=== PATIENT | male | born 1945 | race Caucasian/White ===

== ENCOUNTER 2018-06-12 10:37 | Emergency (ER) | payer MEDICAID ==
[~2018-06-12] VITALS: Wt 80.0 kg
[~2018-06-12 10:37] MED LIST: ACET500C5 PO; AUG875 PO; BACTDS PO; BENA20TA4 PO; CEPH-443 PO; CLIN300C10 PO; DOCU-144 PO; FAMO-96 PO; HUM100VI8 SQ; HYDR-3498 PO; LANT3I SC; PRED10TA PO; SIMV40TA3 PO; SULF500T45 PO
[2018-06-12 10:41] VITALS: RESP 18
--- NOTE | 2018-06-12 12:53 | ERD ---
ER Documentation Chief Complaint Chief Complaint left 2nd toe wound check HPI 72-year-old male with history of diabetes, well controlled, presents to the emergency department, complaining of 4 weeks with left third toe ulcer. The patient has a history of a second toe amputation. No fever, no chills, no purulent discharge. ROS All systems reviewed and are negative except as per history of present illness. Medications Home Meds Active Scripts Silver Sulfadiazine* (Silvadene*) 1% - 20 Gm Cream.gm., 1 APPLIC TOP DAILY, #1 TUB Prov:JESSIE WONG MD 06/12/18 Hydrocodone Bit-Acetaminophen* (Scalf*) 5-325 Mg Tab, 1 TAB PO Q4H PRN for PAIN, #14 TAB Prov:ALESIA BREWER PA-C 12/17/14 Clindamycin Hcl* (Clindamycin Hcl*) 300 Mg Capsule, 300 MG PO Q8 for infection for 7 Days, CAP Prov:ALESIA BREWER PA-C 12/17/14 Acetaminophen* (Tylophen*) 500 Mg Capsule, 1 CAP PO Q6H PRN for PAIN AND OR ELEVATED TEMP, #20 CAP Prov:DESHAWN ATKINS 12/09/14 Sulfamethoxazole-Trimethoprim* (Bactrim* DS) 800-160 Mg Tab, 1 TAB PO BID for 5 Days, TAB Prov:KAROL FISHMAN PA-C 11/29/14 Sulfamethoxazole-Trimethoprim* (Bactrim* DS) 800-160 Mg Tab, 1 TAB PO BID for 10 Days, TAB Prov:EVERETT SCHWAB PA-C 11/13/14 Cephalexin* (Keflex*) 500 Mg Capsule, 500 MG PO QID for 7 Days, CAP Prov:EVERETT SCHWAB PA-C 11/13/14 Docusate Sodium* (Colace*) 100 Mg Cap, 100 MG PO BID, #60 Prov:AMANDA GOMEZ MD 06/08/14 Amoxicillin-Clavulanate K* (Augmentin*) 875 Mg Tab, 875 MG PO BID, #28 TAB Prov:AMANDA GOMEZ MD 06/08/14 Prednisone (Prednisone) 10 Mg Tab, 30 MG PO DAILY, #30 TAB Prov:AMANDA GOMEZ MD 06/08/14 Insulin Glargine* (Lantus*) 100 Unit/Ml Soln, 35 UNIT SC HS, #2 Prov:AMANDA GOMEZ MD 06/08/14 Reported Medications Simvastatin (Simvastatin) 40 Mg Tablet, 40 MG PO DAILY, TAB 06/02/14 Sulfasalazine (Azulfidine) 500 Mg Tab, 500 MG PO TID, TAB 06/02/14 Famotidine* (Pepcid*) Unknown Strength Tablet, PO DAILY, TAB 06/02/14 Hum Insulin Nph/Reg Insulin Hm (Humulin 70-30 Vial) 100 Units/Ml Vial, SQ SLIDING SCALE, VIAL 03/05/14 Benazepril Hcl* (Benazepril Hcl*) 20 Mg Tablet, 20 MG PO DAILY, TAB 03/05/14 Allergies Allergies: Coded Allergies: No Known Allergy (Unverified , 06/02/14) PMhx/Soc History of Surgery: Yes (multiple billateral DIABETIC TOE AMPUTATIONs) Anesthesia Reaction: No Hx Neurological Disorder: Yes ( NEUROPATHY) Hx Respiratory Disorders: No Hx Cardiac Disorders: Yes (HTN / HYPERLIPEDEMIA) Hx Psychiatric Problems: No Hx Miscellaneous Medical Probl: Yes (CROHN'S/ COLITIS / Diabetes II / REFLUX) Hx Alcohol Use: No Hx Substance Use: No Hx Tobacco Use: No Smoking Status: Never smoker Physical Exam Vitals Vital Signs Date Temp Pulse Resp B/P (MAP) Pulse Ox O2 O2 Flow FiO2 Time Delivery Rate 06/12/18 98.3 73 18 110/62 99 10:41 (78) Physical Exam Const: No acute distress Head: Atraumatic Eyes: Normal Conjunctiva ENT: Normal External Ears, Nose and Mouth. Neck: Full range of motion. No meningismus. Resp: Clear to auscultation bilaterally Cardio: Regular rate and rhythm, no murmurs Abd: Soft, non tender, non distended. Normal bowel sounds Skin: No petechiae or rashes Back: No midline or flank tenderness Ext: Left foot: Second toe amputated. Round, clean ulcer on the distal phalanx of the third toe. No evidence of infection. Neur: Awake and alert Psych: Normal Mood and Affect Results 24 hrs Current Medications Medications Dose Sig/Flo Start Time Status Last (Trade) Ordered Route PRN Stop Time Admin Dose Reason Admin Silver 1 applic ONCE ONCE 06/12/18 Sulfadiazine TOP 13:00 (Thermazene 06/12/18 13:01 1% 25 Gm) Procedures/MDM vital signs stable, differential diagnosis include but not limited to: Diabetic ulcer with cellulitis, erysipelas, shingles, abscess. Low suspicion for acute systemic infectious process. Physical examination and clinical presentation consistent most likely with diabe tic ulcer of the third left toe without evidence of infection. During the ED course the patient remained stable, no new complaints. The patient received treatment with topical Silvadene and wound care. Results and clinical impression discussed with the patient who agrees with management. The patient is stable to be treated outpatient and will be discharged home. The patient was instructed to follow up with the primary care provider in the next 48h. If symptoms persist, worsen or new symptoms develop, then patient should return to the ED immediately. Instructions explained and given directly by me to the patient and relatives with acknowledgment and demonstrated understanding. Disclaimer: Inadvertent spelling and grammatical errors are likely due to EHR/di ctation software use and do not reflect on the overall quality of patient care. Also, please note that the electronic time recorded on this note does not necessarily reflect the actual time of the patient encounter. Departure Diagnosis: Primary Impression: Diabetic ulcer of toe of left foot Additional Impression: No infection or colonization with multidrug resistant organism Condition: Stable Additional Instructions: Muchas gerson por [facility] para schuler servicio. Esperamos que en schuler visita a la darnell de emergencia schuler problema medico haya sido solucionado y que se sienta mucho mejor. Para estar seguros que schuler mejoria sigue en proceso, le pedimos el favor de hacer tao kristie de seguimiento medico con schuler doctor primario en los proximos 2-4 capps. Lleve con usted estos documentos y las medicinas recetadas. Si tash sintomas empeoran, NO SE ESPERE, por favor regrese a darnell de emergencia INMEDIATAMENTE. En barbie que usted no tenga un mdico de atencin primaria: Llame al mdico o clnica comunitaria de referencia que aparece abajo gisselle las horas de consultorio para hacer tao kristie para que le vean. CLINICAS: [facility] [phone] [facility] [phone] [facility] [phone] [facility] [phone] [place] [id number] [phone] [facility] [phone] JESSIE STOREY MD Jun 12, 2018 12:53
[2018-06-12] MEDS ORDERED: SILV20CR12 TOP (12:57)
[2018-06-12] MEDS ORDERED: SILVER SULFADIAZINE 1% 25 GM CR TOP ONE (13:00)
[2018-06-12 13:55] VITALS: BP 173/77; PULSE 70
== END 2018-06-12 13:59 | disposition home or self-care (01) ==
LOC: FTE 10:37
DX: E11.621 Type 2 diabetes mellitus with foot ulcer (principal); I10 Essential (primary) hypertension; L97.519 Non-pressure chronic ulcer of other part of right foot with unspecified severity; Z79.4 Long term (current) use of insulin
CPT/HCPCS: Z7502; Z7610; 99283

== ENCOUNTER 2018-11-04 05:44 | Inpatient (IN) | payer MEDICAID ==
[~2018-11-04] VITALS: Ht 175.3 cm; Wt 85.3 kg
[~2018-11-04 05:44] MED LIST changes: +ASPI-817 PO; +ATOR-2 PO; +ATOR20TA38 PO; +BENA40TA56 PO; +ERGO500013 PO; +GABA300C16 PO; +Insulin Glargine SC; +METF-849 PO; +NEBI20TA2 PO; +NOVMIX SC; +NOVO3I SC; +OMEP20CA16 PO; +REPA1TAB14 PO; +SILV20CR12 TOP
[2018-11-04] MEDS ORDERED: ONDANSETRON 4 MG INJ IV PRN ×2 (08:00→09:00)
[2018-11-04] MEDS ORDERED: ACETAMINOPHEN 325 MG TAB PO PRN (08:00)
--- NOTE | 2018-11-04 08:06 | CONS ---
DATE OF ADMISSION: 11/04/2018 DATE OF CONSULTATION: 11/04/2018 TYPE OF CONSULTATION: Vascular HISTORY OF PRESENT ILLNESS: This is a 72-year-old diabetic hypertensive gentleman who had problems w ith his left 5th toe for quite a while, at least several months. About a month ago, it basically bec bubba gangrenous and he went to [facility]. He was there for several days, got some IV antibiotics. Courtney maki was sent home with p.o. ampicillin. His son brought him to the ER here today. Son works in the [facility] [employer] and asked me to take a look at him, because there is exposed bone. The gangrenous area is bro elenita down, the bone from the 5th toe was just sticking out at the base of the toe. The metatarsal hea d is exposed. He has no pain. He has peripheral neuropathy. He has never had any lower extremity a rterial interventions, denies any coronary disease. PAST MEDICAL HISTORY: Significant for again, diabetes, hypertension, peripheral arterial disease, le ft fifth toe gangrene. There is no history of kidney problems, but there have not been any labs done in several years. PAST SURGICAL HISTORY: Lipoma removal from the left chest wall. MEDICATIONS: Consist of: 1. Amoxicillin. 2. Benazepril. 3. Insulin. 4. Simvastatin. He has had a history of Crohn's disease, reflux. SOCIAL HISTORY: He is a nonsmoker. He does not drink or use any illicit drugs. FAMILY HISTORY: Significant for diabetes and hypertension. No history of coronary or peripheral art erial disease. ALLERGIES: No known drug allergies. REVIEW OF SYSTEMS: Currently denies any complaints. He has no chest pain or shortness of breath, no nausea, vomiting, diarrhea. No fever, no chills, no recent weight gain or weight loss. He only brianda alcides came in because his son noticed that the left fifth toe now has broken down and there is expose d bone. PHYSICAL EXAMINATION: GENERAL: He is an elderly gentleman. VITAL SIGNS: He has been afebrile. His blood pressure is 185/80, heart rate is 97, respiratory rate is 18, he is 97% sat. NECK: 2+ radial, brachial, carotid pulses bilaterally. LUNGS: Clear. HEART: Regular rate and rhythm. ABDOMEN: Soft, nontender, nondistended, he is obese. EXTREMITIES: He has good 2+ femoral and popliteal pulses bilaterally. Pedal pulses are not palpable . His feet are warm. On the right, there are no wounds. On the left, he has had the second toe amp utated. It was done many years ago. It is well healed. The fifth toe has just gangrene, right at t he base there is breakdown with exposure of the metatarsal head. There is a little bit of erythema t here around where the breakdown is. No odor, no drainage. IMPRESSION: Left 5th toe gangrene clearly has peripheral arterial disease. I am going to order some arterial studies of the lower extremities. Dr. Oneal is going to be consulted for podiatric evalu ation. I am going to schedule him for an angiogram in a few days and he is getting IV antibiotics. He is going to be admitted to the hospitalist, he is probably going to end up needing a distal bypass . Dictated By: KLEVER PIERRE/BOBO Conf#: [id number] DID#: [id number] CC: DEEPAK ONEAL DPM;*EndCC*
[2018-11-04] MEDS: PIPER-TAZO 3.375 GM IV (PMX) 100 ML IVPB SCH ×3 (09:00→17:43)
[2018-11-04] MEDS ORDERED: DOCUSATE SODIUM 100 MG CAP PO PRN (09:00)
[2018-11-04] MEDS ORDERED: GLUCOSE GEL 15 GRAM TUBE BUCCAL PRN (09:00)
[2018-11-04] MEDS: NEBIVOLOL 5 MG TAB PO SCH (09:00)
[2018-11-04] MEDS ORDERED: DEXTROSE 50% 50 ML SYRINGE IV PRN ×2 (09:00)
[2018-11-04] MEDS ORDERED: SOD CHLORIDE 0.9% 1,000 ML IV ONE (09:00)
[2018-11-04] MEDS ORDERED: BENAZEPRIL 40 MG TAB PO SCH (09:00)
[2018-11-04] MEDS ORDERED: NACL 0.9% 3 ML SYG IV SCH (09:00)
[2018-11-04] MEDS ORDERED: GLUCAGON 1 MG INJ IM PRN (09:00)
[2018-11-04] MEDS ORDERED: GLUCOSE GEL 15 GRAM TUBE PO PRN ×2 (09:00)
[2018-11-04] MEDS ORDERED: VANCOMYCIN IV PER PHARMACY XX SCH (09:00)
[2018-11-04] MEDS: INSULIN GLARGINE [LANTus] (100 UNITS/ML) SYG SC SCH ×2 (09:00→13:36)
--- NOTE | 2018-11-04 09:00 | ERD ---
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 The patient was [facility] ago where he received several days of antibiotics IV. The patient was discharged on oral ampicillin. Unfortunately, despite the outpatient antibiotic regimen, the patient's gangrene and necrosis has progressively been getting worse. At this time, there is exposed bone of the fifth phalanx and metatarsal on the left foot. The patient denies any pain. He does have a history of diabetic neuropathy, but he reports having sensation to his foot. The patient does not endorse a history of peripheral vascular disease. He does not endorse any alleviating or exacerbating factors. The patient is accompanied by his son, who reports that he is a patient of Dr. Lott. The patient denies feeling sick recently. The patient denies fever or chills. The patient has had no headache or vision changes. The patient does not endorse neck or back pain. The patient denies lightheadedness or dizziness. The patient has had no chest pain or trouble breathing. The patient denies nausea or vomiting. The patient denies abdominal pain. The patient denies changes to bowel movements or urination. The patient has had no focal deficits. The patient has had no weakness or numbness or tingling to the face or extremities. ROS All systems reviewed and are negative except as per history of present illness. Medications Home Meds Active Scripts Silver Sulfadiazine* (Silvadene*) 1% - 20 Gm Cream.gm., 1 APPLIC TOP DAILY, #1 TUB Prov:JESSIE WONG MD 06/12/18 Amoxicillin-Clavulanate K* (Augmentin*) 875 Mg Tab, 875 MG PO BID, #28 TAB Prov:AMANDA GOMEZ MD 06/08/14 Reported Medications Insulin Aspart (Novolog Mix (70/30)) 100 Units/Ml Soln, 28 SC with diinner, VIAL 11/04/18 Insulin Aspart (Novolog Mix (70/30)) 100 Units/Ml Soln, 38 SC WITH BREAKFAST, VIAL 11/04/18 Benazepril Hcl* (Benazepril Hcl*) 40 Mg Tablet, 40 MG PO DAILY, #30 TAB 11/04/18 Ergocalciferol (Vitamin D2) (VITAMIN D2) 50,000 Unit Capsule, 84555 UNIT PO weekly for saturdays, CAP 11/04/18 Omeprazole* (Omeprazole*) 20 Mg Capsule.dr, 20 MG PO DAILY, #30 CAP 11/04/18 Aspirin* (Aspirin* EC) 81 Mg Tablet.dr, 81 MG PO DAILY, TAB 11/04/18 Gabapentin* (Gabapentin*) 300 Mg Capsule, 300 MG PO BID, #60 CAP 11/04/18 Nebivolol Hcl* (Bystolic*) 20 Mg Tablet, 20 MG PO DAILY, #30 TAB 11/04/18 Atorvastatin Calcium* (Atorvastatin Calcium*) 20 Mg Tablet, 20 MG PO QHS, #30 TAB 11/04/18 Sulfasalazine (Azulfidine) 500 Mg Tab, 1000 MG PO TID, TAB 06/02/14 Discontinued Reported Medications Simvastatin (Simvastatin) 40 Mg Tablet, 40 MG PO DAILY, TAB 06/02/14 Famotidine* (Pepcid*) Unknown Strength Tablet, PO DAILY, TAB 06/02/14 Hum Insulin Nph/Reg Insulin Hm (Humulin 70-30 Vial) 100 Units/Ml Vial, SQ SLIDING SCALE, VIAL 03/05/14 Benazepril Hcl* (Benazepril Hcl*) 20 Mg Tablet, 20 MG PO DAILY, TAB 03/05/14 Discontinued Scripts Hydrocodone Bit-Acetaminophen* (Campti*) 5-325 Mg Tab, 1 TAB PO Q4H PRN for PAIN, #14 TAB Prov:ALESIA BREWER PA-C 12/17/14 Clindamycin Hcl* (Clindamycin Hcl*) 300 Mg Capsule, 300 MG PO Q8 for infection for 7 Days, CAP Prov:ALESIA BREWERC 12/17/14 Acetaminophen* (Tylophen*) 500 Mg Capsule, 1 CAP PO Q6H PRN for PAIN AND OR ELEVATED TEMP, #20 CAP Prov:DESHAWN ATKINS 12/09/14 Sulfamethoxazole-Trimethoprim* (Bactrim* DS) 800-160 Mg Tab, 1 TAB PO BID for 5 Days, TAB Prov:KAROL FISHMAN PA-C 11/29/14 Sulfamethoxazole-Trimethoprim* (Bactrim* DS) 800-160 Mg Tab, 1 TAB PO BID for 10 Days, TAB Prov:EVERETT SCHWAB PA-C 11/13/14 Cephalexin* (Keflex*) 500 Mg Capsule, 500 MG PO QID for 7 Days, CAP Prov:EVERETT SCHAWB PA-C 11/13/14 Docusate Sodium* (Colace*) 100 Mg Cap, 100 MG PO BID, #60 Prov:AMANDA GOMEZ MD 06/08/14 Prednisone (Prednisone) 10 Mg Tab, 30 MG PO DAILY, #30 TAB Prov:AMANDA GOMEZ MD 06/08/14 Insulin Glargine* (Lantus*) 100 Unit/Ml Soln, 35 UNIT SC HS, #2 Prov:AMANDA GOMEZ MD 06/08/14 Allergies Allergies: Coded Allergies: No Known Allergy (Unverified , 11/04/18) PMhx/Soc History of Surgery: Yes (multiple billateral DIABETIC TOE AMPUTATIONs) Anesthesia Reaction: No Hx Neurological Disorder: Yes ( NEUROPATHY) Hx Respiratory Disorders: No Hx Cardiac Disorders: Yes (HTN / HYPERLIPEDEMIA) Hx Psychiatric Problems: No Hx Miscellaneous Medical Probl: Yes (CROHN'S/ COLITIS / Diabetes II / REFLUX) Hx Alcohol Use: No Hx Substance Use: No Hx Tobacco Use: No Smoking Status: Never smoker FmHx Family History: diabetes Physical Exam Vitals Vital Signs Date Temp Pulse Resp B/P (MAP) Pulse Ox O2 O2 Flow FiO2 Time Delivery Rate 11/04/18 98.1 84 18 164/76 97 Room Air 08:34 (105) 11/04/18 98.6 97 18 185/80 97 05:53 (115) Physical Exam Const: No acute distress Head: Atraumatic Eyes: Normal Conjunctiva ENT: Normal External Ears, Nose and Mouth. Neck: Full range of motion. No meningismus. Resp: Clear to auscultation bilaterally Cardio: Regular rate and rhythm, no murmurs Abd: Soft, non tender, non distended. Normal bowel sounds Skin: No petechiae or rashes Back: No midline or flank tenderness Ext: No cyanosis, or edema. Gangrenous necrotic fifth digit of the left foot with exposed bone at the site of the distal metatarsal. Neur: Awake and alert Psych: Normal Mood and Affect Result Diagram: 11/04/18 0711/04/18 0725 Results 24 hrs Laboratory Tests Test 11/04/18 07:25 White Blood Count 6.8 10^3/ul Red Blood Count 4.00 10^6/ul Hemoglobin 12.1 g/dl Hematocrit 37.6 % Mean Corpuscular Volume 94.0 fl Mean Corpuscular Hemoglobin 30.3 pg Mean Corpuscular Hemoglobin Concent 32.2 g/dl Red Cell Distribution Width 12.8 % Platelet Count 271 10^3/UL Mean Platelet Volume 10.1 fl Immature Granulocytes % 0.400 % Neutrophils % 68.0 % Lymphocytes % 18.1 % Monocytes % 9.4 % Eosinophils % 3.2 % Basophils % 0.9 % Nucleated Red Blood Cells % 0.0 /100WBC Immature Granulocytes # 0.030 10^3/ul Neutrophils # 4.6 10^3/ul Lymphocytes # 1.2 10^3/ul Monocytes # 0.6 10^3/ul Eosinophils # 0.2 10^3/ul Basophils # 0.1 10^3/ul Nucleated Red Blood Cells # 0.0 10^3/ul Erythrocyte Sedimentation Rate 85 mm/Hr Sodium Level 133 mmol/L Potassium Level 5.8 mmol/L Chloride Level 97 mmol/L Carbon Dioxide Level 27 mmol/L Anion Gap 9 Blood Urea Nitrogen 20 mg/dl Creatinine 1.31 mg/dl Est Glomerular Filtrat Rate mL/min mL/min Glucose Level 335 mg/dl Calcium Level 9.2 mg/dl C-Reactive Protein 1.9 mg/dl Current Medications Medications Dose Sig/Flo Start Time Status Last (Trade) Ordered Route PRN Stop Time Admin Dose Reason Admin Ondansetron 4 mg BRIDGE ORDER 11/04/18 HCl (Zofran PRN IV 08:00 Inj) NAUSEA/VOMITI 11/05/18 07:59 NG 650 mg ER BRIDGE 11/04/18 Acetaminophen PRN PO 08:00 (Tylenol .MILD PAIN 11/05/18 07:59 Tab) 1-3 OR TEMP Aspirin 81 mg DAILY PO 11/04/18 (Halfprin) 09:00 20 mg QHS PO 11/04/18 Atorvastatin 21:00 Calcium (Lipitor) Benazepril 40 mg DAILY PO 11/04/18 DC HCl 09:00 (Lotensin) 11/04/18 09:00 50,000 unit Sa PO 11/09/18 Ergocalcifero 09:00 l (Drisdol) Gabapentin 300 mg BID PO 11/04/18 (Neurontin) 09:00 20 mg DAILY PO 11/04/18 UNV Miscellaneous 09:00 Medication (Bystolic) 20 mg DAILY PO 11/04/18 UNV Miscellaneous 09:00 Information Hydralazine 25 mg TID PO 11/04/18 UNV HCl 09:00 (Apresoline) Clonidine 0.1 mg Q6H PRN 11/04/18 (Catapres) PO SBP>160 09:00 IV Flush 3 ml PER 11/04/18 UNV (NS 3 ml) PROTOCOL IV 09:00 Ondansetron 4 mg Q6H PRN 11/04/18 UNV HCl (Zofran IV 09:00 Inj) NAUSEA/VOMITI NG 650 mg Q6H PRN 11/04/18 Acetaminophen PO .PAIN 1-3 09:00 (Tylenol OR TEMP Tab) 1 tab Q6H PRN 11/04/18 UNV Acetaminophen PO .MOD PAIN 09:00 / 4-6 Hydrocodone Bitart (Campti (5/325)) Docusate 100 mg Q12H PRN 11/04/18 Sodium PO 09:00 (Colace) .CONSTIPATION Heparin 5,000 unit Q12 SC 11/04/18 UNV Sodium 09:00 (Porcine) (Heparin (5000 Units/1ml)) Discontinue ONCE ONCE 11/04/18 UNV Miscellaneous current oral XX 09:00 sulfonylur... 11/04/18 09:01 Information (* Miscellaneous Pharmacy Order) Diagnostic 1 ea 02 XX 11/05/18 UNV Test (Pha) 02:00 (Accu-Chek) Insulin 26 units DAILY@0800 11/04/18 UNV Glargine SC 09:00 (Lantus) Insulin 4 unit WITH MEALS 11/04/18 UNV Aspart SC 12:00 (Novolog Insulin Pen) ONCE ONCE 11/04/18 UNV Miscellaneous HYPOGLYCEMIA XX 09:00 PROTOCOL 11/04/18 09:01 Information w... (* Miscellaneous Pharmacy Order) Insulin NOVOLOG WITH MEALS 11/04/18 UNV Aspart *MILD* BEDTIME SC 12:00 (Novolog ALGORITHM Insulin Pen) Discontinue ONCE ONCE 11/04/18 UNV Miscellaneous all previ... XX 09:00 11/04/18 09:01 Information (* Miscellaneous Pharmacy Order) Piperacillin 100 ml @ Q6 IVPB 11/04/18 UNV Sod/ 200 mls/hr 12:00 Tazobactam Sod Vancomycin VANCOMYCIN PER 11/04/18 UNV HCl (Vanco PER PHARMACY PROTOCOL XX 09:00 Iv Per Pharmacy) Procedures/MDM MDM The patient's presentation warrants further investigation. Previous medical records, if available, were reviewed. LABS The patient's laboratory testing was obtained and reviewed. No emergent treatment was required unless described below. CBC: No E/o systemic infection or thrombocytopenia. Normocytic anemia, not emergent. Chemistry: No E/o severe acidosis or alkalosis or liver disease. Mild hyperkalemia, not emergent. Elevated creatinine, likely chronic kidney disease. Hyperglycemia without DKA. ESR/CRP: Elevated IMAGING Imaging and Radiology interpretation reviewed. CXR FINDINGS: The patient is status post amputation of the left second distal metatarsal and phalanges. In addition the patient is status post amputation of the left fifth middle and distal phalanges. Severe degenerative changes are noted of the first metatarsal phalangeal joint and the first interphalangeal joint. Soft tissue swelling is noted of the left great toe. No definite evidence for acute fractures dislocations or osseous destruction is currently noted to suggest osteomyelitis at this time. MRI with contrast is a more sensitive imaging modality to diagnosis. Vascular calcifications are present. Calcaneal spurs are noted at the Achilles tendon and the plantar surface. IMPRESSION: 1. No acute fractures , dislocations or evidence for osseous destruction to suggest osteomyelitis at this time. Consider MR with contrast as a more sensitive imaging modality for osteomyelitis. 2. Status post remote amputation of the left second distal metatarsal and phalanges of the left fifth middle and distal phalanges 3. Vascular calcifications 4. Severe degenerative changes 5. Vascular calcifications 6. Calcaneal spurs Electronically viewed and signed by Ana Paula Doherty MD, MD on 11/04/2018 07:42 TREATMENT/DISPOSITION The patient presents for failed outpatient management of a left fifth digit diabetic ulcer with gangrene and necrosis and now exposed bone. The patient was given a dose of vancomycin in the emergency department. The patient's vascular surgeon, Dr. Lott, was consulted on the case. He evaluated the patient in the emergency department and will follow the case in the hospital. Dr. Oneal of podiatry was also consulted to evaluate the patient. There is also evidence of chronic kidney disease with mild hyperkalemia. This does not require emergent treatment. This may be further assessed in the hospital. The patient does have hyperglycemia, but there is no evidence of DKA. The patient was given IV fluids in the emergency department as well. ADMISSION At this time, I feel that the patient requires admission for further evaluation and management. The patient will be admitted to panel in accordance with the patient's insurance. The patient was accepted by Dr. Jaimes at 7:32 AM on November 04, 2018. Disclaimer: Inadvertent spelling and grammatical errors are likely due to EHR/dictation software use and do not reflect on the overall quality of patient care. Note that the electronic time recorded on this note does not necessarily reflect the actual time of the patient encounter. Departure Diagnosis: Primary Impression: Gangrene of toe of left foot Additional Impressions: Diabetic ulcer of toe of left foot with necrosis of bone Diabetes mellitus type: other specified (including NOEMI) Qualified Codes: E13.621 - Other specified diabetes mellitus with foot ulcer; L97.524 - Non- pressure chronic ulcer of other part of left foot with necrosis of bone Failure of outpatient treatment Elevated erythrocyte sedimentation rate Elevated C-reactive protein (CRP) Chronic kidney disease Chronic kidney disease stage: unspecified stage Qualified Codes: N18.9 - Chronic kidney disease, unspecified Hyperkalemia Normocytic anemia Condition: Serious NADINE POWELL MD Nov 04, 2018 08:59
--- NOTE | 2018-11-04 09:01 | HP ---
Date/Time of Note Date/Time of Note DATE: 11/04/18 TIME: 08:51 Assessment/Plan VTE Prophylaxis Pharmacological prophylaxis: heparin Assessment/Plan Hospital Course SUBJECTIVE: Seen patient in ER. No acute distress. OBJECTIVE: Vital signs-see below PHYSICAL EXAM: Constitutional: Adequately built,not in acute distress. HEENT: Head atraumatic and normocephalic. Eyes: Extraocular muscles intact. Anicteric sclerae. Pupils equal bilaterally, reactive to light. NECK: Supple without lymph node. CHEST: Clear and good breath sounds equally. No wheezing. No rhonchi. HEART: S1, S2. Regular rate and rhythm. ABDOMEN: Soft/non tender with no rebound tenderness. Bowel sounds were present. EXTREMITIES: Left second toe amputated. Right fifth toe with gangrene/exposure of bone. Erythema/swelling around the base.no DP pulse appreciated both side. Palpable PT bilaterally. No cyanosis, clubbing or edema. NEUROLOGIC: Alert and oriented x3. No focal deficit. No sensory deficit. PSYCHOSOCIAL: No signs of depression. INTEGUMENTARY: No open wounds. ASSESSMENT AND PLAN:72 yo M w/htn, dm2, toe amputations, neuropathy,dlp, PAD, rt 5th toe ulcer here w/worsening rt 5th toe gangrenosus ulcer.. Right fifth toe gangrenous ulcer -Appreciate vascular recommendation and plan is arterial studies with tentative plan for angiogram with likely need for bypass -We will also request podiatry consultation -MRI to rule out osteomyelitis -Start empiric ABX regimen with Zosyn/vancomycin -Wound cultures, blood cultures to follow -Wound care -Glycemic management Poorly controlled DMII -Basal/bolus insulin -A1c Acute kidney injury -Patient likely may have CKD -Obtain renal ultrasound -Hold SHANAE inhibitors -Gentle fluids Hyperkalemia likely 2/2 SHANAE inhibitors -Hold SHANAE inhibitors and monitor K level closely. -We will give a dose of Kayexalate Essential hypertension -Hold lisinopril in light of acute kidney injury and hyperkalemia -Continue beta-blockers with addition of hydralazine -PRN clonidine Peripheral neuropathy -Resume gabapentin Dyslipidemia -Resume statin Chronic anemia -Stable H&H. Monitor DVT prophylaxis: Heparin PUD prophylaxis: PPI/H2 blockers Rest of the management depend on clinical course. Approximately 60 m spent on this history and physical. Patient was seen in collaboration with . Result Diagram: 6/17/19 0725 11/04/18 0725 Results 24hrs Laboratory Tests Test 11/04/18 07:25 White Blood Count 6.8 Red Blood Count 4.00 L Hemoglobin 12.1 L Hematocrit 37.6 L Mean Corpuscular Volume 94.0 Mean Corpuscular Hemoglobin 30.3 Mean Corpuscular Hemoglobin Concent 32.2 Red Cell Distribution Width 12.8 Platelet Count 271 Mean Platelet Volume 10.1 Immature Granulocytes % 0.400 Neutrophils % 68.0 Lymphocytes % 18.1 Monocytes % 9.4 Eosinophils % 3.2 Basophils % 0.9 Nucleated Red Blood Cells % 0.0 Immature Granulocytes # 0.030 Neutrophils # 4.6 Lymphocytes # 1.2 Monocytes # 0.6 Eosinophils # 0.2 Basophils # 0.1 Nucleated Red Blood Cells # 0.0 Erythrocyte Sedimentation Rate 85 H Sodium Level 133 L Potassium Level 5.8 H Chloride Level 97 Carbon Dioxide Level 27 Anion Gap 9 Blood Urea Nitrogen 20 Creatinine 1.31 H Est Glomerular Filtrat Rate mL/min Glucose Level 335 H Calcium Level 9.2 C-Reactive Protein 1.9 H HPI/ROS Admit Date/Time Admit Date/Time Hx of Present Illness This is a 72-year-old Dominican-speaking male with a past medical history of type 2 diabetes, Dyslipidemia, peripheral arterial disease, hypertension, diabetic neuropathy, left second toe amputation, chronic left fifth toe ulcer, presented to the emergency room with worsening left fifth toe ulcers. Patient was apparently admitted at [facility] where he was treated with IV antibiotics and was sent home. However, patient's wound did not get improved and he started to notice exposed bone with development of gangrene. Patient denied numbness, tingling, fever, chills, dizziness, headache, chest pain, palpi tation, nausea, vomiting, abdominal pain, diarrhea, constipation or other constitutional symptoms. Initial labs showed hemoglobin 12.1, hematocrit 37.6, sodium 133, potassium 5.8, creatinine 1.31, glucose 335 and a C-reactive protein 1.9. Foot x-ray showed no fractures or osseous destruction to suggest any osteomyelitis. ROS A 12 point review of system was assessed and is negative other than what is mentioned in HPI PMH/Family/Social Past Medical History See HPI Medications Current Medications Ondansetron HCl (Zofran Inj) 4 mg BRIDGE ORDER PRN IV NAUSEA/VOMITING; Start 11/04/18 at 08:00; Stop 11/05/18 at 07:59 Acetaminophen (Tylenol Tab) 650 mg ER BRIDGE PRN PO .MILD PAIN 1-3 OR TEMP; Start 11/04/18 at 08:00; Stop 11/05/18 at 07:59 Aspirin (Halfprin) 81 mg DAILY PO ; Start 11/04/18 at 09:00 Atorvastatin Calcium (Lipitor) 20 mg QHS PO ; Start 11/04/18 at 21:00 Ergocalciferol (Drisdol) 50,000 unit SUNDAY PO ; Start 11/04/18 at 09:00; Status UNV Gabapentin (Neurontin) 300 mg BID PO ; Start 11/04/18 at 09:00; Status UNV Miscellaneous Medication (Bystolic) 20 mg DAILY PO ; Start 11/04/18 at 09:00; Status UNV Miscellaneous Information 20 mg DAILY PO ; Start 11/04/18 at 09:00; Status UNV Hydralazine HCl (Apresoline) 25 mg TID PO ; Start 11/04/18 at 09:00; Status UNV Clonidine (Catapres) 0.1 mg Q6H PRN PO SBP>160; Start 11/04/18 at 09:00 Coded Allergies: No Known Allergy (Unverified , 11/04/18) Past Surgical History See HPI Social History Denied history of alcohol, smoking or illicit drug use Smoking Status: Never smoker Exam/Review of Systems Vital Signs Vitals Vital Signs Date Temp Pulse Resp B/P (MAP) Pulse Ox O2 O2 Flow FiO2 Time Delivery Rate 11/04/18 98.1 84 18 164/76 97 Room Air 08:34 (105) KARLA LAIRD NP Nov 04, 2018 09:01
[2018-11-04] MEDS ORDERED: VANCOMYCIN HCL 1.75 GM in SOD CHLORIDE 0.9% 500 ML IVPB SCH (10:00)
[2018-11-04 10:15] VITALS: BP 99/57; PULSE 72; RESP 18
[2018-11-04 10:21] VITALS: Ht 175.3 cm; Wt 85.3 kg
[2018-11-04] MEDS ORDERED: NA POLYST SULFON 15 GM/60 ML BTL PO ONE (10:30)
[2018-11-04] MEDS ORDERED: SODIUM POLYSTYRENE 15 GM KIT (POWDER + SORBITOL) PO ONE (10:30)
[2018-11-04] MEDS ORDERED: SOD CHLORIDE 0.9% 1,000 ML IV SCH (10:30)
[2018-11-04] MEDS: INSULIN ASPART [NOVOLOG] 3 ML PEN SC SCH ×5 (12:35→20:35)
[2018-11-04] MEDS: HEPARIN 5,000 UNIT/1 ML VIAL SC SCH ×2 (12:41→20:39)
[2018-11-04] MEDS: PANTOPRAZOLE (EC) 40 MG TAB PO SCH (12:42)
[2018-11-04] MEDS: GABAPENTIN 300 MG CAP PO SCH ×2 (12:42→20:36)
[2018-11-04] MEDS: ASPIRIN (EC) 81 MG TAB PO SCH (12:42)
--- NOTE | 2018-11-04 13:40 | CONS ---
Assessment/Plan Assessment/Plan Assessment/Plan (Daily) Left foot gangrene Left foot diabetic ulcer PAD DM2 insulin dependent with peripheral neuropathy Hx of left foot 2nd digit amputation Dyslipidemia HTN Plan: Patient was seen and examined. Reviewed X-ray findings with no sign of soft tissue gas/emphysema. Appreciate vascular surgery input and patient is planned for intervention. Patient will benefit from left 5th digit amputation after vascular procedure. Continue with IV abx per recommendations. Daily betadine d ressing changes to the left foot and offload with pillows to prevent heel ulcerations. Wound cultures to be obtained. Tight glycemic control. Consultation Date/Type/Reason Admit Date/Time Date/Time of Note DATE: 11/04/18 TIME: 13:37 Hx of Present Illness 72 y/o diabetic M patient presents to the floor with left foot dry gangrene of the left 5th digit. Per patient's son the wound began approximately 3 weeks ago. He had attempted conservative management with antibiotics and was previously seen at [facility] for treatment. Over time, patient's son reported that the wound was not improving and brought patient into the hospital at [facility]. The son reported that since yesterday was Father's day he waited and extra day to bring patient to hospital. The patient's son relates that his father did receive new diabetic shoe gear which may have caused friction irritation leading to the ulceration. The patient denies f/c/n/v no chest pains or shortness of breath. ROS negative except for HPI Past Medical History type 2 diabetes, Dyslipidemia, peripheral arterial disease, hypertension, diabetic neuropathy, left second toe amputation, chronic left fifth toe ulcer Home Meds Active Scripts Silver Sulfadiazine* (Silvadene*) 1% - 20 Gm Cream.gm., 1 APPLIC TOP DAILY, #1 TUB Prov:JESSIE WONG MD 06/12/18 Amoxicillin-Clavulanate K* (Augmentin*) 875 Mg Tab, 875 MG PO BID, #28 TAB Prov:AMANDA GOMEZ MD 06/08/14 Reported Medications Insulin Aspart (Novolog Mix (70/30)) 100 Units/Ml Soln, 28 SC with diinner, VIAL 11/04/18 Insulin Aspart (Novolog Mix (70/30)) 100 Units/Ml Soln, 38 SC WITH BREAKFAST, VIAL 11/04/18 Benazepril Hcl* (Benazepril Hcl*) 40 Mg Tablet, 40 MG PO DAILY, #30 TAB 11/04/18 Ergocalciferol (Vitamin D2) (VITAMIN D2) 50,000 Unit Capsule, 94512 UNIT PO weekly for saturdays, CAP 11/04/18 Omeprazole* (Omeprazole*) 20 Mg Capsule.dr, 20 MG PO DAILY, #30 CAP 11/04/18 Aspirin* (Aspirin* EC) 81 Mg Tablet.dr, 81 MG PO DAILY, TAB 11/04/18 Gabapentin* (Gabapentin*) 300 Mg Capsule, 300 MG PO BID, #60 CAP 11/04/18 Nebivolol Hcl* (Bystolic*) 20 Mg Tablet, 20 MG PO DAILY, #30 TAB 11/04/18 Atorvastatin Calcium* (Atorvastatin Calcium*) 20 Mg Tablet, 20 MG PO QHS, #30 TAB 11/04/18 Sulfasalazine (Azulfidine) 500 Mg Tab, 1000 MG PO TID, TAB 06/02/14 Discontinued Reported Medications Simvastatin (Simvastatin) 40 Mg Tablet, 40 MG PO DAILY, TAB 06/02/14 Famotidine* (Pepcid*) Unknown Strength Tablet, PO DAILY, TAB 06/02/14 Hum Insulin Nph/Reg Insulin Hm (Humulin 70-30 Vial) 100 Units/Ml Vial, SQ SLIDING SCALE, VIAL 03/05/14 Benazepril Hcl* (Benazepril Hcl*) 20 Mg Tablet, 20 MG PO DAILY, TAB 03/05/14 Discontinued Scripts Hydrocodone Bit-Acetaminophen* (Abrams*) 5-325 Mg Tab, 1 TAB PO Q4H PRN for PAIN, #14 TAB Prov:ALESIA BREWER PA-C 12/17/14 Clindamycin Hcl* (Clindamycin Hcl*) 300 Mg Capsule, 300 MG PO Q8 for infection for 7 Days, CAP Prov:ALESIA BREWER PA-C 12/17/14 Acetaminophen* (Tylophen*) 500 Mg Capsule, 1 CAP PO Q6H PRN for PAIN AND OR ELEVATED TEMP, #20 CAP Prov:DESHAWN ATKINS 12/09/14 Sulfamethoxazole-Trimethoprim* (Bactrim* DS) 800-160 Mg Tab, 1 TAB PO BID for 5 Days, TAB Prov:KAROL FISHMAN PA-C 11/29/14 Sulfamethoxazole-Trimethoprim* (Bactrim* DS) 800-160 Mg Tab, 1 TAB PO BID for 10 Days, TAB Prov:EVERETT SCHWAB PA-C 11/13/14 Cephalexin* (Keflex*) 500 Mg Capsule, 500 MG PO QID for 7 Days, CAP Prov:EVERETT SCHWAB PA-C 11/13/14 Docusate Sodium* (Colace*) 100 Mg Cap, 100 MG PO BID, #60 Prov:AMANDA GOMEZ MD 06/08/14 Prednisone (Prednisone) 10 Mg Tab, 30 MG PO DAILY, #30 TAB Prov:AMANDA GOMEZ MD 06/08/14 Insulin Glargine* (Lantus*) 100 Unit/Ml Soln, 35 UNIT SC HS, #2 Prov:AMANDA GOMEZ MD 06/08/14 Medications Current Medications Aspirin (Halfprin) 81 mg DAILY PO ; Start 11/04/18 at 09:00 Atorvastatin Calcium (Lipitor) 20 mg QHS PO ; Start 11/04/18 at 21:00 Ergocalciferol (Drisdol) 50,000 unit Sa PO ; Start 11/09/18 at 09:00 Gabapentin (Neurontin) 300 mg BID PO ; Start 11/04/18 at 09:00 Miscellaneous Medication (Bystolic) 20 mg DAILY PO ; Start 11/04/18 at 09:00 Pantoprazole (Protonix Tab) 40 mg DAILY PO ; Start 11/04/18 at 09:00 Hydralazine HCl (Apresoline) 25 mg TID PO ; Start 11/04/18 at 09:00 Clonidine (Catapres) 0.1 mg Q6H PRN PO SBP>160; Start 11/04/18 at 09:00 IV Flush (NS 3 ml) 3 ml PER PROTOCOL IV ; Start 11/04/18 at 09:00 Ondansetron HCl (Zofran Inj) 4 mg Q6H PRN IV NAUSEA/VOMITING; Start 11/04/18 at 09:00 Acetaminophen (Tylenol Tab) 650 mg Q6H PRN PO .PAIN 1-3 OR TEMP; Start 11/04/18 at 09:00 Acetaminophen/ Hydrocodone Bitart (Abrams (5/325)) 1 tab Q6H PRN PO .MOD PAIN 4- 6; Start 11/04/18 at 09:00 Docusate Sodium (Colace) 100 mg Q12H PRN PO .CONSTIPATION; Start 11/04/18 at 09:00 Heparin Sodium (Porcine) (Heparin (5000 Units/1ml)) 5,000 unit Q12 SC ; Start 11/04/18 at 09:00 Diagnostic Test (Pha) (Accu-Chek) 1 ea 02 XX ; Start 11/05/18 at 02:00 Insulin Glargine (Lantus) 26 units DAILY@0800 SC ; Start 11/04/18 at 09:00 Insulin Aspart (Novolog Insulin Pen) 4 unit WITH MEALS SC ; Start 11/04/18 at 11:30 Insulin Aspart (Novolog Insulin Pen) NOVOLOG *MILD* ALGORITHM WITH MEALS BEDTIME SC ; Start 11/04/18 at 12:00 Piperacillin Sod/ Tazobactam Sod 100 ml @ 200 mls/hr Q6 IVPB ; Start 11/04/18 at 09:00 Vancomycin HCl (Vanco Iv Per Pharmacy) VANCOMYCIN PER PHARMACY PER PROTOCOL XX ; Start 11/04/18 at 09:00 Miscellaneous Information 1 ea NOTE XX ; Start 11/04/18 at 09:00 Glucose (Glutose) 15 gm Q15M PRN PO DECREASED GLUCOSE; Start 11/04/18 at 09:00 Glucose (Glutose) 22.5 gm Q15M PRN PO DECREASED GLUCOSE; Start 11/04/18 at 09:00 Dextrose (D50w Syringe) 25 ml Q15M PRN IV DECREASED GLUCOSE; Start 11/04/18 at 09:00 Dextrose (D50w Syringe) 50 ml Q15M PRN IV DECREASED GLUCOSE; Start 11/04/18 at 09:00 Glucagon (Glucagen) 1 mg Q15M PRN IM DECREASED GLUCOSE; Start 11/04/18 at 09:00 Glucose (Glutose) 15 gm Q15M PRN BUCCAL DECREASED GLUCOSE; Start 11/04/18 at 09:00 Vancomycin HCl 1.75 gm/Sodium Chloride 500 ml @ 125 mls/hr ONCE IVPB ; Start 11/04/18 at 10:00; Stop 11/04/18 at 13:59 Vancomycin HCl 1.25 gm/Sodium Chloride 250 ml @ 83.333 mls/ hr Q24H IVPB ; Start 11/05/18 at 10:00 Sodium Chloride 1,000 ml @ 75 mls/hr [id number] IV Last administered on 11/04/18at 12:02; Admin Dose 75 MLS/HR; Start 11/04/18 at 10:30; Stop 11/04/18 at 23:49 Allergies: Coded Allergies: No Known Allergy (Unverified , 11/04/18) Past Surgical History left 2nd digit amputation. Family History Significant Family History: no pertinent family hx Social History Smoking Status: Never smoker Exam/Review of Systems Exam Vitals Vital Signs Date Temp Pulse Resp B/P (MAP) Pulse Ox O2 O2 Flow FiO2 Time Delivery Rate 11/04/18 97.8 72 18 99/57 (71 96 10:15 11/04/18 Room Air 08:34 Exam Unable to palpate DP/PT and popliteal pulses Absent protective sensations Left foot 5th digit gangrene with exposed bone, mild erythema surrounding ulcer site and mild purulence appreciated to the ulcer site. Measured 2 x 1.5 x 0.5cm fibronecrotic wound bed. No proximal streaking Left 2nd digit amputation site appreciated. Non invasive arterial studies IMPRESSION: 1. Diffuse blunted waveforms on the left compatible with diffuse vascular resistance and/or upstream stenosis. 2. Moderate stenosis of the mid right SFA with blunted waveforms distally. Results Result Diagram: 11/04/18 0725 11/04/18 0725 Results 24hrs Laboratory Tests Test 11/04/18 07:25 11/04/18 12:05 White Blood Count 6.8 Red Blood Count 4.00 L Hemoglobin 12.1 L Hematocrit 37.6 L Mean Corpuscular Volume 94.0 Mean Corpuscular Hemoglobin 30.3 Mean Corpuscular Hemoglobin Concent 32.2 Red Cell Distribution Width 12.8 Platelet Count 271 Mean Platelet Volume 10.1 Immature Granulocytes % 0.400 Neutrophils % 68.0 Lymphocytes % 18.1 Monocytes % 9.4 Eosinophils % 3.2 Basophils % 0.9 Nucleated Red Blood Cells % 0.0 Immature Granulocytes # 0.030 Neutrophils # 4.6 Lymphocytes # 1.2 Monocytes # 0.6 Eosinophils # 0.2 Basophils # 0.1 Nucleated Red Blood Cells # 0.0 Erythrocyte Sedimentation Rate 85 H Sodium Level 133 L Potassium Level 5.8 H Chloride Level 97 Carbon Dioxide Level 27 Anion Gap 9 Blood Urea Nitrogen 20 Creatinine 1.31 H Est Glomerular Filtrat Rate mL/min Glucose Level 335 H Calcium Level 9.2 C-Reactive Protein 1.9 H Bedside Glucose 242 H Medications Medication Current Medications Aspirin (Halfprin) 81 mg DAILY PO ; Start 11/04/18 at 09:00 Atorvastatin Calcium (Lipitor) 20 mg QHS PO ; Start 11/04/18 at 21:00 Ergocalciferol (Drisdol) 50,000 unit Sa PO ; Start 11/09/18 at 09:00 Gabapentin (Neurontin) 300 mg BID PO ; Start 11/04/18 at 09:00 Miscellaneous Medication (Bystolic) 20 mg DAILY PO ; Start 11/04/18 at 09:00 Pantoprazole (Protonix Tab) 40 mg DAILY PO ; Start 11/04/18 at 09:00 Hydralazine HCl (Apresoline) 25 mg TID PO ; Start 11/04/18 at 09:00 Clonidine (Catapres) 0.1 mg Q6H PRN PO SBP>160; Start 11/04/18 at 09:00 IV Flush (NS 3 ml) 3 ml PER PROTOCOL IV ; Start 11/04/18 at 09:00 Ondansetron HCl (Zofran Inj) 4 mg Q6H PRN IV NAUSEA/VOMITING; Start 11/04/18 at 09:00 Acetaminophen (Tylenol Tab) 650 mg Q6H PRN PO .PAIN 1-3 OR TEMP; Start 11/04/18 at 09:00 Acetaminophen/ Hydrocodone Bitart (Abrams (5/325)) 1 tab Q6H PRN PO .MOD PAIN 4- 6; Start 11/04/18 at 09:00 Docusate Sodium (Colace) 100 mg Q12H PRN PO .CONSTIPATION; Start 11/04/18 at 09:00 Heparin Sodium (Porcine) (Heparin (5000 Units/1ml)) 5,000 unit Q12 SC ; Start 11/04/18 at 09:00 Diagnostic Test (Pha) (Accu-Chek) 1 ea 02 XX ; Start 11/05/18 at 02:00 Insulin Glargine (Lantus) 26 units DAILY@0800 SC ; Start 11/04/18 at 09:00 Insulin Aspart (Novolog Insulin Pen) 4 unit WITH MEALS SC ; Start 11/04/18 at 11:30 Insulin Aspart (Novolog Insulin Pen) NOVOLOG *MILD* ALGORITHM WITH MEALS BEDTIME SC ; Start 11/04/18 at 12:00 Piperacillin Sod/ Tazobactam Sod 100 ml @ 200 mls/hr Q6 IVPB ; Start 11/04/18 at 09:00 Vancomycin HCl (Vanco Iv Per Pharmacy) VANCOMYCIN PER PHARMACY PER PROTOCOL XX ; Start 11/04/18 at 09:00 Miscellaneous Information 1 ea NOTE XX ; Start 11/04/18 at 09:00 Glucose (Glutose) 15 gm Q15M PRN PO DECREASED GLUCOSE; Start 11/04/18 at 09:00 Glucose (Glutose) 22.5 gm Q15M PRN PO DECREASED GLUCOSE; Start 11/04/18 at 09:00 Dextrose (D50w Syringe) 25 ml Q15M PRN IV DECREASED GLUCOSE; Start 11/04/18 at 09:00 Dextrose (D50w Syringe) 50 ml Q15M PRN IV DECREASED GLUCOSE; Start 11/04/18 at 09:00 Glucagon (Glucagen) 1 mg Q15M PRN IM DECREASED GLUCOSE; Start 11/04/18 at 09:00 Glucose (Glutose) 15 gm Q15M PRN BUCCAL DECREASED GLUCOSE; Start 11/04/18 at 09:00 Vancomycin HCl 1.75 gm/Sodium Chloride 500 ml @ 125 mls/hr ONCE IVPB ; Start 11/04/18 at 10:00; Stop 11/04/18 at 13:59 Vancomycin HCl 1.25 gm/Sodium Chloride 250 ml @ 83.333 mls/ hr Q24H IVPB ; Start 11/05/18 at 10:00 Sodium Chloride 1,000 ml @ 75 mls/hr [id number] IV Last administered on 11/04/18at 12:02; Admin Dose 75 MLS/HR; Start 11/04/18 at 10:30; Stop 11/04/18 at 23:49 IVELISSE BLACKWELL DPM Nov 04, 2018 13:40
[2018-11-04 14:48] VITALS: BP 128/64; PULSE 79; RESP 18
--- NOTE | 2018-11-04 16:01 | CONS ---
DATE OF ADMISSION: 11/04/2018 DATE OF CONSULTATION: 11/04/2018 NEPHROLOGY CONSULTATION REASON FOR CONSULTATION: Acute kidney injury, hyperkalemia. REQUESTING PHYSICIAN: Ruma Laird, nurse practitioner. HISTORY OF PRESENT ILLNESS: This is a 72-year-old male with a past medical history of diabetes, dysl ipidemia, history of peripheral arterial disease, hypertension, diabetic neuropathy, a questionable h istory of CKD, presents to [facility] for evaluation of left toe wound. The patien t noted to have ulceration and gangrene of his left toe after failed outpatient management. The isidro ent previously was on antibiotic therapy. The patient's symptoms progressively worsened including wo rsening pain. As a result, he came to the emergency room. Upon arrival, patient had no fevers, chil ls, no nausea, vomiting, no shortness of breath. The patient was initiated on antibiotic therapy and admitted to telemetry med/surg for further evaluation. In terms of patient's renal history, the patient has a prior history of acute kidney injury in 2013. The patient's prior baseline creatinine in May 2014 was 0.94 mg/dL. The patient himself denies any hemoptysis, hematemesis or hematochezia. PAST MEDICAL HISTORY: As stated above, history of diabetes, history of hypertension, history of left toe gangrene, history of dyslipidemia, history of chronic colitis. PAST SURGICAL HISTORY: Multiple diabetic toe amputations. FAMILY HISTORY: No family history of kidney disease. SOCIAL HISTORY: He does not drink, smoke or do drugs. MEDICATIONS: The patient's medications have been reviewed. REVIEW OF SYSTEMS: A 14-point review of systems conducted. Pertinent positives stated in HPI, other yeboah negative. PHYSICAL EXAMINATION: VITAL SIGNS: Blood pressure is 99/57, respirations 18, pulse 72, temperature 97.8. HEENT: Head is normocephalic. Pupils are reactive to light. NECK: Supple. HEART: Regular rate. LUNGS: Show diminished breath sounds at the base. ABDOMEN: Soft, nontender to palpation without rebound or guarding. EXTREMITIES: Negative for clubbing, cyanosis, no edema. DERMATOLOGIC: No rashes. MUSCULOSKELETAL: The patient has noted dressing over the left foot gangrene diabetic ulcer. Dressin g is clean, dry, intact. NEUROLOGIC: No focal deficits. LABORATORY DATA: Has been reviewed. ASSESSMENT AND PLAN: This is a 72-year-old male who presents with: 1. Nonoliguric acute kidney injury with unknown baseline creatinine. The patient's prior creatinine in 2014 was 0.79. Etiology of acute kidney injury may be multifactorial secondary to hemodynamics, SHANAE inhibitor effect. Plan at this point is to do a full evaluation. Will check UA with microanalys is, check urine electrolytes, will check a renal ultrasound to evaluate renal parenchyma. Otherwise, continue current treatment plan, supportive care, renally dose all meds. Agree with discontinuing A CE inhibitor. Continue gentle fluid challenge. Also, check a renal ultrasound to rule out obstructi on. 2. Hyperkalemia. Etiology is secondary to SHANAE inhibitor in conjunction with hyperglycemia. Recomme ndation is to obtain euglycemic control. Agree with holding SHANAE inhibitor at this time. The patient is status post Kayexalate, is currently on IV fluids. Will repeat renal panel. 3. Hyponatremia secondary to hyperglycemia. Recommend to obtain euglycemia, which will help correct sodium levels. Will continue to monitor. 4. Anemia. Monitor hemoglobin and hematocrit levels. 5. Mineral bone disorder. Monitor calcium and phosphorus levels. 6. Right fifth toe gangrenous ulcer. The patient has been seen by podiatry and may require amputati on. Continue current medical management. Continue antibiotic therapy. 7. Diabetes. Continue current insulin regimen, adjust as needed. 8. Hypertension. Continue current blood pressure regimen, hold SHANAE inhibitor at this time. 9. Dyslipidemia. Continue statin therapy. 10. Peripheral neuropathy. Continue Neurontin. Thank you, Ruma, for this interesting consult. It will be a pleasure to follow the patient with you throughout the hospital course. Dictated By: JEAN CLAUDE LARIOS DO NR/BOBO Conf#: [id number] DID#: [id number] CC: RUMA LAIRD NP; TOMASA SCOTT;*EndCC*
[2018-11-04 20:00] VITALS: BP 151/83; PULSE 86; RESP 18
[2018-11-04] MEDS: ATORVASTATIN 20 MG TAB PO SCH (20:36)
[2018-11-04] MEDS: HYDROCODONE/APAP (5/325) TAB PO PRN (20:42)
[2018-11-05] MEDS: PIPER-TAZO 3.375 GM IV (PMX) 100 ML IVPB SCH ×4 (00:21→17:26)
[2018-11-05] MEDS: ACCU-CHEK XX SCH (01:30)
[2018-11-05 02:00] VITALS: BP 156/74; PULSE 79; RESP 18
[2018-11-05] MEDS: INSULIN ASPART [NOVOLOG] 3 ML PEN SC SCH ×7 (08:12→20:33)
[2018-11-05] MEDS: INSULIN GLARGINE [LANTus] (100 UNITS/ML) SYG SC SCH (08:15)
[2018-11-05] MEDS: GABAPENTIN 300 MG CAP PO SCH ×2 (08:18→20:26)
[2018-11-05] MEDS: ASPIRIN (EC) 81 MG TAB PO SCH (08:18)
[2018-11-05] MEDS: NEBIVOLOL 5 MG TAB PO SCH (08:19)
[2018-11-05] MEDS: PANTOPRAZOLE (EC) 40 MG TAB PO SCH (08:19)
[2018-11-05 08:22] VITALS: BP 150/80; PULSE 84; RESP 18
[2018-11-05] MEDS: HEPARIN 5,000 UNIT/1 ML VIAL SC SCH ×2 (09:00→20:34)
[2018-11-05] MEDS ORDERED: VANCOMYCIN HCL 1.25 GM in SOD CHLORIDE 0.9% 250 ML IVPB SCH (10:00)
[2018-11-05] MEDS: DAKINS 0.0125%(1/40) 473 ML SOLUTION TP SCH (10:26)
--- NOTE | 2018-11-05 10:51 | PN ---
Date/Time of Note Date/Time of Note DATE: 11/05/18 TIME: 10:46 Assessment/Plan VTE Prophylaxis Risk score (from Ns)>0 risk: 6 SCD applied (from Ns): Yes Pharmacological prophylaxis: heparin Lines/Catheters IV Catheter Type (from [facility]): Peripheral IV Urinary Cath still in place: No Assessment/Plan Hospital Course SUBJECTIVE: No acute overnight episodes. OBJECTIVE: Vital signs-see below PHYSICAL EXAM: Constitutional: Adequately built,not in acute distress. HEENT: Head atraumatic and normocephalic. Eyes: Extraocular muscles intact. Anicteric sclerae. Pupils equal bilaterally, reactive to light. NECK: Supple without lymph node. CHEST: Clear and good breath sounds equally. No wheezing. No rhonchi. HEART: S1, S2. Regular rate and rhythm. ABDOMEN: Soft/non tender with no rebound tenderness. Bowel sounds were present. EXTREMITIES: Left second toe amputated. Right fifth toe with gangrene/exposure of bone. Erythema/swelling around the base.no DP pulse appreciated both side. Palpable PT bilaterally. No cyanosis, clubbing or edema. NEUROLOGIC: Alert and oriented x3. No focal deficit. No sensory deficit. PSYCHOSOCIAL: No signs of depression. INTEGUMENTARY: No open wounds. ASSESSMENT AND PLAN:72 yo M w/htn, dm2, left 2nd toe amputation, neuropathy,dlp, PAD, rt 5th toe ulcer here w/worsening rt 5th toe gangrenosus ulcer.. Right fifth toe gangrenous ulcer -Been followed by vascular and podiatry. Plan is for vascular intervention followed by possible amputation of right fifth toe. -Continue IV antimicrobials and follow-up cultures. -Wound care -Glycemic management Poorly controlled DMII -Blood sugar stabilizing. -Basal/bolus insulin-titrate per need Acute kidney injury, likely secondary to SHANAE inhibitors -Renal function back to normal w/ fluids and holding SHANAE inhibitors -Continue to monitor -Patient nephrology recommendations Hyperkalemia likely 2/2 SHANAE inhibitors -Improved. -Management per nephrology Essential -Continue bb/hydralazine-increase hydralazine dose to 50 mg 3 times daily for optimal control -PRN clonidine Peripheral neuropathy -cont. gabapentin Dyslipidemia -cont. statin Chronic anemia -Stable H&H. Monitor DVT prophylaxis: Heparin PUD prophylaxis: PPI Disposition: Continue current management. Follow-up cultures. Continue antibiotics. Plan is vascular intervention followed by possible amputation of the affected toe. Patient was seen in collaboration with . Result Diagram: 11/05/1828 11/05/18527 Results 24hrs Laboratory Tests Test 11/04/18 12:05 11/04/18 16:55 11/04/18 17:54 11/04/18 20:35 Bedside Glucose 242 H 229 H 134 Sodium Level 137 Potassium Level 4.9 Chloride Level 99 Carbon Dioxide Level 28 Anion Gap 10 Blood Urea Nitrogen 19 Creatinine 1.20 Est Glomerular Filtrat Rate mL/min Glucose Level 259 H Calcium Level 9.1 Test 11/05/18 05:28 11/05/18 08:10 White Blood Count 6.4 Red Blood Count 3.91 L Hemoglobin 11.7 L Hematocrit 37.3 L Mean Corpuscular 95.4 Volume Mean Corpuscular 29.9 Hemoglobin Mean Corpuscular 31.4 L Hemoglobin Concent Red Cell 13.1 Distribution Width Platelet Count 248 Mean Platelet Volume 10.5 H Immature 0.200 Granulocytes % Neutrophils % 58.2 Lymphocytes % 27.3 Monocytes % 9.9 Eosinophils % 3.3 Basophils % 1.1 Nucleated Red Blood 0.0 Cells % Immature 0.010 Granulocytes # Neutrophils # 3.7 Lymphocytes # 1.7 Monocytes # 0.6 Eosinophils # 0.2 Basophils # 0.1 Nucleated Red Blood 0.0 Cells # Sodium Level 138 Potassium Level 5.1 Chloride Level 99 Carbon Dioxide Level 29 Anion Gap 10 Blood Urea Nitrogen 15 Creatinine 1.07 Est Glomerular Filtrat Rate mL/min Glucose Level 189 Hemoglobin A1c 6.7 H Calcium Level 8.6 Phosphorus Level 3.2 Magnesium Level 1.7 Total Bilirubin 0.3 Direct Bilirubin 0.00 Indirect Bilirubin 0.3 Aspartate Amino 22 Transf (AST/SGOT) Alanine 31 Aminotransferase (AL T/SGPT) Alkaline Phosphatase 99 Total Protein 6.9 Albumin 3.4 Globulin 3.50 H Albumin/Globulin 0.97 Ratio Triglycerides Level 120 Cholesterol Level 123 LDL Cholesterol, 71 Calculated HDL Cholesterol 28 L Cholesterol/HDL 4.3 Ratio Bedside Glucose 196 Exam/Review of Systems Exam Vitals Vital Signs Date Temp Pulse Resp B/P (MAP) Pulse Ox O2 O2 Flow FiO2 Time Delivery Rate 11/05/18 98.1 84 18 150/80 97 Room Air 08:22 (103) Intake and Output 11/04/18 11/04/18 11/05/18 1515:00 23:00 07:00 IntakeIntake Total 340 ml 915 ml 725 ml OutputOutput Total 600 ml BalanceBalance 340 ml 915 ml 125 ml Results Results 24hrs Laboratory Tests Test 11/04/18 12:05 11/04/18 16:55 11/04/18 17:54 11/04/18 20:35 Bedside Glucose 242 H 229 H 134 Sodium Level 137 Potassium Level 4.9 Chloride Level 99 Carbon Dioxide Level 28 Anion Gap 10 Blood Urea Nitrogen 19 Creatinine 1.20 Est Glomerular Filtrat Rate mL/min Glucose Level 259 H Calcium Level 9.1 Test 11/05/18 05:28 11/05/18 08:10 White Blood Count 6.4 Red Blood Count 3.91 L Hemoglobin 11.7 L Hematocrit 37.3 L Mean Corpuscular 95.4 Volume Mean Corpuscular 29.9 Hemoglobin Mean Corpuscular 31.4 L Hemoglobin Concent Red Cell 13.1 Distribution Width Platelet Count 248 Mean Platelet Volume 10.5 H Immature 0.200 Granulocytes % Neutrophils % 58.2 Lymphocytes % 27.3 Monocytes % 9.9 Eosinophils % 3.3 Basophils % 1.1 Nucleated Red Blood 0.0 Cells % Immature 0.010 Granulocytes # Neutrophils # 3.7 Lymphocytes # 1.7 Monocytes # 0.6 Eosinophils # 0.2 Basophils # 0.1 Nucleated Red Blood 0.0 Cells # Sodium Level 138 Potassium Level 5.1 Chloride Level 99 Carbon Dioxide Level 29 Anion Gap 10 Blood Urea Nitrogen 15 Creatinine 1.07 Est Glomerular Filtrat Rate mL/min Glucose Level 189 Hemoglobin A1c 6.7 H Calcium Level 8.6 Phosphorus Level 3.2 Magnesium Level 1.7 Total Bilirubin 0.3 Direct Bilirubin 0.00 Indirect Bilirubin 0.3 Aspartate Amino 22 Transf (AST/SGOT) Alanine 31 Aminotransferase (AL T/SGPT) Alkaline Phosphatase 99 Total Protein 6.9 Albumin 3.4 Globulin 3.50 H Albumin/Globulin 0.97 Ratio Triglycerides Level 120 Cholesterol Level 123 LDL Cholesterol, 71 Calculated HDL Cholesterol 28 L Cholesterol/HDL 4.3 Ratio Bedside Glucose 196 Medications Medication Current Medications Aspirin (Halfprin) 81 mg DAILY PO Last administered on 11/05/18at 08:18; Admin Dose 81 MG; Start 11/04/18 at 09:00 Atorvastatin Calcium (Lipitor) 20 mg QHS PO Last administered on 11/04/18at 20:36; Admin Dose 20 MG; Start 11/04/18 at 21:00 Ergocalciferol (Drisdol) 50,000 unit Sa PO ; Start 11/09/18 at 09:00 Gabapentin (Neurontin) 300 mg BID PO Last administered on 11/05/18at 08:18; Admin Dose 300 MG; Start 11/04/18 at 09:00 Miscellaneous Medication (Bystolic) 20 mg DAILY PO Last administered on 11/05/18at 08:19; Admin Dose 20 MG; Start 11/04/18 at 09:00 Pantoprazole (Protonix Tab) 40 mg DAILY PO Last administered on 11/05/18at 08:19; Admin Dose 40 MG; Start 11/04/18 at 09:00 Hydralazine HCl (Apresoline) 25 mg TID PO Last administered on 11/05/18at 08:18; Admin Dose 25 MG; Start 11/04/18 at 09:00 Clonidine (Catapres) 0.1 mg Q6H PRN PO SBP>160; Start 11/04/18 at 09:00 IV Flush (NS 3 ml) 3 ml PER PROTOCOL IV ; Start 11/04/18 at 09:00 Ondansetron HCl (Zofran Inj) 4 mg Q6H PRN IV NAUSEA/VOMITING; Start 11/04/18 at 09:00 Acetaminophen (Tylenol Tab) 650 mg Q6H PRN PO .PAIN 1-3 OR TEMP; Start 11/04/18 at 09:00 Acetaminophen/ Hydrocodone Bitart ([place] (5/325)) 1 tab Q6H PRN PO .MOD PAIN 4- 6 Last administered on 11/04/18at 20:42; Admin Dose 1 TAB; Start 11/04/18 at 09:00 Docusate Sodium (Colace) 100 mg Q12H PRN PO .CONSTIPATION; Start 11/04/18 at 09:00 Heparin Sodium (Porcine) (Heparin (5000 Units/1ml)) 5,000 unit Q12 SC Last administered on 11/04/18at 20:39; Admin Dose 5,000 UNIT; Start 11/04/18 at 09:00 Diagnostic Test (Pha) (Accu-Chek) 1 ea 02 XX ; Start 11/05/18 at 02:00 Insulin Glargine (Lantus) 26 units DAILY@0800 SC Last administered on 11/05/18at 08:15; Admin Dose 26 UNITS; Start 11/04/18 at 09:00 Insulin Aspart (Novolog Insulin Pen) 4 unit WITH MEALS SC Last administered on 11/05/18at 08:12; Admin Dose 4 UNIT; Start 11/04/18 at 11:30 Insulin Aspart (Novolog Insulin Pen) NOVOLOG *MILD* ALGORITHM WITH MEALS BEDTIME SC Last administered on 11/05/18at 08:14; Admin Dose 2 UNIT; Start 11/04/18 at 12:00 Piperacillin Sod/ Tazobactam Sod 100 ml @ 200 mls/hr Q6 IVPB Last administered on 11/05/18at 05:29; Admin Dose 200 MLS/HR; Start 11/04/18 at 09:00 Vancomycin HCl (Vanco Iv Per Pharmacy) VANCOMYCIN PER PHARMACY PER PROTOCOL XX ; Start 11/04/18 at 09:00 Miscellaneous Information 1 ea NOTE XX ; Start 11/04/18 at 09:00 Glucose (Glutose) 15 gm Q15M PRN PO DECREASED GLUCOSE; Start 11/04/18 at 09:00 Glucose (Glutose) 22.5 gm Q15M PRN PO DECREASED GLUCOSE; Start 11/04/18 at 09:00 Dextrose (D50w Syringe) 25 ml Q15M PRN IV DECREASED GLUCOSE; Start 11/04/18 at 09:00 Dextrose (D50w Syringe) 50 ml Q15M PRN IV DECREASED GLUCOSE; Start 11/04/18 at 09:00 Glucagon (Glucagen) 1 mg Q15M PRN IM DECREASED GLUCOSE; Start 11/04/18 at 09:00 Glucose (Glutose) 15 gm Q15M PRN BUCCAL DECREASED GLUCOSE; Start 11/04/18 at 09:00 Vancomycin HCl 1.25 gm/Sodium Chloride 250 ml @ 83.333 mls/ hr Q24H IVPB Last administered on 11/05/18at 10:25; Admin Dose 83.333 MLS/HR; Start 11/05/18 at 10:00 Miscellaneous Information Patients own medicat... BID@10,16 XX ; Start 11/04/18 at 16:00 Sodium Hypochlorite (Dakins Diluted (40)) 1 applic DAILY TP Last administered on 11/05/18at 10:26; Admin Dose 1 APPLIC; Start 11/05/18 at 09:00 KARLA LAIRD NP Nov 05, 2018 10:51
[2018-11-05 15:11] VITALS: BP 182/83; PULSE 72; RESP 16
[2018-11-05 20:22] VITALS: BP 180/96; PULSE 77; RESP 20
[2018-11-05] MEDS: ATORVASTATIN 20 MG TAB PO SCH (20:24)
[2018-11-05] MEDS: HYDROCODONE/APAP (5/325) TAB PO PRN (20:30)
[2018-11-05] MEDS: POVIDONE IODINE 10% 28.4 GM OINT TOP SCH (20:36)
[2018-11-06] VITALS (18 sets, daily range): BP systolic 98–188; BP diastolic 55–90; PULSE 63–92; RESP 12–20
[2018-11-06] MEDS: PIPER-TAZO 3.375 GM IV (PMX) 100 ML IVPB SCH ×5 (00:20→23:26)
[2018-11-06] MEDS: ACCU-CHEK XX SCH (02:00)
--- NOTE | 2018-11-06 02:36 | CONS ---
DATE OF ADMISSION: 11/04/2018 DATE OF CONSULTATION: 11/05/2018 INFECTIOUS DISEASE CONSULTATION REASON FOR CONSULTATION: Antibiotic management. HISTORY OF PRESENT ILLNESS: The patient is a 72-year-old male male who comes in with [facility] problems complaining of left fifth toe gangrene. Past problems include: 1. Hypertension. 2. Diabetes. 3. 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 He was admitted approximately 1 month ago where he received several days of IV antibiotics and was di scharged on oral ampicillin. The patient's gangrene and necrosis have progressively been getting wor se. At this time, there is exposed bone of the fifth phalanx and metatarsal on the left foot. The p atient denies any pain. He does have a history of diabetic neuropathy, but he reports having sensati on to his foot. He has peripheral vascular disease. He is a patient of Dr. Lott, vascular surgeon. He does not have any neck or back pain. He has no headache, fever or chills. PAST MEDICAL HISTORY: Past problems include multiple bilateral diabetic toe amputations. He has per ipheral neuropathy, hypertension, hyperlipidemia. He also has a history of Crohn's disease with coli tis and diabetes and GERD. FAMILY HISTORY: Noncontributory. SOCIAL HISTORY: He does not smoke, drink or abuse drugs. ALLERGIES: NONE TO PENICILLIN, SULFA OR FOODS. MEDICATIONS: Per chart. REVIEW OF SYSTEMS: Noncontributory. PHYSICAL EXAMINATION: GENERAL: The patient is a well-developed, well-nourished male, alert, responsive, in no acute distre ss. VITAL SIGNS: Stable. He is afebrile. SKIN: Without generalized rash. HEENT: Within normal limits. NECK: Supple. LYMPH NODES: None palpable. CHEST: Decreased breath sounds at the bases. HEART: Without murmur or gallop. ABDOMEN: Soft, nontender, without organosplenomegaly or masses. EXTREMITIES: The patient has a dressing on his left fifth toe. Extremities otherwise without cyanos is, clubbing, or edema. RECTAL AND GENITAL: Deferred. NEUROLOGIC: No focal neurological abnormality. ANCILLARY LABORATORY DATA: White count 6.8, H and H of 12.1 and 37.6, platelet count 271,000. BUN a nd creatinine 20/1.31, glucose of 335. Of note, patient was seen by Dr. Cota, banquet manager, who felt he had left foot gangrene, left foot diabetic ulcer, history of left foot second digit amputation, peripheral artery disease, insulin-dep endent diabetes, peripheral neuropathy, dyslipidemia, hypertension. He felt that he would benefit fr om left foot fifth digit amputation after vascular procedure. Dr. Lott had seen the patient. He no eriberto he is going to order arterial studies and scheduled for an angiogram to see if he can increase th e circulation to the foot. An arterial study was done which showed diffuse blunted waveforms on the left, compatible with diffuse vascular resistance and/or upstream stenosis, moderate stenosis of the mid right superficial femoral artery with blunted waveform distally. Foot x-ray shows no acute fract ures, status post remote amputation of left second distal metatarsal and phalanges of the left fifth middle and distal toes. He has severe degenerative changes and he has destruction currently suggesti ve of myelitis. MRI of the right foot demonstrates chronic multiple amputations irregularities, mult ilevel soft tissue irregularity without evidence of acute osteomyelitis; however, we are dealing with the left foot at this present time. Microbiology is noncontributory. The patient is on vancomycin and Zosyn. We will continue him on current therapy and await podiatric procedure. Dictated By: DARRIN RAMSAY MD, JD/BOBO Conf#: [id number] DID#: [id number] CC: TOMASA SCOTT;*EndCC*
--- NOTE | 2018-11-06 07:28 | PN ---
DATE: 11/05/2018 SUBJECTIVE: The patient is stable. No events overnight. OBJECTIVE: VITAL SIGNS: Blood pressure is 150/80, pulse 84, respiration 18, temperature 98.1. HEENT: Head is normocephalic. NECK: Supple. HEART: Regular rate. LUNGS: Show diminished breath sounds at the base. ABDOMEN: Soft, nontender to palpation without rebound or guarding. EXTREMITIES: Negative for clubbing, cyanosis, no edema. DERMATOLOGIC: No rashes. MUSCULOSKELETAL: No joint effusion. NEUROLOGIC: No change in exam. MEDICATIONS: Reviewed. LABORATORY DATA: Has been reviewed. ASSESSMENT AND PLAN: 1. Oliguric acute kidney injury with previous baseline creatinine of 0.79 mg/dL. Etiology of acute kidney injury is secondary to hemodynamics. The patient's renal function has improved with IV fluids . At this point, continue current treatment plan, supportive care, renally dose all meds. 2. Hyperkalemia secondary to SHANAE inhibitor, improved. Continue to monitor. Would hold SHANAE inhibito r at this time. Continue patient on a low-potassium diet. 3. Hyponatremia, resolved. 4. Anemia. Monitor hemoglobin and hematocrit levels. 5. Mineral bone disorder. Monitor calcium and phosphorus levels. 6. Right fifth toe gangrenous ulcer. The patient has been seen by podiatry. Continue to monitor. Continue antibiotic therapy. Follow up recommendations. 7. Diabetes. Continue current insulin regimen. 8. Hypertension. Blood pressures currently remain elevated. Will continue current blood pressure r egimen. Monitor closely. If renal function remains stable, may reintroduce low dose SHANAE inhibitor o r ARB. 9. Dyslipidemia. Continue statin therapy. 10. Peripheral neuropathy. Continue current medical management. Dictated By: JEAN CLAUDE RUFFIN/BOBO Conf#: [id number] DID#: [id number]
[2018-11-06] MEDS: INSULIN ASPART [NOVOLOG] 3 ML PEN SC SCH ×5 (07:35→20:51)
[2018-11-06] MEDS: GABAPENTIN 300 MG CAP PO SCH ×2 (08:39→20:44)
[2018-11-06] MEDS: PANTOPRAZOLE (EC) 40 MG TAB PO SCH (08:40)
[2018-11-06] MEDS: ASPIRIN (EC) 81 MG TAB PO SCH (08:40)
[2018-11-06] MEDS: NEBIVOLOL 5 MG TAB PO SCH (08:41)
[2018-11-06] MEDS: HEPARIN 5,000 UNIT/1 ML VIAL SC SCH ×2 (08:42→20:51)
[2018-11-06] MEDS: VANCOMYCIN HCL 1.5 GM in SOD CHLORIDE 0.9% 250 ML IVPB SCH (10:10)
[2018-11-06] MEDS: INSULIN GLARGINE [LANTus] (100 UNITS/ML) SYG SC SCH (11:22)
--- NOTE | 2018-11-06 11:48 | PN ---
Date/Time of Note Date/Time of Note DATE: 11/06/18 TIME: 11:44 Assessment/Plan VTE Prophylaxis Risk score (from Nsg)>0 risk: 5 SCD applied (from Nsg): Yes Pharmacological prophylaxis: heparin Lines/Catheters IV Catheter Type (from Nrsg): Peripheral IV Urinary Cath still in place: No Assessment/Plan Hospital Course SUBJECTIVE: No acute overnight episodes. OBJECTIVE: Vital signs-see below PHYSICAL EXAM: Constitutional: Adequately built,not in acute distress. HEENT: Head atraumatic and normocephalic. Eyes: Extraocular muscles intact. Anicteric sclerae. Pupils equal bilaterally, reactive to light. NECK: Supple without lymph node. CHEST: Clear and good breath sounds equally. No wheezing. No rhonchi. HEART: S1, S2. Regular rate and rhythm. ABDOMEN: Soft/non tender with no rebound tenderness. Bowel sounds were present. EXTREMITIES: Left second toe amputated. Right fifth toe with gangrene/exposure of bone. Erythema/swelling around the base.no DP pulse appreciated both side. Palpable PT bilaterally. No cyanosis, clubbing or edema. NEUROLOGIC: Alert and oriented x3. No focal deficit. No sensory deficit. PSYCHOSOCIAL: No signs of depression. INTEGUMENTARY: No open wounds. ASSESSMENT AND PLAN:72 yo M w/htn, dm2, left 2nd toe amputation, neuropathy,dlp, PAD, rt 5th toe ulcer here w/worsening rt 5th toe gangrenosus ulcer.. Right fifth toe gangrenous ulcer -For aortogram today w/possible intervention. Follow-up vascular recommendations. Possible amputation of right fifth toe once vascular work-up is completed.. -Continue IV antimicrobials and follow-up cultures. -Wound care -Glycemic management Poorly controlled DMII -improving -Basal/bolus insulin-titrate per need Acute kidney injury, likely secondary to SHANAE inhibitors -Renal function back to normal w/ fluids and holding SHANAE inhibitors -Continue to monitor -Patient nephrology recommendations Hyperkalemia likely 2/2 SHANAE inhibitors -This is also resolved. Essential -Continue bb/hydralazine -PRN clonidine Peripheral neuropathy -cont. gabapentin Dyslipidemia -cont. statin Chronic anemia -Stable H&H. Monitor DVT prophylaxis: Heparin PUD prophylaxis: PPI Disposition: Follow-up vascular and podiatry recommendations. Follow-up final cultures. Continue antibiotics. Patient was seen in collaboration with . Result Diagram: 6/19/19 0542 11/06/18 0542 Results 24hrs Laboratory Tests Test 11/05/18 12:11 11/05/18 17:24 11/05/18 20:32 11/06/18 05:42 Bedside Glucose 186 99 98 White Blood Count 6.3 Red Blood Count 4.18 L Hemoglobin 12.6 L Hematocrit 39.5 L Mean Corpuscular 94.5 Volume Mean Corpuscular 30.1 Hemoglobin Mean Corpuscular 31.9 L Hemoglobin Concent Red Cell 12.9 Distribution Width Platelet Count 258 Mean Platelet Volume 10.3 Immature 0.300 Granulocytes % Neutrophils % 56.0 Lymphocytes % 28.8 Monocytes % 10.0 Eosinophils % 4.0 Basophils % 0.9 Nucleated Red Blood 0.0 Cells % Immature 0.020 Granulocytes # Neutrophils # 3.5 Lymphocytes # 1.8 Monocytes # 0.6 Eosinophils # 0.3 Basophils # 0.1 Nucleated Red Blood 0.0 Cells # Sodium Level 139 Potassium Level 4.2 Chloride Level 99 Carbon Dioxide Level 28 Anion Gap 12 Blood Urea Nitrogen 13 Creatinine 1.08 Est Glomerular Filtrat Rate mL/min Glucose Level 176 Calcium Level 8.8 Test 11/06/18 08:06 11/06/18 10:05 11/06/18 11:20 Bedside Glucose 177 235 H 198 Exam/Review of Systems Exam Vitals Vital Signs Date Temp Pulse Resp B/P (MAP) Pulse Ox O2 O2 Flow FiO2 Time Delivery Rate 11/06/18 97.8 77 18 139/67 97 Room Air 07:15 (91) Intake and Output 11/05/18 11/05/18 11/06/18 1515:00 23:00 07:00 IntakeIntake Total 850 ml 620 ml 940 ml OutputOutput Total 551 ml 400 ml BalanceBalance 299 ml 220 ml 940 ml Results Results 24hrs Laboratory Tests Test 11/05/18 12:11 11/05/18 17:24 11/05/18 20:32 11/06/18 05:42 Bedside Glucose 186 99 98 White Blood Count 6.3 Red Blood Count 4.18 L Hemoglobin 12.6 L Hematocrit 39.5 L Mean Corpuscular 94.5 Volume Mean Corpuscular 30.1 Hemoglobin Mean Corpuscular 31.9 L Hemoglobin Concent Red Cell 12.9 Distribution Width Platelet Count 258 Mean Platelet Volume 10.3 Immature 0.300 Granulocytes % Neutrophils % 56.0 Lymphocytes % 28.8 Monocytes % 10.0 Eosinophils % 4.0 Basophils % 0.9 Nucleated Red Blood 0.0 Cells % Immature 0.020 Granulocytes # Neutrophils # 3.5 Lymphocytes # 1.8 Monocytes # 0.6 Eosinophils # 0.3 Basophils # 0.1 Nucleated Red Blood 0.0 Cells # Sodium Level 139 Potassium Level 4.2 Chloride Level 99 Carbon Dioxide Level 28 Anion Gap 12 Blood Urea Nitrogen 13 Creatinine 1.08 Est Glomerular Filtrat Rate mL/min Glucose Level 176 Calcium Level 8.8 Test 11/06/18 08:06 11/06/18 10:05 11/06/18 11:20 Bedside Glucose 177 235 H 198 Medications Medication Current Medications Aspirin (Halfprin) 81 mg DAILY PO Last administered on 11/06/18at 08:40; Admin Dose 81 MG; Start 11/04/18 at 09:00 Atorvastatin Calcium (Lipitor) 20 mg QHS PO Last administered on 11/05/18at 20:24; Admin Dose 20 MG; Start 11/04/18 at 21:00 Ergocalciferol (Drisdol) 50,000 unit Sa PO ; Start 11/09/18 at 09:00 Gabapentin (Neurontin) 300 mg BID PO Last administered on 11/06/18at 08:39; Admin Dose 300 MG; Start 11/04/18 at 09:00 Miscellaneous Medication (Bystolic) 20 mg DAILY PO Last administered on 11/06/18at 08:41; Admin Dose 20 MG; Start 11/04/18 at 09:00 Pantoprazole (Protonix Tab) 40 mg DAILY PO Last administered on 11/06/18at 08:40; Admin Dose 40 MG; Start 11/04/18 at 09:00 Clonidine (Catapres) 0.1 mg Q6H PRN PO SBP>160; Start 11/04/18 at 09:00 IV Flush (NS 3 ml) 3 ml PER PROTOCOL IV ; Start 11/04/18 at 09:00 Ondansetron HCl (Zofran Inj) 4 mg Q6H PRN IV NAUSEA/VOMITING; Start 11/04/18 at 09:00 Acetaminophen (Tylenol Tab) 650 mg Q6H PRN PO .PAIN 1-3 OR TEMP; Start 11/04/18 at 09:00 Acetaminophen/ Hydrocodone Bitart ([place] (5/325)) 1 tab Q6H PRN PO .MOD PAIN 4- 6 Last administered on 11/05/18at 20:30; Admin Dose 1 TAB; Start 11/04/18 at 09:00 Docusate Sodium (Colace) 100 mg Q12H PRN PO .CONSTIPATION; Start 11/04/18 at 09:00 Heparin Sodium (Porcine) (Heparin (5000 Units/1ml)) 5,000 unit Q12 SC Last administered on 11/05/18at 20:34; Admin Dose 5,000 UNIT; Start 11/04/18 at 09:00 Insulin Glargine (Lantus) 26 units DAILY@0800 SC Last administered on 11/06/18at 11:22; Admin Dose 26 UNITS; Start 11/04/18 at 09:00 Piperacillin Sod/ Tazobactam Sod 100 ml @ 200 mls/hr Q6 IVPB Last administered on 11/06/18at 05:25; Admin Dose 200 MLS/HR; Start 11/04/18 at 09:00 Vancomycin HCl (Vanco Iv Per Pharmacy) VANCOMYCIN PER PHARMACY PER PROTOCOL XX ; Start 11/04/18 at 09:00 Miscellaneous Information 1 ea NOTE XX ; Start 11/04/18 at 09:00 Glucose (Glutose) 15 gm Q15M PRN PO DECREASED GLUCOSE; Start 11/04/18 at 09:00 Glucose (Glutose) 22.5 gm Q15M PRN PO DECREASED GLUCOSE; Start 11/04/18 at 09:00 Dextrose (D50w Syringe) 25 ml Q15M PRN IV DECREASED GLUCOSE; Start 11/04/18 at 09:00 Dextrose (D50w Syringe) 50 ml Q15M PRN IV DECREASED GLUCOSE; Start 11/04/18 at 09:00 Glucagon (Glucagen) 1 mg Q15M PRN IM DECREASED GLUCOSE; Start 11/04/18 at 09:00 Glucose (Glutose) 15 gm Q15M PRN BUCCAL DECREASED GLUCOSE; Start 11/04/18 at 09:00 Miscellaneous Information Patients own medicat... BID@ XX ; Start 11/04/18 at 16:00 Sodium Hypochlorite (Dakins Diluted ()) 1 applic DAILY TP Last administered on 11/05/18at 10:26; Admin Dose 1 APPLIC; Start 11/05/18 at 09:00 Insulin Aspart (Novolog Insulin Pen) 6 unit WITH MEALS SC Last administered on 11/05/18at 17:29; Admin Dose 6 UNIT; Start 11/05/18 at 11:30 Hydralazine HCl (Apresoline) 50 mg TID PO Last administered on 11/06/18at 08:41; Admin Dose 50 MG; Start 11/05/18 at 13:00 Vancomycin HCl 1.5 gm/Sodium Chloride 250 ml @ 83.333 mls/ hr Q24H IVPB Last administered on 11/06/18at 10:10; Admin Dose 83.333 MLS/HR; Start 11/06/18 at 10:00 Povidone Iodine (Povidone-Iodine) 1 applic BID TOP Last administered on 11/05/18at 20:36; Admin Dose 1 APPLIC; Start 11/05/18 at 21:00 Insulin Aspart (Novolog Insulin Pen) NOVOLOG *MILD* ALGORI... Q4 SC ; Start 11/06/18 at 13:00 KARLA LAIRD NP Nov 06, 2018 11:48
[2018-11-06] MEDS ORDERED: IODIXANOL LOCM 100 ML BTL ONE (11:52)
[2018-11-06] MEDS ORDERED: LIDOCAINE 1% (MDV) 20 ML INJ ONE (11:52)
[2018-11-06] MEDS ORDERED: HEPARIN 1000 UNITS/NS (A-LINE) 1,000 ML ONE (11:52)
[2018-11-06] MEDS ORDERED: FENTAnyl 50 MCG/ML VIAL ONE (12:02)
[2018-11-06] MEDS ORDERED: MIDAZOLAM 1 MG/ML 2 ML INJ ONE (12:02)
[2018-11-06] MEDS ORDERED: LABETALOL HCL 20MG INJ ONE (12:22)
[2018-11-06] MEDS ORDERED: INSULIN ASPART [NOVOLOG] 3 ML PEN SC SCH (13:00)
--- NOTE | 2018-11-06 13:15 | PN ---
DATE: 11/06/2018 SUBJECTIVE: The patient is stable. No events overnight. OBJECTIVE: VITAL SIGNS: Blood pressure is 139/67, respirations 18, pulse 77, temperature 97.8. HEENT: Head is normocephalic. NECK: Supple. HEART: Regular rate. LUNGS: Show diminished breath sounds at the base. ABDOMEN: Soft, nontender to palpation without rebound or guarding. EXTREMITIES: Negative for clubbing, cyanosis, no edema. DERMATOLOGIC: No rashes. MUSCULOSKELETAL: No joint effusion. NEUROLOGIC: No change in exam. MEDICATIONS: Reviewed. LABORATORY DATA: Reviewed. ASSESSMENT AND PLAN: 1. Nonoliguric acute kidney injury with previous baseline creatinine of 0.79 mg/dL. Etiology of acu te kidney injury is secondary to hemodynamics. Renal function is improved with IV fluids, continue t o monitor. 2. Hypokalemia, resolved. 3. Hypernatremia, resolved. 4. Anemia. Monitor hemoglobin and hematocrit levels. 5. Mineral bone disorder. Monitor calcium and phosphorus levels. 6. Toe gangrenous ulcer. The patient is seen by podiatry. Pending debridement. 7. Diabetes. Continue current insulin regimen. 8. Hypertension. Continue current blood pressure regimen. 9. Dyslipidemia. Continue statin therapy. 10. Peripheral neuropathy. Please note we will follow the patient as needed. Dictated By: JEAN CLAUDE RUFFIN/BOBO Conf#: [id number] DID#: [id number] CC: TOMASA SCOTT; DEEPAK CHAN DPM;*EndCC*
[2018-11-06] MEDS ORDERED: hydrALAzine 20 MG INJ IV ONE (14:00)
[2018-11-06] MEDS: HYDROCODONE/APAP (5/325) TAB PO PRN ×2 (14:32→20:53)
--- NOTE | 2018-11-06 15:42 | CONS ---
Assessment/Plan Assessment/Plan Hospital Course (Demo Recall) Alert feels good denies pain no fevers overnight WBC 6.3 H&H 12.6 and 39.5 platelets 258 no shift no bands BUN 13 creatinine 1.08 Microbiology: Cultures negative Antimicrobials: Vancomycin, Zosyn Physical examination: Well-developed elderly man who is awake in no distress head atraumatic normocephalic neck is supple chest rise symmetrical breath sounds diminished bases heart S1-S2 abdomen soft bowel sounds present extremities with left foot dressing intact Assessment: 1. Left foot gangrene 2. Peripheral arterial disease 3. Diabetes and hypertension 4. History of left foot second toe amputation Plan: Patient remains stable, continue on current antibiotics for now, pending abdominal aortogram Consultation Date/Type/Reason Admit Date/Time Nov 04, 2018 at 07:34 Initial Consult Date Date/Time of Note DATE: 11/06/18 TIME: 15:42 Exam/Review of Systems Exam Vitals Vital Signs Date Temp Pulse Resp B/P (MAP) Pulse Ox O2 O2 Flow FiO2 Time Delivery Rate 11/06/18 92 19 132/66 Room Air 15:05 (88) 11/06/18 98.0 96 14:11 11/06/18 2.0 13:25 Intake and Output 11/05/18 11/05/18 11/06/18 1515:00 23:00 07:00 IntakeIntake Total 850 ml 620 ml 940 ml OutputOutput Total 551 ml 400 ml BalanceBalance 299 ml 220 ml 940 ml Results Result Diagram: 11/06/18 0542 11/06/18 0542 Results 24hrs Laboratory Tests Test 11/05/18 17:24 11/05/18 20:32 11/06/18 05:42 11/06/18 08:06 Bedside Glucose 99 98 177 White Blood Count 6.3 Red Blood Count 4.18 L Hemoglobin 12.6 L Hematocrit 39.5 L Mean Corpuscular 94.5 Volume Mean Corpuscular 30.1 Hemoglobin Mean Corpuscular 31.9 L Hemoglobin Concent Red Cell 12.9 Distribution Width Platelet Count 258 Mean Platelet Volume 10.3 Immature 0.300 Granulocytes % Neutrophils % 56.0 Lymphocytes % 28.8 Monocytes % 10.0 Eosinophils % 4.0 Basophils % 0.9 Nucleated Red Blood 0.0 Cells % Immature 0.020 Granulocytes # Neutrophils # 3.5 Lymphocytes # 1.8 Monocytes # 0.6 Eosinophils # 0.3 Basophils # 0.1 Nucleated Red Blood 0.0 Cells # Sodium Level 139 Potassium Level 4.2 Chloride Level 99 Carbon Dioxide Level 28 Anion Gap 12 Blood Urea Nitrogen 13 Creatinine 1.08 Est Glomerular Filtrat Rate mL/min Glucose Level 176 Calcium Level 8.8 Test 11/06/18 10:05 11/06/18 11:20 11/06/18 13:40 Bedside Glucose 235 H 198 179 Medications Medication Current Medications Aspirin (Halfprin) 81 mg DAILY PO Last administered on 11/06/18 08:40; Admin Dose 81 MG; Start 11/04/18 at 09:00 Atorvastatin Calcium (Lipitor) 20 mg QHS PO Last administered on 11/05/18at 20:24; Admin Dose 20 MG; Start 11/04/18 at 21:00 Ergocalciferol (Drisdol) 50,000 unit Sa PO ; Start 11/09/18 at 09:00 Gabapentin (Neurontin) 300 mg BID PO Last administered on 11/06/18at 08:39; Admin Dose 300 MG; Start 11/04/18 at 09:00 Miscellaneous Medication (Bystolic) 20 mg DAILY PO Last administered on 11/06/18at 08:41; Admin Dose 20 MG; Start 11/04/18 at 09:00 Pantoprazole (Protonix Tab) 40 mg DAILY PO Last administered on 11/06/18at 08:40; Admin Dose 40 MG; Start 11/04/18 at 09:00 Clonidine (Catapres) 0.1 mg Q6H PRN PO SBP>160; Start 11/04/18 at 09:00 IV Flush (NS 3 ml) 3 ml PER PROTOCOL IV ; Start 11/04/18 at 09:00 Ondansetron HCl (Zofran Inj) 4 mg Q6H PRN IV NAUSEA/VOMITING; Start 11/04/18 at 09:00 Acetaminophen (Tylenol Tab) 650 mg Q6H PRN PO .PAIN 1-3 OR TEMP; Start 11/04/18 at 09:00 Acetaminophen/ Hydrocodone Bitart ([place] (5/325)) 1 tab Q6H PRN PO .MOD PAIN 4- 6 Last administered on 11/06/18at 14:32; Admin Dose 1 TAB; Start 11/04/18 at 09:00 Docusate Sodium (Colace) 100 mg Q12H PRN PO .CONSTIPATION; Start 11/04/18 at 09:00 Heparin Sodium (Porcine) (Heparin (5000 Units/1ml)) 5,000 unit Q12 SC Last administered on 11/05/18at 20:34; Admin Dose 5,000 UNIT; Start 11/04/18 at 09:00 Insulin Glargine (Lantus) 26 units DAILY@0800 SC Last administered on 11/06/18at 11:22; Admin Dose 26 UNITS; Start 11/04/18 at 09:00 Piperacillin Sod/ Tazobactam Sod 100 ml @ 200 mls/hr Q6 IVPB Last administered on 11/06/18at 14:30; Admin Dose 200 MLS/HR; Start 11/04/18 at 09:00 Vancomycin HCl (Vanco Iv Per Pharmacy) VANCOMYCIN PER PHARMACY PER PROTOCOL XX ; Start 11/04/18 at 09:00 Miscellaneous Information 1 ea NOTE XX ; Start 11/04/18 at 09:00 Glucose (Glutose) 15 gm Q15M PRN PO DECREASED GLUCOSE; Start 11/04/18 at 09:00 Glucose (Glutose) 22.5 gm Q15M PRN PO DECREASED GLUCOSE; Start 11/04/18 at 09:00 Dextrose (D50w Syringe) 25 ml Q15M PRN IV DECREASED GLUCOSE; Start 11/04/18 at 09:00 Dextrose (D50w Syringe) 50 ml Q15M PRN IV DECREASED GLUCOSE; Start 11/04/18 at 09:00 Glucagon (Glucagen) 1 mg Q15M PRN IM DECREASED GLUCOSE; Start 11/04/18 at 09:00 Glucose (Glutose) 15 gm Q15M PRN BUCCAL DECREASED GLUCOSE; Start 11/04/18 at 09:00 Miscellaneous Information Patients own medicat... BID@ XX ; Start 11/04/18 at 16:00 Sodium Hypochlorite (Dakins Diluted ()) 1 applic DAILY TP Last administered on 11/05/18at 10:26; Admin Dose 1 APPLIC; Start 11/05/18 at 09:00 Vancomycin HCl 1.5 gm/Sodium Chloride 250 ml @ 83.333 mls/ hr Q24H IVPB Last administered on 11/06/18at 10:10; Admin Dose 83.333 MLS/HR; Start 11/06/18 at 10:00 Povidone Iodine (Povidone-Iodine) 1 applic BID TOP Last administered on 11/05/18 at 20:36; Admin Dose 1 APPLIC; Start 11/05/18 at 21:00 Insulin Aspart (Novolog Insulin Pen) 8 unit WITH MEALS SC ; Start 11/06/18 at 17:35 Hydralazine HCl (Apresoline) 100 mg TID PO ; Start 11/06/18 at 21:00 Insulin Aspart (Novolog Insulin Pen) NOVOLOG *MILD* ALGORITHM WITH MEALS BEDTIME SC ; Start 11/06/18 at 18:05 Diagnostic Test (Pha) (Accu-Chek) 1 ea 02 XX ; Start 11/07/18 at 02:00 HERRERA MURILLO NP Nov 06, 2018 15:42
--- NOTE | 2018-11-06 16:29 | RADRPT ---
Echocardiogram Report Patient Name: María MCFARLANE ID: [id number] : 1945 (72y 11m)Study Date: 11/06/2018 3:45:35 PM Gender: MAccession #: [id number] Tech: Florin Melo RUST Location: [facility] Ref.Physician: KLEVER EM Height(Cm): BSA: Weight(Kg): Quality: AdequateOrder Physician: KLEVER EM Account #: Procedures: Echocardiographic Report: Transthoracic echocardiogram with complete 2D, M-Mode, and doppler examination. Indications: Pre-op. Measurements: 2D/M Mode Doppler Measurement Value Normal Range Measurement Value Normal Range LVIDd 2D 2.8 [ 4.2 - 5.8 ] cm AV Peak Waylon 1.2 [ 100.0 - 170.0 ] cm/sec LVIDs 2D 2.0 [ 2.5 - 4.0 ] cm AV Peak PG 6.0 [ 2.0 - 9.0 ] mmHg LVPWd 2D 1.1 [ 0.6 - 1.0 ] cm LVOT Peak Waylon 1.0 [ 70.0 - 110.0 ] cm/sec IVSd 2D 1.4 [ 0.6 - 1.0 ] cm LVOT Peak PG 4.0 [ 2.0 - 6.0 ] mmHg AoR Diam 2D 2.6 [ 2.6 - 3.4 ] cm MV E Peak Waylon 1.3 [ 60.0 - 130.0 ] cm/sec EDV 2D 30.3 [ 62.0 - 150.0 ] ml MV A Peak Waylon 0.4 [ 100.0 - 120.0 ] cm/sec ESV 2D 12.6 [ 21.0 - 61.0 ] ml MV E/A 3.5 [ 0.8 - 1.5 ] ratio EF 2D 58.4 [ 52.0 - 72.0 ] percent MV Decel Time 155 [ 104 - 258 ] msec LA Dimen 2D 3.1 [ 3.0 - 4.0 ] cm Lat E` Waylon 0.1 [ 10.0 - 15.0 ] cm/sec Lateral E/E` 15.3 [ 1.0 - 2.0 ] ratio Med E` Waylon 0.1 cm/sec MV E/A 3.5 [ 0.8 - 1.5 ] ratio RA Pressure 3.0 mmHg Findings: Left Ventricle: Normal left ventricular systolic function. Normal left ventricular cavity size. Sigmoid septum. Ejection fraction is visually estimated at 60 %. Tissue Doppler/Mitral Doppler indices are consistent with impaired relaxation (Stage I diastolic dysfunction). Right Ventricle: Normal right ventricular size. Normal right ventricular systolic function. Left Atrium: The left atrium is normal in size. Right Atrium: The right atrium is normal in size. Mitral Valve: Mild mitral leaflet calcification. Mild mitral annular calcification. Trace mitral regurgitation. Aortic Valve: No significant aortic stenosis or insufficiency. Aortic cusps appear mildly calcified. Tricuspid Valve: Normal appearance of the tricuspid valve. Unable to obtain RVSP due to minimal presence of tricuspid regurgitation. Pericardium: Normal pericardium with no significant pericardial effusion. Aorta: Normal aortic root. IVC: Normal size and normal respiratory collapse consistent with normal right atrial pressure. Conclusions: Normal left ventricular systolic function. Normal left ventricular cavity size. Sigmoid septum. Ejection fraction is visually estimated at 60 %. Tissue Doppler/Mitral Doppler indices are consistent with impaired relaxation (Stage I diastolic dysfunction). Mild mitral leaflet calcification. Mild mitral annular calcification. Trace mitral regurgitation. Normal appearance of the tricuspid valve. Unable to obtain RVSP due to minimal presence of tricuspid regurgitation. Electronically Signed By: Klever Em 2018-11-06 16:27:55 PDT
[2018-11-06] MEDS: DAKINS 0.0125%(1/40) 473 ML SOLUTION TP SCH (18:56)
[2018-11-06] MEDS: POVIDONE IODINE 10% 28.4 GM OINT TOP SCH ×2 (18:56→20:54)
[2018-11-06] MEDS: ATORVASTATIN 20 MG TAB PO SCH (20:44)
--- NOTE | 2018-11-06 23:07 | OPR ---
DATE OF OPERATION: 11/06/2018 PREOPERATIVE DIAGNOSIS: Left foot gangrene. POSTOPERATIVE DIAGNOSIS: Left foot gangrene. PROCEDURE PERFORMED: Abdominal aortogram with left lower extremity runoff. SURGEON: Klever Lott MD ANESTHESIA: Local with sedation. ESTIMATED BLOOD LOSS: Minimal. COMPLICATIONS: There were no intraprocedural complications. INDICATIONS: A 72-year-old diabetic hypertensive gentleman with a gangrene of the left fifth toe. I brought him in today for an angiogram and possible intervention. DESCRIPTION OF PROCEDURE: The patient was brought to the chemistry laboratory technician, placed on the table in supine pos ition. Right groin was prepped and draped in the usual sterile fashion. I began by infiltrating ove r the common femoral artery using about 10 mL of 1% Xylocaine. Using micropuncture needle, entered t he artery under ultrasound guidance. An 0.018 wire was inserted through the needle into the artery, and a micropuncture sheath was advanced over the wire and into the artery. I then advanced an 0.035 Bentson wire into the abdominal aorta, exchanged micropuncture sheath for a 5-Faroese sheath over the wire. I then advanced an Omniflush catheter into the infrarenal aorta and did an aortogram. I then used the Omniflush and the Bentson wire to advance the catheter down into the left superficial femora l artery and then did runoff down the left lower extremity. FINDINGS OF ANGIOGRAPHY: The infrarenal aorta of both common, external, and internal iliac arteries are widely patent. On the right, the common femoral artery is patent. On the left, there is a big b ulky and calcified plaque in the middle of the common femoral, but it is patent with flow around it. The profunda and superficial femoral arteries are patent. The SFA has diffuse areas of calcificatio n and irregularity, and there is some bulky popcorn-like plaque down in the distal SFA. The poplitea l artery is patent above and below the knee with about a 50% stenosis at the knee. Below the knee, t he popliteal artery occludes just above the trifurcation. The anterior tibial artery reconstitutes s everal centimeters distal but then it is diffusely diseased. The peroneal and posterior tibial arter ies reconstitute off of the TP trunk. The TP trunk is patent and reconstitutes from collaterals. Th en, the peroneal and posterior tibial are wide open, going all the way down across the ankle into the foot. Through the posterior tibial, there is a patent pedal arch. There is retrograde filling of t he anterior tibial and dorsalis pedis from the peroneal and posterior tibial collaterals. There was actually good runoff through the posterior tibial, mainly. I think it would be better off of the byp ass. He has an adequate greater saphenous vein, so I decided not to intervene. We then removed all the catheter sheaths and wires and held pressure on the right groin until there was good hemostasis. We then transferred back to his room in stable condition. He tolerated the procedure well without a ny complication. He is scheduled for a fem-PT bypass and will do a left femoral endarterectomy this Sunday. Dictated By: KLEVER PIERRE/BOBO Conf#: [id number] DID#: [id number] CC: TOMASA SCOTT; Darron Cota DPM; DARRIN RAMSAY MD; KARLA LAIRD NP; JEAN CLAUDE LARIOS DO;*EndCC *
[2018-11-07 02:28] VITALS: BP 131/62; PULSE 87; RESP 87
[2018-11-07] MEDS: ACCUCHECK AT 2AM (Patients on SS coverage) XX SCH (02:48)
[2018-11-07] MEDS: PIPER-TAZO 3.375 GM IV (PMX) 100 ML IVPB SCH ×2 (05:35→13:02)
--- NOTE | 2018-11-07 06:39 | CONS ---
DATE OF ADMISSION: 11/04/2018 DATE OF CONSULTATION: 11/06/2018 TYPE OF CONSULTATION: Cardiology. REASON FOR CONSULTATION: Preoperative evaluation. REQUESTING PHYSICIAN: Ruma Laird NP, from the hospitalist service. HISTORY OF PRESENT ILLNESS: Mr. Dasilva is a 72-year-old male known to myself from prior admissions at an outside hospital with a history of hypertension, dyslipidemia, peripheral arterial disease who presented with gangrenous changes of his toe. Initially upon arrival, temperature of 98.6, blood pressure 180/80, pulse 97, respiratory rate 18, satting 97%. The patient's labs revealed hemoglobin 12.1, platelet count of 271. ESR of 85. Sodium 139, potassium 4.2, creatinine 1.0, BUN 13, glucose of 235. The patient underwent a venous ultrasound revealing bilateral greater saphenous vein mapping. No DVTs. A renal ultrasound that revealed echogenic appearing renal parenchyma. A foot MRI which revealed multiple sequences degraded by motion. MRI of the right foot demonstrates chronic multilevel amputation irregularities and multilevel soft tissue chronic irregularity without evidence of acute osteomyelitis. An extremity arterial ultrasound revealing diffuse blunted waveforms to the left, compatible with diffuse vascular resistance and stenosis, moderate stenosis of the mid right SFA with blunted waveforms distally. The patient's electrocardiogram is not in the chart for my review at this time. The patient is admitted to floor where he has been placed on antihypertensives, aspirin, statin therapy and antibiotics. He is being followed by the vascular surgery service, the renal service for initial renal insufficiency that is now improved and the infectious disease service. The patient at this time denies chest pain, shortness of breath. The patient does not do much physical activity. Assess the patient's exercise tolerance. PAST MEDICAL HISTORY: As above in HPI. MEDICATIONS CURRENTLY IN HOSPITAL: 1. Vitamin D. 2. Hydralazine 100 mg 3 times daily. 3. Insulin. 4. Vancomycin. 5. Iodine. 6. Lipitor 20 mg at bedtime. 7. Aspirin 81 daily. 8. Gabapentin 300 mg b.i.d. 9. Protonix 40 daily. 10. Clonidine. 11. Tylenol. 12. Heparin 5000 subcu q.12. 13. Insulin. ALLERGIES: No known drug allergies. SOCIAL HISTORY: No current tobacco, ETOH or illicit drug use. FAMILY HISTORY: No history of sudden cardiac or early CAD. REVIEW OF SYSTEMS: As above in HPI. CONSTITUTIONAL: No fevers, chills. PULMONARY: No shortness of breath. CARDIOVASCULAR: No current chest pain. GASTROINTESTINAL: No vomiting. GENITOURINARY: No hematuria. MUSCULOSKELETAL: Gangrenous changes on the left. ENDOCRINE: Diabetes mellitus. PHYSICAL EXAMINATION: VITAL SIGNS: Temperature of 98, blood pressure most recently 132/66, pulse 92, respiratory rate 19, satting 96%. GENERAL: The patient is alert, awake, complaining of mild left toe pain. NECK: JVP approximately 8 to 9 cm of water. CHEST: Fair air movement throughout. HEART: Regular rate and rhythm. Normal S1, S2, I/ systolic murmur. Nondisplaced PMI. ABDOMEN: Positive bowel sounds, soft. EXTREMITIES: No significant pitting edema, difficult to palpate distal pulses bilateral posterior tibial, dorsalis pedis, left toe with gangrenous changes. LABORATORY DATA: As mentioned most recent from today, sodium 139, potassium 4.2, creatinine 1.0, BUN 13, white count 6.3, hemoglobin 12.6, platelet count 258. IMAGING STUDIES: As above in HPI. No further imaging studies for my review at this time. ECG: No electrocardiograms for my review at this time. IMPRESSION: 1. Preoperative evaluation prior to possible need for peripheral revascularization surgery. 2. Peripheral arterial disease with nonhealing gangrenous changes in left toe ulceration. 3. Hypertension, under reasonable control on current medications. 4. Dyslipidemia. 5. Diabetes mellitus. RECOMMENDATIONS: 1. At this time, would check a baseline EKG now, repeat EKG in the morning to assess for any significant abnormalities or changes. 2. Would send troponins q.6 x2 to assure the patient has not had any recent coronary syndrome in anticipation of upcoming need for possible surgery. 3. Check a 2D echo to further assess this patient's ejection fraction, wall motion and major abnormalities. 4. Continue local wound care. 5. Continue the patient's antibiotic therapy and continue the patient's current hydralazine and statin as well as aspirin therapy. 6. We will consider possible stress test for the patient if necessary depending on patient's ongoing hospital course and need for significant revascularization surgery for peripheral bypass. Thank you for allowing me to take part in the care of this patient. I will continue to follow along very closely with you as further recommendations will be made as the patient progresses through his inpatient hospital clinical course. Dictated By: KLEVER CHAHAL/BOBO Conf#: [id number] DID#: [id number] CC: TOMASA SCOTT; RUMA LAIRD CASINO ENFORCEMENT AGENT; KLEVER FOREMAN MD;*EndCC* MTDD
[2018-11-07 07:15] VITALS: BP 133/62; PULSE 84; RESP 18
[2018-11-07] MEDS: INSULIN ASPART [NOVOLOG] 3 ML PEN SC SCH ×6 (08:06→20:45)
[2018-11-07] MEDS: INSULIN GLARGINE [LANTus] (100 UNITS/ML) SYG SC SCH (08:08)
[2018-11-07] MEDS: PANTOPRAZOLE (EC) 40 MG TAB PO SCH (08:28)
[2018-11-07] MEDS: ASPIRIN (EC) 81 MG TAB PO SCH (08:28)
[2018-11-07] MEDS: HYDROCODONE/APAP (5/325) TAB PO PRN ×2 (08:28→14:07)
[2018-11-07] MEDS: GABAPENTIN 300 MG CAP PO SCH ×2 (08:28→20:39)
[2018-11-07] MEDS: NEBIVOLOL 5 MG TAB PO SCH (08:29)
[2018-11-07] MEDS: HEPARIN 5,000 UNIT/1 ML VIAL SC SCH ×2 (08:30→20:39)
[2018-11-07] MEDS: DAKINS 0.0125%(1/40) 473 ML SOLUTION TP SCH ×2 (08:37→20:46)
[2018-11-07] MEDS: POVIDONE IODINE 10% 28.4 GM OINT TOP SCH ×2 (08:37→20:46)
[2018-11-07] MEDS: VANCOMYCIN HCL 1.5 GM in SOD CHLORIDE 0.9% 250 ML IVPB SCH (10:07)
--- NOTE | 2018-11-07 11:08 | PN ---
DATE: 11/07/2018 SUBJECTIVE: The patient is stable, no events overnight. No hemoptysis, hematemesis or hematochezia. OBJECTIVE: VITAL SIGNS: Blood pressure 132/62, respiration 18, pulse 84, temperature 97.9. HEENT: Head is normocephalic. NECK: Supple. HEART: Regular rate. LUNGS: Show diminished breath sounds at the base. ABDOMEN: Soft, nontender to palpation without rebound or guarding. EXTREMITIES: Negative for clubbing, cyanosis, no edema. DERMATOLOGIC: No rashes. MUSCULOSKELETAL: No joint effusion. NEUROLOGIC: No change in exam. MEDICATIONS: The patient's medications have been reviewed. LABORATORY DATA: Has been reviewed. ASSESSMENT AND PLAN: 1. Nonoliguric kidney injury with previous baseline creatinine 0.79 mg/dL. Etiology of initial ROBERT is secondary to hemodynamics. The patient's renal function improved. The patient's renal function h as declined in last 24 hours. This may be associated with contrast-associated nephropathy as the pat ient underwent an angiogram. Will continue to monitor renal function closely. Continue supportive c are, renally dose all medication. 2. Anemia. Monitor hemoglobin and hematocrit levels. 3. Mineral bone disorder. Monitor calcium and phosphorus levels. 4. Peripheral vascular disease status post angiogram. Continue to monitor. Follow up with vascular surgery, podiatry. 5. Hypertension. Continue current blood pressure regimen. 6. Dyslipidemia. Continue statin therapy. 7. Neuropathy. Continue current medical management. 8. Hyperkalemia. Etiology is secondary to acute kidney injury, mild. Continue to monitor. The pat ient was placed on a renal diet. Dictated By: JEAN CLAUDE RUFFIN/BOBO Conf#: [id number] DID#: [id number] CC: DEEPAK CHAN DPM; TOMASA SCOTT;*EndCC*
[2018-11-07] MEDS: ASPIRIN 325 MG TAB PO SCH (12:08)
--- NOTE | 2018-11-07 12:25 | CONS ---
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 Appreciate vascular surgery input. Patient will benefit from left 5th digit amputation or possible partial 5th ray resection after vascular procedure. Likely plan for next week. Continue with IV abx per recommendations. Continue with dressing changes to the left foot and offload with pillows to prevent heel ulcerations. Wound cultures pending. Tight glycemic control. Consultation Date/Type/Reason Admit Date/Time Nov 04, 2018 at 07:34 Initial Consult Date Date/Time of Note DATE: 11/07/18 TIME: 12:25 24 HR Interval Summary Free Text/Dictation No acute events overnight. Exam/Review of Systems Exam Vitals Vital Signs Date Temp Pulse Resp B/P (MAP) Pulse Ox O2 O2 Flow FiO2 Time Delivery Rate 11/07/18 97.9 84 18 133/62 92 Room Air 07:15 (85) 11/06/18 2.0 13:25 Intake and Output 11/06/18 11/06/18 11/07/18 1515:00 23:00 07:00 IntakeIntake Total 350 ml 460 ml 550 ml BalanceBalance 350 ml 460 ml 550 ml Exam Unable to palpate DP/PT and popliteal pulses Absent protective sensations Left foot 5th digit gangrene with exposed bone, mild erythema surrounding ulcer site and mild purulence appreciated to the ulcer site. Measured 2 x 1.5 x 0.5cm fibronecrotic wound bed. No proximal streaking Left 2nd digit amputation site appreciated. Non invasive arterial studies IMPRESSION: 1. Diffuse blunted waveforms on the left compatible with diffuse vascular resistance and/or upstream stenosis. 2. Moderate stenosis of the mid right SFA with blunted waveforms distally. Results Result Diagram: 11/07/18 0438 11/07/18 0438 Results 24hrs Laboratory Tests Test 11/06/18 13:40 11/06/18 17:39 11/06/18 18:31 11/06/18 20:41 Bedside Glucose 179 147 184 Troponin I < 0.012 Test 11/07/18 00:27 11/07/18 02:48 11/07/18 04:38 11/07/18 08:04 Troponin I < 0.012 < 0.012 Bedside Glucose 184 201 White Blood Count 7.1 Red Blood Count 3.82 L Hemoglobin 11.5 L Hematocrit 37.1 L Mean Corpuscular 97.1 Volume Mean Corpuscular 30.1 Hemoglobin Mean Corpuscular 31.0 L Hemoglobin Concent Red Cell 13.2 Distribution Width Platelet Count 253 Mean Platelet Volume 10.4 Immature 0.400 Granulocytes % Neutrophils % 64.5 Lymphocytes % 22.1 Monocytes % 9.9 Eosinophils % 2.3 Basophils % 0.8 Nucleated Red Blood 0.0 Cells % Immature 0.030 Granulocytes # Neutrophils # 4.6 Lymphocytes # 1.6 Monocytes # 0.7 Eosinophils # 0.2 Basophils # 0.1 Nucleated Red Blood 0.0 Cells # Sodium Level 139 Potassium Level 5.4 H Chloride Level 99 Carbon Dioxide Level 31 Anion Gap 9 Blood Urea Nitrogen 21 H Creatinine 1.70 H Est Glomerular Filtrat Rate mL/min Glucose Level 194 Calcium Level 8.9 Test 11/07/18 12:05 Bedside Glucose 204 Medications Medication Current Medications Atorvastatin Calcium (Lipitor) 20 mg QHS PO Last administered on 11/06/18at 20:44; Admin Dose 20 MG; Start 11/04/18 at 21:00 Ergocalciferol (Drisdol) 50,000 unit Sa PO ; Start 11/09/18 at 09:00 Gabapentin (Neurontin) 300 mg BID PO Last administered on 11/07/18at 08:28; Admin Dose 300 MG; Start 11/04/18 at 09:00 Miscellaneous Medication (Bystolic) 20 mg DAILY PO Last administered on 11/07/18at 08:29; Admin Dose 20 MG; Start 11/04/18 at 09:00 Pantoprazole (Protonix Tab) 40 mg DAILY PO Last administered on 11/07/18at 08:28; Admin Dose 40 MG; Start 11/04/18 at 09:00 Clonidine (Catapres) 0.1 mg Q6H PRN PO SBP>160; Start 11/04/18 at 09:00 IV Flush (NS 3 ml) 3 ml PER PROTOCOL IV ; Start 11/04/18 at 09:00 Ondansetron HCl (Zofran Inj) 4 mg Q6H PRN IV NAUSEA/VOMITING; Start 11/04/18 at 09:00 Acetaminophen (Tylenol Tab) 650 mg Q6H PRN PO .PAIN 1-3 OR TEMP; Start 11/04/18 at 09:00 Acetaminophen/ Hydrocodone Bitart ([place] (5/325)) 1 tab Q6H PRN PO .MOD PAIN 4- 6 Last administered on 11/07/18at 08:28; Admin Dose 1 TAB; Start 11/04/18 at 09:00 Docusate Sodium (Colace) 100 mg Q12H PRN PO .CONSTIPATION; Start 11/04/18 at 09:00 Heparin Sodium (Porcine) (Heparin (5000 Units/1ml)) 5,000 unit Q12 SC Last administered on 11/07/18at 08:30; Admin Dose 5,000 UNIT; Start 11/04/18 at 09:00 Insulin Glargine (Lantus) 26 units DAILY@0800 SC Last administered on 11/07/18at 08:08; Admin Dose 26 UNITS; Start 11/04/18 at 09:00 Piperacillin Sod/ Tazobactam Sod 100 ml @ 200 mls/hr Q6 IVPB Last administered on 11/07/18at 05:35; Admin Dose 200 MLS/HR; Start 11/04/18 at 09:00 Vancomycin HCl (Vanco Iv Per Pharmacy) VANCOMYCIN PER PHARMACY PER PROTOCOL XX ; Start 11/04/18 at 09:00 Miscellaneous Information 1 ea NOTE XX ; Start 11/04/18 at 09:00 Glucose (Glutose) 15 gm Q15M PRN PO DECREASED GLUCOSE; Start 11/04/18 at 09:00 Glucose (Glutose) 22.5 gm Q15M PRN PO DECREASED GLUCOSE; Start 11/04/18 at 09:00 Dextrose (D50w Syringe) 25 ml Q15M PRN IV DECREASED GLUCOSE; Start 11/04/18 at 09:00 Dextrose (D50w Syringe) 50 ml Q15M PRN IV DECREASED GLUCOSE; Start 11/04/18 at 09:00 Glucagon (Glucagen) 1 mg Q15M PRN IM DECREASED GLUCOSE; Start 11/04/18 at 09:00 Glucose (Glutose) 15 gm Q15M PRN BUCCAL DECREASED GLUCOSE; Start 11/04/18 at 09:00 Miscellaneous Information Patients own medicat... BID@10,16 XX ; Start 11/04/18 at 16:00 Vancomycin HCl 1.5 gm/Sodium Chloride 250 ml @ 83.333 mls/ hr Q24H IVPB Last administered on 11/07/18 10:07; Admin Dose 83.333 MLS/HR; Start 11/06/18 at 10:00 Povidone Iodine (Povidone-Iodine) 1 applic BID TOP Last administered on 08:37; Admin Dose 1 APPLIC; Start 11/05/18 at 21:00 Insulin Aspart (Novolog Insulin Pen) 8 unit WITH MEALS SC Last administered on 11/07/18 12:08; Admin Dose 8 UNIT; Start 11/06/18 at 17:35 Hydralazine HCl (Apresoline) 100 mg TID PO Last administered on 11/07/18 08:29; Admin Dose 100 MG; Start 11/06/18 at 21:00 Insulin Aspart (Novolog Insulin Pen) NOVOLOG *MILD* ALGORITHM WITH MEALS BEDTIME SC Last administered on 11/07/18 12:07; Admin Dose 2 UNIT; Start 11/06/18 at 18:05 Diagnostic Test (Pha) (Accu-Chek) 1 ea 02 XX Last administered on 11/07/18 02:48; Admin Dose 1 EA; Start 11/07/18 at 02:00 Sodium Hypochlorite (Dakins Diluted (40)) 1 applic BID TP Last administered on 11/07/18 08:37; Admin Dose 1 APPLIC; Start 11/07/18 at 09:00 Aspirin (Aspirin) 325 mg DAILY PO Last administered on 11/07/18 12:08; Admin Dose 325 MG; Start 11/07/18 at 11:00 Miscellaneous Information (*Rx Drug Level Order Reminder*) 1 0900 ONCE XX ; Start 11/08/18 at 09:00; Stop 11/08/18 at 09:01 IVELISSE BLACKWELL DPM Nov 07, 2018 12:25
--- NOTE | 2018-11-07 13:29 | CONS ---
Assessment/Plan Assessment/Plan Hospital Course (Demo Recall) IMPRESSION: 1. Preoperative evaluation prior to possible need for peripheral revascularization surgery.-neg trop x 3 and NL EF by echo with no sig valve abnl 2. Peripheral arterial disease with nonhealing gangrenous changes in left toe ulceration. 3. Hypertension, under reasonable control on current medications. 4. Dyslipidemia. 5. Diabetes mellitus. Recc: -OK to proceed with surgery at overall moderate CV risk on current medications -Continue asa/statin -follow closely post-operatively for s/sx of cardiovascular complications inlcuding but not limited to the development of chest pain/hemodynamic instability/sob/uncontrolled cardiac arrythmias or congestive heart failure -Contineu asa -Contineu hydralazine -Continue abx's and f/u cx data -local wound care Consultation Date/Type/Reason Admit Date/Time Nov 04, 2018 at 07:34 Initial Consult Date 11/06/18 Type of Consult Cardiology Reason for Consultation preop Requesting Provider: KARLA LAIRD NP Date/Time of Note DATE: 11/07/18 TIME: 13:20 Exam/Review of Systems Vital Signs Vitals Vital Signs Date Temp Pulse Resp B/P (MAP) Pulse Ox O2 O2 Flow FiO2 Time Delivery Rate 11/07/18 97.9 84 18 133/62 92 Room Air 07:15 (85) 11/06/18 2.0 13:25 Intake and Output 11/06/18 11/06/18 11/07/18 1515:00 23:00 07:00 IntakeIntake Total 350 ml 460 ml 550 ml BalanceBalance 350 ml 460 ml 550 ml Exam Exam Review of Systems: CONSTITUTIONAL: No fevers, chills. PULMONARY: No sob CARDIOVASCULAR: No chest pain/palpitations GASTROINTESTINAL: No nausea/vomiting. GENITOURINARY: No hematuria/dysuria. MUSCULOSKELETAL: leg/foot pain PSYCHIATRIC: The patient denies depression. NEUROLOGIC: No weakness Constitutional: alert Psych: no complaints Head: normocephalic ENMT: mucosa pink and moist Neck: supple, jvd Respiratory: diminished breath sounds (at bases/B) Cardiovascular: regular rate and rhythm Gastrointestinal: soft, non-tender Musculoskeletal: muscle tone (normal) Extremities: other (covered by dressing) Labs Result Diagram: 11/07/18 0438 11/07/18 0438 Results 24hrs Laboratory Tests Test 11/06/18 13:40 11/06/18 17:39 11/06/18 18:31 11/06/18 20:41 Bedside Glucose 179 147 184 Troponin I < 0.012 Test 11/07/18 00:27 11/07/18 02:48 11/07/18 04:38 11/07/18 08:04 Troponin I < 0.012 < 0.012 Bedside Glucose 184 201 White Blood Count 7.1 Red Blood Count 3.82 L Hemoglobin 11.5 L Hematocrit 37.1 L Mean Corpuscular 97.1 Volume Mean Corpuscular 30.1 Hemoglobin Mean Corpuscular 31.0 L Hemoglobin Concent Red Cell 13.2 Distribution Width Platelet Count 253 Mean Platelet Volume 10.4 Immature 0.400 Granulocytes % Neutrophils % 64.5 Lymphocytes % 22.1 Monocytes % 9.9 Eosinophils % 2.3 Basophils % 0.8 Nucleated Red Blood 0.0 Cells % Immature 0.030 Granulocytes # Neutrophils # 4.6 Lymphocytes # 1.6 Monocytes # 0.7 Eosinophils # 0.2 Basophils # 0.1 Nucleated Red Blood 0.0 Cells # Sodium Level 139 Potassium Level 5.4 H Chloride Level 99 Carbon Dioxide Level 31 Anion Gap 9 Blood Urea Nitrogen 21 H Creatinine 1.70 H Est Glomerular Filtrat Rate mL/min Glucose Level 194 Calcium Level 8.9 Test 11/07/18 12:05 Bedside Glucose 204 Medications Medications Current Medications Atorvastatin Calcium (Lipitor) 20 mg QHS PO Last administered on 11/06/18at 20:44; Admin Dose 20 MG; Start 11/04/18 at 21:00 Ergocalciferol (Drisdol) 50,000 unit Sa PO ; Start 11/09/18 at 09:00 Gabapentin (Neurontin) 300 mg BID PO Last administered on 11/07/18at 08:28; Admin Dose 300 MG; Start 11/04/18 at 09:00 Miscellaneous Medication (Bystolic) 20 mg DAILY PO Last administered on 11/07/18at 08:29; Admin Dose 20 MG; Start 11/04/18 at 09:00 Pantoprazole (Protonix Tab) 40 mg DAILY PO Last administered on 11/07/18at 08:28; Admin Dose 40 MG; Start 11/04/18 at 09:00 Clonidine (Catapres) 0.1 mg Q6H PRN PO SBP>160; Start 11/04/18 at 09:00 IV Flush (NS 3 ml) 3 ml PER PROTOCOL IV ; Start 11/04/18 at 09:00 Ondansetron HCl (Zofran Inj) 4 mg Q6H PRN IV NAUSEA/VOMITING; Start 11/04/18 at 09:00 Acetaminophen (Tylenol Tab) 650 mg Q6H PRN PO .PAIN 1-3 OR TEMP; Start 11/04/18 at 09:00 Acetaminophen/ Hydrocodone Bitart ([place] (5/325)) 1 tab Q6H PRN PO .MOD PAIN 4- 6 Last administered on 11/07/18at 08:28; Admin Dose 1 TAB; Start 11/04/18 at 09:00 Docusate Sodium (Colace) 100 mg Q12H PRN PO .CONSTIPATION; Start 11/04/18 at 09:00 Heparin Sodium (Porcine) (Heparin (5000 Units/1ml)) 5,000 unit Q12 SC Last administered on 11/07/18at 08:30; Admin Dose 5,000 UNIT; Start 11/04/18 at 09:00 Insulin Glargine (Lantus) 26 units DAILY@0800 SC Last administered on 11/07/18at 08:08; Admin Dose 26 UNITS; Start 11/04/18 at 09:00 Piperacillin Sod/ Tazobactam Sod 100 ml @ 200 mls/hr Q6 IVPB Last administered on 11/07/18at 13:02; Admin Dose 200 MLS/HR; Start 11/04/18 at 09:00 Vancomycin HCl (Vanco Iv Per Pharmacy) VANCOMYCIN PER PHARMACY PER PROTOCOL XX ; Start 11/04/18 at 09:00 Miscellaneous Information 1 ea NOTE XX ; Start 11/04/18 at 09:00 Glucose (Glutose) 15 gm Q15M PRN PO DECREASED GLUCOSE; Start 11/04/18 at 09:00 Glucose (Glutose) 22.5 gm Q15M PRN PO DECREASED GLUCOSE; Start 11/04/18 at 09:00 Dextrose (D50w Syringe) 25 ml Q15M PRN IV DECREASED GLUCOSE; Start 11/04/18 at 09:00 Dextrose (D50w Syringe) 50 ml Q15M PRN IV DECREASED GLUCOSE; Start 11/04/18 at 09:00 Glucagon (Glucagen) 1 mg Q15M PRN IM DECREASED GLUCOSE; Start 11/04/18 at 09:00 Glucose (Glutose) 15 gm Q15M PRN BUCCAL DECREASED GLUCOSE; Start 11/04/18 at 09:00 Miscellaneous Information Patients own medicat... BID@10,16 XX ; Start 11/04/18 at 16:00 Vancomycin HCl 1.5 gm/Sodium Chloride 250 ml @ 83.333 mls/ hr Q24H IVPB Last administered on 11/07/18at 10:07; Admin Dose 83.333 MLS/HR; Start 11/06/18 at 10:00 Povidone Iodine (Povidone-Iodine) 1 applic BID TOP Last administered on 11/07/18 08:37; Admin Dose 1 APPLIC; Start 11/05/18 at 21:00 Insulin Aspart (Novolog Insulin Pen) 8 unit WITH MEALS SC Last administered on 11/07/18 12:08; Admin Dose 8 UNIT; Start 11/06/18 at 17:35 Hydralazine HCl (Apresoline) 100 mg TID PO Last administered on 11/07/18 08:29; Admin Dose 100 MG; Start 11/06/18 at 21:00 Insulin Aspart (Novolog Insulin Pen) NOVOLOG *MILD* ALGORITHM WITH MEALS BEDTIME SC Last administered on 11/07/18 12:07; Admin Dose 2 UNIT; Start 11/06/18 at 18:05 Diagnostic Test (Pha) (Accu-Chek) 1 ea 02 XX Last administered on 11/07/18 02:48; Admin Dose 1 EA; Start 11/07/18 at 02:00 Sodium Hypochlorite (Dakins Diluted (40)) 1 applic BID TP Last administered on 11/07/18 08:37; Admin Dose 1 APPLIC; Start 11/07/18 at 09:00 Aspirin (Aspirin) 325 mg DAILY PO Last administered on 11/07/18 12:08; Admin Dose 325 MG; Start 11/07/18 at 11:00 Miscellaneous Information (*Rx Drug Level Order Reminder*) 1 0900 ONCE XX ; Start 11/08/18 at 09:00; Stop 11/08/18 at 09:01 KLEVER HUNT Nov 07, 2018 13:29
[2018-11-07 14:00] VITALS: BP 134/66; PULSE 80; RESP 16
--- NOTE | 2018-11-07 14:10 | CONS ---
Assessment/Plan Assessment/Plan Hospital Course (Demo Recall) Awake and looks comfortable no fevers overnight WBC 7.1 BUN 21 creatinine 1.7 Microbiology: Cultures negative Antimicrobials: Vancomycin, Zosyn Physical examination: Well-developed elderly man who is awake in no distress head atraumatic normocephalic neck is supple chest rise symmetrical breath sounds diminished bases heart S1-S2 abdomen soft bowel sounds present extremities with left foot dressing intact Assessment: 1. Left foot gangrene 2. Peripheral arterial disease 3. Diabetes and hypertension 4. History of left foot second toe amputation 5. Acute kidney insufficiency possibly secondary to contrast yesterday Plan: Patient remains stable, change antibiotics to Rocephin and daptomycin, podiatry recommendations noted, patient is scheduled for bypass tomorrow Consultation Date/Type/Reason Admit Date/Time Nov 04, 2018 at 07:34 Initial Consult Date Type of Consult id Requesting Provider: KARLA LAIRD NP Date/Time of Note DATE: 11/07/18 TIME: 14:08 Exam/Review of Systems Exam Vitals Vital Signs Date Temp Pulse Resp B/P (MAP) Pulse Ox O2 O2 Flow FiO2 Time Delivery Rate 11/07/18 97.9 84 18 133/62 92 Room Air 07:15 (85) 11/06/18 2.0 13:25 Intake and Output 11/06/18 11/06/18 11/07/18 1515:00 23:00 07:00 IntakeIntake Total 350 ml 460 ml 550 ml BalanceBalance 350 ml 460 ml 550 ml Results Result Diagram: 11/07/18 0438 11/07/18 0438 Results 24hrs Laboratory Tests Test 11/06/18 17:39 11/06/18 18:31 11/06/18 20:41 11/07/18 00:27 Bedside Glucose 147 184 Troponin I < 0.012 < 0.012 Test 11/07/18 02:48 11/07/18 04:38 11/07/18 08:04 11/07/18 12:05 Bedside Glucose 184 201 204 White Blood Count 7.1 Red Blood Count 3.82 L Hemoglobin 11.5 L Hematocrit 37.1 L Mean Corpuscular 97.1 Volume Mean Corpuscular 30.1 Hemoglobin Mean Corpuscular 31.0 L Hemoglobin Concent Red Cell 13.2 Distribution Width Platelet Count 253 Mean Platelet Volume 10.4 Immature 0.400 Granulocytes % Neutrophils % 64.5 Lymphocytes % 22.1 Monocytes % 9.9 Eosinophils % 2.3 Basophils % 0.8 Nucleated Red Blood 0.0 Cells % Immature 0.030 Granulocytes # Neutrophils # 4.6 Lymphocytes # 1.6 Monocytes # 0.7 Eosinophils # 0.2 Basophils # 0.1 Nucleated Red Blood 0.0 Cells # Sodium Level 139 Potassium Level 5.4 H Chloride Level 99 Carbon Dioxide Level 31 Anion Gap 9 Blood Urea Nitrogen 21 H Creatinine 1.70 H Est Glomerular Filtrat Rate mL/min Glucose Level 194 Calcium Level 8.9 Troponin I < 0.012 Medications Medication Current Medications Atorvastatin Calcium (Lipitor) 20 mg QHS PO Last administered on 11/06/18at 20:44; Admin Dose 20 MG; Start 11/04/18 at 21:00 Ergocalciferol (Drisdol) 50,000 unit Sa PO ; Start 11/09/18 at 09:00 Gabapentin (Neurontin) 300 mg BID PO Last administered on 11/07/18at 08:28; Admin Dose 300 MG; Start 11/04/18 at 09:00 Miscellaneous Medication (Bystolic) 20 mg DAILY PO Last administered on 11/07/18at 08:29; Admin Dose 20 MG; Start 11/04/18 at 09:00 Pantoprazole (Protonix Tab) 40 mg DAILY PO Last administered on 11/07/18 08:28; Admin Dose 40 MG; Start 11/04/18 at 09:00 Clonidine (Catapres) 0.1 mg Q6H PRN PO SBP>160; Start 11/04/18 at 09:00 IV Flush (NS 3 ml) 3 ml PER PROTOCOL IV ; Start 11/04/18 at 09:00 Ondansetron HCl (Zofran Inj) 4 mg Q6H PRN IV NAUSEA/VOMITING; Start 11/04/18 at 09:00 Acetaminophen (Tylenol Tab) 650 mg Q6H PRN PO .PAIN 1-3 OR TEMP; Start 11/04/18 at 09:00 Acetaminophen/ Hydrocodone Bitart ([place] (5/325)) 1 tab Q6H PRN PO .MOD PAIN 4- 6 Last administered on 11/07/18at 08:28; Admin Dose 1 TAB; Start 11/04/18 at 09 :00 Docusate Sodium (Colace) 100 mg Q12H PRN PO .CONSTIPATION; Start 11/04/18 at 09:00 Heparin Sodium (Porcine) (Heparin (5000 Units/1ml)) 5,000 unit Q12 SC Last administered on 11/07/18at 08:30; Admin Dose 5,000 UNIT; Start 11/04/18 at 09:00 Insulin Glargine (Lantus) 26 units DAILY@0800 SC Last administered on 11/07/18at 08:08; Admin Dose 26 UNITS; Start 11/04/18 at 09:00 Piperacillin Sod/ Tazobactam Sod 100 ml @ 200 mls/hr Q6 IVPB Last administered on 11/07/18at 13:02; Admin Dose 200 MLS/HR; Start 11/04/18 at 09:00 Vancomycin HCl (Vanco Iv Per Pharmacy) VANCOMYCIN PER PHARMACY PER PROTOCOL XX ; Start 11/04/18 at 09:00 Miscellaneous Information 1 ea NOTE XX ; Start 11/04/18 at 09:00 Glucose (Glutose) 15 gm Q15M PRN PO DECREASED GLUCOSE; Start 11/04/18 at 09:00 Glucose (Glutose) 22.5 gm Q15M PRN PO DECREASED GLUCOSE; Start 11/04/18 at 09:00 Dextrose (D50w Syringe) 25 ml Q15M PRN IV DECREASED GLUCOSE; Start 11/04/18 at 09:00 Dextrose (D50w Syringe) 50 ml Q15M PRN IV DECREASED GLUCOSE; Start 11/04/18 at 09:00 Glucagon (Glucagen) 1 mg Q15M PRN IM DECREASED GLUCOSE; Start 11/04/18 at 09:00 Glucose (Glutose) 15 gm Q15M PRN BUCCAL DECREASED GLUCOSE; Start 11/04/18 at 09:00 Miscellaneous Information Patients own medicat... BID@ XX ; Start 11/04/18 at 16:00 Vancomycin HCl 1.5 gm/Sodium Chloride 250 ml @ 83.333 mls/ hr Q24H IVPB Last administered on 11/07/18at 10:07; Admin Dose 83.333 MLS/HR; Start 11/06/18 at 10:00 Povidone Iodine (Povidone-Iodine) 1 applic BID TOP Last administered on 11/07/18at 08:37; Admin Dose 1 APPLIC; Start 11/05/18 at 21:00 Insulin Aspart (Novolog Insulin Pen) 8 unit WITH MEALS SC Last administered on 11/07/18 12:08; Admin Dose 8 UNIT; Start 11/06/18 at 17:35 Hydralazine HCl (Apresoline) 100 mg TID PO Last administered on 11/07/18 08: 29; Admin Dose 100 MG; Start 11/06/18 at 21:00 Insulin Aspart (Novolog Insulin Pen) NOVOLOG *MILD* ALGORITHM WITH MEALS BEDTIME SC Last administered on 11/07/18at 12:07; Admin Dose 2 UNIT; Start 10/19 02/06 at 18:05 Diagnostic Test (Pha) (Accu-Chek) 1 ea 02 XX Last administered on 11/07/18 02:48; Admin Dose 1 EA; Start 11/07/18 at 02:00 Sodium Hypochlorite (Dakins Diluted (40)) 1 applic BID TP Last administered on 11/07/18 08:37; Admin Dose 1 APPLIC; Start 11/07/18 at 09:00 Aspirin (Aspirin) 325 mg DAILY PO Last administered on 11/07/18at 12:08; Admin Dose 325 MG; Start 11/07/18 at 11:00 Miscellaneous Information (*Rx Drug Level Order Reminder*) 1 0900 ONCE XX ; Start 11/08/18 at 09:00; Stop 11/08/18 at 09:01 HERRERA MURILLO NP Nov 07, 2018 14:10
--- NOTE | 2018-11-07 14:19 | PN ---
Date/Time of Note Date/Time of Note DATE: 11/07/18 TIME: 14:14 Assessment/Plan VTE Prophylaxis Risk score (from Nsg)>0 risk: 2 SCD applied (from Nsg): Yes Pharmacological prophylaxis: heparin Lines/Catheters IV Catheter Type (from Nrs): Saline Lock Urinary Cath still in place: No Assessment/Plan Hospital Course SUBJECTIVE: No acute overnight episodes. OBJECTIVE: Vital signs-see below PHYSICAL EXAM: Constitutional: Adequately built,not in acute distress. HEENT: Head atraumatic and normocephalic. Eyes: Extraocular muscles intact. Anicteric sclerae. Pupils equal bilaterally, reactive to light. NECK: Supple without lymph node. CHEST: Clear and good breath sounds equally. No wheezing. No rhonchi. HEART: S1, S2. Regular rate and rhythm. ABDOMEN: Soft/non tender with no rebound tenderness. Bowel sounds were present. EXTREMITIES: Left second toe amputated. Right fifth toe with gangrene/exposure of bone. Erythema/swelling around the base.no DP pulse appreciated both side. Palpable PT bilaterally. No cyanosis, clubbing or edema. NEUROLOGIC: Alert and oriented x3. No focal deficit. No sensory deficit. PSYCHOSOCIAL: No signs of depression. INTEGUMENTARY: No open wounds. ASSESSMENT AND PLAN:72 yo M w/htn, dm2, left 2nd toe amputation, neuropathy,dlp, PAD, rt 5th toe ulcer here w/worsening rt 5th toe gangrenosus ulcer.. Right fifth toe gangrenous ulcer -Femoral to tibial artery bypass tomorrow. Possible amputation of right fifth toe once vascular work-up is completed.. -Continue IV antimicrobials and follow-up cultures. -Wound care -Glycemic management -Follow-up vascular/podiatry recommendations Severe peripheral vascular disease -Status post aortogram and plan for Fem-tibial bypass tomorrow. -Continue to optimize neurovascular status with antihypertensives to keep blood pressure ~140/90, diet, nutrition, exercise, blood glucose control, and antiplatelets/anticoagulation. Poorly controlled DMII -improving -Basal/bolus insulin-titrate per need Acute kidney injury -Renal function worsened today likely secondary to contrast-induced nephropathy. -Follow-up nephrology recommendations and monitor renal function closely. Hyperkalemia -Continue holding SHANAE inhibitors. -We will repeat a dose of Kayexalate today. Essential HTN -Continue bb/hydralazine -PRN clonidine Peripheral neuropathy -cont. gabapentin Dyslipidemia -cont. statin Chronic anemia -Stable H&H. Monitor DVT prophylaxis: Heparin PUD prophylaxis: PPI Disposition: Follow-up vascular and podiatry recommendations. Follow-up final cultures. Continue antibiotics. Patient was seen in collaboration with . Result Diagram: 11/07/18 0438 11/07/18 0438 Results 24hrs Laboratory Tests Test 11/06/18 17:39 11/06/18 18:31 11/06/18 20:41 11/07/18 00:27 Bedside Glucose 147 184 Troponin I < 0.012 < 0.012 Test 11/07/18 02:48 11/07/18 04:38 11/07/18 08:04 11/07/18 12:05 Bedside Glucose 184 201 204 White Blood Count 7.1 Red Blood Count 3.82 L Hemoglobin 11.5 L Hematocrit 37.1 L Mean Corpuscular 97.1 Volume Mean Corpuscular 30.1 Hemoglobin Mean Corpuscular 31.0 L Hemoglobin Concent Red Cell 13.2 Distribution Width Platelet Count 253 Mean Platelet Volume 10.4 Immature 0.400 Granulocytes % Neutrophils % 64.5 Lymphocytes % 22.1 Monocytes % 9.9 Eosinophils % 2.3 Basophils % 0.8 Nucleated Red Blood 0.0 Cells % Immature 0.030 Granulocytes # Neutrophils # 4.6 Lymphocytes # 1.6 Monocytes # 0.7 Eosinophils # 0.2 Basophils # 0.1 Nucleated Red Blood 0.0 Cells # Sodium Level 139 Potassium Level 5.4 H Chloride Level 99 Carbon Dioxide Level 31 Anion Gap 9 Blood Urea Nitrogen 21 H Creatinine 1.70 H Est Glomerular Filtrat Rate mL/min Glucose Level 194 Calcium Level 8.9 Troponin I < 0.012 Exam/Review of Systems Exam Vitals Vital Signs Date Temp Pulse Resp B/P (MAP) Pulse Ox O2 O2 Flow FiO2 Time Delivery Rate 11/07/18 97.9 84 18 133/62 92 Room Air 07:15 (85) 11/06/18 2.0 13:25 Intake and Output 11/06/18 11/06/18 11/07/18 1515:00 23:00 07:00 IntakeIntake Total 350 ml 460 ml 550 ml BalanceBalance 350 ml 460 ml 550 ml Results Results 24hrs Laboratory Tests Test 11/06/18 17:39 11/06/18 18:31 11/06/18 20:41 11/07/18 00:27 Bedside Glucose 147 184 Troponin I < 0.012 < 0.012 Test 11/07/18 02:48 11/07/18 04:38 11/07/18 08:04 11/07/18 12:05 Bedside Glucose 184 201 204 White Blood Count 7.1 Red Blood Count 3.82 L Hemoglobin 11.5 L Hematocrit 37.1 L Mean Corpuscular 97.1 Volume Mean Corpuscular 30.1 Hemoglobin Mean Corpuscular 31.0 L Hemoglobin Concent Red Cell 13.2 Distribution Width Platelet Count 253 Mean Platelet Volume 10.4 Immature 0.400 Granulocytes % Neutrophils % 64.5 Lymphocytes % 22.1 Monocytes % 9.9 Eosinophils % 2.3 Basophils % 0.8 Nucleated Red Blood 0.0 Cells % Immature 0.030 Granulocytes # Neutrophils # 4.6 Lymphocytes # 1.6 Monocytes # 0.7 Eosinophils # 0.2 Basophils # 0.1 Nucleated Red Blood 0.0 Cells # Sodium Level 139 Potassium Level 5.4 H Chloride Level 99 Carbon Dioxide Level 31 Anion Gap 9 Blood Urea Nitrogen 21 H Creatinine 1.70 H Est Glomerular Filtrat Rate mL/min Glucose Level 194 Calcium Level 8.9 Troponin I < 0.012 Medications Medication Current Medications Atorvastatin Calcium (Lipitor) 20 mg QHS PO Last administered on 11/06/18at 20:44; Admin Dose 20 MG; Start 11/04/18 at 21:00 Ergocalciferol (Drisdol) 50,000 unit Sa PO ; Start 11/09/18 at 09:00 Gabapentin (Neurontin) 300 mg BID PO Last administered on 11/07/18at 08:28; Ad min Dose 300 MG; Start 11/04/18 at 09:00 Miscellaneous Medication (Bystolic) 20 mg DAILY PO Last administered on 11/07/18at 08:29; Admin Dose 20 MG; Start 11/04/18 at 09:00 Pantoprazole (Protonix Tab) 40 mg DAILY PO Last administered on 11/07/18at 08:28; Admin Dose 40 MG; Start 11/04/18 at 09:00 Clonidine (Catapres) 0.1 mg Q6H PRN PO SBP>160; Start 11/04/18 at 09:00 IV Flush (NS 3 ml) 3 ml PER PROTOCOL IV ; Start 11/04/18 at 09:00 Ondansetron HCl (Zofran Inj) 4 mg Q6H PRN IV NAUSEA/VOMITING; Start 11/04/18 at 09:00 Acetaminophen (Tylenol Tab) 650 mg Q6H PRN PO .PAIN 1-3 OR TEMP; Start 11/04/18 at 09:00 Acetaminophen/ Hydrocodone Bitart ([place] (5/325)) 1 tab Q6H PRN PO .MOD PAIN 4- 6 Last administered on 11/07/18at 14:07; Admin Dose 1 TAB; Start 11/04/18 at 09:00 Docusate Sodium (Colace) 100 mg Q12H PRN PO .CONSTIPATION; Start 11/04/18 at 09:00 Heparin Sodium (Porcine) (Heparin (5000 Units/1ml)) 5,000 unit Q12 SC Last administered on 11/07/18at 08:30; Admin Dose 5,000 UNIT; Start 11/04/18 at 09:00 Insulin Glargine (Lantus) 26 units DAILY@0800 SC Last administered on 11/07/18at 08:08; Admin Dose 26 UNITS; Start 11/04/18 at 09:00 Miscellaneous Information 1 ea NOTE XX ; Start 11/04/18 at 09:00 Glucose (Glutose) 15 gm Q15M PRN PO DECREASED GLUCOSE; Start 11/04/18 at 09:00 Glucose (Glutose) 22.5 gm Q15M PRN PO DECREASED GLUCOSE; Start 11/04/18 at 09:00 Dextrose (D50w Syringe) 25 ml Q15M PRN IV DECREASED GLUCOSE; Start 11/04/18 at 09:00 Dextrose (D50w Syringe) 50 ml Q15M PRN IV DECREASED GLUCOSE; Start 11/04/18 at 09:00 Glucagon (Glucagen) 1 mg Q15M PRN IM DECREASED GLUCOSE; Start 11/04/18 at 09:00 Glucose (Glutose) 15 gm Q15M PRN BUCCAL DECREASED GLUCOSE; Start 11/04/18 at 09:00 Miscellaneous Information Patients own medicat... BID@10,16 XX ; Start 11/04/18 at 16:00 Povidone Iodine (Povidone-Iodine) 1 applic BID TOP Last administered on 11/07/18at 08:37; Admin Dose 1 APPLIC; Start 11/05/18 at 21:00 Insulin Aspart (Novolog Insulin Pen) 8 unit WITH MEALS SC Last administered on 11/07/18 12:08; Admin Dose 8 UNIT; Start 11/06/18 at 17:35 Hydralazine HCl (Apresoline) 100 mg TID PO Last administered on 11/07/18 14:04; Admin Dose 100 MG; Start 11/06/18 at 21:00 Insulin Aspart (Novolog Insulin Pen) NOVOLOG *MILD* ALGORITHM WITH MEALS BEDTIME SC Last administered on 11/07/18 12:07; Admin Dose 2 UNIT; Start 11/06/18 at 18:05 Diagnostic Test (Pha) (Accu-Chek) 1 ea 02 XX Last administered on 11/07/18 02:48; Admin Dose 1 EA; Start 11/07/18 at 02:00 Sodium Hypochlorite (Dakins Diluted (/40)) 1 applic BID TP Last administered on 11/07/18 08:37; Admin Dose 1 APPLIC; Start 11/07/18 at 09:00 Aspirin (Aspirin) 325 mg DAILY PO Last administered on 11/07/18 12:08; Admin Dose 325 MG; Start 11/07/18 at 11:00 Miscellaneous Information (*Rx Drug Level Order Reminder*) 1 0900 ONCE XX ; Start 11/08/18 at 09:00; Stop 11/08/18 at 09:01 Daptomycin 510 mg/ Sodium Chloride 100 ml @ 200 mls/hr Q24H IVPB ; Start 11/07/18 at 14:30; Status UNV Ceftriaxone Sodium 50 ml @ 100 mls/hr Q24H IVPB ; Start 11/07/18 at 14:30; Status UNV KARLA LAIRD NP Nov 07, 2018 14:19
[2018-11-07] MEDS: CEFTRIAXONE 1 GM/50 ML (PMX) 50 ML IVPB SCH (14:50)
[2018-11-07] MEDS ORDERED: DAPTOMYCIN IVPB SCH (16:00)
[2018-11-07] MEDS ORDERED: SOD CHLORIDE 0.9% IVPB SCH (16:00)
--- NOTE | 2018-11-07 16:03 | PREAC ---
Date/Time of Note Date/Time of Note DATE: 11/07/18 TIME: 16:02 Anesthesia Eval and Record Evaluation Time Pre-Procedure Interview DATE: 11/07/18 TIME: 16:02 Age 72 Sex male NPO: 8 hrs Preoperative diagnosis Right fifth toe gangrenous ulcer Planned procedure LEFT FEMORAL TO PEDAL BYPASS Past Medical History Past Medical History: Includes Cardio: HTN, Dyslipidemia, Other (PAD) Endo: Diabetes Neuro: Peripheral neuropathy Renal: ROBERT Heme: Anemia Surgery & Anesthesia Issues No known issue Meds Anticoagulation: No Beta Francia within 24 hr: No Reason Beta Francia not given: Pt. not on B-Francia Active Scripts Silver Sulfadiazine* (Silvadene*) 1% - 20 Gm Cream.gm., 1 APPLIC TOP DAILY, #1 TUB Prov:JESSIE WONG MD 06/12/18 Amoxicillin-Clavulanate K* (Augmentin*) 875 Mg Tab, 875 MG PO BID, #28 TAB Prov:AMANDA GOMEZ MD 06/08/14 Reported Medications Insulin Aspart (Novolog Mix (70/30)) 100 Units/Ml Soln, 28 SC with diinner, VIAL 11/04/18 Insulin Aspart (Novolog Mix (70/30)) 100 Units/Ml Soln, 38 SC WITH BREAKFAST, VIAL 11/04/18 Benazepril Hcl* (Benazepril Hcl*) 40 Mg Tablet, 40 MG PO DAILY, #30 TAB 11/04/18 Ergocalciferol (Vitamin D2) (VITAMIN D2) 50,000 Unit Capsule, 13342 UNIT PO weekly for saturdays, CAP 11/04/18 Omeprazole* (Omeprazole*) 20 Mg Capsule.dr, 20 MG PO DAILY, #30 CAP 11/04/18 Aspirin* (Aspirin* EC) 81 Mg Tablet.dr, 81 MG PO DAILY, TAB 11/04/18 Gabapentin* (Gabapentin*) 300 Mg Capsule, 300 MG PO BID, #60 CAP 11/04/18 Nebivolol Hcl* (Bystolic*) 20 Mg Tablet, 20 MG PO DAILY, #30 TAB 11/04/18 Atorvastatin Calcium* (Atorvastatin Calcium*) 20 Mg Tablet, 20 MG PO QHS, #30 TAB 11/04/18 Sulfasalazine (Azulfidine) 500 Mg Tab, 1000 MG PO TID, TAB 06/02/14 Discontinued Reported Medications Simvastatin (Simvastatin) 40 Mg Tablet, 40 MG PO DAILY, TAB 06/02/14 Famotidine* (Pepcid*) Unknown Strength Tablet, PO DAILY, TAB 06/02/14 Hum Insulin Nph/Reg Insulin Hm (Humulin 70-30 Vial) 100 Units/Ml Vial, SQ SLIDING SCALE, VIAL 03/05/14 Benazepril Hcl* (Benazepril Hcl*) 20 Mg Tablet, 20 MG PO DAILY, TAB 03/05/14 Discontinued Scripts Hydrocodone Bit-Acetaminophen* ([place]*) 5-325 Mg Tab, 1 TAB PO Q4H PRN for PAIN, #14 TAB Prov:ALESIA BREWER PA-C 12/17/14 Clindamycin Hcl* (Clindamycin Hcl*) 300 Mg Capsule, 300 MG PO Q8 for infection for 7 Days, CAP Prov:ALESIA BREWER PA-C 12/17/14 Acetaminophen* (Tylophen*) 500 Mg Capsule, 1 CAP PO Q6H PRN for PAIN AND OR ELEVATED TEMP, #20 CAP Prov:DESHAWN ATKINS 12/09/14 Sulfamethoxazole-Trimethoprim* (Bactrim* DS) 800-160 Mg Tab, 1 TAB PO BID for 5 Days, TAB Prov:KAROL FISHMAN PA-C 11/29/14 Sulfamethoxazole-Trimethoprim* (Bactrim* DS) 800-160 Mg Tab, 1 TAB PO BID for 10 Days, TAB Prov:EVERETT SCHWAB PA-C 11/13/14 Cephalexin* (Keflex*) 500 Mg Capsule, 500 MG PO QID for 7 Days, CAP Prov:EVERETT SCHWAB PA-C 11/13/14 Docusate Sodium* (Colace*) 100 Mg Cap, 100 MG PO BID, #60 Prov:AMANDA GOMEZ MD 06/08/14 Prednisone (Prednisone) 10 Mg Tab, 30 MG PO DAILY, #30 TAB Prov:AMANDA GOMEZ MD 06/08/14 Insulin Glargine* (Lantus*) 100 Unit/Ml Soln, 35 UNIT SC HS, #2 Prov:AMANDA GOMEZ MD 06/08/14 Current Medications Atorvastatin Calcium (Lipitor) 20 mg QHS PO Last administered on 11/06/18at 20:44; Admin Dose 20 MG; Start 11/04/18 at 21:00 Ergocalciferol (Drisdol) 50,000 unit Sa PO ; Start 11/09/18 at 09:00 Gabapentin (Neurontin) 300 mg BID PO Last administered on 11/07/18at 08:28; Admin Dose 300 MG; Start 11/04/18 at 09:00 Miscellaneous Medication (Bystolic) 20 mg DAILY PO Last administered on 11/07/18at 08:29; Admin Dose 20 MG; Start 11/04/18 at 09:00 Pantoprazole (Protonix Tab) 40 mg DAILY PO Last administered on 11/07/18at 08:28 ; Admin Dose 40 MG; Start 11/04/18 at 09:00 Clonidine (Catapres) 0.1 mg Q6H PRN PO SBP>160; Start 11/04/18 at 09:00 IV Flush (NS 3 ml) 3 ml PER PROTOCOL IV ; Start 11/04/18 at 09:00 Ondansetron HCl (Zofran Inj) 4 mg Q6H PRN IV NAUSEA/VOMITING; Start 11/04/18 at 09:00 Acetaminophen (Tylenol Tab) 650 mg Q6H PRN PO .PAIN 1-3 OR TEMP; Start 11/04/18 at 09:00 Acetaminophen/ Hydrocodone Bitart ([place] (5/325)) 1 tab Q6H PRN PO .MOD PAIN 4- 6 Last administered on 11/07/18at 14:07; Admin Dose 1 TAB; Start 11/04/18 at 09:00 Docusate Sodium (Colace) 100 mg Q12H PRN PO .CONSTIPATION; Start 11/04/18 at 09:00 Heparin Sodium (Porcine) (Heparin (5000 Units/1ml)) 5,000 unit Q12 SC Last administered on 11/07/18at 08:30; Admin Dose 5,000 UNIT; Start 11/04/18 at 09:00 Miscellaneous Information 1 ea NOTE XX ; Start 11/04/18 at 09:00 Glucose (Glutose) 15 gm Q15M PRN PO DECREASED GLUCOSE; Start 11/04/18 at 09:00 Glucose (Glutose) 22.5 gm Q15M PRN PO DECREASED GLUCOSE; Start 11/04/18 at 09:00 Dextrose (D50w Syringe) 25 ml Q15M PRN IV DECREASED GLUCOSE; Start 11/04/18 at 09:00 Dextrose (D50w Syringe) 50 ml Q15M PRN IV DECREASED GLUCOSE; Start 11/04/18 at 09:00 Glucagon (Glucagen) 1 mg Q15M PRN IM DECREASED GLUCOSE; Start 11/04/18 at 09:00 Glucose (Glutose) 15 gm Q15M PRN BUCCAL DECREASED GLUCOSE; Start 11/04/18 at 09:00 Miscellaneous Information Patients own medicat... BID@10,16 XX ; Start 11/04/18 at 16:00 Povidone Iodine (Povidone-Iodine) 1 applic BID TOP Last administered on 11/07/18at 08:37; Admin Dose 1 APPLIC; Start 11/05/18 at 21:00 Hydralazine HCl (Apresoline) 100 mg TID PO Last administered on 11/07/18at 14:04; Admin Dose 100 MG; Start 11/06/18 at 21:00 Insulin Aspart (Novolog Insulin Pen) NOVOLOG *MILD* ALGORITHM WITH MEALS BEDTIME SC Last administered on 11/07/18at 12:07; Admin Dose 2 UNIT; Start 11/06/18 at 18:05 Diagnostic Test (Pha) (Accu-Chek) 1 ea 02 XX Last administered on 11/07/18at 02:48; Admin Dose 1 EA; Start 11/07/18 at 02:00 Sodium Hypochlorite (Dakins Diluted (/40)) 1 applic BID TP Last administered on 11/07/18at 08:37; Admin Dose 1 APPLIC; Start 11/07/18 at 09:00 Aspirin (Aspirin) 325 mg DAILY PO Last administered on 11/07/18at 12:08; Admin Dose 325 MG; Start 11/07/18 at 11:00 Daptomycin 510 mg/ Sodium Chloride 100 ml @ 200 mls/hr Q24H IVPB ; Start 11/07/18 at 16:00 Ceftriaxone Sodium 50 ml @ 100 mls/hr Q24H IVPB Last administered on 11/07/18at 14:50; Admin Dose 100 MLS/HR; Start 11/07/18 at 14:30 Insulin Aspart (Novolog Insulin Pen) 10 unit WITH MEALS SC ; Start 11/07/18 at 17:35 Insulin Glargine (Lantus) 30 units DAILY@0800 SC ; Start 11/08/18 at 08:00 Meds reviewed: Yes Allergies Coded Allergies: No Known Allergy (Unverified , 11/04/18) Allergies Reviewed: Yes Labs/Studies Labs Reviewed: Reviewed by anesthesiologist Result Diagram: 11/07/18 0438 11/07/18 1440 Laboratory Tests 11/07/18 04:38 11/07/18 14:40 test: N/A Studies: ECG (SR), 2D Echo (EF 60%) Pre-procedure Exam Last vitals Vital Signs Date Temp Pulse Resp B/P (MAP) Pulse Ox O2 O2 Flow FiO2 Time Delivery Rate 11/07/18 97.8 80 16 134/66 95 Room Air 14:00 (88) 11/06/18 2.0 13:25 Airway: Adequate mouth opening Mallampati: Mallampati II Teeth: Normal Lung: Normal Heart: Normal ASA Physical Status ASA physical status: 3 Emergency: None Planned Anesthetic General/MAC: ETT Pre-operative Attestations Prior to commencing anesthesia and surgery, the patient was re-evaluated, there was verification of: *The patient's identity *The results of appropriate recent lab work and preoperative vital signs *The above evaluation not changing prior to induction *Anesthetic plan, risk benefits, alternative and complications discussed with patient/family; questions answered; patient/family understands, accepts and wishes to proceed. AGUILAR INGRAM Nov 07, 2018 16:03
[2018-11-07] MEDS ORDERED: INSULIN ASPART [NOVOLOG] 3 ML PEN SC SCH (17:35)
[2018-11-07 20:35] VITALS: BP 158/66; PULSE 82; RESP 16
[2018-11-07] MEDS: ATORVASTATIN 20 MG TAB PO SCH (20:39)
[2018-11-08] VITALS (60 sets, daily range): BP systolic 70–176; BP diastolic 34–96; PULSE 78–114; RESP 10–25
[2018-11-08] MEDS: SOD CHLORIDE 0.9% 1,000 ML IV SCH ×2 (01:20→12:49)
[2018-11-08] MEDS: ACCUCHECK AT 2AM (Patients on SS coverage) XX SCH (01:53)
[2018-11-08] MEDS: INSULIN ASPART [NOVOLOG] 3 ML PEN SC SCH ×6 (06:15→22:20)
[2018-11-08] MEDS: INSULIN GLARGINE [LANTus] (100 UNITS/ML) SYG SC SCH (08:00)
[2018-11-08] MEDS: ASPIRIN 325 MG TAB PO SCH (08:49)
[2018-11-08] MEDS: GABAPENTIN 300 MG CAP PO SCH ×2 (08:49→22:59)
[2018-11-08] MEDS: NEBIVOLOL 5 MG TAB PO SCH (08:49)
[2018-11-08] MEDS: HEPARIN 5,000 UNIT/1 ML VIAL SC SCH (08:50)
[2018-11-08] MEDS: PANTOPRAZOLE (EC) 40 MG TAB PO SCH (08:50)
[2018-11-08] MEDS: hydrALAzine 20 MG INJ IV PRN (08:59)
[2018-11-08] MEDS: morphine 2 MG INJ IV PRN (09:00)
[2018-11-08] MEDS: DAKINS 0.0125%(1/40) 473 ML SOLUTION TP SCH (09:08)
[2018-11-08] MEDS: POVIDONE IODINE 10% 28.4 GM OINT TOP SCH ×2 (09:08→20:55)
[2018-11-08] MEDS ORDERED: LIDOCAINE 1% (MPF) 30 ML INJ ONE (09:45)
[2018-11-08] MEDS ORDERED: HEPARIN 1000 UNITS/ML 10 ML INJ ONE ×2 (09:45→12:06)
[2018-11-08] MEDS ORDERED: METOCLOPRAMIDE 10 MG INJ ONE (10:00)
[2018-11-08] MEDS ORDERED: ONDANSETRON 4 MG INJ ONE (10:00)
[2018-11-08] MEDS ORDERED: MIDAZOLAM 1 MG/ML 2 ML INJ ONE (10:00)
[2018-11-08] MEDS ORDERED: morphine SULFATE/PF (10 MG/10 ML) INJ ONE (10:00)
[2018-11-08] MEDS ORDERED: HEPARIN 1000 UNITS/ML 10 ML INJ IRR ONE (10:00)
[2018-11-08] MEDS ORDERED: PROPOFOL 20 ML ONE (10:00)
[2018-11-08] MEDS ORDERED: CEFAZOLIN 1 GM INJ ONE (10:00)
--- NOTE | 2018-11-08 10:06 | PN ---
DATE: 11/08/2018 SUBJECTIVE: The patient is stable. No events overnight. No fever, chills, nausea or vomiting. OBJECTIVE: VITAL SIGNS: Blood pressure is 176/78, respirations 18, pulse 85, temperature 98.4. HEENT: Head is normocephalic. NECK: Supple. HEART: Regular rate. LUNGS: Diminished breath sounds at the base. ABDOMEN: Soft, nontender to palpation without rebound or guarding. EXTREMITIES: Negative for clubbing, cyanosis, no edema. DERMATOLOGIC: No rashes. MUSCULOSKELETAL: No joint effusion. NEUROLOGIC: No change in exam. MEDICATIONS: Reviewed. LABORATORY DATA: Reviewed. IMAGING STUDIES: Reviewed. ASSESSMENT AND PLAN: 1. Nonoliguric acute kidney injury with baseline creatinine of 0.79 mg/dL. Etiology of acute kidney injury is secondary to hemodynamics, possible contrast associated nephropathy. The patient is impro damion with IV hydration. Continue current treatment plan, supportive care, renally dose all medication s. 2. Anemia. Monitor hemoglobin and hematocrit levels. 3. Mineral bone disorder. Monitor calcium and phosphorus levels. 4. Peripheral vascular disease. Continue to monitor. Follow up with surgery and podiatry. 5. Hypertension. Continue current blood pressure regimen. 6. Dyslipidemia. Continue statin therapy. 7. Neuropathy. Continue medical management. 8. Status post hyperkalemia. Dictated By: JEAN CLAUDE LARIOS DO NR/NTS Conf#: [id number] DID#: [id number] CC: FRANTZ SCHWAB MD; TOMASA SCOTT; DEEPAK CHAN DPM;*EndCC*
[2018-11-08] MEDS ORDERED: ETOMIDATE 20 MG INJ ONE ×2 (10:23→10:53)
[2018-11-08] MEDS ORDERED: FENTAnyl 50 MCG/ML VIAL ONE (10:28)
[2018-11-08] MEDS ORDERED: PHENYLephrine (100 MCG/ML) 10ML SYG ONE ×2 (10:52→11:59)
[2018-11-08] MEDS ORDERED: EPHEDrine 25 MG/5 ML SYG ONE (10:52)
[2018-11-08] MEDS ORDERED: GELATIN SIZE 100 SPONGE TOP ONE ×2 (11:20→13:40)
[2018-11-08] MEDS ORDERED: THROMBIN (BOVINE) 5,000 UNIT VIAL TP ONE ×3 (11:20→14:01)
[2018-11-08] MEDS ORDERED: GELATIN SIZE 100 SPONGE ONE ×2 (11:25→14:16)
--- NOTE | 2018-11-08 11:37 | CONS ---
Assessment/Plan Assessment/Plan Hospital Course (Demo Recall) IMPRESSION: 1. Preoperative evaluation prior to possible need for peripheral revascularization surgery.-neg trop x 3 and NL EF by echo with no sig valve abnl 2. Peripheral arterial disease with nonhealing gangrenous changes in left toe ulceration. 3. Hypertension, under reasonable control on current medications. 4. Dyslipidemia. 5. Diabetes mellitus. Recc: -OK to proceed with surgery at overall moderate CV risk on current medications -TO OR today -Continue asa/statin/hydralazine post-op -follow closely post-operatively for s/sx of cardiovascular complications inlcuding but not limited to the development of chest pain/hemodynamic instability/sob/uncontrolled cardiac arrythmias or congestive heart failure -Continue abx's and f/u cx data -local wound care -check post-op ecg Consultation Date/Type/Reason Admit Date/Time Nov 04, 2018 at 07:34 Initial Consult Date 11/06/18 Type of Consult Cardiology Reason for Consultation preop Requesting Provider: KARLA LAIRD NP Date/Time of Note DATE: 11/08/18 TIME: 11:35 Exam/Review of Systems Vital Signs Vitals Vital Signs Date Temp Pulse Resp B/P (MAP) Pulse Ox O2 O2 Flow FiO2 Time Delivery Rate 11/08/18 98.4 85 18 176/78 96 Room Air 08:19 (110) 11/06/18 2.0 13:25 Intake and Output 11/07/18 11/07/18 11/08/18 1515:00 23:00 07:00 IntakeIntake Total 950 ml 450 ml 275 ml BalanceBalance 950 ml 450 ml 275 ml Exam Exam Review of Systems: CONSTITUTIONAL: No fevers, chills. PULMONARY: No sob CARDIOVASCULAR: No chest pain/palpitations GASTROINTESTINAL: No nausea/vomiting. GENITOURINARY: No hematuria/dysuria. MUSCULOSKELETAL: No myagias/arthalgias. PSYCHIATRIC: The patient denies depression. NEUROLOGIC: No weakness Constitutional: alert Psych: no complaints Head: normocephalic ENMT: mucosa pink and moist Neck: supple, jvd Respiratory: diminished breath sounds (at bases/B) Cardiovascular: regular rate and rhythm Gastrointestinal: soft, non-tender Musculoskeletal: muscle tone (normal) Extremities: other (foor covered by dressing) Labs Result Diagram: 11/08/18 0541 11/08/18 0541 Results 24hrs Laboratory Tests Test 11/07/18 12:05 11/07/18 14:40 11/07/18 17:25 11/07/18 20:42 Bedside Glucose 204 76 207 Potassium Level 4.7 Test 11/08/18 01:19 11/08/18 05:41 11/08/18 06:10 11/08/18 08:29 Bedside Glucose 189 198 170 White Blood Count 6.1 Red Blood Count 3.76 L Hemoglobin 11.4 L Hematocrit 36.2 L Mean Corpuscular 96.3 Volume Mean Corpuscular 30.3 Hemoglobin Mean Corpuscular 31.5 L Hemoglobin Concent Red Cell 12.9 Distribution Width Platelet Count 222 Mean Platelet Volume 9.9 Immature 0.300 Granulocytes % Neutrophils % 59.5 Lymphocytes % 24.3 Monocytes % 11.3 H Eosinophils % 3.6 Basophils % 1.0 Nucleated Red Blood 0.0 Cells % Immature 0.020 Granulocytes # Neutrophils # 3.6 Lymphocytes # 1.5 Monocytes # 0.7 Eosinophils # 0.2 Basophils # 0.1 Nucleated Red Blood 0.0 Cells # Sodium Level 139 Potassium Level 4.5 Chloride Level 104 Carbon Dioxide Level 28 Anion Gap 7 Blood Urea Nitrogen 17 Creatinine 1.27 H Est Glomerular Filtrat Rate mL/min Glucose Level 191 Calcium Level 8.6 Phosphorus Level 3.1 Creatine Kinase 58 Medications Medications Current Medications Atorvastatin Calcium (Lipitor) 20 mg QHS PO Last administered on 11/07/18at 20:39; Admin Dose 20 MG; Start 11/04/18 at 21:00 Ergocalciferol (Drisdol) 50,000 unit Sa PO ; Start 11/09/18 at 09:00 Gabapentin (Neurontin) 300 mg BID PO Last administered on 11/07/18at 20:39; Admin Dose 300 MG; Start 11/04/18 at 09:00 Miscellaneous Medication (Bystolic) 20 mg DAILY PO Last administered on 11/07/18at 08:29; Admin Dose 20 MG; Start 11/04/18 at 09:00 Pantoprazole (Protonix Tab) 40 mg DAILY PO Last administered on 11/07/18at 08:28; Admin Dose 40 MG; Start 11/04/18 at 09:00 Clonidine (Catapres) 0.1 mg Q6H PRN PO SBP>160; Start 11/04/18 at 09:00 IV Flush (NS 3 ml) 3 ml PER PROTOCOL IV ; Start 11/04/18 at 09:00 Ondansetron HCl (Zofran Inj) 4 mg Q6H PRN IV NAUSEA/VOMITING; Start 11/04/18 at 09:00 Acetaminophen (Tylenol Tab) 650 mg Q6H PRN PO .PAIN 1-3 OR TEMP; Start 11/04/18 at 09:00 Acetaminophen/ Hydrocodone Bitart ([place] (5/325)) 1 tab Q6H PRN PO .MOD PAIN 4- 6 Last administered on 11/07/18at 14:07; Admin Dose 1 TAB; Start 11/04/18 at 09:00 Docusate Sodium (Colace) 100 mg Q12H PRN PO .CONSTIPATION; Start 11/04/18 at 09:00 Heparin Sodium (Porcine) (Heparin (5000 Units/1ml)) 5,000 unit Q12 SC Last administered on 11/07/18at 08:30; Admin Dose 5,000 UNIT; Start 11/04/18 at 09:00 Miscellaneous Information 1 ea NOTE XX ; Start 11/04/18 at 09:00 Glucose (Glutose) 15 gm Q15M PRN PO DECREASED GLUCOSE; Start 11/04/18 at 09:00 Glucose (Glutose) 22.5 gm Q15M PRN PO DECREASED GLUCOSE; Start 11/04/18 at 09:00 Dextrose (D50w Syringe) 25 ml Q15M PRN IV DECREASED GLUCOSE; Start 11/04/18 at 09:00 Dextrose (D50w Syringe) 50 ml Q15M PRN IV DECREASED GLUCOSE; Start 11/04/18 at 09:00 Glucagon (Glucagen) 1 mg Q15M PRN IM DECREASED GLUCOSE; Start 11/04/18 at 09:00 Glucose (Glutose) 15 gm Q15M PRN BUCCAL DECREASED GLUCOSE; Start 11/04/18 at 09:00 Miscellaneous Information Patients own medicat... BID@ XX ; Start 11/04/18 at 16:00 Povidone Iodine (Povidone-Iodine) 1 applic BID TOP Last administered on 11/07/18at 20:46; Admin Dose 1 APPLIC; Start 11/05/18 at 21:00 Hydralazine HCl (Apresoline) 100 mg TID PO Last administered on 11/07/18 20:39 ; Admin Dose 100 MG; Start 11/06/18 at 21:00 Diagnostic Test (Pha) (Accu-Chek) 1 ea 02 XX Last administered on 11/07/18 02:48; Admin Dose 1 EA; Start 11/07/18 at 02:00 Sodium Hypochlorite (Dakins Diluted ()) 1 applic BID TP Last administered on 11/07/18 20:46; Admin Dose 1 APPLIC; Start 11/07/18 at 09:00 Aspirin (Aspirin) 325 mg DAILY PO Last administered on 11/07/18 12:08; Admin Dose 325 MG; Start 11/07/18 at 11:00 Daptomycin 510 mg/ Sodium Chloride 100 ml @ 200 mls/hr Q24H IVPB Last administered on 11/07/18 16:40; Admin Dose 200 MLS/HR; Start 11/07/18 at 16:00 Ceftriaxone Sodium 50 ml @ 100 mls/hr Q24H IVPB Last administered on 11/07/18 14:50; Admin Dose 100 MLS/HR; Start 11/07/18 at 14:30 Insulin Glargine (Lantus) 30 units DAILY@0800 SC ; Start 11/08/18 at 08:00 Sodium Chloride 1,000 ml @ 75 mls/hr [id number] IV Last administered on 11/08/18 01:20; Admin Dose 75 MLS/HR; Start 11/08/18 at 00:00 Insulin Aspart (Novolog Insulin Pen) NOVOLOG *MILD* ALGORI... Q4 SC Last administered on 11/08/18 06:15; Admin Dose 2 UNIT; Start 11/08/18 at 05:00 Hydralazine HCl (Apresoline) 10 mg Q4H PRN IV sbp >160 Last administered on 11/08/18 08:59; Admin Dose 10 MG; Start 11/08/18 at 09:00 Morphine Sulfate (morphine) 2 mg Q4H PRN IV SEVERE PAIN LEVEL 7-10 Last administered on 11/08/18 09:00; Admin Dose 2 MG; Start 11/08/18 at 09:00 KLEVER HUNT Nov 08, 2018 11:37
[2018-11-08] MEDS ORDERED: PHENYLephrine 10 MG INJ ONE ×2 (12:41→13:36)
--- NOTE | 2018-11-08 13:29 | CONS ---
Assessment/Plan Assessment/Plan Hospital Course (Demo Recall) no events, pt was taken to OR Microbiology: Cultures negative Antimicrobials: Rocephin Daptomycin Assessment: 1. Left foot gangrene 2. Peripheral arterial disease 3. Diabetes and hypertension 4. History of left foot second toe amputation 5. Acute kidney insufficiency possibly secondary to contrast yesterday Plan: Continue abx, f/u vascular surgery and podiatry rec-s, pt will have b ypass surgery today Consultation Date/Type/Reason Admit Date/Time Nov 04, 2018 at 07:34 Initial Consult Date Type of Consult id Requesting Provider: KARLA LAIRD NP Date/Time of Note DATE: 11/08/18 TIME: 13:28 Exam/Review of Systems Exam Vitals Vital Signs Date Temp Pulse Resp B/P (MAP) Pulse Ox O2 O2 Flow FiO2 Time Delivery Rate 11/08/18 98.4 85 18 176/78 96 Room Air 08:19 (110) 11/06/18 2.0 13:25 Intake and Output 11/07/18 11/07/18 11/08/18 1515:00 23:00 07:00 IntakeIntake Total 950 ml 450 ml 275 ml BalanceBalance 950 ml 450 ml 275 ml Results Result Diagram: 11/08/18 0541 11/08/18 0541 Results 24hrs Laboratory Tests Test 11/07/18 14:40 11/07/18 17:25 11/07/18 20:42 11/08/18 01:19 Potassium Level 4.7 Bedside Glucose 76 207 189 Test 11/08/18 05:41 11/08/18 06:10 11/08/18 08:29 White Blood Count 6.1 Red Blood Count 3.76 L Hemoglobin 11.4 L Hematocrit 36.2 L Mean Corpuscular 96.3 Volume Mean Corpuscular 30.3 Hemoglobin Mean Corpuscular 31.5 L Hemoglobin Concent Red Cell 12.9 Distribution Width Platelet Count 222 Mean Platelet Volume 9.9 Immature 0.300 Granulocytes % Neutrophils % 59.5 Lymphocytes % 24.3 Monocytes % 11.3 H Eosinophils % 3.6 Basophils % 1.0 Nucleated Red Blood 0.0 Cells % Immature 0.020 Granulocytes # Neutrophils # 3.6 Lymphocytes # 1.5 Monocytes # 0.7 Eosinophils # 0.2 Basophils # 0.1 Nucleated Red Blood 0.0 Cells # Sodium Level 139 Potassium Level 4.5 Chloride Level 104 Carbon Dioxide Level 28 Anion Gap 7 Blood Urea Nitrogen 17 Creatinine 1.27 H Est Glomerular Filtrat Rate mL/min Glucose Level 191 Calcium Level 8.6 Phosphorus Level 3.1 Creatine Kinase 58 Bedside Glucose 198 170 Medications Medication Current Medications Atorvastatin Calcium (Lipitor) 20 mg QHS PO Last administered on 11/07/18at 20:39; Admin Dose 20 MG; Start 11/04/18 at 21:00 Ergocalciferol (Drisdol) 50,000 unit Sa PO ; Start 11/09/18 at 09:00 Gabapentin (Neurontin) 300 mg BID PO Last administered on 11/07/18 20:39; Admin Dose 300 MG; Start 11/04/18 at 09:00 Miscellaneous Medication (Bystolic) 20 mg DAILY PO Last administered on 11/07/18at 08:29; Admin Dose 20 MG; Start 11/04/18 at 09:00 Pantoprazole (Protonix Tab) 40 mg DAILY PO Last administered on 11/07/18at 08:28; Admin Dose 40 MG; Start 11/04/18 at 09:00 Clonidine (Catapres) 0.1 mg Q6H PRN PO SBP>160; Start 11/04/18 at 09:00 IV Flush (NS 3 ml) 3 ml PER PROTOCOL IV ; Start 11/04/18 at 09:00 Ondansetron HCl (Zofran Inj) 4 mg Q6H PRN IV NAUSEA/VOMITING; Start 11/04/18 at 09:00 Acetaminophen (Tylenol Tab) 650 mg Q6H PRN PO .PAIN 1-3 OR TEMP; Start 11/04/18 at 09:00 Acetaminophen/ Hydrocodone Bitart ([place] (5/325)) 1 tab Q6H PRN PO .MOD PAIN 4- 6 Last administered on 11/07/18at 14:07; Admin Dose 1 TAB; Start 11/04/18 at 09:00 Docusate Sodium (Colace) 100 mg Q12H PRN PO .CONSTIPATION; Start 11/04/18 at 09:00 Heparin Sodium (Porcine) (Heparin (5000 Units/1ml)) 5,000 unit Q12 SC Last ad ministered on 11/07/18at 08:30; Admin Dose 5,000 UNIT; Start 11/04/18 at 09:00 Miscellaneous Information 1 ea NOTE XX ; Start 11/04/18 at 09:00 Glucose (Glutose) 15 gm Q15M PRN PO DECREASED GLUCOSE; Start 11/04/18 at 09:00 Glucose (Glutose) 22.5 gm Q15M PRN PO DECREASED GLUCOSE; Start 11/04/18 at 0 9:00 Dextrose (D50w Syringe) 25 ml Q15M PRN IV DECREASED GLUCOSE; Start 11/04/18 at 09:00 Dextrose (D50w Syringe) 50 ml Q15M PRN IV DECREASED GLUCOSE; Start 11/04/18 at 09:00 Glucagon (Glucagen) 1 mg Q15M PRN IM DECREASED GLUCOSE; Start 11/04/18 at 09:00 Glucose (Glutose) 15 gm Q15M PRN BUCCAL DECREASED GLUCOSE; Start 11/04/18 at 09:00 Miscellaneous Information Patients own medicat... BID@10,16 XX ; Start 11/04/18 at 16:00 Povidone Iodine (Povidone-Iodine) 1 applic BID TOP Last administered on 11/07/18at 20:46; Admin Dose 1 APPLIC; Start 11/05/18 at 21:00 Hydralazine HCl (Apresoline) 100 mg TID PO Last administered on 11/07/18at 20:39; Admin Dose 100 MG; Start 11/06/18 at 21:00 Diagnostic Test (Pha) (Accu-Chek) 1 ea 02 XX Last administered on 11/07/18at 02:48; Admin Dose 1 EA; Start 11/07/18 at 02:00 Sodium Hypochlorite (Dakins Diluted ()) 1 applic BID TP Last administered on 11/07/18at 20:46; Admin Dose 1 APPLIC; Start 11/07/18 at 09:00 Aspirin (Aspirin) 325 mg DAILY PO Last administered on 11/07/18at 12:08; Admin Dose 325 MG; Start 11/07/18 at 11:00 Daptomycin 510 mg/ Sodium Chloride 100 ml @ 200 mls/hr Q24H IVPB Last administered on 11/07/18at 16:40; Admin Dose 200 MLS/HR; Start 11/07/18 at 16:00 Ceftriaxone Sodium 50 ml @ 100 mls/hr Q24H IVPB Last administered on 11/07/18at 14:50; Admin Dose 100 MLS/HR; Start 11/07/18 at 14:30 Insulin Glargine (Lantus) 30 units DAILY@0800 SC ; Start 11/08/18 at 08:00 Sodium Chloride 1,000 ml @ 75 mls/hr [id number] IV Last administered on 11/08/18at 01:20; Admin Dose 75 MLS/HR; Start 11/08/18 at 00:00 Insulin Aspart (Novolog Insulin Pen) NOVOLOG *MILD* ALGORI... Q4 SC Last administered on 11/08/18at 06:15; Admin Dose 2 UNIT; Start 11/08/18 at 05:00 Hydralazine HCl (Apresoline) 10 mg Q4H PRN IV sbp >160 Last administered on at 08:59; Admin Dose 10 MG; Start 11/08/18 at 09:00 Morphine Sulfate (morphine) 2 mg Q4H PRN IV SEVERE PAIN LEVEL 7-10 Last administered on 11/08/18at 09:00; Admin Dose 2 MG; Start 11/08/18 at 09:00 HERRERA MURILLO NP Nov 08, 2018 13:29
[2018-11-08] MEDS ORDERED: THROMBIN 5000 UNIT (RECOTHROM) VIAL TOP ONE (13:40)
[2018-11-08] MEDS ORDERED: DAPTOMYCIN 500 MG in SOD CHLORIDE 0.9% 100 ML IVPB SCH (14:00)
--- NOTE | 2018-11-08 14:19 | SIPON ---
Date/Time of Note Date/Time of Note DATE: 11/08/18 TIME: 14:16 Operative Report Preoperative Diagnosis L foot gangrene Postoperative Diagnosis same Operation/Procedure Performed L femoral endarterectomy, L ilio-femoral bypass with 7 mm Propatent Goretex, fem-PT bypass with in-situ GSV Surgeon see signature line mailroom assistant Dr. Jairo Fernández MD Anesthesia: general Estimated blood loss: 150 - 200 ml's Transfusion Required none Specimen L common femoral artery plaque Grafts/Implants none Complications none KLEVER FOREMAN MD Nov 08, 2018 14:19
[2018-11-08] MEDS ORDERED: ONDANSETRON 4 MG INJ IV PRN ×3 (14:30→19:00)
[2018-11-08] MEDS ORDERED: DIPHENHYDRAMINE 50 MG INJ IV PRN ×3 (14:30→19:00)
[2018-11-08] MEDS ORDERED: FENTAnyl 50 MCG/ML VIAL IV PRN ×8 (14:30→19:00)
[2018-11-08] MEDS ORDERED: niCARdipine 50 MG in SOD CHLORIDE 0.9% 480 ML IV SCH (14:30)
[2018-11-08] MEDS ORDERED: MEPERIDINE 25 MG INJ IV PRN ×3 (14:30→19:00)
[2018-11-08] MEDS ORDERED: HYDROmorphONE 0.5 MG/0.5 ML SYG IV PRN ×6 (14:30→19:00)
[2018-11-08] MEDS ORDERED: ALBUMIN HUMAN 5% 250 ML ONE (15:03)
[2018-11-08] MEDS ORDERED: NORepinephrine 8MG/250 ML (PMX 250 ML IV SCH (15:30)
[2018-11-08] MEDS ORDERED: ALBUMIN HUMAN 5% 250 ML IV ONE ×2 (15:30)
[2018-11-08] MEDS ORDERED: EPHEDrine 25 MG/5 ML SYG IV PRN (16:00)
[2018-11-08] MEDS ORDERED: HEPARIN 1000 UNITS/ML 10 ML INJ IV SCH (16:00)
[2018-11-08] MEDS ORDERED: HYDROmorphONE 1 MG/5 ML IV SYRINGE IV PRN ×2 (16:00)
[2018-11-08] MEDS: DAPTOMYCIN 500 MG in SOD CHLORIDE 0.9% 100 ML IVPB SCH (16:00)
--- NOTE | 2018-11-08 16:28 | PN ---
Date/Time of Note Date/Time of Note DATE: 11/08/18 TIME: 16:26 Objective Vitals Vital Signs Date Temp Pulse Resp B/P (MAP) Pulse Ox O2 O2 Flow FiO2 Time Delivery Rate 11/08/18 Nasal 3.0 16:11 Cannula 11/08/18 94 15 93/44 (60) 97 15:38 11/08/18 97.0 15:03 Intake and Output 11/07/18 11/07/18 11/08/18 1515:00 23:00 07:00 IntakeIntake Total 950 ml 450 ml 275 ml BalanceBalance 950 ml 450 ml 275 ml Results Result Diagram: 11/08/18 0541 11/08/18 0541 Medications Medications Current Medications Atorvastatin Calcium (Lipitor) 20 mg QHS PO Last administered on 11/07/18at 20:39; Admin Dose 20 MG; Start 11/04/18 at 21:00 Ergocalciferol (Drisdol) 50,000 unit Sa PO ; Start 11/09/18 at 09:00 Gabapentin (Neurontin) 300 mg BID PO Last administered on 11/07/18at 20:39; Admin Dose 300 MG; Start 11/04/18 at 09:00 Miscellaneous Medication (Bystolic) 20 mg DAILY PO Last administered on 11/07/18at 08:29; Admin Dose 20 MG; Start 11/04/18 at 09:00 Pantoprazole (Protonix Tab) 40 mg DAILY PO Last administered on 11/07/18at 08:28; Admin Dose 40 MG; Start 11/04/18 at 09:00 Clonidine (Catapres) 0.1 mg Q6H PRN PO SBP>160; Start 11/04/18 at 09:00 IV Flush (NS 3 ml) 3 ml PER PROTOCOL IV ; Start 11/04/18 at 09:00 Ondansetron HCl (Zofran Inj) 4 mg Q6H PRN IV NAUSEA/VOMITING; Start 11/04/18 at 09:00 Acetaminophen (Tylenol Tab) 650 mg Q6H PRN PO .PAIN 1-3 OR TEMP; Start 11/04/18 at 09:00 Acetaminophen/ Hydrocodone Bitart ([place] (5/325)) 1 tab Q6H PRN PO .MOD PAIN 4- 6 Last administered on 11/07/18at 14:07; Admin Dose 1 TAB; Start 11/04/18 at 09:00 Docusate Sodium (Colace) 100 mg Q12H PRN PO .CONSTIPATION; Start 11/04/18 at 09:00 Heparin Sodium (Porcine) (Heparin (5000 Units/1ml)) 5,000 unit Q12 SC Last administered on 11/07/18at 08:30; Admin Dose 5,000 UNIT; Start 11/04/18 at 09:00; Status Hold Miscellaneous Information 1 ea NOTE XX ; Start 11/04/18 at 09:00 Glucose (Glutose) 15 gm Q15M PRN PO DECREASED GLUCOSE; Start 11/04/18 at 09:00 Glucose (Glutose) 22.5 gm Q15M PRN PO DECREASED GLUCOSE; Start 11/04/18 at 09:00 Dextrose (D50w Syringe) 25 ml Q15M PRN IV DECREASED GLUCOSE; Start 11/04/18 at 09:00 Dextrose (D50w Syringe) 50 ml Q15M PRN IV DECREASED GLUCOSE; Start 11/04/18 at 09:00 Glucagon (Glucagen) 1 mg Q15M PRN IM DECREASED GLUCOSE; Start 11/04/18 at 09:00 Glucose (Glutose) 15 gm Q15M PRN BUCCAL DECREASED GLUCOSE; Start 11/04/18 at 09:00 Miscellaneous Information Patients own medicat... BID@ XX ; Start 11/04/18 at 16:00 Povidone Iodine (Povidone-Iodine) 1 applic BID TOP Last administered on 11/07/18at 20:46; Admin Dose 1 APPLIC; Start 11/05/18 at 21:00 Hydralazine HCl (Apresoline) 100 mg TID PO Last administered on 11/07/18at 20:39; Admin Dose 100 MG; Start 11/06/18 at 21:00 Diagnostic Test (Pha) (Accu-Chek) 1 ea 02 XX Last administered on 11/07/18at 02:48; Admin Dose 1 EA; Start 11/07/18 at 02:00 Sodium Hypochlorite (Dakins Diluted ()) 1 applic BID TP Last administered on 11/07/18at 20:46; Admin Dose 1 APPLIC; Start 11/07/18 at 09:00 Aspirin (Aspirin) 325 mg DAILY PO Last administered on 11/07/18at 12:08; Admin Dose 325 MG; Start 11/07/18 at 11:00 Ceftriaxone Sodium 50 ml @ 100 mls/hr Q24H IVPB Last administered on 11/07/18at 14:50; Admin Dose 100 MLS/HR; Start 11/07/18 at 14:30 Insulin Glargine (Lantus) 30 units DAILY@0800 SC ; Start 11/08/18 at 08:00 Sodium Chloride 1,000 ml @ 75 mls/hr [id number] IV Last administered on 11/08/18at 01:20; Admin Dose 75 MLS/HR; Start 11/08/18 at 00:00 Insulin Aspart (Novolog Insulin Pen) NOVOLOG *MILD* ALGORI... Q4 SC Last administered on 11/08/18at 06:15; Admin Dose 2 UNIT; Start 11/08/18 at 05:00 Hydralazine HCl (Apresoline) 10 mg Q4H PRN IV sbp >160 Last administered on 11/08/18at 08:59; Admin Dose 10 MG; Start 11/08/18 at 09:00 Morphine Sulfate (morphine) 2 mg Q4H PRN IV SEVERE PAIN LEVEL 7-10 Last administered on 11/08/18at 09:00; Admin Dose 2 MG; Start 11/08/18 at 09:00 Daptomycin 500 mg/ Sodium Chloride 100 ml @ 200 mls/hr Q24H IVPB ; Start 11/08/18 at 16:00 Nicardipine HCl 50 mg/Sodium Chloride 500 ml @ 50 mls/hr TITRATE IV ; Start 11/08/18 at 14:30 Albumin Human 250 ml @ 250 mls/hr ONCE ONCE IV Last administered on 11/08/18at 15:22; Admin Dose 250 MLS/HR; Start 11/08/18 at 15:30; Stop 11/08/18 at 16:29 Norepinephrine 250 ml @ 1.875 mls/ hr TITRATE IV Last administered on at 15:36; Admin Dose 7.5 MLS/HR; Start 11/08/18 at 15:30 Albumin Human 250 ml @ 250 mls/hr ONCE ONCE IV ; Start 11/08/18 at 15:30; Stop 11/08/18 at 16:29 Lactated Ringer's 1,000 ml @ 125 mls/hr Q8H IV ; Start 11/08/18 at 15:30 Hydromorphone HCl (Dilaudid) 0.2 mg PACU PRN IV MILD PAIN 1-3; Start 11/08/18 at 16:00; Stop 11/08/18 at 21:00 Hydromorphone HCl (Dilaudid) 0.4 mg PACU PRN IV MOD PAIN 4-6; Start 11/08/18 at 16:00; Stop 11/08/18 at 21:00 Fentanyl (Sublimaze) 25 mcg PACU ORDER PRN IV MILD PAIN 1-3; Start 11/08/18 at 16:00; Stop 11/08/18 at 21:00 Fentanyl (Sublimaze) 50 mcg PACU ORDER PRN IV MOD PAIN 4-6; Start 11/08/18 at 16:00; Stop 11/08/18 at 21:00 Ondansetron HCl (Zofran Inj) 4 mg PACU ORDER PRN IV NAUSEA/VOMITING; Start 11/08/18 at 16:00; Stop 11/08/18 at 21:00 Ephedrine Sulfate 5 mg PACU ORDER PRN IV BLOOD PRESSURE SUPPORT; Start 11/08/18 at 16:00; Stop 11/08/18 at 21:00 Meperidine HCl (Demerol) 25 mg PACU ORDER PRN IV .RIGORS; Start 11/08/18 at 16:00; Stop 11/08/18 at 21:00 Diphenhydramine HCl (Benadryl) 25 mg PACU ORDER PRN IV .PRURITUS; Start 11/08/18 at 16:00; Stop 11/08/18 at 21:00 Heparin Sodium (Porcine) 250 ml @ 5 mls/hr Q24H IV ; Start 11/08/18 at 17:00; Stop 11/09/18 at 06:00 VTE Prophylaxis Risk score (from Nsg)>0 risk: 3 SCD applied (from Nsg): Yes Lines/Catheters IV Catheter Type: Vora in Place: No Assessment/Plan Hospital Course Patient in surgery today, will attempt to see later on today if possible ASSESSMENT AND PLAN:72 yo M w/htn, dm2, right 2nd toe amputation, neuropathy,dlp, PAD, left 5th toe ulcer here w/worsening left 5th toe gangrenosus ulcer.. left fifth toe gangrenous ulcer -Femoral to tibial artery bypass today, Possible amputation of left fifth toe once vascular work-up is completed.. -Continue IV antimicrobials and follow-up cultures. -Wound care -Glycemic management -Follow-up vascular/podiatry recommendations Severe peripheral vascular disease -Status post aortogram and plan for Fem-tibial bypass today -Vascular surgery recommendations appreciated Poorly controlled DMII -improving -Basal/bolus insulin-titrate per need Acute kidney injury -Renal function worsened today likely secondary to contrast-induced nephropathy. -Follow-up nephrology recommendations and monitor renal function closely. Hyperkalemia -Continue holding SHANAE inhibitors. -We will repeat a dose of Kayexalate today. Essential HTN -Continue bb/hydralazine -PRN clonidine Peripheral neuropathy -cont. gabapentin Dyslipidemia -cont. statin Chronic anemia -Stable H&H. Monitor DVT prophylaxis: Heparin PUD prophylaxis: PPI Disposition: -Surgery today FRANTZ SCHWAB Nov 08, 2018 16:28
[2018-11-08] MEDS: LACTATED RINGER'S 1,000 ML IV SCH ×2 (16:32→22:57)
[2018-11-08] MEDS ORDERED: HEPARIN 25000 UNITS/250 ML 250 ML IV SCH (17:00)
--- NOTE | 2018-11-08 20:30 | OPR ---
DATE OF OPERATION: 11/08/2018 PREOPERATIVE DIAGNOSIS: Left fifth toe gangrene. POSTOPERATIVE DIAGNOSIS: Left fifth toe gangrene. PROCEDURE PERFORMED: 1. Left femoral endarterectomy. 2. Left iliofemoral bypass. 3. Left femoral to posterior tibial bypass using in situ greater saphenous vein. SURGEON: Klever Lott M.D. COMPLAINT EVALUATION OFFICER: Jairo Fernández M.D. ANESTHESIA: General endotracheal anesthesia. ESTIMATED BLOOD LOSS: 200 mL. COMPLICATIONS: There were no intraprocedural complications. INDICATIONS: This is a 72-year-old diabetic hypertensive gentleman with gangrene of the left fifth t oe. He had an angiogram that showed popliteal occlusion. He has some severe disease in the common f emoral and had a good posterior tibial and TP trunk in the calf going all the way down into the foot. Brought him in today for a left fem-PT bypass and femoral endarterectomy. I had to replace the com mon femoral artery due to that just kind of disintegrating after the endarterectomy, so I did an ilio femoral bypass and then a fem to PT bypass with in situ great saphenous vein. PROCEDURE: The patient was brought to the operating room, placed on the table in supine position. L eft leg was prepped and draped in the usual sterile fashion. I had already marked the great saphenou s vein on the skin and marked all the side branches. I then made an incision in the upper medial ayesha f over the great saphenous vein that extended down to the midcalf. I carefully dissected out the hunt k in the great saphenous vein down to the midcalf. I ligated all the side branches with 2-0 or 3-0 s ilk ties and divided them. Once I had it skeletonized from the knee to the midcalf, I then entered t he popliteal space and I transected the fascia over the medial calf muscles. I then took the calf mu scles down off of the back of the tibia to expose the TP trunk and the posterior tibial artery. The TP trunk was patent on angiogram and was very, very calcified, so I decided to just go to the proxima l posterior tibial. It was soft and clamped. I dissected the posterior tibial vein away from the ar fransisco nerves and there get about a 3 cm segment of the artery. It was nice and soft and good caliber. I then went to the groin to expose the common femoral and proximal great saphenous vein. I made an incision over the common femoral artery. There was no common femoral pulse and I made an incision o sierra the artery and just above the groin crease and extended down on to the medial aspect of the thigh over the great saphenous vein course. I dissected down through subcutaneous tissue using electrocau fransisco and carefully dissected out the great saphenous vein. There were multiple side branches and lig ated them with either 2-0 or 3-0 silk ties and divided them until I get right down to the saphenofemo ral junction. I then skeletonized the saphenofemoral junction. I put a Satinsky clamp across the ba se of the saphenofemoral junction and then transected the great saphenous vein from the femoral vein, and oversewed the hole in the femoral vein using 5-0 Prolene suture in a running standard vascular s urgical fashion. I removed the clamp and there was good hemostasis. I then proceeded to dissect out the common femoral artery. I dissected down through the subcutaneous tissue with more laterally and identified the common femoral artery. I then dissected out the superficial and profunda femoral art eries as well and controlled those. I then extended my incision up in dissection more proximally. I got a Taiwo's arm and I put a retractor under the inguinal ligament and I carefully dissected out t he distal external iliac vein. It was actually soft. The common femoral was severely calcified and then thinned down I can see. Now I had the soft area and the external iliac to clamp. I gave the kinsey levine's first 7000 units of heparin intravenously. I then clamped the external iliac artery up under the inguinal ligament. I clamped the superficial and profunda femoral arteries. I then made an ant erior arteriotomy and the common femoral artery was severely diseased. The angiogram did not show ho w bad that it was. It was an essentially dissection with a lot of very heavily calcified plaque, and there was no pulse and really very little lumen. Despite the angiographic findings, the lumen was f lattened out, so the severity of the narrowing was not appreciated on anterior view. I endarterectom ized the common femoral artery. I removed then I got her right up to the external iliac artery where it was soft. I removed all that plaque. As I was endarterectomized the lateral aspect of the arter y just tissue paper thin, I removed the clamp down to see what how that would respond and the artery was just did not have enough integrity to be a conduit and it just looks like tissue paper and was bl ood coming through the wall. It was not gushing blood, but it was just sort of slowly disintegrating , so I decided to replace the common femoral artery with a piece of Trent-Fransisco. I then reclamped the e xternal iliac artery distally. I then cut away all the thinned out and unhealthy common femoral berta ry. It was a segment about 3 cm long. I then used a 7 mm Propaten Trent-Fransisco graft to replace the seg ments. I did an end-to-end on the bypass from the external iliac distally to the common femoral berta ry just down at the bifurcation with 5-0 Prolene suture, and I did an end-to-end on the proximal end of the bypass with 0 Prolene sutures. I finished the anastomosis and removed the clamps. There was good hemostasis and removed the clamps down on to the graft. I then cut to appropriate length and th en finished the anastomosis to the common femoral artery down at the bifurcation. I already extended the incision down on to the superficial femoral a little bit and so I basically had an arteriotomy a nd my incision are in the distal artery site. I just completed the distal end of the bypass to the c ommon femoral artery, and then sewed the edges together and completing the anastomosis. I now had re placed that segment of common femoral artery with 7 mm Trent-Fransisco. I then proceeded to do the fem tibi al bypass. I then took the great saphenous vein. I opened and spatulated it to fit the arteriotomy which I already made in the common extending down onto the superficial femoral. I cut the first 2 se ts of valves under direct vision. I then anastomosed the great saphenous vein to the common femoral arteriotomy using 5-0 Prolene suture in a running standard vascular surgical fashion. I removed the clamps, the valves were intact. There was a pretty good hemostasis. I put some thrombin Gelfoam joe und this to get better hemostasis and then went down to the distal end of the bypass graft were I exp osed the great saphenous vein down to the midcalf. I then ligated it distally using surgical clips. I then passed the LeMaitre valvulotome from below, I passed it twice a good outflow. I could see wa s severe spasm in the vein. I then made multiple incisions in the thigh and calf and ligated all the side branches that I marked with ultrasound previously. Once I did this, there is diffuse spasm. T here really was not much flow out the end of the graft. I passed a 3-Liberian Cornelio from below and a ctually got good forward bleeding and has excellent pulsatile flow. I just used the deformity to ove rcome the spasm in the vein. At this point, it was pretty happy with the vein itself, so I then deci ded to do the distal anastomosis. I clamped the posterior tibial artery proximally and distally, I m benja about a cm long anterior arteriotomy, especially the distal end of the vein to fit the arteriotom y and anastomosed the distal end of vein to the side of the artery using 6-0 Prolene suture in a runn ing standard vascular surgical fashion. I then just prior to completing it, I flushed and passed the 2-mm dilator down the posterior tibial and passed it quite easily. There was excellent backflow fro m the posterior tibial artery. There is very little inflow and excellent backflow. I then completed the anastomosis, after removing all the clamps and flushing. I then listened with the Doppler and t here have confirmed with the Doppler by going down the vein to confirm there were no any side branche s and there were not any and there were no AV fistula noted. There was good pulse at the anastomosis . There was good Doppler signal in the posterior tibial, but that went away once I clamped the graft . I was pretty happy with the results. At this point, there was good hemostasis everywhere. We the n closed the skin incisions in 2 layers using an inner layer of 3-0 Vicryl. I used surgical gurpreet for the calf and thigh incisions and then 4-0 Monocryl suture was used for the skin in the groin. St erile dressings were applied and Anselmo wraps were applied. The patient was then transferred to the rec overy room in stable condition. He tolerated the procedure well without any complications. Again, duglas maki is cleared to have his toe amputation next week with Dr. Cota and Dr. Chan. Dictated By: KLEVER PIERRE/BOBO Conf#: [id number] [facility]#: [id number] CC: JAIRO Ellis; DEEPAK CHAN DPM; KARLA LAIRD NP; TOMASA SCOTT; FRANTZ SCHWAB MD; IVELISSE WELLINGTON DPM;*[facility]*
[2018-11-08] MEDS: ATORVASTATIN 20 MG TAB PO SCH (20:52)
[2018-11-08] MEDS: CEFTRIAXONE 1 GM/50 ML (PMX) 50 ML IVPB SCH (20:52)
--- NOTE | 2018-11-08 21:32 | QN ---
Documentation Comment I was called out of the emergency department to room 109 for a CODE BLUE event. I immediately took over as the CODE BLUE leader and ran the code. Please see the code sheet for full details. The patient started breathing on his own as he supposedly choked on food and then stopped breathing and went apneic. That is in the CODE BLUE was called. By the time I arrived the patient had been breathing on his own and was able to answer my questions. The final results of the CODE BLUE was return of spontaneous circulation. HPI: The patient choked on food and became apneic. ANA AKERS was called. When I arrived the patient had already coughed up the food and was not breathing on his own. Physical exam: Bilateral breath sounds are equal, heart rate is tachycardic without murmur, mildly diaphoretic TANESHA PASTOR MD Nov 08, 2018 21:32
[2018-11-09] VITALS (20 sets, daily range): BP systolic 111–133; BP diastolic 54–70; PULSE 90–105; RESP 11–20
--- NOTE | 2018-11-09 00:22 | PAC ---
Date/Time of Note Date/Time of Note DATE: 11/09/18 TIME: 00:22 Post-Anesthesia Notes Post-Anesthesia Note Last documented vital signs Vital Signs Date Temp Pulse Resp B/P (MAP) Pulse Ox O2 O2 Flow FiO2 Time Delivery Rate 11/08/18 92 6.0 45 23:06 11/08/18 98.8 104 16 99/52 (68) 96 Nasal 23:00 Cannula 11/08/18 98.9 19:00 Activity: WNL Respiratory function: WNL Cardiovascular function: WNL Mental status: Baseline Pain reasonably controlled: Yes Hydration appropriate: Yes Nausea/Vomiting absent: No JACKELIN BATRES MD Nov 09, 2018 00:22
--- NOTE | 2018-11-09 00:25 | OPPN ---
Date/Time of Note Date/Time of Note DATE: 11/09/18 TIME: 00:23 Anesthesia Follow up Anesthesia Follow up Last documented vital signs Vital Signs Date Temp Pulse Resp B/P (MAP) Pulse Ox O2 O2 Flow FiO2 Time Delivery Rate 11/08/18 92 6.0 45 23:06 11/08/18 104 16 99/52 (68) Nasal 23:00 Cannula 11/08/18 98.9 19:00 Respiratory function: WNL Cardiovascular function: WNL Comments A 72 year male s/p GA spinal duramorph for post op pain POD#1 is doing fine. No headache, itching, n/v, pain, neural deficit. care per surgery JACKELIN BATRES MD Nov 09, 2018 00:25
[2018-11-09] MEDS: ACCUCHECK AT 2AM (Patients on SS coverage) XX SCH (02:00)
[2018-11-09] MEDS: DAKINS 0.0125%(1/40) 473 ML SOLUTION TP SCH ×3 (05:05→23:16)
[2018-11-09] MEDS: LACTATED RINGER'S 1,000 ML IV SCH ×2 (06:38→15:39)
--- NOTE | 2018-11-09 07:55 | CONS ---
Consult Date/Type/Reason Admit Date/Time Nov 04, 2018 at 07:34 Initial Consult Date Requesting Provider: KARLA LAIRD NP Date/Time of Note DATE: 11/09/18 TIME: 07:52 Subjective choked during dinner last night. sp fempop bypass. continues good uo poc reviewed with dr. harris. labs pending this am OBJECTIVE: HEENT: Head is normocephalic. NECK: Supple. HEART: Regular rate. LUNGS: Diminished breath sounds at the base. ABDOMEN: Soft, nontender to palpation without rebound or guarding. EXTREMITIES: Negative for clubbing, cyanosis, no edema. DERMATOLOGIC: No rashes. MUSCULOSKELETAL: No joint effusion. NEUROLOGIC: No change in exam. Objective Vitals Vital Signs Date Temp Pulse Resp B/P (MAP) Pulse Ox O2 O2 Flow FiO2 Time Delivery Rate 11/09/18 90 11 119/61 97 Nasal 3.0 06:00 (80) Cannula 11/09/18 41 05:48 11/09/18 98.7 04:00 Intake and Output 11/08/18 11/08/18 11/09/18 1515:00 23:00 07:00 IntakeIntake Total 2500 ml 1600 ml 1010 ml OutputOutput Total 600 ml 150 ml 120 ml BalanceBalance 1900 ml 1450 ml 890 ml Results/Medications Result Diagram: 11/08/18 0541 11/08/18 0541 Results 24 hrs Laboratory Tests Test 11/08/18 08:29 11/08/18 14:55 11/08/18 17:36 11/08/18 21:24 Bedside Glucose 170 204 170 Blood Gas Blood arterial Specimen Source Arterial Blood 11/08/2018 9:30:1 Date Drawn 3 PM Arterial Blood pH 7.246 *L (Temp corrected) Arterial Blood 51.8 H pCO2 (Temp correct) Arterial Blood 76.5 L pO2 (Temp corrected) Arterial Blood 22.0 HCO3 Arterial Blood -5.3 L Base Excess Arterial Blood 92.5 L Oxygen Saturation Jeison Test ACCEPTAB Arterial Blood Right Radial Gas Puncture Site Arterial 0.2 Blood Carboxyhemo globin Arterial Blood 0.3 Methemoglobin Blood Gas A-a O2 120.1 H Differential Oxyhemoglobin 92.0 L Percent Blood Gas 37.0 Temperature Blood Gas NASAL CANNULA Modality FiO2 36.0 Blood Gas Joce MAZA RN Critical Value Read Back Blood Gas UP Notified Whom Blood Gas 11/08/2018 9:42:4 Notified Time 8 PM Test 11/08/18 21:39 11/09/18 01:29 Bedside Glucose 264 H 216 Home Meds Active Scripts Silver Sulfadiazine* (Silvadene*) 1% - 20 Gm Cream.gm., 1 APPLIC TOP DAILY, #1 TUB Prov:JESSIE WONG MD 06/12/18 Amoxicillin-Clavulanate K* (Augmentin*) 875 Mg Tab, 875 MG PO BID, #28 TAB Prov:AMANDA GOMEZ MD 06/08/14 Reported Medications Insulin Aspart (Novolog Mix (70/30)) 100 Units/Ml Soln, 28 SC with diinner, VIAL 11/04/18 Insulin Aspart (Novolog Mix (70/30)) 100 Units/Ml Soln, 38 SC WITH BREAKFAST, VIAL 11/04/18 Benazepril Hcl* (Benazepril Hcl*) 40 Mg Tablet, 40 MG PO DAILY, #30 TAB 11/04/18 Ergocalciferol (Vitamin D2) (VITAMIN D2) 50,000 Unit Capsule, 37010 UNIT PO weekly for saturdays, CAP 11/04/18 Omeprazole* (Omeprazole*) 20 Mg Capsule.dr, 20 MG PO DAILY, #30 CAP 11/04/18 Aspirin* (Aspirin* EC) 81 Mg Tablet.dr, 81 MG PO DAILY, TAB 11/04/18 Gabapentin* (Gabapentin*) 300 Mg Capsule, 300 MG PO BID, #60 CAP 11/04/18 Nebivolol Hcl* (Bystolic*) 20 Mg Tablet, 20 MG PO DAILY, #30 TAB 11/04/18 Atorvastatin Calcium* (Atorvastatin Calcium*) 20 Mg Tablet, 20 MG PO QHS, #30 TAB 11/04/18 Sulfasalazine (Azulfidine) 500 Mg Tab, 1000 MG PO TID, TAB 06/02/14 Discontinued Reported Medications Simvastatin (Simvastatin) 40 Mg Tablet, 40 MG PO DAILY, TAB 06/02/14 Famotidine* (Pepcid*) Unknown Strength Tablet, PO DAILY, TAB 06/02/14 Hum Insulin Nph/Reg Insulin Hm (Humulin 70-30 Vial) 100 Units/Ml Vial, SQ SLIDING SCALE, VIAL 10/16/14 Benazepril Hcl* (Benazepril Hcl*) 20 Mg Tablet, 20 MG PO DAILY, TAB 03/05/14 Discontinued Scripts Hydrocodone Bit-Acetaminophen* (Darwin*) 5-325 Mg Tab, 1 TAB PO Q4H PRN for PAIN, #14 TAB Prov:ALESIA BREWER PA-C 12/17/14 Clindamycin Hcl* (Clindamycin Hcl*) 300 Mg Capsule, 300 MG PO Q8 for infection for 7 Days, CAP Prov:ALESIA BREWERC 12/17/14 Acetaminophen* (Tylophen*) 500 Mg Capsule, 1 CAP PO Q6H PRN for PAIN AND OR ELEVATED TEMP, #20 CAP Prov:DESHAWN ATKINS 12/09/14 Sulfamethoxazole-Trimethoprim* (Bactrim* DS) 800-160 Mg Tab, 1 TAB PO BID for 5 Days, TAB Prov:KAROL FISHMAN PA-C 11/29/14 Sulfamethoxazole-Trimethoprim* (Bactrim* DS) 800-160 Mg Tab, 1 TAB PO BID for 10 Days, TAB Prov:EVERETT SCHWAB PA-C 11/13/14 Cephalexin* (Keflex*) 500 Mg Capsule, 500 MG PO QID for 7 Days, CAP Prov:EVERETT SCHWAB PA-C 11/13/14 Docusate Sodium* (Colace*) 100 Mg Cap, 100 MG PO BID, #60 Prov:AMANDA GOMEZ MD 06/08/14 Prednisone (Prednisone) 10 Mg Tab, 30 MG PO DAILY, #30 TAB Prov:AMANDA GOMEZ MD 06/08/14 Insulin Glargine* (Lantus*) 100 Unit/Ml Soln, 35 UNIT SC HS, #2 Prov:AMANDA GOMEZ MD 06/08/14 Medications Current Medications Atorvastatin Calcium (Lipitor) 20 mg QHS PO Last administered on 11/08/18at 20:52; Admin Dose 20 MG; Start 11/04/18 at 21:00 Ergocalciferol (Drisdol) 50,000 unit Sa PO ; Start 11/09/18 at 09:00 Gabapentin (Neurontin) 300 mg BID PO Last administered on 11/08/18at 22:59; Admin Dose 300 MG; Start 11/04/18 at 09:00 Miscellaneous Medication (Bystolic) 20 mg DAILY PO Last administered on 11/07/18at 08:29; Admin Dose 20 MG; Start 11/04/18 at 09:00 Pantoprazole (Protonix Tab) 40 mg DAILY PO Last administered on 11/07/18at 08:28; Admin Dose 40 MG; Start 11/04/18 at 09:00 Clonidine (Catapres) 0.1 mg Q6H PRN PO SBP>160; Start 11/04/18 at 09:00 IV Flush (NS 3 ml) 3 ml PER PROTOCOL IV ; Start 11/04/18 at 09:00 Ondansetron HCl (Zofran Inj) 4 mg Q6H PRN IV NAUSEA/VOMITING; Start 11/04/18 at 09:00 Acetaminophen (Tylenol Tab) 650 mg Q6H PRN PO .PAIN 1-3 OR TEMP; Start 11/04/18 at 09:00 Acetaminophen/ Hydrocodone Bitart (Darwin (5/325)) 1 tab Q6H PRN PO .MOD PAIN 4- 6 Last administered on 11/07/18at 14:07; Admin Dose 1 TAB; Start 11/04/18 at 09:00 Docusate Sodium (Colace) 100 mg Q12H PRN PO .CONSTIPATION; Start 11/04/18 at 09:00 Heparin Sodium (Porcine) (Heparin (5000 Units/1ml)) 5,000 unit Q12 SC Last administered on 11/07/18at 08:30; Admin Dose 5,000 UNIT; Start 11/04/18 at 09:00 Miscellaneous Information 1 ea NOTE XX ; Start 11/04/18 at 09:00 Glucose (Glutose) 15 gm Q15M PRN PO DECREASED GLUCOSE; Start 11/04/18 at 09:00 Glucose (Glutose) 22.5 gm Q15M PRN PO DECREASED GLUCOSE; Start 11/04/18 at 09:00 Dextrose (D50w Syringe) 25 ml Q15M PRN IV DECREASED GLUCOSE; Start 11/04/18 at 09:00 Dextrose (D50w Syringe) 50 ml Q15M PRN IV DECREASED GLUCOSE; Start 11/04/18 at 09:00 Glucagon (Glucagen) 1 mg Q15M PRN IM DECREASED GLUCOSE; Start 11/04/18 at 09:00 Glucose (Glutose) 15 gm Q15M PRN BUCCAL DECREASED GLUCOSE; Start 11/04/18 at 09:00 Miscellaneous Information Patients own medicat... BID@10,16 XX ; Start 11/04/18 at 16:00 Povidone Iodine (Povidone-Iodine) 1 applic BID TOP Last administered on 11/08/18at 20:55; Admin Dose 1 APPLIC; Start 11/05/18 at 21:00 Hydralazine HCl (Apresoline) 100 mg TID PO Last administered on 11/08/18at 20:52; Admin Dose 100 MG; Start 11/06/18 at 21:00 Diagnostic Test (Pha) (Accu-Chek) 1 ea 02 XX Last administered on 11/07/18at 02:48; Admin Dose 1 EA; Start 11/07/18 at 02:00 Sodium Hypochlorite (Dakins Diluted (40)) 1 applic BID TP Last administered on 11/09/18at 05:05; Admin Dose 1 APPLIC; Start 11/07/18 at 09:00 Aspirin (Aspirin) 325 mg DAILY PO Last administered on 11/07/18at 12:08; Admin Dose 325 MG; Start 11/07/18 at 11:00 Ceftriaxone Sodium 50 ml @ 100 mls/hr Q24H IVPB Last administered on 11/08/18at 20:52; Admin Dose 100 MLS/HR; Start 11/07/18 at 14:30 Insulin Glargine (Lantus) 30 units DAILY@0800 SC ; Start 11/08/18 at 08:00 Hydralazine HCl (Apresoline) 10 mg Q4H PRN IV sbp >160 Last administered on 11/08/18at 08:59; Admin Dose 10 MG; Start 11/08/18 at 09:00 Morphine Sulfate (morphine) 2 mg Q4H PRN IV SEVERE PAIN LEVEL 7-10 Last administered on 11/08/18at 09:00; Admin Dose 2 MG; Start 11/08/18 at 09:00 Daptomycin 500 mg/ Sodium Chloride 100 ml @ 200 mls/hr Q24H IVPB ; Start 11/08/18 at 16:00 Nicardipine HCl 50 mg/Sodium Chloride 500 ml @ 50 mls/hr TITRATE IV ; Start 11/08/18 at 14:30 Norepinephrine 250 ml @ 1.875 mls/ hr TITRATE IV Last administered on 11/08/18at 15:36; Admin Dose 7.5 MLS/HR; Start 11/08/18 at 15:30 Lactated Ringer's 1,000 ml @ 125 mls/hr Q8H IV Last administered on 11/09/18at 06:38; Admin Dose 125 MLS/HR; Start 11/08/18 at 15:30 Insulin Aspart (Novolog Insulin Pen) NOVOLOG *MILD* ALGORITHM WITH MEALS BEDTIME SC ; Start 11/09/18 at 07:35 Assessment/Plan Assessment/Plan (Daily) 1. Nonoliguric acute kidney injury with baseline creatinine of 0.79 mg/dL. Etiology of acute kidney injury is secondary to hemodynamics, possible contrast associated nephropathy. The patient is improved with IV hydration. Continue current treatment plan, supportive care, renally dose all medications. - watch for diuretic phase of to with electrolyte wastin.. 2. Anemia. Monitor hemoglobin and hematocrit levels. 3. Mineral bone disorder. Monitor calcium and phosphorus levels. 4. Peripheral vascular disease. Continue to monitor. Follow up with surgery and podiatry. 5. Hypertension. Continue current blood pressure regimen. 6. Dyslipidemia. Continue statin therapy. 7. Neuropathy. Continue medical management. 8. Status post hyperkalemia. KINA MCNALLY MD Nov 09, 2018 07:55
[2018-11-09] MEDS: INSULIN ASPART [NOVOLOG] 3 ML PEN SC SCH ×4 (08:42→22:28)
[2018-11-09] MEDS: NEBIVOLOL 5 MG TAB PO SCH (08:53)
[2018-11-09] MEDS: PANTOPRAZOLE (EC) 40 MG TAB PO SCH (08:54)
[2018-11-09] MEDS: ASPIRIN 325 MG TAB PO SCH (08:54)
[2018-11-09] MEDS: GABAPENTIN 300 MG CAP PO SCH ×2 (08:54→20:51)
[2018-11-09] MEDS: HEPARIN 5,000 UNIT/1 ML VIAL SC SCH ×2 (08:57→21:27)
[2018-11-09] MEDS: ERGOCALCIFEROL 50,000 UNIT CAP PO SCH (09:28)
[2018-11-09] MEDS: POVIDONE IODINE 10% 28.4 GM OINT TOP SCH ×2 (09:28→23:18)
[2018-11-09] MEDS: INSULIN GLARGINE [LANTus] (100 UNITS/ML) SYG SC SCH (09:30)
--- NOTE | 2018-11-09 12:04 | PN ---
Date/Time of Note Date/Time of Note DATE: 11/09/18 TIME: 12:01 Objective Vitals Vital Signs Date Temp Pulse Resp B/P (MAP) Pulse Ox O2 O2 Flow FiO2 Time Delivery Rate 11/09/18 93 14 126/67 96 11:00 (86) 11/09/18 98.4 08:00 11/09/18 Nasal 07:00 Cannula 11/09/18 3.0 06:00 11/09/18 41 05:48 Intake and Output 11/08/18 11/08/18 11/09/18 1515:00 23:00 07:00 IntakeIntake Total 2500 ml 1600 ml 1010 ml OutputOutput Total 600 ml 150 ml 170 ml BalanceBalance 1900 ml 1450 ml 840 ml Results Result Diagram: 11/09/1838 11/09/1838 Medications Medications Current Medications Atorvastatin Calcium (Lipitor) 20 mg QHS PO Last administered on 11/08/18at 20:52; Admin Dose 20 MG; Start 11/04/18 at 21:00 Ergocalciferol (Drisdol) 50,000 unit Sa PO Last administered on 11/09/18at 09:2 8; Admin Dose 50,000 UNIT; Start 11/09/18 at 09:00 Gabapentin (Neurontin) 300 mg BID PO Last administered on 11/09/18at 08:54; Admin Dose 300 MG; Start 11/04/18 at 09:00 Miscellaneous Medication (Bystolic) 20 mg DAILY PO Last administered on 11/09/18at 08:53; Admin Dose 20 MG; Start 11/04/18 at 09:00 Pantoprazole (Protonix Tab) 40 mg DAILY PO Last administered on 11/09/18at 08:54; Admin Dose 40 MG; Start 11/04/18 at 09:00 Clonidine (Catapres) 0.1 mg Q6H PRN PO SBP>160; Start 11/04/18 at 09:00 IV Flush (NS 3 ml) 3 ml PER PROTOCOL IV ; Start 11/04/18 at 09:00 Ondansetron HCl (Zofran Inj) 4 mg Q6H PRN IV NAUSEA/VOMITING; Start 11/04/18 at 09:00 Acetaminophen (Tylenol Tab) 650 mg Q6H PRN PO .PAIN 1-3 OR TEMP; Start 11/04/18 at 09:00 Acetaminophen/ Hydrocodone Bitart ([place] (5/325)) 1 tab Q6H PRN PO .MOD PAIN 4- 6 Last administered on 11/07/18at 14:07; Admin Dose 1 TAB; Start 11/04/18 at 09 :00 Docusate Sodium (Colace) 100 mg Q12H PRN PO .CONSTIPATION; Start 11/04/18 at 09:00 Heparin Sodium (Porcine) (Heparin (5000 Units/1ml)) 5,000 unit Q12 SC Last administered on 11/09/18at 08:57; Admin Dose 5,000 UNIT; Start 11/04/18 at 09:00 Miscellaneous Information 1 ea NOTE XX ; Start 11/04/18 at 09:00 Glucose (Glutose) 15 gm Q15M PRN PO DECREASED GLUCOSE; Start 11/04/18 at 09:00 Glucose (Glutose) 22.5 gm Q15M PRN PO DECREASED GLUCOSE; Start 11/04/18 at 09:00 Dextrose (D50w Syringe) 25 ml Q15M PRN IV DECREASED GLUCOSE; Start 11/04/18 at 09:00 Dextrose (D50w Syringe) 50 ml Q15M PRN IV DECREASED GLUCOSE; Start 11/04/18 at 09:00 Glucagon (Glucagen) 1 mg Q15M PRN IM DECREASED GLUCOSE; Start 11/04/18 at 09:00 Glucose (Glutose) 15 gm Q15M PRN BUCCAL DECREASED GLUCOSE; Start 11/04/18 at 09:00 Miscellaneous Information Patients own medicat... BID@ XX Last administered on 11/09/18at 10:00; Admin Dose 1 EA; Start 11/04/18 at 16:00 Povidone Iodine (Povidone-Iodine) 1 applic BID TOP Last administered on 11/09/18at 09:28; Admin Dose 1 APPLIC; Start 11/05/18 at 21:00 Hydralazine HCl (Apresoline) 100 mg TID PO Last administered on 11/09/18at 08:54; Admin Dose 100 MG; Start 11/06/18 at 21:00 Diagnostic Test (Pha) (Accu-Chek) 1 ea 02 XX Last administered on 11/07/18at 02:48; Admin Dose 1 EA; Start 11/07/18 at 02:00 Sodium Hypochlorite (Dakins Diluted ()) 1 applic BID TP Last administered on 11/09/18 08:55; Admin Dose 1 APPLIC; Start 11/07/18 at 09:00 Aspirin (Aspirin) 325 mg DAILY PO Last administered on 11/09/18 08:54; Admin Dose 325 MG; Start 11/07/18 at 11:00 Ceftriaxone Sodium 50 ml @ 100 mls/hr Q24H IVPB Last administered on 11/08/18 20:52; Admin Dose 100 MLS/HR; Start 11/07/18 at 14:30 Insulin Glargine (Lantus) 30 units DAILY@0800 SC Last administered on 11/09/18 09:30; Admin Dose 30 UNITS; Start 11/08/18 at 08:00 Hydralazine HCl (Apresoline) 10 mg Q4H PRN IV sbp >160 Last administered on 11/08/18 08:59; Admin Dose 10 MG; Start 11/08/18 at 09:00 Morphine Sulfate (morphine) 2 mg Q4H PRN IV SEVERE PAIN LEVEL 7-10 Last administered on 11/08/18 09:00; Admin Dose 2 MG; Start 11/08/18 at 09:00 Daptomycin 500 mg/ Sodium Chloride 100 ml @ 200 mls/hr Q24H IVPB ; Start 11/08/18 at 16:00 Nicardipine HCl 50 mg/Sodium Chloride 500 ml @ 50 mls/hr TITRATE IV ; Start 11/08/18 at 14:30 Norepinephrine 250 ml @ 1.875 mls/ hr TITRATE IV Last administered on 11/08/18 15:36; Admin Dose 7.5 MLS/HR; Start 11/08/18 at 15:30 Lactated Ringer's 1,000 ml @ 125 mls/hr Q8H IV Last administered on 11/09/18 06:38; Admin Dose 125 MLS/HR; Start 11/08/18 at 15:30 Insulin Aspart (Novolog Insulin Pen) NOVOLOG *MILD* ALGORITHM WITH MEALS BEDTIME SC Last administered on 11/09/18 08:42; Admin Dose 2 UNIT; Start 11/09/18 at 07:35 VTE Prophylaxis Risk score (from Nsg)>0 risk: 8 SCD applied (from Nsg): No SCD contraindication: other Lines/Catheters IV Catheter Type: Vora in Place: No Assessment/Plan Hospital Course Subjective Patient was doing well, only overnight event was patient had a prior choking episode which almost initiated CODE BLUE however patient quickly threw up and all symptoms resolved, patient has no acute complaints at this time except for some surgical site pain Objective Physical exam General: Patient is laying in bed and answers questions appropriately Mentation: Patient is alert and oriented 4, Head: Normocephalic atraumatic Eyes: EOMI, pupils reactive to light Neck: Supple, nontender, midline Respiratory: Clear to auscultation bilaterally Cardiovascular: regular rate, no obvious murmurs Gastrointestinal: non-tender to palpation, bowel sounds heard. Neurological: Moves all extremities spontaneously Skin: No new skin lesions, surgical site clean, bandaged, dry, intact ASSESSMENT AND PLAN:72 yo M w/htn, dm2, right 2nd toe amputation, neuropathy,dlp, PAD, left 5th toe ulcer here w/worsening left 5th toe gangrenosus ulcer.. left fifth toe gangrenous ulcer -Patient status post left femoral endarterectomy, iliofemoral bypass and femoral to posterior tibial bypass done on November 08, 2018 -Continue IV antimicrobials and follow-up cultures. -Wound care -Glycemic management -Follow-up vascular/podiatry recommendations Severe peripheral vascular disease -Status post aortogram and plan for Fem-tibial bypass today -Vascular surgery recommendations appreciated Poorly controlled DMII -improving -Basal/bolus insulin-titrate per need Acute kidney injury -Renal function worsened today likely secondary to contrast-induced nephropathy. -Follow-up nephrology recommendations and monitor renal function closely. Hyperkalemia -Continue holding SHANAE inhibitors. -Kayexalate as needed Essential HTN -Continue bb/hydralazine -PRN clonidine Peripheral neuropathy -cont. gabapentin Dyslipidemia -cont. statin Chronic anemia -Stable H&H. Monitor DVT prophylaxis: Heparin when okay with vascular surgeon PUD prophylaxis: PPI Disposition: -More than 40 minutes have been spent on this encounter -Okay to downgrade when okay with vascular surgeon FRANTZ SCHWAB Nov 09, 2018 12:03
--- NOTE | 2018-11-09 13:38 | CONS ---
Assessment/Plan Assessment/Plan Hospital Course (Demo Recall) ID PROGRESS NOTE CURRENT ABX: DAY # =>Daptomycin + Ceftriaxone 11/09/18 0838 11/09/18 0838 24H INTERVAL SUMMARY * POD #1-> S/P 11/08/18 Left femoral endarterectomy w/Left iliofemoral bypass, and Left femoral->posterior tibial bypass * PREOPERATIVE DIAGNOSIS: Left fifth toe gangrene. * POSTOPERATIVE DIAGNOSIS: Left fifth toe gangrene. * A/A/O -- daughter in room visiting, he is doing remarkably well post op w/plans to TNS out of ICU * VSS, NAD, no fevers * Microbiology: Cultures negative DIAGNOSTIC IMAGING * 11/08/18 CXR: Worsening diffuse bilateral reticular nodular infiltrates. PHYSICAL EXAMINATION: GENERAL: VSS, NAD HEENT: AT, NC, NECK: Supple, CHEST: Rise symmetrical HEART: Pulse RRR ABDOMEN: Benign EXTREMITIES: Warm, dry == left foot DSG C/D/I SKIN: No rash, no diaphoresis ID ASSESSMENT 72 yo M admit with: 1. Left foot gangrene 2. Peripheral arterial disease * POD #1-> S/P 11/08/18 Left femoral endarterectomy w/Left iliofemoral bypass, and Left femoral->posterior tibial bypass 3. Diffuse pulmonary infiltrates == DDx CHF (STG I diastolic HF) w/possible superimposed HCAP 4. Hypertension w/HTN heart disease 5. Diabetes w/complications of peripheral neuropathy, vasculopathy 6. History of left foot second toe amputation 7. Acute kidney injury due to "NAVID" contrast induced necropathy post angiogram (-)MRSA Nares ABX ALLERGIES: KNDA INVASIVES: PIV CURRENT ABX: DAY # => Daptomycin + Ceftriaxone ID RECOMMENDATIONS/PLAN: 1. Continue current ABX over the weekend 2. Per daughter plan is for further surgical intervention left foot gangrene future. . Consultation Date/Type/Reason Admit Date/Time Nov 04, 2018 at 07:34 Initial Consult Date Requesting Provider: KARLA LAIRD NP Date/Time of Note DATE: 11/09/18 TIME: 13:37 Exam/Review of Systems Exam Vitals Vital Signs Date Temp Pulse Resp B/P (MAP) Pulse Ox O2 O2 Flow FiO2 Time Delivery Rate 11/09/18 93 14 126/67 96 11:00 (86) 11/09/18 98.4 08:00 11/09/18 Nasal 07:00 Cannula 11/09/18 3.0 06:00 11/09/18 41 05:48 Intake and Output 11/08/18 11/08/18 11/09/18 1515:00 23:00 07:00 IntakeIntake Total 2500 ml 1600 ml 1010 ml OutputOutput Total 600 ml 150 ml 170 ml BalanceBalance 1900 ml 1450 ml 840 ml Results Result Diagram: 11/09/18 0838 11/09/18 0838 Results 24hrs Laboratory Tests Test 11/08/18 14:55 11/08/18 17:36 11/08/18 21:24 11/08/18 21:39 Bedside Glucose 204 170 264 H Blood Gas Blood arterial Specimen Source Arterial Blood 11/08/2018 9:30: Date Drawn 13 PM Arterial Blood 7.246 *L pH (Temp corrected) Arterial Blood 51.8 H pCO2 (Temp correct) Arterial Blood 76.5 L pO2 (Temp corrected) Arterial Blood 22.0 HCO3 Arterial Blood -5.3 L Base Excess Arterial Blood 92.5 L Oxygen Saturatio n Jeison Test ACCEPTAB Arterial Blood Right Radial Gas Puncture Site Arterial 0.2 Blood Carboxyhem oglobin Arterial Blood 0.3 Methemoglobin Blood Gas A-a O2 120.1 H Differential Oxyhemoglobin 92.0 L Percent Blood Gas 37.0 Temperature Blood Gas NASAL CANNULA Modality FiO2 36.0 Blood Gas Joce MAZA RN Critical Value Read Back Blood Gas UP Notified Whom Blood Gas 11/08/2018 9:42: Notified Time 48 PM Test 11/09/18 01:29 11/09/18 07:00 11/09/18 08:35 11/09/18 08:38 Bedside Glucose 216 204 Blood Gas Blood arterial Specimen Source Arterial Blood 11/09/2018 8:00: Date Drawn 28 AM Arterial Blood 7.320 L pH (Temp corrected) Arterial Blood 46.6 H pCO2 (Temp correct) Arterial Blood 99.8 H pO2 (Temp corrected) Arterial Blood 23.5 HCO3 Arterial Blood -2.6 Base Excess Arterial Blood 96.4 Oxygen Saturatio n Jeison Test ACCEPTAB Arterial Blood Right Radial Gas Puncture Site Arterial 0.6 Blood Carboxyhem oglobin Arterial Blood 0.3 Methemoglobin Blood Gas A-a O2 59.3 H Differential Oxyhemoglobin 95.5 Percent Blood Gas 37.0 Temperature Blood Gas NASAL CANNULA Modality FiO2 30.0 Blood Gas AT Notified Whom Blood Gas 11/09/2018 8:09: Notified Time 29 AM White Blood 8.5 # Count Red Blood Count 2.70 #L Hemoglobin 8.2 #L Hematocrit 26.9 #L Mean Corpuscular 99.6 Volume Mean Corpuscular 30.4 Hemoglobin Mean Corpuscular 30.5 L Hemoglobin [place] nt Red Cell 13.3 Distribution Width Platelet Count 162 # Mean Platelet 10.5 H Volume Immature 0.500 H Granulocytes % Neutrophils % 66.0 Lymphocytes % 18.3 Monocytes % 12.7 H Eosinophils % 1.9 Basophils % 0.6 Nucleated Red 0.0 Blood Cells % Immature 0.040 H Granulocytes # Neutrophils # 5.6 Lymphocytes # 1.6 Monocytes # 1.1 H Eosinophils # 0.2 Basophils # 0.1 Nucleated Red 0.0 Blood Cells # Sodium Level 137 Potassium Level 4.7 Chloride Level 103 Carbon Dioxide 25 Level Anion Gap 9 Blood Urea 24 H Nitrogen Creatinine 1.43 H Est Glomerular Filtrat Rate mL/min Glucose Level 198 Calcium Level 7.7 L Total Bilirubin 0.3 Direct Bilirubin 0.00 Indirect 0.3 Bilirubin Aspartate Amino 21 Transf (AST/SGOT ) Alanine 19 Aminotransferase (ALT/SGPT) Alkaline 53 Phosphatase Total Protein 5.8 L Albumin 3.0 L Globulin 2.80 Albumin/Globulin 1.07 Ratio Test 11/09/18 12:08 Bedside Glucose 242 H Medications Medication Current Medications Atorvastatin Calcium (Lipitor) 20 mg QHS PO Last administered on 11/08/18at 20:52; Admin Dose 20 MG; Start 11/04/18 at 21:00 Ergocalciferol (Drisdol) 50,000 unit Sa PO Last administered on 11/09/18at 09:28; Admin Dose 50,000 UNIT; Start 11/09/18 at 09:00 Gabapentin (Neurontin) 300 mg BID PO Last administered on 11/09/18at 08:54; Admin Dose 300 MG; Start 11/04/18 at 09:00 Miscellaneous Medication (Bystolic) 20 mg DAILY PO Last administered on 11/09/18at 08:53; Admin Dose 20 MG; Start 11/04/18 at 09:00 Pantoprazole (Protonix Tab) 40 mg DAILY PO Last administered on 11/09/18at 08:54; Admin Dose 40 MG; Start 11/04/18 at 09:00 Clonidine (Catapres) 0.1 mg Q6H PRN PO SBP>160; Start 11/04/18 at 09:00 IV Flush (NS 3 ml) 3 ml PER PROTOCOL IV ; Start 11/04/18 at 09:00 Ondansetron HCl (Zofran Inj) 4 mg Q6H PRN IV NAUSEA/VOMITING; Start 11/04/18 at 09:00 Acetaminophen (Tylenol Tab) 650 mg Q6H PRN PO .PAIN 1-3 OR TEMP; Start 11/04/18 at 09:00 Acetaminophen/ Hydrocodone Bitart ([place] (5/325)) 1 tab Q6H PRN PO .MOD PAIN 4- 6 Last administered on 11/07/18at 14:07; Admin Dose 1 TAB; Start 11/04/18 at 09:00 Docusate Sodium (Colace) 100 mg Q12H PRN PO .CONSTIPATION; Start 11/04/18 at 09 :00 Heparin Sodium (Porcine) (Heparin (5000 Units/1ml)) 5,000 unit Q12 SC Last administered on 11/09/18at 08:57; Admin Dose 5,000 UNIT; Start 11/04/18 at 09:00 Miscellaneous Information 1 ea NOTE XX ; Start 11/04/18 at 09:00 Glucose (Glutose) 15 gm Q15M PRN PO DECREASED GLUCOSE; Start 11/04/18 at 09:00 Glucose (Glutose) 22.5 gm Q15M PRN PO DECREASED GLUCOSE; Start 11/04/18 at 09:00 Dextrose (D50w Syringe) 25 ml Q15M PRN IV DECREASED GLUCOSE; Start 11/04/18 at 09:00 Dextrose (D50w Syringe) 50 ml Q15M PRN IV DECREASED GLUCOSE; Start 11/04/18 at 09:00 Glucagon (Glucagen) 1 mg Q15M PRN IM DECREASED GLUCOSE; Start 11/04/18 at 09:00 Glucose (Glutose) 15 gm Q15M PRN BUCCAL DECREASED GLUCOSE; Start 11/04/18 at 09:00 Miscellaneous Information Patients own medicat... BID@ XX Last admini stered on 11/09/18at 10:00; Admin Dose 1 EA; Start 11/04/18 at 16:00 Povidone Iodine (Povidone-Iodine) 1 applic BID TOP Last administered on 11/09/18 09:28; Admin Dose 1 APPLIC; Start 11/05/18 at 21:00 Hydralazine HCl (Apresoline) 100 mg TID PO Last administered on 11/09/18 12:48; Admin Dose 100 MG; Start 11/06/18 at 21:00 Diagnostic Test (Pha) (Accu-Chek) 1 ea 02 XX Last administered on 11/07/18 02:48; Admin Dose 1 EA; Start 11/07/18 at 02:00 Sodium Hypochlorite (Dakins Diluted ()) 1 applic BID TP Last administered on 11/09/18 08:55; Admin Dose 1 APPLIC; Start 11/07/18 at 09:00 Aspirin (Aspirin) 325 mg DAILY PO Last administered on 11/09/18 08:54; Admin Dose 325 MG; Start 11/07/18 at 11:00 Ceftriaxone Sodium 50 ml @ 100 mls/hr Q24H IVPB Last administered on 11/08/18 20:52; Admin Dose 100 MLS/HR; Start 11/07/18 at 14:30 Insulin Glargine (Lantus) 30 units DAILY@0800 SC Last administered on 11/09/18 09:30; Admin Dose 30 UNITS; Start 11/08/18 at 08:00 Hydralazine HCl (Apresoline) 10 mg Q4H PRN IV sbp >160 Last administered on 11/08/18 08:59; Admin Dose 10 MG; Start 11/08/18 at 09:00 Morphine Sulfate (morphine) 2 mg Q4H PRN IV SEVERE PAIN LEVEL 7-10 Last administered on 11/08/18 09:00; Admin Dose 2 MG; Start 11/08/18 at 09:00 Daptomycin 500 mg/ Sodium Chloride 100 ml @ 200 mls/hr Q24H IVPB ; Start 11/08/18 at 16:00 Nicardipine HCl 50 mg/Sodium Chloride 500 ml @ 50 mls/hr TITRATE IV ; Start 11/08/18 at 14:30 Norepinephrine 250 ml @ 1.875 mls/ hr TITRATE IV Last administered on 6/21/19at 15:36; Admin Dose 7.5 MLS/HR; Start 11/08/18 at 15:30 Lactated Ringer's 1,000 ml @ 125 mls/hr Q8H IV Last administered on 11/09/18 06:38; Admin Dose 125 MLS/HR; Start 11/08/18 at 15:30 Insulin Aspart (Novolog Insulin Pen) NOVOLOG *MILD* ALGORITHM WITH MEALS BEDTI ME SC Last administered on 11/09/18at 12:47; Admin Dose 3 UNIT; Start 11/09/18 at 07:35 NESS MUNOZ NP Nov 09, 2018 13:38
--- NOTE | 2018-11-09 13:49 | PN ---
Date/Time of Note Date/Time of Note DATE: 11/09/18 TIME: 13:45 Objective Vitals Vital Signs Date Temp Pulse Resp B/P (MAP) Pulse Ox O2 O2 Flow FiO2 Time Delivery Rate 11/09/18 93 14 126/67 96 11:00 (86) 11/09/18 98.4 08:00 11/09/18 Nasal 07:00 Cannula 11/09/18 3.0 06:00 11/09/18 41 05:48 Intake and Output 11/08/18 11/08/18 11/09/18 1515:00 23:00 07:00 IntakeIntake Total 2500 ml 1600 ml 1010 ml OutputOutput Total 600 ml 150 ml 170 ml BalanceBalance 1900 ml 1450 ml 840 ml Left LE incisions are clean and dry. Strong biphasic signal on PT and peroneal art. Results Result Diagram: 11/09/18 0838 11/09/18 0838 Medications Medications Current Medications Atorvastatin Calcium (Lipitor) 20 mg QHS PO Last administered on 11/08/18at 20:52; Admin Dose 20 MG; Start 11/04/18 at 21:00 Ergocalciferol (Drisdol) 50,000 unit Sa PO Last administered on 11/09/18at 09:28; Admin Dose 50,000 UNIT; Start 11/09/18 at 09:00 Gabapentin (Neurontin) 300 mg BID PO Last administered on 11/09/18at 08:54; Admin Dose 300 MG; Start 11/04/18 at 09:00 Miscellaneous Medication (Bystolic) 20 mg DAILY PO Last administered on 11/09/18at 08:53; Admin Dose 20 MG; Start 11/04/18 at 09:00 Pantoprazole (Protonix Tab) 40 mg DAILY PO Last administered on 11/09/18at 08:54; Admin Dose 40 MG; Start 11/04/18 at 09:00 Clonidine (Catapres) 0.1 mg Q6H PRN PO SBP>160; Start 11/04/18 at 09:00 IV Flush (NS 3 ml) 3 ml PER PROTOCOL IV ; Start 11/04/18 at 09:00 Ondansetron HCl (Zofran Inj) 4 mg Q6H PRN IV NAUSEA/VOMITING; Start 11/04/18 at 09:00 Acetaminophen (Tylenol Tab) 650 mg Q6H PRN PO .PAIN 1-3 OR TEMP; Start 11/04/18 at 09:00 Acetaminophen/ Hydrocodone Bitart ([place] (5/325)) 1 tab Q6H PRN PO .MOD PAIN 4- 6 Last administered on 11/07/18at 14:07; Admin Dose 1 TAB; Start 11/04/18 at 09:00 Docusate Sodium (Colace) 100 mg Q12H PRN PO .CONSTIPATION; Start 11/04/18 at 09:00 Heparin Sodium (Porcine) (Heparin (5000 Units/1ml)) 5,000 unit Q12 SC Last administered on 11/09/18at 08:57; Admin Dose 5,000 UNIT; Start 11/04/18 at 09:00 Miscellaneous Information 1 ea NOTE XX ; Start 11/04/18 at 09:00 Glucose (Glutose) 15 gm Q15M PRN PO DECREASED GLUCOSE; Start 11/04/18 at 09:00 Glucose (Glutose) 22.5 gm Q15M PRN PO DECREASED GLUCOSE; Start 11/04/18 at 09:00 Dextrose (D50w Syringe) 25 ml Q15M PRN IV DECREASED GLUCOSE; Start 11/04/18 at 09:00 Dextrose (D50w Syringe) 50 ml Q15M PRN IV DECREASED GLUCOSE; Start 11/04/18 at 09:00 Glucagon (Glucagen) 1 mg Q15M PRN IM DECREASED GLUCOSE; Start 11/04/18 at 09:00 Glucose (Glutose) 15 gm Q15M PRN BUCCAL DECREASED GLUCOSE; Start 11/04/18 at 09:00 Miscellaneous Information Patients own medicat... BID@ XX Last administered on 11/09/18at 10:00; Admin Dose 1 EA; Start 11/04/18 at 16:00 Povidone Iodine (Povidone-Iodine) 1 applic BID TOP Last administered on 11/09/18at 09:28; Admin Dose 1 APPLIC; Start 11/05/18 at 21:00 Hydralazine HCl (Apresoline) 100 mg TID PO Last administered on 11/09/18at 12:48; Admin Dose 100 MG; Start 11/06/18 at 21:00 Diagnostic Test (Pha) (Accu-Chek) 1 ea 02 XX Last administered on 11/07/18 02:48; Admin Dose 1 EA; Start 11/07/18 at 02:00 Sodium Hypochlorite (Dakins Diluted ()) 1 applic BID TP Last administered on 11/09/18 08:55; Admin Dose 1 APPLIC; Start 11/07/18 at 09:00 Aspirin (Aspirin) 325 mg DAILY PO Last administered on 11/09/18 08:54; Admin Dose 325 MG; Start 11/07/18 at 11:00 Ceftriaxone Sodium 50 ml @ 100 mls/hr Q24H IVPB Last administered on 11/08/18 20:52; Admin Dose 100 MLS/HR; Start 11/07/18 at 14:30 Insulin Glargine (Lantus) 30 units DAILY@0800 SC Last administered on 11/09/18 09:30; Admin Dose 30 UNITS; Start 11/08/18 at 08:00 Hydralazine HCl (Apresoline) 10 mg Q4H PRN IV sbp >160 Last administered on 11/08/18 08:59; Admin Dose 10 MG; Start 11/08/18 at 09:00 Morphine Sulfate (morphine) 2 mg Q4H PRN IV SEVERE PAIN LEVEL 7-10 Last administered on 11/08/18 09:00; Admin Dose 2 MG; Start 11/08/18 at 09:00 Daptomycin 500 mg/ Sodium Chloride 100 ml @ 200 mls/hr Q24H IVPB ; Start 11/08/18 at 16:00 Nicardipine HCl 50 mg/Sodium Chloride 500 ml @ 50 mls/hr TITRATE IV ; Start 11/08/18 at 14:30 Norepinephrine 250 ml @ 1.875 mls/ hr TITRATE IV Last administered on 11/08/18 15:36; Admin Dose 7.5 MLS/HR; Start 11/08/18 at 15:30 Lactated Ringer's 1,000 ml @ 125 mls/hr Q8H IV Last administered on 11/09/18 06:38; Admin Dose 125 MLS/HR; Start 11/08/18 at 15:30 Insulin Aspart (Novolog Insulin Pen) NOVOLOG *MILD* ALGORITHM WITH MEALS BEDTIME SC Last administered on 11/09/18 12:47; Admin Dose 3 UNIT; Start 11/09/18 at 07:35 VTE Prophylaxis Risk score (from Nsg)>0 risk: 8 SCD applied (from [facility] [place] No SCD contraindication: other (left LE bypass) Lines/Catheters IV Catheter Type: Peripheral IV Schneider in Place: No Assessment/Plan Assessment/Plan POD#1 s/p left ilio-fem bypass and fem tib bypass. OK to d/c schneider cath. ambulate. OK to transfer out of ICU as per medicine. PT eval and ttt. ADRYAN LEDBETTER MD Nov 09, 2018 13:49
[2018-11-09] MEDS: CEFTRIAXONE 1 GM/50 ML (PMX) 50 ML IVPB SCH (15:39)
[2018-11-09] MEDS: HYDROCODONE/APAP (5/325) TAB PO PRN (17:25)
[2018-11-09] MEDS: DAPTOMYCIN 500 MG in SOD CHLORIDE 0.9% 100 ML IVPB SCH (17:28)
--- NOTE | 2018-11-09 19:03 | CONS ---
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 Patient will benefit from left 5th digit amputation or possible partial 5th ray resection along with wound debridement. Likely plan for next week. Continue with IV abx per recommendations. Continue with dressing changes to the left foot and offload with pillows to prevent heel ulcerations. Wound cultures pending. Tight glycemic control. Consultation Date/Type/Reason Admit Date/Time Nov 04, 2018 at 07:34 Initial Consult Date Requesting Provider: KARLA LAIRD NP Date/Time of Note DATE: 11/09/18 TIME: 19:02 24 HR Interval Summary Free Text/Dictation No acute events overnight Exam/Review of Systems Exam Vitals Vital Signs Date Temp Pulse Resp B/P (MAP) Pulse Ox O2 O2 Flow FiO2 Time Delivery Rate 11/09/18 96 17:06 11/09/18 16 121/62 98 15:00 (81) 11/09/18 98.8 12:00 11/09/18 Nasal 3.0 08:00 Cannula 11/09/18 41 05:48 Intake and Output 11/08/18 11/08/18 11/09/18 1515:00 23:00 07:00 IntakeIntake Total 2500 ml 1600 ml 1135 ml OutputOutput Total 600 ml 150 ml 170 ml BalanceBalance 1900 ml 1450 ml 965 ml Exam Dressings to vascular bypass site Absent protective sensations Left foot 5th digit gangrene with exposed bone, mild erythema surrounding ulcer site and mild purulence appreciated to the ulcer site. Measured 2 x 1.5 x 0.5cm fibronecrotic wound bed. No proximal streaking Left hallux 0.5 x 0.6 x 0.2cm granular ulcer, no purulence, does not probe to bone. Left 2nd digit amputation site appreciated. Results Result Diagram: 11/09/18 0838 11/09/18 0838 Results 24hrs Laboratory Tests Test 11/08/18 21:24 11/08/18 21:39 11/09/18 01:29 11/09/18 07:00 Blood Gas Blood arterial Blood arterial Specimen Source Arterial Blood 11/08/2018 9:30: 11/09/2018 8:00: Date Drawn 13 PM 28 AM Arterial Blood 7.246 *L 7.320 L pH (Temp corrected) Arterial Blood 51.8 H 46.6 H pCO2 (Temp correct) Arterial Blood 76.5 L 99.8 H pO2 (Temp corrected) Arterial Blood 22.0 23.5 HCO3 Arterial Blood -5.3 L -2.6 Base Excess Arterial Blood 92.5 L 96.4 Oxygen Saturatio n Jeison Test ACCEPTAB ACCEPTAB Arterial Blood Right Radial Right Radial Gas Puncture Site Arterial 0.2 0.6 Blood Carboxyhem oglobin Arterial Blood 0.3 0.3 Methemoglobin Blood Gas A-a O2 120.1 H 59.3 H Differential Oxyhemoglobin 92.0 L 95.5 Percent Blood Gas 37.0 37.0 Temperature Blood Gas NASAL CANNULA NASAL CANNULA Modality FiO2 36.0 30.0 Blood Gas Joce MAZA RN Critical Value Read Back Blood Gas UP AT Notified Whom Blood Gas 11/08/2018 9:42: 11/09/2018 8:09: Notified Time 48 PM 29 AM Bedside Glucose 264 H 216 Test 11/09/18 08:35 11/09/18 08:38 11/09/18 12:08 11/09/18 17:27 Bedside Glucose 204 242 H 325 H White Blood 8.5 # Count Red Blood Count 2.70 #L Hemoglobin 8.2 #L Hematocrit 26.9 #L Mean Corpuscular 99.6 Volume Mean Corpuscular 30.4 Hemoglobin Mean Corpuscular 30.5 L Hemoglobin [place] nt Red Cell 13.3 Distribution Width Platelet Count 162 # Mean Platelet 10.5 H Volume Immature 0.500 H Granulocytes % Neutrophils % 66.0 Lymphocytes % 18.3 Monocytes % 12.7 H Eosinophils % 1.9 Basophils % 0.6 Nucleated Red 0.0 Blood Cells % Immature 0.040 H Granulocytes # Neutrophils # 5.6 Lymphocytes # 1.6 Monocytes # 1.1 H Eosinophils # 0.2 Basophils # 0.1 Nucleated Red 0.0 Blood Cells # Sodium Level 137 Potassium Level 4.7 Chloride Level 103 Carbon Dioxide 25 Level Anion Gap 9 Blood Urea 24 H Nitrogen Creatinine 1.43 H Est Glomerular Filtrat Rate mL/min Glucose Level 198 Calcium Level 7.7 L Total Bilirubin 0.3 Direct Bilirubin 0.00 Indirect 0.3 Bilirubin Aspartate Amino 21 Transf (AST/SGOT ) Alanine 19 Aminotransferase (ALT/SGPT) Alkaline 53 Phosphatase Total Protein 5.8 L Albumin 3.0 L Globulin 2.80 Albumin/Globulin 1.07 Ratio Medications Medication Current Medications Atorvastatin Calcium (Lipitor) 20 mg QHS PO Last administered on 11/08/18at 20:52; Admin Dose 20 MG; Start 11/04/18 at 21:00 Ergocalciferol (Drisdol) 50,000 unit Sa PO Last administered on 11/09/18 09:28; Admin Dose 50,000 UNIT; Start 11/09/18 at 09:00 Gabapentin (Neurontin) 300 mg BID PO Last administered on 11/09/18 08:54; Admin Dose 300 MG; Start 11/04/18 at 09:00 Miscellaneous Medication (Bystolic) 20 mg DAILY PO Last administered on 11/09/18 08:53; Admin Dose 20 MG; Start 11/04/18 at 09:00 Pantoprazole (Protonix Tab) 40 mg DAILY PO Last administered on 11/09/18 08:54; Admin Dose 40 MG; Start 11/04/18 at 09:00 Clonidine (Catapres) 0.1 mg Q6H PRN PO SBP>160; Start 11/04/18 at 09:00 IV Flush (NS 3 ml) 3 ml PER PROTOCOL IV ; Start 11/04/18 at 09:00 Ondansetron HCl (Zofran Inj) 4 mg Q6H PRN IV NAUSEA/VOMITING; Start 11/04/18 at 09:00 Acetaminophen (Tylenol Tab) 650 mg Q6H PRN PO .PAIN 1-3 OR TEMP; Start 11/04/18 at 09:00 Acetaminophen/ Hydrocodone Bitart (Climax (5/325)) 1 tab Q6H PRN PO .MOD PAIN 4- 6 Last administered on 11/09/18at 17:25; Admin Dose 1 TAB; Start 11/04/18 at 09:00 Docusate Sodium (Colace) 100 mg Q12H PRN PO .CONSTIPATION; Start 11/04/18 at 09:00 Heparin Sodium (Porcine) (Heparin (5000 Units/1ml)) 5,000 unit Q12 SC Last administered on 11/09/18at 08:57; Admin Dose 5,000 UNIT; Start 11/04/18 at 09:00 Miscellaneous Information 1 ea NOTE XX ; Start 11/04/18 at 09:00 Glucose (Glutose) 15 gm Q15M PRN PO DECREASED GLUCOSE; Start 11/04/18 at 09:00 Glucose (Glutose) 22.5 gm Q15M PRN PO DECREASED GLUCOSE; Start 11/04/18 at 09:00 Dextrose (D50w Syringe) 25 ml Q15M PRN IV DECREASED GLUCOSE; Start 11/04/18 at 09:00 Dextrose (D50w Syringe) 50 ml Q15M PRN IV DECREASED GLUCOSE; Start 11/04/18 at 09:00 Glucagon (Glucagen) 1 mg Q15M PRN IM DECREASED GLUCOSE; Start 11/04/18 at 09:00 Glucose (Glutose) 15 gm Q15M PRN BUCCAL DECREASED GLUCOSE; Start 11/04/18 at 09:00 Miscellaneous Information Patients own medicat... BID@10,16 XX Last administered on 11/09/18 16:00; Admin Dose 1 EA; Start 11/04/18 at 16:00 Povidone Iodine (Povidone-Iodine) 1 applic BID TOP Last administered on 09:28; Admin Dose 1 APPLIC; Start 11/05/18 at 21:00 Hydralazine HCl (Apresoline) 100 mg TID PO Last administered on 11/09/18 12:48; Admin Dose 100 MG; Start 11/06/18 at 21:00 Diagnostic Test (Pha) (Accu-Chek) 1 ea 02 XX Last administered on 11/07/18 02:48; Admin Dose 1 EA; Start 11/07/18 at 02:00 Sodium Hypochlorite (Dakins Diluted ()) 1 applic BID TP Last administered on 11/09/18 08:55; Admin Dose 1 APPLIC; Start 11/07/18 at 09:00 Aspirin (Aspirin) 325 mg DAILY PO Last administered on 11/09/18 08:54; Admin Dose 325 MG; Start 11/07/18 at 11:00 Ceftriaxone Sodium 50 ml @ 100 mls/hr Q24H IVPB Last administered on 11/09/18 15:39; Admin Dose 100 MLS/HR; Start 11/07/18 at 14:30 Insulin Glargine (Lantus) 30 units DAILY@0800 SC Last administered on 11/09/18 09:30; Admin Dose 30 UNITS; Start 11/08/18 at 08:00 Hydralazine HCl (Apresoline) 10 mg Q4H PRN IV sbp >160 Last administered on 11/08/18 08:59; Admin Dose 10 MG; Start 11/08/18 at 09:00 Morphine Sulfate (morphine) 2 mg Q4H PRN IV SEVERE PAIN LEVEL 7-10 Last administered on 11/08/18 09:00; Admin Dose 2 MG; Start 11/08/18 at 09:00 Daptomycin 500 mg/ Sodium Chloride 100 ml @ 200 mls/hr Q24H IVPB Last admini stered on 11/09/18 17:28; Admin Dose 200 MLS/HR; Start 11/08/18 at 16:00 Lactated Ringer's 1,000 ml @ 125 mls/hr Q8H IV Last administered on 11/09/18 15:39; Admin Dose 125 MLS/HR; Start 11/08/18 at 15:30 Insulin Aspart (Novolog Insulin Pen) NOVOLOG *MILD* ALGORITHM WITH MEALS BEDTIME SC Last administered on 11/09/18 17:37; Admin Dose 5 UNIT; Start 11/09/18 at 07:35 IVELISSE BLACKWELL DPM Nov 09, 2018 19:03
[2018-11-09] MEDS: ATORVASTATIN 20 MG TAB PO SCH (20:51)
[2018-11-10] VITALS (13 sets, daily range): BP systolic 98–117; BP diastolic 53–58; PULSE 74–103; RESP 18–22
[2018-11-10] MEDS: LACTATED RINGER'S 1,000 ML IV SCH ×4 (01:20→21:30)
[2018-11-10] MEDS: morphine 2 MG INJ IV PRN (01:20)
[2018-11-10] MEDS: ACCUCHECK AT 2AM (Patients on SS coverage) XX SCH (02:55)
[2018-11-10] MEDS: INSULIN ASPART [NOVOLOG] 3 ML PEN SC SCH ×6 (08:06→21:20)
--- NOTE | 2018-11-10 08:14 | CONS ---
Consult Date/Type/Reason Admit Date/Time Nov 04, 2018 at 07:34 Initial Consult Date Requesting Provider: KARLA LAIRD NP Date/Time of Note DATE: 11/10/18 TIME: 08:12 Subjective sp fempop bypass. continues good uo poc reviewed with dr. harris. labs pending this am OBJECTIVE: HEENT: Head is normocephalic. NECK: Supple. HEART: Regular rate. LUNGS: Diminished breath sounds at the base. ABDOMEN: Soft, nontender to palpation without rebound or guarding. EXTREMITIES: Negative for clubbing, cyanosis, no edema. DERMATOLOGIC: No rashes. MUSCULOSKELETAL: No joint effusion. NEUROLOGIC: No change in exam. Objective Vitals Vital Signs Date Temp Pulse Resp B/P (MAP) Pulse Ox O2 O2 Flow FiO2 Time Delivery Rate 11/10/18 100.0 99 18 109/54 97 07:40 (72) 11/10/18 4.0 06:18 11/09/18 Room Air 20:43 11/09/18 41 05:48 Intake and Output 11/09/18 11/09/18 11/10/18 1515:00 23:00 07:00 IntakeIntake Total 1480 ml 525 ml 1450 ml OutputOutput Total 400 ml BalanceBalance 1080 ml 525 ml 1450 ml Results/Medications Result Diagram: 11/10/18 0542 11/10/18 0542 Results 24 hrs Laboratory Tests Test 11/09/18 08:35 11/09/18 08:38 11/09/18 12:08 11/09/18 17:27 Bedside Glucose 204 242 H 325 H White Blood Count 8.5 # Red Blood Count 2.70 #L Hemoglobin 8.2 #L Hematocrit 26.9 #L Mean Corpuscular 99.6 Volume Mean Corpuscular 30.4 Hemoglobin Mean Corpuscular 30.5 L Hemoglobin Concent Red Cell 13.3 Distribution Width Platelet Count 162 # Mean Platelet Volume 10.5 H Immature 0.500 H Granulocytes % Neutrophils % 66.0 Lymphocytes % 18.3 Monocytes % 12.7 H Eosinophils % 1.9 Basophils % 0.6 Nucleated Red Blood 0.0 Cells % Immature 0.040 H Granulocytes # Neutrophils # 5.6 Lymphocytes # 1.6 Monocytes # 1.1 H Eosinophils # 0.2 Basophils # 0.1 Nucleated Red Blood 0.0 Cells # Sodium Level 137 Potassium Level 4.7 Chloride Level 103 Carbon Dioxide Level 25 Anion Gap 9 Blood Urea Nitrogen 24 H Creatinine 1.43 H Est Glomerular Filtrat Rate mL/min Glucose Level 198 Calcium Level 7.7 L Total Bilirubin 0.3 Direct Bilirubin 0.00 Indirect Bilirubin 0.3 Aspartate Amino 21 Transf (AST/SGOT) Alanine 19 Aminotransferase (AL T/SGPT) Alkaline Phosphatase 53 Total Protein 5.8 L Albumin 3.0 L Globulin 2.80 Albumin/Globulin 1.07 Ratio Test 11/09/18 20:50 11/09/18 22:21 11/10/18 02:50 11/10/18 05:42 Bedside Glucose 268 H 256 H 206 White Blood Count 11.5 #H Red Blood Count 2.66 L Hemoglobin 8.1 L Hematocrit 26.1 L Mean Corpuscular 98.1 Volume Mean Corpuscular 30.5 Hemoglobin Mean Corpuscular 31.0 L Hemoglobin Concent Red Cell 13.3 Distribution Width Platelet Count 169 Mean Platelet Volume 10.6 H Immature 0.700 H Granulocytes % Neutrophils % 81.2 H Lymphocytes % 8.6 L Monocytes % 8.4 Eosinophils % 0.8 Basophils % 0.3 Nucleated Red Blood 0.0 Cells % Immature 0.080 H Granulocytes # Neutrophils # 9.3 H Lymphocytes # 1.0 Monocytes # 1.0 H Eosinophils # 0.1 Basophils # 0.0 Nucleated Red Blood 0.0 Cells # Sodium Level 132 L Potassium Level 5.1 Chloride Level 104 Carbon Dioxide Level 22 Anion Gap 6 Blood Urea Nitrogen 25 H Creatinine 1.28 H Est Glomerular Filtrat Rate mL/min Glucose Level 205 Calcium Level 7.9 L Phosphorus Level 2.0 L Magnesium Level 1.7 Total Bilirubin 0.2 Direct Bilirubin 0.00 Indirect Bilirubin 0.2 Aspartate Amino 20 Transf (AST/SGOT) Alanine 20 Aminotransferase (AL T/SGPT) Alkaline Phosphatase 58 Total Protein 6.1 Albumin 3.0 L Globulin 3.10 Albumin/Globulin 0.96 Ratio Home Meds Active Scripts Silver Sulfadiazine* (Silvadene*) 1% - 20 Gm Cream.gm., 1 APPLIC TOP DAILY, #1 TUB Prov:JESSIE WONG MD 06/12/18 Amoxicillin-Clavulanate K* (Augmentin*) 875 Mg Tab, 875 MG PO BID, #28 TAB Prov:AMDE,AMANDA MD 06/08/14 Reported Medications Insulin Aspart (Novolog Mix (70/30)) 100 Units/Ml Soln, 28 SC with diinner, VIAL 11/04/18 Insulin Aspart (Novolog Mix (70/30)) 100 Units/Ml Soln, 38 SC WITH BREAKFAST, VIAL 11/04/18 Benazepril Hcl* (Benazepril Hcl*) 40 Mg Tablet, 40 MG PO DAILY, #30 TAB 11/04/18 Ergocalciferol (Vitamin D2) (VITAMIN D2) 50,000 Unit Capsule, 53710 UNIT PO weekly for saturdays, CAP 11/04/18 Omeprazole* (Omeprazole*) 20 Mg Capsule.dr, 20 MG PO DAILY, #30 CAP 11/04/18 Aspirin* (Aspirin* EC) 81 Mg Tablet.dr, 81 MG PO DAILY, TAB 11/04/18 Gabapentin* (Gabapentin*) 300 Mg Capsule, 300 MG PO BID, #60 CAP 11/04/18 Nebivolol Hcl* (Bystolic*) 20 Mg Tablet, 20 MG PO DAILY, #30 TAB 11/04/18 Atorvastatin Calcium* (Atorvastatin Calcium*) 20 Mg Tablet, 20 MG PO QHS, #30 TAB 11/04/18 Sulfasalazine (Azulfidine) 500 Mg Tab, 1000 MG PO TID, TAB 06/02/14 Discontinued Reported Medications Simvastatin (Simvastatin) 40 Mg Tablet, 40 MG PO DAILY, TAB 06/02/14 Famotidine* (Pepcid*) Unknown Strength Tablet, PO DAILY, TAB 06/02/14 Hum Insulin Nph/Reg Insulin Hm (Humulin 70-30 Vial) 100 Units/Ml Vial, SQ SLIDING SCALE, VIAL 03/05/14 Benazepril Hcl* (Benazepril Hcl*) 20 Mg Tablet, 20 MG PO DAILY, TAB 03/05/14 Discontinued Scripts Hydrocodone Bit-Acetaminophen* (Mercer*) 5-325 Mg Tab, 1 TAB PO Q4H PRN for PAIN, #14 TAB Prov:ALESIA BREWER PA-C 12/17/14 Clindamycin Hcl* (Clindamycin Hcl*) 300 Mg Capsule, 300 MG PO Q8 for infection for 7 Days, CAP Prov:ALESIA BREWER PA-C 12/17/14 Acetaminophen* (Tylophen*) 500 Mg Capsule, 1 CAP PO Q6H PRN for PAIN AND OR ELEVATED TEMP, #20 CAP Prov:DESHAWN ATKINS 12/09/14 Sulfamethoxazole-Trimethoprim* (Bactrim* DS) 800-160 Mg Tab, 1 TAB PO BID for 5 Days, TAB Prov:KAROL FISHMAN PA-C 11/29/14 Sulfamethoxazole-Trimethoprim* (Bactrim* DS) 800-160 Mg Tab, 1 TAB PO BID for 10 Days, TAB Prov:EVERETT SCHWAB PA-C 11/13/14 Cephalexin* (Keflex*) 500 Mg Capsule, 500 MG PO QID for 7 Days, CAP Prov:EVERETT SCHWAB PA-C 11/13/14 Docusate Sodium* (Colace*) 100 Mg Cap, 100 MG PO BID, #60 Prov:AMANDA GOMEZ MD 06/08/14 Prednisone (Prednisone) 10 Mg Tab, 30 MG PO DAILY, #30 TAB Prov:AMANDA GOMEZ MD 06/08/14 Insulin Glargine* (Lantus*) 100 Unit/Ml Soln, 35 UNIT SC HS, #2 Prov:AMANDA GOMEZ MD 06/08/14 Medications Current Medications Atorvastatin Calcium (Lipitor) 20 mg QHS PO Last administered on 11/09/18at 20:51; Admin Dose 20 MG; Start 11/04/18 at 21:00 Ergocalciferol (Drisdol) 50,000 unit Sa PO Last administered on 11/09/18at 09:28; Admin Dose 50,000 UNIT; Start 11/09/18 at 09:00 Gabapentin (Neurontin) 300 mg BID PO Last administered on 11/09/18at 20:51; Admin Dose 300 MG; Start 11/04/18 at 09:00 Miscellaneous Medication (Bystolic) 20 mg DAILY PO Last administered on 11/09/18at 08:53; Admin Dose 20 MG; Start 11/04/18 at 09:00 Pantoprazole (Protonix Tab) 40 mg DAILY PO Last administered on 11/09/18at 08:54; Admin Dose 40 MG; Start 11/04/18 at 09:00 Clonidine (Catapres) 0.1 mg Q6H PRN PO SBP>160; Start 11/04/18 at 09:00 IV Flush (NS 3 ml) 3 ml PER PROTOCOL IV ; Start 11/04/18 at 09:00 Ondansetron HCl (Zofran Inj) 4 mg Q6H PRN IV NAUSEA/VOMITING; Start 11/04/18 at 09:00 Acetaminophen (Tylenol Tab) 650 mg Q6H PRN PO .PAIN 1-3 OR TEMP; Start 11/04/18 at 09:00 Acetaminophen/ Hydrocodone Bitart (Mercer (5/325)) 1 tab Q6H PRN PO .MOD PAIN 4- 6 Last administered on 11/09/18at 17:25; Admin Dose 1 TAB; Start 11/04/18 at 09:00 Docusate Sodium (Colace) 100 mg Q12H PRN PO .CONSTIPATION; Start 11/04/18 at 09:00 Heparin Sodium (Porcine) (Heparin (5000 Units/1ml)) 5,000 unit Q12 SC Last administered on 11/09/18at 21:27; Admin Dose 5,000 UNIT; Start 11/04/18 at 09:00 Miscellaneous Information 1 ea NOTE XX ; Start 11/04/18 at 09:00 Glucose (Glutose) 15 gm Q15M PRN PO DECREASED GLUCOSE; Start 11/04/18 at 09:00 Glucose (Glutose) 22.5 gm Q15M PRN PO DECREASED GLUCOSE; Start 11/04/18 at 09:00 Dextrose (D50w Syringe) 25 ml Q15M PRN IV DECREASED GLUCOSE; Start 11/04/18 at 09:00 Dextrose (D50w Syringe) 50 ml Q15M PRN IV DECREASED GLUCOSE; Start 11/04/18 at 09:00 Glucagon (Glucagen) 1 mg Q15M PRN IM DECREASED GLUCOSE; Start 11/04/18 at 09:00 Glucose (Glutose) 15 gm Q15M PRN BUCCAL DECREASED GLUCOSE; Start 11/04/18 at 09:00 Miscellaneous Information Patients own medicat... BID@ XX Last administ ered on 11/09/18at 16:00; Admin Dose 1 EA; Start 11/04/18 at 16:00 Povidone Iodine (Povidone-Iodine) 1 applic BID TOP Last administered on 11/09/18at 09:28; Admin Dose 1 APPLIC; Start 11/05/18 at 21:00 Hydralazine HCl (Apresoline) 100 mg TID PO Last administered on 11/09/18 20:51; Admin Dose 100 MG; Start 11/06/18 at 21:00 Diagnostic Test (Pha) (Accu-Chek) 1 ea 02 XX Last administered on 11/10/18 02:55; Admin Dose 1 EA; Start 11/07/18 at 02:00 Sodium Hypochlorite (Dakins Diluted ()) 1 applic BID TP Last administered on 11/09/18 23:16; Admin Dose 1 APPLIC; Start 11/07/18 at 09:00 Aspirin (Aspirin) 325 mg DAILY PO Last administered on 11/09/18 08:54; Admin Dose 325 MG; Start 11/07/18 at 11:00 Ceftriaxone Sodium 50 ml @ 100 mls/hr Q24H IVPB Last administered on 11/09/18 15:39; Admin Dose 100 MLS/HR; Start 11/07/18 at 14:30 Insulin Glargine (Lantus) 30 units DAILY@0800 SC Last administered on 11/09/18 09:30; Admin Dose 30 UNITS; Start 11/08/18 at 08:00 Hydralazine HCl (Apresoline) 10 mg Q4H PRN IV sbp >160 Last administered on 11/08/18 08:59; Admin Dose 10 MG; Start 11/08/18 at 09:00 Morphine Sulfate (morphine) 2 mg Q4H PRN IV SEVERE PAIN LEVEL 7-10 Last administered on 11/10/18 01:20; Admin Dose 2 MG; Start 11/08/18 at 09:00 Daptomycin 500 mg/ Sodium Chloride 100 ml @ 200 mls/hr Q24H IVPB Last administered on 11/09/18 17:28; Admin Dose 200 MLS/HR; Start 11/08/18 at 16:00 Lactated Ringer's 1,000 ml @ 125 mls/hr Q8H IV Last administered on 11/10/18 01:20; Admin Dose 125 MLS/HR; Start 11/08/18 at 15:30 Insulin Aspart (Novolog Insulin Pen) NOVOLOG *MILD* ALGORITHM WITH MEALS BEDTIME SC Last administered on 11/09/18 22:28; Admin Dose 2 UNIT; Start 6/ 22/19 at 07:35 Clopidogrel Bisulfate (plaVIX) 75 mg DAILY PO ; Start 11/10/18 at 08:00 Assessment/Plan Hospital Course (Demo Recall) 1. Nonoliguric acute kidney injury with baseline creatinine of 0.79 mg/dL. Etiology of acute kidney injury is secondary to hemodynamics, possible contrast associated nephropathy. The patient is improved with IV hydration. Continue current treatment plan, supportive care, renally dose all medications. - watch for diuretic phase of to with electrolyte wasting. - slight bump in cr improved this am. 2. Anemia. Monitor hemoglobin and hematocrit levels. 3. Mineral bone disorder. Monitor calcium and phosphorus levels. 4. Peripheral vascular disease. Continue to monitor. Follow up with surgery and podiatry. 5. Hypertension. Continue current blood pressure regimen. 6. Dyslipidemia. Continue statin therapy. 7. Neuropathy. Continue medical management. 8. Status post hyperkalemia. KINA MCNALLY MD Nov 10, 2018 08:14
[2018-11-10] MEDS: HEPARIN 5,000 UNIT/1 ML VIAL SC SCH ×2 (08:15→21:42)
[2018-11-10] MEDS: INSULIN GLARGINE [LANTus] (100 UNITS/ML) SYG SC SCH (08:15)
[2018-11-10] MEDS: CLOPIDOGREL 75 MG TAB PO SCH ×2 (08:21→08:25)
[2018-11-10] MEDS: POVIDONE IODINE 10% 28.4 GM OINT TOP SCH (08:21)
[2018-11-10] MEDS: NEBIVOLOL 5 MG TAB PO SCH (08:22)
[2018-11-10] MEDS: PANTOPRAZOLE (EC) 40 MG TAB PO SCH (08:25)
[2018-11-10] MEDS: GABAPENTIN 300 MG CAP PO SCH ×2 (08:26→20:56)
[2018-11-10] MEDS: ASPIRIN 325 MG TAB PO SCH (08:26)
[2018-11-10] MEDS: DAKINS 0.0125%(1/40) 473 ML SOLUTION TP SCH ×2 (08:27→21:28)
--- NOTE | 2018-11-10 10:40 | PN ---
Date/Time of Note Date/Time of Note DATE: 11/10/18 TIME: 10:36 Assessment/Plan Lines/Catheters IV Catheter Type (from Nrs): Peripheral IV Vora in Place (from Nrs): No Assessment/Plan Assessment/Plan Doing well s/p iliofemoral bypass, L fem-PT bypass Foot is well perfused Change dressings and SHANAE wraps Keep leg elevated ASA / Plavix OK for toe amputation from my standpoint Subjective 24 Hr Interval Summary No c/o. Exam/Review of Systems Vital Signs Vitals Vital Signs Date Temp Pulse Resp B/P (MAP) Pulse Ox O2 O2 Flow FiO2 Time Delivery Rate 11/10/18 99 08:00 11/10/18 100.0 18 109/54 97 07:40 (72) 11/10/18 4.0 06:18 11/09/18 Room Air 20:43 11/09/18 41 05:48 Intake and Output 11/09/18 11/09/18 11/10/18 1515:00 23:00 07:00 IntakeIntake Total 1480 ml 525 ml 1450 ml OutputOutput Total 400 ml BalanceBalance 1080 ml 525 ml 1450 ml Exam Free Text/Dictation L leg incisions - some staining on the dressings but no bleeding or drainage, no hematoma 3+ graft pulse, foot is warm and hyperemic 5th toe dry gangrene Leg and foot are edematous Results Result Diagram: 11/10/18 0542 11/10/18 0542 KLEVER FOREMAN MD Nov 10, 2018 10:40
--- NOTE | 2018-11-10 11:02 | PN ---
Date/Time of Note Date/Time of Note DATE: 11/10/18 TIME: 11:01 Objective Vitals Vital Signs Date Temp Pulse Resp B/P (MAP) Pulse Ox O2 O2 Flow FiO2 Time Delivery Rate 11/10/18 99 08:00 11/10/18 100.0 18 109/54 97 07:40 (72) 11/10/18 4.0 06:18 11/09/18 Room Air 20:43 11/09/18 41 05:48 Intake and Output 11/09/18 11/09/18 11/10/18 1515:00 23:00 07:00 IntakeIntake Total 1480 ml 525 ml 1450 ml OutputOutput Total 400 ml BalanceBalance 1080 ml 525 ml 1450 ml Results Result Diagram: 11/10/1842 11/10/18541 Medications Medications Current Medications Atorvastatin Calcium (Lipitor) 20 mg QHS PO Last administered on 11/09/18at 20:51; Admin Dose 20 MG; Start 11/04/18 at 21:00 Ergocalciferol (Drisdol) 50,000 unit Sa PO Last administered on 11/09/18at 09:28; Admin Dose 50,000 UNIT; Start 11/09/18 at 09:00 Gabapentin (Neurontin) 300 mg BID PO Last administered on 11/10/18at 08:26; Admin Dose 300 MG; Start 11/04/18 at 09:00 Miscellaneous Medication (Bystolic) 20 mg DAILY PO Last administered on 11/10/18at 08:22; Admin Dose 20 MG; Start 11/04/18 at 09:00 Pantoprazole (Protonix Tab) 40 mg DAILY PO Last administered on 11/10/18at 08:25; Admin Dose 40 MG; Start 11/04/18 at 09:00 Clonidine (Catapres) 0.1 mg Q6H PRN PO SBP>160; Start 11/04/18 at 09:00 IV Flush (NS 3 ml) 3 ml PER PROTOCOL IV ; Start 11/04/18 at 09:00 Ondansetron HCl (Zofran Inj) 4 mg Q6H PRN IV NAUSEA/VOMITING; Start 11/04/18 at 09:00 Acetaminophen (Tylenol Tab) 650 mg Q6H PRN PO .PAIN 1-3 OR TEMP; Start 11/04/18 at 09:00 Acetaminophen/ Hydrocodone Bitart ([place] (5/325)) 1 tab Q6H PRN PO .MOD PAIN 4- 6 Last administered on 11/09/18at 17:25; Admin Dose 1 TAB; Start 11/04/18 at 09:00 Docusate Sodium (Colace) 100 mg Q12H PRN PO .CONSTIPATION; Start 11/04/18 at 09:00 Heparin Sodium (Porcine) (Heparin (5000 Units/1ml)) 5,000 unit Q12 SC Last administered on 11/10/18at 08:15; Admin Dose 5,000 UNIT; Start 11/04/18 at 09:00 Miscellaneous Information 1 ea NOTE XX ; Start 11/04/18 at 09:00 Glucose (Glutose) 15 gm Q15M PRN PO DECREASED GLUCOSE; Start 11/04/18 at 09:00 Glucose (Glutose) 22.5 gm Q15M PRN PO DECREASED GLUCOSE; Start 11/04/18 at 09:00 Dextrose (D50w Syringe) 25 ml Q15M PRN IV DECREASED GLUCOSE; Start 11/04/18 at 09:00 Dextrose (D50w Syringe) 50 ml Q15M PRN IV DECREASED GLUCOSE; Start 11/04/18 at 09:00 Glucagon (Glucagen) 1 mg Q15M PRN IM DECREASED GLUCOSE; Start 11/04/18 at 09:00 Glucose (Glutose) 15 gm Q15M PRN BUCCAL DECREASED GLUCOSE; Start 11/04/18 at 09:00 Miscellaneous Information Patients own medicat... BID@10,16 XX Last administered on 11/10/18at 10:24; Admin Dose 1 EA; Start 11/04/18 at 16:00 Povidone Iodine (Povidone-Iodine) 1 applic BID TOP Last administered on 11/10/18at 08:21; Admin Dose 1 APPLIC; Start 11/05/18 at 21:00 Hydralazine HCl (Apresoline) 100 mg TID PO Last administered on 11/10/18at 08:26; Admin Dose 100 MG; Start 11/06/18 at 21:00 Diagnostic Test (Pha) (Accu-Chek) 1 ea 02 XX Last administered on 11/10/18at 02:55; Admin Dose 1 EA; Start 11/07/18 at 02:00 Sodium Hypochlorite (Dakins Diluted ()) 1 applic BID TP Last administered o n 11/10/18 08:27; Admin Dose 1 APPLIC; Start 11/07/18 at 09:00 Aspirin (Aspirin) 325 mg DAILY PO Last administered on 11/10/18 08:26; Admin Dose 325 MG; Start 11/07/18 at 11:00 Ceftriaxone Sodium 50 ml @ 100 mls/hr Q24H IVPB Last administered on 11/09/18 15:39; Admin Dose 100 MLS/HR; Start 11/07/18 at 14:30 Insulin Glargine (Lantus) 30 units DAILY@0800 SC Last administered on 11/10/18 08:15; Admin Dose 30 UNITS; Start 11/08/18 at 08:00 Hydralazine HCl (Apresoline) 10 mg Q4H PRN IV sbp >160 Last administered on 11/08/18 08:59; Admin Dose 10 MG; Start 11/08/18 at 09:00 Morphine Sulfate (morphine) 2 mg Q4H PRN IV SEVERE PAIN LEVEL 7-10 Last administered on 11/10/18 01:20; Admin Dose 2 MG; Start 11/08/18 at 09:00 Daptomycin 500 mg/ Sodium Chloride 100 ml @ 200 mls/hr Q24H IVPB Last administered on 11/09/18 17:28; Admin Dose 200 MLS/HR; Start 11/08/18 at 16:00 Lactated Ringer's 1,000 ml @ 125 mls/hr Q8H IV Last administered on 11/10/18 01:20; Admin Dose 125 MLS/HR; Start 11/08/18 at 15:30 Insulin Aspart (Novolog Insulin Pen) NOVOLOG *MILD* ALGORITHM WITH MEALS BEDTIME SC Last administered on 11/10/18 08:06; Admin Dose 2 UNIT; Start 11/09/18 at 07:35 Clopidogrel Bisulfate (plaVIX) 75 mg DAILY PO Last administered on 11/10/18 08:25; Admin Dose 75 MG; Start 11/10/18 at 08:00 Insulin Aspart (Novolog Insulin Pen) 4 unit WITH MEALS SC ; Start 11/10/18 at 11:50 VTE Prophylaxis Risk score (from Nsg)>0 risk: 14 SCD applied (from Nsg): No SCD contraindication: other Lines/Catheters IV Catheter Type: Vora in Place: No Assessment/Plan Hospital Course Subjective Patient has no acute complaints at this time, doing well. Objective Physical exam General: Patient is laying in bed and answers questions appropriately Mentation: Patient is alert and oriented 4, Head: Normocephalic atraumatic Eyes: EOMI, pupils reactive to light Neck: Supple, nontender, midline Respiratory: Clear to auscultation bilaterally Cardiovascular: regular rate, no obvious murmurs Gastrointestinal: non-tender to palpation, bowel sounds heard. Neurological: Moves all extremities spontaneously Skin: No new skin lesions, surgical site clean, bandaged, dry, intact ASSESSMENT AND PLAN:72 yo M w/htn, dm2, right 2nd toe amputation, neuropathy ,dlp, PAD, left 5th toe ulcer here w/worsening left 5th toe gangrenosus ulcer.. left fifth toe gangrenous ulcer -Patient status post left femoral endarterectomy, iliofemoral bypass and femoral to posterior tibial bypass done on November 08, 2018 -Continue IV antimicrobials and follow-up cultures. -Wound care -Glycemic management -Follow-up vascular/podiatry recommendations Severe peripheral vascular disease -Status post aortogram and plan for Fem-tibial bypass today -Vascular surgery recommendations appreciated Poorly controlled DMII -improving -Basal/bolus insulin-titrate per need Acute kidney injury -Renal function worsened today likely secondary to contrast-induced nephropathy. -Follow-up nephrology recommendations and monitor renal function closely. Hyperkalemia -Continue holding SHANAE inhibitors. -Kayexalate as needed Essential HTN -Continue bb/hydralazine -PRN clonidine Peripheral neuropathy -cont. gabapentin Dyslipidemia -cont. statin Chronic anemia -Stable H&H. Monitor DVT prophylaxis: Heparin when okay with vascular surgeon PUD prophylaxis: PPI Disposition: -Plan is for podiatry to have surgery for necrotic toe sometime this upcoming week. FRANTZ SCHWAB Nov 10, 2018 11:02
[2018-11-10] MEDS: CEFTRIAXONE 1 GM/50 ML (PMX) 50 ML IVPB SCH (13:36)
[2018-11-10] MEDS: DAPTOMYCIN 500 MG in SOD CHLORIDE 0.9% 100 ML IVPB SCH (15:33)
[2018-11-10] MEDS: HYDROCODONE/APAP (5/325) TAB PO PRN (17:11)
--- NOTE | 2018-11-10 19:35 | CONS ---
Assessment/Plan Assessment/Plan Hospital Course (Demo Recall) ID PROGRESS NOTE CURRENT ABX: DAY # =>Daptomycin + Ceftriaxone 24H INTERVAL SUMMARY * POD #2-> S/P 11/08/18 Left femoral endarterectomy w/Left iliofemoral bypass, and Left femoral->posterior tibial bypass * PREOPERATIVE DIAGNOSIS: Left fifth toe gangrene. * POSTOPERATIVE DIAGNOSIS: Left fifth toe gangrene. * Doing well post operatively w/rise in WBC POD #2 not unusual * S.Creatinine improved s/p "NAVID" * VSS, NAD, TMAX 100.+ * Microbiology: Cultures negative DIAGNOSTIC IMAGING * 11/08/18 CXR: Worsening diffuse bilateral reticular nodular infiltrates. PHYSICAL EXAMINATION: GENERAL: VSS, NAD HEENT: AT, NC, NECK: Supple, CHEST: Rise symmetrical HEART: Pulse RRR ABDOMEN: Benign EXTREMITIES: Warm, dry == left foot DSG C/D/I SKIN: No rash, no diaphoresis ID ASSESSMENT 72 yo M admit with: 1. Left foot gangrene 2. Peripheral arterial disease * POD #2-> S/P 11/08/18 Left femoral endarterectomy w/Left iliofemoral bypass, and Left femoral->posterior tibial bypass 3. Diffuse pulmonary infiltrates == DDx CHF (STG I diastolic HF) w/possible superimposed HCAP 4. Hypertension w/HTN heart disease 5. Diabetes w/complications of peripheral neuropathy, vasculopathy 6. History of left foot second toe amputation 7. Acute kidney injury due to "NAVID" contrast induced necropathy post angiogram (-)MRSA Nares ABX ALLERGIES: KNDA INVASIVES: PIV CURRENT ABX: DAY # => Daptomycin + Ceftriaxone ID RECOMMENDATIONS/PLAN: 1. Continue current ABX -- If high suspicion for HCAP may need to broaden cov erage as Dapto will not treat PNA 2. Per daughter plan is for further surgical intervention left foot gangrene future. . Consultation Date/Type/Reason Admit Date/Time Nov 04, 2018 at 07:34 Initial Consult Date Requesting Provider: KARLA LAIRD NP Date/Time of Note DATE: 11/10/18 TIME: 19:28 Exam/Review of Systems Exam Vitals Vital Signs Date Temp Pulse Resp B/P (MAP) Pulse Ox O2 O2 Flow FiO2 Time Delivery Rate 11/10/18 97.9 74 20 116/57 97 16:18 (76) 11/10/18 Nasal 3.0 07:40 Cannula 11/09/18 41 05:48 Intake and Output 11/09/18 11/09/18 11/10/18 1515:00 23:00 07:00 IntakeIntake Total 1480 ml 525 ml 1450 ml OutputOutput Total 400 ml BalanceBalance 1080 ml 525 ml 1450 ml Results Result Diagram: 11/10/18 0542 11/10/18 0542 Results 24hrs Laboratory Tests Test 11/09/18 20:50 11/09/18 22:21 11/10/18 02:50 11/10/18 05:42 Bedside Glucose 268 H 256 H 206 White Blood Count 11.5 #H Red Blood Count 2.66 L Hemoglobin 8.1 L Hematocrit 26.1 L Mean Corpuscular 98.1 Volume Mean Corpuscular 30.5 Hemoglobin Mean Corpuscular 31.0 L Hemoglobin Concent Red Cell 13.3 Distribution Width Platelet Count 169 Mean Platelet Volume 10.6 H Immature 0.700 H Granulocytes % Neutrophils % 81.2 H Lymphocytes % 8.6 L Monocytes % 8.4 Eosinophils % 0.8 Basophils % 0.3 Nucleated Red Blood 0.0 Cells % Immature 0.080 H Granulocytes # Neutrophils # 9.3 H Lymphocytes # 1.0 Monocytes # 1.0 H Eosinophils # 0.1 Basophils # 0.0 Nucleated Red Blood 0.0 Cells # Sodium Level 132 L Potassium Level 5.1 Chloride Level 104 Carbon Dioxide Level 22 Anion Gap 6 Blood Urea Nitrogen 25 H Creatinine 1.28 H Est Glomerular Filtrat Rate mL/min Glucose Level 205 Calcium Level 7.9 L Phosphorus Level 2.0 L Magnesium Level 1.7 Total Bilirubin 0.2 Direct Bilirubin 0.00 Indirect Bilirubin 0.2 Aspartate Amino 20 Transf (AST/SGOT) Alanine 20 Aminotransferase (AL T/SGPT) Alkaline Phosphatase 58 Total Protein 6.1 Albumin 3.0 L Globulin 3.10 Albumin/Globulin 0.96 Ratio Test 11/10/18 08:00 11/10/18 17:13 Bedside Glucose 216 201 Medications Medication Current Medications Atorvastatin Calcium (Lipitor) 20 mg QHS PO Last administered on 11/09/18at 20:51; Admin Dose 20 MG; Start 11/04/18 at 21:00 Ergocalciferol (Drisdol) 50,000 unit Sa PO Last administered on 11/09/18at 09:28; Admin Dose 50,000 UNIT; Start 11/09/18 at 09:00 Gabapentin (Neurontin) 300 mg BID PO Last administered on 11/10/18at 08:26; Admin Dose 300 MG; Start 11/04/18 at 09:00 Miscellaneous Medication (Bystolic) 20 mg DAILY PO Last administered on 11/10/18 08:22; Admin Dose 20 MG; Start 11/04/18 at 09:00 Pantoprazole (Protonix Tab) 40 mg DAILY PO Last administered on 11/10/18at 08:25; Admin Dose 40 MG; Start 11/04/18 at 09:00 Clonidine (Catapres) 0.1 mg Q6H PRN PO SBP>160; Start 11/04/18 at 09:00 IV Flush (NS 3 ml) 3 ml PER PROTOCOL IV ; Start 11/04/18 at 09:00 Ondansetron HCl (Zofran Inj) 4 mg Q6H PRN IV NAUSEA/VOMITING; Start 11/04/18 at 09:00 Acetaminophen (Tylenol Tab) 650 mg Q6H PRN PO .PAIN 1-3 OR TEMP; Start 11/04/18 at 09:00 Acetaminophen/ Hydrocodone Bitart ([place] (5/325)) 1 tab Q6H PRN PO .MOD PAIN 4- 6 Last administered on 11/10/18at 17:11; Admin Dose 1 TAB; Start 11/04/18 at 09:00 Docusate Sodium (Colace) 100 mg Q12H PRN PO .CONSTIPATION; Start 11/04/18 at 09:00 Heparin Sodium (Porcine) (Heparin (5000 Units/1ml)) 5,000 unit Q12 SC Last administered on 11/10/18at 08:15; Admin Dose 5,000 UNIT; Start 11/04/18 at 09:00 Miscellaneous Information 1 ea NOTE XX ; Start 11/04/18 at 09:00 Glucose (Glutose) 15 gm Q15M PRN PO DECREASED GLUCOSE; Start 11/04/18 at 09:00 Glucose (Glutose) 22.5 gm Q15M PRN PO DECREASED GLUCOSE; Start 11/04/18 at 09:00 Dextrose (D50w Syringe) 25 ml Q15M PRN IV DECREASED GLUCOSE; Start 11/04/18 at 09:00 Dextrose (D50w Syringe) 50 ml Q15M PRN IV DECREASED GLUCOSE; Start 11/04/18 at 09:00 Glucagon (Glucagen) 1 mg Q15M PRN IM DECREASED GLUCOSE; Start 11/04/18 at 09:00 Glucose (Glutose) 15 gm Q15M PRN BUCCAL DECREASED GLUCOSE; Start 11/04/18 at 09:00 Miscellaneous Information Patients own medicat... BID@10,16 XX Last administered on 11/10/18 15:28; Admin Dose 1 EA; Start 11/04/18 at 16:00 Povidone Iodine (Povidone-Iodine) 1 applic BID TOP Last administered on 11/10/18 08:21; Admin Dose 1 APPLIC; Start 11/05/18 at 21:00 Hydralazine HCl (Apresoline) 100 mg TID PO Last administered on 11/10/18 13:36; Admin Dose 100 MG; Start 11/06/18 at 21:00 Diagnostic Test (Pha) (Accu-Chek) 1 ea 02 XX Last administered on 11/10/18 02:55; Admin Dose 1 EA; Start 11/07/18 at 02:00 Sodium Hypochlorite (Dakins Diluted (40)) 1 applic BID TP Last administered on 11/10/18 08:27; Admin Dose 1 APPLIC; Start 11/07/18 at 09:00 Aspirin (Aspirin) 325 mg DAILY PO Last administered on 11/10/18 08:26; Admin Dose 325 MG; Start 11/07/18 at 11:00 Ceftriaxone Sodium 50 ml @ 100 mls/hr Q24H IVPB Last administered on 11/10/18 13:36; Admin Dose 100 MLS/HR; Start 11/07/18 at 14:30 Insulin Glargine (Lantus) 30 units DAILY@0800 SC Last administered on 11/10/18 08:15; Admin Dose 30 UNITS; Start 11/08/18 at 08:00 Hydralazine HCl (Apresoline) 10 mg Q4H PRN IV sbp >160 Last administered on 11/08/18 08:59; Admin Dose 10 MG; Start 11/08/18 at 09:00 Morphine Sulfate (morphine) 2 mg Q4H PRN IV SEVERE PAIN LEVEL 7-10 Last administered on 11/10/18 01:20; Admin Dose 2 MG; Start 11/08/18 at 09:00 Daptomycin 500 mg/ Sodium Chloride 100 ml @ 200 mls/hr Q24H IVPB Last administered on 11/10/18 15:33; Admin Dose 200 MLS/HR; Start 11/08/18 at 16:00 Lactated Ringer's 1,000 ml @ 125 mls/hr Q8H IV Last administered on 11/10/18 01:20; Admin Dose 125 MLS/HR; Start 11/08/18 at 15:30 Insulin Aspart (Novolog Insulin Pen) NOVOLOG *MILD* ALGORITHM WITH MEALS BEDTIME SC Last administered on 11/10/18 17:34; Admin Dose 2 UNIT; Start 11/09/18 at 07:35 Clopidogrel Bisulfate (plaVIX) 75 mg DAILY PO Last administered on 11/10/18 08:25; Admin Dose 75 MG; Start 11/10/18 at 08:00 Insulin Aspart (Novolog Insulin Pen) 4 unit WITH MEALS SC Last administered on 11/10/18 17:33; Admin Dose 4 UNIT; Start 11/10/18 at 11:50 NESS MUNOZ NP Nov 10, 2018 19:35
[2018-11-10] MEDS: ATORVASTATIN 20 MG TAB PO SCH (20:56)
[2018-11-11] VITALS (88 sets, daily range): BP systolic 101–155; BP diastolic 51–119; PULSE 54–110; RESP 4–23
[2018-11-11] MEDS: POVIDONE IODINE 10% 28.4 GM OINT TOP SCH ×3 (00:35→21:09)
[2018-11-11] MEDS: ACCUCHECK AT 2AM (Patients on SS coverage) XX SCH (02:00)
--- NOTE | 2018-11-11 04:30 | EN ---
Date/Time of Note Date/Time of Note DATE: 11/11/18 TIME: 04:28 ER Progress Note CODE BLUE. CODE BLUE was called. Telemetry nurse states the patient's heart rate bradycardia to the 40s and 20s then when they checked on the patient he was asystolic and was PEA. On my arrival the patient had been getting CPR and had been given 1 mg of epinephrine. Heart rate on the monitor was 170s and pulse check revealed a positive pulse. The patient had agonal respirations and I intubated him. Endotracheal Intubation by me: Pre assessment performed. See preceding note for details. Pre-oxygenation performed with 100% oxygen RSI: Performed w/o complication or hypoxic events. Medications as ordered. Blade: MAC for ET Tube: 7.5 cm Depth: 22 cm at the lip Intubation confirmed by colorimetric CO2, equal breath sounds, quiet over the stomach. Dr. perry is present in the room and he will take over the patient's care from this point on EVELIN IRENE DO Nov 11, 2018 04:30
[2018-11-11] MEDS ORDERED: PROPOFOL 100 ML ONE (04:47)
[2018-11-11] MEDS ORDERED: PROPOFOL 100 ML IV SCH (05:00)
[2018-11-11] MEDS: LACTATED RINGER'S 1,000 ML IV SCH (05:51)
--- NOTE | 2018-11-11 07:55 | PN ---
Date/Time of Note Date/Time of Note DATE: 11/11/18 TIME: 07:50 Assessment/Plan Lines/Catheters IV Catheter Type (from Nrsg): Peripheral IV Vora in Place (from Nrsg): No Assessment/Plan Assessment/Plan Bradycardia and respiratory arrest overnight - likely a cardiac issue, EKG and troponin pending - Dr. Em to followup this AM, no very stable on no pressors I highly doubt PE - he was heparinized in the OR and postop and was ambulating yesterday with PT ON ASA and Plavix, OK to start heparin drip if needed Bypass graft is patent with good pedal perfusion, strong graft pulse in the calf Subjective 24 Hr Interval Summary He became bradycardic overnight and had a respiratory arrest, intubated and transferred to ICU. Now stable on no drips.Intubated and sedated. Responding appropriately. Exam/Review of Systems Vital Signs Vitals Vital Signs Date Temp Pulse Resp B/P (MAP) Pulse Ox O2 O2 Flow FiO2 Time Delivery Rate 11/11/18 90 21 154/78 98 Mechanical 06:45 (103) Ventilator 11/11/18 100 04:49 11/11/18 97.7 04:45 11/10/18 3.0 20:00 Intake and Output 11/10/18 11/10/18 11/11/18 1515:00 23:00 07:00 IntakeIntake Total 650 ml 380.11 ml OutputOutput Total 0 ml BalanceBalance 650 ml 380.11 ml Exam Free Text/Dictation L foot warm and pink, 2+ graft pulse, incisions are all clean and dry, mild edema throughout the leg - normal postop Results Result Diagram: 11/11/18 0532 11/11/18 0532 KLEVER FOREMAN MD Nov 11, 2018 07:55
[2018-11-11] MEDS ORDERED: SOD CHLORIDE 0.9% 1,000 ML IV SCH (08:00)
--- NOTE | 2018-11-11 08:13 | PN ---
DATE: 11/11/2018 SUBJECTIVE: Overnight, the patient had cardiac arrest. The patient had CPR, was given 1 dose of epi nephrine with return of circulation. Currently, patient is intubated on full ventilatory support. U rinary output has been marginal. No other events noted. OBJECTIVE: VITAL SIGNS: Blood pressure is 154/78, respirations 21, pulse 90, temperature 98.6. HEENT: Head is normocephalic. NECK: Supple. HEART: Regular rate. LUNGS: Show diminished breath sounds at the base. ABDOMEN: Soft, nontender to palpation without rebound or guarding. EXTREMITIES: Negative for clubbing, cyanosis. Trace edema. DERMATOLOGIC: No rashes. MUSCULOSKELETAL: No joint effusions. NEUROLOGIC: No change in exam. MEDICATIONS: Reviewed. LABORATORY DATA: Has been reviewed. IMAGING STUDIES: Have been reviewed. ASSESSMENT AND PLAN: 1. Oliguric acute kidney injury with previous baseline creatinine around 1.0 mg/dL. Etiology of acu te kidney injury was initially felt to be secondary to hemodynamics, possible contrast-associated nep hropathy. The possibility of tubular injury secondary to cardiac arrest is now a consideration. At this point, will continue current treatment plan, supportive care, renally dose all meds. Monitor ur inary output and renal function closely. 2. Anemia. Continue to monitor hemoglobin and hematocrit levels. 3. Mineral bone disorder, monitor calcium and phosphorus levels. 4. Cardiac arrest. Etiology is unclear, questionable cardiac, respiratory. The patient is currentl y intubated. Continue to monitor. Follow up with Cardiology. 5. Ventilator-dependent respiratory failure. Vent settings have been reviewed. Continue to monitor . Follow up with pulmonary. 6. Peripheral vascular disease. The patient is status post left femoral endarterectomy, iliofemoral bypass and femoral to posterior tibial bypass. Continue to monitor closely. Continue local wound c are. Follow up with vascular surgery. 7. Hypertension. Continue to monitor. 8. Dyslipidemia. Continue statin therapy. 9. Neuropathy. Continue medical management. 10. Status post hyperkalemia. 11. Systemic inflammatory response syndrome, possible sepsis. Continue current antibiotic regimen. Please note I spent over 30 minutes of critical care time with this patient. Dictated By: JEAN CLAUDE RUFFIN/BOBO Conf#: [id number] DID#: [id number] CC: TOMASA SCOTT;*EndCC*
[2018-11-11] MEDS ORDERED: HEPARIN 1000 UNITS/ML 10 ML INJ IV PRN ×2 (09:00)
[2018-11-11] MEDS ORDERED: HEPARIN 1000 UNITS/ML 10 ML INJ IV ONE (09:00)
[2018-11-11] MEDS: CLOPIDOGREL 75 MG TAB PO SCH (09:02)
[2018-11-11] MEDS: GABAPENTIN 300 MG CAP PO SCH ×2 (09:02→21:06)
[2018-11-11] MEDS: NEBIVOLOL 5 MG TAB PO SCH (09:03)
[2018-11-11] MEDS: ASPIRIN 325 MG TAB PO SCH (09:03)
[2018-11-11] MEDS: INSULIN GLARGINE [LANTus] (100 UNITS/ML) SYG SC SCH (09:05)
[2018-11-11] MEDS: INSULIN ASPART [NOVOLOG] 3 ML PEN SC SCH ×4 (09:09→21:10)
[2018-11-11] MEDS: HEPARIN 25000 UNITS/250 ML 250 ML IV SCH ×2 (09:19→19:31)
[2018-11-11] MEDS ORDERED: MAGNESIUM SULFATE 2 GM/50 ML 50 ML IVPB ONE (09:30)
[2018-11-11] MEDS ORDERED: FUROSEMIDE 40 MG INJ IV ONE (09:30)
[2018-11-11] MEDS: FAMOTIDINE 20 MG TAB NGT SCH (10:59)
--- NOTE | 2018-11-11 11:08 | CONS ---
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 Will hold off on foot debridement and 5th digit amputation/possible partial ray resection until medically stable. Appreciate vascular surgery input. Continue with IV abx per recommendations. Continue with dressing changes to the left foot and offload with pillows to prevent heel ulcerations. Wound cultures pending. Tight glycemic control. Consultation Date/Type/Reason Admit Date/Time Nov 04, 2018 at 07:34 Initial Consult Date Requesting Provider: KARLA LAIRD NP Date/Time of Note DATE: 11/11/18 TIME: 11:08 24 HR Interval Summary Free Text/Dictation Patient had a code blue called, became bradycardic. Subsequently was intubated and transferred to the ICU Exam/Review of Systems Exam Vitals Vital Signs Date Temp Pulse Resp B/P (MAP) Pulse Ox O2 O2 Flow FiO2 Time Delivery Rate 11/11/18 75 21 96 100 09:40 11/11/18 154/78 Mechanical 06:45 (103) Ventilator 11/11/18 97.7 04:45 11/10/18 3.0 20:00 Intake and Output 11/10/18 11/10/18 11/11/18 1515:00 23:00 07:00 IntakeIntake Total 650 ml 380.11 ml OutputOutput Total 0 ml BalanceBalance 650 ml 380.11 ml Exam Dressings to vascular bypass site Absent protective sensations Left foot 5th digit gangrene with exposed bone, mild erythema surrounding ulcer site and mild purulence appreciated to the ulcer site. Measured 2 x 1.5 x 0.5cm fibronecrotic wound bed. No proximal streaking Left hallux 0.5 x 0.6 x 0.2cm granular ulcer, no purulence, does not probe to bone. Left 2nd digit amputation site appreciated. Results Result Diagram: 11/11/18 0532 11/11/18 0532 Results 24hrs Laboratory Tests Test 11/10/18 12:22 11/10/18 17:13 11/10/18 20:55 11/11/18 03:10 Bedside Glucose 216 201 213 236 H Test 6/24/19 04:14 11/11/18 05:32 11/11/18 05:33 11/11/18 07:23 Bedside Glucose 221 H White Blood Count 12.1 H Red Blood Count 2.58 L Hemoglobin 7.9 L Hematocrit 25.8 L Mean Corpuscular 100.0 Volume Mean Corpuscular 30.6 Hemoglobin Mean Corpuscular 30.6 L Hemoglobin Concen t Red Cell 13.3 Distribution Width Platelet Count 164 Mean Platelet 10.9 H Volume Immature 1.200 H Granulocytes % Neutrophils % 84.0 H Lymphocytes % 5.5 L Monocytes % 7.8 Eosinophils % 1.2 Basophils % 0.3 Nucleated Red 0.0 Blood Cells % Immature 0.140 H Granulocytes # Neutrophils # 10.1 H Lymphocytes # 0.7 L Monocytes # 0.9 Eosinophils # 0.1 Basophils # 0.0 Nucleated Red 0.0 Blood Cells # Sodium Level 134 L Potassium Level 5.0 Chloride Level 103 Carbon Dioxide 21 Level Anion Gap 10 Blood Urea 32 H Nitrogen Creatinine 1.44 H Est Glomerular Filtrat Rate mL/min Glucose Level 237 H Calcium Level 7.9 L Phosphorus Level 2.9 Magnesium Level 1.7 Prothrombin Time 13.6 Prothrombin Time 1.1 Ratio INR International 1.03 Normalized Ratio Activated 36.3 H Partial Thrombopl ast Time D-Dimer > 58379.00 H Troponin I 0.189 *H Blood Gas Blood arterial Specimen Source Arterial Blood 11/11/2018 7:59:3 Date Drawn 7 AM Arterial Blood pH 7.319 L (Temp corrected) Arterial Blood 41.4 pCO2 (Temp correct) Arterial Blood 81.8 pO2 (Temp corrected) Arterial Blood 20.8 L HCO3 Arterial Blood -4.9 L Base Excess Arterial Blood 94.7 L Oxygen Saturation Jeison Test ACCEPTAB Arterial Blood Right Radial Gas Puncture Site Arterial 0.3 Blood Carboxyhemo globin Arterial Blood 0.3 Methemoglobin Blood Gas A-a O2 589.8 H Differential Oxyhemoglobin 94.1 Percent Blood Gas 37.0 Temperature Blood Gas 16.0 Respiration Rate Blood Gas Actual 21 Respiration Rate Blood Gas VENT - AC Modality FiO2 100.0 Blood Gas Tidal 500.0 Volume Blood Gas Low 5.0 PEEP Setting Blood Gas TM Notified Whom Blood Gas 11/11/2018 8:09:3 Notified Time 4 AM Test 11/11/18 08:41 Bedside Glucose 249 H Medications Medication Current Medications Atorvastatin Calcium (Lipitor) 20 mg QHS PO Last administered on 11/10/18at 20:56; Admin Dose 20 MG; Start 11/04/18 at 21:00 Ergocalciferol (Drisdol) 50,000 unit Sa PO Last administered on 11/09/18at 09: 28; Admin Dose 50,000 UNIT; Start 11/09/18 at 09:00 Gabapentin (Neurontin) 300 mg BID PO Last administered on 11/11/18at 09:02; Admin Dose 300 MG; Start 11/04/18 at 09:00 Miscellaneous Medication (Bystolic) 20 mg DAILY PO Last administered on 11/11/18at 09:03; Admin Dose 20 MG; Start 11/04/18 at 09:00 Clonidine (Catapres) 0.1 mg Q6H PRN PO SBP>160; Start 11/04/18 at 09:00 IV Flush (NS 3 ml) 3 ml PER PROTOCOL IV ; Start 11/04/18 at 09:00 Ondansetron HCl (Zofran Inj) 4 mg Q6H PRN IV NAUSEA/VOMITING; Start 11/04/18 at 09:00 Acetaminophen (Tylenol Tab) 650 mg Q6H PRN PO .PAIN 1-3 OR TEMP; Start 11/04/18 at 09:00 Acetaminophen/ Hydrocodone Bitart ([place] (5/325)) 1 tab Q6H PRN PO .MOD PAIN 4-6 Last administered on 11/10/18at 17:11; Admin Dose 1 TAB; Start 11/04/18 at 09:00 Docusate Sodium (Colace) 100 mg Q12H PRN PO .CONSTIPATION; Start 11/04/18 at 09:00 Miscellaneous Information 1 ea NOTE XX ; Start 11/04/18 at 09:00 Glucose (Glutose) 15 gm Q15M PRN PO DECREASED GLUCOSE; Start 11/04/18 at 09:00 Glucose (Glutose) 22.5 gm Q15M PRN PO DECREASED GLUCOSE; Start 11/04/18 at 09:00 Dextrose (D50w Syringe) 25 ml Q15M PRN IV DECREASED GLUCOSE; Start 11/04/18 at 09:00 Dextrose (D50w Syringe) 50 ml Q15M PRN IV DECREASED GLUCOSE; Start 11/04/18 at 09:00 Glucagon (Glucagen) 1 mg Q15M PRN IM DECREASED GLUCOSE; Start 11/04/18 at 09:00 Glucose (Glutose) 15 gm Q15M PRN BUCCAL DECREASED GLUCOSE; Start 11/04/18 at 09:00 Miscellaneous Information Patients own medicat... BID@10,16 XX Last ad ministered on 11/10/18 15:28; Admin Dose 1 EA; Start 11/04/18 at 16:00 Povidone Iodine (Povidone-Iodine) 1 applic BID TOP Last administered on 11/11/18 09:04; Admin Dose 1 APPLIC; Start 11/05/18 at 21:00 Hydralazine HCl (Apresoline) 100 mg TID PO Last administered on 11/11/18 09:01; Admin Dose 100 MG; Start 11/06/18 at 21:00 Diagnostic Test (Pha) (Accu-Chek) 1 ea 02 XX Last administered on 11/11/18 02:00; Admin Dose 1 EA; Start 11/07/18 at 02:00 Sodium Hypochlorite (Dakins Diluted (1/40)) 1 applic BID TP Last administered on 11/10/18 21:28; Admin Dose 1 APPLIC; Start 11/07/18 at 09:00 Aspirin (Aspirin) 325 mg DAILY PO Last administered on 11/11/18 09:03; Admin Dose 325 MG; Start 11/07/18 at 11:00 Insulin Glargine (Lantus) 30 units DAILY@0800 SC Last administered on 11/11/18 09:05; Admin Dose 30 UNITS; Start 11/08/18 at 08:00 Hydralazine HCl (Apresoline) 10 mg Q4H PRN IV sbp >160 Last administered on 11/08/18 08:59; Admin Dose 10 MG; Start 11/08/18 at 09:00 Morphine Sulfate (morphine) 2 mg Q4H PRN IV SEVERE PAIN LEVEL 7-10 Last administered on 11/10/18 01:20; Admin Dose 2 MG; Start 11/08/18 at 09:00 Daptomycin 500 mg/ Sodium Chloride 100 ml @ 200 mls/hr Q24H IVPB Last administered on 11/10/18 15:33; Admin Dose 200 MLS/HR; Start 11/08/18 at 16:00 Clopidogrel Bisulfate (plaVIX) 75 mg DAILY PO Last administered on 11/11/18at 09:02; Admin Dose 75 MG; Start 11/10/18 at 08:00 Sodium Chloride 1,000 ml @ 40 mls/hr Q24H IV Last administered on 11/11/18at 09:22; Admin Dose 40 MLS/HR; Start 11/11/18 at 08:00 Insulin Aspart (Novolog Insulin Pen) NOVOLOG *MILD* ALGORI... Q4 SC Last administered on 11/11/18at 09:09; Admin Dose 3 UNIT; Start 11/11/18 at 09:00 Heparin Sodium (Porcine) (Heparin (1000 Units/ml)) 6,800 unit PER PROTOCOL PRN IV aPTT<47; Start 11/11/18 at 09:00 Heparin Sodium (Porcine) (Heparin (1000 Units/ml)) 3,400 unit PER PROTOCOL PRN IV aPTT<47-57; Start 11/11/18 at 09:00 Heparin Sodium (Porcine) 250 ml @ 15.5 mls/hr PER PROTOCOL IV Last admin istered on 11/11/18at 09:19; Admin Dose 15.5 MLS/HR; Start 11/11/18 at 09:00 Famotidine (Pepcid) 20 mg DAILY NGT ; Start 11/11/18 at 09:30 Piperacillin Sod/ Tazobactam Sod 100 ml @ 200 mls/hr Q8 IVPB ; Start 11/11/18 at 14:00 Fentanyl 100 ml @ 2.5 mls/hr TITRATE IV ; Start 11/11/18 at 09:30 Midazolam HCl 50 ml @ 1 mls/hr TITRATE IV ; Start 11/11/18 at 10:30 Magnesium Sulfate 50 ml @ 25 mls/hr ONCE ONCE IVPB ; Start 11/11/18 at 09:30; Stop 11/11/18 at 11:29 IVELISSE BLACKWELL DPM Nov 11, 2018 11:08
[2018-11-11] MEDS: FENTAnyl (DRIP) 1000 mcg/100mL 100 ML IV SCH (11:09)
[2018-11-11] MEDS: MIDAZOLAM (DRIP) 50 mg/50 mL 50 ML IV SCH (11:10)
--- NOTE | 2018-11-11 11:13 | PN ---
Date/Time of Note Date/Time of Note DATE: 11/11/18 TIME: 11:13 Assessment/Plan VTE Prophylaxis Risk score (from Ns)>0 risk: 12 SCD applied (from Nsg): Yes Pharmacological prophylaxis: heparin Lines/Catheters IV Catheter Type (from Nrsg): Peripheral IV Urinary Cath still in place: No Assessment/Plan Assessment/Plan 1. Acute hypoxic respiratory failure - patient remains intubated but responding to commands - Pulmonology on board for vent management - will congestion this am and given Lasix - Cardiology on board and believes more pulmonary etiology for cardiac arrest 2. Cardiac arrest s/p ROSC - was bradycardic this am but remains stable - Cardiology on board and appreciate recommendations - ECHO with preserved EF - trops elevated but most likely secondary to hypoxia/CPR - less likely PE but currently on heparin drip. Believed to be more from aspiration 3. Bradycardia - holding Bystolic - has been stable since this am 4. left fifth toe gangrenous ulcer - Continue IV antibiotics and ID on board for recommendations - Continue local wound care - Podiatry on board and will plan for further amputation in the near future once stable 5. Severe peripheral vascular disease - s/p left femoral endarterectomy, iliofemoral bypass and femoral to posterior tibial bypass done on November 08, 2018 - Vascular surgery consultation appreciated 6. Diabetes Mellitus - A1c noted - Basal/bolus insulin, will adjust as needed for optimal glucose control 5. Acute kidney injury - nephrology consultation appreciated and most likely due to contrast induced nephropathy as well as hemodynamic. Slightly worsened this am after cardiac arrest - continue monitoring and avoid nephrotoxic agents 6. Essential HTN - holding home medications at this time given low BP 7. Peripheral neuropathy - cont. gabapentin 8. HLD - On statin 9. Chronic anemia - Stable H&H. Monitor 10. Urinary retention - Urology on board and appreciate recommendations. continue schneider care for now 11. Disposition - Continue vent management and wean as tolerated. Specialist input appreciated >40 minutes of critical care time spent with patient and family at bedside Result Diagram: 11/11/18 0532 11/11/18 0532 Results 24hrs Laboratory Tests Test 11/10/18 12:22 11/10/18 17:13 11/10/18 20:55 11/11/18 03:10 Bedside Glucose 216 201 213 236 H Test 11/11/18 04:14 11/11/18 05:32 11/11/18 05:33 11/11/18 07:23 Bedside Glucose 221 H White Blood Count 12.1 H Red Blood Count 2.58 L Hemoglobin 7.9 L Hematocrit 25.8 L Mean Corpuscular 100.0 Volume Mean Corpuscular 30.6 Hemoglobin Mean Corpuscular 30.6 L Hemoglobin Concen t Red Cell 13.3 Distribution Width Platelet Count 164 Mean Platelet 10.9 H Volume Immature 1.200 H Granulocytes % Neutrophils % 84.0 H Lymphocytes % 5.5 L Monocytes % 7.8 Eosinophils % 1.2 Basophils % 0.3 Nucleated Red 0.0 Blood Cells % Immature 0.140 H Granulocytes # Neutrophils # 10.1 H Lymphocytes # 0.7 L Monocytes # 0.9 Eosinophils # 0.1 Basophils # 0.0 Nucleated Red 0.0 Blood Cells # Sodium Level 134 L Potassium Level 5.0 Chloride Level 103 Carbon Dioxide 21 Level Anion Gap 10 Blood Urea 32 H Nitrogen Creatinine 1.44 H Est Glomerular Filtrat Rate mL/min Glucose Level 237 H Calcium Level 7.9 L Phosphorus Level 2.9 Magnesium Level 1.7 Prothrombin Time 13.6 Prothrombin Time 1.1 Ratio INR International 1.03 Normalized Ratio Activated 36.3 H Partial Thrombopl ast Time D-Dimer > 01582.00 H Troponin I 0.189 *H Blood Gas Blood arterial Specimen Source Arterial Blood 11/11/2018 7:59:3 Date Drawn 7 AM Arterial Blood pH 7.319 L (Temp corrected) Arterial Blood 41.4 pCO2 (Temp correct) Arterial Blood 81.8 pO2 (Temp corrected) Arterial Blood 20.8 L HCO3 Arterial Blood -4.9 L Base Excess Arterial Blood 94.7 L Oxygen Saturation Jeison Test ACCEPTAB Arterial Blood Right Radial Gas Puncture Site Arterial 0.3 Blood Carboxyhemo globin Arterial Blood 0.3 Methemoglobin Blood Gas A-a O2 589.8 H Differential Oxyhemoglobin 94.1 Percent Blood Gas 37.0 Temperature Blood Gas 16.0 Respiration Rate Blood Gas Actual 21 Respiration Rate Blood Gas VENT - AC Modality FiO2 100.0 Blood Gas Tidal 500.0 Volume Blood Gas Low 5.0 PEEP Setting Blood Gas TM Notified Whom Blood Gas 11/11/2018 8:09:3 Notified Time 4 AM Test 11/11/18 08:41 Bedside Glucose 249 H Subjective 24 Hr Interval Summary Free Text/Dictation Patient remains intubated and responding to commands. Complaining of abdominal and stomach discomfort. Son at bedside and all questions addressed. Exam/Review of Systems Exam Vitals Vital Signs Date Temp Pulse Resp B/P (MAP) Pulse Ox O2 O2 Flow FiO2 Time Delivery Rate 11/11/18 75 21 96 100 09:40 11/11/18 154/78 Mechanical 06:45 (103) Ventilator 11/11/18 97.7 04:45 11/10/18 3.0 20:00 Intake and Output 11/10/18 11/10/18 11/11/18 1515:00 23:00 07:00 IntakeIntake Total 650 ml 380.11 ml OutputOutput Total 0 ml BalanceBalance 650 ml 380.11 ml Exam General: Intubated and nodding head to questions appropriately. Mild distress secondary to discomfort of ETT Mentation: Patient is alert Head: Normocephalic atraumatic Eyes: EOMI, pupils reactive to light Neck: Supple Respiratory: Coarse bilaterally. no wheezing appreciated Cardiovascular: S1, S2, regular rate and rhythm, no obvious murmurs Gastrointestinal: soft, mildly distended, tender to palpation diffusely, bowel sounds heard. Neurological: Moves all extremities spontaneously Skin: No new skin lesions, LLE bandage clean and dry Results Results 24hrs Laboratory Tests Test 11/10/18 12:22 11/10/18 17:13 11/10/18 20:55 11/11/18 03:10 Bedside Glucose 216 201 213 236 H Test 11/11/18 04:14 11/11/18 05:32 11/11/18 05:33 11/11/18 07:23 Bedside Glucose 221 H White Blood Count 12.1 H Red Blood Count 2.58 L Hemoglobin 7.9 L Hematocrit 25.8 L Mean Corpuscular 100.0 Volume Mean Corpuscular 30.6 Hemoglobin Mean Corpuscular 30.6 L Hemoglobin Concen t Red Cell 13.3 Distribution Width Platelet Count 164 Mean Platelet 10.9 H Volume Immature 1.200 H Granulocytes % Neutrophils % 84.0 H Lymphocytes % 5.5 L Monocytes % 7.8 Eosinophils % 1.2 Basophils % 0.3 Nucleated Red 0.0 Blood Cells % Immature 0.140 H Granulocytes # Neutrophils # 10.1 H Lymphocytes # 0.7 L Monocytes # 0.9 Eosinophils # 0.1 Basophils # 0.0 Nucleated Red 0.0 Blood Cells # Sodium Level 134 L Potassium Level 5.0 Chloride Level 103 Carbon Dioxide 21 Level Anion Gap 10 Blood Urea 32 H Nitrogen Creatinine 1.44 H Est Glomerular Filtrat Rate mL/min Glucose Level 237 H Calcium Level 7.9 L Phosphorus Level 2.9 Magnesium Level 1.7 Prothrombin Time 13.6 Prothrombin Time 1.1 Ratio INR International 1.03 Normalized Ratio Activated 36.3 H Partial Thrombopl ast Time D-Dimer > 09427.00 H Troponin I 0.189 *H Blood Gas Blood arterial Specimen Source Arterial Blood 11/11/2018 7:59:3 Date Drawn 7 AM Arterial Blood pH 7.319 L (Temp corrected) Arterial Blood 41.4 pCO2 (Temp correct) Arterial Blood 81.8 pO2 (Temp corrected) Arterial Blood 20.8 L HCO3 Arterial Blood -4.9 L Base Excess Arterial Blood 94.7 L Oxygen Saturation Jeison Test ACCEPTAB Arterial Blood Right Radial Gas Puncture Site Arterial 0.3 Blood Carboxyhemo globin Arterial Blood 0.3 Methemoglobin Blood Gas A-a O2 589.8 H Differential Oxyhemoglobin 94.1 Percent Blood Gas 37.0 Temperature Blood Gas 16.0 Respiration Rate Blood Gas Actual 21 Respiration Rate Blood Gas VENT - AC Modality FiO2 100.0 Blood Gas Tidal 500.0 Volume Blood Gas Low 5.0 PEEP Setting Blood Gas TM Notified Whom Blood Gas 11/11/2018 8:09:3 Notified Time 4 AM Test 11/11/18 08:41 Bedside Glucose 249 H Medications Medication Current Medications Atorvastatin Calcium (Lipitor) 20 mg QHS PO Last administered on 11/10/18at 20:56; Admin Dose 20 MG; Start 11/04/18 at 21:00 Ergocalciferol (Drisdol) 50,000 unit Sa PO Last administered on 11/09/18 09:28; Admin Dose 50,000 UNIT; Start 11/09/18 at 09:00 Gabapentin (Neurontin) 300 mg BID PO Last administered on 11/11/18 09:02; Admin Dose 300 MG; Start 11/04/18 at 09:00 Miscellaneous Medication (Bystolic) 20 mg DAILY PO Last administered on 11/11/18 09:03; Admin Dose 20 MG; Start 11/04/18 at 09:00 Clonidine (Catapres) 0.1 mg Q6H PRN PO SBP>160; Start 11/04/18 at 09:00 IV Flush (NS 3 ml) 3 ml PER PROTOCOL IV ; Start 11/04/18 at 09:00 Ondansetron HCl (Zofran Inj) 4 mg Q6H PRN IV NAUSEA/VOMITING; Start 11/04/18 at 09:00 Acetaminophen (Tylenol Tab) 650 mg Q6H PRN PO .PAIN 1-3 OR TEMP; Start 11/04/18 at 09:00 Acetaminophen/ Hydrocodone Bitart ([place] (5/325)) 1 tab Q6H PRN PO .MOD PAIN 4- 6 Last administered on 11/10/18at 17:11; Admin Dose 1 TAB; Start 11/04/18 at 09:00 Docusate Sodium (Colace) 100 mg Q12H PRN PO .CONSTIPATION; Start 11/04/18 at 09:00 Miscellaneous Information 1 ea NOTE XX ; Start 11/04/18 at 09:00 Glucose (Glutose) 15 gm Q15M PRN PO DECREASED GLUCOSE; Start 11/04/18 at 09:00 Glucose (Glutose) 22.5 gm Q15M PRN PO DECREASED GLUCOSE; Start 11/04/18 at 09:00 Dextrose (D50w Syringe) 25 ml Q15M PRN IV DECREASED GLUCOSE; Start 11/04/18 at 09:00 Dextrose (D50w Syringe) 50 ml Q15M PRN IV DECREASED GLUCOSE; Start 11/04/18 at 09:00 Glucagon (Glucagen) 1 mg Q15M PRN IM DECREASED GLUCOSE; Start 11/04/18 at 09:00 Glucose (Glutose) 15 gm Q15M PRN BUCCAL DECREASED GLUCOSE; Start 11/04/18 at 09:00 Miscellaneous Information Patients own medicat... BID@10,16 XX Last administer ed on 11/10/18at 15:28; Admin Dose 1 EA; Start 11/04/18 at 16:00 Povidone Iodine (Povidone-Iodine) 1 applic BID TOP Last administered on 11/11/18at 09:04; Admin Dose 1 APPLIC; Start 11/05/18 at 21:00 Hydralazine HCl (Apresoline) 100 mg TID PO Last administered on 11/11/18at 09:01; Admin Dose 100 MG; Start 11/06/18 at 21:00 Diagnostic Test (Pha) (Accu-Chek) 1 ea 02 XX Last administered on 11/11/18 02:00; Admin Dose 1 EA; Start 11/07/18 at 02:00 Sodium Hypochlorite (Dakins Diluted ()) 1 applic BID TP Last administered on 11/10/18 21:28; Admin Dose 1 APPLIC; Start 11/07/18 at 09:00 Aspirin (Aspirin) 325 mg DAILY PO Last administered on 11/11/18 09:03; Admin Dose 325 MG; Start 11/07/18 at 11:00 Insulin Glargine (Lantus) 30 units DAILY@0800 SC Last administered on 11/11/18 09:05; Admin Dose 30 UNITS; Start 11/08/18 at 08:00 Hydralazine HCl (Apresoline) 10 mg Q4H PRN IV sbp >160 Last administered on 11/08/18 08:59; Admin Dose 10 MG; Start 11/08/18 at 09:00 Morphine Sulfate (morphine) 2 mg Q4H PRN IV SEVERE PAIN LEVEL 7-10 Last administered on 11/10/18 01:20; Admin Dose 2 MG; Start 11/08/18 at 09:00 Daptomycin 500 mg/ Sodium Chloride 100 ml @ 200 mls/hr Q24H IVPB Last adm inistered on 11/10/18 15:33; Admin Dose 200 MLS/HR; Start 11/08/18 at 16:00 Clopidogrel Bisulfate (plaVIX) 75 mg DAILY PO Last administered on 11/11/18 09:02; Admin Dose 75 MG; Start 11/10/18 at 08:00 Sodium Chloride 1,000 ml @ 40 mls/hr Q24H IV Last administered on 11/11/18 09:22; Admin Dose 40 MLS/HR; Start 11/11/18 at 08:00 Insulin Aspart (Novolog Insulin Pen) NOVOLOG *MILD* ALGORI... Q4 SC Last administered on 11/11/18 09:09; Admin Dose 3 UNIT; Start 11/11/18 at 09:00 Heparin Sodium (Porcine) (Heparin (1000 Units/ml)) 6,800 unit PER PROTOCOL PRN IV aPTT<47; Start 11/11/18 at 09:00 Heparin Sodium (Porcine) (Heparin (1000 Units/ml)) 3,400 unit PER PROTOCOL PRN IV aPTT<47-57; Start 11/11/18 at 09:00 Heparin Sodium (Porcine) 250 ml @ 15.5 mls/hr PER PROTOCOL IV Last administered on 11/11/18at 09:19; Admin Dose 15.5 MLS/HR; Start 11/11/18 at 09:00 Famotidine (Pepcid) 20 mg DAILY NGT ; Start 11/11/18 at 09:30 Piperacillin Sod/ Tazobactam Sod 100 ml @ 200 mls/hr Q8 IVPB ; Start 11/11/18 at 14:00 Fentanyl 100 ml @ 2.5 mls/hr TITRATE IV ; Start 11/11/18 at 09:30 Midazolam HCl 50 ml @ 1 mls/hr TITRATE IV ; Start 11/11/18 at 10:30 Magnesium Sulfate 50 ml @ 25 mls/hr ONCE ONCE IVPB ; Start 11/11/18 at 09:30; Stop 11/11/18 at 11:29 KARL WOOD MD Nov 11, 2018 11:13
--- NOTE | 2018-11-11 12:15 | CONS ---
Assessment/Plan Assessment/Plan Hospital Course (Demo Recall) Patient had a cardiac arrest was intubated transferred to ICU currently on Versed and fentanyl drips in no distress afebrile. WBC 12.1 H&H 7.9 and 25.8 platelets 164 neutrophils 84 BUN 32 creatinine 1.44 Antimicrobials: Zosyn, daptomycin Indwelling: Endotracheal tube, NG tube, Vora Physical examination: Well-developed elderly man who is in no distress head atraumatic normocephalic neck is supple chest rise symmetrical breath sounds diminished bases heart S1-S2 abdomen soft bowel sounds present extremities with left foot dressing intact Assessment: 1. Status post cardiac arrest 2. Non-ST elevation OR 3. Acute respiratory failure, possibly aspirated 4. Left foot gangrene 5. Peripheral arterial disease status post bypass graft 6. Diabetes and hypertension 7. History of left foot second toe amputation 8. Acute kidney insufficiency possibly secondary to contrast yesterday Plan: Hemodynamically stable, started on Zosyn for possible aspiration, continue present care, vent management per pulmonary Consultation Date/Type/Reason Admit Date/Time Nov 04, 2018 at 07:34 Initial Consult Date Type of Consult id Requesting Provider: KARLA LAIRD NP Date/Time of Note DATE: 11/11/18 TIME: 12:12 Exam/Review of Systems Exam Vitals Vital Signs Date Temp Pulse Resp B/P (MAP) Pulse Ox O2 O2 Flow FiO2 Time Delivery Rate 11/11/18 75 21 96 100 09:40 11/11/18 154/78 Mechanical 06:45 (103) Ventilator 11/11/18 97.7 04:45 11/10/18 3.0 20:00 Intake and Output 11/10/18 11/10/18 11/11/18 1515:00 23:00 07:00 IntakeIntake Total 650 ml 380.11 ml OutputOutput Total 0 ml BalanceBalance 650 ml 380.11 ml Results Result Diagram: 11/11/18 0532 11/11/18 0532 Results 24hrs Laboratory Tests Test 11/10/18 12:22 11/10/18 17:13 11/10/18 20:55 11/11/18 03:10 Bedside Glucose 216 201 213 236 H Test 11/11/18 04:14 11/11/18 05:32 11/11/18 05:33 11/11/18 07:23 Bedside Glucose 221 H White Blood Count 12.1 H Red Blood Count 2.58 L Hemoglobin 7.9 L Hematocrit 25.8 L Mean Corpuscular 100.0 Volume Mean Corpuscular 30.6 Hemoglobin Mean Corpuscular 30.6 L Hemoglobin Concen t Red Cell 13.3 Distribution Width Platelet Count 164 Mean Platelet 10.9 H Volume Immature 1.200 H Granulocytes % Neutrophils % 84.0 H Lymphocytes % 5.5 L Monocytes % 7.8 Eosinophils % 1.2 Basophils % 0.3 Nucleated Red 0.0 Blood Cells % Immature 0.140 H Granulocytes # Neutrophils # 10.1 H Lymphocytes # 0.7 L Monocytes # 0.9 Eosinophils # 0.1 Basophils # 0.0 Nucleated Red 0.0 Blood Cells # Sodium Level 134 L Potassium Level 5.0 Chloride Level 103 Carbon Dioxide 21 Level Anion Gap 10 Blood Urea 32 H Nitrogen Creatinine 1.44 H Est Glomerular Filtrat Rate mL/min Glucose Level 237 H Calcium Level 7.9 L Phosphorus Level 2.9 Magnesium Level 1.7 Prothrombin Time 13.6 Prothrombin Time 1.1 Ratio INR International 1.03 Normalized Ratio Activated 36.3 H Partial Thrombopl ast Time D-Dimer > 63633.00 H Troponin I 0.189 *H Blood Gas Blood arterial Specimen Source Arterial Blood 11/11/2018 7:59:3 Date Drawn 7 AM Arterial Blood pH 7.319 L (Temp corrected) Arterial Blood 41.4 pCO2 (Temp correct) Arterial Blood 81.8 pO2 (Temp corrected) Arterial Blood 20.8 L HCO3 Arterial Blood -4.9 L Base Excess Arterial Blood 94.7 L Oxygen Saturation Jeison Test ACCEPTAB Arterial Blood Right Radial Gas Puncture Site Arterial 0.3 Blood Carboxyhemo globin Arterial Blood 0.3 Methemoglobin Blood Gas A-a O2 589.8 H Differential Oxyhemoglobin 94.1 Percent Blood Gas 37.0 Temperature Blood Gas 16.0 Respiration Rate Blood Gas Actual 21 Respiration Rate Blood Gas VENT - AC Modality FiO2 100.0 Blood Gas Tidal 500.0 Volume Blood Gas Low 5.0 PEEP Setting Blood Gas TM Notified Whom Blood Gas 11/11/2018 8:09:3 Notified Time 4 AM Test 11/11/18 08:41 Bedside Glucose 249 H Medications Medication Current Medications Atorvastatin Calcium (Lipitor) 20 mg QHS PO Last administered on 11/10/18at 20:56; Admin Dose 20 MG; Start 11/04/18 at 21:00 Ergocalciferol (Drisdol) 50,000 unit Sa PO Last administered on 11/09/18at 09:28; Admin Dose 50,000 UNIT; Start 11/09/18 at 09:00 Gabapentin (Neurontin) 300 mg BID PO Last administered on 11/11/18at 09:02; Admin Dose 300 MG; Start 11/04/18 at 09:00 Miscellaneous Medication (Bystolic) 20 mg DAILY PO Last administered on 11/11/18at 09:03; Admin Dose 20 MG; Start 11/04/18 at 09:00 Clonidine (Catapres) 0.1 mg Q6H PRN PO SBP>160; Start 11/04/18 at 09:00 IV Flush (NS 3 ml) 3 ml PER PROTOCOL IV ; Start 11/04/18 at 09:00 Ondansetron HCl (Zofran Inj) 4 mg Q6H PRN IV NAUSEA/VOMITING; Start 11/04/18 at 09:00 Acetaminophen (Tylenol Tab) 650 mg Q6H PRN PO .PAIN 1-3 OR TEMP; Start 11/04/18 at 09:00 Acetaminophen/ Hydrocodone Bitart ([place] (5/325)) 1 tab Q6H PRN PO .MOD PAIN 4- 6 Last administered on 11/10/18at 17:11; Admin Dose 1 TAB; Start 11/04/18 at 09:00 Docusate Sodium (Colace) 100 mg Q12H PRN PO .CONSTIPATION; Start 11/04/18 at 09:00 Miscellaneous Information 1 ea NOTE XX ; Start 11/04/18 at 09:00 Glucose (Glutose) 15 gm Q15M PRN PO DECREASED GLUCOSE; Start 11/04/18 at 09:00 Glucose (Glutose) 22.5 gm Q15M PRN PO DECREASED GLUCOSE; Start 11/04/18 at 09:00 Dextrose (D50w Syringe) 25 ml Q15M PRN IV DECREASED GLUCOSE; Start 11/04/18 at 09:00 Dextrose (D50w Syringe) 50 ml Q15M PRN IV DECREASED GLUCOSE; Start 11/04/18 at 09:00 Glucagon (Glucagen) 1 mg Q15M PRN IM DECREASED GLUCOSE; Start 11/04/18 at 09:00 Glucose (Glutose) 15 gm Q15M PRN BUCCAL DECREASED GLUCOSE; Start 11/04/18 at 09:00 Miscellaneous Information Patients own medicat... BID@10,16 XX Last administered on 11/10/18 15:28; Admin Dose 1 EA; Start 11/04/18 at 16:00 Povidone Iodine (Povidone-Iodine) 1 applic BID TOP Last administered on 11/11/18 09:04; Admin Dose 1 APPLIC; Start 11/05/18 at 21:00 Hydralazine HCl (Apresoline) 100 mg TID PO Last administered on 11/11/18 09:01; Admin Dose 100 MG; Start 11/06/18 at 21:00 Diagnostic Test (Pha) (Accu-Chek) 1 ea 02 XX Last administered on 11/11/18 02:00; Admin Dose 1 EA; Start 11/07/18 at 02:00 Sodium Hypochlorite (Dakins Diluted (40)) 1 applic BID TP Last administered on 11/10/18 21:28; Admin Dose 1 APPLIC; Start 11/07/18 at 09:00 Aspirin (Aspirin) 325 mg DAILY PO Last administered on 11/11/18 09:03; Admin Dose 325 MG; Start 11/07/18 at 11:00 Insulin Glargine (Lantus) 30 units DAILY@0800 SC Last administered on 11/11/18 09:05; Admin Dose 30 UNITS; Start 11/08/18 at 08:00 Hydralazine HCl (Apresoline) 10 mg Q4H PRN IV sbp >160 Last administered on 11/08/18 08:59; Admin Dose 10 MG; Start 11/08/18 at 09:00 Morphine Sulfate (morphine) 2 mg Q4H PRN IV SEVERE PAIN LEVEL 7-10 Last administered on 11/10/18 01:20; Admin Dose 2 MG; Start 11/08/18 at 09:00 Daptomycin 500 mg/ Sodium Chloride 100 ml @ 200 mls/hr Q24H IVPB Last administered on 11/10/18 15:33; Admin Dose 200 MLS/HR; Start 11/08/18 at 16:00 Clopidogrel Bisulfate (plaVIX) 75 mg DAILY PO Last administered on 11/11/18 09:02; Admin Dose 75 MG; Start 11/10/18 at 08:00 Sodium Chloride 1,000 ml @ 40 mls/hr Q24H IV Last administered on 11/11/18 09:22; Admin Dose 40 MLS/HR; Start 11/11/18 at 08:00 Insulin Aspart (Novolog Insulin Pen) NOVOLOG *MILD* ALGORI... Q4 SC Last administered on 11/11/18 09:09; Admin Dose 3 UNIT; Start 11/11/18 at 09:00 Heparin Sodium (Porcine) (Heparin (1000 Units/ml)) 6,800 unit PER PROTOCOL PRN IV aPTT<47; Start 11/11/18 at 09:00 Heparin Sodium (Porcine) (Heparin (1000 Units/ml)) 3,400 unit PER PROTOCOL PRN IV aPTT<47-57; Start 11/11/18 at 09:00 Heparin Sodium (Porcine) 250 ml @ 15.5 mls/hr PER PROTOCOL IV Last administered on 11/11/18 09:19; Admin Dose 15.5 MLS/HR; Start 11/11/18 at 09:00 Famotidine (Pepcid) 20 mg DAILY NGT Last administered on 11/11/18 10:59; Admin Dose 20 MG; Start 11/11/18 at 09:30 Piperacillin Sod/ Tazobactam Sod 100 ml @ 200 mls/hr Q8 IVPB ; Start 11/11/18 at 14:00 Fentanyl 100 ml @ 2.5 mls/hr TITRATE IV Last administered on 11/11/18 11:09; Admin Dose 2.5 MLS/HR; Start 11/11/18 at 09:30 Midazolam HCl 50 ml @ 1 mls/hr TITRATE IV Last administered on 11/11/18 11:10; Admin Dose 5 MLS/HR; Start 11/11/18 at 10:30 HERRERA MURILLO NP Nov 11, 2018 12:15
[2018-11-11] MEDS: DAKINS 0.0125%(1/40) 473 ML SOLUTION TP SCH ×2 (12:20→21:08)
--- NOTE | 2018-11-11 12:39 | CONS ---
Assessment/Plan Assessment/Plan Hospital Course (Demo Recall) IMPRESSION: 1. Preoperative evaluation prior to possible need for peripheral revascularization surgery.-neg trop x 3 and NL EF by echo with no sig valve abnl 2. Peripheral arterial disease with nonhealing gangrenous changes in left toe ulceration. 3. Hypertension, under reasonable control on current medications. 4. Dyslipidemia. 5. Diabetes mellitus. 6. s/p cardiopulmonary arrest 7. Bradycardic intermittenjt by tele 8. Positive troponin after arrest-? secondary to or primary to arrest Recc: -Now in ICU s/p arrest -trend cardiac enzymes -Continue asa/plavix/statin -serial ecg's -Continue abx's and f/u cx data -local wound care -continue heparin for now -Contineu hydralazine -consider decrease or hold bystolic today and follow rhythm Consultation Date/Type/Reason Admit Date/Time Nov 04, 2018 at 07:34 Initial Consult Date 11/06/18 Type of Consult Cardiology Reason for Consultation cardiopulmonary arrest Requesting Provider: KARLA LAIRD NP Date/Time of Note DATE: 11/11/18 TIME: 12:30 Exam/Review of Systems Vital Signs Vitals Vital Signs Date Temp Pulse Resp B/P (MAP) Pulse Ox O2 O2 Flow FiO2 Time Delivery Rate 11/11/18 75 21 96 100 09:40 11/11/18 154/78 Mechanical 06:45 (103) Ventilator 11/11/18 97.7 04:45 11/10/18 3.0 20:00 Intake and Output 11/10/18 11/10/18 11/11/18 1515:00 23:00 07:00 IntakeIntake Total 650 ml 380.11 ml OutputOutput Total 0 ml BalanceBalance 650 ml 380.11 ml Exam Exam Review of Systems: CONSTITUTIONAL: No fevers, chills. PULMONARY: intubated CARDIOVASCULAR: No chest pain/palpitations GASTROINTESTINAL: No nausea/vomiting. GENITOURINARY: No hematuria/dysuria. MUSCULOSKELETAL: No myagias/arthalgias. PSYCHIATRIC: The patient denies depression. NEUROLOGIC: sedated Constitutional: other (sedated) Psych: no complaints Head: normocephalic ENMT: mucosa pink and moist Neck: supple, jvd (9 cm water) Respiratory: diminished breath sounds (at bases/B) Cardiovascular: regular rate and rhythm Gastrointestinal: soft, non-tender Extremities: edema (trace), other (LLE covered by dressing) Neurological: other (No focal deficits) Labs Result Diagram: 11/11/18 0532 11/11/18 0532 Results 24hrs Laboratory Tests Test 11/10/18 17:13 11/10/18 20:55 11/11/18 03:10 11/11/18 04:14 Bedside Glucose 201 213 236 H 221 H Test 11/11/18 05:32 11/11/18 05:33 11/11/18 07:23 11/11/18 08:41 White Blood Count 12.1 H Red Blood Count 2.58 L Hemoglobin 7.9 L Hematocrit 25.8 L Mean Corpuscular 100.0 Volume Mean Corpuscular 30.6 Hemoglobin Mean Corpuscular 30.6 L Hemoglobin Concen t Red Cell 13.3 Distribution Width Platelet Count 164 Mean Platelet 10.9 H Volume Immature 1.200 H Granulocytes % Neutrophils % 84.0 H Lymphocytes % 5.5 L Monocytes % 7.8 Eosinophils % 1.2 Basophils % 0.3 Nucleated Red 0.0 Blood Cells % Immature 0.140 H Granulocytes # Neutrophils # 10.1 H Lymphocytes # 0.7 L Monocytes # 0.9 Eosinophils # 0.1 Basophils # 0.0 Nucleated Red 0.0 Blood Cells # Sodium Level 134 L Potassium Level 5.0 Chloride Level 103 Carbon Dioxide 21 Level Anion Gap 10 Blood Urea 32 H Nitrogen Creatinine 1.44 H Est Glomerular Filtrat Rate mL/min Glucose Level 237 H Calcium Level 7.9 L Phosphorus Level 2.9 Magnesium Level 1.7 Prothrombin Time 13.6 Prothrombin Time 1.1 Ratio INR International 1.03 Normalized Ratio Activated 36.3 H Partial Thrombopl ast Time D-Dimer > 47250.00 H Troponin I 0.189 *H Blood Gas Blood arterial Specimen Source Arterial Blood 11/11/2018 7:59:3 Date Drawn 7 AM Arterial Blood pH 7.319 L (Temp corrected) Arterial Blood 41.4 pCO2 (Temp correct) Arterial Blood 81.8 pO2 (Temp corrected) Arterial Blood 20.8 L HCO3 Arterial Blood -4.9 L Base Excess Arterial Blood 94.7 L Oxygen Saturation Jeison Test ACCEPTAB Arterial Blood Right Radial Gas Puncture Site Arterial 0.3 Blood Carboxyhemo globin Arterial Blood 0.3 Methemoglobin Blood Gas A-a O2 589.8 H Differential Oxyhemoglobin 94.1 Percent Blood Gas 37.0 Temperature Blood Gas 16.0 Respiration Rate Blood Gas Actual 21 Respiration Rate Blood Gas VENT - AC Modality FiO2 100.0 Blood Gas Tidal 500.0 Volume Blood Gas Low 5.0 PEEP Setting Blood Gas TM Notified Whom Blood Gas 11/11/2018 8:09:3 Notified Time 4 AM Bedside Glucose 249 H Medications Medications Current Medications Atorvastatin Calcium (Lipitor) 20 mg QHS PO Last administered on 11/10/18 20:56; Admin Dose 20 MG; Start 11/04/18 at 21:00 Ergocalciferol (Drisdol) 50,000 unit Sa PO Last administered on 11/09/18 09:28; Admin Dose 50,000 UNIT; Start 11/09/18 at 09:00 Gabapentin (Neurontin) 300 mg BID PO Last administered on 11/11/18 09:02; Admin Dose 300 MG; Start 11/04/18 at 09:00 Miscellaneous Medication (Bystolic) 20 mg DAILY PO Last administered on 11/11/18 09:03; Admin Dose 20 MG; Start 11/04/18 at 09:00 Clonidine (Catapres) 0.1 mg Q6H PRN PO SBP>160; Start 11/04/18 at 09:00 IV Flush (NS 3 ml) 3 ml PER PROTOCOL IV ; Start 11/04/18 at 09:00 Ondansetron HCl (Zofran Inj) 4 mg Q6H PRN IV NAUSEA/VOMITING; Start 11/04/18 at 09:00 Acetaminophen (Tylenol Tab) 650 mg Q6H PRN PO .PAIN 1-3 OR TEMP; Start 11/04/18 at 09:00 Acetaminophen/ Hydrocodone Bitart ([place] (5/325)) 1 tab Q6H PRN PO .MOD PAIN 4- 6 Last administered on 11/10/18 17:11; Admin Dose 1 TAB; Start 11/04/18 at 09:00 Docusate Sodium (Colace) 100 mg Q12H PRN PO .CONSTIPATION; Start 11/04/18 at 09:00 Miscellaneous Information 1 ea NOTE XX ; Start 11/04/18 at 09:00 Glucose (Glutose) 15 gm Q15M PRN PO DECREASED GLUCOSE; Start 11/04/18 at 09:00 Glucose (Glutose) 22.5 gm Q15M PRN PO DECREASED GLUCOSE; Start 11/04/18 at 09:00 Dextrose (D50w Syringe) 25 ml Q15M PRN IV DECREASED GLUCOSE; Start 11/04/18 at 09:00 Dextrose (D50w Syringe) 50 ml Q15M PRN IV DECREASED GLUCOSE; Start 11/04/18 at 09:00 Glucagon (Glucagen) 1 mg Q15M PRN IM DECREASED GLUCOSE; Start 11/04/18 at 09:00 Glucose (Glutose) 15 gm Q15M PRN BUCCAL DECREASED GLUCOSE; Start 11/04/18 at 09:00 Miscellaneous Information Patients own medicat... BID@10,16 XX Last administered on 11/10/18 15:28; Admin Dose 1 EA; Start 11/04/18 at 16:00 Povidone Iodine (Povidone-Iodine) 1 applic BID TOP Last administered on 11/11/18 09:04; Admin Dose 1 APPLIC; Start 11/05/18 at 21:00 Hydralazine HCl (Apresoline) 100 mg TID PO Last administered on 11/11/18 09:01; Admin Dose 100 MG; Start 11/06/18 at 21:00 Diagnostic Test (Pha) (Accu-Chek) 1 ea 02 XX Last administered on 11/11/18 02:00; Admin Dose 1 EA; Start 11/07/18 at 02:00 Sodium Hypochlorite (Dakins Diluted (1/40)) 1 applic BID TP Last administered on 11/11/18 12:20; Admin Dose 1 APPLIC; Start 11/07/18 at 09:00 Aspirin (Aspirin) 325 mg DAILY PO Last administered on 11/11/18 09:03; Admin Dose 325 MG; Start 11/07/18 at 11:00 Insulin Glargine (Lantus) 30 units DAILY@0800 SC Last administered on 11/11/18 09:05; Admin Dose 30 UNITS; Start 11/08/18 at 08:00 Hydralazine HCl (Apresoline) 10 mg Q4H PRN IV sbp >160 Last administered on 11/08/18at 08:59; Admin Dose 10 MG; Start 11/08/18 at 09:00 Morphine Sulfate (morphine) 2 mg Q4H PRN IV SEVERE PAIN LEVEL 7-10 Last administered on 11/10/18 01:20; Admin Dose 2 MG; Start 11/08/18 at 09:00 Daptomycin 500 mg/ Sodium Chloride 100 ml @ 200 mls/hr Q24H IVPB Last administered on 11/10/18 15:33; Admin Dose 200 MLS/HR; Start 11/08/18 at 16:00 Clopidogrel Bisulfate (plaVIX) 75 mg DAILY PO Last administered on 11/11/18 09:02; Admin Dose 75 MG; Start 11/10/18 at 08:00 Sodium Chloride 1,000 ml @ 40 mls/hr Q24H IV Last administered on 11/11/18 09:22; Admin Dose 40 MLS/HR; Start 11/11/18 at 08:00 Insulin Aspart (Novolog Insulin Pen) NOVOLOG *MILD* ALGORI... Q4 SC Last administered on 11/11/18 09:09; Admin Dose 3 UNIT; Start 11/11/18 at 09:00 Heparin Sodium (Porcine) (Heparin (1000 Units/ml)) 6,800 unit PER PROTOCOL PRN IV aPTT<47; Start 11/11/18 at 09:00 Heparin Sodium (Porcine) (Heparin (1000 Units/ml)) 3,400 unit PER PROTOCOL PRN IV aPTT<47-57; Start 11/11/18 at 09:00 Heparin Sodium (Porcine) 250 ml @ 15.5 mls/hr PER PROTOCOL IV Last administered on 11/11/18 09:19; Admin Dose 15.5 MLS/HR; Start 11/11/18 at 09:00 Famotidine (Pepcid) 20 mg DAILY NGT Last administered on 11/11/18 10:59; Admin Dose 20 MG; Start 11/11/18 at 09:30 Piperacillin Sod/ Tazobactam Sod 100 ml @ 200 mls/hr Q8 IVPB ; Start 11/11/18 at 14:00 Fentanyl 100 ml @ 2.5 mls/hr TITRATE IV Last administered on 11/11/18 11:09; Admin Dose 2.5 MLS/HR; Start 11/11/18 at 09:30 Midazolam HCl 50 ml @ 1 mls/hr TITRATE IV Last administered on 11/11/18 11:10; Admin Dose 5 MLS/HR; Start 11/11/18 at 10:30 KLEVER HUNT Nov 11, 2018 12:39
[2018-11-11] MEDS: PIPER-TAZO 3.375 GM IV (PMX) 100 ML IVPB SCH ×2 (13:12→21:07)
--- NOTE | 2018-11-11 13:49 | CONS ---
DATE OF ADMISSION: 11/04/2018 DATE OF CONSULTATION: TYPE OF CONSULTATION: Pulmonary. REASON FOR CONSULTATION: Ventilator management. Thank you, Dr. Burroughs, for this consultation. HISTORY OF PRESENT ILLNESS: This is a 72-year-old gentleman with history of peripheral vascular dise ase status post attempt at revascularization of left iliofemoral circulation with endarterectomy and bypass. Postoperatively, was doing well until episode of bradycardia with subsequent cardiopulmonary arrest requiring epinephrine x1, emergent intubation with return of circulation. The patient transf erred to intensive care unit on mechanical ventilation, continues mechanical ventilation with periods of bradycardia. No prior history of arrhythmias per family. Possible aspiration event with new rig ht lower lobe infiltrate. PAST MEDICAL HISTORY: 1. Peripheral vascular disease. 2. Renal insufficiency. 3. Cardiopulmonary arrest following bradycardia. 4. Neuropathy. 5. Type 2 diabetes. 6. Renal insufficiency. MEDICATIONS: Per chart. ALLERGIES: None. SOCIAL HISTORY: He is a current nonsmoker, no alcohol, no history of drug use. FAMILY HISTORY: Noncontributory. SYSTEMS REVIEW: A 12-point review of systems currently unable to perform. PHYSICAL EXAMINATION: GENERAL: Well-nourished, well-developed gentleman, orally intubated on mechanical ventilation, appea rs comfortable at rest, no acute distress. VITAL SIGNS: Currently afebrile, pulse is 75, blood pressure 150/78, O2 saturation 96%, FIO2 of 100% . NECK: Supple. No JVD or lymphadenopathy. CARDIAC: S1, S2, no added sounds or murmurs. CHEST: Diminished air entry bilaterally. ABDOMEN: Soft, nontender. No guarding or rebound. EXTREMITIES: No cyanosis, clubbing, 1+ edema. NEUROLOGIC: Generalized weakness. LABORATORY DATA: White count 12.1, hemoglobin 7.9, platelets of 164. BUN 32, creatinine 1.44. Trop onin elevated at 1.89. INR 1.03. Arterial blood gas pH 7.31, pCO2 of 41, pO2 of 81, bicarbonate was 20. DIAGNOSTIC DATA: Chest x-ray shows pulmonary edema. IMPRESSION AND PLAN: 1. Acute hypoxemic respiratory failure likely following cardiopulmonary arrest. 2. New onset bradycardia. 3. Peripheral vascular disease. 4. Poorly controlled diabetes. PLAN: 1. Lasix x1 for significant vascular congestion. 2. Continue mechanical ventilation. 3. Echocardiogram and cardiology recommendations for bradycardia. 4. Discontinue propofol, transition to fentanyl and Versed. 5. Replace electrolytes. 6. Deep vein thrombosis and gastrointestinal prophylaxis. 7. Vascular recommendations. Dictated By: EDWIGE KAUR/BOBO Conf#: [id number] DID#: [id number] CC: TOMASA SCOTT;*EndCC*
--- NOTE | 2018-11-11 14:09 | CONS ---
Assessment/Plan Assessment/Plan Hospital Course (Demo Recall) 72-year-old male who coded last night and nursing staff were not able to insert the Vora catheter. A urological consultation was therefore requested patient is known to have the following problems: left fifth toe gangrenous ulcer -Patient status post left femoral endarterectomy, iliofemoral bypass and femoral to posterior tibial bypass done on November 08, 2018 -Status post aortogram and plan for Fem-tibial bypass today Poorly controlled DMII Acute kidney injury -Renal function worsened secondary to contrast-induced nephropathy. Hyperkalemia Essential HTN Peripheral neuropathy Dyslipidemia Chronic anemia Presently the patient is intubated in the intensive care urine and on a respirator. I did review his records. The patient does have phimosis and balanitis I was able to retract the foreskin enough to be able to see the urethral meatus and then I inserted a 16 [place] coud catheter. There was no resistance and 600 mL of clear urine drained out. For now keep the Vora catheter in place Consultation Date/Type/Reason Admit Date/Time Nov 04, 2018 at 07:34 Date of Consultation: Nov 11, 2018 Type of Consult Urology Reason for Consultation Urinary retention and difficulty inserting a Vora catheter Requesting Provider: KARL WOOD MD Date/Time of Note DATE: 11/11/18 TIME: 14:01 Hx of Present Illness 72-year-old male who coded last night and nursing staff were not able to insert the Vora catheter. A urological consultation was therefore requested patient is known to have the following problems: left fifth toe gangrenous ulcer -Patient status post left femoral endarterectomy, iliofemoral bypass and femoral to posterior tibial bypass done on November 08, 2018 -Status post aortogram and plan for Fem-tibial bypass today Poorly controlled DMII Acute kidney injury -Renal function worsened secondary to contrast-induced nephropathy. Hyperkalemia Essential HTN Peripheral neuropathy Dyslipidemia Chronic anemia Presently the patient is intubated in the intensive care urine and on a respirator. I did review his records. Past Medical History Medical History: other (As per history of present illness) Home Meds Active Scripts Silver Sulfadiazine* (Silvadene*) 1% - 20 Gm Cream.gm., 1 APPLIC TOP DAILY, #1 TUB Prov:JESSIE WONG MD 06/12/18 Amoxicillin-Clavulanate K* (Augmentin*) 875 Mg Tab, 875 MG PO BID, #28 TAB Prov:AMANDA GOMEZ MD 06/08/14 Reported Medications Insulin Aspart (Novolog Mix (70/30)) 100 Units/Ml Soln, 28 SC with diinner, VIAL 11/04/18 Insulin Aspart (Novolog Mix (70/30)) 100 Units/Ml Soln, 38 SC WITH BREAKFAST, VIAL 11/04/18 Benazepril Hcl* (Benazepril Hcl*) 40 Mg Tablet, 40 MG PO DAILY, #30 TAB 11/04/18 Ergocalciferol (Vitamin D2) (VITAMIN D2) 50,000 Unit Capsule, 30937 UNIT PO weekly for saturdays, CAP 11/04/18 Omeprazole* (Omeprazole*) 20 Mg Capsule.dr, 20 MG PO DAILY, #30 CAP 11/04/18 Aspirin* (Aspirin* EC) 81 Mg Tablet.dr, 81 MG PO DAILY, TAB 11/04/18 Gabapentin* (Gabapentin*) 300 Mg Capsule, 300 MG PO BID, #60 CAP 11/04/18 Nebivolol Hcl* (Bystolic*) 20 Mg Tablet, 20 MG PO DAILY, #30 TAB 11/04/18 Atorvastatin Calcium* (Atorvastatin Calcium*) 20 Mg Tablet, 20 MG PO QHS, #30 TAB 11/04/18 Sulfasalazine (Azulfidine) 500 Mg Tab, 1000 MG PO TID, TAB 06/02/14 Discontinued Reported Medications Simvastatin (Simvastatin) 40 Mg Tablet, 40 MG PO DAILY, TAB 06/02/14 Famotidine* (Pepcid*) Unknown Strength Tablet, PO DAILY, TAB 06/02/14 Hum Insulin Nph/Reg Insulin Hm (Humulin 70-30 Vial) 100 Units/Ml Vial, SQ SLIDING SCALE, VIAL 03/05/14 Benazepril Hcl* (Benazepril Hcl*) 20 Mg Tablet, 20 MG PO DAILY, TAB 03/05/14 Discontinued Scripts Hydrocodone Bit-Acetaminophen* ([place]*) 5-325 Mg Tab, 1 TAB PO Q4H PRN for PAIN, #14 TAB Prov:ALESIA BREWER PA-C 12/17/14 Clindamycin Hcl* (Clindamycin Hcl*) 300 Mg Capsule, 300 MG PO Q8 for infection for 7 Days, CAP Prov:ALESIA BREWER PA-C 12/17/14 Acetaminophen* (Tylophen*) 500 Mg Capsule, 1 CAP PO Q6H PRN for PAIN AND OR ELEVATED TEMP, #20 CAP Prov:DESHAWN ATKINS 12/09/14 Sulfamethoxazole-Trimethoprim* (Bactrim* DS) 800-160 Mg Tab, 1 TAB PO BID for 5 Days, TAB Prov:KAROL FISHMAN PA-C 11/29/14 Sulfamethoxazole-Trimethoprim* (Bactrim* DS) 800-160 Mg Tab, 1 TAB PO BID for 10 Days, TAB Prov:EVERETT SCHWAB PA-C 11/13/14 Cephalexin* (Keflex*) 500 Mg Capsule, 500 MG PO QID for 7 Days, CAP Prov:EVERETT SCHWAB PA-C 11/13/14 Docusate Sodium* (Colace*) 100 Mg Cap, 100 MG PO BID, #60 Prov:AMANDA GOEMZ MD 06/08/14 Prednisone (Prednisone) 10 Mg Tab, 30 MG PO DAILY, #30 TAB Prov:AMANDA GOMEZ MD 06/08/14 Insulin Glargine* (Lantus*) 100 Unit/Ml Soln, 35 UNIT SC HS, #2 Prov:AMANDA GOMEZ MD 06/08/14 Medications Current Medications Atorvastatin Calcium (Lipitor) 20 mg QHS PO Last administered on 11/10/18at 20:56; Admin Dose 20 MG; Start 11/04/18 at 21:00 Ergocalciferol (Drisdol) 50,000 unit Sa PO Last administered on 11/09/18at 09:28; Admin Dose 50,000 UNIT; Start 11/09/18 at 09:00 Gabapentin (Neurontin) 300 mg BID PO Last administered on 11/11/18at 09:02; Admin Dose 300 MG; Start 11/04/18 at 09:00 Miscellaneous Medication (Bystolic) 20 mg DAILY PO Last administered on 11/11/18at 09:03; Admin Dose 20 MG; Start 11/04/18 at 09:00; Status Hold Clonidine (Catapres) 0.1 mg Q6H PRN PO SBP>160; Start 11/04/18 at 09:00 IV Flush (NS 3 ml) 3 ml PER PROTOCOL IV ; Start 11/04/18 at 09:00 Ondansetron HCl (Zofran Inj) 4 mg Q6H PRN IV NAUSEA/VOMITING; Start 11/04/18 at 09:00 Acetaminophen (Tylenol Tab) 650 mg Q6H PRN PO .PAIN 1-3 OR TEMP; Start 11/04/18 at 09:00 Acetaminophen/ Hydrocodone Bitart ([place] (5/325)) 1 tab Q6H PRN PO .MOD PAIN 4- 6 Last administered on 11/10/18at 17:11; Admin Dose 1 TAB; Start 11/04/18 at 09:00 Docusate Sodium (Colace) 100 mg Q12H PRN PO .CONSTIPATION; Start 11/04/18 at 09:00 Miscellaneous Information 1 ea NOTE XX ; Start 11/04/18 at 09:00 Glucose (Glutose) 15 gm Q15M PRN PO DECREASED GLUCOSE; Start 11/04/18 at 09:00 Glucose (Glutose) 22.5 gm Q15M PRN PO DECREASED GLUCOSE; Start 11/04/18 at 09:00 Dextrose (D50w Syringe) 25 ml Q15M PRN IV DECREASED GLUCOSE; Start 11/04/18 at 09:00 Dextrose (D50w Syringe) 50 ml Q15M PRN IV DECREASED GLUCOSE; Start 11/04/18 at 09:00 Glucagon (Glucagen) 1 mg Q15M PRN IM DECREASED GLUCOSE; Start 11/04/18 at 09:00 Glucose (Glutose) 15 gm Q15M PRN BUCCAL DECREASED GLUCOSE; Start 11/04/18 at 09:00 Miscellaneous Information Patients own medicat... BID@10,16 XX Last administered on 11/10/18at 15:28; Admin Dose 1 EA; Start 11/04/18 at 16:00 Povidone Iodine (Povidone-Iodine) 1 applic BID TOP Last administered on 11/11/18at 09:04; Admin Dose 1 APPLIC; Start 11/05/18 at 21:00 Hydralazine HCl (Apresoline) 100 mg TID PO Last administered on 11/11/18at 09:01; Admin Dose 100 MG; Start 11/06/18 at 21:00 Diagnostic Test (Pha) (Accu-Chek) 1 ea 02 XX Last administered on 11/11/18at 02 :00; Admin Dose 1 EA; Start 11/07/18 at 02:00 Sodium Hypochlorite (Dakins Diluted (1/40)) 1 applic BID TP Last administered on 11/11/18 12:20; Admin Dose 1 APPLIC; Start 11/07/18 at 09:00 Aspirin (Aspirin) 325 mg DAILY PO Last administered on 11/11/18 09:03; Admin Dose 325 MG; Start 11/07/18 at 11:00 Insulin Glargine (Lantus) 30 units DAILY@0800 SC Last administered on 11/11/18 09:05; Admin Dose 30 UNITS; Start 11/08/18 at 08:00 Hydralazine HCl (Apresoline) 10 mg Q4H PRN IV sbp >160 Last administered on 11/08/18 08:59; Admin Dose 10 MG; Start 11/08/18 at 09:00 Morphine Sulfate (morphine) 2 mg Q4H PRN IV SEVERE PAIN LEVEL 7-10 Last administered on 11/10/18 01:20; Admin Dose 2 MG; Start 11/08/18 at 09:00 Daptomycin 500 mg/ Sodium Chloride 100 ml @ 200 mls/hr Q24H IVPB Last admini stered on 11/10/18 15:33; Admin Dose 200 MLS/HR; Start 11/08/18 at 16:00 Clopidogrel Bisulfate (plaVIX) 75 mg DAILY PO Last administered on 11/11/18 09:02; Admin Dose 75 MG; Start 11/10/18 at 08:00 Sodium Chloride 1,000 ml @ 40 mls/hr Q24H IV Last administered on 11/11/18 09:22; Admin Dose 40 MLS/HR; Start 11/11/18 at 08:00 Insulin Aspart (Novolog Insulin Pen) NOVOLOG *MILD* ALGORI... Q4 SC Last administered on 11/11/18 13:34; Admin Dose 3 UNIT; Start 11/11/18 at 09:00 Heparin Sodium (Porcine) (Heparin (1000 Units/ml)) 6,800 unit PER PROTOCOL PRN IV aPTT<47; Start 11/11/18 at 09:00 Heparin Sodium (Porcine) (Heparin (1000 Units/ml)) 3,400 unit PER PROTOCOL PRN IV aPTT<47-57; Start 11/11/18 at 09:00 Heparin Sodium (Porcine) 250 ml @ 15.5 mls/hr PER PROTOCOL IV Last administered on 11/11/18 09:19; Admin Dose 15.5 MLS/HR; Start 11/11/18 at 09:00 Famotidine (Pepcid) 20 mg DAILY NGT Last administered on 11/11/18 10:59; Admin Dose 20 MG; Start 11/11/18 at 09:30 Piperacillin Sod/ Tazobactam Sod 100 ml @ 200 mls/hr Q8 IVPB Last administered on 11/11/18 13:12; Admin Dose 200 MLS/HR; Start 11/11/18 at 14:00 Fentanyl 100 ml @ 2.5 mls/hr TITRATE IV Last administered on 11/11/18 11:09; Admin Dose 2.5 MLS/HR; Start 11/11/18 at 09:30 Midazolam HCl 50 ml @ 1 mls/hr TITRATE IV Last administered on 11/11/18 11:10; Admin Dose 5 MLS/HR; Start 11/11/18 at 10:30 Allergies: Coded Allergies: No Known Allergy (Unverified , 11/04/18) Social History Smoking Status: Never smoker Exam/Review of Systems Exam Vitals Vital Signs Date Temp Pulse Resp B/P (MAP) Pulse Ox O2 O2 Flow FiO2 Time Delivery Rate 11/11/18 77 12:00 11/11/18 21 96 100 09:40 11/11/18 154/78 Mechanical 06:45 (103) Ventilator 11/11/18 97.7 04:45 11/10/18 3.0 20:00 Intake and Output 11/10/18 11/10/18 11/11/18 1515:00 23:00 07:00 IntakeIntake Total 650 ml 380.11 ml OutputOutput Total 0 ml BalanceBalance 650 ml 380.11 ml Exam As per history of present illness Patient does have swelling of the penis and the scrotum. He also status post surgery on his left lower extremity and left groin. Results Result Diagram: 11/11/18 0532 11/11/18 0532 Results 24hrs Laboratory Tests Test 11/10/18 17:13 11/10/18 20:55 11/11/18 03:10 11/11/18 04:14 Bedside Glucose 201 213 236 H 221 H Test 11/11/18 05:32 11/11/18 05:33 11/11/18 07:23 11/11/18 08:41 White Blood Count 12.1 H Red Blood Count 2.58 L Hemoglobin 7.9 L Hematocrit 25.8 L Mean Corpuscular 100.0 Volume Mean Corpuscular 30.6 Hemoglobin Mean Corpuscular 30.6 L Hemoglobin Concen t Red Cell 13.3 Distribution Width Platelet Count 164 Mean Platelet 10.9 H Volume Immature 1.200 H Granulocytes % Neutrophils % 84.0 H Lymphocytes % 5.5 L Monocytes % 7.8 Eosinophils % 1.2 Basophils % 0.3 Nucleated Red 0.0 Blood Cells % Immature 0.140 H Granulocytes # Neutrophils # 10.1 H Lymphocytes # 0.7 L Monocytes # 0.9 Eosinophils # 0.1 Basophils # 0.0 Nucleated Red 0.0 Blood Cells # Sodium Level 134 L Potassium Level 5.0 Chloride Level 103 Carbon Dioxide 21 Level Anion Gap 10 Blood Urea 32 H Nitrogen Creatinine 1.44 H Est Glomerular Filtrat Rate mL/min Glucose Level 237 H Calcium Level 7.9 L Phosphorus Level 2.9 Magnesium Level 1.7 Prothrombin Time 13.6 Prothrombin Time 1.1 Ratio INR International 1.03 Normalized Ratio Activated 36.3 H Partial Thrombopl ast Time D-Dimer > 09422.00 H Troponin I 0.189 *H Blood Gas Blood arterial Specimen Source Arterial Blood 11/11/2018 7:59:3 Date Drawn 7 AM Arterial Blood pH 7.319 L (Temp corrected) Arterial Blood 41.4 pCO2 (Temp correct) Arterial Blood 81.8 pO2 (Temp corrected) Arterial Blood 20.8 L HCO3 Arterial Blood -4.9 L Base Excess Arterial Blood 94.7 L Oxygen Saturation Jeison Test ACCEPTAB Arterial Blood Right Radial Gas Puncture Site Arterial 0.3 Blood Carboxyhemo globin Arterial Blood 0.3 Methemoglobin Blood Gas A-a O2 589.8 H Differential Oxyhemoglobin 94.1 Percent Blood Gas 37.0 Temperature Blood Gas 16.0 Respiration Rate Blood Gas Actual 21 Respiration Rate Blood Gas VENT - AC Modality FiO2 100.0 Blood Gas Tidal 500.0 Volume Blood Gas Low 5.0 PEEP Setting Blood Gas TM Notified Whom Blood Gas 11/11/2018 8:09:3 Notified Time 4 AM Bedside Glucose 249 H Test 11/11/18 13:27 Bedside Glucose 222 H Medications Medication Current Medications Atorvastatin Calcium (Lipitor) 20 mg QHS PO Last administered on 11/10/18at 20:56; Admin Dose 20 MG; Start 11/04/18 at 21:00 Ergocalciferol (Drisdol) 50,000 unit Sa PO Last administered on 11/09/18at 09:28; Admin Dose 50,000 UNIT; Start 11/09/18 at 09:00 Gabapentin (Neurontin) 300 mg BID PO Last administered on 11/11/18at 09:02; Admin Dose 300 MG; Start 11/04/18 at 09:00 Miscellaneous Medication (Bystolic) 20 mg DAILY PO Last administered on 11/11/18at 09:03; Admin Dose 20 MG; Start 11/04/18 at 09:00; Status Hold Clonidine (Catapres) 0.1 mg Q6H PRN PO SBP>160; Start 11/04/18 at 09:00 IV Flush (NS 3 ml) 3 ml PER PROTOCOL IV ; Start 11/04/18 at 09:00 Ondansetron HCl (Zofran Inj) 4 mg Q6H PRN IV NAUSEA/VOMITING; Start 11/04/18 at 09:00 Acetaminophen (Tylenol Tab) 650 mg Q6H PRN PO .PAIN 1-3 OR TEMP; Start 11/04/18 at 09:00 Acetaminophen/ Hydrocodone Bitart ([place] (5/325)) 1 tab Q6H PRN PO .MOD PAIN 4- 6 Last administered on 11/10/18at 17:11; Admin Dose 1 TAB; Start 11/04/18 at 09:00 Docusate Sodium (Colace) 100 mg Q12H PRN PO .CONSTIPATION; Start 11/04/18 at 09:00 Miscellaneous Information 1 ea NOTE XX ; Start 11/04/18 at 09:00 Glucose (Glutose) 15 gm Q15M PRN PO DECREASED GLUCOSE; Start 11/04/18 at 09:00 Glucose (Glutose) 22.5 gm Q15M PRN PO DECREASED GLUCOSE; Start 11/04/18 at 09:00 Dextrose (D50w Syringe) 25 ml Q15M PRN IV DECREASED GLUCOSE; Start 11/04/18 at 09:00 Dextrose (D50w Syringe) 50 ml Q15M PRN IV DECREASED GLUCOSE; Start 11/04/18 at 09:00 Glucagon (Glucagen) 1 mg Q15M PRN IM DECREASED GLUCOSE; Start 11/04/18 at 09:00 Glucose (Glutose) 15 gm Q15M PRN BUCCAL DECREASED GLUCOSE; Start 11/04/18 at 09:00 Miscellaneous Information Patients own medicat... BID@10,16 XX Last administered on 11/10/18 15:28; Admin Dose 1 EA; Start 11/04/18 at 16:00 Povidone Iodine (Povidone-Iodine) 1 applic BID TOP Last administered on 11/11/18 09:04; Admin Dose 1 APPLIC; Start 11/05/18 at 21:00 Hydralazine HCl (Apresoline) 100 mg TID PO Last administered on 11/11/18 09:01; Admin Dose 100 MG; Start 11/06/18 at 21:00 Diagnostic Test (Pha) (Accu-Chek) 1 ea 02 XX Last administered on 11/11/18 02 :00; Admin Dose 1 EA; Start 11/07/18 at 02:00 Sodium Hypochlorite (Dakins Diluted (1/40)) 1 applic BID TP Last administered on 11/11/18 12:20; Admin Dose 1 APPLIC; Start 11/07/18 at 09:00 Aspirin (Aspirin) 325 mg DAILY PO Last administered on 11/11/18 09:03; Admin Dose 325 MG; Start 11/07/18 at 11:00 Insulin Glargine (Lantus) 30 units DAILY@0800 SC Last administered on 11/11/18 09:05; Admin Dose 30 UNITS; Start 11/08/18 at 08:00 Hydralazine HCl (Apresoline) 10 mg Q4H PRN IV sbp >160 Last administered on 11/08/18 08:59; Admin Dose 10 MG; Start 11/08/18 at 09:00 Morphine Sulfate (morphine) 2 mg Q4H PRN IV SEVERE PAIN LEVEL 7-10 Last administered on 11/10/18 01:20; Admin Dose 2 MG; Start 11/08/18 at 09:00 Daptomycin 500 mg/ Sodium Chloride 100 ml @ 200 mls/hr Q24H IVPB Last admini stered on 11/10/18 15:33; Admin Dose 200 MLS/HR; Start 11/08/18 at 16:00 Clopidogrel Bisulfate (plaVIX) 75 mg DAILY PO Last administered on 11/11/18 09:02; Admin Dose 75 MG; Start 11/10/18 at 08:00 Sodium Chloride 1,000 ml @ 40 mls/hr Q24H IV Last administered on 11/11/18 09:22; Admin Dose 40 MLS/HR; Start 11/11/18 at 08:00 Insulin Aspart (Novolog Insulin Pen) NOVOLOG *MILD* ALGORI... Q4 SC Last administered on 11/11/18 13:34; Admin Dose 3 UNIT; Start 11/11/18 at 09:00 Heparin Sodium (Porcine) (Heparin (1000 Units/ml)) 6,800 unit PER PROTOCOL PRN IV aPTT<47; Start 11/11/18 at 09:00 Heparin Sodium (Porcine) (Heparin (1000 Units/ml)) 3,400 unit PER PROTOCOL PRN IV aPTT<47-57; Start 11/11/18 at 09:00 Heparin Sodium (Porcine) 250 ml @ 15.5 mls/hr PER PROTOCOL IV Last administered on 11/11/18 09:19; Admin Dose 15.5 MLS/HR; Start 11/11/18 at 09:00 Famotidine (Pepcid) 20 mg DAILY NGT Last administered on 11/11/18 10:59; Admin Dose 20 MG; Start 11/11/18 at 09:30 Piperacillin Sod/ Tazobactam Sod 100 ml @ 200 mls/hr Q8 IVPB Last administered on 11/11/18 13:12; Admin Dose 200 MLS/HR; Start 11/11/18 at 14:00 Fentanyl 100 ml @ 2.5 mls/hr TITRATE IV Last administered on 11/11/18 11:09; Admin Dose 2.5 MLS/HR; Start 11/11/18 at 09:30 Midazolam HCl 50 ml @ 1 mls/hr TITRATE IV Last administered on 11/11/18 11:10; Admin Dose 5 MLS/HR; Start 11/11/18 at 10:30 JAYLEEN BUNN MD Nov 11, 2018 14:09
[2018-11-11] MEDS: DAPTOMYCIN 500 MG in SOD CHLORIDE 0.9% 100 ML IVPB SCH (16:16)
[2018-11-11] MEDS ORDERED: EPINEPHrine 0.1 MG/ML SYG IV SCH (18:00)
[2018-11-11] MEDS: ALBUTEROL HFA 8 GM INHALER INH SCH (19:23)
[2018-11-11] MEDS: IPRATROPIUM (HFA) 12.9 GM INHALER INH SCH (19:27)
[2018-11-11] MEDS: ATORVASTATIN 20 MG TAB PO SCH (21:06)
[2018-11-11] MEDS ORDERED: ATROPINE 1 MG INJ IV PRN (23:00)
[2018-11-12] VITALS (82 sets, daily range): BP systolic 94–132; BP diastolic 48–75; PULSE 69–86; RESP 10–27
[2018-11-12] MEDS: INSULIN ASPART [NOVOLOG] 3 ML PEN SC SCH ×6 (01:11→21:39)
[2018-11-12] MEDS: IPRATROPIUM (HFA) 12.9 GM INHALER INH SCH ×4 (01:23→19:13)
[2018-11-12] MEDS: ALBUTEROL HFA 8 GM INHALER INH SCH ×4 (01:24→19:13)
[2018-11-12] MEDS: ACCUCHECK AT 2AM (Patients on SS coverage) XX SCH (01:56)
[2018-11-12] MEDS: MIDAZOLAM (DRIP) 50 mg/50 mL 50 ML IV SCH ×2 (03:59→21:35)
[2018-11-12] MEDS ORDERED: NA BICARBONATE 8.4% 50 ML SYG ONE (04:00)
[2018-11-12] MEDS ORDERED: ETOMIDATE 20 MG INJ ONE (04:00)
[2018-11-12] MEDS ORDERED: EPINEPHrine 0.1 MG/ML SYG ONE (04:00)
[2018-11-12] MEDS ORDERED: AMIODARONE 150 MG INJ ONE (04:00)
[2018-11-12] MEDS ORDERED: SUCCINYLCHOLINE CHLORIDE 100 MG/5 ML SYG IV ONE (04:00)
[2018-11-12] MEDS: HEPARIN 25000 UNITS/250 ML 250 ML IV SCH (04:06)
[2018-11-12] MEDS: PIPER-TAZO 3.375 GM IV (PMX) 100 ML IVPB SCH ×3 (05:09→21:43)
--- NOTE | 2018-11-12 08:00 | CONS ---
Consult Date/Type/Reason Admit Date/Time Nov 04, 2018 at 07:34 Initial Consult Date 11/11/18 Type of Consultation: Urology Reason for Consultation Urinary retention Requesting Provider: KARL WOOD MD Date/Time of Note DATE: 11/12/18 TIME: 07:58 Subjective Patient still on a respirator and has the indwelling Vora catheter. Objective Vitals Vital Signs Date Temp Pulse Resp B/P (MAP) Pulse Ox O2 O2 Flow FiO2 Time Delivery Rate 11/12/18 74 15 113/58 98 06:15 (76) 11/12/18 Mechanical 06:00 Ventilator 11/12/18 100 05:50 11/12/18 98.8 04:00 11/10/18 3.0 20:00 Intake and Output 11/11/18 11/11/18 11/12/18 1515:00 23:00 07:00 IntakeIntake Total 627.5 ml 638.0 ml 690.0 ml OutputOutput Total 1140 ml 1370 ml 199 ml BalanceBalance -512.5 ml -732.0 ml 491.0 ml Exam The Vora catheter is draining clear urine. He does have swelling of the penis and the scrotum Results/Medications Result Diagram: 11/12/18 0317 11/12/18 0317 Results 24 hrs Laboratory Tests Test 11/11/18 08:41 11/11/18 13:27 11/11/18 15:12 11/11/18 17:05 Bedside Glucose 249 H 222 H 184 Activated > 180.0 *H Partial Thromboplast Time Creatine Kinase 213 H Creatine Kinase 1.7 Index Creatinine Kinase MB 3.63 H (Mass) Troponin I 0.527 *H Test 11/11/18 18:00 11/11/18 21:04 11/11/18 21:06 11/12/18 00:50 Activated 50.7 H 80.9 *H Partial Thromboplast Time Creatine Kinase 165 Creatine Kinase 1.5 Index Creatinine Kinase MB 2.54 H (Mass) Troponin I 0.404 *H Bedside Glucose 182 Test 11/12/18 01:09 11/12/18 01:56 11/12/18 03:17 11/12/18 05:03 Bedside Glucose 165 164 192 White Blood Count 9.7 Red Blood Count 2.42 L Hemoglobin 7.4 L Hematocrit 23.6 L Mean Corpuscular 97.5 Volume Mean Corpuscular 30.6 Hemoglobin Mean Corpuscular 31.4 L Hemoglobin Concent Red Cell 13.4 Distribution Width Platelet Count 196 Mean Platelet Volume 11.1 H Immature 0.500 H Granulocytes % Neutrophils % 69.2 Lymphocytes % 14.6 L Monocytes % 10.3 Eosinophils % 4.4 Basophils % 1.0 Nucleated Red Blood 0.0 Cells % Immature 0.050 H Granulocytes # Neutrophils # 6.7 Lymphocytes # 1.4 Monocytes # 1.0 H Eosinophils # 0.4 Basophils # 0.1 Nucleated Red Blood 0.0 Cells # Sodium Level 136 Potassium Level 4.2 Chloride Level 106 Carbon Dioxide Level 23 Anion Gap 7 Blood Urea Nitrogen 31 H Creatinine 1.32 H Est Glomerular Filtrat Rate mL/min Glucose Level 161 Calcium Level 8.0 L Phosphorus Level 2.8 Magnesium Level 2.2 Creatine Kinase 159 Creatine Kinase 1.3 Index Creatinine Kinase MB 2.05 (Mass) Troponin I 0.274 *H Home Meds Active Scripts Silver Sulfadiazine* (Silvadene*) 1% - 20 Gm Cream.gm., 1 APPLIC TOP DAILY, #1 TUB Prov:JESSIE WONG MD 06/12/18 Amoxicillin-Clavulanate K* (Augmentin*) 875 Mg Tab, 875 MG PO BID, #28 TAB Prov:AMANDA GOMEZ MD 06/08/14 Reported Medications Insulin Aspart (Novolog Mix (70/30)) 100 Units/Ml Soln, 28 SC with diinner, VIAL 11/04/18 Insulin Aspart (Novolog Mix (70/30)) 100 Units/Ml Soln, 38 SC WITH BREAKFAST, VIAL 11/04/18 Benazepril Hcl* (Benazepril Hcl*) 40 Mg Tablet, 40 MG PO DAILY, #30 TAB 11/04/18 Ergocalciferol (Vitamin D2) (VITAMIN D2) 50,000 Unit Capsule, 18238 UNIT PO weekly for saturdays, CAP 11/04/18 Omeprazole* (Omeprazole*) 20 Mg Capsule.dr, 20 MG PO DAILY, #30 CAP 11/04/18 Aspirin* (Aspirin* EC) 81 Mg Tablet.dr, 81 MG PO DAILY, TAB 11/04/18 Gabapentin* (Gabapentin*) 300 Mg Capsule, 300 MG PO BID, #60 CAP 11/04/18 Nebivolol Hcl* (Bystolic*) 20 Mg Tablet, 20 MG PO DAILY, #30 TAB 11/04/18 Atorvastatin Calcium* (Atorvastatin Calcium*) 20 Mg Tablet, 20 MG PO QHS, #30 TAB 11/04/18 Sulfasalazine (Azulfidine) 500 Mg Tab, 1000 MG PO TID, TAB 06/02/14 Medications Current Medications Atorvastatin Calcium (Lipitor) 20 mg QHS PO Last administered on 11/11/18at 21:06; Admin Dose 20 MG; Start 11/04/18 at 21:00 Ergocalciferol (Drisdol) 50,000 unit Sa PO Last administered on 11/09/18at 09:28; Admin Dose 50,000 UNIT; Start 11/09/18 at 09:00 Gabapentin (Neurontin) 300 mg BID PO Last administered on 11/11/18at 21:06; Admin Dose 300 MG; Start 11/04/18 at 09:00 Miscellaneous Medication (Bystolic) 20 mg DAILY PO Last administered on 11/11/18at 09:03; Admin Dose 20 MG; Start 11/04/18 at 09:00; Status Hold Clonidine (Catapres) 0.1 mg Q6H PRN PO SBP>160; Start 11/04/18 at 09:00 IV Flush (NS 3 ml) 3 ml PER PROTOCOL IV ; Start 11/04/18 at 09:00 Ondansetron HCl (Zofran Inj) 4 mg Q6H PRN IV NAUSEA/VOMITING; Start 11/04/18 at 09:00 Acetaminophen (Tylenol Tab) 650 mg Q6H PRN PO .PAIN 1-3 OR TEMP; Start 11/04/18 at 09:00 Acetaminophen/ Hydrocodone Bitart ([place] (5/325)) 1 tab Q6H PRN PO .MOD PAIN 4- 6 Last administered on 11/10/18at 17:11; Admin Dose 1 TAB; Start 11/04/18 at 09:00 Docusate Sodium (Colace) 100 mg Q12H PRN PO .CONSTIPATION; Start 11/04/18 at 09:00 Miscellaneous Information 1 ea NOTE XX ; Start 11/04/18 at 09:00 Glucose (Glutose) 15 gm Q15M PRN PO DECREASED GLUCOSE; Start 11/04/18 at 09:00 Glucose (Glutose) 22.5 gm Q15M PRN PO DECREASED GLUCOSE; Start 11/04/18 at 09:00 Dextrose (D50w Syringe) 25 ml Q15M PRN IV DECREASED GLUCOSE; Start 11/04/18 at 09:00 Dextrose (D50w Syringe) 50 ml Q15M PRN IV DECREASED GLUCOSE; Start 11/04/18 at 09:00 Glucagon (Glucagen) 1 mg Q15M PRN IM DECREASED GLUCOSE; Start 11/04/18 at 09:00 Glucose (Glutose) 15 gm Q15M PRN BUCCAL DECREASED GLUCOSE; Start 11/04/18 at 09:00 Miscellaneous Information Patients own medicat... BID@10,16 XX Last administered on 11/10/18 15:28; Admin Dose 1 EA; Start 11/04/18 at 16:00 Povidone Iodine (Povidone-Iodine) 1 applic BID TOP Last administered on 11/11/18 21:09; Admin Dose 1 APPLIC; Start 11/05/18 at 21:00 Hydralazine HCl (Apresoline) 100 mg TID PO Last administered on 11/11/18 21:06; Admin Dose 100 MG; Start 11/06/18 at 21:00 Diagnostic Test (Pha) (Accu-Chek) 1 ea 02 XX Last administered on 11/11/18 02:00; Admin Dose 1 EA; Start 11/07/18 at 02:00 Sodium Hypochlorite (Dakins Diluted (1/40)) 1 applic BID TP Last administered on 11/11/18 21:08; Admin Dose 1 APPLIC; Start 11/07/18 at 09:00 Aspirin (Aspirin) 325 mg DAILY PO Last administered on 11/11/18 09:03; Admin Dose 325 MG; Start 11/07/18 at 11:00 Insulin Glargine (Lantus) 30 units DAILY@0800 SC Last administered on 11/11/18 09:05; Admin Dose 30 UNITS; Start 11/08/18 at 08:00 Hydralazine HCl (Apresoline) 10 mg Q4H PRN IV sbp >160 Last administered on 11/08/18at 08:59; Admin Dose 10 MG; Start 11/08/18 at 09:00 Morphine Sulfate (morphine) 2 mg Q4H PRN IV SEVERE PAIN LEVEL 7-10 Last administered on 11/10/18 01:20; Admin Dose 2 MG; Start 11/08/18 at 09:00 Daptomycin 500 mg/ Sodium Chloride 100 ml @ 200 mls/hr Q24H IVPB Last administered on 11/11/18 16:16; Admin Dose 200 MLS/HR; Start 11/08/18 at 16:00 Clopidogrel Bisulfate (plaVIX) 75 mg DAILY PO Last administered on 11/11/18 09:02; Admin Dose 75 MG; Start 11/10/18 at 08:00 Sodium Chloride 1,000 ml @ 40 mls/hr Q24H IV Last administered on 11/11/18 09:22; Admin Dose 40 MLS/HR; Start 11/11/18 at 08:00 Insulin Aspart (Novolog Insulin Pen) NOVOLOG *MILD* ALGORI... Q4 SC Last administered on 11/12/18 05:07; Admin Dose 2 UNIT; Start 11/11/18 at 09:00 Heparin Sodium (Porcine) (Heparin (1000 Units/ml)) 6,800 unit PER PROTOCOL PRN IV aPTT<47; Start 11/11/18 at 09:00 Heparin Sodium (Porcine) (Heparin (1000 Units/ml)) 3,400 unit PER PROTOCOL PRN IV aPTT<47-57; Start 11/11/18 at 09:00 Heparin Sodium (Porcine) 250 ml @ 15.5 mls/hr PER PROTOCOL IV Last administered on 11/12/18 04:06; Admin Dose 13 MLS/HR; Start 11/11/18 at 09:00 Famotidine (Pepcid) 20 mg DAILY NGT Last administered on 11/11/18at 10:59; Admin Dose 20 MG; Start 11/11/18 at 09:30 Piperacillin Sod/ Tazobactam Sod 100 ml @ 200 mls/hr Q8 IVPB Last administered on 11/12/18 05:09; Admin Dose 200 MLS/HR; Start 11/11/18 at 14:00 Fentanyl 100 ml @ 2.5 mls/hr TITRATE IV Last administered on 11/11/18at 11:09; Admin Dose 2.5 MLS/HR; Start 11/11/18 at 09:30 Midazolam HCl 50 ml @ 1 mls/hr TITRATE IV Last administered on 11/12/18at 03:59; Admin Dose 3 MLS/HR; Start 11/11/18 at 10:30 Albuterol (Ventolin Hfa) 2 puff Q6H RESP THERAPY INH Last administered on 11/12/18at 07:56; Admin Dose 2 PUFF; Start 11/11/18 at 20:00 Ipratropium [place] (Atrovent Hfa) 4 puff Q6H RESP THERAPY INH Last administered on 11/12/18at 07:56; Admin Dose 4 PUFF; Start 11/11/18 at 20:00 Epinephrine 2 mg ONCE IV ; Start 11/11/18 at 18:00; Stop 11/12/18 at 18:01 Atropine Sulfate (Atropine) 0.5 mg PRN PRN IV SYMPTOMATIC BRADYCARDIA; Start 11/11/18 at 23:00 Assessment/Plan Hospital Course (Demo Recall) 72-year-old male who coded last night and nursing staff were not able to insert the Vora catheter. A urological consultation was therefore requested patient is known to have the following problems: left fifth toe gangrenous ulcer -Patient status post left femoral endarterectomy, iliofemoral bypass and femoral to posterior tibial bypass done on November 08, 2018 -Status post aortogram and plan for Fem-tibial bypass today Poorly controlled DMII Acute kidney injury -Renal function worsened secondary to contrast-induced nephropathy. Hyperkalemia Essential HTN Peripheral neuropathy Dyslipidemia Chronic anemia Presently the patient is intubated in the intensive care urine and on a respirator. The Vora catheter is draining clear urine. The patient does have penile and scrotal edema. We will keep the scrotum and the penis elevated on a towel all the time. JAYLEEN BUNN MD Nov 12, 2018 08:00
[2018-11-12] MEDS ORDERED: FUROSEMIDE 40 MG INJ IV ONE ×2 (08:30→20:30)
--- NOTE | 2018-11-12 08:54 | PN ---
DATE: 11/12/2018 SUBJECTIVE: The patient remains critically on full ventilatory support. The patient had a Vora cat heter placed yesterday by urology. No other events noted. No hemoptysis, hematemesis, hematochezia. OBJECTIVE: VITAL SIGNS: Blood pressure is 132/76, respirations 16, pulse 72, temperature 98.6. HEENT: Head is normocephalic. NECK: Supple. HEART: Regular rate. LUNGS: Show diminished breath sounds at the base. ABDOMEN: Soft, nontender to palpation without rebound or guarding. EXTREMITIES: Negative for clubbing or cyanosis. No edema. DERMATOLOGIC: No rashes. MUSCULOSKELETAL: No joint effusion. NEUROLOGIC: No change in exam. MEDICATIONS: The patient's medication have been reviewed. LABORATORY DATA: Has been reviewed. IMAGING STUDIES: Have been reviewed. ASSESSMENT AND PLAN: 1. Nonoliguric acute kidney injury with previous baseline creatinine of 1.0 mg/dL. Etiology of acut e kidney injury is secondary to hemodynamics, possible contrast-associated nephropathy. The patient' s renal function has stabilized in the last 24 hours. At this point, continue current treatment plan , supportive care, renally dose all meds. We will check a urinalysis. 2. Volume overload. The patient has noted pulmonary congestion. Etiology is likely secondary to ca rdiac arrest, IV fluid resuscitation, possible component of diastolic heart failure. Plan is to disc ontinue IV fluids. We will give the patient diuretic therapy, monitor I's and O's, electrolytes and renal function closely. 3. Anemia. Monitor hemoglobin and hematocrit levels. 4. Mineral bone disorder. Monitor calcium and phosphorus levels. 5. Ventilatory dependent respiratory failure. Vent settings and ABG was reviewed. Continue to roby tor. Follow up with pulmonary. 6. Status post cardiopulmonary arrest. Etiology may be respiratory. We will continue to monitor. Follow up with pulmonary. Follow up with cardiology. 7. Elevated troponin, possible non-ST elevation myocardial infarction type 2. Continue current [facility] management. Follow up with cardiology. 8. Arrhythmia. Continue to monitor. 9. Peripheral vascular disease, status post left femoral endarterectomy, status post iliofemoral byp ass. Continue to monitor. Follow up with vascular surgery. 10. Hypertension. 11. Dyslipidemia. Continue statin therapy. 12. Neuropathy. 13. Urosepsis. Continue antibiotic regimen. Please note I spent over 30 minutes of critical care time with this patient. Dictated By: JEAN CLAUDE LARIOS DO NR/BOBO Conf#: [id number] DID#: [id number] CC: JAYLEEN BUNN MD; TOMASA SCOTT; KARL WOOD MD;*EndCC*
[2018-11-12] MEDS: ASPIRIN 325 MG TAB PO SCH (09:12)
[2018-11-12] MEDS: GABAPENTIN 300 MG CAP PO SCH ×2 (09:12→21:10)
[2018-11-12] MEDS: CLOPIDOGREL 75 MG TAB PO SCH (09:12)
[2018-11-12] MEDS: FAMOTIDINE 20 MG TAB NGT SCH (09:12)
[2018-11-12] MEDS: POVIDONE IODINE 10% 28.4 GM OINT TOP SCH ×2 (09:13→21:00)
[2018-11-12] MEDS: DAKINS 0.0125%(1/40) 473 ML SOLUTION TP SCH (09:13)
--- NOTE | 2018-11-12 09:14 | PN ---
Date/Time of Note Date/Time of Note DATE: 11/12/18 TIME: 09:04 Assessment/Plan VTE Prophylaxis Risk score (from Ns)>0 risk: 9 SCD applied (from [facility] [place]): No SCD contraindicated: other Pharmacological prophylaxis: heparin Lines/Catheters IV Catheter Type (from [facility]): Peripheral IV Urinary Cath still in place: Yes (placed by Dr. Pimentel) Reason Cath still needed: urinary retention Assessment/Plan Assessment/Plan 1. Acute hypoxic respiratory failure - remains on vent support and will wean FIO2 as tolerated. Currently requiring FIO2 90% - Repeat CXR and ABG this am - Pulmonology on board for vent management 2. Cardiac arrest s/p ROSC - still with episodes of bradycardia - Cardiology on board and appreciate recommendations - ECHO with preserved EF - trops trending downward 3. Bradycardia - with episode as low as 26 overnight - holding Bystolic - has been stable since this am 4. left fifth toe gangrenous ulcer - ID on board and appreciate consultation. Will continue current antibiotics - Continue local wound care - Podiatry on board and will plan for further amputation in the near future once stable 5. Severe peripheral vascular disease - s/p left femoral endarterectomy, iliofemoral bypass and femoral to posterior tibial bypass done on November 08, 2018 - Vascular surgery consultation appreciated 6. Diabetes Mellitus - A1c noted - Basal/bolus insulin - increasing ISS to moderate 5. Acute kidney injury- improving - nephrology consultation appreciated and most likely due to contrast induced nephropathy as well as hemodynamic. Improving - continue monitoring and avoid nephrotoxic agents 6. Essential HTN - holding home medications at this time - BP stable 7. Peripheral neuropathy - cont. gabapentin 8. HLD - On statin 9. Chronic anemia - hgb dropped this am and repeat at 11am given on heparin drip - Stable H&H. Monitor 10. Urinary retention - Urology on board and appreciate recommendations. continue schneider care for now 11. Disposition - Continue weaning down FIO2 as tolerated >35 minutes of critical care time spent with patient Result Diagram: 11/12/1831611/12/18316 Results 24hrs Laboratory Tests Test 11/11/18 13:27 11/11/18 15:12 11/11/18 17:05 11/11/18 18:00 Bedside Glucose 222 H 184 Activated > 180.0 *H 50.7 H Partial Thromboplast Time Creatine Kinase 213 H Creatine Kinase 1.7 Index Creatinine Kinase MB 3.63 H (Mass) Troponin I 0.527 *H Test 11/11/18 21:04 11/11/18 21:06 11/12/18 00:50 11/12/18 01:09 Creatine Kinase 165 Creatine Kinase 1.5 Index Creatinine Kinase MB 2.54 H (Mass) Troponin I 0.404 *H Bedside Glucose 182 165 Activated 80.9 *H Partial Thromboplast Time Test 11/12/18 01:56 11/12/18 03:17 11/12/18 05:03 11/12/18 08:00 Bedside Glucose 164 192 White Blood Count 9.7 Red Blood Count 2.42 L Hemoglobin 7.4 L Hematocrit 23.6 L Mean Corpuscular 97.5 Volume Mean Corpuscular 30.6 Hemoglobin Mean Corpuscular 31.4 L Hemoglobin Concent Red Cell 13.4 Distribution Width Platelet Count 196 Mean Platelet Volume 11.1 H Immature 0.500 H Granulocytes % Neutrophils % 69.2 Lymphocytes % 14.6 L Monocytes % 10.3 Eosinophils % 4.4 Basophils % 1.0 Nucleated Red Blood 0.0 Cells % Immature 0.050 H Granulocytes # Neutrophils # 6.7 Lymphocytes # 1.4 Monocytes # 1.0 H Eosinophils # 0.4 Basophils # 0.1 Nucleated Red Blood 0.0 Cells # Sodium Level 136 Potassium Level 4.2 Chloride Level 106 Carbon Dioxide Level 23 Anion Gap 7 Blood Urea Nitrogen 31 H Creatinine 1.32 H Est Glomerular Filtrat Rate mL/min Glucose Level 161 Calcium Level 8.0 L Phosphorus Level 2.8 Magnesium Level 2.2 Creatine Kinase 159 Creatine Kinase 1.3 Index Creatinine Kinase MB 2.05 (Mass) Troponin I 0.274 *H Activated 93.7 *H Partial Thromboplast Time Test 11/12/18 09:00 Bedside Glucose 201 Subjective 24 Hr Interval Summary Free Text/Dictation Patient has episodes of bradycardia overnight and cardio make aware. Patient was following commands during sedation vacation. Still requiring high FIO2 requirement. No acute distress noted. Exam/Review of Systems Exam Vitals Vital Signs Date Temp Pulse Resp B/P (MAP) Pulse Ox O2 O2 Flow FiO2 Time Delivery Rate 11/12/18 74 15 113/58 98 06:15 (76) 11/12/18 Mechanical 06:00 Ventilator 11/12/18 100 05:50 11/12/18 98.8 04:00 11/10/18 3.0 20:00 Intake and Output 11/11/18 11/11/18 11/12/18 1515:00 23:00 07:00 IntakeIntake Total 627.5 ml 638.0 ml 690.0 ml OutputOutput Total 1140 ml 1370 ml 199 ml BalanceBalance -512.5 ml -732.0 ml 491.0 ml Exam General: intubated and sedated. no acute distress Head: Normocephalic atraumatic Eyes: EOMI, pupils reactive to light Neck: Supple Respiratory: Coarse bilaterally at bases, clear upper lobes. no wheezing appreciated Cardiovascular: S1, S2, regular rate and rhythm, no obvious murmurs Gastrointestinal: soft, protuberant, non tender palpation diffusely, bowel sound s heard. Skin: No new skin lesions, LLE bandage clean and dry, mild warmth appreciated Results Results 24hrs Laboratory Tests Test 11/11/18 13:27 11/11/18 15:12 11/11/18 17:05 11/11/18 18:00 Bedside Glucose 222 H 184 Activated > 180.0 *H 50.7 H Partial Thromboplast Time Creatine Kinase 213 H Creatine Kinase 1.7 Index Creatinine Kinase MB 3.63 H (Mass) Troponin I 0.527 *H Test 11/11/18 21:04 11/11/18 21:06 11/12/18 00:50 11/12/18 01:09 Creatine Kinase 165 Creatine Kinase 1.5 Index Creatinine Kinase MB 2.54 H (Mass) Troponin I 0.404 *H Bedside Glucose 182 165 Activated 80.9 *H Partial Thromboplast Time Test 11/12/18 01:56 11/12/18 03:17 11/12/18 05:03 11/12/18 08:00 Bedside Glucose 164 192 White Blood Count 9.7 Red Blood Count 2.42 L Hemoglobin 7.4 L Hematocrit 23.6 L Mean Corpuscular 97.5 Volume Mean Corpuscular 30.6 Hemoglobin Mean Corpuscular 31.4 L Hemoglobin Concent Red Cell 13.4 Distribution Width Platelet Count 196 Mean Platelet Volume 11.1 H Immature 0.500 H Granulocytes % Neutrophils % 69.2 Lymphocytes % 14.6 L Monocytes % 10.3 Eosinophils % 4.4 Basophils % 1.0 Nucleated Red Blood 0.0 Cells % Immature 0.050 H Granulocytes # Neutrophils # 6.7 Lymphocytes # 1.4 Monocytes # 1.0 H Eosinophils # 0.4 Basophils # 0.1 Nucleated Red Blood 0.0 Cells # Sodium Level 136 Potassium Level 4.2 Chloride Level 106 Carbon Dioxide Level 23 Anion Gap 7 Blood Urea Nitrogen 31 H Creatinine 1.32 H Est Glomerular Filtrat Rate mL/min Glucose Level 161 Calcium Level 8.0 L Phosphorus Level 2.8 Magnesium Level 2.2 Creatine Kinase 159 Creatine Kinase 1.3 Index Creatinine Kinase MB 2.05 (Mass) Troponin I 0.274 *H Activated 93.7 *H Partial Thromboplast Time Test 11/12/18 09:00 Bedside Glucose 201 Medications Medication Current Medications Atorvastatin Calcium (Lipitor) 20 mg QHS PO Last administered on 11/11/18at 21:06; Admin Dose 20 MG; Start 11/04/18 at 21:00 Ergocalciferol (Drisdol) 50,000 unit Sa PO Last administered on 11/09/18 09:28; Admin Dose 50,000 UNIT; Start 11/09/18 at 09:00 Gabapentin (Neurontin) 300 mg BID PO Last administered on 11/11/18 21:06; Admin Dose 300 MG; Start 11/04/18 at 09:00 Miscellaneous Medication (Bystolic) 20 mg DAILY PO Last administered on 09:03; Admin Dose 20 MG; Start 11/04/18 at 09:00; Status Hold Clonidine (Catapres) 0.1 mg Q6H PRN PO SBP>160; Start 11/04/18 at 09:00 IV Flush (NS 3 ml) 3 ml PER PROTOCOL IV ; Start 11/04/18 at 09:00 Ondansetron HCl (Zofran Inj) 4 mg Q6H PRN IV NAUSEA/VOMITING; Start 11/04/18 at 09:00 Acetaminophen (Tylenol Tab) 650 mg Q6H PRN PO .PAIN 1-3 OR TEMP; Start 11/04/18 at 09:00 Acetaminophen/ Hydrocodone Bitart ([place] (5/325)) 1 tab Q6H PRN PO .MOD PAIN 4- 6 Last administered on 11/10/18at 17:11; Admin Dose 1 TAB; Start 11/04/18 at 09:00 Docusate Sodium (Colace) 100 mg Q12H PRN PO .CONSTIPATION; Start 11/04/18 at 09:00 Miscellaneous Information 1 ea NOTE XX ; Start 11/04/18 at 09:00 Glucose (Glutose) 15 gm Q15M PRN PO DECREASED GLUCOSE; Start 11/04/18 at 09:00 Glucose (Glutose) 22.5 gm Q15M PRN PO DECREASED GLUCOSE; Start 11/04/18 at 09:00 Dextrose (D50w Syringe) 25 ml Q15M PRN IV DECREASED GLUCOSE; Start 11/04/18 at 09:00 Dextrose (D50w Syringe) 50 ml Q15M PRN IV DECREASED GLUCOSE; Start 11/04/18 at 09:00 Glucagon (Glucagen) 1 mg Q15M PRN IM DECREASED GLUCOSE; Start 11/04/18 at 09:00 Glucose (Glutose) 15 gm Q15M PRN BUCCAL DECREASED GLUCOSE; Start 11/04/18 at 09:00 Miscellaneous Information Patients own medicat... BID@,16 XX Last administered on 11/10/18at 15:28; Admin Dose 1 EA; Start 11/04/18 at 16:00 Povidone Iodine (Povidone-Iodine) 1 applic BID TOP Last administered on 11/11/18 21:09; Admin Dose 1 APPLIC; Start 11/05/18 at 21:00 Hydralazine HCl (Apresoline) 100 mg TID PO Last administered on 11/11/18 21:06; Admin Dose 100 MG; Start 11/06/18 at 21:00 Diagnostic Test (Pha) (Accu-Chek) 1 ea 02 XX Last administered on 11/11/18at 02:00; Admin Dose 1 EA; Start 11/07/18 at 02:00 Sodium Hypochlorite (Dakins Diluted (40)) 1 applic BID TP Last administered on 11/11/18 21:08; Admin Dose 1 APPLIC; Start 11/07/18 at 09:00 Aspirin (Aspirin) 325 mg DAILY PO Last administered on 11/11/18 09:03; Admin Dose 325 MG; Start 11/07/18 at 11:00 Insulin Glargine (Lantus) 30 units DAILY@0800 SC Last administered on 11/11/18 09:05; Admin Dose 30 UNITS; Start 11/08/18 at 08:00 Hydralazine HCl (Apresoline) 10 mg Q4H PRN IV sbp >160 Last administered on 11/08/18 08:59; Admin Dose 10 MG; Start 11/08/18 at 09:00 Morphine Sulfate (morphine) 2 mg Q4H PRN IV SEVERE PAIN LEVEL 7-10 Last administered on 11/10/18 01:20; Admin Dose 2 MG; Start 11/08/18 at 09:00 Daptomycin 500 mg/ Sodium Chloride 100 ml @ 200 mls/hr Q24H IVPB Last administered on 11/11/18 16:16; Admin Dose 200 MLS/HR; Start 11/08/18 at 16:00 Clopidogrel Bisulfate (plaVIX) 75 mg DAILY PO Last administered on 11/11/18 09:02; Admin Dose 75 MG; Start 11/10/18 at 08:00 Heparin Sodium (Porcine) (Heparin (1000 Units/ml)) 6,800 unit PER PROTOCOL PRN IV aPTT<47; Start 11/11/18 at 09:00 Heparin Sodium (Porcine) (Heparin (1000 Units/ml)) 3,400 unit PER PROTOCOL PRN IV aPTT<47-57; Start 11/11/18 at 09:00 Heparin Sodium (Porcine) 250 ml @ 15.5 mls/hr PER PROTOCOL IV Last administered on 11/12/18 04:06; Admin Dose 13 MLS/HR; Start 11/11/18 at 09:00 Famotidine (Pepcid) 20 mg DAILY NGT Last administered on 11/11/18 10:59; Admin Dose 20 MG; Start 11/11/18 at 09:30 Piperacillin Sod/ Tazobactam Sod 100 ml @ 200 mls/hr Q8 IVPB Last administered on 11/12/18 05:09; Admin Dose 200 MLS/HR; Start 11/11/18 at 14:00 Fentanyl 100 ml @ 2.5 mls/hr TITRATE IV Last administered on 11/11/18 11:09; Admin Dose 2.5 MLS/HR; Start 11/11/18 at 09:30 Midazolam HCl 50 ml @ 1 mls/hr TITRATE IV Last administered on 11/12/18 03:59; Admin Dose 3 MLS/HR; Start 11/11/18 at 10:30 Albuterol (Ventolin Hfa) 2 puff Q6H RESP THERAPY INH Last administered on 11/12/18at 07:56; Admin Dose 2 PUFF; Start 11/11/18 at 20:00 Ipratropium [place] (Atrovent Hfa) 4 puff Q6H RESP THERAPY INH Last administered on 11/12/18at 07:56; Admin Dose 4 PUFF; Start 11/11/18 at 20:00 Atropine Sulfate (Atropine) 0.5 mg PRN PRN IV SYMPTOMATIC BRADYCARDIA; Start 11/11/18 at 23:00 Miscellaneous Information (* Miscellaneous Pharmacy Order) Discontinue current oral sulfonylur... ONCE ONCE XX ; Start 11/12/18 at 09:00; Stop 11/12/18 at 09:01; Status UNV Diagnostic Test (Pha) (Accu-Chek) 1 XX ; Start 11/13/18 at 02:00; Status UNV Miscellaneous Information (* Miscellaneous Pharmacy Order) HYPOGLYCEMIA PROTOCOL w... ONCE ONCE XX ; Start 11/12/18 at 09:00; Stop 11/12/18 at 09:01; Status UNV Insulin Aspart (Novolog Insulin Pen) NOVOLOG *MODERATE* ALGORI... Q4 SC ; Start 11/12/18 at 09:00; Status UNV Miscellaneous Information (* Miscellaneous Pharmacy Order) Discontinue all previ... ONCE ONCE XX ; Start 11/12/18 at 09:00; Stop 11/12/18 at 09:01; Status UNV KARL WOOD MD Nov 12, 2018 09:14
[2018-11-12] MEDS: INSULIN GLARGINE [LANTus] (100 UNITS/ML) SYG SC SCH (09:24)
--- NOTE | 2018-11-12 12:24 | CONS ---
Consult Date/Type/Reason Admit Date/Time Nov 04, 2018 at 07:34 Initial Consult Date 11/11/18 Type of Consultation: Urology Requesting Provider: KARL WOOD MD Date/Time of Note DATE: 11/12/18 TIME: 12:18 Subjective Pt had episodes of rossana - now back to sinus - did not require treatment. Will monitor for now - continue supportive care. ROS: No fever, no chills, no nausea, no vomiting, no diarrhea/constipation - con't heparin gtt for now. Objective Vitals Vital Signs Date Temp Pulse Resp B/P (MAP) Pulse Ox O2 O2 Flow FiO2 Time Delivery Rate 11/12/18 70 16 105/52 98 11:45 (69) 11/12/18 Mechanical 11:00 Ventilator 11/12/18 90 08:00 11/12/18 98.8 08:00 11/10/18 3.0 20:00 Intake and Output 11/11/18 11/11/18 11/12/18 1515:00 23:00 07:00 IntakeIntake Total 627.5 ml 638.0 ml 778.5 ml OutputOutput Total 1140 ml 1370 ml 216 ml BalanceBalance -512.5 ml -732.0 ml 562.5 ml Exam General: WN/WD/NAD, AOx 0 HEENT: Unicetric/atraumatic/EOMI (follows commands) - intubated NECK: JVD elevated, no thyromegaly Lymph: no lymphadenopathy HEART: regular with no S3, II/ systolic murmur at apex LUNGS: Coarse sounds ABD: soft, NT, ND, +BS : Intact Neuro: non focal SKIN: chronic changes EXT: trace edema Results/Medications Result Diagram: 11/12/18 1046 11/12/18 0317 Results 24 hrs Laboratory Tests Test 11/11/18 13:27 11/11/18 15:12 11/11/18 17:05 11/11/18 18:00 Bedside Glucose 222 H 184 Activated > 180.0 *H 50.7 H Partial Thrombopl ast Time Creatine Kinase 213 H Creatine Kinase 1.7 Index Creatinine Kinase 3.63 H MB (Mass) Troponin I 0.527 *H Test 11/11/18 21:04 11/11/18 21:06 11/12/18 00:50 11/12/18 01:09 Creatine Kinase 165 Creatine Kinase 1.5 Index Creatinine Kinase 2.54 H MB (Mass) Troponin I 0.404 *H Bedside Glucose 182 165 Activated 80.9 *H Partial Thrombopl ast Time Test 11/12/18 01:56 11/12/18 03:17 11/12/18 05:03 11/12/18 08:00 Bedside Glucose 164 192 White Blood Count 9.7 Red Blood Count 2.42 L Hemoglobin 7.4 L Hematocrit 23.6 L Mean Corpuscular 97.5 Volume Mean Corpuscular 30.6 Hemoglobin Mean Corpuscular 31.4 L Hemoglobin Concen t Red Cell 13.4 Distribution Width Platelet Count 196 Mean Platelet 11.1 H Volume Immature 0.500 H Granulocytes % Neutrophils % 69.2 Lymphocytes % 14.6 L Monocytes % 10.3 Eosinophils % 4.4 Basophils % 1.0 Nucleated Red 0.0 Blood Cells % Immature 0.050 H Granulocytes # Neutrophils # 6.7 Lymphocytes # 1.4 Monocytes # 1.0 H Eosinophils # 0.4 Basophils # 0.1 Nucleated Red 0.0 Blood Cells # Sodium Level 136 Potassium Level 4.2 Chloride Level 106 Carbon Dioxide 23 Level Anion Gap 7 Blood Urea 31 H Nitrogen Creatinine 1.32 H Est Glomerular Filtrat Rate mL/min Glucose Level 161 Calcium Level 8.0 L Phosphorus Level 2.8 Magnesium Level 2.2 Creatine Kinase 159 Creatine Kinase 1.3 Index Creatinine Kinase 2.05 MB (Mass) Troponin I 0.274 *H Activated 93.7 *H Partial Thrombopl ast Time Test 11/12/18 08:54 11/12/18 09:00 11/12/18 10:46 Blood Gas Blood arterial Specimen Source Arterial Blood 11/12/2018 9:08:5 Date Drawn 0 AM Arterial Blood pH 7.358 (Temp corrected) Arterial Blood 41.6 pCO2 (Temp correct) Arterial Blood 79.1 L pO2 (Temp corrected) Arterial Blood 22.9 HCO3 Arterial Blood -2.4 Base Excess Arterial Blood 94.1 L Oxygen Saturation Jeison Test ACCEPTAB Arterial Blood Right Radial Gas Puncture Site Arterial 0.5 Blood Carboxyhemo globin Arterial Blood 0 Methemoglobin Blood Gas A-a O2 520.0 H Differential Oxyhemoglobin 93.6 Percent Blood Gas 37.0 Temperature Blood Gas 16.0 Respiration Rate Blood Gas Actual 18 Respiration Rate Blood Gas VENT - AC Modality FiO2 90.0 Blood Gas Tidal 500.0 Volume Blood Gas Low 5.0 PEEP Setting Blood Gas TM Notified Whom Blood Gas 11/12/2018 9:17:3 Notified Time 7 AM Bedside Glucose 201 White Blood Count 8.1 Red Blood Count 2.25 L Hemoglobin 6.9 *L Hematocrit 22.2 L Mean Corpuscular 98.7 Volume Mean Corpuscular 30.7 Hemoglobin Mean Corpuscular 31.1 L Hemoglobin Concen t Red Cell 13.3 Distribution Width Platelet Count 167 Mean Platelet 10.8 H Volume Immature 0.700 H Granulocytes % Neutrophils % 72.6 Lymphocytes % 13.0 L Monocytes % 8.9 Eosinophils % 4.1 Basophils % 0.7 Nucleated Red 0.0 Blood Cells % Immature 0.060 H Granulocytes # Neutrophils # 5.8 Lymphocytes # 1.1 Monocytes # 0.7 Eosinophils # 0.3 Basophils # 0.1 Nucleated Red 0.0 Blood Cells # Creatine Kinase 120 Creatine Kinase 1.1 Index Creatinine Kinase 1.36 MB (Mass) Troponin I 0.168 *H Home Meds Active Scripts Silver Sulfadiazine* (Silvadene*) 1% - 20 Gm Cream.gm., 1 APPLIC TOP DAILY, #1 TUB Prov:JESSIE WONG MD 06/12/18 Amoxicillin-Clavulanate K* (Augmentin*) 875 Mg Tab, 875 MG PO BID, #28 TAB Prov:AMANDA GOMEZ MD 06/08/14 Reported Medications Insulin Aspart (Novolog Mix (70/30)) 100 Units/Ml Soln, 28 SC with diinner, VIAL 11/04/18 Insulin Aspart (Novolog Mix (70/30)) 100 Units/Ml Soln, 38 SC WITH BREAKFAST, VIAL 11/04/18 Benazepril Hcl* (Benazepril Hcl*) 40 Mg Tablet, 40 MG PO DAILY, #30 TAB 11/04/18 Ergocalciferol (Vitamin D2) (VITAMIN D2) 50,000 Unit Capsule, 66409 UNIT PO weekly for saturdays, CAP 11/04/18 Omeprazole* (Omeprazole*) 20 Mg Capsule.dr, 20 MG PO DAILY, #30 CAP 11/04/18 Aspirin* (Aspirin* EC) 81 Mg Tablet.dr, 81 MG PO DAILY, TAB 11/04/18 Gabapentin* (Gabapentin*) 300 Mg Capsule, 300 MG PO BID, #60 CAP 11/04/18 Nebivolol Hcl* (Bystolic*) 20 Mg Tablet, 20 MG PO DAILY, #30 TAB 11/04/18 Atorvastatin Calcium* (Atorvastatin Calcium*) 20 Mg Tablet, 20 MG PO QHS, #30 TAB 11/04/18 Sulfasalazine (Azulfidine) 500 Mg Tab, 1000 MG PO TID, TAB 06/02/14 Medications Current Medications Atorvastatin Calcium (Lipitor) 20 mg QHS PO Last administered on 11/11/18at 21:06; Admin Dose 20 MG; Start 11/04/18 at 21:00 Ergocalciferol (Drisdol) 50,000 unit Sa PO Last administered on 11/09/18at 09:28; Admin Dose 50,000 UNIT; Start 11/09/18 at 09:00 Gabapentin (Neurontin) 300 mg BID PO Last administered on 11/12/18at 09:12; Admin Dose 300 MG; Start 11/04/18 at 09:00 Miscellaneous Medication (Bystolic) 20 mg DAILY PO Last administered on 11/11/18at 09:03; Admin Dose 20 MG; Start 11/04/18 at 09:00; Status Hold Clonidine (Catapres) 0.1 mg Q6H PRN PO SBP>160; Start 11/04/18 at 09:00 IV Flush (NS 3 ml) 3 ml PER PROTOCOL IV ; Start 11/04/18 at 09:00 Ondansetron HCl (Zofran Inj) 4 mg Q6H PRN IV NAUSEA/VOMITING; Start 11/04/18 at 09:00 Acetaminophen (Tylenol Tab) 650 mg Q6H PRN PO .PAIN 1-3 OR TEMP; Start 11/04/18 at 09:00 Acetaminophen/ Hydrocodone Bitart ([place] (5/325)) 1 tab Q6H PRN PO .MOD PAIN 4- 6 Last administered on 11/10/18at 17:11; Admin Dose 1 TAB; Start 11/04/18 at 09:00 Docusate Sodium (Colace) 100 mg Q12H PRN PO .CONSTIPATION; Start 11/04/18 at 09:00 Miscellaneous Information 1 ea NOTE XX ; Start 11/04/18 at 09:00 Glucose (Glutose) 15 gm Q15M PRN PO DECREASED GLUCOSE; Start 11/04/18 at 09:00 Glucose (Glutose) 22.5 gm Q15M PRN PO DECREASED GLUCOSE; Start 11/04/18 at 09:00 Dextrose (D50w Syringe) 25 ml Q15M PRN IV DECREASED GLUCOSE; Start 11/04/18 at 09:00 Dextrose (D50w Syringe) 50 ml Q15M PRN IV DECREASED GLUCOSE; Start 11/04/18 at 09:00 Glucagon (Glucagen) 1 mg Q15M PRN IM DECREASED GLUCOSE; Start 11/04/18 at 09:00 Glucose (Glutose) 15 gm Q15M PRN BUCCAL DECREASED GLUCOSE; Start 11/04/18 at 09:00 Miscellaneous Information Patients own medicat... BID@10,16 XX Last administered on 11/10/18 15:28; Admin Dose 1 EA; Start 11/04/18 at 16:00 Povidone Iodine (Povidone-Iodine) 1 applic BID TOP Last administered on 11/12/18 09:13; Admin Dose 1 APPLIC; Start 11/05/18 at 21:00 Hydralazine HCl (Apresoline) 100 mg TID PO Last administered on 11/11/18 21:06; Admin Dose 100 MG; Start 11/06/18 at 21:00 Sodium Hypochlorite (Dakins Diluted ()) 1 applic BID TP Last administered on 11/12/18 09:13; Admin Dose 1 APPLIC; Start 11/07/18 at 09:00 Aspirin (Aspirin) 325 mg DAILY PO Last administered on 11/12/18 09:12; Admin Dose 325 MG; Start 11/07/18 at 11:00 Insulin Glargine (Lantus) 30 units DAILY@0800 SC Last administered on 11/12/18 09:24; Admin Dose 30 UNITS; Start 11/08/18 at 08:00 Hydralazine HCl (Apresoline) 10 mg Q4H PRN IV sbp >160 Last administered on 11/08/18at 08:59; Admin Dose 10 MG; Start 11/08/18 at 09:00 Morphine Sulfate (morphine) 2 mg Q4H PRN IV SEVERE PAIN LEVEL 7-10 Last administered on 11/10/18 01:20; Admin Dose 2 MG; Start 11/08/18 at 09:00 Daptomycin 500 mg/ Sodium Chloride 100 ml @ 200 mls/hr Q24H IVPB Last administered on 11/11/18 16:16; Admin Dose 200 MLS/HR; Start 11/08/18 at 16:00 Clopidogrel Bisulfate (plaVIX) 75 mg DAILY PO Last administered on 11/12/18 09:12; Admin Dose 75 MG; Start 11/10/18 at 08:00 Heparin Sodium (Porcine) (Heparin (1000 Units/ml)) 6,800 unit PER PROTOCOL PRN IV aPTT<47; Start 11/11/18 at 09:00 Heparin Sodium (Porcine) (Heparin (1000 Units/ml)) 3,400 unit PER PROTOCOL PRN IV aPTT<47-57; Start 11/11/18 at 09:00 Heparin Sodium (Porcine) 250 ml @ 15.5 mls/hr PER PROTOCOL IV Last admin istered on 11/12/18 04:06; Admin Dose 13 MLS/HR; Start 11/11/18 at 09:00 Famotidine (Pepcid) 20 mg DAILY NGT Last administered on 11/12/18 09:12; Admin Dose 20 MG; Start 11/11/18 at 09:30 Piperacillin Sod/ Tazobactam Sod 100 ml @ 200 mls/hr Q8 IVPB Last administered on 11/12/18 05:09; Admin Dose 200 MLS/HR; Start 11/11/18 at 14:00 Fentanyl 100 ml @ 2.5 mls/hr TITRATE IV Last administered on 11/11/18 11:09; Admin Dose 2.5 MLS/HR; Start 11/11/18 at 09:30 Midazolam HCl 50 ml @ 1 mls/hr TITRATE IV Last administered on 11/12/18 03:59; Admin Dose 3 MLS/HR; Start 11/11/18 at 10:30 Albuterol (Ventolin Hfa) 2 puff Q6H RESP THERAPY INH Last administered on 11/12/18 07:56; Admin Dose 2 PUFF; Start 11/11/18 at 20:00 Ipratropium [place] (Atrovent Hfa) 4 puff Q6H RESP THERAPY INH Last ad ministered on 11/12/18 07:56; Admin Dose 4 PUFF; Start 11/11/18 at 20:00 Atropine Sulfate (Atropine) 0.5 mg PRN PRN IV SYMPTOMATIC BRADYCARDIA; Start 11/11/18 at 23:00 Insulin Aspart (Novolog Insulin Pen) NOVOLOG *MODERATE* ALGORI... Q4 SC Last administered on 11/12/18at 09:19; Admin Dose 4 UNIT; Start 11/12/18 at 09:00 Assessment/Plan Hospital Course (Demo Recall) 1. Preoperative evaluation prior to possible need for peripheral revascularization surgery.-neg trop x 3 and NL EF by echo with no sig valve abnl - s/p decomp[ensation and CODE Blue - pt was rossana last night, now in sinus - con't supportive Rx. 2. Peripheral arterial disease with nonhealing gangrenous changes in left toe ulceration - post op now. 3. Hypertension, under reasonable control on current medications. 4. Dyslipidemia. 5. Diabetes mellitus. 6. s/p cardiopulmonary arrest 7. Bradycardic intermittenjt by tele - now back to sinus - will monitor - julián gtt if sustained rossana. 8. Positive troponin after arrest-? secondary to or primary to arrest 9. Anemia - H/H stable - no bleeding now, RAJI BROWNE MD Nov 12, 2018 12:24
--- NOTE | 2018-11-12 12:54 | CONS ---
Consult Date/Type/Reason Admit Date/Time Nov 04, 2018 at 07:34 Initial Consult Date 11/11/18 Type of Consult Pulmonary Requesting Provider: KARL WOOD MD Date/Time of Note DATE: 11/12/18 TIME: 12:53 Subjective Intubated, sedated, comfortable Objective Vital Signs Date Temp Pulse Resp B/P (MAP) Pulse Ox O2 O2 Flow FiO2 Time Delivery Rate 11/12/18 70 16 105/52 98 11:45 (69) 11/12/18 Mechanical 11:00 Ventilator 11/12/18 90 08:00 11/12/18 98.8 08:00 11/10/18 3.0 20:00 Intake and Output 11/11/18 11/11/18 11/12/18 1515:00 23:00 07:00 IntakeIntake Total 627.5 ml 638.0 ml 778.5 ml OutputOutput Total 1140 ml 1370 ml 216 ml BalanceBalance -512.5 ml -732.0 ml 562.5 ml Exam GENERAL: Well-nourished, well-developed gentleman, orally intubated on mechanical ventilation, appears comfortable at rest, no acute distress. VITAL SIGNS: NECK: Supple. No JVD or lymphadenopathy. CARDIAC: S1, S2, no added sounds or murmurs. CHEST: Diminished air entry bilaterally. ABDOMEN: Soft, nontender. No guarding or rebound. EXTREMITIES: No cyanosis, clubbing, 1+ edema. NEUROLOGIC: Generalized weakness. Vent Setting Ventilator Support Mode: AC Fraction of Inspired Oxygen pe: 90 Positive End Expiratory Pressu: 5.0 Results/Medications Result Diagram: 11/12/18 1046 11/12/18 0317 Results 24 hrs Laboratory Tests Test 11/11/18 13:27 11/11/18 15:12 11/11/18 17:05 11/11/18 18:00 Bedside Glucose 222 H 184 Activated > 180.0 *H 50.7 H Partial Thrombopl ast Time Creatine Kinase 213 H Creatine Kinase 1.7 Index Creatinine Kinase 3.63 H MB (Mass) Troponin I 0.527 *H Test 11/11/18 21:04 11/11/18 21:06 11/12/18 00:50 11/12/18 01:09 Creatine Kinase 165 Creatine Kinase 1.5 Index Creatinine Kinase 2.54 H MB (Mass) Troponin I 0.404 *H Bedside Glucose 182 165 Activated 80.9 *H Partial Thrombopl ast Time Test 11/12/18 01:56 11/12/18 03:17 11/12/18 05:03 11/12/18 08:00 Bedside Glucose 164 192 White Blood Count 9.7 Red Blood Count 2.42 L Hemoglobin 7.4 L Hematocrit 23.6 L Mean Corpuscular 97.5 Volume Mean Corpuscular 30.6 Hemoglobin Mean Corpuscular 31.4 L Hemoglobin Concen t Red Cell 13.4 Distribution Width Platelet Count 196 Mean Platelet 11.1 H Volume Immature 0.500 H Granulocytes % Neutrophils % 69.2 Lymphocytes % 14.6 L Monocytes % 10.3 Eosinophils % 4.4 Basophils % 1.0 Nucleated Red 0.0 Blood Cells % Immature 0.050 H Granulocytes # Neutrophils # 6.7 Lymphocytes # 1.4 Monocytes # 1.0 H Eosinophils # 0.4 Basophils # 0.1 Nucleated Red 0.0 Blood Cells # Sodium Level 136 Potassium Level 4.2 Chloride Level 106 Carbon Dioxide 23 Level Anion Gap 7 Blood Urea 31 H Nitrogen Creatinine 1.32 H Est Glomerular Filtrat Rate mL/min Glucose Level 161 Calcium Level 8.0 L Phosphorus Level 2.8 Magnesium Level 2.2 Creatine Kinase 159 Creatine Kinase 1.3 Index Creatinine Kinase 2.05 MB (Mass) Troponin I 0.274 *H Activated 93.7 *H Partial Thrombopl ast Time Test 11/12/18 08:54 11/12/18 09:00 11/12/18 10:46 Blood Gas Blood arterial Specimen Source Arterial Blood 11/12/2018 9:08:5 Date Drawn 0 AM Arterial Blood pH 7.358 (Temp corrected) Arterial Blood 41.6 pCO2 (Temp correct) Arterial Blood 79.1 L pO2 (Temp corrected) Arterial Blood 22.9 HCO3 Arterial Blood -2.4 Base Excess Arterial Blood 94.1 L Oxygen Saturation Jeison Test ACCEPTAB Arterial Blood Right Radial Gas Puncture Site Arterial 0.5 Blood Carboxyhemo globin Arterial Blood 0 Methemoglobin Blood Gas A-a O2 520.0 H Differential Oxyhemoglobin 93.6 Percent Blood Gas 37.0 Temperature Blood Gas 16.0 Respiration Rate Blood Gas Actual 18 Respiration Rate Blood Gas VENT - AC Modality FiO2 90.0 Blood Gas Tidal 500.0 Volume Blood Gas Low 5.0 PEEP Setting Blood Gas TM Notified Whom Blood Gas 11/12/2018 9:17:3 Notified Time 7 AM Bedside Glucose 201 White Blood Count 8.1 Red Blood Count 2.25 L Hemoglobin 6.9 *L Hematocrit 22.2 L Mean Corpuscular 98.7 Volume Mean Corpuscular 30.7 Hemoglobin Mean Corpuscular 31.1 L Hemoglobin Concen t Red Cell 13.3 Distribution Width Platelet Count 167 Mean Platelet 10.8 H Volume Immature 0.700 H Granulocytes % Neutrophils % 72.6 Lymphocytes % 13.0 L Monocytes % 8.9 Eosinophils % 4.1 Basophils % 0.7 Nucleated Red 0.0 Blood Cells % Immature 0.060 H Granulocytes # Neutrophils # 5.8 Lymphocytes # 1.1 Monocytes # 0.7 Eosinophils # 0.3 Basophils # 0.1 Nucleated Red 0.0 Blood Cells # Creatine Kinase 120 Creatine Kinase 1.1 Index Creatinine Kinase 1.36 MB (Mass) Troponin I 0.168 *H Medications Current Medications Atorvastatin Calcium (Lipitor) 20 mg QHS PO Last administered on 11/11/18at 21:06; Admin Dose 20 MG; Start 11/04/18 at 21:00 Ergocalciferol (Drisdol) 50,000 unit Sa PO Last administered on 11/09/18at 09:28; Admin Dose 50,000 UNIT; Start 11/09/18 at 09:00 Gabapentin (Neurontin) 300 mg BID PO Last administered on 11/12/18at 09:12; Admin Dose 300 MG; Start 11/04/18 at 09:00 Miscellaneous Medication (Bystolic) 20 mg DAILY PO Last administered on 11/11/18at 09:03; Admin Dose 20 MG; Start 11/04/18 at 09:00; Status Hold Clonidine (Catapres) 0.1 mg Q6H PRN PO SBP>160; Start 11/04/18 at 09:00 IV Flush (NS 3 ml) 3 ml PER PROTOCOL IV ; Start 11/04/18 at 09:00 Ondansetron HCl (Zofran Inj) 4 mg Q6H PRN IV NAUSEA/VOMITING; Start 11/04/18 at 09:00 Acetaminophen (Tylenol Tab) 650 mg Q6H PRN PO .PAIN 1-3 OR TEMP; Start 11/04/18 at 09:00 Acetaminophen/ Hydrocodone Bitart ([place] (5/325)) 1 tab Q6H PRN PO .MOD PAIN 4- 6 Last administered on 11/10/18 17:11; Admin Dose 1 TAB; Start 11/04/18 at 09: 00 Docusate Sodium (Colace) 100 mg Q12H PRN PO .CONSTIPATION; Start 11/04/18 at 09:00 Miscellaneous Information 1 ea NOTE XX ; Start 11/04/18 at 09:00 Glucose (Glutose) 15 gm Q15M PRN PO DECREASED GLUCOSE; Start 11/04/18 at 09:00 Glucose (Glutose) 22.5 gm Q15M PRN PO DECREASED GLUCOSE; Start 11/04/18 at 09:00 Dextrose (D50w Syringe) 25 ml Q15M PRN IV DECREASED GLUCOSE; Start 11/04/18 at 09:00 Dextrose (D50w Syringe) 50 ml Q15M PRN IV DECREASED GLUCOSE; Start 11/04/18 at 09:00 Glucagon (Glucagen) 1 mg Q15M PRN IM DECREASED GLUCOSE; Start 11/04/18 at 09:00 Glucose (Glutose) 15 gm Q15M PRN BUCCAL DECREASED GLUCOSE; Start 11/04/18 at 09:00 Miscellaneous Information Patients own medicat... BID@10,16 XX Last administered on 11/10/18at 15:28; Admin Dose 1 EA; Start 11/04/18 at 16:00 Povidone Iodine (Povidone-Iodine) 1 applic BID TOP Last administered on 11/12/18 09:13; Admin Dose 1 APPLIC; Start 11/05/18 at 21:00 Hydralazine HCl (Apresoline) 100 mg TID PO Last administered on 11/11/18 21:06; Admin Dose 100 MG; Start 11/06/18 at 21:00 Sodium Hypochlorite (Dakins Diluted (40)) 1 applic BID TP Last administered on 11/12/18 09:13; Admin Dose 1 APPLIC; Start 11/07/18 at 09:00 Aspirin (Aspirin) 325 mg DAILY PO Last administered on 11/12/18 09:12; Admin Dose 325 MG; Start 11/07/18 at 11:00 Insulin Glargine (Lantus) 30 units DAILY@0800 SC Last administered on 6/25/19at 09:24; Admin Dose 30 UNITS; Start 11/08/18 at 08:00 Hydralazine HCl (Apresoline) 10 mg Q4H PRN IV sbp >160 Last administered on 11/08/18 08:59; Admin Dose 10 MG; Start 11/08/18 at 09:00 Morphine Sulfate (morphine) 2 mg Q4H PRN IV SEVERE PAIN LEVEL 7-10 Last administered on 11/10/18 01:20; Admin Dose 2 MG; Start 11/08/18 at 09:00 Daptomycin 500 mg/ Sodium Chloride 100 ml @ 200 mls/hr Q24H IVPB Last administered on 11/11/18 16:16; Admin Dose 200 MLS/HR; Start 11/08/18 at 16:00 Clopidogrel Bisulfate (plaVIX) 75 mg DAILY PO Last administered on 11/12/18 09:12; Admin Dose 75 MG; Start 11/10/18 at 08:00 Heparin Sodium (Porcine) (Heparin (1000 Units/ml)) 6,800 unit PER PROTOCOL PRN IV aPTT<47; Start 11/11/18 at 09:00 Heparin Sodium (Porcine) (Heparin (1000 Units/ml)) 3,400 unit PER PROTOCOL PRN IV aPTT<47-57; Start 11/11/18 at 09:00 Heparin Sodium (Porcine) 250 ml @ 15.5 mls/hr PER PROTOCOL IV Last administered on 11/12/18 04:06; Admin Dose 13 MLS/HR; Start 11/11/18 at 09:00 Famotidine (Pepcid) 20 mg DAILY NGT Last administered on 11/12/18 09:12; Admin Dose 20 MG; Start 11/11/18 at 09:30 Piperacillin Sod/ Tazobactam Sod 100 ml @ 200 mls/hr Q8 IVPB Last administered on 11/12/18 05:09; Admin Dose 200 MLS/HR; Start 11/11/18 at 14:00 Fentanyl 100 ml @ 2.5 mls/hr TITRATE IV Last administered on 11/11/18 11:09; Admin Dose 2.5 MLS/HR; Start 11/11/18 at 09:30 Midazolam HCl 50 ml @ 1 mls/hr TITRATE IV Last administered on 11/12/18 03:59; Admin Dose 3 MLS/HR; Start 11/11/18 at 10:30 Albuterol (Ventolin Hfa) 2 puff Q6H RESP THERAPY INH Last administered on 11/12/18at 07:56; Admin Dose 2 PUFF; Start 11/11/18 at 20:00 Ipratropium [place] (Atrovent Hfa) 4 puff Q6H RESP THERAPY INH Last administered on 11/12/18at 07:56; Admin Dose 4 PUFF; Start 11/11/18 at 20:00 Atropine Sulfate (Atropine) 0.5 mg PRN PRN IV SYMPTOMATIC BRADYCARDIA; Start 11/11/18 at 23:00 Insulin Aspart (Novolog Insulin Pen) NOVOLOG *MODERATE* ALGORI... Q4 SC Last administered on 11/12/18at 09:19; Admin Dose 4 UNIT; Start 11/12/18 at 09:00 Assessment/Plan Hospital Course (Demo Recall) IMPRESSION AND PLAN: 1. Acute hypoxemic respiratory failure likely following cardiopulmonary arrest. 2. New onset bradycardia.Likely secondary to b sharon. 3. Peripheral vascular disease. 4. Poorly controlled diabetes. 5. Anemia, no GIB PLAN: 1. Lasix 2. Continue mechanical ventilation. 3. Transfuse PRBC 2 units. 4. Discontinue propofol, transition to fentanyl and Versed. 5. Replace electrolytes. 6. Deep vein thrombosis and gastrointestinal prophylaxis. 7. Vascular recommendations. EDWIGE CARRANZA MD, [facility] Nov 12, 2018 12:54
--- NOTE | 2018-11-12 14:41 | PN ---
Date/Time of Note Date/Time of Note DATE: 11/12/18 TIME: 14:38 Assessment/Plan Lines/Catheters IV Catheter Type (from Nrs): Peripheral IV Vora in Place (from Nrs): Yes (placed by Dr. Pimentel) Assessment/Plan Assessment/Plan POD#4 s/p L iliofem and fem-tibial bypass; had respiratory arrest, resuscitated, improved Plan: -Appreciate medical and ICU management -Will defer hep gtt to Dr. Em -Wean vent as durga -Agree w/ blood transfusion -Dry dressings to LLE incisions -D/w MANAGER GOLF Subjective 24 Hr Interval Summary vitals stable, still on vent but less sedation, HCT drifted, hep gtt therapeutic Exam/Review of Systems Vital Signs Vitals Vital Signs Date Temp Pulse Resp B/P (MAP) Pulse Ox O2 O2 Flow FiO2 Time Delivery Rate 11/12/18 69 16 102/53 99 13:45 (69) 11/12/18 Mechanical 13:00 Ventilator 11/12/18 98.1 12:00 11/12/18 90 08:00 11/10/18 3.0 20:00 Intake and Output 11/11/18 11/11/18 11/12/18 1515:00 23:00 07:00 IntakeIntake Total 627.5 ml 638.0 ml 778.5 ml OutputOutput Total 1140 ml 1370 ml 216 ml BalanceBalance -512.5 ml -732.0 ml 562.5 ml Exam Free Text/Dictation Gen: intubated, sedated Neck: supple Heart: Reg rate/rhythm Lungs: mech vent Abd: soft, NT, ND Extr: BLE warm, moderated edema; LLE proximal thigh incisions w/ mild serous drainage, 1+ palpable BPG; good strong biphasic PT signal; L foot wounds stable Results Result Diagram: 11/12/18 1046 11/12/18 0317 DAE SOTO MD Nov 12, 2018 14:41
--- NOTE | 2018-11-12 15:16 | CONS ---
Assessment/Plan Assessment/Plan Hospital Course (Demo Recall) 1100 no acute changes. Patient remains intubated sedated in no distress. No fevers overnight. WBC 8.1 H&H 6.9 and 22.2 platelets 167 neutrophils 72.6 BUN 31 creatinine 1.32 Chest x-ray revealed no new infiltrates Antimicrobials: Zosyn, daptomycin Indwelling: Endotracheal tube, NG tube, Vora Physical examination: Well-developed elderly man who is in no distress head atraumatic normocephalic neck is supple chest rise symmetrical breath sounds diminished bases heart S1-S2 abdomen soft bowel sounds present extremities with left foot dressing intact Assessment: 1. Status post cardiac arrest 2. Non-ST elevation [place] 3. Acute respiratory failure, possibly aspirated 4. Left foot gangrene 5. Peripheral arterial disease status post left femoral to posterior tibial bypass 11/08/18 6. Diabetes 7. History of left foot second toe amputation 8. Acute kidney insufficiency Plan: Is unchanged, stable, continue present care, vent management per pulmonary Consultation Date/Type/Reason Admit Date/Time Nov 04, 2018 at 07:34 Initial Consult Date Type of Consult id Requesting Provider: KARL WOOD MD Date/Time of Note DATE: 11/12/18 TIME: 15:14 Exam/Review of Systems Exam Vitals Vital Signs Date Temp Pulse Resp B/P (MAP) Pulse Ox O2 O2 Flow FiO2 Time Delivery Rate 11/12/18 69 16 102/53 99 13:45 (69) 11/12/18 Mechanical 13:00 Ventilator 11/12/18 98.1 12:00 11/12/18 90 08:00 11/10/18 3.0 20:00 Intake and Output 11/11/18 11/11/18 11/12/18 1515:00 23:00 07:00 IntakeIntake Total 627.5 ml 638.0 ml 778.5 ml OutputOutput Total 1140 ml 1370 ml 216 ml BalanceBalance -512.5 ml -732.0 ml 562.5 ml Results Result Diagram: 11/12/18 1046 11/12/18 0317 Results 24hrs Laboratory Tests Test 11/11/18 17:05 11/11/18 18:00 11/11/18 21:04 11/11/18 21:06 Bedside Glucose 184 182 Activated 50.7 H Partial Thrombopl ast Time Creatine Kinase 165 Creatine Kinase 1.5 Index Creatinine Kinase 2.54 H MB (Mass) Troponin I 0.404 *H Test 11/12/18 00:50 11/12/18 01:09 11/12/18 01:56 11/12/18 03:17 Activated 80.9 *H Partial Thrombopl ast Time Bedside Glucose 165 164 White Blood Count 9.7 Red Blood Count 2.42 L Hemoglobin 7.4 L Hematocrit 23.6 L Mean Corpuscular 97.5 Volume Mean Corpuscular 30.6 Hemoglobin Mean Corpuscular 31.4 L Hemoglobin Concen t Red Cell 13.4 Distribution Width Platelet Count 196 Mean Platelet 11.1 H Volume Immature 0.500 H Granulocytes % Neutrophils % 69.2 Lymphocytes % 14.6 L Monocytes % 10.3 Eosinophils % 4.4 Basophils % 1.0 Nucleated Red 0.0 Blood Cells % Immature 0.050 H Granulocytes # Neutrophils # 6.7 Lymphocytes # 1.4 Monocytes # 1.0 H Eosinophils # 0.4 Basophils # 0.1 Nucleated Red 0.0 Blood Cells # Sodium Level 136 Potassium Level 4.2 Chloride Level 106 Carbon Dioxide 23 Level Anion Gap 7 Blood Urea 31 H Nitrogen Creatinine 1.32 H Est Glomerular Filtrat Rate mL/min Glucose Level 161 Calcium Level 8.0 L Phosphorus Level 2.8 Magnesium Level 2.2 Creatine Kinase 159 Creatine Kinase 1.3 Index Creatinine Kinase 2.05 MB (Mass) Troponin I 0.274 *H Test 11/12/18 05:03 11/12/18 08:00 11/12/18 08:54 11/12/18 09:00 Bedside Glucose 192 201 Activated 93.7 *H Partial Thrombopl ast Time Blood Gas Blood arterial Specimen Source Arterial Blood 11/12/2018 9:08:5 Date Drawn 0 AM Arterial Blood pH 7.358 (Temp corrected) Arterial Blood 41.6 pCO2 (Temp correct) Arterial Blood 79.1 L pO2 (Temp corrected) Arterial Blood 22.9 HCO3 Arterial Blood -2.4 Base Excess Arterial Blood 94.1 L Oxygen Saturation Jeison Test ACCEPTAB Arterial Blood Right Radial Gas Puncture Site Arterial 0.5 Blood Carboxyhemo globin Arterial Blood 0 Methemoglobin Blood Gas A-a O2 520.0 H Differential Oxyhemoglobin 93.6 Percent Blood Gas 37.0 Temperature Blood Gas 16.0 Respiration Rate Blood Gas Actual 18 Respiration Rate Blood Gas VENT - AC Modality FiO2 90.0 Blood Gas Tidal 500.0 Volume Blood Gas Low 5.0 PEEP Setting Blood Gas TM Notified Whom Blood Gas 11/12/2018 9:17:3 Notified Time 7 AM Test 11/12/18 10:46 11/12/18 13:11 White Blood Count 8.1 Red Blood Count 2.25 L Hemoglobin 6.9 *L Hematocrit 22.2 L Mean Corpuscular 98.7 Volume Mean Corpuscular 30.7 Hemoglobin Mean Corpuscular 31.1 L Hemoglobin Concen t Red Cell 13.3 Distribution Width Platelet Count 167 Mean Platelet 10.8 H Volume Immature 0.700 H Granulocytes % Neutrophils % 72.6 Lymphocytes % 13.0 L Monocytes % 8.9 Eosinophils % 4.1 Basophils % 0.7 Nucleated Red 0.0 Blood Cells % Immature 0.060 H Granulocytes # Neutrophils # 5.8 Lymphocytes # 1.1 Monocytes # 0.7 Eosinophils # 0.3 Basophils # 0.1 Nucleated Red 0.0 Blood Cells # Creatine Kinase 120 Creatine Kinase 1.1 Index Creatinine Kinase 1.36 MB (Mass) Troponin I 0.168 *H Bedside Glucose 201 Medications Medication Current Medications Atorvastatin Calcium (Lipitor) 20 mg QHS PO Last administered on 11/11/18at 21:06; Admin Dose 20 MG; Start 11/04/18 at 21:00 Ergocalciferol (Drisdol) 50,000 unit Sa PO Last administered on 11/09/18at 09:28; Admin Dose 50,000 UNIT; Start 11/09/18 at 09:00 Gabapentin (Neurontin) 300 mg BID PO Last administered on 11/12/18at 09:12; Admin Dose 300 MG; Start 11/04/18 at 09:00 Miscellaneous Medication (Bystolic) 20 mg DAILY PO Last administered on 11/11/18at 09:03; Admin Dose 20 MG; Start 11/04/18 at 09:00; Status Hold Clonidine (Catapres) 0.1 mg Q6H PRN PO SBP>160; Start 11/04/18 at 09:00 IV Flush (NS 3 ml) 3 ml PER PROTOCOL IV ; Start 11/04/18 at 09:00 Ondansetron HCl (Zofran Inj) 4 mg Q6H PRN IV NAUSEA/VOMITING; Start 11/04/18 at 09:00 Acetaminophen (Tylenol Tab) 650 mg Q6H PRN PO .PAIN 1-3 OR TEMP; Start 11/04/18 at 09:00 Acetaminophen/ Hydrocodone Bitart ([place] (5/325)) 1 tab Q6H PRN PO .MOD PAIN 4- 6 Last administered on 11/10/18at 17:11; Admin Dose 1 TAB; Start 11/04/18 at 09:00 Docusate Sodium (Colace) 100 mg Q12H PRN PO .CONSTIPATION; Start 11/04/18 at 09:00 Miscellaneous Information 1 ea NOTE XX ; Start 11/04/18 at 09:00 Glucose (Glutose) 15 gm Q15M PRN PO DECREASED GLUCOSE; Start 11/04/18 at 09:00 Glucose (Glutose) 22.5 gm Q15M PRN PO DECREASED GLUCOSE; Start 11/04/18 at 09:00 Dextrose (D50w Syringe) 25 ml Q15M PRN IV DECREASED GLUCOSE; Start 11/04/18 at 09:00 Dextrose (D50w Syringe) 50 ml Q15M PRN IV DECREASED GLUCOSE; Start 11/04/18 at 09:00 Glucagon (Glucagen) 1 mg Q15M PRN IM DECREASED GLUCOSE; Start 11/04/18 at 09:00 Glucose (Glutose) 15 gm Q15M PRN BUCCAL DECREASED GLUCOSE; Start 11/04/18 at 09:00 Miscellaneous Information Patients own medicat... BID@10,16 XX Last adm inistered on 11/10/18at 15:28; Admin Dose 1 EA; Start 11/04/18 at 16:00 Povidone Iodine (Povidone-Iodine) 1 applic BID TOP Last administered on 11/12/18at 09:13; Admin Dose 1 APPLIC; Start 11/05/18 at 21:00 Hydralazine HCl (Apresoline) 100 mg TID PO Last administered on 11/11/18at 21:06; Admin Dose 100 MG; Start 11/06/18 at 21:00 Sodium Hypochlorite (Dakins Diluted ()) 1 applic BID TP Last administered on 11/12/18 09:13; Admin Dose 1 APPLIC; Start 11/07/18 at 09:00 Aspirin (Aspirin) 325 mg DAILY PO Last administered on 11/12/18 09:12; Admin Dose 325 MG; Start 11/07/18 at 11:00 Insulin Glargine (Lantus) 30 units DAILY@0800 SC Last administered on 11/12/18 09:24; Admin Dose 30 UNITS; Start 11/08/18 at 08:00 Hydralazine HCl (Apresoline) 10 mg Q4H PRN IV sbp >160 Last administered on 11/08/18 08:59; Admin Dose 10 MG; Start 11/08/18 at 09:00 Morphine Sulfate (morphine) 2 mg Q4H PRN IV SEVERE PAIN LEVEL 7-10 Last administered on 11/10/18 01:20; Admin Dose 2 MG; Start 11/08/18 at 09:00 Daptomycin 500 mg/ Sodium Chloride 100 ml @ 200 mls/hr Q24H IVPB Last administered on 11/11/18 16:16; Admin Dose 200 MLS/HR; Start 11/08/18 at 16:00 Clopidogrel Bisulfate (plaVIX) 75 mg DAILY PO Last administered on 11/12/18 09:12; Admin Dose 75 MG; Start 11/10/18 at 08:00 Heparin Sodium (Porcine) (Heparin (1000 Units/ml)) 6,800 unit PER PROTOCOL PRN IV aPTT<47; Start 11/11/18 at 09:00 Heparin Sodium (Porcine) (Heparin (1000 Units/ml)) 3,400 unit PER PROTOCOL PRN IV aPTT<47-57; Start 11/11/18 at 09:00 Heparin Sodium (Porcine) 250 ml @ 15.5 mls/hr PER PROTOCOL IV Last administered on 11/12/18 04:06; Admin Dose 13 MLS/HR; Start 11/11/18 at 09:00 Famotidine (Pepcid) 20 mg DAILY NGT Last administered on 11/12/18 09:12; Admin Dose 20 MG; Start 11/11/18 at 09:30 Piperacillin Sod/ Tazobactam Sod 100 ml @ 200 mls/hr Q8 IVPB Last administered on 11/12/18 13:11; Admin Dose 200 MLS/HR; Start 11/11/18 at 14:00 Fentanyl 100 ml @ 2.5 mls/hr TITRATE IV Last administered on 11/11/18 11:09; Admin Dose 2.5 MLS/HR; Start 11/11/18 at 09:30 Midazolam HCl 50 ml @ 1 mls/hr TITRATE IV Last administered on 11/12/18 03:59; Admin Dose 3 MLS/HR; Start 11/11/18 at 10:30 Albuterol (Ventolin Hfa) 2 puff Q6H RESP THERAPY INH Last administered on 11/12/18 07:56; Admin Dose 2 PUFF; Start 11/11/18 at 20:00 Ipratropium [place] (Atrovent Hfa) 4 puff Q6H RESP THERAPY INH Last administe red on 11/12/18 07:56; Admin Dose 4 PUFF; Start 11/11/18 at 20:00 Atropine Sulfate (Atropine) 0.5 mg PRN PRN IV SYMPTOMATIC BRADYCARDIA; Start 11/11/18 at 23:00 Insulin Aspart (Novolog Insulin Pen) NOVOLOG *MODERATE* ALGORI... Q4 SC Last administered on 11/12/18 13:20; Admin Dose 4 UNIT; Start 11/12/18 at 09:00 HERRERA MURILLO NP Nov 12, 2018 15:16
[2018-11-12] MEDS: DAPTOMYCIN 500 MG in SOD CHLORIDE 0.9% 100 ML IVPB SCH (16:22)
--- NOTE | 2018-11-12 18:51 | PN ---
DATE: 11/12/2018 SUBJECTIVE: The patient is being followed for left foot ulceration of hallux and gangrene of 5th toe . He is status post iliofemoral, fem bypass with warm extremity, currently in ICU, mechanical ventil ation for postop respiratory arrest. The patient remains intubated without any distress. PHYSICAL EXAMINATION: VITAL SIGNS: Temperature 98.1, pulse 70, respiratory rate 22, blood pressure 115/51, pulse oximetry is 97 on mechanical ventilation, FiO2 of 80. EXTREMITIES: The patient with edema, compression wrap, left lower extremity. There are dry gangreno us changes to the 5th toe mummification. There is ulceration on the hallux measuring 0.2 x 0.2 cm. No malodor. No signs of pressure sore to the left heel. Extremity is warmth. The patient with 1+ b ypass graft pulse. LABORATORIES: WBC 8.1, hemoglobin 6.9, hematocrit 22.2, platelets 167. ASSESSMENT: 1. Left foot gangrene. 2. Peripheral arterial disease, status post iliofemoral fem bypass. 3. Acute hypoxic respiratory failure following cardiopulmonary arrest. 4. Anemia. PLAN: Wounds are stable. Gangrene is dry. Continue current treatment. The patient was immobilized and at high risk for pressure sores, currently using soft mattress and pillows to offload the heel w hich is appropriate. Continue Betadine ointment. Plan surgical intervention once medically stable f or left 5th digit amputation. Dictated By: DEEPAK MEDELLIN/BOBO Conf#: [id number] DID#: [id number] CC: KARL WOOD MD; TOMASA SCOTT; JAYLEEN BUNN MD;*EndCC*
[2018-11-12] MEDS: FENTAnyl (DRIP) 1000 mcg/100mL 100 ML IV SCH (18:56)
[2018-11-12] MEDS: ATORVASTATIN 20 MG TAB PO SCH (21:10)
[2018-11-13] VITALS (101 sets, daily range): BP systolic 90–146; BP diastolic 44–94; PULSE 69–84; RESP 3–25
[2018-11-13] MEDS: IPRATROPIUM (HFA) 12.9 GM INHALER INH SCH ×4 (01:37→19:57)
[2018-11-13] MEDS: ALBUTEROL HFA 8 GM INHALER INH SCH ×4 (01:37→19:58)
[2018-11-13] MEDS: INSULIN ASPART [NOVOLOG] 3 ML PEN SC SCH ×6 (01:44→21:04)
[2018-11-13] MEDS ORDERED: ACCU-CHEK XX SCH (02:00)
[2018-11-13] MEDS: DAKINS 0.0125%(1/40) 473 ML SOLUTION TP SCH ×3 (05:16→21:00)
[2018-11-13] MEDS: PIPER-TAZO 3.375 GM IV (PMX) 100 ML IVPB SCH ×3 (05:29→21:39)
[2018-11-13] MEDS: MIDAZOLAM (DRIP) 50 mg/50 mL 50 ML IV SCH ×2 (05:54→15:53)
[2018-11-13] MEDS ORDERED: FUROSEMIDE 40 MG INJ IV ONE (08:00)
--- NOTE | 2018-11-13 08:25 | PN ---
DATE: 11/13/2018 SUBJECTIVE: The patient remains critically ill on full ventilatory support. The patient's urinary o utput has been adequate. No other acute events noted. No hemoptysis, hematemesis, hematochezia. OBJECTIVE: VITAL SIGNS: Blood pressure is 125/65, respiratory rate 20, pulse 81, temperature 98.6. HEENT: Head is normocephalic. NECK: Supple. HEART: Regular rate. LUNGS: Show diminished breath sounds at the base. ABDOMEN: Soft, nontender to palpation without rebound or guarding. EXTREMITIES: Negative for clubbing, cyanosis, positive edema. DERMATOLOGIC: No rashes. MUSCULOSKELETAL: No joint effusion. NEUROLOGIC: No change in exam. MEDICATIONS: The patient's medications have been reviewed. LABORATORY DATA: Has been reviewed. IMAGING STUDIES: Have been reviewed. ASSESSMENT AND PLAN: 1. Nonoliguric acute kidney injury. Etiology is secondary to hemodynamics, possible contrast-associ ated nephropathy. The patient's renal function is fluctuating. Continue current treatment plans, schuler pportive care, renally dose all meds. Monitor closely on diuretic therapy. 2. Volume overload. The patient is on intermittent diuretic therapy. We will give an additional do se of Lasix 40 mg IV x1. Monitor closely. 3. Anemia. Monitor hemoglobin and hematocrit levels. 4. Mineral bone disorder, monitor calcium and phosphorus levels. 5. Ventilator dependent respiratory failure. Vent settings and ABG was reviewed. Continue to monit or. Follow up with pulmonary. 6. Status post cardiac arrest. Etiology is possibly respiratory. Continue to monitor. 7. Elevated troponin, possible non-STEMI type 2. Continue medical management. 8. Arrhythmia. 9. Peripheral vascular disease status post left femoral endarterectomy, status post iliofemoral bypa ss. 10. Hypertension. 12. Dyslipidemia. Continue statin therapy. 13. Acute encephalopathy, etiology is toxic metabolic. Dictated By: JEAN CLAUDE LARIOS DO NR/NTS Conf#: [id number] DID#: [id number] CC: TOMASA SCOTT; JAYLEEN BUNN MD; KARL WOOD MD;*EndCC*
[2018-11-13] MEDS: INSULIN GLARGINE [LANTus] (100 UNITS/ML) SYG SC SCH (08:39)
[2018-11-13] MEDS: CLOPIDOGREL 75 MG TAB GTB SCH (09:21)
[2018-11-13] MEDS: ASPIRIN 325 MG TAB GTB SCH (09:21)
[2018-11-13] MEDS: FAMOTIDINE 20 MG TAB NGT SCH (09:21)
[2018-11-13] MEDS: GABAPENTIN (50 MG/ML PO SYG) GTB SCH ×2 (09:21→21:15)
[2018-11-13] MEDS: POVIDONE IODINE 10% 28.4 GM OINT TOP SCH ×2 (09:22→21:00)
--- NOTE | 2018-11-13 09:43 | PN ---
Date/Time of Note Date/Time of Note DATE: 11/13/18 TIME: 09:42 Assessment/Plan VTE Prophylaxis Risk score (from Ns)>0 risk: 13 SCD applied (from Ns): No Lines/Catheters IV Catheter Type (from [facility]): Peripheral IV Urinary Cath still in place: Yes Assessment/Plan Result Diagram: 11/13/18 0430 11/13/18 0430 Results 24hrs Laboratory Tests Test 11/12/18 10:46 11/12/18 13:11 11/12/18 17:18 11/12/18 21:04 White Blood Count 8.1 Red Blood Count 2.25 L Hemoglobin 6.9 *L 9.3 #L Hematocrit 22.2 L 28.1 #L Mean Corpuscular 98.7 Volume Mean Corpuscular 30.7 Hemoglobin Mean Corpuscular 31.1 L Hemoglobin Concen t Red Cell 13.3 Distribution Width Platelet Count 167 Mean Platelet 10.8 H Volume Immature 0.700 H Granulocytes % Neutrophils % 72.6 Lymphocytes % 13.0 L Monocytes % 8.9 Eosinophils % 4.1 Basophils % 0.7 Nucleated Red 0.0 Blood Cells % Immature 0.060 H Granulocytes # Neutrophils # 5.8 Lymphocytes # 1.1 Monocytes # 0.7 Eosinophils # 0.3 Basophils # 0.1 Nucleated Red 0.0 Blood Cells # Creatine Kinase 120 Creatine Kinase 1.1 Index Creatinine Kinase 1.36 MB (Mass) Troponin I 0.168 *H Bedside Glucose 201 158 Test 11/12/18 21:09 11/12/18 21:37 11/13/18 01:41 11/13/18 04:30 Bedside Glucose 151 159 173 White Blood Count 8.4 Red Blood Count 2.74 #L Hemoglobin 8.4 L Hematocrit 25.7 L Mean Corpuscular 93.8 Volume Mean Corpuscular 30.7 Hemoglobin Mean Corpuscular 32.7 Hemoglobin Concen t Red Cell 14.8 H Distribution Width Platelet Count 199 Mean Platelet 10.7 H Volume Immature 0.600 H Granulocytes % Neutrophils % 69.0 Lymphocytes % 15.4 Monocytes % 11.2 H Eosinophils % 3.0 Basophils % 0.8 Nucleated Red 0.0 Blood Cells % Immature 0.050 H Granulocytes # Neutrophils # 5.8 Lymphocytes # 1.3 Monocytes # 0.9 Eosinophils # 0.3 Basophils # 0.1 Nucleated Red 0.0 Blood Cells # Activated 35.4 H Partial Thrombopl ast Time Sodium Level 139 Potassium Level 4.0 Chloride Level 105 Carbon Dioxide 26 Level Anion Gap 8 Blood Urea 35 H Nitrogen Creatinine 1.51 H Est Glomerular Filtrat Rate mL/min Glucose Level 184 Calcium Level 7.8 L Phosphorus Level 2.6 Magnesium Level 2.1 Test 11/13/18 05:10 11/13/18 05:12 11/13/18 08:36 Lab Scanned BLOOD TRANSFUSIO Report N Bedside Glucose 172 184 Exam/Review of Systems Exam Vitals Vital Signs Date Temp Pulse Resp B/P (MAP) Pulse Ox O2 O2 Flow FiO2 Time Delivery Rate 11/13/18 71 08:00 11/13/18 20 125/65 95 Mechanical 06:15 (85) Ventilator 11/13/18 100 05:59 11/13/18 98.9 04:00 11/10/18 3.0 20:00 Intake and Output 11/12/18 11/12/18 11/13/18 1515:00 23:00 07:00 IntakeIntake Total 528.0 ml 984.5 ml 455.5 ml OutputOutput Total 860 ml 705 ml 225 ml BalanceBalance -332.0 ml 279.5 ml 230.5 ml Results Results 24hrs Laboratory Tests Test 11/12/18 10:46 11/12/18 13:11 11/12/18 17:18 11/12/18 21:04 White Blood Count 8.1 Red Blood Count 2.25 L Hemoglobin 6.9 *L 9.3 #L Hematocrit 22.2 L 28.1 #L Mean Corpuscular 98.7 Volume Mean Corpuscular 30.7 Hemoglobin Mean Corpuscular 31.1 L Hemoglobin Concen t Red Cell 13.3 Distribution Width Platelet Count 167 Mean Platelet 10.8 H Volume Immature 0.700 H Granulocytes % Neutrophils % 72.6 Lymphocytes % 13.0 L Monocytes % 8.9 Eosinophils % 4.1 Basophils % 0.7 Nucleated Red 0.0 Blood Cells % Immature 0.060 H Granulocytes # Neutrophils # 5.8 Lymphocytes # 1.1 Monocytes # 0.7 Eosinophils # 0.3 Basophils # 0.1 Nucleated Red 0.0 Blood Cells # Creatine Kinase 120 Creatine Kinase 1.1 Index Creatinine Kinase 1.36 MB (Mass) Troponin I 0.168 *H Bedside Glucose 201 158 Test 11/12/18 21:09 11/12/18 21:37 11/13/18 01:41 11/13/18 04:30 Bedside Glucose 151 159 173 White Blood Count 8.4 Red Blood Count 2.74 #L Hemoglobin 8.4 L Hematocrit 25.7 L Mean Corpuscular 93.8 Volume Mean Corpuscular 30.7 Hemoglobin Mean Corpuscular 32.7 Hemoglobin Concen t Red Cell 14.8 H Distribution Width Platelet Count 199 Mean Platelet 10.7 H Volume Immature 0.600 H Granulocytes % Neutrophils % 69.0 Lymphocytes % 15.4 Monocytes % 11.2 H Eosinophils % 3.0 Basophils % 0.8 Nucleated Red 0.0 Blood Cells % Immature 0.050 H Granulocytes # Neutrophils # 5.8 Lymphocytes # 1.3 Monocytes # 0.9 Eosinophils # 0.3 Basophils # 0.1 Nucleated Red 0.0 Blood Cells # Activated 35.4 H Partial Thrombopl ast Time Sodium Level 139 Potassium Level 4.0 Chloride Level 105 Carbon Dioxide 26 Level Anion Gap 8 Blood Urea 35 H Nitrogen Creatinine 1.51 H Est Glomerular Filtrat Rate mL/min Glucose Level 184 Calcium Level 7.8 L Phosphorus Level 2.6 Magnesium Level 2.1 Test 11/13/18 05:10 11/13/18 05:12 11/13/18 08:36 Lab Scanned BLOOD TRANSFUSIO Report N Bedside Glucose 172 184 Medications Medication Current Medications Ergocalciferol (Drisdol) 50,000 unit Sa PO Last administered on 11/09/18at 09:28; Admin Dose 50,000 UNIT; Start 11/09/18 at 09:00 Miscellaneous Medication (Bystolic) 20 mg DAILY PO Last administered on 11/11/18at 09:03; Admin Dose 20 MG; Start 11/04/18 at 09:00; Status Hold Clonidine (Catapres) 0.1 mg Q6H PRN PO SBP>160; Start 11/04/18 at 09:00 IV Flush (NS 3 ml) 3 ml PER PROTOCOL IV ; Start 11/04/18 at 09:00 Ondansetron HCl (Zofran Inj) 4 mg Q6H PRN IV NAUSEA/VOMITING; Start 11/04/18 at 09:00 Acetaminophen (Tylenol Tab) 650 mg Q6H PRN PO .PAIN 1-3 OR TEMP; Start 11/04/18 at 09:00 Acetaminophen/ Hydrocodone Bitart ([place] (5/325)) 1 tab Q6H PRN PO .MOD PAIN 4- 6 Last administered on 11/10/18at 17:11; Admin Dose 1 TAB; Start 11/04/18 at 09:00 Docusate Sodium (Colace) 100 mg Q12H PRN PO .CONSTIPATION; Start 11/04/18 at 09:00 Miscellaneous Information 1 ea NOTE XX ; Start 11/04/18 at 09:00 Glucose (Glutose) 15 gm Q15M PRN PO DECREASED GLUCOSE; Start 11/04/18 at 09:00 Glucose (Glutose) 22.5 gm Q15M PRN PO DECREASED GLUCOSE; Start 11/04/18 at 09:00 Dextrose (D50w Syringe) 25 ml Q15M PRN IV DECREASED GLUCOSE; Start 11/04/18 at 09:00 Dextrose (D50w Syringe) 50 ml Q15M PRN IV DECREASED GLUCOSE; Start 11/04/18 at 09:00 Glucagon (Glucagen) 1 mg Q15M PRN IM DECREASED GLUCOSE; Start 11/04/18 at 09:00 Glucose (Glutose) 15 gm Q15M PRN BUCCAL DECREASED GLUCOSE; Start 11/04/18 at 09:00 Miscellaneous Information Patients own medicat... BID@10,16 XX Last administered on 11/10/18at 15:28; Admin Dose 1 EA; Start 11/04/18 at 16:00 Povidone Iodine (Povidone-Iodine) 1 applic BID TOP Last administered on at 09:22; Admin Dose 1 APPLIC; Start 11/05/18 at 21:00 Sodium Hypochlorite (Dakins Diluted (40)) 1 applic BID TP Last administered on 11/13/18at 09:22; Admin Dose 1 APPLIC; Start 11/07/18 at 09:00 Insulin Glargine (Lantus) 30 units DAILY@0800 SC Last administered on 11/13/18at 08:39; Admin Dose 30 UNITS; Start 11/08/18 at 08:00 Hydralazine HCl (Apresoline) 10 mg Q4H PRN IV sbp >160 Last administered on 11/08/18at 08:59; Admin Dose 10 MG; Start 11/08/18 at 09:00 Morphine Sulfate (morphine) 2 mg Q4H PRN IV SEVERE PAIN LEVEL 7-10 Last administered on 11/10/18 01:20; Admin Dose 2 MG; Start 11/08/18 at 09:00 Daptomycin 500 mg/ Sodium Chloride 100 ml @ 200 mls/hr Q24H IVPB Last adminis tered on 11/12/18 16:22; Admin Dose 200 MLS/HR; Start 11/08/18 at 16:00 Famotidine (Pepcid) 20 mg DAILY NGT Last administered on 11/13/18 09:21; Admin Dose 20 MG; Start 11/11/18 at 09:30 Piperacillin Sod/ Tazobactam Sod 100 ml @ 200 mls/hr Q8 IVPB Last administered on 11/13/18 05:29; Admin Dose 200 MLS/HR; Start 11/11/18 at 14:00 Fentanyl 100 ml @ 2.5 mls/hr TITRATE IV Last administered on 11/12/18 18:56; Admin Dose 2.5 MLS/HR; Start 11/11/18 at 09:30 Midazolam HCl 50 ml @ 1 mls/hr TITRATE IV Last administered on 11/13/18 05:54; Admin Dose 5 MLS/HR; Start 11/11/18 at 10:30 Albuterol (Ventolin Hfa) 2 puff Q6H RESP THERAPY INH Last administered on 11/13/18 08:36; Admin Dose 2 PUFF; Start 11/11/18 at 20:00 Ipratropium [place] (Atrovent Hfa) 4 puff Q6H RESP THERAPY INH Last adm inistered on 11/13/18 08:36; Admin Dose 4 PUFF; Start 11/11/18 at 20:00 Atropine Sulfate (Atropine) 0.5 mg PRN PRN IV SYMPTOMATIC BRADYCARDIA; Start 11/11/18 at 23:00 Insulin Aspart (Novolog Insulin Pen) NOVOLOG *MODERATE* ALGORI... Q4 SC Last administered on 11/13/18 08:40; Admin Dose 4 UNIT; Start 11/12/18 at 09:00 Aspirin (Aspirin) 325 mg DAILY GTB Last administered on 11/13/18 09:21; Admin Dose 325 MG; Start 11/13/18 at 09:00 Clopidogrel Bisulfate (plaVIX) 75 mg DAILY GTB Last administered on 11/13/18at 09:21; Admin Dose 75 MG; Start 11/13/18 at 09:00 Atorvastatin Calcium (Lipitor) 20 mg QHS GTB ; Start 11/13/18 at 21:00 Gabapentin (Neurontin Liquid) 300 mg BID GTB Last administered on 11/13/18at 09:21; Admin Dose 300 MG; Start 11/13/18 at 09:00 Hydralazine HCl (Apresoline) 100 mg TID GTB Last administered on 11/13/18at 09:21; Admin Dose 100 MG; Start 11/13/18 at 09:00 KARL WOOD MD Nov 13, 2018 09:43
[2018-11-13] MEDS ORDERED: BISACODYL 10 MG SUPP PR PRN (10:00)
[2018-11-13] MEDS ORDERED: SENNA/DOCUSATE NA (8.6MG/50MG) TAB NGT PRN (10:00)
[2018-11-13] MEDS: POLYETHYLENE GLYCOL 17 GM PACKET NGT SCH (10:05)
[2018-11-13] MEDS: METOCLOPRAMIDE 10 MG INJ IV SCH ×3 (10:05→21:39)
[2018-11-13] MEDS ORDERED: DOCUSATE SODIUM 10 MG/ML (10ML CUP) GTB PRN (11:00)
--- NOTE | 2018-11-13 11:35 | CONS ---
Consult Date/Type/Reason Admit Date/Time Nov 04, 2018 at 07:34 Initial Consult Date 11/11/18 Type of Consult Pulmonary Requesting Provider: KARL WOOD MD Date/Time of Note DATE: 11/13/18 TIME: 11:30 Subjective No significant changes continues to require FiO2 on mechanical ventilation. Chest x-ray demonstrates bilateral infiltrates versus interstitial edema. Objective Vital Signs Date Temp Pulse Resp B/P (MAP) Pulse Ox O2 O2 Flow FiO2 Time Delivery Rate 11/13/18 90 08:00 11/13/18 71 08:00 11/13/18 20 125/65 95 Mechanical 06:15 (85) Ventilator 11/13/18 98.9 04:00 11/10/18 3.0 20:00 Intake and Output 11/12/18 11/12/18 11/13/18 1515:00 23:00 07:00 IntakeIntake Total 528.0 ml 984.5 ml 455.5 ml OutputOutput Total 860 ml 705 ml 225 ml BalanceBalance -332.0 ml 279.5 ml 230.5 ml Exam GENERAL: Well-nourished, well-developed gentleman, orally intubated on mechanical ventilation, appears comfortable at rest, no acute distress. VITAL SIGNS: NECK: Supple. No JVD or lymphadenopathy. CARDIAC: S1, S2, no added sounds or murmurs. CHEST: Diminished air entry bilaterally. ABDOMEN: Soft, nontender. No guarding or rebound. EXTREMITIES: No cyanosis, clubbing, 1+ edema. NEUROLOGIC: Generalized weakness. Vent Setting Ventilator Support Mode: AC Fraction of Inspired Oxygen pe: 90 Positive End Expiratory Pressu: 5.0 Results/Medications Result Diagram: 11/13/18 0430 11/13/18 0430 Results 24 hrs Laboratory Tests Test 11/12/18 13:11 11/12/18 17:18 11/12/18 21:04 11/12/18 21:09 Bedside Glucose 201 158 151 Hemoglobin 9.3 #L Hematocrit 28.1 #L Test 11/12/18 21:37 11/13/18 01:41 11/13/18 04:30 11/13/18 05:10 Bedside Glucose 159 173 White Blood Count 8.4 Red Blood Count 2.74 #L Hemoglobin 8.4 L Hematocrit 25.7 L Mean Corpuscular 93.8 Volume Mean Corpuscular 30.7 Hemoglobin Mean Corpuscular 32.7 Hemoglobin Concen t Red Cell 14.8 H Distribution Width Platelet Count 199 Mean Platelet 10.7 H Volume Immature 0.600 H Granulocytes % Neutrophils % 69.0 Lymphocytes % 15.4 Monocytes % 11.2 H Eosinophils % 3.0 Basophils % 0.8 Nucleated Red 0.0 Blood Cells % Immature 0.050 H Granulocytes # Neutrophils # 5.8 Lymphocytes # 1.3 Monocytes # 0.9 Eosinophils # 0.3 Basophils # 0.1 Nucleated Red 0.0 Blood Cells # Activated 35.4 H Partial Thrombopl ast Time Sodium Level 139 Potassium Level 4.0 Chloride Level 105 Carbon Dioxide 26 Level Anion Gap 8 Blood Urea 35 H Nitrogen Creatinine 1.51 H Est Glomerular Filtrat Rate mL/min Glucose Level 184 Calcium Level 7.8 L Phosphorus Level 2.6 Magnesium Level 2.1 Albumin 2.7 L Lab Scanned BLOOD TRANSFUSIO Report N Test 11/13/18 05:12 11/13/18 08:36 Bedside Glucose 172 184 Medications Current Medications Ergocalciferol (Drisdol) 50,000 unit Sa PO Last administered on 11/09/18at 09:28; Admin Dose 50,000 UNIT; Start 11/09/18 at 09:00 Miscellaneous Medication (Bystolic) 20 mg DAILY PO Last administered on 11/11/18at 09:03; Admin Dose 20 MG; Start 11/04/18 at 09:00; Status Hold Clonidine (Catapres) 0.1 mg Q6H PRN PO SBP>160; Start 11/04/18 at 09:00 IV Flush (NS 3 ml) 3 ml PER PROTOCOL IV ; Start 11/04/18 at 09:00 Ondansetron HCl (Zofran Inj) 4 mg Q6H PRN IV NAUSEA/VOMITING; Start 11/04/18 at 09:00 Acetaminophen (Tylenol Tab) 650 mg Q6H PRN PO .PAIN 1-3 OR TEMP; Start 11/04/18 at 09:00 Acetaminophen/ Hydrocodone Bitart ([place] (5/325)) 1 tab Q6H PRN PO .MOD PAIN 4- 6 Last administered on 11/10/18at 17:11; Admin Dose 1 TAB; Start 11/04/18 at 09:00 Miscellaneous Information 1 ea NOTE XX ; Start 11/04/18 at 09:00 Glucose (Glutose) 15 gm Q15M PRN PO DECREASED GLUCOSE; Start 11/04/18 at 09:00 Glucose (Glutose) 22.5 gm Q15M PRN PO DECREASED GLUCOSE; Start 11/04/18 at 09:00 Dextrose (D50w Syringe) 25 ml Q15M PRN IV DECREASED GLUCOSE; Start 11/04/18 at 09:00 Dextrose (D50w Syringe) 50 ml Q15M PRN IV DECREASED GLUCOSE; Start 11/04/18 at 09:00 Glucagon (Glucagen) 1 mg Q15M PRN IM DECREASED GLUCOSE; Start 11/04/18 at 09:00 Glucose (Glutose) 15 gm Q15M PRN BUCCAL DECREASED GLUCOSE; Start 11/04/18 at 09:00 Miscellaneous Information Patients own medicat... BID@10,16 XX Last admi nistered on 11/10/18 15:28; Admin Dose 1 EA; Start 11/04/18 at 16:00 Povidone Iodine (Povidone-Iodine) 1 applic BID TOP Last administered on 11/13/18 09:22; Admin Dose 1 APPLIC; Start 11/05/18 at 21:00 Sodium Hypochlorite (Dakins Diluted ()) 1 applic BID TP Last administered on 11/13/18 09:22; Admin Dose 1 APPLIC; Start 11/07/18 at 09:00 Insulin Glargine (Lantus) 30 units DAILY@0800 SC Last administered on 11/13/18 08:39; Admin Dose 30 UNITS; Start 11/08/18 at 08:00 Hydralazine HCl (Apresoline) 10 mg Q4H PRN IV sbp >160 Last administered on 11/08/18 08:59; Admin Dose 10 MG; Start 11/08/18 at 09:00 Morphine Sulfate (morphine) 2 mg Q4H PRN IV SEVERE PAIN LEVEL 7-10 Last administered on 11/10/18 01:20; Admin Dose 2 MG; Start 11/08/18 at 09:00 Daptomycin 500 mg/ Sodium Chloride 100 ml @ 200 mls/hr Q24H IVPB Last administered on 11/12/18 16:22; Admin Dose 200 MLS/HR; Start 11/08/18 at 16:00 Famotidine (Pepcid) 20 mg DAILY NGT Last administered on 11/13/18 09:21; Admin Dose 20 MG; Start 11/11/18 at 09:30 Piperacillin Sod/ Tazobactam Sod 100 ml @ 200 mls/hr Q8 IVPB Last administered on 11/13/18 05:29; Admin Dose 200 MLS/HR; Start 11/11/18 at 14:00 Fentanyl 100 ml @ 2.5 mls/hr TITRATE IV Last administered on 11/12/18 18:56; Admin Dose 2.5 MLS/HR; Start 11/11/18 at 09:30 Midazolam HCl 50 ml @ 1 mls/hr TITRATE IV Last administered on 11/13/18 05:54; Admin Dose 5 MLS/HR; Start 11/11/18 at 10:30 Albuterol (Ventolin Hfa) 2 puff Q6H RESP THERAPY INH Last administered on 11/13/18 08:36; Admin Dose 2 PUFF; Start 11/11/18 at 20:00 Ipratropium [place] (Atrovent Hfa) 4 puff Q6H RESP THERAPY INH Last administered on 11/13/18 08:36; Admin Dose 4 PUFF; Start 11/11/18 at 20:00 Atropine Sulfate (Atropine) 0.5 mg PRN PRN IV SYMPTOMATIC BRADYCARDIA; Start 11/11/18 at 23:00 Insulin Aspart (Novolog Insulin Pen) NOVOLOG *MODERATE* ALGORI... Q4 SC Last administered on 11/13/18 08:40; Admin Dose 4 UNIT; Start 11/12/18 at 09:00 Aspirin (Aspirin) 325 mg DAILY GTB Last administered on 11/13/18 09:21; Admin Dose 325 MG; Start 11/13/18 at 09:00 Clopidogrel Bisulfate (plaVIX) 75 mg DAILY GTB Last administered on 11/13/18 09:21; Admin Dose 75 MG; Start 11/13/18 at 09:00 Atorvastatin Calcium (Lipitor) 20 mg QHS GTB ; Start 11/13/18 at 21:00 Gabapentin (Neurontin Liquid) 300 mg BID GTB Last administered on 11/13/18 09:21; Admin Dose 300 MG; Start 11/13/18 at 09:00 Hydralazine HCl (Apresoline) 100 mg TID GTB Last administered on 11/13/18at 09:21; Admin Dose 100 MG; Start 11/13/18 at 09:00 Metoclopramide HCl (Reglan) 10 mg Q6H IV Last administered on 11/13/18at 10:05; Admin Dose 10 MG; Start 11/13/18 at 10:00 Polyethylene Glycol (Miralax) 17 gm DAILY NGT Last administered on 11/13/18at 10:05; Admin Dose 17 GM; Start 11/13/18 at 10:00 Senna/Docusate Sodium (Senokot-S) 1 tab BID PRN NGT constipation; Start 11/13/18 at 10:00 Bisacodyl (Dulcolax Supp) 10 mg DAILY PRN [place] CONSTIPATION; Start 11/13/18 at 10:00 Docusate Sodium (Colace Liquid Cup) 100 mg Q12H PRN GTB .CONSTIPATION Last administered on 11/13/18at 10:57; Admin Dose 100 MG; Start 11/13/18 at 11:00 Assessment/Plan Hospital Course (Demo Recall) IMPRESSION AND PLAN: 1. Acute hypoxemic respiratory failure likely following cardiopulmonary arrest. 2. New onset bradycardia.Likely secondary to b sharon. 3. Peripheral vascular disease. 4. Poorly controlled diabetes. 5. Anemia, no GIB PLAN: 1. Lasix 2. Continue mechanical ventilation. 3. CT chest noncontrast to evaluate lung parenchyma. 4. Discontinue propofol, transition to fentanyl and Versed. 5. Replace electrolytes. 6. Deep vein thrombosis and gastrointestinal prophylaxis. 7. Vascular recommendations regarding postop wound care, also appreciate podiatry recommendations. Critical care time 40 minutes. EDWIGE CARRANZA MD, [facility] Nov 13, 2018 11:35
--- NOTE | 2018-11-13 11:48 | PN ---
Date/Time of Note Date/Time of Note DATE: 11/13/18 TIME: 11:44 Assessment/Plan Lines/Catheters IV Catheter Type (from Nrs): Peripheral IV Vora in Place (from Nrs): Yes Assessment/Plan Assessment/Plan Left foot well perfused s/p ilio-femoral bypass and fem-PT bypass, good graft pulse, foot warm Respiratory failure on vent - ? aspiration, HD stable s/p cardiac arrest 2 days ago Supportive care per team Subjective 24 Hr Interval Summary Intubated and sedated with 100% FIO2. No pressors. Exam/Review of Systems Vital Signs Vitals Vital Signs Date Temp Pulse Resp B/P (MAP) Pulse Ox O2 O2 Flow FiO2 Time Delivery Rate 11/13/18 90 08:00 11/13/18 71 08:00 11/13/18 20 125/65 95 Mechanical 06:15 (85) Ventilator 11/13/18 98.9 04:00 11/10/18 3.0 20:00 Intake and Output 11/12/18 11/12/18 11/13/18 1515:00 23:00 07:00 IntakeIntake Total 528.0 ml 984.5 ml 455.5 ml OutputOutput Total 860 ml 705 ml 225 ml BalanceBalance -332.0 ml 279.5 ml 230.5 ml Exam Free Text/Dictation Edematous. 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
--- NOTE | 2018-11-13 12:08 | CONS ---
Assessment/Plan Assessment/Plan Hospital Course (Demo Recall) IMPRESSION: 1. Preoperative evaluation prior to possible need for peripheral revascularization surgery.-neg trop x 3 and NL EF by echo with no sig valve abnl 2. Peripheral arterial disease with nonhealing gangrenous changes in left toe ulceration. 3. Hypertension, under reasonable control on current medications. 4. Dyslipidemia. 5. Diabetes mellitus. 6. s/p cardiopulmonary arrest 7. Bradycardic intermittent by tele 8. Positive troponin after arrest-? secondary to or primary to arrest Recc: -Now in ICU s/p arrest -trend cardiac enzymes which are downtrending in the setting of renal failure -Continue asa/plavix/statin -serial ecg's -Continue abx's and f/u cx data -continue steroids -local wound care -Continue hydralazine -Bystolic still held given initial bradycardia -f/u echo to reassess EF -heparin now d/c'd secondary to anemia -follow volume status on lasix diuresis To have chest CT to further eval lung parenchyma Consultation Date/Type/Reason Admit Date/Time Nov 04, 2018 at 07:34 Initial Consult Date 11/06/18 Type of Consult Cardiology Reason for Consultation cardiopulmonary arrest Requesting Provider: KARL WOOD MD Date/Time of Note DATE: 11/13/18 TIME: 11:57 Exam/Review of Systems Vital Signs Vitals Vital Signs Date Temp Pulse Resp B/P (MAP) Pulse Ox O2 O2 Flow FiO2 Time Delivery Rate 11/13/18 90 08:00 11/13/18 71 08:00 11/13/18 20 125/65 95 Mechanical 06:15 (85) Ventilator 11/13/18 98.9 04:00 11/10/18 3.0 20:00 Intake and Output 11/12/18 11/12/18 11/13/18 1515:00 23:00 07:00 IntakeIntake Total 528.0 ml 984.5 ml 455.5 ml OutputOutput Total 860 ml 705 ml 225 ml BalanceBalance -332.0 ml 279.5 ml 230.5 ml Exam Exam Review of Systems: CONSTITUTIONAL: No fevers, chills. PULMONARY: intuated CARDIOVASCULAR: No chest pain/palpitations GASTROINTESTINAL: No nausea/vomiting. GENITOURINARY: No hematuria/dysuria. MUSCULOSKELETAL: No myagias/arthalgias. PSYCHIATRIC: The patient denies depression. NEUROLOGIC: sedated Constitutional: other (sedated) Psych: no complaints Head: normocephalic ENMT: intubated Neck: supple, jvd (9 cm water) Respiratory: diminished breath sounds (at bases/B) Cardiovascular: regular rate and rhythm Gastrointestinal: soft, non-tender Extremities: edema (none/) Neurological: other (No focal deficits) Labs Result Diagram: 11/13/18 0430 11/13/18 0430 Results 24hrs Laboratory Tests Test 11/12/18 13:11 11/12/18 17:18 11/12/18 21:04 11/12/18 21:09 Bedside Glucose 201 158 151 Hemoglobin 9.3 #L Hematocrit 28.1 #L Test 11/12/18 21:37 11/13/18 01:41 11/13/18 04:30 11/13/18 05:10 Bedside Glucose 159 173 White Blood Count 8.4 Red Blood Count 2.74 #L Hemoglobin 8.4 L Hematocrit 25.7 L Mean Corpuscular 93.8 Volume Mean Corpuscular 30.7 Hemoglobin Mean Corpuscular 32.7 Hemoglobin Concen t Red Cell 14.8 H Distribution Width Platelet Count 199 Mean Platelet 10.7 H Volume Immature 0.600 H Granulocytes % Neutrophils % 69.0 Lymphocytes % 15.4 Monocytes % 11.2 H Eosinophils % 3.0 Basophils % 0.8 Nucleated Red 0.0 Blood Cells % Immature 0.050 H Granulocytes # Neutrophils # 5.8 Lymphocytes # 1.3 Monocytes # 0.9 Eosinophils # 0.3 Basophils # 0.1 Nucleated Red 0.0 Blood Cells # Activated 35.4 H Partial Thrombopl ast Time Sodium Level 139 Potassium Level 4.0 Chloride Level 105 Carbon Dioxide 26 Level Anion Gap 8 Blood Urea 35 H Nitrogen Creatinine 1.51 H Est Glomerular Filtrat Rate mL/min Glucose Level 184 Calcium Level 7.8 L Phosphorus Level 2.6 Magnesium Level 2.1 Albumin 2.7 L Lab Scanned BLOOD TRANSFUSIO Report N Test 11/13/18 05:12 11/13/18 08:36 Bedside Glucose 172 184 Medications Medications Current Medications Ergocalciferol (Drisdol) 50,000 unit Sa PO Last administered on 11/09/18at 09:28; Admin Dose 50,000 UNIT; Start 11/09/18 at 09:00 Miscellaneous Medication (Bystolic) 20 mg DAILY PO Last administered on 11/11/18at 09:03; Admin Dose 20 MG; Start 11/04/18 at 09:00; Status Hold Clonidine (Catapres) 0.1 mg Q6H PRN PO SBP>160; Start 11/04/18 at 09:00 IV Flush (NS 3 ml) 3 ml PER PROTOCOL IV ; Start 11/04/18 at 09:00 Ondansetron HCl (Zofran Inj) 4 mg Q6H PRN IV NAUSEA/VOMITING; Start 11/04/18 at 09:00 Acetaminophen (Tylenol Tab) 650 mg Q6H PRN PO .PAIN 1-3 OR TEMP; Start 11/04/18 at 09:00 Acetaminophen/ Hydrocodone Bitart ([place] (5/325)) 1 tab Q6H PRN PO .MOD PAIN 4- 6 Last administered on 11/10/18at 17:11; Admin Dose 1 TAB; Start 11/04/18 at 09:00 Miscellaneous Information 1 ea NOTE XX ; Start 11/04/18 at 09:00 Glucose (Glutose) 15 gm Q15M PRN PO DECREASED GLUCOSE; Start 11/04/18 at 09:00 Glucose (Glutose) 22.5 gm Q15M PRN PO DECREASED GLUCOSE; Start 11/04/18 at 09:00 Dextrose (D50w Syringe) 25 ml Q15M PRN IV DECREASED GLUCOSE; Start 11/04/18 at 09:00 Dextrose (D50w Syringe) 50 ml Q15M PRN IV DECREASED GLUCOSE; Start 11/04/18 at 09:00 Glucagon (Glucagen) 1 mg Q15M PRN IM DECREASED GLUCOSE; Start 11/04/18 at 09:00 Glucose (Glutose) 15 gm Q15M PRN BUCCAL DECREASED GLUCOSE; Start 11/04/18 at 09:00 Miscellaneous Information Patients own medicat... BID@10,16 XX Last administered on 11/10/18at 15:28; Admin Dose 1 EA; Start 11/04/18 at 16:00 Povidone Iodine (Povidone-Iodine) 1 applic BID TOP Last administered on 11/13/18at 09:22; Admin Dose 1 APPLIC; Start 11/05/18 at 21:00 Sodium Hypochlorite (Dakins Diluted ()) 1 applic BID TP Last administered on 11/13/18 09:22; Admin Dose 1 APPLIC; Start 11/07/18 at 09:00 Insulin Glargine (Lantus) 30 units DAILY@0800 SC Last administered on 11/13/18 08:39; Admin Dose 30 UNITS; Start 11/08/18 at 08:00 Hydralazine HCl (Apresoline) 10 mg Q4H PRN IV sbp >160 Last administered on 11/08/18 08:59; Admin Dose 10 MG; Start 11/08/18 at 09:00 Morphine Sulfate (morphine) 2 mg Q4H PRN IV SEVERE PAIN LEVEL 7-10 Last administered on 11/10/18 01:20; Admin Dose 2 MG; Start 11/08/18 at 09:00 Daptomycin 500 mg/ Sodium Chloride 100 ml @ 200 mls/hr Q24H IVPB Last administered on 11/12/18 16:22; Admin Dose 200 MLS/HR; Start 11/08/18 at 16:00 Famotidine (Pepcid) 20 mg DAILY NGT Last administered on 11/13/18 09:21; Admin Dose 20 MG; Start 11/11/18 at 09:30 Piperacillin Sod/ Tazobactam Sod 100 ml @ 200 mls/hr Q8 IVPB Last administered on 11/13/18 05:29; Admin Dose 200 MLS/HR; Start 11/11/18 at 14:00 Fentanyl 100 ml @ 2.5 mls/hr TITRATE IV Last administered on 11/12/18 18:56; Admin Dose 2.5 MLS/HR; Start 11/11/18 at 09:30 Midazolam HCl 50 ml @ 1 mls/hr TITRATE IV Last administered on 11/13/18 05:54; Admin Dose 5 MLS/HR; Start 11/11/18 at 10:30 Albuterol (Ventolin Hfa) 2 puff Q6H RESP THERAPY INH Last administered on 11/13/18 08:36; Admin Dose 2 PUFF; Start 11/11/18 at 20:00 Ipratropium [place] (Atrovent Hfa) 4 puff Q6H RESP THERAPY INH Last administered on 11/13/18 08:36; Admin Dose 4 PUFF; Start 11/11/18 at 20:00 Atropine Sulfate (Atropine) 0.5 mg PRN PRN IV SYMPTOMATIC BRADYCARDIA; Start 11/11/18 at 23:00 Insulin Aspart (Novolog Insulin Pen) NOVOLOG *MODERATE* ALGORI... Q4 SC Last administered on 11/13/18at 08:40; Admin Dose 4 UNIT; Start 11/12/18 at 09:00 Aspirin (Aspirin) 325 mg DAILY GTB Last administered on 11/13/18at 09:21; Admin Dose 325 MG; Start 11/13/18 at 09:00 Clopidogrel Bisulfate (plaVIX) 75 mg DAILY GTB Last administered on 11/13/18at 0 9:21; Admin Dose 75 MG; Start 11/13/18 at 09:00 Atorvastatin Calcium (Lipitor) 20 mg QHS GTB ; Start 11/13/18 at 21:00 Gabapentin (Neurontin Liquid) 300 mg BID GTB Last administered on 11/13/18at 09:21; Admin Dose 300 MG; Start 11/13/18 at 09:00 Hydralazine HCl (Apresoline) 100 mg TID GTB Last administered on 11/13/18 09:21; Admin Dose 100 MG; Start 11/13/18 at 09:00 Metoclopramide HCl (Reglan) 10 mg Q6H IV Last administered on 11/13/18at 10:05; Admin Dose 10 MG; Start 11/13/18 at 10:00 Polyethylene Glycol (Miralax) 17 gm DAILY NGT Last administered on 11/13/18at 10:05; Admin Dose 17 GM; Start 11/13/18 at 10:00 Senna/Docusate Sodium (Senokot-S) 1 tab BID PRN NGT constipation; Start at 10:00 Bisacodyl (Dulcolax Supp) 10 mg DAILY PRN [place] CONSTIPATION; Start 11/13/18 at 10:00 Docusate Sodium (Colace Liquid Cup) 100 mg Q12H PRN GTB .CONSTIPATION Last administered on 11/13/18at 10:57; Admin Dose 100 MG; Start 11/13/18 at 11:00 Methylprednisolone Sodium Succinate (Solu-Medrol) 40 mg Q8 IV ; Start 11/13/18 at 14:00 KLEVER HUNT Nov 13, 2018 12:08
[2018-11-13] MEDS: METHYLPREDNISOLONE 40 MG INJ IV SCH ×2 (13:40→21:39)
--- NOTE | 2018-11-13 14:50 | CONS ---
Assessment/Plan Assessment/Plan Hospital Course (Demo Recall) No events overnight patient looks comfortable no fevers. WBC today 8.4 no shift no bands BUN 35 creatinine 1.51 Culture of the toe growing gram-negative rods CT of the chest this morning revealed moderate bilateral pleural effusions possible atelectasis or pneumonia mild anasarca. No evidence of mass of or lymphadenopathy. Please see full report in the chart Antimicrobials: Zosyn, daptomycin Indwelling: Endotracheal tube, NG tube, Vora Physical examination: Well-developed elderly man who is in no distress head atraumatic normocephalic neck is supple chest rise symmetrical breath sounds diminished bases heart S1-S2 abdomen soft bowel sounds present extremities with left foot dressing intact Assessment: 1. Status post cardiac arrest 2. Non-ST elevation [place] 3. Acute respiratory failure, possibly aspirated 4. Left foot gangrene 5. Peripheral arterial disease status post left femoral to posterior tibial bypass 11/08/18 6. Diabetes 7. History of left foot second toe amputation 8. Acute kidney insufficiency Plan:Stable continue present care, vent management per pulmonary, f/u cx's Consultation Date/Type/Reason Admit Date/Time Nov 04, 2018 at 07:34 Initial Consult Date Type of Consult id Requesting Provider: KARL WOOD MD Date/Time of Note DATE: 11/13/18 TIME: 14:49 Exam/Review of Systems Exam Vitals Vital Signs Date Temp Pulse Resp B/P (MAP) Pulse Ox O2 O2 Flow FiO2 Time Delivery Rate 11/13/18 72 9 108/55 97 14:15 (72) 11/13/18 Mechanical 14:00 Ventilator 11/13/18 98.7 12:15 11/13/18 80 12:00 11/10/18 3.0 20:00 Intake and Output 11/12/18 11/12/18 11/13/18 1515:00 23:00 07:00 IntakeIntake Total 528.0 ml 984.5 ml 495.5 ml OutputOutput Total 860 ml 705 ml 300 ml BalanceBalance -332.0 ml 279.5 ml 195.5 ml Results Result Diagram: 11/13/18 0430 11/13/18 0430 Results 24hrs Laboratory Tests Test 11/12/18 17:18 11/12/18 21:04 11/12/18 21:09 11/12/18 21:37 Bedside Glucose 158 151 159 Hemoglobin 9.3 #L Hematocrit 28.1 #L Test 11/13/18 01:41 11/13/18 04:30 11/13/18 05:10 11/13/18 05:12 Bedside Glucose 173 172 White Blood Count 8.4 Red Blood Count 2.74 #L Hemoglobin 8.4 L Hematocrit 25.7 L Mean Corpuscular 93.8 Volume Mean Corpuscular 30.7 Hemoglobin Mean Corpuscular 32.7 Hemoglobin Concen t Red Cell 14.8 H Distribution Width Platelet Count 199 Mean Platelet 10.7 H Volume Immature 0.600 H Granulocytes % Neutrophils % 69.0 Lymphocytes % 15.4 Monocytes % 11.2 H Eosinophils % 3.0 Basophils % 0.8 Nucleated Red 0.0 Blood Cells % Immature 0.050 H Granulocytes # Neutrophils # 5.8 Lymphocytes # 1.3 Monocytes # 0.9 Eosinophils # 0.3 Basophils # 0.1 Nucleated Red 0.0 Blood Cells # Activated 35.4 H Partial Thrombopl ast Time Sodium Level 139 Potassium Level 4.0 Chloride Level 105 Carbon Dioxide 26 Level Anion Gap 8 Blood Urea 35 H Nitrogen Creatinine 1.51 H Est Glomerular Filtrat Rate mL/min Glucose Level 184 Calcium Level 7.8 L Phosphorus Level 2.6 Magnesium Level 2.1 Albumin 2.7 L Lab Scanned BLOOD TRANSFUSIO Report N Test 11/13/18 08:36 11/13/18 13:11 Bedside Glucose 184 160 Medications Medication Current Medications Ergocalciferol (Drisdol) 50,000 unit Sa PO Last administered on 11/09/18at 09:28; Admin Dose 50,000 UNIT; Start 11/09/18 at 09:00 Miscellaneous Medication (Bystolic) 20 mg DAILY PO Last administered on 11/11/18at 09:03; Admin Dose 20 MG; Start 11/04/18 at 09:00; Status Hold Clonidine (Catapres) 0.1 mg Q6H PRN PO SBP>160; Start 11/04/18 at 09:00 IV Flush (NS 3 ml) 3 ml PER PROTOCOL IV ; Start 11/04/18 at 09:00 Ondansetron HCl (Zofran Inj) 4 mg Q6H PRN IV NAUSEA/VOMITING; Start 11/04/18 at 09:00 Acetaminophen (Tylenol Tab) 650 mg Q6H PRN PO .PAIN 1-3 OR TEMP; Start 11/04/18 at 09:00 Acetaminophen/ Hydrocodone Bitart ([place] (5/325)) 1 tab Q6H PRN PO .MOD PAIN 4- 6 Last administered on 11/10/18at 17:11; Admin Dose 1 TAB; Start 11/04/18 at 09:00 Miscellaneous Information 1 ea NOTE XX ; Start 11/04/18 at 09:00 Glucose (Glutose) 15 gm Q15M PRN PO DECREASED GLUCOSE; Start 11/04/18 at 09:00 Glucose (Glutose) 22.5 gm Q15M PRN PO DECREASED GLUCOSE; Start 11/04/18 at 09:00 Dextrose (D50w Syringe) 25 ml Q15M PRN IV DECREASED GLUCOSE; Start 11/04/18 at 09:00 Dextrose (D50w Syringe) 50 ml Q15M PRN IV DECREASED GLUCOSE; Start 11/04/18 at 09:00 Glucagon (Glucagen) 1 mg Q15M PRN IM DECREASED GLUCOSE; Start 11/04/18 at 09:00 Glucose (Glutose) 15 gm Q15M PRN BUCCAL DECREASED GLUCOSE; Start 11/04/18 at 09:00 Miscellaneous Information Patients own medicat... BID@10,16 XX Last administered on 11/10/18at 15:28; Admin Dose 1 EA; Start 11/04/18 at 16:00 Povidone Iodine (Povidone-Iodine) 1 applic BID TOP Last administered on 09:22; Admin Dose 1 APPLIC; Start 11/05/18 at 21:00 Sodium Hypochlorite (Dakins Diluted ()) 1 applic BID TP Last administered on 11/13/18at 09:22; Admin Dose 1 APPLIC; Start 11/07/18 at 09:00 Insulin Glargine (Lantus) 30 units DAILY@0800 SC Last administered on 11/13/18at 08:39; Admin Dose 30 UNITS; Start 11/08/18 at 08:00 Hydralazine HCl (Apresoline) 10 mg Q4H PRN IV sbp >160 Last administered on 11/08/18at 08:59; Admin Dose 10 MG; Start 11/08/18 at 09:00 Morphine Sulfate (morphine) 2 mg Q4H PRN IV SEVERE PAIN LEVEL 7-10 Last administered on 11/10/18 01:20; Admin Dose 2 MG; Start 11/08/18 at 09:00 Daptomycin 500 mg/ Sodium Chloride 100 ml @ 200 mls/hr Q24H IVPB Last administered on 11/12/18 16:22; Admin Dose 200 MLS/HR; Start 11/08/18 at 16:00 Famotidine (Pepcid) 20 mg DAILY NGT Last administered on 11/13/18 09:21; Admin Dose 20 MG; Start 11/11/18 at 09:30 Piperacillin Sod/ Tazobactam Sod 100 ml @ 200 mls/hr Q8 IVPB Last administered on 11/13/18 13:40; Admin Dose 200 MLS/HR; Start 11/11/18 at 14:00 Fentanyl 100 ml @ 2.5 mls/hr TITRATE IV Last administered on 11/12/18 18:56; Admin Dose 2.5 MLS/HR; Start 11/11/18 at 09:30 Midazolam HCl 50 ml @ 1 mls/hr TITRATE IV Last administered on 11/13/18 05:54; Admin Dose 5 MLS/HR; Start 11/11/18 at 10:30 Albuterol (Ventolin Hfa) 2 puff Q6H RESP THERAPY INH Last administered on 11/13/18 13:19; Admin Dose 2 PUFF; Start 11/11/18 at 20:00 Ipratropium [place] (Atrovent Hfa) 4 puff Q6H RESP THERAPY INH Last adminis tered on 11/13/18 13:18; Admin Dose 4 PUFF; Start 11/11/18 at 20:00 Atropine Sulfate (Atropine) 0.5 mg PRN PRN IV SYMPTOMATIC BRADYCARDIA; Start 11/11/18 at 23:00 Insulin Aspart (Novolog Insulin Pen) NOVOLOG *MODERATE* ALGORI... Q4 SC Last administered on 11/13/18 13:14; Admin Dose 2 UNIT; Start 11/12/18 at 09:00 Aspirin (Aspirin) 325 mg DAILY GTB Last administered on 11/13/18 09:21; Admin Dose 325 MG; Start 11/13/18 at 09:00 Clopidogrel Bisulfate (plaVIX) 75 mg DAILY GTB Last administered on 11/13/18 09:21; Admin Dose 75 MG; Start 11/13/18 at 09:00 Atorvastatin Calcium (Lipitor) 20 mg QHS GTB ; Start 11/13/18 at 21:00 Gabapentin (Neurontin Liquid) 300 mg BID GTB Last administered on 11/13/18 09:21; Admin Dose 300 MG; Start 11/13/18 at 09:00 Hydralazine HCl (Apresoline) 100 mg TID GTB Last administered on 11/13/18 13:12; Admin Dose 100 MG; Start 11/13/18 at 09:00 Metoclopramide HCl (Reglan) 10 mg Q6H IV Last administered on 11/13/18 10:05; Admin Dose 10 MG; Start 11/13/18 at 10:00 Polyethylene Glycol (Miralax) 17 gm DAILY NGT Last administered on 11/13/18 10:05; Admin Dose 17 GM; Start 11/13/18 at 10:00 Senna/Docusate Sodium (Senokot-S) 1 tab BID PRN NGT constipation; Start 11/13/18 at 10:00 Bisacodyl (Dulcolax Supp) 10 mg DAILY PRN [place] CONSTIPATION; Start 11/13/18 at 10:00 Docusate Sodium (Colace Liquid Cup) 100 mg Q12H PRN GTB .CONSTIPATION Last administered on 11/13/18 10:57; Admin Dose 100 MG; Start 11/13/18 at 11:00 Methylprednisolone Sodium Succinate (Solu-Medrol) 40 mg Q8 IV Last administered on 11/13/18 13:40; Admin Dose 40 MG; Start 11/13/18 at 14:00 HERRERA MURILLO NP Nov 13, 2018 14:50
[2018-11-13] MEDS: DAPTOMYCIN 500 MG in SOD CHLORIDE 0.9% 100 ML IVPB SCH (15:49)
--- NOTE | 2018-11-13 16:24 | PN ---
Date/Time of Note Date/Time of Note DATE: 11/13/18 TIME: 16:17 Assessment/Plan VTE Prophylaxis Risk score (from Ns)>0 risk: 14 SCD applied (from [facility]): No SCD contraindicated: other Pharmacological prophylaxis: NA/contraindicated Pharm contraindication: anticoag not tolerated Lines/Catheters IV C[facility]ter Type (from [facility] Peripheral IV Central line still needed: Yes Urinary Cath still in place: Yes Reason Cath still needed: terminal illness/intractable pain Assessment/Plan Assessment/Plan 1. Acute hypoxic respiratory failure - still requiring elevated O2 requirement. Currently on 80% FIO2 - Repeat CXR shows no change - Once renal function more stable, will check CT scan chest - Pulmonology on board for vent management 2. Cardiac arrest s/p ROSC - Cardiology on board and appreciate recommendations - ECHO with preserved EF - trops trending downward 3. Bradycardia - no further episodes - holding Bystolic 4. left fifth toe gangrenous ulcer - ID on board and appreciate consultation. Will continue current antibiotics - Continue local wound care - Podiatry on board and will plan for further amputation in the near future once stable 5. Severe peripheral vascular disease - s/p left femoral endarterectomy, iliofemoral bypass and femoral to posterior tibial bypass done on November 08, 2018 - Vascular surgery consultation appreciated 6. Diabetes Mellitus - A1c noted - Basal/bolus insulin - increasing ISS to moderate 5. Acute kidney injury- improving - nephrology consultation appreciated and most likely due to contrast induced nephropathy as well as hemodynamic - continue monitoring and avoid nephrotoxic agents 6. Essential HTN - holding home medications at this time - BP stable 7. Peripheral neuropathy - cont. gabapentin 8. HLD - On statin 9. Chronic anemia - Stable H&H. Monitor - no need for transfusions 10. Urinary retention - Urology on board and appreciate recommendations. continue schneider care for now 11. Disposition - Continue weaning down FIO2 as tolerated. Once stable, will need amputation per Podiatry >35 minutes of critical care time spent with patient Result Diagram: 11/13/18 0430 11/13/18 0430 Results 24hrs Laboratory Tests Test 11/12/18 17:18 11/12/18 21:04 11/12/18 21:09 11/12/18 21:37 Bedside Glucose 158 151 159 Hemoglobin 9.3 #L Hematocrit 28.1 #L Test 11/13/18 01:41 11/13/18 04:30 11/13/18 05:10 11/13/18 05:12 Bedside Glucose 173 172 White Blood Count 8.4 Red Blood Count 2.74 #L Hemoglobin 8.4 L Hematocrit 25.7 L Mean Corpuscular 93.8 Volume Mean Corpuscular 30.7 Hemoglobin Mean Corpuscular 32.7 Hemoglobin Concen t Red Cell 14.8 H Distribution Width Platelet Count 199 Mean Platelet 10.7 H Volume Immature 0.600 H Granulocytes % Neutrophils % 69.0 Lymphocytes % 15.4 Monocytes % 11.2 H Eosinophils % 3.0 Basophils % 0.8 Nucleated Red 0.0 Blood Cells % Immature 0.050 H Granulocytes # Neutrophils # 5.8 Lymphocytes # 1.3 Monocytes # 0.9 Eosinophils # 0.3 Basophils # 0.1 Nucleated Red 0.0 Blood Cells # Activated 35.4 H Partial Thrombopl ast Time Sodium Level 139 Potassium Level 4.0 Chloride Level 105 Carbon Dioxide 26 Level Anion Gap 8 Blood Urea 35 H Nitrogen Creatinine 1.51 H Est Glomerular Filtrat Rate mL/min Glucose Level 184 Calcium Level 7.8 L Phosphorus Level 2.6 Magnesium Level 2.1 Albumin 2.7 L Lab Scanned BLOOD TRANSFUSIO Report N Test 11/13/18 08:36 11/13/18 13:11 Bedside Glucose 184 160 Subjective 24 Hr Interval Summary Free Text/Dictation Patient still with high FIO2 requirement and unable to performed CPAP trial. Still with no BM. No noted bradycardia episodes. Exam/Review of Systems Exam Vitals Vital Signs Date Temp Pulse Resp B/P (MAP) Pulse Ox O2 O2 Flow FiO2 Time Delivery Rate 11/13/18 92 100 15:35 11/13/18 72 9 108/55 14:15 (72) 11/13/18 Mechanical 14:00 Ventilator 11/13/18 98.7 12:15 11/10/18 3.0 20:00 Intake and Output 11/12/18 11/12/18 11/13/18 1515:00 23:00 07:00 IntakeIntake Total 528.0 ml 984.5 ml 495.5 ml OutputOutput Total 860 ml 705 ml 300 ml BalanceBalance -332.0 ml 279.5 ml 195.5 ml Exam General: intubated and sedated. no acute distress Head: Normocephalic atraumatic Eyes: EOMI, pupils reactive to light Neck: Supple Respiratory: Coarse breath sounds bilaterally. no wheezing appreciated Cardiovascular: S1, S2, regular rate and rhythm, no obvious murmurs Gastrointestinal: soft, protuberant, non tender palpation diffusely, bowel sounds heard. Skin: No new skin lesions, LLE bandage clean and dry, mild warmth appreciated Results Results 24hrs Laboratory Tests Test 11/12/18 17:18 11/12/18 21:04 11/12/18 21:09 11/12/18 21:37 Bedside Glucose 158 151 159 Hemoglobin 9.3 #L Hematocrit 28.1 #L Test 11/13/18 01:41 11/13/18 04:30 11/13/18 05:10 11/13/18 05:12 Bedside Glucose 173 172 White Blood Count 8.4 Red Blood Count 2.74 #L Hemoglobin 8.4 L Hematocrit 25.7 L Mean Corpuscular 93.8 Volume Mean Corpuscular 30.7 Hemoglobin Mean Corpuscular 32.7 Hemoglobin Concen t Red Cell 14.8 H Distribution Width Platelet Count 199 Mean Platelet 10.7 H Volume Immature 0.600 H Granulocytes % Neutrophils % 69.0 Lymphocytes % 15.4 Monocytes % 11.2 H Eosinophils % 3.0 Basophils % 0.8 Nucleated Red 0.0 Blood Cells % Immature 0.050 H Granulocytes # Neutrophils # 5.8 Lymphocytes # 1.3 Monocytes # 0.9 Eosinophils # 0.3 Basophils # 0.1 Nucleated Red 0.0 Blood Cells # Activated 35.4 H Partial Thrombopl ast Time Sodium Level 139 Potassium Level 4.0 Chloride Level 105 Carbon Dioxide 26 Level Anion Gap 8 Blood Urea 35 H Nitrogen Creatinine 1.51 H Est Glomerular Filtrat Rate mL/min Glucose Level 184 Calcium Level 7.8 L Phosphorus Level 2.6 Magnesium Level 2.1 Albumin 2.7 L Lab Scanned BLOOD TRANSFUSIO Report N Test 11/13/18 08:36 11/13/18 13:11 Bedside Glucose 184 160 Medications Medication Current Medications Ergocalciferol (Drisdol) 50,000 unit Sa PO Last administered on 11/09/18at 09 :28; Admin Dose 50,000 UNIT; Start 11/09/18 at 09:00 Miscellaneous Medication (Bystolic) 20 mg DAILY PO Last administered on 11/11/18at 09:03; Admin Dose 20 MG; Start 11/04/18 at 09:00; Status Hold Clonidine (Catapres) 0.1 mg Q6H PRN PO SBP>160; Start 11/04/18 at 09:00 IV Flush (NS 3 ml) 3 ml PER PROTOCOL IV ; Start 11/04/18 at 09:00 Ondansetron HCl (Zofran Inj) 4 mg Q6H PRN IV NAUSEA/VOMITING; Start 11/04/18 at 09:00 Acetaminophen (Tylenol Tab) 650 mg Q6H PRN PO .PAIN 1-3 OR TEMP; Start 11/04/18 at 09:00 Acetaminophen/ Hydrocodone Bitart ([place] (5/325)) 1 tab Q6H PRN PO .MOD PAIN 4- 6 Last administered on 11/10/18at 17:11; Admin Dose 1 TAB; Start 11/04/18 at 09:00 Miscellaneous Information 1 ea NOTE XX ; Start 11/04/18 at 09:00 Glucose (Glutose) 15 gm Q15M PRN PO DECREASED GLUCOSE; Start 11/04/18 at 09:00 Glucose (Glutose) 22.5 gm Q15M PRN PO DECREASED GLUCOSE; Start 11/04/18 at 09 :00 Dextrose (D50w Syringe) 25 ml Q15M PRN IV DECREASED GLUCOSE; Start 11/04/18 at 09:00 Dextrose (D50w Syringe) 50 ml Q15M PRN IV DECREASED GLUCOSE; Start 11/04/18 at 09:00 Glucagon (Glucagen) 1 mg Q15M PRN IM DECREASED GLUCOSE; Start 11/04/18 at 09:00 Glucose (Glutose) 15 gm Q15M PRN BUCCAL DECREASED GLUCOSE; Start 11/04/18 at 09:00 Miscellaneous Information Patients own medicat... BID@10,16 XX Last administered on 11/10/18at 15:28; Admin Dose 1 EA; Start 11/04/18 at 16:00 Povidone Iodine (Povidone-Iodine) 1 applic BID TOP Last administered on 11/13/18at 09:22; Admin Dose 1 APPLIC; Start 11/05/18 at 21:00 Sodium Hypochlorite (Dakins Diluted ()) 1 applic BID TP Last administered on 11/13/18at 09:22; Admin Dose 1 APPLIC; Start 11/07/18 at 09:00 Insulin Glargine (Lantus) 30 units DAILY@0800 SC Last administered on 11/13/18 08:39; Admin Dose 30 UNITS; Start 11/08/18 at 08:00 Hydralazine HCl (Apresoline) 10 mg Q4H PRN IV sbp >160 Last administered on 11/08/18 08:59; Admin Dose 10 MG; Start 11/08/18 at 09:00 Morphine Sulfate (morphine) 2 mg Q4H PRN IV SEVERE PAIN LEVEL 7-10 Last administered on 11/10/18 01:20; Admin Dose 2 MG; Start 11/08/18 at 09:00 Daptomycin 500 mg/ Sodium Chloride 100 ml @ 200 mls/hr Q24H IVPB Last administered on 11/13/18 15:49; Admin Dose 200 MLS/HR; Start 11/08/18 at 16:00 Famotidine (Pepcid) 20 mg DAILY NGT Last administered on 11/13/18 09:21; Admin Dose 20 MG; Start 11/11/18 at 09:30 Piperacillin Sod/ Tazobactam Sod 100 ml @ 200 mls/hr Q8 IVPB Last administered on 11/13/18 13:40; Admin Dose 200 MLS/HR; Start 11/11/18 at 14:00 Fentanyl 100 ml @ 2.5 mls/hr TITRATE IV Last administered on 11/12/18 18:56; Admin Dose 2.5 MLS/HR; Start 11/11/18 at 09:30 Midazolam HCl 50 ml @ 1 mls/hr TITRATE IV Last administered on 11/13/18 15:53; Admin Dose 6 MLS/HR; Start 11/11/18 at 10:30 Albuterol (Ventolin Hfa) 2 puff Q6H RESP THERAPY INH Last administered on 11/13/18 13:19; Admin Dose 2 PUFF; Start 11/11/18 at 20:00 Ipratropium [place] (Atrovent Hfa) 4 puff Q6H RESP THERAPY INH Last administered on 11/13/18 13:18; Admin Dose 4 PUFF; Start 11/11/18 at 20:00 Atropine Sulfate (Atropine) 0.5 mg PRN PRN IV SYMPTOMATIC BRADYCARDIA; Start 11/11/18 at 23:00 Insulin Aspart (Novolog Insulin Pen) NOVOLOG *MODERATE* ALGORI... Q4 SC Last administered on 11/13/18 13:14; Admin Dose 2 UNIT; Start 11/12/18 at 09:00 Aspirin (Aspirin) 325 mg DAILY GTB Last administered on 11/13/18 09:21; Admin Dose 325 MG; Start 11/13/18 at 09:00 Clopidogrel Bisulfate (plaVIX) 75 mg DAILY GTB Last administered on 11/13/18 09:21; Admin Dose 75 MG; Start 11/13/18 at 09:00 Atorvastatin Calcium (Lipitor) 20 mg QHS GTB ; Start 11/13/18 at 21:00 Gabapentin (Neurontin Liquid) 300 mg BID GTB Last administered on 11/13/18 09:21; Admin Dose 300 MG; Start 11/13/18 at 09:00 Hydralazine HCl (Apresoline) 100 mg TID GTB Last administered on 11/13/18 13:12; Admin Dose 100 MG; Start 11/13/18 at 09:00 Metoclopramide HCl (Reglan) 10 mg Q6H IV Last administered on 11/13/18 15:49; Admin Dose 10 MG; Start 11/13/18 at 10:00 Polyethylene Glycol (Miralax) 17 gm DAILY NGT Last administered on 11/13/18 10:05; Admin Dose 17 GM; Start 11/13/18 at 10:00 Senna/Docusate Sodium (Senokot-S) 1 tab BID PRN NGT constipation Last administered on 11/13/18 16:05; Admin Dose 1 TAB; Start 11/13/18 at 10:00 Bisacodyl (Dulcolax Supp) 10 mg DAILY PRN [place] CONSTIPATION; Start 11/13/18 at 10:00 Docusate Sodium (Colace Liquid Cup) 100 mg Q12H PRN GTB .CONSTIPATION Last administered on 11/13/18 10:57; Admin Dose 100 MG; Start 11/13/18 at 11:00 Methylprednisolone Sodium Succinate (Solu-Medrol) 40 mg Q8 IV Last administered on 11/13/18 13:40; Admin Dose 40 MG; Start 11/13/18 at 14:00 KARL WOOD MD Nov 13, 2018 16:24
--- NOTE | 2018-11-13 16:33 | RADRPT ---
Echocardiogram Report Patient Name: María MCFARLANE ID: [id number] : 1945 (72y 11m)Study Date: 11/12/2018 4:23:40 PM Gender: MAccession #: [id number] Tech: Florin Melo [facility] Location: [address] Ref.Physician: KLEVER EM Height(Cm): BSA: Weight(Kg): Quality: AdequateOrder Physician: KLEVER EM Account #: Procedures: Echocardiographic Report: Transthoracic echocardiogram examination. Indications: Eval LV Fx. Findings: Left Ventricle: Normal left ventricular cavity size. Normal left ventricular systolic function. Sigmoid septum. The left ventricular ejection fraction is visually estimated at 55-60 %. Right Ventricle: Normal right ventricular size. Normal right ventricular systolic function. Left Atrium: The left atrium is normal in size and appearance. Right Atrium: The right atrium is normal in size and appearance. Mitral Valve: Mild mitral annular calcification. Calcified Leaflets Mitral valve leaflet appear mildly clacified. Trivial mitral regurgitation. Aortic Valve: Aortic cusps appear mildly calcified. Tricuspid Valve: Normal appearance and function of the tricuspid valve with trace physiologic regurgitation. Pericardium: Normal pericardium with no significant pericardial effusion. IVC: Inferior vena cava with poor respiratory collapse, however, patient on ventilator. Conclusions: Normal left ventricular cavity size. Normal left ventricular systolic function. Sigmoid septum. The left ventricular ejection fraction is visually estimated at 55-60 %. Mild mitral annular calcification. Calcified Leaflets Mitral valve leaflet appear mildly clacified. Trivial mitral regurgitation. Normal appearance and function of the tricuspid valve with trace physiologic regurgitation. Electronically Signed By: Klever Em 2018-11-13 16:32:22 PDT
[2018-11-13] MEDS: ATORVASTATIN 20 MG TAB GTB SCH (20:56)
[2018-11-14] VITALS (73 sets, daily range): BP systolic 89–151; BP diastolic 43–87; PULSE 64–80; RESP 0–20
[2018-11-14] MEDS: MIDAZOLAM (DRIP) 50 mg/50 mL 50 ML IV SCH ×3 (00:39→19:18)
[2018-11-14] MEDS: FENTAnyl (DRIP) 1000 mcg/100mL 100 ML IV SCH ×2 (00:41→13:35)
[2018-11-14] MEDS: INSULIN ASPART [NOVOLOG] 3 ML PEN SC SCH ×6 (00:51→20:58)
[2018-11-14] MEDS: ALBUTEROL HFA 8 GM INHALER INH SCH ×4 (01:56→20:40)
[2018-11-14] MEDS: IPRATROPIUM (HFA) 12.9 GM INHALER INH SCH ×4 (01:56→20:40)
[2018-11-14] MEDS: METOCLOPRAMIDE 10 MG INJ IV SCH ×4 (04:56→22:04)
[2018-11-14] MEDS: METHYLPREDNISOLONE 40 MG INJ IV SCH ×3 (05:14→23:27)
[2018-11-14] MEDS: PIPER-TAZO 3.375 GM IV (PMX) 100 ML IVPB SCH ×3 (05:22→22:04)
[2018-11-14] MEDS ORDERED: FUROSEMIDE 40 MG INJ IV ONE (08:00)
[2018-11-14] MEDS: INSULIN GLARGINE [LANTus] (100 UNITS/ML) SYG SC SCH (08:45)
[2018-11-14] MEDS: FAMOTIDINE 20 MG TAB NGT SCH (08:51)
[2018-11-14] MEDS: CLOPIDOGREL 75 MG TAB GTB SCH (08:51)
[2018-11-14] MEDS: POLYETHYLENE GLYCOL 17 GM PACKET NGT SCH (08:51)
[2018-11-14] MEDS: ASPIRIN 325 MG TAB GTB SCH (08:51)
[2018-11-14] MEDS: DAKINS 0.0125%(1/40) 473 ML SOLUTION TP SCH ×2 (08:52→22:04)
--- NOTE | 2018-11-14 08:52 | PN ---
DATE: 11/14/2018 SUBJECTIVE: The patient remains critically ill on full ventilatory support. No other acute events n oted overnight. No hemoptysis, hematemesis, hematochezia. OBJECTIVE: VITAL SIGNS: Blood pressure is 142/70, pulse is 68, temperature 98.6. HEENT: Head is normocephalic. NECK: Supple. HEART: Regular rate. LUNGS: Show diminished breath sounds at the base. ABDOMEN: Soft, nontender to palpation without rebound or guarding. EXTREMITIES: Negative for clubbing, cyanosis. Positive edema. DERMATOLOGIC: No rashes. MUSCULOSKELETAL: No joint effusions. NEUROLOGIC: No focal deficits. MEDICATIONS: The patient's medications have been reviewed. LABORATORY DATA: Has been reviewed. IMAGING STUDIES: Has been reviewed. ASSESSMENT AND PLAN: 1. Nonoliguric acute kidney injury. Etiology is secondary to hemodynamics, possible contrast associ ated nephropathy. The patient's renal function has been fluctuating, but appears to be stabilizing b etween creatinine of 1.2 to 1.7 mg/dL. At this point, continue current treatment plan, supportive ca re, renally dose all meds, monitor closely on diuretic therapy. 2. Volume overload. Continue intermittent diuretic therapy, monitor electrolytes and renal function closely. We will give additional dose of Lasix. 3. Anemia. Monitor hemoglobin and hematocrit levels. 4. Mineral bone disorder. Monitor calcium and phosphorus levels. 5. Ventilator-dependent respiratory failure. Vent settings and ABG was reviewed. Continue to monit or. 6. Elevated troponin, possible non-ST elevation myocardial infarction type 2. Continue medical victorino gement. 7. Arrhythmia. Continue to monitor. 8. Status post cardiac arrest. Etiology is likely respiratory. Continue to monitor. Follow up wit h Cardiology. 9. Peripheral vascular disease, status post left femoral endarterectomy, status post iliofemoral byp ass. 10. Hypertension. Continue to monitor. 11. Dyslipidemia. Continue statin therapy. 12. Acute encephalopathy, etiology is toxic metabolic. Dictated By: JEAN CLAUDE RUFFIN/BOBO Conf#: [id number] DID#: [id number] CC: TOMASA SCOTT;*EndCC*
[2018-11-14] MEDS: POVIDONE IODINE 10% 28.4 GM OINT TOP SCH ×2 (08:53→20:47)
[2018-11-14] MEDS: GABAPENTIN (50 MG/ML PO SYG) GTB SCH ×2 (09:04→20:56)
--- NOTE | 2018-11-14 10:22 | CONS ---
Consult Date/Type/Reason Admit Date/Time Nov 04, 2018 at 07:34 Initial Consult Date 11/11/18 Type of Consult Pulmonary Requesting Provider: KARL WOOD MD Date/Time of Note DATE: 11/14/18 TIME: 10:20 Subjective Still requiring 100% FiO2 chest x-ray shows worsening bilateral infiltrates and/or effusions consistent with ARDS. Objective Vital Signs Date Temp Pulse Resp B/P (MAP) Pulse Ox O2 O2 Flow FiO2 Time Delivery Rate 11/14/18 67 16 97 100 09:47 11/14/18 97.4 08:40 11/14/18 142/70 Mechanical 06:45 (94) Ventilator 11/10/18 3.0 20:00 Intake and Output 11/13/18 11/13/18 11/14/18 1515:00 23:00 07:00 IntakeIntake Total 522 ml 773.0 ml 620 ml OutputOutput Total 905 ml 260 ml 295 ml BalanceBalance -383 ml 513.0 ml 325 ml Exam GENERAL: Well-nourished, well-developed gentleman, orally intubated on mechanical ventilation, appears comfortable at rest, no acute distress. VITAL SIGNS: NECK: Supple. No JVD or lymphadenopathy. CARDIAC: S1, S2, no added sounds or murmurs. CHEST: Diminished air entry bilaterally. ABDOMEN: Soft, nontender. No guarding or rebound. EXTREMITIES: No cyanosis, clubbing, 1+ edema. NEUROLOGIC: Generalized weakness. Vent Setting Ventilator Support Mode: AC Fraction of Inspired Oxygen pe: 100 Positive End Expiratory Pressu: 8.0 Results/Medications Result Diagram: 11/14/18 0440 11/14/18 0440 Results 24 hrs Laboratory Tests Test 11/13/18 13:11 11/13/18 17:12 11/13/18 20:59 11/14/18 00:48 Bedside Glucose 160 182 187 247 H Test 11/14/18 04:40 11/14/18 04:46 11/14/18 07:00 11/14/18 08:42 White Blood Count 9.3 Red Blood Count 3.56 #L Hemoglobin 10.6 #L Hematocrit 33.3 #L Mean Corpuscular 93.5 Volume Mean Corpuscular 29.8 Hemoglobin Mean Corpuscular 31.8 L Hemoglobin Concen t Red Cell 14.6 H Distribution Width Platelet Count 234 Mean Platelet 10.7 H Volume Immature 0.600 H Granulocytes % Neutrophils % 83.4 H Lymphocytes % 12.1 L Monocytes % 3.6 Eosinophils % 0.1 Basophils % 0.2 Nucleated Red 0.0 Blood Cells % Immature 0.060 H Granulocytes # Neutrophils # 7.8 H Lymphocytes # 1.1 Monocytes # 0.3 Eosinophils # 0.0 Basophils # 0.0 Nucleated Red 0.0 Blood Cells # Sodium Level 141 Potassium Level 4.6 Chloride Level 104 Carbon Dioxide 26 Level Anion Gap 11 Blood Urea 40 H Nitrogen Creatinine 1.52 H Est Glomerular Filtrat Rate mL/min Glucose Level 278 H Calcium Level 8.2 L Phosphorus Level 3.7 Magnesium Level 2.2 Bedside Glucose 281 H 286 H Blood Gas Blood arterial Specimen Source Arterial Blood 11/14/2018 7:35:1 Date Drawn 8 AM Arterial Blood pH 7.360 (Temp corrected) Arterial Blood 45.0 pCO2 (Temp correct) Arterial Blood 63.1 L pO2 (Temp corrected) Arterial Blood 24.9 HCO3 Arterial Blood -0.7 Base Excess Arterial Blood 90.1 L Oxygen Saturation Jeison Test ACCEPTAB Arterial Blood Right Radial Gas Puncture Site Arterial 0.2 Blood Carboxyhemo globin Arterial Blood 0.3 Methemoglobin Blood Gas A-a O2 604.9 H Differential Oxyhemoglobin 89.6 L Percent Blood Gas 37.0 Temperature Blood Gas 16.0 Respiration Rate Blood Gas Actual 16 Respiration Rate Blood Gas VENT - AC Modality FiO2 100.0 Blood Gas Tidal 500.0 Volume Blood Gas Low 5.0 PEEP Setting Blood Gas TM Notified Whom Blood Gas 11/14/2018 7:57:5 Notified Time 6 AM Medications Current Medications Ergocalciferol (Drisdol) 50,000 unit Sa PO Last administered on 11/09/18at 09:28; Admin Dose 50,000 UNIT; Start 11/09/18 at 09:00 Miscellaneous Medication (Bystolic) 20 mg DAILY PO Last administered on 11/11/18 at 09:03; Admin Dose 20 MG; Start 11/04/18 at 09:00; Status Hold Clonidine (Catapres) 0.1 mg Q6H PRN PO SBP>160; Start 11/04/18 at 09:00 IV Flush (NS 3 ml) 3 ml PER PROTOCOL IV ; Start 11/04/18 at 09:00 Ondansetron HCl (Zofran Inj) 4 mg Q6H PRN IV NAUSEA/VOMITING; Start 11/04/18 at 09:00 Acetaminophen (Tylenol Tab) 650 mg Q6H PRN PO .PAIN 1-3 OR TEMP; Start 11/04/18 at 09:00 Acetaminophen/ Hydrocodone Bitart ([place] (5/325)) 1 tab Q6H PRN PO .MOD PAIN 4- 6 Last administered on 11/10/18at 17:11; Admin Dose 1 TAB; Start 11/04/18 at 09:00 Miscellaneous Information 1 ea NOTE XX ; Start 11/04/18 at 09:00 Glucose (Glutose) 15 gm Q15M PRN PO DECREASED GLUCOSE; Start 11/04/18 at 09:00 Glucose (Glutose) 22.5 gm Q15M PRN PO DECREASED GLUCOSE; Start 11/04/18 at 09:00 Dextrose (D50w Syringe) 25 ml Q15M PRN IV DECREASED GLUCOSE; Start 11/04/18 at 09:00 Dextrose (D50w Syringe) 50 ml Q15M PRN IV DECREASED GLUCOSE; Start 11/04/18 at 09:00 Glucagon (Glucagen) 1 mg Q15M PRN IM DECREASED GLUCOSE; Start 11/04/18 at 09:00 Glucose (Glutose) 15 gm Q15M PRN BUCCAL DECREASED GLUCOSE; Start 11/04/18 at 09:00 Miscellaneous Information Patients own medicat... BID@10,16 XX Last administered on 11/10/18at 15:28; Admin Dose 1 EA; Start 11/04/18 at 16:00 Povidone Iodine (Povidone-Iodine) 1 applic BID TOP Last administered on 11/14/18at 08:53; Admin Dose 1 APPLIC; Start 11/05/18 at 21:00 Sodium Hypochlorite (Dakins Diluted ()) 1 applic BID TP Last administered on 11/14/18at 08:52; Admin Dose 1 APPLIC; Start 11/07/18 at 09:00 Insulin Glargine (Lantus) 30 units DAILY@0800 SC Last administered on 11/14/18at 08:45; Admin Dose 30 UNITS; Start 11/08/18 at 08:00 Hydralazine HCl (Apresoline) 10 mg Q4H PRN IV sbp >160 Last administered on 11/08/18 08:59; Admin Dose 10 MG; Start 11/08/18 at 09:00 Morphine Sulfate (morphine) 2 mg Q4H PRN IV SEVERE PAIN LEVEL 7-10 Last administered on 11/10/18 01:20; Admin Dose 2 MG; Start 11/08/18 at 09:00 Daptomycin 500 mg/ Sodium Chloride 100 ml @ 200 mls/hr Q24H IVPB Last administered on 11/13/18 15:49; Admin Dose 200 MLS/HR; Start 11/08/18 at 16:00 Famotidine (Pepcid) 20 mg DAILY NGT Last administered on 11/14/18 08:51; Admin Dose 20 MG; Start 11/11/18 at 09:30 Piperacillin Sod/ Tazobactam Sod 100 ml @ 200 mls/hr Q8 IVPB Last administered on 11/14/18 05:22; Admin Dose 200 MLS/HR; Start 11/11/18 at 14:00 Fentanyl 100 ml @ 2.5 mls/hr TITRATE IV Last administered on 11/14/18 00:41; Admin Dose 5 MLS/HR; Start 11/11/18 at 09:30 Midazolam HCl 50 ml @ 1 mls/hr TITRATE IV Last administered on 11/14/18 00:39; Admin Dose 5 MLS/HR; Start 11/11/18 at 10:30 Albuterol (Ventolin Hfa) 2 puff Q6H RESP THERAPY INH Last administered on 11/14/18 08:24; Admin Dose 2 PUFF; Start 11/11/18 at 20:00 Ipratropium [place] (Atrovent Hfa) 4 puff Q6H RESP THERAPY INH Last administered on 11/14/18 08:24; Admin Dose 4 PUFF; Start 11/11/18 at 20:00 Atropine Sulfate (Atropine) 0.5 mg PRN PRN IV SYMPTOMATIC BRADYCARDIA; Start 11/11/18 at 23:00 Insulin Aspart (Novolog Insulin Pen) NOVOLOG *MODERATE* ALGORI... Q4 SC Last administered on 11/14/18 08:44; Admin Dose 8 UNIT; Start 11/12/18 at 09:00 Aspirin (Aspirin) 325 mg DAILY GTB Last administered on 11/14/18 08:51; Admin Dose 325 MG; Start 11/13/18 at 09:00 Clopidogrel Bisulfate (plaVIX) 75 mg DAILY GTB Last administered on 11/14/18 08:51; Admin Dose 75 MG; Start 11/13/18 at 09:00 Atorvastatin Calcium (Lipitor) 20 mg QHS GTB Last administered on 11/13/18 20:56; Admin Dose 20 MG; Start 11/13/18 at 21:00 Gabapentin (Neurontin Liquid) 300 mg BID GTB Last administered on 11/14/18 09:04; Admin Dose 300 MG; Start 11/13/18 at 09:00 Hydralazine HCl (Apresoline) 100 mg TID GTB Last administered on 11/14/18 08:51; Admin Dose 100 MG; Start 11/13/18 at 09:00 Metoclopramide HCl (Reglan) 10 mg Q6H IV Last administered on 11/14/18 09:05; Admin Dose 10 MG; Start 11/13/18 at 10:00 Polyethylene Glycol (Miralax) 17 gm DAILY NGT Last administered on 11/14/18 08:51; Admin Dose 17 GM; Start 11/13/18 at 10:00 Senna/Docusate Sodium (Senokot-S) 1 tab BID PRN NGT constipation Last administered on 11/13/18 16:05; Admin Dose 1 TAB; Start 11/13/18 at 10:00 Bisacodyl (Dulcolax Supp) 10 mg DAILY PRN [place] CONSTIPATION; Start 11/13/18 at 10:00 Docusate Sodium (Colace Liquid Cup) 100 mg Q12H PRN GTB .CONSTIPATION Last administered on 11/13/18 10:57; Admin Dose 100 MG; Start 11/13/18 at 11:00 Methylprednisolone Sodium Succinate (Solu-Medrol) 40 mg Q8 IV Last administered on 11/14/18 05:14; Admin Dose 40 MG; Start 11/13/18 at 14:00 Assessment/Plan Hospital Course (Demo Recall) IMPRESSION 1. Acute hypoxemic respiratory failure likely following cardiopulmonary arrest. Chest x-ray appears to be consistent with ARDS. 2. Recent new onset bradycardia.Likely secondary to b sharon. 3. History of peripheral vascular disease. 4. History of poorly controlled diabetes. 5. Anemia, no GIB PLAN: 1. Diuretics as tolerated. Ultrasound chest to evaluate for possible pleural effusions requiring thoracentesis 2. Continue mechanical ventilation. Increase PEEP and tidal volume adjusted. 3. CT chest noncontrast to evaluate lung parenchyma. Findings noted. 4. Continue fentanyl and Versed. 5. Replace electrolytes. 6. Deep vein thrombosis and gastrointestinal prophylaxis. 7. Vascular recommendations regarding postop wound care, also appreciate podiatry recommendations. Critical care time 40 minutes. EDWIGE CARRANZA MD, [facility] Nov 14, 2018 10:22
--- NOTE | 2018-11-14 11:42 | CONS ---
Assessment/Plan Assessment/Plan Hospital Course (Demo Recall) IMPRESSION: 1. Preoperative evaluation prior to possible need for peripheral revascularization surgery.-neg trop x 3 and NL EF by echo with no sig valve abnl. Echo repeat 11/13 with NL EF 2. Peripheral arterial disease with nonhealing gangrenous changes in left toe ulceration. 3. Hypertension, under reasonable control on current medications. 4. Dyslipidemia. 5. Diabetes mellitus. 6. s/p cardiopulmonary arrest 7. Bradycardic intermittent by tele 8. Positive troponin after arrest-? secondary to or primary to arrest, likley secondary to as no signifcant uptrend and now downtrended 9. Resp failure-on vent 100%, ? ARDS with component of volume overload/failure Recc: -Now in ICU s/p arrest -trend cardiac enzymes which have downtrended in the setting of renal failure -Continue asa/plavix/statin -serial ecg's -Continue abx's and f/u cx data -continue steroids/bronchodilators -local wound care -Continue hydralazine and follow reasonably controlled BP closely -Bystolic still held given initial bradycardia -heparin now d/c'd secondary to anemia requiring transfusions -follow volume status s/p dose IV lasix today Consultation Date/Type/Reason Admit Date/Time Nov 04, 2018 at 07:34 Initial Consult Date 11/06/18 Type of Consult Cardiology Reason for Consultation s/p cardiopulmonary arrest Requesting Provider: KARL WOOD MD Date/Time of Note DATE: 11/14/18 TIME: 11:37 Exam/Review of Systems Vital Signs Vitals Vital Signs Date Temp Pulse Resp B/P (MAP) Pulse Ox O2 O2 Flow FiO2 Time Delivery Rate 11/14/18 67 16 97 100 09:47 11/14/18 97.4 08:40 11/14/18 142/70 Mechanical 06:45 (94) Ventilator 11/10/18 3.0 20:00 Intake and Output 11/13/18 11/13/18 11/14/18 1515:00 23:00 07:00 IntakeIntake Total 522 ml 773.0 ml 620 ml OutputOutput Total 905 ml 260 ml 295 ml BalanceBalance -383 ml 513.0 ml 325 ml Exam Exam Review of Systems: CONSTITUTIONAL: No fevers, chills. PULMONARY: intubated CARDIOVASCULAR: No chest pain/palpitations GASTROINTESTINAL: No nausea/vomiting. GENITOURINARY: No hematuria/dysuria. MUSCULOSKELETAL: No myagias/arthalgias. PSYCHIATRIC: The patient denies depression. NEUROLOGIC: sedated Constitutional: other (sedated) Psych: no complaints Head: normocephalic ENMT: mucosa pink and moist Neck: supple, jvd (9 cm water) Respiratory: diminished breath sounds (at bases/B) Cardiovascular: regular rate and rhythm Gastrointestinal: soft, non-tender Musculoskeletal: muscle tone (normal) Extremities: pitting pedal edema (trace/B) Neurological: other (sedated) Labs Result Diagram: 11/14/18 0440 11/14/18 0440 Results 24hrs Laboratory Tests Test 11/13/18 13:11 11/13/18 17:12 11/13/18 20:59 11/14/18 00:48 Bedside Glucose 160 182 187 247 H Test 11/14/18 04:40 11/14/18 04:46 11/14/18 07:00 11/14/18 08:42 White Blood Count 9.3 Red Blood Count 3.56 #L Hemoglobin 10.6 #L Hematocrit 33.3 #L Mean Corpuscular 93.5 Volume Mean Corpuscular 29.8 Hemoglobin Mean Corpuscular 31.8 L Hemoglobin Concen t Red Cell 14.6 H Distribution Width Platelet Count 234 Mean Platelet 10.7 H Volume Immature 0.600 H Granulocytes % Neutrophils % 83.4 H Lymphocytes % 12.1 L Monocytes % 3.6 Eosinophils % 0.1 Basophils % 0.2 Nucleated Red 0.0 Blood Cells % Immature 0.060 H Granulocytes # Neutrophils # 7.8 H Lymphocytes # 1.1 Monocytes # 0.3 Eosinophils # 0.0 Basophils # 0.0 Nucleated Red 0.0 Blood Cells # Sodium Level 141 Potassium Level 4.6 Chloride Level 104 Carbon Dioxide 26 Level Anion Gap 11 Blood Urea 40 H Nitrogen Creatinine 1.52 H Est Glomerular Filtrat Rate mL/min Glucose Level 278 H Calcium Level 8.2 L Phosphorus Level 3.7 Magnesium Level 2.2 Bedside Glucose 281 H 286 H Blood Gas Blood arterial Specimen Source Arterial Blood 11/14/2018 7:35:1 Date Drawn 8 AM Arterial Blood pH 7.360 (Temp corrected) Arterial Blood 45.0 pCO2 (Temp correct) Arterial Blood 63.1 L pO2 (Temp corrected) Arterial Blood 24.9 HCO3 Arterial Blood -0.7 Base Excess Arterial Blood 90.1 L Oxygen Saturation Jeison Test ACCEPTAB Arterial Blood Right Radial Gas Puncture Site Arterial 0.2 Blood Carboxyhemo globin Arterial Blood 0.3 Methemoglobin Blood Gas A-a O2 604.9 H Differential Oxyhemoglobin 89.6 L Percent Blood Gas 37.0 Temperature Blood Gas 16.0 Respiration Rate Blood Gas Actual 16 Respiration Rate Blood Gas VENT - AC Modality FiO2 100.0 Blood Gas Tidal 500.0 Volume Blood Gas Low 5.0 PEEP Setting Blood Gas TM Notified Whom Blood Gas 11/14/2018 7:57:5 Notified Time 6 AM Medications Medications Current Medications Ergocalciferol (Drisdol) 50,000 unit Sa PO Last administered on 11/09/18at 09:28; Admin Dose 50,000 UNIT; Start 11/09/18 at 09:00 Miscellaneous Medication (Bystolic) 20 mg DAILY PO Last administered on 11/11/18 09:03; Admin Dose 20 MG; Start 11/04/18 at 09:00; Status Hold Clonidine (Catapres) 0.1 mg Q6H PRN PO SBP>160; Start 11/04/18 at 09:00 IV Flush (NS 3 ml) 3 ml PER PROTOCOL IV ; Start 11/04/18 at 09:00 Ondansetron HCl (Zofran Inj) 4 mg Q6H PRN IV NAUSEA/VOMITING; Start 11/04/18 at 09:00 Acetaminophen (Tylenol Tab) 650 mg Q6H PRN PO .PAIN 1-3 OR TEMP; Start 11/04/18 at 09:00 Acetaminophen/ Hydrocodone Bitart ([place] (5/325)) 1 tab Q6H PRN PO .MOD PAIN 4- 6 Last administered on 11/10/18at 17:11; Admin Dose 1 TAB; Start 11/04/18 at 09:00 Miscellaneous Information 1 ea NOTE XX ; Start 11/04/18 at 09:00 Glucose (Glutose) 15 gm Q15M PRN PO DECREASED GLUCOSE; Start 11/04/18 at 09:00 Glucose (Glutose) 22.5 gm Q15M PRN PO DECREASED GLUCOSE; Start 11/04/18 at 09:00 Dextrose (D50w Syringe) 25 ml Q15M PRN IV DECREASED GLUCOSE; Start 11/04/18 at 09:00 Dextrose (D50w Syringe) 50 ml Q15M PRN IV DECREASED GLUCOSE; Start 11/04/18 at 09:00 Glucagon (Glucagen) 1 mg Q15M PRN IM DECREASED GLUCOSE; Start 11/04/18 at 09:00 Glucose (Glutose) 15 gm Q15M PRN BUCCAL DECREASED GLUCOSE; Start 11/04/18 at 09:00 Miscellaneous Information Patients own medicat... BID@10,16 XX Last administered on 11/10/18 15:28; Admin Dose 1 EA; Start 11/04/18 at 16:00 Povidone Iodine (Povidone-Iodine) 1 applic BID TOP Last administered on 11/14/18 08:53; Admin Dose 1 APPLIC; Start 11/05/18 at 21:00 Sodium Hypochlorite (Dakins Diluted ()) 1 applic BID TP Last administered on 11/14/18 08:52; Admin Dose 1 APPLIC; Start 11/07/18 at 09:00 Insulin Glargine (Lantus) 30 units DAILY@0800 SC Last administered on 11/14/18 08:45; Admin Dose 30 UNITS; Start 11/08/18 at 08:00 Hydralazine HCl (Apresoline) 10 mg Q4H PRN IV sbp >160 Last administered on 11/08/18 08:59; Admin Dose 10 MG; Start 11/08/18 at 09:00 Morphine Sulfate (morphine) 2 mg Q4H PRN IV SEVERE PAIN LEVEL 7-10 Last administered on 11/10/18 01:20; Admin Dose 2 MG; Start 11/08/18 at 09:00 Daptomycin 500 mg/ Sodium Chloride 100 ml @ 200 mls/hr Q24H IVPB Last administered on 11/13/18 15:49; Admin Dose 200 MLS/HR; Start 11/08/18 at 16:00 Famotidine (Pepcid) 20 mg DAILY NGT Last administered on 11/14/18 08:51; Admin Dose 20 MG; Start 11/11/18 at 09:30 Piperacillin Sod/ Tazobactam Sod 100 ml @ 200 mls/hr Q8 IVPB Last administered on 11/14/18 05:22; Admin Dose 200 MLS/HR; Start 11/11/18 at 14:00 Fentanyl 100 ml @ 2.5 mls/hr TITRATE IV Last administered on 11/14/18 00:41; Admin Dose 5 MLS/HR; Start 11/11/18 at 09:30 Midazolam HCl 50 ml @ 1 mls/hr TITRATE IV Last administered on 11/14/18 00:39; Admin Dose 5 MLS/HR; Start 11/11/18 at 10:30 Albuterol (Ventolin Hfa) 2 puff Q6H RESP THERAPY INH Last administered on 11/14/18 08:24; Admin Dose 2 PUFF; Start 11/11/18 at 20:00 Ipratropium [place] (Atrovent Hfa) 4 puff Q6H RESP THERAPY INH Last administered on 11/14/18 08:24; Admin Dose 4 PUFF; Start 11/11/18 at 20:00 Atropine Sulfate (Atropine) 0.5 mg PRN PRN IV SYMPTOMATIC BRADYCARDIA; Start 11/11/18 at 23:00 Insulin Aspart (Novolog Insulin Pen) NOVOLOG *MODERATE* ALGORI... Q4 SC Last administered on 11/14/18 08:44; Admin Dose 8 UNIT; Start 11/12/18 at 09:00 Aspirin (Aspirin) 325 mg DAILY GTB Last administered on 11/14/18 08:51; Admin Dose 325 MG; Start 11/13/18 at 09:00 Clopidogrel Bisulfate (plaVIX) 75 mg DAILY GTB Last administered on 11/14/18 08:51; Admin Dose 75 MG; Start 11/13/18 at 09:00 Atorvastatin Calcium (Lipitor) 20 mg QHS GTB Last administered on 11/13/18 20:56; Admin Dose 20 MG; Start 11/13/18 at 21:00 Gabapentin (Neurontin Liquid) 300 mg BID GTB Last administered on 11/14/18 09:04; Admin Dose 300 MG; Start 11/13/18 at 09:00 Hydralazine HCl (Apresoline) 100 mg TID GTB Last administered on 11/14/18 08:51; Admin Dose 100 MG; Start 11/13/18 at 09:00 Metoclopramide HCl (Reglan) 10 mg Q6H IV Last administered on 11/14/18 09:05; Admin Dose 10 MG; Start 11/13/18 at 10:00 Polyethylene Glycol (Miralax) 17 gm DAILY NGT Last administered on 11/14/18 08:51; Admin Dose 17 GM; Start 11/13/18 at 10:00 Senna/Docusate Sodium (Senokot-S) 1 tab BID PRN NGT constipation Last administered on 11/13/18 16:05; Admin Dose 1 TAB; Start 11/13/18 at 10:00 Bisacodyl (Dulcolax Supp) 10 mg DAILY PRN [place] CONSTIPATION; Start 11/13/18 at 10:00 Docusate Sodium (Colace Liquid Cup) 100 mg Q12H PRN GTB .CONSTIPATION Last administered on 11/13/18at 10:57; Admin Dose 100 MG; Start 11/13/18 at 11:00 Methylprednisolone Sodium Succinate (Solu-Medrol) 40 mg Q8 IV Last administered on 11/14/18 05:14; Admin Dose 40 MG; Start 11/13/18 at 14:00 KLEVER HUNT Nov 14, 2018 11:41
--- NOTE | 2018-11-14 12:33 | CONS ---
Assessment/Plan Assessment/Plan Hospital Course (Demo Recall) No acute events patient remains intubated and sedated no fevers overnight. WBC 9.3 platelets 234 neutrophils 83.4 BUN 40 creatinine 1.52 Culture of the toe growing gram-negative rods Antimicrobials: Zosyn, daptomycin Indwelling: Endotracheal tube, NG tube, Vora Physical examination: Well-developed elderly man who is in no distress head atraumatic normocephalic neck is supple chest rise symmetrical breath sounds diminished bases heart S1-S2 abdomen soft bowel sounds present e xtremities with left foot dressing intact Assessment: 1. Status post cardiac arrest 2. Non-ST elevation [place] 3. Acute respiratory failure, possibly aspirated now with radiographic findings of ARDS 4. Left foot gangrene 5. Peripheral arterial disease status post left femoral to posterior tibial b ypass 11/08/18 6. Diabetes 7. History of left foot second toe amputation 8. Acute kidney insufficiency Plan: Remains unchanged, continue present care, vent management per pulmonary, f/u cx's Consultation Date/Type/Reason Admit Date/Time Nov 04, 2018 at 07:34 Initial Consult Date Type of Consult id Requesting Provider: KARL WOOD MD Date/Time of Note DATE: 11/14/18 TIME: 12:32 Exam/Review of Systems Exam Vitals Vital Signs Date Temp Pulse Resp B/P (MAP) Pulse Ox O2 O2 Flow FiO2 Time Delivery Rate 11/14/18 97.5 12:05 11/14/18 67 16 97 100 09:47 11/14/18 142/70 Mechanical 06:45 (94) Ventilator 11/10/18 3.0 20:00 Intake and Output 11/13/18 11/13/18 11/14/18 1515:00 23:00 07:00 IntakeIntake Total 522 ml 773.0 ml 620 ml OutputOutput Total 905 ml 260 ml 295 ml BalanceBalance -383 ml 513.0 ml 325 ml Results Result Diagram: 11/14/1843911/14/18439 Results 24hrs Laboratory Tests Test 11/13/18 13:11 11/13/18 17:12 11/13/18 20:59 11/14/18 00:48 Bedside Glucose 160 182 187 247 H Test 11/14/18 04:40 11/14/18 04:46 11/14/18 07:00 11/14/18 08:42 White Blood Count 9.3 Red Blood Count 3.56 #L Hemoglobin 10.6 #L Hematocrit 33.3 #L Mean Corpuscular 93.5 Volume Mean Corpuscular 29.8 Hemoglobin Mean Corpuscular 31.8 L Hemoglobin Concen t Red Cell 14.6 H Distribution Width Platelet Count 234 Mean Platelet 10.7 H Volume Immature 0.600 H Granulocytes % Neutrophils % 83.4 H Lymphocytes % 12.1 L Monocytes % 3.6 Eosinophils % 0.1 Basophils % 0.2 Nucleated Red 0.0 Blood Cells % Immature 0.060 H Granulocytes # Neutrophils # 7.8 H Lymphocytes # 1.1 Monocytes # 0.3 Eosinophils # 0.0 Basophils # 0.0 Nucleated Red 0.0 Blood Cells # Sodium Level 141 Potassium Level 4.6 Chloride Level 104 Carbon Dioxide 26 Level Anion Gap 11 Blood Urea 40 H Nitrogen Creatinine 1.52 H Est Glomerular Filtrat Rate mL/min Glucose Level 278 H Calcium Level 8.2 L Phosphorus Level 3.7 Magnesium Level 2.2 Bedside Glucose 281 H 286 H Blood Gas Blood arterial Specimen Source Arterial Blood 11/14/2018 7:35:1 Date Drawn 8 AM Arterial Blood pH 7.360 (Temp corrected) Arterial Blood 45.0 pCO2 (Temp correct) Arterial Blood 63.1 L pO2 (Temp corrected) Arterial Blood 24.9 HCO3 Arterial Blood -0.7 Base Excess Arterial Blood 90.1 L Oxygen Saturation Jeison Test ACCEPTAB Arterial Blood Right Radial Gas Puncture Site Arterial 0.2 Blood Carboxyhemo globin Arterial Blood 0.3 Methemoglobin Blood Gas A-a O2 604.9 H Differential Oxyhemoglobin 89.6 L Percent Blood Gas 37.0 Temperature Blood Gas 16.0 Respiration Rate Blood Gas Actual 16 Respiration Rate Blood Gas VENT - AC Modality FiO2 100.0 Blood Gas Tidal 500.0 Volume Blood Gas Low 5.0 PEEP Setting Blood Gas TM Notified Whom Blood Gas 11/14/2018 7:57:5 Notified Time 6 AM Test 11/14/18 11:58 Creatine Kinase 48 Creatine Kinase Pending Index Creatinine Kinase Pending MB (Mass) Troponin I Pending Medications Medication Current Medications Ergocalciferol (Drisdol) 50,000 unit Sa PO Last administered on 11/09/18at 09:28; Admin Dose 50,000 UNIT; Start 11/09/18 at 09:00 Miscellaneous Medication (Bystolic) 20 mg DAILY PO Last administered on 11/11/18at 09:03; Admin Dose 20 MG; Start 11/04/18 at 09:00; Status Hold Clonidine (Catapres) 0.1 mg Q6H PRN PO SBP>160; Start 11/04/18 at 09:00 IV Flush (NS 3 ml) 3 ml PER PROTOCOL IV ; Start 11/04/18 at 09:00 Ondansetron HCl (Zofran Inj) 4 mg Q6H PRN IV NAUSEA/VOMITING; Start 11/04/18 at 09:00 Acetaminophen (Tylenol Tab) 650 mg Q6H PRN PO .PAIN 1-3 OR TEMP; Start 11/04/18 at 09:00 Miscellaneous Information 1 ea NOTE XX ; Start 11/04/18 at 09:00 Glucose (Glutose) 15 gm Q15M PRN PO DECREASED GLUCOSE; Start 11/04/18 at 09:00 Glucose (Glutose) 22.5 gm Q15M PRN PO DECREASED GLUCOSE; Start 11/04/18 at 09:00 Dextrose (D50w Syringe) 25 ml Q15M PRN IV DECREASED GLUCOSE; Start 11/04/18 at 09:00 Dextrose (D50w Syringe) 50 ml Q15M PRN IV DECREASED GLUCOSE; Start 11/04/18 at 09:00 Glucagon (Glucagen) 1 mg Q15M PRN IM DECREASED GLUCOSE; Start 11/04/18 at 09:00 Glucose (Glutose) 15 gm Q15M PRN BUCCAL DECREASED GLUCOSE; Start 11/04/18 at 09:00 Miscellaneous Information Patients own medicat... BID@16 XX Last administered on 11/10/18at 15:28; Admin Dose 1 EA; Start 11/04/18 at 16:00 Povidone Iodine (Povidone-Iodine) 1 applic BID TOP Last administered on 11/14/18at 08:53; Admin Dose 1 APPLIC; Start 11/05/18 at 21:00 Sodium Hypochlorite (Dakins Diluted ()) 1 applic BID TP Last administered on 11/14/18at 08:52; Admin Dose 1 APPLIC; Start 11/07/18 at 09:00 Insulin Glargine (Lantus) 30 units DAILY@0800 SC Last administered on 11/14/18 08:45; Admin Dose 30 UNITS; Start 11/08/18 at 08:00 Hydralazine HCl (Apresoline) 10 mg Q4H PRN IV sbp >160 Last administered on 10/20 08:59; Admin Dose 10 MG; Start 11/08/18 at 09:00 Daptomycin 500 mg/ Sodium Chloride 100 ml @ 200 mls/hr Q24H IVPB Last administered on 11/13/18 15:49; Admin Dose 200 MLS/HR; Start 11/08/18 at 16:00 Famotidine (Pepcid) 20 mg DAILY NGT Last administered on 11/14/18 08:51; Admin Dose 20 MG; Start 11/11/18 at 09:30 Piperacillin Sod/ Tazobactam Sod 100 ml @ 200 mls/hr Q8 IVPB Last administered on 11/14/18 05:22; Admin Dose 200 MLS/HR; Start 11/11/18 at 14:00 Fentanyl 100 ml @ 2.5 mls/hr TITRATE IV Last administered on 11/14/18 00:41; Admin Dose 5 MLS/HR; Start 11/11/18 at 09:30 Midazolam HCl 50 ml @ 1 mls/hr TITRATE IV Last administered on 11/14/18 00:39; Admin Dose 5 MLS/HR; Start 11/11/18 at 10:30 Albuterol (Ventolin Hfa) 2 puff Q6H RESP THERAPY INH Last administered on 11/14/18 08:24; Admin Dose 2 PUFF; Start 11/11/18 at 20:00 Ipratropium [place] (Atrovent Hfa) 4 puff Q6H RESP THERAPY INH Last administered on 11/14/18 08:24; Admin Dose 4 PUFF; Start 11/11/18 at 20:00 Atropine Sulfate (Atropine) 0.5 mg PRN PRN IV SYMPTOMATIC BRADYCARDIA; Start 11/11/18 at 23:00 Insulin Aspart (Novolog Insulin Pen) NOVOLOG *MODERATE* ALGORI... Q4 SC Last administered on 11/14/18 08:44; Admin Dose 8 UNIT; Start 11/12/18 at 09:00 Aspirin (Aspirin) 325 mg DAILY GTB Last administered on 11/14/18 08:51; Admin Dose 325 MG; Start 11/13/18 at 09:00 Clopidogrel Bisulfate (plaVIX) 75 mg DAILY GTB Last administered on 11/14/18 08:51; Admin Dose 75 MG; Start 11/13/18 at 09:00 Atorvastatin Calcium (Lipitor) 20 mg QHS GTB Last administered on 11/13/18 20:56; Admin Dose 20 MG; Start 11/13/18 at 21:00 Gabapentin (Neurontin Liquid) 300 mg BID GTB Last administered on 11/14/18 09:04; Admin Dose 300 MG; Start 11/13/18 at 09:00 Hydralazine HCl (Apresoline) 100 mg TID GTB Last administered on 11/14/18 08:51; Admin Dose 100 MG; Start 11/13/18 at 09:00 Metoclopramide HCl (Reglan) 10 mg Q6H IV Last administered on 11/14/18 09:05; Admin Dose 10 MG; Start 11/13/18 at 10:00 Polyethylene Glycol (Miralax) 17 gm DAILY NGT Last administered on 11/14/18 08:51; Admin Dose 17 GM; Start 11/13/18 at 10:00 Senna/Docusate Sodium (Senokot-S) 1 tab BID PRN NGT constipation Last administered on 11/13/18 16:05; Admin Dose 1 TAB; Start 11/13/18 at 10:00 Bisacodyl (Dulcolax Supp) 10 mg DAILY PRN [place] CONSTIPATION; Start 11/13/18 at 10:00 Docusate Sodium (Colace Liquid Cup) 100 mg Q12H PRN GTB .CONSTIPATION Last administered on 11/13/18 10:57; Admin Dose 100 MG; Start 11/13/18 at 11:00 Methylprednisolone Sodium Succinate (Solu-Medrol) 40 mg Q8 IV Last administered on 11/14/18 05:14; Admin Dose 40 MG; Start 11/13/18 at 14:00 HERRERA MURILLO NP Nov 14, 2018 12:32
--- NOTE | 2018-11-14 16:02 | PN ---
Date/Time of Note Date/Time of Note DATE: 11/14/18 TIME: 15:55 Assessment/Plan VTE Prophylaxis Risk score (from Ns)>0 risk: 15 SCD applied (from Ns): No SCD contraindicated: other Pharmacological prophylaxis: NA/contraindicated Pharm contraindication: anticoag not tolerated Lines/Catheters IV Catheter Type (from Nrsg): Peripheral IV Central line still needed: Yes Urinary Cath still in place: Yes Reason Cath still needed: terminal illness/intractable pain Assessment/Plan Assessment/Plan 1. Acute hypoxic respiratory failure - appears to be developing ARDS on CXR. Vent management per Pulm with adjustments made to settings. PEEP increased with improvement in saturations - CT chest without contrast results noted - Pulmonology on board for vent management 2. Cardiac arrest s/p ROSC - Cardiology on board and appreciate recommendations - ECHO with preserved EF - trops trending downward 3. Bradycardia - no further episodes - holding Bystolic 4. left fifth toe gangrenous ulcer - ID on board and appreciate consultation. Will continue current antibiotics - Continue local wound care - Podiatry on board and will plan for further amputation in the near future once stable 5. Severe peripheral vascular disease - s/p left femoral endarterectomy, iliofemoral bypass and femoral to posterior tibial bypass done on November 08, 2018 - Vascular surgery consultation appreciated 6. Diabetes Mellitus - A1c noted - Basal/bolus insulin - will add novolog to be given with Solumedrol given elevation in glucose 5. Acute kidney injury - nephrology consultation appreciated and most likely due to contrast induced nephropathy as well as hemodynamic - continue monitoring and avoid nephrotoxic agents 6. Essential HTN - holding home medications at this time - BP stable 7. Peripheral neuropathy - cont. gabapentin 8. HLD - On statin 9. Chronic anemia - Stable H&H. Monitor - no need for transfusions - will restart Heparin SQ for DVT prophylaxis 10. Urinary retention - Urology on board and appreciate recommendations. continue schneider care for now 11. Disposition - Adjustments made to vent settings given findings of developing ARDS. Continue current care and monitor for improvement in overall status >35 minutes of critical care time spent with patient Result Diagram: 11/14/18 0440 11/14/18 0440 Results 24hrs Laboratory Tests Test 11/13/18 17:12 11/13/18 20:59 11/14/18 00:48 11/14/18 04:40 Bedside Glucose 182 187 247 H White Blood Count 9.3 Red Blood Count 3.56 #L Hemoglobin 10.6 #L Hematocrit 33.3 #L Mean Corpuscular 93.5 Volume Mean Corpuscular 29.8 Hemoglobin Mean Corpuscular 31.8 L Hemoglobin Concen t Red Cell 14.6 H Distribution Width Platelet Count 234 Mean Platelet 10.7 H Volume Immature 0.600 H Granulocytes % Neutrophils % 83.4 H Lymphocytes % 12.1 L Monocytes % 3.6 Eosinophils % 0.1 Basophils % 0.2 Nucleated Red 0.0 Blood Cells % Immature 0.060 H Granulocytes # Neutrophils # 7.8 H Lymphocytes # 1.1 Monocytes # 0.3 Eosinophils # 0.0 Basophils # 0.0 Nucleated Red 0.0 Blood Cells # Sodium Level 141 Potassium Level 4.6 Chloride Level 104 Carbon Dioxide 26 Level Anion Gap 11 Blood Urea 40 H Nitrogen Creatinine 1.52 H Est Glomerular Filtrat Rate mL/min Glucose Level 278 H Calcium Level 8.2 L Phosphorus Level 3.7 Magnesium Level 2.2 Test 11/14/18 04:46 11/14/18 07:00 11/14/18 08:42 11/14/18 11:58 Bedside Glucose 281 H 286 H Blood Gas Blood arterial Specimen Source Arterial Blood 11/14/2018 7:35:1 Date Drawn 8 AM Arterial Blood pH 7.360 (Temp corrected) Arterial Blood 45.0 pCO2 (Temp correct) Arterial Blood 63.1 L pO2 (Temp corrected) Arterial Blood 24.9 HCO3 Arterial Blood -0.7 Base Excess Arterial Blood 90.1 L Oxygen Saturation Jeison Test ACCEPTAB Arterial Blood Right Radial Gas Puncture Site Arterial 0.2 Blood Carboxyhemo globin Arterial Blood 0.3 Methemoglobin Blood Gas A-a O2 604.9 H Differential Oxyhemoglobin 89.6 L Percent Blood Gas 37.0 Temperature Blood Gas 16.0 Respiration Rate Blood Gas Actual 16 Respiration Rate Blood Gas VENT - AC Modality FiO2 100.0 Blood Gas Tidal 500.0 Volume Blood Gas Low 5.0 PEEP Setting Blood Gas TM Notified Whom Blood Gas 11/14/2018 7:57:5 Notified Time 6 AM Creatine Kinase 48 Creatine Kinase 0.7 Index Creatinine Kinase 0.35 MB (Mass) Troponin I 0.034 Test 11/14/18 13:12 Bedside Glucose 267 H Subjective 24 Hr Interval Summary Free Text/Dictation Patient remains intubated and sedation with increase in FIO2 requirement. Exam/Review of Systems Exam Vitals Vital Signs Date Temp Pulse Resp B/P (MAP) Pulse Ox O2 O2 Flow FiO2 Time Delivery Rate 11/14/18 72 16 96 90 14:20 11/14/18 97.5 12:05 11/14/18 142/70 Mechanical 06:45 (94) Ventilator 11/10/18 3.0 20:00 Intake and Output 11/13/18 11/13/18 11/14/18 1515:00 23:00 07:00 IntakeIntake Total 522 ml 773.0 ml 620 ml OutputOutput Total 905 ml 260 ml 295 ml BalanceBalance -383 ml 513.0 ml 325 ml Exam General: intubated and sedated. no acute distress Head: Normocephalic atraumatic Eyes: EOMI, pupils reactive to light Neck: Supple Respiratory: Coarse breath sounds bilaterally. no wheezing appreciated Cardiovascular: S1, S2, regular rate and rhythm, no obvious murmurs Gastrointestinal: soft, protuberant, non tender palpation diffusely, bowel sounds heard. Ext: +2 pitting LE edema. no cyanosis or clubbing Skin: No new skin lesions, LLE bandage clean and dry, mild warmth appreciated Results Results 24hrs Laboratory Tests Test 11/13/18 17:12 11/13/18 20:59 11/14/18 00:48 11/14/18 04:40 Bedside Glucose 182 187 247 H White Blood Count 9.3 Red Blood Count 3.56 #L Hemoglobin 10.6 #L Hematocrit 33.3 #L Mean Corpuscular 93.5 Volume Mean Corpuscular 29.8 Hemoglobin Mean Corpuscular 31.8 L Hemoglobin Concen t Red Cell 14.6 H Distribution Width Platelet Count 234 Mean Platelet 10.7 H Volume Immature 0.600 H Granulocytes % Neutrophils % 83.4 H Lymphocytes % 12.1 L Monocytes % 3.6 Eosinophils % 0.1 Basophils % 0.2 Nucleated Red 0.0 Blood Cells % Immature 0.060 H Granulocytes # Neutrophils # 7.8 H Lymphocytes # 1.1 Monocytes # 0.3 Eosinophils # 0.0 Basophils # 0.0 Nucleated Red 0.0 Blood Cells # Sodium Level 141 Potassium Level 4.6 Chloride Level 104 Carbon Dioxide 26 Level Anion Gap 11 Blood Urea 40 H Nitrogen Creatinine 1.52 H Est Glomerular Filtrat Rate mL/min Glucose Level 278 H Calcium Level 8.2 L Phosphorus Level 3.7 Magnesium Level 2.2 Test 11/14/18 04:46 11/14/18 07:00 11/14/18 08:42 11/14/18 11:58 Bedside Glucose 281 H 286 H Blood Gas Blood arterial Specimen Source Arterial Blood 11/14/2018 7:35:1 Date Drawn 8 AM Arterial Blood pH 7.360 (Temp corrected) Arterial Blood 45.0 pCO2 (Temp correct) Arterial Blood 63.1 L pO2 (Temp corrected) Arterial Blood 24.9 HCO3 Arterial Blood -0.7 Base Excess Arterial Blood 90.1 L Oxygen Saturation Jeison Test ACCEPTAB Arterial Blood Right Radial Gas Puncture Site Arterial 0.2 Blood Carboxyhemo globin Arterial Blood 0.3 Methemoglobin Blood Gas A-a O2 604.9 H Differential Oxyhemoglobin 89.6 L Percent Blood Gas 37.0 Temperature Blood Gas 16.0 Respiration Rate Blood Gas Actual 16 Respiration Rate Blood Gas VENT - AC Modality FiO2 100.0 Blood Gas Tidal 500.0 Volume Blood Gas Low 5.0 PEEP Setting Blood Gas TM Notified Whom Blood Gas 11/14/2018 7:57:5 Notified Time 6 AM Creatine Kinase 48 Creatine Kinase 0.7 Index Creatinine Kinase 0.35 MB (Mass) Troponin I 0.034 Test 11/14/18 13:12 Bedside Glucose 267 H Medications Medication Current Medications Ergocalciferol (Drisdol) 50,000 unit Sa PO Last administered on 11/09/18at 09:28; Admin Dose 50,000 UNIT; Start 11/09/18 at 09:00 Miscellaneous Medication (Bystolic) 20 mg DAILY PO Last administered on at 09:03; Admin Dose 20 MG; Start 11/04/18 at 09:00; Status Hold Clonidine (Catapres) 0.1 mg Q6H PRN PO SBP>160; Start 11/04/18 at 09:00 IV Flush (NS 3 ml) 3 ml PER PROTOCOL IV ; Start 11/04/18 at 09:00 Ondansetron HCl (Zofran Inj) 4 mg Q6H PRN IV NAUSEA/VOMITING; Start 11/04/18 at 09:00 Acetaminophen (Tylenol Tab) 650 mg Q6H PRN PO .PAIN 1-3 OR TEMP; Start 11/04/18 at 09:00 Miscellaneous Information 1 ea NOTE XX ; Start 11/04/18 at 09:00 Glucose (Glutose) 15 gm Q15M PRN PO DECREASED GLUCOSE; Start 11/04/18 at 09:00 Glucose (Glutose) 22.5 gm Q15M PRN PO DECREASED GLUCOSE; Start 11/04/18 at 09:00 Dextrose (D50w Syringe) 25 ml Q15M PRN IV DECREASED GLUCOSE; Start 11/04/18 at 09:00 Dextrose (D50w Syringe) 50 ml Q15M PRN IV DECREASED GLUCOSE; Start 11/04/18 at 09:00 Glucagon (Glucagen) 1 mg Q15M PRN IM DECREASED GLUCOSE; Start 11/04/18 at 09:00 Glucose (Glutose) 15 gm Q15M PRN BUCCAL DECREASED GLUCOSE; Start 11/04/18 at 09:00 Miscellaneous Information Patients own medicat... BID@10,16 XX Last administered on 11/10/18at 15:28; Admin Dose 1 EA; Start 11/04/18 at 16:00 Povidone Iodine (Povidone-Iodine) 1 applic BID TOP Last administered on 11/14/18 08:53; Admin Dose 1 APPLIC; Start 11/05/18 at 21:00 Sodium Hypochlorite (Dakins Diluted ()) 1 applic BID TP Last administered on 11/14/18 08:52; Admin Dose 1 APPLIC; Start 11/07/18 at 09:00 Insulin Glargine (Lantus) 30 units DAILY@0800 SC Last administered on 11/14/18at 08:45; Admin Dose 30 UNITS; Start 11/08/18 at 08:00 Hydralazine HCl (Apresoline) 10 mg Q4H PRN IV sbp >160 Last administered on 11/08/18at 08:59; Admin Dose 10 MG; Start 11/08/18 at 09:00 Daptomycin 500 mg/ Sodium Chloride 100 ml @ 200 mls/hr Q24H IVPB Last administered on 11/13/18at 15:49; Admin Dose 200 MLS/HR; Start 11/08/18 at 16:00 Famotidine (Pepcid) 20 mg DAILY NGT Last administered on 11/14/18 08:51; Admin Dose 20 MG; Start 11/11/18 at 09:30 Piperacillin Sod/ Tazobactam Sod 100 ml @ 200 mls/hr Q8 IVPB Last administered on 11/14/18 13:27; Admin Dose 200 MLS/HR; Start 11/11/18 at 14:00 Fentanyl 100 ml @ 2.5 mls/hr TITRATE IV Last administered on 11/14/18 13:35; Admin Dose 5 MLS/HR; Start 11/11/18 at 09:30 Midazolam HCl 50 ml @ 1 mls/hr TITRATE IV Last administered on 11/14/18 13:35; Admin Dose 5 MLS/HR; Start 11/11/18 at 10:30 Albuterol (Ventolin Hfa) 2 puff Q6H RESP THERAPY INH Last administered on 11/14/18 14:33; Admin Dose 2 PUFF; Start 11/11/18 at 20:00 Ipratropium [place] (Atrovent Hfa) 4 puff Q6H RESP THERAPY INH Last administered on 11/14/18 14:33; Admin Dose 4 PUFF; Start 11/11/18 at 20:00 Atropine Sulfate (Atropine) 0.5 mg PRN PRN IV SYMPTOMATIC BRADYCARDIA; Start 11/11/18 at 23:00 Insulin Aspart (Novolog Insulin Pen) NOVOLOG *MODERATE* ALGORI... Q4 SC Last administered on 11/14/18 13:15; Admin Dose 8 UNIT; Start 11/12/18 at 09:00 Aspirin (Aspirin) 325 mg DAILY GTB Last administered on 11/14/18 08:51; Admin Dose 325 MG; Start 11/13/18 at 09:00 Clopidogrel Bisulfate (plaVIX) 75 mg DAILY GTB Last administered on 11/14/18 08:51; Admin Dose 75 MG; Start 11/13/18 at 09:00 Atorvastatin Calcium (Lipitor) 20 mg QHS GTB Last administered on 11/13/18 20:56; Admin Dose 20 MG; Start 11/13/18 at 21:00 Gabapentin (Neurontin Liquid) 300 mg BID GTB Last administered on 11/14/18 09:04; Admin Dose 300 MG; Start 11/13/18 at 09:00 Hydralazine HCl (Apresoline) 100 mg TID GTB Last administered on 11/14/18 13:02; Admin Dose 100 MG; Start 11/13/18 at 09:00 Metoclopramide HCl (Reglan) 10 mg Q6H IV Last administered on 11/14/18 09:05; Admin Dose 10 MG; Start 11/13/18 at 10:00 Polyethylene Glycol (Miralax) 17 gm DAILY NGT Last administered on 11/14/18 08:51; Admin Dose 17 GM; Start 11/13/18 at 10:00 Senna/Docusate Sodium (Senokot-S) 1 tab BID PRN NGT constipation Last administered on 11/13/18 16:05; Admin Dose 1 TAB; Start 11/13/18 at 10:00 Bisacodyl (Dulcolax Supp) 10 mg DAILY PRN [place] CONSTIPATION; Start 11/13/18 at 10:00 Docusate Sodium (Colace Liquid Cup) 100 mg Q12H PRN GTB .CONSTIPATION Last administered on 11/13/18 10:57; Admin Dose 100 MG; Start 11/13/18 at 11:00 Methylprednisolone Sodium Succinate (Solu-Medrol) 40 mg Q8 IV Last administered on 11/14/18 13:19; Admin Dose 40 MG; Start 11/13/18 at 14:00 KARL WOOD MD Nov 14, 2018 16:02
[2018-11-14] MEDS ORDERED: BISACODYL 10 MG SUPP PR PRN (16:30)
[2018-11-14] MEDS: DAPTOMYCIN 500 MG in SOD CHLORIDE 0.9% 100 ML IVPB SCH (16:58)
[2018-11-14] MEDS ORDERED: LACTULOSE 30ML CUP NGT ONE (17:00)
--- NOTE | 2018-11-14 17:13 | RADRPT ---
Vent Rate: 74 bpm RR Interval: 808 msec PA Interval: 192 msec QRS Duration: 84 msec QT Interval: 417 msec QTC Interval: 464 msec P-R-T [place]: 54 - 50 - 11 degrees Sinus rhythm...normal P axis, V-rate 50- 99 Electronically Signed By: Talha Jackson
--- NOTE | 2018-11-14 17:15 | RADRPT ---
Vent Rate: 83 bpm RR Interval: 724 msec [place] Interval: 182 msec QRS Duration: 82 msec QT Interval: 366 msec QTC Interval: 430 msec P-R-T [place]: 61 - 57 - 50 degrees Sinus rhythm...normal P axis, V-rate 50- 99 Electronically Signed By: Talha Jackson
[2018-11-14] MEDS: SENNA/DOCUSATE NA (8.6MG/50MG) TAB NGT SCH (20:46)
[2018-11-14] MEDS: ATORVASTATIN 20 MG TAB GTB SCH (20:46)
[2018-11-14] MEDS: HEPARIN 5,000 UNIT/1 ML VIAL SC SCH (20:51)
[2018-11-14] MEDS ORDERED: INSULIN ASP PROT/ASPART (70/30) PEN SC SCH (22:00)
[2018-11-15] VITALS (43 sets, daily range): BP systolic 105–146; BP diastolic 51–97; PULSE 63–84; RESP 15–17
[2018-11-15] MEDS: INSULIN ASPART [NOVOLOG] 3 ML PEN SC SCH ×2 (01:12→05:00)
[2018-11-15] MEDS: ALBUTEROL HFA 8 GM INHALER INH SCH ×4 (01:47→19:31)
[2018-11-15] MEDS: IPRATROPIUM (HFA) 12.9 GM INHALER INH SCH ×4 (01:47→19:31)
[2018-11-15] MEDS: MIDAZOLAM (DRIP) 50 mg/50 mL 50 ML IV SCH ×4 (01:57→23:54)
[2018-11-15] MEDS: METOCLOPRAMIDE 10 MG INJ IV SCH ×4 (03:36→21:51)
[2018-11-15] MEDS: FENTAnyl (DRIP) 1000 mcg/100mL 100 ML IV SCH ×2 (04:54→19:46)
[2018-11-15] MEDS: PIPER-TAZO 3.375 GM IV (PMX) 100 ML IVPB SCH (06:12)
[2018-11-15] MEDS: METHYLPREDNISOLONE 40 MG INJ IV SCH ×3 (06:25→21:50)
[2018-11-15] MEDS: ACCU-CHEK XX SCH ×19 (06:30→23:52)
[2018-11-15] MEDS ORDERED: DEXTROSE 50% 50 ML SYRINGE IV PRN ×2 (06:30)
--- NOTE | 2018-11-15 07:35 | QN ---
Documentation Comment Remains intubated / sedated. AFVSS L foot warm, pink, 2+ graft pulse - respiratory failure postop left leg bypass, ? aspiration - bypass patent with good pedal perfusion - supportive care per team KLEVER FOREMAN MD Nov 15, 2018 07:35
[2018-11-15] MEDS ORDERED: METOLAZONE 5 MG TAB PO ONE (08:00)
--- NOTE | 2018-11-15 08:22 | PN ---
DATE: 11/15/2018 SUBJECTIVE: The patient is critically ill, on full ventilatory support. The patient's urinary outpu t has been adequate. No other events noted. No hemoptysis, hematemesis or hematochezia. OBJECTIVE: VITAL SIGNS: Blood pressure 139/64, pulse 68, respirations 16, temperature 98.6. HEENT: Head is normocephalic. NECK: Supple. HEART: Regular rate. LUNGS: Show diminished breath sounds at the base. ABDOMEN: Soft, nontender to palpation, no rebound or guarding. EXTREMITIES: Negative for clubbing, cyanosis. Positive edema. DERMATOLOGIC: No rashes. MUSCULOSKELETAL: No joint effusion. NEUROLOGIC: No change in exam. MEDICATIONS: The patient's medications have been reviewed. LABORATORY DATA: Reviewed. IMAGING STUDIES: Reviewed. ASSESSMENT AND PLAN: 1. Nonoliguric acute kidney injury. Etiology is secondary to hemodynamics, possible contrast-associ ated nephropathy. The patient's renal function has been fluctuating, but overall stable. Continue c urrent treatment plan, supportive care, renally dose all medications. Continue diuretic therapy, mon itor electrolytes and renal function closely. 2. Volume overload. The patient remains grossly overloaded. Chest x-ray was reviewed. We will inc rease Lasix to 40 mg IV b.i.d., add metolazone as needed to augment diuresis. 3. Anemia. Monitor hemoglobin and hematocrit levels. 4. Mineral bone disorder. Monitor calcium and phosphorus levels. 5. Ventilator-dependent respiratory failure. Vent settings and ABG was reviewed. Continue to monit or. 6. Elevated troponin, non-ST elevated myocardial infarction type 2. Continue medical management. 7. Arrhythmia. Continue current treatment plan. 8. Status post cardiac arrest. Continue to monitor. 9. Peripheral vascular disease. The patient is status post ileofemoral bypass. Continue to monitor . Follow up with vascular surgery. 10. Hypertension. Continue current blood pressure regimen. 11. Dyslipidemia. Continue statin therapy. 12. Acute encephalopathy, etiology is toxic metabolic. Dictated By: JEAN CLAUDE LARIOS DO NR/NTS Conf#: [id number] DID#: [id number] CC: JAYLEEN BUNN MD; TOMASA SCOTT; KARL WOOD MD;*EndCC*
[2018-11-15] MEDS: INSULIN HUMAN REGULAR 100 UNIT in SOD CHLORIDE 0.9% 99 ML IV SCH ×2 (09:01→21:59)
[2018-11-15] MEDS ORDERED: LIDOCAINE 1% (MPF) 5 ML VIAL SC ONE (10:30)
[2018-11-15] MEDS: GABAPENTIN (50 MG/ML PO SYG) GTB SCH ×2 (10:36→21:51)
[2018-11-15] MEDS: ASPIRIN 325 MG TAB GTB SCH (10:36)
[2018-11-15] MEDS: FUROSEMIDE 40 MG INJ IV SCH ×2 (10:36→18:36)
[2018-11-15] MEDS: CLOPIDOGREL 75 MG TAB GTB SCH (10:36)
[2018-11-15] MEDS: FAMOTIDINE 20 MG TAB NGT SCH (10:37)
[2018-11-15] MEDS: POLYETHYLENE GLYCOL 17 GM PACKET NGT SCH (10:38)
[2018-11-15] MEDS: SENNA/DOCUSATE NA (8.6MG/50MG) TAB NGT SCH ×2 (10:38→21:50)
[2018-11-15] MEDS: DAKINS 0.0125%(1/40) 473 ML SOLUTION TP SCH ×2 (10:39→21:59)
[2018-11-15] MEDS: HEPARIN 5,000 UNIT/1 ML VIAL SC SCH ×2 (10:56→21:57)
--- NOTE | 2018-11-15 11:18 | CONS ---
Consult Date/Type/Reason Admit Date/Time Nov 04, 2018 at 07:34 Initial Consult Date 11/11/18 Type of Consult Pulmonary Requesting Provider: KARL WOOD MD Date/Time of Note DATE: 11/15/18 TIME: 11:17 Subjective Patient continues mechanical ventilation FiO2 decreased to 70%. Currently PEEP of 10. Appears comfortable currently hemodynamically stable. Objective Vital Signs Date Temp Pulse Resp B/P (MAP) Pulse Ox O2 O2 Flow FiO2 Time Delivery Rate 11/15/18 68 16 139/64 100 Mechanical 07:00 (89) Ventilator 11/15/18 80 04:40 11/15/18 97.6 04:00 Intake and Output 11/14/18 11/14/18 11/15/18 1515:00 23:00 07:00 IntakeIntake Total 610 ml 565.5 ml 433.5 ml OutputOutput Total 966 ml 480 ml 330 ml BalanceBalance -356 ml 85.5 ml 103.5 ml Exam GENERAL: Well-nourished, well-developed gentleman, orally intubated on mechanical ventilation, appears comfortable at rest, no acute distress. VITAL SIGNS: NECK: Supple. No JVD or lymphadenopathy. CARDIAC: S1, S2, no added sounds or murmurs. CHEST: Diminished air entry bilaterally. ABDOMEN: Soft, nontender. No guarding or rebound. EXTREMITIES: No cyanosis, clubbing, 1+ edema. NEUROLOGIC: Generalized weakness. Vent Setting Ventilator Support Mode: AC Fraction of Inspired Oxygen pe: 80 Positive End Expiratory Pressu: 10.0 Results/Medications Result Diagram: 11/15/18 0421 11/15/18 0421 Results 24 hrs Laboratory Tests Test 11/14/18 11:58 11/14/18 13:12 11/14/18 16:58 11/14/18 20:55 Creatine Kinase 48 Creatine Kinase 0.7 Index Creatinine Kinase 0.35 MB (Mass) Troponin I 0.034 Bedside Glucose 267 H 331 H 318 H Test 11/14/18 23:25 11/15/18 01:01 11/15/18 04:21 11/15/18 04:56 Bedside Glucose 323 H 279 H 279 H White Blood Count 15.3 #H Red Blood Count 3.26 L Hemoglobin 9.7 L Hematocrit 30.8 L Mean Corpuscular 94.5 Volume Mean Corpuscular 29.8 Hemoglobin Mean Corpuscular 31.5 L Hemoglobin Concen t Red Cell 14.2 Distribution Width Platelet Count 258 Mean Platelet 11.0 H Volume Immature 0.700 H Granulocytes % Neutrophils % 88.8 H Lymphocytes % 4.4 L Monocytes % 6.0 Eosinophils % 0.0 Basophils % 0.1 Nucleated Red 0.0 Blood Cells % Immature 0.110 H Granulocytes # Neutrophils # 13.6 H Lymphocytes # 0.7 L Monocytes # 0.9 Eosinophils # 0.0 Basophils # 0.0 Nucleated Red 0.0 Blood Cells # Sodium Level 141 Potassium Level 4.3 Chloride Level 105 Carbon Dioxide 25 Level Anion Gap 11 Blood Urea 50 H Nitrogen Creatinine 1.45 H Est Glomerular Filtrat Rate mL/min Glucose Level 277 H Calcium Level 8.0 L Phosphorus Level 3.0 Magnesium Level 2.4 Test 11/15/18 05:18 11/15/18 06:11 11/15/18 08:44 11/15/18 09:34 Blood Gas Blood arterial Specimen Source Arterial Blood 11/15/2018 5:12:3 Date Drawn 3 AM Arterial Blood pH 7.363 (Temp corrected) Arterial Blood 47.6 H pCO2 (Temp correct) Arterial Blood 80.6 pO2 (Temp corrected) Arterial Blood 26.5 H HCO3 Arterial Blood 0.6 Base Excess Arterial Blood 94.6 L Oxygen Saturation Jeison Test ACCEPTAB Arterial Blood Right Radial Gas Puncture Site Arterial 0.2 Blood Carboxyhemo globin Arterial Blood 0.1 Methemoglobin Blood Gas A-a O2 439.8 H Differential Oxyhemoglobin 94.3 Percent Blood Gas 37.0 Temperature Blood Gas 16.0 Respiration Rate Blood Gas Actual 16 Respiration Rate Blood Gas VENT - AC Modality FiO2 80.0 Blood Gas Tidal 550.0 Volume Blood Gas Low 10.0 PEEP Setting Blood Gas 29.0 Inspiratory Pressure Blood Gas RH Notified Whom Blood Gas 11/15/2018 5:24:1 Notified Time 5 AM Bedside Glucose 279 H 239 H 251 H Test 11/15/18 10:33 Bedside Glucose 264 H Medications Current Medications Ergocalciferol (Drisdol) 50,000 unit Sa PO Last administered on 11/09/18at 09:28 ; Admin Dose 50,000 UNIT; Start 11/09/18 at 09:00 Miscellaneous Medication (Bystolic) 20 mg DAILY PO Last administered on 11/11/18at 09:03; Admin Dose 20 MG; Start 11/04/18 at 09:00; Status Hold Clonidine (Catapres) 0.1 mg Q6H PRN PO SBP>160; Start 11/04/18 at 09:00 IV Flush (NS 3 ml) 3 ml PER PROTOCOL IV ; Start 11/04/18 at 09:00 Ondansetron HCl (Zofran Inj) 4 mg Q6H PRN IV NAUSEA/VOMITING; Start 11/04/18 at 09:00 Acetaminophen (Tylenol Tab) 650 mg Q6H PRN PO .PAIN 1-3 OR TEMP; Start 11/04/18 at 09:00 Miscellaneous Information 1 ea NOTE XX ; Start 11/04/18 at 09:00 Glucose (Glutose) 15 gm Q15M PRN PO DECREASED GLUCOSE; Start 11/04/18 at 09:00 Glucose (Glutose) 22.5 gm Q15M PRN PO DECREASED GLUCOSE; Start 11/04/18 at 09:00 Dextrose (D50w Syringe) 25 ml Q15M PRN IV DECREASED GLUCOSE; Start 11/04/18 at 09:00 Dextrose (D50w Syringe) 50 ml Q15M PRN IV DECREASED GLUCOSE; Start 11/04/18 at 09:00 Glucagon (Glucagen) 1 mg Q15M PRN IM DECREASED GLUCOSE; Start 11/04/18 at 09:00 Glucose (Glutose) 15 gm Q15M PRN BUCCAL DECREASED GLUCOSE; Start 11/04/18 at 09:00 Miscellaneous Information Patients own medicat... BID@10,16 XX Last administered on 11/10/18at 15:28; Admin Dose 1 EA; Start 11/04/18 at 16:00 Povidone Iodine (Povidone-Iodine) 1 applic BID TOP Last administered on 11/14/18at 20:47; Admin Dose 1 APPLIC; Start 11/05/18 at 21:00 Sodium Hypochlorite (Dakins Diluted ()) 1 applic BID TP Last administered on 11/15/18at 10:39; Admin Dose 1 APPLIC; Start 11/07/18 at 09:00 Hydralazine HCl (Apresoline) 10 mg Q4H PRN IV sbp >160 Last administered on 11/08/18at 08:59; Admin Dose 10 MG; Start 11/08/18 at 09:00 Daptomycin 500 mg/ Sodium Chloride 100 ml @ 200 mls/hr Q24H IVPB Last administered on 11/14/18 16:58; Admin Dose 200 MLS/HR; Start 11/08/18 at 16:00 Famotidine (Pepcid) 20 mg DAILY NGT Last administered on 11/15/18 10:37; Admin Dose 20 MG; Start 11/11/18 at 09:30 Piperacillin Sod/ Tazobactam Sod 100 ml @ 200 mls/hr Q8 IVPB Last administered on 11/15/18 06:12; Admin Dose 200 MLS/HR; Start 11/11/18 at 14:00 Fentanyl 100 ml @ 2.5 mls/hr TITRATE IV Last administered on 11/15/18 04:54; Admin Dose 7.5 MLS/HR; Start 11/11/18 at 09:30 Midazolam HCl 50 ml @ 1 mls/hr TITRATE IV Last administered on 11/15/18 09:37; Admin Dose 7 MLS/HR; Start 11/11/18 at 10:30 Albuterol (Ventolin Hfa) 2 puff Q6H RESP THERAPY INH Last administered on 11/15/18 08:39; Admin Dose 2 PUFF; Start 11/11/18 at 20:00 Ipratropium [place] (Atrovent Hfa) 4 puff Q6H RESP THERAPY INH Last administered on 11/15/18 08:38; Admin Dose 4 PUFF; Start 11/11/18 at 20:00 Atropine Sulfate (Atropine) 0.5 mg PRN PRN IV SYMPTOMATIC BRADYCARDIA; Start 11/11/18 at 23:00 Aspirin (Aspirin) 325 mg DAILY GTB Last administered on 11/15/18 10:36; Admin Dose 325 MG; Start 11/13/18 at 09:00 Clopidogrel Bisulfate (plaVIX) 75 mg DAILY GTB Last administered on 11/15/18 10:36; Admin Dose 75 MG; Start 11/13/18 at 09:00 Atorvastatin Calcium (Lipitor) 20 mg QHS GTB Last administered on 11/14/18 20:46; Admin Dose 20 MG; Start 11/13/18 at 21:00 Gabapentin (Neurontin Liquid) 300 mg BID GTB Last administered on 11/15/18 10:36; Admin Dose 300 MG; Start 11/13/18 at 09:00 Hydralazine HCl (Apresoline) 100 mg TID GTB Last administered on 11/15/18 10:38; Admin Dose 100 MG; Start 11/13/18 at 09:00 Metoclopramide HCl (Reglan) 10 mg Q6H IV Last administered on 11/15/18 10:36; Admin Dose 10 MG; Start 11/13/18 at 10:00 Polyethylene Glycol (Miralax) 17 gm DAILY NGT Last administered on 11/15/18 10:38; Admin Dose 17 GM; Start 11/13/18 at 10:00 Heparin Sodium (Porcine) (Heparin (5000 Units/1ml)) 5,000 unit BID SC Last administered on 11/15/18 10:56; Admin Dose 5,000 UNIT; Start 11/14/18 at 21:00 Senna/Docusate Sodium (Senokot-S) 1 tab BID NGT Last administered on 11/15/18 10:38; Admin Dose 1 TAB; Start 11/14/18 at 21:00 Bisacodyl (Dulcolax Supp) 10 mg DAILY PRN SC CONSTIPATION Last administered on 11/14/18 16:43; Admin Dose 10 MG; Start 11/14/18 at 16:30 Insulin Human Regular 100 unit/ Sodium Chloride 100 ml @ 0 mls/hr PER PROTOCOL IV Last administered on 11/15/18 09:01; Admin Dose 2 MLS/HR; Start 11/15/18 at 06:30 Miscellaneous Information (* Miscellaneous Pharmacy Order) Treatment of Hypoglycemia: 1.BG 51... Per protocol XX ; Start 11/15/18 at 06:30 Dextrose (D50w Syringe) 25 ml Q15M PRN IV .DECREASED GLUCOSE; Start 11/15/18 at 06:30 Dextrose (D50w Syringe) 50 ml Q15M PRN IV .DECREASED GLUCOSE; Start 11/15/18 at 06:30 Furosemide (Lasix) 40 mg BID DIURETICS IV Last administered on 11/15/18 10:36; Admin Dose 40 MG; Start 11/15/18 at 08:00 Diagnostic Test (Pha) (Accu-Chek) 1 ea Q1H XX ; Start 11/15/18 at 08:00 Assessment/Plan Hospital Course (Demo Recall) IMPRESSION 1. Acute hypoxemic respiratory failure likely following cardiopulmonary arrest. Chest x-ray appears to be consistent with ARDS. 2. Recent new onset bradycardia.Likely secondary to b sharon. 3. History of peripheral vascular disease. 4. History of poorly controlled diabetes. 5. Anemia, no GIB 6. Leukocytosis likely secondary to steroids. PLAN: 1. Diuretics as tolerated. Ultrasound chest to evaluate for possible pleural effusions requiring thoracentesis no significant pleural effusion noted in right lung. 2. Continue mechanical ventilation. Increase PEEP and tidal volume adjusted. 3. Insulin drip for hyperglycemia decrease IV Solu-Medrol. 4. Continue fentanyl and Versed. 5. Decrease Lasix. 6. Deep vein thrombosis and gastrointestinal prophylaxis. 7. Vascular recommendations regarding postop wound care, also appreciate pod iatry recommendations. Critical care time 40 minutes. EDWIGE CARRANZA MD, [facility] Nov 15, 2018 11:18
--- NOTE | 2018-11-15 11:47 | CONS ---
Consult Date/Type/Reason Admit Date/Time Nov 04, 2018 at 07:34 Initial Consult Date 11/11/18 Type of Consultation: Urology Requesting Provider: KARL WOOD MD Date/Time of Note DATE: 11/15/18 TIME: 11:45 Subjective NO acute events - pt comfortable - BP in good range - not able to wean - HR better now. ROS: No fever, no chills, no nausea, no vomiting, no diarrhea/constipation - per nurse + SOB, retaining fluids Objective Vitals Vital Signs Date Temp Pulse Resp B/P (MAP) Pulse Ox O2 O2 Flow FiO2 Time Delivery Rate 11/15/18 68 16 139/64 100 Mechanical 07:00 (89) Ventilator 11/15/18 80 04:40 11/15/18 97.6 04:00 Intake and Output 11/14/18 11/14/18 11/15/18 1515:00 23:00 07:00 IntakeIntake Total 610 ml 565.5 ml 433.5 ml OutputOutput Total 966 ml 480 ml 330 ml BalanceBalance -356 ml 85.5 ml 103.5 ml Exam General: WN/WD/NAD, AOx 0 HEENT: Unicetric/atraumatic/EOMI (does not follow commands) - intubated NECK: JVD elevated, no thyromegaly Lymph: no lymphadenopathy HEART: regular with no S3, II/ systolic murmur at apex LUNGS: Coarse sounds + fine crackles ABD: soft, NT, ND, +BS : Intact Neuro: non focal SKIN: chronic changes EXT: trace edema Results/Medications Result Diagram: 11/15/1842011/15/18 0421 Results 24 hrs Laboratory Tests Test 11/14/18 11:58 11/14/18 13:12 11/14/18 16:58 11/14/18 20:55 Creatine Kinase 48 Creatine Kinase 0.7 Index Creatinine Kinase 0.35 MB (Mass) Troponin I 0.034 Bedside Glucose 267 H 331 H 318 H Test 11/14/18 23:25 11/15/18 01:01 11/15/18 04:21 11/15/18 04:56 Bedside Glucose 323 H 279 H 279 H White Blood Count 15.3 #H Red Blood Count 3.26 L Hemoglobin 9.7 L Hematocrit 30.8 L Mean Corpuscular 94.5 Volume Mean Corpuscular 29.8 Hemoglobin Mean Corpuscular 31.5 L Hemoglobin Concen t Red Cell 14.2 Distribution Width Platelet Count 258 Mean Platelet 11.0 H Volume Immature 0.700 H Granulocytes % Neutrophils % 88.8 H Lymphocytes % 4.4 L Monocytes % 6.0 Eosinophils % 0.0 Basophils % 0.1 Nucleated Red 0.0 Blood Cells % Immature 0.110 H Granulocytes # Neutrophils # 13.6 H Lymphocytes # 0.7 L Monocytes # 0.9 Eosinophils # 0.0 Basophils # 0.0 Nucleated Red 0.0 Blood Cells # Sodium Level 141 Potassium Level 4.3 Chloride Level 105 Carbon Dioxide 25 Level Anion Gap 11 Blood Urea 50 H Nitrogen Creatinine 1.45 H Est Glomerular Filtrat Rate mL/min Glucose Level 277 H Calcium Level 8.0 L Phosphorus Level 3.0 Magnesium Level 2.4 Test 11/15/18 05:18 11/15/18 06:11 11/15/18 08:44 11/15/18 09:34 Blood Gas Blood arterial Specimen Source Arterial Blood 11/15/2018 5:12:3 Date Drawn 3 AM Arterial Blood pH 7.363 (Temp corrected) Arterial Blood 47.6 H pCO2 (Temp correct) Arterial Blood 80.6 pO2 (Temp corrected) Arterial Blood 26.5 H HCO3 Arterial Blood 0.6 Base Excess Arterial Blood 94.6 L Oxygen Saturation Jeison Test ACCEPTAB Arterial Blood Right Radial Gas Puncture Site Arterial 0.2 Blood Carboxyhemo globin Arterial Blood 0.1 Methemoglobin Blood Gas A-a O2 439.8 H Differential Oxyhemoglobin 94.3 Percent Blood Gas 37.0 Temperature Blood Gas 16.0 Respiration Rate Blood Gas Actual 16 Respiration Rate Blood Gas VENT - AC Modality FiO2 80.0 Blood Gas Tidal 550.0 Volume Blood Gas Low 10.0 PEEP Setting Blood Gas 29.0 Inspiratory Pressure Blood Gas RH Notified Whom Blood Gas 11/15/2018 5:24:1 Notified Time 5 AM Bedside Glucose 279 H 239 H 251 H Test 11/15/18 10:33 11/15/18 11:34 Bedside Glucose 264 H 233 H Home Meds Active Scripts Silver Sulfadiazine* (Silvadene*) 1% - 20 Gm Cream.gm., 1 APPLIC TOP DAILY, #1 TUB Prov:JESSIE WONG MD 06/12/18 Amoxicillin-Clavulanate K* (Augmentin*) 875 Mg Tab, 875 MG PO BID, #28 TAB Prov:AMANDA GOMEZ MD 06/08/14 Reported Medications Insulin Aspart (Novolog Mix (70/30)) 100 Units/Ml Soln, 28 SC with diinner, VIAL 11/04/18 Insulin Aspart (Novolog Mix (70/30)) 100 Units/Ml Soln, 38 SC WITH BREAKFAST, VIAL 11/04/18 Benazepril Hcl* (Benazepril Hcl*) 40 Mg Tablet, 40 MG PO DAILY, #30 TAB 11/04/18 Ergocalciferol (Vitamin D2) (VITAMIN D2) 50,000 Unit Capsule, 52055 UNIT PO weekly for saturdays, CAP 11/04/18 Omeprazole* (Omeprazole*) 20 Mg Capsule.dr, 20 MG PO DAILY, #30 CAP 11/04/18 Aspirin* (Aspirin* EC) 81 Mg Tablet.dr, 81 MG PO DAILY, TAB 11/04/18 Gabapentin* (Gabapentin*) 300 Mg Capsule, 300 MG PO BID, #60 CAP 11/04/18 Nebivolol Hcl* (Bystolic*) 20 Mg Tablet, 20 MG PO DAILY, #30 TAB 11/04/18 Atorvastatin Calcium* (Atorvastatin Calcium*) 20 Mg Tablet, 20 MG PO QHS, #30 TAB 11/04/18 Sulfasalazine (Azulfidine) 500 Mg Tab, 1000 MG PO TID, TAB 06/02/14 Medications Current Medications Ergocalciferol (Drisdol) 50,000 unit Sa PO Last administered on 11/09/18at 09:28; Admin Dose 50,000 UNIT; Start 11/09/18 at 09:00 Miscellaneous Medication (Bystolic) 20 mg DAILY PO Last administered on 11/11/18at 09:03; Admin Dose 20 MG; Start 11/04/18 at 09:00; Status Hold Clonidine (Catapres) 0.1 mg Q6H PRN PO SBP>160; Start 11/04/18 at 09:00 IV Flush (NS 3 ml) 3 ml PER PROTOCOL IV ; Start 11/04/18 at 09:00 Ondansetron HCl (Zofran Inj) 4 mg Q6H PRN IV NAUSEA/VOMITING; Start 11/04/18 at 09:00 Acetaminophen (Tylenol Tab) 650 mg Q6H PRN PO .PAIN 1-3 OR TEMP; Start 11/04/18 at 09:00 Miscellaneous Information 1 ea NOTE XX ; Start 11/04/18 at 09:00 Glucose (Glutose) 15 gm Q15M PRN PO DECREASED GLUCOSE; Start 11/04/18 at 09:00 Glucose (Glutose) 22.5 gm Q15M PRN PO DECREASED GLUCOSE; Start 11/04/18 at 09:00 Dextrose (D50w Syringe) 25 ml Q15M PRN IV DECREASED GLUCOSE; Start 11/04/18 at 09:00 Dextrose (D50w Syringe) 50 ml Q15M PRN IV DECREASED GLUCOSE; Start 11/04/18 at 09:00 Glucagon (Glucagen) 1 mg Q15M PRN IM DECREASED GLUCOSE; Start 11/04/18 at 09:00 Glucose (Glutose) 15 gm Q15M PRN BUCCAL DECREASED GLUCOSE; Start 11/04/18 at 09:00 Miscellaneous Information Patients own medicat... BID@10,16 XX Last administered on 11/10/18at 15:28; Admin Dose 1 EA; Start 11/04/18 at 16:00 Povidone Iodine (Povidone-Iodine) 1 applic BID TOP Last administered on 11/14/18at 20:47; Admin Dose 1 APPLIC; Start 11/05/18 at 21:00 Sodium Hypochlorite (Dakins Diluted ()) 1 applic BID TP Last administered on 11/15/18at 10:39; Admin Dose 1 APPLIC; Start 11/07/18 at 09:00 Hydralazine HCl (Apresoline) 10 mg Q4H PRN IV sbp >160 Last administered on 11/08/18at 08:59; Admin Dose 10 MG; Start 11/08/18 at 09:00 Daptomycin 500 mg/ Sodium Chloride 100 ml @ 200 mls/hr Q24H IVPB Last admini stered on 11/14/18at 16:58; Admin Dose 200 MLS/HR; Start 11/08/18 at 16:00 Famotidine (Pepcid) 20 mg DAILY NGT Last administered on 11/15/18at 10:37; Admin Dose 20 MG; Start 11/11/18 at 09:30 Piperacillin Sod/ Tazobactam Sod 100 ml @ 200 mls/hr Q8 IVPB Last administered on 11/15/18 06:12; Admin Dose 200 MLS/HR; Start 11/11/18 at 14:00 Fentanyl 100 ml @ 2.5 mls/hr TITRATE IV Last administered on 11/15/18 04:54; Admin Dose 7.5 MLS/HR; Start 11/11/18 at 09:30 Midazolam HCl 50 ml @ 1 mls/hr TITRATE IV Last administered on 11/15/18 09:37; Admin Dose 7 MLS/HR; Start 11/11/18 at 10:30 Albuterol (Ventolin Hfa) 2 puff Q6H RESP THERAPY INH Last administered on 11/15/18 08:39; Admin Dose 2 PUFF; Start 11/11/18 at 20:00 Ipratropium [place] (Atrovent Hfa) 4 puff Q6H RESP THERAPY INH Last ad ministered on 11/15/18 08:38; Admin Dose 4 PUFF; Start 11/11/18 at 20:00 Atropine Sulfate (Atropine) 0.5 mg PRN PRN IV SYMPTOMATIC BRADYCARDIA; Start 11/11/18 at 23:00 Aspirin (Aspirin) 325 mg DAILY GTB Last administered on 11/15/18 10:36; Admin Dose 325 MG; Start 11/13/18 at 09:00 Clopidogrel Bisulfate (plaVIX) 75 mg DAILY GTB Last administered on 11/15/18 10:36; Admin Dose 75 MG; Start 11/13/18 at 09:00 Atorvastatin Calcium (Lipitor) 20 mg QHS GTB Last administered on 11/14/18 20:46; Admin Dose 20 MG; Start 11/13/18 at 21:00 Gabapentin (Neurontin Liquid) 300 mg BID GTB Last administered on 11/15/18 10:36; Admin Dose 300 MG; Start 11/13/18 at 09:00 Hydralazine HCl (Apresoline) 100 mg TID GTB Last administered on 11/15/18 10:38; Admin Dose 100 MG; Start 11/13/18 at 09:00 Metoclopramide HCl (Reglan) 10 mg Q6H IV Last administered on 11/15/18 10:36; Admin Dose 10 MG; Start 11/13/18 at 10:00 Polyethylene Glycol (Miralax) 17 gm DAILY NGT Last administered on 11/15/18 10:38; Admin Dose 17 GM; Start 11/13/18 at 10:00 Heparin Sodium (Porcine) (Heparin (5000 Units/1ml)) 5,000 unit BID SC Last administered on 11/15/18 10:56; Admin Dose 5,000 UNIT; Start 11/14/18 at 21:00 Senna/Docusate Sodium (Senokot-S) 1 tab BID NGT Last administered on 11/15/18 10:38; Admin Dose 1 TAB; Start 11/14/18 at 21:00 Bisacodyl (Dulcolax Supp) 10 mg DAILY PRN [place] CONSTIPATION Last administered on 11/14/18 16:43; Admin Dose 10 MG; Start 11/14/18 at 16:30 Insulin Human Regular 100 unit/ Sodium Chloride 100 ml @ 0 mls/hr PER PROTOCOL IV Last administered on 11/15/18at 09:01; Admin Dose 2 MLS/HR; Start 11/15/18 at 06:30 Miscellaneous Information (* Miscellaneous Pharmacy Order) Treatment of Hypoglycemia: 1.BG 51... Per protocol XX ; Start 11/15/18 at 06:30 Dextrose (D50w Syringe) 25 ml Q15M PRN IV .DECREASED GLUCOSE; Start 11/15/18 at 06:30 Dextrose (D50w Syringe) 50 ml Q15M PRN IV .DECREASED GLUCOSE; Start 11/15/18 at 06:30 Furosemide (Lasix) 40 mg BID DIURETICS IV Last administered on 11/15/18at 10:36; Admin Dose 40 MG; Start 11/15/18 at 08:00 Diagnostic Test (Pha) (Accu-Chek) 1 ea Q1H XX ; Start 11/15/18 at 08:00 Methylprednisolone Sodium Succinate (Solu-Medrol) 40 mg Q12 IV ; Start 11/15/18 at 11:30 Assessment/Plan Hospital Course (Demo Recall) 1. Preoperative evaluation prior to possible need for peripheral revascularization surgery.-neg trop x 3 and NL EF by echo with no sig valve abnl - s/p decomp[ensation and CODE Blue - pt was rossana last night, now in sinus - con't supportive Rx. Con't med rx. 2. Peripheral arterial disease with nonhealing gangrenous changes in left toe ulceration - post op now. 3. Hypertension, under reasonable control on current medications. NOw stable. 4. Dyslipidemia. 5. Diabetes mellitus. 6. s/p cardiopulmonary arrest - mild be inmild ARDS now - con;t resp Rx. 7. Bradycardic intermittenjt by tele - now back to sinus - will monitor - julián gtt if sustained rossana. 8. Positive troponin after arrest-? secondary to or primary to arrest - no intervention planned now. 9. Anemia - H/H stable - no bleeding now, RAJI BROWNE MD Nov 15, 2018 11:47
--- NOTE | 2018-11-15 14:16 | CONS ---
Assessment/Plan Assessment/Plan Hospital Course (Demo Recall) No acute events patient remains intubated and sedated no fevers overnight. Wound culture growing Klebsiella pneumonia and Stenotrophomonas maltophilia chest x- ray revealed stable pulmonary edema Antimicrobials: Zosyn, daptomycin Indwelling: Endotracheal tube, NG tube, Vora Physical examination: Well-developed elderly man who is in no distress head atraumatic normocephalic neck is supple chest rise symmetrical breath sounds diminished bases heart S1-S2 abdomen soft bowel sounds present extremities with left foot dressing intact Assessment: 1. Status post cardiac arrest 2. Non-ST elevation [place] 3. Acute respiratory failure, possibly aspirated now with radiographic findings of ARDS 4. Left foot gangrene 5. Peripheral arterial disease status post left femoral to posterior tibial bypass 11/08/18 6. Diabetes 7. History of left foot second toe amputation 8. Acute kidney insufficiency Plan: Change antibiotics to meropenem and levofloxacin, continue present care, vent management per pulmonary, f/u podiatry recommendations Consultation Date/Type/Reason Admit Date/Time Nov 04, 2018 at 07:34 Initial Consult Date Type of Consult id Requesting Provider: KARL WOOD MD Date/Time of Note DATE: 11/15/18 TIME: 14:15 Exam/Review of Systems Exam Vitals Vital Signs Date Temp Pulse Resp B/P (MAP) Pulse Ox O2 O2 Flow FiO2 Time Delivery Rate 11/15/18 70 08:00 11/15/18 16 139/64 100 Mechanical 07:00 (89) Ventilator 11/15/18 80 04:40 11/15/18 97.6 04:00 Intake and Output 11/14/18 11/14/18 11/15/18 1515:00 23:00 07:00 IntakeIntake Total 610 ml 565.5 ml 433.5 ml OutputOutput Total 966 ml 480 ml 330 ml BalanceBalance -356 ml 85.5 ml 103.5 ml Results Result Diagram: 11/15/18 0421 11/15/18 0421 Results 24hrs Laboratory Tests Test 11/14/18 16:58 11/14/18 20:55 11/14/18 23:25 11/15/18 01:01 Bedside Glucose 331 H 318 H 323 H 279 H Test 11/15/18 04:21 11/15/18 04:56 11/15/18 05:18 11/15/18 06:11 White Blood Count 15.3 #H Red Blood Count 3.26 L Hemoglobin 9.7 L Hematocrit 30.8 L Mean Corpuscular 94.5 Volume Mean Corpuscular 29.8 Hemoglobin Mean Corpuscular 31.5 L Hemoglobin Concen t Red Cell 14.2 Distribution Width Platelet Count 258 Mean Platelet 11.0 H Volume Immature 0.700 H Granulocytes % Neutrophils % 88.8 H Lymphocytes % 4.4 L Monocytes % 6.0 Eosinophils % 0.0 Basophils % 0.1 Nucleated Red 0.0 Blood Cells % Immature 0.110 H Granulocytes # Neutrophils # 13.6 H Lymphocytes # 0.7 L Monocytes # 0.9 Eosinophils # 0.0 Basophils # 0.0 Nucleated Red 0.0 Blood Cells # Sodium Level 141 Potassium Level 4.3 Chloride Level 105 Carbon Dioxide 25 Level Anion Gap 11 Blood Urea 50 H Nitrogen Creatinine 1.45 H Est Glomerular Filtrat Rate mL/min Glucose Level 277 H Calcium Level 8.0 L Phosphorus Level 3.0 Magnesium Level 2.4 Bedside Glucose 279 H 279 H Blood Gas Blood arterial Specimen Source Arterial Blood 11/15/2018 5:12:3 Date Drawn 3 AM Arterial Blood pH 7.363 (Temp corrected) Arterial Blood 47.6 H pCO2 (Temp correct) Arterial Blood 80.6 pO2 (Temp corrected) Arterial Blood 26.5 H HCO3 Arterial Blood 0.6 Base Excess Arterial Blood 94.6 L Oxygen Saturation Jeison Test ACCEPTAB Arterial Blood Right Radial Gas Puncture Site Arterial 0.2 Blood Carboxyhemo globin Arterial Blood 0.1 Methemoglobin Blood Gas A-a O2 439.8 H Differential Oxyhemoglobin 94.3 Percent Blood Gas 37.0 Temperature Blood Gas 16.0 Respiration Rate Blood Gas Actual 16 Respiration Rate Blood Gas VENT - AC Modality FiO2 80.0 Blood Gas Tidal 550.0 Volume Blood Gas Low 10.0 PEEP Setting Blood Gas 29.0 Inspiratory Pressure Blood Gas RH Notified Whom Blood Gas 11/15/2018 5:24:1 Notified Time 5 AM Test 11/15/18 08:44 11/15/18 09:34 11/15/18 10:33 11/15/18 11:34 Bedside Glucose 239 H 251 H 264 H 233 H Test 11/15/18 12:39 11/15/18 14:02 Bedside Glucose 212 133 Medications Medication Current Medications Ergocalciferol (Drisdol) 50,000 unit Sa PO Last administered on 11/09/18at 09:28; Admin Dose 50,000 UNIT; Start 11/09/18 at 09:00 Miscellaneous Medication (Bystolic) 20 mg DAILY PO Last administered on 11/11/18at 09:03; Admin Dose 20 MG; Start 11/04/18 at 09:00; Status Hold Clonidine (Catapres) 0.1 mg Q6H PRN PO SBP>160; Start 11/04/18 at 09:00 IV Flush (NS 3 ml) 3 ml PER PROTOCOL IV ; Start 11/04/18 at 09:00 Ondansetron HCl (Zofran Inj) 4 mg Q6H PRN IV NAUSEA/VOMITING; Start 11/04/18 at 09:00 Acetaminophen (Tylenol Tab) 650 mg Q6H PRN PO .PAIN 1-3 OR TEMP; Start 11/04/18 at 09:00 Miscellaneous Information 1 ea NOTE XX ; Start 11/04/18 at 09:00 Glucose (Glutose) 15 gm Q15M PRN PO DECREASED GLUCOSE; Start 11/04/18 at 09:00 Glucose (Glutose) 22.5 gm Q15M PRN PO DECREASED GLUCOSE; Start 11/04/18 at 09:00 Dextrose (D50w Syringe) 25 ml Q15M PRN IV DECREASED GLUCOSE; Start 11/04/18 at 09:00 Dextrose (D50w Syringe) 50 ml Q15M PRN IV DECREASED GLUCOSE; Start 11/04/18 at 09:00 Glucagon (Glucagen) 1 mg Q15M PRN IM DECREASED GLUCOSE; Start 11/04/18 at 09:00 Glucose (Glutose) 15 gm Q15M PRN BUCCAL DECREASED GLUCOSE; Start 11/04/18 at 09:00 Miscellaneous Information Patients own medicat... BID@10,16 XX Last administered on 11/10/18at 15:28; Admin Dose 1 EA; Start 11/04/18 at 16:00 Povidone Iodine (Povidone-Iodine) 1 applic BID TOP Last administered on 11/14/18at 20:47; Admin Dose 1 APPLIC; Start 11/05/18 at 21:00 Sodium Hypochlorite (Dakins Diluted ()) 1 applic BID TP Last administered on 6/28/19at 10:39; Admin Dose 1 APPLIC; Start 11/07/18 at 09:00 Hydralazine HCl (Apresoline) 10 mg Q4H PRN IV sbp >160 Last administered on 11/08/18 08:59; Admin Dose 10 MG; Start 11/08/18 at 09:00 Daptomycin 500 mg/ Sodium Chloride 100 ml @ 200 mls/hr Q24H IVPB Last administered on 11/14/18 16:58; Admin Dose 200 MLS/HR; Start 11/08/18 at 16:00 Famotidine (Pepcid) 20 mg DAILY NGT Last administered on 11/15/18 10:37; Admin Dose 20 MG; Start 11/11/18 at 09:30 Piperacillin Sod/ Tazobactam Sod 100 ml @ 200 mls/hr Q8 IVPB Last administered on 11/15/18 06:12; Admin Dose 200 MLS/HR; Start 11/11/18 at 14:00 Fentanyl 100 ml @ 2.5 mls/hr TITRATE IV Last administered on 11/15/18 04:54; Admin Dose 7.5 MLS/HR; Start 11/11/18 at 09:30 Midazolam HCl 50 ml @ 1 mls/hr TITRATE IV Last administered on 11/15/18 09:37; Admin Dose 7 MLS/HR; Start 11/11/18 at 10:30 Albuterol (Ventolin Hfa) 2 puff Q6H RESP THERAPY INH Last administered on 11/15 08:39; Admin Dose 2 PUFF; Start 11/11/18 at 20:00 Ipratropium [place] (Atrovent Hfa) 4 puff Q6H RESP THERAPY INH Last administered on 11/15/18 08:38; Admin Dose 4 PUFF; Start 11/11/18 at 20:00 Atropine Sulfate (Atropine) 0.5 mg PRN PRN IV SYMPTOMATIC BRADYCARDIA; Start 11/11/18 at 23:00 Aspirin (Aspirin) 325 mg DAILY GTB Last administered on 11/15/18 10:36; Admin Dose 325 MG; Start 11/13/18 at 09:00 Clopidogrel Bisulfate (plaVIX) 75 mg DAILY GTB Last administered on 11/15/18 10:36; Admin Dose 75 MG; Start 11/13/18 at 09:00 Atorvastatin Calcium (Lipitor) 20 mg QHS GTB Last administered on 11/14/18 20:46; Admin Dose 20 MG; Start 11/13/18 at 21:00 Gabapentin (Neurontin Liquid) 300 mg BID GTB Last administered on 11/15/18 10:36; Admin Dose 300 MG; Start 11/13/18 at 09:00 Hydralazine HCl (Apresoline) 100 mg TID GTB Last administered on 11/15/18 10:38; Admin Dose 100 MG; Start 11/13/18 at 09:00 Metoclopramide HCl (Reglan) 10 mg Q6H IV Last administered on 11/15/18 10:36; Admin Dose 10 MG; Start 11/13/18 at 10:00 Polyethylene Glycol (Miralax) 17 gm DAILY NGT Last administered on 11/15/18 10:38; Admin Dose 17 GM; Start 11/13/18 at 10:00 Heparin Sodium (Porcine) (Heparin (5000 Units/1ml)) 5,000 unit BID SC Last administered on 11/15/18 10:56; Admin Dose 5,000 UNIT; Start 11/14/18 at 21:00 Senna/Docusate Sodium (Senokot-S) 1 tab BID NGT Last administered on 11/15/18 10:38; Admin Dose 1 TAB; Start 11/14/18 at 21:00 Bisacodyl (Dulcolax Supp) 10 mg DAILY PRN [place] CONSTIPATION Last administered on 11/14/18 16:43; Admin Dose 10 MG; Start 11/14/18 at 16:30 Insulin Human Regular 100 unit/ Sodium Chloride 100 ml @ 0 mls/hr PER PROTOCOL IV Last administered on 11/15/18 09:01; Admin Dose 2 MLS/HR; Start 11/15/18 at 06:30 Miscellaneous Information (* Miscellaneous Pharmacy Order) Treatment of Hypoglycemia: 1.BG 51... Per protocol XX ; Start 11/15/18 at 06:30 Dextrose (D50w Syringe) 25 ml Q15M PRN IV .DECREASED GLUCOSE; Start 11/15/18 at 06:30 Dextrose (D50w Syringe) 50 ml Q15M PRN IV .DECREASED GLUCOSE; Start 11/15/18 at 06:30 Furosemide (Lasix) 40 mg BID DIURETICS IV Last administered on 11/15/18at 10:36; Admin Dose 40 MG; Start 11/15/18 at 08:00 Diagnostic Test (Pha) (Accu-Chek) 1 ea Q1H XX ; Start 11/15/18 at 08:00 Methylprednisolone Sodium Succinate (Solu-Medrol) 40 mg Q12 IV ; Start 11/15/18 at 11:30 HERRERA MURILLO NP Nov 15, 2018 14:16
[2018-11-15] MEDS: POVIDONE IODINE 10% 28.4 GM OINT TOP SCH ×2 (15:56→21:59)
[2018-11-15] MEDS: MEROPENEM 500MG/50 ML (PMX) 50 ML IVPB SCH ×2 (15:56→23:04)
--- NOTE | 2018-11-15 16:14 | PN ---
Date/Time of Note Date/Time of Note DATE: 11/15/18 TIME: 16:06 Assessment/Plan VTE Prophylaxis Risk score (from [facility] [place]0 risk: 13 SCD applied (from [facility] [place]): No SCD contraindicated: other Pharmacological prophylaxis: NA/contraindicated Pharm contraindication: anticoag not tolerated Lines/Catheters [facility] PICC Line Central line still needed: Yes Urinary Cath still in place: Yes Reason Cath still needed: urinary retention Assessment/Plan Assessment/Plan 1. Acute hypoxic respiratory failure - weaning down FIO2 as able. Peep increased with improvement of oxygenation - CT chest without contrast results noted - Pulmonology on board for vent management and will continue adjusting given findings of ARDS 2. Cardiac arrest s/p ROSC - Cardiology on board and appreciate recommendations - ECHO with preserved EF - trops trending downward 3. Bradycardia - no further episodes - holding Bystolic 4. left fifth toe gangrenous ulcer - ID on board and appreciate consultation. Will continue current antibiotics - Continue local wound care - Podiatry on board and will plan for further amputation in the near future once stable 5. Severe peripheral vascular disease - s/p left femoral endarterectomy, iliofemoral bypass and femoral to posterior tibial bypass done on November 08, 2018 - Vascular surgery consultation appreciated 6. Diabetes Mellitus - A1c noted - insulin drip started given elevated sugars in setting of Solumedrol 5. Acute kidney injury - nephrology consultation appreciated and most likely due to contrast induced nephropathy as well as cardiorenal - continue monitoring and avoid nephrotoxic agents 6. Essential HTN - holding home medications at this time - BP stable 7. Peripheral neuropathy - cont. gabapentin 8. HLD - On statin 9. Chronic anemia - Stable H&H. Monitor - no need for transfusions 10. Urinary retention - Urology on board and appreciate recommendations. continue schneider care for now 11. Disposition - Continue weaning down FIO2 as tolerated. Continue ICU care for vent management >35 minutes of critical care time spent with patient Result Diagram: 11/15/1842011/15/18420 Results 24hrs Laboratory Tests Test 11/14/18 16:58 11/14/18 20:55 11/14/18 23:25 11/15/18 01:01 Bedside Glucose 331 H 318 H 323 H 279 H Test 11/15/18 04:21 11/15/18 04:56 6/28/19 05:18 11/15/18 06:11 White Blood Count 15.3 #H Red Blood Count 3.26 L Hemoglobin 9.7 L Hematocrit 30.8 L Mean Corpuscular 94.5 Volume Mean Corpuscular 29.8 Hemoglobin Mean Corpuscular 31.5 L Hemoglobin Concen t Red Cell 14.2 Distribution Width Platelet Count 258 Mean Platelet 11.0 H Volume Immature 0.700 H Granulocytes % Neutrophils % 88.8 H Lymphocytes % 4.4 L Monocytes % 6.0 Eosinophils % 0.0 Basophils % 0.1 Nucleated Red 0.0 Blood Cells % Immature 0.110 H Granulocytes # Neutrophils # 13.6 H Lymphocytes # 0.7 L Monocytes # 0.9 Eosinophils # 0.0 Basophils # 0.0 Nucleated Red 0.0 Blood Cells # Sodium Level 141 Potassium Level 4.3 Chloride Level 105 Carbon Dioxide 25 Level Anion Gap 11 Blood Urea 50 H Nitrogen Creatinine 1.45 H Est Glomerular Filtrat Rate mL/min Glucose Level 277 H Calcium Level 8.0 L Phosphorus Level 3.0 Magnesium Level 2.4 Bedside Glucose 279 H 279 H Blood Gas Blood arterial Specimen Source Arterial Blood 11/15/2018 5:12:3 Date Drawn 3 AM Arterial Blood pH 7.363 (Temp corrected) Arterial Blood 47.6 H pCO2 (Temp correct) Arterial Blood 80.6 pO2 (Temp corrected) Arterial Blood 26.5 H HCO3 Arterial Blood 0.6 Base Excess Arterial Blood 94.6 L Oxygen Saturation Jeison Test ACCEPTAB Arterial Blood Right Radial Gas Puncture Site Arterial 0.2 Blood Carboxyhemo globin Arterial Blood 0.1 Methemoglobin Blood Gas A-a O2 439.8 H Differential Oxyhemoglobin 94.3 Percent Blood Gas 37.0 Temperature Blood Gas 16.0 Respiration Rate Blood Gas Actual 16 Respiration Rate Blood Gas VENT - AC Modality FiO2 80.0 Blood Gas Tidal 550.0 Volume Blood Gas Low 10.0 PEEP Setting Blood Gas 29.0 Inspiratory Pressure Blood Gas RH Notified Whom Blood Gas 11/15/2018 5:24:1 Notified Time 5 AM Test 11/15/18 08:44 11/15/18 09:34 11/15/18 10:33 11/15/18 11:34 Bedside Glucose 239 H 251 H 264 H 233 H Test 11/15/18 12:39 11/15/18 14:02 11/15/18 15:19 Bedside Glucose 212 133 107 Subjective 24 Hr Interval Summary Free Text/Dictation Patient remains stable and was started on insulin drip given elevated glucose. No acute overnight events. Exam/Review of Systems Exam Vitals Vital Signs Date Temp Pulse Resp B/P (MAP) Pulse Ox O2 O2 Flow FiO2 Time Delivery Rate 11/15/18 70 08:00 11/15/18 16 139/64 100 Mechanical 07:00 (89) Ventilator 11/15/18 80 04:40 11/15/18 97.6 04:00 Intake and Output 11/14/18 11/14/18 11/15/18 1515:00 23:00 07:00 IntakeIntake Total 610 ml 565.5 ml 533.5 ml OutputOutput Total 966 ml 480 ml 330 ml BalanceBalance -356 ml 85.5 ml 203.5 ml Exam General: intubated and sedated. no acute distress Eyes: EOMI, pupils reactive to light Neck: Supple Respiratory: Coarse breath sounds bilaterally. no wheezing appreciated Cardiovascular: S1, S2, regular rate and rhythm, no obvious murmurs Gastrointestinal: soft, protuberant, nontender, bowel sounds heard. Ext: +1 pitting LE edema. no cyanosis or clubbing Skin: No new skin lesions, LLE bandage clean and dry, mild warmth appreciated Results Results 24hrs Laboratory Tests Test 11/14/18 16:58 11/14/18 20:55 11/14/18 23:25 11/15/18 01:01 Bedside Glucose 331 H 318 H 323 H 279 H Test 11/15/18 04:21 11/15/18 04:56 11/15/18 05:18 11/15/18 06:11 White Blood Count 15.3 #H Red Blood Count 3.26 L Hemoglobin 9.7 L Hematocrit 30.8 L Mean Corpuscular 94.5 Volume Mean Corpuscular 29.8 Hemoglobin Mean Corpuscular 31.5 L Hemoglobin Concen t Red Cell 14.2 Distribution Width Platelet Count 258 Mean Platelet 11.0 H Volume Immature 0.700 H Granulocytes % Neutrophils % 88.8 H Lymphocytes % 4.4 L Monocytes % 6.0 Eosinophils % 0.0 Basophils % 0.1 Nucleated Red 0.0 Blood Cells % Immature 0.110 H Granulocytes # Neutrophils # 13.6 H Lymphocytes # 0.7 L Monocytes # 0.9 Eosinophils # 0.0 Basophils # 0.0 Nucleated Red 0.0 Blood Cells # Sodium Level 141 Potassium Level 4.3 Chloride Level 105 Carbon Dioxide 25 Level Anion Gap 11 Blood Urea 50 H Nitrogen Creatinine 1.45 H Est Glomerular Filtrat Rate mL/min Glucose Level 277 H Calcium Level 8.0 L Phosphorus Level 3.0 Magnesium Level 2.4 Bedside Glucose 279 H 279 H Blood Gas Blood arterial Specimen Source Arterial Blood 11/15/2018 5:12:3 Date Drawn 3 AM Arterial Blood pH 7.363 (Temp corrected) Arterial Blood 47.6 H pCO2 (Temp correct) Arterial Blood 80.6 pO2 (Temp corrected) Arterial Blood 26.5 H HCO3 Arterial Blood 0.6 Base Excess Arterial Blood 94.6 L Oxygen Saturation Jeison Test ACCEPTAB Arterial Blood Right Radial Gas Puncture Site Arterial 0.2 Blood Carboxyhemo globin Arterial Blood 0.1 Methemoglobin Blood Gas A-a O2 439.8 H Differential Oxyhemoglobin 94.3 Percent Blood Gas 37.0 Temperature Blood Gas 16.0 Respiration Rate Blood Gas Actual 16 Respiration Rate Blood Gas VENT - AC Modality FiO2 80.0 Blood Gas Tidal 550.0 Volume Blood Gas Low 10.0 PEEP Setting Blood Gas 29.0 Inspiratory Pressure Blood Gas RH Notified Whom Blood Gas 11/15/2018 5:24:1 Notified Time 5 AM Test 11/15/18 08:44 11/15/18 09:34 11/15/18 10:33 11/15/18 11:34 Bedside Glucose 239 H 251 H 264 H 233 H Test 11/15/18 12:39 11/15/18 14:02 11/15/18 15:19 Bedside Glucose 212 133 107 Medications Medication Current Medications Ergocalciferol (Drisdol) 50,000 unit Sa PO Last administered on 11/09/18at 09:28; Admin Dose 50,000 UNIT; Start 11/09/18 at 09:00 Miscellaneous Medication (Bystolic) 20 mg DAILY PO Last administered on 11/11/18at 09:03; Admin Dose 20 MG; Start 11/04/18 at 09:00; Status Hold Clonidine (Catapres) 0.1 mg Q6H PRN PO SBP>160; Start 11/04/18 at 09:00 IV Flush (NS 3 ml) 3 ml PER PROTOCOL IV ; Start 11/04/18 at 09:00 Ondansetron HCl (Zofran Inj) 4 mg Q6H PRN IV NAUSEA/VOMITING; Start 11/04/18 at 09:00 Acetaminophen (Tylenol Tab) 650 mg Q6H PRN PO .PAIN 1-3 OR TEMP; Start 11/04/18 at 09:00 Miscellaneous Information 1 ea NOTE XX ; Start 11/04/18 at 09:00 Glucose (Glutose) 15 gm Q15M PRN PO DECREASED GLUCOSE; Start 11/04/18 at 09:00 Glucose (Glutose) 22.5 gm Q15M PRN PO DECREASED GLUCOSE; Start 11/04/18 at 09:00 Dextrose (D50w Syringe) 25 ml Q15M PRN IV DECREASED GLUCOSE; Start 11/04/18 at 09:00 Dextrose (D50w Syringe) 50 ml Q15M PRN IV DECREASED GLUCOSE; Start 11/04/18 at 09:00 Glucagon (Glucagen) 1 mg Q15M PRN IM DECREASED GLUCOSE; Start 11/04/18 at 09:00 Glucose (Glutose) 15 gm Q15M PRN BUCCAL DECREASED GLUCOSE; Start 11/04/18 at 09:00 Miscellaneous Information Patients own medicat... BID@10,16 XX Last administered on 11/10/18 15:28; Admin Dose 1 EA; Start 11/04/18 at 16:00 Povidone Iodine (Povidone-Iodine) 1 applic BID TOP Last administered on 11/15/18 15:56; Admin Dose 1 APPLIC; Start 11/05/18 at 21:00 Sodium Hypochlorite (Dakins Diluted ()) 1 applic BID TP Last administered on 11/15/18 10:39; Admin Dose 1 APPLIC; Start 11/07/18 at 09:00 Hydralazine HCl (Apresoline) 10 mg Q4H PRN IV sbp >160 Last administered on 11/08/18 08:59; Admin Dose 10 MG; Start 11/08/18 at 09:00 Famotidine (Pepcid) 20 mg DAILY NGT Last administered on 11/15/18 10:37; Admin Dose 20 MG; Start 11/11/18 at 09:30 Fentanyl 100 ml @ 2.5 mls/hr TITRATE IV Last administered on 11/15/18 04:54; Admin Dose 7.5 MLS/HR; Start 11/11/18 at 09:30 Midazolam HCl 50 ml @ 1 mls/hr TITRATE IV Last administered on 11/15/18 15:31; Admin Dose 7 MLS/HR; Start 11/11/18 at 10:30 Albuterol (Ventolin Hfa) 2 puff Q6H RESP THERAPY INH Last administered on 11/15/18 14:49; Admin Dose 2 PUFF; Start 11/11/18 at 20:00 Ipratropium [place] (Atrovent Hfa) 4 puff Q6H RESP THERAPY INH Last administered on 11/15/18 14:49; Admin Dose 4 PUFF; Start 11/11/18 at 20:00 Atropine Sulfate (Atropine) 0.5 mg PRN PRN IV SYMPTOMATIC BRADYCARDIA; Start 11/11/18 at 23:00 Aspirin (Aspirin) 325 mg DAILY GTB Last administered on 11/15/18 10:36; Admin Dose 325 MG; Start 11/13/18 at 09:00 Clopidogrel Bisulfate (plaVIX) 75 mg DAILY GTB Last administered on 11/15/18 10:36; Admin Dose 75 MG; Start 11/13/18 at 09:00 Atorvastatin Calcium (Lipitor) 20 mg QHS GTB Last administered on 11/14/18 20:46; Admin Dose 20 MG; Start 11/13/18 at 21:00 Gabapentin (Neurontin Liquid) 300 mg BID GTB Last administered on 11/15/18 10:36; Admin Dose 300 MG; Start 11/13/18 at 09:00 Hydralazine HCl (Apresoline) 100 mg TID GTB Last administered on 11/15/18 15:56; Admin Dose 100 MG; Start 11/13/18 at 09:00 Metoclopramide HCl (Reglan) 10 mg Q6H IV Last administered on 11/15/18 15:56; Admin Dose 10 MG; Start 11/13/18 at 10:00 Polyethylene Glycol (Miralax) 17 gm DAILY NGT Last administered on 11/15/18 10:38; Admin Dose 17 GM; Start 11/13/18 at 10:00 Heparin Sodium (Porcine) (Heparin (5000 Units/1ml)) 5,000 unit BID SC Last administered on 6/28/19at 10:56; Admin Dose 5,000 UNIT; Start 11/14/18 at 21:00 Senna/Docusate Sodium (Senokot-S) 1 tab BID NGT Last administered on 11/15/18at 10:38; Admin Dose 1 TAB; Start 11/14/18 at 21:00 Bisacodyl (Dulcolax Supp) 10 mg DAILY PRN [place] CONSTIPATION Last administered on 11/14/18at 16:43; Admin Dose 10 MG; Start 11/14/18 at 16:30 Insulin Human Regular 100 unit/ Sodium Chloride 100 ml @ 0 mls/hr PER PROTOCOL IV Last administered on 11/15/18at 09:01; Admin Dose 2 MLS/HR; Start 11/15/18 at 06:30 Miscellaneous Information (* Miscellaneous Pharmacy Order) Treatment of Hypoglycemia: 1.BG 51... Per protocol XX ; Start 11/15/18 at 06:30 Dextrose (D50w Syringe) 25 ml Q15M PRN IV .DECREASED GLUCOSE; Start 11/15/18 at 06:30 Dextrose (D50w Syringe) 50 ml Q15M PRN IV .DECREASED GLUCOSE; Start 11/15/18 at 06:30 Furosemide (Lasix) 40 mg BID DIURETICS IV Last administered on 11/15/18at 10:36; Admin Dose 40 MG; Start 11/15/18 at 08:00 Diagnostic Test (Pha) (Accu-Chek) 1 ea Q1H XX ; Start 11/15/18 at 08:00 Methylprednisolone Sodium Succinate (Solu-Medrol) 40 mg Q12 IV Last administered on 11/15/18at 15:56; Admin Dose 40 MG; Start 11/15/18 at 11:30 Meropenem/Sodium Chloride 50 ml @ 100 mls/hr Q12 IVPB Last administered on 11/15/18at 15:56; Admin Dose 100 MLS/HR; Start 11/15/18 at 14:30 Levofloxacin (Levaquin) 500 mg DAILY@06 ONCE PO ; Start 11/16/18 at 06:00; Stop 11/16/18 at 06:01 Levofloxacin (Levaquin) 250 mg DAILY@06 PO ; Start 11/17/18 at 06:00 IV Flush (NS 10 ml) 10 ml PRN PRN IV FLUSH LINE; Start 11/15/18 at 15:30 KARL WOOD MD Nov 15, 2018 16:14
[2018-11-15] MEDS: ATORVASTATIN 20 MG TAB GTB SCH (21:49)
[2018-11-16] VITALS (47 sets, daily range): BP systolic 115–177; BP diastolic 58–86; PULSE 70–86; RESP 13–19
[2018-11-16] MEDS: ALBUTEROL HFA 8 GM INHALER INH SCH ×5 (01:30→19:20)
[2018-11-16] MEDS: IPRATROPIUM (HFA) 12.9 GM INHALER INH SCH ×5 (01:30→19:20)
[2018-11-16] MEDS: ACCU-CHEK XX SCH ×23 (01:54→23:11)
[2018-11-16] MEDS: METOCLOPRAMIDE 10 MG INJ IV SCH ×4 (04:06→21:14)
[2018-11-16] MEDS: FUROSEMIDE 40 MG INJ IV SCH (05:55)
[2018-11-16] MEDS: MIDAZOLAM (DRIP) 50 mg/50 mL 50 ML IV SCH ×3 (05:55→18:09)
[2018-11-16] MEDS ORDERED: LEVOFLOXACIN 500 MG TAB PO ONE (06:00)
[2018-11-16] MEDS ORDERED: METOLAZONE 5 MG TAB PO ONE (07:30)
--- NOTE | 2018-11-16 08:12 | PN ---
DATE: 11/16/2018 SUBJECTIVE: The patient is critically ill on full ventilatory support. The patient's urinary output has improved. No other events noted. OBJECTIVE: VITAL SIGNS: Blood pressure is 141/74, respirations 17, pulse 86, temperature 98.5. HEENT: Head is normocephalic. NECK: Supple. HEART: Regular rate. LUNGS: Show diminished breath sounds at the base. ABDOMEN: Soft, nontender to palpation without rebound or guarding. EXTREMITIES: Negative for clubbing, cyanosis, positive edema. DERMATOLOGIC: No rashes. MUSCULOSKELETAL: No joint effusion. NEUROLOGIC: No change in exam. MEDICATIONS: Have been reviewed. LABORATORY DATA: Has been reviewed. IMAGING STUDIES: Have been reviewed. MICROBIOLOGY: Has been reviewed. ASSESSMENT AND PLAN: 1. Nonoliguric acute kidney injury. Etiology is secondary to hemodynamics, contrast associated neph ropathy. The patient's renal function has been fluctuating but overall stable. Continue current grace atment plan, supportive care, renally dose all meds. We will monitor closely on diuretic therapy. 2. Volume overload. The etiology is secondary to acute kidney injury, IV fluids, possible diastolic heart failure. Continue current diuretic regimen of Lasix. We will add metolazone to augment diure sis. Monitor closely. 3. Anemia. Monitor hemoglobin and hematocrit levels. 4. Mineral bone disorder. Monitor calcium and phosphorus levels. 5. Ventilator-dependent respiratory failure. Vent settings and ABG was reviewed. Continue to monit or. 6. Elevated troponin, non-ST elevation myocardial infarction type 2. Continue medical management. 7. Arrhythmia. Continue current treatment plan. 8. Status post cardiac arrest. 9. Peripheral vascular disease, status post iliofemoral bypass. Continue to monitor. 10. Hypertension. Continue current blood pressure regimen. 11. Dyslipidemia. Continue statin therapy. 12. Acute encephalopathy, etiology is toxic metabolic. Dictated By: JEAN CLAUDE LARIOS DO NR/NTS Conf#: [id number] DID#: [id number] CC: TOMASA SCOTT;*EndCC*
[2018-11-16] MEDS: ERGOCALCIFEROL 50,000 UNIT CAP PO SCH (09:00)
[2018-11-16] MEDS: ASPIRIN 325 MG TAB GTB SCH (09:11)
[2018-11-16] MEDS: FAMOTIDINE 20 MG TAB NGT SCH (09:12)
[2018-11-16] MEDS: SENNA/DOCUSATE NA (8.6MG/50MG) TAB NGT SCH ×2 (09:12→21:18)
[2018-11-16] MEDS: DAKINS 0.0125%(1/40) 473 ML SOLUTION TP SCH ×2 (09:12→21:18)
[2018-11-16] MEDS: METHYLPREDNISOLONE 40 MG INJ IV SCH ×2 (09:12→21:14)
[2018-11-16] MEDS: POLYETHYLENE GLYCOL 17 GM PACKET NGT SCH (09:12)
[2018-11-16] MEDS: MEROPENEM 500MG/50 ML (PMX) 50 ML IVPB SCH ×2 (09:12→21:17)
[2018-11-16] MEDS: CLOPIDOGREL 75 MG TAB GTB SCH (09:43)
--- NOTE | 2018-11-16 09:44 | CONS ---
Consult Date/Type/Reason Admit Date/Time Nov 04, 2018 at 07:34 Initial Consult Date 11/11/18 Type of Consult Pulmonary Requesting Provider: KARL WOOD MD Date/Time of Note DATE: 11/16/18 TIME: 09:42 Subjective Appears to be slowly improving FiO2 decreased to 50%. Some radiographic improvement also. Tube feeding tolerated. Moves all 4 limbs of sedation. Objective Vital Signs Date Temp Pulse Resp B/P (MAP) Pulse Ox O2 O2 Flow FiO2 Time Delivery Rate 11/16/18 85 08:00 11/16/18 17 141/74 Mechanical 06:00 (96) Ventilator 11/16/18 96 50 05:26 11/16/18 98.5 04:00 Intake and Output 11/15/18 11/15/18 11/16/18 1515:00 23:00 07:00 IntakeIntake Total 526.3 ml 516.5 ml 519.0 ml OutputOutput Total 905 ml 1130 ml 845 ml BalanceBalance -378.7 ml -613.5 ml -326.0 ml Exam GENERAL: Well-nourished, well-developed gentleman, orally intubated on mechanical ventilation, appears comfortable at rest, no acute distress. VITAL SIGNS: NECK: Supple. No JVD or lymphadenopathy. CARDIAC: S1, S2, no added sounds or murmurs. CHEST: Diminished air entry bilaterally. ABDOMEN: Soft, nontender. No guarding or rebound. EXTREMITIES: No cyanosis, clubbing, 1+ edema. NEUROLOGIC: Generalized weakness. Vent Setting Ventilator Support Mode: AC Fraction of Inspired Oxygen pe: 50 Positive End Expiratory Pressu: 10.0 Results/Medications Result Diagram: 11/16/18 0450 11/16/18 0500 Results 24 hrs Laboratory Tests Test 11/15/18 10:33 11/15/18 11:34 11/15/18 12:39 11/15/18 14:02 Bedside Glucose 264 H 233 H 212 133 Test 11/15/18 15:19 11/15/18 16:15 11/15/18 17:01 11/15/18 18:32 Bedside Glucose 107 112 110 129 Test 11/15/18 19:39 11/15/18 21:55 11/15/18 23:01 11/15/18 23:51 Bedside Glucose 133 116 123 126 Test 11/16/18 01:07 11/16/18 01:57 11/16/18 03:01 11/16/18 04:01 Bedside Glucose 114 123 103 99 Test 11/16/18 04:46 11/16/18 04:50 11/16/18 05:00 11/16/18 05:53 Bedside Glucose 121 102 White Blood Count 16.8 H Red Blood Count 3.31 L Hemoglobin 9.8 L Hematocrit 31.0 L Mean Corpuscular 93.7 Volume Mean Corpuscular 29.6 Hemoglobin Mean Corpuscular 31.6 L Hemoglobin Concen t Red Cell 14.2 Distribution Width Platelet Count 283 Mean Platelet 11.0 H Volume Immature 1.100 H Granulocytes % Neutrophils % 87.7 H Lymphocytes % 3.5 L Monocytes % 7.6 Eosinophils % 0.0 Basophils % 0.1 Nucleated Red 0.1 H Blood Cells % Immature 0.180 H Granulocytes # Neutrophils # 14.7 H Lymphocytes # 0.6 L Monocytes # 1.3 H Eosinophils # 0.0 Basophils # 0.0 Nucleated Red 0.0 Blood Cells # Sodium Level 143 Potassium Level 3.9 Chloride Level 105 Carbon Dioxide 30 Level Anion Gap 8 Blood Urea 55 H Nitrogen Creatinine 1.51 H Est Glomerular Filtrat Rate mL/min Glucose Level 118 # Calcium Level 8.0 L Phosphorus Level 3.5 Magnesium Level 2.5 Test 11/16/18 07:00 11/16/18 07:32 11/16/18 08:42 Blood Gas Blood arterial Specimen Source Arterial Blood 11/16/2018 8:50:5 Date Drawn 2 AM Arterial Blood pH 7.450 (Temp corrected) Arterial Blood 40.9 pCO2 (Temp correct) Arterial Blood 88.1 pO2 (Temp corrected) Arterial Blood 27.8 H HCO3 Arterial Blood 3.5 H Base Excess Arterial Blood 96.7 Oxygen Saturation Jeison Test ACCEPTAB Arterial Blood Right Radial Gas Puncture Site Arterial 0.5 Blood Carboxyhemo globin Arterial Blood 0.1 Methemoglobin Blood Gas A-a O2 222.4 H Differential Oxyhemoglobin 96.1 Percent Blood Gas 37.0 Temperature Blood Gas 16.0 Respiration Rate Blood Gas Actual 16 Respiration Rate Blood Gas VENT - AC Modality FiO2 50.0 Blood Gas Tidal 550.0 Volume Blood Gas Low 5.0 PEEP Setting Blood Gas DT Notified Whom Blood Gas 11/16/2018 9:16:0 Notified Time 6 AM Bedside Glucose 138 109 Medications Current Medications Ergocalciferol (Drisdol) 50,000 unit Sa PO Last administered on 11/09/18at 09:28; Admin Dose 50,000 UNIT; Start 11/09/18 at 09:00 Miscellaneous Medication (Bystolic) 20 mg DAILY PO Last administered on 11/11/18at 09:03; Admin Dose 20 MG; Start 11/04/18 at 09:00; Status Hold Clonidine (Catapres) 0.1 mg Q6H PRN PO SBP>160; Start 11/04/18 at 09:00 IV Flush (NS 3 ml) 3 ml PER PROTOCOL IV ; Start 11/04/18 at 09:00 Ondansetron HCl (Zofran Inj) 4 mg Q6H PRN IV NAUSEA/VOMITING; Start 11/04/18 at 09:00 Acetaminophen (Tylenol Tab) 650 mg Q6H PRN PO .PAIN 1-3 OR TEMP; Start 11/04/18 at 09:00 Miscellaneous Information 1 ea NOTE XX ; Start 11/04/18 at 09:00 Glucose (Glutose) 15 gm Q15M PRN PO DECREASED GLUCOSE; Start 11/04/18 at 09:00 Glucose (Glutose) 22.5 gm Q15M PRN PO DECREASED GLUCOSE; Start 11/04/18 at 09:00 Dextrose (D50w Syringe) 25 ml Q15M PRN IV DECREASED GLUCOSE; Start 11/04/18 at 09:00 Dextrose (D50w Syringe) 50 ml Q15M PRN IV DECREASED GLUCOSE; Start 11/04/18 at 09:00 Glucagon (Glucagen) 1 mg Q15M PRN IM DECREASED GLUCOSE; Start 11/04/18 at 09:00 Glucose (Glutose) 15 gm Q15M PRN BUCCAL DECREASED GLUCOSE; Start 11/04/18 at 09:00 Miscellaneous Information Patients own medicat... BID@10,16 XX Last administered on 11/10/18at 15:28; Admin Dose 1 EA; Start 11/04/18 at 16:00 Povidone Iodine (Povidone-Iodine) 1 applic BID TOP Last administered on at 21:59; Admin Dose 1 APPLIC; Start 11/05/18 at 21:00 Sodium Hypochlorite (Dakins Diluted (1/40)) 1 applic BID TP Last administered on 11/16/18 09:12; Admin Dose 1 APPLIC; Start 11/07/18 at 09:00 Hydralazine HCl (Apresoline) 10 mg Q4H PRN IV sbp >160 Last administered on 11/08/18 08:59; Admin Dose 10 MG; Start 11/08/18 at 09:00 Famotidine (Pepcid) 20 mg DAILY NGT Last administered on 11/16/18 09:12; Admin Dose 20 MG; Start 11/11/18 at 09:30 Fentanyl 100 ml @ 2.5 mls/hr TITRATE IV Last administered on 11/15/18 19:46; Admin Dose 2.5 MLS/HR; Start 11/11/18 at 09:30 Midazolam HCl 50 ml @ 1 mls/hr TITRATE IV Last administered on 11/16/18 05:55; Admin Dose 7 MLS/HR; Start 11/11/18 at 10:30 Albuterol (Ventolin Hfa) 2 puff Q6H RESP THERAPY INH Last administered on 11/16/18 01:30; Admin Dose 2 PUFF; Start 11/11/18 at 20:00 Ipratropium [place] (Atrovent Hfa) 4 puff Q6H RESP THERAPY INH Last administered on 11/16/18 01:30; Admin Dose 4 PUFF; Start 11/11/18 at 20:00 Atropine Sulfate (Atropine) 0.5 mg PRN PRN IV SYMPTOMATIC BRADYCARDIA; Start 11/11/18 at 23:00 Aspirin (Aspirin) 325 mg DAILY GTB Last administered on 11/16/18 09:11; Admin Dose 325 MG; Start 11/13/18 at 09:00 Clopidogrel Bisulfate (plaVIX) 75 mg DAILY GTB Last administered on 11/15/18 10:36; Admin Dose 75 MG; Start 11/13/18 at 09:00 Atorvastatin Calcium (Lipitor) 20 mg QHS GTB Last administered on 11/15/18 21:49; Admin Dose 20 MG; Start 11/13/18 at 21:00 Gabapentin (Neurontin Liquid) 300 mg BID GTB Last administered on 11/15/18 21:51; Admin Dose 300 MG; Start 11/13/18 at 09:00 Hydralazine HCl (Apresoline) 100 mg TID GTB Last administered on 11/16/18 09:11; Admin Dose 100 MG; Start 11/13/18 at 09:00 Metoclopramide HCl (Reglan) 10 mg Q6H IV Last administered on 11/16/18 04:06; Admin Dose 10 MG; Start 11/13/18 at 10:00 Polyethylene Glycol (Miralax) 17 gm DAILY NGT Last administered on 11/16/18 09:12; Admin Dose 17 GM; Start 11/13/18 at 10:00 Heparin Sodium (Porcine) (Heparin (5000 Units/1ml)) 5,000 unit BID SC Last administered on 11/15/18 21:57; Admin Dose 5,000 UNIT; Start 11/14/18 at 21:00 Senna/Docusate Sodium (Senokot-S) 1 tab BID NGT Last administered on 11/16/18 09:12; Admin Dose 1 TAB; Start 11/14/18 at 21:00 Bisacodyl (Dulcolax Supp) 10 mg DAILY PRN [place] CONSTIPATION Last administered on 11/14/18 16:43; Admin Dose 10 MG; Start 11/14/18 at 16:30 Insulin Human Regular 100 unit/ Sodium Chloride 100 ml @ 0 mls/hr PER PROTOCOL IV Last administered on 11/15/18 21:59; Admin Dose 5 MLS/HR; Start 11/15/18 at 06:30 Miscellaneous Information (* Miscellaneous Pharmacy Order) Treatment of Hypoglycemia: 1.BG 51... Per protocol XX ; Start 11/15/18 at 06:30 Dextrose (D50w Syringe) 25 ml Q15M PRN IV .DECREASED GLUCOSE; Start 11/15/18 at 06:30 Dextrose (D50w Syringe) 50 ml Q15M PRN IV .DECREASED GLUCOSE; Start 11/15/18 at 06:30 Furosemide (Lasix) 40 mg BID DIURETICS IV Last administered on 11/16/18 05:55; Admin Dose 40 MG; Start 11/15/18 at 08:00 Diagnostic Test (Pha) (Accu-Chek) 1 ea Q1H XX Last administered on 11/16/18 07:32; Admin Dose 1 EA; Start 11/15/18 at 08:00 Methylprednisolone Sodium Succinate (Solu-Medrol) 40 mg Q12 IV Last administered on 11/16/18at 09:12; Admin Dose 40 MG; Start 11/15/18 at 11:30 Meropenem/Sodium Chloride 50 ml @ 100 mls/hr Q12 IVPB Last administered on 11/16/18at 09:12; Admin Dose 100 MLS/HR; Start 11/15/18 at 14:30 Levofloxacin (Levaquin) 250 mg DAILY@06 PO ; Start 11/17/18 at 06:00 IV Flush (NS 10 ml) 10 ml PRN PRN IV FLUSH LINE; Start 11/15/18 at 15:30 Assessment/Plan Hospital Course (Demo Recall) IMPRESSION 1. Acute hypoxemic respiratory failure likely following cardiopulmonary arrest. Chest x-ray appears to be consistent with ARDS. 2. Recent new onset bradycardia.Likely secondary to b sharon. 3. History of peripheral vascular disease. 4. History of poorly controlled diabetes. 5. Anemia, no GIB 6. Leukocytosis likely secondary to steroids. PLAN: 1. Diuretics as tolerated. Ultrasound chest to evaluate for possible pleural effusions requiring thoracentesis no significant pleural effusion noted in right lung. 2. Continue mechanical ventilation. Increase PEEP and tidal volume adjusted.Anticipate weaning trials in the next 48 hours. 3. Insulin drip for hyperglycemia decrease IV Solu-Medrol. 4. Continue fentanyl and Versed. 5. Decrease Lasix. 6. Deep vein thrombosis and gastrointestinal prophylaxis. 7. Vascular recommendations regarding postop wound care, also appreciate podiatry recommendations. Critical care time 40 minutes. EDWIGE CARRANZA MD, [facility] Nov 16, 2018 09:44
[2018-11-16] MEDS: HEPARIN 5,000 UNIT/1 ML VIAL SC SCH ×2 (09:45→21:42)
[2018-11-16] MEDS: GABAPENTIN (50 MG/ML PO SYG) GTB SCH ×2 (09:46→21:17)
[2018-11-16] MEDS: POVIDONE IODINE 10% 28.4 GM OINT TOP SCH ×2 (09:46→21:18)
[2018-11-16] MEDS: FENTAnyl (DRIP) 1000 mcg/100mL 100 ML IV SCH (10:52)
--- NOTE | 2018-11-16 13:47 | CONS ---
Consult Date/Type/Reason Admit Date/Time Nov 04, 2018 at 07:34 Initial Consult Date 11/11/18 Type of Consultation: Urology Requesting Provider: KARL WOOD MD Date/Time of Note DATE: 11/16/18 TIME: 13:45 Subjective NO acute events - no new episodes of rossana - con't resp Rx - Vs stable ROS: No fever, no chills, no nausea, no vomiting, no diarrhea/constipation - per nurse + SOB No recent weight changes No chest pain, no PND, no orthopnea Objective Vitals Vital Signs Date Temp Pulse Resp B/P (MAP) Pulse Ox O2 O2 Flow FiO2 Time Delivery Rate 11/16/18 98.4 81 19 138/67 100 Mechanical 12:00 (90) Ventilator 11/16/18 50 10:54 Intake and Output 11/15/18 11/15/18 11/16/18 1515:00 23:00 07:00 IntakeIntake Total 526.3 ml 516.5 ml 526.5 ml OutputOutput Total 905 ml 1130 ml 845 ml BalanceBalance -378.7 ml -613.5 ml -318.5 ml Exam General: WN/WD/NAD, AOx 0 HEENT: Unicetric/atraumatic/EOMI (does not follow commands) - intubated NECK: JVD elevated, no thyromegaly Lymph: no lymphadenopathy HEART: regular with no S3, II/ systolic murmur at apex, PMI L LUNGS: Coarse sounds ABD: soft, NT, ND, +BS : Intact Neuro: non focal SKIN: chronic changes EXT: trace edema Results/Medications Result Diagram: 11/16/18 0450 11/16/18 0500 Results 24 hrs Laboratory Tests Test 11/15/18 14:02 11/15/18 15:19 11/15/18 16:15 11/15/18 17:01 Bedside Glucose 133 107 112 110 Test 11/15/18 18:32 11/15/18 19:39 11/15/18 21:55 11/15/18 23:01 Bedside Glucose 129 133 116 123 Test 11/15/18 23:51 11/16/18 01:07 11/16/18 01:57 11/16/18 03:01 Bedside Glucose 126 114 123 103 Test 11/16/18 04:01 11/16/18 04:46 11/16/18 04:50 11/16/18 05:00 Bedside Glucose 99 121 White Blood Count 16.8 H Red Blood Count 3.31 L Hemoglobin 9.8 L Hematocrit 31.0 L Mean Corpuscular 93.7 Volume Mean Corpuscular 29.6 Hemoglobin Mean Corpuscular 31.6 L Hemoglobin Concen t Red Cell 14.2 Distribution Width Platelet Count 283 Mean Platelet 11.0 H Volume Immature 1.100 H Granulocytes % Neutrophils % 87.7 H Lymphocytes % 3.5 L Monocytes % 7.6 Eosinophils % 0.0 Basophils % 0.1 Nucleated Red 0.1 H Blood Cells % Immature 0.180 H Granulocytes # Neutrophils # 14.7 H Lymphocytes # 0.6 L Monocytes # 1.3 H Eosinophils # 0.0 Basophils # 0.0 Nucleated Red 0.0 Blood Cells # Sodium Level 143 Potassium Level 3.9 Chloride Level 105 Carbon Dioxide 30 Level Anion Gap 8 Blood Urea 55 H Nitrogen Creatinine 1.51 H Est Glomerular Filtrat Rate mL/min Glucose Level 118 # Calcium Level 8.0 L Phosphorus Level 3.5 Magnesium Level 2.5 Test 11/16/18 05:53 11/16/18 07:00 11/16/18 07:32 11/16/18 08:42 Bedside Glucose 102 138 109 Blood Gas Blood arterial Specimen Source Arterial Blood 11/16/2018 8:50:5 Date Drawn 2 AM Arterial Blood pH 7.450 (Temp corrected) Arterial Blood 40.9 pCO2 (Temp correct) Arterial Blood 88.1 pO2 (Temp corrected) Arterial Blood 27.8 H HCO3 Arterial Blood 3.5 H Base Excess Arterial Blood 96.7 Oxygen Saturation Jeison Test ACCEPTAB Arterial Blood Right Radial Gas Puncture Site Arterial 0.5 Blood Carboxyhemo globin Arterial Blood 0.1 Methemoglobin Blood Gas A-a O2 222.4 H Differential Oxyhemoglobin 96.1 Percent Blood Gas 37.0 Temperature Blood Gas 16.0 Respiration Rate Blood Gas Actual 16 Respiration Rate Blood Gas VENT - AC Modality FiO2 50.0 Blood Gas Tidal 550.0 Volume Blood Gas Low 5.0 PEEP Setting Blood Gas DT Notified Whom Blood Gas 11/16/2018 9:16:0 Notified Time 6 AM Test 11/16/18 10:05 11/16/18 12:06 Bedside Glucose 134 92 Home Meds Active Scripts Silver Sulfadiazine* (Silvadene*) 1% - 20 Gm Cream.gm., 1 APPLIC TOP DAILY, #1 TUB Prov:JESSIE WONG MD 06/12/18 Amoxicillin-Clavulanate K* (Augmentin*) 875 Mg Tab, 875 MG PO BID, #28 TAB Prov:AMANDA GOMEZ MD 06/08/14 Reported Medications Insulin Aspart (Novolog Mix (70/30)) 100 Units/Ml Soln, 28 SC with diinner, VIAL 11/04/18 Insulin Aspart (Novolog Mix (70/30)) 100 Units/Ml Soln, 38 SC WITH BREAKFAST, VIAL 11/04/18 Benazepril Hcl* (Benazepril Hcl*) 40 Mg Tablet, 40 MG PO DAILY, #30 TAB 11/04/18 Ergocalciferol (Vitamin D2) (VITAMIN D2) 50,000 Unit Capsule, 85535 UNIT PO weekly for saturdays, CAP 11/04/18 Omeprazole* (Omeprazole*) 20 Mg Capsule.dr, 20 MG PO DAILY, #30 CAP 11/04/18 Aspirin* (Aspirin* EC) 81 Mg Tablet.dr, 81 MG PO DAILY, TAB 11/04/18 Gabapentin* (Gabapentin*) 300 Mg Capsule, 300 MG PO BID, #60 CAP 11/04/18 Nebivolol Hcl* (Bystolic*) 20 Mg Tablet, 20 MG PO DAILY, #30 TAB 11/04/18 Atorvastatin Calcium* (Atorvastatin Calcium*) 20 Mg Tablet, 20 MG PO QHS, #30 TAB 11/04/18 Sulfasalazine (Azulfidine) 500 Mg Tab, 1000 MG PO TID, TAB 06/02/14 Medications Current Medications Ergocalciferol (Drisdol) 50,000 unit Sa PO Last administered on 11/09/18at 09:28; Admin Dose 50,000 UNIT; Start 11/09/18 at 09:00 Miscellaneous Medication (Bystolic) 20 mg DAILY PO Last administered on 11/11/18at 09:03; Admin Dose 20 MG; Start 11/04/18 at 09:00; Status Hold Clonidine (Catapres) 0.1 mg Q6H PRN PO SBP>160; Start 11/04/18 at 09:00 IV Flush (NS 3 ml) 3 ml PER PROTOCOL IV ; Start 11/04/18 at 09:00 Ondansetron HCl (Zofran Inj) 4 mg Q6H PRN IV NAUSEA/VOMITING; Start 11/04/18 at 09:00 Acetaminophen (Tylenol Tab) 650 mg Q6H PRN PO .PAIN 1-3 OR TEMP; Start 11/04/18 at 09:00 Miscellaneous Information 1 ea NOTE XX ; Start 11/04/18 at 09:00 Glucose (Glutose) 15 gm Q15M PRN PO DECREASED GLUCOSE; Start 11/04/18 at 09:00 Glucose (Glutose) 22.5 gm Q15M PRN PO DECREASED GLUCOSE; Start 11/04/18 at 09:00 Dextrose (D50w Syringe) 25 ml Q15M PRN IV DECREASED GLUCOSE; Start 11/04/18 at 09:00 Dextrose (D50w Syringe) 50 ml Q15M PRN IV DECREASED GLUCOSE; Start 11/04/18 at 09:00 Glucagon (Glucagen) 1 mg Q15M PRN IM DECREASED GLUCOSE; Start 11/04/18 at 09:00 Glucose (Glutose) 15 gm Q15M PRN BUCCAL DECREASED GLUCOSE; Start 11/04/18 at 09:00 Miscellaneous Information Patients own medicat... BID@10,16 XX Last administered on 11/10/18at 15:28; Admin Dose 1 EA; Start 11/04/18 at 16:00 Povidone Iodine (Povidone-Iodine) 1 applic BID TOP Last administered on 11/16/18at 09:46; Admin Dose 1 APPLIC; Start 11/05/18 at 21:00 Sodium Hypochlorite (Dakins Diluted ()) 1 applic BID TP Last administered on 11/16/18at 09:12; Admin Dose 1 APPLIC; Start 11/07/18 at 09:00 Hydralazine HCl (Apresoline) 10 mg Q4H PRN IV sbp >160 Last administered on 11/08/18at 08:59; Admin Dose 10 MG; Start 11/08/18 at 09:00 Famotidine (Pepcid) 20 mg DAILY NGT Last administered on 11/16/18at 09:12; Admin Dose 20 MG; Start 11/11/18 at 09:30 Fentanyl 100 ml @ 2.5 mls/hr TITRATE IV Last administered on 11/16/18 10:52; Admin Dose 7.5 MLS/HR; Start 11/11/18 at 09:30 Midazolam HCl 50 ml @ 1 mls/hr TITRATE IV Last administered on 11/16/18 11:24; Admin Dose 9 MLS/HR; Start 11/11/18 at 10:30 Albuterol (Ventolin Hfa) 2 puff Q6H RESP THERAPY INH Last administered on 11/16/18 10:23; Admin Dose 2 PUFF; Start 11/11/18 at 20:00 Ipratropium [place] (Atrovent Hfa) 4 puff Q6H RESP THERAPY INH Last administered on 11/16/18 10:23; Admin Dose 4 PUFF; Start 11/11/18 at 20:00 Atropine Sulfate (Atropine) 0.5 mg PRN PRN IV SYMPTOMATIC BRADYCARDIA; Start 11/11/18 at 23:00 Aspirin (Aspirin) 325 mg DAILY GTB Last administered on 11/16/18 09:11; Admin Dose 325 MG; Start 11/13/18 at 09:00 Clopidogrel Bisulfate (plaVIX) 75 mg DAILY GTB Last administered on 11/16/18 09:43; Admin Dose 75 MG; Start 11/13/18 at 09:00 Atorvastatin Calcium (Lipitor) 20 mg QHS GTB Last administered on 11/15/18 21:49; Admin Dose 20 MG; Start 11/13/18 at 21:00 Gabapentin (Neurontin Liquid) 300 mg BID GTB Last administered on 11/16/18 09:46; Admin Dose 300 MG; Start 11/13/18 at 09:00 Hydralazine HCl (Apresoline) 100 mg TID GTB Last administered on 11/16/18 13:30; Admin Dose 100 MG; Start 11/13/18 at 09:00 Metoclopramide HCl (Reglan) 10 mg Q6H IV Last administered on 11/16/18 09:45; Admin Dose 10 MG; Start 11/13/18 at 10:00 Polyethylene Glycol (Miralax) 17 gm DAILY NGT Last administered on 11/16/18 09:12; Admin Dose 17 GM; Start 11/13/18 at 10:00 Heparin Sodium (Porcine) (Heparin (5000 Units/1ml)) 5,000 unit BID SC Last administered on 11/16/18 09:45; Admin Dose 5,000 UNIT; Start 11/14/18 at 21:00 Senna/Docusate Sodium (Senokot-S) 1 tab BID NGT Last administered on 11/16/18 09:12; Admin Dose 1 TAB; Start 11/14/18 at 21:00 Bisacodyl (Dulcolax Supp) 10 mg DAILY PRN [place] CONSTIPATION Last administered on 11/14/18 16:43; Admin Dose 10 MG; Start 11/14/18 at 16:30 Insulin Human Regular 100 unit/ Sodium Chloride 100 ml @ 0 mls/hr PER PROTOCOL IV Last administered on 11/15/18at 21:59; Admin Dose 5 MLS/HR; Start 11/15/18 at 06:30 Miscellaneous Information (* Miscellaneous Pharmacy Order) Treatment of Hypoglycemia: 1.BG 51... Per protocol XX ; Start 11/15/18 at 06:30 Dextrose (D50w Syringe) 25 ml Q15M PRN IV .DECREASED GLUCOSE; Start 11/15/18 at 06:30 Dextrose (D50w Syringe) 50 ml Q15M PRN IV .DECREASED GLUCOSE; Start 11/15/18 at 06:30 Diagnostic Test (Pha) (Accu-Chek) 1 ea Q1H XX Last administered on 11/16/18at 07:32; Admin Dose 1 EA; Start 11/15/18 at 08:00 Methylprednisolone Sodium Succinate (Solu-Medrol) 40 mg Q12 IV Last administer ed on 11/16/18 09:12; Admin Dose 40 MG; Start 11/15/18 at 11:30 Meropenem/Sodium Chloride 50 ml @ 100 mls/hr Q12 IVPB Last administered on 11/16/18 09:12; Admin Dose 100 MLS/HR; Start 11/15/18 at 14:30 Levofloxacin (Levaquin) 250 mg DAILY@06 PO ; Start 11/17/18 at 06:00 IV Flush (NS 10 ml) 10 ml PRN PRN IV FLUSH LINE; Start 11/15/18 at 15:30 Furosemide (Lasix) 40 mg DAILY@0600 IV ; Start 11/17/18 at 06:00 Assessment/Plan Hospital Course (Demo Recall) 1. Preoperative evaluation prior to possible need for peripheral revascularization surgery.-neg trop x 3 and NL EF by echo with no sig valve abnl - s/p decomp[ensation and CODE Blue - pt was rossana last night, now in sinus - con't supportive Rx. Con't med rx. Con't supportive rX. 2. Peripheral arterial disease with nonhealing gangrenous changes in left toe ulceration - post op now. Treated. 3. Hypertension, under reasonable control on current medications. NOw stable. 4. Dyslipidemia. 5. Diabetes mellitus- con't to keep euglycemic 6. s/p cardiopulmonary arrest - mild be in mild ARDS now - con;t resp Rx - pulmonary follows 7. Bradycardic intermittenjt by tele - now back to sinus - will monitor - dopa gtt if sustained rossana. 8. Positive troponin after arrest-? secondary to or primary to arrest - no intervention planned now. 9. Anemia - H/H stable - no bleeding now, RAJI BROWNE MD Nov 16, 2018 13:47
--- NOTE | 2018-11-16 13:57 | CONS ---
Assessment/Plan Assessment/Plan Hospital Course (Demo Recall) No acute changes patient remains on vent support high PEEP sedated and also on insulin drip, he is afebrile WBC 16.8 platelets 283 neutrophils 87.7 BUN 55 creatinine 1.51 Endotracheal aspirate growing Alice albicans, left foot wound culture grew Klebsiella pneumoniae ESBL and Stenotrophomonas maltophilia Antimicrobials, meropenem, Levaquin Indwelling: Endotracheal tube, NG tube, Vora, PICC line Physical examination: Well-developed elderly man who is in no distress head atraumatic normocephalic neck is supple chest rise symmetrical breath sounds diminished bases heart S1-S2 abdomen soft bowel sounds present extremities with left foot dressing intact Assessment: 1. Status post cardiac arrest 2. Non-ST elevation [place] 3. Acute respiratory failure, possibly aspirated now with radiographic findings of ARDS 4. Left foot gangrene 5. Peripheral arterial disease status post left femoral to posterior tibial bypass 11/08/18 6. Diabetes 7. History of left foot second toe amputation 8. Acute kidney insufficiency Plan: Remains unchanged, add antifungal coverage, continue antibiotics, steroids, vent management per pulmonary Consultation Date/Type/Reason Admit Date/Time Nov 04, 2018 at 07:34 Initial Consult Date Type of Consult id Requesting Provider: KARL WOOD MD Date/Time of Note DATE: 11/16/18 TIME: 13:56 Exam/Review of Systems Exam Vitals Vital Signs Date Temp Pulse Resp B/P (MAP) Pulse Ox O2 O2 Flow FiO2 Time Delivery Rate 11/16/18 98.4 81 19 138/67 100 Mechanical 12:00 (90) Ventilator 11/16/18 50 10:54 Intake and Output 11/15/18 11/15/18 11/16/18 1515:00 23:00 07:00 IntakeIntake Total 526.3 ml 516.5 ml 526.5 ml OutputOutput Total 905 ml 1130 ml 845 ml BalanceBalance -378.7 ml -613.5 ml -318.5 ml Results Result Diagram: 11/16/18 0450 11/16/18 0500 Results 24hrs Laboratory Tests Test 11/15/18 14:02 11/15/18 15:19 11/15/18 16:15 11/15/18 17:01 Bedside Glucose 133 107 112 110 Test 11/15/18 18:32 11/15/18 19:39 11/15/18 21:55 11/15/18 23:01 Bedside Glucose 129 133 116 123 Test 11/15/18 23:51 11/16/18 01:07 11/16/18 01:57 11/16/18 03:01 Bedside Glucose 126 114 123 103 Test 11/16/18 04:01 11/16/18 04:46 11/16/18 04:50 11/16/18 05:00 Bedside Glucose 99 121 White Blood Count 16.8 H Red Blood Count 3.31 L Hemoglobin 9.8 L Hematocrit 31.0 L Mean Corpuscular 93.7 Volume Mean Corpuscular 29.6 Hemoglobin Mean Corpuscular 31.6 L Hemoglobin Concen t Red Cell 14.2 Distribution Width Platelet Count 283 Mean Platelet 11.0 H Volume Immature 1.100 H Granulocytes % Neutrophils % 87.7 H Lymphocytes % 3.5 L Monocytes % 7.6 Eosinophils % 0.0 Basophils % 0.1 Nucleated Red 0.1 H Blood Cells % Immature 0.180 H Granulocytes # Neutrophils # 14.7 H Lymphocytes # 0.6 L Monocytes # 1.3 H Eosinophils # 0.0 Basophils # 0.0 Nucleated Red 0.0 Blood Cells # Sodium Level 143 Potassium Level 3.9 Chloride Level 105 Carbon Dioxide 30 Level Anion Gap 8 Blood Urea 55 H Nitrogen Creatinine 1.51 H Est Glomerular Filtrat Rate mL/min Glucose Level 118 # Calcium Level 8.0 L Phosphorus Level 3.5 Magnesium Level 2.5 Test 11/16/18 05:53 11/16/18 07:00 11/16/18 07:32 11/16/18 08:42 Bedside Glucose 102 138 109 Blood Gas Blood arterial Specimen Source Arterial Blood 11/16/2018 8:50:5 Date Drawn 2 AM Arterial Blood pH 7.450 (Temp corrected) Arterial Blood 40.9 pCO2 (Temp correct) Arterial Blood 88.1 pO2 (Temp corrected) Arterial Blood 27.8 H HCO3 Arterial Blood 3.5 H Base Excess Arterial Blood 96.7 Oxygen Saturation Jeison Test ACCEPTAB Arterial Blood Right Radial Gas Puncture Site Arterial 0.5 Blood Carboxyhemo globin Arterial Blood 0.1 Methemoglobin Blood Gas A-a O2 222.4 H Differential Oxyhemoglobin 96.1 Percent Blood Gas 37.0 Temperature Blood Gas 16.0 Respiration Rate Blood Gas Actual 16 Respiration Rate Blood Gas VENT - AC Modality FiO2 50.0 Blood Gas Tidal 550.0 Volume Blood Gas Low 5.0 PEEP Setting Blood Gas DT Notified Whom Blood Gas 11/16/2018 9:16:0 Notified Time 6 AM Test 11/16/18 10:05 11/16/18 12:06 Bedside Glucose 134 92 Medications Medication Current Medications Ergocalciferol (Drisdol) 50,000 unit Sa PO Last administered on 11/09/18at 09:28; Admin Dose 50,000 UNIT; Start 11/09/18 at 09:00 Miscellaneous Medication (Bystolic) 20 mg DAILY PO Last administered on 11/11/18at 09:03; Admin Dose 20 MG; Start 11/04/18 at 09:00; Status Hold Clonidine (Catapres) 0.1 mg Q6H PRN PO SBP>160; Start 11/04/18 at 09:00 IV Flush (NS 3 ml) 3 ml PER PROTOCOL IV ; Start 11/04/18 at 09:00 Ondansetron HCl (Zofran Inj) 4 mg Q6H PRN IV NAUSEA/VOMITING; Start 11/04/18 at 09:00 Acetaminophen (Tylenol Tab) 650 mg Q6H PRN PO .PAIN 1-3 OR TEMP; Start 11/04/18 at 09:00 Miscellaneous Information 1 ea NOTE XX ; Start 11/04/18 at 09:00 Glucose (Glutose) 15 gm Q15M PRN PO DECREASED GLUCOSE; Start 11/04/18 at 09:00 Glucose (Glutose) 22.5 gm Q15M PRN PO DECREASED GLUCOSE; Start 11/04/18 at 09:00 Dextrose (D50w Syringe) 25 ml Q15M PRN IV DECREASED GLUCOSE; Start 11/04/18 at 09:00 Dextrose (D50w Syringe) 50 ml Q15M PRN IV DECREASED GLUCOSE; Start 11/04/18 at 09:00 Glucagon (Glucagen) 1 mg Q15M PRN IM DECREASED GLUCOSE; Start 11/04/18 at 09:00 Glucose (Glutose) 15 gm Q15M PRN BUCCAL DECREASED GLUCOSE; Start 11/04/18 at 09:00 Miscellaneous Information Patients own medicat... BID@10,16 XX Last administered on 11/10/18at 15:28; Admin Dose 1 EA; Start 11/04/18 at 16:00 Povidone Iodine (Povidone-Iodine) 1 applic BID TOP Last administered on 11/16/18 09:46; Admin Dose 1 APPLIC; Start 11/05/18 at 21:00 Sodium Hypochlorite (Dakins Diluted (40)) 1 applic BID TP Last administered on 11/16/18 09:12; Admin Dose 1 APPLIC; Start 11/07/18 at 09:00 Hydralazine HCl (Apresoline) 10 mg Q4H PRN IV sbp >160 Last administered on 11/08/18 08:59; Admin Dose 10 MG; Start 11/08/18 at 09:00 Famotidine (Pepcid) 20 mg DAILY NGT Last administered on 11/16/18 09:12; Admin Dose 20 MG; Start 11/11/18 at 09:30 Fentanyl 100 ml @ 2.5 mls/hr TITRATE IV Last administered on 11/16/18 10:52; Admin Dose 7.5 MLS/HR; Start 11/11/18 at 09:30 Midazolam HCl 50 ml @ 1 mls/hr TITRATE IV Last administered on 11/16/18 11:24; Admin Dose 9 MLS/HR; Start 11/11/18 at 10:30 Albuterol (Ventolin Hfa) 2 puff Q6H RESP THERAPY INH Last administered on 11/16/18 10:23; Admin Dose 2 PUFF; Start 11/11/18 at 20:00 Ipratropium [place] (Atrovent Hfa) 4 puff Q6H RESP THERAPY INH Last administered on 11/16/18 10:23; Admin Dose 4 PUFF; Start 11/11/18 at 20:00 Atropine Sulfate (Atropine) 0.5 mg PRN PRN IV SYMPTOMATIC BRADYCARDIA; Start 11/11/18 at 23:00 Aspirin (Aspirin) 325 mg DAILY GTB Last administered on 11/16/18 09:11; Admin Dose 325 MG; Start 11/13/18 at 09:00 Clopidogrel Bisulfate (plaVIX) 75 mg DAILY GTB Last administered on 11/16/18 09:43; Admin Dose 75 MG; Start 11/13/18 at 09:00 Atorvastatin Calcium (Lipitor) 20 mg QHS GTB Last administered on 11/15/18 21:49; Admin Dose 20 MG; Start 11/13/18 at 21:00 Gabapentin (Neurontin Liquid) 300 mg BID GTB Last administered on 11/16/18 09:46; Admin Dose 300 MG; Start 11/13/18 at 09:00 Hydralazine HCl (Apresoline) 100 mg TID GTB Last administered on 11/16/18 13:30; Admin Dose 100 MG; Start 11/13/18 at 09:00 Metoclopramide HCl (Reglan) 10 mg Q6H IV Last administered on 11/16/18 09:45; Admin Dose 10 MG; Start 11/13/18 at 10:00 Polyethylene Glycol (Miralax) 17 gm DAILY NGT Last administered on 11/16/18 09:12; Admin Dose 17 GM; Start 11/13/18 at 10:00 Heparin Sodium (Porcine) (Heparin (5000 Units/1ml)) 5,000 unit BID SC Last administered on 11/16/18 09:45; Admin Dose 5,000 UNIT; Start 11/14/18 at 21:00 Senna/Docusate Sodium (Senokot-S) 1 tab BID NGT Last administered on 11/16/18 09:12; Admin Dose 1 TAB; Start 11/14/18 at 21:00 Bisacodyl (Dulcolax Supp) 10 mg DAILY PRN [place] CONSTIPATION Last administered on 11/14/18 16:43; Admin Dose 10 MG; Start 11/14/18 at 16:30 Insulin Human Regular 100 unit/ Sodium Chloride 100 ml @ 0 mls/hr PER PROTOCOL IV Last administered on 11/15/18 21:59; Admin Dose 5 MLS/HR; Start 11/15/18 at 06:30 Miscellaneous Information (* Miscellaneous Pharmacy Order) Treatment of Hypoglycemia: 1.BG 51... Per protocol XX ; Start 11/15/18 at 06:30 Dextrose (D50w Syringe) 25 ml Q15M PRN IV .DECREASED GLUCOSE; Start 11/15/18 at 06:30 Dextrose (D50w Syringe) 50 ml Q15M PRN IV .DECREASED GLUCOSE; Start 11/15/18 at 06:30 Diagnostic Test (Pha) (Accu-Chek) 1 ea Q1H XX Last administered on 6/29/19at 07:32; Admin Dose 1 EA; Start 11/15/18 at 08:00 Methylprednisolone Sodium Succinate (Solu-Medrol) 40 mg Q12 IV Last administered on 11/16/18at 09:12; Admin Dose 40 MG; Start 11/15/18 at 11:30 Meropenem/Sodium Chloride 50 ml @ 100 mls/hr Q12 IVPB Last administered on 11/16/18at 09:12; Admin Dose 100 MLS/HR; Start 11/15/18 at 14:30 Levofloxacin (Levaquin) 250 mg DAILY@06 PO ; Start 11/17/18 at 06:00 IV Flush (NS 10 ml) 10 ml PRN PRN IV FLUSH LINE; Start 11/15/18 at 15:30 Furosemide (Lasix) 40 mg DAILY@0600 IV ; Start 11/17/18 at 06:00 HERRERA MURILLO NP Nov 16, 2018 13:57
[2018-11-16] MEDS: FLUCONAZOLE 100 MG TAB PO SCH (14:21)
--- NOTE | 2018-11-16 15:49 | PN ---
Date/Time of Note Date/Time of Note DATE: 11/16/18 TIME: 15:46 Assessment/Plan VTE Prophylaxis Risk score (from Ns)>0 risk: 10 [place] [facility] [place] contraindicated: other Pharmacological prophylaxis: NA/contraindicated Pharm contraindication: bleeding Lines/Catheters [facility] Central line still needed: Yes Urinary Cath still in place: Yes Reason Cath still needed: urinary retention Assessment/Plan Assessment/Plan 1. Acute hypoxic respiratory failure- improving - weaning FIO2 and tolerating 50% at this time. Still at PEEP 10 and will need to wean over the next couple days - CXR this am noted - CT chest without contrast results noted - Pulmonology on board for vent management and will continue adjusting given findings of ARDS 2. Cardiac arrest s/p ROSC - Cardiology on board and appreciate recommendations - ECHO with preserved EF 3. left fifth toe gangrenous ulcer - ID on board and appreciate consultation. Will continue current antibiotics - Continue local wound care - Podiatry on board and will plan for further amputation in the near future once stable 4. Severe peripheral vascular disease - s/p left femoral endarterectomy, iliofemoral bypass and femoral to posterior tibial bypass done on November 08, 2018 - Vascular surgery consultation appreciated 5. Diabetes Mellitus - A1c noted - Will wean off insulin drip with next steroid decrease 6. Acute kidney injury - nephrology consultation appreciated and most likely due to contrast induced nephropathy as well as cardiorenal - continue monitoring and avoid nephrotoxic agents 7. Essential HTN - holding home medications at this time - BP stable 8. Peripheral neuropathy - cont. gabapentin 9. HLD - On statin 10. Chronic anemia - Stable H&H. Monitor - no need for transfusions at this time 11. Urinary retention - Urology on board and appreciate recommendations. continue schneider care for now 12. Disposition - Continue weaning down FIO2 as tolerated. repeat CXR in the am. >30 minutes of critical care time spent with patient Result Diagram: 11/16/18 0450 11/16/18 0500 Results 24hrs Laboratory Tests Test 11/15/18 16:15 11/15/18 17:01 11/15/18 18:32 11/15/18 19:39 Bedside Glucose 112 110 129 133 Test 11/15/18 21:55 11/15/18 23:01 11/15/18 23:51 11/16/18 01:07 Bedside Glucose 116 123 126 114 Test 11/16/18 01:57 11/16/18 03:01 11/16/18 04:01 11/16/18 04:46 Bedside Glucose 123 103 99 121 Test 11/16/18 04:50 11/16/18 05:00 11/16/18 05:53 11/16/18 07:00 White Blood Count 16.8 H Red Blood Count 3.31 L Hemoglobin 9.8 L Hematocrit 31.0 L Mean Corpuscular 93.7 Volume Mean Corpuscular 29.6 Hemoglobin Mean Corpuscular 31.6 L Hemoglobin Concen t Red Cell 14.2 Distribution Width Platelet Count 283 Mean Platelet 11.0 H Volume Immature 1.100 H Granulocytes % Neutrophils % 87.7 H Lymphocytes % 3.5 L Monocytes % 7.6 Eosinophils % 0.0 Basophils % 0.1 Nucleated Red 0.1 H Blood Cells % Immature 0.180 H Granulocytes # Neutrophils # 14.7 H Lymphocytes # 0.6 L Monocytes # 1.3 H Eosinophils # 0.0 Basophils # 0.0 Nucleated Red 0.0 Blood Cells # Sodium Level 143 Potassium Level 3.9 Chloride Level 105 Carbon Dioxide 30 Level Anion Gap 8 Blood Urea 55 H Nitrogen Creatinine 1.51 H Est Glomerular Filtrat Rate mL/min Glucose Level 118 # Calcium Level 8.0 L Phosphorus Level 3.5 Magnesium Level 2.5 Bedside Glucose 102 Blood Gas Blood arterial Specimen Source Arterial Blood 11/16/2018 8:50:5 Date Drawn 2 AM Arterial Blood pH 7.450 (Temp corrected) Arterial Blood 40.9 pCO2 (Temp correct) Arterial Blood 88.1 pO2 (Temp corrected) Arterial Blood 27.8 H HCO3 Arterial Blood 3.5 H Base Excess Arterial Blood 96.7 Oxygen Saturation Jeison Test ACCEPTAB Arterial Blood Right Radial Gas Puncture Site Arterial 0.5 Blood Carboxyhemo globin Arterial Blood 0.1 Methemoglobin Blood Gas A-a O2 222.4 H Differential Oxyhemoglobin 96.1 Percent Blood Gas 37.0 Temperature Blood Gas 16.0 Respiration Rate Blood Gas Actual 16 Respiration Rate Blood Gas VENT - AC Modality FiO2 50.0 Blood Gas Tidal 550.0 Volume Blood Gas Low 5.0 PEEP Setting Blood Gas DT Notified Whom Blood Gas 11/16/2018 9:16:0 Notified Time 6 AM Test 11/16/18 07:32 11/16/18 08:42 11/16/18 10:05 11/16/18 12:06 Bedside Glucose 138 109 134 92 Test 11/16/18 14:16 Bedside Glucose 131 Subjective 24 Hr Interval Summary Free Text/Dictation Patient is doing well on FIO2 50% with PEEP 10. No acute overnight events. Gets agitated when sedation weaned. Exam/Review of Systems Exam Vitals Vital Signs Date Temp Pulse Resp B/P (MAP) Pulse Ox O2 O2 Flow FiO2 Time Delivery Rate 11/16/18 98.4 81 19 138/67 100 Mechanical 12:00 (90) Ventilator 11/16/18 50 10:54 Intake and Output 11/15/18 11/15/18 11/16/18 1515:00 23:00 07:00 IntakeIntake Total 526.3 ml 516.5 ml 526.5 ml OutputOutput Total 905 ml 1130 ml 845 ml BalanceBalance -378.7 ml -613.5 ml -318.5 ml Exam General: intubated and sedated. no acute distress Eyes: EOMI, pupils reactive to light Neck: Supple, +JVD Respiratory: Coarse breath sounds bilaterally. no wheezing appreciated Cardiovascular: S1, S2, regular rate and rhythm, no obvious murmurs Gastrointestinal: soft, protuberant, nontender, bowel sounds heard. Ext: trace pitting LE edema. no cyanosis or clubbing Skin: No new skin lesions, LLE bandage clean and dry, mild warmth appreciated Results Results 24hrs Laboratory Tests Test 11/15/18 16:15 11/15/18 17:01 11/15/18 18:32 11/15/18 19:39 Bedside Glucose 112 110 129 133 Test 11/15/18 21:55 11/15/18 23:01 11/15/18 23:51 11/16/18 01:07 Bedside Glucose 116 123 126 114 Test 11/16/18 01:57 11/16/18 03:01 11/16/18 04:01 11/16/18 04:46 Bedside Glucose 123 103 99 121 Test 11/16/18 04:50 11/16/18 05:00 11/16/18 05:53 11/16/18 07:00 White Blood Count 16.8 H Red Blood Count 3.31 L Hemoglobin 9.8 L Hematocrit 31.0 L Mean Corpuscular 93.7 Volume Mean Corpuscular 29.6 Hemoglobin Mean Corpuscular 31.6 L Hemoglobin Concen t Red Cell 14.2 Distribution Width Platelet Count 283 Mean Platelet 11.0 H Volume Immature 1.100 H Granulocytes % Neutrophils % 87.7 H Lymphocytes % 3.5 L Monocytes % 7.6 Eosinophils % 0.0 Basophils % 0.1 Nucleated Red 0.1 H Blood Cells % Immature 0.180 H Granulocytes # Neutrophils # 14.7 H Lymphocytes # 0.6 L Monocytes # 1.3 H Eosinophils # 0.0 Basophils # 0.0 Nucleated Red 0.0 Blood Cells # Sodium Level 143 Potassium Level 3.9 Chloride Level 105 Carbon Dioxide 30 Level Anion Gap 8 Blood Urea 55 H Nitrogen Creatinine 1.51 H Est Glomerular Filtrat Rate mL/min Glucose Level 118 # Calcium Level 8.0 L Phosphorus Level 3.5 Magnesium Level 2.5 Bedside Glucose 102 Blood Gas Blood arterial Specimen Source Arterial Blood 11/16/2018 8:50:5 Date Drawn 2 AM Arterial Blood pH 7.450 (Temp corrected) Arterial Blood 40.9 pCO2 (Temp correct) Arterial Blood 88.1 pO2 (Temp corrected) Arterial Blood 27.8 H HCO3 Arterial Blood 3.5 H Base Excess Arterial Blood 96.7 Oxygen Saturation Jeison Test ACCEPTAB Arterial Blood Right Radial Gas Puncture Site Arterial 0.5 Blood Carboxyhemo globin Arterial Blood 0.1 Methemoglobin Blood Gas A-a O2 222.4 H Differential Oxyhemoglobin 96.1 Percent Blood Gas 37.0 Temperature Blood Gas 16.0 Respiration Rate Blood Gas Actual 16 Respiration Rate Blood Gas VENT - AC Modality FiO2 50.0 Blood Gas Tidal 550.0 Volume Blood Gas Low 5.0 PEEP Setting Blood Gas DT Notified Whom Blood Gas 11/16/2018 9:16:0 Notified Time 6 AM Test 11/16/18 07:32 11/16/18 08:42 11/16/18 10:05 11/16/18 12:06 Bedside Glucose 138 109 134 92 Test 11/16/18 14:16 Bedside Glucose 131 Medications Medication Current Medications Ergocalciferol (Drisdol) 50,000 unit Sa PO Last administered on 11/09/18at 09:28; Admin Dose 50,000 UNIT; Start 11/09/18 at 09:00 Miscellaneous Medication (Bystolic) 20 mg DAILY PO Last administered on 11/11/18at 09:03; Admin Dose 20 MG; Start 11/04/18 at 09:00; Status Hold Clonidine (Catapres) 0.1 mg Q6H PRN PO SBP>160; Start 11/04/18 at 09:00 IV Flush (NS 3 ml) 3 ml PER PROTOCOL IV ; Start 11/04/18 at 09:00 Ondansetron HCl (Zofran Inj) 4 mg Q6H PRN IV NAUSEA/VOMITING; Start 11/04/18 at 09:00 Acetaminophen (Tylenol Tab) 650 mg Q6H PRN PO .PAIN 1-3 OR TEMP; Start 11/04/18 at 09:00 Miscellaneous Information 1 ea NOTE XX ; Start 11/04/18 at 09:00 Glucose (Glutose) 15 gm Q15M PRN PO DECREASED GLUCOSE; Start 11/04/18 at 09:00 Glucose (Glutose) 22.5 gm Q15M PRN PO DECREASED GLUCOSE; Start 11/04/18 at 09:00 Dextrose (D50w Syringe) 25 ml Q15M PRN IV DECREASED GLUCOSE; Start 11/04/18 at 09:00 Dextrose (D50w Syringe) 50 ml Q15M PRN IV DECREASED GLUCOSE; Start 11/04/18 at 09:00 Glucagon (Glucagen) 1 mg Q15M PRN IM DECREASED GLUCOSE; Start 11/04/18 at 09:00 Glucose (Glutose) 15 gm Q15M PRN BUCCAL DECREASED GLUCOSE; Start 11/04/18 at 09:00 Miscellaneous Information Patients own medicat... BID@10,16 XX Last administered on 11/10/18at 15:28; Admin Dose 1 EA; Start 11/04/18 at 16:00 Povidone Iodine (Povidone-Iodine) 1 applic BID TOP Last administered on 11/16/18at 09:46; Admin Dose 1 APPLIC; Start 11/05/18 at 21:00 Sodium Hypochlorite (Dakins Diluted ()) 1 applic BID TP Last administered on 11/16/18at 09:12; Admin Dose 1 APPLIC; Start 11/07/18 at 09:00 Hydralazine HCl (Apresoline) 10 mg Q4H PRN IV sbp >160 Last administered on 11/08/18at 08:59; Admin Dose 10 MG; Start 11/08/18 at 09:00 Famotidine (Pepcid) 20 mg DAILY NGT Last administered on 11/16/18 09:12; Admin Dose 20 MG; Start 11/11/18 at 09:30 Fentanyl 100 ml @ 2.5 mls/hr TITRATE IV Last administered on 11/16/18 10:52; Admin Dose 7.5 MLS/HR; Start 11/11/18 at 09:30 Midazolam HCl 50 ml @ 1 mls/hr TITRATE IV Last administered on 11/16/18 11:24; Admin Dose 9 MLS/HR; Start 11/11/18 at 10:30 Albuterol (Ventolin Hfa) 2 puff Q6H RESP THERAPY INH Last administered on 11/16/18 10:23; Admin Dose 2 PUFF; Start 11/11/18 at 20:00 Ipratropium [place] (Atrovent Hfa) 4 puff Q6H RESP THERAPY INH Last admi nistered on 11/16/18 10:23; Admin Dose 4 PUFF; Start 11/11/18 at 20:00 Atropine Sulfate (Atropine) 0.5 mg PRN PRN IV SYMPTOMATIC BRADYCARDIA; Start 11/11/18 at 23:00 Aspirin (Aspirin) 325 mg DAILY GTB Last administered on 11/16/18 09:11; Admin Dose 325 MG; Start 11/13/18 at 09:00 Clopidogrel Bisulfate (plaVIX) 75 mg DAILY GTB Last administered on 11/16/18 09:43; Admin Dose 75 MG; Start 11/13/18 at 09:00 Atorvastatin Calcium (Lipitor) 20 mg QHS GTB Last administered on 11/15/18 21:49; Admin Dose 20 MG; Start 11/13/18 at 21:00 Gabapentin (Neurontin Liquid) 300 mg BID GTB Last administered on 11/16/18 09:46; Admin Dose 300 MG; Start 11/13/18 at 09:00 Hydralazine HCl (Apresoline) 100 mg TID GTB Last administered on 11/16/18 13:30; Admin Dose 100 MG; Start 11/13/18 at 09:00 Metoclopramide HCl (Reglan) 10 mg Q6H IV Last administered on 6/29/19at 09:45; Admin Dose 10 MG; Start 11/13/18 at 10:00 Polyethylene Glycol (Miralax) 17 gm DAILY NGT Last administered on 11/16/18 09:12; Admin Dose 17 GM; Start 11/13/18 at 10:00 Heparin Sodium (Porcine) (Heparin (5000 Units/1ml)) 5,000 unit BID SC Last administered on 11/16/18 09:45; Admin Dose 5,000 UNIT; Start 11/14/18 at 21:00 Senna/Docusate Sodium (Senokot-S) 1 tab BID NGT Last administered on 11/16/18 09:12; Admin Dose 1 TAB; Start 11/14/18 at 21:00 Bisacodyl (Dulcolax Supp) 10 mg DAILY PRN [place] CONSTIPATION Last administered on 11/14/18at 16:43; Admin Dose 10 MG; Start 11/14/18 at 16:30 Insulin Human Regular 100 unit/ Sodium Chloride 100 ml @ 0 mls/hr PER PROTOCOL IV Last administered on 11/15/18at 21:59; Admin Dose 5 MLS/HR; Start 11/15/18 at 06:30 Miscellaneous Information (* Miscellaneous Pharmacy Order) Treatment of Hypoglycemia: 1.BG 51... Per protocol XX ; Start 11/15/18 at 06:30 Dextrose (D50w Syringe) 25 ml Q15M PRN IV .DECREASED GLUCOSE; Start 11/15/18 at 06:30 Dextrose (D50w Syringe) 50 ml Q15M PRN IV .DECREASED GLUCOSE; Start 11/15/18 at 06:30 Diagnostic Test (Pha) (Accu-Chek) 1 ea Q1H XX Last administered on 11/16/18at 07:32; Admin Dose 1 EA; Start 11/15/18 at 08:00 Methylprednisolone Sodium Succinate (Solu-Medrol) 40 mg Q12 IV Last administered on 11/16/18 09:12; Admin Dose 40 MG; Start 11/15/18 at 11:30 Meropenem/Sodium Chloride 50 ml @ 100 mls/hr Q12 IVPB Last administered on 11/16/18 09:12; Admin Dose 100 MLS/HR; Start 11/15/18 at 14:30 Levofloxacin (Levaquin) 250 mg DAILY@06 PO ; Start 11/17/18 at 06:00 IV Flush (NS 10 ml) 10 ml PRN PRN IV FLUSH LINE; Start 11/15/18 at 15:30 Furosemide (Lasix) 40 mg DAILY@0600 IV ; Start 11/17/18 at 06:00 Fluconazole (Diflucan) 100 mg DAILY PO Last administered on 11/16/18at 14:21; Admin Dose 100 MG; Start 11/16/18 at 14:00 KARL WOOD MD Nov 16, 2018 15:49
[2018-11-16] MEDS: ATORVASTATIN 20 MG TAB GTB SCH (21:14)
[2018-11-16] MEDS: INSULIN HUMAN REGULAR 100 UNIT in SOD CHLORIDE 0.9% 99 ML IV SCH (23:16)
[2018-11-17] VITALS (49 sets, daily range): BP systolic 95–163; BP diastolic 55–122; PULSE 68–88; RESP 12–40
[2018-11-17] MEDS: ACCU-CHEK XX SCH ×24 (00:01→23:00)
[2018-11-17] MEDS: MIDAZOLAM (DRIP) 50 mg/50 mL 50 ML IV SCH ×3 (00:59→18:13)
[2018-11-17] MEDS: FENTAnyl (DRIP) 1000 mcg/100mL 100 ML IV SCH ×2 (01:02→13:37)
[2018-11-17] MEDS: ALBUTEROL HFA 8 GM INHALER INH SCH ×4 (02:07→19:26)
[2018-11-17] MEDS: IPRATROPIUM (HFA) 12.9 GM INHALER INH SCH ×4 (02:07→19:26)
[2018-11-17] MEDS: METOCLOPRAMIDE 10 MG INJ IV SCH ×4 (03:51→22:28)
[2018-11-17] MEDS: FUROSEMIDE 40 MG INJ IV SCH (05:56)
[2018-11-17] MEDS ORDERED: LEVOFLOXACIN 250 MG TAB PO SCH (06:00)
[2018-11-17] MEDS ORDERED: METOLAZONE 2.5 MG TAB PO ONE (07:30)
[2018-11-17] MEDS: CLOPIDOGREL 75 MG TAB GTB SCH (08:53)
[2018-11-17] MEDS: ASPIRIN 325 MG TAB GTB SCH (08:53)
[2018-11-17] MEDS: FAMOTIDINE 20 MG TAB NGT SCH (08:54)
[2018-11-17] MEDS: MEROPENEM 500MG/50 ML (PMX) 50 ML IVPB SCH ×2 (08:54→20:25)
[2018-11-17] MEDS: FLUCONAZOLE 100 MG TAB PO SCH (08:54)
[2018-11-17] MEDS: METHYLPREDNISOLONE 40 MG INJ IV SCH ×2 (08:54→20:25)
[2018-11-17] MEDS: DAKINS 0.0125%(1/40) 473 ML SOLUTION TP SCH ×2 (08:55→20:26)
[2018-11-17] MEDS: POVIDONE IODINE 10% 28.4 GM OINT TOP SCH ×2 (08:55→20:26)
[2018-11-17] MEDS ORDERED: POLYETHYLENE GLYCOL 17 GM PACKET NGT PRN (09:00)
[2018-11-17] MEDS ORDERED: SENNA/DOCUSATE NA (8.6MG/50MG) TAB NGT PRN (09:00)
[2018-11-17] MEDS: GABAPENTIN (50 MG/ML PO SYG) GTB SCH ×2 (09:01→20:33)
[2018-11-17] MEDS: HEPARIN 5,000 UNIT/1 ML VIAL SC SCH ×2 (09:02→20:30)
--- NOTE | 2018-11-17 09:56 | PN ---
Date/Time of Note Date/Time of Note DATE: 11/17/18 TIME: 09:56 Assessment/Plan VTE Prophylaxis Risk score (from Ns)>0 risk: 10 SCD applied (from Ns): No SCD contraindicated: other Pharmacological prophylaxis: heparin Lines/Catheters IV Catheter Type (from Nrs): PICC Line Central line still needed: Yes Urinary Cath still in place: Yes Reason Cath still needed: urinary retention Assessment/Plan Assessment/Plan 1. Acute hypoxic respiratory failure- improving - weaning FIO2 and tolerating 40% at this time. PEEP decreased to 5 this am and will start CPAP trial tomorrow - CXR this am noted - CT chest without contrast results noted - Pulmonology on board for vent management 2. Cardiac arrest s/p ROSC - Cardiology on board and appreciate recommendations - ECHO with preserved EF 3. left fifth toe gangrenous ulcer - ID on board and appreciate consultation. Will continue current antibiotics - Continue local wound care - Podiatry on board and will plan for further amputation in the near future once stable 4. Severe peripheral vascular disease - s/p left femoral endarterectomy, iliofemoral bypass and femoral to posterior tibial bypass done on November 08, 2018 - Vascular surgery consultation appreciated 5. Diabetes Mellitus - A1c noted - Will wean off insulin drip this afternoon if able 6. Acute kidney injury- improving - nephrology consultation appreciated and most likely due to contrast induced ne phropathy as well as cardiorenal. managing diuretics - continue monitoring and avoid nephrotoxic agents 7. Essential HTN - holding home medications at this time - BP stable 8. Peripheral neuropathy - cont. gabapentin 9. HLD - On statin 10. Chronic anemia - Stable H&H. Monitor - no need for transfusions at this time 11. Urinary retention - Urology on board and appreciate recommendations. continue schneider care for now 12. Disposition - Plans for CPAP trial in the am. Continue all current care >30 minutes of critical care time spent with patient Result Diagram: 11/17/18 0500 11/17/18 0500 Results 24hrs Laboratory Tests Test 11/16/18 10:05 11/16/18 12:06 11/16/18 14:16 11/16/18 16:16 Bedside Glucose 134 92 131 152 Test 11/16/18 18:09 11/16/18 19:16 11/16/18 19:56 11/16/18 21:10 Bedside Glucose 101 80 73 130 Test 11/16/18 22:10 11/16/18 23:09 11/16/18 23:56 11/17/18 00:55 Bedside Glucose 131 102 120 138 Test 11/17/18 02:02 11/17/18 03:51 11/17/18 05:00 11/17/18 05:58 Bedside Glucose 134 144 136 White Blood Count 14.9 H Red Blood Count 3.27 L Hemoglobin 9.8 L Hematocrit 30.8 L Mean Corpuscular 94.2 Volume Mean Corpuscular 30.0 Hemoglobin Mean Corpuscular 31.8 L Hemoglobin Concen t Red Cell 14.2 Distribution Width Platelet Count 279 Mean Platelet 10.9 H Volume Immature 1.600 H Granulocytes % Neutrophils % 88.5 H Lymphocytes % 3.9 L Monocytes % 5.9 Eosinophils % 0.0 Basophils % 0.1 Nucleated Red 0.0 Blood Cells % Immature 0.240 H Granulocytes # Neutrophils # 13.2 H Lymphocytes # 0.6 L Monocytes # 0.9 Eosinophils # 0.0 Basophils # 0.0 Nucleated Red 0.0 Blood Cells # Sodium Level 144 Potassium Level 4.1 Chloride Level 104 Carbon Dioxide 33 H Level Anion Gap 7 Blood Urea 56 H Nitrogen Creatinine 1.27 H Est Glomerular Filtrat Rate mL/min Glucose Level 122 Calcium Level 8.1 L Phosphorus Level 3.8 Magnesium Level 2.7 H Test 11/17/18 07:00 11/17/18 08:32 Blood Gas Blood arterial Specimen Source Arterial Blood 11/17/2018 8:32:2 Date Drawn 3 AM Arterial Blood pH 7.485 H (Temp corrected) Arterial Blood 42.1 pCO2 (Temp correct) Arterial Blood 104.7 H pO2 (Temp corrected) Arterial Blood 31.0 H HCO3 Arterial Blood 6.9 H Base Excess Arterial Blood 97.9 Oxygen Saturation Jeison Test ACCEPTAB Arterial Blood Right Radial Gas Puncture Site Arterial 0.8 Blood Carboxyhemo globin Arterial Blood 0.1 Methemoglobin Blood Gas A-a O2 132.1 H Differential Oxyhemoglobin 97.0 Percent Blood Gas 37.0 Temperature Blood Gas 16.0 Respiration Rate Blood Gas Actual 29 Respiration Rate Blood Gas VENT - AC Modality FiO2 40.0 Blood Gas Tidal 550.0 Volume Blood Gas Low 10.0 PEEP Setting Blood Gas DT Notified Whom Blood Gas 11/17/2018 8:54:1 Notified Time 1 AM Bedside Glucose 74 Subjective 24 Hr Interval Summary Free Text/Dictation Patient answering simple questions this am. No acute distress noted. Weaning FIO2 to 40% and PEEP decreased. Exam/Review of Systems Exam Vitals Vital Signs Date Temp Pulse Resp B/P (MAP) Pulse Ox O2 O2 Flow FiO2 Time Delivery Rate 11/17/18 68 08:00 11/17/18 147/68 Mechanical 06:00 (94) Ventilator 11/17/18 16 98 40 05:10 11/17/18 97.6 04:00 Intake and Output 11/16/18 11/16/18 11/17/18 1515:00 23:00 07:00 IntakeIntake Total 476.0 ml 503.0 ml 483.5 ml OutputOutput Total 1495 ml 1115 ml 570 ml BalanceBalance -1019.0 ml -612.0 ml -86.5 ml Exam General: intubated. no acute distress. answering simple questions Neck: Supple Respiratory: Coarse breath sounds bilaterally. no wheezing appreciated Cardiovascular: S1, S2, regular rate and rhythm, no obvious murmurs Gastrointestinal: soft, protuberant, nontender, bowel sounds heard. Ext: trace pitting LE edema. no cyanosis or clubbing Skin: No new skin lesions, LLE bandage clean and dry, mild warmth appreciated Results Results 24hrs Laboratory Tests Test 11/16/18 10:05 11/16/18 12:06 11/16/18 14:16 11/16/18 16:16 Bedside Glucose 134 92 131 152 Test 11/16/18 18:09 11/16/18 19:16 11/16/18 19:56 11/16/18 21:10 Bedside Glucose 101 80 73 130 Test 11/16/18 22:10 11/16/18 23:09 11/16/18 23:56 11/17/18 00:55 Bedside Glucose 131 102 120 138 Test 11/17/18 02:02 11/17/18 03:51 11/17/18 05:00 11/17/18 05:58 Bedside Glucose 134 144 136 White Blood Count 14.9 H Red Blood Count 3.27 L Hemoglobin 9.8 L Hematocrit 30.8 L Mean Corpuscular 94.2 Volume Mean Corpuscular 30.0 Hemoglobin Mean Corpuscular 31.8 L Hemoglobin Concen t Red Cell 14.2 Distribution Width Platelet Count 279 Mean Platelet 10.9 H Volume Immature 1.600 H Granulocytes % Neutrophils % 88.5 H Lymphocytes % 3.9 L Monocytes % 5.9 Eosinophils % 0.0 Basophils % 0.1 Nucleated Red 0.0 Blood Cells % Immature 0.240 H Granulocytes # Neutrophils # 13.2 H Lymphocytes # 0.6 L Monocytes # 0.9 Eosinophils # 0.0 Basophils # 0.0 Nucleated Red 0.0 Blood Cells # Sodium Level 144 Potassium Level 4.1 Chloride Level 104 Carbon Dioxide 33 H Level Anion Gap 7 Blood Urea 56 H Nitrogen Creatinine 1.27 H Est Glomerular Filtrat Rate mL/min Glucose Level 122 Calcium Level 8.1 L Phosphorus Level 3.8 Magnesium Level 2.7 H Test 11/17/18 07:00 11/17/18 08:32 Blood Gas Blood arterial Specimen Source Arterial Blood 11/17/2018 8:32:2 Date Drawn 3 AM Arterial Blood pH 7.485 H (Temp corrected) Arterial Blood 42.1 pCO2 (Temp correct) Arterial Blood 104.7 H pO2 (Temp corrected) Arterial Blood 31.0 H HCO3 Arterial Blood 6.9 H Base Excess Arterial Blood 97.9 Oxygen Saturation Jeison Test ACCEPTAB Arterial Blood Right Radial Gas Puncture Site Arterial 0.8 Blood Carboxyhemo globin Arterial Blood 0.1 Methemoglobin Blood Gas A-a O2 132.1 H Differential Oxyhemoglobin 97.0 Percent Blood Gas 37.0 Temperature Blood Gas 16.0 Respiration Rate Blood Gas Actual 29 Respiration Rate Blood Gas VENT - AC Modality FiO2 40.0 Blood Gas Tidal 550.0 Volume Blood Gas Low 10.0 PEEP Setting Blood Gas DT Notified Whom Blood Gas 11/17/2018 8:54:1 Notified Time 1 AM Bedside Glucose 74 Medications Medication Current Medications Ergocalciferol (Drisdol) 50,000 unit Sa PO Last administered on 11/09/18at 09:28; Admin Dose 50,000 UNIT; Start 11/09/18 at 09:00 Miscellaneous Medication (Bystolic) 20 mg DAILY PO Last administered on 11/11/18at 09:03; Admin Dose 20 MG; Start 11/04/18 at 09:00; Status Hold Clonidine (Catapres) 0.1 mg Q6H PRN PO SBP>160; Start 11/04/18 at 09:00 IV Flush (NS 3 ml) 3 ml PER PROTOCOL IV ; Start 11/04/18 at 09:00 Ondansetron HCl (Zofran Inj) 4 mg Q6H PRN IV NAUSEA/VOMITING; Start 11/04/18 at 09:00 Acetaminophen (Tylenol Tab) 650 mg Q6H PRN PO .PAIN 1-3 OR TEMP; Start 11/04/18 at 09:00 Miscellaneous Information 1 ea NOTE XX ; Start 11/04/18 at 09:00 Glucose (Glutose) 15 gm Q15M PRN PO DECREASED GLUCOSE; Start 11/04/18 at 09:00 Glucose (Glutose) 22.5 gm Q15M PRN PO DECREASED GLUCOSE; Start 11/04/18 at 09:00 Dextrose (D50w Syringe) 25 ml Q15M PRN IV DECREASED GLUCOSE; Start 11/04/18 at 09:00 Dextrose (D50w Syringe) 50 ml Q15M PRN IV DECREASED GLUCOSE; Start 11/04/18 at 09:00 Glucagon (Glucagen) 1 mg Q15M PRN IM DECREASED GLUCOSE; Start 11/04/18 at 09:00 Glucose (Glutose) 15 gm Q15M PRN BUCCAL DECREASED GLUCOSE; Start 11/04/18 at 09:00 Miscellaneous Information Patients own medicat... BID@10,16 XX Last administered on 11/10/18at 15:28; Admin Dose 1 EA; Start 11/04/18 at 16:00 Povidone Iodine (Povidone-Iodine) 1 applic BID TOP Last administered on 11/17/18at 08:55; Admin Dose 1 APPLIC; Start 11/05/18 at 21:00 Sodium Hypochlorite (Dakins Diluted ()) 1 applic BID TP Last administered on 11/17/18at 08:55; Admin Dose 1 APPLIC; Start 11/07/18 at 09:00 Hydralazine HCl (Apresoline) 10 mg Q4H PRN IV sbp >160 Last administered on 11/08/18at 08:59; Admin Dose 10 MG; Start 11/08/18 at 09:00 Famotidine (Pepcid) 20 mg DAILY NGT Last administered on 11/17/18at 08:54; Admin Dose 20 MG; Start 11/11/18 at 09:30 Fentanyl 100 ml @ 2.5 mls/hr TITRATE IV Last administered on 11/17/18 01:02; Admin Dose 7.5 MLS/HR; Start 11/11/18 at 09:30 Midazolam HCl 50 ml @ 1 mls/hr TITRATE IV Last administered on 11/17/18 00:59; Admin Dose 9 MLS/HR; Start 11/11/18 at 10:30 Albuterol (Ventolin Hfa) 2 puff Q6H RESP THERAPY INH Last administered on 11/17/18 08:39; Admin Dose 2 PUFF; Start 11/11/18 at 20:00 Ipratropium [place] (Atrovent Hfa) 4 puff Q6H RESP THERAPY INH Last administered on 11/17/18 08:39; Admin Dose 4 PUFF; Start 11/11/18 at 20:00 Atropine Sulfate (Atropine) 0.5 mg PRN PRN IV SYMPTOMATIC BRADYCARDIA; Start 11/11/18 at 23:00 Aspirin (Aspirin) 325 mg DAILY GTB Last administered on 11/17/18 08:53; Admin Dose 325 MG; Start 11/13/18 at 09:00 Clopidogrel Bisulfate (plaVIX) 75 mg DAILY GTB Last administered on 11/17/18 08:53; Admin Dose 75 MG; Start 11/13/18 at 09:00 Atorvastatin Calcium (Lipitor) 20 mg QHS GTB Last administered on 11/16/18 21:14; Admin Dose 20 MG; Start 11/13/18 at 21:00 Gabapentin (Neurontin Liquid) 300 mg BID GTB Last administered on 11/17/18 09:01; Admin Dose 300 MG; Start 11/13/18 at 09:00 Hydralazine HCl (Apresoline) 100 mg TID GTB Last administered on 11/17/18 08 :53; Admin Dose 100 MG; Start 11/13/18 at 09:00 Metoclopramide HCl (Reglan) 10 mg Q6H IV Last administered on 11/17/18 09:05; Admin Dose 10 MG; Start 11/13/18 at 10:00 Heparin Sodium (Porcine) (Heparin (5000 Units/1ml)) 5,000 unit BID SC Last administered on 11/17/18 09:02; Admin Dose 5,000 UNIT; Start 11/14/18 at 21:00 Bisacodyl (Dulcolax Supp) 10 mg DAILY PRN [place] CONSTIPATION Last administered on 11/14/18 16:43; Admin Dose 10 MG; Start 11/14/18 at 16:30 Insulin Human Regular 100 unit/ Sodium Chloride 100 ml @ 0 mls/hr PER PROTOCOL IV Last administered on 11/16/18 23:16; Admin Dose 1.5 MLS/HR; Start 11/15/18 at 06:30 Miscellaneous Information (* Miscellaneous Pharmacy Order) Treatment of Hypoglycemia: 1.BG 51... Per protocol XX ; Start 11/15/18 at 06:30 Dextrose (D50w Syringe) 25 ml Q15M PRN IV .DECREASED GLUCOSE; Start 11/15/18 at 06:30 Dextrose (D50w Syringe) 50 ml Q15M PRN IV .DECREASED GLUCOSE; Start 11/15/18 at 06:30 Diagnostic Test (Pha) (Accu-Chek) 1 ea Q1H XX Last administered on 11/17/18 05:58; Admin Dose 1 EA; Start 11/15/18 at 08:00 Methylprednisolone Sodium Succinate (Solu-Medrol) 40 mg Q12 IV Last administered on 11/17/18 08:54; Admin Dose 40 MG; Start 11/15/18 at 11:30 Meropenem/Sodium Chloride 50 ml @ 100 mls/hr Q12 IVPB Last administered on 11/17/18 08:54; Admin Dose 100 MLS/HR; Start 11/15/18 at 14:30 Levofloxacin (Levaquin) 250 mg DAILY@06 PO Last administered on 11/17/18 05:56; Admin Dose 250 MG; Start 11/17/18 at 06:00 IV Flush (NS 10 ml) 10 ml PRN PRN IV FLUSH LINE; Start 11/15/18 at 15:30 Furosemide (Lasix) 40 mg DAILY@0600 IV Last administered on 11/17/18 05:56; Admin Dose 40 MG; Start 11/17/18 at 06:00 Fluconazole (Diflucan) 100 mg DAILY PO Last administered on 11/17/18 08:54; Admin Dose 100 MG; Start 11/16/18 at 14:00 Polyethylene Glycol (Miralax) 17 gm DAILY PRN NGT constipation; Start 11/17/18 at 09:00 Senna/Docusate Sodium (Senokot-S) 1 tab BID PRN NGT constipation; Start 11/17/18 at 09:00 KARL WOOD MD Nov 17, 2018 09:56
--- NOTE | 2018-11-17 10:00 | PN ---
DATE: 11/17/2018 SUBJECTIVE: The patient remains critically on full ventilatory support. Urinary output has been benja quate. OBJECTIVE: VITAL SIGNS: Blood pressure is 147/68, respirations 16, pulse 70, temperature 97.6. HEENT: Head is normocephalic. NECK: Supple. HEART: Regular rate. LUNGS: Show diminished breath sounds at the base. ABDOMEN: Soft, nontender to palpation without rebound or guarding. EXTREMITIES: Negative for clubbing, cyanosis. Positive edema. DERMATOLOGIC: No rashes. MUSCULOSKELETAL: No joint effusion. NEUROLOGIC: No change in exam. MEDICATIONS: Reviewed. LABORATORY DATA: Reviewed. IMAGING STUDIES: Reviewed. ASSESSMENT AND PLAN: 1. Nonoliguric acute kidney injury. Etiology is secondary to hemodynamics, tubular injury. Renal f unction is slowly improving. Continue current treatment plan, supportive care, renally dose all medi cations, monitor closely on diuretic therapy. 2. Volume overload. Etiology is secondary to acute kidney injury, diastolic heart failure. Continu e current Lasix regimen. Continue metolazone. 3. Anemia. Continue to monitor hemoglobin and hematocrit levels. 4. Mineral bone disorder. Monitor calcium and phosphorus levels. 5. Ventilator-dependent respiratory failure. Vent settings and ABG was reviewed. Continue to monit or. 6. Elevated troponin, non-ST elevation myocardial infarction type 2. Continue medical management. 7. Arrhythmia. Continue current treatment plan. Continue to monitor. 8. Peripheral vascular disease status post ileofemoral bypass. 9. Hypertension. 10. Dyslipidemia. 11. Acute encephalopathy. Etiology is toxic metabolic. 12. Status post cardiac arrest. Dictated By: JEAN CLAUDE RUFFIN/BOBO Conf#: [id number] DID#: [id number] CC: TOMASA SCOTT; JAYLEEN BUNN MD; KARL WOOD MD;*EndCC*
--- NOTE | 2018-11-17 10:30 | CONS ---
Consult Date/Type/Reason Admit Date/Time Nov 04, 2018 at 07:34 Initial Consult Date 11/11/18 Type of Consult Pulmonary Requesting Provider: KARL WOOD MD Date/Time of Note DATE: 11/17/18 TIME: 10:29 Subjective Continues to improve FiO2 decreased to 40% today. Chest x-ray shows ongoing radiographic improvement. Objective Vital Signs Date Temp Pulse Resp B/P (MAP) Pulse Ox O2 O2 Flow FiO2 Time Delivery Rate 11/17/18 68 08:00 11/17/18 147/68 Mechanical 06:00 (94) Ventilator 11/17/18 16 98 40 05:10 11/17/18 97.6 04:00 Intake and Output 11/16/18 11/16/18 11/17/18 1515:00 23:00 07:00 IntakeIntake Total 476.0 ml 503.0 ml 483.5 ml OutputOutput Total 1495 ml 1115 ml 570 ml BalanceBalance -1019.0 ml -612.0 ml -86.5 ml Exam GENERAL: Well-nourished, well-developed gentleman, orally intubated on mechanical ventilation, appears comfortable at rest, no acute distress. VITAL SIGNS: NECK: Supple. No JVD or lymphadenopathy. CARDIAC: S1, S2, no added sounds or murmurs. CHEST: Diminished air entry bilaterally. ABDOMEN: Soft, nontender. No guarding or rebound. EXTREMITIES: No cyanosis, clubbing, 1+ edema. NEUROLOGIC: Generalized weakness. Vent Setting Ventilator Support Mode: AC Fraction of Inspired Oxygen pe: 40 Positive End Expiratory Pressu: 10.0 Results/Medications Result Diagram: 11/17/18 0500 11/17/18 0500 Results 24 hrs Laboratory Tests Test 11/16/18 12:06 11/16/18 14:16 11/16/18 16:16 11/16/18 18:09 Bedside Glucose 92 131 152 101 Test 11/16/18 19:16 11/16/18 19:56 11/16/18 21:10 11/16/18 22:10 Bedside Glucose 80 73 130 131 Test 11/16/18 23:09 11/16/18 23:56 11/17/18 00:55 11/17/18 02:02 Bedside Glucose 102 120 138 134 Test 11/17/18 03:51 11/17/18 05:00 11/17/18 05:58 11/17/18 07:00 Bedside Glucose 144 136 White Blood Count 14.9 H Red Blood Count 3.27 L Hemoglobin 9.8 L Hematocrit 30.8 L Mean Corpuscular 94.2 Volume Mean Corpuscular 30.0 Hemoglobin Mean Corpuscular 31.8 L Hemoglobin Concen t Red Cell 14.2 Distribution Width Platelet Count 279 Mean Platelet 10.9 H Volume Immature 1.600 H Granulocytes % Neutrophils % 88.5 H Lymphocytes % 3.9 L Monocytes % 5.9 Eosinophils % 0.0 Basophils % 0.1 Nucleated Red 0.0 Blood Cells % Immature 0.240 H Granulocytes # Neutrophils # 13.2 H Lymphocytes # 0.6 L Monocytes # 0.9 Eosinophils # 0.0 Basophils # 0.0 Nucleated Red 0.0 Blood Cells # Sodium Level 144 Potassium Level 4.1 Chloride Level 104 Carbon Dioxide 33 H Level Anion Gap 7 Blood Urea 56 H Nitrogen Creatinine 1.27 H Est Glomerular Filtrat Rate mL/min Glucose Level 122 Calcium Level 8.1 L Phosphorus Level 3.8 Magnesium Level 2.7 H Blood Gas Blood arterial Specimen Source Arterial Blood 11/17/2018 8:32:2 Date Drawn 3 AM Arterial Blood pH 7.485 H (Temp corrected) Arterial Blood 42.1 pCO2 (Temp correct) Arterial Blood 104.7 H pO2 (Temp corrected) Arterial Blood 31.0 H HCO3 Arterial Blood 6.9 H Base Excess Arterial Blood 97.9 Oxygen Saturation Jeison Test ACCEPTAB Arterial Blood Right Radial Gas Puncture Site Arterial 0.8 Blood Carboxyhemo globin Arterial Blood 0.1 Methemoglobin Blood Gas A-a O2 132.1 H Differential Oxyhemoglobin 97.0 Percent Blood Gas 37.0 Temperature Blood Gas 16.0 Respiration Rate Blood Gas Actual 29 Respiration Rate Blood Gas VENT - AC Modality FiO2 40.0 Blood Gas Tidal 550.0 Volume Blood Gas Low 10.0 PEEP Setting Blood Gas DT Notified Whom Blood Gas 11/17/2018 8:54:1 Notified Time 1 AM Test 11/17/18 08:32 Bedside Glucose 74 Medications Current Medications Ergocalciferol (Drisdol) 50,000 unit Sa PO Last administered on 11/09/18at 09:28; Admin Dose 50,000 UNIT; Start 11/09/18 at 09:00 Miscellaneous Medication (Bystolic) 20 mg DAILY PO Last administered on 11/11/18at 09:03; Admin Dose 20 MG; Start 11/04/18 at 09:00; Status Hold Clonidine (Catapres) 0.1 mg Q6H PRN PO SBP>160; Start 11/04/18 at 09:00 IV Flush (NS 3 ml) 3 ml PER PROTOCOL IV ; Start 11/04/18 at 09:00 Ondansetron HCl (Zofran Inj) 4 mg Q6H PRN IV NAUSEA/VOMITING; Start 11/04/18 at 09:00 Acetaminophen (Tylenol Tab) 650 mg Q6H PRN PO .PAIN 1-3 OR TEMP; Start 11/04/18 at 09:00 Miscellaneous Information 1 ea NOTE XX ; Start 11/04/18 at 09:00 Glucose (Glutose) 15 gm Q15M PRN PO DECREASED GLUCOSE; Start 11/04/18 at 09:00 Glucose (Glutose) 22.5 gm Q15M PRN PO DECREASED GLUCOSE; Start 11/04/18 at 09:00 Dextrose (D50w Syringe) 25 ml Q15M PRN IV DECREASED GLUCOSE; Start 11/04/18 at 09:00 Dextrose (D50w Syringe) 50 ml Q15M PRN IV DECREASED GLUCOSE; Start 11/04/18 at 09:00 Glucagon (Glucagen) 1 mg Q15M PRN IM DECREASED GLUCOSE; Start 11/04/18 at 09:00 Glucose (Glutose) 15 gm Q15M PRN BUCCAL DECREASED GLUCOSE; Start 11/04/18 at 09:00 Miscellaneous Information Patients own medicat... BID@10,16 XX Last administered on 11/10/18at 15:28; Admin Dose 1 EA; Start 11/04/18 at 16:00 Povidone Iodine (Povidone-Iodine) 1 applic BID TOP Last administered on 11/17/18at 08:55; Admin Dose 1 APPLIC; Start 11/05/18 at 21:00 Sodium Hypochlorite (Dakins Diluted ()) 1 applic BID TP Last administered on 11/17/18at 08:55; Admin Dose 1 APPLIC; Start 11/07/18 at 09:00 Hydralazine HCl (Apresoline) 10 mg Q4H PRN IV sbp >160 Last administered on 11/08/18at 08:59; Admin Dose 10 MG; Start 11/08/18 at 09:00 Famotidine (Pepcid) 20 mg DAILY NGT Last administered on 11/17/18 08:54; Admin Dose 20 MG; Start 11/11/18 at 09:30 Fentanyl 100 ml @ 2.5 mls/hr TITRATE IV Last administered on 11/17/18 01:02; Admin Dose 7.5 MLS/HR; Start 11/11/18 at 09:30 Midazolam HCl 50 ml @ 1 mls/hr TITRATE IV Last administered on 11/17/18 00:59; Admin Dose 9 MLS/HR; Start 11/11/18 at 10:30 Albuterol (Ventolin Hfa) 2 puff Q6H RESP THERAPY INH Last administered on 11/17/18 08:39; Admin Dose 2 PUFF; Start 11/11/18 at 20:00 Ipratropium [place] (Atrovent Hfa) 4 puff Q6H RESP THERAPY INH Last administered on 11/17/18 08:39; Admin Dose 4 PUFF; Start 11/11/18 at 20:00 Atropine Sulfate (Atropine) 0.5 mg PRN PRN IV SYMPTOMATIC BRADYCARDIA; Start 11/11/18 at 23:00 Aspirin (Aspirin) 325 mg DAILY GTB Last administered on 11/17/18 08:53; Admin Dose 325 MG; Start 11/13/18 at 09:00 Clopidogrel Bisulfate (plaVIX) 75 mg DAILY GTB Last administered on 11/17/18 08:53; Admin Dose 75 MG; Start 11/13/18 at 09:00 Atorvastatin Calcium (Lipitor) 20 mg QHS GTB Last administered on 11/16/18 21:14; Admin Dose 20 MG; Start 11/13/18 at 21:00 Gabapentin (Neurontin Liquid) 300 mg BID GTB Last administered on 11/17/18 09:01; Admin Dose 300 MG; Start 11/13/18 at 09:00 Hydralazine HCl (Apresoline) 100 mg TID GTB Last administered on 11/17/18 08:53; Admin Dose 100 MG; Start 11/13/18 at 09:00 Metoclopramide HCl (Reglan) 10 mg Q6H IV Last administered on 6/30/19at 09:05; Admin Dose 10 MG; Start 11/13/18 at 10:00 Heparin Sodium (Porcine) (Heparin (5000 Units/1ml)) 5,000 unit BID SC Last administered on 11/17/18at 09:02; Admin Dose 5,000 UNIT; Start 11/14/18 at 21:00 Bisacodyl (Dulcolax Supp) 10 mg DAILY PRN [place] CONSTIPATION Last administered on 11/14/18at 16:43; Admin Dose 10 MG; Start 11/14/18 at 16:30 Insulin Human Regular 100 unit/ Sodium Chloride 100 ml @ 0 mls/hr PER PROTOCOL IV Last administered on 11/16/18at 23:16; Admin Dose 1.5 MLS/HR; Start 11/15/18 at 06:30 Miscellaneous Information (* Miscellaneous Pharmacy Order) Treatment of Hypoglycemia: 1.BG 51... Per protocol XX ; Start 11/15/18 at 06:30 Dextrose (D50w Syringe) 25 ml Q15M PRN IV .DECREASED GLUCOSE; Start 11/15/18 at 06:30 Dextrose (D50w Syringe) 50 ml Q15M PRN IV .DECREASED GLUCOSE; Start 11/15/18 at 06:30 Diagnostic Test (Pha) (Accu-Chek) 1 ea Q1H XX Last administered on 11/17/18at 05:58; Admin Dose 1 EA; Start 11/15/18 at 08:00 Methylprednisolone Sodium Succinate (Solu-Medrol) 40 mg Q12 IV Last administered on 11/17/18at 08:54; Admin Dose 40 MG; Start 11/15/18 at 11:30 Meropenem/Sodium Chloride 50 ml @ 100 mls/hr Q12 IVPB Last administered on 11/17/18at 08:54; Admin Dose 100 MLS/HR; Start 11/15/18 at 14:30 Levofloxacin (Levaquin) 250 mg DAILY@06 PO Last administered on 11/17/18at 05:56; Admin Dose 250 MG; Start 11/17/18 at 06:00 IV Flush (NS 10 ml) 10 ml PRN PRN IV FLUSH LINE; Start 11/15/18 at 15:30 Furosemide (Lasix) 40 mg DAILY@0600 IV Last administered on 11/17/18at 05:56; Admin Dose 40 MG; Start 11/17/18 at 06:00 Fluconazole (Diflucan) 100 mg DAILY PO Last administered on 11/17/18at 08:54; Admin Dose 100 MG; Start 11/16/18 at 14:00 Polyethylene Glycol (Miralax) 17 gm DAILY PRN NGT constipation; Start 11/17/18 at 09:00 Senna/Docusate Sodium (Senokot-S) 1 tab BID PRN NGT constipation; Start 11/17/18 at 09:00 Assessment/Plan Hospital Course (Demo Recall) IMPRESSION 1. Acute hypoxemic respiratory failure likely following cardiopulmonary arrest. Chest x-ray appears to be consistent with ARDS. Clinical improvement. 2. Recent new onset bradycardia.Likely secondary to b sharon. 3. History of peripheral vascular disease. 4. History of poorly controlled diabetes. 5. Anemia, no GIB 6. Leukocytosis likely secondary to steroids. PLAN: 1. Diuretics as tolerated. 2. Continue mechanical ventilation. Increase PEEP and tidal volume adjusted.Anticipate weaning trials tomorrow. 3. Insulin drip for hyperglycemia decrease IV Solu-Medrol. 4. Continue fentanyl and Versed. 5. Renal recommendations appreciated. 6. Deep vein thrombosis and gastrointestinal prophylaxis. 7. Vascular recommendations regarding postop wound care, also appreciate podiatry recommendations. Critical care time 40 minutes. EDWIGE CARRANZA MD, [facility] Nov 17, 2018 10:30
--- NOTE | 2018-11-17 13:17 | CONS ---
Consult Date/Type/Reason Admit Date/Time Nov 04, 2018 at 07:34 Initial Consult Date 11/11/18 Type of Consultation: Urology Requesting Provider: KARL WOOD MD Date/Time of Note DATE: 11/17/18 TIME: 13:16 Subjective NO acute events - pt comfortable - rate better controlled - improved BP. ROS: No fever, no chills, no nausea, no vomiting, no diarrhea/constipation - per nurse Objective Vitals Vital Signs Date Temp Pulse Resp B/P (MAP) Pulse Ox O2 O2 Flow FiO2 Time Delivery Rate 11/17/18 75 16 130/62 97 Mechanical 10:30 (84) Ventilator 11/17/18 40 10:25 11/17/18 98.5 08:00 Intake and Output 11/16/18 11/16/18 11/17/18 1515:00 23:00 07:00 IntakeIntake Total 476.0 ml 503.0 ml 483.5 ml OutputOutput Total 1495 ml 1115 ml 570 ml BalanceBalance -1019.0 ml -612.0 ml -86.5 ml Exam General: WN/WD/NAD, AOx 0 HEENT: Unicetric/atraumatic/EOMI (does not follow commands) NECK: JVD elevated, no thyromegaly - intubated Lymph: no lymphadenopathy HEART: regular with no S3, II/ systolic murmur at apex LUNGS: Coarse sounds ABD: soft, NT, ND, +BS : Intact Neuro: non focal SKIN: chronic changes EXT: trace edema, PAD Results/Medications Result Diagram: 11/17/18 0500 11/17/18 0500 Results 24 hrs Laboratory Tests Test 11/16/18 14:16 11/16/18 16:16 11/16/18 18:09 11/16/18 19:16 Bedside Glucose 131 152 101 80 Test 11/16/18 19:56 11/16/18 21:10 11/16/18 22:10 11/16/18 23:09 Bedside Glucose 73 130 131 102 Test 11/16/18 23:56 11/17/18 00:55 11/17/18 02:02 11/17/18 03:51 Bedside Glucose 120 138 134 144 Test 11/17/18 05:00 11/17/18 05:58 11/17/18 07:00 11/17/18 08:32 White Blood Count 14.9 H Red Blood Count 3.27 L Hemoglobin 9.8 L Hematocrit 30.8 L Mean Corpuscular 94.2 Volume Mean Corpuscular 30.0 Hemoglobin Mean Corpuscular 31.8 L Hemoglobin Concen t Red Cell 14.2 Distribution Width Platelet Count 279 Mean Platelet 10.9 H Volume Immature 1.600 H Granulocytes % Neutrophils % 88.5 H Lymphocytes % 3.9 L Monocytes % 5.9 Eosinophils % 0.0 Basophils % 0.1 Nucleated Red 0.0 Blood Cells % Immature 0.240 H Granulocytes # Neutrophils # 13.2 H Lymphocytes # 0.6 L Monocytes # 0.9 Eosinophils # 0.0 Basophils # 0.0 Nucleated Red 0.0 Blood Cells # Sodium Level 144 Potassium Level 4.1 Chloride Level 104 Carbon Dioxide 33 H Level Anion Gap 7 Blood Urea 56 H Nitrogen Creatinine 1.27 H Est Glomerular Filtrat Rate mL/min Glucose Level 122 Calcium Level 8.1 L Phosphorus Level 3.8 Magnesium Level 2.7 H Bedside Glucose 136 74 Blood Gas Blood arterial Specimen Source Arterial Blood 11/17/2018 8:32:2 Date Drawn 3 AM Arterial Blood pH 7.485 H (Temp corrected) Arterial Blood 42.1 pCO2 (Temp correct) Arterial Blood 104.7 H pO2 (Temp corrected) Arterial Blood 31.0 H HCO3 Arterial Blood 6.9 H Base Excess Arterial Blood 97.9 Oxygen Saturation Jeison Test ACCEPTAB Arterial Blood Right Radial Gas Puncture Site Arterial 0.8 Blood Carboxyhemo globin Arterial Blood 0.1 Methemoglobin Blood Gas A-a O2 132.1 H Differential Oxyhemoglobin 97.0 Percent Blood Gas 37.0 Temperature Blood Gas 16.0 Respiration Rate Blood Gas Actual 29 Respiration Rate Blood Gas VENT - AC Modality FiO2 40.0 Blood Gas Tidal 550.0 Volume Blood Gas Low 10.0 PEEP Setting Blood Gas DT Notified Whom Blood Gas 11/17/2018 8:54:1 Notified Time 1 AM Test 11/17/18 10:29 11/17/18 12:43 Bedside Glucose 123 154 Home Meds Active Scripts Silver Sulfadiazine* (Silvadene*) 1% - 20 Gm Cream.gm., 1 APPLIC TOP DAILY, #1 TUB Prov:JESSIE WONG MD 06/12/18 Amoxicillin-Clavulanate K* (Augmentin*) 875 Mg Tab, 875 MG PO BID, #28 TAB Prov:AMANDA GOMEZ MD 06/08/14 Reported Medications Insulin Aspart (Novolog Mix (70/30)) 100 Units/Ml Soln, 28 SC with diinner, VIAL 11/04/18 Insulin Aspart (Novolog Mix (70/30)) 100 Units/Ml Soln, 38 SC WITH BREAKFAST, VIAL 11/04/18 Benazepril Hcl* (Benazepril Hcl*) 40 Mg Tablet, 40 MG PO DAILY, #30 TAB 11/04/18 Ergocalciferol (Vitamin D2) (VITAMIN D2) 50,000 Unit Capsule, 80332 UNIT PO weekly for saturdays, CAP 11/04/18 Omeprazole* (Omeprazole*) 20 Mg Capsule.dr, 20 MG PO DAILY, #30 CAP 11/04/18 Aspirin* (Aspirin* EC) 81 Mg Tablet.dr, 81 MG PO DAILY, TAB 11/04/18 Gabapentin* (Gabapentin*) 300 Mg Capsule, 300 MG PO BID, #60 CAP 11/04/18 Nebivolol Hcl* (Bystolic*) 20 Mg Tablet, 20 MG PO DAILY, #30 TAB 11/04/18 Atorvastatin Calcium* (Atorvastatin Calcium*) 20 Mg Tablet, 20 MG PO QHS, #30 TAB 11/04/18 Sulfasalazine (Azulfidine) 500 Mg Tab, 1000 MG PO TID, TAB 06/02/14 Medications Current Medications Ergocalciferol (Drisdol) 50,000 unit Sa PO Last administered on 11/09/18at 09:28; Admin Dose 50,000 UNIT; Start 11/09/18 at 09:00 Miscellaneous Medication (Bystolic) 20 mg DAILY PO Last administered on 11/11/18at 09:03; Admin Dose 20 MG; Start 11/04/18 at 09:00; Status Hold Clonidine (Catapres) 0.1 mg Q6H PRN PO SBP>160; Start 11/04/18 at 09:00 IV Flush (NS 3 ml) 3 ml PER PROTOCOL IV ; Start 11/04/18 at 09:00 Ondansetron HCl (Zofran Inj) 4 mg Q6H PRN IV NAUSEA/VOMITING; Start 11/04/18 at 09:00 Acetaminophen (Tylenol Tab) 650 mg Q6H PRN PO .PAIN 1-3 OR TEMP; Start 11/04/18 at 09:00 Miscellaneous Information 1 ea NOTE XX ; Start 11/04/18 at 09:00 Glucose (Glutose) 15 gm Q15M PRN PO DECREASED GLUCOSE; Start 11/04/18 at 09:00 Glucose (Glutose) 22.5 gm Q15M PRN PO DECREASED GLUCOSE; Start 11/04/18 at 09:00 Dextrose (D50w Syringe) 25 ml Q15M PRN IV DECREASED GLUCOSE; Start 11/04/18 at 09:00 Dextrose (D50w Syringe) 50 ml Q15M PRN IV DECREASED GLUCOSE; Start 11/04/18 at 09:00 Glucagon (Glucagen) 1 mg Q15M PRN IM DECREASED GLUCOSE; Start 11/04/18 at 09:00 Glucose (Glutose) 15 gm Q15M PRN BUCCAL DECREASED GLUCOSE; Start 11/04/18 at 09:00 Miscellaneous Information Patients own medicat... BID@10,16 XX Last administered on 11/10/18at 15:28; Admin Dose 1 EA; Start 11/04/18 at 16:00 Povidone Iodine (Povidone-Iodine) 1 applic BID TOP Last administered on 11/17/18 08:55; Admin Dose 1 APPLIC; Start 11/05/18 at 21:00 Sodium Hypochlorite (Dakins Diluted (40)) 1 applic BID TP Last administered on 11/17/18 08:55; Admin Dose 1 APPLIC; Start 11/07/18 at 09:00 Hydralazine HCl (Apresoline) 10 mg Q4H PRN IV sbp >160 Last administered on 11/08/18 08:59; Admin Dose 10 MG; Start 11/08/18 at 09:00 Famotidine (Pepcid) 20 mg DAILY NGT Last administered on 11/17/18 08:54; Admin Dose 20 MG; Start 11/11/18 at 09:30 Fentanyl 100 ml @ 2.5 mls/hr TITRATE IV Last administered on 11/17/18 01:02; Admin Dose 7.5 MLS/HR; Start 11/11/18 at 09:30 Midazolam HCl 50 ml @ 1 mls/hr TITRATE IV Last administered on 11/17/18 00:59; Admin Dose 9 MLS/HR; Start 11/11/18 at 10:30 Albuterol (Ventolin Hfa) 2 puff Q6H RESP THERAPY INH Last administered on 11/17/18 08:39; Admin Dose 2 PUFF; Start 11/11/18 at 20:00 Ipratropium [place] (Atrovent Hfa) 4 puff Q6H RESP THERAPY INH Last administered on 11/17/18 08:39; Admin Dose 4 PUFF; Start 11/11/18 at 20:00 Atropine Sulfate (Atropine) 0.5 mg PRN PRN IV SYMPTOMATIC BRADYCARDIA; Start 11/11/18 at 23:00 Aspirin (Aspirin) 325 mg DAILY GTB Last administered on 11/17/18 08:53; Admin Dose 325 MG; Start 11/13/18 at 09:00 Clopidogrel Bisulfate (plaVIX) 75 mg DAILY GTB Last administered on 11/17/18 08:53; Admin Dose 75 MG; Start 11/13/18 at 09:00 Atorvastatin Calcium (Lipitor) 20 mg QHS GTB Last administered on 11/16/18 21:14; Admin Dose 20 MG; Start 11/13/18 at 21:00 Gabapentin (Neurontin Liquid) 300 mg BID GTB Last administered on 11/17/18 09:01; Admin Dose 300 MG; Start 11/13/18 at 09:00 Hydralazine HCl (Apresoline) 100 mg TID GTB Last administered on 11/17/18 08:53; Admin Dose 100 MG; Start 11/13/18 at 09:00 Metoclopramide HCl (Reglan) 10 mg Q6H IV Last administered on 11/17/18 09:05; Admin Dose 10 MG; Start 11/13/18 at 10:00 Heparin Sodium (Porcine) (Heparin (5000 Units/1ml)) 5,000 unit BID SC Last administered on 11/17/18 09:02; Admin Dose 5,000 UNIT; Start 11/14/18 at 21:00 Bisacodyl (Dulcolax Supp) 10 mg DAILY PRN [place] CONSTIPATION Last administered on 11/14/18 16:43; Admin Dose 10 MG; Start 11/14/18 at 16:30 Insulin Human Regular 100 unit/ Sodium Chloride 100 ml @ 0 mls/hr PER PROTOCOL IV Last administered on 11/16/18at 23:16; Admin Dose 1.5 MLS/HR; Start 11/15/18 at 06:30 Miscellaneous Information (* Miscellaneous Pharmacy Order) Treatment of Hypoglycemia: 1.BG 51... Per protocol XX ; Start 11/15/18 at 06:30 Dextrose (D50w Syringe) 25 ml Q15M PRN IV .DECREASED GLUCOSE; Start 11/15/18 at 06:30 Dextrose (D50w Syringe) 50 ml Q15M PRN IV .DECREASED GLUCOSE; Start 11/15/18 at 06:30 Diagnostic Test (Pha) (Accu-Chek) 1 ea Q1H XX Last administered on 11/17/18at 05:58; Admin Dose 1 EA; Start 11/15/18 at 08:00 Methylprednisolone Sodium Succinate (Solu-Medrol) 40 mg Q12 IV Last administered on 11/17/18at 08:54; Admin Dose 40 MG; Start 11/15/18 at 11:30 Meropenem/Sodium Chloride 50 ml @ 100 mls/hr Q12 IVPB Last administered on 11/17/18at 08:54; Admin Dose 100 MLS/HR; Start 11/15/18 at 14:30 Levofloxacin (Levaquin) 250 mg DAILY@06 PO Last administered on 11/17/18at 05:56; Admin Dose 250 MG; Start 11/17/18 at 06:00 IV Flush (NS 10 ml) 10 ml PRN PRN IV FLUSH LINE; Start 11/15/18 at 15:30 Furosemide (Lasix) 40 mg DAILY@0600 IV Last administered on 11/17/18at 05:56; Admin Dose 40 MG; Start 11/17/18 at 06:00 Fluconazole (Diflucan) 100 mg DAILY PO Last administered on 11/17/18at 08:54; Admin Dose 100 MG; Start 11/16/18 at 14:00 Polyethylene Glycol (Miralax) 17 gm DAILY PRN NGT constipation; Start 11/17/18 at 09:00 Senna/Docusate Sodium (Senokot-S) 1 tab BID PRN NGT constipation; Start 11/17 at 09:00 Assessment/Plan Hospital Course (Demo Recall) 1. Preoperative evaluation prior to possible need for peripheral revascularization surgery.-neg trop x 3 and NL EF by echo with no sig valve abnl - s/p decomp[ensation and CODE Blue - pt was rossana last night, now in sinus - con't supportive Rx. Con't med rx. Con't supportive rX. BP better - con't supportive Rx. 2. Peripheral arterial disease with nonhealing gangrenous changes in left toe ulceration - post op now. Treated. 3. Hypertension, under reasonable control on current medications. NOw stable. Will allow fpr now. 4. Dyslipidemia. 5. Diabetes mellitus- con't to keep euglycemic 6. s/p cardiopulmonary arrest - mild be in mild ARDS now - con;t resp Rx - pulmonary follows 7. Bradycardic intermittenjt by tele - now back to sinus - will monitor - dopa gtt if sustained rossana. Now stable. 8. Positive troponin after arrest-? secondary to or primary to arrest - no intervention planned now. 9. Anemia - H/H stable - no bleeding now, RAJI BROWNE MD Nov 17, 2018 13:17
--- NOTE | 2018-11-17 14:34 | CONS ---
Assessment/Plan Assessment/Plan Hospital Course (Demo Recall) No acute events per report patient remains intubated sedated in no distress. WBC 14.9 platelets 279 neutrophils 88.5 BUN 56 creatinine 1.27 Chest x-ray this morning revealed stable patchy perihilar infiltrates Endotracheal aspirate growing Alice albicans, left foot wound culture grew Klebsiella pneumoniae ESBL and Stenotrophomonas maltophilia Antimicrobials: Meropenem, Levaquin, fluconazole Indwelling: Endotracheal tube, NG tube, Vora, PICC line Physical examination: Well-developed elderly man who is in no distress head atraumatic normocephalic neck is supple chest rise symmetrical breath sounds diminished bases heart S1-S2 abdomen soft bowel sounds present extremitie s with left foot dressing intact Assessment: 1. Status post cardiac arrest 2. Non-ST elevation NV 3. Acute respiratory failure, possibly aspirated now with radiographic findings of ARDS 4. Left foot gangrene 5. Peripheral arterial disease status post left femoral to posterior tibial bypass 11/08/18 6. Diabetes 7. History of left foot second toe amputation 8. Acute kidney insufficiency Plan: Remains unchanged, continue antibiotics, steroids, vent management per pulmonary Consultation Date/Type/Reason Admit Date/Time Nov 04, 2018 at 07:34 Initial Consult Date Type of Consult id Requesting Provider: KARL WOOD MD Date/Time of Note DATE: 11/17/18 TIME: 14:33 Exam/Review of Systems Exam Vitals Vital Signs Date Temp Pulse Resp B/P (MAP) Pulse Ox O2 O2 Flow FiO2 Time Delivery Rate 11/17/18 75 12:00 11/17/18 16 130/62 97 Mechanical 10:30 (84) Ventilator 11/17/18 40 10:25 11/17/18 98.5 08:00 Intake and Output 11/16/18 11/16/18 11/17/18 1515:00 23:00 07:00 IntakeIntake Total 476.0 ml 503.0 ml 483.5 ml OutputOutput Total 1495 ml 1115 ml 570 ml BalanceBalance -1019.0 ml -612.0 ml -86.5 ml Results Result Diagram: 11/17/18 0500 11/17/18 0500 Results 24hrs Laboratory Tests Test 11/16/18 16:16 11/16/18 18:09 11/16/18 19:16 11/16/18 19:56 Bedside Glucose 152 101 80 73 Test 11/16/18 21:10 11/16/18 22:10 11/16/18 23:09 11/16/18 23:56 Bedside Glucose 130 131 102 120 Test 11/17/18 00:55 11/17/18 02:02 11/17/18 03:51 11/17/18 05:00 Bedside Glucose 138 134 144 White Blood Count 14.9 H Red Blood Count 3.27 L Hemoglobin 9.8 L Hematocrit 30.8 L Mean Corpuscular 94.2 Volume Mean Corpuscular 30.0 Hemoglobin Mean Corpuscular 31.8 L Hemoglobin Concen t Red Cell 14.2 Distribution Width Platelet Count 279 Mean Platelet 10.9 H Volume Immature 1.600 H Granulocytes % Neutrophils % 88.5 H Lymphocytes % 3.9 L Monocytes % 5.9 Eosinophils % 0.0 Basophils % 0.1 Nucleated Red 0.0 Blood Cells % Immature 0.240 H Granulocytes # Neutrophils # 13.2 H Lymphocytes # 0.6 L Monocytes # 0.9 Eosinophils # 0.0 Basophils # 0.0 Nucleated Red 0.0 Blood Cells # Sodium Level 144 Potassium Level 4.1 Chloride Level 104 Carbon Dioxide 33 H Level Anion Gap 7 Blood Urea 56 H Nitrogen Creatinine 1.27 H Est Glomerular Filtrat Rate mL/min Glucose Level 122 Calcium Level 8.1 L Phosphorus Level 3.8 Magnesium Level 2.7 H Test 11/17/18 05:58 11/17/18 07:00 11/17/18 08:32 11/17/18 10:29 Bedside Glucose 136 74 123 Blood Gas Blood arterial Specimen Source Arterial Blood 11/17/2018 8:32:2 Date Drawn 3 AM Arterial Blood pH 7.485 H (Temp corrected) Arterial Blood 42.1 pCO2 (Temp correct) Arterial Blood 104.7 H pO2 (Temp corrected) Arterial Blood 31.0 H HCO3 Arterial Blood 6.9 H Base Excess Arterial Blood 97.9 Oxygen Saturation Jeison Test ACCEPTAB Arterial Blood Right Radial Gas Puncture Site Arterial 0.8 Blood Carboxyhemo globin Arterial Blood 0.1 Methemoglobin Blood Gas A-a O2 132.1 H Differential Oxyhemoglobin 97.0 Percent Blood Gas 37.0 Temperature Blood Gas 16.0 Respiration Rate Blood Gas Actual 29 Respiration Rate Blood Gas VENT - AC Modality FiO2 40.0 Blood Gas Tidal 550.0 Volume Blood Gas Low 10.0 PEEP Setting Blood Gas DT Notified Whom Blood Gas 11/17/2018 8:54:1 Notified Time 1 AM Test 11/17/18 12:43 11/17/18 14:24 Bedside Glucose 154 111 Medications Medication Current Medications Ergocalciferol (Drisdol) 50,000 unit Sa PO Last administered on 11/09/18at 09:28; Admin Dose 50,000 UNIT; Start 11/09/18 at 09:00 Miscellaneous Medication (Bystolic) 20 mg DAILY PO Last administered on 11/11/18at 09:03; Admin Dose 20 MG; Start 11/04/18 at 09:00; Status Hold Clonidine (Catapres) 0.1 mg Q6H PRN PO SBP>160; Start 11/04/18 at 09:00 IV Flush (NS 3 ml) 3 ml PER PROTOCOL IV ; Start 11/04/18 at 09:00 Ondansetron HCl (Zofran Inj) 4 mg Q6H PRN IV NAUSEA/VOMITING; Start 11/04/18 at 09:00 Acetaminophen (Tylenol Tab) 650 mg Q6H PRN PO .PAIN 1-3 OR TEMP; Start 11/04/18 at 09:00 Miscellaneous Information 1 ea NOTE XX ; Start 11/04/18 at 09:00 Glucose (Glutose) 15 gm Q15M PRN PO DECREASED GLUCOSE; Start 11/04/18 at 09:00 Glucose (Glutose) 22.5 gm Q15M PRN PO DECREASED GLUCOSE; Start 11/04/18 at 09:00 Dextrose (D50w Syringe) 25 ml Q15M PRN IV DECREASED GLUCOSE; Start 11/04/18 at 09:00 Dextrose (D50w Syringe) 50 ml Q15M PRN IV DECREASED GLUCOSE; Start 11/04/18 at 09:00 Glucagon (Glucagen) 1 mg Q15M PRN IM DECREASED GLUCOSE; Start 11/04/18 at 09:00 Glucose (Glutose) 15 gm Q15M PRN BUCCAL DECREASED GLUCOSE; Start 11/04/18 at 09:00 Miscellaneous Information Patients own medicat... BID@10,16 XX Last administered on 11/10/18at 15:28; Admin Dose 1 EA; Start 11/04/18 at 16:00 Povidone Iodine (Povidone-Iodine) 1 applic BID TOP Last administered on 10/21 08:55; Admin Dose 1 APPLIC; Start 11/05/18 at 21:00 Sodium Hypochlorite (Dakins Diluted ()) 1 applic BID TP Last administered on 11/17/18 08:55; Admin Dose 1 APPLIC; Start 11/07/18 at 09:00 Hydralazine HCl (Apresoline) 10 mg Q4H PRN IV sbp >160 Last administered on 11/08/18 08:59; Admin Dose 10 MG; Start 11/08/18 at 09:00 Famotidine (Pepcid) 20 mg DAILY NGT Last administered on 11/17/18 08:54; Admin Dose 20 MG; Start 11/11/18 at 09:30 Fentanyl 100 ml @ 2.5 mls/hr TITRATE IV Last administered on 11/17/18 13:37; Admin Dose 7.5 MLS/HR; Start 11/11/18 at 09:30 Midazolam HCl 50 ml @ 1 mls/hr TITRATE IV Last administered on 11/17/18 00:59; Admin Dose 9 MLS/HR; Start 11/11/18 at 10:30 Albuterol (Ventolin Hfa) 2 puff Q6H RESP THERAPY INH Last administered on 11/17/18 08:39; Admin Dose 2 PUFF; Start 11/11/18 at 20:00 Ipratropium [place] (Atrovent Hfa) 4 puff Q6H RESP THERAPY INH Last administered on 11/17/18 08:39; Admin Dose 4 PUFF; Start 11/11/18 at 20:00 Atropine Sulfate (Atropine) 0.5 mg PRN PRN IV SYMPTOMATIC BRADYCARDIA; Start 11/11/18 at 23:00 Aspirin (Aspirin) 325 mg DAILY GTB Last administered on 11/17/18 08:53; Admin Dose 325 MG; Start 11/13/18 at 09:00 Clopidogrel Bisulfate (plaVIX) 75 mg DAILY GTB Last administered on 11/17/18 08:53; Admin Dose 75 MG; Start 11/13/18 at 09:00 Atorvastatin Calcium (Lipitor) 20 mg QHS GTB Last administered on 11/16/18 21:14; Admin Dose 20 MG; Start 11/13/18 at 21:00 Gabapentin (Neurontin Liquid) 300 mg BID GTB Last administered on 11/17/18 09:01; Admin Dose 300 MG; Start 11/13/18 at 09:00 Hydralazine HCl (Apresoline) 100 mg TID GTB Last administered on 11/17/18 13:55; Admin Dose 100 MG; Start 11/13/18 at 09:00 Metoclopramide HCl (Reglan) 10 mg Q6H IV Last administered on 11/17/18 09:05; Admin Dose 10 MG; Start 11/13/18 at 10:00 Heparin Sodium (Porcine) (Heparin (5000 Units/1ml)) 5,000 unit BID SC Last administered on 11/17/18 09:02; Admin Dose 5,000 UNIT; Start 11/14/18 at 21:00 Bisacodyl (Dulcolax Supp) 10 mg DAILY PRN [place] CONSTIPATION Last administered on 11/14/18 16:43; Admin Dose 10 MG; Start 11/14/18 at 16:30 Insulin Human Regular 100 unit/ Sodium Chloride 100 ml @ 0 mls/hr PER PROTOCOL IV Last administered on 11/16/18 23:16; Admin Dose 1.5 MLS/HR; Start 11/15/18 at 06:30 Miscellaneous Information (* Miscellaneous Pharmacy Order) Treatment of Hypoglycemia: 1.BG 51... Per protocol XX ; Start 11/15/18 at 06:30 Dextrose (D50w Syringe) 25 ml Q15M PRN IV .DECREASED GLUCOSE; Start 11/15/18 at 06:30 Dextrose (D50w Syringe) 50 ml Q15M PRN IV .DECREASED GLUCOSE; Start 11/15/18 at 06:30 Diagnostic Test (Pha) (Accu-Chek) 1 ea Q1H XX Last administered on 11/17/18 05:58; Admin Dose 1 EA; Start 11/15/18 at 08:00 Methylprednisolone Sodium Succinate (Solu-Medrol) 40 mg Q12 IV Last administered on 11/17/18 08:54; Admin Dose 40 MG; Start 11/15/18 at 11:30 Meropenem/Sodium Chloride 50 ml @ 100 mls/hr Q12 IVPB Last administered on 11/17/18 08:54; Admin Dose 100 MLS/HR; Start 11/15/18 at 14:30 Levofloxacin (Levaquin) 250 mg DAILY@06 PO Last administered on 11/17/18at 05:5 6; Admin Dose 250 MG; Start 11/17/18 at 06:00 IV Flush (NS 10 ml) 10 ml PRN PRN IV FLUSH LINE; Start 11/15/18 at 15:30 Furosemide (Lasix) 40 mg DAILY@0600 IV Last administered on 11/17/18at 05:56; Ad min Dose 40 MG; Start 11/17/18 at 06:00 Fluconazole (Diflucan) 100 mg DAILY PO Last administered on 11/17/18at 08:54; Admin Dose 100 MG; Start 11/16/18 at 14:00 Polyethylene Glycol (Miralax) 17 gm DAILY PRN NGT constipation; Start 11/17/18 at 09:00 Senna/Docusate Sodium (Senokot-S) 1 tab BID PRN NGT constipation; Start 11/17/18 at 09:00 HERRERA MURILLO NP Nov 17, 2018 14:34
[2018-11-17] MEDS: ATORVASTATIN 20 MG TAB GTB SCH (20:25)
[2018-11-17] MEDS: INSULIN HUMAN REGULAR 100 UNIT in SOD CHLORIDE 0.9% 99 ML IV SCH (22:37)
[2018-11-18] VITALS (30 sets, daily range): BP systolic 122–183; BP diastolic 57–129; PULSE 69–99; RESP 14–26
[2018-11-18] MEDS: ACCU-CHEK XX SCH ×10 (00:22→10:21)
[2018-11-18] MEDS: FENTAnyl (DRIP) 1000 mcg/100mL 100 ML IV SCH (00:24)
[2018-11-18] MEDS: MIDAZOLAM (DRIP) 50 mg/50 mL 50 ML IV SCH (01:29)
[2018-11-18] MEDS: IPRATROPIUM (HFA) 12.9 GM INHALER INH SCH (03:25)
[2018-11-18] MEDS: ALBUTEROL HFA 8 GM INHALER INH SCH (03:25)
[2018-11-18] MEDS: METOCLOPRAMIDE 10 MG INJ IV SCH ×2 (03:57→09:48)
[2018-11-18] MEDS: FUROSEMIDE 40 MG INJ IV SCH (05:26)
[2018-11-18] MEDS ORDERED: LEVOFLOXACIN 250 MG TAB NGT SCH (06:00)
[2018-11-18] MEDS ORDERED: ACETAZOLAMIDE 500 MG INJ IV ONE (08:00)
--- NOTE | 2018-11-18 08:33 | PN ---
DATE: 11/18/2018 SUBJECTIVE: The patient remains critically ill on full ventilatory support. No other events noted. OBJECTIVE: VITAL SIGNS: Blood pressure is 150/92, respirations 16, pulse 70, temperature 98.6. HEENT: Head is normocephalic. NECK: Supple. HEART: Regular rate. LUNGS: Show diminished breath sounds at the base. ABDOMEN: Soft, nontender to palpation without rebound or guarding. EXTREMITIES: Negative for clubbing, cyanosis. Positive edema. DERMATOLOGIC: No rashes. MUSCULOSKELETAL: No joint effusion. NEUROLOGIC: No change in exam. MEDICATIONS: Reviewed. LABORATORY DATA: Reviewed. IMAGING STUDIES: Reviewed. ASSESSMENT AND PLAN: 1. Nonoliguric acute kidney injury. Etiology is secondary to hemodynamics, tubular injury. Renal f unction continues to improve. Continue current treatment plan, supportive care, renally dose all med ications. 2. Volume overload. Etiology is secondary to acute kidney injury, diastolic heart failure. Continu e Lasix. The patient is appearing more euvolemic. 3. Anemia. Continue to monitor hemoglobin and hematocrit levels. 4. Mineral bone disorder, monitor calcium and phosphorus levels. 5. Mixed acid base disorder. The patient has a metabolic alkalosis and a respiratory alkalosis. Pl an is to give the patient a course of Diamox. We will monitor closely. 6. Ventilator-dependent respiratory failure. Vent settings and ABG was reviewed. Continue to monit or. Follow up with Pulmonary. 7. Arrhythmia. Continue to monitor. 8. Peripheral vascular disease, status post ileofemoral bypass. 9. Hypertension. Continue current blood pressure regimen. 10. Dyslipidemia. Continue to monitor. 11. Acute encephalopathy, etiology is toxic metabolic. 12. Status post cardiac arrest. Dictated By: JEAN CLAUDE LARIOS DO NR/NTS Conf#: [id number] DID#: [id number] CC: TOMASA SCOTT; JAYLEEN BUNN MD; KARL WOOD MD;*End*
[2018-11-18] MEDS: FAMOTIDINE 20 MG TAB NGT SCH (08:45)
[2018-11-18] MEDS: FLUCONAZOLE 100 MG TAB PO SCH (08:45)
[2018-11-18] MEDS: METHYLPREDNISOLONE 40 MG INJ IV SCH ×2 (08:45→21:20)
[2018-11-18] MEDS: ASPIRIN 325 MG TAB GTB SCH (08:45)
[2018-11-18] MEDS: CLOPIDOGREL 75 MG TAB GTB SCH (08:45)
[2018-11-18] MEDS: GABAPENTIN (50 MG/ML PO SYG) GTB SCH (08:46)
[2018-11-18] MEDS: POVIDONE IODINE 10% 28.4 GM OINT TOP SCH ×2 (08:47→21:33)
[2018-11-18] MEDS: DAKINS 0.0125%(1/40) 473 ML SOLUTION TP SCH ×2 (08:47→21:33)
[2018-11-18] MEDS: MEROPENEM 500MG/50 ML (PMX) 50 ML IVPB SCH ×2 (08:48→21:20)
[2018-11-18] MEDS: HEPARIN 5,000 UNIT/1 ML VIAL SC SCH ×2 (08:51→21:22)
--- NOTE | 2018-11-18 09:54 | CONS ---
Consult Date/Type/Reason Admit Date/Time Nov 04, 2018 at 07:34 Initial Consult Date 11/11/18 Type of Consult Pulmonary Requesting Provider: KARL WOOD MD Date/Time of Note DATE: 11/18/18 TIME: 09:53 Subjective Patient tolerating CPAP weaning trial this morning no respiratory distress. Objective Vital Signs Date Temp Pulse Resp B/P (MAP) Pulse Ox O2 O2 Flow FiO2 Time Delivery Rate 11/18/18 83 18 97 40 09:09 11/18/18 150/92 Mechanical 06:00 (111) Ventilator 11/18/18 98.6 04:00 Intake and Output 11/17/18 11/17/18 11/18/18 1515:00 23:00 07:00 IntakeIntake Total 463.0 ml 504.0 ml 556.5 ml OutputOutput Total 1300 ml 1000 ml 900 ml BalanceBalance -837.0 ml -496.0 ml -343.5 ml Exam GENERAL: Well-nourished, well-developed gentleman, orally intubated on mechanical ventilation, appears comfortable at rest, no acute distress. VITAL SIGNS: NECK: Supple. No JVD or lymphadenopathy. CARDIAC: S1, S2, no added sounds or murmurs. CHEST: Diminished air entry bilaterally. ABDOMEN: Soft, nontender. No guarding or rebound. EXTREMITIES: No cyanosis, clubbing, 1+ edema. NEUROLOGIC: Generalized weakness. Vent Setting Ventilator Support Mode: CPAP, PS, SPONT Fraction of Inspired Oxygen pe: 40 Positive End Expiratory Pressu: 5.0 Results/Medications Result Diagram: 11/18/18 0435 11/18/18 0435 Results 24 hrs Laboratory Tests Test 11/17/18 10:29 11/17/18 12:43 11/17/18 14:24 11/17/18 16:33 Bedside Glucose 123 154 111 119 Test 11/17/18 18:12 11/17/18 20:24 11/17/18 22:19 11/18/18 00:32 Bedside Glucose 134 129 96 117 Test 11/18/18 02:11 11/18/18 03:54 11/18/18 04:35 11/18/18 06:03 Bedside Glucose 103 145 136 White Blood Count 14.1 H Red Blood Count 3.30 L Hemoglobin 9.8 L Hematocrit 31.1 L Mean Corpuscular 94.2 Volume Mean Corpuscular 29.7 Hemoglobin Mean Corpuscular 31.5 L Hemoglobin Concen t Red Cell 14.0 Distribution Width Platelet Count 286 Mean Platelet 11.1 H Volume Immature 0.800 H Granulocytes % Neutrophils % 90.2 H Lymphocytes % 5.1 L Monocytes % 3.8 Eosinophils % 0.0 Basophils % 0.1 Nucleated Red 0.0 Blood Cells % Immature 0.110 H Granulocytes # Neutrophils # 12.7 H Lymphocytes # 0.7 L Monocytes # 0.5 Eosinophils # 0.0 Basophils # 0.0 Nucleated Red 0.0 Blood Cells # Sodium Level 144 Potassium Level 4.0 Chloride Level 103 Carbon Dioxide 32 H Level Anion Gap 9 Blood Urea 54 H Nitrogen Creatinine 1.19 Est Glomerular Filtrat Rate mL/min Glucose Level 142 Calcium Level 8.0 L Phosphorus Level 4.1 Magnesium Level 2.8 H Test 11/18/18 08:04 11/18/18 09:30 Bedside Glucose 134 Blood Gas Blood arterial Specimen Source Arterial Blood 11/18/2018 9:30:24 Date Drawn AM Arterial Blood pH 7.456 H (Temp corrected) Arterial Blood 46.0 H pCO2 (Temp correct) Arterial Blood 98.6 H pO2 (Temp corrected) Arterial Blood 31.7 H HCO3 Arterial Blood 6.9 H Base Excess Arterial Blood 96.9 Oxygen Saturation Jeison Test ACCEPTAB Arterial Blood Left Radial Gas Puncture Site Arterial 0.4 Blood Carboxyhemo globin Arterial Blood 0.2 Methemoglobin Blood Gas A-a O2 133.7 H Differential Oxyhemoglobin 96.3 Percent Blood Gas 37.0 Temperature Blood Gas Actual 14 Respiration Rate Blood Gas VENT - CPAP Modality FiO2 40.0 Blood Gas Low 5.0 PEEP Setting Blood Gas 10 Pressure Support Blood Gas TM Notified Whom Blood Gas 11/18/2018 9:44:06 Notified Time AM Medications Current Medications Ergocalciferol (Drisdol) 50,000 unit Sa PO Last administered on 11/09/18at 09:28; Admin Dose 50,000 UNIT; Start 11/09/18 at 09:00 Miscellaneous Medication (Bystolic) 20 mg DAILY PO Last administered on 11/11/18at 09:03; Admin Dose 20 MG; Start 11/04/18 at 09:00; Status Hold Clonidine (Catapres) 0.1 mg Q6H PRN PO SBP>160; Start 11/04/18 at 09:00 IV Flush (NS 3 ml) 3 ml PER PROTOCOL IV ; Start 11/04/18 at 09:00 Ondansetron HCl (Zofran Inj) 4 mg Q6H PRN IV NAUSEA/VOMITING; Start 11/04/18 at 09:00 Acetaminophen (Tylenol Tab) 650 mg Q6H PRN PO .PAIN 1-3 OR TEMP; Start 11/04/18 at 09:00 Miscellaneous Information 1 ea NOTE XX ; Start 11/04/18 at 09:00 Glucose (Glutose) 15 gm Q15M PRN PO DECREASED GLUCOSE; Start 11/04/18 at 09:00 Glucose (Glutose) 22.5 gm Q15M PRN PO DECREASED GLUCOSE; Start 11/04/18 at 09:00 Dextrose (D50w Syringe) 25 ml Q15M PRN IV DECREASED GLUCOSE; Start 11/04/18 at 09:00 Dextrose (D50w Syringe) 50 ml Q15M PRN IV DECREASED GLUCOSE; Start 11/04/18 at 09:00 Glucagon (Glucagen) 1 mg Q15M PRN IM DECREASED GLUCOSE; Start 11/04/18 at 09:00 Glucose (Glutose) 15 gm Q15M PRN BUCCAL DECREASED GLUCOSE; Start 11/04/18 at 09:00 Miscellaneous Information Patients own medicat... BID@10,16 XX Last administe red on 11/10/18at 15:28; Admin Dose 1 EA; Start 11/04/18 at 16:00 Povidone Iodine (Povidone-Iodine) 1 applic BID TOP Last administered on 11/18/18at 08:47; Admin Dose 1 APPLIC; Start 11/05/18 at 21:00 Sodium Hypochlorite (Dakins Diluted ()) 1 applic BID TP Last administered on 11/18/18at 08:47; Admin Dose 1 APPLIC; Start 11/07/18 at 09:00 Hydralazine HCl (Apresoline) 10 mg Q4H PRN IV sbp >160 Last administered on 11/08/18at 08:59; Admin Dose 10 MG; Start 11/08/18 at 09:00 Famotidine (Pepcid) 20 mg DAILY NGT Last administered on 11/18/18at 08:45; Admin Dose 20 MG; Start 11/11/18 at 09:30 Fentanyl 100 ml @ 2.5 mls/hr TITRATE IV Last administered on 11/18/18 00:24; Admin Dose 7.5 MLS/HR; Start 11/11/18 at 09:30 Midazolam HCl 50 ml @ 1 mls/hr TITRATE IV Last administered on 11/18/18 01:29; Admin Dose 9 MLS/HR; Start 11/11/18 at 10:30 Albuterol (Ventolin Hfa) 2 puff Q6H RESP THERAPY INH Last administered on 11/18/18 03:25; Admin Dose 2 PUFF; Start 11/11/18 at 20:00 Ipratropium [place] (Atrovent Hfa) 4 puff Q6H RESP THERAPY INH Last administered on 11/18/18 03:25; Admin Dose 4 PUFF; Start 11/11/18 at 20:00 Atropine Sulfate (Atropine) 0.5 mg PRN PRN IV SYMPTOMATIC BRADYCARDIA; Start 11/11/18 at 23:00 Aspirin (Aspirin) 325 mg DAILY GTB Last administered on 11/18/18 08:45; Admin Dose 325 MG; Start 11/13/18 at 09:00 Clopidogrel Bisulfate (plaVIX) 75 mg DAILY GTB Last administered on 11/18/18 08:45; Admin Dose 75 MG; Start 11/13/18 at 09:00 Atorvastatin Calcium (Lipitor) 20 mg QHS GTB Last administered on 11/17/18 20:25; Admin Dose 20 MG; Start 11/13/18 at 21:00 Gabapentin (Neurontin Liquid) 300 mg BID GTB Last administered on 11/18/18 08:46; Admin Dose 300 MG; Start 11/13/18 at 09:00 Hydralazine HCl (Apresoline) 100 mg TID GTB Last administered on 11/18/18 08:46; Admin Dose 100 MG; Start 11/13/18 at 09:00 Metoclopramide HCl (Reglan) 10 mg Q6H IV Last administered on 11/18/18 03:57; Admin Dose 10 MG; Start 11/13/18 at 10:00 Heparin Sodium (Porcine) (Heparin (5000 Units/1ml)) 5,000 unit BID SC Last administered on 11/18/18 08:51; Admin Dose 5,000 UNIT; Start 11/14/18 at 21:00 Bisacodyl (Dulcolax Supp) 10 mg DAILY PRN [place] CONSTIPATION Last administered on 11/14/18at 16:43; Admin Dose 10 MG; Start 11/14/18 at 16:30 Insulin Human Regular 100 unit/ Sodium Chloride 100 ml @ 0 mls/hr PER PROTOCOL IV Last administered on 11/17/18at 22:37; Admin Dose 1.5 MLS/HR; Start 11/15/18 at 06:30 Miscellaneous Information (* Miscellaneous Pharmacy Order) Treatment of Hyp oglycemia: 1.BG 51... Per protocol XX ; Start 11/15/18 at 06:30 Dextrose (D50w Syringe) 25 ml Q15M PRN IV .DECREASED GLUCOSE; Start 11/15/18 at 06:30 Dextrose (D50w Syringe) 50 ml Q15M PRN IV .DECREASED GLUCOSE; Start 11/15/18 at 06:30 Diagnostic Test (Pha) (Accu-Chek) 1 ea Q1H XX Last administered on 11/18/18at 08:03; Admin Dose 1 EA; Start 11/15/18 at 08:00 Methylprednisolone Sodium Succinate (Solu-Medrol) 40 mg Q12 IV Last administered on 11/18/18at 08:45; Admin Dose 40 MG; Start 11/15/18 at 11:30 Meropenem/Sodium Chloride 50 ml @ 100 mls/hr Q12 IVPB Last administered on 11/18/18at 08:48; Admin Dose 100 MLS/HR; Start 11/15/18 at 14:30 IV Flush (NS 10 ml) 10 ml PRN PRN IV FLUSH LINE; Start 11/15/18 at 15:30 Furosemide (Lasix) 40 mg DAILY@0600 IV Last administered on 11/18/18at 05:26; Adm in Dose 40 MG; Start 11/17/18 at 06:00; Status Hold Fluconazole (Diflucan) 100 mg DAILY PO Last administered on 11/18/18at 08:45; Admin Dose 100 MG; Start 11/16/18 at 14:00 Polyethylene Glycol (Miralax) 17 gm DAILY PRN NGT constipation; Start 11/17/18 at 09:00 Senna/Docusate Sodium (Senokot-S) 1 tab BID PRN NGT constipation; Start 11/17/18 at 09:00 Levofloxacin (Levaquin) 250 mg DAILY@06 NGT Last administered on 11/18/18at 05:26; Admin Dose 250 MG; Start 11/18/18 at 06:00 Assessment/Plan Hospital Course (Demo Recall) IMPRESSION 1. Acute hypoxemic respiratory failure likely following cardiopulmonary arrest. Chest x-ray appears to be consistent with ARDS. Clinical improvement. 2. Recent new onset bradycardia.Likely secondary to b sharon. 3. History of peripheral vascular disease. 4. History of poorly controlled diabetes. 5. Anemia, no GIB 6. Leukocytosis likely secondary to steroids. PLAN: 1. Diuretics as tolerated. 2. Continue mechanical ventilation. Adequate CPAP trial this morning will extubate post extubation incentive spirometry speech therapy evaluation as patient is high risk of aspiration. 3. Insulin drip for hyperglycemia decrease IV Solu-Medrol. 4. Continue fentanyl and Versed. 5. Renal recommendations appreciated. 6. Deep vein thrombosis and gastrointestinal prophylaxis. 7. Vascular recommendations regarding postop wound care, also appreciate podiatry recommendations. Critical care time 40 minutes. EDWIGE CARRANZA MD, [facility] Nov 18, 2018 09:54
--- NOTE | 2018-11-18 10:21 | CONS ---
Assessment/Plan Assessment/Plan Hospital Course (Demo Recall) IMPRESSION: 1. Preoperative evaluation prior to possible need for peripheral revascularization surgery.-neg trop x 3 and NL EF by echo with no sig valve abnl. Echo repeat 11/13 with NL EF 2. Peripheral arterial disease with nonhealing gangrenous changes in left toe ulceration. 3. Hypertension, under reasonable control on current medications. 4. Dyslipidemia. 5. Diabetes mellitus. 6. s/p cardiopulmonary arrest 7. Bradycardic intermittent by tele 8. Positive troponin after arrest-? secondary to or primary to arrest, likley secondary to as no signifcant uptrend and now downtrended 9. Resp failure-on vent 100%, ? ARDS s/p extubation today Recc: -Remains in ICU -trend cardiac enzymes which have downtrended in the setting of renal failure -Continue asa/plavix/statin -serial ecg's -Continue abx's and f/u cx data -continue steroids/bronchodilators -local wound care -Continue hydralazine and consider additional anti-hypertensive -Bystolic still held given initial bradycardia -heparin was d/c'd secondary to anemia requiring transfusions -follow volume status closely s/p dose of diamox and lasix Consultation Date/Type/Reason Admit Date/Time Nov 04, 2018 at 07:34 Initial Consult Date 11/06/18 Type of Consult Cardiology Reason for Consultation cardiac arrest Requesting Provider: KARL WOOD MD Date/Time of Note DATE: 11/18/18 TIME: 10:11 Exam/Review of Systems Vital Signs Vitals Vital Signs Date Temp Pulse Resp B/P (MAP) Pulse Ox O2 O2 Flow FiO2 Time Delivery Rate 11/18/18 83 18 97 40 09:09 11/18/18 150/92 Mechanical 06:00 (111) Ventilator 11/18/18 98.6 04:00 Intake and Output 11/17/18 11/17/18 11/18/18 1515:00 23:00 07:00 IntakeIntake Total 463.0 ml 504.0 ml 556.5 ml OutputOutput Total 1300 ml 1000 ml 900 ml BalanceBalance -837.0 ml -496.0 ml -343.5 ml Exam Exam Review of Systems: CONSTITUTIONAL: No fevers, chills. PULMONARY: s/p extubation CARDIOVASCULAR: No chest pain/palpitations GASTROINTESTINAL: No nausea/vomiting. GENITOURINARY: No hematuria/dysuria. MUSCULOSKELETAL: No myagias/arthalgias. PSYCHIATRIC: The patient denies depression. NEUROLOGIC: confusion Constitutional: alert Psych: confusion Head: normocephalic ENMT: mucosa pink and moist Neck: supple, jvd (9 cm water) Respiratory: diminished breath sounds (at bases/B) Cardiovascular: regular rate and rhythm Gastrointestinal: soft, non-tender Musculoskeletal: muscle tone (normal) Extremities: edema (none) Neurological: confused, other (No focalo deficits) Labs Result Diagram: 11/18/18 0435 11/18/18 0435 Results 24hrs Laboratory Tests Test 11/17/18 10:29 11/17/18 12:43 11/17/18 14:24 11/17/18 16:33 Bedside Glucose 123 154 111 119 Test 11/17/18 18:12 11/17/18 20:24 11/17/18 22:19 11/18/18 00:32 Bedside Glucose 134 129 96 117 Test 11/18/18 02:11 11/18/18 03:54 11/18/18 04:35 11/18/18 06:03 Bedside Glucose 103 145 136 White Blood Count 14.1 H Red Blood Count 3.30 L Hemoglobin 9.8 L Hematocrit 31.1 L Mean Corpuscular 94.2 Volume Mean Corpuscular 29.7 Hemoglobin Mean Corpuscular 31.5 L Hemoglobin Concen t Red Cell 14.0 Distribution Width Platelet Count 286 Mean Platelet 11.1 H Volume Immature 0.800 H Granulocytes % Neutrophils % 90.2 H Lymphocytes % 5.1 L Monocytes % 3.8 Eosinophils % 0.0 Basophils % 0.1 Nucleated Red 0.0 Blood Cells % Immature 0.110 H Granulocytes # Neutrophils # 12.7 H Lymphocytes # 0.7 L Monocytes # 0.5 Eosinophils # 0.0 Basophils # 0.0 Nucleated Red 0.0 Blood Cells # Sodium Level 144 Potassium Level 4.0 Chloride Level 103 Carbon Dioxide 32 H Level Anion Gap 9 Blood Urea 54 H Nitrogen Creatinine 1.19 Est Glomerular Filtrat Rate mL/min Glucose Level 142 Calcium Level 8.0 L Phosphorus Level 4.1 Magnesium Level 2.8 H Test 11/18/18 08:04 11/18/18 09:30 Bedside Glucose 134 Blood Gas Blood arterial Specimen Source Arterial Blood 11/18/2018 9:30:24 Date Drawn AM Arterial Blood pH 7.456 H (Temp corrected) Arterial Blood 46.0 H pCO2 (Temp correct) Arterial Blood 98.6 H pO2 (Temp corrected) Arterial Blood 31.7 H HCO3 Arterial Blood 6.9 H Base Excess Arterial Blood 96.9 Oxygen Saturation Jeison Test ACCEPTAB Arterial Blood Left Radial Gas Puncture Site Arterial 0.4 Blood Carboxyhemo globin Arterial Blood 0.2 Methemoglobin Blood Gas A-a O2 133.7 H Differential Oxyhemoglobin 96.3 Percent Blood Gas 37.0 Temperature Blood Gas Actual 14 Respiration Rate Blood Gas VENT - CPAP Modality FiO2 40.0 Blood Gas Low 5.0 PEEP Setting Blood Gas 10 Pressure Support Blood Gas TM Notified Whom Blood Gas 11/18/2018 9:44:06 Notified Time AM Medications Medications Current Medications Ergocalciferol (Drisdol) 50,000 unit Sa PO Last administered on 11/09/18at 09:28; Admin Dose 50,000 UNIT; Start 11/09/18 at 09:00 Miscellaneous Medication (Bystolic) 20 mg DAILY PO Last administered on 11/11/18at 09:03; Admin Dose 20 MG; Start 11/04/18 at 09:00; Status Hold Clonidine (Catapres) 0.1 mg Q6H PRN PO SBP>160; Start 11/04/18 at 09:00 IV Flush (NS 3 ml) 3 ml PER PROTOCOL IV ; Start 11/04/18 at 09:00 Ondansetron HCl (Zofran Inj) 4 mg Q6H PRN IV NAUSEA/VOMITING; Start 11/04/18 at 09:00 Acetaminophen (Tylenol Tab) 650 mg Q6H PRN PO .PAIN 1-3 OR TEMP; Start 11/04/18 at 09:00 Miscellaneous Information 1 ea NOTE XX ; Start 11/04/18 at 09:00 Glucose (Glutose) 15 gm Q15M PRN PO DECREASED GLUCOSE; Start 11/04/18 at 09:00 Glucose (Glutose) 22.5 gm Q15M PRN PO DECREASED GLUCOSE; Start 11/04/18 at 09:00 Dextrose (D50w Syringe) 25 ml Q15M PRN IV DECREASED GLUCOSE; Start 11/04/18 at 09:00 Dextrose (D50w Syringe) 50 ml Q15M PRN IV DECREASED GLUCOSE; Start 11/04/18 at 09:00 Glucagon (Glucagen) 1 mg Q15M PRN IM DECREASED GLUCOSE; Start 11/04/18 at 09:00 Glucose (Glutose) 15 gm Q15M PRN BUCCAL DECREASED GLUCOSE; Start 11/04/18 at 09:00 Miscellaneous Information Patients own medicat... BID@10,16 XX Last administered on 11/10/18 15:28; Admin Dose 1 EA; Start 11/04/18 at 16:00 Povidone Iodine (Povidone-Iodine) 1 applic BID TOP Last administered on 11/18/18 08:47; Admin Dose 1 APPLIC; Start 11/05/18 at 21:00 Sodium Hypochlorite (Dakins Diluted ()) 1 applic BID TP Last administered on 11/18/18 08:47; Admin Dose 1 APPLIC; Start 11/07/18 at 09:00 Hydralazine HCl (Apresoline) 10 mg Q4H PRN IV sbp >160 Last administered on 11/08/18 08:59; Admin Dose 10 MG; Start 11/08/18 at 09:00 Famotidine (Pepcid) 20 mg DAILY NGT Last administered on 11/18/18 08:45; Admin Dose 20 MG; Start 11/11/18 at 09:30 Fentanyl 100 ml @ 2.5 mls/hr TITRATE IV Last administered on 11/18/18 00:24; Admin Dose 7.5 MLS/HR; Start 11/11/18 at 09:30 Midazolam HCl 50 ml @ 1 mls/hr TITRATE IV Last administered on 11/18/18 01:29; Admin Dose 9 MLS/HR; Start 11/11/18 at 10:30 Albuterol (Ventolin Hfa) 2 puff Q6H RESP THERAPY INH Last administered on 11/18/18 03:25; Admin Dose 2 PUFF; Start 11/11/18 at 20:00 Ipratropium [place] (Atrovent Hfa) 4 puff Q6H RESP THERAPY INH Last administered on 11/18/18 03:25; Admin Dose 4 PUFF; Start 11/11/18 at 20:00 Atropine Sulfate (Atropine) 0.5 mg PRN PRN IV SYMPTOMATIC BRADYCARDIA; Start 11/11/18 at 23:00 Aspirin (Aspirin) 325 mg DAILY GTB Last administered on 11/18/18 08:45; Admin Dose 325 MG; Start 11/13/18 at 09:00 Clopidogrel Bisulfate (plaVIX) 75 mg DAILY GTB Last administered on 11/18/18 08:45; Admin Dose 75 MG; Start 11/13/18 at 09:00 Atorvastatin Calcium (Lipitor) 20 mg QHS GTB Last administered on 11/17/18 20:25; Admin Dose 20 MG; Start 11/13/18 at 21:00 Gabapentin (Neurontin Liquid) 300 mg BID GTB Last administered on 11/18/18 08:46; Admin Dose 300 MG; Start 11/13/18 at 09:00 Hydralazine HCl (Apresoline) 100 mg TID GTB Last administered on 11/18/18 08:46; Admin Dose 100 MG; Start 11/13/18 at 09:00 Metoclopramide HCl (Reglan) 10 mg Q6H IV Last administered on 11/18/18 03:57; Admin Dose 10 MG; Start 11/13/18 at 10:00 Heparin Sodium (Porcine) (Heparin (5000 Units/1ml)) 5,000 unit BID SC Last administered on 11/18/18 08:51; Admin Dose 5,000 UNIT; Start 11/14/18 at 21:00 Bisacodyl (Dulcolax Supp) 10 mg DAILY PRN [place] CONSTIPATION Last administered on 11/14/18 16:43; Admin Dose 10 MG; Start 11/14/18 at 16:30 Insulin Human Regular 100 unit/ Sodium Chloride 100 ml @ 0 mls/hr PER PROTOCOL IV Last administered on 11/17/18 22:37; Admin Dose 1.5 MLS/HR; Start 11/15/18 at 06:30 Miscellaneous Information (* Miscellaneous Pharmacy Order) Treatment of Hypoglycemia: 1.BG 51... Per protocol XX ; Start 11/15/18 at 06:30 Dextrose (D50w Syringe) 25 ml Q15M PRN IV .DECREASED GLUCOSE; Start 11/15/18 at 06:30 Dextrose (D50w Syringe) 50 ml Q15M PRN IV .DECREASED GLUCOSE; Start 11/15/18 at 06:30 Diagnostic Test (Pha) (Accu-Chek) 1 ea Q1H XX Last administered on 11/18/18 08:03; Admin Dose 1 EA; Start 11/15/18 at 08:00 Methylprednisolone Sodium Succinate (Solu-Medrol) 40 mg Q12 IV Last administered on 11/18/18 08:45; Admin Dose 40 MG; Start 11/15/18 at 11:30 Meropenem/Sodium Chloride 50 ml @ 100 mls/hr Q12 IVPB Last administered on 11/18/18at 08:48; Admin Dose 100 MLS/HR; Start 11/15/18 at 14:30 IV Flush (NS 10 ml) 10 ml PRN PRN IV FLUSH LINE; Start 11/15/18 at 15:30 Furosemide (Lasix) 40 mg DAILY@0600 IV Last administered on 11/18/18 05:26; Admin Dose 40 MG; Start 11/17/18 at 06:00; Status Hold Fluconazole (Diflucan) 100 mg DAILY PO Last administered on 11/18/18 08:45; Admin Dose 100 MG; Start 11/16/18 at 14:00 Polyethylene Glycol (Miralax) 17 gm DAILY PRN NGT constipation; Start 11/17/18 at 09:00 Senna/Docusate Sodium (Senokot-S) 1 tab BID PRN NGT constipation; Start 11/17/18 at 09:00 Levofloxacin (Levaquin) 250 mg DAILY@06 NGT Last administered on 11/18/18 05:26; Admin Dose 250 MG; Start 11/18/18 at 06:00 KLEVER HUNT Nov 18, 2018 10:21
--- NOTE | 2018-11-18 10:26 | PN ---
Date/Time of Note Date/Time of Note DATE: 11/18/18 TIME: 10:25 Objective Vitals Vital Signs Date Temp Pulse Resp B/P (MAP) Pulse Ox O2 O2 Flow FiO2 Time Delivery Rate 11/18/18 83 18 97 40 09:09 11/18/18 150/92 Mechanical 06:00 (111) Ventilator 11/18/18 98.6 04:00 Intake and Output 11/17/18 11/17/18 11/18/18 1515:00 23:00 07:00 IntakeIntake Total 463.0 ml 504.0 ml 556.5 ml OutputOutput Total 1300 ml 1000 ml 900 ml BalanceBalance -837.0 ml -496.0 ml -343.5 ml Results Result Diagram: 11/18/18 0435 11/18/18 0435 Medications Medications Current Medications Ergocalciferol (Drisdol) 50,000 unit Sa PO Last administered on 11/09/18at 09:28; Admin Dose 50,000 UNIT; Start 11/09/18 at 09:00 Miscellaneous Medication (Bystolic) 20 mg DAILY PO Last administered on 11/11/18at 09:03; Admin Dose 20 MG; Start 11/04/18 at 09:00; Status Hold Clonidine (Catapres) 0.1 mg Q6H PRN PO SBP>160; Start 11/04/18 at 09:00 IV Flush (NS 3 ml) 3 ml PER PROTOCOL IV ; Start 11/04/18 at 09:00 Ondansetron HCl (Zofran Inj) 4 mg Q6H PRN IV NAUSEA/VOMITING; Start 11/04/18 at 09:00 Acetaminophen (Tylenol Tab) 650 mg Q6H PRN PO .PAIN 1-3 OR TEMP; Start 11/04/18 at 09:00 Miscellaneous Information 1 ea NOTE XX ; Start 11/04/18 at 09:00 Glucose (Glutose) 15 gm Q15M PRN PO DECREASED GLUCOSE; Start 11/04/18 at 09:00 Glucose (Glutose) 22.5 gm Q15M PRN PO DECREASED GLUCOSE; Start 11/04/18 at 09:00 Dextrose (D50w Syringe) 25 ml Q15M PRN IV DECREASED GLUCOSE; Start 11/04/18 at 09:00 Dextrose (D50w Syringe) 50 ml Q15M PRN IV DECREASED GLUCOSE; Start 11/04/18 at 09:00 Glucagon (Glucagen) 1 mg Q15M PRN IM DECREASED GLUCOSE; Start 11/04/18 at 09:00 Glucose (Glutose) 15 gm Q15M PRN BUCCAL DECREASED GLUCOSE; Start 11/04/18 at 09:00 Miscellaneous Information Patients own medicat... BID@10,16 XX Last administered on 11/10/18 15:28; Admin Dose 1 EA; Start 11/04/18 at 16:00 Povidone Iodine (Povidone-Iodine) 1 applic BID TOP Last administered on 11/18/18 08:47; Admin Dose 1 APPLIC; Start 11/05/18 at 21:00 Sodium Hypochlorite (Dakins Diluted ()) 1 applic BID TP Last administered on 11/18/18 08:47; Admin Dose 1 APPLIC; Start 11/07/18 at 09:00 Hydralazine HCl (Apresoline) 10 mg Q4H PRN IV sbp >160 Last administered on 11/08/18 08:59; Admin Dose 10 MG; Start 11/08/18 at 09:00 Famotidine (Pepcid) 20 mg DAILY NGT Last administered on 11/18/18 08:45; Admin Dose 20 MG; Start 11/11/18 at 09:30 Fentanyl 100 ml @ 2.5 mls/hr TITRATE IV Last administered on 11/18/18 00:24; Admin Dose 7.5 MLS/HR; Start 11/11/18 at 09:30 Midazolam HCl 50 ml @ 1 mls/hr TITRATE IV Last administered on 11/18/18 01:29; Admin Dose 9 MLS/HR; Start 11/11/18 at 10:30 Albuterol (Ventolin Hfa) 2 puff Q6H RESP THERAPY INH Last administered on 11/18/18 03:25; Admin Dose 2 PUFF; Start 11/11/18 at 20:00 Ipratropium [place] (Atrovent Hfa) 4 puff Q6H RESP THERAPY INH Last administered on 11/18/18 03:25; Admin Dose 4 PUFF; Start 11/11/18 at 20:00 Atropine Sulfate (Atropine) 0.5 mg PRN PRN IV SYMPTOMATIC BRADYCARDIA; Start 11/11/18 at 23:00 Aspirin (Aspirin) 325 mg DAILY GTB Last administered on 11/18/18 08:45; Admin Dose 325 MG; Start 11/13/18 at 09:00 Clopidogrel Bisulfate (plaVIX) 75 mg DAILY GTB Last administered on 11/18/18 08:45; Admin Dose 75 MG; Start 11/13/18 at 09:00 Atorvastatin Calcium (Lipitor) 20 mg QHS GTB Last administered on 11/17/18 20:25; Admin Dose 20 MG; Start 11/13/18 at 21:00 Gabapentin (Neurontin Liquid) 300 mg BID GTB Last administered on 11/18/18 08:46; Admin Dose 300 MG; Start 11/13/18 at 09:00 Hydralazine HCl (Apresoline) 100 mg TID GTB Last administered on 11/18/18 08:46; Admin Dose 100 MG; Start 11/13/18 at 09:00 Metoclopramide HCl (Reglan) 10 mg Q6H IV Last administered on 11/18/18 03:57; Admin Dose 10 MG; Start 11/13/18 at 10:00 Heparin Sodium (Porcine) (Heparin (5000 Units/1ml)) 5,000 unit BID SC Last administered on 11/18/18 08:51; Admin Dose 5,000 UNIT; Start 11/14/18 at 21:00 Bisacodyl (Dulcolax Supp) 10 mg DAILY PRN [place] CONSTIPATION Last administered on 11/14/18 16:43; Admin Dose 10 MG; Start 11/14/18 at 16:30 Insulin Human Regular 100 unit/ Sodium Chloride 100 ml @ 0 mls/hr PER PROTOCOL IV Last administered on 11/17/18 22:37; Admin Dose 1.5 MLS/HR; Start 11/15/18 at 06:30 Miscellaneous Information (* Miscellaneous Pharmacy Order) Treatment of Hypoglycemia: 1.BG 51... Per protocol XX ; Start 11/15/18 at 06:30 Dextrose (D50w Syringe) 25 ml Q15M PRN IV .DECREASED GLUCOSE; Start 11/15/18 at 06:30 Dextrose (D50w Syringe) 50 ml Q15M PRN IV .DECREASED GLUCOSE; Start 11/15/18 at 06:30 Diagnostic Test (Pha) (Accu-Chek) 1 ea Q1H XX Last administered on 11/18/18at 10:21; Admin Dose 1 EA; Start 11/15/18 at 08:00 Methylprednisolone Sodium Succinate (Solu-Medrol) 40 mg Q12 IV Last administered on 11/18/18 08:45; Admin Dose 40 MG; Start 11/15/18 at 11:30 Meropenem/Sodium Chloride 50 ml @ 100 mls/hr Q12 IVPB Last administered on 11/18/18at 08:48; Admin Dose 100 MLS/HR; Start 11/15/18 at 14:30 IV Flush (NS 10 ml) 10 ml PRN PRN IV FLUSH LINE; Start 11/15/18 at 15:30 Furosemide (Lasix) 40 mg DAILY@0600 IV Last administered on 11/18/18at 05:26; Admin Dose 40 MG; Start 11/17/18 at 06:00; Status Hold Fluconazole (Diflucan) 100 mg DAILY PO Last administered on 11/18/18at 08:45; Admin Dose 100 MG; Start 11/16/18 at 14:00 Polyethylene Glycol (Miralax) 17 gm DAILY PRN NGT constipation; Start 11/17/18 at 09:00 Senna/Docusate Sodium (Senokot-S) 1 tab BID PRN NGT constipation; Start 11/17/18 at 09:00 Levofloxacin (Levaquin) 250 mg DAILY@06 NGT Last administered on 11/18/18at 05:26; Admin Dose 250 MG; Start 11/18/18 at 06:00 Amlodipine Besylate (Norvasc) 5 mg DAILY PO ; Start 11/19/18 at 09:00; Status UNV VTE Prophylaxis Risk score (from Ns)>0 risk: 11 [place] [facility] [place] contraindication: other Lines/Catheters IV Catheter Type: Schneider in Place: No Assessment/Plan Hospital Course Subjective Patient awake, undergoing CPAP trial, hopeful for extubation Objective Physical exam General: Patient is laying in bed and follows command however still intubated Mentation: Patient is alert and oriented Head: Normocephalic atraumatic Eyes: EOMI, pupils reactive to light Neck: Supple, nontender, midline Respiratory: Clear to auscultation bilaterally Cardiovascular: regular rate, no obvious murmurs Gastrointestinal: non-tender to palpation, bowel sounds heard. Neurological: Moves all extremities spontaneously Skin: No new skin lesions, surgical site bandaged, CDI ssessment/Plan 1. Acute hypoxic respiratory failure- improving - weaning FIO2 and tolerating 40% at this time. PEEP decreased to 5 this am , CPAP trial, will attempt to extubate today - CT chest without contrast results noted - Pulmonology on board for vent management 2. Cardiac arrest s/p ROSC - Cardiology on board and appreciate recommendations - ECHO with preserved EF 3. left fifth toe gangrenous ulcer - ID on board and appreciate consultation. Will continue current antibiotics - Continue local wound care - Podiatry on board and will plan for further amputation in the near future once stable 4. Severe peripheral vascular disease - s/p left femoral endarterectomy, iliofemoral bypass and femoral to posterior tibial bypass done on November 08, 2018 - Vascular surgery consultation appreciated 5. Diabetes Mellitus - A1c noted - insulin as needed 6. Acute kidney injury- improving - nephrology consultation appreciated and most likely due to contrast induced nephropathy as well as cardiorenal. managing diuretics - continue monitoring and avoid nephrotoxic agents 7. Essential HTN - holding home medications at this time - BP stable 8. Peripheral neuropathy - cont. gabapentin 9. HLD - On statin 10. Chronic anemia - Stable H&H. Monitor - no need for transfusions at this time 11. Urinary retention - Urology on board and appreciate recommendations. continue schneider care for now 12. Disposition -Hopeful for extubation today -More than 40 minutes of critical care time has been spent on this encounter FRANTZ SCHWAB Nov 18, 2018 10:26
[2018-11-18] MEDS ORDERED: DEXTROSE 5%-0.45% NACL 1,000 ML IV SCH (11:00)
[2018-11-18] MEDS ORDERED: INSULIN ASPART [NOVOLOG] 3 ML PEN SC SCH (11:30)
[2018-11-18] MEDS: INSULIN ASPART [NOVOLOG] 3 ML PEN SC SCH ×3 (12:18→21:23)
[2018-11-18] MEDS: INSULIN GLARGINE [LANTus] (100 UNITS/ML) SYG SC SCH (12:22)
--- NOTE | 2018-11-18 14:01 | CONS ---
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 Will hold off on foot debridement and 5th digit amputation/possible partial ray resection until medically stable. Appreciate vascular surgery input. Continue with IV abx per recommendations. Continue with dressing changes to the left foot and offload with pillows to prevent heel ulcerations. Wound cultures showing klebsiella ESBL and stenotrophomonas maltophilia. Tight glycemic control. Consultation Date/Type/Reason Admit Date/Time Nov 04, 2018 at 07:34 Initial Consult Date Requesting Provider: KARL WOOD MD Date/Time of Note DATE: 11/18/18 TIME: 14:01 24 HR Interval Summary Free Text/Dictation Patient extubated but still confused. Exam/Review of Systems Exam Vitals Vital Signs Date Temp Pulse Resp B/P (MAP) Pulse Ox O2 O2 Flow FiO2 Time Delivery Rate 11/18/18 85 12:00 11/18/18 99 3.0 10:05 11/18/18 18 40 09:09 11/18/18 150/92 Mechanical 06:00 (111) Ventilator 11/18/18 98.6 04:00 Intake and Output 11/17/18 11/17/18 11/18/18 1414:59 22:59 06:59 IntakeIntake Total 465.0 ml 536.5 ml 553.0 ml OutputOutput Total 1200 ml 1200 ml 900 ml BalanceBalance -735.0 ml -663.5 ml -347.0 ml Exam Dressings to vascular bypass site Absent protective sensations Left foot 5th digit gangrene with exposed bone, mild erythema surrounding ulcer site and mild purulence appreciated to the ulcer site. Measured 2 x 1.5 x 0.5cm fibronecrotic wound bed. No proximal streaking Left hallux 0.5 x 0.6 x 0.2cm granular ulcer, no purulence, does not probe to bone. Left 2nd digit amputation site appreciated. Results Result Diagram: 11/18/18 0435 11/18/18 0435 Results 24hrs Laboratory Tests Test 11/17/18 14:24 11/17/18 16:33 11/17/18 18:12 11/17/18 20:24 Bedside Glucose 111 119 134 129 Test 11/17/18 22:19 7/1/19 00:32 11/18/18 02:11 11/18/18 03:54 Bedside Glucose 96 117 103 145 Test 11/18/18 04:35 11/18/18 06:03 11/18/18 08:04 11/18/18 09:30 White Blood Count 14.1 H Red Blood Count 3.30 L Hemoglobin 9.8 L Hematocrit 31.1 L Mean Corpuscular 94.2 Volume Mean Corpuscular 29.7 Hemoglobin Mean Corpuscular 31.5 L Hemoglobin Concen t Red Cell 14.0 Distribution Width Platelet Count 286 Mean Platelet 11.1 H Volume Immature 0.800 H Granulocytes % Neutrophils % 90.2 H Lymphocytes % 5.1 L Monocytes % 3.8 Eosinophils % 0.0 Basophils % 0.1 Nucleated Red 0.0 Blood Cells % Immature 0.110 H Granulocytes # Neutrophils # 12.7 H Lymphocytes # 0.7 L Monocytes # 0.5 Eosinophils # 0.0 Basophils # 0.0 Nucleated Red 0.0 Blood Cells # Sodium Level 144 Potassium Level 4.0 Chloride Level 103 Carbon Dioxide 32 H Level Anion Gap 9 Blood Urea 54 H Nitrogen Creatinine 1.19 Est Glomerular Filtrat Rate mL/min Glucose Level 142 Calcium Level 8.0 L Phosphorus Level 4.1 Magnesium Level 2.8 H Bedside Glucose 136 134 Blood Gas Blood arterial Specimen Source Arterial Blood 11/18/2018 9:30:24 Date Drawn AM Arterial Blood pH 7.456 H (Temp corrected) Arterial Blood 46.0 H pCO2 (Temp correct) Arterial Blood 98.6 H pO2 (Temp corrected) Arterial Blood 31.7 H HCO3 Arterial Blood 6.9 H Base Excess Arterial Blood 96.9 Oxygen Saturation Jeison Test ACCEPTAB Arterial Blood Left Radial Gas Puncture Site Arterial 0.4 Blood Carboxyhemo globin Arterial Blood 0.2 Methemoglobin Blood Gas A-a O2 133.7 H Differential Oxyhemoglobin 96.3 Percent Blood Gas 37.0 Temperature Blood Gas Actual 14 Respiration Rate Blood Gas VENT - CPAP Modality FiO2 40.0 Blood Gas Low 5.0 PEEP Setting Blood Gas 10 Pressure Support Blood Gas TM Notified Whom Blood Gas 11/18/2018 9:44:06 Notified Time AM Test 11/18/18 10:21 11/18/18 12:21 Bedside Glucose 103 147 Medications Medication Current Medications Ergocalciferol (Drisdol) 50,000 unit Sa PO Last administered on 11/09/18at 09:2 8; Admin Dose 50,000 UNIT; Start 11/09/18 at 09:00 Miscellaneous Medication (Bystolic) 20 mg DAILY PO Last administered on 11/11/18at 09:03; Admin Dose 20 MG; Start 11/04/18 at 09:00; Status Hold Clonidine (Catapres) 0.1 mg Q6H PRN PO SBP>160; Start 11/04/18 at 09:00 IV Flush (NS 3 ml) 3 ml PER PROTOCOL IV ; Start 11/04/18 at 09:00 Ondansetron HCl (Zofran Inj) 4 mg Q6H PRN IV NAUSEA/VOMITING; Start 11/04/18 at 09:00 Acetaminophen (Tylenol Tab) 650 mg Q6H PRN PO .PAIN 1-3 OR TEMP; Start 11/04/18 at 09:00 Miscellaneous Information 1 ea NOTE XX ; Start 11/04/18 at 09:00 Glucose (Glutose) 15 gm Q15M PRN PO DECREASED GLUCOSE; Start 11/04/18 at 09:00 Glucose (Glutose) 22.5 gm Q15M PRN PO DECREASED GLUCOSE; Start 11/04/18 at 09:00 Dextrose (D50w Syringe) 25 ml Q15M PRN IV DECREASED GLUCOSE; Start 11/04/18 at 09:00 Dextrose (D50w Syringe) 50 ml Q15M PRN IV DECREASED GLUCOSE; Start 11/04/18 at 09:00 Glucagon (Glucagen) 1 mg Q15M PRN IM DECREASED GLUCOSE; Start 11/04/18 at 09:00 Glucose (Glutose) 15 gm Q15M PRN BUCCAL DECREASED GLUCOSE; Start 11/04/18 at 09:00 Miscellaneous Information Patients own medicat... BID@10,16 XX Last administered on 11/10/18at 15:28; Admin Dose 1 EA; Start 11/04/18 at 16:00 Povidone Iodine (Povidone-Iodine) 1 applic BID TOP Last administered on 11/18/18a t 08:47; Admin Dose 1 APPLIC; Start 11/05/18 at 21:00 Sodium Hypochlorite (Dakins Diluted ()) 1 applic BID TP Last administered on 7/1/19at 08:47; Admin Dose 1 APPLIC; Start 11/07/18 at 09:00 Hydralazine HCl (Apresoline) 10 mg Q4H PRN IV sbp >160 Last administered on 11/08/18 08:59; Admin Dose 10 MG; Start 11/08/18 at 09:00 Famotidine (Pepcid) 20 mg DAILY NGT Last administered on 11/18/18 08:45; Admin Dose 20 MG; Start 11/11/18 at 09:30 Fentanyl 100 ml @ 2.5 mls/hr TITRATE IV Last administered on 11/18/18 00:24; Admin Dose 7.5 MLS/HR; Start 11/11/18 at 09:30 Midazolam HCl 50 ml @ 1 mls/hr TITRATE IV Last administered on 11/18/18 01:29; Admin Dose 9 MLS/HR; Start 11/11/18 at 10:30 Albuterol (Ventolin Hfa) 2 puff Q6H RESP THERAPY INH Last administered on 11/18/18 03:25; Admin Dose 2 PUFF; Start 11/11/18 at 20:00 Ipratropium [place] (Atrovent Hfa) 4 puff Q6H RESP THERAPY INH Last administered on 11/18/18 03:25; Admin Dose 4 PUFF; Start 11/11/18 at 20:00 Atropine Sulfate (Atropine) 0.5 mg PRN PRN IV SYMPTOMATIC BRADYCARDIA; Start 11/11/18 at 23:00 Aspirin (Aspirin) 325 mg DAILY GTB Last administered on 11/18/18 08:45; Admin Dose 325 MG; Start 11/13/18 at 09:00 Clopidogrel Bisulfate (plaVIX) 75 mg DAILY GTB Last administered on 11/18/18 08:45; Admin Dose 75 MG; Start 11/13/18 at 09:00 Atorvastatin Calcium (Lipitor) 20 mg QHS GTB Last administered on 11/17/18 20:25; Admin Dose 20 MG; Start 11/13/18 at 21:00 Gabapentin (Neurontin Liquid) 300 mg BID GTB Last administered on 11/18/18 08:46; Admin Dose 300 MG; Start 11/13/18 at 09:00 Hydralazine HCl (Apresoline) 100 mg TID GTB Last administered on 11/18/18at 08:46; Admin Dose 100 MG; Start 11/13/18 at 09:00 Heparin Sodium (Porcine) (Heparin (5000 Units/1ml)) 5,000 unit BID SC Last administered on 11/18/18 08:51; Admin Dose 5,000 UNIT; Start 11/14/18 at 21:00 Bisacodyl (Dulcolax Supp) 10 mg DAILY PRN [place] CONSTIPATION Last administered on 11/14/18at 16:43; Admin Dose 10 MG; Start 11/14/18 at 16:30 Dextrose (D50w Syringe) 25 ml Q15M PRN IV .DECREASED GLUCOSE; Start 11/15/18 at 06:30 Dextrose (D50w Syringe) 50 ml Q15M PRN IV .DECREASED GLUCOSE; Start 11/15/18 at 06:30 Methylprednisolone Sodium Succinate (Solu-Medrol) 40 mg Q12 IV Last administered on 11/18/18at 08:45; Admin Dose 40 MG; Start 11/15/18 at 11:30 Meropenem/Sodium Chloride 50 ml @ 100 mls/hr Q12 IVPB Last administered on 11/18/18at 08:48; Admin Dose 100 MLS/HR; Start 11/15/18 at 14:30 IV Flush (NS 10 ml) 10 ml PRN PRN IV FLUSH LINE; Start 11/15/18 at 15:30 Furosemide (Lasix) 40 mg DAILY@0600 IV Last administered on 11/18/18at 05:26; A dmin Dose 40 MG; Start 11/17/18 at 06:00; Status Hold Fluconazole (Diflucan) 100 mg DAILY PO Last administered on 11/18/18at 08:45; Admin Dose 100 MG; Start 11/16/18 at 14:00 Polyethylene Glycol (Miralax) 17 gm DAILY PRN NGT constipation; Start 11/17/18 at 09:00 Senna/Docusate Sodium (Senokot-S) 1 tab BID PRN NGT constipation; Start 11/17/18 at 09:00 Levofloxacin (Levaquin) 250 mg DAILY@06 NGT Last administered on 11/18/18at 05:26; Admin Dose 250 MG; Start 11/18/18 at 06:00 Amlodipine Besylate (Norvasc) 5 mg DAILY PO ; Start 11/19/18 at 09:00 Diagnostic Test (Pha) (Accu-Chek) 1 ea 02 XX ; Start 11/19/18 at 02:00 Insulin Glargine (Lantus) 10 units DAILY@0800 SC Last administered on 11/18/18at 12:22; Admin Dose 10 UNITS; Start 11/18/18 at 12:30 Insulin Aspart (Novolog Insulin Pen) NOVOLOG *MILD* ALGORITHM Q4 SC ; Start 11/18/18 at 13:00 Dextrose/Sodium Chloride 1,000 ml @ 40 mls/hr Q24H IV Last administered on 11/18/18at 12:08; Admin Dose 40 MLS/HR; Start 11/18/18 at 11:00 IVELISSE BLACKWELL DPM Nov 18, 2018 14:01
--- NOTE | 2018-11-18 14:14 | CONS ---
Assessment/Plan Assessment/Plan Hospital Course (Demo Recall) Patient was extubated he is awake looks comfortable no fevers overnight WBC 14.1 platelets 286 neutrophils 90.2 BUN 54 creatinine 1.19 Endotracheal aspirate grew Alice albicans, left foot wound culture grew Klebsiella pneumoniae ESBL and Stenotrophomonas maltophilia Antimicrobials: Meropenem, Levaquin, fluconazole Indwelling: Endotracheal tube, NG tube, Vora, PICC line Physical examination: Well-developed elderly man who is in no distress head atraumatic normocephalic neck is supple chest rise symmetrical breath sounds diminished bases heart S1-S2 abdomen soft bowel sounds present extremities with left foot dressing intact Assessment: 1. Status post cardiac arrest 2. Non-ST elevation [place] 3. Acute respiratory failure, possibly aspirated 4. Left foot gangrene 5. Peripheral arterial disease status post left femoral to posterior tibial bypass 11/08/18 6. Diabetes 7. History of left foot second toe amputation 8. Acute kidney insufficiency Plan: Stable post extubation, continue antibiotics, wound care per podiatry Consultation Date/Type/Reason Admit Date/Time Nov 04, 2018 at 07:34 Initial Consult Date Type of Consult id Requesting Provider: KARL WOOD MD Date/Time of Note DATE: 11/18/18 TIME: 14:13 Exam/Review of Systems Exam Vitals Vital Signs Date Temp Pulse Resp B/P (MAP) Pulse Ox O2 O2 Flow FiO2 Time Delivery Rate 11/18/18 90 26 183/83 97 Mechanical 14:00 (116) Ventilator 11/18/18 98.2 12:00 11/18/18 3.0 10:05 11/18/18 40 09:09 Intake and Output 11/17/18 11/17/18 11/18/18 1515:00 23:00 07:00 IntakeIntake Total 463.0 ml 504.0 ml 616.5 ml OutputOutput Total 1300 ml 1000 ml 1100 ml BalanceBalance -837.0 ml -496.0 ml -483.5 ml Results Result Diagram: 11/18/18 0435 11/18/18 0435 Results 24hrs Laboratory Tests Test 11/17/18 14:24 11/17/18 16:33 11/17/18 18:12 11/17/18 20:24 Bedside Glucose 111 119 134 129 Test 11/17/18 22:19 11/18/18 00:32 11/18/18 02:11 11/18/18 03:54 Bedside Glucose 96 117 103 145 Test 11/18/18 04:35 11/18/18 06:03 11/18/18 08:04 11/18/18 09:30 White Blood Count 14.1 H Red Blood Count 3.30 L Hemoglobin 9.8 L Hematocrit 31.1 L Mean Corpuscular 94.2 Volume Mean Corpuscular 29.7 Hemoglobin Mean Corpuscular 31.5 L Hemoglobin Concen t Red Cell 14.0 Distribution Width Platelet Count 286 Mean Platelet 11.1 H Volume Immature 0.800 H Granulocytes % Neutrophils % 90.2 H Lymphocytes % 5.1 L Monocytes % 3.8 Eosinophils % 0.0 Basophils % 0.1 Nucleated Red 0.0 Blood Cells % Immature 0.110 H Granulocytes # Neutrophils # 12.7 H Lymphocytes # 0.7 L Monocytes # 0.5 Eosinophils # 0.0 Basophils # 0.0 Nucleated Red 0.0 Blood Cells # Sodium Level 144 Potassium Level 4.0 Chloride Level 103 Carbon Dioxide 32 H Level Anion Gap 9 Blood Urea 54 H Nitrogen Creatinine 1.19 Est Glomerular Filtrat Rate mL/min Glucose Level 142 Calcium Level 8.0 L Phosphorus Level 4.1 Magnesium Level 2.8 H Bedside Glucose 136 134 Blood Gas Blood arterial Specimen Source Arterial Blood 11/18/2018 9:30:24 Date Drawn AM Arterial Blood pH 7.456 H (Temp corrected) Arterial Blood 46.0 H pCO2 (Temp correct) Arterial Blood 98.6 H pO2 (Temp corrected) Arterial Blood 31.7 H HCO3 Arterial Blood 6.9 H Base Excess Arterial Blood 96.9 Oxygen Saturation Jeison Test ACCEPTAB Arterial Blood Left Radial Gas Puncture Site Arterial 0.4 Blood Carboxyhemo globin Arterial Blood 0.2 Methemoglobin Blood Gas A-a O2 133.7 H Differential Oxyhemoglobin 96.3 Percent Blood Gas 37.0 Temperature Blood Gas Actual 14 Respiration Rate Blood Gas VENT - CPAP Modality FiO2 40.0 Blood Gas Low 5.0 PEEP Setting Blood Gas 10 Pressure Support Blood Gas TM Notified Whom Blood Gas 11/18/2018 9:44:06 Notified Time AM Test 11/18/18 10:21 11/18/18 12:21 Bedside Glucose 103 147 Medications Medication Current Medications Ergocalciferol (Drisdol) 50,000 unit Sa PO Last administered on 11/09/18at 09:28; Admin Dose 50,000 UNIT; Start 11/09/18 at 09:00 Miscellaneous Medication (Bystolic) 20 mg DAILY PO Last administered on 11/11/18at 09:03; Admin Dose 20 MG; Start 11/04/18 at 09:00; Status Hold Clonidine (Catapres) 0.1 mg Q6H PRN PO SBP>160; Start 11/04/18 at 09:00 IV Flush (NS 3 ml) 3 ml PER PROTOCOL IV ; Start 11/04/18 at 09:00 Ondansetron HCl (Zofran Inj) 4 mg Q6H PRN IV NAUSEA/VOMITING; Start 11/04/18 at 09:00 Acetaminophen (Tylenol Tab) 650 mg Q6H PRN PO .PAIN 1-3 OR TEMP; Start 11/04/18 at 09:00 Miscellaneous Information 1 ea NOTE XX ; Start 11/04/18 at 09:00 Glucose (Glutose) 15 gm Q15M PRN PO DECREASED GLUCOSE; Start 11/04/18 at 09:00 Glucose (Glutose) 22.5 gm Q15M PRN PO DECREASED GLUCOSE; Start 11/04/18 at 09:00 Dextrose (D50w Syringe) 25 ml Q15M PRN IV DECREASED GLUCOSE; Start 11/04/18 at 09:00 Dextrose (D50w Syringe) 50 ml Q15M PRN IV DECREASED GLUCOSE; Start 11/04/18 at 09:00 Glucagon (Glucagen) 1 mg Q15M PRN IM DECREASED GLUCOSE; Start 11/04/18 at 09:00 Glucose (Glutose) 15 gm Q15M PRN BUCCAL DECREASED GLUCOSE; Start 11/04/18 at 09:00 Miscellaneous Information Patients own medicat... BID@10,16 XX Last administered on 11/10/18at 15:28; Admin Dose 1 EA; Start 11/04/18 at 16:00 Povidone Iodine (Povidone-Iodine) 1 applic BID TOP Last administered on 11/18/18at 08:47; Admin Dose 1 APPLIC; Start 11/05/18 at 21:00 Sodium Hypochlorite (Dakins Diluted ()) 1 applic BID TP Last administered on 11/18/18at 08:47; Admin Dose 1 APPLIC; Start 11/07/18 at 09:00 Hydralazine HCl (Apresoline) 10 mg Q4H PRN IV sbp >160 Last administered on 11/08/18 08:59; Admin Dose 10 MG; Start 11/08/18 at 09:00 Famotidine (Pepcid) 20 mg DAILY NGT Last administered on 11/18/18 08:45; Admin Dose 20 MG; Start 11/11/18 at 09:30 Fentanyl 100 ml @ 2.5 mls/hr TITRATE IV Last administered on 11/18/18 00:24; Admin Dose 7.5 MLS/HR; Start 11/11/18 at 09:30 Midazolam HCl 50 ml @ 1 mls/hr TITRATE IV Last administered on 11/18/18 01:29; Admin Dose 9 MLS/HR; Start 11/11/18 at 10:30 Albuterol (Ventolin Hfa) 2 puff Q6H RESP THERAPY INH Last administered on 11/18/18 03:25; Admin Dose 2 PUFF; Start 11/11/18 at 20:00 Ipratropium [place] (Atrovent Hfa) 4 puff Q6H RESP THERAPY INH Last administered on 11/18/18 03:25; Admin Dose 4 PUFF; Start 11/11/18 at 20:00 Atropine Sulfate (Atropine) 0.5 mg PRN PRN IV SYMPTOMATIC BRADYCARDIA; Start 11/11/18 at 23:00 Aspirin (Aspirin) 325 mg DAILY GTB Last administered on 11/18/18 08:45; Admin Dose 325 MG; Start 11/13/18 at 09:00 Clopidogrel Bisulfate (plaVIX) 75 mg DAILY GTB Last administered on 11/18/18 08:45; Admin Dose 75 MG; Start 11/13/18 at 09:00 Atorvastatin Calcium (Lipitor) 20 mg QHS GTB Last administered on 11/17/18 20:25; Admin Dose 20 MG; Start 11/13/18 at 21:00 Gabapentin (Neurontin Liquid) 300 mg BID GTB Last administered on 11/18/18 08:46; Admin Dose 300 MG; Start 11/13/18 at 09:00 Hydralazine HCl (Apresoline) 100 mg TID GTB Last administered on 11/18/18 08:46; Admin Dose 100 MG; Start 11/13/18 at 09:00 Heparin Sodium (Porcine) (Heparin (5000 Units/1ml)) 5,000 unit BID SC Last administered on 11/18/18at 08:51; Admin Dose 5,000 UNIT; Start 11/14/18 at 21:00 Bisacodyl (Dulcolax Supp) 10 mg DAILY PRN NE CONSTIPATION Last administered on 11/14/18at 16:43; Admin Dose 10 MG; Start 11/14/18 at 16:30 Dextrose (D50w Syringe) 25 ml Q15M PRN IV .DECREASED GLUCOSE; Start 11/15/18 at 06:30 Dextrose (D50w Syringe) 50 ml Q15M PRN IV .DECREASED GLUCOSE; Start 11/15/18 at 06:30 Methylprednisolone Sodium Succinate (Solu-Medrol) 40 mg Q12 IV Last administered on 11/18/18at 08:45; Admin Dose 40 MG; Start 11/15/18 at 11:30 Meropenem/Sodium Chloride 50 ml @ 100 mls/hr Q12 IVPB Last administered on 11/18/18at 08:48; Admin Dose 100 MLS/HR; Start 11/15/18 at 14:30 IV Flush (NS 10 ml) 10 ml PRN PRN IV FLUSH LINE; Start 11/15/18 at 15:30 Furosemide (Lasix) 40 mg DAILY@0600 IV Last administered on 11/18/18at 05:26; Admin Dose 40 MG; Start 11/17/18 at 06:00; Status Hold Fluconazole (Diflucan) 100 mg DAILY PO Last administered on 11/18/18at 08:45; Admin Dose 100 MG; Start 11/16/18 at 14:00 Polyethylene Glycol (Miralax) 17 gm DAILY PRN NGT constipation; Start 11/17/18 at 09:00 Senna/Docusate Sodium (Senokot-S) 1 tab BID PRN NGT constipation; Start 11/17/18 at 09:00 Levofloxacin (Levaquin) 250 mg DAILY@06 NGT Last administered on 11/18/18at 05:26; Admin Dose 250 MG; Start 11/18/18 at 06:00 Amlodipine Besylate (Norvasc) 5 mg DAILY PO ; Start 11/19/18 at 09:00 Diagnostic Test (Pha) (Accu-Chek) 1 XX ; Start 11/19/18 at 02:00 Insulin Glargine (Lantus) 10 units DAILY@0800 SC Last administered on 11/18/18at 12:22; Admin Dose 10 UNITS; Start 11/18/18 at 12:30 Insulin Aspart (Novolog Insulin Pen) NOVOLOG *MILD* ALGORITHM Q4 SC ; Start 11/18/18 at 13:00 Dextrose/Sodium Chloride 1,000 ml @ 40 mls/hr Q24H IV Last administered on 11/18/18at 12:08; Admin Dose 40 MLS/HR; Start 11/18/18 at 11:00 HERRERA MURILLO NP Nov 18, 2018 14:14
[2018-11-18] MEDS: hydrALAzine 20 MG INJ IV PRN (14:28)
[2018-11-18] MEDS ORDERED: ATORVASTATIN 20 MG TAB PO SCH (21:00)
[2018-11-18] MEDS: SOD CHLORIDE 0.45% 1,000 ML IV SCH (22:09)
[2018-11-18] MEDS: GABAPENTIN (50 MG/ML PO SYG) PO SCH (22:27)
[2018-11-19] VITALS (23 sets, daily range): BP systolic 133–178; BP diastolic 69–96; PULSE 65–96; RESP 17–27
[2018-11-19] MEDS: INSULIN ASPART [NOVOLOG] 3 ML PEN SC SCH ×6 (01:11→22:03)
[2018-11-19] MEDS: hydrALAzine 20 MG INJ IV PRN ×2 (01:35→05:33)
[2018-11-19] MEDS: ACCU-CHEK XX SCH (01:38)
[2018-11-19] MEDS ORDERED: ACCU-CHEK XX SCH (02:00)
[2018-11-19] MEDS: LEVOFLOXACIN 250 MG TAB PO SCH (05:31)
--- NOTE | 2018-11-19 08:28 | PN ---
DATE: 11/19/2018 SUBJECTIVE: The patient was extubated yesterday. Currently stable, no acute events noted. No hemop tysis, hematemesis or hematochezia. OBJECTIVE: VITAL SIGNS: Blood pressure is 163/69, respirations 17, pulse 78, temperature 98.6. HEENT: Head is normocephalic. NECK: Supple. HEART: Regular rate. LUNGS: Show diminished breath sounds at the base. ABDOMEN: Soft, nontender to palpation without rebound or guarding. EXTREMITIES: Negative for clubbing, cyanosis. Trace edema. DERMATOLOGIC: No rashes. MUSCULOSKELETAL: No joint effusion. NEUROLOGIC: No change in exam. MEDICATIONS: Have been reviewed. LABORATORY DATA: Has been reviewed. IMAGING STUDIES: Have been reviewed. ASSESSMENT AND PLAN: 1. Nonoliguric acute kidney injury. Etiology is secondary to hemodynamics, tubular injury. The pat ient's renal function has stabilized. Continue current treatment plan, dose all meds, monitor closel y on diuretic therapy. 2. Volume overload secondary to acute kidney injury, diastolic heart failure. The patient had excel lent urinary output after Diamox was given in conjunction with loop diuretics. We will continue curr ent diuretic regimen of Lasix. Will add intermittent metolazone and/or Diamox as needed. 3. Anemia. Monitor hemoglobin and hematocrit levels. 4. Mineral bone disorder, monitor calcium and phosphorus levels. 5. Mixed acid base disorder. The patient has metabolic alkalosis, respiratory alkalosis. The patie nt is status post Diamox. Continue to monitor. ABG as needed. 6. Respiratory failure, status post extubation. Continue to monitor. Follow up with pulmonary. 7. Arrhythmia. Continue to monitor. 8. Peripheral vascular disease status post iliofemoral bypass. 9. Hypertension. Continue current blood pressure regimen. 10. Dyslipidemia. Continue statin therapy. 11. Acute encephalopathy, etiology is toxic metabolic. 12. Status post cardiac arrest. Dictated By: JEAN CLAUDE LARIOS DO NR/BOBO Conf#: [id number] DID#: [id number] CC: TOMASA SCOTT;*EndCC*
--- NOTE | 2018-11-19 08:40 | CONS ---
Consult Date/Type/Reason Admit Date/Time Nov 04, 2018 at 07:34 Initial Consult Date 11/11/18 Type of Consultation: Urology Requesting Provider: KARL WOOD MD Date/Time of Note DATE: 11/19/18 TIME: 08:38 Subjective NO acute events - pt extubated - tolerated well - more alert now - improved fluid satis - con;t to follow. ROS: No fever, no chills, no nausea, no vomiting, no diarrhea/constipation No recent weight changes No chest pain, no PND, no orthopnea - improved SOB No dizziness, blurred vision No thirst, no heat or cold intolerance Objective Vitals Vital Signs Date Temp Pulse Resp B/P (MAP) Pulse Ox O2 O2 Flow FiO2 Time Delivery Rate 11/19/18 88 17 163/69 97 Nasal 4.0 06:00 (100) Cannula 11/19/18 98.6 04:00 11/18/18 40 09:09 Intake and Output 11/18/18 11/18/18 11/19/18 1515:00 23:00 07:00 IntakeIntake Total 416.0 ml 380 ml 380 ml OutputOutput Total 1800 ml 1880 ml 1510 ml BalanceBalance -1384.0 ml -1500 ml -1130 ml Exam General: WN/WD/NAD, AOx 2-3 much better HEENT: Unicetric/atraumatic/EOMI ( follow commands) - EXTUBATED NECK: JVD elevated, no thyromegaly Lymph: no lymphadenopathy HEART: regular with no S3, II/ systolic murmur at apex LUNGS: Coarse sounds ABD: soft, NT, ND, +BS : Intact Neuro: non focal SKIN: chronic changes EXT: trace edema., wounds Results/Medications Result Diagram: 11/19/18 0433 11/19/18 0429 Results 24 hrs Laboratory Tests Test 11/18/18 09:30 11/18/18 10:21 11/18/18 12:21 11/18/18 17:37 Blood Gas Specimen Blood arterial Source Arterial Blood 11/18/2018 9:30:24 Date Drawn AM Arterial Blood pH 7.456 H (Temp corrected) Arterial Blood 46.0 H pCO2 (Temp correct) Arterial Blood pO2 98.6 H (Temp corrected) Arterial Blood 31.7 H HCO3 Arterial Blood 6.9 H Base Excess Arterial Blood 96.9 Oxygen Saturation Jeison Test ACCEPTAB Arterial Blood Gas Left Radial Puncture Site Arterial 0.4 Blood Carboxyhemog lobin Arterial Blood 0.2 Methemoglobin Blood Gas A-a O2 133.7 H Differential Oxyhemoglobin 96.3 Percent Blood Gas 37.0 Temperature Blood Gas Actual 14 Respiration Rate Blood Gas Modality VENT - CPAP FiO2 40.0 Blood Gas Low PEEP 5.0 Setting Blood Gas Pressure 10 Support Blood Gas Notified TM Whom Blood Gas Notified 11/18/2018 9:44:06 Time AM Bedside Glucose 103 147 252 H Test 11/18/18 21:19 11/19/18 01:08 11/19/18 04:29 11/19/18 04:33 Bedside Glucose 284 H 248 H Sodium Level 139 Potassium Level 4.7 Chloride Level 103 Carbon Dioxide 25 Level Anion Gap 11 Blood Urea 47 H Nitrogen Creatinine 1.24 Est Glomerular Filtrat Rate mL/min Glucose Level 291 #H Calcium Level 8.1 L Phosphorus Level 4.7 Magnesium Level 2.7 H White Blood Count 20.2 #H Red Blood Count 3.67 L Hemoglobin 10.9 L Hematocrit 34.1 L Mean Corpuscular 92.9 Volume Mean Corpuscular 29.7 Hemoglobin Mean Corpuscular 32.0 Hemoglobin Concent Red Cell 14.2 Distribution Width Platelet Count 391 # Mean Platelet 10.7 H Volume Immature 2.000 H Granulocytes % Neutrophils % 88.5 H Lymphocytes % 3.9 L Monocytes % 5.5 Eosinophils % 0.0 Basophils % 0.1 Nucleated Red 0.0 Blood Cells % Immature 0.410 H Granulocytes # Neutrophils # 17.9 H Lymphocytes # 0.8 Monocytes # 1.1 H Eosinophils # 0.0 Basophils # 0.0 Nucleated Red 0.0 Blood Cells # Test 11/19/18 05:11 Bedside Glucose 267 H Home Meds Active Scripts Silver Sulfadiazine* (Silvadene*) 1% - 20 Gm Cream.gm., 1 APPLIC TOP DAILY, #1 TUB Prov:SINGHJESSIE CANTU MD 06/12/18 Amoxicillin-Clavulanate K* (Augmentin*) 875 Mg Tab, 875 MG PO BID, #28 TAB Prov:AMANDA GOMEZ MD 06/08/14 Reported Medications Insulin Aspart (Novolog Mix (70/30)) 100 Units/Ml Soln, 28 SC with diinner, VIAL 11/04/18 Insulin Aspart (Novolog Mix (70/30)) 100 Units/Ml Soln, 38 SC WITH BREAKFAST, VIAL 11/04/18 Benazepril Hcl* (Benazepril Hcl*) 40 Mg Tablet, 40 MG PO DAILY, #30 TAB 11/04/18 Ergocalciferol (Vitamin D2) (VITAMIN D2) 50,000 Unit Capsule, 09012 UNIT PO weekly for saturdays, CAP 11/04/18 Omeprazole* (Omeprazole*) 20 Mg Capsule.dr, 20 MG PO DAILY, #30 CAP 11/04/18 Aspirin* (Aspirin* EC) 81 Mg Tablet.dr, 81 MG PO DAILY, TAB 11/04/18 Gabapentin* (Gabapentin*) 300 Mg Capsule, 300 MG PO BID, #60 CAP 11/04/18 Nebivolol Hcl* (Bystolic*) 20 Mg Tablet, 20 MG PO DAILY, #30 TAB 11/04/18 Atorvastatin Calcium* (Atorvastatin Calcium*) 20 Mg Tablet, 20 MG PO QHS, #30 TAB 11/04/18 Sulfasalazine (Azulfidine) 500 Mg Tab, 1000 MG PO TID, TAB 06/02/14 Medications Current Medications Ergocalciferol (Drisdol) 50,000 unit Sa PO Last administered on 11/09/18at 09:28; Admin Dose 50,000 UNIT; Start 11/09/18 at 09:00 Miscellaneous Medication (Bystolic) 20 mg DAILY PO Last administered on 11/11/18at 09:03; Admin Dose 20 MG; Start 11/04/18 at 09:00; Status Hold Clonidine (Catapres) 0.1 mg Q6H PRN PO SBP>160 Last administered on 11/19/18at 03:04; Admin Dose 0.1 MG; Start 11/04/18 at 09:00 IV Flush (NS 3 ml) 3 ml PER PROTOCOL IV ; Start 11/04/18 at 09:00 Ondansetron HCl (Zofran Inj) 4 mg Q6H PRN IV NAUSEA/VOMITING; Start 11/04/18 at 09:00 Acetaminophen (Tylenol Tab) 650 mg Q6H PRN PO .PAIN 1-3 OR TEMP; Start 11/04/18 at 09:00 Miscellaneous Information 1 ea NOTE XX ; Start 11/04/18 at 09:00 Glucose (Glutose) 15 gm Q15M PRN PO DECREASED GLUCOSE; Start 11/04/18 at 09:00 Glucose (Glutose) 22.5 gm Q15M PRN PO DECREASED GLUCOSE; Start 11/04/18 at 09:00 Dextrose (D50w Syringe) 25 ml Q15M PRN IV DECREASED GLUCOSE; Start 11/04/18 at 09:00 Dextrose (D50w Syringe) 50 ml Q15M PRN IV DECREASED GLUCOSE; Start 11/04/18 at 09:00 Glucagon (Glucagen) 1 mg Q15M PRN IM DECREASED GLUCOSE; Start 11/04/18 at 09:00 Glucose (Glutose) 15 gm Q15M PRN BUCCAL DECREASED GLUCOSE; Start 11/04/18 at 09:00 Miscellaneous Information Patients own medicat... BID@10,16 XX Last admi nistered on 11/18/18at 16:00; Admin Dose 1 EA; Start 11/04/18 at 16:00 Povidone Iodine (Povidone-Iodine) 1 applic BID TOP Last administered on 11/18/18 21:33; Admin Dose 1 APPLIC; Start 11/05/18 at 21:00 Sodium Hypochlorite (Dakins Diluted ()) 1 applic BID TP Last administered on 11/18/18 21:33; Admin Dose 1 APPLIC; Start 11/07/18 at 09:00 Hydralazine HCl (Apresoline) 10 mg Q4H PRN IV sbp >160 Last administered on 11/19/18 05:33; Admin Dose 10 MG; Start 11/08/18 at 09:00 Famotidine (Pepcid) 20 mg DAILY NGT Last administered on 11/18/18 08:45; Admin Dose 20 MG; Start 11/11/18 at 09:30 Fentanyl 100 ml @ 2.5 mls/hr TITRATE IV Last administered on 11/18/18 00:24; Admin Dose 7.5 MLS/HR; Start 11/11/18 at 09:30 Midazolam HCl 50 ml @ 1 mls/hr TITRATE IV Last administered on 11/18/18 01:29; Admin Dose 9 MLS/HR; Start 11/11/18 at 10:30 Atropine Sulfate (Atropine) 0.5 mg PRN PRN IV SYMPTOMATIC BRADYCARDIA; Start 11/11/18 at 23:00 Aspirin (Aspirin) 325 mg DAILY GTB Last administered on 11/18/18 08:45; Admin Dose 325 MG; Start 11/13/18 at 09:00 Clopidogrel Bisulfate (plaVIX) 75 mg DAILY GTB Last administered on 11/18/18 08:45; Admin Dose 75 MG; Start 11/13/18 at 09:00 Heparin Sodium (Porcine) (Heparin (5000 Units/1ml)) 5,000 unit BID SC Last administered on 11/18/18 21:22; Admin Dose 5,000 UNIT; Start 11/14/18 at 21:00 Bisacodyl (Dulcolax Supp) 10 mg DAILY PRN [place] CONSTIPATION Last administered on 11/14/18at 16:43; Admin Dose 10 MG; Start 11/14/18 at 16:30 Dextrose (D50w Syringe) 25 ml Q15M PRN IV .DECREASED GLUCOSE; Start 11/15/18 at 06:30 Dextrose (D50w Syringe) 50 ml Q15M PRN IV .DECREASED GLUCOSE; Start 11/15/18 at 06:30 Methylprednisolone Sodium Succinate (Solu-Medrol) 40 mg Q12 IV Last administered on 11/18/18 21:20; Admin Dose 40 MG; Start 11/15/18 at 11:30 Meropenem/Sodium Chloride 50 ml @ 100 mls/hr Q12 IVPB Last administered on 11/18/18 21:20; Admin Dose 100 MLS/HR; Start 11/15/18 at 14:30 IV Flush (NS 10 ml) 10 ml PRN PRN IV FLUSH LINE; Start 11/15/18 at 15:30 Furosemide (Lasix) 40 mg DAILY@0600 IV Last administered on 11/18/18 05:26; Admin Dose 40 MG; Start 11/17/18 at 06:00 Fluconazole (Diflucan) 100 mg DAILY PO Last administered on 11/18/18 08:45; Admin Dose 100 MG; Start 11/16/18 at 14:00 Polyethylene Glycol (Miralax) 17 gm DAILY PRN NGT constipation; Start 11/17/18 at 09:00 Senna/Docusate Sodium (Senokot-S) 1 tab BID PRN NGT constipation; Start 11/17/18 at 09:00 Amlodipine Besylate (Norvasc) 5 mg DAILY PO ; Start 11/19/18 at 09:00 Diagnostic Test (Pha) (Accu-Chek) 1 ea 02 XX ; Start 11/19/18 at 02:00 Insulin Glargine (Lantus) 10 units DAILY@0800 SC Last administered on 11/18/18at 12:22; Admin Dose 10 UNITS; Start 11/18/18 at 12:30 Atorvastatin Calcium (Lipitor) 20 mg QHS PO Last administered on 11/18/18at 21:21; Admin Dose 20 MG; Start 11/18/18 at 21:00 Gabapentin (Neurontin Liquid) 300 mg BID PO Last administered on 11/18/18at 22:27; Admin Dose 300 MG; Start 11/18/18 at 21:00 Hydralazine HCl (Apresoline) 100 mg TID PO Last administered on 11/18/18at 21:21; Admin Dose 100 MG; Start 11/18/18 at 21:00 Levofloxacin (Levaquin) 250 mg DAILY@06 PO Last administered on 11/19/18at 05:31; Admin Dose 250 MG; Start 11/19/18 at 06:00 Sodium Chloride 1,000 ml @ 40 mls/hr Q24H IV Last administered on 11/18/18at 22:09; Admin Dose 40 MLS/HR; Start 11/18/18 at 22:00 Diagnostic Test (Pha) (Accu-Chek) 1 ea 02 XX ; Start 11/20/18 at 02:00 Insulin Aspart (Novolog Insulin Pen) NOVOLOG *MODERATE* ALGORI... Q4 SC ; Start 11/19/18 at 09:00 Assessment/Plan Hospital Course (Demo Recall) 1. Preoperative evaluation prior to possible need for peripheral revascularization surgery.-neg trop x 3 and NL EF by echo with no sig valve abnl - s/p decomp[ensation and CODE Blue - pt was rossana last night, now in sinus -now extubated., more alert, HR controlled. 2. Peripheral arterial disease with nonhealing gangrenous changes in left toe ulceration - post op now. Treated. 3. Hypertension, under reasonable control on current medications. NOw stable. Will allow fpr now. BETTER now. 4. Dyslipidemia. 5. Diabetes mellitus- con't to keep euglycemic 6. s/p cardiopulmonary arrest - con't resp Rx - pulmonary follows - reasonable saturation now 7. Bradycardic intermittenjt by tele - now back to sinus - will monitor - dopa gtt if sustained rossana. Now stable. NO indication for pacer now 8. Positive troponin after arrest-? secondary to or primary to arrest - no intervention planned now. 9. Anemia - H/H stableat 10.9 - no bleeding now, RAJI BROWNE MD Nov 19, 2018 08:40
[2018-11-19] MEDS: ASPIRIN 325 MG TAB GTB SCH (08:54)
[2018-11-19] MEDS: MEROPENEM 500MG/50 ML (PMX) 50 ML IVPB SCH ×2 (08:54→21:47)
[2018-11-19] MEDS: METHYLPREDNISOLONE 40 MG INJ IV SCH (08:54)
[2018-11-19] MEDS: AMLODIPINE 5 MG TAB PO SCH (08:54)
[2018-11-19] MEDS: FLUCONAZOLE 100 MG TAB PO SCH (08:55)
[2018-11-19] MEDS: FAMOTIDINE 20 MG TAB NGT SCH (08:55)
[2018-11-19] MEDS: CLOPIDOGREL 75 MG TAB GTB SCH (08:55)
[2018-11-19] MEDS: INSULIN GLARGINE [LANTus] (100 UNITS/ML) SYG SC SCH (09:06)
[2018-11-19] MEDS: HEPARIN 5,000 UNIT/1 ML VIAL SC SCH ×2 (09:06→22:04)
[2018-11-19] MEDS: GABAPENTIN (50 MG/ML PO SYG) PO SCH ×2 (09:10→22:33)
[2018-11-19] MEDS: POVIDONE IODINE 10% 28.4 GM OINT TOP SCH ×2 (09:11→21:31)
[2018-11-19] MEDS: DAKINS 0.0125%(1/40) 473 ML SOLUTION TP SCH ×2 (09:11→21:31)
[2018-11-19] MEDS: LABETALOL HCL 20MG INJ IV PRN ×2 (10:11→19:13)
--- NOTE | 2018-11-19 11:24 | CONS ---
Consult Date/Type/Reason Admit Date/Time Nov 04, 2018 at 07:34 Initial Consult Date 11/11/18 Type of Consult Pulmonary Requesting Provider: KARL WOOD MD Date/Time of Note DATE: 11/19/18 TIME: 11:21 Subjective Patient stable no new events. Safely extubated but still somewhat confused. Objective Vital Signs Date Temp Pulse Resp B/P (MAP) Pulse Ox O2 O2 Flow FiO2 Time Delivery Rate 11/19/18 83 08:00 11/19/18 17 163/69 97 Nasal 4.0 06:00 (100) Cannula 11/19/18 98.6 04:00 11/18/18 40 09:09 Intake and Output 11/18/18 11/18/18 11/19/18 1515:00 23:00 07:00 IntakeIntake Total 416.0 ml 380 ml 380 ml OutputOutput Total 1800 ml 1880 ml 1510 ml BalanceBalance -1384.0 ml -1500 ml -1130 ml Exam GENERAL: Well-nourished, well-developed gentleman, orally intubated on mechanical ventilation, appears comfortable at rest, no acute distress. VITAL SIGNS: NECK: Supple. No JVD or lymphadenopathy. CARDIAC: S1, S2, no added sounds or murmurs. CHEST: Diminished air entry bilaterally. ABDOMEN: Soft, nontender. No guarding or rebound. EXTREMITIES: No cyanosis, clubbing, 1+ edema. NEUROLOGIC: Generalized weakness. Vent Setting Ventilator Support Mode: CPAP, PS, SPONT Fraction of Inspired Oxygen pe: 40 Positive End Expiratory Pressu: 5.0 Results/Medications Result Diagram: 11/19/18 0433 11/19/18 0429 Results 24 hrs Laboratory Tests Test 11/18/18 12:21 11/18/18 17:37 11/18/18 21:19 11/19/18 01:08 Bedside Glucose 147 252 H 284 H 248 H Test 11/19/18 04:29 11/19/18 04:33 11/19/18 05:11 11/19/18 08:56 Sodium Level 139 Potassium Level 4.7 Chloride Level 103 Carbon Dioxide Level 25 Anion Gap 11 Blood Urea Nitrogen 47 H Creatinine 1.24 Est Glomerular Filtrat Rate mL/min Glucose Level 291 #H Calcium Level 8.1 L Phosphorus Level 4.7 Magnesium Level 2.7 H White Blood Count 20.2 #H Red Blood Count 3.67 L Hemoglobin 10.9 L Hematocrit 34.1 L Mean Corpuscular Volume 92.9 Mean Corpuscular 29.7 Hemoglobin Mean Corpuscular 32.0 Hemoglobin Concent Red Cell Distribution 14.2 Width Platelet Count 391 # Mean Platelet Volume 10.7 H Immature Granulocytes % 2.000 H Neutrophils % 88.5 H Lymphocytes % 3.9 L Monocytes % 5.5 Eosinophils % 0.0 Basophils % 0.1 Nucleated Red Blood 0.0 Cells % Immature Granulocytes # 0.410 H Neutrophils # 17.9 H Lymphocytes # 0.8 Monocytes # 1.1 H Eosinophils # 0.0 Basophils # 0.0 Nucleated Red Blood 0.0 Cells # Bedside Glucose 267 H 307 H Medications Current Medications Ergocalciferol (Drisdol) 50,000 unit Sa PO Last administered on 11/09/18at 09:28; Admin Dose 50,000 UNIT; Start 11/09/18 at 09:00 Miscellaneous Medication (Bystolic) 20 mg DAILY PO Last administered on 11/11/18at 09:03; Admin Dose 20 MG; Start 11/04/18 at 09:00; Status Hold Clonidine (Catapres) 0.1 mg Q6H PRN PO SBP>160 Last administered on 11/19/18at 03:04; Admin Dose 0.1 MG; Start 11/04/18 at 09:00 IV Flush (NS 3 ml) 3 ml PER PROTOCOL IV ; Start 11/04/18 at 09:00 Ondansetron HCl (Zofran Inj) 4 mg Q6H PRN IV NAUSEA/VOMITING; Start 11/04/18 at 09:00 Acetaminophen (Tylenol Tab) 650 mg Q6H PRN PO .PAIN 1-3 OR TEMP; Start 11/04/18 at 09:00 Miscellaneous Information 1 ea NOTE XX ; Start 11/04/18 at 09:00 Glucose (Glutose) 15 gm Q15M PRN PO DECREASED GLUCOSE; Start 11/04/18 at 09:00 Glucose (Glutose) 22.5 gm Q15M PRN PO DECREASED GLUCOSE; Start 11/04/18 at 09:00 Dextrose (D50w Syringe) 25 ml Q15M PRN IV DECREASED GLUCOSE; Start 11/04/18 at 09:00 Dextrose (D50w Syringe) 50 ml Q15M PRN IV DECREASED GLUCOSE; Start 11/04/18 at 09:00 Glucagon (Glucagen) 1 mg Q15M PRN IM DECREASED GLUCOSE; Start 11/04/18 at 09:00 Glucose (Glutose) 15 gm Q15M PRN BUCCAL DECREASED GLUCOSE; Start 11/04/18 at 09:00 Miscellaneous Information Patients own medicat... BID@10,16 XX Last administered on 11/19/18 09:24; Admin Dose 1 EA; Start 11/04/18 at 16:00 Povidone Iodine (Povidone-Iodine) 1 applic BID TOP Last administered on 11/19/18 09:11; Admin Dose 1 APPLIC; Start 11/05/18 at 21:00 Sodium Hypochlorite (Dakins Diluted ()) 1 applic BID TP Last administered on 11/19/18 09:11; Admin Dose 1 APPLIC; Start 11/07/18 at 09:00 Hydralazine HCl (Apresoline) 10 mg Q4H PRN IV sbp >160 Last administered on 11/19/18 05:33; Admin Dose 10 MG; Start 11/08/18 at 09:00 Famotidine (Pepcid) 20 mg DAILY NGT Last administered on 11/19/18 08:55; Admin Dose 20 MG; Start 11/11/18 at 09:30 Atropine Sulfate (Atropine) 0.5 mg PRN PRN IV SYMPTOMATIC BRADYCARDIA; Start 11/11/18 at 23:00 Aspirin (Aspirin) 325 mg DAILY GTB Last administered on 11/19/18 08:54; Admin Dose 325 MG; Start 11/13/18 at 09:00 Clopidogrel Bisulfate (plaVIX) 75 mg DAILY GTB Last administered on 11/19/18 08:55; Admin Dose 75 MG; Start 11/13/18 at 09:00 Heparin Sodium (Porcine) (Heparin (5000 Units/1ml)) 5,000 unit BID SC Last administered on 11/19/18 09:06; Admin Dose 5,000 UNIT; Start 11/14/18 at 21:00 Bisacodyl (Dulcolax Supp) 10 mg DAILY PRN [place] CONSTIPATION Last administered on 11/14/18 16:43; Admin Dose 10 MG; Start 11/14/18 at 16:30 Dextrose (D50w Syringe) 25 ml Q15M PRN IV .DECREASED GLUCOSE; Start 11/15/18 at 06:30 Dextrose (D50w Syringe) 50 ml Q15M PRN IV .DECREASED GLUCOSE; Start 11/15/18 at 06:30 Meropenem/Sodium Chloride 50 ml @ 100 mls/hr Q12 IVPB Last administered on 11/19/18at 08:54; Admin Dose 100 MLS/HR; Start 11/15/18 at 14:30 IV Flush (NS 10 ml) 10 ml PRN PRN IV FLUSH LINE; Start 11/15/18 at 15:30 Furosemide (Lasix) 40 mg DAILY@0600 IV Last administered on 11/18/18at 05:26; Admin Dose 40 MG; Start 11/17/18 at 06:00 Fluconazole (Diflucan) 100 mg DAILY PO Last administered on 11/19/18at 08:55; Admin Dose 100 MG; Start 11/16/18 at 14:00 Polyethylene Glycol (Miralax) 17 gm DAILY PRN NGT constipation; Start 11/17/18 at 09:00 Senna/Docusate Sodium (Senokot-S) 1 tab BID PRN NGT constipation; Start 11/17/18 at 09:00 Amlodipine Besylate (Norvasc) 5 mg DAILY PO Last administered on 11/19/18at 08:54; Admin Dose 5 MG; Start 11/19/18 at 09:00 Diagnostic Test (Pha) (Accu-Chek) 1 ea 02 XX ; Start 11/19/18 at 02:00 Atorvastatin Calcium (Lipitor) 20 mg QHS PO Last administered on 11/18/18at 21:21; Admin Dose 20 MG; Start 11/18/18 at 21:00 Gabapentin (Neurontin Liquid) 300 mg BID PO Last administered on 11/19/18at 09:10; Admin Dose 300 MG; Start 11/18/18 at 21:00 Hydralazine HCl (Apresoline) 100 mg TID PO Last administered on 11/19/18at 08:55; Admin Dose 100 MG; Start 11/18/18 at 21:00 Levofloxacin (Levaquin) 250 mg DAILY@06 PO Last administered on 11/19/18at 05:31; Admin Dose 250 MG; Start 11/19/18 at 06:00 Sodium Chloride 1,000 ml @ 40 mls/hr Q24H IV Last administered on 11/18/18at 22:09; Admin Dose 40 MLS/HR; Start 11/18/18 at 22:00 Diagnostic Test (Pha) (Accu-Chek) 1 ea 02 XX ; Start 11/20/18 at 02:00 Insulin Aspart (Novolog Insulin Pen) NOVOLOG *MODERATE* ALGORI... Q4 SC Last administered on 11/19/18at 09:09; Admin Dose 10 UNIT; Start 11/19/18 at 09:00 Methylprednisolone Sodium Succinate (Solu-Medrol) 40 mg DAILY IV ; Start 11/20/18 at 09:00 Labetalol HCl (Labetalol) 10 mg Q4H PRN IV sbp >160 Last administered on 11/19/18at 10:11; Admin Dose 10 MG; Start 11/19/18 at 10:00 Insulin Glargine (Lantus) 20 units DAILY@0800 SC ; Start 11/20/18 at 08:00 Insulin Glargine (Lantus) 10 units ONCE ONCE SC ; Start 11/19/18 at 12:00; Stop 11/19/18 at 12:01 Assessment/Plan Hospital Course (Demo Recall) IMPRESSION 1. Acute hypoxemic respiratory failure likely following cardiopulmonary arrest. Chest x-ray appears to be consistent with ARDS. Clinical improvement. Now safely extubated. 2. Recent new onset bradycardia.Likely secondary to b sharon. 3. History of peripheral vascular disease. 4. History of poorly controlled diabetes. 5. Anemia, no GIB 6. Leukocytosis likely secondary to steroids. 7. Encephalopathy likely toxic metabolic PLAN: 1. Diuretics as tolerated. 2. Stable off mechanical ventilation. 3. Insulin drip for hyperglycemia. 4. Decrease Solu-Medrol. Likely will 5. Renal recommendations appreciated. 6. Deep vein thrombosis and gastrointestinal prophylaxis. 7. Vascular recommendations regarding postop wound care, also appreciate podiatry recommendations. 8. ST eval. Aspiration precautions. Critical care time 40 minutes. EDWIGE CARRANZA MD, [facility] Nov 19, 2018 11:24
[2018-11-19] MEDS ORDERED: INSULIN GLARGINE [LANTus] (100 UNITS/ML) SYG SC ONE (12:00)
--- NOTE | 2018-11-19 13:06 | CONSI ---
Assessment/Plan Assessment/Plan Assessment/Plan (Recall) 72 M c/ multiple comorbidities, who initially presented for management of a limb wound.. Then on 11/11, he had a cardiac arrest that necessitated brief resuscitation and ultimate intubation.. Extubated on 11/18, he is noted to have an appreciable,though mild, encephalopathy...for which neurology is consulted.. He could have a subtle cognitive impairment at baseline, which has seen some decompensation in the context of acute illness requiring psychotropic medication exposure, etc... A focal STUDENT ASSISTANT process is, though, not yet excluded.. P: Agree w/ Head CT to exclude a small hemorrhage...given recent supratherapeutic anticoagulation.. Consider MRI brain to evaluate for a more subtle and acute intracranial process, if the above is unrevealing [place] as necessary Limit sedating medications where possible Consider EEG if his mental status begins to noticeably fluctuate.. Other management and supportive care per primary Will follow clinically Consultation Date/Type/Reason Admit Date/Time Nov 04, 2018 at 07:34 Type of Consult Neurology Reason for Consultation ams Requesting Provider: KARL WOOD MD Date/Time of Note DATE: 11/19/18 TIME: 12:52 Hx of Present Illness Patient is unable to contribute a complete Hx.. He had a brief cardiac arrest on 11/11...requiring resuscitation w/ 1 round of epi, and intubation.. Now extubated on 11/18...with appreciable confusion compared to prior, however mild.. It is elsewhere noted: This is a 72-year-old Italian-speaking male with a past medical history of type 2 diabetes, Dyslipidemia, peripheral arterial disease, hypertension, diabetic neuropathy, left second toe amputation, chronic left fifth toe ulcer, presented to the emergency room with worsening left fifth toe ulcers. Patient was apparently admitted at [facility] where he was treated with IV antibiotics and was sent home. However, patient's wound did not get improved and he started to notice exposed bone with development of gangrene. Patient denied numbness, tingling, fever, chills, dizziness, headache, chest pain, palpitation, nausea, vomiting, abdominal pain, diarrhea, constipation or other constitutional symptoms. Initial labs showed hemoglobin 12.1, hematocrit 37.6, sodium 133, potassium 5.8, creatinine 1.31, glucose 335 and a C-reactive protein 1.9. Foot x-ray showed no fractures or osseous destruction to suggest any osteomyelitis. 12 PT ROS ow neg Objective Exam Vitals Vital Signs Date Temp Pulse Resp B/P (MAP) Pulse Ox O2 O2 Flow FiO2 Time Delivery Rate 11/19/18 83 08:00 11/19/18 Nasal 3.0 08:00 Cannula 11/19/18 17 163/69 97 06:00 (100) 11/19/18 98.6 04:00 11/18/18 40 09:09 Intake and Output 11/18/18 11/18/18 11/19/18 1515:00 23:00 07:00 IntakeIntake Total 416.0 ml 380 ml 380 ml OutputOutput Total 1800 ml 1880 ml 1510 ml BalanceBalance -1384.0 ml -1500 ml -1130 ml Exam PE: Gen Appearance: No Apparent Distress HEENT: Normocephalic Cardiovascular: Regular rate Lungs: Clear bilaterally Abdomen: Soft Extremities: Dry; Left foot dressed NE: The patient was alert and oriented to person only. Language was normal. Fund of knowledge was limited. Pupils were equal and reactive to light. There was no afferent pupillary defect. Visual mcneill were normal. Funduscopic examination was limited. Extra-ocular movements were full. Ptosis was absent. There was no nystagmus. Facial sensation was normal. Face was symmetric with normal strength. Hearing was intact. Palate movements were normal. Neck strength was normal. There was normal tongue bulk and speed of movement. Tone was normal. Muscle bulk was normal. I did not see fasciculations. Arms and legs were symmetric. Vibration sensation was normal. Temperature and pinprick sensation was normal. Rapid alternating movements were normal. There was no dysmetria. There was no intention tremor. Gait was deferred due to bedrest. Arm and leg reflexes were symmetric. Lundberg's sign was absent. Plantar responses were flexor. Results Result Diagram: 11/19/18 0433 11/19/18 0429 Results 24hrs Laboratory Tests Test 11/18/18 17:37 11/18/18 21:19 11/19/18 01:08 11/19/18 04:29 Bedside Glucose 252 H 284 H 248 H Sodium Level 139 Potassium Level 4.7 Chloride Level 103 Carbon Dioxide Level 25 Anion Gap 11 Blood Urea Nitrogen 47 H Creatinine 1.24 Est Glomerular Filtrat Rate mL/min Glucose Level 291 #H Calcium Level 8.1 L Phosphorus Level 4.7 Magnesium Level 2.7 H Test 11/19/18 04:33 11/19/18 05:11 11/19/18 08:56 White Blood Count 20.2 #H Red Blood Count 3.67 L Hemoglobin 10.9 L Hematocrit 34.1 L Mean Corpuscular Volume 92.9 Mean Corpuscular 29.7 Hemoglobin Mean Corpuscular 32.0 Hemoglobin Concent Red Cell Distribution 14.2 Width Platelet Count 391 # Mean Platelet Volume 10.7 H Immature Granulocytes % 2.000 H Neutrophils % 88.5 H Lymphocytes % 3.9 L Monocytes % 5.5 Eosinophils % 0.0 Basophils % 0.1 Nucleated Red Blood 0.0 Cells % Immature Granulocytes # 0.410 H Neutrophils # 17.9 H Lymphocytes # 0.8 Monocytes # 1.1 H Eosinophils # 0.0 Basophils # 0.0 Nucleated Red Blood 0.0 Cells # Bedside Glucose 267 H 307 H Past Medical History Medical History: other (As per history of present illness) Home Meds Active Scripts Silver Sulfadiazine* (Silvadene*) 1% - 20 Gm Cream.gm., 1 APPLIC TOP DAILY, #1 TUB Prov:JESSIE WONG MD 06/12/18 Amoxicillin-Clavulanate K* (Augmentin*) 875 Mg Tab, 875 MG PO BID, #28 TAB Prov:AMANDA GOMEZ MD 06/08/14 Reported Medications Insulin Aspart (Novolog Mix (70/30)) 100 Units/Ml Soln, 28 SC with diinner, VIAL 11/04/18 Insulin Aspart (Novolog Mix (70/30)) 100 Units/Ml Soln, 38 SC WITH BREAKFAST, VIAL 11/04/18 Benazepril Hcl* (Benazepril Hcl*) 40 Mg Tablet, 40 MG PO DAILY, #30 TAB 11/04/18 Ergocalciferol (Vitamin D2) (VITAMIN D2) 50,000 Unit Capsule, 73520 UNIT PO weekly for saturdays, CAP 11/04/18 Omeprazole* (Omeprazole*) 20 Mg Capsule.dr, 20 MG PO DAILY, #30 CAP 11/04/18 Aspirin* (Aspirin* EC) 81 Mg Tablet.dr, 81 MG PO DAILY, TAB 11/04/18 Gabapentin* (Gabapentin*) 300 Mg Capsule, 300 MG PO BID, #60 CAP 11/04/18 Nebivolol Hcl* (Bystolic*) 20 Mg Tablet, 20 MG PO DAILY, #30 TAB 11/04/18 Atorvastatin Calcium* (Atorvastatin Calcium*) 20 Mg Tablet, 20 MG PO QHS, #30 TAB 11/04/18 Sulfasalazine (Azulfidine) 500 Mg Tab, 1000 MG PO TID, TAB 06/02/14 Medications Current Medications Ergocalciferol (Drisdol) 50,000 unit Sa PO Last administered on 11/09/18at 09:28; Admin Dose 50,000 UNIT; Start 11/09/18 at 09:00 Miscellaneous Medication (Bystolic) 20 mg DAILY PO Last administered on 11/11/18at 09:03; Admin Dose 20 MG; Start 11/04/18 at 09:00; Status Hold Clonidine (Catapres) 0.1 mg Q6H PRN PO SBP>160 Last administered on 11/19/18at 03:04; Admin Dose 0.1 MG; Start 11/04/18 at 09:00 IV Flush (NS 3 ml) 3 ml PER PROTOCOL IV ; Start 11/04/18 at 09:00 Ondansetron HCl (Zofran Inj) 4 mg Q6H PRN IV NAUSEA/VOMITING; Start 11/04/18 at 09:00 Acetaminophen (Tylenol Tab) 650 mg Q6H PRN PO .PAIN 1-3 OR TEMP; Start 11/04/18 at 09:00 Miscellaneous Information 1 ea NOTE XX ; Start 11/04/18 at 09:00 Glucose (Glutose) 15 gm Q15M PRN PO DECREASED GLUCOSE; Start 11/04/18 at 09:00 Glucose (Glutose) 22.5 gm Q15M PRN PO DECREASED GLUCOSE; Start 11/04/18 at 09:00 Dextrose (D50w Syringe) 25 ml Q15M PRN IV DECREASED GLUCOSE; Start 11/04/18 at 09:00 Dextrose (D50w Syringe) 50 ml Q15M PRN IV DECREASED GLUCOSE; Start 11/04/18 at 09:00 Glucagon (Glucagen) 1 mg Q15M PRN IM DECREASED GLUCOSE; Start 11/04/18 at 09:00 Glucose (Glutose) 15 gm Q15M PRN BUCCAL DECREASED GLUCOSE; Start 11/04/18 at 09:00 Miscellaneous Information Patients own medicat... BID@10,16 XX Last administered on 11/19/18at 09:24; Admin Dose 1 EA; Start 11/04/18 at 16:00 Povidone Iodine (Povidone-Iodine) 1 applic BID TOP Last administered on 11/19/18 at 09:11; Admin Dose 1 APPLIC; Start 11/05/18 at 21:00 Sodium Hypochlorite (Dakins Diluted ()) 1 applic BID TP Last administered on 11/19/18at 09:11; Admin Dose 1 APPLIC; Start 11/07/18 at 09:00 Hydralazine HCl (Apresoline) 10 mg Q4H PRN IV sbp >160 Last administered on 11/19/18at 05:33; Admin Dose 10 MG; Start 11/08/18 at 09:00 Famotidine (Pepcid) 20 mg DAILY NGT Last administered on 11/19/18 08:55; Admin Dose 20 MG; Start 11/11/18 at 09:30 Atropine Sulfate (Atropine) 0.5 mg PRN PRN IV SYMPTOMATIC BRADYCARDIA; Start 11/11/18 at 23:00 Aspirin (Aspirin) 325 mg DAILY GTB Last administered on 11/19/18 08:54; Admin Dose 325 MG; Start 11/13/18 at 09:00 Clopidogrel Bisulfate (plaVIX) 75 mg DAILY GTB Last administered on 11/19/18 08:55; Admin Dose 75 MG; Start 11/13/18 at 09:00 Heparin Sodium (Porcine) (Heparin (5000 Units/1ml)) 5,000 unit BID SC Last administered on 11/19/18 09:06; Admin Dose 5,000 UNIT; Start 11/14/18 at 21:00 Bisacodyl (Dulcolax Supp) 10 mg DAILY PRN [place] CONSTIPATION Last administered on 11/14/18at 16:43; Admin Dose 10 MG; Start 11/14/18 at 16:30 Dextrose (D50w Syringe) 25 ml Q15M PRN IV .DECREASED GLUCOSE; Start 11/15/18 at 06:30 Dextrose (D50w Syringe) 50 ml Q15M PRN IV .DECREASED GLUCOSE; Start 11/15/18 at 06:30 Meropenem/Sodium Chloride 50 ml @ 100 mls/hr Q12 IVPB Last administered on 11/19/18 08:54; Admin Dose 100 MLS/HR; Start 11/15/18 at 14:30 IV Flush (NS 10 ml) 10 ml PRN PRN IV FLUSH LINE; Start 11/15/18 at 15:30 Furosemide (Lasix) 40 mg DAILY@0600 IV Last administered on 11/18/18 05:26; Admin Dose 40 MG; Start 11/17/18 at 06:00 Fluconazole (Diflucan) 100 mg DAILY PO Last administered on 11/19/18 08:55; Admin Dose 100 MG; Start 11/16/18 at 14:00 Polyethylene Glycol (Miralax) 17 gm DAILY PRN NGT constipation; Start 11/17/18 at 09:00 Senna/Docusate Sodium (Senokot-S) 1 tab BID PRN NGT constipation; Start 11/17/18 at 09:00 Amlodipine Besylate (Norvasc) 5 mg DAILY PO Last administered on 11/19/18 08:54; Admin Dose 5 MG; Start 11/19/18 at 09:00 Diagnostic Test (Pha) (Accu-Chek) 1 ea 02 XX ; Start 11/19/18 at 02:00 Atorvastatin Calcium (Lipitor) 20 mg QHS PO Last administered on 11/18/18at 21:21; Admin Dose 20 MG; Start 11/18/18 at 21:00 Gabapentin (Neurontin Liquid) 300 mg BID PO Last administered on 11/19/18at 09:10; Admin Dose 300 MG; Start 11/18/18 at 21:00 Hydralazine HCl (Apresoline) 100 mg TID PO Last administered on 11/19/18 08:55; Admin Dose 100 MG; Start 11/18/18 at 21:00 Levofloxacin (Levaquin) 250 mg DAILY@06 PO Last administered on 11/19/18 05:31; Admin Dose 250 MG; Start 11/19/18 at 06:00 Sodium Chloride 1,000 ml @ 40 mls/hr Q24H IV Last administered on 11/18/18 22:09; Admin Dose 40 MLS/HR; Start 11/18/18 at 22:00 Diagnostic Test (Pha) (Accu-Chek) 1 ea 02 XX ; Start 11/20/18 at 02:00 Insulin Aspart (Novolog Insulin Pen) NOVOLOG *MODERATE* ALGORI... Q4 SC Last administered on 11/19/18at 09:09; Admin Dose 10 UNIT; Start 11/19/18 at 09:00 Methylprednisolone Sodium Succinate (Solu-Medrol) 40 mg DAILY IV ; Start 11/20/18 at 09:00 Labetalol HCl (Labetalol) 10 mg Q4H PRN IV sbp >160 Last administered on 11/19/18at 10:11; Admin Dose 10 MG; Start 11/19/18 at 10:00 Insulin Glargine (Lantus) 20 units DAILY@0800 SC ; Start 11/20/18 at 08:00 Allergies: Coded Allergies: No Known Allergy (Unverified , 11/04/18) Social History Smoking Status: Never smoker ALBAN WOLF Nov 19, 2018 13:02
--- NOTE | 2018-11-19 13:19 | CONS ---
Assessment/Plan Assessment/Plan Hospital Course (Demo Recall) Patient is awake confused looks comfortable, no fevers overnight WBC 20.2 platelets 391 neutrophils 88.5 BUN 47 creatinine 1.24 Endotracheal aspirate grew Alice albicans, left foot wound culture grew Klebsiella pneumoniae ESBL and Stenotrophomonas maltophilia Antimicrobials: Meropenem, Levaquin, fluconazole Indwelling: Endotracheal tube, NG tube, Vora, PICC line Physical examination: Well-developed elderly man who is in no distress head atraumatic normocephalic neck is supple chest rise symmetrical breath sounds diminished bases heart S1-S2 abdomen soft bowel sounds present extremities with left foot dressing intact Assessment: 1. Status post cardiac arrest 2. Non-ST elevation ND 3. Acute respiratory failure, possibly aspirated 4. Left foot gangrene 5. Peripheral arterial disease status post left femoral to posterior tibial bypass 11/08/18 6. Diabetes 7. History of left foot second toe amputation 8. Acute kidney insufficiency Plan: Remains stable post extubation, continue antibiotics, wound care per podiatry, plan for MRI of the brain and transfer out of ICU Consultation Date/Type/Reason Admit Date/Time Nov 04, 2018 at 07:34 Initial Consult Date Type of Consult id Requesting Provider: KARL WOOD MD Date/Time of Note DATE: 11/19/18 TIME: 13:17 Exam/Review of Systems Exam Vitals Vital Signs Date Temp Pulse Resp B/P (MAP) Pulse Ox O2 O2 Flow FiO2 Time Delivery Rate 11/19/18 84 12:00 11/19/18 Nasal 3.0 08:00 Cannula 11/19/18 17 163/69 97 06:00 (100) 11/19/18 98.6 04:00 11/18/18 40 09:09 Intake and Output 11/18/18 11/18/18 11/19/18 1515:00 23:00 07:00 IntakeIntake Total 416.0 ml 380 ml 380 ml OutputOutput Total 1800 ml 1880 ml 1510 ml BalanceBalance -1384.0 ml -1500 ml -1130 ml Results Result Diagram: 11/19/18 0433 11/19/18 0429 Results 24hrs Laboratory Tests Test 11/18/18 17:37 11/18/18 21:19 11/19/18 01:08 11/19/18 04:29 Bedside Glucose 252 H 284 H 248 H Sodium Level 139 Potassium Level 4.7 Chloride Level 103 Carbon Dioxide Level 25 Anion Gap 11 Blood Urea Nitrogen 47 H Creatinine 1.24 Est Glomerular Filtrat Rate mL/min Glucose Level 291 #H Calcium Level 8.1 L Phosphorus Level 4.7 Magnesium Level 2.7 H Test 11/19/18 04:33 11/19/18 05:11 11/19/18 08:56 11/19/18 12:41 White Blood Count 20.2 #H Red Blood Count 3.67 L Hemoglobin 10.9 L Hematocrit 34.1 L Mean Corpuscular Volume 92.9 Mean Corpuscular 29.7 Hemoglobin Mean Corpuscular 32.0 Hemoglobin Concent Red Cell Distribution 14.2 Width Platelet Count 391 # Mean Platelet Volume 10.7 H Immature Granulocytes % 2.000 H Neutrophils % 88.5 H Lymphocytes % 3.9 L Monocytes % 5.5 Eosinophils % 0.0 Basophils % 0.1 Nucleated Red Blood 0.0 Cells % Immature Granulocytes # 0.410 H Neutrophils # 17.9 H Lymphocytes # 0.8 Monocytes # 1.1 H Eosinophils # 0.0 Basophils # 0.0 Nucleated Red Blood 0.0 Cells # Bedside Glucose 267 H 307 H 247 H Medications Medication Current Medications Ergocalciferol (Drisdol) 50,000 unit Sa PO Last administered on 11/09/18at 09:28; Admin Dose 50,000 UNIT; Start 11/09/18 at 09:00 Miscellaneous Medication (Bystolic) 20 mg DAILY PO Last administered on 11/11/18at 09:03; Admin Dose 20 MG; Start 11/04/18 at 09:00; Status Hold Clonidine (Catapres) 0.1 mg Q6H PRN PO SBP>160 Last administered on 11/19/18at 03:04; Admin Dose 0.1 MG; Start 11/04/18 at 09:00 IV Flush (NS 3 ml) 3 ml PER PROTOCOL IV ; Start 11/04/18 at 09:00 Ondansetron HCl (Zofran Inj) 4 mg Q6H PRN IV NAUSEA/VOMITING; Start 11/04/18 at 09:00 Acetaminophen (Tylenol Tab) 650 mg Q6H PRN PO .PAIN 1-3 OR TEMP; Start 11/04/18 at 09:00 Miscellaneous Information 1 ea NOTE XX ; Start 11/04/18 at 09:00 Glucose (Glutose) 15 gm Q15M PRN PO DECREASED GLUCOSE; Start 11/04/18 at 09:00 Glucose (Glutose) 22.5 gm Q15M PRN PO DECREASED GLUCOSE; Start 11/04/18 at 09:00 Dextrose (D50w Syringe) 25 ml Q15M PRN IV DECREASED GLUCOSE; Start 11/04/18 at 09:00 Dextrose (D50w Syringe) 50 ml Q15M PRN IV DECREASED GLUCOSE; Start 11/04/18 at 09:00 Glucagon (Glucagen) 1 mg Q15M PRN IM DECREASED GLUCOSE; Start 11/04/18 at 09:00 Glucose (Glutose) 15 gm Q15M PRN BUCCAL DECREASED GLUCOSE; Start 11/04/18 at 09:00 Miscellaneous Information Patients own medicat... BID@10,16 XX Last administered on 11/19/18 09:24; Admin Dose 1 EA; Start 11/04/18 at 16:00 Povidone Iodine (Povidone-Iodine) 1 applic BID TOP Last administered on 11/19/18 09:11; Admin Dose 1 APPLIC; Start 11/05/18 at 21:00 Sodium Hypochlorite (Dakins Diluted (40)) 1 applic BID TP Last administered on 11/19/18 09:11; Admin Dose 1 APPLIC; Start 11/07/18 at 09:00 Hydralazine HCl (Apresoline) 10 mg Q4H PRN IV sbp >160 Last administered on 11/19/18at 05:33; Admin Dose 10 MG; Start 11/08/18 at 09:00 Famotidine (Pepcid) 20 mg DAILY NGT Last administered on 11/19/18at 08:55; Admin Dose 20 MG; Start 11/11/18 at 09:30 Atropine Sulfate (Atropine) 0.5 mg PRN PRN IV SYMPTOMATIC BRADYCARDIA; Start 11/11/18 at 23:00 Aspirin (Aspirin) 325 mg DAILY GTB Last administered on 11/19/18at 08:54; Admin Dose 325 MG; Start 11/13/18 at 09:00 Clopidogrel Bisulfate (plaVIX) 75 mg DAILY GTB Last administered on 11/19/18at 08:55; Admin Dose 75 MG; Start 11/13/18 at 09:00 Heparin Sodium (Porcine) (Heparin (5000 Units/1ml)) 5,000 unit BID SC Last ad ministered on 11/19/18 09:06; Admin Dose 5,000 UNIT; Start 11/14/18 at 21:00 Bisacodyl (Dulcolax Supp) 10 mg DAILY PRN [place] CONSTIPATION Last administered on 11/14/18at 16:43; Admin Dose 10 MG; Start 11/14/18 at 16:30 Dextrose (D50w Syringe) 25 ml Q15M PRN IV .DECREASED GLUCOSE; Start 11/15/18 at 06:30 Dextrose (D50w Syringe) 50 ml Q15M PRN IV .DECREASED GLUCOSE; Start 11/15/18 at 06:30 Meropenem/Sodium Chloride 50 ml @ 100 mls/hr Q12 IVPB Last administered on 11/19/18at 08:54; Admin Dose 100 MLS/HR; Start 11/15/18 at 14:30 IV Flush (NS 10 ml) 10 ml PRN PRN IV FLUSH LINE; Start 11/15/18 at 15:30 Furosemide (Lasix) 40 mg DAILY@0600 IV Last administered on 11/18/18at 05:26; Admin Dose 40 MG; Start 11/17/18 at 06:00 Fluconazole (Diflucan) 100 mg DAILY PO Last administered on 11/19/18at 08:55; Admin Dose 100 MG; Start 11/16/18 at 14:00 Polyethylene Glycol (Miralax) 17 gm DAILY PRN NGT constipation; Start 11/17/18 at 09:00 Senna/Docusate Sodium (Senokot-S) 1 tab BID PRN NGT constipation; Start 11/17/18 at 09:00 Amlodipine Besylate (Norvasc) 5 mg DAILY PO Last administered on 11/19/18 08 :54; Admin Dose 5 MG; Start 11/19/18 at 09:00 Diagnostic Test (Pha) (Accu-Chek) 1 ea 02 XX ; Start 11/19/18 at 02:00 Atorvastatin Calcium (Lipitor) 20 mg QHS PO Last administered on 11/18/18at 21:21; Admin Dose 20 MG; Start 11/18/18 at 21:00 Gabapentin (Neurontin Liquid) 300 mg BID PO Last administered on 11/19/18at 09:10; Admin Dose 300 MG; Start 11/18/18 at 21:00 Hydralazine HCl (Apresoline) 100 mg TID PO Last administered on 11/19/18at 12:40; Admin Dose 100 MG; Start 11/18/18 at 21:00 Levofloxacin (Levaquin) 250 mg DAILY@06 PO Last administered on 11/19/18at 05:31; Admin Dose 250 MG; Start 11/19/18 at 06:00 Sodium Chloride 1,000 ml @ 40 mls/hr Q24H IV Last administered on 11/18/18at 22:09; Admin Dose 40 MLS/HR; Start 11/18/18 at 22:00 Diagnostic Test (Pha) (Accu-Chek) 1 ea 02 XX ; Start 11/20/18 at 02:00 Insulin Aspart (Novolog Insulin Pen) NOVOLOG *MODERATE* ALGORI... Q4 SC Last administered on 11/19/18at 12:54; Admin Dose 6 UNIT; Start 11/19/18 at 09:00 Methylprednisolone Sodium Succinate (Solu-Medrol) 40 mg DAILY IV ; Start 11/20/18 at 09:00 Labetalol HCl (Labetalol) 10 mg Q4H PRN IV sbp >160 Last administered on 11/19/18at 10:11; Admin Dose 10 MG; Start 11/19/18 at 10:00 Insulin Glargine (Lantus) 20 units DAILY@0800 SC ; Start 11/20/18 at 08:00 HERRERA MURILLO NP Nov 19, 2018 13:19
--- NOTE | 2018-11-19 15:35 | PN ---
Date/Time of Note Date/Time of Note DATE: 11/19/18 TIME: 15:30 Objective Vitals Vital Signs Date Temp Pulse Resp B/P (MAP) Pulse Ox O2 O2 Flow FiO2 Time Delivery Rate 11/19/18 85 24 164/77 96 Nasal 3.0 13:00 (106) Cannula 11/19/18 98.8 12:00 11/18/18 40 09:09 Intake and Output 11/18/18 11/18/18 11/19/18 1515:00 23:00 07:00 IntakeIntake Total 416.0 ml 380 ml 420 ml OutputOutput Total 1800 ml 1880 ml 1710 ml BalanceBalance -1384.0 ml -1500 ml -1290 ml Results Result Diagram: 11/19/18 0433 11/19/18 0429 Medications Medications Current Medications Ergocalciferol (Drisdol) 50,000 unit Sa PO Last administered on 11/09/18at 09:28; Admin Dose 50,000 UNIT; Start 11/09/18 at 09:00 Miscellaneous Medication (Bystolic) 20 mg DAILY PO Last administered on 11/11/18at 09:03; Admin Dose 20 MG; Start 11/04/18 at 09:00; Status Hold Clonidine (Catapres) 0.1 mg Q6H PRN PO SBP>160 Last administered on 11/19/18at 03:04; Admin Dose 0.1 MG; Start 11/04/18 at 09:00 IV Flush (NS 3 ml) 3 ml PER PROTOCOL IV ; Start 11/04/18 at 09:00 Ondansetron HCl (Zofran Inj) 4 mg Q6H PRN IV NAUSEA/VOMITING; Start 11/04/18 at 09:00 Acetaminophen (Tylenol Tab) 650 mg Q6H PRN PO .PAIN 1-3 OR TEMP; Start 11/04/18 at 09:00 Miscellaneous Information 1 ea NOTE XX ; Start 11/04/18 at 09:00 Glucose (Glutose) 15 gm Q15M PRN PO DECREASED GLUCOSE; Start 11/04/18 at 09:00 Glucose (Glutose) 22.5 gm Q15M PRN PO DECREASED GLUCOSE; Start 11/04/18 at 09:00 Dextrose (D50w Syringe) 25 ml Q15M PRN IV DECREASED GLUCOSE; Start 11/04/18 at 09:00 Dextrose (D50w Syringe) 50 ml Q15M PRN IV DECREASED GLUCOSE; Start 11/04/18 at 09:00 Glucagon (Glucagen) 1 mg Q15M PRN IM DECREASED GLUCOSE; Start 11/04/18 at 09:00 Glucose (Glutose) 15 gm Q15M PRN BUCCAL DECREASED GLUCOSE; Start 11/04/18 at 09:00 Miscellaneous Information Patients own medicat... BID@10,16 XX Last administered on 11/19/18 15:11; Admin Dose 1 EA; Start 11/04/18 at 16:00 Povidone Iodine (Povidone-Iodine) 1 applic BID TOP Last administered on 11/19/18 09:11; Admin Dose 1 APPLIC; Start 11/05/18 at 21:00 Sodium Hypochlorite (Dakins Diluted ()) 1 applic BID TP Last administered on 11/19/18 09:11; Admin Dose 1 APPLIC; Start 11/07/18 at 09:00 Hydralazine HCl (Apresoline) 10 mg Q4H PRN IV sbp >160 Last administered on 11/19/18 05:33; Admin Dose 10 MG; Start 11/08/18 at 09:00 Famotidine (Pepcid) 20 mg DAILY NGT Last administered on 11/19/18 08:55; Admin Dose 20 MG; Start 11/11/18 at 09:30 Atropine Sulfate (Atropine) 0.5 mg PRN PRN IV SYMPTOMATIC BRADYCARDIA; Start 11/11/18 at 23:00 Aspirin (Aspirin) 325 mg DAILY GTB Last administered on 11/19/18 08:54; Admin Dose 325 MG; Start 11/13/18 at 09:00 Clopidogrel Bisulfate (plaVIX) 75 mg DAILY GTB Last administered on 11/19/18 08:55; Admin Dose 75 MG; Start 11/13/18 at 09:00 Heparin Sodium (Porcine) (Heparin (5000 Units/1ml)) 5,000 unit BID SC Last administered on 11/19/18 09:06; Admin Dose 5,000 UNIT; Start 11/14/18 at 21:00 Bisacodyl (Dulcolax Supp) 10 mg DAILY PRN [place] CONSTIPATION Last administered on 11/14/18 16:43; Admin Dose 10 MG; Start 11/14/18 at 16:30 Dextrose (D50w Syringe) 25 ml Q15M PRN IV .DECREASED GLUCOSE; Start 11/15/18 at 06:30 Dextrose (D50w Syringe) 50 ml Q15M PRN IV .DECREASED GLUCOSE; Start 11/15/18 at 06:30 Meropenem/Sodium Chloride 50 ml @ 100 mls/hr Q12 IVPB Last administered on 11/19/18at 08:54; Admin Dose 100 MLS/HR; Start 11/15/18 at 14:30 IV Flush (NS 10 ml) 10 ml PRN PRN IV FLUSH LINE; Start 11/15/18 at 15:30 Furosemide (Lasix) 40 mg DAILY@0600 IV Last administered on 11/18/18at 05:26; Admin Dose 40 MG; Start 11/17/18 at 06:00 Fluconazole (Diflucan) 100 mg DAILY PO Last administered on 11/19/18at 08:55; Admin Dose 100 MG; Start 11/16/18 at 14:00 Polyethylene Glycol (Miralax) 17 gm DAILY PRN NGT constipation; Start 11/17/18 at 09:00 Senna/Docusate Sodium (Senokot-S) 1 tab BID PRN NGT constipation; Start 11/17/18 at 09:00 Amlodipine Besylate (Norvasc) 5 mg DAILY PO Last administered on 11/19/18at 08:54; Admin Dose 5 MG; Start 11/19/18 at 09:00 Diagnostic Test (Pha) (Accu-Chek) 1 ea 02 XX ; Start 11/19/18 at 02:00 Atorvastatin Calcium (Lipitor) 20 mg QHS PO Last administered on 11/18/18at 21:21; Admin Dose 20 MG; Start 11/18/18 at 21:00 Gabapentin (Neurontin Liquid) 300 mg BID PO Last administered on 11/19/18at 09:10; Admin Dose 300 MG; Start 11/18/18 at 21:00 Hydralazine HCl (Apresoline) 100 mg TID PO Last administered on 11/19/18at 12:40; Admin Dose 100 MG; Start 11/18/18 at 21:00 Levofloxacin (Levaquin) 250 mg DAILY@06 PO Last administered on 11/19/18at 05:31; Admin Dose 250 MG; Start 11/19/18 at 06:00 Sodium Chloride 1,000 ml @ 40 mls/hr Q24H IV Last administered on 11/18/18at 22:09; Admin Dose 40 MLS/HR; Start 11/18/18 at 22:00 Diagnostic Test (Pha) (Accu-Chek) 1 ea 02 XX ; Start 11/20/18 at 02:00 Insulin Aspart (Novolog Insulin Pen) NOVOLOG *MODERATE* ALGORI... Q4 SC Last administered on 11/19/18at 12:54; Admin Dose 6 UNIT; Start 11/19/18 at 09:00 Methylprednisolone Sodium Succinate (Solu-Medrol) 40 mg DAILY IV ; Start 11/20/18 at 09:00 Labetalol HCl (Labetalol) 10 mg Q4H PRN IV sbp >160 Last administered on 11/19/18at 10:11; Admin Dose 10 MG; Start 11/19/18 at 10:00 Insulin Glargine (Lantus) 20 units DAILY@0800 SC ; Start 11/20/18 at 08:00 Ascorbic Acid (Vitamin C) 500 mg DAILY PO ; Start 11/20/18 at 09:00 Zinc Sulfate (Zinc Sulfate) 220 mg DAILY PO ; Start 11/20/18 at 09:00 VTE Prophylaxis Risk score (from Nsg)>0 risk: 11 SCD applied (from Nsg): No SCD contraindication: other Lines/Catheters IV Catheter Type: Schneider in Place: No Assessment/Plan Hospital Course Subjective Patient doing well after extubation, has episodes of confusion. Objective Physical exam General: Patient is laying in bed responding to questions however has episodes of confusion Mentation: Patient is alert and oriented x1 Head: Normocephalic atraumatic Eyes: EOMI, pupils reactive to light Neck: Supple, nontender, midline Respiratory: Coarse to auscultation bilaterally Cardiovascular: regular rate, no obvious murmurs Gastrointestinal: non-tender to palpation, bowel sounds heard. 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 Acute hypoxic respiratory failure-resolving -Extubated, doing well - CT chest without contrast results noted - Pulmonology on board for vent management 2. Cardiac arrest s/p ROSC - Cardiology on board and appreciate recommendations - ECHO with preserved EF 3. left fifth toe gangrenous ulcer - ID on board and appreciate consultation. Will continue current antibiotics - Continue local wound care - Podiatry on board and will plan for further amputation in the near future once stable 4. Severe peripheral vascular disease - s/p left femoral endarterectomy, iliofemoral bypass and femoral to posterior tibial bypass done on November 08, 2018 - Vascular surgery consultation appreciated 5. Diabetes Mellitus - A1c noted - insulin as needed 6. Acute kidney injury- improving - nephrology consultation appreciated and most likely due to contrast induced nephropathy as well as cardiorenal. managing diuretics - continue monitoring and avoid nephrotoxic agents 7. Essential HTN -Continue home medications at this time - BP stable 8. Peripheral neuropathy - cont. gabapentin 9. HLD - On statin 10. Chronic anemia - Stable H&H. Monitor - no need for transfusions at this time 11. Urinary retention - Urology on board and appreciate recommendations. continue schneider care for now 12. Disposition -Okay to downgrade to telemetry -More than 40 minutes of critical care time has been spent on this encounter FRANTZ SCHWAB Nov 19, 2018 15:35
[2018-11-19] MEDS ORDERED: LORAZEPAM 1 MG TAB PO ONE (19:00)
[2018-11-19] MEDS: ATORVASTATIN 80 MG TAB PO SCH (21:47)
[2018-11-19] MEDS: SOD CHLORIDE 0.45% 1,000 ML IV SCH (21:48)
[2018-11-20] MEDS: INSULIN ASPART [NOVOLOG] 3 ML PEN SC SCH ×6 (01:00→22:08)
[2018-11-20] MEDS: ACCU-CHEK XX SCH ×2 (02:00)
[2018-11-20 04:36] VITALS: BP 155/76; PULSE 82; RESP 18
[2018-11-20] MEDS: FUROSEMIDE 40 MG INJ IV SCH (06:00)
[2018-11-20] MEDS: LEVOFLOXACIN 250 MG TAB PO SCH (06:00)
[2018-11-20 08:02] VITALS: BP 144/71; PULSE 81; RESP 22
[2018-11-20] MEDS ORDERED: METHYLPREDNISOLONE 40 MG INJ IV SCH (09:00)
[2018-11-20] MEDS: DAKINS 0.0125%(1/40) 473 ML SOLUTION TP SCH ×2 (09:00→21:51)
[2018-11-20] MEDS: POVIDONE IODINE 10% 28.4 GM OINT TOP SCH ×2 (09:00→21:50)
--- NOTE | 2018-11-20 09:16 | PN ---
DATE: 11/20/2018 SUBJECTIVE: The patient was transferred from intensive care unit to telemetry. The patient is stabl e overnight. No hemoptysis, hematemesis or hematochezia. OBJECTIVE: VITAL SIGNS: Blood pressure is 135/76, respirations 18, pulse 82, temperature 98.9. HEENT: Head is normocephalic. NECK: Supple. HEART: Regular rate. LUNGS: Show diminished breath sounds at the base. ABDOMEN: Soft, nontender to palpation without rebound or guarding. EXTREMITIES: Negative for clubbing, cyanosis. Trace edema. DERMATOLOGIC: No rashes. MUSCULOSKELETAL: No joint effusion. NEUROLOGIC: No change in exam. MEDICATIONS: Reviewed. LABORATORY DATA: Reviewed. IMAGING STUDIES: Reviewed. ASSESSMENT AND PLAN: 1. Nonoliguric acute kidney injury. Etiology is secondary to hemodynamics, tubular injury. Renal f unction is stabilized. Continue current treatment plans, supportive care, renally dose all medicatio ns. 2. Volume overload secondary to acute kidney injury, diastolic heart failure. The patient is near e uvolemic on exam. Continue current medical management. Continue diuretic therapy to maintain euvole mervin status. 3. Anemia. Continue to monitor hemoglobin and hematocrit levels. 4. Mineral bone disorder, monitor calcium and phosphorus levels. 5. Respiratory failure, status post extubation, currently stable. Continue to monitor. 6. Arrhythmia. Continue to monitor. 7. Peripheral vascular disease, status post iliofemoral bypass. 8. Hypertension. Continue current blood pressure regimen. 9. Dyslipidemia. Continue statin therapy. 10. Acute encephalopathy, etiology is toxic metabolic. 11. Status post cardiac arrest. Dictated By: JEAN CLAUDE LARIOS DO NR/NTS Conf#: [id number] DID#: [id number] CC: TOMASA SCOTT; FRANTZ SCHWAB MD; JAYLEEN BUNN MD;*EndCC*
[2018-11-20] MEDS: ASPIRIN 325 MG TAB GTB SCH (10:50)
[2018-11-20] MEDS: MEROPENEM 500MG/50 ML (PMX) 50 ML IVPB SCH ×2 (10:50→21:47)
[2018-11-20] MEDS: CLOPIDOGREL 75 MG TAB GTB SCH (10:51)
[2018-11-20] MEDS: FAMOTIDINE 20 MG TAB NGT SCH (10:51)
[2018-11-20] MEDS: FLUCONAZOLE 100 MG TAB PO SCH (10:53)
[2018-11-20] MEDS: ASCORBIC ACID 500 MG TAB PO SCH (10:53)
[2018-11-20] MEDS: AMLODIPINE 5 MG TAB PO SCH ×2 (10:53→21:49)
[2018-11-20] MEDS: ZINC SULFATE 220 MG CAP PO SCH (10:53)
--- NOTE | 2018-11-20 11:02 | CONS ---
Assessment/Plan Assessment/Plan Assessment/Plan (Recall) 72 M c/ multiple comorbidities, who initially presented for management of a limb wound.. Then on 11/11, he had a cardiac arrest that necessitated brief resuscitation and ultimate intubation.. Extubated on 11/18, he is noted to have an appreciable,though mild, encephalopathy...for which neurology is consulted.. He could have a subtle cognitive impairment at baseline, which has seen some decompensation in the context of acute illness requiring psychotropic medication exposure, etc... 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 Patient is currently refusing MRI brain Recent TTE was unremarkable P: Agree w/ plavix daily for secondary stroke prevention Macy as necessary Limit sedating medications where possible Other management and supportive care per primary Will follow clinically Consultation Date/Type/Reason Admit Date/Time Nov 04, 2018 at 07:34 Type of Consult Neurology Reason for Consultation ams Requesting Provider: KARL WOOD MD Date/Time of Note DATE: 11/20/18 TIME: 10:58 24 HR Interval Summary Free Text/Dictation Patient refusing MRI brain Exam/Review of Systems Exam Vitals Vital Signs Date Temp Pulse Resp B/P (MAP) Pulse Ox O2 O2 Flow FiO2 Time Delivery Rate 11/20/18 98.0 81 22 144/71 94 Nasal 2.0 08:02 (95) Cannula 11/18/18 40 09:09 Intake and Output 11/19/18 11/19/18 11/20/18 1515:00 23:00 07:00 IntakeIntake Total 370 ml 210 ml OutputOutput Total 1675 ml 1300 ml 800 ml BalanceBalance -1305 ml -1090 ml -800 ml Exam PE: Gen Appearance: No Apparent Distress HEENT: Normocephalic Cardiovascular: Regular rate Lungs: Clear bilaterally Abdomen: Soft Extremities: Dry;Left foot dressed NE: The patient was alert and oriented. Language was normal. Fund of knowledge was adequate. Pupils were equal and reactive to light. There was no afferent pupillary defect. Visual mcneill were normal. Funduscopic examination was limited. Extra-ocular movements were full. Ptosis was absent. There was no nystagmus. Facial sensation was normal. Face was symmetric with normal strength. Hearing was intact. Palate movements were normal. Neck strength was normal. There was normal tongue bulk and speed of movement. Tone was normal. Muscle bulk was normal. I did not see fasciculations. Arms and legs were symmetric. Vibration sensation was normal. Temperature and pinprick sensation was normal. Rapid alternating movements were normal. There was no dysmetria. There was no intention tremor. Gait was deferred due to bedrest. Arm and leg reflexes were symmetric. Lundberg's sign was absent. Plantar responses were flexor. Results Result Diagram: 11/20/18 0535 11/20/18 0535 Results 24hrs Laboratory Tests Test 11/19/18 12:41 11/19/18 14:20 11/19/18 16:57 11/19/18 21:42 Bedside Glucose 247 H 270 H 228 H Ammonia 24 Test 11/20/18 04:50 11/20/18 05:35 11/20/18 08:38 Bedside Glucose 177 159 White Blood Count 15.8 #H Red Blood Count 3.78 L Hemoglobin 11.4 L Hematocrit 35.4 L Mean Corpuscular Volume 93.7 Mean Corpuscular 30.2 Hemoglobin Mean Corpuscular 32.2 Hemoglobin Concent Red Cell Distribution 13.9 Width Platelet Count 408 Mean Platelet Volume 10.5 H Immature Granulocytes % 1.200 H Neutrophils % 77.8 H Lymphocytes % 10.0 L Monocytes % 9.5 Eosinophils % 1.2 Basophils % 0.3 Nucleated Red Blood 0.0 Cells % Immature Granulocytes # 0.190 H Neutrophils # 12.3 H Lymphocytes # 1.6 Monocytes # 1.5 H Eosinophils # 0.2 Basophils # 0.0 Nucleated Red Blood 0.0 Cells # Sodium Level 139 Potassium Level 4.5 Chloride Level 106 Carbon Dioxide Level 25 Anion Gap 8 Blood Urea Nitrogen 37 H Creatinine 1.07 Est Glomerular Filtrat Rate mL/min Glucose Level 186 # Calcium Level 8.5 Phosphorus Level 3.6 Magnesium Level 2.5 Medications Medication Current Medications Ergocalciferol (Drisdol) 50,000 unit Sa PO Last administered on 11/09/18at 09:28; Admin Dose 50,000 UNIT; Start 11/09/18 at 09:00 Miscellaneous Medication (Bystolic) 20 mg DAILY PO Last administered on 11/11/18at 09:03; Admin Dose 20 MG; Start 11/04/18 at 09:00; Status Hold Clonidine (Catapres) 0.1 mg Q6H PRN PO SBP>160 Last administered on 11/19/18 03:04; Admin Dose 0.1 MG; Start 11/04/18 at 09:00 IV Flush (NS 3 ml) 3 ml PER PROTOCOL IV ; Start 11/04/18 at 09:00 Ondansetron HCl (Zofran Inj) 4 mg Q6H PRN IV NAUSEA/VOMITING; Start 11/04/18 at 09:00 Acetaminophen (Tylenol Tab) 650 mg Q6H PRN PO .PAIN 1-3 OR TEMP; Start 11/04/18 at 09:00 Miscellaneous Information 1 ea NOTE XX ; Start 11/04/18 at 09:00 Glucose (Glutose) 15 gm Q15M PRN PO DECREASED GLUCOSE; Start 11/04/18 at 09:00 Glucose (Glutose) 22.5 gm Q15M PRN PO DECREASED GLUCOSE; Start 11/04/18 at 09:00 Dextrose (D50w Syringe) 25 ml Q15M PRN IV DECREASED GLUCOSE; Start 11/04/18 at 09:00 Dextrose (D50w Syringe) 50 ml Q15M PRN IV DECREASED GLUCOSE; Start 11/04/18 at 09:00 Glucagon (Glucagen) 1 mg Q15M PRN IM DECREASED GLUCOSE; Start 11/04/18 at 09:00 Glucose (Glutose) 15 gm Q15M PRN BUCCAL DECREASED GLUCOSE; Start 11/04/18 at 09:00 Miscellaneous Information Patients own medicat... BID@10,16 XX Last administered on 11/19/18 15:11; Admin Dose 1 EA; Start 11/04/18 at 16:00 Povidone Iodine (Povidone-Iodine) 1 applic BID TOP Last administered on 11/19/18 21:31; Admin Dose 1 APPLIC; Start 11/05/18 at 21:00 Sodium Hypochlorite (Dakins Diluted ()) 1 applic BID TP Last administered on 11/19/18 21:31; Admin Dose 1 APPLIC; Start 11/07/18 at 09:00 Hydralazine HCl (Apresoline) 10 mg Q4H PRN IV sbp >160 Last administered on 11/19/18 05:33; Admin Dose 10 MG; Start 11/08/18 at 09:00 Famotidine (Pepcid) 20 mg DAILY NGT Last administered on 11/20/18 10:51; Admin Dose 20 MG; Start 11/11/18 at 09:30 Atropine Sulfate (Atropine) 0.5 mg PRN PRN IV SYMPTOMATIC BRADYCARDIA; Start 11/11/18 at 23:00 Aspirin (Aspirin) 325 mg DAILY GTB Last administered on 11/20/18 10:50; Admin Dose 325 MG; Start 11/13/18 at 09:00 Clopidogrel Bisulfate (plaVIX) 75 mg DAILY GTB Last administered on 11/20/18 10:51; Admin Dose 75 MG; Start 11/13/18 at 09:00 Heparin Sodium (Porcine) (Heparin (5000 Units/1ml)) 5,000 unit BID SC Last administered on 11/19/18 22:04; Admin Dose 5,000 UNIT; Start 11/14/18 at 21:00 Bisacodyl (Dulcolax Supp) 10 mg DAILY PRN [place] CONSTIPATION Last administered on 11/14/18 16:43; Admin Dose 10 MG; Start 11/14/18 at 16:30 Dextrose (D50w Syringe) 25 ml Q15M PRN IV .DECREASED GLUCOSE; Start 11/15/18 at 06:30 Dextrose (D50w Syringe) 50 ml Q15M PRN IV .DECREASED GLUCOSE; Start 11/15/18 at 06:30 Meropenem/Sodium Chloride 50 ml @ 100 mls/hr Q12 IVPB Last administered on 11/20/18 10:50; Admin Dose 100 MLS/HR; Start 11/15/18 at 14:30 IV Flush (NS 10 ml) 10 ml PRN PRN IV FLUSH LINE; Start 11/15/18 at 15:30 Furosemide (Lasix) 40 mg DAILY@0600 IV Last administered on 11/18/18 05:26; Admin Dose 40 MG; Start 11/17/18 at 06:00 Fluconazole (Diflucan) 100 mg DAILY PO Last administered on 11/20/18 10:53; Admin Dose 100 MG; Start 11/16/18 at 14:00 Polyethylene Glycol (Miralax) 17 gm DAILY PRN NGT constipation; Start 11/17/18 at 09:00 Senna/Docusate Sodium (Senokot-S) 1 tab BID PRN NGT constipation; Start 11/17/18 at 09:00 Amlodipine Besylate (Norvasc) 5 mg DAILY PO Last administered on 11/20/18 10:53; Admin Dose 5 MG; Start 11/19/18 at 09:00 Diagnostic Test (Pha) (Accu-Chek) 1 ea 02 XX ; Start 11/19/18 at 02:00 Gabapentin (Neurontin Liquid) 300 mg BID PO Last administered on 11/19/18 22:33; Admin Dose 300 MG; Start 11/18/18 at 21:00 Hydralazine HCl (Apresoline) 100 mg TID PO Last administered on 11/20/18 10:51; Admin Dose 100 MG; Start 11/18/18 at 21:00 Levofloxacin (Levaquin) 250 mg DAILY@06 PO Last administered on 11/19/18 05:31; Admin Dose 250 MG; Start 11/19/18 at 06:00 Sodium Chloride 1,000 ml @ 40 mls/hr Q24H IV Last administered on 11/19/18 21:48; Admin Dose 40 MLS/HR; Start 11/18/18 at 22:00 Diagnostic Test (Pha) (Accu-Chek) 1 ea 02 XX ; Start 11/20/18 at 02:00 Insulin Aspart (Novolog Insulin Pen) NOVOLOG *MODERATE* ALGORI... Q4 SC Last administered on 11/20/18 05:05; Admin Dose 2 UNIT; Start 11/19/18 at 09:00 Methylprednisolone Sodium Succinate (Solu-Medrol) 40 mg DAILY IV Last administered on 11/20/18 10:50; Admin Dose 40 MG; Start 11/20/18 at 09:00 Labetalol HCl (Labetalol) 10 mg Q4H PRN IV sbp >160 Last administered on 19:13; Admin Dose 10 MG; Start 11/19/18 at 10:00 Insulin Glargine (Lantus) 20 units DAILY@0800 SC ; Start 11/20/18 at 08:00 Ascorbic Acid (Vitamin C) 500 mg DAILY PO Last administered on 11/20/18 10:53; Admin Dose 500 MG; Start 11/20/18 at 09:00 Zinc Sulfate (Zinc Sulfate) 220 mg DAILY PO Last administered on 11/20/18 10:53; Admin Dose 220 MG; Start 11/20/18 at 09:00 Atorvastatin Calcium (Lipitor) 80 mg QHS PO Last administered on 11/19/18at 21:47; Admin Dose 80 MG; Start 11/19/18 at 21:00 ALBAN WOLF Nov 20, 2018 11:02
--- NOTE | 2018-11-20 11:24 | QN ---
Documentation Comment Awake and more alert. Failed swallow eval. AFVSS L leg incisions are clean and dry, 2+ graft and PT pulse, foot is warm and hyperemic, 5th toe gangrene dry, no pus Cr 1 WBC 15 - improving s/p LLE bypass, aspiration and respiratory failure - cont ASA / Plavix - 5th toe amputation per Dr. Beata FOREMAN,KLEVER Ernst MD Nov 20, 2018 11:24
[2018-11-20 11:38] VITALS: BP 163/76; PULSE 84; RESP 22
[2018-11-20] MEDS: INSULIN GLARGINE [LANTus] (100 UNITS/ML) SYG SC SCH (11:46)
[2018-11-20] MEDS: HEPARIN 5,000 UNIT/1 ML VIAL SC SCH ×2 (11:47→22:08)
--- NOTE | 2018-11-20 13:54 | CONS ---
Assessment/Plan Assessment/Plan Hospital Course (Demo Recall) IMPRESSION: 1. Preoperative evaluation prior to possible need for peripheral revascularization surgery.-neg trop x 3 and NL EF by echo with no sig valve abnl. Echo repeat 11/13 with NL EF 2. Peripheral arterial disease with nonhealing gangrenous changes in left toe ulceration. 3. Hypertension, under reasonable control on current medications. 4. Dyslipidemia. 5. Diabetes mellitus. 6. s/p cardiopulmonary arrest 7. Bradycardic intermittent by tele 8. Positive troponin after arrest-? secondary to or primary to arrest, likely secondary to as no signifcant uptrend and now downtrended to negative 9. Resp failure-s/p extubation 10. CVA-? acute Recc: -Now on tele -trend cardiac enzymes which have downtrended to negative in the setting of renal failure -Continue asa/plavix/statin -serial ecg's -Continue abx's and f/u cx data -continue steroids/bronchodilators -local wound care -Continue hydralazine and will make further increase of CCB to improve BP control -Bystolic still held given initial bradycardia -heparin was d/c'd secondary to anemia requiring transfusions -follow volume status on daily lasix diuresis -follow MS closely with ongoing neuro eval for possible CVA Consultation Date/Type/Reason Admit Date/Time Nov 04, 2018 at 07:34 Initial Consult Date 11/06/18 Type of Consult Cardiology Reason for Consultation Preop/HTN/PAD Requesting Provider: KARL WOOD MD Date/Time of Note DATE: 11/20/18 TIME: 13:47 Exam/Review of Systems Vital Signs Vitals Vital Signs Date Temp Pulse Resp B/P (MAP) Pulse Ox O2 O2 Flow FiO2 Time Delivery Rate 11/20/18 98.0 84 22 163/76 95 Room Air 11:38 (105) Nasal Cannula 11/20/18 2.0 08:02 11/18/18 40 09:09 Intake and Output 11/19/18 11/19/18 11/20/18 1414:59 22:59 06:59 IntakeIntake Total 370 ml 250 ml OutputOutput Total 1700 ml 1475 ml 800 ml BalanceBalance -1330 ml -1225 ml -800 ml Exam Exam Review of Systems: CONSTITUTIONAL: No fevers, chills. PULMONARY: No sob CARDIOVASCULAR: No chest pain/palpitations GASTROINTESTINAL: No nausea/vomiting. GENITOURINARY: No hematuria/dysuria. MUSCULOSKELETAL: No myagias/arthalgias. PSYCHIATRIC: The patient denies depression. NEUROLOGIC: No weakness Constitutional: alert Psych: no complaints Head: normocephalic ENMT: mucosa pink and moist Respiratory: clear to auscultation Cardiovascular: regular rate and rhythm Gastrointestinal: soft, non-tender Musculoskeletal: muscle tone (normal) Extremities: edema (none) Neurological: other (No focal deficits) Labs Result Diagram: 11/20/18 0535 11/20/18 0535 Results 24hrs Laboratory Tests Test 11/19/18 14:20 11/19/18 16:57 11/19/18 21:42 11/20/18 04:50 Ammonia 24 Bedside Glucose 270 H 228 H 177 Test 11/20/18 05:35 11/20/18 08:38 11/20/18 13:33 White Blood Count 15.8 #H Red Blood Count 3.78 L Hemoglobin 11.4 L Hematocrit 35.4 L Mean Corpuscular Volume 93.7 Mean Corpuscular 30.2 Hemoglobin Mean Corpuscular 32.2 Hemoglobin Concent Red Cell Distribution 13.9 Width Platelet Count 408 Mean Platelet Volume 10.5 H Immature Granulocytes % 1.200 H Neutrophils % 77.8 H Lymphocytes % 10.0 L Monocytes % 9.5 Eosinophils % 1.2 Basophils % 0.3 Nucleated Red Blood 0.0 Cells % Immature Granulocytes # 0.190 H Neutrophils # 12.3 H Lymphocytes # 1.6 Monocytes # 1.5 H Eosinophils # 0.2 Basophils # 0.0 Nucleated Red Blood 0.0 Cells # Sodium Level 139 Potassium Level 4.5 Chloride Level 106 Carbon Dioxide Level 25 Anion Gap 8 Blood Urea Nitrogen 37 H Creatinine 1.07 Est Glomerular Filtrat Rate mL/min Glucose Level 186 # Calcium Level 8.5 Phosphorus Level 3.6 Magnesium Level 2.5 Bedside Glucose 159 221 H Medications Medications Current Medications Ergocalciferol (Drisdol) 50,000 unit Sa PO Last administered on 11/09/18at 09:28; Admin Dose 50,000 UNIT; Start 11/09/18 at 09:00 Miscellaneous Medication (Bystolic) 20 mg DAILY PO Last administered on 11/11/18at 09:03; Admin Dose 20 MG; Start 11/04/18 at 09:00; Status Hold Clonidine (Catapres) 0.1 mg Q6H PRN PO SBP>160 Last administered on 11/19/18at 03:04; Admin Dose 0.1 MG; Start 11/04/18 at 09:00 IV Flush (NS 3 ml) 3 ml PER PROTOCOL IV ; Start 11/04/18 at 09:00 Ondansetron HCl (Zofran Inj) 4 mg Q6H PRN IV NAUSEA/VOMITING; Start 11/04/18 at 09:00 Acetaminophen (Tylenol Tab) 650 mg Q6H PRN PO .PAIN 1-3 OR TEMP; Start 11/04/18 at 09:00 Miscellaneous Information 1 ea NOTE XX ; Start 11/04/18 at 09:00 Glucose (Glutose) 15 gm Q15M PRN PO DECREASED GLUCOSE; Start 11/04/18 at 09:00 Glucose (Glutose) 22.5 gm Q15M PRN PO DECREASED GLUCOSE; Start 11/04/18 at 09:00 Dextrose (D50w Syringe) 25 ml Q15M PRN IV DECREASED GLUCOSE; Start 11/04/18 at 09:00 Dextrose (D50w Syringe) 50 ml Q15M PRN IV DECREASED GLUCOSE; Start 11/04/18 at 09:00 Glucagon (Glucagen) 1 mg Q15M PRN IM DECREASED GLUCOSE; Start 11/04/18 at 09:00 Glucose (Glutose) 15 gm Q15M PRN BUCCAL DECREASED GLUCOSE; Start 11/04/18 at 09:00 Miscellaneous Information Patients own medicat... BID@10,16 XX Last administered on 11/19/18at 15:11; Admin Dose 1 EA; Start 11/04/18 at 16:00 Povidone Iodine (Povidone-Iodine) 1 applic BID TOP Last administered on 11/19/18 21:31; Admin Dose 1 APPLIC; Start 11/05/18 at 21:00 Sodium Hypochlorite (Dakins Diluted ()) 1 applic BID TP Last administered on 11/19/18at 21:31; Admin Dose 1 APPLIC; Start 11/07/18 at 09:00 Hydralazine HCl (Apresoline) 10 mg Q4H PRN IV sbp >160 Last administered on 11/19/18at 05:33; Admin Dose 10 MG; Start 11/08/18 at 09:00 Famotidine (Pepcid) 20 mg DAILY NGT Last administered on 11/20/18 10:51; Admin Dose 20 MG; Start 11/11/18 at 09:30 Atropine Sulfate (Atropine) 0.5 mg PRN PRN IV SYMPTOMATIC BRADYCARDIA; Start 11/11/18 at 23:00 Aspirin (Aspirin) 325 mg DAILY GTB Last administered on 11/20/18 10:50; Admin Dose 325 MG; Start 11/13/18 at 09:00 Clopidogrel Bisulfate (plaVIX) 75 mg DAILY GTB Last administered on 11/20/18 10:51; Admin Dose 75 MG; Start 11/13/18 at 09:00 Heparin Sodium (Porcine) (Heparin (5000 Units/1ml)) 5,000 unit BID SC Last administered on 11/20/18 11:47; Admin Dose 5,000 UNIT; Start 11/14/18 at 21:00 Bisacodyl (Dulcolax Supp) 10 mg DAILY PRN [place] CONSTIPATION Last administered on 11/14/18at 16:43; Admin Dose 10 MG; Start 11/14/18 at 16:30 Dextrose (D50w Syringe) 25 ml Q15M PRN IV .DECREASED GLUCOSE; Start 11/15/18 at 06:30 Dextrose (D50w Syringe) 50 ml Q15M PRN IV .DECREASED GLUCOSE; Start 11/15/18 at 06:30 Meropenem/Sodium Chloride 50 ml @ 100 mls/hr Q12 IVPB Last administered on 11/20/18at 10:50; Admin Dose 100 MLS/HR; Start 11/15/18 at 14:30 IV Flush (NS 10 ml) 10 ml PRN PRN IV FLUSH LINE; Start 11/15/18 at 15:30 Furosemide (Lasix) 40 mg DAILY@0600 IV Last administered on 11/18/18 05:26; Admin Dose 40 MG; Start 11/17/18 at 06:00 Fluconazole (Diflucan) 100 mg DAILY PO Last administered on 11/20/18 10:53; Admin Dose 100 MG; Start 11/16/18 at 14:00 Polyethylene Glycol (Miralax) 17 gm DAILY PRN NGT constipation; Start 11/17/18 at 09:00 Senna/Docusate Sodium (Senokot-S) 1 tab BID PRN NGT constipation; Start 11/17/18 at 09:00 Amlodipine Besylate (Norvasc) 5 mg DAILY PO Last administered on 11/20/18 10:53; Admin Dose 5 MG; Start 11/19/18 at 09:00 Diagnostic Test (Pha) (Accu-Chek) 1 ea 02 XX ; Start 11/19/18 at 02:00 Gabapentin (Neurontin Liquid) 300 mg BID PO Last administered on 11/19/18 22:33; Admin Dose 300 MG; Start 11/18/18 at 21:00 Hydralazine HCl (Apresoline) 100 mg TID PO Last administered on 11/20/18 10:51; Admin Dose 100 MG; Start 11/18/18 at 21:00 Levofloxacin (Levaquin) 250 mg DAILY@06 PO Last administered on 11/19/18 05:31; Admin Dose 250 MG; Start 11/19/18 at 06:00 Sodium Chloride 1,000 ml @ 40 mls/hr Q24H IV Last administered on 11/19/18 21:48; Admin Dose 40 MLS/HR; Start 11/18/18 at 22:00 Diagnostic Test (Pha) (Accu-Chek) 1 ea 02 XX ; Start 11/20/18 at 02:00 Insulin Aspart (Novolog Insulin Pen) NOVOLOG *MODERATE* ALGORI... Q4 SC Last administered on 11/20/18 13:45; Admin Dose 6 UNIT; Start 11/19/18 at 09:00 Methylprednisolone Sodium Succinate (Solu-Medrol) 40 mg DAILY IV Last adminis tered on 11/20/18 10:50; Admin Dose 40 MG; Start 11/20/18 at 09:00 Labetalol HCl (Labetalol) 10 mg Q4H PRN IV sbp >160 Last administered on 11/19/18 19:13; Admin Dose 10 MG; Start 11/19/18 at 10:00 Insulin Glargine (Lantus) 20 units DAILY@0800 SC Last administered on 11/20/18 11:46; Admin Dose 20 UNITS; Start 11/20/18 at 08:00 Ascorbic Acid (Vitamin C) 500 mg DAILY PO Last administered on 7/3/19at 10:53; Admin Dose 500 MG; Start 11/20/18 at 09:00 Zinc Sulfate (Zinc Sulfate) 220 mg DAILY PO Last administered on 11/20/18at 10:53; Admin Dose 220 MG; Start 11/20/18 at 09:00 Atorvastatin Calcium (Lipitor) 80 mg QHS PO Last administered on 11/19/18at 21:47; Admin Dose 80 MG; Start 11/19/18 at 21:00 KLEVER HUNT Nov 20, 2018 13:54
--- NOTE | 2018-11-20 14:04 | CONS ---
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 Please see full note in the chart Endotracheal aspirate grew Alice albicans, left foot wound culture grew Klebsiella pneumoniae ESBL and Stenotrophomonas maltophilia Antimicrobials: Meropenem, Levaquin, fluconazole Indwelling: Vora, PICC line Physical examination: Well-developed elderly man who is in no distress head atraumatic normocephalic neck is supple chest rise symmetrical breath sounds diminished bases heart S1-S2 abdomen soft bowel sounds present extre mities with left foot dressing intact Assessment: 1. Status post cardiac arrest 2. Non-ST elevation LA 3. Status post acute respiratory failure, possibly aspirated 4. Left foot gangrene 5. Peripheral arterial disease status post left femoral to posterior tibial bypass 11/08/18 6. Diabetes 7. History of left foot second toe amputation 8. Acute kidney insufficiency 9. Acute encephalopathy with a new radiographic findings per CT yesterday Plan: Clinically unchanged, on appropriate antibiotic regimen, neurology recommendations noted, patient refused MRI of the brain Consultation Date/Type/Reason Admit Date/Time Nov 04, 2018 at 07:34 Initial Consult Date Type of Consult id Requesting Provider: KARL WOOD MD Date/Time of Note DATE: 11/20/18 TIME: 14:03 Exam/Review of Systems Exam Vitals Vital Signs Date Temp Pulse Resp B/P (MAP) Pulse Ox O2 O2 Flow FiO2 Time Delivery Rate 11/20/18 98.0 84 22 163/76 95 Room Air 11:38 (105) Nasal Cannula 11/20/18 2.0 08:02 11/18/18 40 09:09 Intake and Output 11/19/18 11/19/18 11/20/18 1414:59 22:59 06:59 IntakeIntake Total 370 ml 250 ml OutputOutput Total 1700 ml 1475 ml 800 ml BalanceBalance -1330 ml -1225 ml -800 ml Results Result Diagram: 11/20/18 0535 11/20/18 0535 Results 24hrs Laboratory Tests Test 11/19/18 14:20 11/19/18 16:57 11/19/18 21:42 11/20/18 04:50 Ammonia 24 Bedside Glucose 270 H 228 H 177 Test 11/20/18 05:35 11/20/18 08:38 11/20/18 13:33 White Blood Count 15.8 #H Red Blood Count 3.78 L Hemoglobin 11.4 L Hematocrit 35.4 L Mean Corpuscular Volume 93.7 Mean Corpuscular 30.2 Hemoglobin Mean Corpuscular 32.2 Hemoglobin Concent Red Cell Distribution 13.9 Width Platelet Count 408 Mean Platelet Volume 10.5 H Immature Granulocytes % 1.200 H Neutrophils % 77.8 H Lymphocytes % 10.0 L Monocytes % 9.5 Eosinophils % 1.2 Basophils % 0.3 Nucleated Red Blood 0.0 Cells % Immature Granulocytes # 0.190 H Neutrophils # 12.3 H Lymphocytes # 1.6 Monocytes # 1.5 H Eosinophils # 0.2 Basophils # 0.0 Nucleated Red Blood 0.0 Cells # Sodium Level 139 Potassium Level 4.5 Chloride Level 106 Carbon Dioxide Level 25 Anion Gap 8 Blood Urea Nitrogen 37 H Creatinine 1.07 Est Glomerular Filtrat Rate mL/min Glucose Level 186 # Calcium Level 8.5 Phosphorus Level 3.6 Magnesium Level 2.5 Bedside Glucose 159 221 H Medications Medication Current Medications Ergocalciferol (Drisdol) 50,000 unit Sa PO Last administered on 11/09/18at 09:28; Admin Dose 50,000 UNIT; Start 11/09/18 at 09:00 Miscellaneous Medication (Bystolic) 20 mg DAILY PO Last administered on 11/11/18at 09:03; Admin Dose 20 MG; Start 11/04/18 at 09:00; Status Hold Clonidine (Catapres) 0.1 mg Q6H PRN PO SBP>160 Last administered on 11/19/18at 03:04; Admin Dose 0.1 MG; Start 11/04/18 at 09:00 IV Flush (NS 3 ml) 3 ml PER PROTOCOL IV ; Start 11/04/18 at 09:00 Ondansetron HCl (Zofran Inj) 4 mg Q6H PRN IV NAUSEA/VOMITING; Start 11/04/18 at 09:00 Acetaminophen (Tylenol Tab) 650 mg Q6H PRN PO .PAIN 1-3 OR TEMP; Start 11/04/18 at 09:00 Miscellaneous Information 1 ea NOTE XX ; Start 11/04/18 at 09:00 Glucose (Glutose) 15 gm Q15M PRN PO DECREASED GLUCOSE; Start 11/04/18 at 09:00 Glucose (Glutose) 22.5 gm Q15M PRN PO DECREASED GLUCOSE; Start 11/04/18 at 09:0 0 Dextrose (D50w Syringe) 25 ml Q15M PRN IV DECREASED GLUCOSE; Start 11/04/18 at 09:00 Dextrose (D50w Syringe) 50 ml Q15M PRN IV DECREASED GLUCOSE; Start 11/04/18 at 09:00 Glucagon (Glucagen) 1 mg Q15M PRN IM DECREASED GLUCOSE; Start 11/04/18 at 09:00 Glucose (Glutose) 15 gm Q15M PRN BUCCAL DECREASED GLUCOSE; Start 11/04/18 at 09:00 Miscellaneous Information Patients own medicat... BID@10,16 XX Last administered on 11/19/18 15:11; Admin Dose 1 EA; Start 11/04/18 at 16:00 Povidone Iodine (Povidone-Iodine) 1 applic BID TOP Last administered on 11/19/18 21:31; Admin Dose 1 APPLIC; Start 11/05/18 at 21:00 Sodium Hypochlorite (Dakins Diluted (40)) 1 applic BID TP Last administered on 11/19/18 21:31; Admin Dose 1 APPLIC; Start 11/07/18 at 09:00 Hydralazine HCl (Apresoline) 10 mg Q4H PRN IV sbp >160 Last administered on 11/19/18 05:33; Admin Dose 10 MG; Start 11/08/18 at 09:00 Famotidine (Pepcid) 20 mg DAILY NGT Last administered on 11/20/18 10:51; Admin Dose 20 MG; Start 11/11/18 at 09:30 Atropine Sulfate (Atropine) 0.5 mg PRN PRN IV SYMPTOMATIC BRADYCARDIA; Start 11/11/18 at 23:00 Clopidogrel Bisulfate (plaVIX) 75 mg DAILY GTB Last administered on 11/20/18 10:51; Admin Dose 75 MG; Start 11/13/18 at 09:00 Heparin Sodium (Porcine) (Heparin (5000 Units/1ml)) 5,000 unit BID SC Last administered on 11/20/18 11:47; Admin Dose 5,000 UNIT; Start 11/14/18 at 21:00 Bisacodyl (Dulcolax Supp) 10 mg DAILY PRN [place] CONSTIPATION Last administered on 11/14/18at 16:43; Admin Dose 10 MG; Start 11/14/18 at 16:30 Dextrose (D50w Syringe) 25 ml Q15M PRN IV .DECREASED GLUCOSE; Start 11/15/18 at 06:30 Dextrose (D50w Syringe) 50 ml Q15M PRN IV .DECREASED GLUCOSE; Start 11/15/18 at 06:30 Meropenem/Sodium Chloride 50 ml @ 100 mls/hr Q12 IVPB Last administered on 11/20/18at 10:50; Admin Dose 100 MLS/HR; Start 11/15/18 at 14:30 IV Flush (NS 10 ml) 10 ml PRN PRN IV FLUSH LINE; Start 11/15/18 at 15:30 Furosemide (Lasix) 40 mg DAILY@0600 IV Last administered on 11/18/18at 05:26; Admin Dose 40 MG; Start 11/17/18 at 06:00 Fluconazole (Diflucan) 100 mg DAILY PO Last administered on 11/20/18at 10:53; Admin Dose 100 MG; Start 11/16/18 at 14:00 Polyethylene Glycol (Miralax) 17 gm DAILY PRN NGT constipation; Start 11/17/18 at 09:00 Senna/Docusate Sodium (Senokot-S) 1 tab BID PRN NGT constipation; Start 11/17/18 at 09:00 Diagnostic Test (Pha) (Accu-Chek) 1 ea 02 XX ; Start 11/19/18 at 02:00 Gabapentin (Neurontin Liquid) 300 mg BID PO Last administered on 11/19/18at 22:33; Admin Dose 300 MG; Start 11/18/18 at 21:00 Hydralazine HCl (Apresoline) 100 mg TID PO Last administered on 11/20/18at 10:51; Admin Dose 100 MG; Start 11/18/18 at 21:00 Levofloxacin (Levaquin) 250 mg DAILY@06 PO Last administered on 11/19/18 05:31; Admin Dose 250 MG; Start 11/19/18 at 06:00 Sodium Chloride 1,000 ml @ 40 mls/hr Q24H IV Last administered on 11/19/18at 21:48; Admin Dose 40 MLS/HR; Start 11/18/18 at 22:00 Diagnostic Test (Pha) (Accu-Chek) 1 ea 02 XX ; Start 11/20/18 at 02:00 Insulin Aspart (Novolog Insulin Pen) NOVOLOG *MODERATE* ALGORI... Q4 SC Last administered on 11/20/18 13:45; Admin Dose 6 UNIT; Start 11/19/18 at 09:00 Methylprednisolone Sodium Succinate (Solu-Medrol) 40 mg DAILY IV Last admi nistered on 11/20/18 10:50; Admin Dose 40 MG; Start 11/20/18 at 09:00 Labetalol HCl (Labetalol) 10 mg Q4H PRN IV sbp >160 Last administered on 11/19/18 19:13; Admin Dose 10 MG; Start 11/19/18 at 10:00 Insulin Glargine (Lantus) 20 units DAILY@0800 SC Last administered on 11/20/18 11:46; Admin Dose 20 UNITS; Start 11/20/18 at 08:00 Ascorbic Acid (Vitamin C) 500 mg DAILY PO Last administered on 11/20/18 10:53; Admin Dose 500 MG; Start 11/20/18 at 09:00 Zinc Sulfate (Zinc Sulfate) 220 mg DAILY PO Last administered on 11/20/18 10:53; Admin Dose 220 MG; Start 11/20/18 at 09:00 Atorvastatin Calcium (Lipitor) 80 mg QHS PO Last administered on 11/19/18 21:47; Admin Dose 80 MG; Start 11/19/18 at 21:00 Amlodipine Besylate (Norvasc) 5 mg BID PO ; Start 11/20/18 at 21:00 Aspirin (Aspirin) 81 mg DAILY GTB ; Start 11/21/18 at 09:00 HERRERA MURILLO NP Nov 20, 2018 14:04
[2018-11-20] MEDS: GABAPENTIN (50 MG/ML PO SYG) PO SCH ×2 (14:42→23:32)
[2018-11-20] MEDS: hydrALAzine 20 MG INJ IV PRN (14:44)
[2018-11-20 16:11] VITALS: BP 144/67; PULSE 96; RESP 22
--- NOTE | 2018-11-20 17:27 | CONS ---
Consult Date/Type/Reason Admit Date/Time Nov 04, 2018 at 07:34 Initial Consult Date 11/11/18 Type of Consult Pulmonary Requesting Provider: KARL WOOD MD Date/Time of Note DATE: 11/20/18 TIME: 17:26 Subjective Respiratory status stable post extubation. Objective Vital Signs Date Temp Pulse Resp B/P (MAP) Pulse Ox O2 O2 Flow FiO2 Time Delivery Rate 11/20/18 98.0 96 22 144/67 96 Nasal 2.0 16:11 (92) Cannula 11/18/18 40 09:09 Intake and Output 11/19/18 11/19/18 11/20/18 1515:00 23:00 07:00 IntakeIntake Total 370 ml 210 ml OutputOutput Total 1675 ml 1300 ml 800 ml BalanceBalance -1305 ml -1090 ml -800 ml Exam GENERAL: Well-nourished, well-developed gentleman, VITAL SIGNS: NECK: Supple. No JVD or lymphadenopathy. CARDIAC: S1, S2, no added sounds or murmurs. CHEST: Diminished air entry bilaterally. ABDOMEN: Soft, nontender. No guarding or rebound. EXTREMITIES: No cyanosis, clubbing, 1+ edema. NEUROLOGIC: Generalized weakness. Vent Setting Ventilator Support Mode: CPAP, PS, SPONT Fraction of Inspired Oxygen pe: 40 Positive End Expiratory Pressu: 5.0 Results/Medications Result Diagram: 11/20/18 0535 11/20/18 0535 Results 24 hrs Laboratory Tests Test 11/19/18 21:42 11/20/18 04:50 11/20/18 05:35 11/20/18 08:38 Bedside Glucose 228 H 177 159 White Blood Count 15.8 #H Red Blood Count 3.78 L Hemoglobin 11.4 L Hematocrit 35.4 L Mean Corpuscular Volume 93.7 Mean Corpuscular 30.2 Hemoglobin Mean Corpuscular 32.2 Hemoglobin Concent Red Cell Distribution 13.9 Width Platelet Count 408 Mean Platelet Volume 10.5 H Immature Granulocytes % 1.200 H Neutrophils % 77.8 H Lymphocytes % 10.0 L Monocytes % 9.5 Eosinophils % 1.2 Basophils % 0.3 Nucleated Red Blood 0.0 Cells % Immature Granulocytes # 0.190 H Neutrophils # 12.3 H Lymphocytes # 1.6 Monocytes # 1.5 H Eosinophils # 0.2 Basophils # 0.0 Nucleated Red Blood 0.0 Cells # Sodium Level 139 Potassium Level 4.5 Chloride Level 106 Carbon Dioxide Level 25 Anion Gap 8 Blood Urea Nitrogen 37 H Creatinine 1.07 Est Glomerular Filtrat Rate mL/min Glucose Level 186 # Calcium Level 8.5 Phosphorus Level 3.6 Magnesium Level 2.5 Test 11/20/18 13:33 Bedside Glucose 221 H Medications Current Medications Ergocalciferol (Drisdol) 50,000 unit Sa PO Last administered on 11/09/18at 09:28; Admin Dose 50,000 UNIT; Start 11/09/18 at 09:00 Miscellaneous Medication (Bystolic) 20 mg DAILY PO Last administered on 11/11/18at 09:03; Admin Dose 20 MG; Start 11/04/18 at 09:00; Status Hold Clonidine (Catapres) 0.1 mg Q6H PRN PO SBP>160 Last administered on 11/19/18at 03:04; Admin Dose 0.1 MG; Start 11/04/18 at 09:00 IV Flush (NS 3 ml) 3 ml PER PROTOCOL IV ; Start 11/04/18 at 09:00 Ondansetron HCl (Zofran Inj) 4 mg Q6H PRN IV NAUSEA/VOMITING; Start 11/04/18 at 09:00 Acetaminophen (Tylenol Tab) 650 mg Q6H PRN PO .PAIN 1-3 OR TEMP; Start 11/04/18 at 09:00 Miscellaneous Information 1 ea NOTE XX ; Start 11/04/18 at 09:00 Glucose (Glutose) 15 gm Q15M PRN PO DECREASED GLUCOSE; Start 11/04/18 at 09:00 Glucose (Glutose) 22.5 gm Q15M PRN PO DECREASED GLUCOSE; Start 11/04/18 at 09:00 Dextrose (D50w Syringe) 25 ml Q15M PRN IV DECREASED GLUCOSE; Start 11/04/18 at 09:00 Dextrose (D50w Syringe) 50 ml Q15M PRN IV DECREASED GLUCOSE; Start 11/04/18 at 09:00 Glucagon (Glucagen) 1 mg Q15M PRN IM DECREASED GLUCOSE; Start 11/04/18 at 09:00 Glucose (Glutose) 15 gm Q15M PRN BUCCAL DECREASED GLUCOSE; Start 11/04/18 at 09:00 Miscellaneous Information Patients own medicat... BID@ XX Last administered on 11/20/18 16:16; Admin Dose 1 EA; Start 11/04/18 at 16:00 Povidone Iodine (Povidone-Iodine) 1 applic BID TOP Last administered on 11/20/18 09:00; Admin Dose 1 APPLIC; Start 11/05/18 at 21:00 Sodium Hypochlorite (Dakins Diluted (40)) 1 applic BID TP Last administered on 11/20/18 09:00; Admin Dose 1 APPLIC; Start 11/07/18 at 09:00 Hydralazine HCl (Apresoline) 10 mg Q4H PRN IV sbp >160 Last administered on 11/20/18 14:44; Admin Dose 10 MG; Start 11/08/18 at 09:00 Famotidine (Pepcid) 20 mg DAILY NGT Last administered on 11/20/18 10:51; Admin Dose 20 MG; Start 11/11/18 at 09:30 Atropine Sulfate (Atropine) 0.5 mg PRN PRN IV SYMPTOMATIC BRADYCARDIA; Start 11/11/18 at 23:00 Clopidogrel Bisulfate (plaVIX) 75 mg DAILY GTB Last administered on 11/20/18 10:51; Admin Dose 75 MG; Start 11/13/18 at 09:00 Heparin Sodium (Porcine) (Heparin (5000 Units/1ml)) 5,000 unit BID SC Last administered on 11/20/18 11:47; Admin Dose 5,000 UNIT; Start 11/14/18 at 21:00 Bisacodyl (Dulcolax Supp) 10 mg DAILY PRN [place] CONSTIPATION Last administered on 11/14/18 16:43; Admin Dose 10 MG; Start 11/14/18 at 16:30 Dextrose (D50w Syringe) 25 ml Q15M PRN IV .DECREASED GLUCOSE; Start 11/15/18 at 06:30 Dextrose (D50w Syringe) 50 ml Q15M PRN IV .DECREASED GLUCOSE; Start 11/15/18 at 06:30 Meropenem/Sodium Chloride 50 ml @ 100 mls/hr Q12 IVPB Last administered on 11/20/18 10:50; Admin Dose 100 MLS/HR; Start 11/15/18 at 14:30 IV Flush (NS 10 ml) 10 ml PRN PRN IV FLUSH LINE; Start 11/15/18 at 15:30 Furosemide (Lasix) 40 mg DAILY@0600 IV Last administered on 11/18/18 05:26; Admin Dose 40 MG; Start 11/17/18 at 06:00 Fluconazole (Diflucan) 100 mg DAILY PO Last administered on 11/20/18at 10:53; Admin Dose 100 MG; Start 11/16/18 at 14:00 Polyethylene Glycol (Miralax) 17 gm DAILY PRN NGT constipation; Start 11/17/18 at 09:00 Senna/Docusate Sodium (Senokot-S) 1 tab BID PRN NGT constipation; Start 11/17/18 at 09:00 Diagnostic Test (Pha) (Accu-Chek) 1 ea 02 XX ; Start 11/19/18 at 02:00 Gabapentin (Neurontin Liquid) 300 mg BID PO Last administered on 11/20/18 14:42; Admin Dose 300 MG; Start 11/18/18 at 21:00 Hydralazine HCl (Apresoline) 100 mg TID PO Last administered on 11/20/18 14:43; Admin Dose 100 MG; Start 11/18/18 at 21:00 Levofloxacin (Levaquin) 250 mg DAILY@06 PO Last administered on 11/19/18 05:31; Admin Dose 250 MG; Start 11/19/18 at 06:00 Sodium Chloride 1,000 ml @ 40 mls/hr Q24H IV Last administered on 11/19/18 21:48; Admin Dose 40 MLS/HR; Start 11/18/18 at 22:00 Diagnostic Test (Pha) (Accu-Chek) 1 ea 02 XX ; Start 11/20/18 at 02:00 Insulin Aspart (Novolog Insulin Pen) NOVOLOG *MODERATE* ALGORI... Q4 SC Last administered on 11/20/18 13:45; Admin Dose 6 UNIT; Start 11/19/18 at 09:00 Methylprednisolone Sodium Succinate (Solu-Medrol) 40 mg DAILY IV Last administered on 11/20/18 10:50; Admin Dose 40 MG; Start 11/20/18 at 09:00 Labetalol HCl (Labetalol) 10 mg Q4H PRN IV sbp >160 Last administered on 11/19/18 19:13; Admin Dose 10 MG; Start 11/19/18 at 10:00 Insulin Glargine (Lantus) 20 units DAILY@0800 SC Last administered on 11/20/18at 11:46; Admin Dose 20 UNITS; Start 11/20/18 at 08:00 Ascorbic Acid (Vitamin C) 500 mg DAILY PO Last administered on 11/20/18at 10:53; Admin Dose 500 MG; Start 11/20/18 at 09:00 Zinc Sulfate (Zinc Sulfate) 220 mg DAILY PO Last administered on 11/20/18at 10:53; Admin Dose 220 MG; Start 11/20/18 at 09:00 Atorvastatin Calcium (Lipitor) 80 mg QHS PO Last administered on 11/19/18at 21:47; Admin Dose 80 MG; Start 11/19/18 at 21:00 Amlodipine Besylate (Norvasc) 5 mg BID PO ; Start 11/20/18 at 21:00 Aspirin (Aspirin) 81 mg DAILY GTB ; Start 11/21/18 at 09:00 Assessment/Plan Hospital Course (Demo Recall) IMPRESSION 1. Acute hypoxemic respiratory failure likely following cardiopulmonary arrest. Chest x-ray appears to be consistent with ARDS. Clinical improvement. Now safely extubated. 2. Recent new onset bradycardia.now resolved. 3. History of peripheral vascular disease. 4. History of poorly controlled diabetes. 5. Anemia, no GIB 6. Leukocytosis likely secondary to steroids. 7. Encephalopathy likely toxic metabolic PLAN: 1. Diuretics as tolerated. 2. Stable off mechanical ventilation. 3. Status post insulin drip 4. DC steroids 5. Renal recommendations appreciated. 6. Deep vein thrombosis and gastrointestinal prophylaxis. 7. Vascular recommendations regarding postop wound care, also appreciate podiatry recommendations. 8. ST eval. Aspiration precautions. EDWIGE CARRANZA MD, [facility] Nov 20, 2018 17:27
[2018-11-20 20:00] VITALS: BP 165/73; PULSE 91; RESP 20
[2018-11-20] MEDS: ATORVASTATIN 80 MG TAB PO SCH (21:48)
[2018-11-21] VITALS (10 sets, daily range): BP systolic 127–175; BP diastolic 61–83; PULSE 82–93; RESP 19–20
[2018-11-21] MEDS: SOD CHLORIDE 0.45% 1,000 ML IV SCH (00:39)
[2018-11-21] MEDS: INSULIN ASPART [NOVOLOG] 3 ML PEN SC SCH ×6 (00:54→22:33)
[2018-11-21] MEDS: ACCU-CHEK XX SCH ×2 (02:00)
[2018-11-21] MEDS: LEVOFLOXACIN 250 MG TAB PO SCH (05:56)
[2018-11-21] MEDS: FUROSEMIDE 40 MG INJ IV SCH (05:56)
[2018-11-21] MEDS: INSULIN GLARGINE [LANTus] (100 UNITS/ML) SYG SC SCH (08:00)
--- NOTE | 2018-11-21 08:32 | PN ---
DATE: 11/21/2018 SUBJECTIVE: The patient is stable. No events overnight. OBJECTIVE: VITAL SIGNS: Blood pressure is 175/83, pulse 93, respirations 20, temperature 98.8. HEENT: Head is normocephalic. NECK: Supple. HEART: Regular rate. LUNGS: Show diminished breath sounds at the base. ABDOMEN: Soft, nontender to palpation without rebound or guarding. EXTREMITIES: Negative for clubbing, cyanosis. Trace edema. DERMATOLOGIC: No rashes. MUSCULOSKELETAL: No joint effusion. NEUROLOGIC: No change in exam. MEDICATIONS: Reviewed. LABORATORY DATA: Reviewed. IMAGING STUDIES: Reviewed. ASSESSMENT AND PLAN: 1. Nonoliguric acute kidney injury. Etiology is secondary to hemodynamics, tubular injury. Renal f unction has stabilized and improved. Continue current treatment plans, supportive care, renally dose all medications. 2. Volume overload secondary to acute kidney injury, acute diastolic heart failure. The patient is near euvolemic on exam. We will change IV Lasix to oral. Continue to monitor closely. 3. Anemia. Monitor hemoglobin and hematocrit levels. 4. Mineral bone disorder, monitor calcium and phosphorus levels. 5. Respiratory failure, status post extubation, currently stable on nasal cannula. Continue to roby tor. 6. Arrhythmia. Continue to monitor. 7. Peripheral vascular disease, status post ileofemoral bypass. 8. Hypertension. Continue current blood pressure regimen. We will adjust medications as needed. W e will start patient on low-dose SHANAE inhibitor. 9. Dyslipidemia. Continue statin therapy. 10. Acute encephalopathy, etiology is toxic metabolic. 11. Status post cardiac arrest. Dictated By: JEAN CLAUDE RUFFIN/BOBO Conf#: [id number] DID#: [id number] CC: TOMASA SCOTT; FRANTZ SCHWAB MD; JAYLEEN BUNN MD;*EndCC*
[2018-11-21] MEDS: FLUCONAZOLE 100 MG TAB PO SCH (08:52)
[2018-11-21] MEDS: CLOPIDOGREL 75 MG TAB GTB SCH (08:52)
[2018-11-21] MEDS: ASCORBIC ACID 500 MG TAB PO SCH (08:53)
[2018-11-21] MEDS: ASPIRIN 81 MG TAB GTB SCH (08:53)
[2018-11-21] MEDS: AMLODIPINE 5 MG TAB PO SCH ×2 (08:54→21:57)
[2018-11-21] MEDS: LISINOPRIL 5 MG TAB PO SCH (08:55)
[2018-11-21] MEDS: FUROSEMIDE 40 MG TAB PO SCH (08:55)
[2018-11-21] MEDS: FAMOTIDINE 20 MG TAB NGT SCH (08:55)
[2018-11-21] MEDS: ZINC SULFATE 220 MG CAP PO SCH (08:56)
[2018-11-21] MEDS: POVIDONE IODINE 10% 28.4 GM OINT TOP SCH ×2 (09:00→21:00)
[2018-11-21] MEDS: GABAPENTIN (50 MG/ML PO SYG) PO SCH ×2 (09:00→21:00)
[2018-11-21] MEDS: MEROPENEM 500MG/50 ML (PMX) 50 ML IVPB SCH ×2 (09:05→22:22)
[2018-11-21] MEDS: HEPARIN 5,000 UNIT/1 ML VIAL SC SCH ×2 (09:19→22:07)
--- NOTE | 2018-11-21 10:19 | CONS ---
Assessment/Plan Assessment/Plan Assessment/Plan (Recall) 72 M c/ multiple comorbidities, who initially presented for management of a limb wound.. Then on 11/11, he had a cardiac arrest that necessitated brief resuscitation and ultimate intubation.. Extubated on 11/18, he is noted to have an appreciable,though mild, encephalopathy...for which neurology is consulted.. He could have a subtle cognitive impairment at baseline, which has seen some decompensation in the context of acute illness requiring psychotropic medication exposure, etc... MRI brain is notable for a tiny left frontal subcortical infarction...and chronic lacunes. Recent TTE was unremarkable P: Add CUS Agree w/ plavix daily for secondary stroke prevention [place] as necessary Limit sedating medications where possible Other management and supportive care per primary Will follow clinically Consultation Date/Type/Reason Admit Date/Time Nov 04, 2018 at 07:34 Type of Consult Neurology Reason for Consultation ams Requesting Provider: KARL WOOD MD Date/Time of Note DATE: 11/21/18 TIME: 10:18 24 HR Interval Summary Free Text/Dictation s/p MRI brain Exam/Review of Systems Exam Vitals Vital Signs Date Temp Pulse Resp B/P (MAP) Pulse Ox O2 O2 Flow FiO2 Time Delivery Rate 11/21/18 Nasal 3.0 09:54 Cannula 11/21/18 98.8 93 20 175/83 97 07:41 (113) 11/18/18 40 09:09 Intake and Output 11/20/18 11/20/18 11/21/18 1515:00 23:00 07:00 IntakeIntake Total 400 ml OutputOutput Total 1500 ml BalanceBalance 400 ml -1500 ml Results Result Diagram: 11/21/18 0636 11/21/18 0636 Results 24hrs Laboratory Tests Test 11/20/18 13:33 11/20/18 18:19 11/20/18 20:49 11/21/18 00:42 Bedside Glucose 221 H 261 H 218 212 Test 11/21/18 05:54 11/21/18 06:36 11/21/18 07:44 11/21/18 09:14 Bedside Glucose 137 172 178 White Blood Count 17.3 H Red Blood Count 4.02 L Hemoglobin 11.9 L Hematocrit 37.4 L Mean Corpuscular Volume 93.0 Mean Corpuscular 29.6 Hemoglobin Mean Corpuscular 31.8 L Hemoglobin Concent Red Cell Distribution 13.6 Width Platelet Count 437 H Mean Platelet Volume 10.9 H Immature Granulocytes % 0.800 H Neutrophils % 79.1 H Lymphocytes % 8.0 L Monocytes % 11.0 Eosinophils % 0.9 Basophils % 0.2 Nucleated Red Blood 0.0 Cells % Immature Granulocytes # 0.130 H Neutrophils # 13.7 H Lymphocytes # 1.4 Monocytes # 1.9 H Eosinophils # 0.2 Basophils # 0.0 Nucleated Red Blood 0.0 Cells # Sodium Level 139 Potassium Level 4.4 Chloride Level 102 Carbon Dioxide Level 26 Anion Gap 11 Blood Urea Nitrogen 38 H Creatinine 1.12 Est Glomerular Filtrat Rate mL/min Glucose Level 160 Calcium Level 9.0 Phosphorus Level 2.9 Magnesium Level 2.2 Medications Medication Current Medications Ergocalciferol (Drisdol) 50,000 unit Sa PO Last administered on 11/09/18at 09:28; Admin Dose 50,000 UNIT; Start 11/09/18 at 09:00 Miscellaneous Medication (Bystolic) 20 mg DAILY PO Last administered on 11/11/18at 09:03; Admin Dose 20 MG; Start 11/04/18 at 09:00; Status Hold Clonidine (Catapres) 0.1 mg Q6H PRN PO SBP>160 Last administered on 11/19/18 03:04; Admin Dose 0.1 MG; Start 11/04/18 at 09:00 IV Flush (NS 3 ml) 3 ml PER PROTOCOL IV ; Start 11/04/18 at 09:00 Ondansetron HCl (Zofran Inj) 4 mg Q6H PRN IV NAUSEA/VOMITING; Start 11/04/18 at 09:00 Acetaminophen (Tylenol Tab) 650 mg Q6H PRN PO .PAIN 1-3 OR TEMP; Start 11/04/18 at 09:00 Miscellaneous Information 1 ea NOTE XX ; Start 11/04/18 at 09:00 Glucose (Glutose) 15 gm Q15M PRN PO DECREASED GLUCOSE; Start 11/04/18 at 09:00 Glucose (Glutose) 22.5 gm Q15M PRN PO DECREASED GLUCOSE; Start 11/04/18 at 09:00 Dextrose (D50w Syringe) 25 ml Q15M PRN IV DECREASED GLUCOSE; Start 11/04/18 at 09:00 Dextrose (D50w Syringe) 50 ml Q15M PRN IV DECREASED GLUCOSE; Start 11/04/18 at 09:00 Glucagon (Glucagen) 1 mg Q15M PRN IM DECREASED GLUCOSE; Start 11/04/18 at 09:00 Glucose (Glutose) 15 gm Q15M PRN BUCCAL DECREASED GLUCOSE; Start 11/04/18 at 09:00 Miscellaneous Information Patients own medicat... BID@10,16 XX Last admini stered on 11/20/18 16:16; Admin Dose 1 EA; Start 11/04/18 at 16:00 Povidone Iodine (Povidone-Iodine) 1 applic BID TOP Last administered on 11/20/18 21:50; Admin Dose 1 APPLIC; Start 11/05/18 at 21:00 Sodium Hypochlorite (Dakins Diluted ()) 1 applic BID TP Last administered on 11/20/18 21:51; Admin Dose 1 APPLIC; Start 11/07/18 at 09:00 Hydralazine HCl (Apresoline) 10 mg Q4H PRN IV sbp >160 Last administered on 11/20/18 14:44; Admin Dose 10 MG; Start 11/08/18 at 09:00 Famotidine (Pepcid) 20 mg DAILY NGT Last administered on 11/21/18 08:55; Admin Dose 20 MG; Start 11/11/18 at 09:30 Atropine Sulfate (Atropine) 0.5 mg PRN PRN IV SYMPTOMATIC BRADYCARDIA; Start 11/11/18 at 23:00 Clopidogrel Bisulfate (plaVIX) 75 mg DAILY GTB Last administered on 11/21/18 08:52; Admin Dose 75 MG; Start 11/13/18 at 09:00 Heparin Sodium (Porcine) (Heparin (5000 Units/1ml)) 5,000 unit BID SC Last administered on 11/21/18 09:19; Admin Dose 5,000 UNIT; Start 11/14/18 at 21:00 Bisacodyl (Dulcolax Supp) 10 mg DAILY PRN [place] CONSTIPATION Last administered on 11/14/18 16:43; Admin Dose 10 MG; Start 11/14/18 at 16:30 Dextrose (D50w Syringe) 25 ml Q15M PRN IV .DECREASED GLUCOSE; Start 11/15/18 at 06:30 Dextrose (D50w Syringe) 50 ml Q15M PRN IV .DECREASED GLUCOSE; Start 11/15/18 at 06:30 Meropenem/Sodium Chloride 50 ml @ 100 mls/hr Q12 IVPB Last administered on 11/21/18at 09:05; Admin Dose 100 MLS/HR; Start 11/15/18 at 14:30 IV Flush (NS 10 ml) 10 ml PRN PRN IV FLUSH LINE; Start 11/15/18 at 15:30 Fluconazole (Diflucan) 100 mg DAILY PO Last administered on 11/21/18at 08:52; Admin Dose 100 MG; Start 11/16/18 at 14:00 Polyethylene Glycol (Miralax) 17 gm DAILY PRN NGT constipation; Start 11/17/18 at 09:00 Senna/Docusate Sodium (Senokot-S) 1 tab BID PRN NGT constipation; Start 11/17/18 at 09:00 Diagnostic Test (Pha) (Accu-Chek) 1 ea 02 XX ; Start 11/19/18 at 02:00 Gabapentin (Neurontin Liquid) 300 mg BID PO Last administered on 11/20/18at 23:32; Admin Dose 300 MG; Start 11/18/18 at 21:00 Hydralazine HCl (Apresoline) 100 mg TID PO Last administered on 11/21/18at 08:52; Admin Dose 100 MG; Start 11/18/18 at 21:00 Levofloxacin (Levaquin) 250 mg DAILY@06 PO Last administered on 11/21/18at 05:56; Admin Dose 250 MG; Start 11/19/18 at 06:00 Diagnostic Test (Pha) (Accu-Chek) 1 ea 02 XX ; Start 11/20/18 at 02:00 Insulin Aspart (Novolog Insulin Pen) NOVOLOG *MODERATE* ALGORI... Q4 SC Last administered on 11/21/18at 09:19; Admin Dose 2 UNIT; Start 11/19/18 at 09:00 Labetalol HCl (Labetalol) 10 mg Q4H PRN IV sbp >160 Last administered on 11/19/18at 19:13; Admin Dose 10 MG; Start 11/19/18 at 10:00 Ascorbic Acid (Vitamin C) 500 mg DAILY PO Last administered on 11/21/18at 08:53; Admin Dose 500 MG; Start 11/20/18 at 09:00 Zinc Sulfate (Zinc Sulfate) 220 mg DAILY PO Last administered on 11/21/18 08:56; Admin Dose 220 MG; Start 11/20/18 at 09:00 Atorvastatin Calcium (Lipitor) 80 mg QHS PO Last administered on 11/20/18 21:48; Admin Dose 80 MG; Start 11/19/18 at 21:00 Amlodipine Besylate (Norvasc) 5 mg BID PO Last administered on 11/21/18 08:54; Admin Dose 5 MG; Start 11/20/18 at 21:00 Aspirin (Aspirin) 81 mg DAILY GTB Last administered on 11/21/18 08:53; Admin Dose 81 MG; Start 11/21/18 at 09:00 Furosemide (Lasix) 40 mg DAILY PO Last administered on 11/21/18 08:55; Admin Dose 40 MG; Start 11/21/18 at 09:00 Lisinopril (Zestril) 5 mg DAILY PO Last administered on 11/21/18 08:55; Admin Dose 5 MG; Start 11/21/18 at 09:00 Insulin Glargine (Lantus) 25 units DAILY@0800 SC ; Start 11/22/18 at 08:00; ALBAN Starr Nov 21, 2018 10:19
[2018-11-21] MEDS ORDERED: SOD CHLORIDE 0.9% 100 ML ONE (11:00)
[2018-11-21] MEDS ORDERED: IOHEXOL 100 ML ONE (11:00)
[2018-11-21] MEDS ORDERED: INSULIN GLARGINE [LANTus] (100 UNITS/ML) SYG SC ONE (11:30)
[2018-11-21] MEDS: DAKINS 0.0125%(1/40) 473 ML SOLUTION TP SCH (13:51)
--- NOTE | 2018-11-21 14:16 | CONS ---
Assessment/Plan Assessment/Plan Hospital Course (Demo Recall) ID PROGRESS NOTE CURRENT ABX: DAY # => Levaquin + Merrem + Diflucan S/P Daptomycin + Ceftriaxone 24H INTERVAL SUMMARY * Lethargic * Extubated 11/18/18 * Recent TTE was unremarkable, Patient is a vasculopath with carotid, coronary, peripheral arterial disease * Per discussion w/Dr Ardon CT shares appearance of septic emboli * He is discussing possible GABBI with Dr. 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 MULTI DRUG RESISTANT ORGANISM Organism 2 STENOTROPHOMONAS MALTOPHILIA QUANTITY 4+ KLEB PNEUM KLEB PNEUM STENMAL M.I.C. RX M.I.C. RX M.I.C. RX --------- --- --------- --- --------- --- AMIKACIN 16 S CEFAZOLIN R CEFEPIME >=64 R CEFOTAXIME R CIPROFLOXACIN >=4 R GENTAMICIN >=16 R LEVOFLOXACIN I 0.5 S MEROPENEM 0.064 S TOBRAMYCIN >=16 R TRIMETHOPRIM/SULFAMETHOXAZOLE >=320 R <=20 S PIPERACILLIN/TAZOBACTAM 32 I DIAGNOSTIC IMAGING * 11/20/18 MRI BRAIN: IMPRESSION: Punctate acute infarct in the left posterior frontal lobe. Hypodense focus in the right thalamus on the comparison CT corresponds to an old lacunar infarct. Additional old infarcts in the bilateral frontal lobes and jennifer. Background parenchymal volume loss with chronic microvascular ischemic disease. Bilateral mastoid effusions. * 11/20/18 CAROTID US: Slightly increased velocity in the left proximal ICA, suspicious for a 50-69% stenosis. - validated velocity measurements with angiographic measurements, velocity criteria are extrapolated from diameter data as defined by the Society of Radiologists in Ultrasound Consensus Conference Radiology 2003; 229;340-346. This study does indirectly reference the measurement of the distal ICA diameter as the denominator for stenosis measurement. Normal antegrade flow in the vertebral arteries bilaterally. Mild to moderate calcific plaque bilaterally, left greater than right. * 11/19/18 CT BRAIN: CT of the brain yesterday revealed new 8 mm infarct in the left thalamus no acute intracranial hemorrhage. Please see full note in the chart * 11/08/18 CXR: Worsening diffuse bilateral reticular nodular infiltrates. PHYSICAL EXAMINATION: GENERAL: VSS, NAD HEENT: AT, NC, NECK: Supple, CHEST: Rise symmetrical HEART: Pulse RRR ABDOMEN: Benign EXTREMITIES: Warm, dry == left foot DSG C/D/I SKIN: No rash, no diaphoresis ID ASSESSMENT 72 yo M admit with: 1. Left foot gangrene 2. Peripheral arterial disease * POD #-> S/P 11/08/18 Left femoral endarterectomy w/Left iliofemoral bypass, and Left femoral->posterior tibial bypass 3. Diffuse pulmonary infiltrates == DDx CHF (STG I diastolic HF) w/possible superimposed HCAP * Per discussion w/Dr Ardon CT shares appearance of septic emboli 4. Hypertension w/HTN heart disease 5. Diabetes w/complications of peripheral neuropathy, vasculopathy 6. History of left foot second toe amputation 7. Acute kidney injury due to "NAVID" contrast induced necropathy post angiogram 8. Acute encephalopathy w/CT & MRI findings of new CVA superimposed on old prior infarcts 9. Bilateral mastoiditis (-)MRSA Nares ABX ALLERGIES: KNDA INVASIVES: PIV CURRENT ABX: DAY # => Levaquin + Merrem + Diflucan s/p Daptomycin + Ceftriaxone ID RECOMMENDATIONS/PLAN: 1. Continue current ABX -- follow APC recommendations 2. Per discussion w/Dr Ardon CT THORAX shares appearance of septic emboli pulmonary * WE discussed possible GABBI with Dr. Cazares -- barriers would be patient now extubated, no bacteremia. * Dr. Cazares will repeat 2D ECHO (TTE) . Consultation Date/Type/Reason Admit Date/Time Nov 04, 2018 at 07:34 Initial Consult Date Requesting Provider: KARL WOOD MD Date/Time of Note DATE: 11/21/18 TIME: 14:03 Exam/Review of Systems Exam Vitals Vital Signs Date Temp Pulse Resp B/P (MAP) Pulse Ox O2 O2 Flow FiO2 Time Delivery Rate 11/21/18 98.3 88 20 148/70 95 Nasal 12:08 (96) Cannula 11/21/18 3.0 09:54 11/18/18 40 09:09 Intake and Output 11/20/18 11/20/18 11/21/18 1515:00 23:00 07:00 IntakeIntake Total 400 ml OutputOutput Total 1500 ml BalanceBalance 400 ml -1500 ml Results Result Diagram: 11/21/18 0636 11/21/18 0636 Results 24hrs Laboratory Tests Test 11/20/18 18:19 11/20/18 20:49 11/21/18 00:42 11/21/18 05:54 Bedside Glucose 261 H 218 212 137 Test 11/21/18 06:36 11/21/18 07:44 11/21/18 09:14 11/21/18 12:29 White Blood Count 17.3 H Red Blood Count 4.02 L Hemoglobin 11.9 L Hematocrit 37.4 L Mean Corpuscular Volume 93.0 Mean Corpuscular 29.6 Hemoglobin Mean Corpuscular 31.8 L Hemoglobin Concent Red Cell Distribution 13.6 Width Platelet Count 437 H Mean Platelet Volume 10.9 H Immature Granulocytes % 0.800 H Neutrophils % 79.1 H Lymphocytes % 8.0 L Monocytes % 11.0 Eosinophils % 0.9 Basophils % 0.2 Nucleated Red Blood 0.0 Cells % Immature Granulocytes # 0.130 H Neutrophils # 13.7 H Lymphocytes # 1.4 Monocytes # 1.9 H Eosinophils # 0.2 Basophils # 0.0 Nucleated Red Blood 0.0 Cells # Sodium Level 139 Potassium Level 4.4 Chloride Level 102 Carbon Dioxide Level 26 Anion Gap 11 Blood Urea Nitrogen 38 H Creatinine 1.12 Est Glomerular Filtrat Rate mL/min Glucose Level 160 Calcium Level 9.0 Phosphorus Level 2.9 Magnesium Level 2.2 Bedside Glucose 172 178 176 Medications Medication Current Medications Ergocalciferol (Drisdol) 50,000 unit Sa PO Last administered on 11/09/18at 09:28; Admin Dose 50,000 UNIT; Start 11/09/18 at 09:00 Miscellaneous Medication (Bystolic) 20 mg DAILY PO Last administered on 11/11/18at 09:03; Admin Dose 20 MG; Start 11/04/18 at 09:00; Status Hold Clonidine (Catapres) 0.1 mg Q6H PRN PO SBP>160 Last administered on 11/19/18 03:04; Admin Dose 0.1 MG; Start 11/04/18 at 09:00 IV Flush (NS 3 ml) 3 ml PER PROTOCOL IV ; Start 11/04/18 at 09:00 Ondansetron HCl (Zofran Inj) 4 mg Q6H PRN IV NAUSEA/VOMITING; Start 11/04/18 at 09:00 Acetaminophen (Tylenol Tab) 650 mg Q6H PRN PO .PAIN 1-3 OR TEMP; Start 11/04/18 at 09:00 Miscellaneous Information 1 ea NOTE XX ; Start 11/04/18 at 09:00 Glucose (Glutose) 15 gm Q15M PRN PO DECREASED GLUCOSE; Start 11/04/18 at 09:00 Glucose (Glutose) 22.5 gm Q15M PRN PO DECREASED GLUCOSE; Start 11/04/18 at 09:00 Dextrose (D50w Syringe) 25 ml Q15M PRN IV DECREASED GLUCOSE; Start 11/04/18 at 09:00 Dextrose (D50w Syringe) 50 ml Q15M PRN IV DECREASED GLUCOSE; Start 11/04/18 at 09:00 Glucagon (Glucagen) 1 mg Q15M PRN IM DECREASED GLUCOSE; Start 11/04/18 at 09:00 Glucose (Glutose) 15 gm Q15M PRN BUCCAL DECREASED GLUCOSE; Start 11/04/18 at 09:00 Miscellaneous Information Patients own medicat... BID@10,16 XX Last administered on 11/20/18at 16:16; Admin Dose 1 EA; Start 11/04/18 at 16:00 Povidone Iodine (Povidone-Iodine) 1 applic BID TOP Last administered on 11/21/18at 09:00; Admin Dose 1 APPLIC; Start 11/05/18 at 21:00 Sodium Hypochlorite (Dakins Diluted (40)) 1 applic BID TP Last administered on 11/21/18at 13:51; Admin Dose 1 APPLIC; Start 11/07/18 at 09:00 Hydralazine HCl (Apresoline) 10 mg Q4H PRN IV sbp >160 Last administered on 11/20/18 14:44; Admin Dose 10 MG; Start 11/08/18 at 09:00 Famotidine (Pepcid) 20 mg DAILY NGT Last administered on 11/21/18 08:55; Admin Dose 20 MG; Start 11/11/18 at 09:30 Atropine Sulfate (Atropine) 0.5 mg PRN PRN IV SYMPTOMATIC BRADYCARDIA; Start 11/11/18 at 23:00 Clopidogrel Bisulfate (plaVIX) 75 mg DAILY GTB Last administered on 11/21/18 08:52; Admin Dose 75 MG; Start 11/13/18 at 09:00 Heparin Sodium (Porcine) (Heparin (5000 Units/1ml)) 5,000 unit BID SC Last administered on 11/21/18 09:19; Admin Dose 5,000 UNIT; Start 11/14/18 at 21:00 Bisacodyl (Dulcolax Supp) 10 mg DAILY PRN [place] CONSTIPATION Last administered on 11/14/18at 16:43; Admin Dose 10 MG; Start 11/14/18 at 16:30 Dextrose (D50w Syringe) 25 ml Q15M PRN IV .DECREASED GLUCOSE; Start 11/15/18 at 06:30 Dextrose (D50w Syringe) 50 ml Q15M PRN IV .DECREASED GLUCOSE; Start 11/15/18 at 06:30 Meropenem/Sodium Chloride 50 ml @ 100 mls/hr Q12 IVPB Last administered on 11/21/18 09:05; Admin Dose 100 MLS/HR; Start 11/15/18 at 14:30 IV Flush (NS 10 ml) 10 ml PRN PRN IV FLUSH LINE; Start 11/15/18 at 15:30 Fluconazole (Diflucan) 100 mg DAILY PO Last administered on 11/21/18 08:52; Admin Dose 100 MG; Start 11/16/18 at 14:00 Polyethylene Glycol (Miralax) 17 gm DAILY PRN NGT constipation; Start 11/17/18 at 09:00 Senna/Docusate Sodium (Senokot-S) 1 tab BID PRN NGT constipation; Start 11/17/18 at 09:00 Diagnostic Test (Pha) (Accu-Chek) 1 ea 02 XX ; Start 11/19/18 at 02:00 Gabapentin (Neurontin Liquid) 300 mg BID PO Last administered on 11/20/18 23:32; Admin Dose 300 MG; Start 11/18/18 at 21:00 Hydralazine HCl (Apresoline) 100 mg TID PO Last administered on 11/21/18 13:52; Admin Dose 100 MG; Start 11/18/18 at 21:00 Levofloxacin (Levaquin) 250 mg DAILY@06 PO Last administered on 11/21/18 05:56; Admin Dose 250 MG; Start 11/19/18 at 06:00 Diagnostic Test (Pha) (Accu-Chek) 1 ea 02 XX ; Start 11/20/18 at 02:00 Insulin Aspart (Novolog Insulin Pen) NOVOLOG *MODERATE* ALGORI... Q4 SC Last administered on 11/21/18 09:19; Admin Dose 2 UNIT; Start 11/19/18 at 09:00 Labetalol HCl (Labetalol) 10 mg Q4H PRN IV sbp >160 Last administered on 11/19/18 19:13; Admin Dose 10 MG; Start 11/19/18 at 10:00 Ascorbic Acid (Vitamin C) 500 mg DAILY PO Last administered on 11/21/18 08:53; Admin Dose 500 MG; Start 11/20/18 at 09:00 Zinc Sulfate (Zinc Sulfate) 220 mg DAILY PO Last administered on 11/21/18 08:56; Admin Dose 220 MG; Start 11/20/18 at 09:00 Atorvastatin Calcium (Lipitor) 80 mg QHS PO Last administered on 11/20/18 21:48; Admin Dose 80 MG; Start 11/19/18 at 21:00 Amlodipine Besylate (Norvasc) 5 mg BID PO Last administered on 11/21/18 08:54; Admin Dose 5 MG; Start 11/20/18 at 21:00 Aspirin (Aspirin) 81 mg DAILY GTB Last administered on 11/21/18 08:53; Admin Dose 81 MG; Start 11/21/18 at 09:00 Furosemide (Lasix) 40 mg DAILY PO Last administered on 11/21/18 08:55; Admin Dose 40 MG; Start 7/4/19 at 09:00 Lisinopril (Zestril) 5 mg DAILY PO Last administered on 11/21/18at 08:55; Admin Dose 5 MG; Start 11/21/18 at 09:00 Insulin Glargine (Lantus) 25 units DAILY@0800 SC ; Start 11/22/18 at 08:00 NESS MUNOZ NP Nov 21, 2018 14:15
--- NOTE | 2018-11-21 14:30 | PN ---
Date/Time of Note Date/Time of Note DATE: 11/21/18 TIME: 14:27 Objective Vitals Vital Signs Date Temp Pulse Resp B/P (MAP) Pulse Ox O2 O2 Flow FiO2 Time Delivery Rate 11/21/18 98.3 88 20 148/70 95 Nasal 12:08 (96) Cannula 11/21/18 3.0 09:54 11/18/18 40 09:09 Intake and Output 11/20/18 11/20/18 11/21/18 1515:00 23:00 07:00 IntakeIntake Total 400 ml OutputOutput Total 1500 ml BalanceBalance 400 ml -1500 ml Results Result Diagram: 11/21/18 0636 11/21/18 0636 Medications Medications Current Medications Ergocalciferol (Drisdol) 50,000 unit Sa PO Last administered on 11/09/18at 09:28; Admin Dose 50,000 UNIT; Start 11/09/18 at 09:00 Miscellaneous Medication (Bystolic) 20 mg DAILY PO Last administered on 11/11/18at 09:03; Admin Dose 20 MG; Start 11/04/18 at 09:00; Status Hold Clonidine (Catapres) 0.1 mg Q6H PRN PO SBP>160 Last administered on 11/19/18at 03:04; Admin Dose 0.1 MG; Start 11/04/18 at 09:00 IV Flush (NS 3 ml) 3 ml PER PROTOCOL IV ; Start 11/04/18 at 09:00 Ondansetron HCl (Zofran Inj) 4 mg Q6H PRN IV NAUSEA/VOMITING; Start 11/04/18 at 09:00 Acetaminophen (Tylenol Tab) 650 mg Q6H PRN PO .PAIN 1-3 OR TEMP; Start 11/04/18 at 09:00 Miscellaneous Information 1 ea NOTE XX ; Start 11/04/18 at 09:00 Glucose (Glutose) 15 gm Q15M PRN PO DECREASED GLUCOSE; Start 11/04/18 at 09:00 Glucose (Glutose) 22.5 gm Q15M PRN PO DECREASED GLUCOSE; Start 11/04/18 at 09:00 Dextrose (D50w Syringe) 25 ml Q15M PRN IV DECREASED GLUCOSE; Start 11/04/18 at 09:00 Dextrose (D50w Syringe) 50 ml Q15M PRN IV DECREASED GLUCOSE; Start 11/04/18 at 09:00 Glucagon (Glucagen) 1 mg Q15M PRN IM DECREASED GLUCOSE; Start 11/04/18 at 09:00 Glucose (Glutose) 15 gm Q15M PRN BUCCAL DECREASED GLUCOSE; Start 11/04/18 at 09:00 Miscellaneous Information Patients own medicat... BID@10,16 XX Last administered on 11/20/18 16:16; Admin Dose 1 EA; Start 11/04/18 at 16:00 Povidone Iodine (Povidone-Iodine) 1 applic BID TOP Last administered on 11/21/18 09:00; Admin Dose 1 APPLIC; Start 11/05/18 at 21:00 Sodium Hypochlorite (Dakins Diluted ()) 1 applic BID TP Last administered on 11/21/18 13:51; Admin Dose 1 APPLIC; Start 11/07/18 at 09:00 Hydralazine HCl (Apresoline) 10 mg Q4H PRN IV sbp >160 Last administered on 11/20/18 14:44; Admin Dose 10 MG; Start 11/08/18 at 09:00 Famotidine (Pepcid) 20 mg DAILY NGT Last administered on 11/21/18 08:55; Admin Dose 20 MG; Start 11/11/18 at 09:30 Atropine Sulfate (Atropine) 0.5 mg PRN PRN IV SYMPTOMATIC BRADYCARDIA; Start 11/11/18 at 23:00 Clopidogrel Bisulfate (plaVIX) 75 mg DAILY GTB Last administered on 11/21/18 08:52; Admin Dose 75 MG; Start 11/13/18 at 09:00 Heparin Sodium (Porcine) (Heparin (5000 Units/1ml)) 5,000 unit BID SC Last administered on 11/21/18 09:19; Admin Dose 5,000 UNIT; Start 11/14/18 at 21:00 Bisacodyl (Dulcolax Supp) 10 mg DAILY PRN [place] CONSTIPATION Last administered on 11/14/18 16:43; Admin Dose 10 MG; Start 11/14/18 at 16:30 Dextrose (D50w Syringe) 25 ml Q15M PRN IV .DECREASED GLUCOSE; Start 11/15/18 at 06:30 Dextrose (D50w Syringe) 50 ml Q15M PRN IV .DECREASED GLUCOSE; Start 11/15/18 at 06:30 Meropenem/Sodium Chloride 50 ml @ 100 mls/hr Q12 IVPB Last administered on 11/21/18at 09:05; Admin Dose 100 MLS/HR; Start 11/15/18 at 14:30 IV Flush (NS 10 ml) 10 ml PRN PRN IV FLUSH LINE; Start 11/15/18 at 15:30 Fluconazole (Diflucan) 100 mg DAILY PO Last administered on 11/21/18at 08:52; Admin Dose 100 MG; Start 11/16/18 at 14:00 Polyethylene Glycol (Miralax) 17 gm DAILY PRN NGT constipation; Start 11/17/18 at 09:00 Senna/Docusate Sodium (Senokot-S) 1 tab BID PRN NGT constipation; Start 11/17/18 at 09:00 Diagnostic Test (Pha) (Accu-Chek) 1 ea 02 XX ; Start 11/19/18 at 02:00 Gabapentin (Neurontin Liquid) 300 mg BID PO Last administered on 11/20/18at 23:32; Admin Dose 300 MG; Start 11/18/18 at 21:00 Hydralazine HCl (Apresoline) 100 mg TID PO Last administered on 11/21/18at 13:52; Admin Dose 100 MG; Start 11/18/18 at 21:00 Levofloxacin (Levaquin) 250 mg DAILY@06 PO Last administered on 11/21/18at 05:56; Admin Dose 250 MG; Start 11/19/18 at 06:00 Diagnostic Test (Pha) (Accu-Chek) 1 ea 02 XX ; Start 11/20/18 at 02:00 Insulin Aspart (Novolog Insulin Pen) NOVOLOG *MODERATE* ALGORI... Q4 SC Last administered on 11/21/18at 09:19; Admin Dose 2 UNIT; Start 11/19/18 at 09:00 Labetalol HCl (Labetalol) 10 mg Q4H PRN IV sbp >160 Last administered on 11/19/18at 19:13; Admin Dose 10 MG; Start 11/19/18 at 10:00 Ascorbic Acid (Vitamin C) 500 mg DAILY PO Last administered on 11/21/18at 08:53; Admin Dose 500 MG; Start 11/20/18 at 09:00 Zinc Sulfate (Zinc Sulfate) 220 mg DAILY PO Last administered on 11/21/18 08:56; Admin Dose 220 MG; Start 11/20/18 at 09:00 Atorvastatin Calcium (Lipitor) 80 mg QHS PO Last administered on 11/20/18at 21:48; Admin Dose 80 MG; Start 11/19/18 at 21:00 Amlodipine Besylate (Norvasc) 5 mg BID PO Last administered on 11/21/18 08:54; Admin Dose 5 MG; Start 11/20/18 at 21:00 Aspirin (Aspirin) 81 mg DAILY GTB Last administered on 11/21/18 08:53; Admin Dose 81 MG; Start 11/21/18 at 09:00 Furosemide (Lasix) 40 mg DAILY PO Last administered on 11/21/18 08:55; Admin Dose 40 MG; Start 11/21/18 at 09:00 Lisinopril (Zestril) 5 mg DAILY PO Last administered on 11/21/18 08:55; Admin Dose 5 MG; Start 11/21/18 at 09:00 Insulin Glargine (Lantus) 25 units DAILY@0800 SC ; Start 11/22/18 at 08:00 VTE Prophylaxis Risk score (from [facility])>0 risk: 8 SCD applied (from [facility]): No SCD contraindication: other Lines/Catheters IV Catheter Type: Vora in Place: No Assessment/Plan Hospital Course Subjective Patient still having episodes of confusion and hallucinations about otherwise can respond normally Objective Physical exam General: Patient is laying in bed responding to questions however has episodes of confusion Mentation: Patient is alert and oriented x1 Head: Normocephalic atraumatic Eyes: EOMI, pupils reactive to light Neck: Supple, nontender, midline Respiratory: Coarse to auscultation bilaterally Cardiovascular: regular rate, no obvious murmurs Gastrointestinal: non-tender to palpation, bowel sounds heard. Neurological: Moves all extremities spontaneously Skin: No new skin lesions, surgical site bandaged, CDI assessment/Plan Acute encephalopathy -May be secondary to ICU delirium versus anoxic brain injury secondary to cardiac arrest versus residual effect of CVA -Neurology consulted -CT noted, has age-indeterminate infarct however it should be noted that patient's son stated that patient does have a history of infarct in the past and this may be that issue -MRI noted for small CVA Left frontal CVA -Discussed with neurology, small CVA -Aspirin and Plavix already on board due to vascular disease -Statin Questionable left-sided internal carotid artery stenosis -Per vascular recommendations, ordered a CT angiogram of the neck to further elucidate accurate stenosis and if actually 70% may consider carotid endarterectomy but will pending results. Acute hypoxic respiratory failure-resolving -Extubated, doing well - CT chest without contrast results noted - Pulmonology on board for vent management Cardiac arrest s/p ROSC - Cardiology on board and appreciate recommendations - ECHO with preserved EF left fifth toe gangrenous ulcer - ID on board and appreciate consultation. Will continue current antibiotics - Continue local wound care - Podiatry on board and will plan for further amputation in the near future once stable Severe peripheral vascular disease - s/p left femoral endarterectomy, iliofemoral bypass and femoral to posterior tibial bypass done on November 08, 2018 - Vascular surgery consultation appreciated -Continue aspirin and Plavix Diabetes Mellitus - A1c noted - insulin as needed Acute kidney injury- improving - nephrology consultation appreciated and most likely due to contrast induced nephropathy as well as cardiorenal. managing diuretics - continue monitoring and avoid nephrotoxic agents Essential HTN -Continue home medications at this time - BP stable Peripheral neuropathy - cont. gabapentin HLD - On statin Chronic anemia - Stable H&H. Monitor - no need for transfusions at this time Urinary retention - Urology on board and appreciate recommendations. Disposition -Patient still having episodes of hallucination, will work-up patient's current stroke and possible carotid artery stenosis, will discuss with podiatry soon regarding possible localized nerve block for amputation of toe FRANTZ SCHWAB Nov 21, 2018 14:30
[2018-11-21] MEDS: LORAZEPAM 1 MG TAB PO PRN (15:12)
--- NOTE | 2018-11-21 15:18 | CONS ---
Consult Date/Type/Reason Admit Date/Time Nov 04, 2018 at 07:34 Initial Consult Date 11/11/18 Type of Consultation: Pulm Requesting Provider: KARL WOOD MD Date/Time of Note DATE: 11/21/18 TIME: 15:16 Subjective Doing reasonably well. Now on RA. Objective Vitals Vital Signs Date Temp Pulse Resp B/P (MAP) Pulse Ox O2 O2 Flow FiO2 Time Delivery Rate 11/21/18 98.1 89 20 128/68 94 Room Air 15:10 (88) 11/21/18 3.0 09:54 11/18/18 40 09:09 Intake and Output 11/20/18 11/20/18 11/21/18 1515:00 23:00 07:00 IntakeIntake Total 400 ml OutputOutput Total 1500 ml BalanceBalance 400 ml -1500 ml Exam NECK: Supple. No JVD or lymphadenopathy. CARDIAC: S1, S2, no added sounds or murmurs. CHEST: Diminished air entry bilaterally. ABDOMEN: Soft, nontender. No guarding or rebound. EXTREMITIES: No cyanosis, clubbing, 1+ edema. NEUROLOGIC: Generalized weakness. Results/Medications Result Diagram: 11/21/18 0636 11/21/18 0636 Results 24 hrs Laboratory Tests Test 11/20/18 18:19 11/20/18 20:49 11/21/18 00:42 11/21/18 05:54 Bedside Glucose 261 H 218 212 137 Test 11/21/18 06:36 11/21/18 07:44 11/21/18 09:14 11/21/18 12:29 White Blood Count 17.3 H Red Blood Count 4.02 L Hemoglobin 11.9 L Hematocrit 37.4 L Mean Corpuscular Volume 93.0 Mean Corpuscular 29.6 Hemoglobin Mean Corpuscular 31.8 L Hemoglobin Concent Red Cell Distribution 13.6 Width Platelet Count 437 H Mean Platelet Volume 10.9 H Immature Granulocytes % 0.800 H Neutrophils % 79.1 H Lymphocytes % 8.0 L Monocytes % 11.0 Eosinophils % 0.9 Basophils % 0.2 Nucleated Red Blood 0.0 Cells % Immature Granulocytes # 0.130 H Neutrophils # 13.7 H Lymphocytes # 1.4 Monocytes # 1.9 H Eosinophils # 0.2 Basophils # 0.0 Nucleated Red Blood 0.0 Cells # Sodium Level 139 Potassium Level 4.4 Chloride Level 102 Carbon Dioxide Level 26 Anion Gap 11 Blood Urea Nitrogen 38 H Creatinine 1.12 Est Glomerular Filtrat Rate mL/min Glucose Level 160 Calcium Level 9.0 Phosphorus Level 2.9 Magnesium Level 2.2 Bedside Glucose 172 178 176 Home Meds Active Scripts Silver Sulfadiazine* (Silvadene*) 1% - 20 Gm Cream.gm., 1 APPLIC TOP DAILY, #1 TUB Prov:JESSEI WONG MD 06/12/18 Amoxicillin-Clavulanate K* (Augmentin*) 875 Mg Tab, 875 MG PO BID, #28 TAB Prov:AMANDA GOMEZ MD 06/08/14 Reported Medications Insulin Aspart (Novolog Mix (70/30)) 100 Units/Ml Soln, 28 SC with diinner, VIAL 11/04/18 Insulin Aspart (Novolog Mix (70/30)) 100 Units/Ml Soln, 38 SC WITH BREAKFAST, VIAL 11/04/18 Benazepril Hcl* (Benazepril Hcl*) 40 Mg Tablet, 40 MG PO DAILY, #30 TAB 11/04/18 Ergocalciferol (Vitamin D2) (VITAMIN D2) 50,000 Unit Capsule, 61667 UNIT PO weekly for saturdays, CAP 11/04/18 Omeprazole* (Omeprazole*) 20 Mg Capsule.dr, 20 MG PO DAILY, #30 CAP 11/04/18 Aspirin* (Aspirin* EC) 81 Mg Tablet.dr, 81 MG PO DAILY, TAB 11/04/18 Gabapentin* (Gabapentin*) 300 Mg Capsule, 300 MG PO BID, #60 CAP 11/04/18 Nebivolol Hcl* (Bystolic*) 20 Mg Tablet, 20 MG PO DAILY, #30 TAB 11/04/18 Atorvastatin Calcium* (Atorvastatin Calcium*) 20 Mg Tablet, 20 MG PO QHS, #30 TAB 11/04/18 Sulfasalazine (Azulfidine) 500 Mg Tab, 1000 MG PO TID, TAB 06/02/14 Medications Current Medications Ergocalciferol (Drisdol) 50,000 unit Sa PO Last administered on 11/09/18at 09:28; Admin Dose 50,000 UNIT; Start 11/09/18 at 09:00 Miscellaneous Medication (Bystolic) 20 mg DAILY PO Last administered on 11/11/18at 09:03; Admin Dose 20 MG; Start 11/04/18 at 09:00; Status Hold Clonidine (Catapres) 0.1 mg Q6H PRN PO SBP>160 Last administered on 11/19/18 03:04; Admin Dose 0.1 MG; Start 11/04/18 at 09:00 IV Flush (NS 3 ml) 3 ml PER PROTOCOL IV ; Start 11/04/18 at 09:00 Ondansetron HCl (Zofran Inj) 4 mg Q6H PRN IV NAUSEA/VOMITING; Start 11/04/18 at 09:00 Acetaminophen (Tylenol Tab) 650 mg Q6H PRN PO .PAIN 1-3 OR TEMP; Start 11/04/18 at 09:00 Miscellaneous Information 1 ea NOTE XX ; Start 11/04/18 at 09:00 Glucose (Glutose) 15 gm Q15M PRN PO DECREASED GLUCOSE; Start 11/04/18 at 09:00 Glucose (Glutose) 22.5 gm Q15M PRN PO DECREASED GLUCOSE; Start 11/04/18 at 09:00 Dextrose (D50w Syringe) 25 ml Q15M PRN IV DECREASED GLUCOSE; Start 11/04/18 at 09:00 Dextrose (D50w Syringe) 50 ml Q15M PRN IV DECREASED GLUCOSE; Start 11/04/18 at 09:00 Glucagon (Glucagen) 1 mg Q15M PRN IM DECREASED GLUCOSE; Start 11/04/18 at 09:00 Glucose (Glutose) 15 gm Q15M PRN BUCCAL DECREASED GLUCOSE; Start 11/04/18 at 09:00 Miscellaneous Information Patients own medicat... BID@,16 XX Last administered on 11/20/18at 16:16; Admin Dose 1 EA; Start 11/04/18 at 16:00 Povidone Iodine (Povidone-Iodine) 1 applic BID TOP Last administered on 11/21/18 09:00; Admin Dose 1 APPLIC; Start 11/05/18 at 21:00 Sodium Hypochlorite (Dakins Diluted (40)) 1 applic BID TP Last administered on 11/21/18 13:51; Admin Dose 1 APPLIC; Start 11/07/18 at 09:00 Hydralazine HCl (Apresoline) 10 mg Q4H PRN IV sbp >160 Last administered on 11/20/18 14:44; Admin Dose 10 MG; Start 11/08/18 at 09:00 Famotidine (Pepcid) 20 mg DAILY NGT Last administered on 11/21/18 08:55; Admin Dose 20 MG; Start 11/11/18 at 09:30 Atropine Sulfate (Atropine) 0.5 mg PRN PRN IV SYMPTOMATIC BRADYCARDIA; Start 11/11/18 at 23:00 Clopidogrel Bisulfate (plaVIX) 75 mg DAILY GTB Last administered on 11/21/18 08:52; Admin Dose 75 MG; Start 11/13/18 at 09:00 Heparin Sodium (Porcine) (Heparin (5000 Units/1ml)) 5,000 unit BID SC Last administered on 11/21/18 09:19; Admin Dose 5,000 UNIT; Start 11/14/18 at 21:00 Bisacodyl (Dulcolax Supp) [address] CONSTIPATION Last administered on 11/14/18at 16:43; Admin Dose 10 MG; Start 11/14/18 at 16:30 Dextrose (D50w Syringe) 25 ml Q15M PRN IV .DECREASED GLUCOSE; Start 11/15/18 at 06:30 Dextrose (D50w Syringe) 50 ml Q15M PRN IV .DECREASED GLUCOSE; Start 11/15/18 at 06:30 Meropenem/Sodium Chloride 50 ml @ 100 mls/hr Q12 IVPB Last administered on 11/21/18 09:05; Admin Dose 100 MLS/HR; Start 11/15/18 at 14:30 IV Flush (NS 10 ml) 10 ml PRN PRN IV FLUSH LINE; Start 11/15/18 at 15:30 Fluconazole (Diflucan) 100 mg DAILY PO Last administered on 11/21/18 08:52; Admin Dose 100 MG; Start 11/16/18 at 14:00 Polyethylene Glycol (Miralax) 17 gm DAILY PRN NGT constipation; Start 11/17/18 at 09:00 Senna/Docusate Sodium (Senokot-S) 1 tab BID PRN NGT constipation; Start 11/17/18 at 09:00 Diagnostic Test (Pha) (Accu-Chek) 1 ea 02 XX ; Start 11/19/18 at 02:00 Gabapentin (Neurontin Liquid) 300 mg BID PO Last administered on 11/20/18 23:32; Admin Dose 300 MG; Start 11/18/18 at 21:00 Hydralazine HCl (Apresoline) 100 mg TID PO Last administered on 11/21/18 13:52; Admin Dose 100 MG; Start 11/18/18 at 21:00 Levofloxacin (Levaquin) 250 mg DAILY@06 PO Last administered on 11/21/18 05:56; Admin Dose 250 MG; Start 11/19/18 at 06:00 Diagnostic Test (Pha) (Accu-Chek) 1 ea 02 XX ; Start 11/20/18 at 02:00 Insulin Aspart (Novolog Insulin Pen) NOVOLOG *MODERATE* ALGORI... Q4 SC Last administered on 11/21/18 09:19; Admin Dose 2 UNIT; Start 11/19/18 at 09:00 Labetalol HCl (Labetalol) 10 mg Q4H PRN IV sbp >160 Last administered on 11/19/18 19:13; Admin Dose 10 MG; Start 11/19/18 at 10:00 Ascorbic Acid (Vitamin C) 500 mg DAILY PO Last administered on 11/21/18 08:53; Admin Dose 500 MG; Start 11/20/18 at 09:00 Zinc Sulfate (Zinc Sulfate) 220 mg DAILY PO Last administered on 11/21/18 08:56; Admin Dose 220 MG; Start 11/20/18 at 09:00 Atorvastatin Calcium (Lipitor) 80 mg QHS PO Last administered on 11/20/18 21:48; Admin Dose 80 MG; Start 11/19/18 at 21:00 Amlodipine Besylate (Norvasc) 5 mg BID PO Last administered on 11/21/18 08:54; Admin Dose 5 MG; Start 11/20/18 at 21:00 Aspirin (Aspirin) 81 mg DAILY GTB Last administered on 11/21/18 08:53; Admin Dose 81 MG; Start 11/21/18 at 09:00 Furosemide (Lasix) 40 mg DAILY PO Last administered on 11/21/18 08:55; Admin Dose 40 MG; Start 11/21/18 at 09:00 Lisinopril (Zestril) 5 mg DAILY PO Last administered on 11/21/18 08:55; Admin Dose 5 MG; Start 11/21/18 at 09:00 Insulin Glargine (Lantus) 25 units DAILY@0800 SC ; Start 11/22/18 at 08:00 Lorazepam (Ativan) 1 mg Q8 PRN PO anxiety; Start 11/21/18 at 15:00 Assessment/Plan Assessment/Plan (Daily) IMP: 1. Acute hypoxemic respiratory failure likely following cardiopulmonary arrest. CT chest from 11/13/18 concerning for septic pulm emboli 2. Recent new onset bradycardia.now resolved. 3. History of peripheral vascular disease. 4. History of poorly controlled diabetes. 5. Anemia, no GIB 6. Leukocytosis likely secondary to steroids. 7. Encephalopathy likely toxic metabolic RECS: 1. Abx per ID 2. May benefit from repeat chest CT 3. GABBI may be reasonable (will discuss with ID) COLT WOO MD Nov 21, 2018 15:18
--- NOTE | 2018-11-21 15:39 | CONS ---
Consult Date/Type/Reason Admit Date/Time Nov 04, 2018 at 07:34 Initial Consult Date 11/11/18 Type of Consultation: Pulm Requesting Provider: KARL WOOD MD Date/Time of Note DATE: 11/21/18 TIME: 15:37 Subjective NO acute events - pt comfortable - BP in good range, but pt with increased AMS and MRI brain changes - concern for emboli - per ID request, will repeat ECHO now. ROS: No fever, no chills, no nausea, no vomiting, no diarrhea/constipation - change in mental status now Objective Vitals Vital Signs Date Temp Pulse Resp B/P (MAP) Pulse Ox O2 O2 Flow FiO2 Time Delivery Rate 11/21/18 98.1 89 20 128/68 94 Room Air 15:10 (88) 11/21/18 3.0 09:54 11/18/18 40 09:09 Intake and Output 11/20/18 11/20/18 11/21/18 1515:00 23:00 07:00 IntakeIntake Total 400 ml OutputOutput Total 1500 ml BalanceBalance 400 ml -1500 ml Exam General: WN/WD/NAD, AOx 1 more confused HEENT: Unicetric/atraumatic/EOMI (follows commands) NECK: JVD elevated, no thyromegaly Lymph: no lymphadenopathy HEART: regular with no S3, II/ systolic murmur at apex LUNGS: Coarse sounds ABD: soft, NT, ND, +BS : Intact Neuro: non focal SKIN: chronic changes EXT: trace edema, post up changes Results/Medications Result Diagram: 11/21/18 0636 11/21/18 0636 Results 24 hrs Laboratory Tests Test 11/20/18 18:19 11/20/18 20:49 11/21/18 00:42 11/21/18 05:54 Bedside Glucose 261 H 218 212 137 Test 11/21/18 06:36 11/21/18 07:44 11/21/18 09:14 11/21/18 12:29 White Blood Count 17.3 H Red Blood Count 4.02 L Hemoglobin 11.9 L Hematocrit 37.4 L Mean Corpuscular Volume 93.0 Mean Corpuscular 29.6 Hemoglobin Mean Corpuscular 31.8 L Hemoglobin Concent Red Cell Distribution 13.6 Width Platelet Count 437 H Mean Platelet Volume 10.9 H Immature Granulocytes % 0.800 H Neutrophils % 79.1 H Lymphocytes % 8.0 L Monocytes % 11.0 Eosinophils % 0.9 Basophils % 0.2 Nucleated Red Blood 0.0 Cells % Immature Granulocytes # 0.130 H Neutrophils # 13.7 H Lymphocytes # 1.4 Monocytes # 1.9 H Eosinophils # 0.2 Basophils # 0.0 Nucleated Red Blood 0.0 Cells # Sodium Level 139 Potassium Level 4.4 Chloride Level 102 Carbon Dioxide Level 26 Anion Gap 11 Blood Urea Nitrogen 38 H Creatinine 1.12 Est Glomerular Filtrat Rate mL/min Glucose Level 160 Calcium Level 9.0 Phosphorus Level 2.9 Magnesium Level 2.2 Bedside Glucose 172 178 176 Home Meds Active Scripts Silver Sulfadiazine* (Silvadene*) 1% - 20 Gm Cream.gm., 1 APPLIC TOP DAILY, #1 TUB Prov:JESSIE WONG MD 06/12/18 Amoxicillin-Clavulanate K* (Augmentin*) 875 Mg Tab, 875 MG PO BID, #28 TAB Prov:AMANDA GOMEZ MD 06/08/14 Reported Medications Insulin Aspart (Novolog Mix (70/30)) 100 Units/Ml Soln, 28 SC with diinner, VIAL 11/04/18 Insulin Aspart (Novolog Mix (70/30)) 100 Units/Ml Soln, 38 SC WITH BREAKFAST, VIAL 11/04/18 Benazepril Hcl* (Benazepril Hcl*) 40 Mg Tablet, 40 MG PO DAILY, #30 TAB 11/04/18 Ergocalciferol (Vitamin D2) (VITAMIN D2) 50,000 Unit Capsule, 03285 UNIT PO we ekly for saturdays, CAP 11/04/18 Omeprazole* (Omeprazole*) 20 Mg Capsule.dr, 20 MG PO DAILY, #30 CAP 11/04/18 Aspirin* (Aspirin* EC) 81 Mg Tablet.dr, 81 MG PO DAILY, TAB 11/04/18 Gabapentin* (Gabapentin*) 300 Mg Capsule, 300 MG PO BID, #60 CAP 11/04/18 Nebivolol Hcl* (Bystolic*) 20 Mg Tablet, 20 MG PO DAILY, #30 TAB 11/04/18 Atorvastatin Calcium* (Atorvastatin Calcium*) 20 Mg Tablet, 20 MG PO QHS, #30 TAB 11/04/18 Sulfasalazine (Azulfidine) 500 Mg Tab, 1000 MG PO TID, TAB 06/02/14 Medications Current Medications Ergocalciferol (Drisdol) 50,000 unit Sa PO Last administered on 11/09/18at 09:28; Admin Dose 50,000 UNIT; Start 11/09/18 at 09:00 Miscellaneous Medication (Bystolic) 20 mg DAILY PO Last administered on 11/11/18 09:03; Admin Dose 20 MG; Start 11/04/18 at 09:00; Status Hold Clonidine (Catapres) 0.1 mg Q6H PRN PO SBP>160 Last administered on 11/19/18 03:04; Admin Dose 0.1 MG; Start 11/04/18 at 09:00 IV Flush (NS 3 ml) 3 ml PER PROTOCOL IV ; Start 11/04/18 at 09:00 Ondansetron HCl (Zofran Inj) 4 mg Q6H PRN IV NAUSEA/VOMITING; Start 11/04/18 at 09:00 Acetaminophen (Tylenol Tab) 650 mg Q6H PRN PO .PAIN 1-3 OR TEMP; Start 11/04/18 at 09:00 Miscellaneous Information 1 ea NOTE XX ; Start 11/04/18 at 09:00 Glucose (Glutose) 15 gm Q15M PRN PO DECREASED GLUCOSE; Start 11/04/18 at 09:00 Glucose (Glutose) 22.5 gm Q15M PRN PO DECREASED GLUCOSE; Start 11/04/18 at 09:00 Dextrose (D50w Syringe) 25 ml Q15M PRN IV DECREASED GLUCOSE; Start 11/04/18 at 09:00 Dextrose (D50w Syringe) 50 ml Q15M PRN IV DECREASED GLUCOSE; Start 11/04/18 at 09:00 Glucagon (Glucagen) 1 mg Q15M PRN IM DECREASED GLUCOSE; Start 11/04/18 at 09:00 Glucose (Glutose) 15 gm Q15M PRN BUCCAL DECREASED GLUCOSE; Start 11/04/18 at 09:00 Miscellaneous Information Patients own medicat... BID@10,16 XX Last administered on 11/20/18 16:16; Admin Dose 1 EA; Start 11/04/18 at 16:00 Povidone Iodine (Povidone-Iodine) 1 applic BID TOP Last administered on 11/21/18 09:00; Admin Dose 1 APPLIC; Start 11/05/18 at 21:00 Sodium Hypochlorite (Dakins Diluted ()) 1 applic BID TP Last administered on 11/21/18 13:51; Admin Dose 1 APPLIC; Start 11/07/18 at 09:00 Hydralazine HCl (Apresoline) 10 mg Q4H PRN IV sbp >160 Last administered on 11/20/18 14:44; Admin Dose 10 MG; Start 11/08/18 at 09:00 Famotidine (Pepcid) 20 mg DAILY NGT Last administered on 11/21/18 08:55; Admin Dose 20 MG; Start 11/11/18 at 09:30 Atropine Sulfate (Atropine) 0.5 mg PRN PRN IV SYMPTOMATIC BRADYCARDIA; Start 11/11/18 at 23:00 Clopidogrel Bisulfate (plaVIX) 75 mg DAILY GTB Last administered on 11/21/18 08:52; Admin Dose 75 MG; Start 11/13/18 at 09:00 Heparin Sodium (Porcine) (Heparin (5000 Units/1ml)) 5,000 unit BID SC Last administered on 11/21/18 09:19; Admin Dose 5,000 UNIT; Start 11/14/18 at 21:00 Bisacodyl (Dulcolax Supp) 10 mg DAILY PRN [place] CONSTIPATION Last administered on 11/14/18 16:43; Admin Dose 10 MG; Start 11/14/18 at 16:30 Dextrose (D50w Syringe) 25 ml Q15M PRN IV .DECREASED GLUCOSE; Start 11/15/18 at 06:30 Dextrose (D50w Syringe) 50 ml Q15M PRN IV .DECREASED GLUCOSE; Start 11/15/18 at 06:30 Meropenem/Sodium Chloride 50 ml @ 100 mls/hr Q12 IVPB Last administered on 11/21/18 09:05; Admin Dose 100 MLS/HR; Start 11/15/18 at 14:30 IV Flush (NS 10 ml) 10 ml PRN PRN IV FLUSH LINE; Start 11/15/18 at 15:30 Fluconazole (Diflucan) 100 mg DAILY PO Last administered on 11/21/18 08:52; Admin Dose 100 MG; Start 11/16/18 at 14:00 Polyethylene Glycol (Miralax) 17 gm DAILY PRN NGT constipation; Start 11/17/18 at 09:00 Senna/Docusate Sodium (Senokot-S) 1 tab BID PRN NGT constipation; Start 11/17/18 at 09:00 Diagnostic Test (Pha) (Accu-Chek) 1 ea 02 XX ; Start 11/19/18 at 02:00 Gabapentin (Neurontin Liquid) 300 mg BID PO Last administered on 11/20/18 23:32; Admin Dose 300 MG; Start 11/18/18 at 21:00 Hydralazine HCl (Apresoline) 100 mg TID PO Last administered on 11/21/18 13:52; Admin Dose 100 MG; Start 11/18/18 at 21:00 Levofloxacin (Levaquin) 250 mg DAILY@06 PO Last administered on 11/21/18 05:56; Admin Dose 250 MG; Start 11/19/18 at 06:00 Diagnostic Test (Pha) (Accu-Chek) 1 ea 02 XX ; Start 11/20/18 at 02:00 Insulin Aspart (Novolog Insulin Pen) NOVOLOG *MODERATE* ALGORI... Q4 SC Last administered on 11/21/18 09:19; Admin Dose 2 UNIT; Start 11/19/18 at 09:00 Labetalol HCl (Labetalol) 10 mg Q4H PRN IV sbp >160 Last administered on 11/19/18 19:13; Admin Dose 10 MG; Start 11/19/18 at 10:00 Ascorbic Acid (Vitamin C) 500 mg DAILY PO Last administered on 11/21/18 08:53; Admin Dose 500 MG; Start 11/20/18 at 09:00 Zinc Sulfate (Zinc Sulfate) 220 mg DAILY PO Last administered on 11/21/18 08:56; Admin Dose 220 MG; Start 11/20/18 at 09:00 Atorvastatin Calcium (Lipitor) 80 mg QHS PO Last administered on 11/20/18 21:48; Admin Dose 80 MG; Start 11/19/18 at 21:00 Amlodipine Besylate (Norvasc) 5 mg BID PO Last administered on 11/21/18 08:54; Admin Dose 5 MG; Start 11/20/18 at 21:00 Aspirin (Aspirin) 81 mg DAILY GTB Last administered on 11/21/18 08:53; Admin Dose 81 MG; Start 11/21/18 at 09:00 Furosemide (Lasix) 40 mg DAILY PO Last administered on 11/21/18at 08:55; Admin Dose 40 MG; Start 11/21/18 at 09:00 Lisinopril (Zestril) 5 mg DAILY PO Last administered on 11/21/18at 08:55; Admin Dose 5 MG; Start 11/21/18 at 09:00 Insulin Glargine (Lantus) 25 units DAILY@0800 SC ; Start 11/22/18 at 08:00 Lorazepam (Ativan) 1 mg Q8 PRN PO anxiety Last administered on 11/21/18at 15:12; Admin Dose 1 MG; Start 11/21/18 at 15:00 Assessment/Plan Hospital Course (Demo Recall) 1. Preoperative evaluation prior to possible need for peripheral revascularization surgery.-neg trop x 3 and NL EF by echo with no sig valve abnl - s/p decomp[ensation and CODE Blue - pt was rossana last night, now in sinus -now extubated., more alert, HR controlled. 2. Peripheral arterial disease with nonhealing gangrenous changes in left toe ulceration - post op now. Treated. 3. Hypertension, under reasonable control on current medications. NOw stable. Will allow fpr now. BETTER now. 4. Dyslipidemia. 5. Diabetes mellitus- con't to keep euglycemic 6. s/p cardiopulmonary arrest - con't resp Rx - pulmonary follows - reasonable saturation now 7. Bradycardic intermittenjt by tele - now back to sinus - will monitor - dopa gtt if sustained rossana. Now stable. NO indication for pacer now 8. Positive troponin after arrest-? secondary to or primary to arrest - no intervention planned now. 9. Anemia - H/H stableat 10.9 - no bleeding now, RAJI BROWNE MD Nov 21, 2018 15:39
[2018-11-21] MEDS: ATORVASTATIN 80 MG TAB PO SCH (21:57)
[2018-11-22] VITALS (22 sets, daily range): BP systolic 94–170; BP diastolic 55–88; PULSE 76–90; RESP 13–20
[2018-11-22] MEDS: INSULIN ASPART [NOVOLOG] 3 ML PEN SC SCH ×6 (01:00→21:00)
[2018-11-22] MEDS: DAKINS 0.0125%(1/40) 473 ML SOLUTION TP SCH ×3 (01:50→09:38)
[2018-11-22] MEDS: ACCU-CHEK XX SCH ×2 (01:51)
[2018-11-22] MEDS: LORAZEPAM 1 MG TAB PO PRN (07:15)
[2018-11-22] MEDS: LEVOFLOXACIN 250 MG TAB PO SCH (07:16)
[2018-11-22] MEDS: INSULIN GLARGINE [LANTus] (100 UNITS/ML) SYG SC SCH (08:00)
--- NOTE | 2018-11-22 08:31 | PN ---
DATE: 11/22/2018 SUBJECTIVE: The patient remains confused. The patient is pending possible amputation of lower toe. No other events noted. No hemoptysis, hematemesis or hematochezia. OBJECTIVE: VITAL SIGNS: Blood pressure is 132/65, respirations 20, pulse 81, temperature 98.1. HEENT: Head is normocephalic. NECK: Supple. HEART: Regular rate. LUNGS: Show diminished breath sounds at the base. ABDOMEN: Soft, nontender to palpation without rebound or guarding. EXTREMITIES: Negative for clubbing, cyanosis. Positive edema, improving. Noted discoloration gangr bianka of lower toe, left foot. DERMATOLOGIC: No rashes. MUSCULOSKELETAL: No joint effusion. NEUROLOGIC: No change in exam. MEDICATIONS: The patient's medications have been reviewed. LABORATORY DATA: Reviewed. IMAGING STUDIES: Have been reviewed. ASSESSMENT AND PLAN: 1. Nonoliguric acute kidney injury. Etiology is secondary to hemodynamics, tubular injury. Renal f unction has stabilized. Continue current treatment plan, supportive care, renally dose all meds. 2. Volume overload. Etiology is secondary to acute kidney injury, diastolic heart failure. The pat ient is clinically improving. Continue current diuretic regimen. 3. Anemia. Monitor hemoglobin and hematocrit levels. 4. Mineral bone disorder, monitor calcium and phosphorus levels. 5. Respiratory failure, status post extubation, currently stable on nasal cannula. 6. Arrhythmia. Continue to monitor. 7. Peripheral vascular disease, status post iliofemoral bypass. 8. Left toe gangrene. The patient is pending possible amputation. Continue to monitor. Follow pod iatry, vascular surgery. 9. Hypertension. Continue current blood pressure regimen, adjust as needed. 10. Dyslipidemia. Continue statin therapy. 11. Acute encephalopathy, etiology is toxic metabolic. 12. Status post cardiac arrest. Dictated By: JEAN CLAUDE LARIOS DO NR/NTS Conf#: [id number] DID#: [id number] CC: TOMASA SCOTT; JAYLEEN BUNN MD; FRANTZ SCHWAB MD;*EndCC*
[2018-11-22] MEDS: DEXTROSE 5%-0.45% NACL 1,000 ML IV SCH ×2 (08:37→22:18)
[2018-11-22] MEDS: ASCORBIC ACID 500 MG TAB PO SCH (09:00)
[2018-11-22] MEDS: LISINOPRIL 5 MG TAB PO SCH (09:00)
[2018-11-22] MEDS: FUROSEMIDE 40 MG TAB PO SCH (09:00)
[2018-11-22] MEDS: AMLODIPINE 5 MG TAB PO SCH ×2 (09:00→21:00)
[2018-11-22] MEDS: FAMOTIDINE 20 MG TAB NGT SCH (09:00)
[2018-11-22] MEDS: CLOPIDOGREL 75 MG TAB GTB SCH (09:00)
[2018-11-22] MEDS: GABAPENTIN (50 MG/ML PO SYG) PO SCH ×2 (09:00→21:00)
[2018-11-22] MEDS: ASPIRIN 81 MG TAB GTB SCH (09:00)
[2018-11-22] MEDS: ZINC SULFATE 220 MG CAP PO SCH (09:00)
[2018-11-22] MEDS: HEPARIN 5,000 UNIT/1 ML VIAL SC SCH ×2 (09:00→22:47)
[2018-11-22] MEDS: POVIDONE IODINE 10% 28.4 GM OINT TOP SCH ×2 (09:00→09:38)
[2018-11-22] MEDS: FLUCONAZOLE 100 MG TAB PO SCH (09:00)
--- NOTE | 2018-11-22 09:09 | HPN ---
Date/Time of Note Date/Time of Note DATE: 11/22/18 TIME: 09:09 Interval H&P Admission Note Pt. seen H&P reviewed: No system changes IVELISSE BLACKWELL DPM Nov 22, 2018 09:09
[2018-11-22] MEDS: MEROPENEM 500MG/50 ML (PMX) 50 ML IVPB SCH ×2 (10:28→22:13)
--- NOTE | 2018-11-22 10:43 | CONS ---
Consult Date/Type/Reason Admit Date/Time Nov 04, 2018 at 07:34 Initial Consult Date 11/11/18 Type of Consultation: Pulm Requesting Provider: KARL WOOD MD Date/Time of Note DATE: 11/22/18 TIME: 10:40 Subjective No acute events - BP on high side - pt agitated - will adjust therapy as tolerated, but con't to follow. ROS: No fever, no chills, no nausea, no vomiting, no diarrhea/constipation - will monitor clinically now Objective Vitals Vital Signs Date Temp Pulse Resp B/P (MAP) Pulse Ox O2 O2 Flow FiO2 Time Delivery Rate 11/22/18 98.4 90 18 159/88 98 07:39 (111) 11/22/18 3.0 03:07 11/21/18 Nasal 20:00 Cannula 11/18/18 40 09:09 Intake and Output 11/21/18 11/21/18 11/22/18 1414:59 22:59 06:59 IntakeIntake Total 50 ml 380 ml OutputOutput Total 2400 ml 1100 ml 1600 ml BalanceBalance -2350 ml -1100 ml -1220 ml Exam General: WN/WD/NAD, AOx 0 confused HEENT: Unicetric/atraumatic/EOMI (does not follow commands) NECK: JVD elevated, no thyromegaly Lymph: no lymphadenopathy HEART: regular with no S3, II/ systolic murmur at apex LUNGS: Coarse sounds ABD: soft, NT, ND, +BS : Intact Neuro: non focal SKIN: chronic changes EXT: trace edema Results/Medications Result Diagram: 11/22/18 0555 11/22/18 0555 Results 24 hrs Laboratory Tests Test 11/21/18 12:29 11/21/18 17:40 11/21/18 21:54 11/22/18 01:46 Bedside Glucose 176 294 H 173 134 Test 11/22/18 05:44 11/22/18 05:55 11/22/18 08:41 11/22/18 09:28 Bedside Glucose 110 82 113 White Blood Count 16.3 H Red Blood Count 4.11 L Hemoglobin 12.2 L Hematocrit 37.2 L Mean Corpuscular Volume 90.5 Mean Corpuscular 29.7 Hemoglobin Mean Corpuscular 32.8 Hemoglobin Concent Red Cell Distribution 13.5 Width Platelet Count 414 Mean Platelet Volume 10.7 H Immature Granulocytes % 0.600 H Neutrophils % 72.8 Lymphocytes % 10.1 L Monocytes % 12.2 H Eosinophils % 4.1 Basophils % 0.2 Nucleated Red Blood 0.0 Cells % Immature Granulocytes # 0.090 H Neutrophils # 11.9 H Lymphocytes # 1.6 Monocytes # 2.0 H Eosinophils # 0.7 H Basophils # 0.0 Nucleated Red Blood 0.0 Cells # Sodium Level 140 Potassium Level 4.0 Chloride Level 104 Carbon Dioxide Level 27 Anion Gap 9 Blood Urea Nitrogen 37 H Creatinine 1.12 Est Glomerular Filtrat Rate mL/min Glucose Level 91 # Calcium Level 8.7 Phosphorus Level 3.1 Magnesium Level 2.0 Home Meds Active Scripts Silver Sulfadiazine* (Silvadene*) 1% - 20 Gm Cream.gm., 1 APPLIC TOP DAILY, #1 TUB Prov:JESSIE WONG MD 06/12/18 Amoxicillin-Clavulanate K* (Augmentin*) 875 Mg Tab, 875 MG PO BID, #28 TAB Prov:AMANDA GOMEZ MD 06/08/14 Reported Medications Insulin Aspart (Novolog Mix (70/30)) 100 Units/Ml Soln, 28 SC with diinner, VIAL 11/04/18 Insulin Aspart (Novolog Mix (70/30)) 100 Units/Ml Soln, 38 SC WITH BREAKFAST, VIAL 11/04/18 Benazepril Hcl* (Benazepril Hcl*) 40 Mg Tablet, 40 MG PO DAILY, #30 TAB 11/04/18 Ergocalciferol (Vitamin D2) (VITAMIN D2) 50,000 Unit Capsule, 32875 UNIT PO weekly for saturdays, CAP 11/04/18 Omeprazole* (Omeprazole*) 20 Mg Capsule.dr, 20 MG PO DAILY, #30 CAP 11/04/18 Aspirin* (Aspirin* EC) 81 Mg Tablet.dr, 81 MG PO DAILY, TAB 11/04/18 Gabapentin* (Gabapentin*) 300 Mg Capsule, 300 MG PO BID, #60 CAP 11/04/18 Nebivolol Hcl* (Bystolic*) 20 Mg Tablet, 20 MG PO DAILY, #30 TAB 11/04/18 Atorvastatin Calcium* (Atorvastatin Calcium*) 20 Mg Tablet, 20 MG PO QHS, #30 TAB 11/04/18 Sulfasalazine (Azulfidine) 500 Mg Tab, 1000 MG PO TID, TAB 06/02/14 Medications Current Medications Ergocalciferol (Drisdol) 50,000 unit Sa PO Last administered on 11/09/18at 09:28; Admin Dose 50,000 UNIT; Start 11/09/18 at 09:00 Miscellaneous Medication (Bystolic) 20 mg DAILY PO Last administered on 11/11/18 09:03; Admin Dose 20 MG; Start 11/04/18 at 09:00; Status Hold Clonidine (Catapres) 0.1 mg Q6H PRN PO SBP>160 Last administered on 11/19/18 03:04; Admin Dose 0.1 MG; Start 11/04/18 at 09:00 IV Flush (NS 3 ml) 3 ml PER PROTOCOL IV ; Start 11/04/18 at 09:00 Ondansetron HCl (Zofran Inj) 4 mg Q6H PRN IV NAUSEA/VOMITING; Start 11/04/18 at 09:00 Acetaminophen (Tylenol Tab) 650 mg Q6H PRN PO .PAIN 1-3 OR TEMP; Start 11/04/18 at 09:00 Miscellaneous Information 1 ea NOTE XX ; Start 11/04/18 at 09:00 Glucose (Glutose) 15 gm Q15M PRN PO DECREASED GLUCOSE; Start 11/04/18 at 09:00 Glucose (Glutose) 22.5 gm Q15M PRN PO DECREASED GLUCOSE; Start 11/04/18 at 09:00 Dextrose (D50w Syringe) 25 ml Q15M PRN IV DECREASED GLUCOSE; Start 11/04/18 at 09:00 Dextrose (D50w Syringe) 50 ml Q15M PRN IV DECREASED GLUCOSE; Start 11/04/18 at 09:00 Glucagon (Glucagen) 1 mg Q15M PRN IM DECREASED GLUCOSE; Start 11/04/18 at 09:00 Glucose (Glutose) 15 gm Q15M PRN BUCCAL DECREASED GLUCOSE; Start 11/04/18 at 09:00 Miscellaneous Information Patients own medicat... BID@10,16 XX Last administered on 11/20/18at 16:16; Admin Dose 1 EA; Start 11/04/18 at 16:00 Povidone Iodine (Povidone-Iodine) 1 applic BID TOP Last administered on 21:00; Admin Dose 1 APPLIC; Start 11/05/18 at 21:00 Sodium Hypochlorite (Dakins Diluted (1/40)) 1 applic BID TP Last administered on 11/22/18 01:50; Admin Dose 1 APPLIC; Start 11/07/18 at 09:00 Hydralazine HCl (Apresoline) 10 mg Q4H PRN IV sbp >160 Last administered on 11/20/18 14:44; Admin Dose 10 MG; Start 11/08/18 at 09:00 Famotidine (Pepcid) 20 mg DAILY NGT Last administered on 11/21/18 08:55; Admin Dose 20 MG; Start 11/11/18 at 09:30 Atropine Sulfate (Atropine) 0.5 mg PRN PRN IV SYMPTOMATIC BRADYCARDIA; Start 11/11/18 at 23:00 Clopidogrel Bisulfate (plaVIX) 75 mg DAILY GTB Last administered on 11/21/18 08:52; Admin Dose 75 MG; Start 11/13/18 at 09:00 Heparin Sodium (Porcine) (Heparin (5000 Units/1ml)) 5,000 unit BID SC Last administered on 11/21/18 22:07; Admin Dose 5,000 UNIT; Start 11/14/18 at 21:00 Bisacodyl (Dulcolax Supp) 10 mg DAILY PRN [place] CONSTIPATION Last administered on 11/14/18 16:43; Admin Dose 10 MG; Start 11/14/18 at 16:30 Dextrose (D50w Syringe) 25 ml Q15M PRN IV .DECREASED GLUCOSE; Start 11/15/18 at 06:30 Dextrose (D50w Syringe) 50 ml Q15M PRN IV .DECREASED GLUCOSE; Start 11/15/18 at 06:30 Meropenem/Sodium Chloride 50 ml @ 100 mls/hr Q12 IVPB Last administered on 11/22/18 10:28; Admin Dose 100 MLS/HR; Start 11/15/18 at 14:30 IV Flush (NS 10 ml) 10 ml PRN PRN IV FLUSH LINE; Start 11/15/18 at 15:30 Fluconazole (Diflucan) 100 mg DAILY PO Last administered on 11/21/18 08:52; Admin Dose 100 MG; Start 11/16/18 at 14:00 Polyethylene Glycol (Miralax) 17 gm DAILY PRN NGT constipation; Start 11/17/18 at 09:00 Senna/Docusate Sodium (Senokot-S) 1 tab BID PRN NGT constipation; Start 11/17/18 at 09:00 Diagnostic Test (Pha) (Accu-Chek) 1 ea 02 XX ; Start 11/19/18 at 02:00 Gabapentin (Neurontin Liquid) 300 mg BID PO Last administered on 11/21/18 21:00; Admin Dose 300 MG; Start 11/18/18 at 21:00 Hydralazine HCl (Apresoline) 100 mg TID PO Last administered on 11/21/18 21:57; Admin Dose 100 MG; Start 11/18/18 at 21:00 Levofloxacin (Levaquin) 250 mg DAILY@06 PO Last administered on 11/22/18 07:16; Admin Dose 250 MG; Start 11/19/18 at 06:00 Diagnostic Test (Pha) (Accu-Chek) 1 ea 02 XX ; Start 11/20/18 at 02:00 Insulin Aspart (Novolog Insulin Pen) NOVOLOG *MODERATE* ALGORI... Q4 SC Last administered on 11/21/18 22:33; Admin Dose 2 UNIT; Start 11/19/18 at 09:00 Labetalol HCl (Labetalol) 10 mg Q4H PRN IV sbp >160 Last administered on 9at 19:13; Admin Dose 10 MG; Start 11/19/18 at 10:00 Ascorbic Acid (Vitamin C) 500 mg DAILY PO Last administered on 11/21/18 08:53; Admin Dose 500 MG; Start 11/20/18 at 09:00 Zinc Sulfate (Zinc Sulfate) 220 mg DAILY PO Last administered on 11/21/18 08:56; Admin Dose 220 MG; Start 11/20/18 at 09:00 Atorvastatin Calcium (Lipitor) 80 mg QHS PO Last administered on 11/21/18 21:57; Admin Dose 80 MG; Start 11/19/18 at 21:00 Amlodipine Besylate (Norvasc) 5 mg BID PO Last administered on 11/21/18 21:57; Admin Dose 5 MG; Start 11/20/18 at 21:00 Aspirin (Aspirin) 81 mg DAILY GTB Last administered on 7/4/19at 08:53; Admin Dose 81 MG; Start 11/21/18 at 09:00 Furosemide (Lasix) 40 mg DAILY PO Last administered on 11/21/18at 08:55; Admin Dose 40 MG; Start 11/21/18 at 09:00 Lisinopril (Zestril) 5 mg DAILY PO Last administered on 11/21/18at 08:55; Admin Dose 5 MG; Start 11/21/18 at 09:00 Insulin Glargine (Lantus) 25 units DAILY@0800 SC ; Start 11/22/18 at 08:00 Dextrose/Sodium Chloride 1,000 ml @ 75 mls/hr [id number] IV Last administered on 11/22/18at 08:37; Admin Dose 75 MLS/HR; Start 11/22/18 at 08:30 Lorazepam (Ativan) 0.5 mg Q6H PRN PO ANXIETY; Start 11/22/18 at 11:00; Status UNV Quetiapine Fumarate (Seroquel) 25 mg BID PO ; Start 11/22/18 at 21:00; Status UNV Assessment/Plan Hospital Course (Demo Recall) 1. Preoperative evaluation prior to possible need for peripheral revascularization surgery.-neg trop x 3 and NL EF by echo with no sig valve abnl - s/p decomp[ensation and CODE Blue - pt was rossana last night, now in sinus -now extubated., more alert, HR controlled. Will monitor now - no focal symptoms. 2. Peripheral arterial disease with nonhealing gangrenous changes in left toe ulceration - post op now. Treated. 3. Hypertension, under reasonable control on current medications. NOW stable. Will allow fpr now. BETTER now. 4. Dyslipidemia. 5. Diabetes mellitus- con't to keep euglycemic 6. s/p cardiopulmonary arrest - con't resp Rx - pulmonary follows - reasonable saturation now 7. Bradycardic intermittent by tele - now back to sinus - will monitor - dopa gtt if sustained rossana. Now stable. NO indication for pacer now 8. Positive troponin after arrest-? secondary to or primary to arrest - no intervention planned now. 9. Anemia - H/H stableat 10.9 - no bleeding now, 10. AMS - will check ECHO r/o large veg per ID rec. RAJI BROWNE MD Nov 22, 2018 10:43
[2018-11-22] MEDS ORDERED: LORAZEPAM 0.5 MG TAB PO PRN (11:00)
[2018-11-22] MEDS: LORAZEPAM 2 MG INJ IV PRN ×2 (11:14→19:32)
--- NOTE | 2018-11-22 13:28 | PN ---
Date/Time of Note Date/Time of Note DATE: 11/22/18 TIME: 13:27 Objective Vitals Vital Signs Date Temp Pulse Resp B/P (MAP) Pulse Ox O2 O2 Flow FiO2 Time Delivery Rate 11/22/18 3.0 12:52 11/22/18 98.6 80 18 152/82 98 12:00 (105) 11/22/18 Nasal 09:30 Cannula 11/18/18 40 09:09 Intake and Output 11/21/18 11/21/18 11/22/18 1515:00 23:00 07:00 IntakeIntake Total 50 ml 380 ml OutputOutput Total 2400 ml 1100 ml 1600 ml BalanceBalance -2350 ml -1100 ml -1220 ml Results Result Diagram: 11/22/18 0555 11/22/18 0555 Medications Medications Current Medications Ergocalciferol (Drisdol) 50,000 unit Sa PO Last administered on 11/09/18at 09:28; Admin Dose 50,000 UNIT; Start 11/09/18 at 09:00 Miscellaneous Medication (Bystolic) 20 mg DAILY PO Last administered on 11/11/18at 09:03; Admin Dose 20 MG; Start 11/04/18 at 09:00; Status Hold Clonidine (Catapres) 0.1 mg Q6H PRN PO SBP>160 Last administered on 11/19/18at 03:04; Admin Dose 0.1 MG; Start 11/04/18 at 09:00 IV Flush (NS 3 ml) 3 ml PER PROTOCOL IV ; Start 11/04/18 at 09:00 Ondansetron HCl (Zofran Inj) 4 mg Q6H PRN IV NAUSEA/VOMITING; Start 11/04/18 at 09:00 Acetaminophen (Tylenol Tab) 650 mg Q6H PRN PO .PAIN 1-3 OR TEMP; Start 11/04/18 at 09:00 Miscellaneous Information 1 ea NOTE XX ; Start 11/04/18 at 09:00 Glucose (Glutose) 15 gm Q15M PRN PO DECREASED GLUCOSE; Start 11/04/18 at 09:00 Glucose (Glutose) 22.5 gm Q15M PRN PO DECREASED GLUCOSE; Start 11/04/18 at 09:00 Dextrose (D50w Syringe) 25 ml Q15M PRN IV DECREASED GLUCOSE; Start 11/04/18 at 09:00 Dextrose (D50w Syringe) 50 ml Q15M PRN IV DECREASED GLUCOSE; Start 11/04/18 at 09:00 Glucagon (Glucagen) 1 mg Q15M PRN IM DECREASED GLUCOSE; Start 11/04/18 at 09:00 Glucose (Glutose) 15 gm Q15M PRN BUCCAL DECREASED GLUCOSE; Start 11/04/18 at 09:00 Miscellaneous Information Patients own medicat... BID@10,16 XX Last administered on 11/20/18 16:16; Admin Dose 1 EA; Start 11/04/18 at 16:00 Povidone Iodine (Povidone-Iodine) 1 applic BID TOP Last administered on 11/21/18 21:00; Admin Dose 1 APPLIC; Start 11/05/18 at 21:00 Sodium Hypochlorite (Dakins Diluted ()) 1 applic BID TP Last administered on 11/22/18 01:50; Admin Dose 1 APPLIC; Start 11/07/18 at 09:00 Hydralazine HCl (Apresoline) 10 mg Q4H PRN IV sbp >160 Last administered on 11/20/18 14:44; Admin Dose 10 MG; Start 11/08/18 at 09:00 Famotidine (Pepcid) 20 mg DAILY NGT Last administered on 11/21/18 08:55; Admin Dose 20 MG; Start 11/11/18 at 09:30 Atropine Sulfate (Atropine) 0.5 mg PRN PRN IV SYMPTOMATIC BRADYCARDIA; Start 11/11/18 at 23:00 Clopidogrel Bisulfate (plaVIX) 75 mg DAILY GTB Last administered on 11/21/18 08:52; Admin Dose 75 MG; Start 11/13/18 at 09:00 Heparin Sodium (Porcine) (Heparin (5000 Units/1ml)) 5,000 unit BID SC Last administered on 11/21/18 22:07; Admin Dose 5,000 UNIT; Start 11/14/18 at 21:00 Bisacodyl (Dulcolax Supp) 10 mg DAILY PRN NV CONSTIPATION Last administered on 11/14/18 16:43; Admin Dose 10 MG; Start 11/14/18 at 16:30 Dextrose (D50w Syringe) 25 ml Q15M PRN IV .DECREASED GLUCOSE; Start 11/15/18 at 06:30 Dextrose (D50w Syringe) 50 ml Q15M PRN IV .DECREASED GLUCOSE; Start 11/15/18 at 06:30 Meropenem/Sodium Chloride 50 ml @ 100 mls/hr Q12 IVPB Last administered on 11/22/18at 10:28; Admin Dose 100 MLS/HR; Start 11/15/18 at 14:30 IV Flush (NS 10 ml) 10 ml PRN PRN IV FLUSH LINE; Start 11/15/18 at 15:30 Fluconazole (Diflucan) 100 mg DAILY PO Last administered on 11/21/18 08:52; Admin Dose 100 MG; Start 11/16/18 at 14:00 Polyethylene Glycol (Miralax) 17 gm DAILY PRN NGT constipation; Start 11/17/18 at 09:00 Senna/Docusate Sodium (Senokot-S) 1 tab BID PRN NGT constipation; Start 11/17/18 at 09:00 Gabapentin (Neurontin Liquid) 300 mg BID PO Last administered on 11/21/18 21:00; Admin Dose 300 MG; Start 11/18/18 at 21:00 Hydralazine HCl (Apresoline) 100 mg TID PO Last administered on 11/21/18 21:57; Admin Dose 100 MG; Start 11/18/18 at 21:00 Levofloxacin (Levaquin) 250 mg DAILY@06 PO Last administered on 11/22/18 07:16; Admin Dose 250 MG; Start 11/19/18 at 06:00 Diagnostic Test (Pha) (Accu-Chek) 1 ea 02 XX ; Start 11/20/18 at 02:00 Insulin Aspart (Novolog Insulin Pen) NOVOLOG *MODERATE* ALGORI... Q4 SC Last administered on 11/21/18 22:33; Admin Dose 2 UNIT; Start 11/19/18 at 09:00 Labetalol HCl (Labetalol) 10 mg Q4H PRN IV sbp >160 Last administered on 11/19/18at 19:13; Admin Dose 10 MG; Start 11/19/18 at 10:00 Ascorbic Acid (Vitamin C) 500 mg DAILY PO Last administered on 11/21/18 08:53; Admin Dose 500 MG; Start 11/20/18 at 09:00 Zinc Sulfate (Zinc Sulfate) 220 mg DAILY PO Last administered on 11/21/18 08:56; Admin Dose 220 MG; Start 11/20/18 at 09:00 Atorvastatin Calcium (Lipitor) 80 mg QHS PO Last administered on 11/21/18 21:57; Admin Dose 80 MG; Start 11/19/18 at 21:00 Amlodipine Besylate (Norvasc) 5 mg BID PO Last administered on 11/21/18 21:57; Admin Dose 5 MG; Start 11/20/18 at 21:00 Aspirin (Aspirin) 81 mg DAILY GTB Last administered on 11/21/18 08:53; Admin Dose 81 MG; Start 11/21/18 at 09:00 Furosemide (Lasix) 40 mg DAILY PO Last administered on 11/21/18 08:55; Admin Dose 40 MG; Start 11/21/18 at 09:00 Lisinopril (Zestril) 5 mg DAILY PO Last administered on 11/21/18 08:55; Admin Dose 5 MG; Start 11/21/18 at 09:00 Insulin Glargine (Lantus) 25 units DAILY@0800 SC ; Start 11/22/18 at 08:00 Dextrose/Sodium Chloride 1,000 ml @ 75 mls/hr [id number] IV Last administered on 11/22/18 08:37; Admin Dose 75 MLS/HR; Start 11/22/18 at 08:30 Quetiapine Fumarate (Seroquel) 25 mg BID PO ; Start 11/22/18 at 21:00 Lorazepam (Ativan) 0.5 mg Q6H PRN IV anxiety/agitation Last administered on 11/22/18 11:14; Admin Dose 0.5 MG; Start 11/22/18 at 11:00 VTE Prophylaxis Risk score (from Nsg)>0 risk: 9 SCD applied (from Nsg): Yes Lines/Catheters IV Catheter Type: Vora in Place: No Assessment/Plan Hospital Course Subjective Patient still having episodes of confusion and hallucinations Objective Physical exam General: Patient is laying in bed responding to questions however has episodes of confusion Mentation: Patient is alert and oriented x1 Head: Normocephalic atraumatic Eyes: EOMI, pupils reactive to light Neck: Supple, nontender, midline Respiratory: Coarse to auscultation bilaterally Cardiovascular: regular rate, no obvious murmurs Gastrointestinal: non-tender to palpation, bowel sounds heard. Neurological: Moves all extremities spontaneously Skin: No new skin lesions, surgical site bandaged, CDI assessment/Plan Acute encephalopathy -May be secondary to delirium versus anoxic brain injury secondary to cardiac arrest versus residual effect of CVA -Neurology consulted -CT noted, has age-indeterminate infarct however it should be noted that patient's son stated that patient does have a history of infarct in the past and this may be that issue -MRI noted for small CVA Left frontal CVA -Discussed with neurology, small CVA -Aspirin and Plavix already on board due to vascular disease -Statin left-sided internal carotid artery stenosis -25% per CT angiogram, continue aspirin, statin, Plavix per vascular surgeon Acute hypoxic respiratory failure-resolving -Extubated, doing well - CT chest without contrast results noted - Pulmonology on board for vent management Cardiac arrest s/p ROSC - Cardiology on board and appreciate recommendations - ECHO with preserved EF left fifth toe gangrenous ulcer - ID on board and appreciate consultation. Will continue current antibiotics - Continue local wound care - Podiatry on board and will plan for further amputation in the near future once stable Severe peripheral vascular disease - s/p left femoral endarterectomy, iliofemoral bypass and femoral to posterior tibial bypass done on November 08, 2018 - Vascular surgery consultation appreciated -Continue aspirin and Plavix Diabetes Mellitus - A1c noted - insulin as needed Acute kidney injury- improving - nephrology consultation appreciated and most likely due to contrast induced nephropathy as well as cardiorenal. managing diuretics - continue monitoring and avoid nephrotoxic agents Essential HTN -Continue home medications at this time - BP stable Peripheral neuropathy - cont. gabapentin HLD - On statin Chronic anemia - Stable H&H. Monitor - no need for transfusions at this time Urinary retention - Urology on board and appreciate recommendations. Disposition -Scheduled for localized anesthesia with amputation of the toe, patient still exhibiting signs of delirium. FRANTZ SCHWAB Nov 22, 2018 13:28
--- NOTE | 2018-11-22 14:04 | CONS ---
Consult Date/Type/Reason Admit Date/Time Nov 04, 2018 at 07:34 Initial Consult Date 11/11/18 Type of Consult Pulmonary Requesting Provider: KARL WOOD MD Date/Time of Note DATE: 11/22/18 TIME: 14:02 Subjective Increasing confusion and agitation overnight. Pending further debridement of lower extremity wound today. Objective Vital Signs Date Temp Pulse Resp B/P (MAP) Pulse Ox O2 O2 Flow FiO2 Time Delivery Rate 11/22/18 3.0 12:52 11/22/18 98.6 80 18 152/82 98 12:00 (105) 11/22/18 Nasal 09:30 Cannula 11/18/18 40 09:09 Intake and Output 11/21/18 11/21/18 11/22/18 1515:00 23:00 07:00 IntakeIntake Total 50 ml 380 ml OutputOutput Total 2400 ml 1100 ml 1600 ml BalanceBalance -2350 ml -1100 ml -1220 ml Exam NECK: Supple. No JVD or lymphadenopathy. CARDIAC: S1, S2, no added sounds or murmurs. CHEST: Diminished air entry bilaterally. ABDOMEN: Soft, nontender. No guarding or rebound. EXTREMITIES: No cyanosis, clubbing, 1+ edema. NEUROLOGIC: Generalized weakness. Vent Setting Ventilator Support Mode: CPAP, PS, SPONT Fraction of Inspired Oxygen pe: 40 Positive End Expiratory Pressu: 5.0 Results/Medications Result Diagram: 11/22/18 0555 11/22/18 0555 Results 24 hrs Laboratory Tests Test 11/21/18 17:40 11/21/18 21:54 11/22/18 01:46 11/22/18 05:44 Bedside Glucose 294 H 173 134 110 Test 11/22/18 05:55 11/22/18 08:41 11/22/18 09:28 11/22/18 12:36 White Blood Count 16.3 H Red Blood Count 4.11 L Hemoglobin 12.2 L Hematocrit 37.2 L Mean Corpuscular Volume 90.5 Mean Corpuscular 29.7 Hemoglobin Mean Corpuscular 32.8 Hemoglobin Concent Red Cell Distribution 13.5 Width Platelet Count 414 Mean Platelet Volume 10.7 H Immature Granulocytes % 0.600 H Neutrophils % 72.8 Lymphocytes % 10.1 L Monocytes % 12.2 H Eosinophils % 4.1 Basophils % 0.2 Nucleated Red Blood 0.0 Cells % Immature Granulocytes # 0.090 H Neutrophils # 11.9 H Lymphocytes # 1.6 Monocytes # 2.0 H Eosinophils # 0.7 H Basophils # 0.0 Nucleated Red Blood 0.0 Cells # Sodium Level 140 Potassium Level 4.0 Chloride Level 104 Carbon Dioxide Level 27 Anion Gap 9 Blood Urea Nitrogen 37 H Creatinine 1.12 Est Glomerular Filtrat Rate mL/min Glucose Level 91 # Calcium Level 8.7 Phosphorus Level 3.1 Magnesium Level 2.0 Bedside Glucose 82 113 123 Medications Current Medications Ergocalciferol (Drisdol) 50,000 unit Sa PO Last administered on 11/09/18at 09:28; Admin Dose 50,000 UNIT; Start 11/09/18 at 09:00 Miscellaneous Medication (Bystolic) 20 mg DAILY PO Last administered on 11/11/18at 09:03; Admin Dose 20 MG; Start 11/04/18 at 09:00; Status Hold Clonidine (Catapres) 0.1 mg Q6H PRN PO SBP>160 Last administered on 11/19/18at 03:04; Admin Dose 0.1 MG; Start 11/04/18 at 09:00 IV Flush (NS 3 ml) 3 ml PER PROTOCOL IV ; Start 11/04/18 at 09:00 Ondansetron HCl (Zofran Inj) 4 mg Q6H PRN IV NAUSEA/VOMITING; Start 11/04/18 at 09:00 Acetaminophen (Tylenol Tab) 650 mg Q6H PRN PO .PAIN 1-3 OR TEMP; Start 11/04/18 at 09:00 Miscellaneous Information 1 ea NOTE XX ; Start 11/04/18 at 09:00 Glucose (Glutose) 15 gm Q15M PRN PO DECREASED GLUCOSE; Start 11/04/18 at 09:00 Glucose (Glutose) 22.5 gm Q15M PRN PO DECREASED GLUCOSE; Start 11/04/18 at 09:00 Dextrose (D50w Syringe) 25 ml Q15M PRN IV DECREASED GLUCOSE; Start 11/04/18 at 09:00 Dextrose (D50w Syringe) 50 ml Q15M PRN IV DECREASED GLUCOSE; Start 11/04/18 at 09:00 Glucagon (Glucagen) 1 mg Q15M PRN IM DECREASED GLUCOSE; Start 11/04/18 at 09:00 Glucose (Glutose) 15 gm Q15M PRN BUCCAL DECREASED GLUCOSE; Start 11/04/18 at 09:00 Miscellaneous Information Patients own medicat... BID@10,16 XX Last administered on 11/20/18 16:16; Admin Dose 1 EA; Start 11/04/18 at 16:00 Povidone Iodine (Povidone-Iodine) 1 applic BID TOP Last administered on 11/21/18 21:00; Admin Dose 1 APPLIC; Start 11/05/18 at 21:00 Sodium Hypochlorite (Dakins Diluted (40)) 1 applic BID TP Last administered on 11/22/18 01:50; Admin Dose 1 APPLIC; Start 11/07/18 at 09:00 Hydralazine HCl (Apresoline) 10 mg Q4H PRN IV sbp >160 Last administered on 11/20/18 14:44; Admin Dose 10 MG; Start 11/08/18 at 09:00 Famotidine (Pepcid) 20 mg DAILY NGT Last administered on 11/21/18 08:55; Admin Dose 20 MG; Start 11/11/18 at 09:30 Atropine Sulfate (Atropine) 0.5 mg PRN PRN IV SYMPTOMATIC BRADYCARDIA; Start 11/11/18 at 23:00 Heparin Sodium (Porcine) (Heparin (5000 Units/1ml)) 5,000 unit BID SC Last administered on 11/21/18 22:07; Admin Dose 5,000 UNIT; Start 11/14/18 at 21:00 Bisacodyl (Dulcolax Supp) 10 mg DAILY PRN IN CONSTIPATION Last administered on 11/14/18 16:43; Admin Dose 10 MG; Start 11/14/18 at 16:30 Dextrose (D50w Syringe) 25 ml Q15M PRN IV .DECREASED GLUCOSE; Start 11/15/18 at 06:30 Dextrose (D50w Syringe) 50 ml Q15M PRN IV .DECREASED GLUCOSE; Start 11/15/18 at 06:30 Meropenem/Sodium Chloride 50 ml @ 100 mls/hr Q12 IVPB Last administered on 11/22/18 10:28; Admin Dose 100 MLS/HR; Start 11/15/18 at 14:30 IV Flush (NS 10 ml) 10 ml PRN PRN IV FLUSH LINE; Start 11/15/18 at 15:30 Fluconazole (Diflucan) 100 mg DAILY PO Last administered on 11/21/18 08:52; Admin Dose 100 MG; Start 11/16/18 at 14:00 Polyethylene Glycol (Miralax) 17 gm DAILY PRN NGT constipation; Start 11/17/18 at 09:00 Senna/Docusate Sodium (Senokot-S) 1 tab BID PRN NGT constipation; Start 11/17/18 at 09:00 Gabapentin (Neurontin Liquid) 300 mg BID PO Last administered on 11/21/18 21:00; Admin Dose 300 MG; Start 11/18/18 at 21:00 Hydralazine HCl (Apresoline) 100 mg TID PO Last administered on 11/21/18 21:57; Admin Dose 100 MG; Start 11/18/18 at 21:00 Levofloxacin (Levaquin) 250 mg DAILY@06 PO Last administered on 11/22/18 07:16; Admin Dose 250 MG; Start 11/19/18 at 06:00 Diagnostic Test (Pha) (Accu-Chek) 1 ea 02 XX ; Start 11/20/18 at 02:00 Insulin Aspart (Novolog Insulin Pen) NOVOLOG *MODERATE* ALGORI... Q4 SC Last administered on 11/21/18 22:33; Admin Dose 2 UNIT; Start 11/19/18 at 09:00 Labetalol HCl (Labetalol) 10 mg Q4H PRN IV sbp >160 Last administered on 11/19/18 19:13; Admin Dose 10 MG; Start 11/19/18 at 10:00 Ascorbic Acid (Vitamin C) 500 mg DAILY PO Last administered on 11/21/18 08:53; Admin Dose 500 MG; Start 11/20/18 at 09:00 Zinc Sulfate (Zinc Sulfate) 220 mg DAILY PO Last administered on 11/21/18 08:56; Admin Dose 220 MG; Start 11/20/18 at 09:00 Atorvastatin Calcium (Lipitor) 80 mg QHS PO Last administered on 11/21/18 21:57; Admin Dose 80 MG; Start 11/19/18 at 21:00 Amlodipine Besylate (Norvasc) 5 mg BID PO Last administered on 11/21/18 21:57; Admin Dose 5 MG; Start 11/20/18 at 21:00 Aspirin (Aspirin) 81 mg DAILY GTB Last administered on 11/21/18at 08:53; Admin Dose 81 MG; Start 11/21/18 at 09:00 Furosemide (Lasix) 40 mg DAILY PO Last administered on 11/21/18at 08:55; Admin Dose 40 MG; Start 11/21/18 at 09:00 Lisinopril (Zestril) 5 mg DAILY PO Last administered on 11/21/18at 08:55; Admin Dose 5 MG; Start 11/21/18 at 09:00 Insulin Glargine (Lantus) 25 units DAILY@0800 SC ; Start 11/22/18 at 08:00 Dextrose/Sodium Chloride 1,000 ml @ 75 mls/hr [id number] IV Last administered on 11/22/18at 08:37; Admin Dose 75 MLS/HR; Start 11/22/18 at 08:30 Quetiapine Fumarate (Seroquel) 25 mg BID PO ; Start 11/22/18 at 21:00 Lorazepam (Ativan) 0.5 mg Q6H PRN IV anxiety/agitation Last administered on 11/22/18at 11:14; Admin Dose 0.5 MG; Start 11/22/18 at 11:00 Clopidogrel Bisulfate (plaVIX) 75 mg DAILY PO ; Start 11/23/18 at 09:00 Assessment/Plan Hospital Course (Demo Recall) IMPRESSION 1. Acute hypoxemic respiratory failure likely following cardiopulmonary arrest. Chest x-ray appears to be consistent with ARDS. Clinical improvement. Now safely extubated. 2. Recent new onset bradycardia.now resolved. 3. History of peripheral vascular disease. 4. History of poorly controlled diabetes. 5. Anemia, no GIB 6. Leukocytosis likely secondary to steroids. 7. Encephalopathy new CVA noted. PLAN: 1. Diuretics as tolerated. 2. Stable off mechanical ventilation. Strict aspiration precautions 3. Wound care and podiatry recommendations 4. May require nasogastric tube feeding given persistent encephalopathy and decreased p.o. intake EDWIGE CARRANZA MD, [facility] Nov 22, 2018 14:04
[2018-11-22] MEDS ORDERED: HALOPERIDOL 5 MG INJ IM PRN (14:30)
--- NOTE | 2018-11-22 14:47 | PREAC ---
Date/Time of Note Date/Time of Note DATE: 11/22/18 TIME: 14:45 Anesthesia Eval and Record Evaluation Time Pre-Procedure Interview DATE: 11/22/18 TIME: 14:45 Age 72 Sex male NPO: 8 hrs Preoperative diagnosis left toe gangrene Planned procedure left foot debridement and amputation of left 5th digit Past Medical History Past Medical History: Includes Cardio: HTN, Dyslipidemia, Arrythmia (intermittent bradycardia), Other (peripheral vascular disease) Endo: Diabetes Pulm: Other (Respiratory failure, status post extubation, currently stable on nasal cannula.) Neuro: CVA (and metabolic encephalopathy) Renal: ROBERT (resolving) Surgery & Anesthesia Issues No known issue Meds Anticoagulation: No (plavix not started yet ) Beta Francia within 24 hr: No Reason Beta Francia not given: Bradycarida, Hypotension Active Scripts Silver Sulfadiazine* (Silvadene*) 1% - 20 Gm Cream.gm., 1 APPLIC TOP DAILY, #1 TUB Prov:JESSIE WONG MD 06/12/18 Amoxicillin-Clavulanate K* (Augmentin*) 875 Mg Tab, 875 MG PO BID, #28 TAB Prov:AMANDA GOMEZ MD 06/08/14 Reported Medications Insulin Aspart (Novolog Mix (70/30)) 100 Units/Ml Soln, 28 SC with diinner, VIAL 11/04/18 Insulin Aspart (Novolog Mix (70/30)) 100 Units/Ml Soln, 38 SC WITH BREAKFAST, VIAL 11/04/18 Benazepril Hcl* (Benazepril Hcl*) 40 Mg Tablet, 40 MG PO DAILY, #30 TAB 11/04/18 Ergocalciferol (Vitamin D2) (VITAMIN D2) 50,000 Unit Capsule, 06503 UNIT PO weekly for saturdays, CAP 11/04/18 Omeprazole* (Omeprazole*) 20 Mg Capsule.dr, 20 MG PO DAILY, #30 CAP 11/04/18 Aspirin* (Aspirin* EC) 81 Mg Tablet.dr, 81 MG PO DAILY, TAB 11/04/18 Gabapentin* (Gabapentin*) 300 Mg Capsule, 300 MG PO BID, #60 CAP 11/04/18 Nebivolol Hcl* (Bystolic*) 20 Mg Tablet, 20 MG PO DAILY, #30 TAB 11/04/18 Atorvastatin Calcium* (Atorvastatin Calcium*) 20 Mg Tablet, 20 MG PO QHS, #30 TAB 11/04/18 Sulfasalazine (Azulfidine) 500 Mg Tab, 1000 MG PO TID, TAB 06/02/14 Current Medications Ergocalciferol (Drisdol) 50,000 unit Sa PO Last administered on 11/09/18at 09:28; Admin Dose 50,000 UNIT; Start 11/09/18 at 09:00 Miscellaneous Medication (Bystolic) 20 mg DAILY PO Last administered on 11/11/18at 09:03; Admin Dose 20 MG; Start 11/04/18 at 09:00; Status Hold Clonidine (Catapres) 0.1 mg Q6H PRN PO SBP>160 Last administered on 11/19/18at 03:04; Admin Dose 0.1 MG; Start 11/04/18 at 09:00 IV Flush (NS 3 ml) 3 ml PER PROTOCOL IV ; Start 11/04/18 at 09:00 Ondansetron HCl (Zofran Inj) 4 mg Q6H PRN IV NAUSEA/VOMITING; Start 11/04/18 at 09:00 Acetaminophen (Tylenol Tab) 650 mg Q6H PRN PO .PAIN 1-3 OR TEMP; Start 11/04/18 at 09:00 Miscellaneous Information 1 ea NOTE XX ; Start 11/04/18 at 09:00 Glucose (Glutose) 15 gm Q15M PRN PO DECREASED GLUCOSE; Start 11/04/18 at 09:00 Glucose (Glutose) 22.5 gm Q15M PRN PO DECREASED GLUCOSE; Start 11/04/18 at 09:00 Dextrose (D50w Syringe) 25 ml Q15M PRN IV DECREASED GLUCOSE; Start 11/04/18 at 09:00 Dextrose (D50w Syringe) 50 ml Q15M PRN IV DECREASED GLUCOSE; Start 11/04/18 at 09:00 Glucagon (Glucagen) 1 mg Q15M PRN IM DECREASED GLUCOSE; Start 11/04/18 at 09:00 Glucose (Glutose) 15 gm Q15M PRN BUCCAL DECREASED GLUCOSE; Start 11/04/18 at 09:00 Miscellaneous Information Patients own medicat... BID@10,16 XX Last administered on 11/20/18at 16:16; Admin Dose 1 EA; Start 11/04/18 at 16:00 Povidone Iodine (Povidone-Iodine) 1 applic BID TOP Last administered on 11/21/18 21:00; Admin Dose 1 APPLIC; Start 11/05/18 at 21:00 Sodium Hypochlorite (Dakins Diluted (40)) 1 applic BID TP Last administered on 11/22/18 01:50; Admin Dose 1 APPLIC; Start 11/07/18 at 09:00 Hydralazine HCl (Apresoline) 10 mg Q4H PRN IV sbp >160 Last administered on 11/20/18 14:44; Admin Dose 10 MG; Start 11/08/18 at 09:00 Famotidine (Pepcid) 20 mg DAILY NGT Last administered on 11/21/18 08:55; Admin Dose 20 MG; Start 11/11/18 at 09:30 Atropine Sulfate (Atropine) 0.5 mg PRN PRN IV SYMPTOMATIC BRADYCARDIA; Start 11/11/18 at 23:00 Heparin Sodium (Porcine) (Heparin (5000 Units/1ml)) 5,000 unit BID SC Last administered on 11/21/18 22:07; Admin Dose 5,000 UNIT; Start 11/14/18 at 21:00 Bisacodyl (Dulcolax Supp) 10 mg DAILY PRN [place] CONSTIPATION Last administered on 11/14/18 16:43; Admin Dose 10 MG; Start 11/14/18 at 16:30 Dextrose (D50w Syringe) 25 ml Q15M PRN IV .DECREASED GLUCOSE; Start 11/15/18 at 06:30 Dextrose (D50w Syringe) 50 ml Q15M PRN IV .DECREASED GLUCOSE; Start 11/15/18 at 06:30 Meropenem/Sodium Chloride 50 ml @ 100 mls/hr Q12 IVPB Last administered on 11/22/18 10:28; Admin Dose 100 MLS/HR; Start 11/15/18 at 14:30 IV Flush (NS 10 ml) 10 ml PRN PRN IV FLUSH LINE; Start 11/15/18 at 15:30 Fluconazole (Diflucan) 100 mg DAILY PO Last administered on 11/21/18 08:52; Admin Dose 100 MG; Start 11/16/18 at 14:00 Polyethylene Glycol (Miralax) 17 gm DAILY PRN NGT constipation; Start 11/17/18 at 09:00 Senna/Docusate Sodium (Senokot-S) 1 tab BID PRN NGT constipation; Start 11/17/18 at 09:00 Gabapentin (Neurontin Liquid) 300 mg BID PO Last administered on 11/21/18 21:00; Admin Dose 300 MG; Start 11/18/18 at 21:00 Hydralazine HCl (Apresoline) 100 mg TID PO Last administered on 11/21/18 21:57; Admin Dose 100 MG; Start 11/18/18 at 21:00 Levofloxacin (Levaquin) 250 mg DAILY@06 PO Last administered on 11/22/18 07:16; Admin Dose 250 MG; Start 11/19/18 at 06:00 Diagnostic Test (Pha) (Accu-Chek) 1 ea 02 XX ; Start 11/20/18 at 02:00 Insulin Aspart (Novolog Insulin Pen) NOVOLOG *MODERATE* ALGORI... Q4 SC Last administered on 11/21/18 22:33; Admin Dose 2 UNIT; Start 11/19/18 at 09:00 Labetalol HCl (Labetalol) 10 mg Q4H PRN IV sbp >160 Last administered on 11/19/18 19:13; Admin Dose 10 MG; Start 11/19/18 at 10:00 Ascorbic Acid (Vitamin C) 500 mg DAILY PO Last administered on 11/21/18 08:53; Admin Dose 500 MG; Start 11/20/18 at 09:00 Zinc Sulfate (Zinc Sulfate) 220 mg DAILY PO Last administered on 11/21/18 08:56; Admin Dose 220 MG; Start 11/20/18 at 09:00 Atorvastatin Calcium (Lipitor) 80 mg QHS PO Last administered on 11/21/18 21:57; Admin Dose 80 MG; Start 11/19/18 at 21:00 Amlodipine Besylate (Norvasc) 5 mg BID PO Last administered on 11/21/18 21:57; Admin Dose 5 MG; Start 11/20/18 at 21:00 Aspirin (Aspirin) 81 mg DAILY GTB Last administered on 11/21/18 08:53; Admin Dose 81 MG; Start 11/21/18 at 09:00 Furosemide (Lasix) 40 mg DAILY PO Last administered on 11/21/18 08:55; Admin Dose 40 MG; Start 11/21/18 at 09:00 Lisinopril (Zestril) 5 mg DAILY PO Last administered on 11/21/18at 08:55; Admin Dose 5 MG; Start 11/21/18 at 09:00 Insulin Glargine (Lantus) 25 units DAILY@0800 SC ; Start 11/22/18 at 08:00 Dextrose/Sodium Chloride 1,000 ml @ 75 mls/hr [id number] IV Last administered on 11/22/18at 08:37; Admin Dose 75 MLS/HR; Start 11/22/18 at 08:30 Quetiapine Fumarate (Seroquel) 25 mg BID PO ; Start 11/22/18 at 21:00 Lorazepam (Ativan) 0.5 mg Q6H PRN IV anxiety/agitation Last administered on 11/22at 11:14; Admin Dose 0.5 MG; Start 11/22/18 at 11:00 Clopidogrel Bisulfate (plaVIX) 75 mg DAILY PO ; Start 11/23/18 at 09:00 Haloperidol (Haldol) 5 mg Q12H PRN IM agitation; Start 11/22/18 at 14:30 Meds reviewed: Yes Allergies Coded Allergies: No Known Allergy (Unverified , 11/04/18) Allergies Reviewed: Yes Labs/Studies Labs Reviewed: Reviewed by anesthesiologist Result Diagram: 11/22/18 0555 11/22/18 0555 Laboratory Tests 11/22/18 05:55 test: N/A Studies: ECG, CXR, 2D Echo Pre-procedure Exam Last vitals Vital Signs Date Temp Pulse Resp B/P (MAP) Pulse Ox O2 O2 Flow FiO2 Time Delivery Rate 11/22/18 3.0 12:52 11/22/18 98.6 80 18 152/82 98 12:00 (105) 11/22/18 Nasal 09:30 Cannula 11/18/18 40 09:09 Airway: Adequate mouth opening, Adequate thyromental dist Mallampati: Mallampati II Teeth: Abnormal (full dentures) Lung: Normal Heart: Normal ASA Physical Status ASA physical status: 3 Emergency: None Planned Anesthetic General/MAC: Mask Planned Pain Management Parenteral pain med, Local by surgeon Pre-operative Attestations Prior to commencing anesthesia and surgery, the patient was re-evaluated, there was verification of: *The patient's identity *The results of appropriate recent lab work and preoperative vital signs *The above evaluation not changing prior to induction *Anesthetic plan, risk benefits, alternative and complications discussed with patient/family; questions answered; patient/family understands, accepts and wishes to proceed. KIT SANCHEZ MD Nov 22, 2018 14:47
[2018-11-22] MEDS ORDERED: FENTAnyl 50 MCG/ML VIAL ONE (16:11)
[2018-11-22] MEDS ORDERED: POLYMYXIN B 500000 UNIT INJ ONE (16:13)
[2018-11-22] MEDS ORDERED: BACITRACIN 50000 UNITS INJ ONE (16:14)
--- NOTE | 2018-11-22 16:19 | CONS ---
Assessment/Plan Assessment/Plan Hospital Course (Demo Recall) ID PROGRESS NOTE CURRENT ABX: DAY # => Levaquin + Merrem + Diflucan S/P Daptomycin + Ceftriaxone 11/22/18 0555 11/22/18 0555 24H INTERVAL SUMMARY * OFF FLOOR FOR FOOT DEBRIDEMENT UPON ROUNDS TODAY -- Afebrile * Extubated 11/18/18 * Recent TTE was unremarkable, Patient is a vasculopath with carotid, coronary, peripheral arterial disease * Per discussion w/Dr Ardon CT shares appearance of septic emboli * He is discussing possible GABBI with Dr. 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 MULTI DRUG RESISTANT ORGANISM Organism 2 STENOTROPHOMONAS MALTOPHILIA QUANTITY 4+ KLEB PNEUM KLEB PNEUM STENMAL M.I.C. RX M.I.C. RX M.I.C. RX --------- --- --------- --- --------- --- AMIKACIN 16 S CEFAZOLIN R CEFEPIME >=64 R CEFOTAXIME R CIPROFLOXACIN >=4 R GENTAMICIN >=16 R LEVOFLOXACIN I 0.5 S MEROPENEM 0.064 S TOBRAMYCIN >=16 R TRIMETHOPRIM/SULFAMETHOXAZOLE >=320 R <=20 S PIPERACILLIN/TAZOBACTAM 32 I DIAGNOSTIC IMAGING * 11/20/18 MRI BRAIN: IMPRESSION: Punctate acute infarct in the left posterior frontal lobe. Hypodense focus in the right thalamus on the comparison CT corresponds to an old lacunar infarct. Additional old infarcts in the bilateral frontal lobes and jennifer. Background parenchymal volume loss with chronic microvascular ischemic disease. Bilateral mastoid effusions. * 11/20/18 CAROTID US: Slightly increased velocity in the left proximal ICA, suspicious for a 50-69% stenosis. - validated velocity measurements with angiographic measurements, velocity criteria are extrapolated from diameter data as defined by the Society of Radiologists in Ultrasound Consensus Conference Radiology 2003; 229;340-346. This study does indirectly reference the measurement of the distal ICA diameter as the denominator for stenosis measurement. Normal antegrade flow in the vertebral arteries bilaterally. Mild to moderate calcific plaque bilaterally, left greater than right. * 11/19/18 CT BRAIN: CT of the brain yesterday revealed new 8 mm infarct in the left thalamus no acute intracranial hemorrhage. Please see full note in the chart * 11/08/18 CXR: Worsening diffuse bilateral reticular nodular infiltrates. PHYSICAL EXAMINATION == as per yesterday evaluation = off floor today during rounds GENERAL: VSS, NAD HEENT: AT, NC, NECK: Supple, CHEST: Rise symmetrical HEART: Pulse RRR ABDOMEN: Benign EXTREMITIES: Warm, dry == left foot DSG C/D/I SKIN: No rash, no diaphoresis ID ASSESSMENT 72 yo M admit with: 1. Left foot gangrene 2. Peripheral arterial disease * POD #-> S/P 11/08/18 Left femoral endarterectomy w/Left iliofemoral bypass, and Left femoral->posterior tibial bypass 3. Diffuse pulmonary infiltrates == DDx CHF (STG I diastolic HF) w/possible superimposed HCAP * Per discussion w/Dr Ardon CT shares appearance of septic emboli 4. Hypertension w/HTN heart disease 5. Diabetes w/complications of peripheral neuropathy, vasculopathy 6. History of left foot second toe amputation 7. Acute kidney injury due to "NAVID" contrast induced necropathy post angiogram 8. Acute encephalopathy w/CT & MRI findings of new CVA superimposed on old prior infarcts 9. Bilateral mastoiditis (-)MRSA Nares ABX ALLERGIES: KNDA INVASIVES: PIV CURRENT ABX: DAY # => Levaquin + Merrem + Diflucan s/p Daptomycin + Ceftriaxone ID RECOMMENDATIONS/PLAN: 1. Continue current ABX -- follow APC recommendations == OFF FLOOR FOR FOOT DEBRIDEMENT TODAY 2. Per discussion w/Dr Ardon CT THORAX shares appearance of septic emboli pulmonary * WE discussed possible GABBI with Dr. Cazares -- barriers would be patient now extubated, no bacteremia. * Dr. Cazares will repeat 2D ECHO (TTE) . Consultation Date/Type/Reason Admit Date/Time Nov 04, 2018 at 07:34 Initial Consult Date Requesting Provider: KARL WOOD MD Date/Time of Note DATE: 11/22/18 TIME: 16:17 Exam/Review of Systems Exam Vitals Vital Signs Date Temp Pulse Resp B/P (MAP) Pulse Ox O2 O2 Flow FiO2 Time Delivery Rate 11/22/18 3.0 12:52 11/22/18 98.6 80 18 152/82 98 12:00 (105) 11/22/18 Nasal 09:30 Cannula 11/18/18 40 09:09 Intake and Output 11/21/18 11/21/18 11/22/18 1515:00 23:00 07:00 IntakeIntake Total 50 ml 380 ml OutputOutput Total 2400 ml 1100 ml 1600 ml BalanceBalance -2350 ml -1100 ml -1220 ml Results Result Diagram: 11/22/18 0555 11/22/18 0555 Results 24hrs Laboratory Tests Test 11/21/18 17:40 11/21/18 21:54 11/22/18 01:46 11/22/18 05:44 Bedside Glucose 294 H 173 134 110 Test 11/22/18 05:55 11/22/18 08:41 11/22/18 09:28 11/22/18 12:36 White Blood Count 16.3 H Red Blood Count 4.11 L Hemoglobin 12.2 L Hematocrit 37.2 L Mean Corpuscular Volume 90.5 Mean Corpuscular 29.7 Hemoglobin Mean Corpuscular 32.8 Hemoglobin Concent Red Cell Distribution 13.5 Width Platelet Count 414 Mean Platelet Volume 10.7 H Immature Granulocytes % 0.600 H Neutrophils % 72.8 Lymphocytes % 10.1 L Monocytes % 12.2 H Eosinophils % 4.1 Basophils % 0.2 Nucleated Red Blood 0.0 Cells % Immature Granulocytes # 0.090 H Neutrophils # 11.9 H Lymphocytes # 1.6 Monocytes # 2.0 H Eosinophils # 0.7 H Basophils # 0.0 Nucleated Red Blood 0.0 Cells # Sodium Level 140 Potassium Level 4.0 Chloride Level 104 Carbon Dioxide Level 27 Anion Gap 9 Blood Urea Nitrogen 37 H Creatinine 1.12 Est Glomerular Filtrat Rate mL/min Glucose Level 91 # Calcium Level 8.7 Phosphorus Level 3.1 Magnesium Level 2.0 Bedside Glucose 82 113 123 Medications Medication Current Medications Ergocalciferol (Drisdol) 50,000 unit Sa PO Last administered on 11/09/18at 09:28; Admin Dose 50,000 UNIT; Start 11/09/18 at 09:00 Miscellaneous Medication (Bystolic) 20 mg DAILY PO Last administered on 11/11/18at 09:03; Admin Dose 20 MG; Start 11/04/18 at 09:00; Status Hold Clonidine (Catapres) 0.1 mg Q6H PRN PO SBP>160 Last administered on 11/19/18at 03:04; Admin Dose 0.1 MG; Start 11/04/18 at 09:00 IV Flush (NS 3 ml) 3 ml PER PROTOCOL IV ; Start 11/04/18 at 09:00 Ondansetron HCl (Zofran Inj) 4 mg Q6H PRN IV NAUSEA/VOMITING; Start 11/04/18 at 09:00 Acetaminophen (Tylenol Tab) 650 mg Q6H PRN PO .PAIN 1-3 OR TEMP; Start 11/04/18 at 09:00 Miscellaneous Information 1 ea NOTE XX ; Start 11/04/18 at 09:00 Glucose (Glutose) 15 gm Q15M PRN PO DECREASED GLUCOSE; Start 11/04/18 at 09:00 Glucose (Glutose) 22.5 gm Q15M PRN PO DECREASED GLUCOSE; Start 11/04/18 at 09:00 Dextrose (D50w Syringe) 25 ml Q15M PRN IV DECREASED GLUCOSE; Start 11/04/18 at 09:00 Dextrose (D50w Syringe) 50 ml Q15M PRN IV DECREASED GLUCOSE; Start 11/04/18 at 09:00 Glucagon (Glucagen) 1 mg Q15M PRN IM DECREASED GLUCOSE; Start 11/04/18 at 09:00 Glucose (Glutose) 15 gm Q15M PRN BUCCAL DECREASED GLUCOSE; Start 11/04/18 at 09:00 Miscellaneous Information Patients own medicat... BID@10,16 XX Last administered on 11/20/18at 16:16; Admin Dose 1 EA; Start 11/04/18 at 16:00 Povidone Iodine (Povidone-Iodine) 1 applic BID TOP Last administered on 11/21/18 21:00; Admin Dose 1 APPLIC; Start 11/05/18 at 21:00 Sodium Hypochlorite (Dakins Diluted ()) 1 applic BID TP Last administered on 11/22/18 01:50; Admin Dose 1 APPLIC; Start 11/07/18 at 09:00 Hydralazine HCl (Apresoline) 10 mg Q4H PRN IV sbp >160 Last administered on 11/20/18 14:44; Admin Dose 10 MG; Start 11/08/18 at 09:00 Famotidine (Pepcid) 20 mg DAILY NGT Last administered on 11/21/18 08:55; Admin Dose 20 MG; Start 11/11/18 at 09:30 Atropine Sulfate (Atropine) 0.5 mg PRN PRN IV SYMPTOMATIC BRADYCARDIA; Start 11/11/18 at 23:00 Heparin Sodium (Porcine) (Heparin (5000 Units/1ml)) 5,000 unit BID SC Last administered on 11/21/18 22:07; Admin Dose 5,000 UNIT; Start 11/14/18 at 21:00 Bisacodyl (Dulcolax Supp) 10 mg DAILY PRN [place] CONSTIPATION Last administered on 11/14/18 16:43; Admin Dose 10 MG; Start 11/14/18 at 16:30 Dextrose (D50w Syringe) 25 ml Q15M PRN IV .DECREASED GLUCOSE; Start 11/15/18 at 06:30 Dextrose (D50w Syringe) 50 ml Q15M PRN IV .DECREASED GLUCOSE; Start 11/15/18 at 06:30 Meropenem/Sodium Chloride 50 ml @ 100 mls/hr Q12 IVPB Last administered on 11/22/18 10:28; Admin Dose 100 MLS/HR; Start 11/15/18 at 14:30 IV Flush (NS 10 ml) 10 ml PRN PRN IV FLUSH LINE; Start 11/15/18 at 15:30 Fluconazole (Diflucan) 100 mg DAILY PO Last administered on 11/21/18 08:52; Admin Dose 100 MG; Start 11/16/18 at 14:00 Polyethylene Glycol (Miralax) 17 gm DAILY PRN NGT constipation; Start 11/17/18 at 09:00 Senna/Docusate Sodium (Senokot-S) 1 tab BID PRN NGT constipation; Start 11/17/18 at 09:00 Gabapentin (Neurontin Liquid) 300 mg BID PO Last administered on 11/21/18 21:00; Admin Dose 300 MG; Start 11/18/18 at 21:00 Hydralazine HCl (Apresoline) 100 mg TID PO Last administered on 11/21/18 21:57; Admin Dose 100 MG; Start 11/18/18 at 21:00 Levofloxacin (Levaquin) 250 mg DAILY@06 PO Last administered on 11/22/18 07:16; Admin Dose 250 MG; Start 11/19/18 at 06:00 Diagnostic Test (Pha) (Accu-Chek) 1 ea 02 XX ; Start 11/20/18 at 02:00 Insulin Aspart (Novolog Insulin Pen) NOVOLOG *MODERATE* ALGORI... Q4 SC Last administered on 11/21/18 22:33; Admin Dose 2 UNIT; Start 11/19/18 at 09:00 Labetalol HCl (Labetalol) 10 mg Q4H PRN IV sbp >160 Last administered on 11/19/18 19:13; Admin Dose 10 MG; Start 11/19/18 at 10:00 Ascorbic Acid (Vitamin C) 500 mg DAILY PO Last administered on 11/21/18 08:53; Admin Dose 500 MG; Start 11/20/18 at 09:00 Zinc Sulfate (Zinc Sulfate) 220 mg DAILY PO Last administered on 11/21/18 08:56; Admin Dose 220 MG; Start 11/20/18 at 09:00 Atorvastatin Calcium (Lipitor) 80 mg QHS PO Last administered on 11/21/18 21:57; Admin Dose 80 MG; Start 11/19/18 at 21:00 Amlodipine Besylate (Norvasc) 5 mg BID PO Last administered on 11/21/18 21:57; Admin Dose 5 MG; Start 11/20/18 at 21:00 Aspirin (Aspirin) 81 mg DAILY GTB Last administered on 11/21/18 08:53; Admin Dose 81 MG; Start 11/21/18 at 09:00 Furosemide (Lasix) 40 mg DAILY PO Last administered on 11/21/18 08:55; Admin Dose 40 MG; Start 11/21/18 at 09:00 Lisinopril (Zestril) 5 mg DAILY PO Last administered on 11/21/18at 08:55; Admin Dose 5 MG; Start 11/21/18 at 09:00 Insulin Glargine (Lantus) 25 units DAILY@0800 SC ; Start 11/22/18 at 08:00 Dextrose/Sodium Chloride 1,000 ml @ 75 mls/hr [id number] IV Last administered on 11/22/18at 08:37; Admin Dose 75 MLS/HR; Start 11/22/18 at 08:30 Quetiapine Fumarate (Seroquel) 25 mg BID PO ; Start 11/22/18 at 21:00 Lorazepam (Ativan) 0.5 mg Q6H PRN IV anxiety/agitation Last administered on 11/22/18at 11:14; Admin Dose 0.5 MG; Start 11/22/18 at 11:00 Clopidogrel Bisulfate (plaVIX) 75 mg DAILY PO ; Start 11/23/18 at 09:00 Haloperidol (Haldol) 5 mg Q12H PRN IM agitation; Start 11/22/18 at 14:30 NESS MUNOZ NP Nov 22, 2018 16:19
[2018-11-22] MEDS ORDERED: LIDOCAINE 1% (MPF) 30 ML INJ ONE (16:45)
[2018-11-22] MEDS ORDERED: DIPHENHYDRAMINE 50 MG INJ IV PRN (17:30)
[2018-11-22] MEDS ORDERED: PROCHLORPERAZINE 10 MG INJ IV PRN (17:30)
[2018-11-22] MEDS ORDERED: HYDROmorphONE 1 MG/5 ML IV SYRINGE IV PRN ×2 (17:30)
[2018-11-22] MEDS ORDERED: FENTAnyl 50 MCG/ML VIAL IV PRN (17:30)
[2018-11-22] MEDS ORDERED: MEPERIDINE 25 MG INJ IV PRN (17:30)
[2018-11-22] MEDS ORDERED: ONDANSETRON 4 MG INJ IV PRN (17:30)
--- NOTE | 2018-11-22 17:33 | PAC ---
Date/Time of Note Date/Time of Note DATE: 11/22/18 TIME: 17:31 Post-Anesthesia Notes Post-Anesthesia Note Last documented vital signs Vital Signs Date Temp Pulse Resp B/P (MAP) Pulse Ox O2 O2 Flow FiO2 Time Delivery Rate 11/22/18 3.0 12:52 11/22/18 98.6 80 18 152/82 98 12:00 (105) 11/22/18 Nasal 09:30 Cannula 11/18/18 40 09:09 Activity: WNL Respiratory function: WNL Cardiovascular function: WNL Mental status: Baseline Pain reasonably controlled: Yes Hydration appropriate: Yes Nausea/Vomiting absent: Yes Comments BP: 120/69 HR: 82 RR: 15 T: 98 Sao2: 100% KIT SANCHEZ MD Nov 22, 2018 17:33
--- NOTE | 2018-11-22 17:33 | SIPON ---
Date/Time of Note Date/Time of Note DATE: 11/22/18 TIME: 17:33 Operative Report Preoperative Diagnosis Left foot gangrene Left foot diabetic ulcer PAD - s/p bypass DM2 insulin dependent with peripheral neuropathy Postoperative Diagnosis Left foot gangrene Left foot diabetic ulcer PAD - s/p bypass DM2 insulin dependent with peripheral neuropathy Operation/Procedure Performed left 5th digit amputation excisional debridement of left foot Surgeon see signature line certified anesthesiologist assistant none Anesthesia: moderate sedation Estimated blood loss: 0 - 10 ml's Transfusion Required none Specimen left fifth digit biopsy left foot wound culture Grafts/Implants none Complications none IVELISSE BLACKWELL DPM Nov 22, 2018 17:33
--- NOTE | 2018-11-22 17:36 | OPR ---
Date/Time of Note Date/Time of Note DATE: 11/22/18 TIME: 17:36 Operative Report Preoperative Diagnosis Left foot gangrene Left foot diabetic ulcer PAD - s/p bypass DM2 insulin dependent with peripheral neuropathy Postoperative Diagnosis Left foot gangrene Left foot diabetic ulcer PAD - s/p bypass DM2 insulin dependent with peripheral neuropathy Operation/Procedure Performed left 5th digit amputation excisional debridement of left foot Surgeon see signature line [employer] Labor none Anesthesia Type: moderate sedation Estimated Blood Loss: 0 - 10 ml's Transfusion none Specimen left fifth digit biopsy left foot wound culture Grafts/Implants none Complications none Indications 72 y/o diabetic M patient with PAD and gangrene to the left foot had recently undergone a bypass of the left lower extremity with improved blood flow. Discussed with patient's son surgical intervention of left 5th digit amputation of gangrene site and debridement of left foot. He was amenable and provided consent for the patient. All of the questions and concerns were addressed. No promises or guarantees were given. Procedure Description Patient was brought into the OR and placed in the supine position. The left foot was scrubbed, prepped, and draped in the usual aseptic manner. A formal time out was conducted. Attention was directed to the left foot. Local anesthesia was administered to the surgical site. Using sharp debridement the left 5th digit was amputated at the level of the left 5th metatarsal phalangeal joint. The appearance of the left 5th metatarsal head was intact with no signs of lytic lesions or infection. No tunneling or purulent drainage was appreciated. Copious irrigation was used at the amputation site. Wound cultures were obtained of the left 5th digit amputation site and polymixin and bacitracin powder was applied to the amputation site. Using 4-0 prolene the skin edges were reapproximated to provide closure of the amputation site. Next using a scalpel excisional debridement of skin/subQ of the left hallux gangrenous site was done and revealed an ulceration of 1.0 x 0.8 x 0.2cm granular wound base, no probing to bone, no purulence no proximal streaking. Necrotic tissue was removed. 0.8cm2 of area was debrided. Xeroform and betadine gauze with dry sterile dressings were applied to the left foot. Patient was transferred to PACU with vital signs stable and neurovascular status intact. IVELISSE BLACKWELL DPM Nov 22, 2018 17:36
--- NOTE | 2018-11-22 17:57 | CONS ---
Assessment/Plan Assessment/Plan Assessment/Plan (Recall) 72 M c/ multiple comorbidities, who initially presented for management of a limb wound.. Then on 11/11, he had a cardiac arrest that necessitated brief resuscitation and ultimate intubation.. Extubated on 11/18, he is noted to have an appreciable,though mild, encephalopathy...for which neurology is consulted.. He could have a subtle cognitive impairment at baseline, which has seen some decompensation in the context of acute illness requiring psychotropic medication exposure, etc... MRI brain is notable for a tiny left frontal subcortical infarction...and chronic lacunes. Recent TTE was unremarkable CTA was without significant L ICA stenosis. P: Agree w/ plavix daily for secondary stroke prevention [place] as necessary Limit sedating medications where possible Other management and supportive care per primary Will follow clinically Consultation Date/Type/Reason Admit Date/Time Nov 04, 2018 at 07:34 Type of Consult Neurology Reason for Consultation ams Requesting Provider: KARL WOOD MD Date/Time of Note DATE: 11/22/18 TIME: 17:56 24 HR Interval Summary Free Text/Dictation Continues acute care Exam/Review of Systems Exam Vitals Vital Signs Date Temp Pulse Resp B/P (MAP) Pulse Ox O2 O2 Flow FiO2 Time Delivery Rate 11/22/18 98.0 17:31 11/22/18 3.0 12:52 11/22/18 80 18 152/82 98 12:00 (105) 11/22/18 Nasal 09:30 Cannula 11/18/18 40 09:09 Intake and Output 11/21/18 11/21/18 11/22/18 1515:00 23:00 07:00 IntakeIntake Total 50 ml 380 ml OutputOutput Total 2400 ml 1100 ml 1600 ml BalanceBalance -2350 ml -1100 ml -1220 ml Results Result Diagram: 11/22/18 0555 11/22/18 0555 Results 24hrs Laboratory Tests Test 11/21/18 21:54 11/22/18 01:46 11/22/18 05:44 11/22/18 05:55 Bedside Glucose 173 134 110 White Blood Count 16.3 H Red Blood Count 4.11 L Hemoglobin 12.2 L Hematocrit 37.2 L Mean Corpuscular Volume 90.5 Mean Corpuscular 29.7 Hemoglobin Mean Corpuscular 32.8 Hemoglobin Concent Red Cell Distribution 13.5 Width Platelet Count 414 Mean Platelet Volume 10.7 H Immature Granulocytes % 0.600 H Neutrophils % 72.8 Lymphocytes % 10.1 L Monocytes % 12.2 H Eosinophils % 4.1 Basophils % 0.2 Nucleated Red Blood 0.0 Cells % Immature Granulocytes # 0.090 H Neutrophils # 11.9 H Lymphocytes # 1.6 Monocytes # 2.0 H Eosinophils # 0.7 H Basophils # 0.0 Nucleated Red Blood 0.0 Cells # Sodium Level 140 Potassium Level 4.0 Chloride Level 104 Carbon Dioxide Level 27 Anion Gap 9 Blood Urea Nitrogen 37 H Creatinine 1.12 Est Glomerular Filtrat Rate mL/min Glucose Level 91 # Calcium Level 8.7 Phosphorus Level 3.1 Magnesium Level 2.0 Test 11/22/18 08:41 11/22/18 09:28 11/22/18 12:36 11/22/18 17:28 Bedside Glucose 82 113 123 142 Medications Medication Current Medications Ergocalciferol (Drisdol) 50,000 unit Sa PO Last administered on 11/09/18at 09:28; Admin Dose 50,000 UNIT; Start 11/09/18 at 09:00 Miscellaneous Medication (Bystolic) 20 mg DAILY PO Last administered on 11/11/18 09:03; Admin Dose 20 MG; Start 11/04/18 at 09:00; Status Hold Clonidine (Catapres) 0.1 mg Q6H PRN PO SBP>160 Last administered on 11/19/18at 03:04; Admin Dose 0.1 MG; Start 11/04/18 at 09:00 IV Flush (NS 3 ml) 3 ml PER PROTOCOL IV ; Start 11/04/18 at 09:00 Ondansetron HCl (Zofran Inj) 4 mg Q6H PRN IV NAUSEA/VOMITING; Start 11/04/18 at 09:00 Acetaminophen (Tylenol Tab) 650 mg Q6H PRN PO .PAIN 1-3 OR TEMP; Start 11/04/18 at 09:00 Miscellaneous Information 1 ea NOTE XX ; Start 11/04/18 at 09:00 Glucose (Glutose) 15 gm Q15M PRN PO DECREASED GLUCOSE; Start 11/04/18 at 09:00 Glucose (Glutose) 22.5 gm Q15M PRN PO DECREASED GLUCOSE; Start 11/04/18 at 09:0 0 Dextrose (D50w Syringe) 25 ml Q15M PRN IV DECREASED GLUCOSE; Start 11/04/18 at 09:00 Dextrose (D50w Syringe) 50 ml Q15M PRN IV DECREASED GLUCOSE; Start 11/04/18 at 09:00 Glucagon (Glucagen) 1 mg Q15M PRN IM DECREASED GLUCOSE; Start 11/04/18 at 09:00 Glucose (Glutose) 15 gm Q15M PRN BUCCAL DECREASED GLUCOSE; Start 11/04/18 at 09:00 Miscellaneous Information Patients own medicat... BID@10,16 XX Last administered on 11/20/18 16:16; Admin Dose 1 EA; Start 11/04/18 at 16:00 Povidone Iodine (Povidone-Iodine) 1 applic BID TOP Last administered on 11/21/18 21:00; Admin Dose 1 APPLIC; Start 11/05/18 at 21:00 Sodium Hypochlorite (Dakins Diluted (40)) 1 applic BID TP Last administered on 11/22/18 01:50; Admin Dose 1 APPLIC; Start 11/07/18 at 09:00 Hydralazine HCl (Apresoline) 10 mg Q4H PRN IV sbp >160 Last administered on 11/20/18 14:44; Admin Dose 10 MG; Start 11/08/18 at 09:00 Famotidine (Pepcid) 20 mg DAILY NGT Last administered on 11/21/18 08:55; Admin Dose 20 MG; Start 11/11/18 at 09:30 Atropine Sulfate (Atropine) 0.5 mg PRN PRN IV SYMPTOMATIC BRADYCARDIA; Start 11/11/18 at 23:00 Heparin Sodium (Porcine) (Heparin (5000 Units/1ml)) 5,000 unit BID SC Last administered on 11/21/18 22:07; Admin Dose 5,000 UNIT; Start 11/14/18 at 21:00 Bisacodyl (Dulcolax Supp) 10 mg DAILY PRN [place] CONSTIPATION Last administered on 11/14/18 16:43; Admin Dose 10 MG; Start 11/14/18 at 16:30 Dextrose (D50w Syringe) 25 ml Q15M PRN IV .DECREASED GLUCOSE; Start 11/15/18 at 06:30 Dextrose (D50w Syringe) 50 ml Q15M PRN IV .DECREASED GLUCOSE; Start 11/15/18 at 06:30 Meropenem/Sodium Chloride 50 ml @ 100 mls/hr Q12 IVPB Last administered on 11/22/18 10:28; Admin Dose 100 MLS/HR; Start 11/15/18 at 14:30 IV Flush (NS 10 ml) 10 ml PRN PRN IV FLUSH LINE; Start 11/15/18 at 15:30 Fluconazole (Diflucan) 100 mg DAILY PO Last administered on 11/21/18 08:52; Admin Dose 100 MG; Start 11/16/18 at 14:00 Polyethylene Glycol (Miralax) 17 gm DAILY PRN NGT constipation; Start 11/17/18 at 09:00 Senna/Docusate Sodium (Senokot-S) 1 tab BID PRN NGT constipation; Start 11/17/18 at 09:00 Gabapentin (Neurontin Liquid) 300 mg BID PO Last administered on 11/21/18 21:00; Admin Dose 300 MG; Start 11/18/18 at 21:00 Hydralazine HCl (Apresoline) 100 mg TID PO Last administered on 11/21/18 21:57; Admin Dose 100 MG; Start 11/18/18 at 21:00 Levofloxacin (Levaquin) 250 mg DAILY@06 PO Last administered on 11/22/18 07:16; Admin Dose 250 MG; Start 11/19/18 at 06:00 Diagnostic Test (Pha) (Accu-Chek) 1 ea 02 XX ; Start 11/20/18 at 02:00 Insulin Aspart (Novolog Insulin Pen) NOVOLOG *MODERATE* ALGORI... Q4 SC Last administered on 11/21/18 22:33; Admin Dose 2 UNIT; Start 11/19/18 at 09:00 Labetalol HCl (Labetalol) 10 mg Q4H PRN IV sbp >160 Last administered on 11/19/18 19:13; Admin Dose 10 MG; Start 11/19/18 at 10:00 Ascorbic Acid (Vitamin C) 500 mg DAILY PO Last administered on 11/21/18 08:53; Admin Dose 500 MG; Start 11/20/18 at 09:00 Zinc Sulfate (Zinc Sulfate) 220 mg DAILY PO Last administered on 11/21/18 08:56; Admin Dose 220 MG; Start 11/20/18 at 09:00 Atorvastatin Calcium (Lipitor) 80 mg QHS PO Last administered on 11/21/18 21:57; Admin Dose 80 MG; Start 11/19/18 at 21:00 Amlodipine Besylate (Norvasc) 5 mg BID PO Last administered on 11/21/18 21:57; Admin Dose 5 MG; Start 11/20/18 at 21:00 Aspirin (Aspirin) 81 mg DAILY GTB Last administered on 11/21/18 08:53; Admin Dose 81 MG; Start 11/21/18 at 09:00 Furosemide (Lasix) 40 mg DAILY PO Last administered on 11/21/18 08:55; Admin Dose 40 MG; Start 11/21/18 at 09:00 Lisinopril (Zestril) 5 mg DAILY PO Last administered on 11/21/18at 08:55; Admin Dose 5 MG; Start 11/21/18 at 09:00 Insulin Glargine (Lantus) 25 units DAILY@0800 SC ; Start 11/22/18 at 08:00 Dextrose/Sodium Chloride 1,000 ml @ 75 mls/hr [id number] IV Last administered on 11/22/18at 08:37; Admin Dose 75 MLS/HR; Start 11/22/18 at 08:30 Quetiapine Fumarate (Seroquel) 25 mg BID PO ; Start 11/22/18 at 21:00 Lorazepam (Ativan) 0.5 mg Q6H PRN IV anxiety/agitation Last administered on 11/22/18at 11:14; Admin Dose 0.5 MG; Start 11/22/18 at 11:00 Clopidogrel Bisulfate (plaVIX) 75 mg DAILY PO ; Start 11/23/18 at 09:00 Haloperidol (Haldol) 5 mg Q12H PRN IM agitation; Start 11/22/18 at 14:30 Hydromorphone HCl (Dilaudid) 0.2 mg PACU PRN IV MILD PAIN 1-3; Start 11/22/18 at 17:30; Stop 11/22/18 at 21:30 Hydromorphone HCl (Dilaudid) 0.4 mg PACU PRN IV MOD PAIN 4-6; Start 11/22/18 at 17:30; Stop 11/22/18 at 21:30 Fentanyl (Sublimaze) 25 mcg PACU ORDER PRN IV MILD PAIN 1-3; Start 11/22/18 at 17:30; Stop 11/22/18 at 21:30 Ondansetron HCl (Zofran Inj) 4 mg PACU ORDER PRN IV NAUSEA/VOMITING; Start 11/22/18 at 17:30; Stop 11/22/18 at 21:30 Prochlorperazine (Compazine Inj) 5 mg PACU ORDER PRN IV NAUSEA/VOMITING; Start 11/22/18 at 17:30; Stop 11/22/18 at 21:30 Meperidine HCl (Demerol) 25 mg PACU ORDER PRN IV .RIGORS; Start 11/22/18 at 17:30; Stop 11/22/18 at 21:30 Diphenhydramine HCl (Benadryl) 12.5 mg PACU ORDER PRN IV .PRURITUS; Start 11/22/18 at 17:30; Stop 11/22/18 at 21:30 ALBAN WOLF Nov 22, 2018 17:57
[2018-11-22] MEDS: QUETIAPINE 25 MG TAB PO SCH (21:00)
[2018-11-22] MEDS: ATORVASTATIN 80 MG TAB PO SCH (21:00)
[2018-11-23] VITALS (7 sets, daily range): BP systolic 94–142; BP diastolic 49–71; PULSE 77–88; RESP 17–20
[2018-11-23] MEDS ORDERED: HALOPERIDOL 5 MG INJ IM ONE (00:30)
[2018-11-23] MEDS ORDERED: LORAZEPAM 2 MG INJ IV ONE (00:30)
[2018-11-23] MEDS: INSULIN ASPART [NOVOLOG] 3 ML PEN SC SCH ×6 (01:00→20:54)
[2018-11-23] MEDS: ACCU-CHEK XX SCH (01:42)
[2018-11-23] MEDS: LEVOFLOXACIN 250 MG TAB PO SCH (05:56)
--- NOTE | 2018-11-23 07:42 | CONS ---
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 Patient continues to be monitored and remain in restraints due to c onfusion and combative behavior. No further podiatric procedures planned at this time. Offload heels with pillows and/or heel protectors. Consultation Date/Type/Reason Admit Date/Time Nov 04, 2018 at 07:34 Initial Consult Date Requesting Provider: KARL WOOD MD Date/Time of Note DATE: 11/23/18 TIME: 07:41 24 HR Interval Summary Free Text/Dictation Patient still appears confused. Patient had a sitter with him overnight and was noted to be combative at times with the dressings becoming disheveled. Exam/Review of Systems Exam Vitals Vital Signs Date Temp Pulse Resp B/P (MAP) Pulse Ox O2 O2 Flow FiO2 Time Delivery Rate 11/23/18 97.6 77 20 129/69 100 04:27 (89) 11/23/18 3.0 03:57 11/23/18 Nasal 02:45 Cannula Intake and Output 11/22/18 11/22/18 11/23/18 1515:00 23:00 07:00 IntakeIntake Total 150 ml 575 ml OutputOutput Total 110 ml 1500 ml BalanceBalance 40 ml -925 ml Exam Left hallux ulceration 1.0 x 0.8 x 0.2cm granular wound base, no probing to bone, no purulence no proximal streaking. Left 5th digit amputation site without wound dehiscence, sutures in place, mild maceration noted Absent protective sensations Bypass incision site remains closed with skin gurpreet Left 2nd digit amputation site appreciated. No erythema noted. Foot warm to touch Results Result Diagram: 11/23/18 0601 11/23/18 0602 Results 24hrs Laboratory Tests Test 11/22/18 08:41 11/22/18 09:28 11/22/18 12:36 11/22/18 17:28 Bedside Glucose 82 113 123 142 Test 11/22/18 18:32 11/22/18 22:23 11/23/18 01:29 11/23/18 05:05 Bedside Glucose 145 105 129 164 Test 11/23/18 06:01 11/23/18 06:02 White Blood Count 12.9 #H Red Blood Count 3.96 L Hemoglobin 11.8 L Hematocrit 36.7 L Mean Corpuscular Volume 92.7 Mean Corpuscular 29.8 Hemoglobin Mean Corpuscular 32.2 Hemoglobin Concent Red Cell Distribution 13.2 Width Platelet Count 332 Mean Platelet Volume 11.0 H Immature Granulocytes % 0.800 H Neutrophils % 70.0 Lymphocytes % 12.4 L Monocytes % 12.3 H Eosinophils % 4.3 Basophils % 0.2 Nucleated Red Blood 0.0 Cells % Immature Granulocytes # 0.100 H Neutrophils # 9.0 H Lymphocytes # 1.6 Monocytes # 1.6 H Eosinophils # 0.6 H Basophils # 0.0 Nucleated Red Blood 0.0 Cells # Sodium Level 142 Potassium Level 4.5 Chloride Level 105 Carbon Dioxide Level 31 Anion Gap 6 Blood Urea Nitrogen 31 H Creatinine 0.91 Est Glomerular Filtrat Rate mL/min Glucose Level 162 Calcium Level 8.9 Phosphorus Level 3.6 Magnesium Level 2.2 Medications Medication Current Medications Ergocalciferol (Drisdol) 50,000 unit Sa PO Last administered on 11/09/18at 09:28; Admin Dose 50,000 UNIT; Start 11/09/18 at 09:00 Miscellaneous Medication (Bystolic) 20 mg DAILY PO Last administered on 11/11/18at 09:03; Admin Dose 20 MG; Start 11/04/18 at 09:00; Status Hold Clonidine (Catapres) 0.1 mg Q6H PRN PO SBP>160 Last administered on 11/19/18at 03:04; Admin Dose 0.1 MG; Start 11/04/18 at 09:00 IV Flush (NS 3 ml) 3 ml PER PROTOCOL IV ; Start 11/04/18 at 09:00 Ondansetron HCl (Zofran Inj) 4 mg Q6H PRN IV NAUSEA/VOMITING; Start 11/04/18 at 09:00 Acetaminophen (Tylenol Tab) 650 mg Q6H PRN PO .PAIN 1-3 OR TEMP; Start 11/04/18 at 09:00 Miscellaneous Information 1 ea NOTE XX ; Start 11/04/18 at 09:00 Glucose (Glutose) 15 gm Q15M PRN PO DECREASED GLUCOSE; Start 11/04/18 at 09:00 Glucose (Glutose) 22.5 gm Q15M PRN PO DECREASED GLUCOSE; Start 11/04/18 at 09:00 Dextrose (D50w Syringe) 25 ml Q15M PRN IV DECREASED GLUCOSE; Start 11/04/18 at 09:00 Dextrose (D50w Syringe) 50 ml Q15M PRN IV DECREASED GLUCOSE; Start 11/04/18 at 09:00 Glucagon (Glucagen) 1 mg Q15M PRN IM DECREASED GLUCOSE; Start 11/04/18 at 09:00 Glucose (Glutose) 15 gm Q15M PRN BUCCAL DECREASED GLUCOSE; Start 11/04/18 at 09:00 Miscellaneous Information Patients own medicat... BID@10,16 XX Last administered on 11/20/18 16:16; Admin Dose 1 EA; Start 11/04/18 at 16:00 Povidone Iodine (Povidone-Iodine) 1 applic BID TOP Last administered on 11/21/18 21:00; Admin Dose 1 APPLIC; Start 11/05/18 at 21:00 Sodium Hypochlorite (Dakins Diluted (40)) 1 applic BID TP Last administered on 11/22/18 01:50; Admin Dose 1 APPLIC; Start 11/07/18 at 09:00 Hydralazine HCl (Apresoline) 10 mg Q4H PRN IV sbp >160 Last administered on 11/20/18 14:44; Admin Dose 10 MG; Start 11/08/18 at 09:00 Famotidine (Pepcid) 20 mg DAILY NGT Last administered on 11/21/18 08:55; Admin Dose 20 MG; Start 11/11/18 at 09:30 Atropine Sulfate (Atropine) 0.5 mg PRN PRN IV SYMPTOMATIC BRADYCARDIA; Start 11/11/18 at 23:00 Heparin Sodium (Porcine) (Heparin (5000 Units/1ml)) 5,000 unit BID SC Last administered on 11/22/18 22:47; Admin Dose 5,000 UNIT; Start 11/14/18 at 21:00 Bisacodyl (Dulcolax Supp) 10 mg DAILY PRN [place] CONSTIPATION Last administered on 11/14/18 16:43; Admin Dose 10 MG; Start 11/14/18 at 16:30 Dextrose (D50w Syringe) 25 ml Q15M PRN IV .DECREASED GLUCOSE; Start 11/15/18 at 06:30 Dextrose (D50w Syringe) 50 ml Q15M PRN IV .DECREASED GLUCOSE; Start 11/15/18 at 06:30 Meropenem/Sodium Chloride 50 ml @ 100 mls/hr Q12 IVPB Last administered on 11/22/18at 22:13; Admin Dose 100 MLS/HR; Start 11/15/18 at 14:30 IV Flush (NS 10 ml) 10 ml PRN PRN IV FLUSH LINE; Start 11/15/18 at 15:30 Fluconazole (Diflucan) 100 mg DAILY PO Last administered on 11/21/18 08:52; Admin Dose 100 MG; Start 11/16/18 at 14:00 Polyethylene Glycol (Miralax) 17 gm DAILY PRN NGT constipation; Start 11/17/18 at 09:00 Senna/Docusate Sodium (Senokot-S) 1 tab BID PRN NGT constipation; Start 11/17/18 at 09:00 Gabapentin (Neurontin Liquid) 300 mg BID PO Last administered on 11/21/18 21:00; Admin Dose 300 MG; Start 11/18/18 at 21:00 Hydralazine HCl (Apresoline) 100 mg TID PO Last administered on 11/21/18 21:57; Admin Dose 100 MG; Start 11/18/18 at 21:00 Levofloxacin (Levaquin) 250 mg DAILY@06 PO Last administered on 11/22/18 07:16; Admin Dose 250 MG; Start 11/19/18 at 06:00 Diagnostic Test (Pha) (Accu-Chek) 1 ea 02 XX ; Start 11/20/18 at 02:00 Insulin Aspart (Novolog Insulin Pen) NOVOLOG *MODERATE* ALGORI... Q4 SC Last administered on 11/23/18 05:33; Admin Dose 2 UNIT; Start 11/19/18 at 09:00 Labetalol HCl (Labetalol) 10 mg Q4H PRN IV sbp >160 Last administered on 11/19/18 19:13; Admin Dose 10 MG; Start 11/19/18 at 10:00 Ascorbic Acid (Vitamin C) 500 mg DAILY PO Last administered on 11/21/18 08:53; Admin Dose 500 MG; Start 11/20/18 at 09:00 Zinc Sulfate (Zinc Sulfate) 220 mg DAILY PO Last administered on 11/21/18 08:56; Admin Dose 220 MG; Start 11/20/18 at 09:00 Atorvastatin Calcium (Lipitor) 80 mg QHS PO Last administered on 11/21/18 21:57; Admin Dose 80 MG; Start 11/19/18 at 21:00 Amlodipine Besylate (Norvasc) 5 mg BID PO Last administered on 11/21/18 21:57; Admin Dose 5 MG; Start 11/20/18 at 21:00 Aspirin (Aspirin) 81 mg DAILY GTB Last administered on 11/21/18 08:53; Admin Dose 81 MG; Start 11/21/18 at 09:00 Furosemide (Lasix) 40 mg DAILY PO Last administered on 11/21/18 08:55; Admin Dose 40 MG; Start 11/21/18 at 09:00 Lisinopril (Zestril) 5 mg DAILY PO Last administered on 11/21/18 08:55; Admin Dose 5 MG; Start 11/21/18 at 09:00 Insulin Glargine (Lantus) 25 units DAILY@0800 SC ; Start 11/22/18 at 08:00 Dextrose/Sodium Chloride 1,000 ml @ 75 mls/hr [id number] IV Last administered on 11/22/18 22:18; Admin Dose 75 MLS/HR; Start 11/22/18 at 08:30 Quetiapine Fumarate (Seroquel) 25 mg BID PO ; Start 11/22/18 at 21:00 Lorazepam (Ativan) 0.5 mg Q6H PRN IV anxiety/agitation Last administered on 11/22/18 19:32; Admin Dose 0.5 MG; Start 11/22/18 at 11:00 Clopidogrel Bisulfate (plaVIX) 75 mg DAILY PO ; Start 11/23/18 at 09:00 Haloperidol (Haldol) 5 mg Q12H PRN IM agitation Last administered on 11/22/18 19:44; Admin Dose 5 MG; Start 11/22/18 at 14:30 IVELISSE BLACKWELL DPCaleb Nov 23, 2018 07:42
[2018-11-23] MEDS: INSULIN GLARGINE [LANTus] (100 UNITS/ML) SYG SC SCH (08:00)
--- NOTE | 2018-11-23 08:39 | PN ---
DATE: 11/23/2018 SUBJECTIVE: The patient is stable. The patient had amputation of his left toe. Overnight, the isidro ent remains confused, on IV fluids. No other acute events noted. OBJECTIVE: VITAL SIGNS: Blood pressure is 129/69, respirations 20, pulse 77, temperature is 97.6. HEENT: Head is normocephalic. NECK: Supple. HEART: Regular rate. LUNGS: Show diminished breath sounds at the base. ABDOMEN: Soft, nontender to palpation without rebound or guarding. EXTREMITIES: Negative for clubbing, cyanosis, no edema. DERMATOLOGIC: No rashes. MUSCULOSKELETAL: Patient has dressing over his left foot, clean, dry, intact. NEUROLOGIC: No change in exam. MEDICATIONS: The patient's medications have been reviewed. LABORATORY DATA: Has been reviewed. IMAGING STUDIES: Have been reviewed. ASSESSMENT AND PLAN: 1. Nonoliguric acute kidney injury. Etiology is secondary to hemodynamics, tubular injury. Renal f unction stabilized. Continue current treatment plans, supportive care, renally dose all medication. 2. Volume overload. Etiology is secondary to acute injury, diastolic heart failure. The patient is clinically improving. Continue current diuretic regimen, monitor closely on current IV fluids, but discontinue IV hydration once the patient is able to tolerate p.o. 3. Anemia. Monitor hemoglobin and hematocrit levels. 4. Mineral bone disorder. Monitor calcium and phosphorus levels. 5. Respiratory failure, status post extubation, currently stable. Continue to monitor. 6. Arrhythmia. Continue to monitor. 7. Peripheral vascular disease with history of iliofemoral bypass. 8. Left toe gangrene, status post amputation. Continue to monitor and followup with podiatry. 9. Hypertension. Continue current blood pressure regimen. 10. Acute encephalopathy. Etiology is toxic metabolic. 11. Dyslipidemia. Continue statin therapy. 12. Status post cardiac arrest. Dictated By: JEAN CLAUDE LARIOS DO NR/NTS Conf#: [id number] DID#: [id number] CC: JAYLEEN BUNN MD; TOMASA SCOTT; FRANTZ SCHWAB MD;*EndCC*
[2018-11-23] MEDS: POVIDONE IODINE 10% 28.4 GM OINT TOP SCH ×3 (08:54→21:00)
[2018-11-23] MEDS: DAKINS 0.0125%(1/40) 473 ML SOLUTION TP SCH ×3 (08:54→20:37)
[2018-11-23] MEDS: MEROPENEM 500MG/50 ML (PMX) 50 ML IVPB SCH ×2 (08:55→20:49)
[2018-11-23] MEDS: GABAPENTIN (50 MG/ML PO SYG) PO SCH ×2 (09:00→20:40)
[2018-11-23] MEDS: ASCORBIC ACID 500 MG TAB PO SCH ×2 (09:00→17:09)
[2018-11-23] MEDS: FLUCONAZOLE 100 MG TAB PO SCH ×2 (09:00→17:10)
[2018-11-23] MEDS: ERGOCALCIFEROL 50,000 UNIT CAP PO SCH ×2 (09:00→17:10)
[2018-11-23] MEDS: ASPIRIN 81 MG TAB GTB SCH ×2 (09:00→17:09)
[2018-11-23] MEDS: LISINOPRIL 5 MG TAB PO SCH (09:00)
[2018-11-23] MEDS: QUETIAPINE 25 MG TAB PO SCH ×3 (09:00→20:35)
[2018-11-23] MEDS: FUROSEMIDE 40 MG TAB PO SCH ×2 (09:00→17:10)
[2018-11-23] MEDS: ZINC SULFATE 220 MG CAP PO SCH ×2 (09:00→17:09)
[2018-11-23] MEDS: AMLODIPINE 5 MG TAB PO SCH ×2 (09:00→20:34)
[2018-11-23] MEDS: CLOPIDOGREL 75 MG TAB PO SCH ×2 (09:00→17:09)
[2018-11-23] MEDS: FAMOTIDINE 20 MG TAB NGT SCH ×2 (09:00→17:09)
[2018-11-23] MEDS: HEPARIN 5,000 UNIT/1 ML VIAL SC SCH ×2 (09:02→20:55)
--- NOTE | 2018-11-23 09:45 | PSY ---
Date/Time of Note Date/Time of Note DATE: 11/23/18 TIME: 09:27 Psychiatric Subjective Eval Consent Pt consented to telemedicine: No Subjective Evaluation Patient location: inpatient Chief Complaint: states left 5th toe wound getting worse, black in color History of present illness Patient is a 72-year-old Kyrgyz-speaking male. Translation done by one-to-one staff. Patient is with a past medical history of type 2 diabetes, Dyslipidemia, peripheral arterial disease and hypertension, admitted with worsening left fifth toe ulcers. On a [id number] evaluation, patient is somewhat sedated cannot process information he was woken up with his disorganized and confused and unable to process information. From history it does not look like patient is delirious, he is in poor contact with reality and cannot process information. Past psychiatric history None Hospitalization: other Family History Problems Family History Problems: (1) Family history of cardiac disorder Relations: 33 FATHER; 32 MOTHER Medical history Problems Medical Problems: (1) Chest pain Status: Acute (2) Chronic kidney disease Status: Acute (3) Diabetic ulcer of right foot Status: Acute (4) Diabetic ulcer of toe of left foot Status: Acute (5) Diabetic ulcer of toe of left foot with necrosis of bone Status: Acute (6) Elevated C-reactive protein (CRP) Status: Acute (7) Elevated erythrocyte sedimentation rate Status: Acute (8) Encounter for wound re-check Status: Acute (9) Failure of outpatient treatment Status: Acute (10) Gangrene of toe of left foot Status: Acute (11) Hyperkalemia Status: Acute (12) Injury of foot Status: Acute (13) No infection or colonization with multidrug resistant organism Status: Acute (14) Normocytic anemia Status: Acute (15) Skin avulsion Status: Acute Allergies: Coded Allergies: No Known Allergy (Unverified , 11/04/18) Substance Abuse Substance use: other Substance abuse history: No Prior substance abuse treatmen: No Social History Marital status: other DPA/Conservatorship: No Psychiatric Objective Eval Review of Systems: Review of Systems: Not Applicable Mental Status Examination: Speech: Disorganized Orientation: x1 Attention Span: Distractible Laboratory Results Laboratory Tests Test 11/21/18 12:29 11/21/18 17:40 11/21/18 21:54 11/22/18 01:46 Bedside Glucose 176 mg/dL 294 mg/dL 173 mg/dL 134 mg/dL Test 11/22/18 05:44 11/22/18 05:55 11/22/18 08:41 11/22/18 09:28 Bedside Glucose 110 mg/dL 82 mg/dL 113 mg/dL White Blood Count 16.3 10^3/ul Red Blood Count 4.11 10^6/ul Hemoglobin 12.2 g/dl Hematocrit 37.2 % Mean Corpuscular 90.5 fl Volume Mean Corpuscular 29.7 pg Hemoglobin Mean Corpuscular 32.8 g/dl Hemoglobin Concent Red Cell 13.5 % Distribution Width Platelet Count 414 10^3/UL Mean Platelet Volume 10.7 fl Immature 0.600 % Granulocytes % Neutrophils % 72.8 % Lymphocytes % 10.1 % Monocytes % 12.2 % Eosinophils % 4.1 % Basophils % 0.2 % Nucleated Red Blood 0.0 /100WBC Cells % Immature 0.090 10^3/ul Granulocytes # Neutrophils # 11.9 10^3/ul Lymphocytes # 1.6 10^3/ul Monocytes # 2.0 10^3/ul Eosinophils # 0.7 10^3/ul Basophils # 0.0 10^3/ul Nucleated Red Blood 0.0 10^3/ul Cells # Sodium Level 140 mmol/L Potassium Level 4.0 mmol/L Chloride Level 104 mmol/L Carbon Dioxide Level 27 mmol/L Anion Gap 9 Blood Urea Nitrogen 37 mg/dl Creatinine 1.12 mg/dl Est Glomerular mL/min Filtrat Rate mL/min Glucose Level 91 mg/dl Calcium Level 8.7 mg/dl Phosphorus Level 3.1 mg/dl Magnesium Level 2.0 mg/dl Test 11/22/18 12:36 11/22/18 17:28 11/22/18 18:32 11/22/18 22:23 Bedside Glucose 123 mg/dL 142 mg/dL 145 mg/dL 105 mg/dL Test 11/23/18 01:29 11/23/18 05:05 11/23/18 06:01 11/23/18 06:02 Bedside Glucose 129 mg/dL 164 mg/dL White Blood Count 12.9 10^3/ul Red Blood Count 3.96 10^6/ul Hemoglobin 11.8 g/dl Hematocrit 36.7 % Mean Corpuscular 92.7 fl Volume Mean Corpuscular 29.8 pg Hemoglobin Mean Corpuscular 32.2 g/dl Hemoglobin Concent Red Cell 13.2 % Distribution Width Platelet Count 332 10^3/UL Mean Platelet Volume 11.0 fl Immature 0.800 % Granulocytes % Neutrophils % 70.0 % Lymphocytes % 12.4 % Monocytes % 12.3 % Eosinophils % 4.3 % Basophils % 0.2 % Nucleated Red Blood 0.0 /100WBC Cells % Immature 0.100 10^3/ul Granulocytes # Neutrophils # 9.0 10^3/ul Lymphocytes # 1.6 10^3/ul Monocytes # 1.6 10^3/ul Eosinophils # 0.6 10^3/ul Basophils # 0.0 10^3/ul Nucleated Red Blood 0.0 10^3/ul Cells # Sodium Level 142 mmol/L Potassium Level 4.5 mmol/L Chloride Level 105 mmol/L Carbon Dioxide Level 31 mmol/L Anion Gap 6 Blood Urea Nitrogen 31 mg/dl Creatinine 0.91 mg/dl Est Glomerular mL/min Filtrat Rate mL/min Glucose Level 162 mg/dl Calcium Level 8.9 mg/dl Phosphorus Level 3.6 mg/dl Magnesium Level 2.2 mg/dl Test 11/23/18 08:53 Bedside Glucose 158 mg/dL Assessment and Plan Assessment/Diagnosis Diagnosis Delirium due to medical condition Recommendation/Plan Medication Management Seroquel 25 mg twice daily, and Zyprexa 5 mg IM as needed is recommended if he refuses Seroquel Discharge Disposition: Other Legal Status: Voluntary (Does not meet criteria for 5150 hold) YASSINE HARDY NP Nov 23, 2018 09:43
--- NOTE | 2018-11-23 11:06 | CONS ---
Consult Date/Type/Reason Admit Date/Time Nov 04, 2018 at 07:34 Initial Consult Date 11/11/18 Type of Consult Pulmonary Requesting Provider: KARL WOOD MD Date/Time of Note DATE: 11/23/18 TIME: 11:05 Subjective Still confused with intermittent agitation. Objective Vital Signs Date Temp Pulse Resp B/P (MAP) Pulse Ox O2 O2 Flow FiO2 Time Delivery Rate 11/23/18 97.8 88 18 127/71 96 08:47 (89) 11/23/18 3.0 08:15 11/23/18 Nasal 02:45 Cannula Intake and Output 11/22/18 11/22/18 11/23/18 1515:00 23:00 07:00 IntakeIntake Total 150 ml 575 ml OutputOutput Total 110 ml 1500 ml BalanceBalance 40 ml -925 ml Exam NECK: Supple. No JVD or lymphadenopathy. CARDIAC: S1, S2, no added sounds or murmurs. CHEST: Diminished air entry bilaterally. ABDOMEN: Soft, nontender. No guarding or rebound. EXTREMITIES: No cyanosis, clubbing, 1+ edema. NEUROLOGIC: Generalized weakness. Vent Setting Ventilator Support Mode: CPAP, PS, SPONT Fraction of Inspired Oxygen pe: 40 Positive End Expiratory Pressu: 5.0 Results/Medications Result Diagram: 11/23/18 0601 11/23/18 0602 Results 24 hrs Laboratory Tests Test 11/22/18 12:36 11/22/18 17:28 11/22/18 18:32 11/22/18 22:23 Bedside Glucose 123 142 145 105 Test 11/23/18 01:29 11/23/18 05:05 11/23/18 06:01 11/23/18 06:02 Bedside Glucose 129 164 White Blood Count 12.9 #H Red Blood Count 3.96 L Hemoglobin 11.8 L Hematocrit 36.7 L Mean Corpuscular Volume 92.7 Mean Corpuscular 29.8 Hemoglobin Mean Corpuscular 32.2 Hemoglobin Concent Red Cell Distribution 13.2 Width Platelet Count 332 Mean Platelet Volume 11.0 H Immature Granulocytes % 0.800 H Neutrophils % 70.0 Lymphocytes % 12.4 L Monocytes % 12.3 H Eosinophils % 4.3 Basophils % 0.2 Nucleated Red Blood 0.0 Cells % Immature Granulocytes # 0.100 H Neutrophils # 9.0 H Lymphocytes # 1.6 Monocytes # 1.6 H Eosinophils # 0.6 H Basophils # 0.0 Nucleated Red Blood 0.0 Cells # Sodium Level 142 Potassium Level 4.5 Chloride Level 105 Carbon Dioxide Level 31 Anion Gap 6 Blood Urea Nitrogen 31 H Creatinine 0.91 Est Glomerular Filtrat Rate mL/min Glucose Level 162 Calcium Level 8.9 Phosphorus Level 3.6 Magnesium Level 2.2 Test 11/23/18 08:53 Bedside Glucose 158 Medications Current Medications Ergocalciferol (Drisdol) 50,000 unit Sa PO Last administered on 11/09/18at 09:28; Admin Dose 50,000 UNIT; Start 11/09/18 at 09:00 Miscellaneous Medication (Bystolic) 20 mg DAILY PO Last administered on 11/11/18at 09:03; Admin Dose 20 MG; Start 11/04/18 at 09:00; Status Hold Clonidine (Catapres) 0.1 mg Q6H PRN PO SBP>160 Last administered on 11/19/18at 03:04; Admin Dose 0.1 MG; Start 11/04/18 at 09:00 IV Flush (NS 3 ml) 3 ml PER PROTOCOL IV ; Start 11/04/18 at 09:00 Ondansetron HCl (Zofran Inj) 4 mg Q6H PRN IV NAUSEA/VOMITING; Start 11/04/18 at 09:00 Acetaminophen (Tylenol Tab) 650 mg Q6H PRN PO .PAIN 1-3 OR TEMP; Start 11/04/18 at 09:00 Miscellaneous Information 1 ea NOTE XX ; Start 11/04/18 at 09:00 Glucose (Glutose) 15 gm Q15M PRN PO DECREASED GLUCOSE; Start 11/04/18 at 09:00 Glucose (Glutose) 22.5 gm Q15M PRN PO DECREASED GLUCOSE; Start 11/04/18 at 09:00 Dextrose (D50w Syringe) 25 ml Q15M PRN IV DECREASED GLUCOSE; Start 11/04/18 at 09:00 Dextrose (D50w Syringe) 50 ml Q15M PRN IV DECREASED GLUCOSE; Start 11/04/18 at 09:00 Glucagon (Glucagen) 1 mg Q15M PRN IM DECREASED GLUCOSE; Start 11/04/18 at 09:00 Glucose (Glutose) 15 gm Q15M PRN BUCCAL DECREASED GLUCOSE; Start 11/04/18 at 09:00 Miscellaneous Information Patients own medicat... BID@10,16 XX Last administered on 11/20/18 16:16; Admin Dose 1 EA; Start 11/04/18 at 16:00 Povidone Iodine (Povidone-Iodine) 1 applic BID TOP Last administered on 11/21/18 21:00; Admin Dose 1 APPLIC; Start 11/05/18 at 21:00 Sodium Hypochlorite (Dakins Diluted ()) 1 applic BID TP Last administered on 11/22/18 01:50; Admin Dose 1 APPLIC; Start 11/07/18 at 09:00 Hydralazine HCl (Apresoline) 10 mg Q4H PRN IV sbp >160 Last administered on 11/20/18 14:44; Admin Dose 10 MG; Start 11/08/18 at 09:00 Famotidine (Pepcid) 20 mg DAILY NGT Last administered on 11/21/18 08:55; Admin Dose 20 MG; Start 11/11/18 at 09:30 Atropine Sulfate (Atropine) 0.5 mg PRN PRN IV SYMPTOMATIC BRADYCARDIA; Start 11/11/18 at 23:00 Heparin Sodium (Porcine) (Heparin (5000 Units/1ml)) 5,000 unit BID SC Last administered on 11/23/18 09:02; Admin Dose 5,000 UNIT; Start 11/14/18 at 21:00 Bisacodyl (Dulcolax Supp) 10 mg DAILY PRN MI CONSTIPATION Last administered on 11/14/18 16:43; Admin Dose 10 MG; Start 11/14/18 at 16:30 Dextrose (D50w Syringe) 25 ml Q15M PRN IV .DECREASED GLUCOSE; Start 11/15/18 at 06:30 Dextrose (D50w Syringe) 50 ml Q15M PRN IV .DECREASED GLUCOSE; Start 11/15/18 at 06:30 Meropenem/Sodium Chloride 50 ml @ 100 mls/hr Q12 IVPB Last administered on 08:55; Admin Dose 100 MLS/HR; Start 11/15/18 at 14:30 IV Flush (NS 10 ml) 10 ml PRN PRN IV FLUSH LINE; Start 11/15/18 at 15:30 Fluconazole (Diflucan) 100 mg DAILY PO Last administered on 11/21/18 08:52; Admin Dose 100 MG; Start 11/16/18 at 14:00 Polyethylene Glycol (Miralax) 17 gm DAILY PRN NGT constipation; Start 11/17/18 at 09:00 Senna/Docusate Sodium (Senokot-S) 1 tab BID PRN NGT constipation; Start 11/17/18 at 09:00 Gabapentin (Neurontin Liquid) 300 mg BID PO Last administered on 11/21/18 21:00; Admin Dose 300 MG; Start 11/18/18 at 21:00 Hydralazine HCl (Apresoline) 100 mg TID PO Last administered on 11/21/18 21:57; Admin Dose 100 MG; Start 11/18/18 at 21:00 Levofloxacin (Levaquin) 250 mg DAILY@06 PO Last administered on 11/22/18 07:16; Admin Dose 250 MG; Start 11/19/18 at 06:00 Diagnostic Test (Pha) (Accu-Chek) 1 ea 02 XX ; Start 11/20/18 at 02:00 Insulin Aspart (Novolog Insulin Pen) NOVOLOG *MODERATE* ALGORI... Q4 SC Last administered on 11/23/18 09:02; Admin Dose 2 UNIT; Start 11/19/18 at 09:00 Labetalol HCl (Labetalol) 10 mg Q4H PRN IV sbp >160 Last administered on 11/19/18 19:13; Admin Dose 10 MG; Start 11/19/18 at 10:00 Ascorbic Acid (Vitamin C) 500 mg DAILY PO Last administered on 11/21/18 08:53; Admin Dose 500 MG; Start 11/20/18 at 09:00 Zinc Sulfate (Zinc Sulfate) 220 mg DAILY PO Last administered on 11/21/18 08:56; Admin Dose 220 MG; Start 11/20/18 at 09:00 Atorvastatin Calcium (Lipitor) 80 mg QHS PO Last administered on 11/21/18 21:57; Admin Dose 80 MG; Start 11/19/18 at 21:00 Amlodipine Besylate (Norvasc) 5 mg BID PO Last administered on 11/21/18 21:57; Admin Dose 5 MG; Start 11/20/18 at 21:00 Aspirin (Aspirin) 81 mg DAILY GTB Last administered on 11/21/18 08:53; Admin Dose 81 MG; Start 11/21/18 at 09:00 Furosemide (Lasix) 40 mg DAILY PO Last administered on 11/21/18 08:55; Admin Dose 40 MG; Start 11/21/18 at 09:00 Lisinopril (Zestril) 5 mg DAILY PO Last administered on 11/21/18 08:55; Admin Dose 5 MG; Start 11/21/18 at 09:00 Insulin Glargine (Lantus) 25 units DAILY@0800 SC ; Start 11/22/18 at 08:00 Dextrose/Sodium Chloride 1,000 ml @ 75 mls/hr [id number] IV Last administered on 11/22/18 22:18; Admin Dose 75 MLS/HR; Start 11/22/18 at 08:30 Quetiapine Fumarate (Seroquel) 25 mg BID PO ; Start 11/22/18 at 21:00 Lorazepam (Ativan) 0.5 mg Q6H PRN IV anxiety/agitation Last administered on 11/22/18 19:32; Admin Dose 0.5 MG; Start 11/22/18 at 11:00 Clopidogrel Bisulfate (plaVIX) 75 mg DAILY PO ; Start 11/23/18 at 09:00 Haloperidol (Haldol) 5 mg Q12H PRN IM agitation Last administered on 11/22/18 19:44; Admin Dose 5 MG; Start 11/22/18 at 14:30 Assessment/Plan Hospital Course (Demo Recall) IMPRESSION 1. Acute hypoxemic respiratory failure likely following cardiopulmonary arrest. Chest x-ray appears to be consistent with ARDS. Clinical improvement. Now safely extubated. 2. Recent new onset bradycardia.now resolved. 3. History of peripheral vascular disease. 4. History of poorly controlled diabetes. 5. Anemia, no GIB 6. Leukocytosis likely secondary to steroids. 7. Encephalopathy with new CVA noted. PLAN: 1. Diuretics as tolerated. 2. Stable off mechanical ventilation. Strict aspiration precautions 3. Wound care and podiatry recommendations 4. May require nasogastric tube feeding given persistent encephalopathy and decreased p.o. intake 5. Appreciate psych evaluation Satnam lewis from pulmonary standpoint EDWIGE CARRANZA MD, [facility] Nov 23, 2018 11:06
[2018-11-23] MEDS: DEXTROSE 5%-0.45% NACL 1,000 ML IV SCH (12:02)
--- NOTE | 2018-11-23 12:33 | PN ---
Date/Time of Note Date/Time of Note DATE: 11/23/18 TIME: 12:32 Objective Vitals Vital Signs Date Temp Pulse Resp B/P (MAP) Pulse Ox O2 O2 Flow FiO2 Time Delivery Rate 11/23/18 97.8 88 18 127/71 96 08:47 (89) 11/23/18 3.0 08:15 11/23/18 Nasal 02:45 Cannula Intake and Output 11/22/18 11/22/18 11/23/18 1515:00 23:00 07:00 IntakeIntake Total 150 ml 575 ml OutputOutput Total 110 ml 1500 ml BalanceBalance 40 ml -925 ml Results Result Diagram: 11/23/1860011/23/18 06 Medications Medications Current Medications Ergocalciferol (Drisdol) 50,000 unit Sa PO Last administered on 11/09/18at 09:28; Admin Dose 50,000 UNIT; Start 11/09/18 at 09:00 Miscellaneous Medication (Bystolic) 20 mg DAILY PO Last administered on 11/11/18at 09:03; Admin Dose 20 MG; Start 11/04/18 at 09:00; Status Hold Clonidine (Catapres) 0.1 mg Q6H PRN PO SBP>160 Last administered on 11/19/18at 03:04; Admin Dose 0.1 MG; Start 11/04/18 at 09:00 IV Flush (NS 3 ml) 3 ml PER PROTOCOL IV ; Start 11/04/18 at 09:00 Ondansetron HCl (Zofran Inj) 4 mg Q6H PRN IV NAUSEA/VOMITING; Start 11/04/18 at 09:00 Acetaminophen (Tylenol Tab) 650 mg Q6H PRN PO .PAIN 1-3 OR TEMP; Start 11/04/18 at 09:00 Miscellaneous Information 1 ea NOTE XX ; Start 11/04/18 at 09:00 Glucose (Glutose) 15 gm Q15M PRN PO DECREASED GLUCOSE; Start 11/04/18 at 09:00 Glucose (Glutose) 22.5 gm Q15M PRN PO DECREASED GLUCOSE; Start 11/04/18 at 09:00 Dextrose (D50w Syringe) 25 ml Q15M PRN IV DECREASED GLUCOSE; Start 11/04/18 at 09:00 Dextrose (D50w Syringe) 50 ml Q15M PRN IV DECREASED GLUCOSE; Start 11/04/18 at 09:00 Glucagon (Glucagen) 1 mg Q15M PRN IM DECREASED GLUCOSE; Start 11/04/18 at 09:00 Glucose (Glutose) 15 gm Q15M PRN BUCCAL DECREASED GLUCOSE; Start 11/04/18 at 09:00 Miscellaneous Information Patients own medicat... BID@10,16 XX Last admin istered on 11/20/18at 16:16; Admin Dose 1 EA; Start 11/04/18 at 16:00 Povidone Iodine (Povidone-Iodine) 1 applic BID TOP Last administered on 11/21/18 21:00; Admin Dose 1 APPLIC; Start 11/05/18 at 21:00 Sodium Hypochlorite (Dakins Diluted ()) 1 applic BID TP Last administered on 11/22/18at 01:50; Admin Dose 1 APPLIC; Start 11/07/18 at 09:00 Hydralazine HCl (Apresoline) 10 mg Q4H PRN IV sbp >160 Last administered on 11/20/18at 14:44; Admin Dose 10 MG; Start 11/08/18 at 09:00 Famotidine (Pepcid) 20 mg DAILY NGT Last administered on 11/21/18 08:55; Admin Dose 20 MG; Start 11/11/18 at 09:30 Atropine Sulfate (Atropine) 0.5 mg PRN PRN IV SYMPTOMATIC BRADYCARDIA; Start 11/11/18 at 23:00 Heparin Sodium (Porcine) (Heparin (5000 Units/1ml)) 5,000 unit BID SC Last administered on 11/23/18at 09:02; Admin Dose 5,000 UNIT; Start 11/14/18 at 21:00 Bisacodyl (Dulcolax Supp) 10 mg DAILY PRN MI CONSTIPATION Last administered on 11/14/18at 16:43; Admin Dose 10 MG; Start 11/14/18 at 16:30 Dextrose (D50w Syringe) 25 ml Q15M PRN IV .DECREASED GLUCOSE; Start 11/15/18 at 06:30 Dextrose (D50w Syringe) 50 ml Q15M PRN IV .DECREASED GLUCOSE; Start 11/15/18 at 06:30 Meropenem/Sodium Chloride 50 ml @ 100 mls/hr Q12 IVPB Last administered on 11/23/18 08:55; Admin Dose 100 MLS/HR; Start 11/15/18 at 14:30 IV Flush (NS 10 ml) 10 ml PRN PRN IV FLUSH LINE; Start 11/15/18 at 15:30 Fluconazole (Diflucan) 100 mg DAILY PO Last administered on 11/21/18 08:52; Admin Dose 100 MG; Start 11/16/18 at 14:00 Polyethylene Glycol (Miralax) 17 gm DAILY PRN NGT constipation; Start 11/17/18 at 09:00 Senna/Docusate Sodium (Senokot-S) 1 tab BID PRN NGT constipation; Start 11/17/18 at 09:00 Gabapentin (Neurontin Liquid) 300 mg BID PO Last administered on 11/21/18 21:00; Admin Dose 300 MG; Start 11/18/18 at 21:00 Hydralazine HCl (Apresoline) 100 mg TID PO Last administered on 11/21/18 21:57; Admin Dose 100 MG; Start 11/18/18 at 21:00 Levofloxacin (Levaquin) 250 mg DAILY@06 PO Last administered on 11/22/18 07:16; Admin Dose 250 MG; Start 11/19/18 at 06:00 Diagnostic Test (Pha) (Accu-Chek) 1 ea 02 XX ; Start 11/20/18 at 02:00 Insulin Aspart (Novolog Insulin Pen) NOVOLOG *MODERATE* ALGORI... Q4 SC Last administered on 11/23/18 12:06; Admin Dose 2 UNIT; Start 11/19/18 at 09:00 Labetalol HCl (Labetalol) 10 mg Q4H PRN IV sbp >160 Last administered on 11/19/18 19:13; Admin Dose 10 MG; Start 11/19/18 at 10:00 Ascorbic Acid (Vitamin C) 500 mg DAILY PO Last administered on 11/21/18 08:53; Admin Dose 500 MG; Start 11/20/18 at 09:00 Zinc Sulfate (Zinc Sulfate) 220 mg DAILY PO Last administered on 11/21/18 08:56 ; Admin Dose 220 MG; Start 11/20/18 at 09:00 Atorvastatin Calcium (Lipitor) 80 mg QHS PO Last administered on 7/4/19at 21:57; Admin Dose 80 MG; Start 11/19/18 at 21:00 Amlodipine Besylate (Norvasc) 5 mg BID PO Last administered on 11/21/18at 21:57; Admin Dose 5 MG; Start 11/20/18 at 21:00 Aspirin (Aspirin) 81 mg DAILY GTB Last administered on 11/21/18 08:53; Admin Dose 81 MG; Start 11/21/18 at 09:00 Furosemide (Lasix) 40 mg DAILY PO Last administered on 11/21/18at 08:55; Admin Dose 40 MG; Start 11/21/18 at 09:00 Lisinopril (Zestril) 5 mg DAILY PO Last administered on 11/21/18 08:55; Admin Dose 5 MG; Start 11/21/18 at 09:00 Insulin Glargine (Lantus) 25 units DAILY@0800 SC ; Start 11/22/18 at 08:00 Dextrose/Sodium Chloride 1,000 ml @ 75 mls/hr [id number] IV Last administered on 11/23/18at 12:02; Admin Dose 75 MLS/HR; Start 11/22/18 at 08:30 Quetiapine Fumarate (Seroquel) 25 mg BID PO ; Start 11/22/18 at 21:00 Lorazepam (Ativan) 0.5 mg Q6H PRN IV anxiety/agitation Last administered on 11/22/18at 19:32; Admin Dose 0.5 MG; Start 11/22/18 at 11:00 Clopidogrel Bisulfate (plaVIX) 75 mg DAILY PO ; Start 11/23/18 at 09:00 Haloperidol (Haldol) 5 mg Q12H PRN IM agitation Last administered on 11/22/18at 19:44; Admin Dose 5 MG; Start 11/22/18 at 14:30 VTE Prophylaxis Risk score (from Nsg)>0 risk: 7 SCD applied (from Nsg): Yes Lines/Catheters IV Catheter Type: Vora in Place: No Assessment/Plan Hospital Course Subjective Patient still having episodes of confusion and hallucinations, patient very sleepy after receiving sedative medications Objective Physical exam General: Patient is laying in bed responding to questions however has episodes of confusion Mentation: Patient is alert and oriented x1 Head: Normocephalic atraumatic Eyes: EOMI, pupils reactive to light Neck: Supple, nontender, midline Respiratory: Coarse to auscultation bilaterally Cardiovascular: regular rate, no obvious murmurs Gastrointestinal: non-tender to palpation, bowel sounds heard. Neurological: Moves all extremities spontaneously Skin: No new skin lesions, surgical site bandaged, CDI assessment/Plan Acute encephalopathy -May be secondary to delirium versus anoxic brain injury secondary to cardiac arrest versus residual effect of CVA -Neurology consulted -CT noted, has age-indeterminate infarct however it should be noted that patient's son stated that patient does have a history of infarct in the past and this may be that issue -MRI noted for small CVA -psych saw patient, likely delirium, continue on seroquel Left frontal CVA -Discussed with neurology, small CVA -Aspirin and Plavix already on board due to vascular disease -Statin left-sided internal carotid artery stenosis -25% per CT angiogram, continue aspirin, statin, Plavix per vascular surgeon Acute hypoxic respiratory failure-resolving -Extubated, doing well - CT chest without contrast results noted - Pulmonology on board for vent management Cardiac arrest s/p ROSC - Cardiology on board and appreciate recommendations - ECHO with preserved EF left fifth toe gangrenous ulcer - ID on board and appreciate consultation. Will continue current antibiotics - Continue local wound care - Podiatry on board and will plan for further amputation in the near future once stable Severe peripheral vascular disease - s/p left femoral endarterectomy, iliofemoral bypass and femoral to posterior tibial bypass done on November 08, 2018 - Vascular surgery consultation appreciated -Continue aspirin and Plavix Diabetes Mellitus - A1c noted - insulin as needed Acute kidney injury- improving - nephrology consultation appreciated and most likely due to contrast induced nephropathy as well as cardiorenal. managing diuretics - continue monitoring and avoid nephrotoxic agents Essential HTN -Continue home medications at this time - BP stable Peripheral neuropathy - cont. gabapentin HLD - On statin Chronic anemia - Stable H&H. Monitor - no need for transfusions at this time Urinary retention - Urology on board and appreciate recommendations. Disposition -Continue to monitor closely for acute delirium, sedate as needed FRANTZ SCHWAB Nov 23, 2018 12:33
--- NOTE | 2018-11-23 12:52 | CONS ---
Consult Date/Type/Reason Admit Date/Time Nov 04, 2018 at 07:34 Initial Consult Date 11/11/18 Type of Consultation: Pulm Requesting Provider: KARL WOOD MD Date/Time of Note DATE: 11/23/18 TIME: 12:50 Subjective No acute events - BP well controlled - less agitated - will monitor clinically now. ROS: No fever, no chills, no nausea, no vomiting, no diarrhea/constipation - mild SOB, per nurse Objective Vitals Vital Signs Date Temp Pulse Resp B/P (MAP) Pulse Ox O2 O2 Flow FiO2 Time Delivery Rate 11/23/18 97.8 88 18 127/71 96 08:47 (89) 11/23/18 3.0 08:15 11/23/18 Nasal 02:45 Cannula Intake and Output 11/22/18 11/22/18 11/23/18 1515:00 23:00 07:00 IntakeIntake Total 150 ml 575 ml OutputOutput Total 110 ml 1500 ml BalanceBalance 40 ml -925 ml Exam General: WN/WD/NAD, AOx 0 HEENT: Unicetric/atraumatic/EOMI (does not follow commands) NECK: JVD elevated, no thyromegaly Lymph: no lymphadenopathy HEART: regular with no S3, II/ systolic murmur at apex, PMI L LUNGS: Coarse sounds ABD: soft, NT, ND, +BS : Intact Neuro: non focal SKIN: chronic changes EXT: trace edema Results/Medications Result Diagram: 11/23/18 0601 11/23/18 0602 Results 24 hrs Laboratory Tests Test 11/22/18 17:28 11/22/18 18:32 11/22/18 22:23 11/23/18 01:29 Bedside Glucose 142 145 105 129 Test 11/23/18 05:05 11/23/18 06:01 11/23/18 06:02 11/23/18 08:53 Bedside Glucose 164 158 White Blood Count 12.9 #H Red Blood Count 3.96 L Hemoglobin 11.8 L Hematocrit 36.7 L Mean Corpuscular Volume 92.7 Mean Corpuscular 29.8 Hemoglobin Mean Corpuscular 32.2 Hemoglobin Concent Red Cell Distribution 13.2 Width Platelet Count 332 Mean Platelet Volume 11.0 H Immature Granulocytes % 0.800 H Neutrophils % 70.0 Lymphocytes % 12.4 L Monocytes % 12.3 H Eosinophils % 4.3 Basophils % 0.2 Nucleated Red Blood 0.0 Cells % Immature Granulocytes # 0.100 H Neutrophils # 9.0 H Lymphocytes # 1.6 Monocytes # 1.6 H Eosinophils # 0.6 H Basophils # 0.0 Nucleated Red Blood 0.0 Cells # Sodium Level 142 Potassium Level 4.5 Chloride Level 105 Carbon Dioxide Level 31 Anion Gap 6 Blood Urea Nitrogen 31 H Creatinine 0.91 Est Glomerular Filtrat Rate mL/min Glucose Level 162 Calcium Level 8.9 Phosphorus Level 3.6 Magnesium Level 2.2 Test 11/23/18 12:00 Bedside Glucose 166 Home Meds Active Scripts Silver Sulfadiazine* (Silvadene*) 1% - 20 Gm Cream.gm., 1 APPLIC TOP DAILY, #1 TUB Prov:JESSIE WONG MD 06/12/18 Amoxicillin-Clavulanate K* (Augmentin*) 875 Mg Tab, 875 MG PO BID, #28 TAB Prov:AMANDA GOMEZ MD 06/08/14 Reported Medications Insulin Aspart (Novolog Mix (70/30)) 100 Units/Ml Soln, 28 SC with diinner, VIAL 11/04/18 Insulin Aspart (Novolog Mix (70/30)) 100 Units/Ml Soln, 38 SC WITH BREAKFAST, VIAL 11/04/18 Benazepril Hcl* (Benazepril Hcl*) 40 Mg Tablet, 40 MG PO DAILY, #30 TAB 11/04/18 Ergocalciferol (Vitamin D2) (VITAMIN D2) 50,000 Unit Capsule, 56404 UNIT PO weekly for saturdays, CAP 11/04/18 Omeprazole* (Omeprazole*) 20 Mg Capsule.dr, 20 MG PO DAILY, #30 CAP 11/04/18 Aspirin* (Aspirin* EC) 81 Mg Tablet.dr, 81 MG PO DAILY, TAB 11/04/18 Gabapentin* (Gabapentin*) 300 Mg Capsule, 300 MG PO BID, #60 CAP 11/04/18 Nebivolol Hcl* (Bystolic*) 20 Mg Tablet, 20 MG PO DAILY, #30 TAB 11/04/18 Atorvastatin Calcium* (Atorvastatin Calcium*) 20 Mg Tablet, 20 MG PO QHS, #30 TAB 11/04/18 Sulfasalazine (Azulfidine) 500 Mg Tab, 1000 MG PO TID, TAB 06/02/14 Medications Current Medications Ergocalciferol (Drisdol) 50,000 unit Sa PO Last administered on 11/09/18at 09:28; Admin Dose 50,000 UNIT; Start 11/09/18 at 09:00 Miscellaneous Medication (Bystolic) 20 mg DAILY PO Last administered on 11/11/18 09:03; Admin Dose 20 MG; Start 11/04/18 at 09:00; Status Hold Clonidine (Catapres) 0.1 mg Q6H PRN PO SBP>160 Last administered on 11/19/18at 03:04; Admin Dose 0.1 MG; Start 11/04/18 at 09:00 IV Flush (NS 3 ml) 3 ml PER PROTOCOL IV ; Start 11/04/18 at 09:00 Ondansetron HCl (Zofran Inj) 4 mg Q6H PRN IV NAUSEA/VOMITING; Start 11/04/18 at 09:00 Acetaminophen (Tylenol Tab) 650 mg Q6H PRN PO .PAIN 1-3 OR TEMP; Start 11/04/18 at 09:00 Miscellaneous Information 1 ea NOTE XX ; Start 11/04/18 at 09:00 Glucose (Glutose) 15 gm Q15M PRN PO DECREASED GLUCOSE; Start 11/04/18 at 09:00 Glucose (Glutose) 22.5 gm Q15M PRN PO DECREASED GLUCOSE; Start 11/04/18 at 09:00 Dextrose (D50w Syringe) 25 ml Q15M PRN IV DECREASED GLUCOSE; Start 11/04/18 at 09:00 Dextrose (D50w Syringe) 50 ml Q15M PRN IV DECREASED GLUCOSE; Start 11/04/18 at 09:00 Glucagon (Glucagen) 1 mg Q15M PRN IM DECREASED GLUCOSE; Start 11/04/18 at 09:00 Glucose (Glutose) 15 gm Q15M PRN BUCCAL DECREASED GLUCOSE; Start 11/04/18 at 09:00 Miscellaneous Information Patients own medicat... BID@10,16 XX Last administered on 11/20/18at 16:16; Admin Dose 1 EA; Start 11/04/18 at 16:00 Povidone Iodine (Povidone-Iodine) 1 applic BID TOP Last administered on 11/21/18at 21:00; Admin Dose 1 APPLIC; Start 11/05/18 at 21:00 Sodium Hypochlorite (Dakins Diluted (40)) 1 applic BID TP Last administered on 11/22/18 01:50; Admin Dose 1 APPLIC; Start 11/07/18 at 09:00 Hydralazine HCl (Apresoline) 10 mg Q4H PRN IV sbp >160 Last administered on 11/20/18 14:44; Admin Dose 10 MG; Start 11/08/18 at 09:00 Famotidine (Pepcid) 20 mg DAILY NGT Last administered on 11/21/18 08:55; Admin Dose 20 MG; Start 11/11/18 at 09:30 Atropine Sulfate (Atropine) 0.5 mg PRN PRN IV SYMPTOMATIC BRADYCARDIA; Start 11/11/18 at 23:00 Heparin Sodium (Porcine) (Heparin (5000 Units/1ml)) 5,000 unit BID SC Last administered on 11/23/18 09:02; Admin Dose 5,000 UNIT; Start 11/14/18 at 21:00 Bisacodyl (Dulcolax Supp) 10 mg DAILY PRN SC CONSTIPATION Last administered on 11/14/18 16:43; Admin Dose 10 MG; Start 11/14/18 at 16:30 Dextrose (D50w Syringe) 25 ml Q15M PRN IV .DECREASED GLUCOSE; Start 11/15/18 at 06:30 Dextrose (D50w Syringe) 50 ml Q15M PRN IV .DECREASED GLUCOSE; Start 11/15/18 at 06:30 Meropenem/Sodium Chloride 50 ml @ 100 mls/hr Q12 IVPB Last administered on 11/23/18 08:55; Admin Dose 100 MLS/HR; Start 11/15/18 at 14:30 IV Flush (NS 10 ml) 10 ml PRN PRN IV FLUSH LINE; Start 11/15/18 at 15:30 Fluconazole (Diflucan) 100 mg DAILY PO Last administered on 11/21/18 08:52; Admin Dose 100 MG; Start 11/16/18 at 14:00 Polyethylene Glycol (Miralax) 17 gm DAILY PRN NGT constipation; Start 11/17/18 at 09:00 Senna/Docusate Sodium (Senokot-S) 1 tab BID PRN NGT constipation; Start 11/17/18 at 09:00 Gabapentin (Neurontin Liquid) 300 mg BID PO Last administered on 11/21/18 21:00; Admin Dose 300 MG; Start 11/18/18 at 21:00 Hydralazine HCl (Apresoline) 100 mg TID PO Last administered on 11/21/18 21:57; Admin Dose 100 MG; Start 11/18/18 at 21:00 Levofloxacin (Levaquin) 250 mg DAILY@06 PO Last administered on 11/22/18 07:16; Admin Dose 250 MG; Start 11/19/18 at 06:00 Diagnostic Test (Pha) (Accu-Chek) 1 ea 02 XX ; Start 11/20/18 at 02:00 Insulin Aspart (Novolog Insulin Pen) NOVOLOG *MODERATE* ALGORI... Q4 SC Last administered on 11/23/18 12:06; Admin Dose 2 UNIT; Start 11/19/18 at 09:00 Labetalol HCl (Labetalol) 10 mg Q4H PRN IV sbp >160 Last administered on 11/19/18 19:13; Admin Dose 10 MG; Start 11/19/18 at 10:00 Ascorbic Acid (Vitamin C) 500 mg DAILY PO Last administered on 11/21/18 08:53; Admin Dose 500 MG; Start 11/20/18 at 09:00 Zinc Sulfate (Zinc Sulfate) 220 mg DAILY PO Last administered on 11/21/18 08:56; Admin Dose 220 MG; Start 11/20/18 at 09:00 Atorvastatin Calcium (Lipitor) 80 mg QHS PO Last administered on 11/21/18 21:57; Admin Dose 80 MG; Start 11/19/18 at 21:00 Amlodipine Besylate (Norvasc) 5 mg BID PO Last administered on 11/21/18 21:57; Admin Dose 5 MG; Start 11/20/18 at 21:00 Aspirin (Aspirin) 81 mg DAILY GTB Last administered on 11/21/18 08:53; Admin Dose 81 MG; Start 11/21/18 at 09:00 Furosemide (Lasix) 40 mg DAILY PO Last administered on 11/21/18 08:55; Admin Dose 40 MG; Start 11/21/18 at 09:00 Lisinopril (Zestril) 5 mg DAILY PO Last administered on 7/4/19at 08:55; Admin Dose 5 MG; Start 11/21/18 at 09:00 Insulin Glargine (Lantus) 25 units DAILY@0800 SC ; Start 11/22/18 at 08:00 Dextrose/Sodium Chloride 1,000 ml @ 75 mls/hr [id number] IV Last administered on 11/23/18at 12:02; Admin Dose 75 MLS/HR; Start 11/22/18 at 08:30 Quetiapine Fumarate (Seroquel) 25 mg BID PO ; Start 11/22/18 at 21:00 Lorazepam (Ativan) 0.5 mg Q6H PRN IV anxiety/agitation Last administered on 11/22/18at 19:32; Admin Dose 0.5 MG; Start 11/22/18 at 11:00 Clopidogrel Bisulfate (plaVIX) 75 mg DAILY PO ; Start 11/23/18 at 09:00 Haloperidol (Haldol) 5 mg Q12H PRN IM agitation Last administered on 11/22/18at 19:44; Admin Dose 5 MG; Start 11/22/18 at 14:30 Assessment/Plan Hospital Course (Demo Recall) 1. Preoperative evaluation prior to possible need for peripheral revascularization surgery.-neg trop x 3 and NL EF by echo with no sig valve abnl - s/p decomp[ensation and CODE Blue - pt was rossana last night, now in sinus -now extubated., more alert, HR controlled. Will monitor now - no focal symptoms. Less agitated - confused - not in pain. 2. Peripheral arterial disease with nonhealing gangrenous changes in left toe ulceration - post op now. Treated. Post op. 3. Hypertension, under reasonable control on current medications. NOW stable. Will allow fpr now. BETTER now. 4. Dyslipidemia. 5. Diabetes mellitus- con't to keep euglycemic 6. s/p cardiopulmonary arrest - con't resp Rx - pulmonary follows - reasonable saturation now 7. Bradycardic intermittent by tele - now back to sinus - will monitor - dopa gtt if sustained rossana. Now stable. NO indication for pacer now 8. Positive troponin after arrest-? secondary to or primary to arrest - no intervention planned now. 9. Anemia - H/H stableat 11. - no bleeding now, 10. AMS - will check ECHO r/o large veg per ID rec - will review. LENSKY,RAJI MD Nov 23, 2018 12:52
--- NOTE | 2018-11-23 14:36 | RADRPT ---
Echocardiogram Report Patient Name: María MCFARLANE ID: [id number] : 1945 (72y 11m)Study Date: 11/22/2018 12:53:38 PM Gender: MAccession #: [id number] Tech: Florin Melo [facility] Location: [address] Ref.Physician: RAJI BROWNE Height(Cm): BSA: Weight(Kg): Quality: Technically Difficult StudyOrder Physician: RAJI BROWNE Account #: Procedures: Echocardiographic Report: Transthoracic echocardiogram with complete 2D, M-Mode, and doppler examination. Indications: R/o Vegetation. Measurements: 2D/M Mode Doppler Measurement Value Normal Range Measurement Value Normal Range LVIDd 2D 3.8 [ 4.2 - 5.8 ] cm AV Peak Waylon 1.1 [ 100.0 - 170.0 ] cm/sec LVIDs 2D 2.7 [ 2.5 - 4.0 ] cm AV Peak PG 5.0 [ 2.0 - 9.0 ] mmHg LVPWd 2D 1.0 [ 0.6 - 1.0 ] cm LVOT Peak Waylon 1.0 [ 70.0 - 110.0 ] cm/sec IVSd 2D 1.5 [ 0.6 - 1.0 ] cm LVOT Peak PG 4.0 [ 2.0 - 6.0 ] mmHg AoR Diam 2D 2.6 [ 2.6 - 3.4 ] cm MV E Peak Waylon 0.9 [ 60.0 - 130.0 ] cm/sec EDV 2D 61.6 [ 62.0 - 150.0 ] ml MV A Peak Waylon 1.3 [ 100.0 - 120.0 ] cm/sec ESV 2D 26.3 [ 21.0 - 61.0 ] ml MV E/A 0.7 [ 0.8 - 1.5 ] ratio EF 2D 57.3 [ 52.0 - 72.0 ] percent MV Decel Time 113 [ 104 - 258 ] msec LA Dimen 2D 3.4 [ 3.0 - 4.0 ] cm Lat E` Waylon 0.1 [ 10.0 - 15.0 ] cm/sec Lateral E/E` 14.3 [ 1.0 - 2.0 ] ratio Med E` Waylon 0.1 cm/sec MV E/A 0.7 [ 0.8 - 1.5 ] ratio RA Pressure 3.0 mmHg Findings: Left Ventricle: Normal left ventricular systolic function. Normal left ventricular cavity size. Moderate asymmetric septal hypertrophy. Ejection fraction is visually estimated at 65 %. Tissue Doppler/Mitral Doppler indices are consistent with impaired relaxation (Stage I diastolic dysfunction). Right Ventricle: Normal right ventricular size. Normal right ventricular systolic function. Left Atrium: The left atrium is normal in size. Right Atrium: The right atrium is normal in size. Mitral Valve: Mild mitral leaflet calcification. Mild mitral annular calcification. Trace mitral regurgitation. No evidence of endocarditis. Aortic Valve: Aortic sclerosis without significant stenosis. No evidence of endocarditis. Tricuspid Valve: Normal appearance of the tricuspid valve. Unable to obtain RVSP due to minimal presence of tricuspid regurgitation. No evidence of endocarditis. Pericardium: Normal pericardium with no significant pericardial effusion. Aorta: Normal aortic root. IVC: Normal size and normal respiratory collapse consistent with normal right atrial pressure. Conclusions: Normal left ventricular systolic function. Normal left ventricular cavity size. Moderate asymmetric septal hypertrophy. Ejection fraction is visually estimated at 65 %. Tissue Doppler/Mitral Doppler indices are consistent with impaired relaxation (Stage I diastolic dysfunction). Mild mitral leaflet calcification. Mild mitral annular calcification. Trace mitral regurgitation. No evidence of endocarditis. Aortic sclerosis without significant stenosis. No evidence of endocarditis. Normal appearance of the tricuspid valve. Unable to obtain RVSP due to minimal presence of tricuspid regurgitation. No evidence of endocarditis. Electronically Signed By: Raji Browne 2018-11-23 14:35:47 PDT
--- NOTE | 2018-11-23 15:35 | CONS ---
Assessment/Plan Assessment/Plan Hospital Course (Demo Recall) ID PROGRESS NOTE CURRENT ABX: DAY # => Levaquin + Merrem + Diflucan S/P Daptomycin + Ceftriaxone 11/23/18 0601 11/23/18 0602 24H INTERVAL SUMMARY * POD #1-> s/p 11/22/18 FOOT DEBRIDEMENT * WOUND CULTURE Preliminary No growth after 1 day * Afebrile, WBC down today, stable post Extubated 11/18/18 * Recent TTE was unremarkable, Patient is a vasculopath with carotid, coronary, peripheral arterial disease * Per discussion w/Dr Ardon CT shares appearance of septic emboli * He is discussing possible GABBI with Dr. 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 MULTI DRUG RESISTANT ORGANISM Organism 2 STENOTROPHOMONAS MALTOPHILIA QUANTITY 4+ KLEB PNEUM KLEB PNEUM STENMAL M.I.C. RX M.I.C. RX M.I.C. RX --------- --- --------- --- --------- --- AMIKACIN 16 S CEFAZOLIN R CEFEPIME >=64 R CEFOTAXIME R CIPROFLOXACIN >=4 R GENTAMICIN >=16 R LEVOFLOXACIN I 0.5 S MEROPENEM 0.064 S TOBRAMYCIN >=16 R TRIMETHOPRIM/SULFAMETHOXAZOLE >=320 R <=20 S PIPERACILLIN/TAZOBACTAM 32 I DIAGNOSTIC IMAGING * 11/20/18 MRI BRAIN: IMPRESSION: Punctate acute infarct in the left posterior frontal lobe. Hypodense focus in the right thalamus on the comparison CT corresponds to an old lacunar infarct. Additional old infarcts in the bilateral frontal lobes and jennifer. Background parenchymal volume loss with chronic microvascular ischemic disease. Bilateral mastoid effusions. * 11/20/18 CAROTID US: Slightly increased velocity in the left proximal ICA, suspicious for a 50-69% stenosis. - validated velocity measurements with angiographic measurements, velocity criteria are extrapolated from diameter data as defined by the Society of Radiologists in Ultrasound Consensus Confere nce Radiology 2003; 229;340-346. This study does indirectly reference the measurement of the distal ICA diameter as the denominator for stenosis measurement. Normal antegrade flow in the vertebral arteries bilaterally. Mild to moderate calcific plaque bilaterally, left greater than right. * 11/19/18 CT BRAIN: CT of the brain yesterday revealed new 8 mm infarct in the left thalamus no acute intracranial hemorrhage. Please see full note in the chart * 11/08/18 CXR: Worsening diffuse bilateral reticular nodular infiltrates. PHYSICAL EXAMINATION = GENERAL: VSS, NAD HEENT: AT, NC, NECK: Supple, CHEST: Rise symmetrical HEART: Pulse RRR ABDOMEN: Benign EXTREMITIES: Warm, dry == left foot DSG C/D/I SKIN: No rash, no diaphoresis ID ASSESSMENT 72 yo M admit with: 1. Left foot gangrene * POD #1-> s/p 11/22/18 FOOT DEBRIDEMENT * WOUND CULTURE Preliminary No growth after 1 day 2. Peripheral arterial disease * POD #-> S/P 11/08/18 Left femoral endarterectomy w/Left iliofemoral bypass, and Left femoral->posterior tibial bypass 3. Diffuse pulmonary infiltrates == DDx CHF (STG I diastolic HF) w/possible superimposed HCAP * Per discussion w/Dr Ardon CT shares appearance of septic emboli 4. Hypertension w/HTN heart disease 5. Diabetes w/complications of peripheral neuropathy, vasculopathy 6. History of left foot second toe amputation 7. Acute kidney injury due to "NAVID" contrast induced necropathy post angiogram 8. Acute encephalopathy w/CT & MRI findings of new CVA superimposed on old prior infarcts 9. Bilateral mastoiditis (-)MRSA Nares ABX ALLERGIES: KNDA INVASIVES: PIV CURRENT ABX: DAY # => Levaquin + Merrem + Diflucan s/p Daptomycin + Ceftriaxone ID RECOMMENDATIONS/PLAN: 1. Continue current ABX -- follow APC recommendations 2. Will f/u on final wound cx pending . Consultation Date/Type/Reason Admit Date/Time Nov 04, 2018 at 07:34 Initial Consult Date Requesting Provider: KARL WOOD MD Date/Time of Note DATE: 11/23/18 TIME: 15:31 Exam/Review of Systems Exam Vitals Vital Signs Date Temp Pulse Resp B/P (MAP) Pulse Ox O2 O2 Flow FiO2 Time Delivery Rate 11/23/18 97.8 88 18 127/71 96 08:47 (89) 11/23/18 3.0 08:15 11/23/18 Nasal 08:00 Cannula Intake and Output 11/22/18 11/22/18 11/23/18 1515:00 23:00 07:00 IntakeIntake Total 150 ml 575 ml OutputOutput Total 110 ml 1500 ml BalanceBalance 40 ml -925 ml Results Result Diagram: 11/23/18 0601 11/23/18 0602 Results 24hrs Laboratory Tests Test 11/22/18 17:28 11/22/18 18:32 11/22/18 22:23 11/23/18 01:29 Bedside Glucose 142 145 105 129 Test 11/23/18 05:05 11/23/18 06:01 11/23/18 06:02 11/23/18 08:53 Bedside Glucose 164 158 White Blood Count 12.9 #H Red Blood Count 3.96 L Hemoglobin 11.8 L Hematocrit 36.7 L Mean Corpuscular Volume 92.7 Mean Corpuscular 29.8 Hemoglobin Mean Corpuscular 32.2 Hemoglobin Concent Red Cell Distribution 13.2 Width Platelet Count 332 Mean Platelet Volume 11.0 H Immature Granulocytes % 0.800 H Neutrophils % 70.0 Lymphocytes % 12.4 L Monocytes % 12.3 H Eosinophils % 4.3 Basophils % 0.2 Nucleated Red Blood 0.0 Cells % Immature Granulocytes # 0.100 H Neutrophils # 9.0 H Lymphocytes # 1.6 Monocytes # 1.6 H Eosinophils # 0.6 H Basophils # 0.0 Nucleated Red Blood 0.0 Cells # Sodium Level 142 Potassium Level 4.5 Chloride Level 105 Carbon Dioxide Level 31 Anion Gap 6 Blood Urea Nitrogen 31 H Creatinine 0.91 Est Glomerular Filtrat Rate mL/min Glucose Level 162 Calcium Level 8.9 Phosphorus Level 3.6 Magnesium Level 2.2 Test 11/23/18 12:00 Bedside Glucose 166 Medications Medication Current Medications Ergocalciferol (Drisdol) 50,000 unit Sa PO Last administered on 11/09/18at 09:28; Admin Dose 50,000 UNIT; Start 11/09/18 at 09:00 Miscellaneous Medication (Bystolic) 20 mg DAILY PO Last administered on 11/11/18 09:03; Admin Dose 20 MG; Start 11/04/18 at 09:00; Status Hold Clonidine (Catapres) 0.1 mg Q6H PRN PO SBP>160 Last administered on 11/19/18at 03:04; Admin Dose 0.1 MG; Start 11/04/18 at 09:00 IV Flush (NS 3 ml) 3 ml PER PROTOCOL IV ; Start 11/04/18 at 09:00 Ondansetron HCl (Zofran Inj) 4 mg Q6H PRN IV NAUSEA/VOMITING; Start 11/04/18 at 09:00 Acetaminophen (Tylenol Tab) 650 mg Q6H PRN PO .PAIN 1-3 OR TEMP; Start 11/04/18 at 09:00 Miscellaneous Information 1 ea NOTE XX ; Start 11/04/18 at 09:00 Glucose (Glutose) 15 gm Q15M PRN PO DECREASED GLUCOSE; Start 11/04/18 at 09:00 Glucose (Glutose) 22.5 gm Q15M PRN PO DECREASED GLUCOSE; Start 11/04/18 at 09:00 Dextrose (D50w Syringe) 25 ml Q15M PRN IV DECREASED GLUCOSE; Start 11/04/18 at 09:00 Dextrose (D50w Syringe) 50 ml Q15M PRN IV DECREASED GLUCOSE; Start 11/04/18 at 09:00 Glucagon (Glucagen) 1 mg Q15M PRN IM DECREASED GLUCOSE; Start 11/04/18 at 09:00 Glucose (Glutose) 15 gm Q15M PRN BUCCAL DECREASED GLUCOSE; Start 11/04/18 at 09:00 Miscellaneous Information Patients own medicat... BID@10,16 XX Last administered on 11/20/18at 16:16; Admin Dose 1 EA; Start 11/04/18 at 16:00 Povidone Iodine (Povidone-Iodine) 1 applic BID TOP Last administered on 11/21/18at 21:00; Admin Dose 1 APPLIC; Start 11/05/18 at 21:00 Sodium Hypochlorite (Dakins Diluted ()) 1 applic BID TP Last administered on 11/22/18 01:50; Admin Dose 1 APPLIC; Start 11/07/18 at 09:00 Hydralazine HCl (Apresoline) 10 mg Q4H PRN IV sbp >160 Last administered on 11/20/18 14:44; Admin Dose 10 MG; Start 11/08/18 at 09:00 Famotidine (Pepcid) 20 mg DAILY NGT Last administered on 11/21/18 08:55; Admin Dose 20 MG; Start 11/11/18 at 09:30 Atropine Sulfate (Atropine) 0.5 mg PRN PRN IV SYMPTOMATIC BRADYCARDIA; Start 11/11/18 at 23:00 Heparin Sodium (Porcine) (Heparin (5000 Units/1ml)) 5,000 unit BID SC Last administered on 11/23/18 09:02; Admin Dose 5,000 UNIT; Start 11/14/18 at 21:00 Bisacodyl (Dulcolax Supp) 10 mg DAILY PRN IN CONSTIPATION Last administered on 11/14/18 16:43; Admin Dose 10 MG; Start 11/14/18 at 16:30 Dextrose (D50w Syringe) 25 ml Q15M PRN IV .DECREASED GLUCOSE; Start 11/15/18 at 06:30 Dextrose (D50w Syringe) 50 ml Q15M PRN IV .DECREASED GLUCOSE; Start 11/15/18 at 06:30 Meropenem/Sodium Chloride 50 ml @ 100 mls/hr Q12 IVPB Last administered on 11/23/18 08:55; Admin Dose 100 MLS/HR; Start 11/15/18 at 14:30 IV Flush (NS 10 ml) 10 ml PRN PRN IV FLUSH LINE; Start 11/15/18 at 15:30 Fluconazole (Diflucan) 100 mg DAILY PO Last administered on 11/21/18 08:52; Admin Dose 100 MG; Start 11/16/18 at 14:00 Polyethylene Glycol (Miralax) 17 gm DAILY PRN NGT constipation; Start 11/17/18 at 09:00 Senna/Docusate Sodium (Senokot-S) 1 tab BID PRN NGT constipation; Start 11/17/18 at 09:00 Gabapentin (Neurontin Liquid) 300 mg BID PO Last administered on 11/21/18 21:00; Admin Dose 300 MG; Start 11/18/18 at 21:00 Hydralazine HCl (Apresoline) 100 mg TID PO Last administered on 11/21/18 21:57; Admin Dose 100 MG; Start 11/18/18 at 21:00 Levofloxacin (Levaquin) 250 mg DAILY@06 PO Last administered on 11/22/18 07:16; Admin Dose 250 MG; Start 11/19/18 at 06:00 Diagnostic Test (Pha) (Accu-Chek) 1 ea 02 XX ; Start 11/20/18 at 02:00 Insulin Aspart (Novolog Insulin Pen) NOVOLOG *MODERATE* ALGORI... Q4 SC Last administered on 11/23/18 12:06; Admin Dose 2 UNIT; Start 11/19/18 at 09:00 Labetalol HCl (Labetalol) 10 mg Q4H PRN IV sbp >160 Last administered on 11/19/18 19:13; Admin Dose 10 MG; Start 11/19/18 at 10:00 Ascorbic Acid (Vitamin C) 500 mg DAILY PO Last administered on 11/21/18 08:53; Admin Dose 500 MG; Start 11/20/18 at 09:00 Zinc Sulfate (Zinc Sulfate) 220 mg DAILY PO Last administered on 11/21/18 08:56; Admin Dose 220 MG; Start 11/20/18 at 09:00 Atorvastatin Calcium (Lipitor) 80 mg QHS PO Last administered on 11/21/18 21:57; Admin Dose 80 MG; Start 11/19/18 at 21:00 Amlodipine Besylate (Norvasc) 5 mg BID PO Last administered on 11/21/18 21:57; Admin Dose 5 MG; Start 11/20/18 at 21:00 Aspirin (Aspirin) 81 mg DAILY GTB Last administered on 11/21/18 08:53; Admin Dose 81 MG; Start 11/21/18 at 09:00 Furosemide (Lasix) 40 mg DAILY PO Last administered on 11/21/18 08:55; Admin Dose 40 MG; Start 11/21/18 at 09:00 Lisinopril (Zestril) 5 mg DAILY PO Last administered on 7/4/19at 08:55; Admin Dose 5 MG; Start 11/21/18 at 09:00 Insulin Glargine (Lantus) 25 units DAILY@0800 SC ; Start 11/22/18 at 08:00 Dextrose/Sodium Chloride 1,000 ml @ 75 mls/hr [id number] IV Last administered on 11/23/18at 12:02; Admin Dose 75 MLS/HR; Start 11/22/18 at 08:30 Quetiapine Fumarate (Seroquel) 25 mg BID PO ; Start 11/22/18 at 21:00 Lorazepam (Ativan) 0.5 mg Q6H PRN IV anxiety/agitation Last administered on 11/22/18at 19:32; Admin Dose 0.5 MG; Start 11/22/18 at 11:00 Clopidogrel Bisulfate (plaVIX) 75 mg DAILY PO ; Start 11/23/18 at 09:00 Haloperidol (Haldol) 5 mg Q12H PRN IM agitation Last administered on 11/22/18at 19:44; Admin Dose 5 MG; Start 11/22/18 at 14:30 NESS MUNOZ NP Nov 23, 2018 15:35
[2018-11-23] MEDS: ATORVASTATIN 80 MG TAB PO SCH (20:34)
[2018-11-24 00:03] VITALS: BP 109/52; PULSE 80; RESP 20
[2018-11-24] MEDS: INSULIN ASPART [NOVOLOG] 3 ML PEN SC SCH ×6 (00:54→21:34)
[2018-11-24] MEDS: DEXTROSE 5%-0.45% NACL 1,000 ML IV SCH ×2 (00:56→17:00)
[2018-11-24] MEDS: ACCU-CHEK XX SCH (02:00)
[2018-11-24 03:53] VITALS: BP 111/57; PULSE 83; RESP 20
[2018-11-24] MEDS: LEVOFLOXACIN 250 MG TAB PO SCH (06:12)
[2018-11-24 08:00] VITALS: BP 109/60; PULSE 88; RESP 18
--- NOTE | 2018-11-24 08:07 | CONS ---
Assessment/Plan Assessment/Plan Assessment/Plan (Recall) 72 M c/ multiple comorbidities, who initially presented for management of a limb wound.. Then on 11/11, he had a cardiac arrest that necessitated brief resuscitation and ultimate intubation.. Extubated on 11/18, he is noted to have an appreciable,though mild, encephalopathy...for which neurology is consulted.. He could have a subtle cognitive impairment at baseline, which has seen some decompensation in the context of acute illness requiring psychotropic medication exposure, etc... MRI brain is notable for a tiny left frontal subcortical infarction...and chronic lacunes. Recent TTE was unremarkable CTA was without significant L ICA stenosis. P: Agree w/ plavix daily for secondary stroke prevention Red [place] as necessary Limit sedating medications where possible Other management and supportive care per primary Will follow clinically Consultation Date/Type/Reason Admit Date/Time Nov 04, 2018 at 07:34 Type of Consult Neurology Reason for Consultation ams Requesting Provider: KARL WOOD MD Date/Time of Note DATE: 11/24/18 TIME: 08:06 24 HR Interval Summary Free Text/Dictation Continue acute care Exam/Review of Systems Exam Vitals Vital Signs Date Temp Pulse Resp B/P (MAP) Pulse Ox O2 O2 Flow FiO2 Time Delivery Rate 11/24/18 97.8 83 20 111/57 99 Nasal 03:53 (75) Cannula 11/24/18 3.0 03:31 Intake and Output 11/23/18 11/23/18 11/24/18 1515:00 23:00 07:00 IntakeIntake Total 575 ml 525 ml 60 ml OutputOutput Total 1200 ml 1100 ml BalanceBalance 575 ml -675 ml -1040 ml Results Result Diagram: 11/24/18 0625 11/24/18 0625 Results 24hrs Laboratory Tests Test 11/23/18 08:53 11/23/18 12:00 11/23/18 16:58 11/23/18 20:46 Bedside Glucose 158 166 185 163 Test 11/24/18 00:51 11/24/18 05:45 11/24/18 06:25 Bedside Glucose 162 177 White Blood Count 11.2 H Red Blood Count 3.59 L Hemoglobin 10.6 L Hematocrit 33.2 L Mean Corpuscular Volume 92.5 Mean Corpuscular 29.5 Hemoglobin Mean Corpuscular 31.9 L Hemoglobin Concent Red Cell Distribution 13.2 Width Platelet Count 308 Mean Platelet Volume 11.1 H Immature Granulocytes % 0.800 H Neutrophils % 72.0 Lymphocytes % 12.3 L Monocytes % 10.6 Eosinophils % 4.1 Basophils % 0.2 Nucleated Red Blood 0.0 Cells % Immature Granulocytes # 0.090 H Neutrophils # 8.1 H Lymphocytes # 1.4 Monocytes # 1.2 H Eosinophils # 0.5 Basophils # 0.0 Nucleated Red Blood 0.0 Cells # Sodium Level 139 Potassium Level 3.6 Chloride Level 105 Carbon Dioxide Level 30 Anion Gap 4 L Blood Urea Nitrogen 24 H Creatinine 0.91 Est Glomerular Filtrat Rate mL/min Glucose Level 186 Calcium Level 8.0 L Phosphorus Level 2.7 Magnesium Level 2.0 Medications Medication Current Medications Ergocalciferol (Drisdol) 50,000 unit Sa PO Last administered on 11/23/18at 17:10; Admin Dose 50,000 UNIT; Start 11/09/18 at 09:00 Miscellaneous Medication (Bystolic) 20 mg DAILY PO Last administered on 11/11/18at 09:03; Admin Dose 20 MG; Start 11/04/18 at 09:00; Status Hold Clonidine (Catapres) 0.1 mg Q6H PRN PO SBP>160 Last administered on 11/19/18at 03:04; Admin Dose 0.1 MG; Start 11/04/18 at 09:00 IV Flush (NS 3 ml) 3 ml PER PROTOCOL IV ; Start 11/04/18 at 09:00 Ondansetron HCl (Zofran Inj) 4 mg Q6H PRN IV NAUSEA/VOMITING; Start 11/04/18 at 09:00 Acetaminophen (Tylenol Tab) 650 mg Q6H PRN PO .PAIN 1-3 OR TEMP; Start 11/04/18 at 09:00 Miscellaneous Information 1 ea NOTE XX ; Start 11/04/18 at 09:00 Glucose (Glutose) 15 gm Q15M PRN PO DECREASED GLUCOSE; Start 11/04/18 at 09:00 Glucose (Glutose) 22.5 gm Q15M PRN PO DECREASED GLUCOSE; Start 11/04/18 at 09:00 Dextrose (D50w Syringe) 25 ml Q15M PRN IV DECREASED GLUCOSE; Start 11/04/18 at 09:00 Dextrose (D50w Syringe) 50 ml Q15M PRN IV DECREASED GLUCOSE; Start 11/04/18 at 09:00 Glucagon (Glucagen) 1 mg Q15M PRN IM DECREASED GLUCOSE; Start 11/04/18 at 09:00 Glucose (Glutose) 15 gm Q15M PRN BUCCAL DECREASED GLUCOSE; Start 11/04/18 at 09:00 Miscellaneous Information Patients own medicat... BID@10,16 XX Last administered on 11/20/18 16:16; Admin Dose 1 EA; Start 11/04/18 at 16:00 Povidone Iodine (Povidone-Iodine) 1 applic BID TOP Last administered on 11/21/18 21:00; Admin Dose 1 APPLIC; Start 11/05/18 at 21:00 Sodium Hypochlorite (Dakins Diluted ()) 1 applic BID TP Last administered on 11/22/18 01:50; Admin Dose 1 APPLIC; Start 11/07/18 at 09:00 Hydralazine HCl (Apresoline) 10 mg Q4H PRN IV sbp >160 Last administered on 11/20/18at 14:44; Admin Dose 10 MG; Start 11/08/18 at 09:00 Famotidine (Pepcid) 20 mg DAILY NGT Last administered on 11/23/18 17:09; Admin Dose 20 MG; Start 11/11/18 at 09:30 Atropine Sulfate (Atropine) 0.5 mg PRN PRN IV SYMPTOMATIC BRADYCARDIA; Start 11/11/18 at 23:00 Heparin Sodium (Porcine) (Heparin (5000 Units/1ml)) 5,000 unit BID SC Last administered on 11/23/18at 20:55; Admin Dose 5,000 UNIT; Start 11/14/18 at 21:00 Bisacodyl (Dulcolax Supp) 10 mg DAILY PRN DE CONSTIPATION Last administered on 11/14/18 16:43; Admin Dose 10 MG; Start 11/14/18 at 16:30 Dextrose (D50w Syringe) 25 ml Q15M PRN IV .DECREASED GLUCOSE; Start 11/15/18 at 06:30 Dextrose (D50w Syringe) 50 ml Q15M PRN IV .DECREASED GLUCOSE; Start 11/15/18 at 06:30 Meropenem/Sodium Chloride 50 ml @ 100 mls/hr Q12 IVPB Last administered on 11/23/18 20:49; Admin Dose 100 MLS/HR; Start 11/15/18 at 14:30 IV Flush (NS 10 ml) 10 ml PRN PRN IV FLUSH LINE; Start 11/15/18 at 15:30 Fluconazole (Diflucan) 100 mg DAILY PO Last administered on 11/23/18 17:10; Admin Dose 100 MG; Start 11/16/18 at 14:00 Polyethylene Glycol (Miralax) 17 gm DAILY PRN NGT constipation; Start 11/17/18 at 09:00 Senna/Docusate Sodium (Senokot-S) 1 tab BID PRN NGT constipation; Start 11/17/18 at 09:00 Gabapentin (Neurontin Liquid) 300 mg BID PO Last administered on 11/23/18 20:40; Admin Dose 300 MG; Start 11/18/18 at 21:00 Hydralazine HCl (Apresoline) 100 mg TID PO Last administered on 11/23/18 20:34; Admin Dose 100 MG; Start 11/18/18 at 21:00 Levofloxacin (Levaquin) 250 mg DAILY@06 PO Last administered on 11/24/18 06:12; Admin Dose 250 MG; Start 11/19/18 at 06:00 Diagnostic Test (Pha) (Accu-Chek) 1 ea 02 XX ; Start 11/20/18 at 02:00 Insulin Aspart (Novolog Insulin Pen) NOVOLOG *MODERATE* ALGORI... Q4 SC Last administered on 11/24/18 05:48; Admin Dose 2 UNIT; Start 11/19/18 at 09:00 Labetalol HCl (Labetalol) 10 mg Q4H PRN IV sbp >160 Last administered on 11/19/18 19:13; Admin Dose 10 MG; Start 11/19/18 at 10:00 Ascorbic Acid (Vitamin C) 500 mg DAILY PO Last administered on 11/23/18 17:09; Admin Dose 500 MG; Start 11/20/18 at 09:00 Zinc Sulfate (Zinc Sulfate) 220 mg DAILY PO Last administered on 11/23/18 17:09; Admin Dose 220 MG; Start 11/20/18 at 09:00 Atorvastatin Calcium (Lipitor) 80 mg QHS PO Last administered on 11/23/18 20:34; Admin Dose 80 MG; Start 11/19/18 at 21:00 Amlodipine Besylate (Norvasc) 5 mg BID PO Last administered on 11/23/18 20:34; Admin Dose 5 MG; Start 11/20/18 at 21:00 Aspirin (Aspirin) 81 mg DAILY GTB Last administered on 11/23/18 17:09; Admin Dose 81 MG; Start 11/21/18 at 09:00 Furosemide (Lasix) 40 mg DAILY PO Last administered on 11/23/18 17:10; Admin Do se 40 MG; Start 11/21/18 at 09:00 Lisinopril (Zestril) 5 mg DAILY PO Last administered on 11/21/18 08:55; Admin Dose 5 MG; Start 11/21/18 at 09:00 Insulin Glargine (Lantus) 25 units DAILY@0800 SC ; Start 11/22/18 at 08:00 Dextrose/Sodium Chloride 1,000 ml @ 20 mls/hr Q24H IV Last administered on 11/24 00:56; Admin Dose 75 MLS/HR; Start 11/22/18 at 08:30 Quetiapine Fumarate (Seroquel) 25 mg BID PO Last administered on 11/23/18 20:35; Admin Dose 25 MG; Start 11/22/18 at 21:00 Lorazepam (Ativan) 0.5 mg Q6H PRN IV anxiety/agitation Last administered on 11/22/18 19:32; Admin Dose 0.5 MG; Start 11/22/18 at 11:00 Clopidogrel Bisulfate (plaVIX) 75 mg DAILY PO Last administered on 11/23/18 17:09; Admin Dose 75 MG; Start 11/23/18 at 09:00 Haloperidol (Haldol) 5 mg Q12H PRN IM agitation Last administered on 11/22/18 19:44; Admin Dose 5 MG; Start 11/22/18 at 14:30 ALBAN WOLF Nov 24, 2018 08:07
[2018-11-24] MEDS: GABAPENTIN (50 MG/ML PO SYG) PO SCH ×2 (08:44→20:58)
[2018-11-24] MEDS: ASCORBIC ACID 500 MG TAB PO SCH (08:44)
[2018-11-24] MEDS: ZINC SULFATE 220 MG CAP PO SCH (08:44)
[2018-11-24] MEDS: MEROPENEM 500MG/50 ML (PMX) 50 ML IVPB SCH ×2 (08:44→20:58)
[2018-11-24] MEDS: CLOPIDOGREL 75 MG TAB PO SCH (08:44)
[2018-11-24] MEDS: ASPIRIN 81 MG TAB GTB SCH (08:44)
[2018-11-24] MEDS: LISINOPRIL 5 MG TAB PO SCH (08:45)
[2018-11-24] MEDS: QUETIAPINE 25 MG TAB PO SCH ×2 (08:45→20:57)
[2018-11-24] MEDS: AMLODIPINE 5 MG TAB PO SCH ×2 (08:45→21:01)
[2018-11-24] MEDS: FLUCONAZOLE 100 MG TAB PO SCH (08:48)
[2018-11-24] MEDS: FUROSEMIDE 40 MG TAB PO SCH (08:49)
[2018-11-24] MEDS: HEPARIN 5,000 UNIT/1 ML VIAL SC SCH ×2 (08:55→21:10)
[2018-11-24] MEDS: INSULIN GLARGINE [LANTus] (100 UNITS/ML) SYG SC SCH (08:55)
[2018-11-24] MEDS: POVIDONE IODINE 10% 28.4 GM OINT TOP SCH ×2 (09:00→21:00)
[2018-11-24] MEDS: FAMOTIDINE 20 MG TAB NGT SCH (09:00)
[2018-11-24] MEDS: DAKINS 0.0125%(1/40) 473 ML SOLUTION TP SCH ×2 (09:00→21:00)
--- NOTE | 2018-11-24 09:27 | PN ---
DATE: 11/24/2018 SUBJECTIVE: The patient remains confused. No other acute events noted. No hemoptysis, hematemesis , or hematochezia. OBJECTIVE: VITAL SIGNS: Blood pressure is 111/56, respirations 20, pulse 83, temperature 97.8. HEENT: Head is normocephalic. NECK: Supple. HEART: Regular rate. LUNGS: Show diminished breath sounds at the base. ABDOMEN: Soft, nontender to palpation without rebound or guarding. EXTREMITIES: Negative for clubbing, cyanosis, no edema. DERMATOLOGIC: No rashes. MUSCULOSKELETAL: No joint effusion. NEUROLOGIC: No change in exam. MEDICATIONS: Reviewed. LABORATORY DATA: Has been reviewed. IMAGING STUDIES: Have been reviewed. ASSESSMENT AND PLAN: 1. Nonoliguric acute kidney injury. Etiology is secondary to hemodynamics, tubular injury, renal fu nction ____ renally dose all meds. 2. Volume overload, improved, etiology secondary to acute diastolic heart failure, acute kidney inju ry. The patient remains on IV fluids, will deescalate rate. Continue to encourage free water intake . Monitor closely. 3. Anemia. Monitor hemoglobin and hematocrit levels. 4. Mineral bone disorder. Monitor calcium and phosphorus levels. 5. Respiratory failure, status post extubation, currently stable. Continue to monitor. 6. Arrhythmia. Continue to monitor. Follow up with Cardiology. 7. Peripheral vascular disease, status post iliofemoral bypass. 8. Left toe gangrene status post amputation. 9. Hypertension. Continue current blood pressure regimen. 10. Acute encephalopathy, etiology is toxic metabolic. 11. Dyslipidemia, continue statin therapy. 12. Status post cardiac arrest. Dictated By: JEAN CLAUDE RUFFIN/BOBO Conf#: [id number] DID#: [id number]
--- NOTE | 2018-11-24 11:38 | CONS ---
Consult Date/Type/Reason Admit Date/Time Nov 04, 2018 at 07:34 Initial Consult Date 11/11/18 Type of Consult Pulmonary Requesting Provider: KARL WOOD MD Date/Time of Note DATE: 11/24/18 TIME: 11:37 Subjective Still confused with intermittent agitation. Objective Vital Signs Date Temp Pulse Resp B/P (MAP) Pulse Ox O2 O2 Flow FiO2 Time Delivery Rate 11/24/18 97.8 88 18 109/60 96 08:00 (76) 11/24/18 Nasal 5.0 08:00 Cannula Intake and Output 11/23/18 11/23/18 11/24/18 1515:00 23:00 07:00 IntakeIntake Total 575 ml 525 ml 60 ml OutputOutput Total 1200 ml 1100 ml BalanceBalance 575 ml -675 ml -1040 ml Exam NECK: Supple. No JVD or lymphadenopathy. CARDIAC: S1, S2, no added sounds or murmurs. CHEST: Diminished air entry bilaterally. ABDOMEN: Soft, nontender. No guarding or rebound. EXTREMITIES: No cyanosis, clubbing, 1+ edema. NEUROLOGIC: Generalized weakness. Vent Setting Ventilator Support Mode: CPAP, PS, SPONT Fraction of Inspired Oxygen pe: 40 Positive End Expiratory Pressu: 5.0 Results/Medications Result Diagram: 11/24/18 0625 11/24/18 0625 Results 24 hrs Laboratory Tests Test 11/23/18 12:00 11/23/18 16:58 11/23/18 20:46 11/24/18 00:51 Bedside Glucose 166 185 163 162 Test 11/24/18 05:45 11/24/18 06:25 11/24/18 08:17 Bedside Glucose 177 193 White Blood Count 11.2 H Red Blood Count 3.59 L Hemoglobin 10.6 L Hematocrit 33.2 L Mean Corpuscular Volume 92.5 Mean Corpuscular 29.5 Hemoglobin Mean Corpuscular 31.9 L Hemoglobin Concent Red Cell Distribution 13.2 Width Platelet Count 308 Mean Platelet Volume 11.1 H Immature Granulocytes % 0.800 H Neutrophils % 72.0 Lymphocytes % 12.3 L Monocytes % 10.6 Eosinophils % 4.1 Basophils % 0.2 Nucleated Red Blood 0.0 Cells % Immature Granulocytes # 0.090 H Neutrophils # 8.1 H Lymphocytes # 1.4 Monocytes # 1.2 H Eosinophils # 0.5 Basophils # 0.0 Nucleated Red Blood 0.0 Cells # Sodium Level 139 Potassium Level 3.6 Chloride Level 105 Carbon Dioxide Level 30 Anion Gap 4 L Blood Urea Nitrogen 24 H Creatinine 0.91 Est Glomerular Filtrat Rate mL/min Glucose Level 186 Calcium Level 8.0 L Phosphorus Level 2.7 Magnesium Level 2.0 Medications Current Medications Ergocalciferol (Drisdol) 50,000 unit Sa PO Last administered on 11/23/18at 17:10; Admin Dose 50,000 UNIT; Start 11/09/18 at 09:00 Miscellaneous Medication (Bystolic) 20 mg DAILY PO Last administered on 11/11/18at 09:03; Admin Dose 20 MG; Start 11/04/18 at 09:00; Status Hold Clonidine (Catapres) 0.1 mg Q6H PRN PO SBP>160 Last administered on 11/19/18at 03:04; Admin Dose 0.1 MG; Start 11/04/18 at 09:00 IV Flush (NS 3 ml) 3 ml PER PROTOCOL IV ; Start 11/04/18 at 09:00 Ondansetron HCl (Zofran Inj) 4 mg Q6H PRN IV NAUSEA/VOMITING; Start 11/04/18 at 09:00 Acetaminophen (Tylenol Tab) 650 mg Q6H PRN PO .PAIN 1-3 OR TEMP; Start 11/04/18 at 09:00 Miscellaneous Information 1 ea NOTE XX ; Start 11/04/18 at 09:00 Glucose (Glutose) 15 gm Q15M PRN PO DECREASED GLUCOSE; Start 11/04/18 at 09:00 Glucose (Glutose) 22.5 gm Q15M PRN PO DECREASED GLUCOSE; Start 11/04/18 at 09:00 Dextrose (D50w Syringe) 25 ml Q15M PRN IV DECREASED GLUCOSE; Start 11/04/18 at 09:00 Dextrose (D50w Syringe) 50 ml Q15M PRN IV DECREASED GLUCOSE; Start 11/04/18 at 09:00 Glucagon (Glucagen) 1 mg Q15M PRN IM DECREASED GLUCOSE; Start 11/04/18 at 09:00 Glucose (Glutose) 15 gm Q15M PRN BUCCAL DECREASED GLUCOSE; Start 11/04/18 at 09:00 Miscellaneous Information Patients own medicat... BID@10,16 XX Last administered on 11/20/18 16:16; Admin Dose 1 EA; Start 11/04/18 at 16:00 Povidone Iodine (Povidone-Iodine) 1 applic BID TOP Last administered on 11/21/18 21:00; Admin Dose 1 APPLIC; Start 11/05/18 at 21:00 Sodium Hypochlorite (Dakins Diluted (40)) 1 applic BID TP Last administered on 11/22/18 01:50; Admin Dose 1 APPLIC; Start 11/07/18 at 09:00 Hydralazine HCl (Apresoline) 10 mg Q4H PRN IV sbp >160 Last administered on 11/20/18 14:44; Admin Dose 10 MG; Start 11/08/18 at 09:00 Famotidine (Pepcid) 20 mg DAILY NGT Last administered on 11/24/18 09:00; Admin Dose 20 MG; Start 11/11/18 at 09:30 Atropine Sulfate (Atropine) 0.5 mg PRN PRN IV SYMPTOMATIC BRADYCARDIA; Start 11/11/18 at 23:00 Heparin Sodium (Porcine) (Heparin (5000 Units/1ml)) 5,000 unit BID SC Last administered on 11/24/18 08:55; Admin Dose 5,000 UNIT; Start 11/14/18 at 21:00 Bisacodyl (Dulcolax Supp) 10 mg DAILY PRN PA CONSTIPATION Last administered on 11/14/18 16:43; Admin Dose 10 MG; Start 11/14/18 at 16:30 Dextrose (D50w Syringe) 25 ml Q15M PRN IV .DECREASED GLUCOSE; Start 11/15/18 at 06:30 Dextrose (D50w Syringe) 50 ml Q15M PRN IV .DECREASED GLUCOSE; Start 11/15/18 at 06:30 Meropenem/Sodium Chloride 50 ml @ 100 mls/hr Q12 IVPB Last administered on 11/24/18 08:44; Admin Dose 100 MLS/HR; Start 11/15/18 at 14:30 IV Flush (NS 10 ml) 10 ml PRN PRN IV FLUSH LINE; Start 11/15/18 at 15:30 Fluconazole (Diflucan) 100 mg DAILY PO Last administered on 11/24/18 08:48; Admin Dose 100 MG; Start 11/16/18 at 14:00 Polyethylene Glycol (Miralax) 17 gm DAILY PRN NGT constipation; Start 11/17/18 at 09:00 Senna/Docusate Sodium (Senokot-S) 1 tab BID PRN NGT constipation; Start 11/17/18 at 09:00 Gabapentin (Neurontin Liquid) 300 mg BID PO Last administered on 11/24/18 08:44; Admin Dose 300 MG; Start 11/18/18 at 21:00 Hydralazine HCl (Apresoline) 100 mg TID PO Last administered on 11/24/18 08:45; Admin Dose 100 MG; Start 11/18/18 at 21:00 Levofloxacin (Levaquin) 250 mg DAILY@06 PO Last administered on 11/24/18 06:12; Admin Dose 250 MG; Start 11/19/18 at 06:00 Diagnostic Test (Pha) (Accu-Chek) 1 ea 02 XX ; Start 11/20/18 at 02:00 Insulin Aspart (Novolog Insulin Pen) NOVOLOG *MODERATE* ALGORI... Q4 SC Last administered on 11/24/18 08:56; Admin Dose 4 UNIT; Start 11/19/18 at 09:00 Labetalol HCl (Labetalol) 10 mg Q4H PRN IV sbp >160 Last administered on 11/19/18 19:13; Admin Dose 10 MG; Start 11/19/18 at 10:00 Ascorbic Acid (Vitamin C) 500 mg DAILY PO Last administered on 11/24/18 08:44; Admin Dose 500 MG; Start 11/20/18 at 09:00 Zinc Sulfate (Zinc Sulfate) 220 mg DAILY PO Last administered on 11/24/18 08:44; Admin Dose 220 MG; Start 11/20/18 at 09:00 Atorvastatin Calcium (Lipitor) 80 mg QHS PO Last administered on 11/23/18 20:34; Admin Dose 80 MG; Start 11/19/18 at 21:00 Amlodipine Besylate (Norvasc) 5 mg BID PO Last administered on 11/24/18 08:45; Admin Dose 5 MG; Start 11/20/18 at 21:00 Aspirin (Aspirin) 81 mg DAILY GTB Last administered on 11/24/18 08:44; Admin Dose 81 MG; Start 11/21/18 at 09:00 Furosemide (Lasix) 40 mg DAILY PO Last administered on 11/24/18 08:49; Admin Dose 40 MG; Start 11/21/18 at 09:00 Lisinopril (Zestril) 5 mg DAILY PO Last administered on 11/24/18 08:45; Admin Dose 5 MG; Start 11/21/18 at 09:00 Insulin Glargine (Lantus) 25 units DAILY@0800 SC Last administered on 11/24/18 08:55; Admin Dose 25 UNITS; Start 11/22/18 at 08:00 Dextrose/Sodium Chloride 1,000 ml @ 20 mls/hr Q24H IV Last administered on 11/24/18 00:56; Admin Dose 75 MLS/HR; Start 11/22/18 at 08:30 Quetiapine Fumarate (Seroquel) 25 mg BID PO Last administered on 11/24/18 08:45; Admin Dose 25 MG; Start 11/22/18 at 21:00 Lorazepam (Ativan) 0.5 mg Q6H PRN IV anxiety/agitation Last administered on 11/22/18 19:32; Admin Dose 0.5 MG; Start 11/22/18 at 11:00 Clopidogrel Bisulfate (plaVIX) 75 mg DAILY PO Last administered on 11/24/18 08:44; Admin Dose 75 MG; Start 11/23/18 at 09:00 Haloperidol (Haldol) 5 mg Q12H PRN IM agitation Last administered on 11/22/18 19:44; Admin Dose 5 MG; Start 11/22/18 at 14:30 Assessment/Plan Hospital Course (Demo Recall) IMPRESSION 1. Acute hypoxemic respiratory failure likely following cardiopulmonary arrest. Status post ARDS. 2. Recent new onset bradycardia.now resolved. 3. History of peripheral vascular disease. 4. History of poorly controlled diabetes. 5. Anemia, no GIB 6. Leukocytosis likely secondary to steroids. 7. Encephalopathy with new CVA noted. PLAN: 1. Diuretics as tolerated. 2. Stable off mechanical ventilation. Strict aspiration precautions 3. Wound care and podiatry recommendations 4. May require nasogastric tube feeding given persistent encephalopathy and decreased p.o. intake 5. Appreciate psych evaluation Satnam lewis from pulmonary standpoint EDWIGE CARRANZA MD, [facility] Nov 24, 2018 11:38
--- NOTE | 2018-11-24 12:18 | CONS ---
Consult Date/Type/Reason Admit Date/Time Nov 04, 2018 at 07:34 Initial Consult Date 11/11/18 Type of Consultation: Pulm Requesting Provider: KARL WOOD MD Date/Time of Note DATE: 11/24/18 TIME: 12:15 Subjective NO acute events - pt encephalopathic now - no longer combative - Vs stable. Per nurse: no F/C/N/V/D/C Objective Vitals Vital Signs Date Temp Pulse Resp B/P (MAP) Pulse Ox O2 O2 Flow FiO2 Time Delivery Rate 11/24/18 97.8 88 18 109/60 96 08:00 (76) 11/24/18 Nasal 5.0 08:00 Cannula Intake and Output 11/23/18 11/23/18 11/24/18 1515:00 23:00 07:00 IntakeIntake Total 575 ml 525 ml 60 ml OutputOutput Total 1200 ml 1100 ml BalanceBalance 575 ml -675 ml -1040 ml Exam Geneal: WN/WD/NAD, AOx 0 confused HEENT: Unicetric/atraumatic/EOMI (does not follow commands) NECK: JVD elevated, no thyromegaly Lymph: no lymphadenopathy HEART: regular with no S3, II/ systolic murmur at apex, PMI L LUNGS: Coarse sounds, treated ABD: soft, NT, ND, +BS : Intact Neuro: non focal SKIN: chronic changes - post op EXT: trace edema Results/Medications Result Diagram: 11/24/18 0625 11/24/18 0625 Results 24 hrs Laboratory Tests Test 11/23/18 16:58 11/23/18 20:46 11/24/18 00:51 11/24/18 05:45 Bedside Glucose 185 163 162 177 Test 11/24/18 06:25 11/24/18 08:17 11/24/18 12:10 White Blood Count 11.2 H Red Blood Count 3.59 L Hemoglobin 10.6 L Hematocrit 33.2 L Mean Corpuscular Volume 92.5 Mean Corpuscular 29.5 Hemoglobin Mean Corpuscular 31.9 L Hemoglobin Concent Red Cell Distribution 13.2 Width Platelet Count 308 Mean Platelet Volume 11.1 H Immature Granulocytes % 0.800 H Neutrophils % 72.0 Lymphocytes % 12.3 L Monocytes % 10.6 Eosinophils % 4.1 Basophils % 0.2 Nucleated Red Blood 0.0 Cells % Immature Granulocytes # 0.090 H Neutrophils # 8.1 H Lymphocytes # 1.4 Monocytes # 1.2 H Eosinophils # 0.5 Basophils # 0.0 Nucleated Red Blood 0.0 Cells # Sodium Level 139 Potassium Level 3.6 Chloride Level 105 Carbon Dioxide Level 30 Anion Gap 4 L Blood Urea Nitrogen 24 H Creatinine 0.91 Est Glomerular Filtrat Rate mL/min Glucose Level 186 Calcium Level 8.0 L Phosphorus Level 2.7 Magnesium Level 2.0 Bedside Glucose 193 262 H Home Meds Active Scripts Silver Sulfadiazine* (Silvadene*) 1% - 20 Gm Cream.gm., 1 APPLIC TOP DAILY, #1 TUB Prov:SINGHJESSIE SPENCE MD 06/12/18 Amoxicillin-Clavulanate K* (Augmentin*) 875 Mg Tab, 875 MG PO BID, #28 TAB Prov:AMANDA GOMEZ MD 06/08/14 Reported Medications Insulin Aspart (Novolog Mix (70/30)) 100 Units/Ml Soln, 28 SC with diinner, VIAL 11/04/18 Insulin Aspart (Novolog Mix (70/30)) 100 Units/Ml Soln, 38 SC WITH BREAKFAST, VIAL 11/04/18 Benazepril Hcl* (Benazepril Hcl*) 40 Mg Tablet, 40 MG PO DAILY, #30 TAB 11/04/18 Ergocalciferol (Vitamin D2) (VITAMIN D2) 50,000 Unit Capsule, 57085 UNIT PO weekly for saturdays, CAP 11/04/18 Omeprazole* (Omeprazole*) 20 Mg Capsule.dr, 20 MG PO DAILY, #30 CAP 11/04/18 Aspirin* (Aspirin* EC) 81 Mg Tablet.dr, 81 MG PO DAILY, TAB 11/04/18 Gabapentin* (Gabapentin*) 300 Mg Capsule, 300 MG PO BID, #60 CAP 11/04/18 Nebivolol Hcl* (Bystolic*) 20 Mg Tablet, 20 MG PO DAILY, #30 TAB 11/04/18 Atorvastatin Calcium* (Atorvastatin Calcium*) 20 Mg Tablet, 20 MG PO QHS, #30 TAB 11/04/18 Sulfasalazine (Azulfidine) 500 Mg Tab, 1000 MG PO TID, TAB 06/02/14 Medications Current Medications Ergocalciferol (Drisdol) 50,000 unit Sa PO Last administered on 11/23/18 17:10; Admin Dose 50,000 UNIT; Start 11/09/18 at 09:00 Miscellaneous Medication (Bystolic) 20 mg DAILY PO Last administered on 11/11/18 09:03; Admin Dose 20 MG; Start 11/04/18 at 09:00; Status Hold Clonidine (Catapres) 0.1 mg Q6H PRN PO SBP>160 Last administered on 11/19/18 03:04; Admin Dose 0.1 MG; Start 11/04/18 at 09:00 IV Flush (NS 3 ml) 3 ml PER PROTOCOL IV ; Start 11/04/18 at 09:00 Ondansetron HCl (Zofran Inj) 4 mg Q6H PRN IV NAUSEA/VOMITING; Start 11/04/18 at 09:00 Acetaminophen (Tylenol Tab) 650 mg Q6H PRN PO .PAIN 1-3 OR TEMP; Start 11/04/18 at 09:00 Miscellaneous Information 1 ea NOTE XX ; Start 11/04/18 at 09:00 Glucose (Glutose) 15 gm Q15M PRN PO DECREASED GLUCOSE; Start 11/04/18 at 09:00 Glucose (Glutose) 22.5 gm Q15M PRN PO DECREASED GLUCOSE; Start 11/04/18 at 09:00 Dextrose (D50w Syringe) 25 ml Q15M PRN IV DECREASED GLUCOSE; Start 11/04/18 at 09:00 Dextrose (D50w Syringe) 50 ml Q15M PRN IV DECREASED GLUCOSE; Start 11/04/18 at 09:00 Glucagon (Glucagen) 1 mg Q15M PRN IM DECREASED GLUCOSE; Start 11/04/18 at 09:00 Glucose (Glutose) 15 gm Q15M PRN BUCCAL DECREASED GLUCOSE; Start 11/04/18 at 09:00 Miscellaneous Information Patients own medicat... BID@,16 XX Last administered on 11/20/18at 16:16; Admin Dose 1 EA; Start 11/04/18 at 16:00 Povidone Iodine (Povidone-Iodine) 1 applic BID TOP Last administered on 11/21/18at 21:00; Admin Dose 1 APPLIC; Start 11/05/18 at 21:00 Sodium Hypochlorite (Dakins Diluted (1/40)) 1 applic BID TP Last administered on 11/22/18 01:50; Admin Dose 1 APPLIC; Start 11/07/18 at 09:00 Hydralazine HCl (Apresoline) 10 mg Q4H PRN IV sbp >160 Last administered on 11/20/18 14:44; Admin Dose 10 MG; Start 11/08/18 at 09:00 Famotidine (Pepcid) 20 mg DAILY NGT Last administered on 11/24/18 09:00; Admin Dose 20 MG; Start 11/11/18 at 09:30 Atropine Sulfate (Atropine) 0.5 mg PRN PRN IV SYMPTOMATIC BRADYCARDIA; Start 11/11/18 at 23:00 Heparin Sodium (Porcine) (Heparin (5000 Units/1ml)) 5,000 unit BID SC Last administered on 11/24/18 08:55; Admin Dose 5,000 UNIT; Start 11/14/18 at 21:00 Bisacodyl (Dulcolax Supp) 10 mg DAILY PRN [place] CONSTIPATION Last administered on 11/14/18 16:43; Admin Dose 10 MG; Start 11/14/18 at 16:30 Dextrose (D50w Syringe) 25 ml Q15M PRN IV .DECREASED GLUCOSE; Start 11/15/18 at 06:30 Dextrose (D50w Syringe) 50 ml Q15M PRN IV .DECREASED GLUCOSE; Start 11/15/18 at 06:30 Meropenem/Sodium Chloride 50 ml @ 100 mls/hr Q12 IVPB Last administered on 11/24/18 08:44; Admin Dose 100 MLS/HR; Start 11/15/18 at 14:30 IV Flush (NS 10 ml) 10 ml PRN PRN IV FLUSH LINE; Start 11/15/18 at 15:30 Fluconazole (Diflucan) 100 mg DAILY PO Last administered on 11/24/18 08:48; Admin Dose 100 MG; Start 11/16/18 at 14:00 Polyethylene Glycol (Miralax) 17 gm DAILY PRN NGT constipation; Start 11/17/18 at 09:00 Senna/Docusate Sodium (Senokot-S) 1 tab BID PRN NGT constipation; Start 11/17/18 at 09:00 Gabapentin (Neurontin Liquid) 300 mg BID PO Last administered on 11/24/18 08:44; Admin Dose 300 MG; Start 11/18/18 at 21:00 Hydralazine HCl (Apresoline) 100 mg TID PO Last administered on 11/24/18 08:45; Admin Dose 100 MG; Start 11/18/18 at 21:00 Levofloxacin (Levaquin) 250 mg DAILY@06 PO Last administered on 11/24/18 06:12; Admin Dose 250 MG; Start 11/19/18 at 06:00 Diagnostic Test (Pha) (Accu-Chek) 1 ea 02 XX ; Start 11/20/18 at 02:00 Insulin Aspart (Novolog Insulin Pen) NOVOLOG *MODERATE* ALGORI... Q4 SC Last administered on 11/24/18 12:14; Admin Dose 8 UNIT; Start 11/19/18 at 09:00 Labetalol HCl (Labetalol) 10 mg Q4H PRN IV sbp >160 Last administered on 11/19/18 19:13; Admin Dose 10 MG; Start 11/19/18 at 10:00 Ascorbic Acid (Vitamin C) 500 mg DAILY PO Last administered on 11/24/18 08:44; Admin Dose 500 MG; Start 11/20/18 at 09:00 Zinc Sulfate (Zinc Sulfate) 220 mg DAILY PO Last administered on 11/24/18 08:44; Admin Dose 220 MG; Start 11/20/18 at 09:00 Atorvastatin Calcium (Lipitor) 80 mg QHS PO Last administered on 11/23/18 20:34; Admin Dose 80 MG; Start 11/19/18 at 21:00 Amlodipine Besylate (Norvasc) 5 mg BID PO Last administered on 11/24/18 08:45; Admin Dose 5 MG; Start 11/20/18 at 21:00 Aspirin (Aspirin) 81 mg DAILY GTB Last administered on 11/24/18 08:44; Admin Dose 81 MG; Start 11/21/18 at 09:00 Furosemide (Lasix) 40 mg DAILY PO Last administered on 11/24/18 08:49; Admin Dose 40 MG; Start 11/21/18 at 09:00 Lisinopril (Zestril) 5 mg DAILY PO Last administered on 11/24/18 08:45; Admin Dose 5 MG; Start 11/21/18 at 09:00 Insulin Glargine (Lantus) 25 units DAILY@0800 SC Last administered on 11/24/18 08:55; Admin Dose 25 UNITS; Start 11/22/18 at 08:00 Dextrose/Sodium Chloride 1,000 ml @ 20 mls/hr Q24H IV Last administered on 11/24/18 00:56; Admin Dose 75 MLS/HR; Start 11/22/18 at 08:30 Quetiapine Fumarate (Seroquel) 25 mg BID PO Last administered on 11/24/18 08:45; Admin Dose 25 MG; Start 11/22/18 at 21:00 Lorazepam (Ativan) 0.5 mg Q6H PRN IV anxiety/agitation Last administered on 11/22/18 19:32; Admin Dose 0.5 MG; Start 11/22/18 at 11:00 Clopidogrel Bisulfate (plaVIX) 75 mg DAILY PO Last administered on 11/24/18 08:44; Admin Dose 75 MG; Start 11/23/18 at 09:00 Haloperidol (Haldol) 5 mg Q12H PRN IM agitation Last administered on 11/22/18 19:44; Admin Dose 5 MG; Start 11/22/18 at 14:30 Assessment/Plan Hospital Course (Demo Recall) 1. Preoperative evaluation prior to possible need for peripheral revascularization surgery.-neg trop x 3 and NL EF by echo with no sig valve abnl - s/p decomp[ensation and CODE Blue - pt was rossana last night, now in sinus -now extubated., more alert, HR controlled. Will monitor now - no focal symptoms. Less agitated - confused - not in pain. Now encephalopathic - will monitor for now. 2. Peripheral arterial disease with nonhealing gangrenous changes in left toe ulceration - post op now. Treated. Post op. Site looks well. 3. Hypertension, under reasonable control on current medications. NOW stable. Will allow fpr now. BETTER now. 4. Dyslipidemia. 5. Diabetes mellitus- con't to keep euglycemic 6. s/p cardiopulmonary arrest - con't resp Rx - pulmonary follows - reasonable saturation now Now in sinus. 7. Bradycardic intermittent by tele - now back to sinus - will monitor - dopa gtt if sustained rossana. Now stable. NO indication for pacer now 8. Positive troponin after arrest-? secondary to or primary to arrest - no intervention planned now. 9. Anemia - H/H stableat 11. - no bleeding now, 10. AMS - will check ECHO r/o large veg per ID rec - ECHO showed no obvious vegetation. RAJI BROWNE MD Nov 24, 2018 12:18
--- NOTE | 2018-11-24 12:54 | CONS ---
Assessment/Plan Assessment/Plan Hospital Course (Demo Recall) ID PROGRESS NOTE CURRENT ABX: DAY # => Levaquin + Merrem + Diflucan S/P Daptomycin + Ceftriaxone 11/24/18 0625 11/24/18 0625 24H INTERVAL SUMMARY * POD #2-> s/p 11/22/18 FOOT DEBRIDEMENT * WOUND CULTURE Preliminary No growth after 1 day * Awake, confused -- appreciate Outsole Molder and Neuro NOTES * Afebrile, WBC down today, stable post Extubated 11/18/18 * Recent TTE was unremarkable, Patient is a vasculopath with carotid, coronary, peripheral arterial disease * Per discussion w/Dr Ardon CT shares appearance of septic emboli * He is discussing possible GABBI with Dr. 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 MULTI DRUG RESISTANT ORGANISM Organism 2 STENOTROPHOMONAS MALTOPHILIA QUANTITY 4+ KLEB PNEUM KLEB PNEUM STENMAL M.I.C. RX M.I.C. RX M.I.C. RX --------- --- --------- --- --------- --- AMIKACIN 16 S CEFAZOLIN R CEFEPIME >=64 R CEFOTAXIME R CIPROFLOXACIN >=4 R GENTAMICIN >=16 R LEVOFLOXACIN I 0.5 S MEROPENEM 0.064 S TOBRAMYCIN >=16 R TRIMETHOPRIM/SULFAMETHOXAZOLE >=320 R <=20 S PIPERACILLIN/TAZOBACTAM 32 I DIAGNOSTIC IMAGING * 11/20/18 MRI BRAIN: IMPRESSION: Punctate acute infarct in the left posterior frontal lobe. Hypodense focus in the right thalamus on the comparison CT corresponds to an old lacunar infarct. Additional old infarcts in the bilateral frontal lobes and jennifer. Background parenchymal volume loss with chronic microvascular ischemic disease. Bilateral mastoid effusions. * 11/20/18 CAROTID US: Slightly increased velocity in the left proximal ICA, suspicious for a 50-69% stenosis. - validated velocity measurements with angiographic measurements, velocity criteria are extrapolated from diameter data as defined by the Society of Radiologists in Ultrasound Consensus Conference Radiology 2003; 229;340-346. This study does indirectly reference the measurement of the distal ICA diameter as the denominator for stenosis measurement. Normal antegrade flow in the vertebral arteries bilaterally. Mild to moderate calcific plaque bilaterally, left greater than right. * 11/19/18 CT BRAIN: CT of the brain yesterday revealed new 8 mm infarct in the left thalamus no acute intracranial hemorrhage. Please see full note in the chart * 11/08/18 CXR: Worsening diffuse bilateral reticular nodular infiltrates. PHYSICAL EXAMINATION = GENERAL: VSS, NAD HEENT: AT, NC, NECK: Supple, CHEST: Rise symmetrical HEART: Pulse RRR ABDOMEN: Benign EXTREMITIES: Warm, dry == left foot DSG C/D/I SKIN: No rash, no diaphoresis ID ASSESSMENT 72 yo M admit with: 1. Left foot gangrene * POD #1-> s/p 11/22/18 FOOT DEBRIDEMENT * WOUND CULTURE Preliminary No growth after 1 day 2. Peripheral arterial disease * POD #-> S/P 11/08/18 Left femoral endarterectomy w/Left iliofemoral bypass, and Left femoral->posterior tibial bypass 3. Diffuse pulmonary infiltrates == DDx CHF (STG I diastolic HF) w/possible superimposed HCAP * Per discussion w/Dr Ardon CT shares appearance of septic emboli 4. Hypertension w/HTN heart disease 5. Diabetes w/complications of peripheral neuropathy, vasculopathy 6. History of left foot second toe amputation 7. Acute kidney injury due to "NAVID" contrast induced necropathy post angiogram 8. Acute encephalopathy w/CT & MRI findings of new CVA superimposed on old prior infarcts 9. Bilateral mastoiditis (-)MRSA Nares ABX ALLERGIES: KNDA INVASIVES: PIV CURRENT ABX: DAY # => Levaquin + Merrem + Diflucan s/p Daptomycin + Ceftriaxone ID RECOMMENDATIONS/PLAN: 1. Continue current ABX -- follow APC recommendations 2. Will f/u on final wound cx pending . Consultation Date/Type/Reason Admit Date/Time Nov 04, 2018 at 07:34 Initial Consult Date Requesting Provider: KARL WOOD MD Date/Time of Note DATE: 11/24/18 TIME: 12:52 Exam/Review of Systems Exam Vitals Vital Signs Date Temp Pulse Resp B/P (MAP) Pulse Ox O2 O2 Flow FiO2 Time Delivery Rate 11/24/18 97.8 88 18 109/60 96 08:00 (76) 11/24/18 Nasal 5.0 08:00 Cannula Intake and Output 11/23/18 11/23/18 11/24/18 1515:00 23:00 07:00 IntakeIntake Total 575 ml 525 ml 60 ml OutputOutput Total 1200 ml 1100 ml BalanceBalance 575 ml -675 ml -1040 ml Results Result Diagram: 11/24/18 0625 11/24/18 0625 Results 24hrs Laboratory Tests Test 11/23/18 16:58 11/23/18 20:46 11/24/18 00:51 11/24/18 05:45 Bedside Glucose 185 163 162 177 Test 11/24/18 06:25 11/24/18 08:17 11/24/18 12:10 White Blood Count 11.2 H Red Blood Count 3.59 L Hemoglobin 10.6 L Hematocrit 33.2 L Mean Corpuscular Volume 92.5 Mean Corpuscular 29.5 Hemoglobin Mean Corpuscular 31.9 L Hemoglobin Concent Red Cell Distribution 13.2 Width Platelet Count 308 Mean Platelet Volume 11.1 H Immature Granulocytes % 0.800 H Neutrophils % 72.0 Lymphocytes % 12.3 L Monocytes % 10.6 Eosinophils % 4.1 Basophils % 0.2 Nucleated Red Blood 0.0 Cells % Immature Granulocytes # 0.090 H Neutrophils # 8.1 H Lymphocytes # 1.4 Monocytes # 1.2 H Eosinophils # 0.5 Basophils # 0.0 Nucleated Red Blood 0.0 Cells # Sodium Level 139 Potassium Level 3.6 Chloride Level 105 Carbon Dioxide Level 30 Anion Gap 4 L Blood Urea Nitrogen 24 H Creatinine 0.91 Est Glomerular Filtrat Rate mL/min Glucose Level 186 Calcium Level 8.0 L Phosphorus Level 2.7 Magnesium Level 2.0 Bedside Glucose 193 262 H Medications Medication Current Medications Ergocalciferol (Drisdol) 50,000 unit Sa PO Last administered on 11/23/18 17:10; Admin Dose 50,000 UNIT; Start 11/09/18 at 09:00 Miscellaneous Medication (Bystolic) 20 mg DAILY PO Last administered on 11/11/18 09:03; Admin Dose 20 MG; Start 11/04/18 at 09:00; Status Hold Clonidine (Catapres) 0.1 mg Q6H PRN PO SBP>160 Last administered on 11/19/18at 03:04; Admin Dose 0.1 MG; Start 11/04/18 at 09:00 IV Flush (NS 3 ml) 3 ml PER PROTOCOL IV ; Start 11/04/18 at 09:00 Ondansetron HCl (Zofran Inj) 4 mg Q6H PRN IV NAUSEA/VOMITING; Start 11/04/18 at 09:00 Acetaminophen (Tylenol Tab) 650 mg Q6H PRN PO .PAIN 1-3 OR TEMP; Start 11/04/18 at 09:00 Miscellaneous Information 1 ea NOTE XX ; Start 11/04/18 at 09:00 Glucose (Glutose) 15 gm Q15M PRN PO DECREASED GLUCOSE; Start 11/04/18 at 09:00 Glucose (Glutose) 22.5 gm Q15M PRN PO DECREASED GLUCOSE; Start 11/04/18 at 09:00 Dextrose (D50w Syringe) 25 ml Q15M PRN IV DECREASED GLUCOSE; Start 11/04/18 at 09:00 Dextrose (D50w Syringe) 50 ml Q15M PRN IV DECREASED GLUCOSE; Start 11/04/18 at 09:00 Glucagon (Glucagen) 1 mg Q15M PRN IM DECREASED GLUCOSE; Start 11/04/18 at 09:00 Glucose (Glutose) 15 gm Q15M PRN BUCCAL DECREASED GLUCOSE; Start 11/04/18 at 09:00 Miscellaneous Information Patients own medicat... BID@ XX Last administe red on 11/20/18at 16:16; Admin Dose 1 EA; Start 11/04/18 at 16:00 Povidone Iodine (Povidone-Iodine) 1 applic BID TOP Last administered on 11/21/18at 21:00; Admin Dose 1 APPLIC; Start 11/05/18 at 21:00 Sodium Hypochlorite (Dakins Diluted (1/40)) 1 applic BID TP Last administered on 11/22/18 01:50; Admin Dose 1 APPLIC; Start 11/07/18 at 09:00 Hydralazine HCl (Apresoline) 10 mg Q4H PRN IV sbp >160 Last administered on 11/20/18 14:44; Admin Dose 10 MG; Start 11/08/18 at 09:00 Famotidine (Pepcid) 20 mg DAILY NGT Last administered on 11/24/18 09:00; Admin Dose 20 MG; Start 11/11/18 at 09:30 Atropine Sulfate (Atropine) 0.5 mg PRN PRN IV SYMPTOMATIC BRADYCARDIA; Start 11/11/18 at 23:00 Heparin Sodium (Porcine) (Heparin (5000 Units/1ml)) 5,000 unit BID SC Last administered on 11/24/18 08:55; Admin Dose 5,000 UNIT; Start 11/14/18 at 21:00 Bisacodyl (Dulcolax Supp) 10 mg DAILY PRN [place] CONSTIPATION Last administered on 11/14/18 16:43; Admin Dose 10 MG; Start 11/14/18 at 16:30 Dextrose (D50w Syringe) 25 ml Q15M PRN IV .DECREASED GLUCOSE; Start 11/15/18 at 06:30 Dextrose (D50w Syringe) 50 ml Q15M PRN IV .DECREASED GLUCOSE; Start 11/15/18 at 06:30 Meropenem/Sodium Chloride 50 ml @ 100 mls/hr Q12 IVPB Last administered on 11/24/18 08:44; Admin Dose 100 MLS/HR; Start 11/15/18 at 14:30 IV Flush (NS 10 ml) 10 ml PRN PRN IV FLUSH LINE; Start 11/15/18 at 15:30 Fluconazole (Diflucan) 100 mg DAILY PO Last administered on 11/24/18 08:48; Admin Dose 100 MG; Start 11/16/18 at 14:00 Polyethylene Glycol (Miralax) 17 gm DAILY PRN NGT constipation; Start 11/17/18 at 09:00 Senna/Docusate Sodium (Senokot-S) 1 tab BID PRN NGT constipation; Start 11/17/18 at 09:00 Gabapentin (Neurontin Liquid) 300 mg BID PO Last administered on 11/24/18 08:44; Admin Dose 300 MG; Start 11/18/18 at 21:00 Hydralazine HCl (Apresoline) 100 mg TID PO Last administered on 11/24/18 08:45; Admin Dose 100 MG; Start 11/18/18 at 21:00 Levofloxacin (Levaquin) 250 mg DAILY@06 PO Last administered on 11/24/18 06:12; Admin Dose 250 MG; Start 11/19/18 at 06:00 Diagnostic Test (Pha) (Accu-Chek) 1 ea 02 XX ; Start 11/20/18 at 02:00 Insulin Aspart (Novolog Insulin Pen) NOVOLOG *MODERATE* ALGORI... Q4 SC Last administered on 11/24/18 12:14; Admin Dose 8 UNIT; Start 11/19/18 at 09:00 Labetalol HCl (Labetalol) 10 mg Q4H PRN IV sbp >160 Last administered on 11/19/18 19:13; Admin Dose 10 MG; Start 11/19/18 at 10:00 Ascorbic Acid (Vitamin C) 500 mg DAILY PO Last administered on 11/24/18 08:44; Admin Dose 500 MG; Start 11/20/18 at 09:00 Zinc Sulfate (Zinc Sulfate) 220 mg DAILY PO Last administered on 11/24/18 08:44; Admin Dose 220 MG; Start 11/20/18 at 09:00 Atorvastatin Calcium (Lipitor) 80 mg QHS PO Last administered on 11/23/18 20:34; Admin Dose 80 MG; Start 11/19/18 at 21:00 Amlodipine Besylate (Norvasc) 5 mg BID PO Last administered on 11/24/18 08:45; Admin Dose 5 MG; Start 11/20/18 at 21:00 Aspirin (Aspirin) 81 mg DAILY GTB Last administered on 11/24/18 08:44; Admin Dose 81 MG; Start 11/21/18 at 09:00 Furosemide (Lasix) 40 mg DAILY PO Last administered on 11/24/18 08:49; Admin Dose 40 MG; Start 11/21/18 at 09:00 Lisinopril (Zestril) 5 mg DAILY PO Last administered on 11/24/18 08:45; Admin Dose 5 MG; Start 11/21/18 at 09:00 Insulin Glargine (Lantus) 25 units DAILY@0800 SC Last administered on 11/24/18 08:55; Admin Dose 25 UNITS; Start 11/22/18 at 08:00 Dextrose/Sodium Chloride 1,000 ml @ 20 mls/hr Q24H IV Last administered on 11/24/18 00:56; Admin Dose 75 MLS/HR; Start 11/22/18 at 08:30 Quetiapine Fumarate (Seroquel) 25 mg BID PO Last administered on 11/24/18 08:45; Admin Dose 25 MG; Start 11/22/18 at 21:00 Lorazepam (Ativan) 0.5 mg Q6H PRN IV anxiety/agitation Last administered on 11/22/18 19:32; Admin Dose 0.5 MG; Start 11/22/18 at 11:00 Clopidogrel Bisulfate (plaVIX) 75 mg DAILY PO Last administered on 11/24/18 08:44; Admin Dose 75 MG; Start 11/23/18 at 09:00 Haloperidol (Haldol) 5 mg Q12H PRN IM agitation Last administered on 11/22/18 19:44; Admin Dose 5 MG; Start 11/22/18 at 14:30 NESS MUNOZ NP Nov 24, 2018 12:54
--- NOTE | 2018-11-24 13:44 | PN ---
Date/Time of Note Date/Time of Note DATE: 11/24/18 TIME: 13:42 Objective Vitals Vital Signs Date Temp Pulse Resp B/P (MAP) Pulse Ox O2 O2 Flow FiO2 Time Delivery Rate 11/24/18 97.8 88 18 109/60 96 08:00 (76) 11/24/18 Nasal 5.0 08:00 Cannula Intake and Output 11/23/18 11/23/18 11/24/18 1515:00 23:00 07:00 IntakeIntake Total 575 ml 525 ml 60 ml OutputOutput Total 1200 ml 1100 ml BalanceBalance 575 ml -675 ml -1040 ml Results Result Diagram: 11/24/1862411/24/18624 Medications Medications Current Medications Ergocalciferol (Drisdol) 50,000 unit Sa PO Last administered on 11/23/18at 17:10; Admin Dose 50,000 UNIT; Start 11/09/18 at 09:00 Miscellaneous Medication (Bystolic) 20 mg DAILY PO Last administered on 11/11/18at 09:03; Admin Dose 20 MG; Start 11/04/18 at 09:00; Status Hold Clonidine (Catapres) 0.1 mg Q6H PRN PO SBP>160 Last administered on 11/19/18at 03:04; Admin Dose 0.1 MG; Start 11/04/18 at 09:00 IV Flush (NS 3 ml) 3 ml PER PROTOCOL IV ; Start 11/04/18 at 09:00 Ondansetron HCl (Zofran Inj) 4 mg Q6H PRN IV NAUSEA/VOMITING; Start 11/04/18 at 09:00 Acetaminophen (Tylenol Tab) 650 mg Q6H PRN PO .PAIN 1-3 OR TEMP; Start 11/04/18 at 09:00 Miscellaneous Information 1 ea NOTE XX ; Start 11/04/18 at 09:00 Glucose (Glutose) 15 gm Q15M PRN PO DECREASED GLUCOSE; Start 11/04/18 at 09:00 Glucose (Glutose) 22.5 gm Q15M PRN PO DECREASED GLUCOSE; Start 11/04/18 at 09:00 Dextrose (D50w Syringe) 25 ml Q15M PRN IV DECREASED GLUCOSE; Start 11/04/18 at 09:00 Dextrose (D50w Syringe) 50 ml Q15M PRN IV DECREASED GLUCOSE; Start 11/04/18 at 09:00 Glucagon (Glucagen) 1 mg Q15M PRN IM DECREASED GLUCOSE; Start 11/04/18 at 09:00 Glucose (Glutose) 15 gm Q15M PRN BUCCAL DECREASED GLUCOSE; Start 11/04/18 at 09:00 Miscellaneous Information Patients own medicat... BID@10,16 XX Last administered on 11/20/18 16:16; Admin Dose 1 EA; Start 11/04/18 at 16:00 Povidone Iodine (Povidone-Iodine) 1 applic BID TOP Last administered on 11/21/18 21:00; Admin Dose 1 APPLIC; Start 11/05/18 at 21:00 Sodium Hypochlorite (Dakins Diluted ()) 1 applic BID TP Last administered on 11/22/18 01:50; Admin Dose 1 APPLIC; Start 11/07/18 at 09:00 Hydralazine HCl (Apresoline) 10 mg Q4H PRN IV sbp >160 Last administered on 11/20/18 14:44; Admin Dose 10 MG; Start 11/08/18 at 09:00 Famotidine (Pepcid) 20 mg DAILY NGT Last administered on 11/24/18 09:00; Admin Dose 20 MG; Start 11/11/18 at 09:30 Atropine Sulfate (Atropine) 0.5 mg PRN PRN IV SYMPTOMATIC BRADYCARDIA; Start 11/11/18 at 23:00 Heparin Sodium (Porcine) (Heparin (5000 Units/1ml)) 5,000 unit BID SC Last administered on 11/24/18 08:55; Admin Dose 5,000 UNIT; Start 11/14/18 at 21:00 Bisacodyl (Dulcolax Supp) [address] CONSTIPATION Last administered on 11/14/18 16:43; Admin Dose 10 MG; Start 11/14/18 at 16:30 Dextrose (D50w Syringe) 25 ml Q15M PRN IV .DECREASED GLUCOSE; Start 11/15/18 at 06:30 Dextrose (D50w Syringe) 50 ml Q15M PRN IV .DECREASED GLUCOSE; Start 11/15/18 at 06:30 Meropenem/Sodium Chloride 50 ml @ 100 mls/hr Q12 IVPB Last administered on 11/24/18 08:44; Admin Dose 100 MLS/HR; Start 11/15/18 at 14:30 IV Flush (NS 10 ml) 10 ml PRN PRN IV FLUSH LINE; Start 11/15/18 at 15:30 Fluconazole (Diflucan) 100 mg DAILY PO Last administered on 11/24/18 08:48; Admin Dose 100 MG; Start 11/16/18 at 14:00 Polyethylene Glycol (Miralax) 17 gm DAILY PRN NGT constipation; Start 11/17/18 at 09:00 Senna/Docusate Sodium (Senokot-S) 1 tab BID PRN NGT constipation; Start 11/17/18 at 09:00 Gabapentin (Neurontin Liquid) 300 mg BID PO Last administered on 11/24/18 08:44; Admin Dose 300 MG; Start 11/18/18 at 21:00 Hydralazine HCl (Apresoline) 100 mg TID PO Last administered on 11/24/18 13:35; Admin Dose 100 MG; Start 11/18/18 at 21:00 Levofloxacin (Levaquin) 250 mg DAILY@06 PO Last administered on 11/24/18 06:12; Admin Dose 250 MG; Start 11/19/18 at 06:00 Diagnostic Test (Pha) (Accu-Chek) 1 ea 02 XX ; Start 11/20/18 at 02:00 Insulin Aspart (Novolog Insulin Pen) NOVOLOG *MODERATE* ALGORI... Q4 SC Last administered on 11/24/18 12:14; Admin Dose 8 UNIT; Start 11/19/18 at 09:00 Labetalol HCl (Labetalol) 10 mg Q4H PRN IV sbp >160 Last administered on 11/19/18 19:13; Admin Dose 10 MG; Start 11/19/18 at 10:00 Ascorbic Acid (Vitamin C) 500 mg DAILY PO Last administered on 11/24/18 08:44; Admin Dose 500 MG; Start 11/20/18 at 09:00 Zinc Sulfate (Zinc Sulfate) 220 mg DAILY PO Last administered on 11/24/18 08:44; Admin Dose 220 MG; Start 11/20/18 at 09:00 Atorvastatin Calcium (Lipitor) 80 mg QHS PO Last administered on 11/23/18 20:34; Admin Dose 80 MG; Start 11/19/18 at 21:00 Amlodipine Besylate (Norvasc) 5 mg BID PO Last administered on 11/24/18 08:45; Admin Dose 5 MG; Start 11/20/18 at 21:00 Aspirin (Aspirin) 81 mg DAILY GTB Last administered on 11/24/18 08:44; Admin Dose 81 MG; Start 11/21/18 at 09:00 Furosemide (Lasix) 40 mg DAILY PO Last administered on 11/24/18 08:49; Admin Dose 40 MG; Start 11/21/18 at 09:00 Lisinopril (Zestril) 5 mg DAILY PO Last administered on 11/24/18 08:45; Admin Dose 5 MG; Start 11/21/18 at 09:00 Insulin Glargine (Lantus) 25 units DAILY@0800 SC Last administered on 11/24/18 08:55; Admin Dose 25 UNITS; Start 11/22/18 at 08:00 Dextrose/Sodium Chloride 1,000 ml @ 20 mls/hr Q24H IV Last administered on 11/24/18 00:56; Admin Dose 75 MLS/HR; Start 11/22/18 at 08:30 Quetiapine Fumarate (Seroquel) 25 mg BID PO Last administered on 11/24/18 08:45; Admin Dose 25 MG; Start 11/22/18 at 21:00 Lorazepam (Ativan) 0.5 mg Q6H PRN IV anxiety/agitation Last administered on 11/22/18 19:32; Admin Dose 0.5 MG; Start 11/22/18 at 11:00 Clopidogrel Bisulfate (plaVIX) 75 mg DAILY PO Last administered on 11/24/18 08:44; Admin Dose 75 MG; Start 11/23/18 at 09:00 Haloperidol (Haldol) 5 mg Q12H PRN IM agitation Last administered on 11/22/18 19:44; Admin Dose 5 MG; Start 11/22/18 at 14:30 VTE Prophylaxis Risk score (from Ns)>0 risk: 8 SCD applied (from Ns): Yes Lines/Catheters IV Catheter Type: Vora in Place: No Assessment/Plan Hospital Course Subjective Patient mental status significantly improved compared to yesterday Objective Physical exam General: Patient is laying in bed responding to questions Mentation: Patient is alert and oriented x2 Head: Normocephalic atraumatic Eyes: EOMI, pupils reactive to light Neck: Supple, nontender, midline Respiratory: Coarse to auscultation bilaterally Cardiovascular: regular rate, no obvious murmurs Gastrointestinal: non-tender to palpation, bowel sounds heard. Neurological: Moves all extremities spontaneously Skin: No new skin lesions, surgical site bandaged, CDI assessment/Plan Acute encephalopathy, resolving -Highly likely delirium as patient's condition is resolving -Neurology consulted -MRI noted for small CVA -psych saw patient, likely delirium, continue on seroquel Left frontal CVA -Discussed with neurology, small CVA -Aspirin and Plavix already on board due to vascular disease -Statin left-sided internal carotid artery stenosis -25% per CT angiogram, continue aspirin, statin, Plavix per vascular surgeon Acute hypoxic respiratory failure-resolving -Extubated, doing well - CT chest without contrast results noted - Pulmonology on board for vent management Cardiac arrest s/p ROSC - Cardiology on board and appreciate recommendations - ECHO with preserved EF left fifth toe gangrenous ulcer - ID on board and appreciate consultation. Will continue current antibiotics - Continue local wound care - Podiatry on board and will plan for further amputation in the near future once stable Severe peripheral vascular disease - s/p left femoral endarterectomy, iliofemoral bypass and femoral to posterior tibial bypass done on November 08, 2018 - Vascular surgery consultation appreciated -Continue aspirin and Plavix Diabetes Mellitus - A1c noted - insulin as needed Acute kidney injury- improving - nephrology consultation appreciated and most likely due to contrast induced nephropathy as well as cardiorenal. managing diuretics - continue monitoring and avoid nephrotoxic agents Essential HTN -Continue home medications at this time - BP stable Peripheral neuropathy - cont. gabapentin HLD - On statin Chronic anemia - Stable H&H. Monitor - no need for transfusions at this time Urinary retention - Urology on board and appreciate recommendations. Disposition -Continue to monitor closely for acute delirium, sedate as needed, however this is significantly improved, plans per fred Pedroza is to look for [facility] facility versus acute rehab unit for patient. No further plans per podiatry or vascular surgeon. FRANTZ SCHWAB Nov 24, 2018 13:44
[2018-11-24 14:00] VITALS: BP 105/58; PULSE 80; RESP 18
[2018-11-24 15:32] VITALS: BP 112/63; PULSE 78; RESP 17
[2018-11-24 20:00] VITALS: BP 102/52; PULSE 82; RESP 18
[2018-11-24] MEDS: ATORVASTATIN 80 MG TAB PO SCH (20:57)
[2018-11-25] VITALS: BP 92/53; PULSE 75; RESP 19
[2018-11-25] MEDS: INSULIN ASPART [NOVOLOG] 3 ML PEN SC SCH ×6 (01:15→22:09)
[2018-11-25] MEDS: ACCU-CHEK XX SCH (01:21)
[2018-11-25 04:00] VITALS: BP 104/54; PULSE 82; RESP 18
[2018-11-25] MEDS: LEVOFLOXACIN 250 MG TAB PO SCH (05:13)
[2018-11-25] MEDS: ACETAMINOPHEN 325 MG TAB PO PRN (05:38)
[2018-11-25 07:39] VITALS: BP 108/54; PULSE 81; RESP 16
--- NOTE | 2018-11-25 08:27 | PN ---
DATE: 11/25/2018 SUBJECTIVE: The patient is stable. No events overnight. The patient remains confused. OBJECTIVE: VITAL SIGNS: Blood pressure 108/54, pulse 81, respirations 16, temperature 98.5. HEENT: Head is normocephalic. NECK: Supple. HEART: Regular rate. LUNGS: Show diminished breath sounds at the base. ABDOMEN: Soft, nontender to palpation without rebound or guarding. EXTREMITIES: Negative for clubbing, cyanosis, no edema. DERMATOLOGIC: No rashes. MUSCULOSKELETAL: No effusion. NEUROLOGIC: No change in exam. MEDICATIONS: The patient's medications have been reviewed. LABORATORY DATA: Has been reviewed. IMAGING STUDIES: Reviewed. ASSESSMENT AND PLAN: 1. Nonoliguric acute kidney injury. Etiology is secondary to hemodynamics, tubular injury. Renal f unction has improved. Continue to monitor. 2. Volume overload secondary to acute diastolic heart failure, acute kidney injury. The patient is clinically euvolemic. IV fluids were deescalated. Continue to monitor. Continue diuretic regimen. 3. Anemia. Monitor hemoglobin and hematocrit levels. 4. Mineral bone disorder. Monitor calcium and phosphorus levels. 5. Respiratory failure, status post extubation. The patient is currently stable. Continue to monit or. 6. Arrhythmia. Continue to monitor. Follow up with Cardiology. 7. Peripheral vascular disease, status post iliofemoral bypass. 8. Left toe gangrene, status post amputation. 9. Hypertension. Continue current blood pressure regimen. 10. Acute encephalopathy, etiology is toxic metabolic. 11. Dyslipidemia. Continue statin therapy. 12. Status post cardiac arrest. Dictated By: JEAN CLAUDE LARIOS DO NR/NTS Conf#: [id number] DID#: [id number] CC: FRANTZ SCHWAB MD; TOMASA SCOTT; JAYLEEN BUNN MD;*EndCC*
[2018-11-25] MEDS: FLUCONAZOLE 100 MG TAB PO SCH (08:43)
[2018-11-25] MEDS: CLOPIDOGREL 75 MG TAB PO SCH (08:43)
[2018-11-25] MEDS: QUETIAPINE 25 MG TAB PO SCH ×2 (08:43→20:36)
[2018-11-25] MEDS: FUROSEMIDE 40 MG TAB PO SCH (08:44)
[2018-11-25] MEDS: FAMOTIDINE 20 MG TAB NGT SCH (08:44)
[2018-11-25] MEDS: ASCORBIC ACID 500 MG TAB PO SCH (08:44)
[2018-11-25] MEDS: ASPIRIN 81 MG TAB GTB SCH (08:44)
[2018-11-25] MEDS: ZINC SULFATE 220 MG CAP PO SCH (08:44)
[2018-11-25] MEDS: MEROPENEM 500MG/50 ML (PMX) 50 ML IVPB SCH ×2 (08:45→20:35)
[2018-11-25] MEDS: LISINOPRIL 5 MG TAB PO SCH (08:45)
[2018-11-25] MEDS: AMLODIPINE 5 MG TAB PO SCH (08:45)
[2018-11-25] MEDS: DAKINS 0.0125%(1/40) 473 ML SOLUTION TP SCH ×2 (08:46→20:50)
[2018-11-25] MEDS: POVIDONE IODINE 10% 28.4 GM OINT TOP SCH ×2 (08:47→20:49)
[2018-11-25] MEDS: GABAPENTIN (50 MG/ML PO SYG) PO SCH ×2 (08:49→20:36)
[2018-11-25] MEDS: HEPARIN 5,000 UNIT/1 ML VIAL SC SCH ×2 (09:06→20:42)
[2018-11-25] MEDS: INSULIN GLARGINE [LANTus] (100 UNITS/ML) SYG SC SCH (09:06)
--- NOTE | 2018-11-25 10:40 | CONS ---
Assessment/Plan Assessment/Plan Assessment/Plan (Daily) Assessment and recommendations; 1. Patient status post cardiac arrest with ARDS with marked overall interval improvement. 2. Peripheral vascular disease, status post left foot surgery as well as left femoropopliteal bypass. 3. History of hypertension, anemia, diabetes, neuropathy. 4. Persistent hypoxemia, clinically improving though. Continue current supportive care. Wean down FiO2 as tolerated. Consider discharge. Consultation Date/Type/Reason Admit Date/Time Nov 04, 2018 at 07:34 Initial Consult Date 11/11/18 Type of Consult Pulmonary Patient condition is stable. Denies any chest pain, shortness of breath. General exam; elderly male, awake alert, currently in no distress. On 5 L nasal cannula. Reason for Consultation H EENT exam; supple neck, no JVD. No lymphadenopathy. Midline trachea. No thyromegaly. Patient has fair dentition. No neck masses. Chest exam; diminished but clear breath sounds. S1-S2 audible, no murmurs. Regular rhythm. Abdomen exam; soft, no organomegaly. Nontender. Bowel sounds audible. Extremity exam; dressing applied to left foot. Surgical gurpreet are healing well in left thigh area. No peripheral edema. [employer] exam; no focal deficit. Requesting Provider: KARL WOOD MD Date/Time of Note DATE: 11/25/18 TIME: 10:38 Exam/Review of Systems Exam Vitals Vital Signs Date Temp Pulse Resp B/P (MAP) Pulse Ox O2 O2 Flow FiO2 Time Delivery Rate 11/25/18 Nasal 3.0 08:30 Cannula 11/25/18 98.5 81 16 108/54 92 07:39 (72) Intake and Output 11/24/18 11/24/18 11/25/18 1515:00 23:00 07:00 IntakeIntake Total 200 ml 120 ml OutputOutput Total 1450 ml 500 ml BalanceBalance -1250 ml -380 ml Results Result Diagram: 11/25/18 0653 11/25/18 0653 Results 24hrs Laboratory Tests Test 11/24/18 12:10 11/24/18 16:59 11/24/18 21:22 11/25/18 01:10 Bedside Glucose 262 H 131 296 H 197 Test 11/25/18 05:11 11/25/18 06:43 11/25/18 06:53 11/25/18 08:29 Bedside Glucose 65 L 86 123 White Blood Count 10.6 Red Blood Count 3.45 L Hemoglobin 10.4 L Hematocrit 32.0 L Mean Corpuscular Volume 92.8 Mean Corpuscular 30.1 Hemoglobin Mean Corpuscular 32.5 Hemoglobin Concent Red Cell Distribution 13.4 Width Platelet Count 300 Mean Platelet Volume 11.7 H Immature Granulocytes % 0.700 H Neutrophils % 74.9 Lymphocytes % 11.1 L Monocytes % 9.0 Eosinophils % 4.1 Basophils % 0.2 Nucleated Red Blood 0.0 Cells % Immature Granulocytes # 0.070 H Neutrophils # 7.9 H Lymphocytes # 1.2 Monocytes # 1.0 H Eosinophils # 0.4 Basophils # 0.0 Nucleated Red Blood 0.0 Cells # Sodium Level 139 Potassium Level 3.7 Chloride Level 105 Carbon Dioxide Level 29 Anion Gap 5 Blood Urea Nitrogen 27 H Creatinine 0.93 Est Glomerular Filtrat Rate mL/min Glucose Level 64 #L Calcium Level 7.9 L Phosphorus Level 2.3 L Magnesium Level 2.0 Medications Medication Current Medications Ergocalciferol (Drisdol) 50,000 unit Sa PO Last administered on 11/23/18at 17:10; Admin Dose 50,000 UNIT; Start 11/09/18 at 09:00 Miscellaneous Medication (Bystolic) 20 mg DAILY PO Last administered on 11/11/18 09:03; Admin Dose 20 MG; Start 11/04/18 at 09:00; Status Hold Clonidine (Catapres) 0.1 mg Q6H PRN PO SBP>160 Last administered on 11/19/18 03:04; Admin Dose 0.1 MG; Start 11/04/18 at 09:00 IV Flush (NS 3 ml) 3 ml PER PROTOCOL IV ; Start 11/04/18 at 09:00 Ondansetron HCl (Zofran Inj) 4 mg Q6H PRN IV NAUSEA/VOMITING; Start 11/04/18 at 09:00 Acetaminophen (Tylenol Tab) 650 mg Q6H PRN PO .PAIN 1-3 OR TEMP Last administered on 11/25/18at 05:38; Admin Dose 650 MG; Start 11/04/18 at 09:00 Miscellaneous Information 1 ea NOTE XX ; Start 11/04/18 at 09:00 Glucose (Glutose) 15 gm Q15M PRN PO DECREASED GLUCOSE; Start 11/04/18 at 09:00 Glucose (Glutose) 22.5 gm Q15M PRN PO DECREASED GLUCOSE; Start 11/04/18 at 09:00 Dextrose (D50w Syringe) 25 ml Q15M PRN IV DECREASED GLUCOSE; Start 11/04/18 at 09:00 Dextrose (D50w Syringe) 50 ml Q15M PRN IV DECREASED GLUCOSE; Start 11/04/18 at 09:00 Glucagon (Glucagen) 1 mg Q15M PRN IM DECREASED GLUCOSE; Start 11/04/18 at 09:00 Glucose (Glutose) 15 gm Q15M PRN BUCCAL DECREASED GLUCOSE; Start 11/04/18 at 09:00 Miscellaneous Information Patients own medicat... BID@10,16 XX Last administered on 11/20/18 16:16; Admin Dose 1 EA; Start 11/04/18 at 16:00 Povidone Iodine (Povidone-Iodine) 1 applic BID TOP Last administered on 11/25/18 08:47; Admin Dose 1 APPLIC; Start 11/05/18 at 21:00 Sodium Hypochlorite (Dakins Diluted (40)) 1 applic BID TP Last administered on 11/25/18 08:46; Admin Dose 1 APPLIC; Start 11/07/18 at 09:00 Hydralazine HCl (Apresoline) 10 mg Q4H PRN IV sbp >160 Last administered on 11/20/18 14:44; Admin Dose 10 MG; Start 11/08/18 at 09:00 Famotidine (Pepcid) 20 mg DAILY NGT Last administered on 11/25/18 08:44; Admin Dose 20 MG; Start 11/11/18 at 09:30 Atropine Sulfate (Atropine) 0.5 mg PRN PRN IV SYMPTOMATIC BRADYCARDIA; Start 11/11/18 at 23:00 Heparin Sodium (Porcine) (Heparin (5000 Units/1ml)) 5,000 unit BID SC Last administered on 11/25/18 09:06; Admin Dose 5,000 UNIT; Start 11/14/18 at 21:00 Bisacodyl (Dulcolax Supp) 10 mg DAILY PRN [place] CONSTIPATION Last administered on 11/14/18 16:43; Admin Dose 10 MG; Start 11/14/18 at 16:30 Dextrose (D50w Syringe) 25 ml Q15M PRN IV .DECREASED GLUCOSE; Start 11/15/18 at 06:30 Dextrose (D50w Syringe) 50 ml Q15M PRN IV .DECREASED GLUCOSE; Start 11/15/18 at 06:30 Meropenem/Sodium Chloride 50 ml @ 100 mls/hr Q12 IVPB Last administered on 11/25/18 08:45; Admin Dose 100 MLS/HR; Start 11/15/18 at 14:30 IV Flush (NS 10 ml) 10 ml PRN PRN IV FLUSH LINE; Start 11/15/18 at 15:30 Fluconazole (Diflucan) 100 mg DAILY PO Last administered on 11/25/18 08:43; Admin Dose 100 MG; Start 11/16/18 at 14:00 Polyethylene Glycol (Miralax) 17 gm DAILY PRN NGT constipation; Start 11/17/18 at 09:00 Senna/Docusate Sodium (Senokot-S) 1 tab BID PRN NGT constipation; Start 11/17/18 at 09:00 Gabapentin (Neurontin Liquid) 300 mg BID PO Last administered on 11/25/18 08:49; Admin Dose 300 MG; Start 11/18/18 at 21:00 Hydralazine HCl (Apresoline) 100 mg TID PO Last administered on 11/25/18 08:45; Admin Dose 100 MG; Start 11/18/18 at 21:00 Levofloxacin (Levaquin) 250 mg DAILY@06 PO Last administered on 11/25/18 05:13; Admin Dose 250 MG; Start 11/19/18 at 06:00 Diagnostic Test (Pha) (Accu-Chek) 1 ea 02 XX ; Start 11/20/18 at 02:00 Insulin Aspart (Novolog Insulin Pen) NOVOLOG *MODERATE* ALGORI... Q4 SC Last administered on 11/25/18 01:15; Admin Dose 4 UNIT; Start 11/19/18 at 09:00 Labetalol HCl (Labetalol) 10 mg Q4H PRN IV sbp >160 Last administered on 11/19/18 19:13; Admin Dose 10 MG; Start 11/19/18 at 10:00 Ascorbic Acid (Vitamin C) 500 mg DAILY PO Last administered on 11/25/18 08:44; Admin Dose 500 MG; Start 11/20/18 at 09:00 Zinc Sulfate (Zinc Sulfate) 220 mg DAILY PO Last administered on 11/25/18 08:44; Admin Dose 220 MG; Start 11/20/18 at 09:00 Atorvastatin Calcium (Lipitor) 80 mg QHS PO Last administered on 11/24/18 20:57; Admin Dose 80 MG; Start 11/19/18 at 21:00 Amlodipine Besylate (Norvasc) 5 mg BID PO Last administered on 11/25/18 08:45; Admin Dose 5 MG; Start 11/20/18 at 21:00 Aspirin (Aspirin) 81 mg DAILY GTB Last administered on 11/25/18 08:44; Admin Dose 81 MG; Start 11/21/18 at 09:00 Furosemide (Lasix) 40 mg DAILY PO Last administered on 11/25/18 08:44; Admin Dose 40 MG; Start 11/21/18 at 09:00 Lisinopril (Zestril) 5 mg DAILY PO Last administered on 11/25/18 08:45; Admin Dose 5 MG; Start 11/21/18 at 09:00 Insulin Glargine (Lantus) 25 units DAILY@0800 SC Last administered on 11/25/18 09:06; Admin Dose 25 UNITS; Start 11/22/18 at 08:00 Dextrose/Sodium Chloride 1,000 ml @ 20 mls/hr Q24H IV Last administered on 11/24/18 17:00; Admin Dose 20 MLS/HR; Start 11/22/18 at 08:30 Quetiapine Fumarate (Seroquel) 25 mg BID PO Last administered on 11/25/18 08: 43; Admin Dose 25 MG; Start 11/22/18 at 21:00 Lorazepam (Ativan) 0.5 mg Q6H PRN IV anxiety/agitation Last administered on 11/22/18 19:32; Admin Dose 0.5 MG; Start 11/22/18 at 11:00 Clopidogrel Bisulfate (plaVIX) 75 mg DAILY PO Last administered on 11/25/18 08:43; Admin Dose 75 MG; Start 11/23/18 at 09:00 Haloperidol (Haldol) 5 mg Q12H PRN IM agitation Last administered on 7/5/19at 19:44; Admin Dose 5 MG; Start 11/22/18 at 14:30 JORGE RIOS Nov 25, 2018 10:40
--- NOTE | 2018-11-25 11:21 | CONS ---
Assessment/Plan Assessment/Plan Assessment/Plan (Recall) 72 M c/ multiple comorbidities, who initially presented for management of a limb wound.. Then on 11/11, he had a cardiac arrest that necessitated brief resuscitation and ultimate intubation.. Extubated on 11/18, he is noted to have an appreciable,though mild, encephalopathy...for which neurology is consulted.. He could have a subtle cognitive impairment at baseline, which has seen some decompensation in the context of acute illness requiring psychotropic medication exposure, etc... MRI brain is notable for a tiny left frontal subcortical infarction...and chronic lacunes. Recent TTE was unremarkable CTA was without significant L ICA stenosis. P: Agree w/ plavix daily for secondary stroke prevention [place] as necessary Limit sedating medications where possible Other management and supportive care per primary Will follow clinically Consultation Date/Type/Reason Admit Date/Time Nov 04, 2018 at 07:34 Type of Consult Neurology Reason for Consultation ams Requesting Provider: KARL WOOD MD Date/Time of Note DATE: 11/25/18 TIME: 11:20 24 HR Interval Summary Free Text/Dictation Continues acute care Exam/Review of Systems Exam Vitals Vital Signs Date Temp Pulse Resp B/P (MAP) Pulse Ox O2 O2 Flow FiO2 Time Delivery Rate 11/25/18 Nasal 3.0 08:30 Cannula 11/25/18 98.5 81 16 108/54 92 07:39 (72) Intake and Output 11/24/18 11/24/18 11/25/18 1515:00 23:00 07:00 IntakeIntake Total 200 ml 120 ml OutputOutput Total 1450 ml 500 ml BalanceBalance -1250 ml -380 ml Results Result Diagram: 11/25/18 0653 11/25/18 0653 Results 24hrs Laboratory Tests Test 11/24/18 12:10 11/24/18 16:59 11/24/18 21:22 11/25/18 01:10 Bedside Glucose 262 H 131 296 H 197 Test 11/25/18 05:11 11/25/18 06:43 11/25/18 06:53 11/25/18 08:29 Bedside Glucose 65 L 86 123 White Blood Count 10.6 Red Blood Count 3.45 L Hemoglobin 10.4 L Hematocrit 32.0 L Mean Corpuscular Volume 92.8 Mean Corpuscular 30.1 Hemoglobin Mean Corpuscular 32.5 Hemoglobin Concent Red Cell Distribution 13.4 Width Platelet Count 300 Mean Platelet Volume 11.7 H Immature Granulocytes % 0.700 H Neutrophils % 74.9 Lymphocytes % 11.1 L Monocytes % 9.0 Eosinophils % 4.1 Basophils % 0.2 Nucleated Red Blood 0.0 Cells % Immature Granulocytes # 0.070 H Neutrophils # 7.9 H Lymphocytes # 1.2 Monocytes # 1.0 H Eosinophils # 0.4 Basophils # 0.0 Nucleated Red Blood 0.0 Cells # Sodium Level 139 Potassium Level 3.7 Chloride Level 105 Carbon Dioxide Level 29 Anion Gap 5 Blood Urea Nitrogen 27 H Creatinine 0.93 Est Glomerular Filtrat Rate mL/min Glucose Level 64 #L Calcium Level 7.9 L Phosphorus Level 2.3 L Magnesium Level 2.0 Medications Medication Current Medications Ergocalciferol (Drisdol) 50,000 unit Sa PO Last administered on 11/23/18at 17:10; Admin Dose 50,000 UNIT; Start 11/09/18 at 09:00 Miscellaneous Medication (Bystolic) 20 mg DAILY PO Last administered on 11/11/18at 09:03; Admin Dose 20 MG; Start 11/04/18 at 09:00; Status Hold Clonidine (Catapres) 0.1 mg Q6H PRN PO SBP>160 Last administered on 11/19/18 03:04; Admin Dose 0.1 MG; Start 11/04/18 at 09:00 IV Flush (NS 3 ml) 3 ml PER PROTOCOL IV ; Start 11/04/18 at 09:00 Ondansetron HCl (Zofran Inj) 4 mg Q6H PRN IV NAUSEA/VOMITING; Start 11/04/18 at 09:00 Acetaminophen (Tylenol Tab) 650 mg Q6H PRN PO .PAIN 1-3 OR TEMP Last administered on 11/25/18at 05:38; Admin Dose 650 MG; Start 11/04/18 at 09:00 Miscellaneous Information 1 ea NOTE XX ; Start 11/04/18 at 09:00 Glucose (Glutose) 15 gm Q15M PRN PO DECREASED GLUCOSE; Start 11/04/18 at 09:00 Glucose (Glutose) 22.5 gm Q15M PRN PO DECREASED GLUCOSE; Start 11/04/18 at 09:00 Dextrose (D50w Syringe) 25 ml Q15M PRN IV DECREASED GLUCOSE; Start 11/04/18 at 09:00 Dextrose (D50w Syringe) 50 ml Q15M PRN IV DECREASED GLUCOSE; Start 11/04/18 at 09:00 Glucagon (Glucagen) 1 mg Q15M PRN IM DECREASED GLUCOSE; Start 11/04/18 at 09:00 Glucose (Glutose) 15 gm Q15M PRN BUCCAL DECREASED GLUCOSE; Start 11/04/18 at 0 9:00 Miscellaneous Information Patients own medicat... BID@10,16 XX Last administered on 11/20/18 16:16; Admin Dose 1 EA; Start 11/04/18 at 16:00 Povidone Iodine (Povidone-Iodine) 1 applic BID TOP Last administered on 11/25/18 08:47; Admin Dose 1 APPLIC; Start 11/05/18 at 21:00 Sodium Hypochlorite (Dakins Diluted ()) 1 applic BID TP Last administered on 11/25/18 08:46; Admin Dose 1 APPLIC; Start 11/07/18 at 09:00 Hydralazine HCl (Apresoline) 10 mg Q4H PRN IV sbp >160 Last administered on 11/20/18 14:44; Admin Dose 10 MG; Start 11/08/18 at 09:00 Famotidine (Pepcid) 20 mg DAILY NGT Last administered on 11/25/18 08:44; Admin Dose 20 MG; Start 11/11/18 at 09:30 Atropine Sulfate (Atropine) 0.5 mg PRN PRN IV SYMPTOMATIC BRADYCARDIA; Start 11/11/18 at 23:00 Heparin Sodium (Porcine) (Heparin (5000 Units/1ml)) 5,000 unit BID SC Last administered on 11/25/18 09:06; Admin Dose 5,000 UNIT; Start 11/14/18 at 21:00 Bisacodyl (Dulcolax Supp) 10 mg DAILY PRN [place] CONSTIPATION Last administered on 11/14/18 16:43; Admin Dose 10 MG; Start 11/14/18 at 16:30 Dextrose (D50w Syringe) 25 ml Q15M PRN IV .DECREASED GLUCOSE; Start 11/15/18 at 06:30 Dextrose (D50w Syringe) 50 ml Q15M PRN IV .DECREASED GLUCOSE; Start 11/15/18 at 06:30 Meropenem/Sodium Chloride 50 ml @ 100 mls/hr Q12 IVPB Last administered on 11/25/18 08:45; Admin Dose 100 MLS/HR; Start 11/15/18 at 14:30 IV Flush (NS 10 ml) 10 ml PRN PRN IV FLUSH LINE; Start 11/15/18 at 15:30 Fluconazole (Diflucan) 100 mg DAILY PO Last administered on 11/25/18 08:43; Admin Dose 100 MG; Start 11/16/18 at 14:00 Polyethylene Glycol (Miralax) 17 gm DAILY PRN NGT constipation; Start 11/17/18 at 09:00 Senna/Docusate Sodium (Senokot-S) 1 tab BID PRN NGT constipation; Start 11/17/18 at 09:00 Gabapentin (Neurontin Liquid) 300 mg BID PO Last administered on 11/25/18 08:49; Admin Dose 300 MG; Start 11/18/18 at 21:00 Hydralazine HCl (Apresoline) 100 mg TID PO Last administered on 11/25/18 08:45; Admin Dose 100 MG; Start 11/18/18 at 21:00 Levofloxacin (Levaquin) 250 mg DAILY@06 PO Last administered on 11/25/18 05:13; Admin Dose 250 MG; Start 11/19/18 at 06:00 Diagnostic Test (Pha) (Accu-Chek) 1 ea 02 XX ; Start 11/20/18 at 02:00 Insulin Aspart (Novolog Insulin Pen) NOVOLOG *MODERATE* ALGORI... Q4 SC Last administered on 11/25/18 01:15; Admin Dose 4 UNIT; Start 11/19/18 at 09:00 Labetalol HCl (Labetalol) 10 mg Q4H PRN IV sbp >160 Last administered on 11/19/18 19:13; Admin Dose 10 MG; Start 11/19/18 at 10:00 Ascorbic Acid (Vitamin C) 500 mg DAILY PO Last administered on 11/25/18 08:44; Admin Dose 500 MG; Start 11/20/18 at 09:00 Zinc Sulfate (Zinc Sulfate) 220 mg DAILY PO Last administered on 11/25/18 08:44; Admin Dose 220 MG; Start 11/20/18 at 09:00 Atorvastatin Calcium (Lipitor) 80 mg QHS PO Last administered on 11/24/18 20 :57; Admin Dose 80 MG; Start 11/19/18 at 21:00 Amlodipine Besylate (Norvasc) 5 mg BID PO Last administered on 11/25/18 08:45; Admin Dose 5 MG; Start 11/20/18 at 21:00 Aspirin (Aspirin) 81 mg DAILY GTB Last administered on 11/25/18 08:44; Admin Dose 81 MG; Start 11/21/18 at 09:00 Furosemide (Lasix) 40 mg DAILY PO Last administered on 11/25/18 08:44; Admin Dose 40 MG; Start 11/21/18 at 09:00 Lisinopril (Zestril) 5 mg DAILY PO Last administered on 11/25/18 08:45; Admin Dose 5 MG; Start 11/21/18 at 09:00 Insulin Glargine (Lantus) 25 units DAILY@0800 SC Last administered on 11/25/18 09:06; Admin Dose 25 UNITS; Start 11/22/18 at 08:00 Dextrose/Sodium Chloride 1,000 ml @ 20 mls/hr Q24H IV Last administered on 11/24/18 17:00; Admin Dose 20 MLS/HR; Start 11/22/18 at 08:30 Quetiapine Fumarate (Seroquel) 25 mg BID PO Last administered on 11/25/18 08:43; Admin Dose 25 MG; Start 11/22/18 at 21:00 Lorazepam (Ativan) 0.5 mg Q6H PRN IV anxiety/agitation Last administered on 11/22/18 19:32; Admin Dose 0.5 MG; Start 11/22/18 at 11:00 Clopidogrel Bisulfate (plaVIX) 75 mg DAILY PO Last administered on 11/25/18 08:43; Admin Dose 75 MG; Start 11/23/18 at 09:00 Haloperidol (Haldol) 5 mg Q12H PRN IM agitation Last administered on 11/22/18 19:44; Admin Dose 5 MG; Start 11/22/18 at 14:30 ALBAN WOLF Nov 25, 2018 11:21
[2018-11-25 11:42] VITALS: BP 92/50; PULSE 78; RESP 18
[2018-11-25 16:02] VITALS: BP 119/57; PULSE 80; RESP 18
--- NOTE | 2018-11-25 16:11 | PN ---
Date/Time of Note Date/Time of Note DATE: 11/25/18 TIME: 16:00 Assessment/Plan VTE Prophylaxis Risk score (from Nsg)>0 risk: 7 SCD applied (from Ns): No SCD contraindicated: low risk/ambulating Pharmacological prophylaxis: other Lines/Catheters IV Catheter Type (from Nrsg): Peripheral IV Urinary Cath still in place: Yes Reason Cath still needed: urinary retention Assessment/Plan Assessment/Plan 1. Acute encephalopathy- resolved - patient appears back to baseline - MRI noted for small CVA - psych saw patient, likely delirium, continue on Seroquel 2. Left frontal CVA - Neurology on board and appreciate recommendations - already on aspirin and plavix for PAD - continue on statin 3. left-sided internal carotid artery stenosis - 25% per CT angiogram, continue aspirin, statin, Plavix per vascular surgeon 4. Acute hypoxic respiratory failure-resolving - Extubated, doing well - CT chest without contrast results noted - Pulmonology consultation appreciated 5. Cardiac arrest s/p ROSC - Cardiology on board and appreciate recommendations - ECHO with preserved EF 6. 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 Will continue current antibiotics - Continue local wound care - Podiatry on board and appreciate consultation. no further procedures scheduled at this time 7. Severe peripheral vascular disease - s/p left femoral endarterectomy, iliofemoral bypass and femoral to posterior tibial bypass done on November 08, 2018 - Vascular surgery consultation appreciated - Continue aspirin and Plavix 8. Diabetes Mellitus - A1c noted - insulin as needed 9. Acute kidney injury- resolved - nephrology consultation appreciated and most likely due to contrast induced nephropathy as well as cardiorenal. - continue monitoring and avoid nephrotoxic agents 10. Essential HTN -Continue home medications at this time - BP stable 11. Peripheral neuropathy - cont. gabapentin 12. HLD - On statin 13. Chronic anemia - Stable H&H. Monitor - no need for transfusions at this time 14. Urinary retention - Urology on board and appreciate recommendations. 15. Disposition - CM consulted for SNF placement and son is currently looking for a facility. Continue PT and current treatment at this time. Result Diagram: 11/25/18 0653 11/25/18 0653 Results 24hrs Laboratory Tests Test 11/24/18 16:59 11/24/18 21:22 11/25/18 01:10 11/25/18 05:11 Bedside Glucose 131 296 H 197 65 L Test 11/25/18 06:43 11/25/18 06:53 11/25/18 08:29 11/25/18 12:02 Bedside Glucose 86 123 254 H White Blood Count 10.6 Red Blood Count 3.45 L Hemoglobin 10.4 L Hematocrit 32.0 L Mean Corpuscular Volume 92.8 Mean Corpuscular 30.1 Hemoglobin Mean Corpuscular 32.5 Hemoglobin Concent Red Cell Distribution 13.4 Width Platelet Count 300 Mean Platelet Volume 11.7 H Immature Granulocytes % 0.700 H Neutrophils % 74.9 Lymphocytes % 11.1 L Monocytes % 9.0 Eosinophils % 4.1 Basophils % 0.2 Nucleated Red Blood 0.0 Cells % Immature Granulocytes # 0.070 H Neutrophils # 7.9 H Lymphocytes # 1.2 Monocytes # 1.0 H Eosinophils # 0.4 Basophils # 0.0 Nucleated Red Blood 0.0 Cells # Sodium Level 139 Potassium Level 3.7 Chloride Level 105 Carbon Dioxide Level 29 Anion Gap 5 Blood Urea Nitrogen 27 H Creatinine 0.93 Est Glomerular Filtrat Rate mL/min Glucose Level 64 #L Calcium Level 7.9 L Phosphorus Level 2.3 L Magnesium Level 2.0 Subjective 24 Hr Interval Summary Free Text/Dictation Patient doing well and denies any acute issues. States not a fan of the food so just eating soup and his bread with coffee. No acute overnight events. Exam/Review of Systems Exam Vitals Vital Signs Date Temp Pulse Resp B/P (MAP) Pulse Ox O2 O2 Flow FiO2 Time Delivery Rate 11/25/18 Nasal 3.0 12:29 Cannula 11/25/18 98.7 78 18 92/50 (64) 98 11:42 Intake and Output 11/24/18 11/24/18 11/25/18 1414:59 22:59 06:59 IntakeIntake Total 200 ml 120 ml OutputOutput Total 1450 ml 500 ml BalanceBalance -1250 ml -380 ml Exam General: Patient is laying in bed responding to questions. no acute overnight events. Neck: Supple, nontender, midline Respiratory: Diminished, crackles at bases. no wheezing or rhonchi Cardiovascular: regular rate and rhythm, no obvious murmurs Gastrointestinal: soft, non-tender to palpation, no distended, bowel sounds heard. Neurological: Moves all extremities spontaneously Skin: No new skin lesions, surgical site bandaged, CDI Results Results 24hrs Laboratory Tests Test 11/24/18 16:59 11/24/18 21:22 11/25/18 01:10 11/25/18 05:11 Bedside Glucose 131 296 H 197 65 L Test 11/25/18 06:43 11/25/18 06:53 11/25/18 08:29 11/25/18 12:02 Bedside Glucose 86 123 254 H White Blood Count 10.6 Red Blood Count 3.45 L Hemoglobin 10.4 L Hematocrit 32.0 L Mean Corpuscular Volume 92.8 Mean Corpuscular 30.1 Hemoglobin Mean Corpuscular 32.5 Hemoglobin Concent Red Cell Distribution 13.4 Width Platelet Count 300 Mean Platelet Volume 11.7 H Immature Granulocytes % 0.700 H Neutrophils % 74.9 Lymphocytes % 11.1 L Monocytes % 9.0 Eosinophils % 4.1 Basophils % 0.2 Nucleated Red Blood 0.0 Cells % Immature Granulocytes # 0.070 H Neutrophils # 7.9 H Lymphocytes # 1.2 Monocytes # 1.0 H Eosinophils # 0.4 Basophils # 0.0 Nucleated Red Blood 0.0 Cells # Sodium Level 139 Potassium Level 3.7 Chloride Level 105 Carbon Dioxide Level 29 Anion Gap 5 Blood Urea Nitrogen 27 H Creatinine 0.93 Est Glomerular Filtrat Rate mL/min Glucose Level 64 #L Calcium Level 7.9 L Phosphorus Level 2.3 L Magnesium Level 2.0 Medications Medication Current Medications Ergocalciferol (Drisdol) 50,000 unit Sa PO Last administered on 11/23/18at 17:10; Admin Dose 50,000 UNIT; Start 11/09/18 at 09:00 Miscellaneous Medication (Bystolic) 20 mg DAILY PO Last administered on 11/11/18at 09:03; Admin Dose 20 MG; Start 11/04/18 at 09:00; Status Hold Clonidine (Catapres) 0.1 mg Q6H PRN PO SBP>160 Last administered on 11/19/18at 03:04; Admin Dose 0.1 MG; Start 11/04/18 at 09:00 IV Flush (NS 3 ml) 3 ml PER PROTOCOL IV ; Start 11/04/18 at 09:00 Ondansetron HCl (Zofran Inj) 4 mg Q6H PRN IV NAUSEA/VOMITING; Start 11/04/18 at 09:00 Acetaminophen (Tylenol Tab) 650 mg Q6H PRN PO .PAIN 1-3 OR TEMP Last administered on 11/25/18 05:38; Admin Dose 650 MG; Start 11/04/18 at 09:00 Miscellaneous Information 1 ea NOTE XX ; Start 11/04/18 at 09:00 Glucose (Glutose) 15 gm Q15M PRN PO DECREASED GLUCOSE; Start 11/04/18 at 09:00 Glucose (Glutose) 22.5 gm Q15M PRN PO DECREASED GLUCOSE; Start 11/04/18 at 09:00 Dextrose (D50w Syringe) 25 ml Q15M PRN IV DECREASED GLUCOSE; Start 11/04/18 at 09:00 Dextrose (D50w Syringe) 50 ml Q15M PRN IV DECREASED GLUCOSE; Start 11/04/18 at 09:00 Glucagon (Glucagen) 1 mg Q15M PRN IM DECREASED GLUCOSE; Start 11/04/18 at 09:00 Glucose (Glutose) 15 gm Q15M PRN BUCCAL DECREASED GLUCOSE; Start 11/04/18 at 09:00 Miscellaneous Information Patients own medicat... BID@10,16 XX Last administered on 11/20/18 16:16; Admin Dose 1 EA; Start 11/04/18 at 16:00 Povidone Iodine (Povidone-Iodine) 1 applic BID TOP Last administered on 11/25/18 08:47; Admin Dose 1 APPLIC; Start 11/05/18 at 21:00 Sodium Hypochlorite (Dakins Diluted ()) 1 applic BID TP Last administered o n 11/25/18 08:46; Admin Dose 1 APPLIC; Start 11/07/18 at 09:00 Hydralazine HCl (Apresoline) 10 mg Q4H PRN IV sbp >160 Last administered on 11/20/18at 14:44; Admin Dose 10 MG; Start 11/08/18 at 09:00 Famotidine (Pepcid) 20 mg DAILY NGT Last administered on 11/25/18 08:44; Admin Dose 20 MG; Start 11/11/18 at 09:30 Atropine Sulfate (Atropine) 0.5 mg PRN PRN IV SYMPTOMATIC BRADYCARDIA; Start 11/11/18 at 23:00 Heparin Sodium (Porcine) (Heparin (5000 Units/1ml)) 5,000 unit BID SC Last administered on 11/25/18 09:06; Admin Dose 5,000 UNIT; Start 11/14/18 at 21:00 Bisacodyl (Dulcolax Supp) 10 mg DAILY PRN [place] CONSTIPATION Last administered on 11/14/18 16:43; Admin Dose 10 MG; Start 11/14/18 at 16:30 Dextrose (D50w Syringe) 25 ml Q15M PRN IV .DECREASED GLUCOSE; Start 11/15/18 at 06:30 Dextrose (D50w Syringe) 50 ml Q15M PRN IV .DECREASED GLUCOSE; Start 11/15/18 at 06:30 Meropenem/Sodium Chloride 50 ml @ 100 mls/hr Q12 IVPB Last administered on 11/25/18 08:45; Admin Dose 100 MLS/HR; Start 11/15/18 at 14:30 IV Flush (NS 10 ml) 10 ml PRN PRN IV FLUSH LINE; Start 11/15/18 at 15:30 Fluconazole (Diflucan) 100 mg DAILY PO Last administered on 11/25/18 08:43; Admin Dose 100 MG; Start 11/16/18 at 14:00 Polyethylene Glycol (Miralax) 17 gm DAILY PRN NGT constipation; Start 11/17/18 at 09:00 Senna/Docusate Sodium (Senokot-S) 1 tab BID PRN NGT constipation; Start 11/17/18 at 09:00 Gabapentin (Neurontin Liquid) 300 mg BID PO Last administered on 11/25/18 08:49; Admin Dose 300 MG; Start 11/18/18 at 21:00 Hydralazine HCl (Apresoline) 100 mg TID PO Last administered on 11/25/18 08:45; Admin Dose 100 MG; Start 11/18/18 at 21:00 Levofloxacin (Levaquin) 250 mg DAILY@06 PO Last administered on 11/25/18 05:13; Admin Dose 250 MG; Start 11/19/18 at 06:00 Diagnostic Test (Pha) (Accu-Chek) 1 ea 02 XX ; Start 11/20/18 at 02:00 Insulin Aspart (Novolog Insulin Pen) NOVOLOG *MODERATE* ALGORI... Q4 SC Last administered on 11/25/18 12:17; Admin Dose 6 UNIT; Start 11/19/18 at 09:00 Labetalol HCl (Labetalol) 10 mg Q4H PRN IV sbp >160 Last administered on 11/19/18 19:13; Admin Dose 10 MG; Start 11/19/18 at 10:00 Ascorbic Acid (Vitamin C) 500 mg DAILY PO Last administered on 11/25/18 08:44; Admin Dose 500 MG; Start 11/20/18 at 09:00 Zinc Sulfate (Zinc Sulfate) 220 mg DAILY PO Last administered on 11/25/18 08:44; Admin Dose 220 MG; Start 11/20/18 at 09:00 Atorvastatin Calcium (Lipitor) 80 mg QHS PO Last administered on 11/24/18 20:57; Admin Dose 80 MG; Start 11/19/18 at 21:00 Amlodipine Besylate (Norvasc) 5 mg BID PO Last administered on 11/25/18 08:45; Admin Dose 5 MG; Start 11/20/18 at 21:00 Aspirin (Aspirin) 81 mg DAILY GTB Last administered on 11/25/18 08:44; Admin Dose 81 MG; Start 11/21/18 at 09:00 Furosemide (Lasix) 40 mg DAILY PO Last administered on 11/25/18 08:44; Admin Dose 40 MG; Start 11/21/18 at 09:00 Lisinopril (Zestril) 5 mg DAILY PO Last administered on 11/25/18 08:45; Admin Dose 5 MG; Start 11/21/18 at 09:00 Insulin Glargine (Lantus) 25 units DAILY@0800 SC Last administered on 11/25/18 09:06; Admin Dose 25 UNITS; Start 11/22/18 at 08:00 Dextrose/Sodium Chloride 1,000 ml @ 20 mls/hr Q24H IV Last administered on 11/24/18 17:00; Admin Dose 20 MLS/HR; Start 11/22/18 at 08:30 Quetiapine Fumarate (Seroquel) 25 mg BID PO Last administered on 11/25/18 08:43; Admin Dose 25 MG; Start 11/22/18 at 21:00 Lorazepam (Ativan) 0.5 mg Q6H PRN IV anxiety/agitation Last administered on 11/22/18 19:32; Admin Dose 0.5 MG; Start 11/22/18 at 11:00 Clopidogrel Bisulfate (plaVIX) 75 mg DAILY PO Last administered on 11/25/18 08:43; Admin Dose 75 MG; Start 11/23/18 at 09:00 Haloperidol (Haldol) 5 mg Q12H PRN IM agitation Last administered on 11/22/18 19:44; Admin Dose 5 MG; Start 11/22/18 at 14:30 KARL WOOD MD Nov 25, 2018 16:11
--- NOTE | 2018-11-25 16:19 | CONS ---
Assessment/Plan Assessment/Plan Hospital Course (Demo Recall) ID PROGRESS NOTE CURRENT ABX: DAY # => Levaquin + Merrem + Diflucan S/P Daptomycin + Ceftriaxone 24H INTERVAL SUMMARY * POD #3-> s/p 11/22/18 FOOT DEBRIDEMENT * ANAEROBIC CULTURE Final NO GROWTH AFTER 3 DAYS * WOUND CULTURE Final No growth after 3 days * DC PLANNING IN PROCESS == CM looking for accepting SNF * Awake, calm, VSS -- appreciate [employer] and Neuro NOTES * Afebrile, WBC down, stable post Extubated 11/18/18 * Recent TTE was unremarkable, Patient is a vasculopath with carotid, coronary, peripheral arterial disease * Per discussion w/Dr Ardon CT shares appearance of septic emboli * He is discussing possible GABBI with Dr. 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 MULTI DRUG RESISTANT ORGANISM Organism 2 STENOTROPHOMONAS MALTOPHILIA QUANTITY 4+ KLEB PNEUM KLEB PNEUM STENMAL M.I.C. RX M.I.C. RX M.I.C. RX --------- --- --------- --- --------- --- AMIKACIN 16 S CEFAZOLIN R CEFEPIME >=64 R CEFOTAXIME R CIPROFLOXACIN >=4 R GENTAMICIN >=16 R LEVOFLOXACIN I 0.5 S MEROPENEM 0.064 S TOBRAMYCIN >=16 R TRIMETHOPRIM/SULFAMETHOXAZOLE >=320 R <=20 S PIPERACILLIN/TAZOBACTAM 32 I DIAGNOSTIC IMAGING * 11/20/18 MRI BRAIN: IMPRESSION: Punctate acute infarct in the left posterior frontal lobe. Hypodense focus in the right thalamus on the comparison CT corresponds to an old lacunar infarct. Additional old infarcts in the bilateral frontal lobes and jennifer. Background parenchymal volume loss with chronic microvascular ischemic disease. Bilateral mastoid effusions. * 11/20/18 CAROTID US: Slightly increased velocity in the left proximal ICA, suspicious for a 50-69% stenosis. - validated velocity measurements with angiographic measurements, velocity criteria are extrapolated from diameter data as defined by the Society of Radiologists in Ultrasound Consensus Conference Radiology 2003; 229;340-346. This study does indirectly reference the measurement of the distal ICA diameter as the denominator for stenosis measurement. Normal antegrade flow in the vertebral arteries bilaterally. Mild to moderate calcific plaque bilaterally, left greater than right. * 11/19/18 CT BRAIN: CT of the brain yesterday revealed new 8 mm infarct in the left thalamus no acute intracranial hemorrhage. Please see full note in the chart * 11/08/18 CXR: Worsening diffuse bilateral reticular nodular infiltrates. PHYSICAL EXAMINATION = GENERAL: VSS, NAD HEENT: AT, NC, NECK: Supple, CHEST: Rise symmetrical HEART: Pulse RRR ABDOMEN: Benign EXTREMITIES: Warm, dry == left foot DSG C/D/I SKIN: No rash, no diaphoresis ID ASSESSMENT 72 yo M admit with: 1. Left foot gangrene * POD #1-> s/p 11/22/18 FOOT DEBRIDEMENT * WOUND CULTURE Preliminary No growth after 1 day 2. Peripheral arterial disease * POD #-> S/P 11/08/18 Left femoral endarterectomy w/Left iliofemoral bypass, and Left femoral->posterior tibial bypass 3. Diffuse pulmonary infiltrates == DDx CHF (STG I diastolic HF) w/possible s uperimposed HCAP * Per discussion w/Dr Ardon CT shares appearance of septic emboli 4. Hypertension w/HTN heart disease 5. Diabetes w/complications of peripheral neuropathy, vasculopathy 6. History of left foot second toe amputation 7. Acute kidney injury due to "NAVID" contrast induced necropathy post angiogram 8. Acute encephalopathy w/CT & MRI findings of new CVA superimposed on old prior infarcts 9. Bilateral mastoiditis (-)MRSA Nares ABX ALLERGIES: KNDA INVASIVES: PIV CURRENT ABX: DAY # => Levaquin + Merrem + Diflucan s/p Daptomycin + Ceftriaxone ID RECOMMENDATIONS/PLAN: 1. Continue current ABX -- follow APC recommendations - Unclear if all infected bone was removed 2. DC PLANNING IN PROCESS . Consultation Date/Type/Reason Admit Date/Time Nov 04, 2018 at 07:34 Initial Consult Date Requesting Provider: KARL WOOD MD Date/Time of Note DATE: 11/25/18 TIME: 16:16 Exam/Review of Systems Exam Vitals Vital Signs Date Temp Pulse Resp B/P (MAP) Pulse Ox O2 O2 Flow FiO2 Time Delivery Rate 11/25/18 98.2 80 18 119/57 98 Nasal 4.0 16:02 (77) Cannula Intake and Output 11/24/18 11/24/18 11/25/18 1515:00 23:00 07:00 IntakeIntake Total 200 ml 120 ml OutputOutput Total 1450 ml 500 ml BalanceBalance -1250 ml -380 ml Results Result Diagram: 11/25/18 0653 11/25/18 0653 Results 24hrs Laboratory Tests Test 11/24/18 16:59 11/24/18 21:22 11/25/18 01:10 11/25/18 05:11 Bedside Glucose 131 296 H 197 65 L Test 11/25/18 06:43 11/25/18 06:53 11/25/18 08:29 11/25/18 12:02 Bedside Glucose 86 123 254 H White Blood Count 10.6 Red Blood Count 3.45 L Hemoglobin 10.4 L Hematocrit 32.0 L Mean Corpuscular Volume 92.8 Mean Corpuscular 30.1 Hemoglobin Mean Corpuscular 32.5 Hemoglobin Concent Red Cell Distribution 13.4 Width Platelet Count 300 Mean Platelet Volume 11.7 H Immature Granulocytes % 0.700 H Neutrophils % 74.9 Lymphocytes % 11.1 L Monocytes % 9.0 Eosinophils % 4.1 Basophils % 0.2 Nucleated Red Blood 0.0 Cells % Immature Granulocytes # 0.070 H Neutrophils # 7.9 H Lymphocytes # 1.2 Monocytes # 1.0 H Eosinophils # 0.4 Basophils # 0.0 Nucleated Red Blood 0.0 Cells # Sodium Level 139 Potassium Level 3.7 Chloride Level 105 Carbon Dioxide Level 29 Anion Gap 5 Blood Urea Nitrogen 27 H Creatinine 0.93 Est Glomerular Filtrat Rate mL/min Glucose Level 64 #L Calcium Level 7.9 L Phosphorus Level 2.3 L Magnesium Level 2.0 Medications Medication Current Medications Ergocalciferol (Drisdol) 50,000 unit Sa PO Last administered on 11/23/18at 17:10; Admin Dose 50,000 UNIT; Start 11/09/18 at 09:00 Miscellaneous Medication (Bystolic) 20 mg DAILY PO Last administered on 11/11/18 09:03; Admin Dose 20 MG; Start 11/04/18 at 09:00; Status Hold Clonidine (Catapres) 0.1 mg Q6H PRN PO SBP>160 Last administered on 11/19/18at 03:04; Admin Dose 0.1 MG; Start 11/04/18 at 09:00 IV Flush (NS 3 ml) 3 ml PER PROTOCOL IV ; Start 11/04/18 at 09:00 Ondansetron HCl (Zofran Inj) 4 mg Q6H PRN IV NAUSEA/VOMITING; Start 11/04/18 at 09:00 Acetaminophen (Tylenol Tab) 650 mg Q6H PRN PO .PAIN 1-3 OR TEMP Last administered on 11/25/18at 05:38; Admin Dose 650 MG; Start 11/04/18 at 09:00 Miscellaneous Information 1 ea NOTE XX ; Start 11/04/18 at 09:00 Glucose (Glutose) 15 gm Q15M PRN PO DECREASED GLUCOSE; Start 11/04/18 at 09:00 Glucose (Glutose) 22.5 gm Q15M PRN PO DECREASED GLUCOSE; Start 11/04/18 at 09: 00 Dextrose (D50w Syringe) 25 ml Q15M PRN IV DECREASED GLUCOSE; Start 11/04/18 at 09:00 Dextrose (D50w Syringe) 50 ml Q15M PRN IV DECREASED GLUCOSE; Start 11/04/18 at 09:00 Glucagon (Glucagen) 1 mg Q15M PRN IM DECREASED GLUCOSE; Start 11/04/18 at 09:00 Glucose (Glutose) 15 gm Q15M PRN BUCCAL DECREASED GLUCOSE; Start 11/04/18 at 09:00 Miscellaneous Information Patients own medicat... BID@10,16 XX Last administered on 11/20/18at 16:16; Admin Dose 1 EA; Start 11/04/18 at 16:00 Povidone Iodine (Povidone-Iodine) 1 applic BID TOP Last administered on 11/25/18 08:47; Admin Dose 1 APPLIC; Start 11/05/18 at 21:00 Sodium Hypochlorite (Dakins Diluted ()) 1 applic BID TP Last administered on 11/25/18 08:46; Admin Dose 1 APPLIC; Start 11/07/18 at 09:00 Hydralazine HCl (Apresoline) 10 mg Q4H PRN IV sbp >160 Last administered on 11/20/18 14:44; Admin Dose 10 MG; Start 11/08/18 at 09:00 Famotidine (Pepcid) 20 mg DAILY NGT Last administered on 11/25/18 08:44; Admin Dose 20 MG; Start 11/11/18 at 09:30 Atropine Sulfate (Atropine) 0.5 mg PRN PRN IV SYMPTOMATIC BRADYCARDIA; Start 11/11/18 at 23:00 Heparin Sodium (Porcine) (Heparin (5000 Units/1ml)) 5,000 unit BID SC Last administered on 11/25/18 09:06; Admin Dose 5,000 UNIT; Start 11/14/18 at 21:00 Bisacodyl (Dulcolax Supp) 10 mg DAILY PRN MD CONSTIPATION Last administered on 11/14/18 16:43; Admin Dose 10 MG; Start 11/14/18 at 16:30 Dextrose (D50w Syringe) 25 ml Q15M PRN IV .DECREASED GLUCOSE; Start 11/15/18 at 06:30 Dextrose (D50w Syringe) 50 ml Q15M PRN IV .DECREASED GLUCOSE; Start 11/15/18 at 06:30 Meropenem/Sodium Chloride 50 ml @ 100 mls/hr Q12 IVPB Last administered on 11/25/18 08:45; Admin Dose 100 MLS/HR; Start 11/15/18 at 14:30 IV Flush (NS 10 ml) 10 ml PRN PRN IV FLUSH LINE; Start 11/15/18 at 15:30 Fluconazole (Diflucan) 100 mg DAILY PO Last administered on 11/25/18 08:43; Admin Dose 100 MG; Start 11/16/18 at 14:00 Polyethylene Glycol (Miralax) 17 gm DAILY PRN NGT constipation; Start 11/17/18 at 09:00 Senna/Docusate Sodium (Senokot-S) 1 tab BID PRN NGT constipation; Start 11/17/18 at 09:00 Gabapentin (Neurontin Liquid) 300 mg BID PO Last administered on 11/25/18 08:49; Admin Dose 300 MG; Start 11/18/18 at 21:00 Hydralazine HCl (Apresoline) 100 mg TID PO Last administered on 11/25/18 08:45; Admin Dose 100 MG; Start 11/18/18 at 21:00 Levofloxacin (Levaquin) 250 mg DAILY@06 PO Last administered on 11/25/18 05:13; Admin Dose 250 MG; Start 11/19/18 at 06:00 Diagnostic Test (Pha) (Accu-Chek) 1 ea 02 XX ; Start 11/20/18 at 02:00 Insulin Aspart (Novolog Insulin Pen) NOVOLOG *MODERATE* ALGORI... Q4 SC Last administered on 11/25/18 12:17; Admin Dose 6 UNIT; Start 11/19/18 at 09:00 Labetalol HCl (Labetalol) 10 mg Q4H PRN IV sbp >160 Last administered on 11/19/18 19:13; Admin Dose 10 MG; Start 11/19/18 at 10:00 Ascorbic Acid (Vitamin C) 500 mg DAILY PO Last administered on 11/25/18 08:44; Admin Dose 500 MG; Start 11/20/18 at 09:00 Zinc Sulfate (Zinc Sulfate) 220 mg DAILY PO Last administered on 11/25/18 08:44; Admin Dose 220 MG; Start 11/20/18 at 09:00 Atorvastatin Calcium (Lipitor) 80 mg QHS PO Last administered on 11/24/18 20:57; Admin Dose 80 MG; Start 11/19/18 at 21:00 Amlodipine Besylate (Norvasc) 5 mg BID PO Last administered on 11/25/18 08:45; Admin Dose 5 MG; Start 11/20/18 at 21:00 Aspirin (Aspirin) 81 mg DAILY GTB Last administered on 11/25/18 08:44; Admin Dose 81 MG; Start 11/21/18 at 09:00 Furosemide (Lasix) 40 mg DAILY PO Last administered on 11/25/18 08:44; Admin Dose 40 MG; Start 11/21/18 at 09:00 Lisinopril (Zestril) 5 mg DAILY PO Last administered on 11/25/18 08:45; Admin Dose 5 MG; Start 11/21/18 at 09:00 Insulin Glargine (Lantus) 25 units DAILY@0800 SC Last administered on 11/25/18 09:06; Admin Dose 25 UNITS; Start 11/22/18 at 08:00 Dextrose/Sodium Chloride 1,000 ml @ 20 mls/hr Q24H IV Last administered on 11/24/18 17:00; Admin Dose 20 MLS/HR; Start 11/22/18 at 08:30 Quetiapine Fumarate (Seroquel) 25 mg BID PO Last administered on 11/25/18 08:43; Admin Dose 25 MG; Start 11/22/18 at 21:00 Lorazepam (Ativan) 0.5 mg Q6H PRN IV anxiety/agitation Last administered on 11/22/18 19:32; Admin Dose 0.5 MG; Start 11/22/18 at 11:00 Clopidogrel Bisulfate (plaVIX) 75 mg DAILY PO Last administered on 11/25/18 08:43; Admin Dose 75 MG; Start 11/23/18 at 09:00 Haloperidol (Haldol) 5 mg Q12H PRN IM agitation Last administered on 11/22/18 19:44; Admin Dose 5 MG; Start 11/22/18 at 14:30 NESS MUNOZ NP Nov 25, 2018 16:19
--- NOTE | 2018-11-25 16:41 | CONS ---
Assessment/Plan Assessment/Plan Hospital Course (Demo Recall) IMPRESSION: 1. Preoperative evaluation prior to possible need for peripheral revascularization surgery.-neg trop x 3 and NL EF by echo with no sig valve abnl. Echo repeat 11/13 with NL EF 2. Peripheral arterial disease with nonhealing gangrenous changes in left toe ulceration. 3. Hypertension, under reasonable control on current medications. 4. Dyslipidemia. 5. Diabetes mellitus. 6. s/p cardiopulmonary arrest 7. Bradycardic intermittent by tele 8. Positive troponin after arrest-? secondary to or primary to arrest, likely secondary to as no signifcant uptrend and now downtrended to negative 9. Resp failure-s/p extubation 10. CVA-Acute by MRI Recc: -Now on tele -Continue asa/plavix/statin -serial ecg's -Continue abx's and f/u cx data -continue steroids/bronchodilators -local wound care -Bystolic still held given initial bradycardia -heparin was d/c'd secondary to anemia requiring transfusions -follow volume status on daily lasix diuresis -follow MS closely with ongoing neuro eval for possible CVA -Continue now zestril and decrease norvasc/hydralazine and continue as tolerated only. Consultation Date/Type/Reason Admit Date/Time Nov 04, 2018 at 07:34 Initial Consult Date 11/06/18 Type of Consult Cardiology Reason for Consultation Preop/cardiac arrest Requesting Provider: KARL WOOD MD Date/Time of Note DATE: 11/25/18 TIME: 16:38 Exam/Review of Systems Vital Signs Vitals Vital Signs Date Temp Pulse Resp B/P (MAP) Pulse Ox O2 O2 Flow FiO2 Time Delivery Rate 11/25/18 Nasal 3.0 16:16 Cannula 11/25/18 98.2 80 18 119/57 98 16:02 (77) Intake and Output 11/24/18 11/24/18 11/25/18 1515:00 23:00 07:00 IntakeIntake Total 200 ml 120 ml OutputOutput Total 1450 ml 500 ml BalanceBalance -1250 ml -380 ml Exam Exam Review of Systems: CONSTITUTIONAL: No fevers, chills. PULMONARY: No sob CARDIOVASCULAR: No chest pain/palpitations GASTROINTESTINAL: No nausea/vomiting. GENITOURINARY: No hematuria/dysuria. MUSCULOSKELETAL: No myagias/arthalgias. PSYCHIATRIC: The patient denies depression. NEUROLOGIC: No weakness Constitutional: alert Psych: no complaints Head: normocephalic ENMT: mucosa pink and moist Neck: supple, jvd (9 cm water) Respiratory: clear to auscultation Cardiovascular: regular rate and rhythm Gastrointestinal: soft, non-tender Musculoskeletal: muscle weakness (mild generalized) Extremities: other (LLE covered by dressing) Labs Result Diagram: 11/25/18 0653 11/25/18 0653 Results 24hrs Laboratory Tests Test 11/24/18 16:59 11/24/18 21:22 11/25/18 01:10 11/25/18 05:11 Bedside Glucose 131 296 H 197 65 L Test 11/25/18 06:43 11/25/18 06:53 11/25/18 08:29 11/25/18 12:02 Bedside Glucose 86 123 254 H White Blood Count 10.6 Red Blood Count 3.45 L Hemoglobin 10.4 L Hematocrit 32.0 L Mean Corpuscular Volume 92.8 Mean Corpuscular 30.1 Hemoglobin Mean Corpuscular 32.5 Hemoglobin Concent Red Cell Distribution 13.4 Width Platelet Count 300 Mean Platelet Volume 11.7 H Immature Granulocytes % 0.700 H Neutrophils % 74.9 Lymphocytes % 11.1 L Monocytes % 9.0 Eosinophils % 4.1 Basophils % 0.2 Nucleated Red Blood 0.0 Cells % Immature Granulocytes # 0.070 H Neutrophils # 7.9 H Lymphocytes # 1.2 Monocytes # 1.0 H Eosinophils # 0.4 Basophils # 0.0 Nucleated Red Blood 0.0 Cells # Sodium Level 139 Potassium Level 3.7 Chloride Level 105 Carbon Dioxide Level 29 Anion Gap 5 Blood Urea Nitrogen 27 H Creatinine 0.93 Est Glomerular Filtrat Rate mL/min Glucose Level 64 #L Calcium Level 7.9 L Phosphorus Level 2.3 L Magnesium Level 2.0 Medications Medications Current Medications Ergocalciferol (Drisdol) 50,000 unit Sa PO Last administered on 11/23/18at 17:10; Admin Dose 50,000 UNIT; Start 11/09/18 at 09:00 Miscellaneous Medication (Bystolic) 20 mg DAILY PO Last administered on 11/11/18at 09:03; Admin Dose 20 MG; Start 11/04/18 at 09:00; Status Hold Clonidine (Catapres) 0.1 mg Q6H PRN PO SBP>160 Last administered on 11/19/18 03:04; Admin Dose 0.1 MG; Start 11/04/18 at 09:00 IV Flush (NS 3 ml) 3 ml PER PROTOCOL IV ; Start 11/04/18 at 09:00 Ondansetron HCl (Zofran Inj) 4 mg Q6H PRN IV NAUSEA/VOMITING; Start 11/04/18 at 09:00 Acetaminophen (Tylenol Tab) 650 mg Q6H PRN PO .PAIN 1-3 OR TEMP Last administered on 11/25/18at 05:38; Admin Dose 650 MG; Start 11/04/18 at 09:00 Miscellaneous Information 1 ea NOTE XX ; Start 11/04/18 at 09:00 Glucose (Glutose) 15 gm Q15M PRN PO DECREASED GLUCOSE; Start 11/04/18 at 09:00 Glucose (Glutose) 22.5 gm Q15M PRN PO DECREASED GLUCOSE; Start 11/04/18 at 09:00 Dextrose (D50w Syringe) 25 ml Q15M PRN IV DECREASED GLUCOSE; Start 11/04/18 at 09:00 Dextrose (D50w Syringe) 50 ml Q15M PRN IV DECREASED GLUCOSE; Start 11/04/18 at 09:00 Glucagon (Glucagen) 1 mg Q15M PRN IM DECREASED GLUCOSE; Start 11/04/18 at 09:00 Glucose (Glutose) 15 gm Q15M PRN BUCCAL DECREASED GLUCOSE; Start 11/04/18 at 09:00 Miscellaneous Information Patients own medicat... BID@,16 XX Last administered on 11/20/18at 16:16; Admin Dose 1 EA; Start 11/04/18 at 16:00 Povidone Iodine (Povidone-Iodine) 1 applic BID TOP Last administered on 11/25/18 08:47; Admin Dose 1 APPLIC; Start 11/05/18 at 21:00 Sodium Hypochlorite (Dakins Diluted ()) 1 applic BID TP Last administered on 11/25/18at 08:46; Admin Dose 1 APPLIC; Start 11/07/18 at 09:00 Hydralazine HCl (Apresoline) 10 mg Q4H PRN IV sbp >160 Last administered on 11/20/18at 14:44; Admin Dose 10 MG; Start 11/08/18 at 09:00 Famotidine (Pepcid) 20 mg DAILY NGT Last administered on 11/25/18 08:44; Admin Dose 20 MG; Start 11/11/18 at 09:30 Atropine Sulfate (Atropine) 0.5 mg PRN PRN IV SYMPTOMATIC BRADYCARDIA; Start 11/11/18 at 23:00 Heparin Sodium (Porcine) (Heparin (5000 Units/1ml)) 5,000 unit BID SC Last administered on 11/25/18 09:06; Admin Dose 5,000 UNIT; Start 11/14/18 at 21:00 Bisacodyl (Dulcolax Supp) 10 mg DAILY PRN RI CONSTIPATION Last administered on 11/14/18 16:43; Admin Dose 10 MG; Start 11/14/18 at 16:30 Dextrose (D50w Syringe) 25 ml Q15M PRN IV .DECREASED GLUCOSE; Start 11/15/18 at 06:30 Dextrose (D50w Syringe) 50 ml Q15M PRN IV .DECREASED GLUCOSE; Start 11/15/18 at 06:30 Meropenem/Sodium Chloride 50 ml @ 100 mls/hr Q12 IVPB Last administered on 11/25/18 08:45; Admin Dose 100 MLS/HR; Start 11/15/18 at 14:30 IV Flush (NS 10 ml) 10 ml PRN PRN IV FLUSH LINE; Start 11/15/18 at 15:30 Fluconazole (Diflucan) 100 mg DAILY PO Last administered on 11/25/18 08:43; Admin Dose 100 MG; Start 11/16/18 at 14:00 Polyethylene Glycol (Miralax) 17 gm DAILY PRN NGT constipation; Start 11/17/18 at 09:00 Senna/Docusate Sodium (Senokot-S) 1 tab BID PRN NGT constipation; Start 11/17/18 at 09:00 Gabapentin (Neurontin Liquid) 300 mg BID PO Last administered on 11/25/18 08:49; Admin Dose 300 MG; Start 11/18/18 at 21:00 Hydralazine HCl (Apresoline) 100 mg TID PO Last administered on 11/25/18 08:45; Admin Dose 100 MG; Start 11/18/18 at 21:00 Levofloxacin (Levaquin) 250 mg DAILY@06 PO Last administered on 11/25/18 05:13; Admin Dose 250 MG; Start 11/19/18 at 06:00 Diagnostic Test (Pha) (Accu-Chek) 1 ea 02 XX ; Start 11/20/18 at 02:00 Insulin Aspart (Novolog Insulin Pen) NOVOLOG *MODERATE* ALGORI... Q4 SC Last administered on 11/25/18 12:17; Admin Dose 6 UNIT; Start 11/19/18 at 09:00 Labetalol HCl (Labetalol) 10 mg Q4H PRN IV sbp >160 Last administered on 11/19/18 19:13; Admin Dose 10 MG; Start 11/19/18 at 10:00 Ascorbic Acid (Vitamin C) 500 mg DAILY PO Last administered on 11/25/18 08:44; Admin Dose 500 MG; Start 11/20/18 at 09:00 Zinc Sulfate (Zinc Sulfate) 220 mg DAILY PO Last administered on 11/25/18 08:44; Admin Dose 220 MG; Start 11/20/18 at 09:00 Atorvastatin Calcium (Lipitor) 80 mg QHS PO Last administered on 11/24/18 20:57; Admin Dose 80 MG; Start 11/19/18 at 21:00 Amlodipine Besylate (Norvasc) 5 mg BID PO Last administered on 11/25/18 08:45; Admin Dose 5 MG; Start 11/20/18 at 21:00 Aspirin (Aspirin) 81 mg DAILY GTB Last administered on 11/25/18 08:44; Admin Dose 81 MG; Start 11/21/18 at 09:00 Furosemide (Lasix) 40 mg DAILY PO Last administered on 11/25/18 08:44; Admin Dose 40 MG; Start 11/21/18 at 09:00 Lisinopril (Zestril) 5 mg DAILY PO Last administered on 11/25/18 08:45; Admin Dose 5 MG; Start 11/21/18 at 09:00 Insulin Glargine (Lantus) 25 units DAILY@0800 SC Last administered on 11/25/18 09:06; Admin Dose 25 UNITS; Start 11/22/18 at 08:00 Dextrose/Sodium Chloride 1,000 ml @ 20 mls/hr Q24H IV Last administered on 11/24/18 17:00; Admin Dose 20 MLS/HR; Start 11/22/18 at 08:30 Quetiapine Fumarate (Seroquel) 25 mg BID PO Last administered on 11/25/18 08:43; Admin Dose 25 MG; Start 11/22/18 at 21:00 Lorazepam (Ativan) 0.5 mg Q6H PRN IV anxiety/agitation Last administered on 11/22/18 19:32; Admin Dose 0.5 MG; Start 11/22/18 at 11:00 Clopidogrel Bisulfate (plaVIX) 75 mg DAILY PO Last administered on 11/25/18 08:43; Admin Dose 75 MG; Start 11/23/18 at 09:00 Haloperidol (Haldol) 5 mg Q12H PRN IM agitation Last administered on 11/22/18 19:44; Admin Dose 5 MG; Start 11/22/18 at 14:30 KLEVER HUNT Nov 25, 2018 16:41
[2018-11-25 20:16] VITALS: BP 118/57; PULSE 78; RESP 18
[2018-11-25] MEDS: ATORVASTATIN 80 MG TAB PO SCH (20:37)
[2018-11-26 00:44] VITALS: BP 120/60; PULSE 87; RESP 20
[2018-11-26] MEDS: INSULIN ASPART [NOVOLOG] 3 ML PEN SC SCH ×6 (01:00→21:17)
[2018-11-26] MEDS: ACCU-CHEK XX SCH (02:00)
[2018-11-26] MEDS: LEVOFLOXACIN 250 MG TAB PO SCH (05:40)
[2018-11-26] MEDS: DEXTROSE 5%-0.45% NACL 1,000 ML IV SCH (05:46)
[2018-11-26] MEDS ORDERED: NEUTRA-PHOS 250 MG PACKET PO ONE (08:00)
--- NOTE | 2018-11-26 08:12 | PN ---
DATE: 11/26/2018 SUBJECTIVE: The patient is stable. No events overnight. OBJECTIVE: VITAL SIGNS: Blood pressure is 120/60, respiration is 20, pulse 87, temperature 98.3. HEENT: Head is normocephalic. NECK: Supple. HEART: Regular rate. LUNGS: Show diminished breath sounds at the base. ABDOMEN: Soft, nontender to palpation without rebound or guarding. EXTREMITIES: Negative for clubbing, cyanosis, no edema. DERMATOLOGIC: No rashes. MUSCULOSKELETAL: No joint effusion. NEUROLOGIC: No change in exam. MEDICATIONS: Reviewed. LABORATORY DATA: Has been reviewed. IMAGING STUDIES: Have been reviewed. ASSESSMENT AND PLAN: 1. Nonoliguric acute kidney injury. Etiology is secondary to hemodynamics, tubular injury. Renal f unction is improved. Continue current treatment plan. 2. Volume overload secondary to acute heart failure. The patient appears euvolemic. Will discontin ue IV fluids. Monitor closely on diuretic therapy. 3. Anemia. Monitor hemoglobin and hematocrit levels. 4. Mineral bone disorder. Monitor calcium and phosphorus levels. 5. Respiratory failure, status post extubation, currently stable. Continue to monitor. 6. Arrhythmia. Continue to monitor. Follow up with cardiology. 7. Peripheral vascular disease, status post iliofemoral bypass. 8. Left toe gangrene, status post amputation. 9. Hypertension. Continue current blood pressure regimen. 10. Acute encephalopathy. Etiology is toxic metabolic. 11. Dyslipidemia. Continue statin therapy. 12. Status post cardiac arrest. Dictated By: JEAN CLAUDE RUFFIN/BOBO Conf#: [id number] DID#: [id number] CC: TOMASA SCOTT;*EndCC*
[2018-11-26] MEDS: INSULIN GLARGINE [LANTus] (100 UNITS/ML) SYG SC SCH (08:29)
[2018-11-26] MEDS: HEPARIN 5,000 UNIT/1 ML VIAL SC SCH ×2 (08:29→21:18)
[2018-11-26] MEDS: MEROPENEM 500MG/50 ML (PMX) 50 ML IVPB SCH (08:29)
[2018-11-26] MEDS: QUETIAPINE 25 MG TAB PO SCH ×2 (08:30→21:14)
[2018-11-26] MEDS: FAMOTIDINE 20 MG TAB NGT SCH (08:30)
[2018-11-26] MEDS: ASPIRIN 81 MG TAB GTB SCH (08:31)
[2018-11-26] MEDS: ASCORBIC ACID 500 MG TAB PO SCH (08:31)
[2018-11-26] MEDS: CLOPIDOGREL 75 MG TAB PO SCH (08:31)
[2018-11-26] MEDS: ZINC SULFATE 220 MG CAP PO SCH (08:31)
[2018-11-26] MEDS: FLUCONAZOLE 100 MG TAB PO SCH (08:31)
[2018-11-26] MEDS: AMLODIPINE 5 MG TAB PO SCH (08:32)
[2018-11-26] MEDS: DAKINS 0.0125%(1/40) 473 ML SOLUTION TP SCH ×2 (08:33→21:15)
[2018-11-26] MEDS: FUROSEMIDE 40 MG TAB PO SCH (08:33)
[2018-11-26] MEDS: POVIDONE IODINE 10% 28.4 GM OINT TOP SCH ×2 (08:33→21:16)
[2018-11-26] MEDS: LISINOPRIL 5 MG TAB PO SCH (08:33)
[2018-11-26] MEDS: GABAPENTIN (50 MG/ML PO SYG) PO SCH ×2 (08:42→21:34)
[2018-11-26 08:44] VITALS: BP 123/64; PULSE 88; RESP 22
--- NOTE | 2018-11-26 09:32 | CONS ---
Assessment/Plan Assessment/Plan Assessment/Plan (Recall) 72 M c/ multiple comorbidities, who initially presented for management of a limb wound.. Then on 11/11, he had a cardiac arrest that necessitated brief resuscitation and ultimate intubation.. Extubated on 11/18, he is noted to have an appreciable,though mild, encephalopathy...for which neurology is consulted.. He could have a subtle cognitive impairment at baseline, which has seen some decompensation in the context of acute illness requiring psychotropic medication exposure, etc... MRI brain is notable for a tiny left frontal subcortical infarction...and chronic lacunes. Recent TTE was unremarkable CTA was without significant L ICA stenosis. P: Agree w/ plavix daily for secondary stroke prevention [place] as necessary Limit sedating medications where possible Other management and supportive care per primary Will sign off for now; please call w/ ?s Consultation Date/Type/Reason Admit Date/Time Nov 04, 2018 at 07:34 Type of Consult Neurology Reason for Consultation ams Requesting Provider: KARL WOOD MD Date/Time of Note DATE: 11/26/18 TIME: 09:32 24 HR Interval Summary Free Text/Dictation Continues acute care Exam/Review of Systems Exam Vitals Vital Signs Date Temp Pulse Resp B/P (MAP) Pulse Ox O2 O2 Flow FiO2 Time Delivery Rate 11/26/18 98.0 88 22 123/64 96 Nasal 08:44 (83) Cannula 11/26/18 3.0 07:45 Intake and Output 11/25/18 11/25/18 11/26/18 1515:00 23:00 07:00 IntakeIntake Total 470 ml 770 ml OutputOutput Total 1200 ml 2000 ml BalanceBalance 470 ml -430 ml -2000 ml Results Result Diagram: 11/26/18 0559 11/26/18 0559 Results 24hrs Laboratory Tests Test 11/25/18 12:02 11/25/18 17:42 11/25/18 20:48 11/26/18 01:42 Bedside Glucose 254 H 119 145 127 Test 11/26/18 05:42 11/26/18 05:59 11/26/18 08:27 Bedside Glucose 150 121 White Blood Count 8.3 # Red Blood Count 3.75 L Hemoglobin 11.0 L Hematocrit 34.6 L Mean Corpuscular Volume 92.3 Mean Corpuscular 29.3 Hemoglobin Mean Corpuscular 31.8 L Hemoglobin Concent Red Cell Distribution 13.6 Width Platelet Count 328 Mean Platelet Volume 11.4 H Immature Granulocytes % 0.400 Neutrophils % 72.4 Lymphocytes % 13.6 L Monocytes % 9.1 Eosinophils % 4.3 Basophils % 0.2 Nucleated Red Blood 0.0 Cells % Immature Granulocytes # 0.030 Neutrophils # 6.0 Lymphocytes # 1.1 Monocytes # 0.8 Eosinophils # 0.4 Basophils # 0.0 Nucleated Red Blood 0.0 Cells # Sodium Level 140 Potassium Level 4.0 Chloride Level 105 Carbon Dioxide Level 33 H Anion Gap 2 L Blood Urea Nitrogen 21 H Creatinine 0.96 Glucose Level 130 # Calcium Level 8.5 Phosphorus Level 2.1 L Magnesium Level 2.0 Albumin 3.1 L Medications Medication Current Medications Ergocalciferol (Drisdol) 50,000 unit Sa PO Last administered on 11/23/18at 17:10; Admin Dose 50,000 UNIT; Start 11/09/18 at 09:00 Miscellaneous Medication (Bystolic) 20 mg DAILY PO Last administered on 11/11/18at 09:03; Admin Dose 20 MG; Start 11/04/18 at 09:00; Status Hold Clonidine (Catapres) 0.1 mg Q6H PRN PO SBP>160 Last administered on 11/19/18 03:04; Admin Dose 0.1 MG; Start 11/04/18 at 09:00 IV Flush (NS 3 ml) 3 ml PER PROTOCOL IV ; Start 11/04/18 at 09:00 Ondansetron HCl (Zofran Inj) 4 mg Q6H PRN IV NAUSEA/VOMITING; Start 11/04/18 at 09:00 Acetaminophen (Tylenol Tab) 650 mg Q6H PRN PO .PAIN 1-3 OR TEMP Last administered on 11/25/18at 05:38; Admin Dose 650 MG; Start 11/04/18 at 09:00 Miscellaneous Information 1 ea NOTE XX ; Start 11/04/18 at 09:00 Glucose (Glutose) 15 gm Q15M PRN PO DECREASED GLUCOSE; Start 11/04/18 at 09:00 Glucose (Glutose) 22.5 gm Q15M PRN PO DECREASED GLUCOSE; Start 11/04/18 at 09:00 Dextrose (D50w Syringe) 25 ml Q15M PRN IV DECREASED GLUCOSE; Start 11/04/18 at 09:00 Dextrose (D50w Syringe) 50 ml Q15M PRN IV DECREASED GLUCOSE; Start 11/04/18 at 09:00 Glucagon (Glucagen) 1 mg Q15M PRN IM DECREASED GLUCOSE; Start 11/04/18 at 09:00 Glucose (Glutose) 15 gm Q15M PRN BUCCAL DECREASED GLUCOSE; Start 11/04/18 at 09:00 Miscellaneous Information Patients own medicat... BID@10,16 XX Last administered on 11/20/18 16:16; Admin Dose 1 EA; Start 11/04/18 at 16:00 Povidone Iodine (Povidone-Iodine) 1 applic BID TOP Last administered on 11/26/18 08:33; Admin Dose 1 APPLIC; Start 11/05/18 at 21:00 Sodium Hypochlorite (Dakins Diluted ()) 1 applic BID TP Last administered on 11/26/18 08:33; Admin Dose 1 APPLIC; Start 11/07/18 at 09:00 Hydralazine HCl (Apresoline) 10 mg Q4H PRN IV sbp >160 Last administered on 11/20/18 14:44; Admin Dose 10 MG; Start 11/08/18 at 09:00 Famotidine (Pepcid) 20 mg DAILY NGT Last administered on 11/26/18 08:30; Admin Dose 20 MG; Start 11/11/18 at 09:30 Atropine Sulfate (Atropine) 0.5 mg PRN PRN IV SYMPTOMATIC BRADYCARDIA; Start 11/11/18 at 23:00 Heparin Sodium (Porcine) (Heparin (5000 Units/1ml)) 5,000 unit BID SC Last administered on 11/26/18 08:29; Admin Dose 5,000 UNIT; Start 11/14/18 at 21:00 Bisacodyl (Dulcolax Supp) 10 mg DAILY PRN [place] CONSTIPATION Last administered on 11/14/18 16:43; Admin Dose 10 MG; Start 11/14/18 at 16:30 Dextrose (D50w Syringe) 25 ml Q15M PRN IV .DECREASED GLUCOSE; Start 11/15/18 at 06:30 Dextrose (D50w Syringe) 50 ml Q15M PRN IV .DECREASED GLUCOSE; Start 11/15/18 at 06:30 Meropenem/Sodium Chloride 50 ml @ 100 mls/hr Q12 IVPB Last administered on 11/26 08:29; Admin Dose 100 MLS/HR; Start 11/15/18 at 14:30 IV Flush (NS 10 ml) 10 ml PRN PRN IV FLUSH LINE; Start 11/15/18 at 15:30 Fluconazole (Diflucan) 100 mg DAILY PO Last administered on 11/26/18 08:31; Admin Dose 100 MG; Start 11/16/18 at 14:00 Polyethylene Glycol (Miralax) 17 gm DAILY PRN NGT constipation; Start 11/17/18 at 09:00 Senna/Docusate Sodium (Senokot-S) 1 tab BID PRN NGT constipation; Start 11/17/18 at 09:00 Gabapentin (Neurontin Liquid) 300 mg BID PO Last administered on 11/26/18 08:42; Admin Dose 300 MG; Start 11/18/18 at 21:00 Levofloxacin (Levaquin) 250 mg DAILY@06 PO Last administered on 11/26/18 05:40; Admin Dose 250 MG; Start 11/19/18 at 06:00 Diagnostic Test (Pha) (Accu-Chek) 1 ea 02 XX Last administered on 11/26/18 02:00; Admin Dose 1 EA; Start 11/20/18 at 02:00 Insulin Aspart (Novolog Insulin Pen) NOVOLOG *MODERATE* ALGORI... Q4 SC Last administered on 11/26/18 05:52; Admin Dose 2 UNIT; Start 11/19/18 at 09:00 Labetalol HCl (Labetalol) 10 mg Q4H PRN IV sbp >160 Last administered on 11/19/18 19:13; Admin Dose 10 MG; Start 11/19/18 at 10:00 Ascorbic Acid (Vitamin C) 500 mg DAILY PO Last administered on 11/26/18 08:31; Admin Dose 500 MG; Start 11/20/18 at 09:00 Zinc Sulfate (Zinc Sulfate) 220 mg DAILY PO Last administered on 11/26/18 08:31; Admin Dose 220 MG; Start 11/20/18 at 09:00 Atorvastatin Calcium (Lipitor) 80 mg QHS PO Last administered on 11/25/18 20:37; Admin Dose 80 MG; Start 11/19/18 at 21:00 Aspirin (Aspirin) 81 mg DAILY GTB Last administered on 11/26/18 08:31; Admin Dose 81 MG; Start 11/21/18 at 09:00 Furosemide (Lasix) 40 mg DAILY PO Last administered on 11/26/18 08:33; Admin Dose 40 MG; Start 11/21/18 at 09:00 Lisinopril (Zestril) 5 mg DAILY PO Last administered on 11/26/18 08:33; Admin Dose 5 MG; Start 11/21/18 at 09:00 Insulin Glargine (Lantus) 25 units DAILY@0800 SC Last administered on 11/26/18 08:29; Admin Dose 25 UNITS; Start 11/22/18 at 08:00 Quetiapine Fumarate (Seroquel) 25 mg BID PO Last administered on 11/26/18 08:30; Admin Dose 25 MG; Start 11/22/18 at 21:00 Lorazepam (Ativan) 0.5 mg Q6H PRN IV anxiety/agitation Last administered on 11/22/18 19:32; Admin Dose 0.5 MG; Start 11/22/18 at 11:00 Clopidogrel Bisulfate (plaVIX) 75 mg DAILY PO Last administered on 11/26/18 08:31; Admin Dose 75 MG; Start 11/23/18 at 09:00 Haloperidol (Haldol) 5 mg Q12H PRN IM agitation Last administered on 11/22/18 19:44; Admin Dose 5 MG; Start 11/22/18 at 14:30 Amlodipine Besylate (Norvasc) 5 mg DAILY PO Last administered on 11/26/18 08:32; Admin Dose 5 MG; Start 11/26/18 at 09:00 Hydralazine HCl (Apresoline) 75 mg TID PO Last administered on 11/26/18 08:32; Admin Dose 75 MG; Start 11/25/18 at 21:00 ALBAN WOLF Nov 26, 2018 09:32
--- NOTE | 2018-11-26 10:44 | PN ---
Date/Time of Note Date/Time of Note DATE: 11/26/18 TIME: 10:44 Assessment/Plan VTE Prophylaxis Risk score (from Nsg)>0 risk: 3 SCD applied (from Nsg): Yes Pharmacological prophylaxis: other Lines/Catheters IV Catheter Type (from Nrsg): Saline Lock Urinary Cath still in place: Yes Reason Cath still needed: urinary retention Assessment/Plan Assessment/Plan 1. Acute encephalopathy- resolved - patient appears back to baseline - MRI noted for small CVA - psych saw patient, likely delirium. Will wean off Seroquel as tolerated 2. Left frontal CVA - Neurology on board and appreciate recommendations - already on aspirin and plavix for PAD - continue on statin 3. left-sided internal carotid artery stenosis - 25% per CT angiogram, continue aspirin, statin, Plavix per vascular surgeon 4. Acute hypoxic respiratory failure-resolving - Extubated, doing well - CT chest without contrast results noted - Pulmonology consultation appreciated 5. Cardiac arrest s/p ROSC - Cardiology on board and appreciate recommendations - ECHO with preserved EF 6. 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 Will continue current antibiotics - Continue local wound care - Podiatry on board and appreciate consultation. no further procedures scheduled at this time. will need to use ortho shoe when ambulating 7. Severe peripheral vascular disease - s/p left femoral endarterectomy, iliofemoral bypass and femoral to posterior tibial bypass done on November 08, 2018 - Vascular surgery consultation appreciated - Continue aspirin and Plavix 8. Diabetes Mellitus - A1c noted - insulin as needed 9. Acute kidney injury- resolved - nephrology consultation appreciated and most likely due to contrast induced nephropathy as well as cardiorenal. - continue monitoring and avoid nephrotoxic agents 10. Essential HTN - Continue home medications at this time - BP stable 11. Peripheral neuropathy - cont. gabapentin 12. HLD - On statin 13. Chronic anemia - Stable H&H. Monitor - no need for transfusions at this time 14. Urinary retention - Urology on board and appreciate recommendations. 15. Disposition - CM consulted for SNF placement. Will need ortho shoe for ambulation per Podiatry recommendations Result Diagram: 11/26/18 0559 11/26/18 0559 Results 24hrs Laboratory Tests Test 11/25/18 12:02 11/25/18 17:42 11/25/18 20:48 11/26/18 01:42 Bedside Glucose 254 H 119 145 127 Test 11/26/18 05:42 11/26/18 05:59 11/26/18 08:27 Bedside Glucose 150 121 White Blood Count 8.3 # Red Blood Count 3.75 L Hemoglobin 11.0 L Hematocrit 34.6 L Mean Corpuscular Volume 92.3 Mean Corpuscular 29.3 Hemoglobin Mean Corpuscular 31.8 L Hemoglobin Concent Red Cell Distribution 13.6 Width Platelet Count 328 Mean Platelet Volume 11.4 H Immature Granulocytes % 0.400 Neutrophils % 72.4 Lymphocytes % 13.6 L Monocytes % 9.1 Eosinophils % 4.3 Basophils % 0.2 Nucleated Red Blood 0.0 Cells % Immature Granulocytes # 0.030 Neutrophils # 6.0 Lymphocytes # 1.1 Monocytes # 0.8 Eosinophils # 0.4 Basophils # 0.0 Nucleated Red Blood 0.0 Cells # Sodium Level 140 Potassium Level 4.0 Chloride Level 105 Carbon Dioxide Level 33 H Anion Gap 2 L Blood Urea Nitrogen 21 H Creatinine 0.96 Glucose Level 130 # Calcium Level 8.5 Phosphorus Level 2.1 L Magnesium Level 2.0 Albumin 3.1 L Subjective 24 Hr Interval Summary Free Text/Dictation Patient doing well and denies any acute issues. States walks with a brown/black diabetic shoe but none noted in room. No acute overnight events. Exam/Review of Systems Exam Vitals Vital Signs Date Temp Pulse Resp B/P (MAP) Pulse Ox O2 O2 Flow FiO2 Time Delivery Rate 11/26/18 98.0 88 22 123/64 96 Nasal 08:44 (83) Cannula 11/26/18 3.0 07:45 Intake and Output 11/25/18 11/25/18 11/26/18 1515:00 23:00 07:00 IntakeIntake Total 470 ml 770 ml OutputOutput Total 1200 ml 2000 ml BalanceBalance 470 ml -430 ml -2000 ml Exam General: Patient is laying in bed responding to questions. no acute overnight events. Neck: Supple, nontender, midline Respiratory: Diminished. no wheezing or rhonchi Cardiovascular: regular rate and rhythm, no obvious murmurs Gastrointestinal: soft, non-tender to palpation, no distended, bowel sounds heard. Neurological: Moves all extremities spontaneously Skin: No new skin lesions, surgical site bandaged, CDI Results Results 24hrs Laboratory Tests Test 11/25/18 12:02 11/25/18 17:42 11/25/18 20:48 11/26/18 01:42 Bedside Glucose 254 H 119 145 127 Test 11/26/18 05:42 11/26/18 05:59 11/26/18 08:27 Bedside Glucose 150 121 White Blood Count 8.3 # Red Blood Count 3.75 L Hemoglobin 11.0 L Hematocrit 34.6 L Mean Corpuscular Volume 92.3 Mean Corpuscular 29.3 Hemoglobin Mean Corpuscular 31.8 L Hemoglobin Concent Red Cell Distribution 13.6 Width Platelet Count 328 Mean Platelet Volume 11.4 H Immature Granulocytes % 0.400 Neutrophils % 72.4 Lymphocytes % 13.6 L Monocytes % 9.1 Eosinophils % 4.3 Basophils % 0.2 Nucleated Red Blood 0.0 Cells % Immature Granulocytes # 0.030 Neutrophils # 6.0 Lymphocytes # 1.1 Monocytes # 0.8 Eosinophils # 0.4 Basophils # 0.0 Nucleated Red Blood 0.0 Cells # Sodium Level 140 Potassium Level 4.0 Chloride Level 105 Carbon Dioxide Level 33 H Anion Gap 2 L Blood Urea Nitrogen 21 H Creatinine 0.96 Glucose Level 130 # Calcium Level 8.5 Phosphorus Level 2.1 L Magnesium Level 2.0 Albumin 3.1 L Medications Medication Current Medications Ergocalciferol (Drisdol) 50,000 unit Sa PO Last administered on 11/23/18at 17:10; Admin Dose 50,000 UNIT; Start 11/09/18 at 09:00 Miscellaneous Medication (Bystolic) 20 mg DAILY PO Last administered on 11/11/18at 09:03; Admin Dose 20 MG; Start 11/04/18 at 09:00; Status Hold Clonidine (Catapres) 0.1 mg Q6H PRN PO SBP>160 Last administered on 11/19/18at 03:04; Admin Dose 0.1 MG; Start 11/04/18 at 09:00 IV Flush (NS 3 ml) 3 ml PER PROTOCOL IV ; Start 11/04/18 at 09:00 Ondansetron HCl (Zofran Inj) 4 mg Q6H PRN IV NAUSEA/VOMITING; Start 11/04/18 at 09:00 Acetaminophen (Tylenol Tab) 650 mg Q6H PRN PO .PAIN 1-3 OR TEMP Last administered on 11/25/18at 05:38; Admin Dose 650 MG; Start 11/04/18 at 09:00 Miscellaneous Information 1 ea NOTE XX ; Start 11/04/18 at 09:00 Glucose (Glutose) 15 gm Q15M PRN PO DECREASED GLUCOSE; Start 11/04/18 at 09:00 Glucose (Glutose) 22.5 gm Q15M PRN PO DECREASED GLUCOSE; Start 11/04/18 at 09:00 Dextrose (D50w Syringe) 25 ml Q15M PRN IV DECREASED GLUCOSE; Start 11/04/18 at 09:00 Dextrose (D50w Syringe) 50 ml Q15M PRN IV DECREASED GLUCOSE; Start 11/04/18 at 09:00 Glucagon (Glucagen) 1 mg Q15M PRN IM DECREASED GLUCOSE; Start 11/04/18 at 09:00 Glucose (Glutose) 15 gm Q15M PRN BUCCAL DECREASED GLUCOSE; Start 11/04/18 at 09:00 Miscellaneous Information Patients own medicat... BID@10,16 XX Last administered on 11/20/18at 16:16; Admin Dose 1 EA; Start 11/04/18 at 16:00 Povidone Iodine (Povidone-Iodine) 1 applic BID TOP Last administered on 11/26/18 08:33; Admin Dose 1 APPLIC; Start 11/05/18 at 21:00 Sodium Hypochlorite (Dakins Diluted ()) 1 applic BID TP Last administered on 11/26/18 08:33; Admin Dose 1 APPLIC; Start 11/07/18 at 09:00 Hydralazine HCl (Apresoline) 10 mg Q4H PRN IV sbp >160 Last administered on 11/20/18at 14:44; Admin Dose 10 MG; Start 11/08/18 at 09:00 Famotidine (Pepcid) 20 mg DAILY NGT Last administered on 11/26/18 08:30; Admin Dose 20 MG; Start 11/11/18 at 09:30 Atropine Sulfate (Atropine) 0.5 mg PRN PRN IV SYMPTOMATIC BRADYCARDIA; Start 11/11/18 at 23:00 Heparin Sodium (Porcine) (Heparin (5000 Units/1ml)) 5,000 unit BID SC Last administered on 11/26/18 08:29; Admin Dose 5,000 UNIT; Start 11/14/18 at 21:00 Bisacodyl (Dulcolax Supp) 10 mg DAILY PRN [place] CONSTIPATION Last administered on 11/14/18at 16:43; Admin Dose 10 MG; Start 11/14/18 at 16:30 Dextrose (D50w Syringe) 25 ml Q15M PRN IV .DECREASED GLUCOSE; Start 11/15/18 at 06:30 Dextrose (D50w Syringe) 50 ml Q15M PRN IV .DECREASED GLUCOSE; Start 11/15/18 at 06:30 Meropenem/Sodium Chloride 50 ml @ 100 mls/hr Q12 IVPB Last administered on 11/26/18 08:29; Admin Dose 100 MLS/HR; Start 11/15/18 at 14:30 IV Flush (NS 10 ml) 10 ml PRN PRN IV FLUSH LINE; Start 11/15/18 at 15:30 Fluconazole (Diflucan) 100 mg DAILY PO Last administered on 11/26/18 08:31; Admin Dose 100 MG; Start 11/16/18 at 14:00 Polyethylene Glycol (Miralax) 17 gm DAILY PRN NGT constipation; Start 11/17/18 at 09:00 Senna/Docusate Sodium (Senokot-S) 1 tab BID PRN NGT constipation; Start 11/17/18 at 09:00 Gabapentin (Neurontin Liquid) 300 mg BID PO Last administered on 11/26/18at 08:42; Admin Dose 300 MG; Start 11/18/18 at 21:00 Levofloxacin (Levaquin) 250 mg DAILY@06 PO Last administered on 11/26/18 05:40; Admin Dose 250 MG; Start 11/19/18 at 06:00 Diagnostic Test (Pha) (Accu-Chek) 1 ea 02 XX Last administered on 11/26/18at 02:00; Admin Dose 1 EA; Start 11/20/18 at 02:00 Insulin Aspart (Novolog Insulin Pen) NOVOLOG *MODERATE* ALGORI... Q4 SC Last administered on 11/26/18 05:52; Admin Dose 2 UNIT; Start 11/19/18 at 09:00 Labetalol HCl (Labetalol) 10 mg Q4H PRN IV sbp >160 Last administered on 11/19/18at 19:13; Admin Dose 10 MG; Start 11/19/18 at 10:00 Ascorbic Acid (Vitamin C) 500 mg DAILY PO Last administered on 11/26/18 08:31; Admin Dose 500 MG; Start 11/20/18 at 09:00 Zinc Sulfate (Zinc Sulfate) 220 mg DAILY PO Last administered on 11/26/18 08:31; Admin Dose 220 MG; Start 11/20/18 at 09:00 Atorvastatin Calcium (Lipitor) 80 mg QHS PO Last administered on 11/25/18 20:37; Admin Dose 80 MG; Start 11/19/18 at 21:00 Aspirin (Aspirin) 81 mg DAILY GTB Last administered on 11/26/18 08:31; Admin Dose 81 MG; Start 11/21/18 at 09:00 Furosemide (Lasix) 40 mg DAILY PO Last administered on 11/26/18 08:33; Admin Dose 40 MG; Start 11/21/18 at 09:00 Lisinopril (Zestril) 5 mg DAILY PO Last administered on 11/26/18 08:33; Admin Dose 5 MG; Start 11/21/18 at 09:00 Insulin Glargine (Lantus) 25 units DAILY@0800 SC Last administered on 11/26/18 08:29; Admin Dose 25 UNITS; Start 11/22/18 at 08:00 Quetiapine Fumarate (Seroquel) 25 mg BID PO Last administered on 11/26/18 08:30; Admin Dose 25 MG; Start 11/22/18 at 21:00 Lorazepam (Ativan) 0.5 mg Q6H PRN IV anxiety/agitation Last administered on 11/22/18 19:32; Admin Dose 0.5 MG; Start 11/22/18 at 11:00 Clopidogrel Bisulfate (plaVIX) 75 mg DAILY PO Last administered on 11/26/18 08:31; Admin Dose 75 MG; Start 11/23/18 at 09:00 Haloperidol (Haldol) 5 mg Q12H PRN IM agitation Last administered on 11/22/18 19:44; Admin Dose 5 MG; Start 11/22/18 at 14:30 Amlodipine Besylate (Norvasc) 5 mg DAILY PO Last administered on 11/26/18 08:32; Admin Dose 5 MG; Start 11/26/18 at 09:00 Hydralazine HCl (Apresoline) 75 mg TID PO Last administered on 11/26/18at 08:32; Admin Dose 75 MG; Start 11/25/18 at 21:00 KARL WOOD MD Nov 26, 2018 10:44
--- NOTE | 2018-11-26 12:09 | CONS ---
Consult Date/Type/Reason Admit Date/Time Nov 04, 2018 at 07:34 Initial Consult Date 11/11/18 Type of Consultation: Pulm Requesting Provider: KARL WOOD MD Date/Time of Note DATE: 11/26/18 TIME: 12:06 Subjective NO acute events - pt comfortable - less agitated now - will monitor clinically - BP well controlled. ROS: No fever, no chills, no nausea, no vomiting, no diarrhea/constipation - per nurse Objective Vitals Vital Signs Date Temp Pulse Resp B/P (MAP) Pulse Ox O2 O2 Flow FiO2 Time Delivery Rate 11/26/18 98.0 88 22 123/64 96 Nasal 08:44 (83) Cannula 11/26/18 3.0 07:45 Intake and Output 11/25/18 11/25/18 11/26/18 1515:00 23:00 07:00 IntakeIntake Total 470 ml 770 ml OutputOutput Total 1200 ml 2000 ml BalanceBalance 470 ml -430 ml -2000 ml Exam General: WN/WD/NAD, AOx less agitated HEENT: Unicetric/atraumatic/EOMI (does not follow commands) NECK: JVD elevated, no thyromegaly Lymph: no lymphadenopathy HEART: regular with no S3, II/ systolic murmur at apex LUNGS: Coarse sounds ABD: soft, NT, ND, +BS : Intact Neuro: non focal SKIN: chronic changes EXT: trace edema, post op + bandages Results/Medications Result Diagram: 11/26/18 0559 11/26/18 0559 Results 24 hrs Laboratory Tests Test 11/25/18 17:42 11/25/18 20:48 11/26/18 01:42 11/26/18 05:42 Bedside Glucose 119 145 127 150 Test 11/26/18 05:59 11/26/18 08:27 White Blood Count 8.3 # Red Blood Count 3.75 L Hemoglobin 11.0 L Hematocrit 34.6 L Mean Corpuscular Volume 92.3 Mean Corpuscular 29.3 Hemoglobin Mean Corpuscular 31.8 L Hemoglobin Concent Red Cell Distribution 13.6 Width Platelet Count 328 Mean Platelet Volume 11.4 H Immature Granulocytes % 0.400 Neutrophils % 72.4 Lymphocytes % 13.6 L Monocytes % 9.1 Eosinophils % 4.3 Basophils % 0.2 Nucleated Red Blood 0.0 Cells % Immature Granulocytes # 0.030 Neutrophils # 6.0 Lymphocytes # 1.1 Monocytes # 0.8 Eosinophils # 0.4 Basophils # 0.0 Nucleated Red Blood 0.0 Cells # Sodium Level 140 Potassium Level 4.0 Chloride Level 105 Carbon Dioxide Level 33 H Anion Gap 2 L Blood Urea Nitrogen 21 H Creatinine 0.96 Glucose Level 130 # Calcium Level 8.5 Phosphorus Level 2.1 L Magnesium Level 2.0 Albumin 3.1 L Bedside Glucose 121 Home Meds Active Scripts Silver Sulfadiazine* (Silvadene*) 1% - 20 Gm Cream.gm., 1 APPLIC TOP DAILY, #1 TUB Prov:JESSIE WONG MD 06/12/18 Amoxicillin-Clavulanate K* (Augmentin*) 875 Mg Tab, 875 MG PO BID, #28 TAB Prov:AMANDA GOMEZ MD 06/08/14 Reported Medications Insulin Aspart (Novolog Mix (70/30)) 100 Units/Ml Soln, 28 SC with diinner, VIAL 11/04/18 Insulin Aspart (Novolog Mix (70/30)) 100 Units/Ml Soln, 38 SC WITH BREAKFAST, VIAL 11/04/18 Benazepril Hcl* (Benazepril Hcl*) 40 Mg Tablet, 40 MG PO DAILY, #30 TAB 11/04/18 Ergocalciferol (Vitamin D2) (VITAMIN D2) 50,000 Unit Capsule, 67398 UNIT PO weekly for saturdays, CAP 11/04/18 Omeprazole* (Omeprazole*) 20 Mg Capsule.dr, 20 MG PO DAILY, #30 CAP 11/04/18 Aspirin* (Aspirin* EC) 81 Mg Tablet.dr, 81 MG PO DAILY, TAB 11/04/18 Gabapentin* (Gabapentin*) 300 Mg Capsule, 300 MG PO BID, #60 CAP 11/04/18 Nebivolol Hcl* (Bystolic*) 20 Mg Tablet, 20 MG PO DAILY, #30 TAB 11/04/18 Atorvastatin Calcium* (Atorvastatin Calcium*) 20 Mg Tablet, 20 MG PO QHS, #30 TAB 11/04/18 Sulfasalazine (Azulfidine) 500 Mg Tab, 1000 MG PO TID, TAB 06/02/14 Medications Current Medications Ergocalciferol (Drisdol) 50,000 unit Sa PO Last administered on 11/23/18at 17:10; Admin Dose 50,000 UNIT; Start 11/09/18 at 09:00 Miscellaneous Medication (Bystolic) 20 mg DAILY PO Last administered on 11/11/18at 09:03; Admin Dose 20 MG; Start 11/04/18 at 09:00; Status Hold Clonidine (Catapres) 0.1 mg Q6H PRN PO SBP>160 Last administered on 11/19/18at 03:04; Admin Dose 0.1 MG; Start 11/04/18 at 09:00 IV Flush (NS 3 ml) 3 ml PER PROTOCOL IV ; Start 11/04/18 at 09:00 Ondansetron HCl (Zofran Inj) 4 mg Q6H PRN IV NAUSEA/VOMITING; Start 11/04/18 at 09:00 Acetaminophen (Tylenol Tab) 650 mg Q6H PRN PO .PAIN 1-3 OR TEMP Last administered on 11/25/18at 05:38; Admin Dose 650 MG; Start 11/04/18 at 09:00 Miscellaneous Information 1 ea NOTE XX ; Start 11/04/18 at 09:00 Glucose (Glutose) 15 gm Q15M PRN PO DECREASED GLUCOSE; Start 11/04/18 at 09:00 Glucose (Glutose) 22.5 gm Q15M PRN PO DECREASED GLUCOSE; Start 11/04/18 at 09:00 Dextrose (D50w Syringe) 25 ml Q15M PRN IV DECREASED GLUCOSE; Start 11/04/18 at 09:00 Dextrose (D50w Syringe) 50 ml Q15M PRN IV DECREASED GLUCOSE; Start 11/04/18 at 09:00 Glucagon (Glucagen) 1 mg Q15M PRN IM DECREASED GLUCOSE; Start 11/04/18 at 09:00 Glucose (Glutose) 15 gm Q15M PRN BUCCAL DECREASED GLUCOSE; Start 11/04/18 at 09:00 Miscellaneous Information Patients own medicat... BID@10,16 XX Last administered on 11/20/18at 16:16; Admin Dose 1 EA; Start 11/04/18 at 16:00 Povidone Iodine (Povidone-Iodine) 1 applic BID TOP Last administered on 11/26/18at 08:33; Admin Dose 1 APPLIC; Start 11/05/18 at 21:00 Sodium Hypochlorite (Dakins Diluted (1/40)) 1 applic BID TP Last administered on 11/26/18 08:33; Admin Dose 1 APPLIC; Start 11/07/18 at 09:00 Hydralazine HCl (Apresoline) 10 mg Q4H PRN IV sbp >160 Last administered on 11/20/18 14:44; Admin Dose 10 MG; Start 11/08/18 at 09:00 Famotidine (Pepcid) 20 mg DAILY NGT Last administered on 11/26/18 08:30; Admin Dose 20 MG; Start 11/11/18 at 09:30 Atropine Sulfate (Atropine) 0.5 mg PRN PRN IV SYMPTOMATIC BRADYCARDIA; Start 11/11/18 at 23:00 Heparin Sodium (Porcine) (Heparin (5000 Units/1ml)) 5,000 unit BID SC Last administered on 11/26/18 08:29; Admin Dose 5,000 UNIT; Start 11/14/18 at 21:00 Bisacodyl (Dulcolax Supp) 10 mg DAILY PRN [place] CONSTIPATION Last administered on 11/14/18 16:43; Admin Dose 10 MG; Start 11/14/18 at 16:30 Dextrose (D50w Syringe) 25 ml Q15M PRN IV .DECREASED GLUCOSE; Start 11/15/18 at 06:30 Dextrose (D50w Syringe) 50 ml Q15M PRN IV .DECREASED GLUCOSE; Start 11/15/18 at 06:30 Meropenem/Sodium Chloride 50 ml @ 100 mls/hr Q12 IVPB Last administered on 11/26/18 08:29; Admin Dose 100 MLS/HR; Start 11/15/18 at 14:30 IV Flush (NS 10 ml) 10 ml PRN PRN IV FLUSH LINE; Start 11/15/18 at 15:30 Fluconazole (Diflucan) 100 mg DAILY PO Last administered on 11/26/18 08:31; Admin Dose 100 MG; Start 11/16/18 at 14:00 Polyethylene Glycol (Miralax) 17 gm DAILY PRN NGT constipation; Start 11/17/18 at 09:00 Senna/Docusate Sodium (Senokot-S) 1 tab BID PRN NGT constipation; Start 11/17/18 at 09:00 Gabapentin (Neurontin Liquid) 300 mg BID PO Last administered on 11/26/18 08:42; Admin Dose 300 MG; Start 11/18/18 at 21:00 Levofloxacin (Levaquin) 250 mg DAILY@06 PO Last administered on 11/26/18 05:40; Admin Dose 250 MG; Start 11/19/18 at 06:00 Diagnostic Test (Pha) (Accu-Chek) 1 ea 02 XX Last administered on 11/26/18 02:00; Admin Dose 1 EA; Start 11/20/18 at 02:00 Insulin Aspart (Novolog Insulin Pen) NOVOLOG *MODERATE* ALGORI... Q4 SC Last administered on 11/26/18 05:52; Admin Dose 2 UNIT; Start 11/19/18 at 09:00 Labetalol HCl (Labetalol) 10 mg Q4H PRN IV sbp >160 Last administered on 11/19/18 19:13; Admin Dose 10 MG; Start 11/19/18 at 10:00 Ascorbic Acid (Vitamin C) 500 mg DAILY PO Last administered on 11/26/18 08:31; Admin Dose 500 MG; Start 11/20/18 at 09:00 Zinc Sulfate (Zinc Sulfate) 220 mg DAILY PO Last administered on 11/26/18 08:31; Admin Dose 220 MG; Start 11/20/18 at 09:00 Atorvastatin Calcium (Lipitor) 80 mg QHS PO Last administered on 11/25/18 20:37; Admin Dose 80 MG; Start 11/19/18 at 21:00 Aspirin (Aspirin) 81 mg DAILY GTB Last administered on 11/26/18 08:31; Admin Dose 81 MG; Start 11/21/18 at 09:00 Furosemide (Lasix) 40 mg DAILY PO Last administered on 11/26/18 08:33; Admin Dose 40 MG; Start 11/21/18 at 09:00 Lisinopril (Zestril) 5 mg DAILY PO Last administered on 11/26/18 08:33; Admin Dose 5 MG; Start 11/21/18 at 09:00 Insulin Glargine (Lantus) 25 units DAILY@0800 SC Last administered on 11/26/18 08:29; Admin Dose 25 UNITS; Start 11/22/18 at 08:00 Quetiapine Fumarate (Seroquel) 25 mg BID PO Last administered on 11/26/18 08:30; Admin Dose 25 MG; Start 11/22/18 at 21:00 Lorazepam (Ativan) 0.5 mg Q6H PRN IV anxiety/agitation Last administered on 11/22/18 19:32; Admin Dose 0.5 MG; Start 11/22/18 at 11:00 Clopidogrel Bisulfate (plaVIX) 75 mg DAILY PO Last administered on 11/26/18 08:31; Admin Dose 75 MG; Start 11/23/18 at 09:00 Haloperidol (Haldol) 5 mg Q12H PRN IM agitation Last administered on 11/22/18 19:44; Admin Dose 5 MG; Start 11/22/18 at 14:30 Amlodipine Besylate (Norvasc) 5 mg DAILY PO Last administered on 11/26/18 08:32; Admin Dose 5 MG; Start 11/26/18 at 09:00 Hydralazine HCl (Apresoline) 75 mg TID PO Last administered on 11/26/18 08:32; Admin Dose 75 MG; Start 11/25/18 at 21:00 Assessment/Plan Hospital Course (Demo Recall) 1. Preoperative evaluation prior to possible need for peripheral revascularization surgery.-neg trop x 3 and NL EF by echo with no sig valve abnl - s/p decomp[ensation and CODE Blue - pt was rossana last night, now in sinus -now extubated., more alert, HR controlled. Will monitor now - no focal symptoms. Less agitated - confused - not in pain. Now encephalopathic - will monitor for now. Less agitated - comfortable now. 2. Peripheral arterial disease with nonhealing gangrenous changes in left toe ulceration - post op now. Treated. Post op. Site looks well. No edema. 3. Hypertension, under reasonable control on current medications. NOW stable. Will allow fpr now. BETTER now. 4. Dyslipidemia. 5. Diabetes mellitus- con't to keep euglycemic - on meds. 6. s/p cardiopulmonary arrest - con't resp Rx - pulmonary follows - reasonable saturation now Now in sinus. 7. Bradycardic intermittent by tele - now back to sinus - will monitor - dopa gtt if sustained rossana. Now stable. NO indication for pacer now - HR well maintained now. 8. Positive troponin after arrest-? secondary to or primary to arrest - no intervention planned now. 9. Anemia - H/H stableat 11. - no bleeding now, 10. AMS - will check ECHO r/o large veg per ID rec - ECHO showed no obvious vegetation. On anti-bx now. RAJI BROWNE MD Nov 26, 2018 12:09
[2018-11-26 12:25] VITALS: BP 122/60; PULSE 85; RESP 22
--- NOTE | 2018-11-26 14:34 | CONS ---
Assessment/Plan Assessment/Plan Hospital Course (Demo Recall) No acute events patient looks comfortable Antimicrobials: Meropenem, Levaquin, fluconazole Indwelling: Vora, PICC line Physical examination: Well-developed elderly man who is in no distress head atraumatic normocephalic neck is supple chest rise symmetrical breath sounds diminished bases heart S1-S2 abdomen soft bowel sounds present extremities with left foot dressing intact Assessment: 1. Status post cardiac arrest 2. Non-ST elevation RI 3. Status post acute respiratory failure, possibly aspirated 4. Left foot gangrene 5. Peripheral arterial disease status post left femoral to posterior tibial bypass 11/08/18 6. Diabetes 7. History of left foot second toe amputation 8. Acute kidney insufficiency 9. Acute encephalopathy with a new radiographic findings per CT yesterday Plan: Stable, no osteomyelitis per pathology report, DC antibiotics and observe Consultation Date/Type/Reason Admit Date/Time Nov 04, 2018 at 07:34 Initial Consult Date Type of Consult id Requesting Provider: KARL WOOD MD Date/Time of Note DATE: 11/26/18 TIME: 14:32 Exam/Review of Systems Exam Vitals Vital Signs Date Temp Pulse Resp B/P (MAP) Pulse Ox O2 O2 Flow FiO2 Time Delivery Rate 11/26/18 97.8 85 22 122/60 96 Nasal 12:25 (80) Cannula 11/26/18 3.0 07:45 Intake and Output 11/25/18 11/25/18 11/26/18 1515:00 23:00 07:00 IntakeIntake Total 470 ml 770 ml OutputOutput Total 1200 ml 2000 ml BalanceBalance 470 ml -430 ml -2000 ml Results Result Diagram: 11/26/18 0559 11/26/18 0559 Results 24hrs Laboratory Tests Test 11/25/18 17:42 11/25/18 20:48 11/26/18 01:42 11/26/18 05:42 Bedside Glucose 119 145 127 150 Test 11/26/18 05:59 11/26/18 08:27 11/26/18 12:25 White Blood Count 8.3 # Red Blood Count 3.75 L Hemoglobin 11.0 L Hematocrit 34.6 L Mean Corpuscular Volume 92.3 Mean Corpuscular 29.3 Hemoglobin Mean Corpuscular 31.8 L Hemoglobin Concent Red Cell Distribution 13.6 Width Platelet Count 328 Mean Platelet Volume 11.4 H Immature Granulocytes % 0.400 Neutrophils % 72.4 Lymphocytes % 13.6 L Monocytes % 9.1 Eosinophils % 4.3 Basophils % 0.2 Nucleated Red Blood 0.0 Cells % Immature Granulocytes # 0.030 Neutrophils # 6.0 Lymphocytes # 1.1 Monocytes # 0.8 Eosinophils # 0.4 Basophils # 0.0 Nucleated Red Blood 0.0 Cells # Sodium Level 140 Potassium Level 4.0 Chloride Level 105 Carbon Dioxide Level 33 H Anion Gap 2 L Blood Urea Nitrogen 21 H Creatinine 0.96 Glucose Level 130 # Calcium Level 8.5 Phosphorus Level 2.1 L Magnesium Level 2.0 Albumin 3.1 L Bedside Glucose 121 203 Medications Medication Current Medications Ergocalciferol (Drisdol) 50,000 unit Sa PO Last administered on 11/23/18at 17:10; Admin Dose 50,000 UNIT; Start 11/09/18 at 09:00 Miscellaneous Medication (Bystolic) 20 mg DAILY PO Last administered on 11/11/18 09:03; Admin Dose 20 MG; Start 11/04/18 at 09:00; Status Hold Clonidine (Catapres) 0.1 mg Q6H PRN PO SBP>160 Last administered on 11/19/18 03:04; Admin Dose 0.1 MG; Start 11/04/18 at 09:00 IV Flush (NS 3 ml) 3 ml PER PROTOCOL IV ; Start 11/04/18 at 09:00 Ondansetron HCl (Zofran Inj) 4 mg Q6H PRN IV NAUSEA/VOMITING; Start 11/04/18 at 09:00 Acetaminophen (Tylenol Tab) 650 mg Q6H PRN PO .PAIN 1-3 OR TEMP Last administered on 11/25/18at 05:38; Admin Dose 650 MG; Start 11/04/18 at 09:00 Miscellaneous Information 1 ea NOTE XX ; Start 11/04/18 at 09:00 Glucose (Glutose) 15 gm Q15M PRN PO DECREASED GLUCOSE; Start 11/04/18 at 09:00 Glucose (Glutose) 22.5 gm Q15M PRN PO DECREASED GLUCOSE; Start 11/04/18 at 09:00 Dextrose (D50w Syringe) 25 ml Q15M PRN IV DECREASED GLUCOSE; Start 11/04/18 at 09:00 Dextrose (D50w Syringe) 50 ml Q15M PRN IV DECREASED GLUCOSE; Start 11/04/18 at 09:00 Glucagon (Glucagen) 1 mg Q15M PRN IM DECREASED GLUCOSE; Start 11/04/18 at 09:00 Glucose (Glutose) 15 gm Q15M PRN BUCCAL DECREASED GLUCOSE; Start 11/04/18 at 0 9:00 Miscellaneous Information Patients own medicat... BID@10,16 XX Last administered on 11/20/18 16:16; Admin Dose 1 EA; Start 11/04/18 at 16:00 Povidone Iodine (Povidone-Iodine) 1 applic BID TOP Last administered on 11/26/18 08:33; Admin Dose 1 APPLIC; Start 11/05/18 at 21:00 Sodium Hypochlorite (Dakins Diluted ()) 1 applic BID TP Last administered on 11/26/18 08:33; Admin Dose 1 APPLIC; Start 11/07/18 at 09:00 Hydralazine HCl (Apresoline) 10 mg Q4H PRN IV sbp >160 Last administered on 11/20/18 14:44; Admin Dose 10 MG; Start 11/08/18 at 09:00 Famotidine (Pepcid) 20 mg DAILY NGT Last administered on 11/26/18 08:30; Admin Dose 20 MG; Start 11/11/18 at 09:30 Atropine Sulfate (Atropine) 0.5 mg PRN PRN IV SYMPTOMATIC BRADYCARDIA; Start 11/11/18 at 23:00 Heparin Sodium (Porcine) (Heparin (5000 Units/1ml)) 5,000 unit BID SC Last administered on 11/26/18 08:29; Admin Dose 5,000 UNIT; Start 11/14/18 at 21:00 Bisacodyl (Dulcolax Supp) 10 mg DAILY PRN [place] CONSTIPATION Last administered on 11/14/18 16:43; Admin Dose 10 MG; Start 11/14/18 at 16:30 Dextrose (D50w Syringe) 25 ml Q15M PRN IV .DECREASED GLUCOSE; Start 11/15/18 at 06:30 Dextrose (D50w Syringe) 50 ml Q15M PRN IV .DECREASED GLUCOSE; Start 11/15/18 at 06:30 Meropenem/Sodium Chloride 50 ml @ 100 mls/hr Q12 IVPB Last administered on 11/26/18 08:29; Admin Dose 100 MLS/HR; Start 11/15/18 at 14:30 IV Flush (NS 10 ml) 10 ml PRN PRN IV FLUSH LINE; Start 11/15/18 at 15:30 Fluconazole (Diflucan) 100 mg DAILY PO Last administered on 11/26/18 08:31; Admin Dose 100 MG; Start 11/16/18 at 14:00 Polyethylene Glycol (Miralax) 17 gm DAILY PRN NGT constipation; Start 11/17/18 at 09:00 Senna/Docusate Sodium (Senokot-S) 1 tab BID PRN NGT constipation; Start 11/17/18 at 09:00 Gabapentin (Neurontin Liquid) 300 mg BID PO Last administered on 11/26/18 08:42; Admin Dose 300 MG; Start 11/18/18 at 21:00 Levofloxacin (Levaquin) 250 mg DAILY@06 PO Last administered on 11/26/18 05:40; Admin Dose 250 MG; Start 11/19/18 at 06:00 Diagnostic Test (Pha) (Accu-Chek) 1 ea 02 XX Last administered on 11/26/18 02:00; Admin Dose 1 EA; Start 11/20/18 at 02:00 Insulin Aspart (Novolog Insulin Pen) NOVOLOG *MODERATE* ALGORI... Q4 SC Last administered on 11/26/18 12:33; Admin Dose 4 UNIT; Start 11/19/18 at 09:00 Ascorbic Acid (Vitamin C) 500 mg DAILY PO Last administered on 11/26/18 08:31; Admin Dose 500 MG; Start 11/20/18 at 09:00 Zinc Sulfate (Zinc Sulfate) 220 mg DAILY PO Last administered on 11/26/18 08:31; Admin Dose 220 MG; Start 11/20/18 at 09:00 Atorvastatin Calcium (Lipitor) 80 mg QHS PO Last administered on 11/25/18 20: 37; Admin Dose 80 MG; Start 11/19/18 at 21:00 Aspirin (Aspirin) 81 mg DAILY GTB Last administered on 11/26/18 08:31; Admin Dose 81 MG; Start 11/21/18 at 09:00 Furosemide (Lasix) 40 mg DAILY PO Last administered on 11/26/18 08:33; Admin Dose 40 MG; Start 11/21/18 at 09:00 Lisinopril (Zestril) 5 mg DAILY PO Last administered on 11/26/18 08:33; Admin Dose 5 MG; Start 11/21/18 at 09:00 Insulin Glargine (Lantus) 25 units DAILY@0800 SC Last administered on 11/26/18 08:29; Admin Dose 25 UNITS; Start 11/22/18 at 08:00 Quetiapine Fumarate (Seroquel) 25 mg BID PO Last administered on 11/26/18 08:30; Admin Dose 25 MG; Start 11/22/18 at 21:00 Lorazepam (Ativan) 0.5 mg Q6H PRN IV anxiety/agitation Last administered on 11/22/18 19:32; Admin Dose 0.5 MG; Start 11/22/18 at 11:00 Clopidogrel Bisulfate (plaVIX) 75 mg DAILY PO Last administered on 11/26/18 08:31; Admin Dose 75 MG; Start 11/23/18 at 09:00 Haloperidol (Haldol) 5 mg Q12H PRN IM agitation Last administered on 11/22/18 19:44; Admin Dose 5 MG; Start 11/22/18 at 14:30 Amlodipine Besylate (Norvasc) 5 mg DAILY PO Last administered on 11/26/18 0 8:32; Admin Dose 5 MG; Start 11/26/18 at 09:00 Hydralazine HCl (Apresoline) 75 mg TID PO Last administered on 11/26/18 12:28; Admin Dose 75 MG; Start 11/25/18 at 21:00 HERRERA MURILLO NP Nov 26, 2018 14:34
[2018-11-26] MEDS: ACETAMINOPHEN 325 MG TAB PO PRN (14:46)
--- NOTE | 2018-11-26 15:04 | CONS ---
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 Partial weight bearing with post op surgical shoe to left foot. No further podiatric procedures planned at this time. Offload heels with pillows and/or heel protectors. Consultation Date/Type/Reason Admit Date/Time Nov 04, 2018 at 07:34 Initial Consult Date Requesting Provider: KARL WOOD MD Date/Time of Note DATE: 11/26/18 TIME: 15:04 24 HR Interval Summary Free Text/Dictation No acute events overnight. Appears less confused and more cooperative Exam/Review of Systems Exam Vitals Vital Signs Date Temp Pulse Resp B/P (MAP) Pulse Ox O2 O2 Flow FiO2 Time Delivery Rate 11/26/18 97.8 85 22 122/60 96 Nasal 12:25 (80) Cannula 11/26/18 3.0 07:45 Intake and Output 11/25/18 11/25/18 11/26/18 1515:00 23:00 07:00 IntakeIntake Total 470 ml 770 ml OutputOutput Total 1200 ml 2000 ml BalanceBalance 470 ml -430 ml -2000 ml Exam Left hallux ulceration 1.0 x 0.8 x 0.1cm granular wound base, no probing to b one, no purulence no proximal streaking. Left 5th digit amputation site without wound dehiscence, sutures in place, mild maceration noted Absent protective sensations Bypass incision site remains closed with skin gurpreet Left 2nd digit amputation site appreciated. No erythema noted. Foot warm to touch Results Result Diagram: 11/26/18 0559 11/26/18 0559 Results 24hrs Laboratory Tests Test 11/25/18 17:42 11/25/18 20:48 11/26/18 01:42 11/26/18 05:42 Bedside Glucose 119 145 127 150 Test 11/26/18 05:59 11/26/18 08:27 11/26/18 12:25 White Blood Count 8.3 # Red Blood Count 3.75 L Hemoglobin 11.0 L Hematocrit 34.6 L Mean Corpuscular Volume 92.3 Mean Corpuscular 29.3 Hemoglobin Mean Corpuscular 31.8 L Hemoglobin Concent Red Cell Distribution 13.6 Width Platelet Count 328 Mean Platelet Volume 11.4 H Immature Granulocytes % 0.400 Neutrophils % 72.4 Lymphocytes % 13.6 L Monocytes % 9.1 Eosinophils % 4.3 Basophils % 0.2 Nucleated Red Blood 0.0 Cells % Immature Granulocytes # 0.030 Neutrophils # 6.0 Lymphocytes # 1.1 Monocytes # 0.8 Eosinophils # 0.4 Basophils # 0.0 Nucleated Red Blood 0.0 Cells # Sodium Level 140 Potassium Level 4.0 Chloride Level 105 Carbon Dioxide Level 33 H Anion Gap 2 L Blood Urea Nitrogen 21 H Creatinine 0.96 Glucose Level 130 # Calcium Level 8.5 Phosphorus Level 2.1 L Magnesium Level 2.0 Albumin 3.1 L Bedside Glucose 121 203 Medications Medication Current Medications Ergocalciferol (Drisdol) 50,000 unit Sa PO Last administered on 11/23/18at 17:10; Admin Dose 50,000 UNIT; Start 11/09/18 at 09:00 Miscellaneous Medication (Bystolic) 20 mg DAILY PO Last administered on 11/11/18at 09:03; Admin Dose 20 MG; Start 11/04/18 at 09:00; Status Hold Clonidine (Catapres) 0.1 mg Q6H PRN PO SBP>160 Last administered on 11/19/18at 03:04; Admin Dose 0.1 MG; Start 11/04/18 at 09:00 IV Flush (NS 3 ml) 3 ml PER PROTOCOL IV ; Start 11/04/18 at 09:00 Ondansetron HCl (Zofran Inj) 4 mg Q6H PRN IV NAUSEA/VOMITING; Start 11/04/18 at 09:00 Acetaminophen (Tylenol Tab) 650 mg Q6H PRN PO .PAIN 1-3 OR TEMP Last administ ered on 11/26/18at 14:46; Admin Dose 650 MG; Start 11/04/18 at 09:00 Miscellaneous Information 1 ea NOTE XX ; Start 11/04/18 at 09:00 Glucose (Glutose) 15 gm Q15M PRN PO DECREASED GLUCOSE; Start 11/04/18 at 09:00 Glucose (Glutose) 22.5 gm Q15M PRN PO DECREASED GLUCOSE; Start 11/04/18 at 09:00 Dextrose (D50w Syringe) 25 ml Q15M PRN IV DECREASED GLUCOSE; Start 11/04/18 at 09:00 Dextrose (D50w Syringe) 50 ml Q15M PRN IV DECREASED GLUCOSE; Start 11/04/18 at 09:00 Glucagon (Glucagen) 1 mg Q15M PRN IM DECREASED GLUCOSE; Start 11/04/18 at 09:00 Glucose (Glutose) 15 gm Q15M PRN BUCCAL DECREASED GLUCOSE; Start 11/04/18 at 09:00 Miscellaneous Information Patients own medicat... BID@10,16 XX Last administered on 11/20/18 16:16; Admin Dose 1 EA; Start 11/04/18 at 16:00 Povidone Iodine (Povidone-Iodine) 1 applic BID TOP Last administered on 11/26/18 08:33; Admin Dose 1 APPLIC; Start 11/05/18 at 21:00 Sodium Hypochlorite (Dakins Diluted (40)) 1 applic BID TP Last administered on 11/26/18 08:33; Admin Dose 1 APPLIC; Start 11/07/18 at 09:00 Hydralazine HCl (Apresoline) 10 mg Q4H PRN IV sbp >160 Last administered on 11/20/18 14:44; Admin Dose 10 MG; Start 11/08/18 at 09:00 Famotidine (Pepcid) 20 mg DAILY NGT Last administered on 11/26/18 08:30; Admin Dose 20 MG; Start 11/11/18 at 09:30 Atropine Sulfate (Atropine) 0.5 mg PRN PRN IV SYMPTOMATIC BRADYCARDIA; Start 11/11/18 at 23:00 Heparin Sodium (Porcine) (Heparin (5000 Units/1ml)) 5,000 unit BID SC Last administered on 11/26/18 08:29; Admin Dose 5,000 UNIT; Start 11/14/18 at 21:00 Bisacodyl (Dulcolax Supp) 10 mg DAILY PRN [place] CONSTIPATION Last administered on 11/14/18 16:43; Admin Dose 10 MG; Start 11/14/18 at 16:30 Dextrose (D50w Syringe) 25 ml Q15M PRN IV .DECREASED GLUCOSE; Start 11/15/18 at 06:30 Dextrose (D50w Syringe) 50 ml Q15M PRN IV .DECREASED GLUCOSE; Start 11/15/18 at 06:30 IV Flush (NS 10 ml) 10 ml PRN PRN IV FLUSH LINE; Start 11/15/18 at 15:30 Polyethylene Glycol (Miralax) 17 gm DAILY PRN NGT constipation; Start 11/17/18 at 09:00 Senna/Docusate Sodium (Senokot-S) 1 tab BID PRN NGT constipation; Start 11/17/18 at 09:00 Gabapentin (Neurontin Liquid) 300 mg BID PO Last administered on 11/26/18 08:42 ; Admin Dose 300 MG; Start 11/18/18 at 21:00 Diagnostic Test (Pha) (Accu-Chek) 1 ea 02 XX Last administered on 11/26/18 02:00; Admin Dose 1 EA; Start 11/20/18 at 02:00 Insulin Aspart (Novolog Insulin Pen) NOVOLOG *MODERATE* ALGORI... Q4 SC Last administered on 11/26/18 12:33; Admin Dose 4 UNIT; Start 11/19/18 at 09:00 Ascorbic Acid (Vitamin C) 500 mg DAILY PO Last administered on 11/26/18 08:31; Admin Dose 500 MG; Start 11/20/18 at 09:00 Zinc Sulfate (Zinc Sulfate) 220 mg DAILY PO Last administered on 11/26/18 08:31; Admin Dose 220 MG; Start 11/20/18 at 09:00 Atorvastatin Calcium (Lipitor) 80 mg QHS PO Last administered on 11/25/18 20:37; Admin Dose 80 MG; Start 11/19/18 at 21:00 Aspirin (Aspirin) 81 mg DAILY GTB Last administered on 11/26/18 08:31; Admin Dose 81 MG; Start 11/21/18 at 09:00 Furosemide (Lasix) 40 mg DAILY PO Last administered on 11/26/18 08:33; Admin Dose 40 MG; Start 11/21/18 at 09:00 Lisinopril (Zestril) 5 mg DAILY PO Last administered on 11/26/18 08:33; Admin Dose 5 MG; Start 11/21/18 at 09:00 Insulin Glargine (Lantus) 25 units DAILY@0800 SC Last administered on 11/26/18 08:29; Admin Dose 25 UNITS; Start 11/22/18 at 08:00 Quetiapine Fumarate (Seroquel) 25 mg BID PO Last administered on 11/26/18 08:30; Admin Dose 25 MG; Start 11/22/18 at 21:00 Lorazepam (Ativan) 0.5 mg Q6H PRN IV anxiety/agitation Last administered on 11/22/18 19:32; Admin Dose 0.5 MG; Start 11/22/18 at 11:00 Clopidogrel Bisulfate (plaVIX) 75 mg DAILY PO Last administered on 11/26/18 08:31; Admin Dose 75 MG; Start 11/23/18 at 09:00 Haloperidol (Haldol) 5 mg Q12H PRN IM agitation Last administered on 11/22/18 19:44; Admin Dose 5 MG; Start 11/22/18 at 14:30 Amlodipine Besylate (Norvasc) 5 mg DAILY PO Last administered on 11/26/18 08:32; Admin Dose 5 MG; Start 11/26/18 at 09:00 Hydralazine HCl (Apresoline) 75 mg TID PO Last administered on 11/26/18 12:28; Admin Dose 75 MG; Start 11/25/18 at 21:00 IVELISSE BLACKWELL DPM Nov 26, 2018 15:04
[2018-11-26 16:46] VITALS: BP 99/54; PULSE 81; RESP 22
[2018-11-26 20:11] VITALS: BP 130/63; PULSE 88; RESP 18
[2018-11-26 20:42] VITALS: BP 129/58; PULSE 85; RESP 16
[2018-11-26] MEDS: ATORVASTATIN 80 MG TAB PO SCH (21:14)
[2018-11-27] MEDS: ACCU-CHEK XX SCH (01:18)
[2018-11-27 02:57] VITALS: BP 115/52; PULSE 85; RESP 16
[2018-11-27 08:00] VITALS: BP 97/42; PULSE 89; RESP 20
[2018-11-27] MEDS ORDERED: INSULIN ASPART [NOVOLOG] 3 ML PEN SC SCH (08:00)
[2018-11-27] MEDS: INSULIN ASPART [NOVOLOG] 3 ML PEN SC SCH ×4 (08:28→20:47)
[2018-11-27] MEDS: INSULIN GLARGINE [LANTus] (100 UNITS/ML) SYG SC SCH (08:29)
[2018-11-27] MEDS: HEPARIN 5,000 UNIT/1 ML VIAL SC SCH ×2 (08:31→20:35)
--- NOTE | 2018-11-27 08:47 | PN ---
DATE: 11/27/2018 SUBJECTIVE: The patient is stable. No events overnight. The patient was transferred to med/surg. OBJECTIVE: VITAL SIGNS: Blood pressure is 115/52, respiration 16, pulse 85, temperature 98.5. HEENT: Head is normocephalic. NECK: Supple. HEART: Regular rate. LUNGS: Show diminished breath sounds at the base. ABDOMEN: Soft, nontender to palpation without rebound or guarding. EXTREMITIES: Negative for clubbing, cyanosis, or edema. DERMATOLOGIC: No rashes. MUSCULOSKELETAL: No joint effusion. NEUROLOGIC: No change in exam. MEDICATIONS: Reviewed. LABORATORY DATA: Reviewed. IMAGING STUDIES: Have been reviewed. ASSESSMENT AND PLAN: 1. Nonoliguric acute kidney injury. Etiology is secondary to hemodynamics, tubular injury. Renal f unction improved. Continue current treatment plan. Continue to monitor. 2. Volume overload secondary to acute heart failure. The patient is currently euvolemic on exam. C ontinue current diuretic regimen. 3. Anemia. Monitor hemoglobin and hematocrit levels. 4. Mineral bone disorder. Monitor calcium and phosphorus levels. 5. Status post respiratory failure. 6. Arrhythmia. Continue to monitor. 7. Peripheral vascular disease, status post iliofemoral bypass. 8. Left toe gangrene, status post amputation. 9. Hypertension. Continue current blood pressure regimen. 10. Acute encephalopathy. Etiology is toxic metabolic. 11. Dyslipidemia. Continue statin therapy. 12. Status post cardiac arrest. We will follow the patient as needed. Dictated By: JEAN CLAUDE RUFFIN/NTS Conf#: [id number] DID#: [id number] CC: TOMASA SCOTT;*EndCC*
[2018-11-27] MEDS: AMLODIPINE 5 MG TAB PO SCH (09:00)
[2018-11-27] MEDS: ZINC SULFATE 220 MG CAP PO SCH (09:14)
[2018-11-27] MEDS: CLOPIDOGREL 75 MG TAB PO SCH (09:14)
[2018-11-27] MEDS: FAMOTIDINE 20 MG TAB NGT SCH (09:14)
[2018-11-27] MEDS: ASPIRIN 81 MG TAB GTB SCH (09:14)
[2018-11-27] MEDS: ASCORBIC ACID 500 MG TAB PO SCH (09:14)
[2018-11-27] MEDS: GABAPENTIN (50 MG/ML PO SYG) PO SCH ×2 (10:08→20:33)
[2018-11-27] MEDS: FUROSEMIDE 40 MG TAB PO SCH (10:08)
[2018-11-27] MEDS: LISINOPRIL 5 MG TAB PO SCH (10:09)
--- NOTE | 2018-11-27 11:36 | CONS ---
Assessment/Plan Assessment/Plan Hospital Course (Demo Recall) No acute events looks comfortable Antimicrobials: none Indwelling: Vora, PICC line Physical examination: Well-developed elderly man who is in no distress head atraumatic normocephalic neck is supple chest rise symmetrical breath sounds diminished bases heart S1-S2 abdomen soft bowel sounds present extremities with left foot dressing intact Assessment: 1. Status post cardiac arrest 2. Non-ST elevation DE 3. Status post acute respiratory failure, possibly aspirated 4. Left foot gangrene 5. Peripheral arterial disease status post left femoral to posterior tibial bypass 11/08/18 6. Diabetes 7. History of left foot second toe amputation 8. Acute kidney insufficiency 9. Acute encephalopathy with a new radiographic findings per CT yesterday Plan: Stable, off antibiotics Consultation Date/Type/Reason Admit Date/Time Nov 04, 2018 at 07:34 Initial Consult Date Type of Consult id Requesting Provider: KARL WOOD MD Date/Time of Note DATE: 11/27/18 TIME: 11:35 Exam/Review of Systems Exam Vitals Vital Signs Date Temp Pulse Resp B/P (MAP) Pulse Ox O2 O2 Flow FiO2 Time Delivery Rate 11/27/18 99.1 89 20 97/42 (60) 94 08:00 11/26/18 3.0 23:47 11/26/18 Nasal 16:46 Cannula Intake and Output 11/26/18 11/26/18 11/27/18 1515:00 23:00 07:00 IntakeIntake Total 960 ml OutputOutput Total 451 ml 2000 ml BalanceBalance 509 ml -2000 ml Results Result Diagram: 11/27/18 0646 11/27/18 0646 Results 24hrs Laboratory Tests Test 11/26/18 12:25 11/26/18 17:29 11/26/18 21:14 11/27/18 01:55 Bedside Glucose 203 127 190 182 Test 11/27/18 06:46 11/27/18 07:51 White Blood Count 6.9 Red Blood Count 3.40 L Hemoglobin 10.2 L Hematocrit 31.4 L Mean Corpuscular 92.4 Volume Mean Corpuscular 30.0 Hemoglobin Mean Corpuscular 32.5 Hemoglobin Concent Red Cell Distribution 13.4 Width Platelet Count 286 Mean Platelet Volume 11.6 H Immature Granulocytes 0.400 % Neutrophils % 71.1 Lymphocytes % 12.4 L Monocytes % 11.2 H Eosinophils % 4.5 Basophils % 0.4 Nucleated Red Blood 0.0 Cells % Immature Granulocytes 0.030 # Neutrophils # 4.9 Lymphocytes # 0.9 Monocytes # 0.8 Eosinophils # 0.3 Basophils # 0.0 Nucleated Red Blood 0.0 Cells # Sodium Level 141 Potassium Level 3.9 Chloride Level 106 Carbon Dioxide Level 29 Anion Gap 6 Blood Urea Nitrogen 18 Creatinine 0.89 Glucose Level 152 Calcium Level 8.1 L Phosphorus Level 2.5 Magnesium Level 1.8 Albumin 2.8 L Bedside Glucose 148 Medications Medication Current Medications Ergocalciferol (Drisdol) 50,000 unit Sa PO Last administered on 11/23/18at 17:10; Admin Dose 50,000 UNIT; Start 11/09/18 at 09:00 Miscellaneous Medication (Bystolic) 20 mg DAILY PO Last administered on 11/11/18at 09:03; Admin Dose 20 MG; Start 11/04/18 at 09:00; Status Hold Clonidine (Catapres) 0.1 mg Q6H PRN PO SBP>160 Last administered on 11/19/18at 03:04; Admin Dose 0.1 MG; Start 11/04/18 at 09:00 IV Flush (NS 3 ml) 3 ml PER PROTOCOL IV ; Start 11/04/18 at 09:00 Ondansetron HCl (Zofran Inj) 4 mg Q6H PRN IV NAUSEA/VOMITING; Start 11/04/18 at 09:00 Acetaminophen (Tylenol Tab) 650 mg Q6H PRN PO .PAIN 1-3 OR TEMP Last administered on 11/26/18at 14:46; Admin Dose 650 MG; Start 11/04/18 at 09:00 Miscellaneous Information 1 ea NOTE XX ; Start 11/04/18 at 09:00 Glucose (Glutose) 15 gm Q15M PRN PO DECREASED GLUCOSE; Start 11/04/18 at 09:00 Glucose (Glutose) 22.5 gm Q15M PRN PO DECREASED GLUCOSE; Start 11/04/18 at 09:00 Dextrose (D50w Syringe) 25 ml Q15M PRN IV DECREASED GLUCOSE; Start 11/04/18 at 09:00 Dextrose (D50w Syringe) 50 ml Q15M PRN IV DECREASED GLUCOSE; Start 11/04/18 at 09:00 Glucagon (Glucagen) 1 mg Q15M PRN IM DECREASED GLUCOSE; Start 11/04/18 at 09:00 Glucose (Glutose) 15 gm Q15M PRN BUCCAL DECREASED GLUCOSE; Start 11/04/18 at 09:00 Miscellaneous Information Patients own medicat... BID@10,16 XX Last administered on 11/20/18 16:16; Admin Dose 1 EA; Start 11/04/18 at 16:00 Sodium Hypochlorite (Dakins Diluted ()) 1 applic BID TP Last administered on 11/26/18 21:15; Admin Dose 1 APPLIC; Start 11/07/18 at 09:00 Hydralazine HCl (Apresoline) 10 mg Q4H PRN IV sbp >160 Last administered on 11/20/18 14:44; Admin Dose 10 MG; Start 11/08/18 at 09:00 Famotidine (Pepcid) 20 mg DAILY NGT Last administered on 11/27/18 09:14; Admin Dose 20 MG; Start 11/11/18 at 09:30 Atropine Sulfate (Atropine) 0.5 mg PRN PRN IV SYMPTOMATIC BRADYCARDIA; Start 11/11/18 at 23:00 Heparin Sodium (Porcine) (Heparin (5000 Units/1ml)) 5,000 unit BID SC Last administered on 11/27/18 08:31; Admin Dose 5,000 UNIT; Start 11/14/18 at 21:00 Bisacodyl (Dulcolax Supp) 10 mg DAILY PRN [place] CONSTIPATION Last administered on 11/14/18 16:43; Admin Dose 10 MG; Start 11/14/18 at 16:30 IV Flush (NS 10 ml) 10 ml PRN PRN IV FLUSH LINE; Start 11/15/18 at 15:30 Polyethylene Glycol (Miralax) 17 gm DAILY PRN NGT constipation; Start 11/17/18 at 09:00 Senna/Docusate Sodium (Senokot-S) 1 tab BID PRN NGT constipation; Start 11/17/18 at 09:00 Gabapentin (Neurontin Liquid) 300 mg BID PO Last administered on 11/26/18 21:34; Admin Dose 300 MG; Start 11/18/18 at 21:00 Diagnostic Test (Pha) (Accu-Chek) 1 ea 02 XX Last administered on 11/26/18 02:00; Admin Dose 1 EA; Start 11/20/18 at 02:00 Ascorbic Acid (Vitamin C) 500 mg DAILY PO Last administered on 11/27/18 09:14; Admin Dose 500 MG; Start 11/20/18 at 09:00 Zinc Sulfate (Zinc Sulfate) 220 mg DAILY PO Last administered on 11/27/18 09:14; Admin Dose 220 MG; Start 11/20/18 at 09:00 Atorvastatin Calcium (Lipitor) 80 mg QHS PO Last administered on 11/26/18 21:14; Admin Dose 80 MG; Start 11/19/18 at 21:00 Aspirin (Aspirin) 81 mg DAILY GTB Last administered on 11/27/18 09:14; Admin Dose 81 MG; Start 11/21/18 at 09:00 Furosemide (Lasix) 40 mg DAILY PO Last administered on 11/26/18 08:33; Admin Dose 40 MG; Start 11/21/18 at 09:00 Lisinopril (Zestril) 5 mg DAILY PO Last administered on 11/26/18 08:33; Admin Dose 5 MG; Start 11/21/18 at 09:00 Insulin Glargine (Lantus) 25 units DAILY@0800 SC Last administered on 11/27/18 08:29; Admin Dose 25 UNITS; Start 11/22/18 at 08:00 Lorazepam (Ativan) 0.5 mg Q6H PRN IV anxiety/agitation Last administered on 11/22/18 19:32; Admin Dose 0.5 MG; Start 11/22/18 at 11:00 Clopidogrel Bisulfate (plaVIX) 75 mg DAILY PO Last administered on 11/27/18 09:14; Admin Dose 75 MG; Start 11/23/18 at 09:00 Haloperidol (Haldol) 5 mg Q12H PRN IM agitation Last administered on 11/22/18 19:44; Admin Dose 5 MG; Start 11/22/18 at 14:30 Amlodipine Besylate (Norvasc) 5 mg DAILY PO Last administered on 11/26/18 08:32; Admin Dose 5 MG; Start 11/26/18 at 09:00 Hydralazine HCl (Apresoline) 75 mg TID PO Last administered on 11/26/18 21:15; Admin Dose 75 MG; Start 11/25/18 at 21:00 Quetiapine Fumarate (Seroquel) 25 mg QHS PO Last administered on 11/26/18at 21:14 ; Admin Dose 25 MG; Start 11/26/18 at 21:00 Insulin Aspart (Novolog Insulin Pen) NOVOLOG *MODERATE* ALGORITHM WITH MEALS BEDTIME SC Last administered on 11/27/18at 08:28; Admin Dose 2 UNIT; Start 11/26 at 21:07 HERRERA MURILLO NP Nov 27, 2018 11:36
[2018-11-27] MEDS: DAKINS 0.0125%(1/40) 473 ML SOLUTION TP SCH ×2 (11:47→20:49)
[2018-11-27 13:26] VITALS: BP 118/57; PULSE 90; RESP 18
[2018-11-27 14:30] VITALS: BP 122/69; PULSE 89; RESP 16
--- NOTE | 2018-11-27 15:15 | PN ---
Date/Time of Note Date/Time of Note DATE: 11/20/18 TIME: 15:14 Objective Vitals Vital Signs Date Temp Pulse Resp B/P (MAP) Pulse Ox O2 O2 Flow FiO2 Time Delivery Rate 11/27/18 98.7 90 18 118/57 95 13:26 (77) 11/26/18 3.0 23:47 11/26/18 Nasal 16:46 Cannula Intake and Output 11/26/18 11/26/18 11/27/18 1515:00 23:00 07:00 IntakeIntake Total 960 ml OutputOutput Total 451 ml 2000 ml BalanceBalance 509 ml -2000 ml Results Result Diagram: 11/27/18 0646 11/27/18 0646 Medications Medications Current Medications Ergocalciferol (Drisdol) 50,000 unit Sa PO Last administered on 11/23/18at 17:10; Admin Dose 50,000 UNIT; Start 11/09/18 at 09:00 Miscellaneous Medication (Bystolic) 20 mg DAILY PO Last administered on 11/11/18at 09:03; Admin Dose 20 MG; Start 11/04/18 at 09:00; Status Hold Clonidine (Catapres) 0.1 mg Q6H PRN PO SBP>160 Last administered on 11/19/18at 03:04; Admin Dose 0.1 MG; Start 11/04/18 at 09:00 IV Flush (NS 3 ml) 3 ml PER PROTOCOL IV ; Start 11/04/18 at 09:00 Ondansetron HCl (Zofran Inj) 4 mg Q6H PRN IV NAUSEA/VOMITING; Start 11/04/18 at 09:00 Acetaminophen (Tylenol Tab) 650 mg Q6H PRN PO .PAIN 1-3 OR TEMP Last administered on 11/26/18at 14:46; Admin Dose 650 MG; Start 11/04/18 at 09:00 Miscellaneous Information 1 ea NOTE XX ; Start 11/04/18 at 09:00 Glucose (Glutose) 15 gm Q15M PRN PO DECREASED GLUCOSE; Start 11/04/18 at 09:00 Glucose (Glutose) 22.5 gm Q15M PRN PO DECREASED GLUCOSE; Start 11/04/18 at 09:00 Dextrose (D50w Syringe) 25 ml Q15M PRN IV DECREASED GLUCOSE; Start 11/04/18 at 09:00 Dextrose (D50w Syringe) 50 ml Q15M PRN IV DECREASED GLUCOSE; Start 11/04/18 at 09:00 Glucagon (Glucagen) 1 mg Q15M PRN IM DECREASED GLUCOSE; Start 11/04/18 at 09:00 Glucose (Glutose) 15 gm Q15M PRN BUCCAL DECREASED GLUCOSE; Start 11/04/18 at 09:00 Miscellaneous Information Patients own medicat... BID@10,16 XX Last administered on 11/20/18 16:16; Admin Dose 1 EA; Start 11/04/18 at 16:00 Sodium Hypochlorite (Dakins Diluted ()) 1 applic BID TP Last administered on 11/27/18 11:47; Admin Dose 1 APPLIC; Start 11/07/18 at 09:00 Hydralazine HCl (Apresoline) 10 mg Q4H PRN IV sbp >160 Last administered on 11/20/18 14:44; Admin Dose 10 MG; Start 11/08/18 at 09:00 Famotidine (Pepcid) 20 mg DAILY NGT Last administered on 11/27/18 09:14; Admin Dose 20 MG; Start 11/11/18 at 09:30 Atropine Sulfate (Atropine) 0.5 mg PRN PRN IV SYMPTOMATIC BRADYCARDIA; Start 11/11/18 at 23:00 Heparin Sodium (Porcine) (Heparin (5000 Units/1ml)) 5,000 unit BID SC Last administered on 11/27/18 08:31; Admin Dose 5,000 UNIT; Start 11/14/18 at 21:00 Bisacodyl (Dulcolax Supp) 10 mg DAILY PRN [place] CONSTIPATION Last administered on 11/14/18at 16:43; Admin Dose 10 MG; Start 11/14/18 at 16:30 IV Flush (NS 10 ml) 10 ml PRN PRN IV FLUSH LINE; Start 11/15/18 at 15:30 Polyethylene Glycol (Miralax) 17 gm DAILY PRN NGT constipation; Start 11/17/18 at 09:00 Senna/Docusate Sodium (Senokot-S) 1 tab BID PRN NGT constipation; Start 11/17/18 at 09:00 Gabapentin (Neurontin Liquid) 300 mg BID PO Last administered on 11/26/18 21:34; Admin Dose 300 MG; Start 11/18/18 at 21:00 Diagnostic Test (Pha) (Accu-Chek) 1 ea 02 XX Last administered on 11/26/18 02:00; Admin Dose 1 EA; Start 11/20/18 at 02:00 Ascorbic Acid (Vitamin C) 500 mg DAILY PO Last administered on 11/27/18 09:14; Admin Dose 500 MG; Start 11/20/18 at 09:00 Zinc Sulfate (Zinc Sulfate) 220 mg DAILY PO Last administered on 11/27/18 09:14; Admin Dose 220 MG; Start 11/20/18 at 09:00 Atorvastatin Calcium (Lipitor) 80 mg QHS PO Last administered on 11/26/18 21:14; Admin Dose 80 MG; Start 11/19/18 at 21:00 Aspirin (Aspirin) 81 mg DAILY GTB Last administered on 11/27/18 09:14; Admin Dose 81 MG; Start 11/21/18 at 09:00 Furosemide (Lasix) 40 mg DAILY PO Last administered on 11/26/18 08:33; Admin Dose 40 MG; Start 11/21/18 at 09:00 Lisinopril (Zestril) 5 mg DAILY PO Last administered on 11/26/18 08:33; Admin Dose 5 MG; Start 11/21/18 at 09:00 Insulin Glargine (Lantus) 25 units DAILY@0800 SC Last administered on 11/27/18 08:29; Admin Dose 25 UNITS; Start 11/22/18 at 08:00 Lorazepam (Ativan) 0.5 mg Q6H PRN IV anxiety/agitation Last administered on 11/22/18 19:32; Admin Dose 0.5 MG; Start 11/22/18 at 11:00 Clopidogrel Bisulfate (plaVIX) 75 mg DAILY PO Last administered on 11/27/18 09:14; Admin Dose 75 MG; Start 11/23/18 at 09:00 Haloperidol (Haldol) 5 mg Q12H PRN IM agitation Last administered on 11/22/18 19:44; Admin Dose 5 MG; Start 11/22/18 at 14:30 Amlodipine Besylate (Norvasc) 5 mg DAILY PO Last administered on 11/26/18 08:32; Admin Dose 5 MG; Start 11/26/18 at 09:00 Hydralazine HCl (Apresoline) 75 mg TID PO Last administered on 11/26/18at 21:15; Admin Dose 75 MG; Start 11/25/18 at 21:00 Quetiapine Fumarate (Seroquel) 25 mg QHS PO Last administered on 11/26/18at 21:14; Admin Dose 25 MG; Start 11/26/18 at 21:00 Insulin Aspart (Novolog Insulin Pen) NOVOLOG *MODERATE* ALGORITHM WITH MEALS BEDTIME SC Last administered on 11/27/18at 11:49; Admin Dose 6 UNIT; Start 11/26/18 at 21:07 VTE Prophylaxis Risk score (from Ns)>0 risk: 4 SCD applied (from [facility] [place]): Yes Lines/Catheters IV Catheter Type: Vora in Place: No Assessment/Plan Hospital Course This note is intended for 11/20/18 Subjective Patient still having episodes of confusion and hallucinations about otherwise can respond normally Objective Physical exam General: Patient is laying in bed responding to questions however has episodes of confusion Mentation: Patient is alert and oriented x1 Head: Normocephalic atraumatic Eyes: EOMI, pupils reactive to light Neck: Supple, nontender, midline Respiratory: Coarse to auscultation bilaterally Cardiovascular: regular rate, no obvious murmurs Gastrointestinal: non-tender to palpation, bowel sounds heard. Neurological: Moves all extremities spontaneously Skin: No new skin lesions, surgical site bandaged, CDI assessment/Plan Acute encephalopathy -May be secondary to ICU delirium versus anoxic brain injury secondary to cardiac arrest versus residual effect of CVA -Neurology consulted -CT noted, has age-indeterminate infarct however it should be noted that patient's son stated that patient does have a history of infarct in the past and this may be that issue -MRI noted for small CVA, neuro recs appreciated Left frontal CVA -Discussed with neurology, small CVA -Aspirin and Plavix already on board due to vascular disease -Statin Questionable left-sided internal carotid artery stenosis -Per vascular recommendations, ordered a CT angiogram of the neck to further elucidate accurate stenosis and if actually 70% may consider carotid endarterectomy but will pending results. Acute hypoxic respiratory failure-resolving -Extubated, doing well - CT chest without contrast results noted - Pulmonology on board for vent management Cardiac arrest s/p ROSC - Cardiology on board and appreciate recommendations - ECHO with preserved EF left fifth toe gangrenous ulcer - ID on board and appreciate consultation. Will continue current antibiotics - Continue local wound care - Podiatry on board and will plan for further amputation in the near future once stable Severe peripheral vascular disease - s/p left femoral endarterectomy, iliofemoral bypass and femoral to posterior tibial bypass done on November 08, 2018 - Vascular surgery consultation appreciated -Continue aspirin and Plavix Diabetes Mellitus - A1c noted - insulin as needed Acute kidney injury- improving - nephrology consultation appreciated and most likely due to contrast induced nephropathy as well as cardiorenal. managing diuretics - continue monitoring and avoid nephrotoxic agents Essential HTN -Continue home medications at this time - BP stable Peripheral neuropathy - cont. gabapentin HLD - On statin Chronic anemia - Stable H&H. Monitor - no need for transfusions at this time Urinary retention - Urology on board and appreciate recommendations. Disposition -monitor delirium FRANTZ SCHWAB Nov 27, 2018 15:15
--- NOTE | 2018-11-27 15:28 | QN ---
Documentation Comment Doing well, walking today with PT. MS back to baseline. AFVSS L leg incisions are all healed and gurpreet were removed several days ago. 3+ graft and PT pulse, foot warm, amputation site healing well. - continue ASA / Plavix - OK for d/c from my standpoint - followup with me in the [facility] in 2 weeks KLEVER FOREMAN MD Nov 27, 2018 15:28
--- NOTE | 2018-11-27 15:35 | CONS ---
Assessment/Plan Assessment/Plan Hospital Course (Demo Recall) IMPRESSION: 1. Preoperative evaluation prior to possible need for peripheral revascularization surgery.-neg trop x 3 and NL EF by echo with no sig valve abnl. Echo repeat 11/13 with NL EF 2. Peripheral arterial disease with nonhealing gangrenous changes in left toe ulceration. 3. Hypertension, under reasonable control on current medications. 4. Dyslipidemia. 5. Diabetes mellitus. 6. s/p cardiopulmonary arrest 7. Bradycardic intermittent by tele 8. Positive troponin after arrest-? secondary to or primary to arrest, likely secondary to arrest, type 2 demans infarct, as no signifcant uptrend and now downtrended to negative 9. Resp failure-s/p extubation 10. CVA-Acute by MRI Recc: -Now on tele -Continue asa/plavix/statin -serial ecg's -Continue abx's and f/u cx data -continue steroids/bronchodilators -local wound care -Bystolic still held given initial bradycardia -heparin was d/c'd secondary to anemia requiring transfusions -follow volume status on daily lasix diuresis -follow MS closely with ongoing neuro eval for possible CVA -Continue now zestril and decrease norvasc/hydralazine further and continue as tolerated only. Consultation Date/Type/Reason Admit Date/Time Nov 04, 2018 at 07:34 Initial Consult Date 11/06/18 Type of Consult Cardiology Reason for Consultation HTN Requesting Provider: KARL WOOD MD Date/Time of Note DATE: 11/27/18 TIME: 15:33 Exam/Review of Systems Vital Signs Vitals Vital Signs Date Temp Pulse Resp B/P (MAP) Pulse Ox O2 O2 Flow FiO2 Time Delivery Rate 11/27/18 98.7 90 18 118/57 95 13:26 (77) 11/26/18 3.0 23:47 11/26/18 Nasal 16:46 Cannula Intake and Output 11/26/18 11/26/18 11/27/18 1515:00 23:00 07:00 IntakeIntake Total 960 ml OutputOutput Total 451 ml 2000 ml BalanceBalance 509 ml -2000 ml Exam Exam Review of Systems: CONSTITUTIONAL: No fevers, chills. PULMONARY: No sob CARDIOVASCULAR: No chest pain/palpitations GASTROINTESTINAL: No nausea/vomiting. GENITOURINARY: No hematuria/dysuria. MUSCULOSKELETAL: No myagias/arthalgias. PSYCHIATRIC: The patient denies depression. NEUROLOGIC: No weakness Constitutional: alert Psych: no complaints Head: normocephalic ENMT: mucosa pink and moist Neck: supple, jvd (8-9 cm water) Respiratory: clear to auscultation Cardiovascular: regular rate and rhythm Gastrointestinal: soft, non-tender Musculoskeletal: muscle tone (normal) Extremities: other (LLE covered by dressing) Neurological: other (No focal deficits) Labs Result Diagram: 11/27/18 0646 11/27/18 0646 Results 24hrs Laboratory Tests Test 11/26/18 17:29 11/26/18 21:14 11/27/18 01:55 11/27/18 06:46 Bedside Glucose 127 190 182 White Blood Count 6.9 Red Blood Count 3.40 L Hemoglobin 10.2 L Hematocrit 31.4 L Mean Corpuscular 92.4 Volume Mean Corpuscular 30.0 Hemoglobin Mean Corpuscular 32.5 Hemoglobin Concent Red Cell 13.4 Distribution Width Platelet Count 286 Mean Platelet Volume 11.6 H Immature 0.400 Granulocytes % Neutrophils % 71.1 Lymphocytes % 12.4 L Monocytes % 11.2 H Eosinophils % 4.5 Basophils % 0.4 Nucleated Red Blood 0.0 Cells % Immature 0.030 Granulocytes # Neutrophils # 4.9 Lymphocytes # 0.9 Monocytes # 0.8 Eosinophils # 0.3 Basophils # 0.0 Nucleated Red Blood 0.0 Cells # Sodium Level 141 Potassium Level 3.9 Chloride Level 106 Carbon Dioxide Level 29 Anion Gap 6 Blood Urea Nitrogen 18 Creatinine 0.89 Glucose Level 152 Calcium Level 8.1 L Phosphorus Level 2.5 Magnesium Level 1.8 Albumin 2.8 L Test 11/27/18 07:51 11/27/18 11:46 Bedside Glucose 148 237 H Medications Medications Current Medications Ergocalciferol (Drisdol) 50,000 unit Sa PO Last administered on 11/23/18at 17:10; Admin Dose 50,000 UNIT; Start 11/09/18 at 09:00 Miscellaneous Medication (Bystolic) 20 mg DAILY PO Last administered on 11/11/18at 09:03; Admin Dose 20 MG; Start 11/04/18 at 09:00; Status Hold Clonidine (Catapres) 0.1 mg Q6H PRN PO SBP>160 Last administered on 11/19/18 03:04; Admin Dose 0.1 MG; Start 11/04/18 at 09:00 IV Flush (NS 3 ml) 3 ml PER PROTOCOL IV ; Start 11/04/18 at 09:00 Ondansetron HCl (Zofran Inj) 4 mg Q6H PRN IV NAUSEA/VOMITING; Start 11/04/18 at 09:00 Acetaminophen (Tylenol Tab) 650 mg Q6H PRN PO .PAIN 1-3 OR TEMP Last administered on 11/26/18at 14:46; Admin Dose 650 MG; Start 11/04/18 at 09:00 Miscellaneous Information 1 ea NOTE XX ; Start 11/04/18 at 09:00 Glucose (Glutose) 15 gm Q15M PRN PO DECREASED GLUCOSE; Start 11/04/18 at 09:00 Glucose (Glutose) 22.5 gm Q15M PRN PO DECREASED GLUCOSE; Start 11/04/18 at 09:00 Dextrose (D50w Syringe) 25 ml Q15M PRN IV DECREASED GLUCOSE; Start 11/04/18 at 09:00 Dextrose (D50w Syringe) 50 ml Q15M PRN IV DECREASED GLUCOSE; Start 11/04/18 at 09:00 Glucagon (Glucagen) 1 mg Q15M PRN IM DECREASED GLUCOSE; Start 11/04/18 at 09:00 Glucose (Glutose) 15 gm Q15M PRN BUCCAL DECREASED GLUCOSE; Start 11/04/18 at 09:00 Miscellaneous Information Patients own medicat... BID@10,16 XX Last administered on 11/20/18at 16:16; Admin Dose 1 EA; Start 11/04/18 at 16:00 Sodium Hypochlorite (Dakins Diluted ()) 1 applic BID TP Last administered on 11/27/18 11:47; Admin Dose 1 APPLIC; Start 11/07/18 at 09:00 Hydralazine HCl (Apresoline) 10 mg Q4H PRN IV sbp >160 Last administered on 11/20/18at 14:44; Admin Dose 10 MG; Start 11/08/18 at 09:00 Famotidine (Pepcid) 20 mg DAILY NGT Last administered on 11/27/18at 09:14; Admin Dose 20 MG; Start 11/11/18 at 09:30 Atropine Sulfate (Atropine) 0.5 mg PRN PRN IV SYMPTOMATIC BRADYCARDIA; Start 11/11/18 at 23:00 Heparin Sodium (Porcine) (Heparin (5000 Units/1ml)) 5,000 unit BID SC Last administered on 11/27/18 08:31; Admin Dose 5,000 UNIT; Start 11/14/18 at 21:00 Bisacodyl (Dulcolax Supp) 10 mg DAILY PRN SC CONSTIPATION Last administered on 11/14/18 16:43; Admin Dose 10 MG; Start 11/14/18 at 16:30 IV Flush (NS 10 ml) 10 ml PRN PRN IV FLUSH LINE; Start 11/15/18 at 15:30 Polyethylene Glycol (Miralax) 17 gm DAILY PRN NGT constipation; Start 11/17/18 at 09:00 Senna/Docusate Sodium (Senokot-S) 1 tab BID PRN NGT constipation; Start 11/17/18 at 09:00 Gabapentin (Neurontin Liquid) 300 mg BID PO Last administered on 11/26/18 21:34; Admin Dose 300 MG; Start 11/18/18 at 21:00 Diagnostic Test (Pha) (Accu-Chek) 1 ea 02 XX Last administered on 11/26/18 02:00; Admin Dose 1 EA; Start 11/20/18 at 02:00 Ascorbic Acid (Vitamin C) 500 mg DAILY PO Last administered on 11/27/18 09:14; Admin Dose 500 MG; Start 11/20/18 at 09:00 Zinc Sulfate (Zinc Sulfate) 220 mg DAILY PO Last administered on 11/27/18 09:14; Admin Dose 220 MG; Start 11/20/18 at 09:00 Atorvastatin Calcium (Lipitor) 80 mg QHS PO Last administered on 11/26/18 21:14; Admin Dose 80 MG; Start 11/19/18 at 21:00 Aspirin (Aspirin) 81 mg DAILY GTB Last administered on 11/27/18 09:14; Admin Dose 81 MG; Start 11/21/18 at 09:00 Furosemide (Lasix) 40 mg DAILY PO Last administered on 11/26/18 08:33; Admin Dose 40 MG; Start 11/21/18 at 09:00 Lisinopril (Zestril) 5 mg DAILY PO Last administered on 11/26/18 08:33; Admin Dose 5 MG; Start 11/21/18 at 09:00 Insulin Glargine (Lantus) 25 units DAILY@0800 SC Last administered on 11/27/18 08:29; Admin Dose 25 UNITS; Start 11/22/18 at 08:00 Lorazepam (Ativan) 0.5 mg Q6H PRN IV anxiety/agitation Last administered on 11/22/18 19:32; Admin Dose 0.5 MG; Start 11/22/18 at 11:00 Clopidogrel Bisulfate (plaVIX) 75 mg DAILY PO Last administered on 11/27/18 09:14; Admin Dose 75 MG; Start 11/23/18 at 09:00 Haloperidol (Haldol) 5 mg Q12H PRN IM agitation Last administered on 11/22/18 19:44; Admin Dose 5 MG; Start 11/22/18 at 14:30 Amlodipine Besylate (Norvasc) 5 mg DAILY PO Last administered on 11/26/18 08:32; Admin Dose 5 MG; Start 11/26/18 at 09:00 Hydralazine HCl (Apresoline) 75 mg TID PO Last administered on 11/26/18 21:15; Admin Dose 75 MG; Start 11/25/18 at 21:00 Quetiapine Fumarate (Seroquel) 25 mg QHS PO Last administered on 11/26/18 21:14; Admin Dose 25 MG; Start 11/26/18 at 21:00 Insulin Aspart (Novolog Insulin Pen) NOVOLOG *MODERATE* ALGORITHM WITH MEALS BEDTIME SC Last administered on 11/27/18 11:49; Admin Dose 6 UNIT; Start 11/26/18 at 21:07 KLEVER HUNT Nov 27, 2018 15:35
--- NOTE | 2018-11-27 16:04 | PN ---
Date/Time of Note Date/Time of Note DATE: 11/27/18 TIME: 15:59 Assessment/Plan VTE Prophylaxis Risk score (from Ns)>0 risk: 4 SCD applied (from Ns): Yes Pharmacological prophylaxis: other Lines/Catheters IV Catheter Type (from Nrsg): Urinary Cath still in place: No Assessment/Plan Assessment/Plan 1. 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 Will monitor off antibiotics at this time - Continue local wound care - Podiatry on board and appreciate consultation. no further procedures scheduled at this time 2. Left frontal CVA - Neurology on board and appreciate recommendations - continue on aspirin and Plavix - continue on statin 3. left-sided internal carotid artery stenosis - 25% per CT angiogram, continue aspirin, statin, Plavix per vascular surgeon 4. Acute hypoxic respiratory failure-resolving - Extubated, doing well - CT chest without contrast results noted - Pulmonology consultation appreciated 5. Cardiac arrest s/p ROSC - Cardiology on board and appreciate recommendations - ECHO with preserved EF 6. Severe peripheral vascular disease - s/p left femoral endarterectomy, iliofemoral bypass and femoral to posterior tibial bypass done on November 08, 2018 - Vascular surgery consultation appreciated - Continue aspirin and Plavix 7. Diabetes Mellitus - A1c noted - insulin as needed 8. Acute kidney injury- resolved - nephrology consultation appreciated and most likely due to contrast induced nephropathy as well as cardiorenal. - continue monitoring and avoid nephrotoxic agents 9. Essential HTN - Continue home medications at this time - BP stable 10. Peripheral neuropathy - cont. gabapentin 11. HLD - On statin 12. Chronic anemia - Stable H&H. Monitor - no need for transfusions at this time 13. Urinary retention - Urology on board and appreciate recommendations. 14. Disposition - Continue ambulating with PT and awaiting better insurance for SNF placement Result Diagram: 11/27/18 0646 11/27/18 0646 Results 24hrs Laboratory Tests Test 11/26/18 17:29 11/26/18 21:14 11/27/18 01:55 11/27/18 06:46 Bedside Glucose 127 190 182 White Blood Count 6.9 Red Blood Count 3.40 L Hemoglobin 10.2 L Hematocrit 31.4 L Mean Corpuscular 92.4 Volume Mean Corpuscular 30.0 Hemoglobin Mean Corpuscular 32.5 Hemoglobin Concent Red Cell 13.4 Distribution Width Platelet Count 286 Mean Platelet Volume 11.6 H Immature 0.400 Granulocytes % Neutrophils % 71.1 Lymphocytes % 12.4 L Monocytes % 11.2 H Eosinophils % 4.5 Basophils % 0.4 Nucleated Red Blood 0.0 Cells % Immature 0.030 Granulocytes # Neutrophils # 4.9 Lymphocytes # 0.9 Monocytes # 0.8 Eosinophils # 0.3 Basophils # 0.0 Nucleated Red Blood 0.0 Cells # Sodium Level 141 Potassium Level 3.9 Chloride Level 106 Carbon Dioxide Level 29 Anion Gap 6 Blood Urea Nitrogen 18 Creatinine 0.89 Glucose Level 152 Calcium Level 8.1 L Phosphorus Level 2.5 Magnesium Level 1.8 Albumin 2.8 L Test 11/27/18 07:51 11/27/18 11:46 Bedside Glucose 148 237 H Subjective 24 Hr Interval Summary Free Text/Dictation Patient is doing well and denies any acute issues. States hes ambulating better to the bathroom and out to the nursing station this am. compliant with using ortho shoe when ambulating. Exam/Review of Systems Exam Vitals Vital Signs Date Temp Pulse Resp B/P (MAP) Pulse Ox O2 O2 Flow FiO2 Time Delivery Rate 11/27/18 98.7 90 18 118/57 95 13:26 (77) 11/26/18 3.0 23:47 11/26/18 Nasal 16:46 Cannula Intake and Output 11/26/18 11/26/18 11/27/18 1515:00 23:00 07:00 IntakeIntake Total 960 ml OutputOutput Total 451 ml 2000 ml BalanceBalance 509 ml -2000 ml Exam General: Patient is laying in bed responding to questions. no acute overnight events. Neck: Supple, nontender, midline Respiratory: Diminished bilaterally. no wheezing or rhonchi Cardiovascular: regular rate and rhythm, no obvious murmurs Gastrointestinal: soft, non-tender to palpation, no distended, bowel sounds heard. Neurological: Moves all extremities spontaneously Skin: No new skin lesions, surgical site bandaged, CDI Results Results 24hrs Laboratory Tests Test 11/26/18 17:29 11/26/18 21:14 11/27/18 01:55 11/27/18 06:46 Bedside Glucose 127 190 182 White Blood Count 6.9 Red Blood Count 3.40 L Hemoglobin 10.2 L Hematocrit 31.4 L Mean Corpuscular 92.4 Volume Mean Corpuscular 30.0 Hemoglobin Mean Corpuscular 32.5 Hemoglobin Concent Red Cell 13.4 Distribution Width Platelet Count 286 Mean Platelet Volume 11.6 H Immature 0.400 Granulocytes % Neutrophils % 71.1 Lymphocytes % 12.4 L Monocytes % 11.2 H Eosinophils % 4.5 Basophils % 0.4 Nucleated Red Blood 0.0 Cells % Immature 0.030 Granulocytes # Neutrophils # 4.9 Lymphocytes # 0.9 Monocytes # 0.8 Eosinophils # 0.3 Basophils # 0.0 Nucleated Red Blood 0.0 Cells # Sodium Level 141 Potassium Level 3.9 Chloride Level 106 Carbon Dioxide Level 29 Anion Gap 6 Blood Urea Nitrogen 18 Creatinine 0.89 Glucose Level 152 Calcium Level 8.1 L Phosphorus Level 2.5 Magnesium Level 1.8 Albumin 2.8 L Test 11/27/18 07:51 11/27/18 11:46 Bedside Glucose 148 237 H Medications Medication Current Medications Ergocalciferol (Drisdol) 50,000 unit Sa PO Last administered on 11/23/18at 17:10; Admin Dose 50,000 UNIT; Start 11/09/18 at 09:00 Miscellaneous Medication (Bystolic) 20 mg DAILY PO Last administered on 11/11/18at 09:03; Admin Dose 20 MG; Start 11/04/18 at 09:00; Status Hold Clonidine (Catapres) 0.1 mg Q6H PRN PO SBP>160 Last administered on 11/19/18at 03:04; Admin Dose 0.1 MG; Start 11/04/18 at 09:00 IV Flush (NS 3 ml) 3 ml PER PROTOCOL IV ; Start 11/04/18 at 09:00 Ondansetron HCl (Zofran Inj) 4 mg Q6H PRN IV NAUSEA/VOMITING; Start 11/04/18 at 09:00 Acetaminophen (Tylenol Tab) 650 mg Q6H PRN PO .PAIN 1-3 OR TEMP Last administered on 11/26/18at 14:46; Admin Dose 650 MG; Start 11/04/18 at 09:00 Miscellaneous Information 1 ea NOTE XX ; Start 11/04/18 at 09:00 Glucose (Glutose) 15 gm Q15M PRN PO DECREASED GLUCOSE; Start 11/04/18 at 09:00 Glucose (Glutose) 22.5 gm Q15M PRN PO DECREASED GLUCOSE; Start 11/04/18 at 09:00 Dextrose (D50w Syringe) 25 ml Q15M PRN IV DECREASED GLUCOSE; Start 11/04/18 at 09:00 Dextrose (D50w Syringe) 50 ml Q15M PRN IV DECREASED GLUCOSE; Start 11/04/18 at 09:00 Glucagon (Glucagen) 1 mg Q15M PRN IM DECREASED GLUCOSE; Start 11/04/18 at 09:00 Glucose (Glutose) 15 gm Q15M PRN BUCCAL DECREASED GLUCOSE; Start 11/04/18 at 09 :00 Miscellaneous Information Patients own medicat... BID@ XX Last administered on 11/20/18 16:16; Admin Dose 1 EA; Start 11/04/18 at 16:00 Sodium Hypochlorite (Dakins Diluted ()) 1 applic BID TP Last administered on 11/27/18 11:47; Admin Dose 1 APPLIC; Start 11/07/18 at 09:00 Hydralazine HCl (Apresoline) 10 mg Q4H PRN IV sbp >160 Last administered on 11/20/18 14:44; Admin Dose 10 MG; Start 11/08/18 at 09:00 Famotidine (Pepcid) 20 mg DAILY NGT Last administered on 11/27/18 09:14; Admin Dose 20 MG; Start 11/11/18 at 09:30 Atropine Sulfate (Atropine) 0.5 mg PRN PRN IV SYMPTOMATIC BRADYCARDIA; Start 11/11/18 at 23:00 Heparin Sodium (Porcine) (Heparin (5000 Units/1ml)) 5,000 unit BID SC Last administered on 11/27/18 08:31; Admin Dose 5,000 UNIT; Start 11/14/18 at 21:00 Bisacodyl (Dulcolax Supp) 10 mg DAILY PRN ME CONSTIPATION Last administered on 11/14/18 16:43; Admin Dose 10 MG; Start 11/14/18 at 16:30 IV Flush (NS 10 ml) 10 ml PRN PRN IV FLUSH LINE; Start 11/15/18 at 15:30 Polyethylene Glycol (Miralax) 17 gm DAILY PRN NGT constipation; Start 11/17/18 at 09:00 Senna/Docusate Sodium (Senokot-S) 1 tab BID PRN NGT constipation; Start 11/17/18 at 09:00 Gabapentin (Neurontin Liquid) 300 mg BID PO Last administered on 11/26/18 21:34; Admin Dose 300 MG; Start 11/18/18 at 21:00 Diagnostic Test (Pha) (Accu-Chek) 1 ea 02 XX Last administered on 11/26/18 02:00; Admin Dose 1 EA; Start 11/20/18 at 02:00 Ascorbic Acid (Vitamin C) 500 mg DAILY PO Last administered on 11/27/18 09:14; Admin Dose 500 MG; Start 11/20/18 at 09:00 Zinc Sulfate (Zinc Sulfate) 220 mg DAILY PO Last administered on 11/27/18 09:14; Admin Dose 220 MG; Start 11/20/18 at 09:00 Atorvastatin Calcium (Lipitor) 80 mg QHS PO Last administered on 11/26/18 21:14; Admin Dose 80 MG; Start 11/19/18 at 21:00 Aspirin (Aspirin) 81 mg DAILY GTB Last administered on 11/27/18 09:14; Admin Dose 81 MG; Start 11/21/18 at 09:00 Furosemide (Lasix) 40 mg DAILY PO Last administered on 11/26/18 08:33; Admin Do se 40 MG; Start 11/21/18 at 09:00 Lisinopril (Zestril) 5 mg DAILY PO Last administered on 11/26/18 08:33; Admin Dose 5 MG; Start 11/21/18 at 09:00 Insulin Glargine (Lantus) 25 units DAILY@0800 SC Last administered on 11/27/18 08:29; Admin Dose 25 UNITS; Start 11/22/18 at 08:00 Lorazepam (Ativan) 0.5 mg Q6H PRN IV anxiety/agitation Last administered on 11/22/18 19:32; Admin Dose 0.5 MG; Start 11/22/18 at 11:00 Clopidogrel Bisulfate (plaVIX) 75 mg DAILY PO Last administered on 11/27/18 09:14; Admin Dose 75 MG; Start 11/23/18 at 09:00 Haloperidol (Haldol) 5 mg Q12H PRN IM agitation Last administered on 11/22/18 19:44; Admin Dose 5 MG; Start 11/22/18 at 14:30 Amlodipine Besylate (Norvasc) 5 mg DAILY PO Last administered on 11/26/18 08:32; Admin Dose 5 MG; Start 11/26/18 at 09:00 Quetiapine Fumarate (Seroquel) 25 mg QHS PO Last administered on 11/26/18at 21:14; Admin Dose 25 MG; Start 11/26/18 at 21:00 Insulin Aspart (Novolog Insulin Pen) NOVOLOG *MODERATE* ALGORITHM WITH MEALS BEDTIME SC Last administered on 11/27/18at 11:49; Admin Dose 6 UNIT; Start 11/26/18 at 21:07 Hydralazine HCl (Apresoline) 50 mg TID PO ; Start 11/27/18 at 21:00 KARL WOOD MD Nov 27, 2018 16:04
[2018-11-27 19:50] VITALS: BP 119/56; PULSE 90; RESP 17
[2018-11-27] MEDS: QUETIAPINE 25 MG TAB PO SCH (20:34)
[2018-11-27] MEDS: ATORVASTATIN 80 MG TAB PO SCH (20:34)
[2018-11-27] MEDS: ACETAMINOPHEN 325 MG TAB PO PRN (20:45)
[2018-11-28] MEDS: ACCU-CHEK XX SCH (02:00)
[2018-11-28 02:20] VITALS: BP 116/58; PULSE 86; RESP 18
[2018-11-28 08:00] VITALS: BP 97/60; PULSE 86; RESP 16
[2018-11-28] MEDS: INSULIN GLARGINE [LANTus] (100 UNITS/ML) SYG SC SCH (08:42)
[2018-11-28] MEDS: HEPARIN 5,000 UNIT/1 ML VIAL SC SCH ×2 (08:43→21:10)
[2018-11-28] MEDS: INSULIN ASPART [NOVOLOG] 3 ML PEN SC SCH ×4 (08:43→21:11)
[2018-11-28] MEDS: FAMOTIDINE 20 MG TAB NGT SCH (08:44)
[2018-11-28] MEDS: ASPIRIN 81 MG TAB GTB SCH (08:44)
[2018-11-28] MEDS: FUROSEMIDE 40 MG TAB PO SCH (08:49)
[2018-11-28] MEDS: AMLODIPINE 5 MG TAB PO SCH (08:50)
[2018-11-28] MEDS: ASCORBIC ACID 500 MG TAB PO SCH (08:50)
[2018-11-28] MEDS: ZINC SULFATE 220 MG CAP PO SCH (08:50)
[2018-11-28] MEDS: GABAPENTIN (50 MG/ML PO SYG) PO SCH ×2 (08:50→22:01)
[2018-11-28] MEDS: CLOPIDOGREL 75 MG TAB PO SCH (08:50)
[2018-11-28] MEDS: LISINOPRIL 5 MG TAB PO SCH (08:50)
[2018-11-28] MEDS: DAKINS 0.0125%(1/40) 473 ML SOLUTION TP SCH ×2 (08:52→21:11)
--- NOTE | 2018-11-28 11:28 | CONS ---
Assessment/Plan Assessment/Plan Hospital Course (Demo Recall) No acute events, all noted Antimicrobials: none Indwelling: Vora, PICC line Physical examination: Well-developed elderly man who is in no distress head atraumatic normocephalic neck is supple chest rise symmetrical breath sounds diminished bases heart S1-S2 abdomen soft bowel sounds present extremities with left foot dressing intact Assessment: 1. Status post cardiac arrest 2. Non-ST elevation [place] 3. Status post acute respiratory failure, possibly aspirated 4. Left foot gangrene 5. Peripheral arterial disease status post left femoral to posterior tibial bypass 11/08/18 6. Diabetes 7. History of left foot second toe amputation 8. Acute kidney insufficiency 9. Acute encephalopathy ==> improved Plan: Stable off antibiotics vascular rec-s noted Consultation Date/Type/Reason Admit Date/Time Nov 04, 2018 at 07:34 Initial Consult Date Type of Consult id Requesting Provider: KARL WOOD MD Date/Time of Note DATE: 11/28/18 TIME: 11:27 Exam/Review of Systems Exam Vitals Vital Signs Date Temp Pulse Resp B/P (MAP) Pulse Ox O2 O2 Flow FiO2 Time Delivery Rate 11/28/18 3.0 09:47 11/28/18 97.6 86 16 97/60 (72) 96 08:00 11/28/18 Room Air 02:20 Intake and Output 11/27/18 11/27/18 11/28/18 1515:00 23:00 07:00 IntakeIntake Total 480 ml OutputOutput Total 250 ml 2200 ml BalanceBalance 230 ml -2200 ml Results Result Diagram: 11/28/1861811/28/18618 Results 24hrs Laboratory Tests Test 11/27/18 11:46 11/27/18 17:17 11/27/18 20:40 11/28/18 01:56 Bedside Glucose 237 H 162 218 238 H Test 11/28/18 06:19 11/28/18 08:12 White Blood Count 6.0 Red Blood Count 3.42 L Hemoglobin 10.0 L Hematocrit 31.5 L Mean Corpuscular 92.1 Volume Mean Corpuscular 29.2 Hemoglobin Mean Corpuscular 31.7 L Hemoglobin Concent Red Cell 13.5 Distribution Width Platelet Count 260 Mean Platelet Volume 11.4 H Immature 0.300 Granulocytes % Neutrophils % 56.7 Lymphocytes % 25.0 Monocytes % 11.5 H Eosinophils % 5.8 Basophils % 0.7 Nucleated Red Blood 0.0 Cells % Immature 0.020 Granulocytes # Neutrophils # 3.4 Lymphocytes # 1.5 Monocytes # 0.7 Eosinophils # 0.4 Basophils # 0.0 Nucleated Red Blood 0.0 Cells # Sodium Level 137 Potassium Level 4.0 Chloride Level 104 Carbon Dioxide Level 28 Anion Gap 5 Blood Urea Nitrogen 20 Creatinine 0.97 Glucose Level 223 H Calcium Level 8.1 L Phosphorus Level 2.5 Magnesium Level 1.9 Albumin 2.8 L Bedside Glucose 189 Medications Medication Current Medications Ergocalciferol (Drisdol) 50,000 unit Sa PO Last administered on 11/23/18at 17:10; Admin Dose 50,000 UNIT; Start 11/09/18 at 09:00 Miscellaneous Medication (Bystolic) 20 mg DAILY PO Last administered on 11/11/18at 09:03; Admin Dose 20 MG; Start 11/04/18 at 09:00; Status Hold Clonidine (Catapres) 0.1 mg Q6H PRN PO SBP>160 Last administered on 11/19/18at 03:04; Admin Dose 0.1 MG; Start 11/04/18 at 09:00 IV Flush (NS 3 ml) 3 ml PER PROTOCOL IV ; Start 11/04/18 at 09:00 Ondansetron HCl (Zofran Inj) 4 mg Q6H PRN IV NAUSEA/VOMITING; Start 11/04/18 at 09:00 Acetaminophen (Tylenol Tab) 650 mg Q6H PRN PO .PAIN 1-3 OR TEMP Last administered on 11/27/18at 20:45; Admin Dose 650 MG; Start 11/04/18 at 09:00 Miscellaneous Information 1 ea NOTE XX ; Start 11/04/18 at 09:00 Glucose (Glutose) 15 gm Q15M PRN PO DECREASED GLUCOSE; Start 11/04/18 at 09:00 Glucose (Glutose) 22.5 gm Q15M PRN PO DECREASED GLUCOSE; Start 11/04/18 at 09:00 Dextrose (D50w Syringe) 25 ml Q15M PRN IV DECREASED GLUCOSE; Start 11/04/18 at 09:00 Dextrose (D50w Syringe) 50 ml Q15M PRN IV DECREASED GLUCOSE; Start 11/04/18 at 09:00 Glucagon (Glucagen) 1 mg Q15M PRN IM DECREASED GLUCOSE; Start 11/04/18 at 09:00 Glucose (Glutose) 15 gm Q15M PRN BUCCAL DECREASED GLUCOSE; Start 11/04/18 at 09:00 Miscellaneous Information Patients own medicat... BID@10,16 XX Last administered on 11/20/18 16:16; Admin Dose 1 EA; Start 11/04/18 at 16:00 Sodium Hypochlorite (Dakins Diluted ()) 1 applic BID TP Last administered on 11/28/18 08:52; Admin Dose 1 APPLIC; Start 11/07/18 at 09:00 Hydralazine HCl (Apresoline) 10 mg Q4H PRN IV sbp >160 Last administered on 11/20/18 14:44; Admin Dose 10 MG; Start 11/08/18 at 09:00 Famotidine (Pepcid) 20 mg DAILY NGT Last administered on 11/28/18 08:44; Admin Dose 20 MG; Start 11/11/18 at 09:30 Atropine Sulfate (Atropine) 0.5 mg PRN PRN IV SYMPTOMATIC BRADYCARDIA; Start 11/11/18 at 23:00 Heparin Sodium (Porcine) (Heparin (5000 Units/1ml)) 5,000 unit BID SC Last administered on 11/28/18 08:43; Admin Dose 5,000 UNIT; Start 11/14/18 at 21:00 Bisacodyl (Dulcolax Supp) 10 mg DAILY PRN [place] CONSTIPATION Last administered on 11/14/18 16:43; Admin Dose 10 MG; Start 11/14/18 at 16:30 IV Flush (NS 10 ml) 10 ml PRN PRN IV FLUSH LINE; Start 11/15/18 at 15:30 Polyethylene Glycol (Miralax) 17 gm DAILY PRN NGT constipation; Start 11/17/18 at 09:00 Senna/Docusate Sodium (Senokot-S) 1 tab BID PRN NGT constipation; Start 11/17/18 at 09:00 Gabapentin (Neurontin Liquid) 300 mg BID PO Last administered on 11/28/18 08:50; Admin Dose 300 MG; Start 11/18/18 at 21:00 Diagnostic Test (Pha) (Accu-Chek) 1 ea 02 XX Last administered on 11/26/18 02:00; Admin Dose 1 EA; Start 11/20/18 at 02:00 Ascorbic Acid (Vitamin C) 500 mg DAILY PO Last administered on 11/28/18 08:50; Admin Dose 500 MG; Start 11/20/18 at 09:00 Zinc Sulfate (Zinc Sulfate) 220 mg DAILY PO Last administered on 11/28/18 08:50; Admin Dose 220 MG; Start 11/20/18 at 09:00 Atorvastatin Calcium (Lipitor) 80 mg QHS PO Last administered on 11/27/18 20:34; Admin Dose 80 MG; Start 11/19/18 at 21:00 Aspirin (Aspirin) 81 mg DAILY GTB Last administered on 11/28/18 08:44; Admin Dose 81 MG; Start 11/21/18 at 09:00 Furosemide (Lasix) 40 mg DAILY PO Last administered on 11/26/18 08:33; Admin Dose 40 MG; Start 11/21/18 at 09:00 Lisinopril (Zestril) 5 mg DAILY PO Last administered on 11/26/18 08:33; Admin Dose 5 MG; Start 11/21/18 at 09:00 Insulin Glargine (Lantus) 25 units DAILY@0800 SC Last administered on 11/28/18 08:42; Admin Dose 25 UNITS; Start 11/22/18 at 08:00 Lorazepam (Ativan) 0.5 mg Q6H PRN IV anxiety/agitation Last administered on 11/22/18 19:32; Admin Dose 0.5 MG; Start 11/22/18 at 11:00 Clopidogrel Bisulfate (plaVIX) 75 mg DAILY PO Last administered on 11/28/18 08:50; Admin Dose 75 MG; Start 11/23/18 at 09:00 Haloperidol (Haldol) 5 mg Q12H PRN IM agitation Last administered on 11/22/18 19:44; Admin Dose 5 MG; Start 11/22/18 at 14:30 Amlodipine Besylate (Norvasc) 5 mg DAILY PO Last administered on 11/26/18 08:32; Admin Dose 5 MG; Start 11/26/18 at 09:00 Quetiapine Fumarate (Seroquel) 25 mg QHS PO Last administered on 7/10/19at 20:34; Admin Dose 25 MG; Start 11/26/18 at 21:00 Insulin Aspart (Novolog Insulin Pen) NOVOLOG *MODERATE* ALGORITHM WITH MEALS BEDTIME SC Last administered on 11/28/18at 08:43; Admin Dose 4 UNIT; Start 11/26/18 at 21:07 Hydralazine HCl (Apresoline) 50 mg TID PO Last administered on 11/27/18at 20:34; Admin Dose 50 MG; Start 11/27/18 at 21:00 HERRERA MURILLO NP Nov 28, 2018 11:28
[2018-11-28 12:32] VITALS: BP 106/62; PULSE 93; RESP 16
--- NOTE | 2018-11-28 12:45 | PN ---
Date/Time of Note Date/Time of Note DATE: 11/28/18 TIME: 12:39 Assessment/Plan VTE Prophylaxis Risk score (from Ns)>0 risk: 4 SCD applied (from Ns): Yes Pharmacological prophylaxis: NA/contraindicated Pharm contraindication: low risk/ambulating Lines/Catheters [facility] Saline Lock Urinary Cath still in place: Yes Reason Cath still needed: urinary retention Assessment/Plan Assessment/Plan 1. 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 Will monitor off antibiotics at this time - Continue local wound care - Podiatry on board and appreciate consultation. no further procedures scheduled at this time 2. Left frontal CVA - Neurology on board and appreciate recommendations - continue on aspirin and Plavix - continue on statin 3. left-sided internal carotid artery stenosis - 25% per CT angiogram, continue aspirin, statin, Plavix per vascular surgeon 4. Acute hypoxic respiratory failure-resolving - Extubated, doing well - CT chest without contrast results noted - Pulmonology consultation appreciated 5. Cardiac arrest s/p ROSC - Cardiology on board and appreciate recommendations - ECHO with preserved EF 6. Severe peripheral vascular disease - s/p left femoral endarterectomy, iliofemoral bypass and femoral to posterior tibial bypass done on November 08, 2018 - Vascular surgery consultation appreciated. no further intervention required. Continue aspirin and Plavix 7. Diabetes Mellitus - A1c noted - insulin as needed 8. Acute kidney injury- resolved - nephrology consultation appreciated 9. Essential HTN - Continue home medications at this time 10. Peripheral neuropathy - cont. gabapentin 11. HLD - On statin 12. Chronic anemia - Stable H&H. Monitor - no need for transfusions at this time 13. Urinary retention - Urology on board and appreciate recommendations. 14. Disposition - Continue ambulating with PT and awaiting better insurance for SNF placement Result Diagram: 11/28/18 0619 11/28/18 0619 Results 24hrs Laboratory Tests Test 11/27/18 17:17 11/27/18 20:40 11/28/18 01:56 11/28/18 06:19 Bedside Glucose 162 218 238 H White Blood Count 6.0 Red Blood Count 3.42 L Hemoglobin 10.0 L Hematocrit 31.5 L Mean Corpuscular 92.1 Volume Mean Corpuscular 29.2 Hemoglobin Mean Corpuscular 31.7 L Hemoglobin Concent Red Cell 13.5 Distribution Width Platelet Count 260 Mean Platelet Volume 11.4 H Immature 0.300 Granulocytes % Neutrophils % 56.7 Lymphocytes % 25.0 Monocytes % 11.5 H Eosinophils % 5.8 Basophils % 0.7 Nucleated Red Blood 0.0 Cells % Immature 0.020 Granulocytes # Neutrophils # 3.4 Lymphocytes # 1.5 Monocytes # 0.7 Eosinophils # 0.4 Basophils # 0.0 Nucleated Red Blood 0.0 Cells # Sodium Level 137 Potassium Level 4.0 Chloride Level 104 Carbon Dioxide Level 28 Anion Gap 5 Blood Urea Nitrogen 20 Creatinine 0.97 Glucose Level 223 H Calcium Level 8.1 L Phosphorus Level 2.5 Magnesium Level 1.9 Albumin 2.8 L Test 11/28/18 08:12 11/28/18 12:00 Bedside Glucose 189 236 H Subjective 24 Hr Interval Summary Free Text/Dictation Patient is doing well and states ambulated to the restroom alone using the walker. No acute overnight events. Exam/Review of Systems Exam Vitals Vital Signs Date Temp Pulse Resp B/P (MAP) Pulse Ox O2 O2 Flow FiO2 Time Delivery Rate 11/28/18 93 16 106/62 98 Room Air 12:32 (77) 11/28/18 3.0 09:47 11/28/18 97.6 08:00 Intake and Output 11/27/18 11/27/18 11/28/18 1515:00 23:00 07:00 IntakeIntake Total 480 ml OutputOutput Total 250 ml 2200 ml BalanceBalance 230 ml -2200 ml Exam General: Patient is laying in bed responding to questions. no acute overnight events. Neck: Supple Respiratory: Diminished bilaterally. no wheezing or rhonchi Cardiovascular: regular rate and rhythm, no obvious murmurs Gastrointestinal: soft, non-tender to palpation, no distended, bowel sounds heard. Neurological: Moves all extremities spontaneously Skin: No new skin lesions, surgical site bandaged, CDI Results Results 24hrs Laboratory Tests Test 11/27/18 17:17 11/27/18 20:40 11/28/18 01:56 11/28/18 06:19 Bedside Glucose 162 218 238 H White Blood Count 6.0 Red Blood Count 3.42 L Hemoglobin 10.0 L Hematocrit 31.5 L Mean Corpuscular 92.1 Volume Mean Corpuscular 29.2 Hemoglobin Mean Corpuscular 31.7 L Hemoglobin Concent Red Cell 13.5 Distribution Width Platelet Count 260 Mean Platelet Volume 11.4 H Immature 0.300 Granulocytes % Neutrophils % 56.7 Lymphocytes % 25.0 Monocytes % 11.5 H Eosinophils % 5.8 Basophils % 0.7 Nucleated Red Blood 0.0 Cells % Immature 0.020 Granulocytes # Neutrophils # 3.4 Lymphocytes # 1.5 Monocytes # 0.7 Eosinophils # 0.4 Basophils # 0.0 Nucleated Red Blood 0.0 Cells # Sodium Level 137 Potassium Level 4.0 Chloride Level 104 Carbon Dioxide Level 28 Anion Gap 5 Blood Urea Nitrogen 20 Creatinine 0.97 Glucose Level 223 H Calcium Level 8.1 L Phosphorus Level 2.5 Magnesium Level 1.9 Albumin 2.8 L Test 11/28/18 08:12 11/28/18 12:00 Bedside Glucose 189 236 H Medications Medication Current Medications Ergocalciferol (Drisdol) 50,000 unit Sa PO Last administered on 11/23/18at 17:10; Admin Dose 50,000 UNIT; Start 11/09/18 at 09:00 Miscellaneous Medication (Bystolic) 20 mg DAILY PO Last administered on 11/11/18at 09:03; Admin Dose 20 MG; Start 11/04/18 at 09:00; Status Hold Clonidine (Catapres) 0.1 mg Q6H PRN PO SBP>160 Last administered on 11/19/18at 03:04; Admin Dose 0.1 MG; Start 11/04/18 at 09:00 IV Flush (NS 3 ml) 3 ml PER PROTOCOL IV ; Start 11/04/18 at 09:00 Ondansetron HCl (Zofran Inj) 4 mg Q6H PRN IV NAUSEA/VOMITING; Start 11/04/18 at 09:00 Acetaminophen (Tylenol Tab) 650 mg Q6H PRN PO .PAIN 1-3 OR TEMP Last administered on 11/27/18at 20:45; Admin Dose 650 MG; Start 11/04/18 at 09:00 Miscellaneous Information 1 ea NOTE XX ; Start 11/04/18 at 09:00 Glucose (Glutose) 15 gm Q15M PRN PO DECREASED GLUCOSE; Start 11/04/18 at 09:00 Glucose (Glutose) 22.5 gm Q15M PRN PO DECREASED GLUCOSE; Start 11/04/18 at 09:00 Dextrose (D50w Syringe) 25 ml Q15M PRN IV DECREASED GLUCOSE; Start 11/04/18 at 09:00 Dextrose (D50w Syringe) 50 ml Q15M PRN IV DECREASED GLUCOSE; Start 11/04/18 at 09:00 Glucagon (Glucagen) 1 mg Q15M PRN IM DECREASED GLUCOSE; Start 11/04/18 at 09:00 Glucose (Glutose) 15 gm Q15M PRN BUCCAL DECREASED GLUCOSE; Start 11/04/18 at 09:00 Miscellaneous Information Patients own medicat... BID@10,16 XX Last administered on 11/20/18 16:16; Admin Dose 1 EA; Start 11/04/18 at 16:00 Sodium Hypochlorite (Dakins Diluted ()) 1 applic BID TP Last administered on 11/28/18 08:52; Admin Dose 1 APPLIC; Start 11/07/18 at 09:00 Hydralazine HCl (Apresoline) 10 mg Q4H PRN IV sbp >160 Last administered on 11/20/18at 14:44; Admin Dose 10 MG; Start 11/08/18 at 09:00 Famotidine (Pepcid) 20 mg DAILY NGT Last administered on 11/28/18 08:44; Admin Dose 20 MG; Start 11/11/18 at 09:30 Atropine Sulfate (Atropine) 0.5 mg PRN PRN IV SYMPTOMATIC BRADYCARDIA; Start 11/11/18 at 23:00 Heparin Sodium (Porcine) (Heparin (5000 Units/1ml)) 5,000 unit BID SC Last administered on 11/28/18 08:43; Admin Dose 5,000 UNIT; Start 11/14/18 at 21:00 Bisacodyl (Dulcolax Supp) 10 mg DAILY PRN [place] CONSTIPATION Last administered on 11/14/18at 16:43; Admin Dose 10 MG; Start 11/14/18 at 16:30 IV Flush (NS 10 ml) 10 ml PRN PRN IV FLUSH LINE; Start 11/15/18 at 15:30 Polyethylene Glycol (Miralax) 17 gm DAILY PRN NGT constipation; Start 11/17/18 at 09:00 Senna/Docusate Sodium (Senokot-S) 1 tab BID PRN NGT constipation; Start 11/17/18 at 09:00 Gabapentin (Neurontin Liquid) 300 mg BID PO Last administered on 11/28/18 08:50; Admin Dose 300 MG; Start 11/18/18 at 21:00 Diagnostic Test (Pha) (Accu-Chek) 1 ea 02 XX Last administered on 11/26/18 02:00; Admin Dose 1 EA; Start 11/20/18 at 02:00 Ascorbic Acid (Vitamin C) 500 mg DAILY PO Last administered on 11/28/18 08:50; Admin Dose 500 MG; Start 11/20/18 at 09:00 Zinc Sulfate (Zinc Sulfate) 220 mg DAILY PO Last administered on 11/28/18 08:50; Admin Dose 220 MG; Start 11/20/18 at 09:00 Atorvastatin Calcium (Lipitor) 80 mg QHS PO Last administered on 11/27/18 20:34; Admin Dose 80 MG; Start 11/19/18 at 21:00 Aspirin (Aspirin) 81 mg DAILY GTB Last administered on 11/28/18 08:44; Admin Dose 81 MG; Start 11/21/18 at 09:00 Furosemide (Lasix) 40 mg DAILY PO Last administered on 11/26/18 08:33; Admin Dose 40 MG; Start 11/21/18 at 09:00 Lisinopril (Zestril) 5 mg DAILY PO Last administered on 11/26/18 08:33; Admin Dose 5 MG; Start 11/21/18 at 09:00 Insulin Glargine (Lantus) 25 units DAILY@0800 SC Last administered on 11/28/18 08:42; Admin Dose 25 UNITS; Start 11/22/18 at 08:00 Lorazepam (Ativan) 0.5 mg Q6H PRN IV anxiety/agitation Last administered on 11/22/18 19:32; Admin Dose 0.5 MG; Start 11/22/18 at 11:00 Clopidogrel Bisulfate (plaVIX) 75 mg DAILY PO Last administered on 11/28/18 08:50; Admin Dose 75 MG; Start 11/23/18 at 09:00 Haloperidol (Haldol) 5 mg Q12H PRN IM agitation Last administered on 11/22/18 19:44; Admin Dose 5 MG; Start 11/22/18 at 14:30 Amlodipine Besylate (Norvasc) 5 mg DAILY PO Last administered on 11/26/18 08:32; Admin Dose 5 MG; Start 11/26/18 at 09:00 Quetiapine Fumarate (Seroquel) 25 mg QHS PO Last administered on 11/27/18 20:34; Admin Dose 25 MG; Start 11/26/18 at 21:00 Insulin Aspart (Novolog Insulin Pen) NOVOLOG *MODERATE* ALGORITHM WITH MEALS BEDTIME SC Last administered on 11/28/18 12:02; Admin Dose 6 UNIT; Start 11/26/18 at 21:07 Hydralazine HCl (Apresoline) 50 mg TID PO Last administered on 11/27/18 20:34; Admin Dose 50 MG; Start 11/27/18 at 21:00 KARL WOOD MD Nov 28, 2018 12:45
--- NOTE | 2018-11-28 12:53 | CONS ---
Assessment/Plan Assessment/Plan Hospital Course (Demo Recall) IMPRESSION: 1. Preoperative evaluation prior to possible need for peripheral revascularization surgery.-neg trop x 3 and NL EF by echo with no sig valve abnl. Echo repeat 11/13 with NL EF 2. Peripheral arterial disease with nonhealing gangrenous changes in left toe ulceration. 3. Hypertension, under reasonable control on current medications. 4. Dyslipidemia. 5. Diabetes mellitus. 6. s/p cardiopulmonary arrest 7. Bradycardic intermittent by tele 8. Positive troponin after arrest-? secondary to or primary to arrest, likely secondary to arrest, type 2 demans infarct, as no signifcant uptrend and now downtrended to negative 9. Resp failure-s/p extubation 10. CVA-Acute by MRI Recc: -Now on med-surg -Continue asa/plavix/statin -serial ecg's -s/p course of abx's -local wound care -Bystolic still held given initial bradycardia -heparin was d/c'd secondary to anemia requiring transfusions -follow volume status on daily lasix diuresis -follow MS closely with ongoing neuro eval for CVA -Continue now zestril and decrease hydralazine further and willl hold norvasc and follow BP clsoely Consultation Date/Type/Reason Admit Date/Time Nov 04, 2018 at 07:34 Initial Consult Date 11/06/18 Type of Consult Cardiology Reason for Consultation HTN/positive troponin Requesting Provider: KARL WOOD MD Date/Time of Note DATE: 11/28/18 TIME: 12:48 Exam/Review of Systems Vital Signs Vitals Vital Signs Date Temp Pulse Resp B/P (MAP) Pulse Ox O2 O2 Flow FiO2 Time Delivery Rate 11/28/18 93 16 106/62 98 Room Air 12:32 (77) 11/28/18 3.0 09:47 11/28/18 97.6 08:00 Intake and Output 11/27/18 11/27/18 11/28/18 1515:00 23:00 07:00 IntakeIntake Total 480 ml OutputOutput Total 250 ml 2200 ml BalanceBalance 230 ml -2200 ml Exam Exam Review of Systems: CONSTITUTIONAL: No fevers, chills. PULMONARY: No sob CARDIOVASCULAR: No chest pain/palpitations GASTROINTESTINAL: No nausea/vomiting. GENITOURINARY: No hematuria/dysuria. MUSCULOSKELETAL: No myagias/arthalgias. PSYCHIATRIC: The patient denies depression. NEUROLOGIC: No weakness Constitutional: alert Psych: no complaints Head: normocephalic ENMT: mucosa pink and moist Neck: supple, jvd (9 cm water) Respiratory: clear to auscultation Cardiovascular: regular rate and rhythm Gastrointestinal: soft, non-tender Musculoskeletal: muscle tone (normal) Extremities: edema (trace R>L), other (foot covered bbv dressing) Neurological: other (No focal deficits) Labs Result Diagram: 11/28/1861811/28/18618 Results 24hrs Laboratory Tests Test 11/27/18 17:17 11/27/18 20:40 11/28/18 01:56 11/28/18 06:19 Bedside Glucose 162 218 238 H White Blood Count 6.0 Red Blood Count 3.42 L Hemoglobin 10.0 L Hematocrit 31.5 L Mean Corpuscular 92.1 Volume Mean Corpuscular 29.2 Hemoglobin Mean Corpuscular 31.7 L Hemoglobin Concent Red Cell 13.5 Distribution Width Platelet Count 260 Mean Platelet Volume 11.4 H Immature 0.300 Granulocytes % Neutrophils % 56.7 Lymphocytes % 25.0 Monocytes % 11.5 H Eosinophils % 5.8 Basophils % 0.7 Nucleated Red Blood 0.0 Cells % Immature 0.020 Granulocytes # Neutrophils # 3.4 Lymphocytes # 1.5 Monocytes # 0.7 Eosinophils # 0.4 Basophils # 0.0 Nucleated Red Blood 0.0 Cells # Sodium Level 137 Potassium Level 4.0 Chloride Level 104 Carbon Dioxide Level 28 Anion Gap 5 Blood Urea Nitrogen 20 Creatinine 0.97 Glucose Level 223 H Calcium Level 8.1 L Phosphorus Level 2.5 Magnesium Level 1.9 Albumin 2.8 L Test 11/28/18 08:12 11/28/18 12:00 Bedside Glucose 189 236 H Medications Medications Current Medications Ergocalciferol (Drisdol) 50,000 unit Sa PO Last administered on 11/23/18at 17:10; Admin Dose 50,000 UNIT; Start 11/09/18 at 09:00 Miscellaneous Medication (Bystolic) 20 mg DAILY PO Last administered on 11/11/18at 09:03; Admin Dose 20 MG; Start 11/04/18 at 09:00; Status Hold Clonidine (Catapres) 0.1 mg Q6H PRN PO SBP>160 Last administered on 11/19/18 03:04; Admin Dose 0.1 MG; Start 11/04/18 at 09:00 IV Flush (NS 3 ml) 3 ml PER PROTOCOL IV ; Start 11/04/18 at 09:00 Ondansetron HCl (Zofran Inj) 4 mg Q6H PRN IV NAUSEA/VOMITING; Start 11/04/18 at 09:00 Acetaminophen (Tylenol Tab) 650 mg Q6H PRN PO .PAIN 1-3 OR TEMP Last administered on 11/27/18at 20:45; Admin Dose 650 MG; Start 11/04/18 at 09:00 Miscellaneous Information 1 ea NOTE XX ; Start 11/04/18 at 09:00 Glucose (Glutose) 15 gm Q15M PRN PO DECREASED GLUCOSE; Start 11/04/18 at 09:00 Glucose (Glutose) 22.5 gm Q15M PRN PO DECREASED GLUCOSE; Start 11/04/18 at 09:00 Dextrose (D50w Syringe) 25 ml Q15M PRN IV DECREASED GLUCOSE; Start 11/04/18 at 09:00 Dextrose (D50w Syringe) 50 ml Q15M PRN IV DECREASED GLUCOSE; Start 11/04/18 at 09:00 Glucagon (Glucagen) 1 mg Q15M PRN IM DECREASED GLUCOSE; Start 11/04/18 at 09:00 Glucose (Glutose) 15 gm Q15M PRN BUCCAL DECREASED GLUCOSE; Start 11/04/18 at 09:00 Miscellaneous Information Patients own medicat... BID@,16 XX Last administered on 11/20/18at 16:16; Admin Dose 1 EA; Start 11/04/18 at 16:00 Sodium Hypochlorite (Dakins Diluted ()) 1 applic BID TP Last administered on 11/28/18 08:52; Admin Dose 1 APPLIC; Start 11/07/18 at 09:00 Hydralazine HCl (Apresoline) 10 mg Q4H PRN IV sbp >160 Last administered on 11/20/18at 14:44; Admin Dose 10 MG; Start 11/08/18 at 09:00 Famotidine (Pepcid) 20 mg DAILY NGT Last administered on 11/28/18at 08:44; Admin Dose 20 MG; Start 11/11/18 at 09:30 Atropine Sulfate (Atropine) 0.5 mg PRN PRN IV SYMPTOMATIC BRADYCARDIA; Start 11/11/18 at 23:00 Heparin Sodium (Porcine) (Heparin (5000 Units/1ml)) 5,000 unit BID SC Last administered on 11/28/18 08:43; Admin Dose 5,000 UNIT; Start 11/14/18 at 21:00 Bisacodyl (Dulcolax Supp) 10 mg DAILY PRN [place] CONSTIPATION Last administered on 11/14/18 16:43; Admin Dose 10 MG; Start 11/14/18 at 16:30 IV Flush (NS 10 ml) 10 ml PRN PRN IV FLUSH LINE; Start 11/15/18 at 15:30 Polyethylene Glycol (Miralax) 17 gm DAILY PRN NGT constipation; Start 11/17/18 at 09:00 Senna/Docusate Sodium (Senokot-S) 1 tab BID PRN NGT constipation; Start 11/17/18 at 09:00 Gabapentin (Neurontin Liquid) 300 mg BID PO Last administered on 11/28/18 08:50; Admin Dose 300 MG; Start 11/18/18 at 21:00 Diagnostic Test (Pha) (Accu-Chek) 1 ea 02 XX Last administered on 11/26/18 02:00; Admin Dose 1 EA; Start 11/20/18 at 02:00 Ascorbic Acid (Vitamin C) 500 mg DAILY PO Last administered on 11/28/18 08:50; Admin Dose 500 MG; Start 11/20/18 at 09:00 Zinc Sulfate (Zinc Sulfate) 220 mg DAILY PO Last administered on 11/28/18 08:50; Admin Dose 220 MG; Start 11/20/18 at 09:00 Atorvastatin Calcium (Lipitor) 80 mg QHS PO Last administered on 11/27/18 20:34; Admin Dose 80 MG; Start 11/19/18 at 21:00 Aspirin (Aspirin) 81 mg DAILY GTB Last administered on 11/28/18 08:44; Admin Dose 81 MG; Start 11/21/18 at 09:00 Furosemide (Lasix) 40 mg DAILY PO Last administered on 11/26/18 08:33; Admin Dose 40 MG; Start 11/21/18 at 09:00 Lisinopril (Zestril) 5 mg DAILY PO Last administered on 11/26/18 08:33; Admin Dose 5 MG; Start 11/21/18 at 09:00 Insulin Glargine (Lantus) 25 units DAILY@0800 SC Last administered on 11/28/18 08:42; Admin Dose 25 UNITS; Start 11/22/18 at 08:00 Lorazepam (Ativan) 0.5 mg Q6H PRN IV anxiety/agitation Last administered on 11/22/18 19:32; Admin Dose 0.5 MG; Start 11/22/18 at 11:00 Clopidogrel Bisulfate (plaVIX) 75 mg DAILY PO Last administered on 11/28/18 08:50; Admin Dose 75 MG; Start 11/23/18 at 09:00 Haloperidol (Haldol) 5 mg Q12H PRN IM agitation Last administered on 11/22/18 19:44; Admin Dose 5 MG; Start 11/22/18 at 14:30 Amlodipine Besylate (Norvasc) 5 mg DAILY PO Last administered on 11/26/18 08:32; Admin Dose 5 MG; Start 11/26/18 at 09:00 Quetiapine Fumarate (Seroquel) 25 mg QHS PO Last administered on 11/27/18 20:34; Admin Dose 25 MG; Start 11/26/18 at 21:00 Insulin Aspart (Novolog Insulin Pen) NOVOLOG *MODERATE* ALGORITHM WITH MEALS BEDTIME SC Last administered on 11/28/18 12:02; Admin Dose 6 UNIT; Start 11/26/18 at 21:07 Hydralazine HCl (Apresoline) 50 mg TID PO Last administered on 11/27/18 20:34; Admin Dose 50 MG; Start 11/27/18 at 21:00 KLEVER HUNT Nov 28, 2018 12:53
[2018-11-28 14:30] VITALS: BP 102/58; PULSE 87; RESP 16
[2018-11-28 19:58] VITALS: BP 134/72; PULSE 92; RESP 18
[2018-11-28] MEDS: ATORVASTATIN 80 MG TAB PO SCH (21:08)
[2018-11-28] MEDS: QUETIAPINE 25 MG TAB PO SCH (21:08)
[2018-11-29] MEDS: ACCU-CHEK XX SCH (02:26)
[2018-11-29 02:27] VITALS: BP 96/47; PULSE 84; RESP 16
[2018-11-29 07:50] VITALS: BP 108/62; PULSE 90; RESP 18
[2018-11-29] MEDS ORDERED: POLYETHYLENE GLYCOL 17 GM PACKET PO PRN (08:02)
[2018-11-29] MEDS: INSULIN GLARGINE [LANTus] (100 UNITS/ML) SYG SC SCH (08:03)
[2018-11-29] MEDS: INSULIN ASPART [NOVOLOG] 3 ML PEN SC SCH ×4 (08:04→20:49)
[2018-11-29] MEDS: HEPARIN 5,000 UNIT/1 ML VIAL SC SCH ×2 (08:04→20:49)
[2018-11-29] MEDS: ZINC SULFATE 220 MG CAP PO SCH (08:04)
[2018-11-29] MEDS: CLOPIDOGREL 75 MG TAB PO SCH (08:05)
[2018-11-29] MEDS: GABAPENTIN (50 MG/ML PO SYG) PO SCH ×2 (08:05→20:45)
[2018-11-29] MEDS: FUROSEMIDE 40 MG TAB PO SCH (08:06)
[2018-11-29] MEDS: LISINOPRIL 5 MG TAB PO SCH (08:07)
[2018-11-29] MEDS: AMLODIPINE 5 MG TAB PO SCH (08:07)
[2018-11-29] MEDS: DAKINS 0.0125%(1/40) 473 ML SOLUTION TP SCH ×2 (08:08→20:50)
[2018-11-29] MEDS: ASCORBIC ACID 500 MG TAB PO SCH (08:12)
[2018-11-29] MEDS: ASPIRIN 81 MG TAB PO SCH (08:56)
[2018-11-29] MEDS: FAMOTIDINE 20 MG TAB PO SCH (08:57)
--- NOTE | 2018-11-29 12:33 | PN ---
Date/Time of Note Date/Time of Note DATE: 11/29/18 TIME: 12:31 Assessment/Plan VTE Prophylaxis Risk score (from Nsg)>0 risk: 3 SCD applied (from Nsg): Yes Pharmacological prophylaxis: other Lines/Catheters IV Catheter Type (from Nrsg): Saline Lock Urinary Cath still in place: Yes Reason Cath still needed: urinary retention Assessment/Plan Assessment/Plan 1. 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 Completed course of antibiotics - Continue local wound care - Podiatry on board and appreciate consultation. no further procedures scheduled at this time 2. Left frontal CVA - Neurology on board and appreciate recommendations - continue on aspirin and Plavix - continue on statin 3. left-sided internal carotid artery stenosis - 25% per CT angiogram, continue aspirin, statin, Plavix per vascular surgeon 4. Acute hypoxic respiratory failure-resolving - Extubated, doing well - CT chest without contrast results noted - Pulmonology consultation appreciated 5. Cardiac arrest s/p ROSC - Cardiology on board and appreciate recommendations - ECHO with preserved EF 6. Severe peripheral vascular disease - s/p left femoral endarterectomy, iliofemoral bypass and femoral to posterior tibial bypass done on November 08, 2018 - Vascular surgery consultation appreciated. no further intervention required. Continue aspirin and Plavix 7. Diabetes Mellitus - A1c noted - insulin as needed 8. Acute kidney injury- resolved - nephrology consultation appreciated 9. Essential HTN - Continue home medications at this time 10. Peripheral neuropathy - cont. gabapentin 11. HLD - On statin 12. Chronic anemia - Stable H&H. Monitor - no need for transfusions at this time 13. Urinary retention - Urology on board and appreciate recommendations. 14. Disposition - Continue ambulating with PT and awaiting better insurance for SNF placement Result Diagram: 11/28/1861811/28/18618 Results 24hrs Laboratory Tests Test 11/28/18 17:30 11/28/18 21:06 11/29/18 02:21 11/29/18 07:58 Bedside Glucose 170 273 H 179 186 Subjective 24 Hr Interval Summary Free Text/Dictation Patient doing well and denies any acute issues. Per Nursing, still not steady with ambulation. Exam/Review of Systems Exam Vitals Vital Signs Date Temp Pulse Resp B/P (MAP) Pulse Ox O2 O2 Flow FiO2 Time Delivery Rate 11/29/18 97.9 90 18 108/62 98 Room Air 07:50 (77) 11/28/18 3.0 09:47 Intake and Output 11/28/18 11/28/18 11/29/18 1515:00 23:00 07:00 IntakeIntake Total 920 ml OutputOutput Total 1600 ml 1800 ml BalanceBalance -680 ml -1800 ml Exam General: Patient is sitting on side of bed getting dressing replaced. no acute distress Neck: Supple Respiratory: Diminished bilaterally. no wheezing or rhonchi Cardiovascular: regular rate and rhythm, no obvious murmurs Gastrointestinal: soft, non-tender to palpation, no distended, bowel sounds heard. Neurological: Moves all extremities spontaneously Skin: No new skin lesions, surgical site bandaged, CDI Results Results 24hrs Laboratory Tests Test 11/28/18 17:30 11/28/18 21:06 11/29/18 02:21 11/29/18 07:58 Bedside Glucose 170 273 H 179 186 Medications Medication Current Medications Ergocalciferol (Drisdol) 50,000 unit Sa PO Last administered on 11/23/18at 17:10; Admin Dose 50,000 UNIT; Start 11/09/18 at 09:00 Miscellaneous Medication (Bystolic) 20 mg DAILY PO Last administered on 11/11/18 09:03; Admin Dose 20 MG; Start 11/04/18 at 09:00; Status Hold Clonidine (Catapres) 0.1 mg Q6H PRN PO SBP>160 Last administered on 11/19/18 03:04; Admin Dose 0.1 MG; Start 11/04/18 at 09:00 IV Flush (NS 3 ml) 3 ml PER PROTOCOL IV ; Start 11/04/18 at 09:00 Ondansetron HCl (Zofran Inj) 4 mg Q6H PRN IV NAUSEA/VOMITING; Start 11/04/18 at 09:00 Acetaminophen (Tylenol Tab) 650 mg Q6H PRN PO .PAIN 1-3 OR TEMP Last administered on 11/27/18at 20:45; Admin Dose 650 MG; Start 11/04/18 at 09:00 Miscellaneous Information 1 ea NOTE XX ; Start 11/04/18 at 09:00 Glucose (Glutose) 15 gm Q15M PRN PO DECREASED GLUCOSE; Start 11/04/18 at 09:00 Glucose (Glutose) 22.5 gm Q15M PRN PO DECREASED GLUCOSE; Start 11/04/18 at 09:00 Dextrose (D50w Syringe) 25 ml Q15M PRN IV DECREASED GLUCOSE; Start 11/04/18 at 09:00 Dextrose (D50w Syringe) 50 ml Q15M PRN IV DECREASED GLUCOSE; Start 11/04/18 at 09:00 Glucagon (Glucagen) 1 mg Q15M PRN IM DECREASED GLUCOSE; Start 11/04/18 at 09:00 Glucose (Glutose) 15 gm Q15M PRN BUCCAL DECREASED GLUCOSE; Start 11/04/18 at 09:00 Miscellaneous Information Patients own medicat... BID@,16 XX Last administered on 11/20/18 16:16; Admin Dose 1 EA; Start 11/04/18 at 16:00 Sodium Hypochlorite (Dakins Diluted ()) 1 applic BID TP Last administered on 11/29/18 08:08; Admin Dose 1 APPLIC; Start 11/07/18 at 09:00 Hydralazine HCl (Apresoline) 10 mg Q4H PRN IV sbp >160 Last administered on 11/20/18 14:44; Admin Dose 10 MG; Start 11/08/18 at 09:00 Atropine Sulfate (Atropine) 0.5 mg PRN PRN IV SYMPTOMATIC BRADYCARDIA; Start 11/11/18 at 23:00 Heparin Sodium (Porcine) (Heparin (5000 Units/1ml)) 5,000 unit BID SC Last administered on 11/29/18at 08:04; Admin Dose 5,000 UNIT; Start 11/14/18 at 21:00 Bisacodyl (Dulcolax Supp) 10 mg DAILY PRN [place] CONSTIPATION Last administered on 11/14/18 16:43; Admin Dose 10 MG; Start 11/14/18 at 16:30 IV Flush (NS 10 ml) 10 ml PRN PRN IV FLUSH LINE; Start 11/15/18 at 15:30 Gabapentin (Neurontin Liquid) 300 mg BID PO Last administered on 11/29/18 08:05; Admin Dose 300 MG; Start 11/18/18 at 21:00 Diagnostic Test (Pha) (Accu-Chek) 1 ea 02 XX Last administered on 11/29/18at 02:26; Admin Dose 1 EA; Start 11/20/18 at 02:00 Ascorbic Acid (Vitamin C) 500 mg DAILY PO Last administered on 11/29/18 08:12; Admin Dose 500 MG; Start 11/20/18 at 09:00 Zinc Sulfate (Zinc Sulfate) 220 mg DAILY PO Last administered on 11/29/18 08:04; Admin Dose 220 MG; Start 11/20/18 at 09:00 Atorvastatin Calcium (Lipitor) 80 mg QHS PO Last administered on 11/28/18 21:08; Admin Dose 80 MG; Start 11/19/18 at 21:00 Furosemide (Lasix) 40 mg DAILY PO Last administered on 11/29/18 08:06; Admin Dose 40 MG; Start 11/21/18 at 09:00 Lisinopril (Zestril) 5 mg DAILY PO Last administered on 11/29/18 08:07; Admin Dose 5 MG; Start 11/21/18 at 09:00 Insulin Glargine (Lantus) 25 units DAILY@0800 SC Last administered on 11/29/18 08:03; Admin Dose 25 UNITS; Start 11/22/18 at 08:00 Lorazepam (Ativan) 0.5 mg Q6H PRN IV anxiety/agitation Last administered on 11/22/18 19:32; Admin Dose 0.5 MG; Start 11/22/18 at 11:00 Clopidogrel Bisulfate (plaVIX) 75 mg DAILY PO Last administered on 11/29/18 08:05; Admin Dose 75 MG; Start 11/23/18 at 09:00 Haloperidol (Haldol) 5 mg Q12H PRN IM agitation Last administered on 11/22/18 19:44; Admin Dose 5 MG; Start 11/22/18 at 14:30 Quetiapine Fumarate (Seroquel) 25 mg QHS PO Last administered on 11/28/18 21:08; Admin Dose 25 MG; Start 11/26/18 at 21:00 Insulin Aspart (Novolog Insulin Pen) NOVOLOG *MODERATE* ALGORITHM WITH MEALS BEDTIME SC Last administered on 11/29/18 08:04; Admin Dose 4 UNIT; Start 11/26/18 at 21:07 Amlodipine Besylate (Norvasc) 2.5 mg DAILY PO ; Start 11/29/18 at 09:00 Hydralazine HCl (Apresoline) 25 mg TID PO Last administered on 11/28/18at 21:08; Admin Dose 25 MG; Start 11/28/18 at 13:00 Polyethylene Glycol (Miralax) 17 gm DAILY PRN PO constipation; Start 11/29/18 at 08:02 Aspirin (Aspirin) 81 mg DAILY PO Last administered on 11/29/18at 08:56; Admin Dose 81 MG; Start 11/29/18 at 09:00 Famotidine (Pepcid) 20 mg DAILY PO Last administered on 11/29/18at 08:57; Admin Dose 20 MG; Start 11/29/18 at 09:00 Senna/Docusate Sodium (Senokot-S) 1 tab BID PRN PO constipation; Start 11/29/18 at 08:30 KARL WOOD MD Nov 29, 2018 12:33
--- NOTE | 2018-11-29 12:41 | CONS ---
Assessment/Plan Assessment/Plan Hospital Course (Demo Recall) Awake, looks comfortable, no fevers Antimicrobials: none Physical examination: Well-developed elderly man who is in no distress head atraumatic normocephalic neck is supple chest rise symmetrical breath sounds CTA heart S1-S2, abdomen soft bowel sounds present extremities with left foot dressing intact Assessment: 1. Status post cardiac arrest 2. S/p Non-ST elevation NM 3. Status post acute respiratory failure, possibly aspirated 4. Left foot gangrene 5. Peripheral arterial disease status post left femoral to posterior tibial bypass 11/08/18 6. Diabetes 7. History of left foot second toe amputation 8. Acute kidney insufficiency 9. Acute encephalopathy ==> improved Plan: Stable off antibiotics pending dc arrangements Consultation Date/Type/Reason Admit Date/Time Nov 04, 2018 at 07:34 Initial Consult Date Type of Consult id Requesting Provider: KARL WOOD MD Date/Time of Note DATE: 11/29/18 TIME: 12:40 Exam/Review of Systems Exam Vitals Vital Signs Date Temp Pulse Resp B/P (MAP) Pulse Ox O2 O2 Flow FiO2 Time Delivery Rate 11/29/18 97.9 90 18 108/62 98 Room Air 07:50 (77) 11/28/18 3.0 09:47 Intake and Output 11/28/18 11/28/18 11/29/18 1515:00 23:00 07:00 IntakeIntake Total 920 ml OutputOutput Total 1600 ml 1800 ml BalanceBalance -680 ml -1800 ml Results Result Diagram: 11/28/1861811/28/18 0619 Results 24hrs Laboratory Tests Test 11/28/18 17:30 11/28/18 21:06 11/29/18 02:21 11/29/18 07:58 Bedside Glucose 170 273 H 179 186 Test 11/29/18 12:32 Bedside Glucose 205 Medications Medication Current Medications Ergocalciferol (Drisdol) 50,000 unit Sa PO Last administered on 11/23/18at 17:10; Admin Dose 50,000 UNIT; Start 11/09/18 at 09:00 Miscellaneous Medication (Bystolic) 20 mg DAILY PO Last administered on 11/11/18at 09:03; Admin Dose 20 MG; Start 11/04/18 at 09:00; Status Hold Clonidine (Catapres) 0.1 mg Q6H PRN PO SBP>160 Last administered on 11/19/18at 03:04; Admin Dose 0.1 MG; Start 11/04/18 at 09:00 IV Flush (NS 3 ml) 3 ml PER PROTOCOL IV ; Start 11/04/18 at 09:00 Ondansetron HCl (Zofran Inj) 4 mg Q6H PRN IV NAUSEA/VOMITING; Start 11/04/18 at 09:00 Acetaminophen (Tylenol Tab) 650 mg Q6H PRN PO .PAIN 1-3 OR TEMP Last administered on 11/27/18at 20:45; Admin Dose 650 MG; Start 11/04/18 at 09:00 Miscellaneous Information 1 ea NOTE XX ; Start 11/04/18 at 09:00 Glucose (Glutose) 15 gm Q15M PRN PO DECREASED GLUCOSE; Start 11/04/18 at 09:00 Glucose (Glutose) 22.5 gm Q15M PRN PO DECREASED GLUCOSE; Start 11/04/18 at 09:00 Dextrose (D50w Syringe) 25 ml Q15M PRN IV DECREASED GLUCOSE; Start 11/04/18 at 09:00 Dextrose (D50w Syringe) 50 ml Q15M PRN IV DECREASED GLUCOSE; Start 11/04/18 at 09:00 Glucagon (Glucagen) 1 mg Q15M PRN IM DECREASED GLUCOSE; Start 11/04/18 at 09:00 Glucose (Glutose) 15 gm Q15M PRN BUCCAL DECREASED GLUCOSE; Start 11/04/18 at 09:00 Miscellaneous Information Patients own medicat... BID@16 XX Last administered on 11/20/18at 16:16; Admin Dose 1 EA; Start 11/04/18 at 16:00 Sodium Hypochlorite (Dakins Diluted ()) 1 applic BID TP Last administered on 11/29/18at 08:08; Admin Dose 1 APPLIC; Start 11/07/18 at 09:00 Hydralazine HCl (Apresoline) 10 mg Q4H PRN IV sbp >160 Last administered on 11/20/18at 14:44; Admin Dose 10 MG; Start 11/08/18 at 09:00 Atropine Sulfate (Atropine) 0.5 mg PRN PRN IV SYMPTOMATIC BRADYCARDIA; Start 11/11/18 at 23:00 Heparin Sodium (Porcine) (Heparin (5000 Units/1ml)) 5,000 unit BID SC Last administered on 11/29/18 08:04; Admin Dose 5,000 UNIT; Start 11/14/18 at 21:00 Bisacodyl (Dulcolax Supp) [address] CONSTIPATION Last administered on 11/14/18 16:43; Admin Dose 10 MG; Start 11/14/18 at 16:30 IV Flush (NS 10 ml) 10 ml PRN PRN IV FLUSH LINE; Start 11/15/18 at 15:30 Gabapentin (Neurontin Liquid) 300 mg BID PO Last administered on 11/29/18 08:05; Admin Dose 300 MG; Start 11/18/18 at 21:00 Diagnostic Test (Pha) (Accu-Chek) 1 ea 02 XX Last administered on 11/29/18 02:26; Admin Dose 1 EA; Start 11/20/18 at 02:00 Ascorbic Acid (Vitamin C) 500 mg DAILY PO Last administered on 11/29/18 08:12; Admin Dose 500 MG; Start 11/20/18 at 09:00 Zinc Sulfate (Zinc Sulfate) 220 mg DAILY PO Last administered on 11/29/18 08:04; Admin Dose 220 MG; Start 11/20/18 at 09:00 Atorvastatin Calcium (Lipitor) 80 mg QHS PO Last administered on 11/28/18 21:08; Admin Dose 80 MG; Start 11/19/18 at 21:00 Furosemide (Lasix) 40 mg DAILY PO Last administered on 11/29/18 08:06; Admin Dose 40 MG; Start 11/21/18 at 09:00 Lisinopril (Zestril) 5 mg DAILY PO Last administered on 11/29/18 08:07; Admin Dose 5 MG; Start 11/21/18 at 09:00 Insulin Glargine (Lantus) 25 units DAILY@0800 SC Last administered on 11/29/18 08:03; Admin Dose 25 UNITS; Start 11/22/18 at 08:00 Lorazepam (Ativan) 0.5 mg Q6H PRN IV anxiety/agitation Last administered on 11/22/18 19:32; Admin Dose 0.5 MG; Start 11/22/18 at 11:00 Clopidogrel Bisulfate (plaVIX) 75 mg DAILY PO Last administered on 11/29/18 08:05; Admin Dose 75 MG; Start 11/23/18 at 09:00 Haloperidol (Haldol) 5 mg Q12H PRN IM agitation Last administered on 11/22/18 19:44; Admin Dose 5 MG; Start 11/22/18 at 14:30 Quetiapine Fumarate (Seroquel) 25 mg QHS PO Last administered on 11/28/18 21:08; Admin Dose 25 MG; Start 11/26/18 at 21:00 Insulin Aspart (Novolog Insulin Pen) NOVOLOG *MODERATE* ALGORITHM WITH MEALS BEDTIME SC Last administered on 11/29/18 12:34; Admin Dose 4 UNIT; Start 11/26/18 at 21:07 Amlodipine Besylate (Norvasc) 2.5 mg DAILY PO ; Start 11/29/18 at 09:00 Hydralazine HCl (Apresoline) 25 mg TID PO Last administered on 11/28/18 21:08; Admin Dose 25 MG; Start 11/28/18 at 13:00 Polyethylene Glycol (Miralax) 17 gm DAILY PRN PO constipation; Start 11/29/18 at 08:02 Aspirin (Aspirin) 81 mg DAILY PO Last administered on 11/29/18 08:56; Admin Dose 81 MG; Start 11/29/18 at 09:00 Famotidine (Pepcid) 20 mg DAILY PO Last administered on 11/29/18 08:57; Admin Dose 20 MG; Start 11/29/18 at 09:00 Senna/Docusate Sodium (Senokot-S) 1 tab BID PRN PO constipation; Start 11/29/18 at 08:30 HERRERA MURILLO NP Nov 29, 2018 12:41
[2018-11-29 14:31] VITALS: BP 60/52; PULSE 88; RESP 16
--- NOTE | 2018-11-29 14:31 | CONS ---
Assessment/Plan Assessment/Plan Hospital Course (Demo Recall) IMPRESSION: 1. Preoperative evaluation prior to possible need for peripheral revascularization surgery.-neg trop x 3 and NL EF by echo with no sig valve abnl. Echo repeat 11/13 with NL EF 2. Peripheral arterial disease with nonhealing gangrenous changes in left toe ulceration. 3. Hypertension-now on the lower end with holding of most of patients antihypertensives 4. Dyslipidemia. 5. Diabetes mellitus. 6. s/p cardiopulmonary arrest 7. Bradycardic intermittent by tele 8. Positive troponin after arrest-? secondary to or primary to arrest, likely secondary to arrest, type 2 demand infarct, as no signifcant uptrend and now downtrended to negative 9. Resp failure-s/p extubation 10. CVA-Acute by MRI Recc: -Now on med-surg -Continue asa/plavix/statin -serial ecg's -s/p course of abx's -local wound care -Bystolic still held given initial bradycardia -heparin was d/c'd secondary to anemia requiring transfusions -follow volume status on daily lasix diuresis -follow MS closely with ongoing neuro eval for CVA -Continue now zestril and low dose norvasc as tolerated and will d/c hydralazine and follow BP closely -ambulation Consultation Date/Type/Reason Admit Date/Time Nov 04, 2018 at 07:34 Initial Consult Date 11/06/18 Type of Consult Cardiology Reason for Consultation HTN Requesting Provider: KARL WOOD MD Date/Time of Note DATE: 11/29/18 TIME: 14:28 Exam/Review of Systems Vital Signs Vitals Vital Signs Date Temp Pulse Resp B/P (MAP) Pulse Ox O2 O2 Flow FiO2 Time Delivery Rate 11/29/18 97.9 90 18 108/62 98 Room Air 07:50 (77) 11/28/18 3.0 09:47 Intake and Output 11/28/18 11/28/18 11/29/18 1515:00 23:00 07:00 IntakeIntake Total 920 ml OutputOutput Total 1600 ml 1800 ml BalanceBalance -680 ml -1800 ml Exam Exam Review of Systems: CONSTITUTIONAL: No fevers, chills. PULMONARY: No sob CARDIOVASCULAR: No chest pain/palpitations GASTROINTESTINAL: No nausea/vomiting. GENITOURINARY: No hematuria/dysuria. MUSCULOSKELETAL: No myagias/arthalgias. PSYCHIATRIC: The patient denies depression. NEUROLOGIC: No weakness Constitutional: alert Psych: no complaints Head: normocephalic ENMT: mucosa pink and moist Neck: supple, jvd (9 cm water) Respiratory: clear to auscultation Cardiovascular: regular rate and rhythm Gastrointestinal: soft Musculoskeletal: muscle tone (normal) Extremities: edema (traceL>R), other (foot covered by dressing) Neurological: other (No focal deficits) Labs Result Diagram: 11/28/1861811/28/18618 Results 24hrs Laboratory Tests Test 11/28/18 17:30 11/28/18 21:06 11/29/18 02:21 11/29/18 07:58 Bedside Glucose 170 273 H 179 186 Test 11/29/18 12:32 Bedside Glucose 205 Medications Medications Current Medications Ergocalciferol (Drisdol) 50,000 unit Sa PO Last administered on 11/23/18at 17:10; Admin Dose 50,000 UNIT; Start 11/09/18 at 09:00 Miscellaneous Medication (Bystolic) 20 mg DAILY PO Last administered on 11/11/18at 09:03; Admin Dose 20 MG; Start 11/04/18 at 09:00; Status Hold Clonidine (Catapres) 0.1 mg Q6H PRN PO SBP>160 Last administered on 11/19/18at 03:04; Admin Dose 0.1 MG; Start 11/04/18 at 09:00 IV Flush (NS 3 ml) 3 ml PER PROTOCOL IV ; Start 11/04/18 at 09:00 Ondansetron HCl (Zofran Inj) 4 mg Q6H PRN IV NAUSEA/VOMITING; Start 11/04/18 at 09:00 Acetaminophen (Tylenol Tab) 650 mg Q6H PRN PO .PAIN 1-3 OR TEMP Last administered on 11/27/18at 20:45; Admin Dose 650 MG; Start 11/04/18 at 09:00 Miscellaneous Information 1 ea NOTE XX ; Start 11/04/18 at 09:00 Glucose (Glutose) 15 gm Q15M PRN PO DECREASED GLUCOSE; Start 11/04/18 at 09:00 Glucose (Glutose) 22.5 gm Q15M PRN PO DECREASED GLUCOSE; Start 11/04/18 at 09:00 Dextrose (D50w Syringe) 25 ml Q15M PRN IV DECREASED GLUCOSE; Start 11/04/18 at 09:00 Dextrose (D50w Syringe) 50 ml Q15M PRN IV DECREASED GLUCOSE; Start 11/04/18 at 09:00 Glucagon (Glucagen) 1 mg Q15M PRN IM DECREASED GLUCOSE; Start 11/04/18 at 09:00 Glucose (Glutose) 15 gm Q15M PRN BUCCAL DECREASED GLUCOSE; Start 11/04/18 at 09:00 Miscellaneous Information Patients own medicat... BID@10,16 XX Last administered on 11/20/18 16:16; Admin Dose 1 EA; Start 11/04/18 at 16:00 Sodium Hypochlorite (Dakins Diluted ()) 1 applic BID TP Last administered on 11/29/18at 08:08; Admin Dose 1 APPLIC; Start 11/07/18 at 09:00 Hydralazine HCl (Apresoline) 10 mg Q4H PRN IV sbp >160 Last administered on 11/20/18at 14:44; Admin Dose 10 MG; Start 11/08/18 at 09:00 Atropine Sulfate (Atropine) 0.5 mg PRN PRN IV SYMPTOMATIC BRADYCARDIA; Start 11/11/18 at 23:00 Heparin Sodium (Porcine) (Heparin (5000 Units/1ml)) 5,000 unit BID SC Last administered on 11/29/18at 08:04; Admin Dose 5,000 UNIT; Start 11/14/18 at 21:00 Bisacodyl (Dulcolax Supp) 10 mg DAILY PRN [place] CONSTIPATION Last administered on 11/14/18at 16:43; Admin Dose 10 MG; Start 11/14/18 at 16:30 IV Flush (NS 10 ml) 10 ml PRN PRN IV FLUSH LINE; Start 11/15/18 at 15:30 Gabapentin (Neurontin Liquid) 300 mg BID PO Last administered on 11/29/18at 08:05; Admin Dose 300 MG; Start 11/18/18 at 21:00 Diagnostic Test (Pha) (Accu-Chek) 1 ea 02 XX Last administered on 11/29/18at 02:26; Admin Dose 1 EA; Start 11/20/18 at 02:00 Ascorbic Acid (Vitamin C) 500 mg DAILY PO Last administered on 11/29/18 08:12; Admin Dose 500 MG; Start 11/20/18 at 09:00 Zinc Sulfate (Zinc Sulfate) 220 mg DAILY PO Last administered on 11/29/18 08:04; Admin Dose 220 MG; Start 11/20/18 at 09:00 Atorvastatin Calcium (Lipitor) 80 mg QHS PO Last administered on 11/28/18 21:08; Admin Dose 80 MG; Start 11/19/18 at 21:00 Furosemide (Lasix) 40 mg DAILY PO Last administered on 11/29/18 08:06; Admin Dose 40 MG; Start 11/21/18 at 09:00 Lisinopril (Zestril) 5 mg DAILY PO Last administered on 11/29/18 08:07; Admin Dose 5 MG; Start 11/21/18 at 09:00 Insulin Glargine (Lantus) 25 units DAILY@0800 SC Last administered on 11/29/18 08:03; Admin Dose 25 UNITS; Start 11/22/18 at 08:00 Lorazepam (Ativan) 0.5 mg Q6H PRN IV anxiety/agitation Last administered on 11/22/18 19:32; Admin Dose 0.5 MG; Start 11/22/18 at 11:00 Clopidogrel Bisulfate (plaVIX) 75 mg DAILY PO Last administered on 11/29/18 08:05; Admin Dose 75 MG; Start 11/23/18 at 09:00 Haloperidol (Haldol) 5 mg Q12H PRN IM agitation Last administered on 11/22/18 19:44; Admin Dose 5 MG; Start 11/22/18 at 14:30 Quetiapine Fumarate (Seroquel) 25 mg QHS PO Last administered on 11/28/18 21:08; Admin Dose 25 MG; Start 11/26/18 at 21:00 Insulin Aspart (Novolog Insulin Pen) NOVOLOG *MODERATE* ALGORITHM WITH MEALS BEDTIME SC Last administered on 11/29/18 12:34; Admin Dose 4 UNIT; Start 11/26/18 at 21:07 Amlodipine Besylate (Norvasc) 2.5 mg DAILY PO ; Start 11/29/18 at 09:00 Hydralazine HCl (Apresoline) 25 mg TID PO Last administered on 7/11/19at 21:08; Admin Dose 25 MG; Start 11/28/18 at 13:00 Polyethylene Glycol (Miralax) 17 gm DAILY PRN PO constipation; Start 11/29/18 at 08:02 Aspirin (Aspirin) 81 mg DAILY PO Last administered on 11/29/18at 08:56; Admin Dose 81 MG; Start 11/29/18 at 09:00 Famotidine (Pepcid) 20 mg DAILY PO Last administered on 11/29/18at 08:57; Admin Dose 20 MG; Start 11/29/18 at 09:00 Senna/Docusate Sodium (Senokot-S) 1 tab BID PRN PO constipation; Start 11/29/18 at 08:30 KLEVER HUNT Nov 29, 2018 14:31
[2018-11-29 20:00] VITALS: BP 118/67; PULSE 89; RESP 18
[2018-11-29] MEDS: QUETIAPINE 25 MG TAB PO SCH (20:45)
[2018-11-29] MEDS: ATORVASTATIN 80 MG TAB PO SCH (20:45)
[2018-11-30] MEDS: ACCU-CHEK XX SCH (01:28)
[2018-11-30 02:00] VITALS: BP 125/65; PULSE 92; RESP 18
[2018-11-30] MEDS: INSULIN GLARGINE [LANTus] (100 UNITS/ML) SYG SC SCH (07:57)
[2018-11-30] MEDS: INSULIN ASPART [NOVOLOG] 3 ML PEN SC SCH ×4 (07:57→20:36)
[2018-11-30] MEDS: ERGOCALCIFEROL 50,000 UNIT CAP PO SCH (08:00)
[2018-11-30] MEDS: HEPARIN 5,000 UNIT/1 ML VIAL SC SCH ×2 (08:00→20:36)
[2018-11-30] MEDS: CLOPIDOGREL 75 MG TAB PO SCH (08:00)
[2018-11-30] MEDS: LISINOPRIL 5 MG TAB PO SCH (08:01)
[2018-11-30] MEDS: FAMOTIDINE 20 MG TAB PO SCH (08:01)
[2018-11-30] MEDS: GABAPENTIN (50 MG/ML PO SYG) PO SCH ×2 (08:01→20:35)
[2018-11-30] MEDS: AMLODIPINE 5 MG TAB PO SCH (08:01)
[2018-11-30] MEDS: ZINC SULFATE 220 MG CAP PO SCH (08:01)
[2018-11-30] MEDS: ASCORBIC ACID 500 MG TAB PO SCH (08:01)
[2018-11-30] MEDS: ASPIRIN 81 MG TAB PO SCH (08:01)
[2018-11-30] MEDS: DAKINS 0.0125%(1/40) 473 ML SOLUTION TP SCH ×2 (08:02→20:40)
[2018-11-30] MEDS: FUROSEMIDE 40 MG TAB PO SCH (08:02)
[2018-11-30 08:38] VITALS: BP 101/61; PULSE 89; RESP 20
[2018-11-30 13:50] VITALS: BP 91/55; PULSE 86; RESP 18
--- NOTE | 2018-11-30 15:08 | CONS ---
Assessment/Plan Assessment/Plan Hospital Course (Demo Recall) IMPRESSION: 1. Preoperative evaluation prior to possible need for peripheral revascularization surgery.-neg trop x 3 and NL EF by echo with no sig valve abnl. Echo repeat 11/13 with NL EF 2. Peripheral arterial disease with nonhealing gangrenous changes in left toe ulceration. 3. Hypertension-now tolertaing low dose antihypertensives 4. Dyslipidemia. 5. Diabetes mellitus. 6. s/p cardiopulmonary arrest 7. Bradycardic intermittent by tele 8. Positive troponin after arrest-? secondary to or primary to arrest, likely secondary to arrest, type 2 demand infarct, as no signifcant uptrend and now downtrended to negative 9. Resp failure-s/p extubation 10. CVA-Acute by MRI Recc: -Now on med-surg -Continue asa/plavix/statin -serial ecg's -s/p course of abx's -local wound care -Bystolic still held given initial bradycardia -heparin was d/c'd secondary to anemia requiring transfusions -follow volume status on daily lasix diuresis -follow MS closely with ongoing neuro eval for CVA -Continue now zestril and will d/c norvasc and uptitrate zestril as necessary/tolerated Consultation Date/Type/Reason Admit Date/Time Nov 04, 2018 at 07:34 Initial Consult Date 11/06/18 Type of Consult Cardiology Reason for Consultation HTN Requesting Provider: KARL WOOD MD Date/Time of Note DATE: 11/30/18 TIME: 15:06 Exam/Review of Systems Vital Signs Vitals Vital Signs Date Temp Pulse Resp B/P (MAP) Pulse Ox O2 O2 Flow FiO2 Time Delivery Rate 11/30/18 98.3 89 20 101/61 98 Room Air 08:38 (74) 11/28/18 3.0 09:47 Intake and Output 11/29/18 11/29/18 11/30/18 1515:00 23:00 07:00 IntakeIntake Total 720 ml 620 ml OutputOutput Total 750 ml 1800 ml BalanceBalance 720 ml -750 ml -1180 ml Exam Exam Review of Systems: CONSTITUTIONAL: No fevers, chills. PULMONARY: No sob CARDIOVASCULAR: No chest pain/palpitations GASTROINTESTINAL: No nausea/vomiting. GENITOURINARY: No hematuria/dysuria. MUSCULOSKELETAL: No myagias/arthalgias. PSYCHIATRIC: The patient denies depression. NEUROLOGIC: No weakness Constitutional: alert Psych: no complaints Head: normocephalic ENMT: mucosa pink and moist Neck: supple, jvd (9 cm water) Respiratory: diminished breath sounds (at bases/B) Cardiovascular: regular rate and rhythm Gastrointestinal: soft, non-tender Musculoskeletal: muscle tone (normal) Extremities: other (foot covered by dressing) Labs Result Diagram: 11/28/1861811/28/18618 Results 24hrs Laboratory Tests Test 11/30/18 02:24 11/30/18 07:51 11/30/18 11:53 Bedside Glucose 214 177 216 Medications Medications Current Medications Ergocalciferol (Drisdol) 50,000 unit Sa PO Last administered on 11/30/18at 08:00; Admin Dose 50,000 UNIT; Start 11/09/18 at 09:00 Miscellaneous Medication (Bystolic) 20 mg DAILY PO Last administered on 11/11/18at 09:03; Admin Dose 20 MG; Start 11/04/18 at 09:00; Status Hold Clonidine (Catapres) 0.1 mg Q6H PRN PO SBP>160 Last administered on 11/19/18at 03:04; Admin Dose 0.1 MG; Start 11/04/18 at 09:00 IV Flush (NS 3 ml) 3 ml PER PROTOCOL IV ; Start 11/04/18 at 09:00 Ondansetron HCl (Zofran Inj) 4 mg Q6H PRN IV NAUSEA/VOMITING; Start 11/04/18 at 09:00 Acetaminophen (Tylenol Tab) 650 mg Q6H PRN PO .PAIN 1-3 OR TEMP Last administered on 11/27/18at 20:45; Admin Dose 650 MG; Start 11/04/18 at 09:00 Miscellaneous Information 1 ea NOTE XX ; Start 11/04/18 at 09:00 Glucose (Glutose) 15 gm Q15M PRN PO DECREASED GLUCOSE; Start 11/04/18 at 09:00 Glucose (Glutose) 22.5 gm Q15M PRN PO DECREASED GLUCOSE; Start 11/04/18 at 09:00 Dextrose (D50w Syringe) 25 ml Q15M PRN IV DECREASED GLUCOSE; Start 11/04/18 at 09:00 Dextrose (D50w Syringe) 50 ml Q15M PRN IV DECREASED GLUCOSE; Start 11/04/18 at 09:00 Glucagon (Glucagen) 1 mg Q15M PRN IM DECREASED GLUCOSE; Start 11/04/18 at 09:00 Glucose (Glutose) 15 gm Q15M PRN BUCCAL DECREASED GLUCOSE; Start 11/04/18 at 09:00 Miscellaneous Information Patients own medicat... BID@10,16 XX Last admi nistered on 11/20/18 16:16; Admin Dose 1 EA; Start 11/04/18 at 16:00 Sodium Hypochlorite (Dakins Diluted ()) 1 applic BID TP Last administered on 11/30/18 08:02; Admin Dose 1 APPLIC; Start 11/07/18 at 09:00 Hydralazine HCl (Apresoline) 10 mg Q4H PRN IV sbp >160 Last administered on 11/20/18 14:44; Admin Dose 10 MG; Start 11/08/18 at 09:00 Atropine Sulfate (Atropine) 0.5 mg PRN PRN IV SYMPTOMATIC BRADYCARDIA; Start 11/11/18 at 23:00 Heparin Sodium (Porcine) (Heparin (5000 Units/1ml)) 5,000 unit BID SC Last administered on 11/30/18 08:00; Admin Dose 5,000 UNIT; Start 11/14/18 at 21:00 Bisacodyl (Dulcolax Supp) [address] CONSTIPATION Last administered on 11/14/18at 16:43; Admin Dose 10 MG; Start 11/14/18 at 16:30 IV Flush (NS 10 ml) 10 ml PRN PRN IV FLUSH LINE; Start 11/15/18 at 15:30 Gabapentin (Neurontin Liquid) 300 mg BID PO Last administered on 11/30/18 08:01; Admin Dose 300 MG; Start 11/18/18 at 21:00 Diagnostic Test (Pha) (Accu-Chek) 1 ea 02 XX Last administered on 11/29/18 02:26; Admin Dose 1 EA; Start 11/20/18 at 02:00 Ascorbic Acid (Vitamin C) 500 mg DAILY PO Last administered on 11/30/18 08:01; Admin Dose 500 MG; Start 11/20/18 at 09:00 Zinc Sulfate (Zinc Sulfate) 220 mg DAILY PO Last administered on 11/30/18 08:01; Admin Dose 220 MG; Start 11/20/18 at 09:00 Atorvastatin Calcium (Lipitor) 80 mg QHS PO Last administered on 11/29/18 20:45; Admin Dose 80 MG; Start 11/19/18 at 21:00 Furosemide (Lasix) 40 mg DAILY PO Last administered on 11/30/18 08:02; Admin Dose 40 MG; Start 11/21/18 at 09:00 Lisinopril (Zestril) 5 mg DAILY PO Last administered on 11/30/18 08:01; Admin Dose 5 MG; Start 11/21/18 at 09:00 Insulin Glargine (Lantus) 25 units DAILY@0800 SC Last administered on 11/30/18 07:57; Admin Dose 25 UNITS; Start 11/22/18 at 08:00 Lorazepam (Ativan) 0.5 mg Q6H PRN IV anxiety/agitation Last administered on 11/22/18 19:32; Admin Dose 0.5 MG; Start 11/22/18 at 11:00 Clopidogrel Bisulfate (plaVIX) 75 mg DAILY PO Last administered on 11/30/18 08:00; Admin Dose 75 MG; Start 11/23/18 at 09:00 Haloperidol (Haldol) 5 mg Q12H PRN IM agitation Last administered on 11/22/18 19:44; Admin Dose 5 MG; Start 11/22/18 at 14:30 Quetiapine Fumarate (Seroquel) 25 mg QHS PO Last administered on 11/29/18 20:45; Admin Dose 25 MG; Start 11/26/18 at 21:00 Insulin Aspart (Novolog Insulin Pen) NOVOLOG *MODERATE* ALGORITHM WITH MEALS BEDTIME SC Last administered on 11/30/18 11:54; Admin Dose 4 UNIT; Start 11/26/18 at 21:07 Amlodipine Besylate (Norvasc) 2.5 mg DAILY PO Last administered on 11/30/18 08:01; Admin Dose 2.5 MG; Start 11/29/18 at 09:00 Hydralazine HCl (Apresoline) 25 mg TID PO Last administered on 11/28/18 21:08; Admin Dose 25 MG; Start 11/28/18 at 13:00; Status Hold Polyethylene Glycol (Miralax) 17 gm DAILY PRN PO constipation; Start 11/29/18 at 08:02 Aspirin (Aspirin) 81 mg DAILY PO Last administered on 11/30/18at 08:01; Admin Dose 81 MG; Start 11/29/18 at 09:00 Famotidine (Pepcid) 20 mg DAILY PO Last administered on 11/30/18at 08:01; Admin Dose 20 MG; Start 11/29/18 at 09:00 Senna/Docusate Sodium (Senokot-S) 1 tab BID PRN PO constipation; Start 11/29/18 at 08:30 KLEVER HUNT Nov 30, 2018 15:08
--- NOTE | 2018-11-30 16:18 | PN ---
Date/Time of Note Date/Time of Note DATE: 11/30/18 TIME: 16:16 Assessment/Plan VTE Prophylaxis Risk score (from Ns)>0 risk: 5 SCD applied (from Ns): Yes Pharmacological prophylaxis: NA/contraindicated Pharm contraindication: low risk/ambulating Lines/Catheters IV [facility] Urinary Cath still in place: Yes Reason Cath still needed: urinary retention Assessment/Plan Assessment/Plan 1. 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 Completed course of antibiotics - Continue local wound care - Podiatry on board and appreciate consultation. no further procedures scheduled at this time 2. Left frontal CVA - Neurology on board and appreciate recommendations - continue on aspirin and Plavix and statin 3. left-sided internal carotid artery stenosis - 25% per CT angiogram, continue aspirin, statin, Plavix per vascular surgeon 4. Acute hypoxic respiratory failure-resolved - doing well on room air - Pulmonology consultation appreciated 5. Cardiac arrest s/p ROSC - Cardiology on board and appreciate recommendations - ECHO with preserved EF 6. Severe peripheral vascular disease - s/p left femoral endarterectomy, iliofemoral bypass and femoral to posterior tibial bypass done on November 08, 2018 - Vascular surgery consultation appreciated. no further intervention required. Continue aspirin and Plavix 7. Diabetes Mellitus - A1c noted - insulin as needed 8. Acute kidney injury- resolved - nephrology consultation appreciated 9. Essential HTN - Continue home medications at this time 10. Peripheral neuropathy - cont. gabapentin 11. HLD - On statin 12. Chronic anemia - Stable H&H. Monitor - no need for transfusions at this time 13. Urinary retention - Urology on board and appreciate recommendations. 14. Disposition - on board for placement. Patient remains stable Result Diagram: 11/28/1861811/28/18618 Results 24hrs Laboratory Tests Test 11/30/18 02:24 11/30/18 07:51 11/30/18 11:53 Bedside Glucose 214 177 216 Subjective 24 Hr Interval Summary Free Text/Dictation Patient doing well and denies any complaints. No overnight events. Exam/Review of Systems Exam Vitals Vital Signs Date Temp Pulse Resp B/P (MAP) Pulse Ox O2 O2 Flow FiO2 Time Delivery Rate 11/30/18 98.0 86 18 91/55 (67) 98 Room Air 13:50 11/28/18 3.0 09:47 Intake and Output 11/29/18 11/29/18 11/30/18 1515:00 23:00 07:00 IntakeIntake Total 720 ml 620 ml OutputOutput Total 750 ml 1800 ml BalanceBalance 720 ml -750 ml -1180 ml Exam General: Patient is resting. no acute distress Neck: Supple Respiratory: Diminished bilaterally. no wheezing or rhonchi Cardiovascular: regular rate and rhythm, no obvious murmurs Gastrointestinal: soft, non-tender to palpation, no distended, bowel sounds hea rd. Neurological: Moves all extremities spontaneously Skin: No new skin lesions, surgical site bandaged, CDI Results Results 24hrs Laboratory Tests Test 11/30/18 02:24 11/30/18 07:51 11/30/18 11:53 Bedside Glucose 214 177 216 Medications Medication Current Medications Ergocalciferol (Drisdol) 50,000 unit Sa PO Last administered on 11/30/18 08:00; Admin Dose 50,000 UNIT; Start 11/09/18 at 09:00 Miscellaneous Medication (Bystolic) 20 mg DAILY PO Last administered on 11/11/18 09:03; Admin Dose 20 MG; Start 11/04/18 at 09:00; Status Hold Clonidine (Catapres) 0.1 mg Q6H PRN PO SBP>160 Last administered on 11/19/18 03:04; Admin Dose 0.1 MG; Start 11/04/18 at 09:00 IV Flush (NS 3 ml) 3 ml PER PROTOCOL IV ; Start 11/04/18 at 09:00 Ondansetron HCl (Zofran Inj) 4 mg Q6H PRN IV NAUSEA/VOMITING; Start 11/04/18 at 09:00 Acetaminophen (Tylenol Tab) 650 mg Q6H PRN PO .PAIN 1-3 OR TEMP Last administered on 11/27/18at 20:45; Admin Dose 650 MG; Start 11/04/18 at 09:00 Miscellaneous Information 1 ea NOTE XX ; Start 11/04/18 at 09:00 Glucose (Glutose) 15 gm Q15M PRN PO DECREASED GLUCOSE; Start 11/04/18 at 09:00 Glucose (Glutose) 22.5 gm Q15M PRN PO DECREASED GLUCOSE; Start 11/04/18 at 09:00 Dextrose (D50w Syringe) 25 ml Q15M PRN IV DECREASED GLUCOSE; Start 11/04/18 at 09:00 Dextrose (D50w Syringe) 50 ml Q15M PRN IV DECREASED GLUCOSE; Start 11/04/18 at 09:00 Glucagon (Glucagen) 1 mg Q15M PRN IM DECREASED GLUCOSE; Start 11/04/18 at 09:00 Glucose (Glutose) 15 gm Q15M PRN BUCCAL DECREASED GLUCOSE; Start 11/04/18 at 09:00 Miscellaneous Information Patients own medicat... BID@10,16 XX Last administered on 11/20/18 16:16; Admin Dose 1 EA; Start 11/04/18 at 16:00 Sodium Hypochlorite (Dakins Diluted ()) 1 applic BID TP Last administered on 11/30/18 08:02; Admin Dose 1 APPLIC; Start 11/07/18 at 09:00 Hydralazine HCl (Apresoline) 10 mg Q4H PRN IV sbp >160 Last administered on 11/20/18 14:44; Admin Dose 10 MG; Start 11/08/18 at 09:00 Atropine Sulfate (Atropine) 0.5 mg PRN PRN IV SYMPTOMATIC BRADYCARDIA; Start 11/11/18 at 23:00 Heparin Sodium (Porcine) (Heparin (5000 Units/1ml)) 5,000 unit BID SC Last administered on 11/30/18 08:00; Admin Dose 5,000 UNIT; Start 11/14/18 at 21:00 Bisacodyl (Dulcolax Supp) 10 mg DAILY PRN [place] CONSTIPATION Last administered on 11/14/18 16:43; Admin Dose 10 MG; Start 11/14/18 at 16:30 IV Flush (NS 10 ml) 10 ml PRN PRN IV FLUSH LINE; Start 11/15/18 at 15:30 Gabapentin (Neurontin Liquid) 300 mg BID PO Last administered on 11/30/18 08:01; Admin Dose 300 MG; Start 11/18/18 at 21:00 Diagnostic Test (Pha) (Accu-Chek) 1 ea 02 XX Last administered on 11/29/18 02:26; Admin Dose 1 EA; Start 11/20/18 at 02:00 Ascorbic Acid (Vitamin C) 500 mg DAILY PO Last administered on 11/30/18 08:01; Admin Dose 500 MG; Start 11/20/18 at 09:00 Zinc Sulfate (Zinc Sulfate) 220 mg DAILY PO Last administered on 11/30/18 08:01; Admin Dose 220 MG; Start 11/20/18 at 09:00 Atorvastatin Calcium (Lipitor) 80 mg QHS PO Last administered on 11/29/18 20:45; Admin Dose 80 MG; Start 11/19/18 at 21:00 Furosemide (Lasix) 40 mg DAILY PO Last administered on 11/30/18 08:02; Admin Dose 40 MG; Start 11/21/18 at 09:00 Lisinopril (Zestril) 5 mg DAILY PO Last administered on 11/30/18 08:01; Admin Dose 5 MG; Start 11/21/18 at 09:00 Insulin Glargine (Lantus) 25 units DAILY@0800 SC Last administered on 11/30/18 07:57; Admin Dose 25 UNITS; Start 11/22/18 at 08:00 Lorazepam (Ativan) 0.5 mg Q6H PRN IV anxiety/agitation Last administered on 11/22/18 19:32; Admin Dose 0.5 MG; Start 11/22/18 at 11:00 Clopidogrel Bisulfate (plaVIX) 75 mg DAILY PO Last administered on 11/30/18 08:00; Admin Dose 75 MG; Start 11/23/18 at 09:00 Haloperidol (Haldol) 5 mg Q12H PRN IM agitation Last administered on 11/22/18 19:44; Admin Dose 5 MG; Start 11/22/18 at 14:30 Quetiapine Fumarate (Seroquel) 25 mg QHS PO Last administered on 11/29/18 20:45; Admin Dose 25 MG; Start 11/26/18 at 21:00 Insulin Aspart (Novolog Insulin Pen) NOVOLOG *MODERATE* ALGORITHM WITH MEALS BEDTIME SC Last administered on 11/30/18 11:54; Admin Dose 4 UNIT; Start 11/26/18 at 21:07 Hydralazine HCl (Apresoline) 25 mg TID PO Last administered on 11/28/18 21:08; Admin Dose 25 MG; Start 11/28/18 at 13:00; Status Hold Polyethylene Glycol (Miralax) 17 gm DAILY PRN PO constipation; Start 11/29/18 at 08:02 Aspirin (Aspirin) 81 mg DAILY PO Last administered on 11/30/18at 08:01; Admin Dose 81 MG; Start 11/29/18 at 09:00 Famotidine (Pepcid) 20 mg DAILY PO Last administered on 11/30/18at 08:01; Admin Dose 20 MG; Start 11/29/18 at 09:00 Senna/Docusate Sodium (Senokot-S) 1 tab BID PRN PO constipation; Start 11/29/18 at 08:30 KARL WOOD MD Nov 30, 2018 16:18
[2018-11-30 20:00] VITALS: BP 119/66; PULSE 89; RESP 18
[2018-11-30] MEDS: QUETIAPINE 25 MG TAB PO SCH (20:35)
[2018-11-30] MEDS: ATORVASTATIN 80 MG TAB PO SCH (20:35)
[2018-12-01 02:00] VITALS: BP 123/65; PULSE 83; RESP 18
[2018-12-01] MEDS: ACCU-CHEK XX SCH (02:36)
[2018-12-01 08:40] VITALS: BP 98/63; PULSE 85; RESP 18
[2018-12-01] MEDS: INSULIN ASPART [NOVOLOG] 3 ML PEN SC SCH ×4 (08:48→22:03)
[2018-12-01] MEDS: HEPARIN 5,000 UNIT/1 ML VIAL SC SCH ×2 (08:49→22:04)
[2018-12-01] MEDS: INSULIN GLARGINE [LANTus] (100 UNITS/ML) SYG SC SCH (08:53)
[2018-12-01] MEDS: ASPIRIN 81 MG TAB PO SCH (08:57)
[2018-12-01] MEDS: FAMOTIDINE 20 MG TAB PO SCH (08:58)
[2018-12-01] MEDS: FUROSEMIDE 40 MG TAB PO SCH (08:58)
[2018-12-01] MEDS: GABAPENTIN (50 MG/ML PO SYG) PO SCH ×2 (08:58→22:03)
[2018-12-01] MEDS: ASCORBIC ACID 500 MG TAB PO SCH (08:59)
[2018-12-01] MEDS: CLOPIDOGREL 75 MG TAB PO SCH (08:59)
[2018-12-01] MEDS: LISINOPRIL 5 MG TAB PO SCH (09:00)
[2018-12-01] MEDS: ZINC SULFATE 220 MG CAP PO SCH (09:00)
[2018-12-01] MEDS: DAKINS 0.0125%(1/40) 473 ML SOLUTION TP SCH ×2 (09:01→22:00)
--- NOTE | 2018-12-01 09:06 | PN ---
Date/Time of Note Date/Time of Note DATE: 12/01/18 TIME: 09:03 Assessment/Plan VTE Prophylaxis Risk score (from Nsg)>0 risk: 5 SCD applied (from Nsg): Yes Pharmacological prophylaxis: NA/contraindicated Pharm contraindication: low risk/ambulating Lines/Catheters IV Catheter Type (from Nrsg): Saline Lock Urinary Cath still in place: Yes Reason Cath still needed: urinary retention Assessment/Plan Assessment/Plan 1. 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 Completed course of antibiotics - Continue local wound care - Podiatry on board and appreciate consultation. no further procedures scheduled at this time 2. Left frontal CVA - Neurology on board and appreciate recommendations - continue on aspirin and Plavix and statin 3. left-sided internal carotid artery stenosis - 25% per CT angiogram, continue aspirin, statin, Plavix per vascular surgeon 4. Acute hypoxic respiratory failure-resolved - doing well on room air - Pulmonology consultation appreciated 5. Cardiac arrest s/p ROSC - Cardiology on board and appreciate recommendations - ECHO with preserved EF 6. Severe peripheral vascular disease - s/p left femoral endarterectomy, iliofemoral bypass and femoral to posterior tibial bypass done on November 08, 2018 - Vascular surgery consultation appreciated. Continue aspirin and Plavix 7. Diabetes Mellitus - A1c noted - continue lantus and ISS. adjust as needed 8. Acute kidney injury- resolved - nephrology consultation appreciated 9. Essential HTN - Continue home medications at this time 10. Peripheral neuropathy - cont. gabapentin 11. HLD - On statin 12. Chronic anemia - Stable H&H. Monitor - no need for transfusions at this time 13. Urinary retention - Urology on board and appreciate recommendations. 14. Disposition - CM on board for placement to SNF. Patient has restricted Medi[facility] and financial counselor on board to assist with transitioning to full scope given need for SNF Result Diagram: 11/28/1861811/28/18 0619 Results 24hrs Laboratory Tests Test 11/30/18 11:53 11/30/18 16:59 11/30/18 20:32 12/01/18 02:06 Bedside Glucose 216 171 266 H 191 Test 12/01/18 08:13 Bedside Glucose 195 Subjective 24 Hr Interval Summary Free Text/Dictation Patient is sitting in chair at bedside. Denies any acute issues. Pain controlled with PO pain medications. Exam/Review of Systems Exam Vitals Vital Signs Date Temp Pulse Resp B/P (MAP) Pulse Ox O2 O2 Flow FiO2 Time Delivery Rate 12/01/18 98.1 85 18 98/63 (75) 98 Room Air 08:40 11/28/18 3.0 09:47 Intake and Output 11/30/18 11/30/18 12/01/18 1515:00 23:00 07:00 IntakeIntake Total 780 ml 400 ml OutputOutput Total 1200 ml 850 ml BalanceBalance -420 ml -450 ml Exam General: Patient is sitting in chair at bedside. no acute distress Neck: Supple Respiratory: Diminished bilaterally. no wheezing or rhonchi Cardiovascular: regular rate and rhythm, no obvious murmurs Gastrointestinal: soft, non-tender to palpation, no distended, bowel sounds heard. Neurological: Moves all extremities spontaneously Skin: No new skin lesions, ortho shoe on L and diabetic shoe on R Results Results 24hrs Laboratory Tests Test 11/30/18 11:53 11/30/18 16:59 11/30/18 20:32 12/01/18 02:06 Bedside Glucose 216 171 266 H 191 Test 12/01/18 08:13 Bedside Glucose 195 Medications Medication Current Medications Ergocalciferol (Drisdol) 50,000 unit Sa PO Last administered on 11/30/18at 08:00; Admin Dose 50,000 UNIT; Start 11/09/18 at 09:00 Miscellaneous Medication (Bystolic) 20 mg DAILY PO Last administered on 11/11/18 09:03; Admin Dose 20 MG; Start 11/04/18 at 09:00; Status Hold Clonidine (Catapres) 0.1 mg Q6H PRN PO SBP>160 Last administered on 11/19/18 03:04; Admin Dose 0.1 MG; Start 11/04/18 at 09:00 IV Flush (NS 3 ml) 3 ml PER PROTOCOL IV ; Start 11/04/18 at 09:00 Ondansetron HCl (Zofran Inj) 4 mg Q6H PRN IV NAUSEA/VOMITING; Start 11/04/18 at 09:00 Acetaminophen (Tylenol Tab) 650 mg Q6H PRN PO .PAIN 1-3 OR TEMP Last administered on 11/27/18at 20:45; Admin Dose 650 MG; Start 11/04/18 at 09:00 Miscellaneous Information 1 ea NOTE XX ; Start 11/04/18 at 09:00 Glucose (Glutose) 15 gm Q15M PRN PO DECREASED GLUCOSE; Start 11/04/18 at 09:00 Glucose (Glutose) 22.5 gm Q15M PRN PO DECREASED GLUCOSE; Start 11/04/18 at 09:00 Dextrose (D50w Syringe) 25 ml Q15M PRN IV DECREASED GLUCOSE; Start 11/04/18 at 09:00 Dextrose (D50w Syringe) 50 ml Q15M PRN IV DECREASED GLUCOSE; Start 11/04/18 at 09:00 Glucagon (Glucagen) 1 mg Q15M PRN IM DECREASED GLUCOSE; Start 11/04/18 at 09:00 Glucose (Glutose) 15 gm Q15M PRN BUCCAL DECREASED GLUCOSE; Start 11/04/18 at 09:00 Miscellaneous Information Patients own medicat... BID@10,16 XX Last administered on 11/20/18at 16:16; Admin Dose 1 EA; Start 11/04/18 at 16:00 Sodium Hypochlorite (Dakins Diluted (40)) 1 applic BID TP Last administered on 12/01/18at 09:01; Admin Dose 1 APPLIC; Start 11/07/18 at 09:00 Hydralazine HCl (Apresoline) 10 mg Q4H PRN IV sbp >160 Last administered on 11/20/18at 14:44; Admin Dose 10 MG; Start 11/08/18 at 09:00 Atropine Sulfate (Atropine) 0.5 mg PRN PRN IV SYMPTOMATIC BRADYCARDIA; Start 11/11/18 at 23:00 Heparin Sodium (Porcine) (Heparin (5000 Units/1ml)) 5,000 unit BID SC Last administered on 12/01/18at 08:49; Admin Dose 5,000 UNIT; Start 11/14/18 at 21:00 Bisacodyl (Dulcolax Supp) 10 mg DAILY PRN [place] CONSTIPATION Last administered on 11/14/18at 16:43; Admin Dose 10 MG; Start 11/14/18 at 16:30 IV Flush (NS 10 ml) 10 ml PRN PRN IV FLUSH LINE; Start 11/15/18 at 15:30 Gabapentin (Neurontin Liquid) 300 mg BID PO Last administered on 12/01/18 08:58; Admin Dose 300 MG; Start 11/18/18 at 21:00 Diagnostic Test (Pha) (Accu-Chek) 1 ea 02 XX Last administered on 12/01/18 02:36; Admin Dose 1 EA; Start 11/20/18 at 02:00 Ascorbic Acid (Vitamin C) 500 mg DAILY PO Last administered on 12/01/18 08:59; Admin Dose 500 MG; Start 11/20/18 at 09:00 Zinc Sulfate (Zinc Sulfate) 220 mg DAILY PO Last administered on 12/01/18 09:00; Admin Dose 220 MG; Start 11/20/18 at 09:00 Atorvastatin Calcium (Lipitor) 80 mg QHS PO Last administered on 11/30/18 20:35; Admin Dose 80 MG; Start 11/19/18 at 21:00 Furosemide (Lasix) 40 mg DAILY PO Last administered on 11/30/18 08:02; Admin Dose 40 MG; Start 11/21/18 at 09:00 Lisinopril (Zestril) 5 mg DAILY PO Last administered on 11/30/18 08:01; Admin Dose 5 MG; Start 11/21/18 at 09:00 Insulin Glargine (Lantus) 25 units DAILY@0800 SC Last administered on 12/01/18 08:53; Admin Dose 25 UNITS; Start 11/22/18 at 08:00 Lorazepam (Ativan) 0.5 mg Q6H PRN IV anxiety/agitation Last administered on 11/22/18 19:32; Admin Dose 0.5 MG; Start 11/22/18 at 11:00 Clopidogrel Bisulfate (plaVIX) 75 mg DAILY PO Last administered on 12/01/18 08:59; Admin Dose 75 MG; Start 11/23/18 at 09:00 Haloperidol (Haldol) 5 mg Q12H PRN IM agitation Last administered on 11/22/18 19:44; Admin Dose 5 MG; Start 11/22/18 at 14:30 Quetiapine Fumarate (Seroquel) 25 mg QHS PO Last administered on 11/30/18 20:35; Admin Dose 25 MG; Start 11/26/18 at 21:00 Insulin Aspart (Novolog Insulin Pen) NOVOLOG *MODERATE* ALGORITHM WITH MEALS BEDTIME SC Last administered on 12/01/18at 08:48; Admin Dose 4 UNIT; Start 11/26/18 at 21:07 Hydralazine HCl (Apresoline) 25 mg TID PO Last administered on 11/28/18at 21:08; Admin Dose 25 MG; Start 11/28/18 at 13:00; Status Hold Polyethylene Glycol (Miralax) 17 gm DAILY PRN PO constipation; Start 11/29/18 at 08:02 Aspirin (Aspirin) 81 mg DAILY PO Last administered on 12/01/18at 08:57; Admin Dose 81 MG; Start 11/29/18 at 09:00 Famotidine (Pepcid) 20 mg DAILY PO Last administered on 12/01/18at 08:58; Admin Dose 20 MG; Start 11/29/18 at 09:00 Senna/Docusate Sodium (Senokot-S) 1 tab BID PRN PO constipation; Start 11/29/18 at 08:30 KARL WOOD MD Dec 01, 2018 09:06
[2018-12-01 14:30] VITALS: BP 109/59; PULSE 84; RESP 20
--- NOTE | 2018-12-01 14:33 | CONS ---
Assessment/Plan Assessment/Plan Hospital Course (Demo Recall) IMPRESSION: 1. Preoperative evaluation prior to possible need for peripheral revascularization surgery.-neg trop x 3 and NL EF by echo with no sig valve abnl. Echo repeat 11/13 with NL EF 2. Peripheral arterial disease with nonhealing gangrenous changes in left toe ulceration. 3. Hypertension-now tolertaing low dose antihypertensives 4. Dyslipidemia. 5. Diabetes mellitus. 6. s/p cardiopulmonary arrest 7. Bradycardic intermittent by tele 8. Positive troponin after arrest-? secondary to or primary to arrest, likely secondary to arrest, type 2 demand infarct, as no signifcant uptrend and now downtrended to negative 9. Resp failure-s/p extubation 10. CVA-Acute by MRI Recc: -Now on med-surg -Continue asa/plavix/statin -serial ecg's -s/p course of abx's -local wound care -Bystolic still held given initial bradycardia -heparin was d/c'd secondary to anemia requiring transfusions -follow volume status on daily lasix diuresis -follow MS closely with ongoing neuro eval for CVA -Continue now zestril mononotherapy s/p d/c of norvasc as tolerated only with medication held Consultation Date/Type/Reason Admit Date/Time Nov 04, 2018 at 07:34 Initial Consult Date 11/06/18 Type of Consult Cardiology Reason for Consultation preop Requesting Provider: KARL WOOD MD Date/Time of Note DATE: 12/01/18 TIME: 14:31 Exam/Review of Systems Vital Signs Vitals Vital Signs Date Temp Pulse Resp B/P (MAP) Pulse Ox O2 O2 Flow FiO2 Time Delivery Rate 12/01/18 98.1 85 18 98/63 (75) 98 Room Air 08:40 11/28/18 3.0 09:47 Intake and Output 11/30/18 11/30/18 12/01/18 1515:00 23:00 07:00 IntakeIntake Total 780 ml 400 ml OutputOutput Total 1200 ml 850 ml BalanceBalance -420 ml -450 ml Exam Exam Review of Systems: CONSTITUTIONAL: No fevers, chills. PULMONARY: No sob CARDIOVASCULAR: No chest pain/palpitations GASTROINTESTINAL: No nausea/vomiting. GENITOURINARY: No hematuria/dysuria. MUSCULOSKELETAL: No myagias/arthalgias. PSYCHIATRIC: The patient denies depression. NEUROLOGIC: No weakness Constitutional: alert Psych: no complaints Head: normocephalic ENMT: mucosa pink and moist Neck: supple, jvd (9 cm water) Respiratory: diminished breath sounds Cardiovascular: regular rate and rhythm Gastrointestinal: soft, non-tender Musculoskeletal: muscle tone (normal) Extremities: edema (covered by dressing) Neurological: other (No focal deficits) Labs Result Diagram: 11/28/1861811/28/18618 Results 24hrs Laboratory Tests Test 11/30/18 16:59 11/30/18 20:32 12/01/18 02:06 12/01/18 08:13 Bedside Glucose 171 266 H 191 195 Test 12/01/18 12:01 Bedside Glucose 259 H Medications Medications Current Medications Ergocalciferol (Drisdol) 50,000 unit Sa PO Last administered on 11/30/18at 08:00; Admin Dose 50,000 UNIT; Start 11/09/18 at 09:00 Miscellaneous Medication (Bystolic) 20 mg DAILY PO Last administered on 11/11/18at 09:03; Admin Dose 20 MG; Start 11/04/18 at 09:00; Status Hold Clonidine (Catapres) 0.1 mg Q6H PRN PO SBP>160 Last administered on 11/19/18at 03:04; Admin Dose 0.1 MG; Start 11/04/18 at 09:00 IV Flush (NS 3 ml) 3 ml PER PROTOCOL IV ; Start 11/04/18 at 09:00 Ondansetron HCl (Zofran Inj) 4 mg Q6H PRN IV NAUSEA/VOMITING; Start 11/04/18 at 09:00 Acetaminophen (Tylenol Tab) 650 mg Q6H PRN PO .PAIN 1-3 OR TEMP Last administered on 11/27/18at 20:45; Admin Dose 650 MG; Start 11/04/18 at 09:00 Miscellaneous Information 1 ea NOTE XX ; Start 11/04/18 at 09:00 Glucose (Glutose) 15 gm Q15M PRN PO DECREASED GLUCOSE; Start 11/04/18 at 09:00 Glucose (Glutose) 22.5 gm Q15M PRN PO DECREASED GLUCOSE; Start 11/04/18 at 09:00 Dextrose (D50w Syringe) 25 ml Q15M PRN IV DECREASED GLUCOSE; Start 11/04/18 at 09:00 Dextrose (D50w Syringe) 50 ml Q15M PRN IV DECREASED GLUCOSE; Start 11/04/18 at 09:00 Glucagon (Glucagen) 1 mg Q15M PRN IM DECREASED GLUCOSE; Start 11/04/18 at 09:00 Glucose (Glutose) 15 gm Q15M PRN BUCCAL DECREASED GLUCOSE; Start 11/04/18 at 09:00 Miscellaneous Information Patients own medicat... BID@10,16 XX Last administered on 11/20/18 16:16; Admin Dose 1 EA; Start 11/04/18 at 16:00 Sodium Hypochlorite (Dakins Diluted ()) 1 applic BID TP Last administered on 12/01/18 09:01; Admin Dose 1 APPLIC; Start 11/07/18 at 09:00 Hydralazine HCl (Apresoline) 10 mg Q4H PRN IV sbp >160 Last administered on 11/20/18 14:44; Admin Dose 10 MG; Start 11/08/18 at 09:00 Atropine Sulfate (Atropine) 0.5 mg PRN PRN IV SYMPTOMATIC BRADYCARDIA; Start 11/11/18 at 23:00 Heparin Sodium (Porcine) (Heparin (5000 Units/1ml)) 5,000 unit BID SC Last administered on 12/01/18 08:49; Admin Dose 5,000 UNIT; Start 11/14/18 at 21:00 Bisacodyl (Dulcolax Supp) 10 mg DAILY PRN [place] CONSTIPATION Last administered on 11/14/18 16:43; Admin Dose 10 MG; Start 11/14/18 at 16:30 IV Flush (NS 10 ml) 10 ml PRN PRN IV FLUSH LINE; Start 11/15/18 at 15:30 Gabapentin (Neurontin Liquid) 300 mg BID PO Last administered on 12/01/18 08:58; Admin Dose 300 MG; Start 11/18/18 at 21:00 Diagnostic Test (Pha) (Accu-Chek) 1 ea 02 XX Last administered on 12/01/18 02:36; Admin Dose 1 EA; Start 11/20/18 at 02:00 Ascorbic Acid (Vitamin C) 500 mg DAILY PO Last administered on 12/01/18 08:59; Admin Dose 500 MG; Start 11/20/18 at 09:00 Zinc Sulfate (Zinc Sulfate) 220 mg DAILY PO Last administered on 12/01/18 09:00; Admin Dose 220 MG; Start 11/20/18 at 09:00 Atorvastatin Calcium (Lipitor) 80 mg QHS PO Last administered on 11/30/18 20:35; Admin Dose 80 MG; Start 11/19/18 at 21:00 Furosemide (Lasix) 40 mg DAILY PO Last administered on 11/30/18 08:02; Admin Dose 40 MG; Start 11/21/18 at 09:00 Lisinopril (Zestril) 5 mg DAILY PO Last administered on 11/30/18 08:01; Admin Dose 5 MG; Start 11/21/18 at 09:00 Insulin Glargine (Lantus) 25 units DAILY@0800 SC Last administered on 12/01/18 08:53; Admin Dose 25 UNITS; Start 11/22/18 at 08:00 Lorazepam (Ativan) 0.5 mg Q6H PRN IV anxiety/agitation Last administered on 11/22/18 19:32; Admin Dose 0.5 MG; Start 11/22/18 at 11:00 Clopidogrel Bisulfate (plaVIX) 75 mg DAILY PO Last administered on 12/01/18 08:59; Admin Dose 75 MG; Start 11/23/18 at 09:00 Haloperidol (Haldol) 5 mg Q12H PRN IM agitation Last administered on 11/22/18 19:44; Admin Dose 5 MG; Start 11/22/18 at 14:30 Quetiapine Fumarate (Seroquel) 25 mg QHS PO Last administered on 11/30/18 20:35; Admin Dose 25 MG; Start 11/26/18 at 21:00 Insulin Aspart (Novolog Insulin Pen) NOVOLOG *MODERATE* ALGORITHM WITH MEALS BEDTIME SC Last administered on 12/01/18 12:08; Admin Dose 6 UNIT; Start 11/26/18 at 21:07 Hydralazine HCl (Apresoline) 25 mg TID PO Last administered on 11/28/18 21:08; Admin Dose 25 MG; Start 11/28/18 at 13:00; Status Hold Polyethylene Glycol (Miralax) 17 gm DAILY PRN PO constipation; Start 11/29/18 at 08:02 Aspirin (Aspirin) 81 mg DAILY PO Last administered on 12/01/18at 08:57; Admin Dose 81 MG; Start 11/29/18 at 09:00 Famotidine (Pepcid) 20 mg DAILY PO Last administered on 12/01/18at 08:58; Admin Dose 20 MG; Start 11/29/18 at 09:00 Senna/Docusate Sodium (Senokot-S) 1 tab BID PRN PO constipation; Start 11/29/18 at 08:30 KLEVER HUNT Dec 01, 2018 14:33
[2018-12-01 20:46] VITALS: BP 154/71; PULSE 91; RESP 18
[2018-12-01] MEDS: QUETIAPINE 25 MG TAB PO SCH (22:02)
[2018-12-01] MEDS: ATORVASTATIN 80 MG TAB PO SCH (22:02)
[2018-12-02] MEDS: ACCU-CHEK XX SCH (02:00)
[2018-12-02 02:20] VITALS: BP 106/61; PULSE 87; RESP 20
[2018-12-02 08:00] VITALS: BP 100/63; PULSE 86; RESP 18
[2018-12-02] MEDS: INSULIN GLARGINE [LANTus] (100 UNITS/ML) SYG SC SCH (08:48)
[2018-12-02] MEDS: HEPARIN 5,000 UNIT/1 ML VIAL SC SCH ×2 (08:48→20:17)
[2018-12-02] MEDS: INSULIN ASPART [NOVOLOG] 3 ML PEN SC SCH ×5 (08:49→21:00)
[2018-12-02] MEDS: GABAPENTIN (50 MG/ML PO SYG) PO SCH ×2 (08:52→20:13)
[2018-12-02] MEDS: CLOPIDOGREL 75 MG TAB PO SCH (08:55)
[2018-12-02] MEDS: ASPIRIN 81 MG TAB PO SCH (08:57)
[2018-12-02] MEDS: ZINC SULFATE 220 MG CAP PO SCH (08:57)
[2018-12-02] MEDS: FAMOTIDINE 20 MG TAB PO SCH (08:57)
[2018-12-02] MEDS: FUROSEMIDE 40 MG TAB PO SCH (08:58)
[2018-12-02] MEDS: ASCORBIC ACID 500 MG TAB PO SCH (08:58)
[2018-12-02] MEDS: DAKINS 0.0125%(1/40) 473 ML SOLUTION TP SCH ×2 (08:59→20:20)
[2018-12-02] MEDS: ACETAMINOPHEN 325 MG TAB PO PRN (09:57)
[2018-12-02] MEDS: LISINOPRIL 5 MG TAB PO SCH (11:00)
[2018-12-02 11:21] VITALS: BP 84/48; PULSE 101; RESP 18
--- NOTE | 2018-12-02 12:31 | CONS ---
Assessment/Plan Assessment/Plan Hospital Course (Demo Recall) IMPRESSION: 1. Preoperative evaluation prior to possible need for peripheral revascularization surgery.-neg trop x 3 and NL EF by echo with no sig valve abnl. Echo repeat 11/13 with NL EF 2. Peripheral arterial disease with nonhealing gangrenous changes in left toe ulceration. 3. Hypertension-today with holding of ACEI and borderline hypotension 4. Dyslipidemia. 5. Diabetes mellitus. 6. s/p cardiopulmonary arrest 7. Bradycardic intermittent by tele 8. Positive troponin after arrest-? secondary to or primary to arrest, likely secondary to arrest, type 2 demand infarct, as no signifcant uptrend and now downtrended to negative 9. Resp failure-s/p extubation 10. CVA-Acute by MRI Recc: -Now on med-surg -Continue asa/plavix/statin -serial ecg's -s/p course of abx's -local wound care -heparin was d/c'd secondary to anemia requiring transfusions -follow volume status and will hold lasix given marginal BOO and actually give small IVF bolus -follow MS closely with ongoing neuro eval for CVA -Continue now zestril mononotherapy as tolerated and will give small IVF bolus to improve BP Consultation Date/Type/Reason Admit Date/Time Nov 04, 2018 at 07:34 Initial Consult Date 11/06/18 Type of Consult Cardiology Reason for Consultation HTN Requesting Provider: KARL WOOD MD Date/Time of Note DATE: 12/02/18 TIME: 12:28 Exam/Review of Systems Vital Signs Vitals Vital Signs Date Temp Pulse Resp B/P (MAP) Pulse Ox O2 O2 Flow FiO2 Time Delivery Rate 12/02/18 101 18 84/48 (60) 11:21 12/02/18 97.8 98 Room Air 08:00 11/28/18 3.0 09:47 Intake and Output 12/01/18 12/01/18 12/02/18 1515:00 23:00 07:00 IntakeIntake Total 1380 ml 620 ml 350 ml OutputOutput Total 2500 ml 1200 ml 1200 ml BalanceBalance -1120 ml -580 ml -850 ml Exam Exam Review of Systems: CONSTITUTIONAL: No fevers, chills. PULMONARY: No sob CARDIOVASCULAR: No chest pain/palpitations GASTROINTESTINAL: No nausea/vomiting. GENITOURINARY: No hematuria/dysuria. MUSCULOSKELETAL: No myagias/arthalgias. PSYCHIATRIC: The patient denies depression. NEUROLOGIC: No weakness Constitutional: alert Psych: no complaints Head: normocephalic ENMT: mucosa pink and moist Neck: supple, jvd (8 cm water) Respiratory: clear to auscultation Cardiovascular: regular rate and rhythm Gastrointestinal: soft, non-tender Musculoskeletal: muscle tone (normal) Extremities: edema (none), other (foot covered by dressing) Labs Result Diagram: 12/02/18 0530 12/02/18 0530 Results 24hrs Laboratory Tests Test 12/01/18 17:28 12/01/18 22:01 12/02/18 02:28 12/02/18 05:30 Bedside Glucose 291 H 263 H 196 White Blood Count 5.5 Red Blood Count 3.42 L Hemoglobin 10.2 L Hematocrit 31.5 L Mean Corpuscular 92.1 Volume Mean Corpuscular 29.8 Hemoglobin Mean Corpuscular 32.4 Hemoglobin Concent Red Cell 13.5 Distribution Width Platelet Count 203 # Mean Platelet Volume 11.4 H Immature 0.400 Granulocytes % Neutrophils % 51.8 Lymphocytes % 30.8 Monocytes % 10.3 Eosinophils % 6.1 Basophils % 0.6 Nucleated Red Blood 0.0 Cells % Immature 0.020 Granulocytes # Neutrophils # 2.8 Lymphocytes # 1.7 Monocytes # 0.6 Eosinophils # 0.3 Basophils # 0.0 Nucleated Red Blood 0.0 Cells # Sodium Level 134 L Potassium Level 4.2 Chloride Level 101 Carbon Dioxide Level 28 Anion Gap 5 Blood Urea Nitrogen 19 Creatinine 0.82 Glucose Level 191 Calcium Level 8.7 Phosphorus Level 3.3 Magnesium Level 1.7 Albumin 2.9 L Test 12/02/18 08:07 12/02/18 12:09 Bedside Glucose 181 244 H Medications Medications Current Medications Ergocalciferol (Drisdol) 50,000 unit Sa PO Last administered on 11/30/18at 08:00; Admin Dose 50,000 UNIT; Start 11/09/18 at 09:00 Miscellaneous Medication (Bystolic) 20 mg DAILY PO Last administered on 11/11/18at 09:03; Admin Dose 20 MG; Start 11/04/18 at 09:00; Status Hold Clonidine (Catapres) 0.1 mg Q6H PRN PO SBP>160 Last administered on 11/19/18at 03 :04; Admin Dose 0.1 MG; Start 11/04/18 at 09:00 IV Flush (NS 3 ml) 3 ml PER PROTOCOL IV ; Start 11/04/18 at 09:00 Ondansetron HCl (Zofran Inj) 4 mg Q6H PRN IV NAUSEA/VOMITING; Start 11/04/18 at 09:00 Acetaminophen (Tylenol Tab) 650 mg Q6H PRN PO .PAIN 1-3 OR TEMP Last administered on 12/02/18at 09:57; Admin Dose 650 MG; Start 11/04/18 at 09:00 Miscellaneous Information 1 ea NOTE XX ; Start 11/04/18 at 09:00 Glucose (Glutose) 15 gm Q15M PRN PO DECREASED GLUCOSE; Start 11/04/18 at 09:00 Glucose (Glutose) 22.5 gm Q15M PRN PO DECREASED GLUCOSE; Start 11/04/18 at 09:00 Dextrose (D50w Syringe) 25 ml Q15M PRN IV DECREASED GLUCOSE; Start 11/04/18 at 09:00 Dextrose (D50w Syringe) 50 ml Q15M PRN IV DECREASED GLUCOSE; Start 11/04/18 at 09:00 Glucagon (Glucagen) 1 mg Q15M PRN IM DECREASED GLUCOSE; Start 11/04/18 at 09:00 Glucose (Glutose) 15 gm Q15M PRN BUCCAL DECREASED GLUCOSE; Start 11/04/18 at 09:00 Miscellaneous Information Patients own medicat... BID@10,16 XX Last administered on 11/20/18at 16:16; Admin Dose 1 EA; Start 11/04/18 at 16:00 Sodium Hypochlorite (Dakins Diluted ()) 1 applic BID TP Last administered on 12/02/18at 08:59; Admin Dose 1 APPLIC; Start 11/07/18 at 09:00 Hydralazine HCl (Apresoline) 10 mg Q4H PRN IV sbp >160 Last administered on 11/20/18at 14:44; Admin Dose 10 MG; Start 11/08/18 at 09:00 Atropine Sulfate (Atropine) 0.5 mg PRN PRN IV SYMPTOMATIC BRADYCARDIA; Start 11/11/18 at 23:00 Heparin Sodium (Porcine) (Heparin (5000 Units/1ml)) 5,000 unit BID SC Last administered on 12/02/18 08:48; Admin Dose 5,000 UNIT; Start 11/14/18 at 21:00 Bisacodyl (Dulcolax Supp) 10 mg DAILY PRN [place] CONSTIPATION Last administered on 11/14/18 16:43; Admin Dose 10 MG; Start 11/14/18 at 16:30 IV Flush (NS 10 ml) 10 ml PRN PRN IV FLUSH LINE; Start 11/15/18 at 15:30 Gabapentin (Neurontin Liquid) 300 mg BID PO Last administered on 12/02/18 08:52; Admin Dose 300 MG; Start 11/18/18 at 21:00 Diagnostic Test (Pha) (Accu-Chek) 1 ea 02 XX Last administered on 12/01/18 02:36; Admin Dose 1 EA; Start 11/20/18 at 02:00 Ascorbic Acid (Vitamin C) 500 mg DAILY PO Last administered on 12/02/18 08:58; Admin Dose 500 MG; Start 11/20/18 at 09:00 Zinc Sulfate (Zinc Sulfate) 220 mg DAILY PO Last administered on 12/02/18 08:57; Admin Dose 220 MG; Start 11/20/18 at 09:00 Atorvastatin Calcium (Lipitor) 80 mg QHS PO Last administered on 12/01/18 22:02; Admin Dose 80 MG; Start 11/19/18 at 21:00 Furosemide (Lasix) 40 mg DAILY PO Last administered on 12/02/18 08:58; Admin Dose 40 MG; Start 11/21/18 at 09:00 Lisinopril (Zestril) 5 mg DAILY PO Last administered on 11/30/18 08:01; Admin Dose 5 MG; Start 11/21/18 at 09:00 Insulin Glargine (Lantus) 25 units DAILY@0800 SC Last administered on 12/02/18 08:48; Admin Dose 25 UNITS; Start 11/22/18 at 08:00 Lorazepam (Ativan) 0.5 mg Q6H PRN IV anxiety/agitation Last administered on 11/22/18 19:32; Admin Dose 0.5 MG; Start 11/22/18 at 11:00 Clopidogrel Bisulfate (plaVIX) 75 mg DAILY PO Last administered on 12/02/18 08:55; Admin Dose 75 MG; Start 11/23/18 at 09:00 Haloperidol (Haldol) 5 mg Q12H PRN IM agitation Last administered on 11/22/18 19:44; Admin Dose 5 MG; Start 11/22/18 at 14:30 Quetiapine Fumarate (Seroquel) 25 mg QHS PO Last administered on 12/01/18 22:02; Admin Dose 25 MG; Start 11/26/18 at 21:00 Insulin Aspart (Novolog Insulin Pen) NOVOLOG *MODERATE* ALGORITHM WITH MEALS BEDTIME SC Last administered on 12/02/18 12:14; Admin Dose 6 UNIT; Start 11/26/18 at 21:07 Hydralazine HCl (Apresoline) 25 mg TID PO Last administered on 11/28/18 21:08; Admin Dose 25 MG; Start 11/28/18 at 13:00; Status Hold Polyethylene Glycol (Miralax) 17 gm DAILY PRN PO constipation; Start 11/29/18 at 08:02 Aspirin (Aspirin) 81 mg DAILY PO Last administered on 12/02/18 08:57; Admin Dose 81 MG; Start 11/29/18 at 09:00 Famotidine (Pepcid) 20 mg DAILY PO Last administered on 12/02/18 08:57; Admin Dose 20 MG; Start 11/29/18 at 09:00 Senna/Docusate Sodium (Senokot-S) 1 tab BID PRN PO constipation; Start 11/29/18 at 08:30 KLEVER HUNT Dec 02, 2018 12:31
--- NOTE | 2018-12-02 12:34 | PN ---
Date/Time of Note Date/Time of Note DATE: 12/02/18 TIME: 12:33 Objective Vitals Vital Signs Date Temp Pulse Resp B/P (MAP) Pulse Ox O2 O2 Flow FiO2 Time Delivery Rate 12/02/18 101 18 84/48 (60) 11:21 12/02/18 97.8 98 Room Air 08:00 11/28/18 3.0 09:47 Intake and Output 12/01/18 12/01/18 12/02/18 1515:00 23:00 07:00 IntakeIntake Total 1380 ml 620 ml 350 ml OutputOutput Total 2500 ml 1200 ml 1200 ml BalanceBalance -1120 ml -580 ml -850 ml Results Result Diagram: 12/02/1852912/02/18 05 Medications Medications Current Medications Ergocalciferol (Drisdol) 50,000 unit Sa PO Last administered on 11/30/18at 08:00; Admin Dose 50,000 UNIT; Start 11/09/18 at 09:00 Miscellaneous Medication (Bystolic) 20 mg DAILY PO Last administered on 11/11/18at 09:03; Admin Dose 20 MG; Start 11/04/18 at 09:00; Status Hold Clonidine (Catapres) 0.1 mg Q6H PRN PO SBP>160 Last administered on 11/19/18at 03 :04; Admin Dose 0.1 MG; Start 11/04/18 at 09:00 IV Flush (NS 3 ml) 3 ml PER PROTOCOL IV ; Start 11/04/18 at 09:00 Ondansetron HCl (Zofran Inj) 4 mg Q6H PRN IV NAUSEA/VOMITING; Start 11/04/18 at 09:00 Acetaminophen (Tylenol Tab) 650 mg Q6H PRN PO .PAIN 1-3 OR TEMP Last administered on 12/02/18at 09:57; Admin Dose 650 MG; Start 11/04/18 at 09:00 Miscellaneous Information 1 ea NOTE XX ; Start 11/04/18 at 09:00 Glucose (Glutose) 15 gm Q15M PRN PO DECREASED GLUCOSE; Start 11/04/18 at 09:00 Glucose (Glutose) 22.5 gm Q15M PRN PO DECREASED GLUCOSE; Start 11/04/18 at 09:00 Dextrose (D50w Syringe) 25 ml Q15M PRN IV DECREASED GLUCOSE; Start 11/04/18 at 09:00 Dextrose (D50w Syringe) 50 ml Q15M PRN IV DECREASED GLUCOSE; Start 11/04/18 at 09:00 Glucagon (Glucagen) 1 mg Q15M PRN IM DECREASED GLUCOSE; Start 11/04/18 at 09:00 Glucose (Glutose) 15 gm Q15M PRN BUCCAL DECREASED GLUCOSE; Start 11/04/18 at 09:00 Miscellaneous Information Patients own medicat... BID@10,16 XX Last administered on 11/20/18 16:16; Admin Dose 1 EA; Start 11/04/18 at 16:00 Sodium Hypochlorite (Dakins Diluted ()) 1 applic BID TP Last administered on 12/02/18 08:59; Admin Dose 1 APPLIC; Start 11/07/18 at 09:00 Hydralazine HCl (Apresoline) 10 mg Q4H PRN IV sbp >160 Last administered on 11/20/18 14:44; Admin Dose 10 MG; Start 11/08/18 at 09:00 Atropine Sulfate (Atropine) 0.5 mg PRN PRN IV SYMPTOMATIC BRADYCARDIA; Start 11/11/18 at 23:00 Heparin Sodium (Porcine) (Heparin (5000 Units/1ml)) 5,000 unit BID SC Last administered on 12/02/18 08:48; Admin Dose 5,000 UNIT; Start 11/14/18 at 21:00 Bisacodyl (Dulcolax Supp) 10 mg DAILY PRN [place] CONSTIPATION Last administered on 11/14/18 16:43; Admin Dose 10 MG; Start 11/14/18 at 16:30 IV Flush (NS 10 ml) 10 ml PRN PRN IV FLUSH LINE; Start 11/15/18 at 15:30 Gabapentin (Neurontin Liquid) 300 mg BID PO Last administered on 12/02/18 08:52; Admin Dose 300 MG; Start 11/18/18 at 21:00 Diagnostic Test (Pha) (Accu-Chek) 1 ea 02 XX Last administered on 12/01/18 02:36; Admin Dose 1 EA; Start 11/20/18 at 02:00 Ascorbic Acid (Vitamin C) 500 mg DAILY PO Last administered on 12/02/18 08:58; Admin Dose 500 MG; Start 11/20/18 at 09:00 Zinc Sulfate (Zinc Sulfate) 220 mg DAILY PO Last administered on 12/02/18 08:57; Admin Dose 220 MG; Start 11/20/18 at 09:00 Atorvastatin Calcium (Lipitor) 80 mg QHS PO Last administered on 12/01/18 22:02; Admin Dose 80 MG; Start 11/19/18 at 21:00 Furosemide (Lasix) 40 mg DAILY PO Last administered on 12/02/18 08:58; Admin Dose 40 MG; Start 11/21/18 at 09:00 Lisinopril (Zestril) 5 mg DAILY PO Last administered on 11/30/18 08:01; Admin Dose 5 MG; Start 11/21/18 at 09:00 Insulin Glargine (Lantus) 25 units DAILY@0800 SC Last administered on 12/02/18 08:48; Admin Dose 25 UNITS; Start 11/22/18 at 08:00 Lorazepam (Ativan) 0.5 mg Q6H PRN IV anxiety/agitation Last administered on 11/22/18 19:32; Admin Dose 0.5 MG; Start 11/22/18 at 11:00 Clopidogrel Bisulfate (plaVIX) 75 mg DAILY PO Last administered on 12/02/18 08:55; Admin Dose 75 MG; Start 11/23/18 at 09:00 Haloperidol (Haldol) 5 mg Q12H PRN IM agitation Last administered on 11/22/18 19:44; Admin Dose 5 MG; Start 11/22/18 at 14:30 Quetiapine Fumarate (Seroquel) 25 mg QHS PO Last administered on 12/01/18 22:02; Admin Dose 25 MG; Start 11/26/18 at 21:00 Insulin Aspart (Novolog Insulin Pen) NOVOLOG *MODERATE* ALGORITHM WITH MEALS BEDTIME SC Last administered on 12/02/18 12:14; Admin Dose 6 UNIT; Start 11/26/18 at 21:07 Hydralazine HCl (Apresoline) 25 mg TID PO Last administered on 11/28/18 21:08; Admin Dose 25 MG; Start 11/28/18 at 13:00; Status Hold Polyethylene Glycol (Miralax) 17 gm DAILY PRN PO constipation; Start 7/12/19 at 08:02 Aspirin (Aspirin) 81 mg DAILY PO Last administered on 12/02/18at 08:57; Admin Dose 81 MG; Start 11/29/18 at 09:00 Famotidine (Pepcid) 20 mg DAILY PO Last administered on 12/02/18at 08:57; Admin Dose 20 MG; Start 11/29/18 at 09:00 Senna/Docusate Sodium (Senokot-S) 1 tab BID PRN PO constipation; Start 11/29/18 at 08:30 Sodium Chloride 500 ml @ 500 mls/hr Q1H ONCE IV ; Start 12/02/18 at 13:00; Stop 12/02/18 at 13:59; Status UNV VTE Prophylaxis Risk score (from [facility] [place])>0 risk: 5 SCD applied (from [facility]): Yes Lines/Catheters IV Catheter Type: Schneider in Place: Yes Cont'd schneider catheter reason: urinary retention Assessment/Plan Hospital Course Subjective Patient doing very well, no acute issues Objective Physical exam General: Patient is laying in bed responding to questions appropriately Mentation: Patient is alert and oriented Head: Normocephalic atraumatic Eyes: EOMI, pupils reactive to light Neck: Supple, nontender, midline Respiratory: Coarse to auscultation bilaterally Cardiovascular: regular rate, no obvious murmurs Gastrointestinal: non-tender to palpation, bowel sounds heard. Neurological: Moves all extremities spontaneously Skin: No new skin lesions, surgical site bandaged, CDI Assessment/Plan 1. 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 Completed course of antibiotics - Continue local wound care - Podiatry on board and appreciate consultation. no further procedures scheduled at this time 2. Left frontal CVA - Neurology on board and appreciate recommendations - continue on aspirin and Plavix and statin 3. left-sided internal carotid artery stenosis - 25% per CT angiogram, continue aspirin, statin, Plavix per vascular surgeon 4. Acute hypoxic respiratory failure-resolved - doing well on room air - Pulmonology consultation appreciated 5. Cardiac arrest s/p ROSC - Cardiology on board and appreciate recommendations - ECHO with preserved EF 6. Severe peripheral vascular disease - s/p left femoral endarterectomy, iliofemoral bypass and femoral to posterior tibial bypass done on November 08, 2018 - Vascular surgery consultation appreciated. Continue aspirin and Plavix 7. Diabetes Mellitus - A1c noted - continue lantus and ISS. adjust as needed 8. Acute kidney injury- resolved - nephrology consultation appreciated 9. Essential HTN - Continue home medications at this time 10. Peripheral neuropathy - cont. gabapentin 11. HLD - On statin 12. Chronic anemia - Stable H&H. Monitor - no need for transfusions at this time 13. Urinary retention - Urology on board and appreciate recommendations. -will attempt voiding trial acute delerium -resolved. 14. Disposition - CM on board for placement to SNF. Patient has restricted Medi-ayesha and financial counselor on board to assist with transitioning to full scope given need for SNF FRANTZ SCHWAB Dec 02, 2018 12:34
[2018-12-02] MEDS ORDERED: SOD CHLORIDE 0.9% 500 ML IV ONE (13:00)
[2018-12-02 14:00] VITALS: BP 90/51; PULSE 90; RESP 19
[2018-12-02 20:00] VITALS: BP 159/89; PULSE 85; RESP 19
[2018-12-02] MEDS: QUETIAPINE 25 MG TAB PO SCH (20:13)
[2018-12-02] MEDS: ATORVASTATIN 80 MG TAB PO SCH (20:13)
[2018-12-03 02:00] VITALS: BP 81/55; PULSE 88; RESP 19
[2018-12-03] MEDS: ACCU-CHEK XX SCH (02:00)
[2018-12-03 03:35] VITALS: BP 131/62; PULSE 81
[2018-12-03 07:42] VITALS: BP 90/57; PULSE 86; RESP 16
[2018-12-03] MEDS: INSULIN ASPART [NOVOLOG] 3 ML PEN SC SCH ×7 (08:29→20:19)
[2018-12-03] MEDS: HEPARIN 5,000 UNIT/1 ML VIAL SC SCH ×2 (08:30→20:16)
[2018-12-03] MEDS: INSULIN GLARGINE [LANTus] (100 UNITS/ML) SYG SC SCH (08:30)
[2018-12-03] MEDS: CLOPIDOGREL 75 MG TAB PO SCH (08:31)
[2018-12-03] MEDS: FAMOTIDINE 20 MG TAB PO SCH (08:31)
[2018-12-03] MEDS: ASPIRIN 81 MG TAB PO SCH (08:31)
[2018-12-03] MEDS: ZINC SULFATE 220 MG CAP PO SCH (08:31)
[2018-12-03] MEDS: ASCORBIC ACID 500 MG TAB PO SCH (08:31)
[2018-12-03] MEDS: GABAPENTIN (50 MG/ML PO SYG) PO SCH ×2 (08:32→20:15)
[2018-12-03] MEDS: LISINOPRIL 5 MG TAB PO SCH (08:33)
[2018-12-03] MEDS: FUROSEMIDE 40 MG TAB PO SCH (08:33)
[2018-12-03] MEDS: DAKINS 0.0125%(1/40) 473 ML SOLUTION TP SCH ×2 (08:34→20:19)
[2018-12-03 14:18] VITALS: BP 91/52; PULSE 96; RESP 18
--- NOTE | 2018-12-03 14:25 | CONS ---
Assessment/Plan Assessment/Plan Hospital Course (Demo Recall) Patient is alert eating lunch denies pain no fevers overnight. He had been hypotensive over the last couple days blood cultures yesterday were sent and growing gram-positive cocci in pairs clusters 1 out of 2 sets. Patient was started on vancomycin and fluconazole this morning Physical examination: Well-developed elderly man who is in no distress head atraumatic normocephalic neck is supple chest rise symmetrical breath sounds CTA heart S1-S2, abdomen soft bowel sounds present extremities with left foot dressing intact Assessment: 1. Bacteremia, possible contaminant 2. Hypertension, rule out sepsis 3. Status post cardiac arrest/non-ST elevation [place] 4. Status post acute respiratory failure, possibly aspirated 5. Peripheral arterial disease status post left femoral to posterior tibial bypass 11/08/18 6. Diabetes 7. History of left foot second toe amputation Plan: Clinically stable, started on antibiotics for hypertension, will follow final cultures, check chest x-ray and urine culture Consultation Date/Type/Reason Admit Date/Time Nov 04, 2018 at 07:34 Initial Consult Date Type of Consult id Requesting Provider: KARL WOOD MD Date/Time of Note DATE: 12/03/18 TIME: 14:23 Exam/Review of Systems Exam Vitals Vital Signs Date Temp Pulse Resp B/P (MAP) Pulse Ox O2 O2 Flow FiO2 Time Delivery Rate 12/03/18 97.4 96 18 91/52 (65) 96 14:18 12/02/18 Room Air 20:00 Intake and Output 12/02/18 12/02/18 12/03/18 1515:00 23:00 07:00 IntakeIntake Total 1900 ml BalanceBalance 1900 ml Results Result Diagram: 12/03/18 0640 12/03/18 0640 Results 24hrs Laboratory Tests Test 12/02/18 16:59 12/02/18 20:15 12/03/18 06:40 12/03/18 08:21 Bedside Glucose 153 164 174 White Blood Count 4.7 L Red Blood Count 3.69 L Hemoglobin 11.0 L Hematocrit 34.9 L Mean Corpuscular 94.6 Volume Mean Corpuscular 29.8 Hemoglobin Mean Corpuscular 31.5 L Hemoglobin Concent Red Cell 13.8 Distribution Width Platelet Count 226 Mean Platelet Volume 11.6 H Immature 0.400 Granulocytes % Neutrophils % 50.0 Lymphocytes % 32.1 Monocytes % 10.2 Eosinophils % 6.4 Basophils % 0.9 Nucleated Red Blood 0.0 Cells % Immature 0.020 Granulocytes # Neutrophils # 2.4 Lymphocytes # 1.5 Monocytes # 0.5 Eosinophils # 0.3 Basophils # 0.0 Nucleated Red Blood 0.0 Cells # Sodium Level 136 Potassium Level 4.4 Chloride Level 100 Carbon Dioxide Level 27 Anion Gap 9 Blood Urea Nitrogen 22 H Creatinine 1.08 Est Glomerular Filtrat Rate mL/min Glucose Level 163 Calcium Level 9.0 Phosphorus Level 3.4 Magnesium Level 1.6 L Test 12/03/18 12:30 Bedside Glucose 207 Medications Medication Current Medications Ergocalciferol (Drisdol) 50,000 unit Sa PO Last administered on 11/30/18at 08:00; Admin Dose 50,000 UNIT; Start 11/09/18 at 09:00 Miscellaneous Medication (Bystolic) 20 mg DAILY PO Last administered on 11/11/18 09:03; Admin Dose 20 MG; Start 11/04/18 at 09:00; Status Hold Clonidine (Catapres) 0.1 mg Q6H PRN PO SBP>160 Last administered on 11/19/18at 03:04; Admin Dose 0.1 MG; Start 11/04/18 at 09:00 IV Flush (NS 3 ml) 3 ml PER PROTOCOL IV ; Start 11/04/18 at 09:00 Ondansetron HCl (Zofran Inj) 4 mg Q6H PRN IV NAUSEA/VOMITING; Start 11/04/18 at 09:00 Acetaminophen (Tylenol Tab) 650 mg Q6H PRN PO .PAIN 1-3 OR TEMP Last administered on 12/02/18at 09:57; Admin Dose 650 MG; Start 11/04/18 at 09:00 Miscellaneous Information 1 ea NOTE XX ; Start 11/04/18 at 09:00 Glucose (Glutose) 15 gm Q15M PRN PO DECREASED GLUCOSE; Start 11/04/18 at 09:00 Glucose (Glutose) 22.5 gm Q15M PRN PO DECREASED GLUCOSE; Start 11/04/18 at 09:00 Dextrose (D50w Syringe) 25 ml Q15M PRN IV DECREASED GLUCOSE; Start 11/04/18 at 09:00 Dextrose (D50w Syringe) 50 ml Q15M PRN IV DECREASED GLUCOSE; Start 11/04/18 at 09:00 Glucagon (Glucagen) 1 mg Q15M PRN IM DECREASED GLUCOSE; Start 11/04/18 at 09:00 Glucose (Glutose) 15 gm Q15M PRN BUCCAL DECREASED GLUCOSE; Start 11/04/18 at 09:00 Miscellaneous Information Patients own medicat... BID@10,16 XX Last administered on 11/20/18 16:16; Admin Dose 1 EA; Start 11/04/18 at 16:00 Sodium Hypochlorite (Dakins Diluted ()) 1 applic BID TP Last administered on 12/03/18 08:34; Admin Dose 1 APPLIC; Start 11/07/18 at 09:00 Hydralazine HCl (Apresoline) 10 mg Q4H PRN IV sbp >160 Last administered on 11/20/18 14:44; Admin Dose 10 MG; Start 11/08/18 at 09:00 Atropine Sulfate (Atropine) 0.5 mg PRN PRN IV SYMPTOMATIC BRADYCARDIA; Start 11/11/18 at 23:00 Heparin Sodium (Porcine) (Heparin (5000 Units/1ml)) 5,000 unit BID SC Last administered on 12/03/18 08:30; Admin Dose 5,000 UNIT; Start 11/14/18 at 21:00 Bisacodyl (Dulcolax Supp) 10 mg DAILY PRN [place] CONSTIPATION Last administered on 11/14/18 16:43; Admin Dose 10 MG; Start 11/14/18 at 16:30 IV Flush (NS 10 ml) 10 ml PRN PRN IV FLUSH LINE; Start 11/15/18 at 15:30 Gabapentin (Neurontin Liquid) 300 mg BID PO Last administered on 12/03/18 08:32; Admin Dose 300 MG; Start 11/18/18 at 21:00 Diagnostic Test (Pha) (Accu-Chek) 1 ea 02 XX Last administered on 12/01/18 02:36; Admin Dose 1 EA; Start 11/20/18 at 02:00 Ascorbic Acid (Vitamin C) 500 mg DAILY PO Last administered on 12/03/18 08:31; Admin Dose 500 MG; Start 11/20/18 at 09:00 Zinc Sulfate (Zinc Sulfate) 220 mg DAILY PO Last administered on 12/03/18 08:31; Admin Dose 220 MG; Start 11/20/18 at 09:00 Atorvastatin Calcium (Lipitor) 80 mg QHS PO Last administered on 12/02/18 20:13; Admin Dose 80 MG; Start 11/19/18 at 21:00 Furosemide (Lasix) 40 mg DAILY PO Last administered on 12/02/18 08:58; Admin Dose 40 MG; Start 11/21/18 at 09:00; Status Hold Insulin Glargine (Lantus) 25 units DAILY@0800 SC Last administered on 12/03/18 08:30; Admin Dose 25 UNITS; Start 11/22/18 at 08:00 Lorazepam (Ativan) 0.5 mg Q6H PRN IV anxiety/agitation Last administered on 11/22/18 19:32; Admin Dose 0.5 MG; Start 11/22/18 at 11:00 Clopidogrel Bisulfate (plaVIX) 75 mg DAILY PO Last administered on 12/03/18 08:31; Admin Dose 75 MG; Start 11/23/18 at 09:00 Haloperidol (Haldol) 5 mg Q12H PRN IM agitation Last administered on 11/22/18 19:44; Admin Dose 5 MG; Start 11/22/18 at 14:30 Quetiapine Fumarate (Seroquel) 25 mg QHS PO Last administered on 12/02/18 20:13; Admin Dose 25 MG; Start 11/26/18 at 21:00 Hydralazine HCl (Apresoline) 25 mg TID PO Last administered on 11/28/18 21:08; Admin Dose 25 MG; Start 11/28/18 at 13:00; Status Hold Polyethylene Glycol (Miralax) 17 gm DAILY PRN PO constipation; Start 11/29/18 at 08:02 Aspirin (Aspirin) 81 mg DAILY PO Last administered on 12/03/18 08:31; Admin Dose 81 MG; Start 11/29/18 at 09:00 Famotidine (Pepcid) 20 mg DAILY PO Last administered on 12/03/18 08:31; Admin Dose 20 MG; Start 11/29/18 at 09:00 Senna/Docusate Sodium (Senokot-S) 1 tab BID PRN PO constipation; Start 11/29/18 at 08:30 Insulin Aspart (Novolog Insulin Pen) 4 unit WITH MEALS SC Last administered on 12/03/18at 12:37; Admin Dose 4 UNIT; Start 12/02/18 at 17:35 Insulin Aspart (Novolog Insulin Pen) NOVOLOG *MILD* ALGORITHM WITH MEALS BEDTIME SC Last administered on 12/03/18at 12:36; Admin Dose 2 UNIT; Start 12/02/18 at 18:05 Lisinopril (Zestril) 2.5 mg DAILY PO ; Start 12/03/18 at 09:00 Magnesium Oxide (Mag-Ox 400) 400 mg ONCE ONCE PO ; Start 12/03/18 at 14:30; Stop 12/03/18 at 14:31 Vancomycin HCl (Vanco Iv Per Pharmacy) VANCOMYCIN PER PHARMACY PER PROTOCOL XX ; Start 12/03/18 at 14:30; Status UNV Fluconazole/ Sodium Chloride 50 ml @ 50 mls/hr Q24H IVPB ; Start 12/03/18 at 14:30; Status UNV Sodium Chloride 1,000 ml @ 50 mls/hr Q20H IV ; Start 12/03/18 at 14:30; Stop 12/04/18 at 10:29; Status UNV HERRERA MURILLO NP Dec 03, 2018 14:25
[2018-12-03] MEDS ORDERED: SOD CHLORIDE 0.9% 1,000 ML IV SCH (14:30)
[2018-12-03] MEDS ORDERED: VANCOMYCIN IV PER PHARMACY XX SCH (14:30)
[2018-12-03] MEDS ORDERED: MAGNESIUM OXIDE 400 MG TAB PO ONE (14:30)
--- NOTE | 2018-12-03 14:50 | PN ---
Date/Time of Note Date/Time of Note DATE: 12/03/18 TIME: 14:46 Objective Vitals Vital Signs Date Temp Pulse Resp B/P (MAP) Pulse Ox O2 O2 Flow FiO2 Time Delivery Rate 12/03/18 97.4 96 18 91/52 (65) 96 14:18 12/02/18 Room Air 20:00 Intake and Output 12/02/18 12/02/18 12/03/18 1515:00 23:00 07:00 IntakeIntake Total 1900 ml BalanceBalance 1900 ml Results Result Diagram: 12/03/1840 12/03/18 0640 Medications Medications Current Medications Ergocalciferol (Drisdol) 50,000 unit Sa PO Last administered on 11/30/18at 08:00; Admin Dose 50,000 UNIT; Start 11/09/18 at 09:00 Miscellaneous Medication (Bystolic) 20 mg DAILY PO Last administered on 11/11/18at 09:03; Admin Dose 20 MG; Start 11/04/18 at 09:00; Status Hold Clonidine (Catapres) 0.1 mg Q6H PRN PO SBP>160 Last administered on 11/19/18at 03:04; Admin Dose 0.1 MG; Start 11/04/18 at 09:00 IV Flush (NS 3 ml) 3 ml PER PROTOCOL IV ; Start 11/04/18 at 09:00 Ondansetron HCl (Zofran Inj) 4 mg Q6H PRN IV NAUSEA/VOMITING; Start 11/04/18 at 09:00 Acetaminophen (Tylenol Tab) 650 mg Q6H PRN PO .PAIN 1-3 OR TEMP Last administered on 12/02/18at 09:57; Admin Dose 650 MG; Start 11/04/18 at 09:00 Miscellaneous Information 1 ea NOTE XX ; Start 11/04/18 at 09:00 Glucose (Glutose) 15 gm Q15M PRN PO DECREASED GLUCOSE; Start 11/04/18 at 09:00 Glucose (Glutose) 22.5 gm Q15M PRN PO DECREASED GLUCOSE; Start 11/04/18 at 09:00 Dextrose (D50w Syringe) 25 ml Q15M PRN IV DECREASED GLUCOSE; Start 11/04/18 at 09:00 Dextrose (D50w Syringe) 50 ml Q15M PRN IV DECREASED GLUCOSE; Start 11/04/18 at 09:00 Glucagon (Glucagen) 1 mg Q15M PRN IM DECREASED GLUCOSE; Start 11/04/18 at 09:00 Glucose (Glutose) 15 gm Q15M PRN BUCCAL DECREASED GLUCOSE; Start 11/04/18 at 09:00 Miscellaneous Information Patients own medicat... BID@10,16 XX Last administered on 11/20/18 16:16; Admin Dose 1 EA; Start 11/04/18 at 16:00 Sodium Hypochlorite (Dakins Diluted ()) 1 applic BID TP Last administered on 12/03/18 08:34; Admin Dose 1 APPLIC; Start 11/07/18 at 09:00 Hydralazine HCl (Apresoline) 10 mg Q4H PRN IV sbp >160 Last administered on 11/20/18 14:44; Admin Dose 10 MG; Start 11/08/18 at 09:00 Atropine Sulfate (Atropine) 0.5 mg PRN PRN IV SYMPTOMATIC BRADYCARDIA; Start 11/11/18 at 23:00 Heparin Sodium (Porcine) (Heparin (5000 Units/1ml)) 5,000 unit BID SC Last administered on 12/03/18 08:30; Admin Dose 5,000 UNIT; Start 11/14/18 at 21:00 Bisacodyl (Dulcolax Supp) 10 mg DAILY PRN [place] CONSTIPATION Last administered on 11/14/18 16:43; Admin Dose 10 MG; Start 11/14/18 at 16:30 IV Flush (NS 10 ml) 10 ml PRN PRN IV FLUSH LINE; Start 11/15/18 at 15:30 Gabapentin (Neurontin Liquid) 300 mg BID PO Last administered on 12/03/18 08:32; Admin Dose 300 MG; Start 11/18/18 at 21:00 Diagnostic Test (Pha) (Accu-Chek) 1 ea 02 XX Last administered on 12/01/18 02:36; Admin Dose 1 EA; Start 11/20/18 at 02:00 Ascorbic Acid (Vitamin C) 500 mg DAILY PO Last administered on 12/03/18 08:31; Admin Dose 500 MG; Start 11/20/18 at 09:00 Zinc Sulfate (Zinc Sulfate) 220 mg DAILY PO Last administered on 12/03/18 08:31; Admin Dose 220 MG; Start 11/20/18 at 09:00 Atorvastatin Calcium (Lipitor) 80 mg QHS PO Last administered on 12/02/18 20:13; Admin Dose 80 MG; Start 11/19/18 at 21:00 Insulin Glargine (Lantus) 25 units DAILY@0800 SC Last administered on 12/03/18 08:30; Admin Dose 25 UNITS; Start 11/22/18 at 08:00 Lorazepam (Ativan) 0.5 mg Q6H PRN IV anxiety/agitation Last administered on 11/22/18 19:32; Admin Dose 0.5 MG; Start 11/22/18 at 11:00 Clopidogrel Bisulfate (plaVIX) 75 mg DAILY PO Last administered on 12/03/18 08:31; Admin Dose 75 MG; Start 11/23/18 at 09:00 Haloperidol (Haldol) 5 mg Q12H PRN IM agitation Last administered on 11/22/18 19:44; Admin Dose 5 MG; Start 11/22/18 at 14:30 Quetiapine Fumarate (Seroquel) 25 mg QHS PO Last administered on 12/02/18 20:13; Admin Dose 25 MG; Start 11/26/18 at 21:00 Hydralazine HCl (Apresoline) 25 mg TID PO Last administered on 11/28/18 21:08; Admin Dose 25 MG; Start 11/28/18 at 13:00; Status Hold Polyethylene Glycol (Miralax) 17 gm DAILY PRN PO constipation; Start 11/29/18 at 08:02 Aspirin (Aspirin) 81 mg DAILY PO Last administered on 12/03/18 08:31; Admin Dose 81 MG; Start 11/29/18 at 09:00 Famotidine (Pepcid) 20 mg DAILY PO Last administered on 12/03/18 08:31; Admin Dose 20 MG; Start 11/29/18 at 09:00 Senna/Docusate Sodium (Senokot-S) 1 tab BID PRN PO constipation; Start 11/29/18 at 08:30 Insulin Aspart (Novolog Insulin Pen) 4 unit WITH MEALS SC Last administered on 12/03/18 12:37; Admin Dose 4 UNIT; Start 12/02/18 at 17:35 Insulin Aspart (Novolog Insulin Pen) NOVOLOG *MILD* ALGORITHM WITH MEALS BEDTIME SC Last administered on 12/03/18at 12:36; Admin Dose 2 UNIT; Start 12/02/18 at 18:05 Lisinopril (Zestril) 2.5 mg DAILY PO ; Start 12/03/18 at 09:00 Vancomycin HCl (Vanco Iv Per Pharmacy) VANCOMYCIN PER PHARMACY PER PROTOCOL XX ; Start 12/03/18 at 14:30 Fluconazole/ Sodium Chloride 50 ml @ 50 mls/hr Q24H IVPB ; Start 12/03/18 at 15:30 Sodium Chloride 1,000 ml @ 50 mls/hr Q20H IV ; Start 12/03/18 at 14:30; Stop 12/04/18 at 10:29 VTE Prophylaxis [place] [facility] risk: 5 SCD applied [place] [facility] Yes Lines/Catheters IV Catheter Type: Schneider in Place: No Assessment/Plan Hospital Course Subjective Patient doing well but still mildly hypotensive Objective Physical exam General: Patient is laying in bed responding to questions appropriately Mentation: Patient is alert and oriented Head: Normocephalic atraumatic Eyes: EOMI, pupils reactive to light Neck: Supple, nontender, midline Respiratory: Coarse to auscultation bilaterally Cardiovascular: regular rate, no obvious murmurs Gastrointestinal: non-tender to palpation, bowel sounds heard. Neurological: Moves all extremities spontaneously Skin: No new skin lesions, surgical site bandaged, CDI Assessment/Plan Questionable bacteremia -Questionable to bacteremia, infectious disease will be back on board -IV vancomycin for now Fungal UTI -Add IV fluconazole -Infectious disease recommendations appreciated Mild hypotension -Continue IV fluid, hold Lasix per cardiology recommendation 1. 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 Completed course of antibiotics - Continue local wound care - Podiatry on board and appreciate consultation. no further procedures schedul ed at this time 2. Left frontal CVA - Neurology on board and appreciate recommendations - continue on aspirin and Plavix and statin 3. left-sided internal carotid artery stenosis - 25% per CT angiogram, continue aspirin, statin, Plavix per vascular surgeon 4. Acute hypoxic respiratory failure-resolved - doing well on room air - Pulmonology consultation appreciated 5. Cardiac arrest s/p ROSC - Cardiology on board and appreciate recommendations - ECHO with preserved EF 6. Severe peripheral vascular disease - s/p left femoral endarterectomy, iliofemoral bypass and femoral to posterior tibial bypass done on November 08, 2018 - Vascular surgery consultation appreciated. Continue aspirin and Plavix 7. Diabetes Mellitus - A1c noted - continue lantus and ISS. adjust as needed 8. Acute kidney injury- resolved - nephrology consultation appreciated 9. Essential HTN - Continue home medications at this time as tolerated 10. Peripheral neuropathy - cont. gabapentin 11. HLD - On statin 12. Chronic anemia - Stable H&H. Monitor - no need for transfusions at this time 13. Urinary retention - Urology on board and appreciate recommendations. -patient doing well on voiding trial, no schneider acute delerium -resolved. 14. Disposition - CM on board for placement to SNF. Patient has restricted Medi-ayesha and financial counselor on board to assist with transitioning to full scope given need for SNF FRANTZ SCHWAB Dec 03, 2018 14:50
[2018-12-03] MEDS ORDERED: VANCOMYCIN HCL 1.75 GM in SOD CHLORIDE 0.9% 500 ML IVPB SCH (16:00)
[2018-12-03] MEDS: FLUCONAZOLE 100 MG/50 ML (PMX) 50 ML IVPB SCH (16:12)
[2018-12-03 20:00] VITALS: BP 174/79; PULSE 88; RESP 16
[2018-12-03] MEDS: ATORVASTATIN 80 MG TAB PO SCH (20:15)
[2018-12-03] MEDS: QUETIAPINE 25 MG TAB PO SCH (20:15)
[2018-12-03 21:06] VITALS: BP 155/87; RESP 18
[2018-12-04] MEDS: ACCU-CHEK XX SCH (02:00)
[2018-12-04 02:27] VITALS: BP 122/64; PULSE 91; RESP 16
[2018-12-04] MEDS: VANCOMYCIN 1 GM 250 ML IVPB SCH ×2 (04:05→15:59)
[2018-12-04 07:43] VITALS: BP 122/72; PULSE 83; RESP 16
[2018-12-04] MEDS: INSULIN GLARGINE [LANTus] (100 UNITS/ML) SYG SC SCH (08:00)
[2018-12-04] MEDS: INSULIN ASPART [NOVOLOG] 3 ML PEN SC SCH ×7 (08:00→20:52)
[2018-12-04] MEDS: HEPARIN 5,000 UNIT/1 ML VIAL SC SCH ×2 (08:01→20:55)
[2018-12-04] MEDS: ZINC SULFATE 220 MG CAP PO SCH (08:04)
[2018-12-04] MEDS: ASCORBIC ACID 500 MG TAB PO SCH (08:04)
[2018-12-04] MEDS: GABAPENTIN (50 MG/ML PO SYG) PO SCH ×2 (08:04→20:52)
[2018-12-04] MEDS: FAMOTIDINE 20 MG TAB PO SCH (08:04)
[2018-12-04] MEDS: ASPIRIN 81 MG TAB PO SCH (08:04)
[2018-12-04] MEDS: CLOPIDOGREL 75 MG TAB PO SCH (08:05)
[2018-12-04] MEDS: LISINOPRIL 5 MG TAB PO SCH (08:05)
[2018-12-04] MEDS: DAKINS 0.0125%(1/40) 473 ML SOLUTION TP SCH ×2 (08:05→20:53)
--- NOTE | 2018-12-04 10:11 | PN ---
Date/Time of Note Date/Time of Note DATE: 12/04/18 TIME: 10:10 Objective Vitals Vital Signs Date Temp Pulse Resp B/P (MAP) Pulse Ox O2 O2 Flow FiO2 Time Delivery Rate 12/04/18 98.1 83 16 122/72 97 07:43 (89) 12/02/18 Room Air 20:00 Intake and Output 12/03/18 12/03/18 12/04/18 1515:00 23:00 07:00 IntakeIntake Total 500 ml 1300 ml 700 ml OutputOutput Total 175 ml 400 ml BalanceBalance 325 ml 900 ml 700 ml Results Result Diagram: 12/04/18 0559 12/04/18 0559 Medications Medications Current Medications Ergocalciferol (Drisdol) 50,000 unit Sa PO Last administered on 11/30/18at 08:00; Admin Dose 50,000 UNIT; Start 11/09/18 at 09:00 Miscellaneous Medication (Bystolic) 20 mg DAILY PO Last administered on 11/11/18at 09:03; Admin Dose 20 MG; Start 11/04/18 at 09:00; Status Hold Clonidine (Catapres) 0.1 mg Q6H PRN PO SBP>160 Last administered on 11/19/18at 03:04; Admin Dose 0.1 MG; Start 11/04/18 at 09:00 IV Flush (NS 3 ml) 3 ml PER PROTOCOL IV ; Start 11/04/18 at 09:00 Ondansetron HCl (Zofran Inj) 4 mg Q6H PRN IV NAUSEA/VOMITING; Start 11/04/18 at 09:00 Acetaminophen (Tylenol Tab) 650 mg Q6H PRN PO .PAIN 1-3 OR TEMP Last administered on 12/02/18at 09:57; Admin Dose 650 MG; Start 11/04/18 at 09:00 Miscellaneous Information 1 ea NOTE XX ; Start 11/04/18 at 09:00 Glucose (Glutose) 15 gm Q15M PRN PO DECREASED GLUCOSE; Start 11/04/18 at 09:00 Glucose (Glutose) 22.5 gm Q15M PRN PO DECREASED GLUCOSE; Start 11/04/18 at 09:00 Dextrose (D50w Syringe) 25 ml Q15M PRN IV DECREASED GLUCOSE; Start 11/04/18 at 09:00 Dextrose (D50w Syringe) 50 ml Q15M PRN IV DECREASED GLUCOSE; Start 11/04/18 at 09:00 Glucagon (Glucagen) 1 mg Q15M PRN IM DECREASED GLUCOSE; Start 11/04/18 at 09:00 Glucose (Glutose) 15 gm Q15M PRN BUCCAL DECREASED GLUCOSE; Start 11/04/18 at 09:00 Miscellaneous Information Patients own medicat... BID@10,16 XX Last administered on 11/20/18at 16:16; Admin Dose 1 EA; Start 11/04/18 at 16:00 Sodium Hypochlorite (Dakins Diluted ()) 1 applic BID TP Last administered on 12/04/18at 08:05; Admin Dose 1 APPLIC; Start 11/07/18 at 09:00 Hydralazine HCl (Apresoline) 10 mg Q4H PRN IV sbp >160 Last administered on 11/20/18at 14:44; Admin Dose 10 MG; Start 11/08/18 at 09:00 Atropine Sulfate (Atropine) 0.5 mg PRN PRN IV SYMPTOMATIC BRADYCARDIA; Start 11/11/18 at 23:00 Heparin Sodium (Porcine) (Heparin (5000 Units/1ml)) 5,000 unit BID SC Last administered on 12/04/18at 08:01; Admin Dose 5,000 UNIT; Start 11/14/18 at 21:00 Bisacodyl (Dulcolax Supp) 10 mg DAILY PRN [place] CONSTIPATION Last administered on 11/14/18at 16:43; Admin Dose 10 MG; Start 11/14/18 at 16:30 IV Flush (NS 10 ml) 10 ml PRN PRN IV FLUSH LINE; Start 11/15/18 at 15:30 Gabapentin (Neurontin Liquid) 300 mg BID PO Last administered on 12/04/18at 08:04; Admin Dose 300 MG; Start 11/18/18 at 21:00 Diagnostic Test (Pha) (Accu-Chek) 1 ea 02 XX Last administered on 12/04/18at 02:00; Admin Dose 1 EA; Start 11/20/18 at 02:00 Ascorbic Acid (Vitamin C) 500 mg DAILY PO Last administered on 12/04/18at 08:04; Admin Dose 500 MG; Start 11/20/18 at 09:00 Zinc Sulfate (Zinc Sulfate) 220 mg DAILY PO Last administered on 12/04/18 08:04; Admin Dose 220 MG; Start 11/20/18 at 09:00 Atorvastatin Calcium (Lipitor) 80 mg QHS PO Last administered on 12/03/18 20:15; Admin Dose 80 MG; Start 11/19/18 at 21:00 Insulin Glargine (Lantus) 25 units DAILY@0800 SC Last administered on 12/04/18 08:00; Admin Dose 25 UNITS; Start 11/22/18 at 08:00 Lorazepam (Ativan) 0.5 mg Q6H PRN IV anxiety/agitation Last administered on 11/22/18 19:32; Admin Dose 0.5 MG; Start 11/22/18 at 11:00 Clopidogrel Bisulfate (plaVIX) 75 mg DAILY PO Last administered on 12/04/18 08:05; Admin Dose 75 MG; Start 11/23/18 at 09:00 Haloperidol (Haldol) 5 mg Q12H PRN IM agitation Last administered on 11/22/18 19:44; Admin Dose 5 MG; Start 11/22/18 at 14:30 Quetiapine Fumarate (Seroquel) 25 mg QHS PO Last administered on 12/03/18 20:15; Admin Dose 25 MG; Start 11/26/18 at 21:00 Hydralazine HCl (Apresoline) 25 mg TID PO Last administered on 11/28/18at 21:08; Admin Dose 25 MG; Start 11/28/18 at 13:00; Status Hold Polyethylene Glycol (Miralax) 17 gm DAILY PRN PO constipation; Start 11/29/18 at 08:02 Aspirin (Aspirin) 81 mg DAILY PO Last administered on 12/04/18 08:04; Admin Dose 81 MG; Start 11/29/18 at 09:00 Famotidine (Pepcid) 20 mg DAILY PO Last administered on 12/04/18 08:04; Admin Dose 20 MG; Start 11/29/18 at 09:00 Senna/Docusate Sodium (Senokot-S) 1 tab BID PRN PO constipation; Start 11/29/18 at 08:30 Insulin Aspart (Novolog Insulin Pen) 4 unit WITH MEALS SC Last administered on 12/04/18at 08:01; Admin Dose 4 UNIT; Start 12/02/18 at 17:35 Insulin Aspart (Novolog Insulin Pen) NOVOLOG *MILD* ALGORITHM WITH MEALS BEDTIME SC Last administered on 12/03/18at 20:19; Admin Dose 3 UNIT; Start 12/02/18 at 18:05 Lisinopril (Zestril) 2.5 mg DAILY PO Last administered on 12/04/18at 08:05; Admin Dose 2.5 MG; Start 12/03/18 at 09:00 Vancomycin HCl (Vanco Iv Per Pharmacy) VANCOMYCIN PER PHARMACY PER PROTOCOL XX ; Start 12/03/18 at 14:30 Fluconazole/ Sodium Chloride 50 ml @ 50 mls/hr Q24H IVPB Last administered on 12/03/18at 16:12; Admin Dose 50 MLS/HR; Start 12/03/18 at 15:30 Sodium Chloride 1,000 ml @ 50 mls/hr Q20H IV Last administered on 12/03/18at 15:52; Admin Dose 50 MLS/HR; Start 12/03/18 at 14:30; Stop 12/04/18 at 10:29 Vancomycin HCl 250 ml @ 125 mls/hr Q12H IVPB Last administered on 12/04/18at 04:05; Admin Dose 125 MLS/HR; Start 12/04/18 at 04:00 VTE Prophylaxis Risk score (from Ns)>0 risk: 4 SCD applied (from Ns): Yes Lines/Catheters IV Catheter Type: Schneider in Place: No Assessment/Plan Hospital Course Subjective Patient doing well Objective Physical exam General: Patient is laying in bed responding to questions appropriately Mentation: Patient is alert and oriented Head: Normocephalic atraumatic Eyes: EOMI, pupils reactive to light Neck: Supple, nontender, midline Respiratory: Coarse to auscultation bilaterally Cardiovascular: regular rate, no obvious murmurs Gastrointestinal: non-tender to palpation, bowel sounds heard. Neurological: Moves all extremities spontaneously Skin: No new skin lesions, surgical site bandaged, CDI Assessment/Plan Questionable bacteremia -Questionable to bacteremia, infectious disease will be back on board -IV vancomycin for now Fungal UTI -Add IV fluconazole -Infectious disease recommendations appreciated Mild hypotension, resolved -Stop IV fluid, hold Lasix per cardiology recommendation 1. 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 Completed course of antibiotics - Continue local wound care - Podiatry on board and appreciate consultation. no further procedures scheduled at this time 2. Left frontal CVA - Neurology on board and appreciate recommendations - continue on aspirin and Plavix and statin 3. left-sided internal carotid artery stenosis - 25% per CT angiogram, continue aspirin, statin, Plavix per vascular surgeon 4. Acute hypoxic respiratory failure-resolved - doing well on room air - Pulmonology consultation appreciated 5. Cardiac arrest s/p ROSC - Cardiology on board and appreciate recommendations - ECHO with preserved EF 6. Severe peripheral vascular disease - s/p left femoral endarterectomy, iliofemoral bypass and femoral to posterior tibial bypass done on November 08, 2018 - Vascular surgery consultation appreciated. Continue aspirin and Plavix 7. Diabetes Mellitus - A1c noted - continue lantus and ISS. adjust as needed 8. Acute kidney injury- resolved - nephrology consultation appreciated 9. Essential HTN - Continue home medications at this time as tolerated 10. Peripheral neuropathy - cont. gabapentin 11. HLD - On statin 12. Chronic anemia - Stable H&H. Monitor - no need for transfusions at this time 13. Urinary retention - Urology on board and appreciate recommendations. -patient doing well on voiding trial, no schneider acute delerium -resolved. 14. Disposition - CM on board for placement to SNF. Patient has restricted Medi[facility] and financial counselor on board to assist with transitioning to full scope given need for SNF FRANTZ SCHWAB Dec 04, 2018 10:11
[2018-12-04] MEDS: FUROSEMIDE 20 MG TAB PO SCH (11:39)
--- NOTE | 2018-12-04 12:01 | QN ---
Documentation Comment No new c/o. He started draining serous fluid from the left groin incision yesterday. No odor or bleeding. I squeezed ~20cc of lymphatic fluid from the incision from one small opening in the upper portion of the wound - the rest of it is healed. No erythema or tenderness. AFVSS L foot is warm, 5th toe amputation site is healed well. 2+ graft pulse. Mild edema. WBC 5, bld cx 1/2 gm +cocci, not speciated yet, started on Vanco yesterday preemptively - culture left groin fluid - ID f/u - continue Vanco pending bld cx results - the drainage from the left groin looks like lymphatic fluid, pain with betadine and change dressing 3x / day - will consult wound care nurse to place wound VAC for incisions KLEVER FOREMAN MD Dec 04, 2018 12:01
[2018-12-04 14:32] VITALS: BP 121/66; PULSE 90; RESP 16
[2018-12-04] MEDS: FLUCONAZOLE 100 MG/50 ML (PMX) 50 ML IVPB SCH (15:59)
--- NOTE | 2018-12-04 16:46 | CONS ---
Assessment/Plan Assessment/Plan Hospital Course (Demo Recall) IMPRESSION: 1. Preoperative evaluation prior to possible need for peripheral revascularization surgery.-neg trop x 3 and NL EF by echo with no sig valve abnl. Echo repeat 11/13 with NL EF 2. Peripheral arterial disease with nonhealing gangrenous changes in left toe ulceration. 3. Hypertension-today with holding of ACEI and borderline hypotension 4. Dyslipidemia. 5. Diabetes mellitus. 6. s/p cardiopulmonary arrest 7. Bradycardic intermittent by tele 8. Positive troponin after arrest-? secondary to or primary to arrest, likely secondary to arrest, type 2 demand infarct, as no signifcant uptrend and now downtrended to negative 9. Resp failure-s/p extubation 10. CVA-Acute by MRI Recc: -Now on med-surg -Continue asa/plavix/statin -serial ecg's -s/p course of abx's -local wound care -heparin was d/c'd secondary to anemia requiring transfusions -follow volume status closely now back on daily lasix -follow MS closely with ongoing neuro eval for CVA -Continue now zestril mononotherapy with patient having overall improved BP s/p IVF bolus Consultation Date/Type/Reason Admit Date/Time Nov 04, 2018 at 07:34 Initial Consult Date 11/06/18 Type of Consult Cardiology Reason for Consultation HTN Requesting Provider: KARL WOOD MD Date/Time of Note DATE: 12/04/18 TIME: 16:43 Exam/Review of Systems Vital Signs Vitals Vital Signs Date Temp Pulse Resp B/P (MAP) Pulse Ox O2 O2 Flow FiO2 Time Delivery Rate 12/04/18 97.4 90 16 121/66 99 14:32 (84) 12/02/18 Room Air 20:00 Intake and Output 12/03/18 12/03/18 12/04/18 1515:00 23:00 07:00 IntakeIntake Total 500 ml 1300 ml 700 ml OutputOutput Total 175 ml 400 ml BalanceBalance 325 ml 900 ml 700 ml Exam Exam Review of Systems: CONSTITUTIONAL: No fevers, chills. PULMONARY: No sob CARDIOVASCULAR: No chest pain/palpitations GASTROINTESTINAL: No nausea/vomiting. GENITOURINARY: No hematuria/dysuria. MUSCULOSKELETAL: No myagias/arthalgias. PSYCHIATRIC: The patient denies depression. NEUROLOGIC: No weakness Constitutional: alert Psych: no complaints Head: normocephalic ENMT: mucosa pink and moist Neck: supple, jvd (9 cm water) Respiratory: clear to auscultation Cardiovascular: regular rate and rhythm Gastrointestinal: soft, non-tender Musculoskeletal: muscle tone (normal) Extremities: pitting pedal edema (trace/B), other (wound vac in place/foor covered by dressing) Labs Result Diagram: 12/04/18 0559 12/04/18 0951 Results 24hrs Laboratory Tests Test 12/03/18 17:21 12/03/18 20:12 12/04/18 03:04 12/04/18 05:59 Bedside Glucose 163 274 H 141 White Blood Count 4.5 L Red Blood Count 3.69 L Hemoglobin 11.2 L Hematocrit 34.6 L Mean Corpuscular 93.8 Volume Mean Corpuscular 30.4 Hemoglobin Mean Corpuscular 32.4 Hemoglobin Concent Red Cell 13.7 Distribution Width Platelet Count 198 Mean Platelet Volume 11.0 H Immature 0.400 Granulocytes % Neutrophils % 43.3 Lymphocytes % 35.7 Monocytes % 12.1 H Eosinophils % 7.4 H Basophils % 1.1 Nucleated Red Blood 0.0 Cells % Immature 0.020 Granulocytes # Neutrophils # 1.9 Lymphocytes # 1.6 Monocytes # 0.5 Eosinophils # 0.3 Basophils # 0.1 Nucleated Red Blood 0.0 Cells # Sodium Level 140 Potassium Level 5.3 H Chloride Level 105 Carbon Dioxide Level 30 Anion Gap 5 Blood Urea Nitrogen 19 Creatinine 0.93 Est Glomerular Filtrat Rate mL/min Glucose Level 126 Calcium Level 9.0 Phosphorus Level 3.4 Magnesium Level 1.8 Test 12/04/18 07:58 12/04/18 09:51 12/04/18 11:37 Bedside Glucose 131 213 Potassium Level 4.8 Medications Medications Current Medications Ergocalciferol (Drisdol) 50,000 unit Sa PO Last administered on 11/30/18at 08:00; Admin Dose 50,000 UNIT; Start 11/09/18 at 09:00 Miscellaneous Medication (Bystolic) 20 mg DAILY PO Last administered on 11/11/18at 09:03; Admin Dose 20 MG; Start 11/04/18 at 09:00; Status Hold Clonidine (Catapres) 0.1 mg Q6H PRN PO SBP>160 Last administered on 11/19/18at 03:04; Admin Dose 0.1 MG; Start 11/04/18 at 09:00 IV Flush (NS 3 ml) 3 ml PER PROTOCOL IV ; Start 11/04/18 at 09:00 Ondansetron HCl (Zofran Inj) 4 mg Q6H PRN IV NAUSEA/VOMITING; Start 11/04/18 at 09:00 Acetaminophen (Tylenol Tab) 650 mg Q6H PRN PO .PAIN 1-3 OR TEMP Last administer ed on 12/02/18at 09:57; Admin Dose 650 MG; Start 11/04/18 at 09:00 Miscellaneous Information 1 ea NOTE XX ; Start 11/04/18 at 09:00 Glucose (Glutose) 15 gm Q15M PRN PO DECREASED GLUCOSE; Start 11/04/18 at 09:00 Glucose (Glutose) 22.5 gm Q15M PRN PO DECREASED GLUCOSE; Start 11/04/18 at 09:00 Dextrose (D50w Syringe) 25 ml Q15M PRN IV DECREASED GLUCOSE; Start 11/04/18 at 09:00 Dextrose (D50w Syringe) 50 ml Q15M PRN IV DECREASED GLUCOSE; Start 11/04/18 at 09:00 Glucagon (Glucagen) 1 mg Q15M PRN IM DECREASED GLUCOSE; Start 11/04/18 at 09:00 Glucose (Glutose) 15 gm Q15M PRN BUCCAL DECREASED GLUCOSE; Start 11/04/18 at 09:00 Miscellaneous Information Patients own medicat... BID@10,16 XX Last a dministered on 11/20/18at 16:16; Admin Dose 1 EA; Start 11/04/18 at 16:00 Sodium Hypochlorite (Dakins Diluted (40)) 1 applic BID TP Last administered on 12/04/18at 08:05; Admin Dose 1 APPLIC; Start 11/07/18 at 09:00 Hydralazine HCl (Apresoline) 10 mg Q4H PRN IV sbp >160 Last administered on 11/20/18at 14:44; Admin Dose 10 MG; Start 11/08/18 at 09:00 Atropine Sulfate (Atropine) 0.5 mg PRN PRN IV SYMPTOMATIC BRADYCARDIA; Start 11/11/18 at 23:00 Heparin Sodium (Porcine) (Heparin (5000 Units/1ml)) 5,000 unit BID SC Last administered on 12/04/18 08:01; Admin Dose 5,000 UNIT; Start 11/14/18 at 21:00 Bisacodyl (Dulcolax Supp) 10 mg DAILY PRN [place] CONSTIPATION Last administered on 11/14/18 16:43; Admin Dose 10 MG; Start 11/14/18 at 16:30 IV Flush (NS 10 ml) 10 ml PRN PRN IV FLUSH LINE; Start 11/15/18 at 15:30 Gabapentin (Neurontin Liquid) 300 mg BID PO Last administered on 12/04/18 08:04; Admin Dose 300 MG; Start 11/18/18 at 21:00 Diagnostic Test (Pha) (Accu-Chek) 1 ea 02 XX Last administered on 12/04/18 02:00; Admin Dose 1 EA; Start 11/20/18 at 02:00 Ascorbic Acid (Vitamin C) 500 mg DAILY PO Last administered on 12/04/18 08:04; Admin Dose 500 MG; Start 11/20/18 at 09:00 Zinc Sulfate (Zinc Sulfate) 220 mg DAILY PO Last administered on 12/04/18 08:04; Admin Dose 220 MG; Start 11/20/18 at 09:00 Atorvastatin Calcium (Lipitor) 80 mg QHS PO Last administered on 12/03/18 20:15; Admin Dose 80 MG; Start 11/19/18 at 21:00 Insulin Glargine (Lantus) 25 units DAILY@0800 SC Last administered on 12/04/18 08:00; Admin Dose 25 UNITS; Start 11/22/18 at 08:00 Lorazepam (Ativan) 0.5 mg Q6H PRN IV anxiety/agitation Last administered on 11/22/18 19:32; Admin Dose 0.5 MG; Start 11/22/18 at 11:00 Clopidogrel Bisulfate (plaVIX) 75 mg DAILY PO Last administered on 12/04/18 08:05; Admin Dose 75 MG; Start 11/23/18 at 09:00 Haloperidol (Haldol) 5 mg Q12H PRN IM agitation Last administered on 11/22/18 19:44; Admin Dose 5 MG; Start 11/22/18 at 14:30 Quetiapine Fumarate (Seroquel) 25 mg QHS PO Last administered on 12/03/18at 20:15; Admin Dose 25 MG; Start 11/26/18 at 21:00 Hydralazine HCl (Apresoline) 25 mg TID PO Last administered on 11/28/18at 21:08; Admin Dose 25 MG; Start 11/28/18 at 13:00; Status Hold Polyethylene Glycol (Miralax) 17 gm DAILY PRN PO constipation; Start 11/29/18 at 08:02 Aspirin (Aspirin) 81 mg DAILY PO Last administered on 12/04/18at 08:04; Admin Dose 81 MG; Start 11/29/18 at 09:00 Famotidine (Pepcid) 20 mg DAILY PO Last administered on 12/04/18at 08:04; Admin Dose 20 MG; Start 11/29/18 at 09:00 Senna/Docusate Sodium (Senokot-S) 1 tab BID PRN PO constipation; Start 11/29/18 at 08:30 Insulin Aspart (Novolog Insulin Pen) 4 unit WITH MEALS SC Last administered on 12/04/18at 11:40; Admin Dose 4 UNIT; Start 12/02/18 at 17:35 Insulin Aspart (Novolog Insulin Pen) NOVOLOG *MILD* ALGORITHM WITH MEALS BEDTIME SC Last administered on 12/04/18at 11:41; Admin Dose 2 UNIT; Start 12/02/18 at 18:05 Lisinopril (Zestril) 2.5 mg DAILY PO Last administered on 12/04/18at 08:05; Admin Dose 2.5 MG; Start 12/03/18 at 09:00 Vancomycin HCl (Vanco Iv Per Pharmacy) VANCOMYCIN PER PHARMACY PER PROTOCOL XX ; Start 12/03/18 at 14:30 Fluconazole/ Sodium Chloride 50 ml @ 50 mls/hr Q24H IVPB Last administered on 12/04/18at 15:59; Admin Dose 50 MLS/HR; Start 12/03/18 at 15:30 Vancomycin HCl 250 ml @ 125 mls/hr Q12H IVPB Last administered on 12/04/18at 15:59; Admin Dose 125 MLS/HR; Start 12/04/18 at 04:00 Miscellaneous Information (*Rx Drug Level Order Reminder*) VANCOMYCIN TROUGH AT 1,400 1500 ONCE XX ; Start 12/05/18 at 15:00; Stop 12/05/18 at 15:01 Furosemide (Lasix) 20 mg DAILY@0600 PO Last administered on 12/04/18at 11:39; Admin Dose 20 MG; Start 12/04/18 at 10:30 KLEVER HUNT Dec 04, 2018 16:46
[2018-12-04 20:00] VITALS: BP 126/69; PULSE 86; RESP 18
[2018-12-04] MEDS: QUETIAPINE 25 MG TAB PO SCH (20:52)
[2018-12-04] MEDS: ATORVASTATIN 80 MG TAB PO SCH (20:52)
--- NOTE | 2018-12-04 21:34 | CONS ---
Assessment/Plan Assessment/Plan Hospital Course (Demo Recall) No acute changes, looks comfortable, afebrile Bld cx + Staph CXR noted Abx: Vanco Diflucan Physical examination: Well-developed elderly man who is in no distress head atraumatic normocephalic neck is supple chest rise symmetrical breath sounds CTA heart S1-S2, abdomen soft bowel sounds present extremities with left foot dressing intact Assessment: 1. Bacteremia, cw contaminant 2. UTI per ua 3. Status post cardiac arrest/non-ST elevation [place] 4. Status post acute respiratory failure, possibly aspirated 5. Peripheral arterial disease status post left femoral to posterior tibial bypass 11/08/18 6. Diabetes 7. History of left foot second toe amputation Plan: Clinically stable, dc Vanco, continue Diflucan, f/u urine cx Consultation Date/Type/Reason Admit Date/Time Nov 04, 2018 at 07:34 Initial Consult Date Type of Consult id Requesting Provider: KARL WOOD MD Date/Time of Note DATE: 12/04/18 TIME: 21:29 Exam/Review of Systems Exam Vitals Vital Signs Date Temp Pulse Resp B/P (MAP) Pulse Ox O2 O2 Flow FiO2 Time Delivery Rate 12/04/18 97.4 86 18 126/69 98 20:00 (88) 12/02/18 Room Air 20:00 Intake and Output 12/03/18 12/03/18 12/04/18 1515:00 23:00 07:00 IntakeIntake Total 500 ml 1300 ml 700 ml OutputOutput Total 175 ml 400 ml BalanceBalance 325 ml 900 ml 700 ml Results Result Diagram: 12/04/18 0559 12/04/18 0951 Results 24hrs Laboratory Tests Test 12/04/18 03:04 12/04/18 05:59 12/04/18 07:58 12/04/18 09:51 Bedside Glucose 141 131 White Blood Count 4.5 L Red Blood Count 3.69 L Hemoglobin 11.2 L Hematocrit 34.6 L Mean Corpuscular 93.8 Volume Mean Corpuscular 30.4 Hemoglobin Mean Corpuscular 32.4 Hemoglobin Concent Red Cell 13.7 Distribution Width Platelet Count 198 Mean Platelet Volume 11.0 H Immature 0.400 Granulocytes % Neutrophils % 43.3 Lymphocytes % 35.7 Monocytes % 12.1 H Eosinophils % 7.4 H Basophils % 1.1 Nucleated Red Blood 0.0 Cells % Immature 0.020 Granulocytes # Neutrophils # 1.9 Lymphocytes # 1.6 Monocytes # 0.5 Eosinophils # 0.3 Basophils # 0.1 Nucleated Red Blood 0.0 Cells # Sodium Level 140 Potassium Level 5.3 H 4.8 Chloride Level 105 Carbon Dioxide Level 30 Anion Gap 5 Blood Urea Nitrogen 19 Creatinine 0.93 Est Glomerular Filtrat Rate mL/min Glucose Level 126 Calcium Level 9.0 Phosphorus Level 3.4 Magnesium Level 1.8 Test 12/04/18 11:37 12/04/18 17:02 12/04/18 20:51 Bedside Glucose 213 243 H 150 Medications Medication Current Medications Ergocalciferol (Drisdol) 50,000 unit Sa PO Last administered on 11/30/18at 08:00; Admin Dose 50,000 UNIT; Start 11/09/18 at 09:00 Miscellaneous Medication (Bystolic) 20 mg DAILY PO Last administered on 11/11/18 09:03; Admin Dose 20 MG; Start 11/04/18 at 09:00; Status Hold Clonidine (Catapres) 0.1 mg Q6H PRN PO SBP>160 Last administered on 11/19/18at 03:04; Admin Dose 0.1 MG; Start 11/04/18 at 09:00 IV Flush (NS 3 ml) 3 ml PER PROTOCOL IV ; Start 11/04/18 at 09:00 Ondansetron HCl (Zofran Inj) 4 mg Q6H PRN IV NAUSEA/VOMITING; Start 11/04/18 at 09:00 Acetaminophen (Tylenol Tab) 650 mg Q6H PRN PO .PAIN 1-3 OR TEMP Last administered on 12/02/18at 09:57; Admin Dose 650 MG; Start 11/04/18 at 09:00 Miscellaneous Information 1 ea NOTE XX ; Start 11/04/18 at 09:00 Glucose (Glutose) 15 gm Q15M PRN PO DECREASED GLUCOSE; Start 11/04/18 at 09:00 Glucose (Glutose) 22.5 gm Q15M PRN PO DECREASED GLUCOSE; Start 11/04/18 at 09:00 Dextrose (D50w Syringe) 25 ml Q15M PRN IV DECREASED GLUCOSE; Start 11/04/18 at 09:00 Dextrose (D50w Syringe) 50 ml Q15M PRN IV DECREASED GLUCOSE; Start 11/04/18 at 09:00 Glucagon (Glucagen) 1 mg Q15M PRN IM DECREASED GLUCOSE; Start 11/04/18 at 09:00 Glucose (Glutose) 15 gm Q15M PRN BUCCAL DECREASED GLUCOSE; Start 11/04/18 at 09:00 Miscellaneous Information Patients own medicat... BID@10,16 XX Last administered on 11/20/18 16:16; Admin Dose 1 EA; Start 11/04/18 at 16:00 Sodium Hypochlorite (Dakins Diluted ()) 1 applic BID TP Last administered on 12/04/18 20:53; Admin Dose 1 APPLIC; Start 11/07/18 at 09:00 Hydralazine HCl (Apresoline) 10 mg Q4H PRN IV sbp >160 Last administered on 11/20/18 14:44; Admin Dose 10 MG; Start 11/08/18 at 09:00 Atropine Sulfate (Atropine) 0.5 mg PRN PRN IV SYMPTOMATIC BRADYCARDIA; Start 11/11/18 at 23:00 Heparin Sodium (Porcine) (Heparin (5000 Units/1ml)) 5,000 unit BID SC Last administered on 12/04/18 20:55; Admin Dose 5,000 UNIT; Start 11/14/18 at 21:00 Bisacodyl (Dulcolax Supp) 10 mg DAILY PRN [place] CONSTIPATION Last administered on 11/14/18at 16:43; Admin Dose 10 MG; Start 11/14/18 at 16:30 IV Flush (NS 10 ml) 10 ml PRN PRN IV FLUSH LINE; Start 11/15/18 at 15:30 Gabapentin (Neurontin Liquid) 300 mg BID PO Last administered on 12/04/18at 20:52; Admin Dose 300 MG; Start 11/18/18 at 21:00 Diagnostic Test (Pha) (Accu-Chek) 1 ea 02 XX Last administered on 12/04/18at 02:00; Admin Dose 1 EA; Start 11/20/18 at 02:00 Ascorbic Acid (Vitamin C) 500 mg DAILY PO Last administered on 12/04/18 08:04; Admin Dose 500 MG; Start 11/20/18 at 09:00 Zinc Sulfate (Zinc Sulfate) 220 mg DAILY PO Last administered on 7/17/19at 08:04; Admin Dose 220 MG; Start 11/20/18 at 09:00 Atorvastatin Calcium (Lipitor) 80 mg QHS PO Last administered on 12/04/18 20:52; Admin Dose 80 MG; Start 11/19/18 at 21:00 Insulin Glargine (Lantus) 25 units DAILY@0800 SC Last administered on 12/04/18 08:00; Admin Dose 25 UNITS; Start 11/22/18 at 08:00 Lorazepam (Ativan) 0.5 mg Q6H PRN IV anxiety/agitation Last administered on 11/22/18 19:32; Admin Dose 0.5 MG; Start 11/22/18 at 11:00 Clopidogrel Bisulfate (plaVIX) 75 mg DAILY PO Last administered on 12/04/18 08:05; Admin Dose 75 MG; Start 11/23/18 at 09:00 Haloperidol (Haldol) 5 mg Q12H PRN IM agitation Last administered on 11/22/18 19:44; Admin Dose 5 MG; Start 11/22/18 at 14:30 Quetiapine Fumarate (Seroquel) 25 mg QHS PO Last administered on 12/04/18 20:52; Admin Dose 25 MG; Start 11/26/18 at 21:00 Hydralazine HCl (Apresoline) 25 mg TID PO Last administered on 11/28/18at 21:08; Admin Dose 25 MG; Start 11/28/18 at 13:00; Status Hold Polyethylene Glycol (Miralax) 17 gm DAILY PRN PO constipation; Start 11/29/18 at 08:02 Aspirin (Aspirin) 81 mg DAILY PO Last administered on 12/04/18at 08:04; Admin Dose 81 MG; Start 11/29/18 at 09:00 Famotidine (Pepcid) 20 mg DAILY PO Last administered on 12/04/18at 08:04; Admin Dose 20 MG; Start 11/29/18 at 09:00 Senna/Docusate Sodium (Senokot-S) 1 tab BID PRN PO constipation; Start 11/29/18 at 08:30 Insulin Aspart (Novolog Insulin Pen) 4 unit WITH MEALS SC Last administered on 12/04/18 17:04; Admin Dose 4 UNIT; Start 12/02/18 at 17:35 Insulin Aspart (Novolog Insulin Pen) NOVOLOG *MILD* ALGORITHM WITH MEALS BEDTIME SC Last administered on 12/04/18at 17:06; Admin Dose 3 UNIT; Start 12/02/18 at 18:05 Lisinopril (Zestril) 2.5 mg DAILY PO Last administered on 12/04/18at 08:05; Admin Dose 2.5 MG; Start 12/03/18 at 09:00 Vancomycin HCl (Vanco Iv Per Pharmacy) VANCOMYCIN PER PHARMACY PER PROTOCOL XX ; Start 12/03/18 at 14:30 Fluconazole/ Sodium Chloride 50 ml @ 50 mls/hr Q24H IVPB Last administered on 12/04/18at 15:59; Admin Dose 50 MLS/HR; Start 12/03/18 at 15:30 Vancomycin HCl 250 ml @ 125 mls/hr Q12H IVPB Last administered on 12/04/18at 15:59; Admin Dose 125 MLS/HR; Start 12/04/18 at 04:00 Miscellaneous Information (*Rx Drug Level Order Reminder*) VANCOMYCIN TROUGH AT 1,400 1500 ONCE XX ; Start 12/05/18 at 15:00; Stop 12/05/18 at 15:01 Furosemide (Lasix) 20 mg DAILY@0600 PO Last administered on 12/04/18at 11:39; Admin Dose 20 MG; Start 12/04/18 at 10:30 HERRERA MURILLO NP Dec 04, 2018 21:34
[2018-12-05] MEDS: ACCU-CHEK XX SCH (01:31)
[2018-12-05 02:00] VITALS: BP 129/67; PULSE 93; RESP 17
[2018-12-05] MEDS: VANCOMYCIN 1 GM 250 ML IVPB SCH (03:26)
[2018-12-05] MEDS: FUROSEMIDE 20 MG TAB PO SCH (05:37)
[2018-12-05 08:00] VITALS: BP 119/62; PULSE 88; RESP 16
[2018-12-05] MEDS ORDERED: MAGNESIUM SULFATE 2 GM/50 ML 50 ML IVPB ONE (08:00)
[2018-12-05] MEDS: INSULIN ASPART [NOVOLOG] 3 ML PEN SC SCH ×7 (08:06→21:10)
[2018-12-05] MEDS: INSULIN GLARGINE [LANTus] (100 UNITS/ML) SYG SC SCH (08:07)
[2018-12-05] MEDS: CLOPIDOGREL 75 MG TAB PO SCH (08:46)
[2018-12-05] MEDS: FAMOTIDINE 20 MG TAB PO SCH (08:46)
[2018-12-05] MEDS: ZINC SULFATE 220 MG CAP PO SCH (08:46)
[2018-12-05] MEDS: ASPIRIN 81 MG TAB PO SCH (08:46)
[2018-12-05] MEDS: ASCORBIC ACID 500 MG TAB PO SCH (08:46)
[2018-12-05] MEDS: LISINOPRIL 5 MG TAB PO SCH (08:47)
[2018-12-05] MEDS: GABAPENTIN (50 MG/ML PO SYG) PO SCH ×2 (08:47→21:08)
[2018-12-05] MEDS: HEPARIN 5,000 UNIT/1 ML VIAL SC SCH ×2 (08:48→21:09)
[2018-12-05] MEDS: DAKINS 0.0125%(1/40) 473 ML SOLUTION TP SCH ×2 (08:52→21:11)
--- NOTE | 2018-12-05 11:49 | PN ---
Date/Time of Note Date/Time of Note DATE: 12/05/18 TIME: 11:46 Objective Vitals Vital Signs Date Temp Pulse Resp B/P (MAP) Pulse Ox O2 O2 Flow FiO2 Time Delivery Rate 12/05/18 97.7 88 16 119/62 99 08:00 (81) 12/02/18 Room Air 20:00 Intake and Output 12/04/18 12/04/18 12/05/18 1515:00 23:00 07:00 IntakeIntake Total 2100 ml 250 ml OutputOutput Total 0 ml BalanceBalance 2100 ml 250 ml Results Result Diagram: 12/05/18 0536 12/05/18 0535 Medications Medications Current Medications Ergocalciferol (Drisdol) 50,000 unit Sa PO Last administered on 11/30/18at 08:00; Admin Dose 50,000 UNIT; Start 11/09/18 at 09:00 Miscellaneous Medication (Bystolic) 20 mg DAILY PO Last administered on 11/11/18at 09:03; Admin Dose 20 MG; Start 11/04/18 at 09:00; Status Hold Clonidine (Catapres) 0.1 mg Q6H PRN PO SBP>160 Last administered on 11/19/18at 03:04; Admin Dose 0.1 MG; Start 11/04/18 at 09:00 IV Flush (NS 3 ml) 3 ml PER PROTOCOL IV ; Start 11/04/18 at 09:00 Ondansetron HCl (Zofran Inj) 4 mg Q6H PRN IV NAUSEA/VOMITING; Start 11/04/18 at 09:00 Acetaminophen (Tylenol Tab) 650 mg Q6H PRN PO .PAIN 1-3 OR TEMP Last administered on 12/02/18at 09:57; Admin Dose 650 MG; Start 11/04/18 at 09:00 Miscellaneous Information 1 ea NOTE XX ; Start 11/04/18 at 09:00 Glucose (Glutose) 15 gm Q15M PRN PO DECREASED GLUCOSE; Start 11/04/18 at 09:00 Glucose (Glutose) 22.5 gm Q15M PRN PO DECREASED GLUCOSE; Start 11/04/18 at 09:00 Dextrose (D50w Syringe) 25 ml Q15M PRN IV DECREASED GLUCOSE; Start 11/04/18 at 09:00 Dextrose (D50w Syringe) 50 ml Q15M PRN IV DECREASED GLUCOSE; Start 11/04/18 at 09:00 Glucagon (Glucagen) 1 mg Q15M PRN IM DECREASED GLUCOSE; Start 11/04/18 at 09:00 Glucose (Glutose) 15 gm Q15M PRN BUCCAL DECREASED GLUCOSE; Start 11/04/18 at 09:00 Miscellaneous Information Patients own medicat... BID@10,16 XX Last administered on 11/20/18 16:16; Admin Dose 1 EA; Start 11/04/18 at 16:00 Sodium Hypochlorite (Dakins Diluted ()) 1 applic BID TP Last administered on 12/05/18 08:52; Admin Dose 1 APPLIC; Start 11/07/18 at 09:00 Hydralazine HCl (Apresoline) 10 mg Q4H PRN IV sbp >160 Last administered on 11/20/18 14:44; Admin Dose 10 MG; Start 11/08/18 at 09:00 Atropine Sulfate (Atropine) 0.5 mg PRN PRN IV SYMPTOMATIC BRADYCARDIA; Start 11/11/18 at 23:00 Heparin Sodium (Porcine) (Heparin (5000 Units/1ml)) 5,000 unit BID SC Last administered on 12/05/18 08:48; Admin Dose 5,000 UNIT; Start 11/14/18 at 21:00 Bisacodyl (Dulcolax Supp) 10 mg DAILY PRN [place] CONSTIPATION Last administered on 11/14/18 16:43; Admin Dose 10 MG; Start 11/14/18 at 16:30 IV Flush (NS 10 ml) 10 ml PRN PRN IV FLUSH LINE; Start 11/15/18 at 15:30 Gabapentin (Neurontin Liquid) 300 mg BID PO Last administered on 12/05/18 08:47; Admin Dose 300 MG; Start 11/18/18 at 21:00 Diagnostic Test (Pha) (Accu-Chek) 1 ea 02 XX Last administered on 12/04/18at 02:00; Admin Dose 1 EA; Start 11/20/18 at 02:00 Ascorbic Acid (Vitamin C) 500 mg DAILY PO Last administered on 12/05/18 08:46; Admin Dose 500 MG; Start 11/20/18 at 09:00 Zinc Sulfate (Zinc Sulfate) 220 mg DAILY PO Last administered on 12/05/18 08:46; Admin Dose 220 MG; Start 11/20/18 at 09:00 Atorvastatin Calcium (Lipitor) 80 mg QHS PO Last administered on 12/04/18 20:52; Admin Dose 80 MG; Start 11/19/18 at 21:00 Insulin Glargine (Lantus) 25 units DAILY@0800 SC Last administered on 12/05/18 08:07; Admin Dose 25 UNITS; Start 11/22/18 at 08:00 Lorazepam (Ativan) 0.5 mg Q6H PRN IV anxiety/agitation Last administered on 11/22/18 19:32; Admin Dose 0.5 MG; Start 11/22/18 at 11:00 Clopidogrel Bisulfate (plaVIX) 75 mg DAILY PO Last administered on 12/05/18 08:46; Admin Dose 75 MG; Start 11/23/18 at 09:00 Haloperidol (Haldol) 5 mg Q12H PRN IM agitation Last administered on 11/22/18 19:44; Admin Dose 5 MG; Start 11/22/18 at 14:30 Quetiapine Fumarate (Seroquel) 25 mg QHS PO Last administered on 12/04/18 20:52; Admin Dose 25 MG; Start 11/26/18 at 21:00 Hydralazine HCl (Apresoline) 25 mg TID PO Last administered on 11/28/18 21:08; Admin Dose 25 MG; Start 11/28/18 at 13:00; Status Hold Polyethylene Glycol (Miralax) 17 gm DAILY PRN PO constipation; Start 11/29/18 at 08:02 Aspirin (Aspirin) 81 mg DAILY PO Last administered on 12/05/18 08:46; Admin Dose 81 MG; Start 11/29/18 at 09:00 Famotidine (Pepcid) 20 mg DAILY PO Last administered on 12/05/18 08:46; Admin Dose 20 MG; Start 11/29/18 at 09:00 Senna/Docusate Sodium (Senokot-S) 1 tab BID PRN PO constipation; Start 11/29/18 at 08:30 Insulin Aspart (Novolog Insulin Pen) 4 unit WITH MEALS SC Last administered on 12/05/18 08:06; Admin Dose 4 UNIT; Start 12/02/18 at 17:35 Insulin Aspart (Novolog Insulin Pen) NOVOLOG *MILD* ALGORITHM WITH MEALS BEDTIME SC Last administered on 12/05/18at 08:06; Admin Dose 2 UNIT; Start 12/02/18 at 18:05 Lisinopril (Zestril) 2.5 mg DAILY PO Last administered on 12/05/18at 08:47; Admin Dose 2.5 MG; Start 12/03/18 at 09:00 Fluconazole/ Sodium Chloride 50 ml @ 50 mls/hr Q24H IVPB Last administered on 12/04/18at 15:59; Admin Dose 50 MLS/HR; Start 12/03/18 at 15:30 Furosemide (Lasix) 20 mg DAILY@0600 PO Last administered on 12/05/18at 05:37; Admin Dose 20 MG; Start 12/04/18 at 10:30 VTE Pro[place]axis [place] [facility] [place]: 5 [place]CD [place] [facility] [place] Yes Lines/Catheters IV Catheter Type: Schneider in Place: No Assessment/Plan Hospital Course Subjective Patient doing well Objective Physical exam General: Patient is laying in bed responding to questions appropriately Mentation: Patient is alert and oriented Head: Normocephalic atraumatic Eyes: EOMI, pupils reactive to light Neck: Supple, nontender, midline Respiratory: Coarse to auscultation bilaterally Cardiovascular: regular rate, no obvious murmurs Gastrointestinal: non-tender to palpation, bowel sounds heard. Neurological: Moves all extremities spontaneously Skin: No new skin lesions, surgical site bandaged, CDI Assessment/Plan Questionable bacteremia -Questionable to bacteremia, infectious disease will be back on board -IV vancomycin held per infectious disease Fungal UTI -Add IV fluconazole -Infectious disease recommendations appreciated Drainage from surgical site and groin area -Wound VAC placed -Vascular surgery and wound care to reevaluate patient over the weekend, may need further intervention if draining does not subside Mild hypotension, resolved -Stop IV fluid, hold Lasix per cardiology recommendation Left fifth toe gangrenous ulcer s/p amputation- stable - ID on board and appreciate consultation. Completed course of antibiotics - Continue local wound care - Podiatry on board and appreciate consultation. no further procedures scheduled at this time Left frontal CVA - Neurology on board and appreciate recommendations - continue on aspirin and Plavix and statin left-sided internal carotid artery stenosis - 25% per CT angiogram, continue aspirin, statin, Plavix per vascular surgeon Acute hypoxic respiratory failure-resolved - doing well on room air - Pulmonology consultation appreciated Cardiac arrest s/p ROSC - Cardiology on board and appreciate recommendations - ECHO with preserved EF Severe peripheral vascular disease - s/p left femoral endarterectomy, iliofemoral bypass and femoral to posterior tibial bypass done on November 08, 2018 - Vascular surgery consultation appreciated. Continue aspirin and Plavix Diabetes Mellitus - A1c noted - continue lantus and ISS. adjust as needed Acute kidney injury- resolved - nephrology consultation appreciated Essential HTN - Continue home medications at this time as tolerated Peripheral neuropathy - cont. gabapentin HLD - On statin Chronic anemia - Stable H&H. Monitor - no need for transfusions at this time Urinary retention, resolved - Urology on board and appreciate recommendations. -patient doing well on voiding trial, no schneider acute delerium -resolved. Disposition -We will assess over the weekend per vascular and wound care recommendations as to how much drainage is coming from surgical site, if drainage from surgical site lessens patient will be able to go home with home health PT and wound VAC however if continues to be copious amounts may need further intervention. FRANTZ SCHWAB Dec 05, 2018 11:49
[2018-12-05 14:30] VITALS: BP 119/65; PULSE 95; RESP 16
[2018-12-05] MEDS: FLUCONAZOLE 100 MG/50 ML (PMX) 50 ML IVPB SCH (15:18)
--- NOTE | 2018-12-05 15:50 | CONS ---
Assessment/Plan Assessment/Plan Hospital Course (Demo Recall) No acute changes, awake, looks comfortable, afebrile Bld cx + Staph R groin cx + Staph Urine cx neg CXR noted Abx: Diflucan Physical examination: Well-developed elderly man who is in no distress head atraumatic normocephalic neck is supple chest rise symmetrical breath sounds CTA heart S1-S2, abdomen soft bowel sounds present extremities with left foot dressing intact Assessment: 1. Bacteremia, cw contaminant 2. UTI per ua==> neg cx 3. Status post cardiac arrest/non-ST elevation [place] 4. Status post acute respiratory failure, possibly aspirated 5. Peripheral arterial disease status post left femoral to posterior tibial bypass 11/08/18 6. Diabetes 7. History of left foot second toe amputation Plan: Clinically stable, dc Diflucan, start Doxycycline Consultation Date/Type/Reason Admit Date/Time Nov 04, 2018 at 07:34 Initial Consult Date Type of Consult id Requesting Provider: KARL WOOD MD Date/Time of Note DATE: 12/05/18 TIME: 15:49 Exam/Review of Systems Exam Vitals Vital Signs Date Temp Pulse Resp B/P (MAP) Pulse Ox O2 O2 Flow FiO2 Time Delivery Rate 12/05/18 97.7 95 16 119/65 96 14:30 (83) 12/02/18 Room Air 20:00 Intake and Output 12/04/18 12/04/18 12/05/18 1515:00 23:00 07:00 IntakeIntake Total 2100 ml 250 ml OutputOutput Total 0 ml BalanceBalance 2100 ml 250 ml Results Result Diagram: 12/05/18 0536 12/05/18 0535 Results 24hrs Laboratory Tests Test 12/04/18 17:02 12/04/18 20:51 12/05/18 05:35 12/05/18 05:36 Bedside Glucose 243 H 150 Sodium Level 135 Potassium Level 4.5 Chloride Level 99 Carbon Dioxide Level 29 Anion Gap 7 Blood Urea Nitrogen 16 Creatinine 0.99 Est Glomerular Filtrat Rate mL/min Glucose Level 167 Calcium Level 9.0 Phosphorus Level 3.1 Magnesium Level 1.6 L White Blood Count 5.2 Red Blood Count 3.67 L Hemoglobin 11.1 L Hematocrit 34.2 L Mean Corpuscular 93.2 Volume Mean Corpuscular 30.2 Hemoglobin Mean Corpuscular 32.5 Hemoglobin Concent Red Cell 13.6 Distribution Width Platelet Count 182 Mean Platelet Volume 11.2 H Immature 0.400 Granulocytes % Neutrophils % 43.6 Lymphocytes % 36.4 Monocytes % 11.4 H Eosinophils % 6.8 Basophils % 1.4 Nucleated Red Blood 0.0 Cells % Immature 0.020 Granulocytes # Neutrophils # 2.3 Lymphocytes # 1.9 Monocytes # 0.6 Eosinophils # 0.4 Basophils # 0.1 Nucleated Red Blood 0.0 Cells # Test 12/05/18 08:03 12/05/18 12:20 Bedside Glucose 182 196 Medications Medication Current Medications Ergocalciferol (Drisdol) 50,000 unit Sa PO Last administered on 11/30/18at 08 :00; Admin Dose 50,000 UNIT; Start 11/09/18 at 09:00 Miscellaneous Medication (Bystolic) 20 mg DAILY PO Last administered on 11/11/18at 09:03; Admin Dose 20 MG; Start 11/04/18 at 09:00; Status Hold Clonidine (Catapres) 0.1 mg Q6H PRN PO SBP>160 Last administered on 11/19/18at 03:04; Admin Dose 0.1 MG; Start 11/04/18 at 09:00 IV Flush (NS 3 ml) 3 ml PER PROTOCOL IV ; Start 11/04/18 at 09:00 Ondansetron HCl (Zofran Inj) 4 mg Q6H PRN IV NAUSEA/VOMITING; Start 11/04/18 at 09:00 Acetaminophen (Tylenol Tab) 650 mg Q6H PRN PO .PAIN 1-3 OR TEMP Last administered on 12/02/18at 09:57; Admin Dose 650 MG; Start 11/04/18 at 09:00 Miscellaneous Information 1 ea NOTE XX ; Start 11/04/18 at 09:00 Glucose (Glutose) 15 gm Q15M PRN PO DECREASED GLUCOSE; Start 11/04/18 at 09:00 Glucose (Glutose) 22.5 gm Q15M PRN PO DECREASED GLUCOSE; Start 11/04/18 at 09:00 Dextrose (D50w Syringe) 25 ml Q15M PRN IV DECREASED GLUCOSE; Start 11/04/18 at 09:00 Dextrose (D50w Syringe) 50 ml Q15M PRN IV DECREASED GLUCOSE; Start 11/04/18 at 09:00 Glucagon (Glucagen) 1 mg Q15M PRN IM DECREASED GLUCOSE; Start 11/04/18 at 09:00 Glucose (Glutose) 15 gm Q15M PRN BUCCAL DECREASED GLUCOSE; Start 11/04/18 at 09:00 Miscellaneous Information Patients own medicat... BID@10,16 XX Last administered on 11/20/18 16:16; Admin Dose 1 EA; Start 11/04/18 at 16:00 Sodium Hypochlorite (Dakins Diluted ()) 1 applic BID TP Last administered on 12/05/18 08:52; Admin Dose 1 APPLIC; Start 11/07/18 at 09:00 Hydralazine HCl (Apresoline) 10 mg Q4H PRN IV sbp >160 Last administered on 11/20/18 14:44; Admin Dose 10 MG; Start 11/08/18 at 09:00 Atropine Sulfate (Atropine) 0.5 mg PRN PRN IV SYMPTOMATIC BRADYCARDIA; Start 11/11/18 at 23:00 Heparin Sodium (Porcine) (Heparin (5000 Units/1ml)) 5,000 unit BID SC Last administered on 12/05/18 08:48; Admin Dose 5,000 UNIT; Start 11/14/18 at 21:00 Bisacodyl (Dulcolax Supp) 10 mg DAILY PRN [place] CONSTIPATION Last administered on 11/14/18 16:43; Admin Dose 10 MG; Start 11/14/18 at 16:30 IV Flush (NS 10 ml) 10 ml PRN PRN IV FLUSH LINE; Start 11/15/18 at 15:30 Gabapentin (Neurontin Liquid) 300 mg BID PO Last administered on 12/05/18 08:47; Admin Dose 300 MG; Start 11/18/18 at 21:00 Diagnostic Test (Pha) (Accu-Chek) 1 ea 02 XX Last administered on 12/04/18 02:00; Admin Dose 1 EA; Start 11/20/18 at 02:00 Ascorbic Acid (Vitamin C) 500 mg DAILY PO Last administered on 12/05/18 08:46; Admin Dose 500 MG; Start 11/20/18 at 09:00 Zinc Sulfate (Zinc Sulfate) 220 mg DAILY PO Last administered on 12/05/18 08:46; Admin Dose 220 MG; Start 11/20/18 at 09:00 Atorvastatin Calcium (Lipitor) 80 mg QHS PO Last administered on 12/04/18 20:52; Admin Dose 80 MG; Start 11/19/18 at 21:00 Insulin Glargine (Lantus) 25 units DAILY@0800 SC Last administered on 12/05/18 08:07; Admin Dose 25 UNITS; Start 11/22/18 at 08:00 Lorazepam (Ativan) 0.5 mg Q6H PRN IV anxiety/agitation Last administered on 11/22/18 19:32; Admin Dose 0.5 MG; Start 11/22/18 at 11:00 Clopidogrel Bisulfate (plaVIX) 75 mg DAILY PO Last administered on 12/05/18 08:46; Admin Dose 75 MG; Start 11/23/18 at 09:00 Haloperidol (Haldol) 5 mg Q12H PRN IM agitation Last administered on 11/22/18 19:44; Admin Dose 5 MG; Start 11/22/18 at 14:30 Quetiapine Fumarate (Seroquel) 25 mg QHS PO Last administered on 12/04/18 20:52; Admin Dose 25 MG; Start 11/26/18 at 21:00 Hydralazine HCl (Apresoline) 25 mg TID PO Last administered on 11/28/18 21:08; Admin Dose 25 MG; Start 11/28/18 at 13:00; Status Hold Polyethylene Glycol (Miralax) 17 gm DAILY PRN PO constipation; Start 11/29/18 at 08:02 Aspirin (Aspirin) 81 mg DAILY PO Last administered on 12/05/18 08:46; Admin Dose 81 MG; Start 11/29/18 at 09:00 Famotidine (Pepcid) 20 mg DAILY PO Last administered on 12/05/18 08:46; Admin Dose 20 MG; Start 11/29/18 at 09:00 Senna/Docusate Sodium (Senokot-S) 1 tab BID PRN PO constipation; Start 11/29/18 at 08:30 Insulin Aspart (Novolog Insulin Pen) 4 unit WITH MEALS SC Last administered on 12/05/18at 12:24; Admin Dose 4 UNIT; Start 12/02/18 at 17:35 Insulin Aspart (Novolog Insulin Pen) NOVOLOG *MILD* ALGORITHM WITH MEALS BEDTIME SC Last administered on 12/05/18at 12:24; Admin Dose 2 UNIT; Start 12/02/18 at 18:05 Lisinopril (Zestril) 2.5 mg DAILY PO Last administered on 12/05/18at 08:47; Admin Dose 2.5 MG; Start 12/03/18 at 09:00 Fluconazole/ Sodium Chloride 50 ml @ 50 mls/hr Q24H IVPB Last administered on 12/05/18at 15:18; Admin Dose 50 MLS/HR; Start 12/03/18 at 15:30 Furosemide (Lasix) 20 mg DAILY@0600 PO Last administered on 12/05/18at 05:37; Admin Dose 20 MG; Start 12/04/18 at 10:30 HERRERA MURILLO NP Dec 05, 2018 15:50
[2018-12-05] MEDS: ACETAMINOPHEN 325 MG TAB PO PRN (17:11)
--- NOTE | 2018-12-05 18:22 | CONS ---
Assessment/Plan Assessment/Plan Hospital Course (Demo Recall) IMPRESSION: 1. Preoperative evaluation prior to possible need for peripheral revascularization surgery.-neg trop x 3 and NL EF by echo with no sig valve abnl. Echo repeat 11/13 with NL EF 2. Peripheral arterial disease with nonhealing gangrenous changes in left toe ulceration. 3. Hypertension-today with holding of ACEI and borderline hypotension 4. Dyslipidemia. 5. Diabetes mellitus. 6. s/p cardiopulmonary arrest 7. Bradycardic intermittent by tele 8. Positive troponin after arrest-? secondary to or primary to arrest, likely secondary to arrest, type 2 demand infarct, as no signifcant uptrend and now downtrended to negative 9. Resp failure-s/p extubation 10. CVA-Acute by MRI Recc: -Now on med-surg -Continue asa/plavix/statin -serial ecg's -s/p course of abx's -local wound care -heparin was d/c'd secondary to anemia requiring transfusions -follow volume status closely now back on daily lasix -follow MS closely with ongoing neuro eval for CVA -Continue now zestril mononotherapy at reduced dose Consultation Date/Type/Reason Admit Date/Time Nov 04, 2018 at 07:34 Initial Consult Date 11/06/18 Type of Consult Cardiology Reason for Consultation HTN Requesting Provider: KARL WOOD MD Date/Time of Note DATE: 12/05/18 TIME: 18:21 Exam/Review of Systems Vital Signs Vitals Vital Signs Date Temp Pulse Resp B/P (MAP) Pulse Ox O2 O2 Flow FiO2 Time Delivery Rate 12/05/18 97.7 95 16 119/65 96 14:30 (83) 12/02/18 Room Air 20:00 Intake and Output 12/04/18 12/04/18 12/05/18 1515:00 23:00 07:00 IntakeIntake Total 2100 ml 250 ml OutputOutput Total 0 ml BalanceBalance 2100 ml 250 ml Exam Exam Review of Systems: CONSTITUTIONAL: No fevers, chills. PULMONARY: No sob CARDIOVASCULAR: No chest pain/palpitations GASTROINTESTINAL: No nausea/vomiting. GENITOURINARY: No hematuria/dysuria. MUSCULOSKELETAL: No myagias/arthalgias. PSYCHIATRIC: The patient denies depression. NEUROLOGIC: No weakness Constitutional: alert Psych: no complaints Head: normocephalic ENMT: mucosa pink and moist Neck: supple, jvd (8 cm water) Respiratory: clear to auscultation Cardiovascular: regular rate and rhythm Gastrointestinal: soft, non-tender Musculoskeletal: muscle tone (normal) Extremities: edema (LLE with edema and foot covered by dressing) Neurological: other (No focal deficits) Labs Result Diagram: 12/05/18 0536 12/05/18 0535 Results 24hrs Laboratory Tests Test 12/04/18 20:51 12/05/18 05:35 12/05/18 05:36 12/05/18 08:03 Bedside Glucose 150 182 Sodium Level 135 Potassium Level 4.5 Chloride Level 99 Carbon Dioxide Level 29 Anion Gap 7 Blood Urea Nitrogen 16 Creatinine 0.99 Est Glomerular Filtrat Rate mL/min Glucose Level 167 Calcium Level 9.0 Phosphorus Level 3.1 Magnesium Level 1.6 L White Blood Count 5.2 Red Blood Count 3.67 L Hemoglobin 11.1 L Hematocrit 34.2 L Mean Corpuscular 93.2 Volume Mean Corpuscular 30.2 Hemoglobin Mean Corpuscular 32.5 Hemoglobin Concent Red Cell 13.6 Distribution Width Platelet Count 182 Mean Platelet Volume 11.2 H Immature 0.400 Granulocytes % Neutrophils % 43.6 Lymphocytes % 36.4 Monocytes % 11.4 H Eosinophils % 6.8 Basophils % 1.4 Nucleated Red Blood 0.0 Cells % Immature 0.020 Granulocytes # Neutrophils # 2.3 Lymphocytes # 1.9 Monocytes # 0.6 Eosinophils # 0.4 Basophils # 0.1 Nucleated Red Blood 0.0 Cells # Test 12/05/18 12:20 12/05/18 17:33 Bedside Glucose 196 282 H Medications Medications Current Medications Ergocalciferol (Drisdol) 50,000 unit Sa PO Last administered on 11/30/18at 08:00; Admin Dose 50,000 UNIT; Start 11/09/18 at 09:00 Miscellaneous Medication (Bystolic) 20 mg DAILY PO Last administered on 11/11/18 at 09:03; Admin Dose 20 MG; Start 11/04/18 at 09:00; Status Hold Clonidine (Catapres) 0.1 mg Q6H PRN PO SBP>160 Last administered on 11/19/18at 03:04; Admin Dose 0.1 MG; Start 11/04/18 at 09:00 IV Flush (NS 3 ml) 3 ml PER PROTOCOL IV ; Start 11/04/18 at 09:00 Ondansetron HCl (Zofran Inj) 4 mg Q6H PRN IV NAUSEA/VOMITING; Start 11/04/18 at 09:00 Acetaminophen (Tylenol Tab) 650 mg Q6H PRN PO .PAIN 1-3 OR TEMP Last administered on 12/05/18at 17:11; Admin Dose 650 MG; Start 11/04/18 at 09:00 Miscellaneous Information 1 ea NOTE XX ; Start 11/04/18 at 09:00 Glucose (Glutose) 15 gm Q15M PRN PO DECREASED GLUCOSE; Start 11/04/18 at 09:00 Glucose (Glutose) 22.5 gm Q15M PRN PO DECREASED GLUCOSE; Start 11/04/18 at 09:00 Dextrose (D50w Syringe) 25 ml Q15M PRN IV DECREASED GLUCOSE; Start 11/04/18 at 09:00 Dextrose (D50w Syringe) 50 ml Q15M PRN IV DECREASED GLUCOSE; Start 11/04/18 at 09:00 Glucagon (Glucagen) 1 mg Q15M PRN IM DECREASED GLUCOSE; Start 11/04/18 at 09:00 Glucose (Glutose) 15 gm Q15M PRN BUCCAL DECREASED GLUCOSE; Start 11/04/18 at 09:00 Miscellaneous Information Patients own medicat... BID@10,16 XX Last administered on 11/20/18at 16:16; Admin Dose 1 EA; Start 11/04/18 at 16:00 Sodium Hypochlorite (Dakins Diluted (40)) 1 applic BID TP Last administered on 12/05/18at 08:52; Admin Dose 1 APPLIC; Start 11/07/18 at 09:00 Hydralazine HCl (Apresoline) 10 mg Q4H PRN IV sbp >160 Last administered on 11/20/18 14:44; Admin Dose 10 MG; Start 11/08/18 at 09:00 Atropine Sulfate (Atropine) 0.5 mg PRN PRN IV SYMPTOMATIC BRADYCARDIA; Start 11/11/18 at 23:00 Heparin Sodium (Porcine) (Heparin (5000 Units/1ml)) 5,000 unit BID SC Last administered on 12/05/18at 08:48; Admin Dose 5,000 UNIT; Start 11/14/18 at 21:00 Bisacodyl (Dulcolax Supp) 10 mg DAILY PRN [place] CONSTIPATION Last administered on 11/14/18at 16:43; Admin Dose 10 MG; Start 11/14/18 at 16:30 IV Flush (NS 10 ml) 10 ml PRN PRN IV FLUSH LINE; Start 11/15/18 at 15:30 Gabapentin (Neurontin Liquid) 300 mg BID PO Last administered on 12/05/18 08:47; Admin Dose 300 MG; Start 11/18/18 at 21:00 Diagnostic Test (Pha) (Accu-Chek) 1 ea 02 XX Last administered on 12/04/18 02:00; Admin Dose 1 EA; Start 11/20/18 at 02:00 Ascorbic Acid (Vitamin C) 500 mg DAILY PO Last administered on 12/05/18 08:46; Admin Dose 500 MG; Start 11/20/18 at 09:00 Zinc Sulfate (Zinc Sulfate) 220 mg DAILY PO Last administered on 12/05/18 08:46; Admin Dose 220 MG; Start 11/20/18 at 09:00 Atorvastatin Calcium (Lipitor) 80 mg QHS PO Last administered on 12/04/18 20:52; Admin Dose 80 MG; Start 11/19/18 at 21:00 Insulin Glargine (Lantus) 25 units DAILY@0800 SC Last administered on 12/05/18 08:07; Admin Dose 25 UNITS; Start 11/22/18 at 08:00 Lorazepam (Ativan) 0.5 mg Q6H PRN IV anxiety/agitation Last administered on 11/22/18 19:32; Admin Dose 0.5 MG; Start 11/22/18 at 11:00 Clopidogrel Bisulfate (plaVIX) 75 mg DAILY PO Last administered on 12/05/18 08:46; Admin Dose 75 MG; Start 11/23/18 at 09:00 Haloperidol (Haldol) 5 mg Q12H PRN IM agitation Last administered on 11/22/18 19:44; Admin Dose 5 MG; Start 11/22/18 at 14:30 Quetiapine Fumarate (Seroquel) 25 mg QHS PO Last administered on 12/04/18 20:52; Admin Dose 25 MG; Start 11/26/18 at 21:00 Hydralazine HCl (Apresoline) 25 mg TID PO Last administered on 11/28/18 21:08; Admin Dose 25 MG; Start 11/28/18 at 13:00; Status Hold Polyethylene Glycol (Miralax) 17 gm DAILY PRN PO constipation; Start 11/29/18 at 08:02 Aspirin (Aspirin) 81 mg DAILY PO Last administered on 12/05/18at 08:46; Admin Dose 81 MG; Start 11/29/18 at 09:00 Famotidine (Pepcid) 20 mg DAILY PO Last administered on 12/05/18at 08:46; Admin Dose 20 MG; Start 11/29/18 at 09:00 Senna/Docusate Sodium (Senokot-S) 1 tab BID PRN PO constipation; Start 11/29/18 at 08:30 Insulin Aspart (Novolog Insulin Pen) 4 unit WITH MEALS SC Last administered on 12/05/18at 17:37; Admin Dose 4 UNIT; Start 12/02/18 at 17:35 Insulin Aspart (Novolog Insulin Pen) NOVOLOG *MILD* ALGORITHM WITH MEALS BEDTIME SC Last administered on 12/05/18at 17:36; Admin Dose 4 UNIT; Start 12/02/18 at 18:05 Lisinopril (Zestril) 2.5 mg DAILY PO Last administered on 12/05/18 08:47; Admin Dose 2.5 MG; Start 12/03/18 at 09:00 Fluconazole/ Sodium Chloride 50 ml @ 50 mls/hr Q24H IVPB Last administered on 12/05/18at 15:18; Admin Dose 50 MLS/HR; Start 12/03/18 at 15:30 Furosemide (Lasix) 20 mg DAILY@0600 PO Last administered on 12/05/18at 05:37; Admin Dose 20 MG; Start 12/04/18 at 10:30 Doxycycline Hyclate (Vibramycin) 100 mg BID PO ; Start 12/05/18 at 21:00 KLEVER HUNT 18, 2019 18:22
[2018-12-05 20:50] VITALS: BP 126/74; PULSE 87; RESP 18
[2018-12-05] MEDS: DOXYCYCLINE 100 MG TAB PO SCH (21:08)
[2018-12-05] MEDS: QUETIAPINE 25 MG TAB PO SCH (21:08)
[2018-12-05] MEDS: ATORVASTATIN 80 MG TAB PO SCH (21:08)
[2018-12-06] MEDS: ACCU-CHEK XX SCH (01:13)
[2018-12-06 02:15] VITALS: BP 137/75; PULSE 84; RESP 18
[2018-12-06] MEDS: FUROSEMIDE 20 MG TAB PO SCH (06:11)
[2018-12-06 07:55] VITALS: BP 112/65; PULSE 87; RESP 16
[2018-12-06] MEDS: INSULIN ASPART [NOVOLOG] 3 ML PEN SC SCH ×7 (08:06→20:32)
[2018-12-06] MEDS: INSULIN GLARGINE [LANTus] (100 UNITS/ML) SYG SC SCH (08:07)
[2018-12-06] MEDS: LISINOPRIL 5 MG TAB PO SCH (08:43)
[2018-12-06] MEDS: FAMOTIDINE 20 MG TAB PO SCH (08:43)
[2018-12-06] MEDS: ASCORBIC ACID 500 MG TAB PO SCH (08:43)
[2018-12-06] MEDS: CLOPIDOGREL 75 MG TAB PO SCH (08:44)
[2018-12-06] MEDS: DOXYCYCLINE 100 MG TAB PO SCH (08:44)
[2018-12-06] MEDS: ZINC SULFATE 220 MG CAP PO SCH (08:44)
[2018-12-06] MEDS: HEPARIN 5,000 UNIT/1 ML VIAL SC SCH ×2 (08:44→20:22)
--- NOTE | 2018-12-06 08:47 | PN ---
Date/Time of Note Date/Time of Note DATE: 12/06/18 TIME: 08:42 Assessment/Plan Lines/Catheters IV Catheter Type (from [facility]): Saline Lock Vora in Place (from [facility]): No Assessment/Plan Assessment/Plan Doing well s/p L ilio-femoral and fem-PT bypass Amputation site is well healed Serous drainage from the left groin - appears to be lymphatic leak, continue VAC No fever, nl WBC and bld cx 1/2 bottles with Staph Epi, likely contaminant Continue VAC, awaiting culture of left groin drainage, on PO doxycycline Subjective 24 Hr Interval Summary No c/o. Ambulating without any problems. Exam/Review of Systems Vital Signs Vitals Vital Signs Date Temp Pulse Resp B/P (MAP) Pulse Ox O2 O2 Flow FiO2 Time Delivery Rate 12/06/18 97.5 87 16 112/65 98 Room Air 07:55 (81) Intake and Output 12/05/18 12/05/18 12/06/18 1515:00 23:00 07:00 IntakeIntake Total 50 ml 770 ml 1480 ml OutputOutput Total 0 ml 50 ml BalanceBalance 50 ml 770 ml 1430 ml Exam Free Text/Dictation L groin small opening with serous drainage, VAC in place with good seal, minimal drainage, no erythema The rest of the L leg incisions are all well healed and the toe amputation site is well healed, 2+ graft and PT pulses Results Result Diagram: 12/06/18 0541 12/06/18 0541 KLEVER FOREMAN MD Dec 06, 2018 08:47
[2018-12-06] MEDS: DAKINS 0.0125%(1/40) 473 ML SOLUTION TP SCH ×2 (08:50→21:31)
[2018-12-06] MEDS: ASPIRIN 81 MG TAB PO SCH (09:32)
[2018-12-06] MEDS: GABAPENTIN (50 MG/ML PO SYG) PO SCH ×2 (09:32→20:21)
--- NOTE | 2018-12-06 10:21 | PN ---
Date/Time of Note Date/Time of Note DATE: 12/06/18 TIME: 10:18 Objective Vitals Vital Signs Date Temp Pulse Resp B/P (MAP) Pulse Ox O2 O2 Flow FiO2 Time Delivery Rate 12/06/18 97.5 87 16 112/65 98 Room Air 07:55 (81) Intake and Output 12/05/18 12/05/18 12/06/18 1515:00 23:00 07:00 IntakeIntake Total 50 ml 770 ml 1480 ml OutputOutput Total 0 ml 50 ml BalanceBalance 50 ml 770 ml 1430 ml Results Result Diagram: 12/06/18 0541 12/06/18 0541 Medications Medications Current Medications Ergocalciferol (Drisdol) 50,000 unit Sa PO Last administered on 11/30/18at 08:00; Admin Dose 50,000 UNIT; Start 11/09/18 at 09:00 Miscellaneous Medication (Bystolic) 20 mg DAILY PO Last administered on 11/11/18at 09:03; Admin Dose 20 MG; Start 11/04/18 at 09:00; Status Hold Clonidine (Catapres) 0.1 mg Q6H PRN PO SBP>160 Last administered on 11/19/18at 03:04; Admin Dose 0.1 MG; Start 11/04/18 at 09:00 IV Flush (NS 3 ml) 3 ml PER PROTOCOL IV ; Start 11/04/18 at 09:00 Ondansetron HCl (Zofran Inj) 4 mg Q6H PRN IV NAUSEA/VOMITING; Start 11/04/18 at 09:00 Acetaminophen (Tylenol Tab) 650 mg Q6H PRN PO .PAIN 1-3 OR TEMP Last administered on 12/05/18at 17:11; Admin Dose 650 MG; Start 11/04/18 at 09:00 Miscellaneous Information 1 ea NOTE XX ; Start 11/04/18 at 09:00 Glucose (Glutose) 15 gm Q15M PRN PO DECREASED GLUCOSE; Start 11/04/18 at 09:00 Glucose (Glutose) 22.5 gm Q15M PRN PO DECREASED GLUCOSE; Start 11/04/18 at 09:00 Dextrose (D50w Syringe) 25 ml Q15M PRN IV DECREASED GLUCOSE; Start 11/04/18 at 09:00 Dextrose (D50w Syringe) 50 ml Q15M PRN IV DECREASED GLUCOSE; Start 11/04/18 at 09:00 Glucagon (Glucagen) 1 mg Q15M PRN IM DECREASED GLUCOSE; Start 11/04/18 at 09:00 Glucose (Glutose) 15 gm Q15M PRN BUCCAL DECREASED GLUCOSE; Start 11/04/18 at 09:00 Miscellaneous Information Patients own medicat... BID@10,16 XX Last administered on 11/20/18 16:16; Admin Dose 1 EA; Start 11/04/18 at 16:00 Sodium Hypochlorite (Dakins Diluted ()) 1 applic BID TP Last administered on 12/06/18 08:50; Admin Dose 1 APPLIC; Start 11/07/18 at 09:00 Hydralazine HCl (Apresoline) 10 mg Q4H PRN IV sbp >160 Last administered on 11/20/18 14:44; Admin Dose 10 MG; Start 11/08/18 at 09:00 Atropine Sulfate (Atropine) 0.5 mg PRN PRN IV SYMPTOMATIC BRADYCARDIA; Start 11/11/18 at 23:00 Heparin Sodium (Porcine) (Heparin (5000 Units/1ml)) 5,000 unit BID SC Last administered on 12/06/18 08:44; Admin Dose 5,000 UNIT; Start 11/14/18 at 21:00 Bisacodyl (Dulcolax Supp) 10 mg DAILY PRN [place] CONSTIPATION Last administered on 11/14/18 16:43; Admin Dose 10 MG; Start 11/14/18 at 16:30 IV Flush (NS 10 ml) 10 ml PRN PRN IV FLUSH LINE; Start 11/15/18 at 15:30 Gabapentin (Neurontin Liquid) 300 mg BID PO Last administered on 12/06/18 09:32; Admin Dose 300 MG; Start 11/18/18 at 21:00 Diagnostic Test (Pha) (Accu-Chek) 1 ea 02 XX Last administered on 12/04/18at 02:00; Admin Dose 1 EA; Start 11/20/18 at 02:00 Ascorbic Acid (Vitamin C) 500 mg DAILY PO Last administered on 12/06/18 08:43; Admin Dose 500 MG; Start 11/20/18 at 09:00 Zinc Sulfate (Zinc Sulfate) 220 mg DAILY PO Last administered on 12/06/18 08:44; Admin Dose 220 MG; Start 11/20/18 at 09:00 Atorvastatin Calcium (Lipitor) 80 mg QHS PO Last administered on 12/05/18 21:08; Admin Dose 80 MG; Start 11/19/18 at 21:00 Insulin Glargine (Lantus) 25 units DAILY@0800 SC Last administered on 12/06/18 08:07; Admin Dose 25 UNITS; Start 11/22/18 at 08:00 Lorazepam (Ativan) 0.5 mg Q6H PRN IV anxiety/agitation Last administered on 11/22/18 19:32; Admin Dose 0.5 MG; Start 11/22/18 at 11:00 Clopidogrel Bisulfate (plaVIX) 75 mg DAILY PO Last administered on 12/06/18 08:44; Admin Dose 75 MG; Start 11/23/18 at 09:00 Haloperidol (Haldol) 5 mg Q12H PRN IM agitation Last administered on 11/22/18 19:44; Admin Dose 5 MG; Start 11/22/18 at 14:30 Quetiapine Fumarate (Seroquel) 25 mg QHS PO Last administered on 12/05/18 21:08; Admin Dose 25 MG; Start 11/26/18 at 21:00 Hydralazine HCl (Apresoline) 25 mg TID PO Last administered on 11/28/18 21:08; Admin Dose 25 MG; Start 11/28/18 at 13:00; Status Hold Polyethylene Glycol (Miralax) 17 gm DAILY PRN PO constipation Last administered on 12/06/18 06:10; Admin Dose 17 GM; Start 11/29/18 at 08:02 Aspirin (Aspirin) 81 mg DAILY PO Last administered on 12/06/18 09:32; Admin Dose 81 MG; Start 11/29/18 at 09:00 Famotidine (Pepcid) 20 mg DAILY PO Last administered on 12/06/18 08:43; Admin Dose 20 MG; Start 11/29/18 at 09:00 Senna/Docusate Sodium (Senokot-S) 1 tab BID PRN PO constipation; Start 11/29/18 at 08:30 Insulin Aspart (Novolog Insulin Pen) 4 unit WITH MEALS SC Last administered on 12/06/18 08:06; Admin Dose 4 UNIT; Start 12/02/18 at 17:35 Insulin Aspart (Novolog Insulin Pen) NOVOLOG *MILD* ALGORITHM WITH MEALS BEDTIME SC Last administered on 12/06/18 08:06; Admin Dose 2 UNIT; Start 12/02/18 at 18:05 Lisinopril (Zestril) 2.5 mg DAILY PO Last administered on 12/06/18 08:43; Admin Dose 2.5 MG; Start 12/03/18 at 09:00 Fluconazole/ Sodium Chloride 50 ml @ 50 mls/hr Q24H IVPB Last administered on 12/05/18 15:18; Admin Dose 50 MLS/HR; Start 12/03/18 at 15:30 Furosemide (Lasix) 20 mg DAILY@0600 PO Last administered on 12/06/18at 06:11; Admin Dose 20 MG; Start 12/04/18 at 10:30 Doxycycline Hyclate (Vibramycin) 100 mg BID PO Last administered on 12/06/18 08:44; Admin Dose 100 MG; Start 12/05/18 at 21:00 VTE Prophylaxis Risk score (from Ns)>0 risk: 2 [place]CD applied [place] [facility] [place] Lines/Catheters IV Catheter Type: Schneider in Place: No Assessment/Plan Hospital Course Subjective Patient doing well Objective Physical exam General: Patient is laying in bed responding to questions appropriately Mentation: Patient is alert and oriented Head: Normocephalic atraumatic Eyes: EOMI, pupils reactive to light Neck: Supple, nontender, midline Respiratory: Coarse to auscultation bilaterally Cardiovascular: regular rate, no obvious murmurs Gastrointestinal: non-tender to palpation, bowel sounds heard. Neurological: Moves all extremities spontaneously Skin: No new skin lesions, surgical site bandaged, CDI Assessment/Plan Questionable bacteremia -Questionable to bacteremia, infectious disease will be back on board -IV vancomycin held per infectious disease, cultures cw contaminent Fungal UTI -fluconazole per id -Infectious disease recommendations appreciated Drainage from surgical site and groin area -Wound VAC placed -Vascular surgery and wound care to reevaluate patient over the weekend, may need further intervention if draining does not subside groin wound infection -on doxycycline Mild hypotension, resolved -Stop IV fluid, hold Lasix per cardiology recommendation 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 Completed course of antibiotics - Continue local wound care - Podiatry on board and appreciate consultation. no further procedures scheduled at this time Left frontal CVA - Neurology on board and appreciate recommendations - continue on aspirin and Plavix and statin left-sided internal carotid artery stenosis - 25% per CT angiogram, continue aspirin, statin, Plavix per vascular surgeon Acute hypoxic respiratory failure-resolved - doing well on room air - Pulmonology consultation appreciated Cardiac arrest s/p ROSC - Cardiology on board and appreciate recommendations - ECHO with preserved EF Severe peripheral vascular disease - s/p left femoral endarterectomy, iliofemoral bypass and femoral to posterior tibial bypass done on November 08, 2018 - Vascular surgery consultation appreciated. Continue aspirin and Plavix Diabetes Mellitus - A1c noted - continue lantus and ISS. adjust as needed Acute kidney injury- resolved - nephrology consultation appreciated Essential HTN - Continue home medications at this time as tolerated Peripheral neuropathy - cont. gabapentin HLD - On statin Chronic anemia - Stable H&H. Monitor - no need for transfusions at this time Urinary retention, resolved - Urology on board and appreciate recommendations. -patient doing well on voiding trial, no schneider acute delerium -resolved. Disposition -We will assess over the weekend per vascular and wound care recommendations as to how much drainage is coming from surgical site, if drainage from surgical site lessens patient will be able to go home with home health PT and wound VAC however if continues to be copious amounts may need further intervention. FRANTZ SCHWAB Dec 06, 2018 10:21
[2018-12-06] MEDS: ACETAMINOPHEN 325 MG TAB PO PRN (10:32)
--- NOTE | 2018-12-06 13:02 | CONS ---
Assessment/Plan Assessment/Plan Hospital Course (Demo Recall) IMPRESSION: 1. Preoperative evaluation prior to possible need for peripheral revascularization surgery.-neg trop x 3 and NL EF by echo with no sig valve abnl. Echo repeat 11/13 with NL EF 2. Peripheral arterial disease with nonhealing gangrenous changes in left toe ulceration. 3. Hypertension-now tolerating low dose ACEI 4. Dyslipidemia. 5. Diabetes mellitus. 6. s/p cardiopulmonary arrest 7. Bradycardic intermittent by tele-now resolved 8. Positive troponin after arrest-? secondary to or primary to arrest, likely secondary to arrest, type 2 demand infarct, as no signifcant uptrend and now downtrended to negative 9. Resp failure-s/p extubation 10. CVA-Acute by MRI 11.Groin wound 12. UTI-fungal Recc: -Now on med-surg -Continue asa/plavix/statin for cva -serial ecg's -Continue doxycycline now fro groin wound -s/p fluconazole for fungal UTI -local wound care -heparin was d/c'd secondary to anemia requiring transfusions -follow volume status closely now back on daily lasix -follow MS closely -Continue now zestril mononotherapy at reduced dose which patient is tolerating Consultation Date/Type/Reason Admit Date/Time Nov 04, 2018 at 07:34 Initial Consult Date 11/06/18 Type of Consult Cardiology Reason for Consultation HTN Requesting Provider: KARL WOOD MD Date/Time of Note DATE: 12/06/18 TIME: 12:57 Exam/Review of Systems Vital Signs Vitals Vital Signs Date Temp Pulse Resp B/P (MAP) Pulse Ox O2 O2 Flow FiO2 Time Delivery Rate 12/06/18 97.5 87 16 112/65 98 Room Air 07:55 (81) Intake and Output 12/05/18 12/05/18 12/06/18 1515:00 23:00 07:00 IntakeIntake Total 50 ml 770 ml 1480 ml OutputOutput Total 0 ml 50 ml BalanceBalance 50 ml 770 ml 1430 ml Exam Exam Review of Systems: CONSTITUTIONAL: No fevers, chills. PULMONARY: No sob CARDIOVASCULAR: No chest pain/palpitations GASTROINTESTINAL: No nausea/vomiting. GENITOURINARY: No hematuria/dysuria. MUSCULOSKELETAL: mild pain in foot PSYCHIATRIC: The patient denies depression. NEUROLOGIC: No weakness Constitutional: alert Psych: no complaints Head: normocephalic ENMT: mucosa pink and moist Neck: supple, jvd (8 cmn water) Respiratory: clear to auscultation Cardiovascular: regular rate and rhythm Gastrointestinal: soft, non-tender Musculoskeletal: muscle weakness (mild generalized) Extremities: edema (LLE with foot copvered by dressing) Neurological: other (No focal deficits) Labs Result Diagram: 12/06/18 0541 12/06/18 0541 Results 24hrs Laboratory Tests Test 12/05/18 17:33 12/05/18 21:07 12/06/18 01:39 12/06/18 05:41 Bedside Glucose 282 H 195 186 White Blood Count 5.0 Red Blood Count 3.48 L Hemoglobin 10.4 L Hematocrit 32.2 L Mean Corpuscular 92.5 Volume Mean Corpuscular 29.9 Hemoglobin Mean Corpuscular 32.3 Hemoglobin Concent Red Cell 13.8 Distribution Width Platelet Count 177 Mean Platelet Volume 11.2 H Immature 0.200 Granulocytes % Neutrophils % 38.7 L Lymphocytes % 39.2 Monocytes % 13.9 H Eosinophils % 7.0 Basophils % 1.0 Nucleated Red Blood 0.0 Cells % Immature 0.010 Granulocytes # Neutrophils # 1.9 Lymphocytes # 2.0 Monocytes # 0.7 Eosinophils # 0.4 Basophils # 0.1 Nucleated Red Blood 0.0 Cells # Sodium Level 135 Potassium Level 4.3 Chloride Level 101 Carbon Dioxide Level 27 Anion Gap 7 Blood Urea Nitrogen 21 H Creatinine 0.96 Est Glomerular Filtrat Rate mL/min Glucose Level 186 Calcium Level 8.8 Phosphorus Level 3.7 Magnesium Level 1.9 Test 12/06/18 08:04 12/06/18 12:07 Bedside Glucose 186 261 H Medications Medications Current Medications Ergocalciferol (Drisdol) 50,000 unit Sa PO Last administered on 11/30/18at 08:00; Admin Dose 50,000 UNIT; Start 11/09/18 at 09:00 Miscellaneous Medication (Bystolic) 20 mg DAILY PO Last administered on 11/11/18 09:03; Admin Dose 20 MG; Start 11/04/18 at 09:00; Status Hold Clonidine (Catapres) 0.1 mg Q6H PRN PO SBP>160 Last administered on 11/19/18at 03:04; Admin Dose 0.1 MG; Start 11/04/18 at 09:00 IV Flush (NS 3 ml) 3 ml PER PROTOCOL IV ; Start 11/04/18 at 09:00 Ondansetron HCl (Zofran Inj) 4 mg Q6H PRN IV NAUSEA/VOMITING; Start 11/04/18 at 09:00 Acetaminophen (Tylenol Tab) 650 mg Q6H PRN PO .PAIN 1-3 OR TEMP Last administ ered on 12/06/18at 10:32; Admin Dose 650 MG; Start 11/04/18 at 09:00 Miscellaneous Information 1 ea NOTE XX ; Start 11/04/18 at 09:00 Glucose (Glutose) 15 gm Q15M PRN PO DECREASED GLUCOSE; Start 11/04/18 at 09:00 Glucose (Glutose) 22.5 gm Q15M PRN PO DECREASED GLUCOSE; Start 11/04/18 at 09:00 Dextrose (D50w Syringe) 25 ml Q15M PRN IV DECREASED GLUCOSE; Start 11/04/18 at 09:00 Dextrose (D50w Syringe) 50 ml Q15M PRN IV DECREASED GLUCOSE; Start 11/04/18 at 09:00 Glucagon (Glucagen) 1 mg Q15M PRN IM DECREASED GLUCOSE; Start 11/04/18 at 09:00 Glucose (Glutose) 15 gm Q15M PRN BUCCAL DECREASED GLUCOSE; Start 11/04/18 at 09:00 Miscellaneous Information Patients own medicat... BID@10,16 XX Last administered on 11/20/18at 16:16; Admin Dose 1 EA; Start 11/04/18 at 16:00 Sodium Hypochlorite (Dakins Diluted (40)) 1 applic BID TP Last administered on 12/06/18at 08:50; Admin Dose 1 APPLIC; Start 11/07/18 at 09:00 Hydralazine HCl (Apresoline) 10 mg Q4H PRN IV sbp >160 Last administered on 11/20/18 14:44; Admin Dose 10 MG; Start 11/08/18 at 09:00 Atropine Sulfate (Atropine) 0.5 mg PRN PRN IV SYMPTOMATIC BRADYCARDIA; Start 11/11/18 at 23:00 Heparin Sodium (Porcine) (Heparin (5000 Units/1ml)) 5,000 unit BID SC Last administered on 12/06/18 08:44; Admin Dose 5,000 UNIT; Start 11/14/18 at 21:00 Bisacodyl (Dulcolax Supp) 10 mg DAILY PRN OR CONSTIPATION Last administered on 11/14/18 16:43; Admin Dose 10 MG; Start 11/14/18 at 16:30 IV Flush (NS 10 ml) 10 ml PRN PRN IV FLUSH LINE; Start 11/15/18 at 15:30 Gabapentin (Neurontin Liquid) 300 mg BID PO Last administered on 12/06/18 09:32; Admin Dose 300 MG; Start 11/18/18 at 21:00 Diagnostic Test (Pha) (Accu-Chek) 1 ea 02 XX Last administered on 12/04/18 02:00; Admin Dose 1 EA; Start 11/20/18 at 02:00 Ascorbic Acid (Vitamin C) 500 mg DAILY PO Last administered on 12/06/18 08:43; Admin Dose 500 MG; Start 11/20/18 at 09:00 Zinc Sulfate (Zinc Sulfate) 220 mg DAILY PO Last administered on 12/06/18 08:44; Admin Dose 220 MG; Start 11/20/18 at 09:00 Atorvastatin Calcium (Lipitor) 80 mg QHS PO Last administered on 12/05/18 21:08; Admin Dose 80 MG; Start 11/19/18 at 21:00 Insulin Glargine (Lantus) 25 units DAILY@0800 SC Last administered on 12/06/18 08:07; Admin Dose 25 UNITS; Start 11/22/18 at 08:00 Lorazepam (Ativan) 0.5 mg Q6H PRN IV anxiety/agitation Last administered on 11/22/18 19:32; Admin Dose 0.5 MG; Start 11/22/18 at 11:00 Clopidogrel Bisulfate (plaVIX) 75 mg DAILY PO Last administered on 12/06/18 08:44; Admin Dose 75 MG; Start 11/23/18 at 09:00 Haloperidol (Haldol) 5 mg Q12H PRN IM agitation Last administered on 11/22/18 19:44; Admin Dose 5 MG; Start 11/22/18 at 14:30 Quetiapine Fumarate (Seroquel) 25 mg QHS PO Last administered on 12/05/18 21:08; Admin Dose 25 MG; Start 11/26/18 at 21:00 Hydralazine HCl (Apresoline) 25 mg TID PO Last administered on 11/28/18 21:08; Admin Dose 25 MG; Start 11/28/18 at 13:00; Status Hold Polyethylene Glycol (Miralax) 17 gm DAILY PRN PO constipation Last administered on 12/06/18 06:10; Admin Dose 17 GM; Start 11/29/18 at 08:02 Aspirin (Aspirin) 81 mg DAILY PO Last administered on 12/06/18 09:32; Admin Dose 81 MG; Start 11/29/18 at 09:00 Famotidine (Pepcid) 20 mg DAILY PO Last administered on 12/06/18 08:43; Admin Dose 20 MG; Start 11/29/18 at 09:00 Senna/Docusate Sodium (Senokot-S) 1 tab BID PRN PO constipation; Start 11/29/18 at 08:30 Insulin Aspart (Novolog Insulin Pen) 4 unit WITH MEALS SC Last administered on 12/06/18 12:10; Admin Dose 4 UNIT; Start 12/02/18 at 17:35 Insulin Aspart (Novolog Insulin Pen) NOVOLOG *MILD* ALGORITHM WITH MEALS BE DTIME SC Last administered on 12/06/18 12:09; Admin Dose 4 UNIT; Start 12/02/18 at 18:05 Lisinopril (Zestril) 2.5 mg DAILY PO Last administered on 12/06/18 08:43; Admin Dose 2.5 MG; Start 12/03/18 at 09:00 Furosemide (Lasix) 20 mg DAILY@0600 PO Last administered on 12/06/18 06:11; Admin Dose 20 MG; Start 12/04/18 at 10:30 Doxycycline Hyclate (Vibramycin) 100 mg BID PO Last administered on 12/06/18 08:44; Admin Dose 100 MG; Start 12/05/18 at 21:00 KLEVER HUNT 19, 2019 13:02
--- NOTE | 2018-12-06 13:42 | CONS ---
Assessment/Plan Assessment/Plan Hospital Course (Demo Recall) No acute changes, awake, looks comfortable, afebrile Left groin wound culture grew coag negative staph and scant enterococcus, patient remains on doxycycline Bld cx + Staph Urine cx neg CXR noted Abx: Doxycycline Physical examination: Well-developed elderly man who is in no distress head atraumatic normocephalic neck is supple chest rise symmetrical breath sounds CTA heart S1-S2, abdomen soft bowel sounds present extremities with left foot dressing intact Assessment: 1. Bacteremia, cw contaminant 2. UTI per ua==> neg cx 3. Status post cardiac arrest/non-ST elevation DE 4. Status post acute respiratory failure, possibly aspirated 5. Peripheral arterial disease status post left femoral to posterior tibial bypass 11/08/18 6. Diabetes 7. History of left foot second toe amputation Plan: Clinically stable, left groin has a wound VAC, no erythema, cultures g rowing staph and enterococcus, will change antibiotics to oral Zyvox and await for final cultures Consultation Date/Type/Reason Admit Date/Time Nov 04, 2018 at 07:34 Initial Consult Date Type of Consult id Requesting Provider: KARL WOOD MD Date/Time of Note DATE: 12/06/18 TIME: 13:41 Exam/Review of Systems Exam Vitals Vital Signs Date Temp Pulse Resp B/P (MAP) Pulse Ox O2 O2 Flow FiO2 Time Delivery Rate 12/06/18 97.5 87 16 112/65 98 Room Air 07:55 (81) Intake and Output 12/05/18 12/05/18 12/06/18 1515:00 23:00 07:00 IntakeIntake Total 50 ml 770 ml 1480 ml OutputOutput Total 0 ml 50 ml BalanceBalance 50 ml 770 ml 1430 ml Results Result Diagram: 12/06/18 0541 12/06/18 0541 Results 24hrs Laboratory Tests Test 12/05/18 17:33 12/05/18 21:07 12/06/18 01:39 12/06/18 05:41 Bedside Glucose 282 H 195 186 White Blood Count 5.0 Red Blood Count 3.48 L Hemoglobin 10.4 L Hematocrit 32.2 L Mean Corpuscular 92.5 Volume Mean Corpuscular 29.9 Hemoglobin Mean Corpuscular 32.3 Hemoglobin Concent Red Cell 13.8 Distribution Width Platelet Count 177 Mean Platelet Volume 11.2 H Immature 0.200 Granulocytes % Neutrophils % 38.7 L Lymphocytes % 39.2 Monocytes % 13.9 H Eosinophils % 7.0 Basophils % 1.0 Nucleated Red Blood 0.0 Cells % Immature 0.010 Granulocytes # Neutrophils # 1.9 Lymphocytes # 2.0 Monocytes # 0.7 Eosinophils # 0.4 Basophils # 0.1 Nucleated Red Blood 0.0 Cells # Sodium Level 135 Potassium Level 4.3 Chloride Level 101 Carbon Dioxide Level 27 Anion Gap 7 Blood Urea Nitrogen 21 H Creatinine 0.96 Est Glomerular Filtrat Rate mL/min Glucose Level 186 Calcium Level 8.8 Phosphorus Level 3.7 Magnesium Level 1.9 Test 12/06/18 08:04 12/06/18 12:07 Bedside Glucose 186 261 H Medications Medication Current Medications Ergocalciferol (Drisdol) 50,000 unit Sa PO Last administered on 11/30/18 08:00; Admin Dose 50,000 UNIT; Start 11/09/18 at 09:00 Miscellaneous Medication (Bystolic) 20 mg DAILY PO Last administered on 11/11/18 09:03; Admin Dose 20 MG; Start 11/04/18 at 09:00; Status Hold Clonidine (Catapres) 0.1 mg Q6H PRN PO SBP>160 Last administered on 11/19/18 03:04; Admin Dose 0.1 MG; Start 11/04/18 at 09:00 IV Flush (NS 3 ml) 3 ml PER PROTOCOL IV ; Start 11/04/18 at 09:00 Ondansetron HCl (Zofran Inj) 4 mg Q6H PRN IV NAUSEA/VOMITING; Start 11/04/18 at 09:00 Acetaminophen (Tylenol Tab) 650 mg Q6H PRN PO .PAIN 1-3 OR TEMP Last administered on 12/06/18at 10:32; Admin Dose 650 MG; Start 11/04/18 at 09:00 Miscellaneous Information 1 ea NOTE XX ; Start 11/04/18 at 09:00 Glucose (Glutose) 15 gm Q15M PRN PO DECREASED GLUCOSE; Start 11/04/18 at 09:00 Glucose (Glutose) 22.5 gm Q15M PRN PO DECREASED GLUCOSE; Start 11/04/18 at 09:00 Dextrose (D50w Syringe) 25 ml Q15M PRN IV DECREASED GLUCOSE; Start 11/04/18 at 09:00 Dextrose (D50w Syringe) 50 ml Q15M PRN IV DECREASED GLUCOSE; Start 11/04/18 at 09:00 Glucagon (Glucagen) 1 mg Q15M PRN IM DECREASED GLUCOSE; Start 11/04/18 at 09:00 Glucose (Glutose) 15 gm Q15M PRN BUCCAL DECREASED GLUCOSE; Start 11/04/18 at 09:00 Miscellaneous Information Patients own medicat... BID@10,16 XX Last administered on 11/20/18at 16:16; Admin Dose 1 EA; Start 11/04/18 at 16:00 Sodium Hypochlorite (Dakins Diluted ()) 1 applic BID TP Last administered on 12/06/18 08:50; Admin Dose 1 APPLIC; Start 11/07/18 at 09:00 Hydralazine HCl (Apresoline) 10 mg Q4H PRN IV sbp >160 Last administered on 11/20/18at 14:44; Admin Dose 10 MG; Start 11/08/18 at 09:00 Atropine Sulfate (Atropine) 0.5 mg PRN PRN IV SYMPTOMATIC BRADYCARDIA; Start at 23:00 Heparin Sodium (Porcine) (Heparin (5000 Units/1ml)) 5,000 unit BID SC Last administered on 12/06/18 08:44; Admin Dose 5,000 UNIT; Start 11/14/18 at 21:00 Bisacodyl (Dulcolax Supp) 10 mg DAILY PRN DC CONSTIPATION Last administered on 11/14/18 16:43; Admin Dose 10 MG; Start 11/14/18 at 16:30 IV Flush (NS 10 ml) 10 ml PRN PRN IV FLUSH LINE; Start 11/15/18 at 15:30 Gabapentin (Neurontin Liquid) 300 mg BID PO Last administered on 12/06/18 09:32; Admin Dose 300 MG; Start 11/18/18 at 21:00 Diagnostic Test (Pha) (Accu-Chek) 1 ea 02 XX Last administered on 12/04/18at 02:00; Admin Dose 1 EA; Start 11/20/18 at 02:00 Ascorbic Acid (Vitamin C) 500 mg DAILY PO Last administered on 12/06/18 08:43; Admin Dose 500 MG; Start 11/20/18 at 09:00 Zinc Sulfate (Zinc Sulfate) 220 mg DAILY PO Last administered on 12/06/18 08:44; Admin Dose 220 MG; Start 11/20/18 at 09:00 Atorvastatin Calcium (Lipitor) 80 mg QHS PO Last administered on 12/05/18 21:08; Admin Dose 80 MG; Start 11/19/18 at 21:00 Insulin Glargine (Lantus) 25 units DAILY@0800 SC Last administered on 12/06/18 08:07; Admin Dose 25 UNITS; Start 11/22/18 at 08:00 Lorazepam (Ativan) 0.5 mg Q6H PRN IV anxiety/agitation Last administered on 11/22/18 19:32; Admin Dose 0.5 MG; Start 11/22/18 at 11:00 Clopidogrel Bisulfate (plaVIX) 75 mg DAILY PO Last administered on 12/06/18 08:44; Admin Dose 75 MG; Start 11/23/18 at 09:00 Haloperidol (Haldol) 5 mg Q12H PRN IM agitation Last administered on 11/22/18 19:44; Admin Dose 5 MG; Start 11/22/18 at 14:30 Quetiapine Fumarate (Seroquel) 25 mg QHS PO Last administered on 12/05/18 21:08; Admin Dose 25 MG; Start 11/26/18 at 21:00 Hydralazine HCl (Apresoline) 25 mg TID PO Last administered on 11/28/18 21:08; Admin Dose 25 MG; Start 11/28/18 at 13:00; Status Hold Polyethylene Glycol (Miralax) 17 gm DAILY PRN PO constipation Last administered on 12/06/18 06:10; Admin Dose 17 GM; Start 11/29/18 at 08:02 Aspirin (Aspirin) 81 mg DAILY PO Last administered on 12/06/18 09:32; Admin Dose 81 MG; Start 11/29/18 at 09:00 Famotidine (Pepcid) 20 mg DAILY PO Last administered on 12/06/18 08:43; Admin Dose 20 MG; Start 11/29/18 at 09:00 Senna/Docusate Sodium (Senokot-S) 1 tab BID PRN PO constipation; Start 11/29/18 at 08:30 Insulin Aspart (Novolog Insulin Pen) 4 unit WITH MEALS SC Last administered on 12/06/18 12:10; Admin Dose 4 UNIT; Start 12/02/18 at 17:35 Insulin Aspart (Novolog Insulin Pen) NOVOLOG *MILD* ALGORITHM WITH MEALS BEDTIME SC Last administered on 12/06/18 12:09; Admin Dose 4 UNIT; Start 12/02/18 at 18:05 Lisinopril (Zestril) 2.5 mg DAILY PO Last administered on 12/06/18 08:43; Admin Dose 2.5 MG; Start 12/03/18 at 09:00 Furosemide (Lasix) 20 mg DAILY@0600 PO Last administered on 12/06/18 06:11; Admin Dose 20 MG; Start 12/04/18 at 10:30 Doxycycline Hyclate (Vibramycin) 100 mg BID PO Last administered on 12/06/18 08:44; Admin Dose 100 MG; Start 12/05/18 at 21:00 HERRERA MURILLO NP Dec 06, 2018 13:42
[2018-12-06 14:25] VITALS: BP 127/67; PULSE 92; RESP 18
[2018-12-06] MEDS: ZYVOX 600 MG TAB PO SCH ×2 (14:51→20:21)
[2018-12-06] MEDS: ATORVASTATIN 80 MG TAB PO SCH (20:21)
[2018-12-06] MEDS: QUETIAPINE 25 MG TAB PO SCH (20:21)
[2018-12-06 20:35] VITALS: BP 145/81; PULSE 96; RESP 18
[2018-12-07] MEDS: ACETAMINOPHEN 325 MG TAB PO PRN ×4 (00:28→21:46)
[2018-12-07 02:00] VITALS: BP 131/63; PULSE 90; RESP 18
[2018-12-07] MEDS: ACCU-CHEK XX SCH (02:17)
[2018-12-07] MEDS: FUROSEMIDE 20 MG TAB PO SCH (06:25)
[2018-12-07] MEDS: INSULIN ASPART [NOVOLOG] 3 ML PEN SC SCH ×7 (08:13→20:44)
[2018-12-07] MEDS: INSULIN GLARGINE [LANTus] (100 UNITS/ML) SYG SC SCH (08:14)
[2018-12-07] MEDS: HEPARIN 5,000 UNIT/1 ML VIAL SC SCH ×2 (08:15→20:46)
[2018-12-07] MEDS: LISINOPRIL 5 MG TAB PO SCH (08:16)
[2018-12-07] MEDS: FAMOTIDINE 20 MG TAB PO SCH (08:16)
[2018-12-07] MEDS: ASPIRIN 81 MG TAB PO SCH (08:16)
[2018-12-07] MEDS: ZYVOX 600 MG TAB PO SCH ×2 (08:16→20:49)
[2018-12-07] MEDS: GABAPENTIN (50 MG/ML PO SYG) PO SCH ×2 (08:16→20:50)
[2018-12-07] MEDS: ZINC SULFATE 220 MG CAP PO SCH (08:16)
[2018-12-07] MEDS: ASCORBIC ACID 500 MG TAB PO SCH (08:16)
[2018-12-07] MEDS: CLOPIDOGREL 75 MG TAB PO SCH (08:16)
[2018-12-07] MEDS: DAKINS 0.0125%(1/40) 473 ML SOLUTION TP SCH ×2 (08:18→20:54)
[2018-12-07 08:23] VITALS: BP 99/57; PULSE 84; RESP 18
[2018-12-07] MEDS: ERGOCALCIFEROL 50,000 UNIT CAP PO SCH (08:55)
--- NOTE | 2018-12-07 11:20 | PN ---
Date/Time of Note Date/Time of Note DATE: 12/07/18 TIME: 11:19 Objective Vitals Vital Signs Date Temp Pulse Resp B/P (MAP) Pulse Ox O2 O2 Flow FiO2 Time Delivery Rate 12/07/18 97.6 84 18 99/57 (71) 99 Room Air 08:23 Intake and Output 12/06/18 12/06/18 12/07/18 1515:00 23:00 07:00 IntakeIntake Total 900 ml 300 ml 1000 ml BalanceBalance 900 ml 300 ml 1000 ml Results Result Diagram: 12/07/1852112/07/18521 Medications Medications Current Medications Ergocalciferol (Drisdol) 50,000 unit Sa PO Last administered on 12/07/18at 08:55; Admin Dose 50,000 UNIT; Start 11/09/18 at 09:00 Miscellaneous Medication (Bystolic) 20 mg DAILY PO Last administered on 11/11/18at 09:03; Admin Dose 20 MG; Start 11/04/18 at 09:00; Status Hold Clonidine (Catapres) 0.1 mg Q6H PRN PO SBP>160 Last administered on 11/19/18at 03:04; Admin Dose 0.1 MG; Start 11/04/18 at 09:00 IV Flush (NS 3 ml) 3 ml PER PROTOCOL IV ; Start 11/04/18 at 09:00 Ondansetron HCl (Zofran Inj) 4 mg Q6H PRN IV NAUSEA/VOMITING; Start 11/04/18 at 09:00 Acetaminophen (Tylenol Tab) 650 mg Q6H PRN PO .PAIN 1-3 OR TEMP Last administered on 12/07/18at 06:21; Admin Dose 650 MG; Start 11/04/18 at 09:00 Miscellaneous Information 1 ea NOTE XX ; Start 11/04/18 at 09:00 Glucose (Glutose) 15 gm Q15M PRN PO DECREASED GLUCOSE; Start 11/04/18 at 09:00 Glucose (Glutose) 22.5 gm Q15M PRN PO DECREASED GLUCOSE; Start 11/04/18 at 09:00 Dextrose (D50w Syringe) 25 ml Q15M PRN IV DECREASED GLUCOSE; Start 11/04/18 at 09:00 Dextrose (D50w Syringe) 50 ml Q15M PRN IV DECREASED GLUCOSE; Start 11/04/18 at 09:00 Glucagon (Glucagen) 1 mg Q15M PRN IM DECREASED GLUCOSE; Start 11/04/18 at 09:00 Glucose (Glutose) 15 gm Q15M PRN BUCCAL DECREASED GLUCOSE; Start 11/04/18 at 09:00 Miscellaneous Information Patients own medicat... BID@10,16 XX Last administered on 11/20/18 16:16; Admin Dose 1 EA; Start 11/04/18 at 16:00 Sodium Hypochlorite (Dakins Diluted ()) 1 applic BID TP Last administered on 12/07/18 08:18; Admin Dose 1 APPLIC; Start 11/07/18 at 09:00 Hydralazine HCl (Apresoline) 10 mg Q4H PRN IV sbp >160 Last administered on 11/20/18at 14:44; Admin Dose 10 MG; Start 11/08/18 at 09:00 Atropine Sulfate (Atropine) 0.5 mg PRN PRN IV SYMPTOMATIC BRADYCARDIA; Start 11/11/18 at 23:00 Heparin Sodium (Porcine) (Heparin (5000 Units/1ml)) 5,000 unit BID SC Last administered on 12/07/18 08:15; Admin Dose 5,000 UNIT; Start 11/14/18 at 21:00 Bisacodyl (Dulcolax Supp) 10 mg DAILY PRN NE CONSTIPATION Last administered on 11/14/18at 16:43; Admin Dose 10 MG; Start 11/14/18 at 16:30 IV Flush (NS 10 ml) 10 ml PRN PRN IV FLUSH LINE; Start 11/15/18 at 15:30 Gabapentin (Neurontin Liquid) 300 mg BID PO Last administered on 12/07/18 08:16; Admin Dose 300 MG; Start 11/18/18 at 21:00 Diagnostic Test (Pha) (Accu-Chek) 1 ea 02 XX Last administered on 12/07/18 02:17; Admin Dose 1 EA; Start 11/20/18 at 02:00 Ascorbic Acid (Vitamin C) 500 mg DAILY PO Last administered on 12/07/18 08:16; Admin Dose 500 MG; Start 11/20/18 at 09:00 Zinc Sulfate (Zinc Sulfate) 220 mg DAILY PO Last administered on 12/07/18 08:16; Admin Dose 220 MG; Start 11/20/18 at 09:00 Atorvastatin Calcium (Lipitor) 80 mg QHS PO Last administered on 12/06/18 20:21; Admin Dose 80 MG; Start 11/19/18 at 21:00 Insulin Glargine (Lantus) 25 units DAILY@0800 SC Last administered on 12/07/18 08:14; Admin Dose 25 UNITS; Start 11/22/18 at 08:00 Lorazepam (Ativan) 0.5 mg Q6H PRN IV anxiety/agitation Last administered on 11/22/18 19:32; Admin Dose 0.5 MG; Start 11/22/18 at 11:00 Clopidogrel Bisulfate (plaVIX) 75 mg DAILY PO Last administered on 12/07/18 08:16; Admin Dose 75 MG; Start 11/23/18 at 09:00 Haloperidol (Haldol) 5 mg Q12H PRN IM agitation Last administered on 11/22/18 19:44; Admin Dose 5 MG; Start 11/22/18 at 14:30 Quetiapine Fumarate (Seroquel) 25 mg QHS PO Last administered on 12/06/18 20:21; Admin Dose 25 MG; Start 11/26/18 at 21:00 Hydralazine HCl (Apresoline) 25 mg TID PO Last administered on 11/28/18 21:08; Admin Dose 25 MG; Start 11/28/18 at 13:00; Status Hold Polyethylene Glycol (Miralax) 17 gm DAILY PRN PO constipation Last administered on 12/06/18 06:10; Admin Dose 17 GM; Start 11/29/18 at 08:02 Aspirin (Aspirin) 81 mg DAILY PO Last administered on 12/07/18 08:16; Admin Dose 81 MG; Start 11/29/18 at 09:00 Famotidine (Pepcid) 20 mg DAILY PO Last administered on 12/07/18 08:16; Admin Dose 20 MG; Start 11/29/18 at 09:00 Senna/Docusate Sodium (Senokot-S) 1 tab BID PRN PO constipation; Start 11/29/18 at 08:30 Insulin Aspart (Novolog Insulin Pen) 4 unit WITH MEALS SC Last administered on 12/07/18 08:13; Admin Dose 4 UNIT; Start 12/02/18 at 17:35 Insulin Aspart (Novolog Insulin Pen) NOVOLOG *MILD* ALGORITHM WITH MEALS BEDTIME SC Last administered on 12/07/18at 08:14; Admin Dose 3 UNIT; Start 12/02/18 at 18:05 Lisinopril (Zestril) 2.5 mg DAILY PO Last administered on 12/06/18at 08:43; Admin Dose 2.5 MG; Start 12/03/18 at 09:00 Furosemide (Lasix) 20 mg DAILY@0600 PO Last administered on 12/07/18at 06:25; Admin Dose 20 MG; Start 12/04/18 at 10:30 Linezolid (Zyvox) 600 mg BID PO Last administered on 12/07/18at 08:16; Admin Dose 600 MG; Start 12/06/18 at 14:00 VTE Prophylaxis Risk score (from [facility] [place] risk: 4 SCD applied (from [facility] [place] No SCD contraindication: other Lines/Catheters IV Catheter Type: Schneider in Place: No Assessment/Plan Hospital Course Subjective Patient doing well Objective Physical exam General: Patient is laying in bed responding to questions appropriately Mentation: Patient is alert and oriented Head: Normocephalic atraumatic Eyes: EOMI, pupils reactive to light Neck: Supple, nontender, midline Respiratory: Coarse to auscultation bilaterally Cardiovascular: regular rate, no obvious murmurs Gastrointestinal: non-tender to palpation, bowel sounds heard. Neurological: Moves all extremities spontaneously Skin: No new skin lesions, surgical site bandaged, CDI Assessment/Plan Questionable bacteremia, resolved -Questionable to bacteremia, infectious disease will be back on board -IV vancomycin held per infectious disease, cultures cw contaminent Fungal UTI -fluconazole per id -Infectious disease recommendations appreciated Drainage from surgical site and groin area -Wound VAC placed -Vascular surgery and wound care to reevaluate patient over the weekend, may need further intervention if draining does not subside groin wound infection, enteroococcus and coag neg staph -on doxycycline, ID to adjust as needed. 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 Completed course of antibiotics - Continue local wound care - Podiatry on board and appreciate consultation. no further procedures scheduled at this time Left frontal CVA - Neurology on board and appreciate recommendations - continue on aspirin and Plavix and statin left-sided internal carotid artery stenosis - 25% per CT angiogram, continue aspirin, statin, Plavix per vascular surgeon Acute hypoxic respiratory failure-resolved - doing well on room air - Pulmonology consultation appreciated Cardiac arrest s/p ROSC - Cardiology on board and appreciate recommendations - ECHO with preserved EF Severe peripheral vascular disease - s/p left femoral endarterectomy, iliofemoral bypass and femoral to posterior tibial bypass done on November 08, 2018 - Vascular surgery consultation appreciated. Continue aspirin and Plavix Diabetes Mellitus - A1c noted - continue lantus and ISS. adjust as needed Acute kidney injury- resolved - nephrology consultation appreciated Essential HTN - Continue home medications at this time as tolerated Peripheral neuropathy - cont. gabapentin HLD - On statin Chronic anemia - Stable H&H. Monitor - no need for transfusions at this time Urinary retention, resolved - Urology on board and appreciate recommendations. -patient doing well on voiding trial, no schneider acute delerium -resolved. Disposition -We will assess over the weekend per vascular and wound care recommendations as to how much drainage is coming from surgical site, if drainage from surgical site lessens patient will be able to go home with home health PT and wound VAC however if continues to be copious amounts may need further intervention. FRANTZ SCHWAB Dec 07, 2018 11:20
[2018-12-07] MEDS ORDERED: INSULIN GLARGINE [LANTus] (100 UNITS/ML) SYG SC ONE (11:30)
--- NOTE | 2018-12-07 12:13 | CONS ---
Consult Date/Type/Reason Admit Date/Time Nov 04, 2018 at 07:34 Initial Consult Date 11/11/18 Type of Consultation: Pulm Requesting Provider: KARL WOOD MD Date/Time of Note DATE: 12/07/18 TIME: 12:12 Subjective NO acute events - pt doing better overall- denies CP - no new SX now. ROS: No fever, no chills, no nausea, no vomiting, no diarrhea/constipation - mild SOB now Objective Vitals Vital Signs Date Temp Pulse Resp B/P (MAP) Pulse Ox O2 O2 Flow FiO2 Time Delivery Rate 12/07/18 97.6 84 18 99/57 (71) 99 Room Air 08:23 Intake and Output 12/06/18 12/06/18 12/07/18 1515:00 23:00 07:00 IntakeIntake Total 900 ml 300 ml 1000 ml BalanceBalance 900 ml 300 ml 1000 ml Exam General: WN/WD/NAD, AOx 3 HEENT: Unicetric/atraumatic/EOMI ( follows commands) NECK: JVD elevated, no thyromegaly Lymph: no lymphadenopathy HEART: regular with no S3, II/ systolic murmur at apex, PMI L LUNGS: Coarse sounds ABD: soft, NT, ND, +BS : Intact Neuro: non focal SKIN: chronic changes EXT: post op edema Results/Medications Result Diagram: 12/07/1852112/07/18521 Results 24 hrs Laboratory Tests Test 12/06/18 16:48 12/06/18 20:29 12/07/18 02:25 12/07/18 05:22 Bedside Glucose 262 H 302 H 218 White Blood Count 4.9 Red Blood Count 3.65 L Hemoglobin 11.0 L Hematocrit 33.6 L Mean Corpuscular 92.1 Volume Mean Corpuscular 30.1 Hemoglobin Mean Corpuscular 32.7 Hemoglobin Concent Red Cell 13.5 Distribution Width Platelet Count 193 Mean Platelet Volume 11.0 H Immature 0.200 Granulocytes % Neutrophils % 45.5 Lymphocytes % 34.6 Monocytes % 11.7 H Eosinophils % 7.2 H Basophils % 0.8 Nucleated Red Blood 0.0 Cells % Immature 0.010 Granulocytes # Neutrophils # 2.2 Lymphocytes # 1.7 Monocytes # 0.6 Eosinophils # 0.4 Basophils # 0.0 Nucleated Red Blood 0.0 Cells # Sodium Level 134 L Potassium Level 4.9 Chloride Level 99 Carbon Dioxide Level 27 Anion Gap 8 Blood Urea Nitrogen 24 H Creatinine 0.96 Est Glomerular Filtrat Rate mL/min Glucose Level 247 H Calcium Level 8.9 Phosphorus Level 3.9 Magnesium Level 1.8 Test 12/07/18 08:10 Bedside Glucose 239 H Home Meds Active Scripts Silver Sulfadiazine* (Silvadene*) 1% - 20 Gm Cream.gm., 1 APPLIC TOP DAILY, #1 TUB Prov:JESSIE WONG MD 06/12/18 Amoxicillin-Clavulanate K* (Augmentin*) 875 Mg Tab, 875 MG PO BID, #28 TAB Prov:AMANDA GOMEZ MD 06/08/14 Reported Medications Insulin Aspart (Novolog Mix (70/30)) 100 Units/Ml Soln, 28 SC with diinner, VIAL 11/04/18 Insulin Aspart (Novolog Mix (70/30)) 100 Units/Ml Soln, 38 SC WITH BREAKFAST, VIAL 11/04/18 Benazepril Hcl* (Benazepril Hcl*) 40 Mg Tablet, 40 MG PO DAILY, #30 TAB 11/04/18 Ergocalciferol (Vitamin D2) (VITAMIN D2) 50,000 Unit Capsule, 90223 UNIT PO weekly for saturdays, CAP 11/04/18 Omeprazole* (Omeprazole*) 20 Mg Capsule.dr, 20 MG PO DAILY, #30 CAP 11/04/18 Aspirin* (Aspirin* EC) 81 Mg Tablet.dr, 81 MG PO DAILY, TAB 11/04/18 Gabapentin* (Gabapentin*) 300 Mg Capsule, 300 MG PO BID, #60 CAP 11/04/18 Nebivolol Hcl* (Bystolic*) 20 Mg Tablet, 20 MG PO DAILY, #30 TAB 11/04/18 Atorvastatin Calcium* (Atorvastatin Calcium*) 20 Mg Tablet, 20 MG PO QHS, #30 TAB 11/04/18 Sulfasalazine (Azulfidine) 500 Mg Tab, 1000 MG PO TID, TAB 06/02/14 Medications Current Medications Ergocalciferol (Drisdol) 50,000 unit Sa PO Last administered on 12/07/18at 08:55; Admin Dose 50,000 UNIT; Start 11/09/18 at 09:00 Miscellaneous Medication (Bystolic) 20 mg DAILY PO Last administered on 11/11/18 09:03; Admin Dose 20 MG; Start 11/04/18 at 09:00; Status Hold Clonidine (Catapres) 0.1 mg Q6H PRN PO SBP>160 Last administered on 11/19/18 03:04; Admin Dose 0.1 MG; Start 11/04/18 at 09:00 IV Flush (NS 3 ml) 3 ml PER PROTOCOL IV ; Start 11/04/18 at 09:00 Ondansetron HCl (Zofran Inj) 4 mg Q6H PRN IV NAUSEA/VOMITING; Start 11/04/18 at 09:00 Acetaminophen (Tylenol Tab) 650 mg Q6H PRN PO .PAIN 1-3 OR TEMP Last administered on 12/07/18 06:21; Admin Dose 650 MG; Start 11/04/18 at 09:00 Miscellaneous Information 1 ea NOTE XX ; Start 11/04/18 at 09:00 Glucose (Glutose) 15 gm Q15M PRN PO DECREASED GLUCOSE; Start 11/04/18 at 09:00 Glucose (Glutose) 22.5 gm Q15M PRN PO DECREASED GLUCOSE; Start 11/04/18 at 09:00 Dextrose (D50w Syringe) 25 ml Q15M PRN IV DECREASED GLUCOSE; Start 11/04/18 at 09:00 Dextrose (D50w Syringe) 50 ml Q15M PRN IV DECREASED GLUCOSE; Start 11/04/18 at 09:00 Glucagon (Glucagen) 1 mg Q15M PRN IM DECREASED GLUCOSE; Start 11/04/18 at 09:00 Glucose (Glutose) 15 gm Q15M PRN BUCCAL DECREASED GLUCOSE; Start 11/04/18 at 09:00 Miscellaneous Information Patients own medicat... BID@10,16 XX Last admini stered on 11/20/18at 16:16; Admin Dose 1 EA; Start 11/04/18 at 16:00 Sodium Hypochlorite (Dakins Diluted ()) 1 applic BID TP Last administered on 12/07/18 08:18; Admin Dose 1 APPLIC; Start 11/07/18 at 09:00 Hydralazine HCl (Apresoline) 10 mg Q4H PRN IV sbp >160 Last administered on 11/20/18at 14:44; Admin Dose 10 MG; Start 11/08/18 at 09:00 Atropine Sulfate (Atropine) 0.5 mg PRN PRN IV SYMPTOMATIC BRADYCARDIA; Start 11/11/18 at 23:00 Heparin Sodium (Porcine) (Heparin (5000 Units/1ml)) 5,000 unit BID SC Last administered on 12/07/18 08:15; Admin Dose 5,000 UNIT; Start 11/14/18 at 21:00 Bisacodyl (Dulcolax Supp) 10 mg DAILY PRN [place] CONSTIPATION Last administered on 11/14/18 16:43; Admin Dose 10 MG; Start 11/14/18 at 16:30 IV Flush (NS 10 ml) 10 ml PRN PRN IV FLUSH LINE; Start 11/15/18 at 15:30 Gabapentin (Neurontin Liquid) 300 mg BID PO Last administered on 12/07/18 08:16; Admin Dose 300 MG; Start 11/18/18 at 21:00 Diagnostic Test (Pha) (Accu-Chek) 1 ea 02 XX Last administered on 12/07/18 02:17; Admin Dose 1 EA; Start 11/20/18 at 02:00 Ascorbic Acid (Vitamin C) 500 mg DAILY PO Last administered on 12/07/18 08:16; Admin Dose 500 MG; Start 11/20/18 at 09:00 Zinc Sulfate (Zinc Sulfate) 220 mg DAILY PO Last administered on 12/07/18 08:16; Admin Dose 220 MG; Start 11/20/18 at 09:00 Atorvastatin Calcium (Lipitor) 80 mg QHS PO Last administered on 12/06/18 20:21; Admin Dose 80 MG; Start 11/19/18 at 21:00 Lorazepam (Ativan) 0.5 mg Q6H PRN IV anxiety/agitation Last administered on 11/22/18 19:32; Admin Dose 0.5 MG; Start 11/22/18 at 11:00 Clopidogrel Bisulfate (plaVIX) 75 mg DAILY PO Last administered on 12/07/18 08:16; Admin Dose 75 MG; Start 11/23/18 at 09:00 Haloperidol (Haldol) 5 mg Q12H PRN IM agitation Last administered on 11/22/18 19:44; Admin Dose 5 MG; Start 11/22/18 at 14:30 Quetiapine Fumarate (Seroquel) 25 mg QHS PO Last administered on 12/06/18at 20:2 1; Admin Dose 25 MG; Start 11/26/18 at 21:00 Hydralazine HCl (Apresoline) 25 mg TID PO Last administered on 11/28/18at 21:08; Admin Dose 25 MG; Start 11/28/18 at 13:00; Status Hold Polyethylene Glycol (Miralax) 17 gm DAILY PRN PO constipation Last administered on 12/06/18at 06:10; Admin Dose 17 GM; Start 11/29/18 at 08:02 Aspirin (Aspirin) 81 mg DAILY PO Last administered on 12/07/18at 08:16; Admin Dose 81 MG; Start 11/29/18 at 09:00 Famotidine (Pepcid) 20 mg DAILY PO Last administered on 12/07/18at 08:16; Admin Dose 20 MG; Start 11/29/18 at 09:00 Senna/Docusate Sodium (Senokot-S) 1 tab BID PRN PO constipation; Start 11/29/18 at 08:30 Insulin Aspart (Novolog Insulin Pen) NOVOLOG *MILD* ALGORITHM WITH MEALS BEDTIME SC Last administered on 12/07/18at 08:14; Admin Dose 3 UNIT; Start 12/02/18 at 18:05 Lisinopril (Zestril) 2.5 mg DAILY PO Last administered on 12/06/18at 08:43; Admin Dose 2.5 MG; Start 12/03/18 at 09:00 Furosemide (Lasix) 20 mg DAILY@0600 PO Last administered on 12/07/18at 06:25; Admin Dose 20 MG; Start 12/04/18 at 10:30 Linezolid (Zyvox) 600 mg BID PO Last administered on 12/07/18at 08:16; Admin Dose 600 MG; Start 12/06/18 at 14:00 Insulin Aspart (Novolog Insulin Pen) 6 unit WITH MEALS SC ; Start 12/07/18 at 11:30 Insulin Glargine (Lantus) 30 units DAILY@0800 SC ; Start 12/08/18 at 08:00 Assessment/Plan Hospital Course (Demo Recall) 1. Preoperative evaluation prior to possible need for peripheral revascularization surgery.-neg trop x 3 and NL EF by echo with no sig valve abnl - s/p decomp[ensation and CODE Blue - pt was rossana last night, now in sinus -now extubated., more alert, HR controlled. Will monitor now - no focal symptoms. Less agitated - confused - not in pain. Now encephalopathic - will monitor for now. Less agitated - comfortable now. Much better overall- not in CHF by exam. 2. Peripheral arterial disease with nonhealing gangrenous changes in left toe ulceration - post op now. Treated. Post op. Site looks well. No edema. 3. Hypertension, under reasonable control on current medications. NOW stable. Will allow fpr now. BETTER now. Controlled. 4. Dyslipidemia. 5. Diabetes mellitus- con't to keep euglycemic - on meds. Euglycemic now. 6. s/p cardiopulmonary arrest - con't resp Rx - pulmonary follows - reasonable saturation now Now in sinus. 7. Bradycardic intermittent by tele - now back to sinus - will monitor - dopa gtt if sustained rossana. Now stable. NO indication for pacer now - HR well maintained now. 8. Positive troponin after arrest-? secondary to or primary to arrest - no intervention planned now. 9. Anemia - H/H stableat 11. - no bleeding now, Stable. 10. AMS - will check ECHO r/o large veg per ID rec - ECHO showed no obvious vegetation. On anti-bx now. RAJI BROWNE MD Dec 07, 2018 12:13
[2018-12-07 14:56] VITALS: BP 127/76; PULSE 93; RESP 19
--- NOTE | 2018-12-07 16:25 | CONS ---
Assessment/Plan Assessment/Plan Hospital Course (Demo Recall) ID PROGRESS NOTE CURRENT ABX: DAY # => Zyvox #2 S/P Levaquin + Merrem + Diflucan S/P Daptomycin + Ceftriaxone POD #-> s/p 11/22/18 FOOT DEBRIDEMENT * ANAEROBIC CULTURE Final NO GROWTH AFTER 3 DAYS * WOUND CULTURE Final No growth after 3 days 24H INTERVAL SUMMARY * Started on Zyvox for VRE groin wound ==> Left groin wound vac in place * Patient is a vasculopath with carotid, coronary, peripheral arterial disease MICRO * 12/05/18 BCX (-) * 12/04/18 GROIN CX: WOUND CULTURE Final Organism 1 COAGULASE NEGATIVE STAPH QUANTITY 1+ Organism 2 ENTEROCOC CASSELIFLAVUS(GRP D) QUANTITY SCANT GROWTH RE: ENTEROCOCCUS CASSELIFLAVUS VanC genotype resistance is an intrinsic characteristic of Enterococcus gallinarum and Enterococcus casseliflavus strain, not a true Vancomycin reistant enterococcus (VRE). The need to differentiate VanC strain is clinically significant for therapeutic infection control and surveillance reason. REGINA SHIPLEY(Bonnie) M.I.C. RX M.I.C. RX --------- --- --------- --- AMPICILLIN <=2 S CEFAZOLIN R CIPROFLOXACIN >=8 R CLINDAMYCIN <=0.25 S DOXYCYCLINE S ERYTHROMYCIN >=8 R LEVOFLOXACIN >=8 R OXACILLIN >=4 R PENICILLIN-G >=0.5 R 2 S RIFAMPIN <=0.5 S VANCOMYCIN 1 S R * 12/02/18 BCx 1/2 CoNS * 11/14/18 TRACH CX: RESPIRATORY CULTURE Final Organism 1 ALEX ALBICANS QUANTITY SCANT GROWTH Organism 2 NORMAL RESPIRATORY LEO QUANTITY SCANT GROWTH * 11/11/18 TOE WOUND CX WOUND CULTURE Final Organism 1 K PNEUMO ESBL QUANTITY 4+ . MULTI DRUG RESISTANT ORGANISM Organism 2 STENOTROPHOMONAS MALTOPHILIA QUANTITY 4+ KLEB PNEUM KLEB PNEUM STENMAL M.I.C. RX M.I.C. RX M.I.C. RX --------- --- --------- --- --------- --- AMIKACIN 16 S CEFAZOLIN R CEFEPIME >=64 R CEFOTAXIME R CIPROFLOXACIN >=4 R GENTAMICIN >=16 R LEVOFLOXACIN I 0.5 S MEROPENEM 0.064 S TOBRAMYCIN >=16 R TRIMETHOPRIM/SULFAMETHOXAZOLE >=320 R <=20 S PIPERACILLIN/TAZOBACTAM 32 I DIAGNOSTIC IMAGING * 11/20/18 MRI BRAIN: IMPRESSION: Punctate acute infarct in the left posterior frontal lobe. Hypodense focus in the right thalamus on the comparison CT corresponds to an old lacunar infarct. Additional old infarcts in the bilateral frontal lobes and jennifer. Background parenchymal volume loss with chronic microvascular ischemic disease. Bilateral mastoid effusions. * 11/20/18 CAROTID US: Slightly increased velocity in the left proximal ICA, suspicious for a 50-69% stenosis. - validated velocity measurements with angiographic measurements, velocity criteria are extrapolated from diameter data as defined by the Society of Radiologists in Ultrasound Consensus Conference Radiology 2003; 229;340-346. This study does indirectly reference the measurement of the distal ICA diameter as the denominator for stenosis measurement. Normal antegrade flow in the vertebral arteries bilaterally. Mild to moderate calcific plaque bilaterally, left greater than right. * 11/19/18 CT BRAIN: CT of the brain yesterday revealed new 8 mm infarct in the left thalamus no acute intracranial hemorrhage. Please see full note in the chart * 11/08/18 CXR: Worsening diffuse bilateral reticular nodular infiltrates. PHYSICAL EXAMINATION = GENERAL: VSS, NAD HEENT: AT, NC, NECK: Supple, CHEST: Rise symmetrical HEART: Pulse RRR ABDOMEN: Benign EXTREMITIES: Warm, dry == left foot DSG C/D/I SKIN: No rash, no diaphoresis ID ASSESSMENT 72 yo M admit with: 1. Left foot gangrene * POD -> s/p 11/22/18 FOOT DEBRIDEMENT * WOUND CULTURE Preliminary No growth after 1 day 2. Peripheral arterial disease * POD #-> S/P 11/08/18 Left femoral endarterectomy w/Left iliofemoral bypass, and Left femoral->posterior tibial bypass * Started on Zyvox for VRE groin wound ==> Left groin wound vac in place 3. Diffuse pulmonary infiltrates == DDx CHF (STG I diastolic HF) w/possible s uperimposed HCAP * Per discussion w/Dr Ardon CT shares appearance of septic emboli 4. Hypertension w/HTN heart disease 5. Diabetes w/complications of peripheral neuropathy, vasculopathy 6. History of left foot second toe amputation 7. Acute kidney injury due to "NAVID" contrast induced necropathy post angiogram 8. Acute encephalopathy w/CT & MRI findings of new CVA superimposed on old prior infarcts 9. s/p Bilateral mastoiditis (-)MRSA Nares ABX ALLERGIES: KNDA INVASIVES: PIV CURRENT ABX: DAY # Zyvox #2 S/P Levaquin + Merrem + Diflucan S/P Daptomycin + Ceftriaxone ID RECOMMENDATIONS/PLAN: 1. Started on Zyvox for VRE groin wound ==> Left groin wound vac in place . Consultation Date/Type/Reason Admit Date/Time Nov 04, 2018 at 07:34 Initial Consult Date Requesting Provider: KARL WOOD MD Date/Time of Note DATE: 12/07/18 TIME: 16:17 Exam/Review of Systems Exam Vitals Vital Signs Date Temp Pulse Resp B/P (MAP) Pulse Ox O2 O2 Flow FiO2 Time Delivery Rate 12/07/18 97.7 93 19 127/76 97 Room Air 14:56 (93) Intake and Output 12/06/18 12/06/18 12/07/18 1515:00 23:00 07:00 IntakeIntake Total 900 ml 300 ml 1000 ml BalanceBalance 900 ml 300 ml 1000 ml Results Result Diagram: 12/07/18 0522 12/07/18 0522 Results 24hrs Laboratory Tests Test 12/06/18 16:48 12/06/18 20:29 12/07/18 02:25 12/07/18 05:22 Bedside Glucose 262 H 302 H 218 White Blood Count 4.9 Red Blood Count 3.65 L Hemoglobin 11.0 L Hematocrit 33.6 L Mean Corpuscular 92.1 Volume Mean Corpuscular 30.1 Hemoglobin Mean Corpuscular 32.7 Hemoglobin Concent Red Cell 13.5 Distribution Width Platelet Count 193 Mean Platelet Volume 11.0 H Immature 0.200 Granulocytes % Neutrophils % 45.5 Lymphocytes % 34.6 Monocytes % 11.7 H Eosinophils % 7.2 H Basophils % 0.8 Nucleated Red Blood 0.0 Cells % Immature 0.010 Granulocytes # Neutrophils # 2.2 Lymphocytes # 1.7 Monocytes # 0.6 Eosinophils # 0.4 Basophils # 0.0 Nucleated Red Blood 0.0 Cells # Sodium Level 134 L Potassium Level 4.9 Chloride Level 99 Carbon Dioxide Level 27 Anion Gap 8 Blood Urea Nitrogen 24 H Creatinine 0.96 Est Glomerular Filtrat Rate mL/min Glucose Level 247 H Calcium Level 8.9 Phosphorus Level 3.9 Magnesium Level 1.8 Test 12/07/18 08:10 12/07/18 12:12 Bedside Glucose 239 H 328 H Medications Medication Current Medications Ergocalciferol (Drisdol) 50,000 unit Sa PO Last administered on 12/07/18at 08:55; Admin Dose 50,000 UNIT; Start 11/09/18 at 09:00 Miscellaneous Medication (Bystolic) 20 mg DAILY PO Last administered on 11/11/18at 09:03; Admin Dose 20 MG; Start 11/04/18 at 09:00; Status Hold Clonidine (Catapres) 0.1 mg Q6H PRN PO SBP>160 Last administered on 11/19/18at 03:04; Admin Dose 0.1 MG; Start 11/04/18 at 09:00 IV Flush (NS 3 ml) 3 ml PER PROTOCOL IV ; Start 11/04/18 at 09:00 Ondansetron HCl (Zofran Inj) 4 mg Q6H PRN IV NAUSEA/VOMITING; Start 11/04/18 at 09:00 Acetaminophen (Tylenol Tab) 650 mg Q6H PRN PO .PAIN 1-3 OR TEMP Last administered on 12/07/18at 06:21; Admin Dose 650 MG; Start 11/04/18 at 09:00 Miscellaneous Information 1 ea NOTE XX ; Start 11/04/18 at 09:00 Glucose (Glutose) 15 gm Q15M PRN PO DECREASED GLUCOSE; Start 11/04/18 at 09:00 Glucose (Glutose) 22.5 gm Q15M PRN PO DECREASED GLUCOSE; Start 11/04/18 at 09:00 Dextrose (D50w Syringe) 25 ml Q15M PRN IV DECREASED GLUCOSE; Start 11/04/18 at 09:00 Dextrose (D50w Syringe) 50 ml Q15M PRN IV DECREASED GLUCOSE; Start 11/04/18 at 09:00 Glucagon (Glucagen) 1 mg Q15M PRN IM DECREASED GLUCOSE; Start 11/04/18 at 09:00 Glucose (Glutose) 15 gm Q15M PRN BUCCAL DECREASED GLUCOSE; Start 11/04/18 at 09:00 Miscellaneous Information Patients own medicat... BID@10,16 XX Last administered on 11/20/18 16:16; Admin Dose 1 EA; Start 11/04/18 at 16:00 Sodium Hypochlorite (Dakins Diluted ()) 1 applic BID TP Last administered on 12/07/18 08:18; Admin Dose 1 APPLIC; Start 11/07/18 at 09:00 Hydralazine HCl (Apresoline) 10 mg Q4H PRN IV sbp >160 Last administered on 11/20/18at 14:44; Admin Dose 10 MG; Start 11/08/18 at 09:00 Atropine Sulfate (Atropine) 0.5 mg PRN PRN IV SYMPTOMATIC BRADYCARDIA; Start 11/11/18 at 23:00 Heparin Sodium (Porcine) (Heparin (5000 Units/1ml)) 5,000 unit BID SC Last administered on 12/07/18 08:15; Admin Dose 5,000 UNIT; Start 11/14/18 at 21:00 Bisacodyl (Dulcolax Supp) 10 mg DAILY PRN [place] CONSTIPATION Last administered on 11/14/18at 16:43; Admin Dose 10 MG; Start 11/14/18 at 16:30 IV Flush (NS 10 ml) 10 ml PRN PRN IV FLUSH LINE; Start 11/15/18 at 15:30 Gabapentin (Neurontin Liquid) 300 mg BID PO Last administered on 12/07/18 08:16; Admin Dose 300 MG; Start 11/18/18 at 21:00 Diagnostic Test (Pha) (Accu-Chek) 1 ea 02 XX Last administered on 12/07/18at 02:17; Admin Dose 1 EA; Start 11/20/18 at 02:00 Ascorbic Acid (Vitamin C) 500 mg DAILY PO Last administered on 12/07/18at 08:16; Admin Dose 500 MG; Start 11/20/18 at 09:00 Zinc Sulfate (Zinc Sulfate) 220 mg DAILY PO Last administered on 12/07/18 08:16; Admin Dose 220 MG; Start 11/20/18 at 09:00 Atorvastatin Calcium (Lipitor) 80 mg QHS PO Last administered on 12/06/18 20:21; Admin Dose 80 MG; Start 11/19/18 at 21:00 Lorazepam (Ativan) 0.5 mg Q6H PRN IV anxiety/agitation Last administered on 11/22/18 19:32; Admin Dose 0.5 MG; Start 11/22/18 at 11:00 Clopidogrel Bisulfate (plaVIX) 75 mg DAILY PO Last administered on 12/07/18 08:16; Admin Dose 75 MG; Start 11/23/18 at 09:00 Haloperidol (Haldol) 5 mg Q12H PRN IM agitation Last administered on 11/22/18 19:44; Admin Dose 5 MG; Start 11/22/18 at 14:30 Quetiapine Fumarate (Seroquel) 25 mg QHS PO Last administered on 12/06/18 20:21; Admin Dose 25 MG; Start 11/26/18 at 21:00 Hydralazine HCl (Apresoline) 25 mg TID PO Last administered on 11/28/18 21:08; Admin Dose 25 MG; Start 11/28/18 at 13:00; Status Hold Polyethylene Glycol (Miralax) 17 gm DAILY PRN PO constipation Last administered on 12/06/18 06:10; Admin Dose 17 GM; Start 11/29/18 at 08:02 Aspirin (Aspirin) 81 mg DAILY PO Last administered on 12/07/18 08:16; Admin Dose 81 MG; Start 11/29/18 at 09:00 Famotidine (Pepcid) 20 mg DAILY PO Last administered on 12/07/18 08:16; Admin Dose 20 MG; Start 11/29/18 at 09:00 Senna/Docusate Sodium (Senokot-S) 1 tab BID PRN PO constipation; Start 11/29/18 at 08:30 Insulin Aspart (Novolog Insulin Pen) NOVOLOG *MILD* ALGORITHM WITH MEALS BEDTIME SC Last administered on 12/07/18 12:15; Admin Dose 5 UNIT; Start 12/02/18 at 18:05 Lisinopril (Zestril) 2.5 mg DAILY PO Last administered on 12/06/18at 08:43; Admin Dose 2.5 MG; Start 12/03/18 at 09:00 Furosemide (Lasix) 20 mg DAILY@0600 PO Last administered on 12/07/18at 06:25; Admin Dose 20 MG; Start 12/04/18 at 10:30 Linezolid (Zyvox) 600 mg BID PO Last administered on 12/07/18at 08:16; Admin Dose 600 MG; Start 12/06/18 at 14:00 Insulin Aspart (Novolog Insulin Pen) 6 unit WITH MEALS SC Last administered on 12/07/18at 12:14; Admin Dose 6 UNIT; Start 12/07/18 at 11:30 Insulin Glargine (Lantus) 30 units DAILY@0800 SC ; Start 12/08/18 at 08:00 NESS MUNOZ NP Dec 07, 2018 16:25
[2018-12-07 20:00] VITALS: BP 128/75; PULSE 97; RESP 19
[2018-12-07] MEDS: ATORVASTATIN 80 MG TAB PO SCH (20:49)
[2018-12-07] MEDS: QUETIAPINE 25 MG TAB PO SCH (20:49)
[2018-12-08] MEDS: ACCU-CHEK XX SCH (01:57)
[2018-12-08 02:00] VITALS: BP 98/52; PULSE 101; RESP 18
[2018-12-08] MEDS: ACETAMINOPHEN 325 MG TAB PO PRN ×2 (04:51→22:53)
[2018-12-08] MEDS: FUROSEMIDE 20 MG TAB PO SCH (05:00)
[2018-12-08 05:01] VITALS: BP 134/71; PULSE 87
[2018-12-08] MEDS: INSULIN GLARGINE [LANTus] (100 UNITS/ML) SYG SC SCH (08:08)
[2018-12-08] MEDS: INSULIN ASPART [NOVOLOG] 3 ML PEN SC SCH ×7 (08:09→21:00)
[2018-12-08] MEDS: HEPARIN 5,000 UNIT/1 ML VIAL SC SCH ×2 (08:11→20:47)
[2018-12-08 08:25] VITALS: BP 100/66; PULSE 90; RESP 19
[2018-12-08] MEDS: ASPIRIN 81 MG TAB PO SCH (08:25)
[2018-12-08] MEDS: CLOPIDOGREL 75 MG TAB PO SCH (08:26)
[2018-12-08] MEDS: FAMOTIDINE 20 MG TAB PO SCH (08:26)
[2018-12-08] MEDS: GABAPENTIN (50 MG/ML PO SYG) PO SCH ×2 (08:26→20:46)
[2018-12-08] MEDS: ZYVOX 600 MG TAB PO SCH ×2 (08:26→20:46)
[2018-12-08] MEDS: ZINC SULFATE 220 MG CAP PO SCH (08:26)
[2018-12-08] MEDS: ASCORBIC ACID 500 MG TAB PO SCH (08:26)
[2018-12-08] MEDS: LISINOPRIL 5 MG TAB PO SCH ×2 (09:00→15:21)
--- NOTE | 2018-12-08 11:20 | PN ---
Date/Time of Note Date/Time of Note DATE: 12/08/18 TIME: 11:19 Objective Vitals Vital Signs Date Temp Pulse Resp B/P (MAP) Pulse Ox O2 O2 Flow FiO2 Time Delivery Rate 12/08/18 97.8 90 19 100/66 95 Room Air 08:25 (77) Intake and Output 12/07/18 12/07/18 12/08/18 1515:00 23:00 07:00 IntakeIntake Total 1200 ml BalanceBalance 1200 ml Results Result Diagram: 12/07/1852112/07/18521 Medications Medications Current Medications Ergocalciferol (Drisdol) 50,000 unit Sa PO Last administered on 12/07/18at 08:55; Admin Dose 50,000 UNIT; Start 11/09/18 at 09:00 Miscellaneous Medication (Bystolic) 20 mg DAILY PO Last administered on 11/11/18at 09:03; Admin Dose 20 MG; Start 11/04/18 at 09:00; Status Hold Clonidine (Catapres) 0.1 mg Q6H PRN PO SBP>160 Last administered on 11/19/18at 03:04; Admin Dose 0.1 MG; Start 11/04/18 at 09:00 IV Flush (NS 3 ml) 3 ml PER PROTOCOL IV ; Start 11/04/18 at 09:00 Ondansetron HCl (Zofran Inj) 4 mg Q6H PRN IV NAUSEA/VOMITING; Start 11/04/18 at 09:00 Acetaminophen (Tylenol Tab) 650 mg Q6H PRN PO .PAIN 1-3 OR TEMP Last administered on 12/08/18at 04:51; Admin Dose 650 MG; Start 11/04/18 at 09:00 Miscellaneous Information 1 ea NOTE XX ; Start 11/04/18 at 09:00 Glucose (Glutose) 15 gm Q15M PRN PO DECREASED GLUCOSE; Start 11/04/18 at 09:00 Glucose (Glutose) 22.5 gm Q15M PRN PO DECREASED GLUCOSE; Start 11/04/18 at 09:00 Dextrose (D50w Syringe) 25 ml Q15M PRN IV DECREASED GLUCOSE; Start 11/04/18 at 09:00 Dextrose (D50w Syringe) 50 ml Q15M PRN IV DECREASED GLUCOSE; Start 11/04/18 at 09:00 Glucagon (Glucagen) 1 mg Q15M PRN IM DECREASED GLUCOSE; Start 11/04/18 at 09:00 Glucose (Glutose) 15 gm Q15M PRN BUCCAL DECREASED GLUCOSE; Start 11/04/18 at 09:00 Miscellaneous Information Patients own medicat... BID@10,16 XX Last administered on 11/20/18 16:16; Admin Dose 1 EA; Start 11/04/18 at 16:00 Sodium Hypochlorite (Dakins Diluted ()) 1 applic BID TP Last administered on 12/07/18 20:54; Admin Dose 1 APPLIC; Start 11/07/18 at 09:00 Hydralazine HCl (Apresoline) 10 mg Q4H PRN IV sbp >160 Last administered on 11/20/18 14:44; Admin Dose 10 MG; Start 11/08/18 at 09:00 Atropine Sulfate (Atropine) 0.5 mg PRN PRN IV SYMPTOMATIC BRADYCARDIA; Start 11/11/18 at 23:00 Heparin Sodium (Porcine) (Heparin (5000 Units/1ml)) 5,000 unit BID SC Last administered on 12/08/18 08:11; Admin Dose 5,000 UNIT; Start 11/14/18 at 21:00 Bisacodyl (Dulcolax Supp) 10 mg DAILY PRN [place] CONSTIPATION Last administered on 11/14/18 16:43; Admin Dose 10 MG; Start 11/14/18 at 16:30 IV Flush (NS 10 ml) 10 ml PRN PRN IV FLUSH LINE; Start 11/15/18 at 15:30 Gabapentin (Neurontin Liquid) 300 mg BID PO Last administered on 12/08/18 08:26; Admin Dose 300 MG; Start 11/18/18 at 21:00 Diagnostic Test (Pha) (Accu-Chek) 1 ea 02 XX Last administered on 12/08/18 01:57; Admin Dose 1 EA; Start 11/20/18 at 02:00 Ascorbic Acid (Vitamin C) 500 mg DAILY PO Last administered on 12/08/18 08:26; Admin Dose 500 MG; Start 11/20/18 at 09:00 Zinc Sulfate (Zinc Sulfate) 220 mg DAILY PO Last administered on 12/08/18 08:26; Admin Dose 220 MG; Start 11/20/18 at 09:00 Atorvastatin Calcium (Lipitor) 80 mg QHS PO Last administered on 12/07/18 20:49; Admin Dose 80 MG; Start 11/19/18 at 21:00 Lorazepam (Ativan) 0.5 mg Q6H PRN IV anxiety/agitation Last administered on 11/22/18 19:32; Admin Dose 0.5 MG; Start 11/22/18 at 11:00 Clopidogrel Bisulfate (plaVIX) 75 mg DAILY PO Last administered on 12/08/18 08:26; Admin Dose 75 MG; Start 11/23/18 at 09:00 Haloperidol (Haldol) 5 mg Q12H PRN IM agitation Last administered on 11/22/18 19:44; Admin Dose 5 MG; Start 11/22/18 at 14:30 Quetiapine Fumarate (Seroquel) 25 mg QHS PO Last administered on 12/07/18 20:49; Admin Dose 25 MG; Start 11/26/18 at 21:00 Hydralazine HCl (Apresoline) 25 mg TID PO Last administered on 11/28/18 21:08; Admin Dose 25 MG; Start 11/28/18 at 13:00; Status Hold Polyethylene Glycol (Miralax) 17 gm DAILY PRN PO constipation Last administered on 12/06/18 06:10; Admin Dose 17 GM; Start 11/29/18 at 08:02 Aspirin (Aspirin) 81 mg DAILY PO Last administered on 12/08/18 08:25; Admin Dose 81 MG; Start 11/29/18 at 09:00 Famotidine (Pepcid) 20 mg DAILY PO Last administered on 12/08/18 08:26; Admin Dose 20 MG; Start 11/29/18 at 09:00 Senna/Docusate Sodium (Senokot-S) 1 tab BID PRN PO constipation; Start 11/29/18 at 08:30 Insulin Aspart (Novolog Insulin Pen) NOVOLOG *MILD* ALGORITHM WITH MEALS BEDTIME SC Last administered on 12/08/18 08:10; Admin Dose 3 UNIT; Start 12/02/18 at 18:05 Lisinopril (Zestril) 2.5 mg DAILY PO Last administered on 12/06/18 08:43; Admin Dose 2.5 MG; Start 12/03/18 at 09:00 Furosemide (Lasix) 20 mg DAILY@0600 PO Last administered on 12/08/18at 05:00; Admin Dose 20 MG; Start 12/04/18 at 10:30 Linezolid (Zyvox) 600 mg BID PO Last administered on 12/08/18at 08:26; Admin Dose 600 MG; Start 12/06/18 at 14:00 Insulin Glargine (Lantus) 30 units DAILY@0800 SC Last administered on 12/08/18at 08:08; Admin Dose 30 UNITS; Start 12/08/18 at 08:00 Insulin Aspart (Novolog Insulin Pen) 9 unit WITH MEALS SC ; Start 12/08/18 at 11:30 VTE Prophylaxis Risk score (from Ns)>0 risk: 4 SCD applied (from [facility]): No SCD contraindication: other Lines/Catheters IV Catheter Type: Schneider in Place: No Assessment/Plan Hospital Course Subjective Patient doing well Objective Physical exam General: Patient is laying in bed responding to questions appropriately Mentation: Patient is alert and oriented Head: Normocephalic atraumatic Eyes: EOMI, pupils reactive to light Neck: Supple, nontender, midline Respiratory: Coarse to auscultation bilaterally Cardiovascular: regular rate, no obvious murmurs Gastrointestinal: non-tender to palpation, bowel sounds heard. Neurological: Moves all extremities spontaneously Skin: No new skin lesions, surgical site bandaged, CDI Assessment/Plan Questionable bacteremia, resolved -Questionable to bacteremia, infectious disease will be back on board -IV vancomycin held per infectious disease, cultures cw contaminent Fungal UTI -fluconazole per id now stopped -Infectious disease recommendations appreciated Drainage from surgical site and groin area -Wound VAC placed -Vascular surgery and wound care to reevaluate patient over the weekend, may need further intervention if draining does not subside groin wound infection, enteroococcus and coag neg staph -on Zyvox, ID to adjust as needed. 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 Completed course of antibiotics - Continue local wound care - Podiatry on board and appreciate consultation. no further procedures scheduled at this time Left frontal CVA - Neurology on board and appreciate recommendations - continue on aspirin and Plavix and statin left-sided internal carotid artery stenosis - 25% per CT angiogram, continue aspirin, statin, Plavix per vascular surgeon Acute hypoxic respiratory failure-resolved - doing well on room air - Pulmonology consultation appreciated Cardiac arrest s/p ROSC - Cardiology on board and appreciate recommendations - ECHO with preserved EF Severe peripheral vascular disease - s/p left femoral endarterectomy, iliofemoral bypass and femoral to posterior tibial bypass done on November 08, 2018 - Vascular surgery consultation appreciated. Continue aspirin and Plavix Diabetes Mellitus - A1c noted - continue lantus and ISS. adjust as needed Acute kidney injury- resolved - nephrology consultation appreciated Essential HTN - Continue home medications at this time as tolerated Peripheral neuropathy - cont. gabapentin HLD - On statin Chronic anemia - Stable H&H. Monitor - no need for transfusions at this time Urinary retention, resolved - Urology on board and appreciate recommendations. -patient doing well on voiding trial, no schneider acute delerium -resolved. Disposition -We will assess over the weekend per vascular and wound care recommendations as to how much drainage is coming from surgical site, if drainage from surgical site lessens patient will be able to go home with home health PT and wound VAC however if continues to be copious amounts may need further intervention. FRANTZ SCHWAB Dec 08, 2018 11:20
--- NOTE | 2018-12-08 12:01 | CONS ---
Consult Date/Type/Reason Admit Date/Time Nov 04, 2018 at 07:34 Initial Consult Date 11/11/18 Type of Consultation: Pulm Requesting Provider: KARL WOOD MD Date/Time of Note DATE: 12/08/18 TIME: 11:58 Subjective NO acute events - pt comfortable - no CP - in good fluid status ROS: No fever, no chills, no nausea, no vomiting, no diarrhea/constipation No recent weight changes No chest pain, no PND, no orthopnea - mild SOB, much better overall No dizziness, blurred vision No thirst, no heat or cold intolerance Objective Vitals Vital Signs Date Temp Pulse Resp B/P (MAP) Pulse Ox O2 O2 Flow FiO2 Time Delivery Rate 12/08/18 97.8 90 19 100/66 95 Room Air 08:25 (77) Intake and Output 12/07/18 12/07/18 12/08/18 1515:00 23:00 07:00 IntakeIntake Total 1200 ml BalanceBalance 1200 ml Exam General: WN/WD/NAD, AOx 3 HEENT: Unicetric/atraumatic/EOMI (follows commands) NECK: JVD elevated, no thyromegaly Lymph: no lymphadenopathy HEART: regular with no S3, II/ systolic murmur at apex LUNGS: Coarse sounds ABD: soft, NT, ND, +BS : Intact Neuro: non focal SKIN: chronic changes EXT: trace edema, post op Results/Medications Result Diagram: 12/07/1852112/07/18521 Results 24 hrs Laboratory Tests Test 12/07/18 12:12 12/07/18 17:22 12/07/18 20:40 12/08/18 01:55 Bedside Glucose 328 H 144 298 H 235 H Test 12/08/18 08:06 12/08/18 11:51 Bedside Glucose 239 H 367 H Home Meds Active Scripts Silver Sulfadiazine* (Silvadene*) 1% - 20 Gm Cream.gm., 1 APPLIC TOP DAILY, #1 TUB Prov:JESSIE WONG MD 06/12/18 Amoxicillin-Clavulanate K* (Augmentin*) 875 Mg Tab, 875 MG PO BID, #28 TAB Prov:AMANDA GOMEZ MD 06/08/14 Reported Medications Insulin Aspart (Novolog Mix (70/30)) 100 Units/Ml Soln, 28 SC with diinner, VIAL 11/04/18 Insulin Aspart (Novolog Mix (70/30)) 100 Units/Ml Soln, 38 SC WITH BREAKFAST, VIAL 11/04/18 Benazepril Hcl* (Benazepril Hcl*) 40 Mg Tablet, 40 MG PO DAILY, #30 TAB 11/04/18 Ergocalciferol (Vitamin D2) (VITAMIN D2) 50,000 Unit Capsule, 12394 UNIT PO weekly for saturdays, CAP 11/04/18 Omeprazole* (Omeprazole*) 20 Mg Capsule.dr, 20 MG PO DAILY, #30 CAP 11/04/18 Aspirin* (Aspirin* EC) 81 Mg Tablet.dr, 81 MG PO DAILY, TAB 11/04/18 Gabapentin* (Gabapentin*) 300 Mg Capsule, 300 MG PO BID, #60 CAP 11/04/18 Nebivolol Hcl* (Bystolic*) 20 Mg Tablet, 20 MG PO DAILY, #30 TAB 11/04/18 Atorvastatin Calcium* (Atorvastatin Calcium*) 20 Mg Tablet, 20 MG PO QHS, #30 TAB 11/04/18 Sulfasalazine (Azulfidine) 500 Mg Tab, 1000 MG PO TID, TAB 06/02/14 Medications Current Medications Ergocalciferol (Drisdol) 50,000 unit Sa PO Last administered on 12/07/18at 08:55; Admin Dose 50,000 UNIT; Start 11/09/18 at 09:00 Miscellaneous Medication (Bystolic) 20 mg DAILY PO Last administered on 11/11/18at 09:03; Admin Dose 20 MG; Start 11/04/18 at 09:00; Status Hold Clonidine (Catapres) 0.1 mg Q6H PRN PO SBP>160 Last administered on 11/19/18at 03:04; Admin Dose 0.1 MG; Start 11/04/18 at 09:00 IV Flush (NS 3 ml) 3 ml PER PROTOCOL IV ; Start 11/04/18 at 09:00 Ondansetron HCl (Zofran Inj) 4 mg Q6H PRN IV NAUSEA/VOMITING; Start 11/04/18 at 09:00 Acetaminophen (Tylenol Tab) 650 mg Q6H PRN PO .PAIN 1-3 OR TEMP Last administ ered on 12/08/18at 04:51; Admin Dose 650 MG; Start 11/04/18 at 09:00 Miscellaneous Information 1 ea NOTE XX ; Start 11/04/18 at 09:00 Glucose (Glutose) 15 gm Q15M PRN PO DECREASED GLUCOSE; Start 11/04/18 at 09:00 Glucose (Glutose) 22.5 gm Q15M PRN PO DECREASED GLUCOSE; Start 11/04/18 at 09:00 Dextrose (D50w Syringe) 25 ml Q15M PRN IV DECREASED GLUCOSE; Start 11/04/18 at 09:00 Dextrose (D50w Syringe) 50 ml Q15M PRN IV DECREASED GLUCOSE; Start 11/04/18 at 09:00 Glucagon (Glucagen) 1 mg Q15M PRN IM DECREASED GLUCOSE; Start 11/04/18 at 09:00 Glucose (Glutose) 15 gm Q15M PRN BUCCAL DECREASED GLUCOSE; Start 11/04/18 at 09:00 Miscellaneous Information Patients own medicat... BID@10,16 XX Last administered on 11/20/18at 16:16; Admin Dose 1 EA; Start 11/04/18 at 16:00 Sodium Hypochlorite (Dakins Diluted (40)) 1 applic BID TP Last administered on 12/07/18at 20:54; Admin Dose 1 APPLIC; Start 11/07/18 at 09:00 Hydralazine HCl (Apresoline) 10 mg Q4H PRN IV sbp >160 Last administered on 11/20/18at 14:44; Admin Dose 10 MG; Start 11/08/18 at 09:00 Atropine Sulfate (Atropine) 0.5 mg PRN PRN IV SYMPTOMATIC BRADYCARDIA; Start 11/11/18 at 23:00 Heparin Sodium (Porcine) (Heparin (5000 Units/1ml)) 5,000 unit BID SC Last administered on 12/08/18at 08:11; Admin Dose 5,000 UNIT; Start 11/14/18 at 21:00 Bisacodyl (Dulcolax Supp) 10 mg DAILY PRN [place] CONSTIPATION Last administered on 11/14/18at 16:43; Admin Dose 10 MG; Start 11/14/18 at 16:30 IV Flush (NS 10 ml) 10 ml PRN PRN IV FLUSH LINE; Start 11/15/18 at 15:30 Gabapentin (Neurontin Liquid) 300 mg BID PO Last administered on 12/08/18 08:26; Admin Dose 300 MG; Start 11/18/18 at 21:00 Diagnostic Test (Pha) (Accu-Chek) 1 ea 02 XX Last administered on 12/08/18 01:57; Admin Dose 1 EA; Start 11/20/18 at 02:00 Ascorbic Acid (Vitamin C) 500 mg DAILY PO Last administered on 12/08/18 08:26; Admin Dose 500 MG; Start 11/20/18 at 09:00 Zinc Sulfate (Zinc Sulfate) 220 mg DAILY PO Last administered on 12/08/18 08:26; Admin Dose 220 MG; Start 11/20/18 at 09:00 Atorvastatin Calcium (Lipitor) 80 mg QHS PO Last administered on 12/07/18 20:49; Admin Dose 80 MG; Start 11/19/18 at 21:00 Lorazepam (Ativan) 0.5 mg Q6H PRN IV anxiety/agitation Last administered on 11/22/18 19:32; Admin Dose 0.5 MG; Start 11/22/18 at 11:00 Clopidogrel Bisulfate (plaVIX) 75 mg DAILY PO Last administered on 12/08/18 08:26; Admin Dose 75 MG; Start 11/23/18 at 09:00 Haloperidol (Haldol) 5 mg Q12H PRN IM agitation Last administered on 11/22/18 19:44; Admin Dose 5 MG; Start 11/22/18 at 14:30 Quetiapine Fumarate (Seroquel) 25 mg QHS PO Last administered on 12/07/18 20:49; Admin Dose 25 MG; Start 11/26/18 at 21:00 Hydralazine HCl (Apresoline) 25 mg TID PO Last administered on 11/28/18 21:08; Admin Dose 25 MG; Start 11/28/18 at 13:00; Status Hold Polyethylene Glycol (Miralax) 17 gm DAILY PRN PO constipation Last administered on 12/06/18 06:10; Admin Dose 17 GM; Start 11/29/18 at 08:02 Aspirin (Aspirin) 81 mg DAILY PO Last administered on 12/08/18 08:25; Admin Dose 81 MG; Start 11/29/18 at 09:00 Famotidine (Pepcid) 20 mg DAILY PO Last administered on 7/21/19at 08:26; Admin Dose 20 MG; Start 11/29/18 at 09:00 Senna/Docusate Sodium (Senokot-S) 1 tab BID PRN PO constipation; Start 11/29/18 at 08:30 Insulin Aspart (Novolog Insulin Pen) NOVOLOG *MILD* ALGORITHM WITH MEALS BEDTIME SC Last administered on 12/08/18 08:10; Admin Dose 3 UNIT; Start 12/02/18 at 18:05 Lisinopril (Zestril) 2.5 mg DAILY PO Last administered on 12/06/18at 08:43; Admin Dose 2.5 MG; Start 12/03/18 at 09:00 Furosemide (Lasix) 20 mg DAILY@0600 PO Last administered on 12/08/18at 05:00; Admin Dose 20 MG; Start 12/04/18 at 10:30 Linezolid (Zyvox) 600 mg BID PO Last administered on 12/08/18at 08:26; Admin Dose 600 MG; Start 12/06/18 at 14:00 Insulin Glargine (Lantus) 30 units DAILY@0800 SC Last administered on 12/08/18at 08:08; Admin Dose 30 UNITS; Start 12/08/18 at 08:00 Insulin Aspart (Novolog Insulin Pen) 9 unit WITH MEALS SC ; Start 12/08/18 at 11:30 Assessment/Plan Hospital Course (Demo Recall) 1. Preoperative evaluation prior to possible need for peripheral revascularization surgery.-neg trop x 3 and NL EF by echo with no sig valve abnl - s/p decomp[ensation and CODE Blue - pt was rossana last night, now in sinus -now extubated., more alert, Better overall. 2. Peripheral arterial disease with nonhealing gangrenous changes in left toe ulceration - post op now. Treated. Post op. Site looks well. No edema. Con't to improve. 3. Hypertension, under reasonable control on current medications. NOW stable. Will allow fpr now. BETTER now. Controlled. 4. Dyslipidemia. 5. Diabetes mellitus- con't to keep euglycemic - on meds. Euglycemic now. On meds. 6. s/p cardiopulmonary arrest - con't resp Rx - pulmonary follows - reasonable saturation now Now in sinus. 7. Bradycardic intermittent by tele - now back to sinus - will monitor - dopa gtt if sustained rossana. Now stable. NO indication for pacer now - HR well ma intained now. 8. Positive troponin after arrest-? secondary to or primary to arrest - no intervention planned now. 9. Anemia - H/H stableat 11. - no bleeding now, Stable. 10. AMS - will check ECHO r/o large veg per ID rec - ECHO showed no obvious vegetation. On anti-bx now. Con't anti-Bx. RAJI BROWNE MD Dec 08, 2018 12:01
[2018-12-08 14:00] VITALS: BP 125/77; PULSE 95; RESP 19
[2018-12-08] MEDS: DAKINS 0.0125%(1/40) 473 ML SOLUTION TP SCH ×2 (14:45→20:56)
--- NOTE | 2018-12-08 17:11 | CONS ---
Assessment/Plan Assessment/Plan Hospital Course (Demo Recall) ID PROGRESS NOTE CURRENT ABX: DAY # => Zyvox #3 S/P Levaquin + Merrem + Diflucan S/P Daptomycin + Ceftriaxone 12/07/18 0512/07/18 05 POD #-> s/p 11/22/18 FOOT DEBRIDEMENT * ANAEROBIC CULTURE Final NO GROWTH AFTER 3 DAYS * WOUND CULTURE Final No growth after 3 days 24H INTERVAL SUMMARY * CLINICALLY STATUS QUO --- RESTING IN BED, NO COMPLAINTS, NO FEVERS == Started on Zyvox for VRE groin wound ==> Left groin wound vac in place * Patient is a vasculopath with carotid, coronary, peripheral arterial disease MICRO * 12/05/18 BCX (-) * 12/04/18 GROIN CX: WOUND CULTURE Final Organism 1 COAGULASE NEGATIVE STAPH QUANTITY 1+ Organism 2 ENTEROCOC CASSELIFLAVUS(GRP D) QUANTITY SCANT GROWTH RE: ENTEROCOCCUS CASSELIFLAVUS VanC genotype resistance is an intrinsic characteristic of Enterococcus gallinarum and Enterococcus casseliflavus strain, not a true Vancomycin reistant enterococcus (VRE). The need to differentiate VanC strain is clinically significant for therapeutic infection control and surveillance reason. COAG LEONILA SHIPLEY(Bonnie) M.I.C. RX M.I.C. RX --------- --- --------- --- AMPICILLIN <=2 S CEFAZOLIN R CIPROFLOXACIN >=8 R CLINDAMYCIN <=0.25 S DOXYCYCLINE S ERYTHROMYCIN >=8 R LEVOFLOXACIN >=8 R OXACILLIN >=4 R PENICILLIN-G >=0.5 R 2 S RIFAMPIN <=0.5 S VANCOMYCIN 1 S R * 12/02/18 BCx 1/2 CoNS * 11/14/18 TRACH CX: RESPIRATORY CULTURE Final Organism 1 ALEX ALBICANS QUANTITY SCANT GROWTH Organism 2 NORMAL RESPIRATORY LEO QUANTITY SCANT GROWTH * 11/11/18 TOE WOUND CX WOUND CULTURE Final Organism 1 K PNEUMO ESBL QUANTITY 4+ . MULTI DRUG RESISTANT ORGANISM Organism 2 STENOTROPHOMONAS MALTOPHILIA QUANTITY 4+ KLEB PNEUM KLEB PNEUM STENMAL M.I.C. RX M.I.C. RX M.I.C. RX --------- --- --------- --- --------- --- AMIKACIN 16 S CEFAZOLIN R CEFEPIME >=64 R CEFOTAXIME R CIPROFLOXACIN >=4 R GENTAMICIN >=16 R LEVOFLOXACIN I 0.5 S MEROPENEM 0.064 S TOBRAMYCIN >=16 R TRIMETHOPRIM/SULFAMETHOXAZOLE >=320 R <=20 S PIPERACILLIN/TAZOBACTAM 32 I -------- DIAGNOSTIC IMAGING * 11/20/18 MRI BRAIN: IMPRESSION: Punctate acute infarct in the left posterior frontal lobe. Hypodense focus in the right thalamus on the comparison CT corresponds to an old lacunar infarct. Additional old infarcts in the bilateral frontal lobes and jennifer. Background parenchymal volume loss with chronic microvascular ischemic disease. Bilateral mastoid effusions. * 11/20/18 CAROTID US: Slightly increased velocity in the left proximal ICA, suspicious for a 50-69% stenosis. - validated velocity measurements with angiographic measurements, velocity criteria are extrapolated from diameter data as defined by the Society of Radiologists in Ultrasound Consensus Conference Radiology 2003; 229;340-346. This study does indirectly reference the measurement of the distal ICA diameter as the denominator for stenosis measurement. Normal antegrade flow in the vertebral arteries bilaterally. Mild to moderate calcific plaque bilaterally, left greater than right. * 11/19/18 CT BRAIN: CT of the brain yesterday revealed new 8 mm infarct in the left thalamus no acute intracranial hemorrhage. Please see full note in the chart * 11/08/18 CXR: Worsening diffuse bilateral reticular nodular infiltrates. PHYSICAL EXAMINATION = GENERAL: VSS, NAD HEENT: AT, NC, NECK: Supple, CHEST: Rise symmetrical HEART: Pulse RRR ABDOMEN: Benign EXTREMITIES: Warm, dry == left foot DSG C/D/I SKIN: No rash, no diaphoresis ID ASSESSMENT 72 yo M admit with: 1. Left foot gangrene * POD -> s/p 11/22/18 FOOT DEBRIDEMENT * WOUND CULTURE Preliminary No growth after 1 day 2. Peripheral arterial disease * POD #-> S/P 11/08/18 Left femoral endarterectomy w/Left iliofemoral bypass, and Left femoral->posterior tibial bypass * Started on Zyvox for VRE groin wound ==> Left groin wound vac in place 3. Diffuse pulmonary infiltrates == DDx CHF (STG I diastolic HF) w/possible superimposed HCAP * Per discussion w/Dr Ardon CT shares appearance of septic emboli 4. Hypertension w/HTN heart disease 5. Diabetes w/complications of peripheral neuropathy, vasculopathy 6. History of left foot second toe amputation 7. Acute kidney injury due to "NAVID" contrast induced necropathy post angiogram 8. Acute encephalopathy w/CT & MRI findings of new CVA superimposed on old prior infarcts 9. s/p Bilateral mastoiditis (-)MRSA Nares ABX ALLERGIES: KNDA INVASIVES: PIV CURRENT ABX: DAY # Zyvox #3 S/P Levaquin + Merrem + Diflucan S/P Daptomycin + Ceftriaxone ID RECOMMENDATIONS/PLAN: 1. Started on Zyvox for VRE groin wound ==> Left groin wound vac in place . Consultation Date/Type/Reason Admit Date/Time Nov 04, 2018 at 07:34 Initial Consult Date Requesting Provider: KARL WOOD MD Date/Time of Note DATE: 12/08/18 TIME: 17:09 Exam/Review of Systems Exam Vitals Vital Signs Date Temp Pulse Resp B/P (MAP) Pulse Ox O2 O2 Flow FiO2 Time Delivery Rate 12/08/18 97.8 95 19 125/77 100 Room Air 14:00 (93) Intake and Output 12/07/18 12/07/18 12/08/18 1515:00 23:00 07:00 IntakeIntake Total 1200 ml BalanceBalance 1200 ml Results Result Diagram: 12/07/1852112/07/18521 Results 24hrs Laboratory Tests Test 12/07/18 17:22 12/07/18 20:40 12/08/18 01:55 12/08/18 08:06 Bedside Glucose 144 298 H 235 H 239 H Test 12/08/18 11:51 Bedside Glucose 367 H Medications Medication Current Medications Ergocalciferol (Drisdol) 50,000 unit Sa PO Last administered on 12/07/18at 08:55; Admin Dose 50,000 UNIT; Start 6/22/19 at 09:00 Miscellaneous Medication (Bystolic) 20 mg DAILY PO Last administered on 11/11/18 09:03; Admin Dose 20 MG; Start 11/04/18 at 09:00; Status Hold Clonidine (Catapres) 0.1 mg Q6H PRN PO SBP>160 Last administered on 11/19/18 03:04; Admin Dose 0.1 MG; Start 11/04/18 at 09:00 IV Flush (NS 3 ml) 3 ml PER PROTOCOL IV ; Start 11/04/18 at 09:00 Ondansetron HCl (Zofran Inj) 4 mg Q6H PRN IV NAUSEA/VOMITING; Start 11/04/18 at 09:00 Acetaminophen (Tylenol Tab) 650 mg Q6H PRN PO .PAIN 1-3 OR TEMP Last administered on 12/08/18at 04:51; Admin Dose 650 MG; Start 11/04/18 at 09:00 Miscellaneous Information 1 ea NOTE XX ; Start 11/04/18 at 09:00 Glucose (Glutose) 15 gm Q15M PRN PO DECREASED GLUCOSE; Start 11/04/18 at 09:00 Glucose (Glutose) 22.5 gm Q15M PRN PO DECREASED GLUCOSE; Start 11/04/18 at 09:00 Dextrose (D50w Syringe) 25 ml Q15M PRN IV DECREASED GLUCOSE; Start 11/04/18 at 09:00 Dextrose (D50w Syringe) 50 ml Q15M PRN IV DECREASED GLUCOSE; Start 11/04/18 at 09:00 Glucagon (Glucagen) 1 mg Q15M PRN IM DECREASED GLUCOSE; Start 11/04/18 at 09:00 Glucose (Glutose) 15 gm Q15M PRN BUCCAL DECREASED GLUCOSE; Start 11/04/18 at 09:00 Miscellaneous Information Patients own medicat... BID@10,16 XX Last administered on 11/20/18at 16:16; Admin Dose 1 EA; Start 11/04/18 at 16:00 Sodium Hypochlorite (Dakins Diluted ()) 1 applic BID TP Last administered on 12/08/18at 14:45; Admin Dose 1 APPLIC; Start 11/07/18 at 09:00 Hydralazine HCl (Apresoline) 10 mg Q4H PRN IV sbp >160 Last administered on 11/20/18 14:44; Admin Dose 10 MG; Start 11/08/18 at 09:00 Atropine Sulfate (Atropine) 0.5 mg PRN PRN IV SYMPTOMATIC BRADYCARDIA; Start 11/11/18 at 23:00 Heparin Sodium (Porcine) (Heparin (5000 Units/1ml)) 5,000 unit BID SC Last administered on 12/08/18 08:11; Admin Dose 5,000 UNIT; Start 11/14/18 at 21:00 Bisacodyl (Dulcolax Supp) 10 mg DAILY PRN [place] CONSTIPATION Last administered on 11/14/18 16:43; Admin Dose 10 MG; Start 11/14/18 at 16:30 IV Flush (NS 10 ml) 10 ml PRN PRN IV FLUSH LINE; Start 11/15/18 at 15:30 Gabapentin (Neurontin Liquid) 300 mg BID PO Last administered on 12/08/18 08:26; Admin Dose 300 MG; Start 11/18/18 at 21:00 Diagnostic Test (Pha) (Accu-Chek) 1 ea 02 XX Last administered on 12/08/18 01:57; Admin Dose 1 EA; Start 11/20/18 at 02:00 Ascorbic Acid (Vitamin C) 500 mg DAILY PO Last administered on 12/08/18 08:26; Admin Dose 500 MG; Start 11/20/18 at 09:00 Zinc Sulfate (Zinc Sulfate) 220 mg DAILY PO Last administered on 12/08/18 08:26; Admin Dose 220 MG; Start 11/20/18 at 09:00 Atorvastatin Calcium (Lipitor) 80 mg QHS PO Last administered on 12/07/18 20:49; Admin Dose 80 MG; Start 11/19/18 at 21:00 Lorazepam (Ativan) 0.5 mg Q6H PRN IV anxiety/agitation Last administered on 11/22/18 19:32; Admin Dose 0.5 MG; Start 11/22/18 at 11:00 Clopidogrel Bisulfate (plaVIX) 75 mg DAILY PO Last administered on 12/08/18 08:26; Admin Dose 75 MG; Start 11/23/18 at 09:00 Haloperidol (Haldol) 5 mg Q12H PRN IM agitation Last administered on 7/5/19at 19:44; Admin Dose 5 MG; Start 11/22/18 at 14:30 Quetiapine Fumarate (Seroquel) 25 mg QHS PO Last administered on 12/07/18 20:49; Admin Dose 25 MG; Start 11/26/18 at 21:00 Hydralazine HCl (Apresoline) 25 mg TID PO Last administered on 11/28/18 21:08; Admin Dose 25 MG; Start 11/28/18 at 13:00; Status Hold Polyethylene Glycol (Miralax) 17 gm DAILY PRN PO constipation Last administered on 12/06/18 06:10; Admin Dose 17 GM; Start 11/29/18 at 08:02 Aspirin (Aspirin) 81 mg DAILY PO Last administered on 12/08/18 08:25; Admin Dose 81 MG; Start 11/29/18 at 09:00 Famotidine (Pepcid) 20 mg DAILY PO Last administered on 12/08/18 08:26; Admin Dose 20 MG; Start 11/29/18 at 09:00 Senna/Docusate Sodium (Senokot-S) 1 tab BID PRN PO constipation; Start 11/29/18 at 08:30 Insulin Aspart (Novolog Insulin Pen) NOVOLOG *MILD* ALGORITHM WITH MEALS BEDTIME SC Last administered on 12/08/18 12:00; Admin Dose 7 UNIT; Start 12/02/18 at 18:05 Lisinopril (Zestril) 2.5 mg DAILY PO Last administered on 12/08/18 15:21; Admin Dose 2.5 MG; Start 12/03/18 at 09:00 Furosemide (Lasix) 20 mg DAILY@0600 PO Last administered on 12/08/18 05:00; Admin Dose 20 MG; Start 12/04/18 at 10:30 Linezolid (Zyvox) 600 mg BID PO Last administered on 12/08/18 08:26; Admin Dose 600 MG; Start 12/06/18 at 14:00 Insulin Glargine (Lantus) 30 units DAILY@0800 SC Last administered on 12/08/18 08:08; Admin Dose 30 UNITS; Start 12/08/18 at 08:00 Insulin Aspart (Novolog Insulin Pen) 9 unit WITH MEALS SC Last administered on 12/08/18 11:59; Admin Dose 9 UNIT; Start 12/08/18 at 11:30 NESS MUNOZ NP Dec 08, 2018 17:11
[2018-12-08 20:00] VITALS: BP 146/83; PULSE 98; RESP 18
[2018-12-08] MEDS: QUETIAPINE 25 MG TAB PO SCH (20:46)
[2018-12-08] MEDS: ATORVASTATIN 80 MG TAB PO SCH (20:46)
[2018-12-08] MEDS ORDERED: ACCU-CHEK XX ONE (21:00)
[2018-12-08] MEDS ORDERED: INSULIN ASPART [NOVOLOG] 3 ML PEN SC ONE (21:00)
[2018-12-09 02:20] VITALS: BP 106/55; PULSE 89; RESP 18
[2018-12-09] MEDS: ACCU-CHEK XX SCH ×2 (02:39)
[2018-12-09] MEDS: FUROSEMIDE 20 MG TAB PO SCH (06:19)
[2018-12-09 08:00] VITALS: BP 94/60; PULSE 90; RESP 18
[2018-12-09] MEDS: LISINOPRIL 5 MG TAB PO SCH (08:07)
[2018-12-09] MEDS: SENNA/DOCUSATE NA (8.6MG/50MG) TAB PO PRN (08:07)
[2018-12-09] MEDS: FAMOTIDINE 20 MG TAB PO SCH (08:07)
[2018-12-09] MEDS: ZINC SULFATE 220 MG CAP PO SCH (08:07)
[2018-12-09] MEDS: CLOPIDOGREL 75 MG TAB PO SCH (08:07)
[2018-12-09] MEDS: ASCORBIC ACID 500 MG TAB PO SCH (08:07)
[2018-12-09] MEDS: ASPIRIN 81 MG TAB PO SCH (08:08)
[2018-12-09] MEDS: GABAPENTIN (50 MG/ML PO SYG) PO SCH ×2 (08:08→21:10)
[2018-12-09] MEDS: ZYVOX 600 MG TAB PO SCH ×2 (08:08→21:10)
[2018-12-09] MEDS: INSULIN GLARGINE [LANTus] (100 UNITS/ML) SYG SC SCH (08:10)
[2018-12-09] MEDS: INSULIN ASPART [NOVOLOG] 3 ML PEN SC SCH ×7 (08:11→21:24)
[2018-12-09] MEDS: HEPARIN 5,000 UNIT/1 ML VIAL SC SCH ×2 (08:13→21:16)
[2018-12-09] MEDS: DAKINS 0.0125%(1/40) 473 ML SOLUTION TP SCH ×2 (08:13→21:29)
--- NOTE | 2018-12-09 10:51 | PN ---
Date/Time of Note Date/Time of Note DATE: 12/09/18 TIME: 10:51 Assessment/Plan VTE Prophylaxis Risk score (from Nsg)>0 risk: 5 SCD applied (from Nsg): Yes Pharmacological prophylaxis: heparin Lines/Catheters IV Catheter Type (from Nrsg): Saline Lock Urinary Cath still in place: No Assessment/Plan Assessment/Plan 1. Fungal UTI - ID on board and appreciate recommendations. completed course of antifungal 2. Drainage from surgical site and groin area - Wound vac in place and appreciate wound care consultation for dressing changes - will need to continue as outpatient and awaiting full scope medical prior to requesting home health and wound vac 3. Groin wound infection, enterococcus and Coag neg staph - wound vac in place per Vasc recommendations - ID on board for antibiotic recommendations 4. 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 Completed course of antibiotics - Continue local wound care - Podiatry on board and appreciate consultation. no further procedures scheduled at this time 5. Left frontal CVA - Neurology on board and appreciate recommendations - continue on aspirin and Plavix and statin 6. left-sided internal carotid artery stenosis - 25% per CT angiogram, continue aspirin, statin, Plavix per vascular surgeon 7. Acute hypoxic respiratory failure-resolved - doing well on room air - Pulmonology consultation appreciated 8. Cardiac arrest s/p ROSC - Cardiology on board and appreciate recommendations - ECHO with preserved EF 9. Severe peripheral vascular disease - s/p left femoral endarterectomy, iliofemoral bypass and femoral to posterior tibial bypass done on November 08, 2018 - Vascular surgery consultation appreciated. Continue aspirin and Plavix 10. Diabetes Mellitus - A1c noted - continue lantus and ISS. adjust as needed 11. Acute kidney injury- resolved - nephrology consultation appreciated 12. Essential HTN - Continue home medications at this time as tolerated 13. Peripheral neuropathy - cont. gabapentin 14. HLD - On statin 15. Chronic anemia - Stable H&H. Monitor - no need for transfusions at this time 16. Urinary retention, resolved - Urology on board and appreciate recommendations. - patient doing well on voiding trial, no schneider 17. Disposition - Awaiting full scope insurance coverage in order to initiate HH and wound vac for home. Still has medical restricted at this time Result Diagram: 12/09/18 0502 12/09/18 0502 Results 24hrs Laboratory Tests Test 12/08/18 11:51 12/08/18 17:12 12/08/18 20:26 12/08/18 22:46 Bedside Glucose 367 H 374 H 433 *H 258 H Test 12/09/18 02:26 12/09/18 05:02 12/09/18 08:04 Bedside Glucose 210 199 White Blood Count 5.1 Red Blood Count 3.66 L Hemoglobin 11.0 L Hematocrit 33.9 L Mean Corpuscular 92.6 Volume Mean Corpuscular 30.1 Hemoglobin Mean Corpuscular 32.4 Hemoglobin Concent Red Cell 13.8 Distribution Width Platelet Count 221 Mean Platelet Volume 10.8 H Immature 0.400 Granulocytes % Neutrophils % 37.7 L Lymphocytes % 40.2 Monocytes % 13.5 H Eosinophils % 7.0 Basophils % 1.2 Nucleated Red Blood 0.0 Cells % Immature 0.020 Granulocytes # Neutrophils # 1.9 Lymphocytes # 2.1 Monocytes # 0.7 Eosinophils # 0.4 Basophils # 0.1 Nucleated Red Blood 0.0 Cells # Sodium Level 132 L Potassium Level 5.1 Chloride Level 96 L Carbon Dioxide Level 29 Anion Gap 7 Blood Urea Nitrogen 26 H Creatinine 1.11 Est Glomerular Filtrat Rate mL/min Glucose Level 214 Calcium Level 8.8 Phosphorus Level 4.1 Magnesium Level 1.7 Subjective 24 Hr Interval Summary Free Text/Dictation Patient denies any acute issues and doing well. No acute overnight events. Exam/Review of Systems Exam Vitals Vital Signs Date Temp Pulse Resp B/P (MAP) Pulse Ox O2 O2 Flow FiO2 Time Delivery Rate 12/09/18 97.9 90 18 94/60 (71) 99 Room Air 08:00 Intake and Output 12/08/18 12/08/18 12/09/18 1515:00 23:00 07:00 IntakeIntake Total 1000 ml 300 ml 480 ml OutputOutput Total 200 ml 40 ml BalanceBalance 800 ml 260 ml 480 ml Exam General: Patient is laying in bed responding to questions appropriately Neck: Supple, nontender, midline Respiratory: diminished bilaterally. no wheezing Cardiovascular: regular rate and rhythm, no obvious murmurs Gastrointestinal: non-tender to palpation, bowel sounds heard. Neurological: Moves all extremities spontaneously Skin: No new skin lesions, wound vac LLE in place Results Results 24hrs Laboratory Tests Test 12/08/18 11:51 12/08/18 17:12 12/08/18 20:26 12/08/18 22:46 Bedside Glucose 367 H 374 H 433 *H 258 H Test 12/09/18 02:26 12/09/18 05:02 12/09/18 08:04 Bedside Glucose 210 199 White Blood Count 5.1 Red Blood Count 3.66 L Hemoglobin 11.0 L Hematocrit 33.9 L Mean Corpuscular 92.6 Volume Mean Corpuscular 30.1 Hemoglobin Mean Corpuscular 32.4 Hemoglobin Concent Red Cell 13.8 Distribution Width Platelet Count 221 Mean Platelet Volume 10.8 H Immature 0.400 Granulocytes % Neutrophils % 37.7 L Lymphocytes % 40.2 Monocytes % 13.5 H Eosinophils % 7.0 Basophils % 1.2 Nucleated Red Blood 0.0 Cells % Immature 0.020 Granulocytes # Neutrophils # 1.9 Lymphocytes # 2.1 Monocytes # 0.7 Eosinophils # 0.4 Basophils # 0.1 Nucleated Red Blood 0.0 Cells # Sodium Level 132 L Potassium Level 5.1 Chloride Level 96 L Carbon Dioxide Level 29 Anion Gap 7 Blood Urea Nitrogen 26 H Creatinine 1.11 Est Glomerular Filtrat Rate mL/min Glucose Level 214 Calcium Level 8.8 Phosphorus Level 4.1 Magnesium Level 1.7 Medications Medication Current Medications Ergocalciferol (Drisdol) 50,000 unit Sa PO Last administered on 12/07/18at 0 8:55; Admin Dose 50,000 UNIT; Start 11/09/18 at 09:00 Miscellaneous Medication (Bystolic) 20 mg DAILY PO Last administered on 11/11/18at 09:03; Admin Dose 20 MG; Start 11/04/18 at 09:00; Status Hold Clonidine (Catapres) 0.1 mg Q6H PRN PO SBP>160 Last administered on 11/19/18at 03:04; Admin Dose 0.1 MG; Start 11/04/18 at 09:00 IV Flush (NS 3 ml) 3 ml PER PROTOCOL IV ; Start 11/04/18 at 09:00 Ondansetron HCl (Zofran Inj) 4 mg Q6H PRN IV NAUSEA/VOMITING; Start 11/04/18 at 09:00 Acetaminophen (Tylenol Tab) 650 mg Q6H PRN PO .PAIN 1-3 OR TEMP Last administered on 12/08/18at 22:53; Admin Dose 650 MG; Start 11/04/18 at 09:00 Miscellaneous Information 1 ea NOTE XX ; Start 11/04/18 at 09:00 Glucose (Glutose) 15 gm Q15M PRN PO DECREASED GLUCOSE; Start 11/04/18 at 09:00 Glucose (Glutose) 22.5 gm Q15M PRN PO DECREASED GLUCOSE; Start 11/04/18 at 09:00 Dextrose (D50w Syringe) 25 ml Q15M PRN IV DECREASED GLUCOSE; Start 11/04/18 at 09:00 Dextrose (D50w Syringe) 50 ml Q15M PRN IV DECREASED GLUCOSE; Start 11/04/18 at 09:00 Glucagon (Glucagen) 1 mg Q15M PRN IM DECREASED GLUCOSE; Start 11/04/18 at 09:00 Glucose (Glutose) 15 gm Q15M PRN BUCCAL DECREASED GLUCOSE; Start 11/04/18 at 09:00 Miscellaneous Information Patients own medicat... BID@10,16 XX Last administered on 11/20/18at 16:16; Admin Dose 1 EA; Start 11/04/18 at 16:00 Sodium Hypochlorite (Dakins Diluted (40)) 1 applic BID TP Last administered on 12/09/18at 08:13; Admin Dose 1 APPLIC; Start 11/07/18 at 09:00 Hydralazine HCl (Apresoline) 10 mg Q4H PRN IV sbp >160 Last administered on 11/20/18at 14:44; Admin Dose 10 MG; Start 11/08/18 at 09:00 Atropine Sulfate (Atropine) 0.5 mg PRN PRN IV SYMPTOMATIC BRADYCARDIA; Start 11/11/18 at 23:00 Heparin Sodium (Porcine) (Heparin (5000 Units/1ml)) 5,000 unit BID SC Last administered on 12/09/18at 08:13; Admin Dose 5,000 UNIT; Start 11/14/18 at 21:00 Bisacodyl (Dulcolax Supp) 10 mg DAILY PRN [place] CONSTIPATION Last administered on 11/14/18at 16:43; Admin Dose 10 MG; Start 11/14/18 at 16:30 IV Flush (NS 10 ml) 10 ml PRN PRN IV FLUSH LINE; Start 11/15/18 at 15:30 Gabapentin (Neurontin Liquid) 300 mg BID PO Last administered on 12/09/18 08:08; Admin Dose 300 MG; Start 11/18/18 at 21:00 Diagnostic Test (Pha) (Accu-Chek) 1 ea 02 XX Last administered on 12/09/18 02:39; Admin Dose 1 EA; Start 11/20/18 at 02:00 Ascorbic Acid (Vitamin C) 500 mg DAILY PO Last administered on 12/09/18 08:07; Admin Dose 500 MG; Start 11/20/18 at 09:00 Zinc Sulfate (Zinc Sulfate) 220 mg DAILY PO Last administered on 12/09/18 08:07; Admin Dose 220 MG; Start 11/20/18 at 09:00 Atorvastatin Calcium (Lipitor) 80 mg QHS PO Last administered on 12/08/18 20:46; Admin Dose 80 MG; Start 11/19/18 at 21:00 Lorazepam (Ativan) 0.5 mg Q6H PRN IV anxiety/agitation Last administered on 11/22/18 19:32; Admin Dose 0.5 MG; Start 11/22/18 at 11:00 Clopidogrel Bisulfate (plaVIX) 75 mg DAILY PO Last administered on 12/09/18 08:07; Admin Dose 75 MG; Start 11/23/18 at 09:00 Haloperidol (Haldol) 5 mg Q12H PRN IM agitation Last administered on 11/22/18 19:44; Admin Dose 5 MG; Start 11/22/18 at 14:30 Quetiapine Fumarate (Seroquel) 25 mg QHS PO Last administered on 12/08/18 20:46; Admin Dose 25 MG; Start 11/26/18 at 21:00 Hydralazine HCl (Apresoline) 25 mg TID PO Last administered on 11/28/18 21:08; Admin Dose 25 MG; Start 11/28/18 at 13:00; Status Hold Polyethylene Glycol (Miralax) 17 gm DAILY PRN PO constipation Last administered on 12/06/18 06:10; Admin Dose 17 GM; Start 11/29/18 at 08:02 Aspirin (Aspirin) 81 mg DAILY PO Last administered on 12/09/18 08:08; Admin Dose 81 MG; Start 11/29/18 at 09:00 Famotidine (Pepcid) 20 mg DAILY PO Last administered on 12/09/18 08:07; Admin Dose 20 MG; Start 11/29/18 at 09:00 Senna/Docusate Sodium (Senokot-S) 1 tab BID PRN PO constipation Last administer ed on 12/09/18 08:07; Admin Dose 1 TAB; Start 11/29/18 at 08:30 Lisinopril (Zestril) 2.5 mg DAILY PO Last administered on 12/09/18 08:07; Admin Dose 2.5 MG; Start 12/03/18 at 09:00 Furosemide (Lasix) 20 mg DAILY@0600 PO Last administered on 12/09/18 06:19; Admin Dose 20 MG; Start 12/04/18 at 10:30 Linezolid (Zyvox) 600 mg BID PO Last administered on 12/09/18 08:08; Admin Dose 600 MG; Start 12/06/18 at 14:00 Insulin Glargine (Lantus) 30 units DAILY@0800 SC Last administered on 12/09/18 08:10; Admin Dose 30 UNITS; Start 12/08/18 at 08:00 Insulin Aspart (Novolog Insulin Pen) 9 unit WITH MEALS SC Last administered on 12/09/18 08:11; Admin Dose 9 UNIT; Start 12/08/18 at 11:30 Diagnostic Test (Pha) (Accu-Chek) 1 ea 02 XX Last administered on 12/09/18 02:39; Admin Dose 1 EA; Start 12/09/18 at 02:00 Insulin Aspart (Novolog Insulin Pen) NOVOLOG *MODERATE* ALGORITHM WITH MEALS BEDTIME SC Last administered on 12/09/18 08:12; Admin Dose 4 UNIT; Start 12/08/18 at 21:00 Miscellaneous Information (*Order Clarification Bulletin) MEDICATION REQUIRES CLARIFICATI... Q8H XX ; Start 12/09/18 at 09:30 KARL WOOD MD Dec 09, 2018 10:51
--- NOTE | 2018-12-09 12:28 | CONS ---
Assessment/Plan Assessment/Plan Hospital Course (Demo Recall) IMPRESSION: 1. Preoperative evaluation prior to possible need for peripheral revascularization surgery.-neg trop x 3 and NL EF by echo with no sig valve abnl. Echo repeat 11/13 with NL EF 2. Peripheral arterial disease with nonhealing gangrenous changes in left toe ulceration. 3. Hypertension-now tolerating low dose ACEI 4. Dyslipidemia. 5. Diabetes mellitus. 6. s/p cardiopulmonary arrest 7. Bradycardic intermittent by tele-now resolved 8. Positive troponin after arrest-? secondary to or primary to arrest, likely secondary to arrest, type 2 demand infarct, as no signifcant uptrend and now downtrended to negative 9. Resp failure-s/p extubation 10. CVA-Acute by MRI 11.Groin wound 12. UTI-fungal Recc: -Now on med-surg -Continue asa/plavix/statin for cva -serial ecg's -Continue now linezolid and f/u bld cx's -s/p fluconazole for fungal UTI -local wound care -heparin was d/c'd secondary to anemia requiring transfusions -follow volume status closely now back on daily lasix -follow MS closely -Continue now zestril mononotherapy at reduced dose which patient is tolerating Consultation Date/Type/Reason Admit Date/Time Nov 04, 2018 at 07:34 Initial Consult Date 11/06/18 Type of Consult Cardiology Reason for Consultation preop Requesting Provider: KARL WOOD MD Date/Time of Note DATE: 12/09/18 TIME: 12:26 Exam/Review of Systems Vital Signs Vitals Vital Signs Date Temp Pulse Resp B/P (MAP) Pulse Ox O2 O2 Flow FiO2 Time Delivery Rate 12/09/18 97.9 90 18 94/60 (71) 99 Room Air 08:00 Intake and Output 12/08/18 12/08/18 12/09/18 1515:00 23:00 07:00 IntakeIntake Total 1000 ml 300 ml 480 ml OutputOutput Total 200 ml 40 ml BalanceBalance 800 ml 260 ml 480 ml Exam Exam Review of Systems: CONSTITUTIONAL: No fevers, chills. PULMONARY: No sob CARDIOVASCULAR: No chest pain/palpitations GASTROINTESTINAL: No nausea/vomiting. GENITOURINARY: No hematuria/dysuria. MUSCULOSKELETAL: No myagias/arthalgias. PSYCHIATRIC: The patient denies depression. NEUROLOGIC: No weakness Constitutional: alert Psych: no complaints Head: normocephalic ENMT: mucosa pink and moist Neck: supple, jvd (9 cm water) Respiratory: clear to auscultation Cardiovascular: regular rate and rhythm Gastrointestinal: soft, non-tender Musculoskeletal: muscle weakness (mild generalized) Extremities: edema (none) Neurological: other (No focal deficits) Labs Result Diagram: 12/09/18 0502 12/09/18 0502 Results 24hrs Laboratory Tests Test 12/08/18 17:12 12/08/18 20:26 12/08/18 22:46 12/09/18 02:26 Bedside Glucose 374 H 433 *H 258 H 210 Test 12/09/18 05:02 12/09/18 08:04 12/09/18 12:20 White Blood Count 5.1 Red Blood Count 3.66 L Hemoglobin 11.0 L Hematocrit 33.9 L Mean Corpuscular 92.6 Volume Mean Corpuscular 30.1 Hemoglobin Mean Corpuscular 32.4 Hemoglobin Concent Red Cell 13.8 Distribution Width Platelet Count 221 Mean Platelet Volume 10.8 H Immature 0.400 Granulocytes % Neutrophils % 37.7 L Lymphocytes % 40.2 Monocytes % 13.5 H Eosinophils % 7.0 Basophils % 1.2 Nucleated Red Blood 0.0 Cells % Immature 0.020 Granulocytes # Neutrophils # 1.9 Lymphocytes # 2.1 Monocytes # 0.7 Eosinophils # 0.4 Basophils # 0.1 Nucleated Red Blood 0.0 Cells # Sodium Level 132 L Potassium Level 5.1 Chloride Level 96 L Carbon Dioxide Level 29 Anion Gap 7 Blood Urea Nitrogen 26 H Creatinine 1.11 Est Glomerular Filtrat Rate mL/min Glucose Level 214 Calcium Level 8.8 Phosphorus Level 4.1 Magnesium Level 1.7 Bedside Glucose 199 186 Medications Medications Current Medications Ergocalciferol (Drisdol) 50,000 unit Sa PO Last administered on 12/07/18at 08:55; Admin Dose 50,000 UNIT; Start 11/09/18 at 09:00 Miscellaneous Medication (Bystolic) 20 mg DAILY PO Last administered on 11/11/18at 09:03; Admin Dose 20 MG; Start 11/04/18 at 09:00; Status Hold Clonidine (Catapres) 0.1 mg Q6H PRN PO SBP>160 Last administered on 11/19/18at 03:04; Admin Dose 0.1 MG; Start 11/04/18 at 09:00 IV Flush (NS 3 ml) 3 ml PER PROTOCOL IV ; Start 11/04/18 at 09:00 Ondansetron HCl (Zofran Inj) 4 mg Q6H PRN IV NAUSEA/VOMITING; Start 11/04/18 at 09:00 Acetaminophen (Tylenol Tab) 650 mg Q6H PRN PO .PAIN 1-3 OR TEMP Last administer ed on 12/08/18at 22:53; Admin Dose 650 MG; Start 11/04/18 at 09:00 Miscellaneous Information 1 ea NOTE XX ; Start 11/04/18 at 09:00 Glucose (Glutose) 15 gm Q15M PRN PO DECREASED GLUCOSE; Start 11/04/18 at 09:00 Glucose (Glutose) 22.5 gm Q15M PRN PO DECREASED GLUCOSE; Start 11/04/18 at 09:00 Dextrose (D50w Syringe) 25 ml Q15M PRN IV DECREASED GLUCOSE; Start 11/04/18 at 09:00 Dextrose (D50w Syringe) 50 ml Q15M PRN IV DECREASED GLUCOSE; Start 11/04/18 at 09:00 Glucagon (Glucagen) 1 mg Q15M PRN IM DECREASED GLUCOSE; Start 11/04/18 at 09:00 Glucose (Glutose) 15 gm Q15M PRN BUCCAL DECREASED GLUCOSE; Start 11/04/18 at 09:00 Miscellaneous Information Patients own medicat... BID@10,16 XX Last a dministered on 11/20/18at 16:16; Admin Dose 1 EA; Start 11/04/18 at 16:00 Sodium Hypochlorite (Dakins Diluted ()) 1 applic BID TP Last administered on 12/09/18at 08:13; Admin Dose 1 APPLIC; Start 11/07/18 at 09:00 Hydralazine HCl (Apresoline) 10 mg Q4H PRN IV sbp >160 Last administered on 11/20/18at 14:44; Admin Dose 10 MG; Start 11/08/18 at 09:00 Atropine Sulfate (Atropine) 0.5 mg PRN PRN IV SYMPTOMATIC BRADYCARDIA; Start 11/11/18 at 23:00 Heparin Sodium (Porcine) (Heparin (5000 Units/1ml)) 5,000 unit BID SC Last administered on 12/09/18 08:13; Admin Dose 5,000 UNIT; Start 11/14/18 at 21:00 Bisacodyl (Dulcolax Supp) 10 mg DAILY PRN [place] CONSTIPATION Last administered on 11/14/18 16:43; Admin Dose 10 MG; Start 11/14/18 at 16:30 IV Flush (NS 10 ml) 10 ml PRN PRN IV FLUSH LINE; Start 11/15/18 at 15:30 Gabapentin (Neurontin Liquid) 300 mg BID PO Last administered on 12/09/18 08:08; Admin Dose 300 MG; Start 11/18/18 at 21:00 Diagnostic Test (Pha) (Accu-Chek) 1 ea 02 XX Last administered on 12/09/18 02:39; Admin Dose 1 EA; Start 11/20/18 at 02:00 Ascorbic Acid (Vitamin C) 500 mg DAILY PO Last administered on 12/09/18 08:07; Admin Dose 500 MG; Start 11/20/18 at 09:00 Zinc Sulfate (Zinc Sulfate) 220 mg DAILY PO Last administered on 12/09/18 08:07; Admin Dose 220 MG; Start 11/20/18 at 09:00 Atorvastatin Calcium (Lipitor) 80 mg QHS PO Last administered on 12/08/18 20:46; Admin Dose 80 MG; Start 11/19/18 at 21:00 Lorazepam (Ativan) 0.5 mg Q6H PRN IV anxiety/agitation Last administered on 11/22/18 19:32; Admin Dose 0.5 MG; Start 11/22/18 at 11:00 Clopidogrel Bisulfate (plaVIX) 75 mg DAILY PO Last administered on 12/09/18 08:07; Admin Dose 75 MG; Start 11/23/18 at 09:00 Haloperidol (Haldol) 5 mg Q12H PRN IM agitation Last administered on 11/22/18 19:44; Admin Dose 5 MG; Start 11/22/18 at 14:30 Quetiapine Fumarate (Seroquel) 25 mg QHS PO Last administered on 12/08/18 20:46; Admin Dose 25 MG; Start 11/26/18 at 21:00 Hydralazine HCl (Apresoline) 25 mg TID PO Last administered on 11/28/18 21:08; Admin Dose 25 MG; Start 11/28/18 at 13:00; Status Hold Polyethylene Glycol (Miralax) 17 gm DAILY PRN PO constipation Last administered on 12/06/18 06:10; Admin Dose 17 GM; Start 11/29/18 at 08:02 Aspirin (Aspirin) 81 mg DAILY PO Last administered on 12/09/18 08:08; Admin Dose 81 MG; Start 11/29/18 at 09:00 Famotidine (Pepcid) 20 mg DAILY PO Last administered on 12/09/18 08:07; Admin Dose 20 MG; Start 11/29/18 at 09:00 Senna/Docusate Sodium (Senokot-S) 1 tab BID PRN PO constipation Last administered on 12/09/18 08:07; Admin Dose 1 TAB; Start 11/29/18 at 08:30 Lisinopril (Zestril) 2.5 mg DAILY PO Last administered on 12/09/18 08:07; Admin Dose 2.5 MG; Start 12/03/18 at 09:00 Furosemide (Lasix) 20 mg DAILY@0600 PO Last administered on 12/09/18 06:19; Admin Dose 20 MG; Start 12/04/18 at 10:30 Linezolid (Zyvox) 600 mg BID PO Last administered on 12/09/18 08:08; Admin Dose 600 MG; Start 12/06/18 at 14:00 Insulin Glargine (Lantus) 30 units DAILY@0800 SC Last administered on 12/09/18 08:10; Admin Dose 30 UNITS; Start 12/08/18 at 08:00 Insulin Aspart (Novolog Insulin Pen) 9 unit WITH MEALS SC Last administered on 12/09/18 12:24; Admin Dose 9 UNIT; Start 12/08/18 at 11:30 Diagnostic Test (Pha) (Accu-Chek) 1 ea 02 XX Last administered on 12/09/18 02:39; Admin Dose 1 EA; Start 12/09/18 at 02:00 Insulin Aspart (Novolog Insulin Pen) NOVOLOG *MODERATE* ALGORITHM WITH MEALS BEDTIME SC Last administered on 12/09/18 12:25; Admin Dose 4 UNIT; Start 12/08/18 at 21:00 Miscellaneous Information (*Order Clarification Bulletin) MEDICATION REQUIRES CLARIFICATI... Q8H XX ; Start 12/09/18 at 09:30 KLEVER HUNT Dec 09, 2018 12:28
[2018-12-09 14:00] VITALS: BP 140/81; PULSE 94; RESP 18
--- NOTE | 2018-12-09 15:05 | CONS ---
Assessment/Plan Assessment/Plan Hospital Course (Demo Recall) No acute changes looks comfortable, afebrile Left groin wound culture grew coag negative staph and scant enterococcus, patient remains on doxycycline Bld cx + Staph Urine cx neg CXR noted Abx: Zyvox Physical examination: Well-developed elderly man who is in no distress head atraumatic normocephalic neck is supple chest rise symmetrical breath sounds CTA heart S1-S2, abdomen soft bowel sounds present extremities with left foot dressing intact Assessment: 1. Bacteremia, cw contaminant 2. UTI per ua==> neg cx 3. Status post cardiac arrest/non-ST elevation [place] 4. Status post acute respiratory failure, possibly aspirated 5. Peripheral arterial disease status post left femoral to posterior tibial bypass 11/08/18 6. Diabetes 7. History of left foot second toe amputation Plan: Clinically stable, left groin has a wound VAC, cultures growing staph and enterococcus, continue Zyvox Consultation Date/Type/Reason Admit Date/Time Nov 04, 2018 at 07:34 Initial Consult Date Type of Consult id Requesting Provider: KARL WOOD MD Date/Time of Note DATE: 12/09/18 TIME: 15:04 Exam/Review of Systems Exam Vitals Vital Signs Date Temp Pulse Resp B/P (MAP) Pulse Ox O2 O2 Flow FiO2 Time Delivery Rate 12/09/18 97.9 90 18 94/60 (71) 99 Room Air 08:00 Intake and Output 12/08/18 12/08/18 12/09/18 1414:59 22:59 06:59 IntakeIntake Total 1000 ml 300 ml 480 ml OutputOutput Total 200 ml 40 ml BalanceBalance 800 ml 260 ml 480 ml Results Result Diagram: 12/09/18 0502 12/09/18 0502 Results 24hrs Laboratory Tests Test 12/08/18 17:12 12/08/18 20:26 12/08/18 22:46 12/09/18 02:26 Bedside Glucose 374 H 433 *H 258 H 210 Test 12/09/18 05:02 12/09/18 08:04 12/09/18 12:20 White Blood Count 5.1 Red Blood Count 3.66 L Hemoglobin 11.0 L Hematocrit 33.9 L Mean Corpuscular 92.6 Volume Mean Corpuscular 30.1 Hemoglobin Mean Corpuscular 32.4 Hemoglobin Concent Red Cell 13.8 Distribution Width Platelet Count 221 Mean Platelet Volume 10.8 H Immature 0.400 Granulocytes % Neutrophils % 37.7 L Lymphocytes % 40.2 Monocytes % 13.5 H Eosinophils % 7.0 Basophils % 1.2 Nucleated Red Blood 0.0 Cells % Immature 0.020 Granulocytes # Neutrophils # 1.9 Lymphocytes # 2.1 Monocytes # 0.7 Eosinophils # 0.4 Basophils # 0.1 Nucleated Red Blood 0.0 Cells # Sodium Level 132 L Potassium Level 5.1 Chloride Level 96 L Carbon Dioxide Level 29 Anion Gap 7 Blood Urea Nitrogen 26 H Creatinine 1.11 Est Glomerular Filtrat Rate mL/min Glucose Level 214 Calcium Level 8.8 Phosphorus Level 4.1 Magnesium Level 1.7 Bedside Glucose 199 186 Medications Medication Current Medications Ergocalciferol (Drisdol) 50,000 unit Sa PO Last administered on 12/07/18at 08:55; Admin Dose 50,000 UNIT; Start 11/09/18 at 09:00 Miscellaneous Medication (Bystolic) 20 mg DAILY PO Last administered on 11/11/18at 09:03; Admin Dose 20 MG; Start 11/04/18 at 09:00; Status Hold Clonidine (Catapres) 0.1 mg Q6H PRN PO SBP>160 Last administered on 11/19/18 03:04; Admin Dose 0.1 MG; Start 11/04/18 at 09:00 IV Flush (NS 3 ml) 3 ml PER PROTOCOL IV ; Start 11/04/18 at 09:00 Ondansetron HCl (Zofran Inj) 4 mg Q6H PRN IV NAUSEA/VOMITING; Start 11/04/18 at 09:00 Acetaminophen (Tylenol Tab) 650 mg Q6H PRN PO .PAIN 1-3 OR TEMP Last administered on 12/08/18at 22:53; Admin Dose 650 MG; Start 11/04/18 at 09:00 Miscellaneous Information 1 ea NOTE XX ; Start 11/04/18 at 09:00 Glucose (Glutose) 15 gm Q15M PRN PO DECREASED GLUCOSE; Start 11/04/18 at 09:00 Glucose (Glutose) 22.5 gm Q15M PRN PO DECREASED GLUCOSE; Start 11/04/18 at 09:00 Dextrose (D50w Syringe) 25 ml Q15M PRN IV DECREASED GLUCOSE; Start 11/04/18 at 09:00 Dextrose (D50w Syringe) 50 ml Q15M PRN IV DECREASED GLUCOSE; Start 11/04/18 at 09:00 Glucagon (Glucagen) 1 mg Q15M PRN IM DECREASED GLUCOSE; Start 11/04/18 at 09:00 Glucose (Glutose) 15 gm Q15M PRN BUCCAL DECREASED GLUCOSE; Start 11/04/18 at 09:00 Miscellaneous Information Patients own medicat... BID@10,16 XX Last administered on 11/20/18 16:16; Admin Dose 1 EA; Start 11/04/18 at 16:00 Sodium Hypochlorite (Dakins Diluted ()) 1 applic BID TP Last administered on 12/09/18 08:13; Admin Dose 1 APPLIC; Start 11/07/18 at 09:00 Hydralazine HCl (Apresoline) 10 mg Q4H PRN IV sbp >160 Last administered on 11/20/18 14:44; Admin Dose 10 MG; Start 11/08/18 at 09:00 Atropine Sulfate (Atropine) 0.5 mg PRN PRN IV SYMPTOMATIC BRADYCARDIA; Start 11/11/18 at 23:00 Heparin Sodium (Porcine) (Heparin (5000 Units/1ml)) 5,000 unit BID SC Last administered on 12/09/18 08:13; Admin Dose 5,000 UNIT; Start 11/14/18 at 21:00 Bisacodyl (Dulcolax Supp) 10 mg DAILY PRN [place] CONSTIPATION Last administered on 11/14/18at 16:43; Admin Dose 10 MG; Start 11/14/18 at 16:30 IV Flush (NS 10 ml) 10 ml PRN PRN IV FLUSH LINE; Start 11/15/18 at 15:30 Gabapentin (Neurontin Liquid) 300 mg BID PO Last administered on 12/09/18 08:08; Admin Dose 300 MG; Start 11/18/18 at 21:00 Diagnostic Test (Pha) (Accu-Chek) 1 ea 02 XX Last administered on 12/09/18at 02:39; Admin Dose 1 EA; Start 11/20/18 at 02:00 Ascorbic Acid (Vitamin C) 500 mg DAILY PO Last administered on 12/09/18 08:07; Admin Dose 500 MG; Start 11/20/18 at 09:00 Zinc Sulfate (Zinc Sulfate) 220 mg DAILY PO Last administered on 12/09/18 08:07; Admin Dose 220 MG; Start 11/20/18 at 09:00 Atorvastatin Calcium (Lipitor) 80 mg QHS PO Last administered on 12/08/18 20:46; Admin Dose 80 MG; Start 11/19/18 at 21:00 Lorazepam (Ativan) 0.5 mg Q6H PRN IV anxiety/agitation Last administered on 11/22/18 19:32; Admin Dose 0.5 MG; Start 11/22/18 at 11:00 Clopidogrel Bisulfate (plaVIX) 75 mg DAILY PO Last administered on 12/09/18 08:07; Admin Dose 75 MG; Start 11/23/18 at 09:00 Haloperidol (Haldol) 5 mg Q12H PRN IM agitation Last administered on 11/22/18 19:44; Admin Dose 5 MG; Start 11/22/18 at 14:30 Quetiapine Fumarate (Seroquel) 25 mg QHS PO Last administered on 12/08/18 20:46; Admin Dose 25 MG; Start 11/26/18 at 21:00 Hydralazine HCl (Apresoline) 25 mg TID PO Last administered on 11/28/18 21:08; Admin Dose 25 MG; Start 11/28/18 at 13:00; Status Hold Polyethylene Glycol (Miralax) 17 gm DAILY PRN PO constipation Last administered on 12/06/18 06:10; Admin Dose 17 GM; Start 11/29/18 at 08:02 Aspirin (Aspirin) 81 mg DAILY PO Last administered on 12/09/18 08:08; Admin Dose 81 MG; Start 11/29/18 at 09:00 Famotidine (Pepcid) 20 mg DAILY PO Last administered on 12/09/18 08:07; Admin Dose 20 MG; Start 11/29/18 at 09:00 Senna/Docusate Sodium (Senokot-S) 1 tab BID PRN PO constipation Last administered on 12/09/18 08:07; Admin Dose 1 TAB; Start 11/29/18 at 08:30 Lisinopril (Zestril) 2.5 mg DAILY PO Last administered on 12/09/18 08:07; Admin Dose 2.5 MG; Start 12/03/18 at 09:00 Furosemide (Lasix) 20 mg DAILY@0600 PO Last administered on 12/09/18at 06:19; Admin Dose 20 MG; Start 12/04/18 at 10:30 Linezolid (Zyvox) 600 mg BID PO Last administered on 12/09/18at 08:08; Admin Dose 600 MG; Start 12/06/18 at 14:00 Insulin Glargine (Lantus) 30 units DAILY@0800 SC Last administered on 12/09/18at 08:10; Admin Dose 30 UNITS; Start 12/08/18 at 08:00 Insulin Aspart (Novolog Insulin Pen) 9 unit WITH MEALS SC Last administered on 12/09/18at 12:24; Admin Dose 9 UNIT; Start 12/08/18 at 11:30 Diagnostic Test (Pha) (Accu-Chek) 1 ea 02 XX Last administered on 12/09/18at 02:39; Admin Dose 1 EA; Start 12/09/18 at 02:00 Insulin Aspart (Novolog Insulin Pen) NOVOLOG *MODERATE* ALGORITHM WITH MEALS BEDTIME SC Last administered on 12/09/18at 12:25; Admin Dose 4 UNIT; Start 12/08/18 at 21:00 Miscellaneous Information (*Order Clarification Bulletin) MEDICATION REQUIRES CLARIFICATI... Q8H XX ; Start 12/09/18 at 09:30 HERRERA MURILLO NP Dec 09, 2018 15:05
[2018-12-09 19:55] VITALS: BP 157/92; PULSE 94; RESP 19
[2018-12-09] MEDS: ATORVASTATIN 80 MG TAB PO SCH (21:10)
[2018-12-09] MEDS: QUETIAPINE 25 MG TAB PO SCH (21:10)
[2018-12-09] MEDS ORDERED: INSULIN ASPART [NOVOLOG] 3 ML PEN SC ONE (21:30)
[2018-12-09] MEDS ORDERED: ACCU-CHEK XX ONE (23:30)
[2018-12-10] MEDS: ACCU-CHEK XX SCH ×2 (02:00)
[2018-12-10 02:58] VITALS: BP 98/50; PULSE 86; RESP 20
[2018-12-10] MEDS: FUROSEMIDE 20 MG TAB PO SCH (06:23)
[2018-12-10 06:25] VITALS: BP 139/79; PULSE 92; RESP 17
[2018-12-10 08:05] VITALS: BP 111/64; PULSE 94; RESP 17
[2018-12-10] MEDS: INSULIN ASPART [NOVOLOG] 3 ML PEN SC SCH ×7 (08:31→21:00)
[2018-12-10] MEDS: HEPARIN 5,000 UNIT/1 ML VIAL SC SCH ×2 (08:33→21:31)
[2018-12-10] MEDS: INSULIN GLARGINE [LANTus] (100 UNITS/ML) SYG SC SCH (08:33)
[2018-12-10] MEDS: LISINOPRIL 5 MG TAB PO SCH (08:35)
[2018-12-10] MEDS: GABAPENTIN (50 MG/ML PO SYG) PO SCH ×2 (08:35→21:30)
[2018-12-10] MEDS: FAMOTIDINE 20 MG TAB PO SCH (08:36)
[2018-12-10] MEDS: ASCORBIC ACID 500 MG TAB PO SCH (08:36)
[2018-12-10] MEDS: CLOPIDOGREL 75 MG TAB PO SCH (08:36)
[2018-12-10] MEDS: ZINC SULFATE 220 MG CAP PO SCH (08:36)
[2018-12-10] MEDS: ASPIRIN 81 MG TAB PO SCH (08:36)
[2018-12-10] MEDS: ZYVOX 600 MG TAB PO SCH ×2 (08:36→21:29)
[2018-12-10] MEDS: DAKINS 0.0125%(1/40) 473 ML SOLUTION TP SCH ×2 (08:37→21:35)
--- NOTE | 2018-12-10 10:12 | CONS ---
Consult Date/Type/Reason Admit Date/Time Nov 04, 2018 at 07:34 Initial Consult Date 11/11/18 Type of Consultation: Pulm Requesting Provider: KARL WOOD MD Date/Time of Note DATE: 12/10/18 TIME: 10:11 Subjective NO acute events - pt con't to improve - no CP - better fluid status - LE healing - much better overall. ROS: No fever, no chills, no nausea, no vomiting, no diarrhea/constipation No recent weight changes No chest pain, no PND, no orthopnea - mild SOB No dizziness, blurred vision No thirst, no heat or cold intolerance Objective Vitals Vital Signs Date Temp Pulse Resp B/P (MAP) Pulse Ox O2 O2 Flow FiO2 Time Delivery Rate 12/10/18 97.6 94 17 111/64 97 Room Air 08:05 (80) Intake and Output 12/09/18 12/09/18 12/10/18 1515:00 23:00 07:00 IntakeIntake Total 800 ml 650 ml OutputOutput Total 50 ml BalanceBalance 750 ml 650 ml Exam General: WN/WD/NAD, AOx 3 HEENT: Unicetric/atraumatic/EOMI (follow commands) NECK: JVD elevated, no thyromegaly Lymph: no lymphadenopathy HEART: regular with no S3, II/ systolic murmur at apex, PMI L LUNGS: Coarse sounds ABD: soft, NT, ND, +BS : Intact Neuro: non focal SKIN: chronic changes EXT: post op - healing well. Results/Medications Result Diagram: 12/09/18 0502 12/09/18 0502 Results 24 hrs Laboratory Tests Test 12/09/18 12:20 12/09/18 17:13 12/09/18 21:12 12/09/18 23:57 Bedside Glucose 186 253 H 320 H 275 H Test 12/10/18 02:31 12/10/18 08:14 Bedside Glucose 202 220 Home Meds Active Scripts Silver Sulfadiazine* (Silvadene*) 1% - 20 Gm Cream.gm., 1 APPLIC TOP DAILY, #1 TUB Prov:JESSIE WONG MD 06/12/18 Amoxicillin-Clavulanate K* (Augmentin*) 875 Mg Tab, 875 MG PO BID, #28 TAB Prov:AMANDA GOMEZ MD 06/08/14 Reported Medications Insulin Aspart (Novolog Mix (70/30)) 100 Units/Ml Soln, 28 SC with diinner, VIAL 11/04/18 Insulin Aspart (Novolog Mix (70/30)) 100 Units/Ml Soln, 38 SC WITH BREAKFAST, VIAL 11/04/18 Benazepril Hcl* (Benazepril Hcl*) 40 Mg Tablet, 40 MG PO DAILY, #30 TAB 11/04/18 Ergocalciferol (Vitamin D2) (VITAMIN D2) 50,000 Unit Capsule, 75738 UNIT PO weekly for saturdays, CAP 11/04/18 Omeprazole* (Omeprazole*) 20 Mg Capsule.dr, 20 MG PO DAILY, #30 CAP 11/04/18 Aspirin* (Aspirin* EC) 81 Mg Tablet.dr, 81 MG PO DAILY, TAB 11/04/18 Gabapentin* (Gabapentin*) 300 Mg Capsule, 300 MG PO BID, #60 CAP 11/04/18 Nebivolol Hcl* (Bystolic*) 20 Mg Tablet, 20 MG PO DAILY, #30 TAB 11/04/18 Atorvastatin Calcium* (Atorvastatin Calcium*) 20 Mg Tablet, 20 MG PO QHS, #30 TAB 11/04/18 Sulfasalazine (Azulfidine) 500 Mg Tab, 1000 MG PO TID, TAB 06/02/14 Medications Current Medications Ergocalciferol (Drisdol) 50,000 unit Sa PO Last administered on 12/07/18at 0 8:55; Admin Dose 50,000 UNIT; Start 11/09/18 at 09:00 Miscellaneous Medication (Bystolic) 20 mg DAILY PO Last administered on 11/11/18at 09:03; Admin Dose 20 MG; Start 11/04/18 at 09:00; Status Hold Clonidine (Catapres) 0.1 mg Q6H PRN PO SBP>160 Last administered on 11/19/18at 03:04; Admin Dose 0.1 MG; Start 11/04/18 at 09:00 IV Flush (NS 3 ml) 3 ml PER PROTOCOL IV ; Start 11/04/18 at 09:00 Ondansetron HCl (Zofran Inj) 4 mg Q6H PRN IV NAUSEA/VOMITING; Start 11/04/18 at 09:00 Acetaminophen (Tylenol Tab) 650 mg Q6H PRN PO .PAIN 1-3 OR TEMP Last administered on 12/08/18at 22:53; Admin Dose 650 MG; Start 11/04/18 at 09:00 Miscellaneous Information 1 ea NOTE XX ; Start 11/04/18 at 09:00 Glucose (Glutose) 15 gm Q15M PRN PO DECREASED GLUCOSE; Start 11/04/18 at 09:00 Glucose (Glutose) 22.5 gm Q15M PRN PO DECREASED GLUCOSE; Start 11/04/18 at 09:00 Dextrose (D50w Syringe) 25 ml Q15M PRN IV DECREASED GLUCOSE; Start 11/04/18 at 09:00 Dextrose (D50w Syringe) 50 ml Q15M PRN IV DECREASED GLUCOSE; Start 11/04/18 at 09:00 Glucagon (Glucagen) 1 mg Q15M PRN IM DECREASED GLUCOSE; Start 11/04/18 at 09:00 Glucose (Glutose) 15 gm Q15M PRN BUCCAL DECREASED GLUCOSE; Start 11/04/18 at 09:00 Miscellaneous Information Patients own medicat... BID@, XX Last administered on 11/20/18at 16:16; Admin Dose 1 EA; Start 11/04/18 at 16:00 Sodium Hypochlorite (Dakins Diluted ()) 1 applic BID TP Last administered on 12/10/18at 08:37; Admin Dose 1 APPLIC; Start 11/07/18 at 09:00 Hydralazine HCl (Apresoline) 10 mg Q4H PRN IV sbp >160 Last administered on 11/20/18at 14:44; Admin Dose 10 MG; Start 11/08/18 at 09:00 Atropine Sulfate (Atropine) 0.5 mg PRN PRN IV SYMPTOMATIC BRADYCARDIA; Start 11/11/18 at 23:00 Heparin Sodium (Porcine) (Heparin (5000 Units/1ml)) 5,000 unit BID SC Last administered on 12/10/18 08:33; Admin Dose 5,000 UNIT; Start 11/14/18 at 21:00 Bisacodyl (Dulcolax Supp) 10 mg DAILY PRN [place] CONSTIPATION Last administered on 11/14/18at 16:43; Admin Dose 10 MG; Start 11/14/18 at 16:30 IV Flush (NS 10 ml) 10 ml PRN PRN IV FLUSH LINE; Start 11/15/18 at 15:30 Gabapentin (Neurontin Liquid) 300 mg BID PO Last administered on 12/10/18 08:35; Admin Dose 300 MG; Start 11/18/18 at 21:00 Diagnostic Test (Pha) (Accu-Chek) 1 ea 02 XX Last administered on 12/09/18 02:39; Admin Dose 1 EA; Start 11/20/18 at 02:00 Ascorbic Acid (Vitamin C) 500 mg DAILY PO Last administered on 12/10/18 08:36; Admin Dose 500 MG; Start 11/20/18 at 09:00 Zinc Sulfate (Zinc Sulfate) 220 mg DAILY PO Last administered on 12/10/18 08:36; Admin Dose 220 MG; Start 11/20/18 at 09:00 Atorvastatin Calcium (Lipitor) 80 mg QHS PO Last administered on 12/09/18 21:10; Admin Dose 80 MG; Start 11/19/18 at 21:00 Lorazepam (Ativan) 0.5 mg Q6H PRN IV anxiety/agitation Last administered on 11/22/18 19:32; Admin Dose 0.5 MG; Start 11/22/18 at 11:00 Clopidogrel Bisulfate (plaVIX) 75 mg DAILY PO Last administered on 12/10/18 08:36; Admin Dose 75 MG; Start 11/23/18 at 09:00 Haloperidol (Haldol) 5 mg Q12H PRN IM agitation Last administered on 11/22/18 19:44; Admin Dose 5 MG; Start 11/22/18 at 14:30 Quetiapine Fumarate (Seroquel) 25 mg QHS PO Last administered on 12/09/18 21:10; Admin Dose 25 MG; Start 11/26/18 at 21:00 Hydralazine HCl (Apresoline) 25 mg TID PO Last administered on 11/28/18 21:08; Admin Dose 25 MG; Start 11/28/18 at 13:00; Status Hold Polyethylene Glycol (Miralax) 17 gm DAILY PRN PO constipation Last administered on 12/06/18 06:10; Admin Dose 17 GM; Start 11/29/18 at 08:02 Aspirin (Aspirin) 81 mg DAILY PO Last administered on 12/10/18 08:36; Admin Dose 81 MG; Start 11/29/18 at 09:00 Famotidine (Pepcid) 20 mg DAILY PO Last administered on 12/10/18 08:36; Admin Dose 20 MG; Start 11/29/18 at 09:00 Senna/Docusate Sodium (Senokot-S) 1 tab BID PRN PO constipation Last administer ed on 12/09/18 08:07; Admin Dose 1 TAB; Start 11/29/18 at 08:30 Lisinopril (Zestril) 2.5 mg DAILY PO Last administered on 12/10/18 08:35; Admin Dose 2.5 MG; Start 12/03/18 at 09:00 Furosemide (Lasix) 20 mg DAILY@0600 PO Last administered on 12/10/18 06:23; Admin Dose 20 MG; Start 12/04/18 at 10:30 Linezolid (Zyvox) 600 mg BID PO Last administered on 12/10/18 08:36; Admin Dose 600 MG; Start 12/06/18 at 14:00 Diagnostic Test (Pha) (Accu-Chek) 1 ea 02 XX Last administered on 12/09/18at 02:39; Admin Dose 1 EA; Start 12/09/18 at 02:00 Insulin Aspart (Novolog Insulin Pen) NOVOLOG *MODERATE* ALGORITHM WITH MEALS BEDTIME SC Last administered on 12/10/18 08:32; Admin Dose 4 UNIT; Start 11/19 06/08 at 21:00 Insulin Aspart (Novolog Insulin Pen) 11 unit WITH MEALS SC ; Start 12/10/18 at 11:30 Insulin Glargine (Lantus) 35 units DAILY@0800 SC ; Start 12/11/18 at 08:00 Assessment/Plan Hospital Course (Demo Recall) 1. Preoperative evaluation prior to possible need for peripheral revascularization surgery.-neg trop x 3 and NL EF by echo with no sig valve abnl - s/p decomp[ensation and CODE Blue - pt was rossana last night, now in sinus -now extubated., more alert, Better overall. 2. Peripheral arterial disease with nonhealing gangrenous changes in left toe ulceration - post op now. Treated. Post op. Site looks well. No edema. Con't to improve. 3. Hypertension, under reasonable control on current medications. NOW stable. Will allow fpr now. BETTER now. Controlled. 4. Dyslipidemia. 5. Diabetes mellitus- con't to keep euglycemic - on meds. Euglycemic now. On meds. 6. s/p cardiopulmonary arrest - con't resp Rx - pulmonary follows - reasonable saturation now Now in sinus. 7. Bradycardic intermittent by tele - now back to sinus - will monitor - dopa gtt if sustained rossana. Now stable. NO indication for pacer now - HR well maintained now. 8. Positive troponin after arrest-? secondary to or primary to arrest - no intervention planned now. 9. Anemia - H/H stableat 11. - no bleeding now, Stable. 10. AMS - will check ECHO r/o large veg per ID rec - ECHO showed no obvious vegetation. On anti-bx now. Con't anti-Bx. RAJI BROWNE MD Dec 10, 2018 10:12
--- NOTE | 2018-12-10 13:39 | CONS ---
Assessment/Plan Assessment/Plan Hospital Course (Demo Recall) No acute changes, alert, feels good Left groin wound culture grew coag negative staph and scant enterococcus, patient remains on doxycycline Bld cx + Staph Abx: Zyvox Physical examination: Well-developed elderly man who is in no distress head atraumatic normocephalic neck is supple chest rise symmetrical breath sounds CTA heart S1-S2, abdomen soft bowel sounds present extremities with left foot dressing intact Assessment: 1. Bacteremia, cw contaminant 2. UTI per ua==> neg cx 3. Status post cardiac arrest/non-ST elevation [place] 4. Status post acute respiratory failure, possibly aspirated 5. Peripheral arterial disease status post left femoral to posterior tibial bypass 11/08/18 6. Diabetes 7. History of left foot second toe amputation Plan: Clinically stable, left groin has a wound VAC, cultures growing staph and enterococcus, continue Zyvox Consultation Date/Type/Reason Admit Date/Time Nov 04, 2018 at 07:34 Initial Consult Date Type of Consult id Requesting Provider: KARL WOOD MD Date/Time of Note DATE: 12/10/18 TIME: 13:39 Exam/Review of Systems Exam Vitals Vital Signs Date Temp Pulse Resp B/P (MAP) Pulse Ox O2 O2 Flow FiO2 Time Delivery Rate 12/10/18 97.6 94 17 111/64 97 Room Air 08:05 (80) Intake and Output 12/09/18 12/09/18 12/10/18 1515:00 23:00 07:00 IntakeIntake Total 800 ml 650 ml OutputOutput Total 50 ml BalanceBalance 750 ml 650 ml Results Result Diagram: 12/09/18 0502 12/09/18 0502 Results 24hrs Laboratory Tests Test 12/09/18 17:13 12/09/18 21:12 12/09/18 23:57 12/10/18 02:31 Bedside Glucose 253 H 320 H 275 H 202 Test 12/10/18 08:14 12/10/18 12:28 Bedside Glucose 220 205 Medications Medication Current Medications Ergocalciferol (Drisdol) 50,000 unit Sa PO Last administered on 12/07/18at 08:55; Admin Dose 50,000 UNIT; Start 11/09/18 at 09:00 Miscellaneous Medication (Bystolic) 20 mg DAILY PO Last administered on 11/11/18at 09:03; Admin Dose 20 MG; Start 11/04/18 at 09:00; Status Hold Clonidine (Catapres) 0.1 mg Q6H PRN PO SBP>160 Last administered on 11/19/18at 03:04; Admin Dose 0.1 MG; Start 11/04/18 at 09:00 IV Flush (NS 3 ml) 3 ml PER PROTOCOL IV ; Start 11/04/18 at 09:00 Ondansetron HCl (Zofran Inj) 4 mg Q6H PRN IV NAUSEA/VOMITING; Start 11/04/18 at 09:00 Acetaminophen (Tylenol Tab) 650 mg Q6H PRN PO .PAIN 1-3 OR TEMP Last administered on 12/08/18at 22:53; Admin Dose 650 MG; Start 11/04/18 at 09:00 Miscellaneous Information 1 ea NOTE XX ; Start 11/04/18 at 09:00 Glucose (Glutose) 15 gm Q15M PRN PO DECREASED GLUCOSE; Start 11/04/18 at 09:00 Glucose (Glutose) 22.5 gm Q15M PRN PO DECREASED GLUCOSE; Start 11/04/18 at 09:00 Dextrose (D50w Syringe) 25 ml Q15M PRN IV DECREASED GLUCOSE; Start 11/04/18 at 09:00 Dextrose (D50w Syringe) 50 ml Q15M PRN IV DECREASED GLUCOSE; Start 11/04/18 at 09:00 Glucagon (Glucagen) 1 mg Q15M PRN IM DECREASED GLUCOSE; Start 11/04/18 at 09:00 Glucose (Glutose) 15 gm Q15M PRN BUCCAL DECREASED GLUCOSE; Start 11/04/18 at 09:00 Miscellaneous Information Patients own medicat... BID@16 XX Last administered on 11/20/18at 16:16; Admin Dose 1 EA; Start 11/04/18 at 16:00 Sodium Hypochlorite (Dakins Diluted ()) 1 applic BID TP Last administered on 12/10/18at 08:37; Admin Dose 1 APPLIC; Start 11/07/18 at 09:00 Hydralazine HCl (Apresoline) 10 mg Q4H PRN IV sbp >160 Last administered on 11/20/18at 14:44; Admin Dose 10 MG; Start 11/08/18 at 09:00 Atropine Sulfate (Atropine) 0.5 mg PRN PRN IV SYMPTOMATIC BRADYCARDIA; Start 11/11/18 at 23:00 Heparin Sodium (Porcine) (Heparin (5000 Units/1ml)) 5,000 unit BID SC Last administered on 12/10/18 08:33; Admin Dose 5,000 UNIT; Start 11/14/18 at 21:00 Bisacodyl (Dulcolax Supp) 10 mg DAILY PRN [place] CONSTIPATION Last administered on 11/14/18 16:43; Admin Dose 10 MG; Start 11/14/18 at 16:30 IV Flush (NS 10 ml) 10 ml PRN PRN IV FLUSH LINE; Start 11/15/18 at 15:30 Gabapentin (Neurontin Liquid) 300 mg BID PO Last administered on 12/10/18 08:35; Admin Dose 300 MG; Start 11/18/18 at 21:00 Diagnostic Test (Pha) (Accu-Chek) 1 ea 02 XX Last administered on 12/09/18 02:39; Admin Dose 1 EA; Start 11/20/18 at 02:00 Ascorbic Acid (Vitamin C) 500 mg DAILY PO Last administered on 12/10/18 08:36; Admin Dose 500 MG; Start 11/20/18 at 09:00 Zinc Sulfate (Zinc Sulfate) 220 mg DAILY PO Last administered on 12/10/18 08:36; Admin Dose 220 MG; Start 11/20/18 at 09:00 Atorvastatin Calcium (Lipitor) 80 mg QHS PO Last administered on 12/09/18 21:10; Admin Dose 80 MG; Start 11/19/18 at 21:00 Lorazepam (Ativan) 0.5 mg Q6H PRN IV anxiety/agitation Last administered on 19:32; Admin Dose 0.5 MG; Start 11/22/18 at 11:00 Clopidogrel Bisulfate (plaVIX) 75 mg DAILY PO Last administered on 12/10/18 08:36; Admin Dose 75 MG; Start 11/23/18 at 09:00 Haloperidol (Haldol) 5 mg Q12H PRN IM agitation Last administered on 11/22/18 19:44; Admin Dose 5 MG; Start 11/22/18 at 14:30 Quetiapine Fumarate (Seroquel) 25 mg QHS PO Last administered on 12/09/18 21:10; Admin Dose 25 MG; Start 11/26/18 at 21:00 Hydralazine HCl (Apresoline) 25 mg TID PO Last administered on 11/28/18 21:08; Admin Dose 25 MG; Start 11/28/18 at 13:00; Status Hold Polyethylene Glycol (Miralax) 17 gm DAILY PRN PO constipation Last administered on 12/06/18 06:10; Admin Dose 17 GM; Start 11/29/18 at 08:02 Aspirin (Aspirin) 81 mg DAILY PO Last administered on 12/10/18 08:36; Admin Dose 81 MG; Start 11/29/18 at 09:00 Famotidine (Pepcid) 20 mg DAILY PO Last administered on 12/10/18 08:36; Admin Dose 20 MG; Start 11/29/18 at 09:00 Senna/Docusate Sodium (Senokot-S) 1 tab BID PRN PO constipation Last administered on 12/09/18 08:07; Admin Dose 1 TAB; Start 11/29/18 at 08:30 Lisinopril (Zestril) 2.5 mg DAILY PO Last administered on 12/10/18 08:35; Admin Dose 2.5 MG; Start 12/03/18 at 09:00 Furosemide (Lasix) 20 mg DAILY@0600 PO Last administered on 12/10/18 06:23; Admin Dose 20 MG; Start 12/04/18 at 10:30 Linezolid (Zyvox) 600 mg BID PO Last administered on 12/10/18 08:36; Admin Dose 600 MG; Start 12/06/18 at 14:00 Diagnostic Test (Pha) (Accu-Chek) 1 ea 02 XX Last administered on 12/09/18 02:39; Admin Dose 1 EA; Start 12/09/18 at 02:00 Insulin Aspart (Novolog Insulin Pen) NOVOLOG *MODERATE* ALGORITHM WITH MEALS BEDTIME SC Last administered on 12/10/18 12:30; Admin Dose 4 UNIT; Start 12/08/18 at 21:00 Insulin Aspart (Novolog Insulin Pen) 11 unit WITH MEALS SC Last administered on 12/10/18 12:30; Admin Dose 11 UNIT; Start 12/10/18 at 11:30 Insulin Glargine (Lantus) 35 units DAILY@0800 SC ; Start 12/11/18 at 08:00 HERRERA MURILLO NP Dec 10, 2018 13:39
[2018-12-10 14:00] VITALS: BP 138/79; PULSE 90; RESP 18
--- NOTE | 2018-12-10 16:10 | PN ---
Date/Time of Note Date/Time of Note DATE: 12/10/18 TIME: 16:08 Assessment/Plan VTE Prophylaxis Risk score (from Ns)>0 risk: 3 SCD applied (from Ns): Yes Pharmacological prophylaxis: NA/contraindicated Pharm contraindication: low risk/ambulating Lines/Catheters IV Catheter Type (from Nrsg): Saline Lock Urinary Cath still in place: No Assessment/Plan Assessment/Plan 1. Fungal UTI - ID on board and appreciate recommendations. completed course of antifungal 2. Drainage from surgical site and groin area - Wound vac in place and appreciate wound care consultation for dressing changes - will need to continue as outpatient and awaiting full scope medical prior to requesting home health. - wound vac ordered for home use and will need dressing changes twice a week 3. Groin wound infection, enterococcus and Coag neg staph - wound vac in place per Vasc recommendations - ID on board for antibiotic recommendations 4. 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 Completed course of antibiotics - Continue local wound care - Podiatry on board and appreciate consultation. no further procedures sche duled at this time 5. Left frontal CVA - Neurology on board and appreciate recommendations - continue on aspirin and Plavix and statin 6. left-sided internal carotid artery stenosis - 25% per CT angiogram, continue aspirin, statin, Plavix per vascular surgeon 7. Acute hypoxic respiratory failure-resolved - doing well on room air - Pulmonology consultation appreciated 8. Cardiac arrest s/p ROSC - Cardiology on board and appreciate recommendations - ECHO with preserved EF 9. Severe peripheral vascular disease - s/p left femoral endarterectomy, iliofemoral bypass and femoral to posterior tibial bypass done on November 08, 2018 - Vascular surgery consultation appreciated. Continue aspirin and Plavix 10. Diabetes Mellitus - A1c noted - continue lantus and ISS. adjust as needed 11. Acute kidney injury- resolved - nephrology consultation appreciated 12. Essential HTN - Continue home medications at this time as tolerated 13. Peripheral neuropathy - cont. gabapentin 14. HLD - On statin 15. Chronic anemia - Stable H&H. Monitor - no need for transfusions at this time 16. Urinary retention, resolved - Urology on board and appreciate recommendations. - patient doing well on voiding trial, no schneider 17. Disposition - Once approved for full scope medical, can arrange for wound vac changes and wound care for home. Result Diagram: 12/09/18 0502 12/09/18 0502 Results 24hrs Laboratory Tests Test 12/09/18 17:13 12/09/18 21:12 12/09/18 23:57 12/10/18 02:31 Bedside Glucose 253 H 320 H 275 H 202 Test 12/10/18 08:14 12/10/18 12:28 Bedside Glucose 220 205 Subjective 24 Hr Interval Summary Free Text/Dictation Patient doing well and denies any acute issues. No overnight events. Exam/Review of Systems Exam Vitals Vital Signs Date Temp Pulse Resp B/P (MAP) Pulse Ox O2 O2 Flow FiO2 Time Delivery Rate 12/10/18 97.9 90 18 138/79 99 Room Air 14:00 (98) Intake and Output 12/09/18 12/09/18 12/10/18 1515:00 23:00 07:00 IntakeIntake Total 800 ml 650 ml OutputOutput Total 50 ml BalanceBalance 750 ml 650 ml Exam General: Patient is laying in bed responding to questions appropriately Neck: Supple, nontender, midline Respiratory: diminished bilaterally. no wheezing Cardiovascular: regular rate and rhythm, no obvious murmurs Gastrointestinal: non-tender to palpation, bowel sounds heard. Neurological: Moves all extremities spontaneously Skin: No new skin lesions, wound vac L groin in place Results Results 24hrs Laboratory Tests Test 12/09/18 17:13 12/09/18 21:12 12/09/18 23:57 12/10/18 02:31 Bedside Glucose 253 H 320 H 275 H 202 Test 12/10/18 08:14 12/10/18 12:28 Bedside Glucose 220 205 Medications Medication Current Medications Ergocalciferol (Drisdol) 50,000 unit Sa PO Last administered on 12/07/18at 08:55; Admin Dose 50,000 UNIT; Start 11/09/18 at 09:00 Miscellaneous Medication (Bystolic) 20 mg DAILY PO Last administered on 11/11/18at 09:03; Admin Dose 20 MG; Start 11/04/18 at 09:00; Status Hold Clonidine (Catapres) 0.1 mg Q6H PRN PO SBP>160 Last administered on 11/19/18at 03:04; Admin Dose 0.1 MG; Start 11/04/18 at 09:00 IV Flush (NS 3 ml) 3 ml PER PROTOCOL IV ; Start 11/04/18 at 09:00 Ondansetron HCl (Zofran Inj) 4 mg Q6H PRN IV NAUSEA/VOMITING; Start 11/04/18 at 09:00 Acetaminophen (Tylenol Tab) 650 mg Q6H PRN PO .PAIN 1-3 OR TEMP Last administered on 12/08/18at 22:53; Admin Dose 650 MG; Start 11/04/18 at 09:00 Miscellaneous Information 1 ea NOTE XX ; Start 11/04/18 at 09:00 Glucose (Glutose) 15 gm Q15M PRN PO DECREASED GLUCOSE; Start 11/04/18 at 09:00 Glucose (Glutose) 22.5 gm Q15M PRN PO DECREASED GLUCOSE; Start 11/04/18 at 09:00 Dextrose (D50w Syringe) 25 ml Q15M PRN IV DECREASED GLUCOSE; Start 11/04/18 at 09:00 Dextrose (D50w Syringe) 50 ml Q15M PRN IV DECREASED GLUCOSE; Start 11/04/18 at 09:00 Glucagon (Glucagen) 1 mg Q15M PRN IM DECREASED GLUCOSE; Start 11/04/18 at 09:00 Glucose (Glutose) 15 gm Q15M PRN BUCCAL DECREASED GLUCOSE; Start 11/04/18 at 09:00 Miscellaneous Information Patients own medicat... BID@10,16 XX Last administered on 11/20/18at 16:16; Admin Dose 1 EA; Start 11/04/18 at 16:00 Sodium Hypochlorite (Dakins Diluted (40)) 1 applic BID TP Last administered on 12/10/18at 08:37; Admin Dose 1 APPLIC; Start 11/07/18 at 09:00 Hydralazine HCl (Apresoline) 10 mg Q4H PRN IV sbp >160 Last administered on 11/20/18at 14:44; Admin Dose 10 MG; Start 11/08/18 at 09:00 Atropine Sulfate (Atropine) 0.5 mg PRN PRN IV SYMPTOMATIC BRADYCARDIA; Start 11/11/18 at 23:00 Heparin Sodium (Porcine) (Heparin (5000 Units/1ml)) 5,000 unit BID SC Last administered on 12/10/18 08:33; Admin Dose 5,000 UNIT; Start 11/14/18 at 21:00 Bisacodyl (Dulcolax Supp) 10 mg DAILY PRN [place] CONSTIPATION Last administered on 11/14/18 16:43; Admin Dose 10 MG; Start 11/14/18 at 16:30 IV Flush (NS 10 ml) 10 ml PRN PRN IV FLUSH LINE; Start 11/15/18 at 15:30 Gabapentin (Neurontin Liquid) 300 mg BID PO Last administered on 12/10/18 08:35; Admin Dose 300 MG; Start 11/18/18 at 21:00 Diagnostic Test (Pha) (Accu-Chek) 1 ea 02 XX Last administered on 12/09/18 02:39; Admin Dose 1 EA; Start 11/20/18 at 02:00 Ascorbic Acid (Vitamin C) 500 mg DAILY PO Last administered on 12/10/18 08:36; Admin Dose 500 MG; Start 11/20/18 at 09:00 Zinc Sulfate (Zinc Sulfate) 220 mg DAILY PO Last administered on 12/10/18 08:36; Admin Dose 220 MG; Start 11/20/18 at 09:00 Atorvastatin Calcium (Lipitor) 80 mg QHS PO Last administered on 12/09/18 21:10; Admin Dose 80 MG; Start 11/19/18 at 21:00 Lorazepam (Ativan) 0.5 mg Q6H PRN IV anxiety/agitation Last administered on 11/22/18 19:32; Admin Dose 0.5 MG; Start 11/22/18 at 11:00 Clopidogrel Bisulfate (plaVIX) 75 mg DAILY PO Last administered on 12/10/18 08:36; Admin Dose 75 MG; Start 11/23/18 at 09:00 Haloperidol (Haldol) 5 mg Q12H PRN IM agitation Last administered on 11/22/18 19:44; Admin Dose 5 MG; Start 11/22/18 at 14:30 Quetiapine Fumarate (Seroquel) 25 mg QHS PO Last administered on 12/09/18 21:10; Admin Dose 25 MG; Start 11/26/18 at 21:00 Hydralazine HCl (Apresoline) 25 mg TID PO Last administered on 11/28/18 21:08; Admin Dose 25 MG; Start 11/28/18 at 13:00; Status Hold Polyethylene Glycol (Miralax) 17 gm DAILY PRN PO constipation Last administered on 12/06/18 06:10; Admin Dose 17 GM; Start 11/29/18 at 08:02 Aspirin (Aspirin) 81 mg DAILY PO Last administered on 12/10/18 08:36; Admin Dose 81 MG; Start 11/29/18 at 09:00 Famotidine (Pepcid) 20 mg DAILY PO Last administered on 12/10/18 08:36; Admin Dose 20 MG; Start 11/29/18 at 09:00 Senna/Docusate Sodium (Senokot-S) 1 tab BID PRN PO constipation Last administered on 12/09/18 08:07; Admin Dose 1 TAB; Start 11/29/18 at 08:30 Lisinopril (Zestril) 2.5 mg DAILY PO Last administered on 12/10/18 08:35; Admin Dose 2.5 MG; Start 12/03/18 at 09:00 Furosemide (Lasix) 20 mg DAILY@0600 PO Last administered on 12/10/18 06:23; Admin Dose 20 MG; Start 12/04/18 at 10:30 Linezolid (Zyvox) 600 mg BID PO Last administered on 12/10/18 08:36; Admin Dose 600 MG; Start 12/06/18 at 14:00 Diagnostic Test (Pha) (Accu-Chek) 1 ea 02 XX Last administered on 12/09/18 02:39; Admin Dose 1 EA; Start 12/09/18 at 02:00 Insulin Aspart (Novolog Insulin Pen) NOVOLOG *MODERATE* ALGORITHM WITH MEALS BEDTIME SC Last administered on 12/10/18 12:30; Admin Dose 4 UNIT; Start 12/08/18 at 21:00 Insulin Aspart (Novolog Insulin Pen) 11 unit WITH MEALS SC Last administered on 12/10/18 12:30; Admin Dose 11 UNIT; Start 12/10/18 at 11:30 Insulin Glargine (Lantus) 35 units DAILY@0800 SC ; Start 12/11/18 at 08:00 KARL WOOD MD Dec 10, 2018 16:10
[2018-12-10 20:57] VITALS: BP 115/74; PULSE 82; RESP 19
[2018-12-10] MEDS: QUETIAPINE 25 MG TAB PO SCH (21:29)
[2018-12-10] MEDS: ATORVASTATIN 80 MG TAB PO SCH (21:29)
[2018-12-11 02:00] VITALS: BP 132/68; PULSE 103; RESP 18
[2018-12-11] MEDS: ACCU-CHEK XX SCH ×2 (02:00)
[2018-12-11] MEDS: FUROSEMIDE 20 MG TAB PO SCH (05:35)
[2018-12-11 07:55] VITALS: BP 102/65; PULSE 98; RESP 16
[2018-12-11] MEDS: INSULIN ASPART [NOVOLOG] 3 ML PEN SC SCH ×7 (08:26→21:06)
[2018-12-11] MEDS: INSULIN GLARGINE [LANTus] (100 UNITS/ML) SYG SC SCH (08:27)
[2018-12-11] MEDS: GABAPENTIN (50 MG/ML PO SYG) PO SCH ×2 (08:28→21:09)
[2018-12-11] MEDS: ASPIRIN 81 MG TAB PO SCH (08:28)
[2018-12-11] MEDS: FAMOTIDINE 20 MG TAB PO SCH (08:28)
[2018-12-11] MEDS: ZINC SULFATE 220 MG CAP PO SCH (08:28)
[2018-12-11] MEDS: ASCORBIC ACID 500 MG TAB PO SCH (08:28)
[2018-12-11] MEDS: CLOPIDOGREL 75 MG TAB PO SCH (08:28)
[2018-12-11] MEDS: ZYVOX 600 MG TAB PO SCH ×2 (08:28→21:09)
[2018-12-11] MEDS: HEPARIN 5,000 UNIT/1 ML VIAL SC SCH ×2 (08:28→21:07)
[2018-12-11] MEDS: LISINOPRIL 5 MG TAB PO SCH (08:29)
[2018-12-11] MEDS: DAKINS 0.0125%(1/40) 473 ML SOLUTION TP SCH ×2 (08:30→21:13)
--- NOTE | 2018-12-11 11:01 | CONS ---
Assessment/Plan Assessment/Plan Hospital Course (Demo Recall) No acute changes, looks comfortable Left groin wound culture grew coag negative staph and scant enterococcus, patient remains on doxycycline Bld cx + Staph Abx: Zyvox Physical examination: Well-developed elderly man who is in no distress head atraumatic normocephalic neck is supple chest rise symmetrical breath sounds CTA heart S1-S2, abdomen soft bowel sounds present extremities with left foot dressing intact Assessment: 1. Bacteremia, cw contaminant 2. UTI per ua==> neg cx 3. Status post cardiac arrest/non-ST elevation NM 4. Status post acute respiratory failure, possibly aspirated 5. Peripheral arterial disease status post left femoral to posterior tibial by pass 11/08/18 6. Diabetes 7. History of left foot second toe amputation Plan: Clinically stable, left groin wound culture growing staph and enterococcus, continue Zyvox, repeat cx with next wound vac change Consultation Date/Type/Reason Admit Date/Time Nov 04, 2018 at 07:34 Initial Consult Date Type of Consult id Requesting Provider: KARL WOOD MD Date/Time of Note DATE: 12/11/18 TIME: 10:58 Exam/Review of Systems Exam Vitals Vital Signs Date Temp Pulse Resp B/P (MAP) Pulse Ox O2 O2 Flow FiO2 Time Delivery Rate 12/11/18 98.6 98 16 102/65 98 07:55 (77) 12/10/18 Room Air 14:00 Intake and Output 12/10/18 12/10/18 12/11/18 1515:00 23:00 07:00 IntakeIntake Total 900 ml 500 ml BalanceBalance 900 ml 500 ml Results Result Diagram: 12/09/18 0502 12/09/18 0502 Results 24hrs Laboratory Tests Test 12/10/18 12:28 12/10/18 17:08 12/10/18 21:28 12/11/18 08:24 Bedside Glucose 205 105 168 177 Medications Medication Current Medications Ergocalciferol (Drisdol) 50,000 unit Sa PO Last administered on 12/07/18at 08:55; Admin Dose 50,000 UNIT; Start 11/09/18 at 09:00 Miscellaneous Medication (Bystolic) 20 mg DAILY PO Last administered on at 09:03; Admin Dose 20 MG; Start 11/04/18 at 09:00; Status Hold Clonidine (Catapres) 0.1 mg Q6H PRN PO SBP>160 Last administered on 11/19/18at 03:04; Admin Dose 0.1 MG; Start 11/04/18 at 09:00 IV Flush (NS 3 ml) 3 ml PER PROTOCOL IV ; Start 11/04/18 at 09:00 Ondansetron HCl (Zofran Inj) 4 mg Q6H PRN IV NAUSEA/VOMITING; Start 11/04/18 at 09:00 Acetaminophen (Tylenol Tab) 650 mg Q6H PRN PO .PAIN 1-3 OR TEMP Last administered on 12/08/18at 22:53; Admin Dose 650 MG; Start 11/04/18 at 09:00 Miscellaneous Information 1 ea NOTE XX ; Start 11/04/18 at 09:00 Glucose (Glutose) 15 gm Q15M PRN PO DECREASED GLUCOSE; Start 11/04/18 at 09:00 Glucose (Glutose) 22.5 gm Q15M PRN PO DECREASED GLUCOSE; Start 11/04/18 at 09:00 Dextrose (D50w Syringe) 25 ml Q15M PRN IV DECREASED GLUCOSE; Start 11/04/18 at 09:00 Dextrose (D50w Syringe) 50 ml Q15M PRN IV DECREASED GLUCOSE; Start 11/04/18 at 09:00 Glucagon (Glucagen) 1 mg Q15M PRN IM DECREASED GLUCOSE; Start 11/04/18 at 09:00 Glucose (Glutose) 15 gm Q15M PRN BUCCAL DECREASED GLUCOSE; Start 11/04/18 at 09:00 Miscellaneous Information Patients own medicat... BID@,16 XX Last administered on 11/20/18at 16:16; Admin Dose 1 EA; Start 11/04/18 at 16:00 Sodium Hypochlorite (Dakins Diluted (40)) 1 applic BID TP Last administered on 12/11/18at 08:30; Admin Dose 1 APPLIC; Start 11/07/18 at 09:00 Hydralazine HCl (Apresoline) 10 mg Q4H PRN IV sbp >160 Last administered on 11/20/18at 14:44; Admin Dose 10 MG; Start 11/08/18 at 09:00 Atropine Sulfate (Atropine) 0.5 mg PRN PRN IV SYMPTOMATIC BRADYCARDIA; Start 11/11/18 at 23:00 Heparin Sodium (Porcine) (Heparin (5000 Units/1ml)) 5,000 unit BID SC Last administered on 12/11/18 08:28; Admin Dose 5,000 UNIT; Start 11/14/18 at 21:00 Bisacodyl (Dulcolax Supp) 10 mg DAILY PRN [place] CONSTIPATION Last administered on 11/14/18 16:43; Admin Dose 10 MG; Start 11/14/18 at 16:30 IV Flush (NS 10 ml) 10 ml PRN PRN IV FLUSH LINE; Start 11/15/18 at 15:30 Gabapentin (Neurontin Liquid) 300 mg BID PO Last administered on 12/11/18 08:28; Admin Dose 300 MG; Start 11/18/18 at 21:00 Diagnostic Test (Pha) (Accu-Chek) 1 ea 02 XX Last administered on 12/09/18 02:39; Admin Dose 1 EA; Start 11/20/18 at 02:00 Ascorbic Acid (Vitamin C) 500 mg DAILY PO Last administered on 12/11/18 08:28; Admin Dose 500 MG; Start 11/20/18 at 09:00 Zinc Sulfate (Zinc Sulfate) 220 mg DAILY PO Last administered on 12/11/18 08: 28; Admin Dose 220 MG; Start 11/20/18 at 09:00 Atorvastatin Calcium (Lipitor) 80 mg QHS PO Last administered on 12/10/18 21:29; Admin Dose 80 MG; Start 11/19/18 at 21:00 Lorazepam (Ativan) 0.5 mg Q6H PRN IV anxiety/agitation Last administered on 11/22/18 19:32; Admin Dose 0.5 MG; Start 11/22/18 at 11:00 Clopidogrel Bisulfate (plaVIX) 75 mg DAILY PO Last administered on 12/11/18 08:28; Admin Dose 75 MG; Start 11/23/18 at 09:00 Haloperidol (Haldol) 5 mg Q12H PRN IM agitation Last administered on 11/22/18 19:44; Admin Dose 5 MG; Start 11/22/18 at 14:30 Quetiapine Fumarate (Seroquel) 25 mg QHS PO Last administered on 12/10/18 21:29; Admin Dose 25 MG; Start 11/26/18 at 21:00 Hydralazine HCl (Apresoline) 25 mg TID PO Last administered on 11/28/18 21:08; Admin Dose 25 MG; Start 11/28/18 at 13:00; Status Hold Polyethylene Glycol (Miralax) 17 gm DAILY PRN PO constipation Last administered on 12/06/18 06:10; Admin Dose 17 GM; Start 11/29/18 at 08:02 Aspirin (Aspirin) 81 mg DAILY PO Last administered on 12/11/18 08:28; Admin Dose 81 MG; Start 11/29/18 at 09:00 Famotidine (Pepcid) 20 mg DAILY PO Last administered on 12/11/18 08:28; Admin Dose 20 MG; Start 11/29/18 at 09:00 Senna/Docusate Sodium (Senokot-S) 1 tab BID PRN PO constipation Last administered on 12/09/18 08:07; Admin Dose 1 TAB; Start 11/29/18 at 08:30 Lisinopril (Zestril) 2.5 mg DAILY PO Last administered on 12/10/18 08:35; Admin Dose 2.5 MG; Start 12/03/18 at 09:00 Furosemide (Lasix) 20 mg DAILY@0600 PO Last administered on 12/11/18 05:35; Admin Dose 20 MG; Start 12/04/18 at 10:30 Linezolid (Zyvox) 600 mg BID PO Last administered on 12/11/18 08:28; Admin Dose 600 MG; Start 12/06/18 at 14:00 Diagnostic Test (Pha) (Accu-Chek) 1 ea 02 XX Last administered on 12/09/18 02:39; Admin Dose 1 EA; Start 12/09/18 at 02:00 Insulin Aspart (Novolog Insulin Pen) NOVOLOG *MODERATE* ALGORITHM WITH MEALS BEDTIME SC Last administered on 12/11/18 08:27; Admin Dose 2 UNIT; Start 12/08/18 at 21:00 Insulin Aspart (Novolog Insulin Pen) 11 unit WITH MEALS SC Last administered on 12/11/18 08:26; Admin Dose 11 UNIT; Start 12/10/18 at 11:30 Insulin Glargine (Lantus) 35 units DAILY@0800 SC Last administered on 7/24/19at 08:27; Admin Dose 35 UNITS; Start 12/11/18 at 08:00 HERRERA MURILLO NP Dec 11, 2018 11:00
--- NOTE | 2018-12-11 12:18 | QN ---
Documentation Comment No c/o. Ambulating well. AFVSS L groin VAC in place over small opening in the upper part of the incision with pure serous drainage 3+ graft and PT pulses, foot well perfused - cultures from L groin - S.Epi and Group D Strep, antibiotics per ID - there is no sign of infection in the wound - no erythema or tenderness, the culture results may be from the skin - there is a lymphatic leak in the left groin incision - continue VAC until it stops, change 3x/week - OK for d/c from my standpoint once home VAC is arranged, f/u with me in the wound center next week KLEVER FOREMAN MD Dec 11, 2018 12:18
--- NOTE | 2018-12-11 13:37 | CONS ---
Assessment/Plan Assessment/Plan Hospital Course (Demo Recall) IMPRESSION: 1. Preoperative evaluation prior to possible need for peripheral revascularization surgery.-neg trop x 3 and NL EF by echo with no sig valve abnl. Echo repeat 11/13 with NL EF 2. Peripheral arterial disease with nonhealing gangrenous changes in left toe ulceration. 3. Hypertension-now tolerating low dose ACEI 4. Dyslipidemia. 5. Diabetes mellitus. 6. s/p cardiopulmonary arrest 7. Bradycardic intermittent by tele-now resolved 8. Positive troponin after arrest-? secondary to or primary to arrest, likely secondary to arrest, type 2 demand infarct, as no signifcant uptrend and now downtrended to negative 9. Resp failure-s/p extubation 10. CVA-Acute by MRI 11.Groin wound 12. UTI-fungal Recc: -Now on med-surg -Continue asa/plavix/statin for cva -serial ecg's -Continue now linezolid and f/u bld cx's -local wound care -heparin was d/c'd secondary to anemia requiring transfusions -follow volume status closely now back on daily lasix -follow MS closely -Continue now zestril mononotherapy at reduced dose which patient is tolerating Consultation Date/Type/Reason Admit Date/Time Nov 04, 2018 at 07:34 Initial Consult Date 11/06/18 Type of Consult Cardiology Reason for Consultation Preop Requesting Provider: KARL WOOD MD Date/Time of Note DATE: 12/11/18 TIME: 13:33 Exam/Review of Systems Vital Signs Vitals Vital Signs Date Temp Pulse Resp B/P (MAP) Pulse Ox O2 O2 Flow FiO2 Time Delivery Rate 12/11/18 98.6 98 16 102/65 98 07:55 (77) 12/10/18 Room Air 14:00 Intake and Output 12/10/18 12/10/18 12/11/18 1515:00 23:00 07:00 IntakeIntake Total 900 ml 500 ml BalanceBalance 900 ml 500 ml Exam Exam Review of Systems: CONSTITUTIONAL: No fevers, chills. PULMONARY: No sob CARDIOVASCULAR: No chest pain/palpitations GASTROINTESTINAL: No nausea/vomiting. GENITOURINARY: No hematuria/dysuria. MUSCULOSKELETAL: No myagias/arthalgias. PSYCHIATRIC: The patient denies depression. NEUROLOGIC: No weakness Constitutional: alert Psych: no complaints Head: normocephalic ENMT: mucosa pink and moist Neck: supple, jvd (9 cm water) Respiratory: diminished breath sounds Cardiovascular: regular rate and rhythm Gastrointestinal: soft, non-tender Musculoskeletal: muscle weakness (mild generalized) Extremities: edema (trace LLE), other (foot covered by dressing) Neurological: other (No focal deficits) Labs Result Diagram: 12/09/18 0502 12/09/18 0502 Results 24hrs Laboratory Tests Test 12/10/18 17:08 12/10/18 21:28 12/11/18 08:24 12/11/18 12:04 Bedside Glucose 105 168 177 237 H Medications Medications Current Medications Ergocalciferol (Drisdol) 50,000 unit Sa PO Last administered on 12/07/18at 08:55; Admin Dose 50,000 UNIT; Start 11/09/18 at 09:00 Miscellaneous Medication (Bystolic) 20 mg DAILY PO Last administered on 11/11/18at 09:03; Admin Dose 20 MG; Start 11/04/18 at 09:00; Status Hold Clonidine (Catapres) 0.1 mg Q6H PRN PO SBP>160 Last administered on 11/19/18at 03:04; Admin Dose 0.1 MG; Start 11/04/18 at 09:00 IV Flush (NS 3 ml) 3 ml PER PROTOCOL IV ; Start 11/04/18 at 09:00 Ondansetron HCl (Zofran Inj) 4 mg Q6H PRN IV NAUSEA/VOMITING; Start 11/04/18 at 09:00 Acetaminophen (Tylenol Tab) 650 mg Q6H PRN PO .PAIN 1-3 OR TEMP Last administered on 12/08/18at 22:53; Admin Dose 650 MG; Start 11/04/18 at 09:00 Miscellaneous Information 1 ea NOTE XX ; Start 11/04/18 at 09:00 Glucose (Glutose) 15 gm Q15M PRN PO DECREASED GLUCOSE; Start 11/04/18 at 09:00 Glucose (Glutose) 22.5 gm Q15M PRN PO DECREASED GLUCOSE; Start 11/04/18 at 09:00 Dextrose (D50w Syringe) 25 ml Q15M PRN IV DECREASED GLUCOSE; Start 11/04/18 at 09:00 Dextrose (D50w Syringe) 50 ml Q15M PRN IV DECREASED GLUCOSE; Start 11/04/18 at 09:00 Glucagon (Glucagen) 1 mg Q15M PRN IM DECREASED GLUCOSE; Start 11/04/18 at 09:00 Glucose (Glutose) 15 gm Q15M PRN BUCCAL DECREASED GLUCOSE; Start 11/04/18 at 09:00 Miscellaneous Information Patients own medicat... BID@10,16 XX Last administered on 11/20/18 16:16; Admin Dose 1 EA; Start 11/04/18 at 16:00 Sodium Hypochlorite (Dakins Diluted ()) 1 applic BID TP Last administered on 12/11/18 08:30; Admin Dose 1 APPLIC; Start 11/07/18 at 09:00 Hydralazine HCl (Apresoline) 10 mg Q4H PRN IV sbp >160 Last administered on 11/20/18 14:44; Admin Dose 10 MG; Start 11/08/18 at 09:00 Atropine Sulfate (Atropine) 0.5 mg PRN PRN IV SYMPTOMATIC BRADYCARDIA; Start 11/11/18 at 23:00 Heparin Sodium (Porcine) (Heparin (5000 Units/1ml)) 5,000 unit BID SC Last administered on 12/11/18 08:28; Admin Dose 5,000 UNIT; Start 11/14/18 at 21:00 Bisacodyl (Dulcolax Supp) [address] CONSTIPATION Last administered on 11/14/18at 16:43; Admin Dose 10 MG; Start 11/14/18 at 16:30 IV Flush (NS 10 ml) 10 ml PRN PRN IV FLUSH LINE; Start 11/15/18 at 15:30 Gabapentin (Neurontin Liquid) 300 mg BID PO Last administered on 12/11/18 08:28; Admin Dose 300 MG; Start 11/18/18 at 21:00 Diagnostic Test (Pha) (Accu-Chek) 1 ea 02 XX Last administered on 12/09/18at 02:39; Admin Dose 1 EA; Start 11/20/18 at 02:00 Ascorbic Acid (Vitamin C) 500 mg DAILY PO Last administered on 12/11/18 08:28; Admin Dose 500 MG; Start 11/20/18 at 09:00 Zinc Sulfate (Zinc Sulfate) 220 mg DAILY PO Last administered on 12/11/18 08:28; Admin Dose 220 MG; Start 11/20/18 at 09:00 Atorvastatin Calcium (Lipitor) 80 mg QHS PO Last administered on 12/10/18 21:29; Admin Dose 80 MG; Start 11/19/18 at 21:00 Lorazepam (Ativan) 0.5 mg Q6H PRN IV anxiety/agitation Last administered on 11/22/18 19:32; Admin Dose 0.5 MG; Start 11/22/18 at 11:00 Clopidogrel Bisulfate (plaVIX) 75 mg DAILY PO Last administered on 12/11/18 08:28; Admin Dose 75 MG; Start 11/23/18 at 09:00 Haloperidol (Haldol) 5 mg Q12H PRN IM agitation Last administered on 11/22/18 19:44; Admin Dose 5 MG; Start 11/22/18 at 14:30 Quetiapine Fumarate (Seroquel) 25 mg QHS PO Last administered on 12/10/18 21:29; Admin Dose 25 MG; Start 11/26/18 at 21:00 Hydralazine HCl (Apresoline) 25 mg TID PO Last administered on 11/28/18 21:08; Admin Dose 25 MG; Start 11/28/18 at 13:00; Status Hold Polyethylene Glycol (Miralax) 17 gm DAILY PRN PO constipation Last administered on 12/06/18 06:10; Admin Dose 17 GM; Start 11/29/18 at 08:02 Aspirin (Aspirin) 81 mg DAILY PO Last administered on 12/11/18 08:28; Admin Dose 81 MG; Start 11/29/18 at 09:00 Famotidine (Pepcid) 20 mg DAILY PO Last administered on 12/11/18 08:28; Admin Dose 20 MG; Start 11/29/18 at 09:00 Senna/Docusate Sodium (Senokot-S) 1 tab BID PRN PO constipation Last administered on 12/09/18 08:07; Admin Dose 1 TAB; Start 11/29/18 at 08:30 Lisinopril (Zestril) 2.5 mg DAILY PO Last administered on 12/10/18 08:35; Admin Dose 2.5 MG; Start 12/03/18 at 09:00 Furosemide (Lasix) 20 mg DAILY@0600 PO Last administered on 12/11/18 05:35; Admin Dose 20 MG; Start 12/04/18 at 10:30 Linezolid (Zyvox) 600 mg BID PO Last administered on 12/11/18 08:28; Admin Dose 600 MG; Start 12/06/18 at 14:00 Diagnostic Test (Pha) (Accu-Chek) 1 ea 02 XX Last administered on 12/09/18at 02:39; Admin Dose 1 EA; Start 12/09/18 at 02:00 Insulin Aspart (Novolog Insulin Pen) NOVOLOG *MODERATE* ALGORITHM WITH MEALS B EDTIME SC Last administered on 12/11/18 12:07; Admin Dose 6 UNIT; Start 12/08/18 at 21:00 Insulin Aspart (Novolog Insulin Pen) 11 unit WITH MEALS SC Last administered on 12/11/18 12:06; Admin Dose 11 UNIT; Start 12/10/18 at 11:30 Insulin Glargine (Lantus) 35 units DAILY@0800 SC Last administered on 12/11/18 08:27; Admin Dose 35 UNITS; Start 12/11/18 at 08:00 KLEVER HUNT Dec 11, 2018 13:37
--- NOTE | 2018-12-11 16:11 | PN ---
Date/Time of Note Date/Time of Note DATE: 12/11/18 TIME: 16:09 Assessment/Plan VTE Prophylaxis Risk score (from Ns)>0 risk: 4 SCD applied (from Ns): No SCD contraindicated: low risk/ambulating Pharmacological prophylaxis: NA/contraindicated Pharm contraindication: low risk/ambulating Lines/Catheters IV [facility]from [facility] Urinary Cath still in place: No Assessment/Plan Assessment/Plan 1. Fungal UTI - ID on board and appreciate recommendations. completed course of antifungal 2. Drainage from surgical site and groin area- improving - Wound vac in place and appreciate wound care consultation for dressing changes - wound vac delivered for home use but awaiting insurance in order to arrange HH for wound vac dressing changes twice a week 3. Groin wound infection, enterococcus and Coag neg staph - wound vac in place per Vasc recommendations - ID on board for antibiotic recommendations 4. 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 Completed course of antibiotics - Continue local wound care - Podiatry on board and appreciate consultation. no further procedures scheduled at this time 5. Left frontal CVA - Neurology on board and appreciate recommendations - continue on aspirin and Plavix and statin 6. left-sided internal carotid artery stenosis - 25% per CT angiogram, continue aspirin, statin, Plavix per vascular surgeon 7. Acute hypoxic respiratory failure-resolved - doing well on room air - Pulmonology consultation appreciated 8. Cardiac arrest s/p ROSC - Cardiology on board and appreciate recommendations - ECHO with preserved EF 9. Severe peripheral vascular disease - s/p left femoral endarterectomy, iliofemoral bypass and femoral to posterior tibial bypass done on November 08, 2018 - Vascular surgery consultation appreciated. Continue aspirin and Plavix 10. Diabetes Mellitus - A1c noted - continue lantus and ISS. adjust as needed 11. Acute kidney injury- resolved - nephrology consultation appreciated 12. Essential HTN - Continue home medications at this time as tolerated 13. Peripheral neuropathy - cont. gabapentin 14. HLD - On statin 15. Chronic anemia - Stable H&H. Monitor - no need for transfusions at this time 16. Urinary retention, resolved - Urology on board and appreciate recommendations. - patient doing well on voiding trial, no schneider 17. Disposition - Once approved for full scope medical, can arrange for HH for wound vac changes Result Diagram: 12/09/18 0128 12/09/18 0502 Results 24hrs Laboratory Tests Test 12/10/18 17:08 12/10/18 21:28 12/11/18 08:24 12/11/18 12:04 Bedside Glucose 105 168 177 237 H Subjective 24 Hr Interval Summary Free Text/Dictation Patient remains stable and no acute issues. still awaiting insurance. Exam/Review of Systems Exam Vitals Vital Signs Date Temp Pulse Resp B/P (MAP) Pulse Ox O2 O2 Flow FiO2 Time Delivery Rate 12/11/18 98.6 98 16 102/65 98 07:55 (77) 12/10/18 Room Air 14:00 Intake and Output 12/10/18 12/10/18 12/11/18 1414:59 22:59 06:59 IntakeIntake Total 900 ml 500 ml BalanceBalance 900 ml 500 ml Exam General: Patient is laying in bed responding to questions appropriately Neck: Supple, nontender, midline Respiratory: diminished bilaterally. no wheezing Cardiovascular: regular rate and rhythm, no obvious murmurs Gastrointestinal: non-tender to palpation, bowel sounds heard. Neurological: Moves all extremities spontaneously Skin: No new skin lesions, wound vac L groin in place Results Results 24hrs Laboratory Tests Test 12/10/18 17:08 12/10/18 21:28 12/11/18 08:24 12/11/18 12:04 Bedside Glucose 105 168 177 237 H Medications Medication Current Medications Ergocalciferol (Drisdol) 50,000 unit Sa PO Last administered on 12/07/18at 08:55; Admin Dose 50,000 UNIT; Start 11/09/18 at 09:00 Miscellaneous Medication (Bystolic) 20 mg DAILY PO Last administered on 11/11/18at 09:03; Admin Dose 20 MG; Start 11/04/18 at 09:00; Status Hold Clonidine (Catapres) 0.1 mg Q6H PRN PO SBP>160 Last administered on 11/19/18at 03:04; Admin Dose 0.1 MG; Start 11/04/18 at 09:00 IV Flush (NS 3 ml) 3 ml PER PROTOCOL IV ; Start 11/04/18 at 09:00 Ondansetron HCl (Zofran Inj) 4 mg Q6H PRN IV NAUSEA/VOMITING; Start 11/04/18 at 09:00 Acetaminophen (Tylenol Tab) 650 mg Q6H PRN PO .PAIN 1-3 OR TEMP Last administered on 12/08/18 22:53; Admin Dose 650 MG; Start 11/04/18 at 09:00 Miscellaneous Information 1 ea NOTE XX ; Start 11/04/18 at 09:00 Glucose (Glutose) 15 gm Q15M PRN PO DECREASED GLUCOSE; Start 11/04/18 at 09:00 Glucose (Glutose) 22.5 gm Q15M PRN PO DECREASED GLUCOSE; Start 11/04/18 at 09:00 Dextrose (D50w Syringe) 25 ml Q15M PRN IV DECREASED GLUCOSE; Start 11/04/18 at 09:00 Dextrose (D50w Syringe) 50 ml Q15M PRN IV DECREASED GLUCOSE; Start 11/04/18 at 09:00 Glucagon (Glucagen) 1 mg Q15M PRN IM DECREASED GLUCOSE; Start 11/04/18 at 09:00 Glucose (Glutose) 15 gm Q15M PRN BUCCAL DECREASED GLUCOSE; Start 11/04/18 at 09:00 Miscellaneous Information Patients own medicat... BID@,16 XX Last administered on 11/20/18 16:16; Admin Dose 1 EA; Start 11/04/18 at 16:00 Sodium Hypochlorite (Dakins Diluted ()) 1 applic BID TP Last administered on 12/11/18 08:30; Admin Dose 1 APPLIC; Start 11/07/18 at 09:00 Hydralazine HCl (Apresoline) 10 mg Q4H PRN IV sbp >160 Last administered on 11/20/18 14:44; Admin Dose 10 MG; Start 11/08/18 at 09:00 Atropine Sulfate (Atropine) 0.5 mg PRN PRN IV SYMPTOMATIC BRADYCARDIA; Start 11/11/18 at 23:00 Heparin Sodium (Porcine) (Heparin (5000 Units/1ml)) 5,000 unit BID SC Last administered on 12/11/18 08:28; Admin Dose 5,000 UNIT; Start 11/14/18 at 21:00 Bisacodyl (Dulcolax Supp) 10 mg DAILY PRN [place] CONSTIPATION Last administered on 11/14/18 16:43; Admin Dose 10 MG; Start 11/14/18 at 16:30 IV Flush (NS 10 ml) 10 ml PRN PRN IV FLUSH LINE; Start 11/15/18 at 15:30 Gabapentin (Neurontin Liquid) 300 mg BID PO Last administered on 12/11/18 08:28; Admin Dose 300 MG; Start 11/18/18 at 21:00 Diagnostic Test (Pha) (Accu-Chek) 1 ea 02 XX Last administered on 12/09/18 02:39; Admin Dose 1 EA; Start 11/20/18 at 02:00 Ascorbic Acid (Vitamin C) 500 mg DAILY PO Last administered on 12/11/18 08:28; Admin Dose 500 MG; Start 11/20/18 at 09:00 Zinc Sulfate (Zinc Sulfate) 220 mg DAILY PO Last administered on 12/11/18 08:28; Admin Dose 220 MG; Start 11/20/18 at 09:00 Atorvastatin Calcium (Lipitor) 80 mg QHS PO Last administered on 12/10/18 21:29; Admin Dose 80 MG; Start 11/19/18 at 21:00 Lorazepam (Ativan) 0.5 mg Q6H PRN IV anxiety/agitation Last administered on 11/22/18 19:32; Admin Dose 0.5 MG; Start 11/22/18 at 11:00 Clopidogrel Bisulfate (plaVIX) 75 mg DAILY PO Last administered on 12/11/18 08:28; Admin Dose 75 MG; Start 11/23/18 at 09:00 Haloperidol (Haldol) 5 mg Q12H PRN IM agitation Last administered on 11/22/18 19:44; Admin Dose 5 MG; Start 11/22/18 at 14:30 Quetiapine Fumarate (Seroquel) 25 mg QHS PO Last administered on 12/10/18 21:29; Admin Dose 25 MG; Start 11/26/18 at 21:00 Hydralazine HCl (Apresoline) 25 mg TID PO Last administered on 11/28/18 21:08; Admin Dose 25 MG; Start 11/28/18 at 13:00; Status Hold Polyethylene Glycol (Miralax) 17 gm DAILY PRN PO constipation Last administered on 12/06/18 06:10; Admin Dose 17 GM; Start 11/29/18 at 08:02 Aspirin (Aspirin) 81 mg DAILY PO Last administered on 12/11/18 08:28; Admin Dose 81 MG; Start 11/29/18 at 09:00 Famotidine (Pepcid) 20 mg DAILY PO Last administered on 12/11/18 08:28; Admin Dose 20 MG; Start 11/29/18 at 09:00 Senna/Docusate Sodium (Senokot-S) 1 tab BID PRN PO constipation Last administered on 12/09/18 08:07; Admin Dose 1 TAB; Start 11/29/18 at 08:30 Lisinopril (Zestril) 2.5 mg DAILY PO Last administered on 12/10/18 08:35; Admin Dose 2.5 MG; Start 12/03/18 at 09:00 Furosemide (Lasix) 20 mg DAILY@0600 PO Last administered on 12/11/18 05:35; Admin Dose 20 MG; Start 12/04/18 at 10:30 Linezolid (Zyvox) 600 mg BID PO Last administered on 12/11/18 08:28; Admin Dose 600 MG; Start 12/06/18 at 14:00 Diagnostic Test (Pha) (Accu-Chek) 1 ea 02 XX Last administered on 12/09/18 02:39; Admin Dose 1 EA; Start 12/09/18 at 02:00 Insulin Aspart (Novolog Insulin Pen) NOVOLOG *MODERATE* ALGORITHM WITH MEALS BEDTIME SC Last administered on 12/11/18 12:07; Admin Dose 6 UNIT; Start 12/08/18 at 21:00 Insulin Aspart (Novolog Insulin Pen) 11 unit WITH MEALS SC Last administered on 12/11/18 12:06; Admin Dose 11 UNIT; Start 12/10/18 at 11:30 Insulin Glargine (Lantus) 35 units DAILY@0800 SC Last administered on 12/11/18 08:27; Admin Dose 35 UNITS; Start 12/11/18 at 08:00 KARL WOOD MD Dec 11, 2018 16:11
[2018-12-11 20:10] VITALS: BP 105/57; PULSE 101; RESP 20
[2018-12-11] MEDS: ACETAMINOPHEN 325 MG TAB PO PRN (21:09)
[2018-12-11] MEDS: QUETIAPINE 25 MG TAB PO SCH (21:09)
[2018-12-11] MEDS: ATORVASTATIN 80 MG TAB PO SCH (21:09)
[2018-12-12] MEDS: ACCU-CHEK XX SCH ×2 (02:07)
[2018-12-12 02:25] VITALS: BP 101/48; PULSE 95; RESP 18
[2018-12-12] MEDS: ACETAMINOPHEN 325 MG TAB PO PRN ×2 (05:14→23:56)
[2018-12-12] MEDS: FUROSEMIDE 20 MG TAB PO SCH (06:04)
[2018-12-12 07:50] VITALS: BP 109/71; PULSE 87; RESP 18
[2018-12-12] MEDS: LISINOPRIL 5 MG TAB PO SCH (08:01)
[2018-12-12] MEDS: ZYVOX 600 MG TAB PO SCH ×2 (08:16→20:39)
[2018-12-12] MEDS: CLOPIDOGREL 75 MG TAB PO SCH (08:16)
[2018-12-12] MEDS: GABAPENTIN (50 MG/ML PO SYG) PO SCH ×2 (08:16→22:24)
[2018-12-12] MEDS: ASCORBIC ACID 500 MG TAB PO SCH (08:16)
[2018-12-12] MEDS: ASPIRIN 81 MG TAB PO SCH (08:16)
[2018-12-12] MEDS: ZINC SULFATE 220 MG CAP PO SCH (08:16)
[2018-12-12] MEDS: DAKINS 0.0125%(1/40) 473 ML SOLUTION TP SCH ×2 (08:16→22:24)
[2018-12-12] MEDS: FAMOTIDINE 20 MG TAB PO SCH (08:16)
[2018-12-12] MEDS: INSULIN ASPART [NOVOLOG] 3 ML PEN SC SCH ×7 (08:18→20:41)
[2018-12-12] MEDS: INSULIN GLARGINE [LANTus] (100 UNITS/ML) SYG SC SCH (08:19)
[2018-12-12] MEDS: HEPARIN 5,000 UNIT/1 ML VIAL SC SCH ×2 (08:20→20:42)
--- NOTE | 2018-12-12 10:42 | CONS ---
Assessment/Plan Assessment/Plan Hospital Course (Demo Recall) No acute changes, looks comfortable no fevers Left groin wound culture grew coag negative staph and scant enterococcus, patient remains on doxycycline Bld cx + Staph Abx: Zyvox Physical examination: Well-developed elderly man who is in no distress head atraumatic normocephalic neck is supple chest rise symmetrical breath sounds CTA heart S1-S2, abdomen soft bowel sounds present extremities with left foot dressing intact Assessment: 1. Bacteremia, cw contaminant 2. UTI per ua==> neg cx 3. Status post cardiac arrest/non-ST elevation [place] 4. Status post acute respiratory failure, possibly aspirated 5. Peripheral arterial disease status post left femoral to posterior tibial bypass 11/08/18 6. Diabetes 7. History of left foot second toe amputation Plan: Stable, left groin wound culture growing staph and enterococcus, continue Zyvox, repeat cx with next wound vac change Consultation Date/Type/Reason Admit Date/Time Nov 04, 2018 at 07:34 Initial Consult Date Type of Consult id Requesting Provider: KARL WOOD MD Date/Time of Note DATE: 12/12/18 TIME: 10:42 Exam/Review of Systems Exam Vitals Vital Signs Date Temp Pulse Resp B/P (MAP) Pulse Ox O2 O2 Flow FiO2 Time Delivery Rate 12/12/18 99.7 87 18 109/71 98 07:50 (84) 12/10/18 Room Air 14:00 Intake and Output 12/11/18 12/11/18 12/12/18 1515:00 23:00 07:00 IntakeIntake Total 740 ml 1000 ml 250 ml BalanceBalance 740 ml 1000 ml 250 ml Results Result Diagram: 12/09/18 0502 12/09/18 0502 Results 24hrs Laboratory Tests Test 12/11/18 12:04 12/11/18 17:15 12/11/18 21:05 12/12/18 02:10 Bedside Glucose 237 H 219 188 171 Test 12/12/18 08:14 Bedside Glucose 184 Medications Medication Current Medications Ergocalciferol (Drisdol) 50,000 unit Sa PO Last administered on 12/07/18at 08:55; Admin Dose 50,000 UNIT; Start 11/09/18 at 09:00 Miscellaneous Medication (Bystolic) 20 mg DAILY PO Last administered on 11/11/18at 09:03; Admin Dose 20 MG; Start 11/04/18 at 09:00; Status Hold Clonidine (Catapres) 0.1 mg Q6H PRN PO SBP>160 Last administered on 11/19/18 03:04; Admin Dose 0.1 MG; Start 11/04/18 at 09:00 IV Flush (NS 3 ml) 3 ml PER PROTOCOL IV ; Start 11/04/18 at 09:00 Ondansetron HCl (Zofran Inj) 4 mg Q6H PRN IV NAUSEA/VOMITING; Start 11/04/18 at 09:00 Acetaminophen (Tylenol Tab) 650 mg Q6H PRN PO .PAIN 1-3 OR TEMP Last administe red on 12/12/18at 05:14; Admin Dose 650 MG; Start 11/04/18 at 09:00 Miscellaneous Information 1 ea NOTE XX ; Start 11/04/18 at 09:00 Glucose (Glutose) 15 gm Q15M PRN PO DECREASED GLUCOSE; Start 11/04/18 at 09:00 Glucose (Glutose) 22.5 gm Q15M PRN PO DECREASED GLUCOSE; Start 11/04/18 at 09:00 Dextrose (D50w Syringe) 25 ml Q15M PRN IV DECREASED GLUCOSE; Start 11/04/18 at 09:00 Dextrose (D50w Syringe) 50 ml Q15M PRN IV DECREASED GLUCOSE; Start 11/04/18 at 09:00 Glucagon (Glucagen) 1 mg Q15M PRN IM DECREASED GLUCOSE; Start 11/04/18 at 09:00 Glucose (Glutose) 15 gm Q15M PRN BUCCAL DECREASED GLUCOSE; Start 11/04/18 at 09:00 Miscellaneous Information Patients own medicat... BID@,16 XX Last administered on 11/20/18at 16:16; Admin Dose 1 EA; Start 11/04/18 at 16:00 Sodium Hypochlorite (Dakins Diluted ()) 1 applic BID TP Last administered on 12/12/18 08:16; Admin Dose 1 APPLIC; Start 11/07/18 at 09:00 Hydralazine HCl (Apresoline) 10 mg Q4H PRN IV sbp >160 Last administered on 11/20/18at 14:44; Admin Dose 10 MG; Start 11/08/18 at 09:00 Atropine Sulfate (Atropine) 0.5 mg PRN PRN IV SYMPTOMATIC BRADYCARDIA; Start 11/11/18 at 23:00 Heparin Sodium (Porcine) (Heparin (5000 Units/1ml)) 5,000 unit BID SC Last administered on 12/12/18 08:20; Admin Dose 5,000 UNIT; Start 11/14/18 at 21:00 Bisacodyl (Dulcolax Supp) 10 mg DAILY PRN [place] CONSTIPATION Last administered on 11/14/18 16:43; Admin Dose 10 MG; Start 11/14/18 at 16:30 IV Flush (NS 10 ml) 10 ml PRN PRN IV FLUSH LINE; Start 11/15/18 at 15:30 Gabapentin (Neurontin Liquid) 300 mg BID PO Last administered on 12/12/18 08:16; Admin Dose 300 MG; Start 11/18/18 at 21:00 Diagnostic Test (Pha) (Accu-Chek) 1 ea 02 XX Last administered on 12/12/18 02:07; Admin Dose 1 EA; Start 11/20/18 at 02:00 Ascorbic Acid (Vitamin C) 500 mg DAILY PO Last administered on 12/12/18 08:16; Admin Dose 500 MG; Start 11/20/18 at 09:00 Zinc Sulfate (Zinc Sulfate) 220 mg DAILY PO Last administered on 12/12/18 08:16; Admin Dose 220 MG; Start 11/20/18 at 09:00 Atorvastatin Calcium (Lipitor) 80 mg QHS PO Last administered on 12/11/18 21:09; Admin Dose 80 MG; Start 11/19/18 at 21:00 Lorazepam (Ativan) 0.5 mg Q6H PRN IV anxiety/agitation Last administered on 11/22/18 19:32; Admin Dose 0.5 MG; Start 11/22/18 at 11:00 Clopidogrel Bisulfate (plaVIX) 75 mg DAILY PO Last administered on 12/12/18 08:16; Admin Dose 75 MG; Start 11/23/18 at 09:00 Haloperidol (Haldol) 5 mg Q12H PRN IM agitation Last administered on 11/22/18 19:44; Admin Dose 5 MG; Start 11/22/18 at 14:30 Quetiapine Fumarate (Seroquel) 25 mg QHS PO Last administered on 12/11/18 21:09; Admin Dose 25 MG; Start 11/26/18 at 21:00 Hydralazine HCl (Apresoline) 25 mg TID PO Last administered on 11/28/18 21:08; Admin Dose 25 MG; Start 11/28/18 at 13:00; Status Hold Polyethylene Glycol (Miralax) 17 gm DAILY PRN PO constipation Last administered on 12/06/18 06:10; Admin Dose 17 GM; Start 11/29/18 at 08:02 Aspirin (Aspirin) 81 mg DAILY PO Last administered on 12/12/18 08:16; Admin Dose 81 MG; Start 11/29/18 at 09:00 Famotidine (Pepcid) 20 mg DAILY PO Last administered on 12/12/18 08:16; Admin Dose 20 MG; Start 11/29/18 at 09:00 Senna/Docusate Sodium (Senokot-S) 1 tab BID PRN PO constipation Last administered on 12/09/18 08:07; Admin Dose 1 TAB; Start 11/29/18 at 08:30 Lisinopril (Zestril) 2.5 mg DAILY PO Last administered on 12/10/18 08:35; Admin Dose 2.5 MG; Start 12/03/18 at 09:00 Furosemide (Lasix) 20 mg DAILY@0600 PO Last administered on 12/12/18 06:04; Admin Dose 20 MG; Start 12/04/18 at 10:30 Linezolid (Zyvox) 600 mg BID PO Last administered on 12/12/18 08:16; Admin Dose 600 MG; Start 12/06/18 at 14:00 Diagnostic Test (Pha) (Accu-Chek) 1 ea 02 XX Last administered on 12/12/18 02:07; Admin Dose 1 EA; Start 12/09/18 at 02:00 Insulin Aspart (Novolog Insulin Pen) NOVOLOG *MODERATE* ALGORITHM WITH MEALS BEDTIME SC Last administered on 12/12/18 08:19; Admin Dose 4 UNIT; Start 12/08/18 at 21:00 Insulin Aspart (Novolog Insulin Pen) 11 unit WITH MEALS SC Last administered on 12/12/18 08:18; Admin Dose 11 UNIT; Start 12/10/18 at 11:30 Insulin Glargine (Lantus) 35 units DAILY@0800 SC Last administered on 12/12/18at 08:19; Admin Dose 35 UNITS; Start 12/11/18 at 08:00 HERRERA MURILLO NP Dec 12, 2018 10:42
--- NOTE | 2018-12-12 13:45 | CONS ---
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 Wounds appear epithelialized. Xeroform and dry dressings applied for protection. Recommend continue use of post op shoe. Patient would benefit from diabetic shoes. No further podiatric procedures planned at this time. Offload heels with pillows and/or heel protectors. Patient stable from podiatry standpoint for discharge recommend follow up in outpatient clinic. Consultation Date/Type/Reason Admit Date/Time Nov 04, 2018 at 07:34 Initial Consult Date Requesting Provider: KARL WOOD MD Date/Time of Note DATE: 12/12/18 TIME: 13:45 24 HR Interval Summary Free Text/Dictation No acute events overnight. Exam/Review of Systems Exam Vitals Vital Signs Date Temp Pulse Resp B/P (MAP) Pulse Ox O2 O2 Flow FiO2 Time Delivery Rate 12/12/18 99.7 87 18 109/71 98 07:50 (84) 12/10/18 Room Air 14:00 Intake and Output 12/11/18 12/11/18 12/12/18 1515:00 23:00 07:00 IntakeIntake Total 740 ml 1000 ml 250 ml BalanceBalance 740 ml 1000 ml 250 ml Exam Left 5th digit surgical site showing epithelialization Left hallux ulceration showing signs of epithelialization with sanguinous crust formation Absent protective sensations Left 2nd digit amputation site appreciated. No erythema noted. Foot warm to touch Results Result Diagram: 12/09/18 0502 12/09/18 0502 Results 24hrs Laboratory Tests Test 12/11/18 17:15 12/11/18 21:05 12/12/18 02:10 12/12/18 08:14 Bedside Glucose 219 188 171 184 Test 12/12/18 12:00 Bedside Glucose 127 Medications Medication Current Medications Ergocalciferol (Drisdol) 50,000 unit Sa PO Last administered on 12/07/18at 08:55; Admin Dose 50,000 UNIT; Start 11/09/18 at 09:00 Miscellaneous Medication (Bystolic) 20 mg DAILY PO Last administered on 11/11/18at 09:03; Admin Dose 20 MG; Start 11/04/18 at 09:00; Status Hold Clonidine (Catapres) 0.1 mg Q6H PRN PO SBP>160 Last administered on 11/19/18 03:04; Admin Dose 0.1 MG; Start 11/04/18 at 09:00 IV Flush (NS 3 ml) 3 ml PER PROTOCOL IV ; Start 11/04/18 at 09:00 Ondansetron HCl (Zofran Inj) 4 mg Q6H PRN IV NAUSEA/VOMITING; Start 11/04/18 at 09:00 Acetaminophen (Tylenol Tab) 650 mg Q6H PRN PO .PAIN 1-3 OR TEMP Last administered on 12/12/18 05:14; Admin Dose 650 MG; Start 11/04/18 at 09:00 Miscellaneous Information 1 ea NOTE XX ; Start 11/04/18 at 09:00 Glucose (Glutose) 15 gm Q15M PRN PO DECREASED GLUCOSE; Start 11/04/18 at 09:00 Glucose (Glutose) 22.5 gm Q15M PRN PO DECREASED GLUCOSE; Start 11/04/18 at 09:00 Dextrose (D50w Syringe) 25 ml Q15M PRN IV DECREASED GLUCOSE; Start 11/04/18 at 09:00 Dextrose (D50w Syringe) 50 ml Q15M PRN IV DECREASED GLUCOSE; Start 11/04/18 at 09:00 Glucagon (Glucagen) 1 mg Q15M PRN IM DECREASED GLUCOSE; Start 11/04/18 at 09:00 Glucose (Glutose) 15 gm Q15M PRN BUCCAL DECREASED GLUCOSE; Start 11/04/18 at 09:00 Miscellaneous Information Patients own medicat... BID@10,16 XX Last administered on 11/20/18at 16:16; Admin Dose 1 EA; Start 11/04/18 at 16:00 Sodium Hypochlorite (Dakins Diluted (40)) 1 applic BID TP Last administered on 12/12/18 08:16; Admin Dose 1 APPLIC; Start 11/07/18 at 09:00 Hydralazine HCl (Apresoline) 10 mg Q4H PRN IV sbp >160 Last administered on 11/20/18at 14:44; Admin Dose 10 MG; Start 11/08/18 at 09:00 Atropine Sulfate (Atropine) 0.5 mg PRN PRN IV SYMPTOMATIC BRADYCARDIA; Start 11/11/18 at 23:00 Heparin Sodium (Porcine) (Heparin (5000 Units/1ml)) 5,000 unit BID SC Last administered on 12/12/18 08:20; Admin Dose 5,000 UNIT; Start 11/14/18 at 21:00 Bisacodyl (Dulcolax Supp) 10 mg DAILY PRN [place] CONSTIPATION Last administered on 11/14/18 16:43; Admin Dose 10 MG; Start 11/14/18 at 16:30 IV Flush (NS 10 ml) 10 ml PRN PRN IV FLUSH LINE; Start 11/15/18 at 15:30 Gabapentin (Neurontin Liquid) 300 mg BID PO Last administered on 12/12/18 08:16; Admin Dose 300 MG; Start 11/18/18 at 21:00 Diagnostic Test (Pha) (Accu-Chek) 1 ea 02 XX Last administered on 12/12/18 02:07; Admin Dose 1 EA; Start 11/20/18 at 02:00 Ascorbic Acid (Vitamin C) 500 mg DAILY PO Last administered on 12/12/18 08:16; Admin Dose 500 MG; Start 11/20/18 at 09:00 Zinc Sulfate (Zinc Sulfate) 220 mg DAILY PO Last administered on 12/12/18 08:16; Admin Dose 220 MG; Start 11/20/18 at 09:00 Atorvastatin Calcium (Lipitor) 80 mg QHS PO Last administered on 12/11/18 21:09; Admin Dose 80 MG; Start 11/19/18 at 21:00 Lorazepam (Ativan) 0.5 mg Q6H PRN IV anxiety/agitation Last administered on 11/22/18 19:32; Admin Dose 0.5 MG; Start 11/22/18 at 11:00 Clopidogrel Bisulfate (plaVIX) 75 mg DAILY PO Last administered on 12/12/18 08:16; Admin Dose 75 MG; Start 11/23/18 at 09:00 Haloperidol (Haldol) 5 mg Q12H PRN IM agitation Last administered on 11/22/18 19:44; Admin Dose 5 MG; Start 11/22/18 at 14:30 Quetiapine Fumarate (Seroquel) 25 mg QHS PO Last administered on 12/11/18 21:09; Admin Dose 25 MG; Start 11/26/18 at 21:00 Hydralazine HCl (Apresoline) 25 mg TID PO Last administered on 11/28/18 21:08; Admin Dose 25 MG; Start 11/28/18 at 13:00; Status Hold Polyethylene Glycol (Miralax) 17 gm DAILY PRN PO constipation Last administered on 12/06/18 06:10; Admin Dose 17 GM; Start 11/29/18 at 08:02 Aspirin (Aspirin) 81 mg DAILY PO Last administered on 12/12/18 08:16; Admin Dose 81 MG; Start 11/29/18 at 09:00 Famotidine (Pepcid) 20 mg DAILY PO Last administered on 12/12/18 08:16; Admin Dose 20 MG; Start 11/29/18 at 09:00 Senna/Docusate Sodium (Senokot-S) 1 tab BID PRN PO constipation Last administered on 12/09/18 08:07; Admin Dose 1 TAB; Start 11/29/18 at 08:30 Lisinopril (Zestril) 2.5 mg DAILY PO Last administered on 12/10/18 08:35; Ad min Dose 2.5 MG; Start 12/03/18 at 09:00 Furosemide (Lasix) 20 mg DAILY@0600 PO Last administered on 12/12/18 06:04; Admin Dose 20 MG; Start 12/04/18 at 10:30 Linezolid (Zyvox) 600 mg BID PO Last administered on 12/12/18 08:16; Admin Dose 600 MG; Start 12/06/18 at 14:00 Diagnostic Test (Pha) (Accu-Chek) 1 ea 02 XX Last administered on 12/12/18 02:07; Admin Dose 1 EA; Start 12/09/18 at 02:00 Insulin Aspart (Novolog Insulin Pen) NOVOLOG *MODERATE* ALGORITHM WITH MEALS BEDTIME SC Last administered on 12/12/18 08:19; Admin Dose 4 UNIT; Start 12/08/18 at 21:00 Insulin Aspart (Novolog Insulin Pen) 11 unit WITH MEALS SC Last administered on 12/12/18 12:05; Admin Dose 11 UNIT; Start 12/10/18 at 11:30 Insulin Glargine (Lantus) 35 units DAILY@0800 SC Last administered on 12/12/18at 08:19; Admin Dose 35 UNITS; Start 12/11/18 at 08:00 IVELISSE BLACKWELL DPM Dec 12, 2018 13:45
[2018-12-12 14:50] VITALS: BP 109/61; PULSE 93; RESP 18
--- NOTE | 2018-12-12 16:11 | PN ---
Date/Time of Note Date/Time of Note DATE: 12/12/18 TIME: 16:05 Assessment/Plan VTE Prophylaxis Risk score (from Ns)>0 risk: 3 SCD applied (from Ns): No SCD contraindicated: low risk/ambulating Pharmacological prophylaxis: NA/contraindicated Pharm contraindication: low risk/ambulating Lines/Catheters IV Catheter Type (from [facility]): [facility] Urinary Cath still in place: No Assessment/Plan Assessment/Plan 1. Drainage from surgical site and groin area - Wound vac in place and appreciate wound care consultation for dressing changes - Awaiting full scope insurance in order to arrange HH for wound vac dressing changes twice a week 2. Groin wound infection, enterococcus and Coag neg staph - wound vac in place per Vasc recommendations - ID on board for antibiotic recommendations 3. 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 Completed course of antibiotics - Continue local wound care - Podiatry on board and appreciate consultation. no further procedures scheduled at this time 4. Left frontal CVA - Neurology on board and appreciate recommendations - continue on aspirin and Plavix and statin 5. left-sided internal carotid artery stenosis - 25% per CT angiogram, continue aspirin, statin, Plavix per vascular surgeon 6. Acute hypoxic respiratory failure-resolved - doing well on room air - Pulmonology consultation appreciated 7. Cardiac arrest s/p ROSC - Cardiology on board and appreciate recommendations - ECHO with preserved EF 8. Severe peripheral vascular disease - s/p left femoral endarterectomy, iliofemoral bypass and femoral to posterior tibial bypass done on November 08, 2018 - Vascular surgery consultation appreciated. Continue aspirin and Plavix 9. Diabetes Mellitus - A1c noted - continue lantus and ISS. adjust as needed. Will add Metformin as well for better sugar control 10. Acute kidney injury- resolved - nephrology consultation appreciated 11. Essential HTN - Continue home medications at this time as tolerated 12. Peripheral neuropathy - cont. gabapentin 13. HLD - On statin 14. Chronic anemia - Stable H&H. Monitor - no need for transfusions at this time 15. Urinary retention, resolved - Urology on board and appreciate recommendations. - voiding without any issues 16. Disposition - Once approved for full scope medical, can arrange for HH for wound vac changes Result Diagram: 12/09/18 0502 12/09/18 0502 Results 24hrs Laboratory Tests Test 12/11/18 17:15 12/11/18 21:05 12/12/18 02:10 12/12/18 08:14 Bedside Glucose 219 188 171 184 Test 12/12/18 12:00 Bedside Glucose 127 Subjective 24 Hr Interval Summary Free Text/Dictation Patient denies any acute issues and awaiting insurance. Exam/Review of Systems Exam Vitals Vital Signs Date Temp Pulse Resp B/P (MAP) Pulse Ox O2 O2 Flow FiO2 Time Delivery Rate 12/12/18 97.7 93 18 109/61 100 Room Air 14:50 (77) Intake and Output 12/11/18 12/11/18 12/12/18 1515:00 23:00 07:00 IntakeIntake Total 740 ml 1000 ml 250 ml BalanceBalance 740 ml 1000 ml 250 ml Exam General: Patient is laying in bed responding to questions appropriately Neck: Supple, nontender, midline Respiratory: diminished bilaterally. no wheezing Cardiovascular: regular rate and rhythm, no obvious murmurs Gastrointestinal: non-tender to palpation, bowel sounds heard. Neurological: Moves all extremities spontaneously Skin: No new skin lesions, wound vac L groin in place Results Results 24hrs Laboratory Tests Test 12/11/18 17:15 12/11/18 21:05 12/12/18 02:10 12/12/18 08:14 Bedside Glucose 219 188 171 184 Test 12/12/18 12:00 Bedside Glucose 127 Medications Medication Current Medications Ergocalciferol (Drisdol) 50,000 unit Sa PO Last administered on 12/07/18at 08:55; Admin Dose 50,000 UNIT; Start 11/09/18 at 09:00 Miscellaneous Medication (Bystolic) 20 mg DAILY PO Last administered on 11/11/18 at 09:03; Admin Dose 20 MG; Start 11/04/18 at 09:00; Status Hold Clonidine (Catapres) 0.1 mg Q6H PRN PO SBP>160 Last administered on 11/19/18at 03:04; Admin Dose 0.1 MG; Start 11/04/18 at 09:00 IV Flush (NS 3 ml) 3 ml PER PROTOCOL IV ; Start 11/04/18 at 09:00 Ondansetron HCl (Zofran Inj) 4 mg Q6H PRN IV NAUSEA/VOMITING; Start 11/04/18 at 09:00 Acetaminophen (Tylenol Tab) 650 mg Q6H PRN PO .PAIN 1-3 OR TEMP Last administered on 12/12/18 05:14; Admin Dose 650 MG; Start 11/04/18 at 09:00 Miscellaneous Information 1 ea NOTE XX ; Start 11/04/18 at 09:00 Glucose (Glutose) 15 gm Q15M PRN PO DECREASED GLUCOSE; Start 11/04/18 at 09:00 Glucose (Glutose) 22.5 gm Q15M PRN PO DECREASED GLUCOSE; Start 11/04/18 at 09:00 Dextrose (D50w Syringe) 25 ml Q15M PRN IV DECREASED GLUCOSE; Start 11/04/18 at 09:00 Dextrose (D50w Syringe) 50 ml Q15M PRN IV DECREASED GLUCOSE; Start 11/04/18 at 09:00 Glucagon (Glucagen) 1 mg Q15M PRN IM DECREASED GLUCOSE; Start 11/04/18 at 09:00 Glucose (Glutose) 15 gm Q15M PRN BUCCAL DECREASED GLUCOSE; Start 11/04/18 at 09:00 Miscellaneous Information Patients own medicat... BID@10,16 XX Last administered on 11/20/18 16:16; Admin Dose 1 EA; Start 11/04/18 at 16:00 Sodium Hypochlorite (Dakins Diluted ()) 1 applic BID TP Last administered on 12/12/18 08:16; Admin Dose 1 APPLIC; Start 11/07/18 at 09:00 Hydralazine HCl (Apresoline) 10 mg Q4H PRN IV sbp >160 Last administered on 11/20/18 14:44; Admin Dose 10 MG; Start 11/08/18 at 09:00 Atropine Sulfate (Atropine) 0.5 mg PRN PRN IV SYMPTOMATIC BRADYCARDIA; Start 11/11/18 at 23:00 Heparin Sodium (Porcine) (Heparin (5000 Units/1ml)) 5,000 unit BID SC Last administered on 12/12/18 08:20; Admin Dose 5,000 UNIT; Start 11/14/18 at 21:00 Bisacodyl (Dulcolax Supp) 10 mg DAILY PRN [place] CONSTIPATION Last administered on 11/14/18 16:43; Admin Dose 10 MG; Start 11/14/18 at 16:30 IV Flush (NS 10 ml) 10 ml PRN PRN IV FLUSH LINE; Start 11/15/18 at 15:30 Gabapentin (Neurontin Liquid) 300 mg BID PO Last administered on 12/12/18 08:16; Admin Dose 300 MG; Start 11/18/18 at 21:00 Diagnostic Test (Pha) (Accu-Chek) 1 ea 02 XX Last administered on 12/12/18 02:07; Admin Dose 1 EA; Start 11/20/18 at 02:00 Ascorbic Acid (Vitamin C) 500 mg DAILY PO Last administered on 12/12/18 08:16; Admin Dose 500 MG; Start 11/20/18 at 09:00 Zinc Sulfate (Zinc Sulfate) 220 mg DAILY PO Last administered on 12/12/18 08:16; Admin Dose 220 MG; Start 11/20/18 at 09:00 Atorvastatin Calcium (Lipitor) 80 mg QHS PO Last administered on 12/11/18 21:09; Admin Dose 80 MG; Start 11/19/18 at 21:00 Lorazepam (Ativan) 0.5 mg Q6H PRN IV anxiety/agitation Last administered on 11/22/18 19:32; Admin Dose 0.5 MG; Start 11/22/18 at 11:00 Clopidogrel Bisulfate (plaVIX) 75 mg DAILY PO Last administered on 12/12/18 08:16; Admin Dose 75 MG; Start 11/23/18 at 09:00 Haloperidol (Haldol) 5 mg Q12H PRN IM agitation Last administered on 11/22/18 19:44; Admin Dose 5 MG; Start 11/22/18 at 14:30 Quetiapine Fumarate (Seroquel) 25 mg QHS PO Last administered on 12/11/18 21:09; Admin Dose 25 MG; Start 11/26/18 at 21:00 Hydralazine HCl (Apresoline) 25 mg TID PO Last administered on 11/28/18 21:08; Admin Dose 25 MG; Start 11/28/18 at 13:00; Status Hold Polyethylene Glycol (Miralax) 17 gm DAILY PRN PO constipation Last administered on 12/06/18 06:10; Admin Dose 17 GM; Start 11/29/18 at 08:02 Aspirin (Aspirin) 81 mg DAILY PO Last administered on 12/12/18 08:16; Admin Dose 81 MG; Start 11/29/18 at 09:00 Famotidine (Pepcid) 20 mg DAILY PO Last administered on 12/12/18 08:16; Admin Dose 20 MG; Start 11/29/18 at 09:00 Senna/Docusate Sodium (Senokot-S) 1 tab BID PRN PO constipation Last administered on 12/09/18 08:07; Admin Dose 1 TAB; Start 11/29/18 at 08:30 Lisinopril (Zestril) 2.5 mg DAILY PO Last administered on 12/10/18 08:35; Admin Dose 2.5 MG; Start 12/03/18 at 09:00 Furosemide (Lasix) 20 mg DAILY@0600 PO Last administered on 12/12/18 06:04; Admin Dose 20 MG; Start 12/04/18 at 10:30 Linezolid (Zyvox) 600 mg BID PO Last administered on 12/12/18 08:16; Admin Dose 600 MG; Start 12/06/18 at 14:00 Diagnostic Test (Pha) (Accu-Chek) 1 ea 02 XX Last administered on 12/12/18 02:07; Admin Dose 1 EA; Start 12/09/18 at 02:00 Insulin Aspart (Novolog Insulin Pen) NOVOLOG *MODERATE* ALGORITHM WITH MEALS BEDTIME SC Last administered on 12/12/18 08:19; Admin Dose 4 UNIT; Start 12/08/18 at 21:00 Insulin Aspart (Novolog Insulin Pen) 11 unit WITH MEALS SC Last administered on 12/12/18 12:05; Admin Dose 11 UNIT; Start 12/10/18 at 11:30 Insulin Glargine (Lantus) 35 units DAILY@0800 SC Last administered on 12/12/18 08:19; Admin Dose 35 UNITS; Start 12/11/18 at 08:00 KARL WOOD MD Dec 12, 2018 16:11
[2018-12-12] MEDS: metFORMIN 500 MG TAB PO SCH (17:26)
--- NOTE | 2018-12-12 19:15 | CONS ---
Assessment/Plan Assessment/Plan Hospital Course (Demo Recall) IMPRESSION: 1. Preoperative evaluation prior to possible need for peripheral revascularization surgery.-neg trop x 3 and NL EF by echo with no sig valve abnl. Echo repeat 11/13 with NL EF 2. Peripheral arterial disease with nonhealing gangrenous changes in left toe ulceration. 3. Hypertension-now tolerating low dose ACEI 4. Dyslipidemia. 5. Diabetes mellitus. 6. s/p cardiopulmonary arrest 7. Bradycardic intermittent by tele-now resolved 8. Positive troponin after arrest-? secondary to or primary to arrest, likely secondary to arrest, type 2 demand infarct, as no signifcant uptrend and now downtrended to negative 9. Resp failure-s/p extubation 10. CVA-Acute by MRI 11.Groin wound 12. UTI-fungal Recc: -Now on med-surg -Continue asa/plavix/statin for cva -serial ecg's -Continue now linezolid and f/u bld cx's -local wound care -follow volume status closely now back on daily PO lasix -follow MS closely -Continue now zestril mononotherapy at reduced dose which patient is tolerating -Check BMP in AM Consultation Date/Type/Reason Admit Date/Time Nov 04, 2018 at 07:34 Initial Consult Date 11/06/18 Type of Consult Cardiology Reason for Consultation HTN/CHF Requesting Provider: KARL WOOD MD Date/Time of Note DATE: 12/12/18 TIME: 19:13 Exam/Review of Systems Vital Signs Vitals Vital Signs Date Temp Pulse Resp B/P (MAP) Pulse Ox O2 O2 Flow FiO2 Time Delivery Rate 12/12/18 97.7 93 18 109/61 100 Room Air 14:50 (77) Intake and Output 12/11/18 12/11/18 12/12/18 1515:00 23:00 07:00 IntakeIntake Total 740 ml 1000 ml 250 ml BalanceBalance 740 ml 1000 ml 250 ml Exam Exam Review of Systems: CONSTITUTIONAL: No fevers, chills. PULMONARY: No sob CARDIOVASCULAR: No chest pain/palpitations GASTROINTESTINAL: No nausea/vomiting. GENITOURINARY: No hematuria/dysuria. MUSCULOSKELETAL: No myagias/arthalgias. PSYCHIATRIC: The patient denies depression. NEUROLOGIC: No weakness Constitutional: alert, oriented Psych: no complaints Head: normocephalic ENMT: mucosa pink and moist Neck: supple, jvd (9 cm water) Respiratory: clear to auscultation Cardiovascular: regular rate and rhythm Gastrointestinal: soft, non-tender Extremities: edema (trace LLE with foor covered by dressing) Neurological: other (No focal deficits) Labs Result Diagram: 12/09/18 0502 12/09/18 0502 Results 24hrs Laboratory Tests Test 12/11/18 21:05 12/12/18 02:10 12/12/18 08:14 12/12/18 12:00 Bedside Glucose 188 171 184 127 Test 12/12/18 17:21 Bedside Glucose 130 Medications Medications Current Medications Ergocalciferol (Drisdol) 50,000 unit Sa PO Last administered on 12/07/18at 08:55; Admin Dose 50,000 UNIT; Start 11/09/18 at 09:00 Miscellaneous Medication (Bystolic) 20 mg DAILY PO Last administered on 11/11/18at 09:03; Admin Dose 20 MG; Start 11/04/18 at 09:00; Status Hold Clonidine (Catapres) 0.1 mg Q6H PRN PO SBP>160 Last administered on 11/19/18at 03:04; Admin Dose 0.1 MG; Start 11/04/18 at 09:00 IV Flush (NS 3 ml) 3 ml PER PROTOCOL IV ; Start 11/04/18 at 09:00 Ondansetron HCl (Zofran Inj) 4 mg Q6H PRN IV NAUSEA/VOMITING; Start 11/04/18 at 09:00 Acetaminophen (Tylenol Tab) 650 mg Q6H PRN PO .PAIN 1-3 OR TEMP Last administered on 12/12/18at 05:14; Admin Dose 650 MG; Start 11/04/18 at 09:00 Miscellaneous Information 1 ea NOTE XX ; Start 11/04/18 at 09:00 Glucose (Glutose) 15 gm Q15M PRN PO DECREASED GLUCOSE; Start 11/04/18 at 09:00 Glucose (Glutose) 22.5 gm Q15M PRN PO DECREASED GLUCOSE; Start 11/04/18 at 09:00 Dextrose (D50w Syringe) 25 ml Q15M PRN IV DECREASED GLUCOSE; Start 11/04/18 at 09:00 Dextrose (D50w Syringe) 50 ml Q15M PRN IV DECREASED GLUCOSE; Start 11/04/18 at 09:00 Glucagon (Glucagen) 1 mg Q15M PRN IM DECREASED GLUCOSE; Start 11/04/18 at 09:00 Glucose (Glutose) 15 gm Q15M PRN BUCCAL DECREASED GLUCOSE; Start 11/04/18 at 09:00 Miscellaneous Information Patients own medicat... BID@10,16 XX Last administered on 11/20/18 16:16; Admin Dose 1 EA; Start 11/04/18 at 16:00 Sodium Hypochlorite (Dakins Diluted ()) 1 applic BID TP Last administered on 12/12/18 08:16; Admin Dose 1 APPLIC; Start 11/07/18 at 09:00 Hydralazine HCl (Apresoline) 10 mg Q4H PRN IV sbp >160 Last administered on 11/20/18 14:44; Admin Dose 10 MG; Start 11/08/18 at 09:00 Atropine Sulfate (Atropine) 0.5 mg PRN PRN IV SYMPTOMATIC BRADYCARDIA; Start 11/11/18 at 23:00 Heparin Sodium (Porcine) (Heparin (5000 Units/1ml)) 5,000 unit BID SC Last adm inistered on 12/12/18 08:20; Admin Dose 5,000 UNIT; Start 11/14/18 at 21:00 Bisacodyl (Dulcolax Supp) 10 mg DAILY PRN [place] CONSTIPATION Last administered on 11/14/18 16:43; Admin Dose 10 MG; Start 11/14/18 at 16:30 IV Flush (NS 10 ml) 10 ml PRN PRN IV FLUSH LINE; Start 11/15/18 at 15:30 Gabapentin (Neurontin Liquid) 300 mg BID PO Last administered on 12/12/18 08:16; Admin Dose 300 MG; Start 11/18/18 at 21:00 Diagnostic Test (Pha) (Accu-Chek) 1 ea 02 XX Last administered on 12/12/18 02:07; Admin Dose 1 EA; Start 11/20/18 at 02:00 Ascorbic Acid (Vitamin C) 500 mg DAILY PO Last administered on 12/12/18 08:16; Admin Dose 500 MG; Start 11/20/18 at 09:00 Zinc Sulfate (Zinc Sulfate) 220 mg DAILY PO Last administered on 12/12/18 08:16; Admin Dose 220 MG; Start 11/20/18 at 09:00 Atorvastatin Calcium (Lipitor) 80 mg QHS PO Last administered on 12/11/18 21:09; Admin Dose 80 MG; Start 11/19/18 at 21:00 Lorazepam (Ativan) 0.5 mg Q6H PRN IV anxiety/agitation Last administered on 11/22/18 19:32; Admin Dose 0.5 MG; Start 11/22/18 at 11:00 Clopidogrel Bisulfate (plaVIX) 75 mg DAILY PO Last administered on 12/12/18 08:16; Admin Dose 75 MG; Start 11/23/18 at 09:00 Haloperidol (Haldol) 5 mg Q12H PRN IM agitation Last administered on 11/22/18 19:44; Admin Dose 5 MG; Start 11/22/18 at 14:30 Quetiapine Fumarate (Seroquel) 25 mg QHS PO Last administered on 12/11/18 21:09; Admin Dose 25 MG; Start 11/26/18 at 21:00 Hydralazine HCl (Apresoline) 25 mg TID PO Last administered on 11/28/18 21:08; Admin Dose 25 MG; Start 11/28/18 at 13:00; Status Hold Polyethylene Glycol (Miralax) 17 gm DAILY PRN PO constipation Last administered on 12/06/18 06:10; Admin Dose 17 GM; Start 11/29/18 at 08:02 Aspirin (Aspirin) 81 mg DAILY PO Last administered on 12/12/18 08:16; Admin Dose 81 MG; Start 11/29/18 at 09:00 Famotidine (Pepcid) 20 mg DAILY PO Last administered on 12/12/18 08:16; Admin Dose 20 MG; Start 11/29/18 at 09:00 Senna/Docusate Sodium (Senokot-S) 1 tab BID PRN PO constipation Last administered on 12/09/18 08:07; Admin Dose 1 TAB; Start 11/29/18 at 08:30 Lisinopril (Zestril) 2.5 mg DAILY PO Last administered on 12/10/18 08:35; Admin Dose 2.5 MG; Start 12/03/18 at 09:00 Furosemide (Lasix) 20 mg DAILY@0600 PO Last administered on 12/12/18 06:04; Admin Dose 20 MG; Start 12/04/18 at 10:30 Linezolid (Zyvox) 600 mg BID PO Last administered on 12/12/18 08:16; Admin Dose 600 MG; Start 12/06/18 at 14:00 Diagnostic Test (Pha) (Accu-Chek) 1 ea 02 XX Last administered on 12/12/18 02:07; Admin Dose 1 EA; Start 12/09/18 at 02:00 Insulin Aspart (Novolog Insulin Pen) NOVOLOG *MODERATE* ALGORITHM WITH MEALS BEDTIME SC Last administered on 12/12/18 08:19; Admin Dose 4 UNIT; Start 12/08/18 at 21:00 Insulin Aspart (Novolog Insulin Pen) 11 unit WITH MEALS SC Last administered on 12/12/18 17:27; Admin Dose 11 UNIT; Start 12/10/18 at 11:30 Insulin Glargine (Lantus) 35 units DAILY@0800 SC Last administered on 12/12/18 08:19; Admin Dose 35 UNITS; Start 12/11/18 at 08:00 Metformin HCl (Glucophage) 500 mg BID WITH MEALS PO Last administered on 12/12/18 17:26; Admin Dose 500 MG; Start 12/12/18 at 18:05 KLEVER HUNT Dec 12, 2018 19:15
[2018-12-12 20:12] VITALS: BP 127/76; PULSE 96; RESP 16
[2018-12-12] MEDS: QUETIAPINE 25 MG TAB PO SCH (20:39)
[2018-12-12] MEDS: ATORVASTATIN 80 MG TAB PO SCH (20:39)
[2018-12-13] MEDS: ACCU-CHEK XX SCH ×2 (01:31)
[2018-12-13 02:25] VITALS: BP 134/66; PULSE 103; RESP 18
[2018-12-13 05:30] VITALS: BP 110/58; PULSE 96
[2018-12-13] MEDS: ACETAMINOPHEN 325 MG TAB PO PRN ×2 (05:32→18:26)
[2018-12-13] MEDS: FUROSEMIDE 20 MG TAB PO SCH (05:32)
[2018-12-13 07:40] VITALS: BP 93/54; PULSE 95; RESP 16
[2018-12-13] MEDS: INSULIN ASPART [NOVOLOG] 3 ML PEN SC SCH ×5 (08:00→20:36)
[2018-12-13] MEDS: INSULIN GLARGINE [LANTus] (100 UNITS/ML) SYG SC SCH (08:23)
[2018-12-13] MEDS: HEPARIN 5,000 UNIT/1 ML VIAL SC SCH ×2 (08:24→20:35)
[2018-12-13] MEDS: ASPIRIN 81 MG TAB PO SCH (08:24)
[2018-12-13] MEDS: FAMOTIDINE 20 MG TAB PO SCH (08:24)
[2018-12-13] MEDS: LISINOPRIL 5 MG TAB PO SCH (08:24)
[2018-12-13] MEDS: CLOPIDOGREL 75 MG TAB PO SCH (08:24)
[2018-12-13] MEDS: ZYVOX 600 MG TAB PO SCH ×2 (08:24→20:34)
[2018-12-13] MEDS: metFORMIN 500 MG TAB PO SCH (08:24)
[2018-12-13] MEDS: ZINC SULFATE 220 MG CAP PO SCH (08:24)
[2018-12-13] MEDS: ASCORBIC ACID 500 MG TAB PO SCH (08:36)
[2018-12-13] MEDS: GABAPENTIN (50 MG/ML PO SYG) PO SCH ×2 (08:36→20:43)
--- NOTE | 2018-12-13 09:39 | PN ---
Date/Time of Note Date/Time of Note DATE: 12/13/18 TIME: 09:36 Assessment/Plan Lines/Catheters IV Catheter Type (from Nrsg): Saline Lock Vora in Place (from Nrsg): No Assessment/Plan Assessment/Plan Left groin lymphatic leak s/p iliofemoral and fem-PT bypass more than a month ago, leak started a week ago Continue VAC, change 2x / week Antibiotics per ID, currently on Zyvox Subjective 24 Hr Interval Summary No c/o. Ambulating well. No pain. Exam/Review of Systems Vital Signs Vitals Vital Signs Date Temp Pulse Resp B/P (MAP) Pulse Ox O2 O2 Flow FiO2 Time Delivery Rate 12/13/18 98.7 95 16 93/54 (67) 99 Room Air 07:40 Intake and Output 12/12/18 12/12/18 12/13/18 1515:00 23:00 07:00 IntakeIntake Total 920 ml 300 ml OutputOutput Total 50 ml BalanceBalance 870 ml 300 ml Exam Free Text/Dictation L groin incision healed excepty fro small opening superiorly, VAC in place with persistent lymphatic drainage - clear yellow fluid, no erythema around the incision L leg incisions all healed, 3+ PT and graft pulse, 5th toe amputation site is well healed Results Result Diagram: 12/09/18 0502 12/13/18 0603 KLEVER FOREMAN MD Dec 13, 2018 09:39
[2018-12-13] MEDS ORDERED: INSULIN ASPART [NOVOLOG] 3 ML PEN SC SCH (11:30)
--- NOTE | 2018-12-13 11:30 | CONS ---
Assessment/Plan Assessment/Plan Hospital Course (Demo Recall) No acute changes, looks comfortable no fevers Left groin wound culture grew coag negative staph and scant enterococcus, patient remains on doxycycline Bld cx + Staph Abx: Zyvox Physical examination: Well-developed elderly man who is in no distress head atraumatic normocephalic neck is supple chest rise symmetrical breath sounds CTA heart S1-S2, abdomen soft bowel sounds present extremities with left foot dressing intact Assessment: 1. Bacteremia, cw contaminant 2. UTI per ua==> neg cx 3. Status post cardiac arrest/non-ST elevation ID 4. Status post acute respiratory failure, possibly aspirated 5. Peripheral arterial disease status post left femoral to posterior tibial bypass 11/08/18 6. Diabetes 7. History of left foot second toe amputation Plan: Stable, left groin wound culture growing staph and enterococcus, continue Zyvox for 4 more days, podiatry rec-s noted Consultation Date/Type/Reason Admit Date/Time Nov 04, 2018 at 07:34 Initial Consult Date Type of Consult id Requesting Provider: KARL WOOD MD Date/Time of Note DATE: 12/13/18 TIME: 11:29 Exam/Review of Systems Exam Vitals Vital Signs Date Temp Pulse Resp B/P (MAP) Pulse Ox O2 O2 Flow FiO2 Time Delivery Rate 12/13/18 98.7 95 16 93/54 (67) 99 Room Air 07:40 Intake and Output 12/12/18 12/12/18 12/13/18 1515:00 23:00 07:00 IntakeIntake Total 920 ml 300 ml OutputOutput Total 50 ml BalanceBalance 870 ml 300 ml Results Result Diagram: 12/09/18 0502 12/13/18 0603 Results 24hrs Laboratory Tests Test 12/12/18 12:00 12/12/18 17:21 12/12/18 20:37 12/13/18 06:03 Bedside Glucose 127 130 111 Sodium Level 131 L Potassium Level 4.6 Chloride Level 97 Carbon Dioxide Level 23 Anion Gap 11 Blood Urea Nitrogen 34 H Creatinine 1.12 Est Glomerular Filtrat Rate mL/min Glucose Level 95 Calcium Level 8.9 Test 12/13/18 08:00 Bedside Glucose 96 Medications Medication Current Medications Ergocalciferol (Drisdol) 50,000 unit Sa PO Last administered on 12/07/18at 08:55; Admin Dose 50,000 UNIT; Start 11/09/18 at 09:00 Clonidine (Catapres) 0.1 mg Q6H PRN PO SBP>160 Last administered on 11/19/18at 03:04; Admin Dose 0.1 MG; Start 11/04/18 at 09:00 IV Flush (NS 3 ml) 3 ml PER PROTOCOL IV ; Start 11/04/18 at 09:00 Ondansetron HCl (Zofran Inj) 4 mg Q6H PRN IV NAUSEA/VOMITING; Start 11/04/18 at 09:00 Acetaminophen (Tylenol Tab) 650 mg Q6H PRN PO .PAIN 1-3 OR TEMP Last administered on 12/13/18 05:32; Admin Dose 650 MG; Start 11/04/18 at 09:00 Miscellaneous Information 1 ea NOTE XX ; Start 11/04/18 at 09:00 Glucose (Glutose) 15 gm Q15M PRN PO DECREASED GLUCOSE; Start 11/04/18 at 09:00 Glucose (Glutose) 22.5 gm Q15M PRN PO DECREASED GLUCOSE; Start 11/04/18 at 09: 00 Dextrose (D50w Syringe) 25 ml Q15M PRN IV DECREASED GLUCOSE; Start 11/04/18 at 09:00 Dextrose (D50w Syringe) 50 ml Q15M PRN IV DECREASED GLUCOSE; Start 11/04/18 at 09:00 Glucagon (Glucagen) 1 mg Q15M PRN IM DECREASED GLUCOSE; Start 11/04/18 at 09:00 Glucose (Glutose) 15 gm Q15M PRN BUCCAL DECREASED GLUCOSE; Start 11/04/18 at 09:00 Miscellaneous Information Patients own medicat... BID@,16 XX Last administered on 11/20/18at 16:16; Admin Dose 1 EA; Start 11/04/18 at 16:00 Sodium Hypochlorite (Dakins Diluted (40)) 1 applic BID TP Last administered on 12/12/18at 22:24; Admin Dose 1 APPLIC; Start 11/07/18 at 09:00 Hydralazine HCl (Apresoline) 10 mg Q4H PRN IV sbp >160 Last administered on 11/20/18at 14:44; Admin Dose 10 MG; Start 11/08/18 at 09:00 Atropine Sulfate (Atropine) 0.5 mg PRN PRN IV SYMPTOMATIC BRADYCARDIA; Start 11/11/18 at 23:00 Heparin Sodium (Porcine) (Heparin (5000 Units/1ml)) 5,000 unit BID SC Last administered on 12/13/18 08:24; Admin Dose 5,000 UNIT; Start 11/14/18 at 21:00 Bisacodyl (Dulcolax Supp) 10 mg DAILY PRN [place] CONSTIPATION Last administered on 11/14/18 16:43; Admin Dose 10 MG; Start 11/14/18 at 16:30 IV Flush (NS 10 ml) 10 ml PRN PRN IV FLUSH LINE; Start 11/15/18 at 15:30 Gabapentin (Neurontin Liquid) 300 mg BID PO Last administered on 12/13/18 08:36; Admin Dose 300 MG; Start 11/18/18 at 21:00 Ascorbic Acid (Vitamin C) 500 mg DAILY PO Last administered on 12/13/18 08:36; Admin Dose 500 MG; Start 11/20/18 at 09:00 Zinc Sulfate (Zinc Sulfate) 220 mg DAILY PO Last administered on 12/13/18 08:24; Admin Dose 220 MG; Start 11/20/18 at 09:00 Atorvastatin Calcium (Lipitor) 80 mg QHS PO Last administered on 12/12/18 20:39; Admin Dose 80 MG; Start 11/19/18 at 21:00 Lorazepam (Ativan) 0.5 mg Q6H PRN IV anxiety/agitation Last administered on 11/22/18 19:32; Admin Dose 0.5 MG; Start 11/22/18 at 11:00 Clopidogrel Bisulfate (plaVIX) 75 mg DAILY PO Last administered on 12/13/18 08:24; Admin Dose 75 MG; Start 11/23/18 at 09:00 Haloperidol (Haldol) 5 mg Q12H PRN IM agitation Last administered on 11/22/18 19:44; Admin Dose 5 MG; Start 11/22/18 at 14:30 Quetiapine Fumarate (Seroquel) 25 mg QHS PO Last administered on 12/12/18 20:39; Admin Dose 25 MG; Start 11/26/18 at 21:00 Polyethylene Glycol (Miralax) 17 gm DAILY PRN PO constipation Last administered on 12/06/18 06:10; Admin Dose 17 GM; Start 11/29/18 at 08:02 Aspirin (Aspirin) 81 mg DAILY PO Last administered on 12/13/18 08:24; Admin Dose 81 MG; Start 11/29/18 at 09:00 Famotidine (Pepcid) 20 mg DAILY PO Last administered on 12/13/18 08:24; Admin Dose 20 MG; Start 11/29/18 at 09:00 Senna/Docusate Sodium (Senokot-S) 1 tab BID PRN PO constipation Last administered on 12/09/18 08:07; Admin Dose 1 TAB; Start 11/29/18 at 08:30 Lisinopril (Zestril) 2.5 mg DAILY PO Last administered on 12/10/18 08:35; Admin Dose 2.5 MG; Start 12/03/18 at 09:00 Furosemide (Lasix) 20 mg DAILY@0600 PO Last administered on 12/13/18 05:32; Admin Dose 20 MG; Start 12/04/18 at 10:30 Linezolid (Zyvox) 600 mg BID PO Last administered on 12/13/18 08:24; Admin Dose 600 MG; Start 12/06/18 at 14:00 Insulin Aspart (Novolog Insulin Pen) NOVOLOG *MODERATE* ALGORITHM WITH MEALS BEDTIME SC Last administered on 12/12/18 08:19; Admin Dose 4 UNIT; Start 12/08/18 at 21:00 Insulin Glargine (Lantus) 35 units DAILY@0800 SC Last administered on 12/13/18 08:23; Admin Dose 35 UNITS; Start 12/11/18 at 08:00 Metformin HCl (Glucophage) 500 mg BID WITH MEALS PO Last administered on 12/13/18 08:24; Admin Dose 500 MG; Start 12/12/18 at 18:05 Insulin Aspart (Novolog Insulin Pen) 5 unit WITH MEALS SC ; Start 12/13/18 at 11:30 HERRERA MURILLO NP Dec 13, 2018 11:30
[2018-12-13] MEDS: DAKINS 0.0125%(1/40) 473 ML SOLUTION TP SCH ×2 (12:18→20:40)
--- NOTE | 2018-12-13 13:17 | CONS ---
Assessment/Plan Assessment/Plan Hospital Course (Demo Recall) IMPRESSION: 1. Preoperative evaluation prior to possible need for peripheral revascularization surgery.-neg trop x 3 and NL EF by echo with no sig valve abnl. Echo repeat 11/13 with NL EF 2. Peripheral arterial disease with nonhealing gangrenous changes in left toe ulceration. 3. Hypertension-now tolerating low dose ACEI 4. Dyslipidemia. 5. Diabetes mellitus. 6. s/p cardiopulmonary arrest 7. Bradycardic intermittent by tele-now resolved 8. Positive troponin after arrest-? secondary to or primary to arrest, likely secondary to arrest, type 2 demand infarct, as no signifcant uptrend and now downtrended to negative 9. Resp failure-s/p extubation 10. CVA-Acute by MRI 11.Groin wound 12. UTI-fungal Recc: -Now on med-surg -Continue asa/plavix/statin for cva -serial ecg's -Continue now linezolid and f/u bld cx's -local wound care -follow volume status closely now back on daily PO lasix -follow MS closely -Continue now zestril mononotherapy at reduced dose which patient is tolerating Consultation Date/Type/Reason Admit Date/Time Nov 04, 2018 at 07:34 Initial Consult Date 11/06/18 Type of Consult Cardiology Reason for Consultation HTN Requesting Provider: KARL WOOD MD Date/Time of Note DATE: 12/13/18 TIME: 13:15 Exam/Review of Systems Vital Signs Vitals Vital Signs Date Temp Pulse Resp B/P (MAP) Pulse Ox O2 O2 Flow FiO2 Time Delivery Rate 12/13/18 98.7 95 16 93/54 (67) 99 Room Air 07:40 Intake and Output 12/12/18 12/12/18 12/13/18 1515:00 23:00 07:00 IntakeIntake Total 920 ml 300 ml OutputOutput Total 50 ml BalanceBalance 870 ml 300 ml Exam Exam Review of Systems: CONSTITUTIONAL: No fevers, chills. PULMONARY: No sob CARDIOVASCULAR: No chest pain/palpitations GASTROINTESTINAL: No nausea/vomiting. GENITOURINARY: No hematuria/dysuria. MUSCULOSKELETAL: No myagias/arthalgias. PSYCHIATRIC: The patient denies depression. NEUROLOGIC: No weakness Constitutional: alert, oriented Psych: no complaints ENMT: mucosa pink and moist Neck: supple, jvd (9 cm water) Respiratory: diminished breath sounds Cardiovascular: regular rate and rhythm Gastrointestinal: soft, non-tender Musculoskeletal: muscle tone (normal) Extremities: edema (none) Neurological: other (No focal deficits) Labs Result Diagram: 12/09/18 0502 12/13/18 0603 Results 24hrs Laboratory Tests Test 12/12/18 17:21 12/12/18 20:37 12/13/18 06:03 12/13/18 08:00 Bedside Glucose 130 111 96 Sodium Level 131 L Potassium Level 4.6 Chloride Level 97 Carbon Dioxide Level 23 Anion Gap 11 Blood Urea Nitrogen 34 H Creatinine 1.12 Est Glomerular Filtrat Rate mL/min Glucose Level 95 Calcium Level 8.9 Test 12/13/18 12:17 Bedside Glucose 72 Medications Medications Current Medications Ergocalciferol (Drisdol) 50,000 unit Sa PO Last administered on 12/07/18at 08:55; Admin Dose 50,000 UNIT; Start 11/09/18 at 09:00 Clonidine (Catapres) 0.1 mg Q6H PRN PO SBP>160 Last administered on 11/19/18at 03:04; Admin Dose 0.1 MG; Start 11/04/18 at 09:00 IV Flush (NS 3 ml) 3 ml PER PROTOCOL IV ; Start 11/04/18 at 09:00 Ondansetron HCl (Zofran Inj) 4 mg Q6H PRN IV NAUSEA/VOMITING; Start 11/04/18 at 09:00 Acetaminophen (Tylenol Tab) 650 mg Q6H PRN PO .PAIN 1-3 OR TEMP Last administered on 12/13/18at 05:32; Admin Dose 650 MG; Start 11/04/18 at 09:00 Miscellaneous Information 1 ea NOTE XX ; Start 11/04/18 at 09:00 Glucose (Glutose) 15 gm Q15M PRN PO DECREASED GLUCOSE; Start 11/04/18 at 09:00 Glucose (Glutose) 22.5 gm Q15M PRN PO DECREASED GLUCOSE; Start 11/04/18 at 09:00 Dextrose (D50w Syringe) 25 ml Q15M PRN IV DECREASED GLUCOSE; Start 11/04/18 at 09:00 Dextrose (D50w Syringe) 50 ml Q15M PRN IV DECREASED GLUCOSE; Start 11/04/18 at 09:00 Glucagon (Glucagen) 1 mg Q15M PRN IM DECREASED GLUCOSE; Start 11/04/18 at 09:00 Glucose (Glutose) 15 gm Q15M PRN BUCCAL DECREASED GLUCOSE; Start 11/04/18 at 09:00 Miscellaneous Information Patients own medicat... BID@10,16 XX Last administered on 11/20/18 16:16; Admin Dose 1 EA; Start 11/04/18 at 16:00 Sodium Hypochlorite (Dakins Diluted ()) 1 applic BID TP Last administered on 12/13/18 12:18; Admin Dose 1 APPLIC; Start 11/07/18 at 09:00 Hydralazine HCl (Apresoline) 10 mg Q4H PRN IV sbp >160 Last administered on 11/20/18 14:44; Admin Dose 10 MG; Start 11/08/18 at 09:00 Atropine Sulfate (Atropine) 0.5 mg PRN PRN IV SYMPTOMATIC BRADYCARDIA; Start 11/11/18 at 23:00 Heparin Sodium (Porcine) (Heparin (5000 Units/1ml)) 5,000 unit BID SC Last administered on 12/13/18 08:24; Admin Dose 5,000 UNIT; Start 11/14/18 at 21:00 Bisacodyl (Dulcolax Supp) 10 mg DAILY PRN [place] CONSTIPATION Last administered on 11/14/18 16:43; Admin Dose 10 MG; Start 11/14/18 at 16:30 IV Flush (NS 10 ml) 10 ml PRN PRN IV FLUSH LINE; Start 11/15/18 at 15:30 Gabapentin (Neurontin Liquid) 300 mg BID PO Last administered on 12/13/18 08:36; Admin Dose 300 MG; Start 11/18/18 at 21:00 Ascorbic Acid (Vitamin C) 500 mg DAILY PO Last administered on 12/13/18 08:36; Admin Dose 500 MG; Start 11/20/18 at 09:00 Zinc Sulfate (Zinc Sulfate) 220 mg DAILY PO Last administered on 12/13/18 08:24; Admin Dose 220 MG; Start 11/20/18 at 09:00 Atorvastatin Calcium (Lipitor) 80 mg QHS PO Last administered on 12/12/18 20:39; Admin Dose 80 MG; Start 11/19/18 at 21:00 Lorazepam (Ativan) 0.5 mg Q6H PRN IV anxiety/agitation Last administered on 11/22/18 19:32; Admin Dose 0.5 MG; Start 11/22/18 at 11:00 Clopidogrel Bisulfate (plaVIX) 75 mg DAILY PO Last administered on 12/13/18 08:24; Admin Dose 75 MG; Start 11/23/18 at 09:00 Haloperidol (Haldol) 5 mg Q12H PRN IM agitation Last administered on 11/22/18 19:44; Admin Dose 5 MG; Start 11/22/18 at 14:30 Quetiapine Fumarate (Seroquel) 25 mg QHS PO Last administered on 12/12/18 20:39; Admin Dose 25 MG; Start 11/26/18 at 21:00 Polyethylene Glycol (Miralax) 17 gm DAILY PRN PO constipation Last administered on 12/06/18 06:10; Admin Dose 17 GM; Start 11/29/18 at 08:02 Aspirin (Aspirin) 81 mg DAILY PO Last administered on 12/13/18 08:24; Admin Dose 81 MG; Start 11/29/18 at 09:00 Famotidine (Pepcid) 20 mg DAILY PO Last administered on 12/13/18 08:24; Admin Dose 20 MG; Start 11/29/18 at 09:00 Senna/Docusate Sodium (Senokot-S) 1 tab BID PRN PO constipation Last administered on 12/09/18 08:07; Admin Dose 1 TAB; Start 11/29/18 at 08:30 Lisinopril (Zestril) 2.5 mg DAILY PO Last administered on 12/10/18 08:35; Admin Dose 2.5 MG; Start 12/03/18 at 09:00 Furosemide (Lasix) 20 mg DAILY@0600 PO Last administered on 12/13/18 05:32; Admin Dose 20 MG; Start 12/04/18 at 10:30 Linezolid (Zyvox) 600 mg BID PO Last administered on 12/13/18 08:24; Admin Dose 600 MG; Start 12/06/18 at 14:00 Insulin Aspart (Novolog Insulin Pen) NOVOLOG *MODERATE* ALGORITHM WITH MEALS BEDTIME SC Last administered on 7/25/19at 08:19; Admin Dose 4 UNIT; Start 12/08/18 at 21:00 Insulin Glargine (Lantus) 35 units DAILY@0800 SC Last administered on 12/13/18at 08:23; Admin Dose 35 UNITS; Start 12/11/18 at 08:00 Metformin HCl (Glucophage) 500 mg BID WITH MEALS PO Last administered on 12/13/18at 08:24; Admin Dose 500 MG; Start 12/12/18 at 18:05 Insulin Aspart (Novolog Insulin Pen) 5 unit WITH MEALS SC ; Start 12/13/18 at 11:30 KLEVER HUNT Dec 13, 2018 13:17
[2018-12-13 14:29] VITALS: BP 117/61; PULSE 98; RESP 16
--- NOTE | 2018-12-13 16:52 | PN ---
Date/Time of Note Date/Time of Note DATE: 12/13/18 TIME: 16:49 Assessment/Plan VTE Prophylaxis Risk score (from Ns)>0 risk: 6 SCD applied (from Ns): No SCD contraindicated: low risk/ambulating Pharmacological prophylaxis: NA/contraindicated Pharm contraindication: low risk/ambulating Lines/Catheters [facility] Saline Lock Urinary Cath still in place: No Assessment/Plan Assessment/Plan 1. Drainage from surgical site and groin area - Wound vac in place and appreciate wound care consultation for dressing changes - Awaiting full scope insurance in order to arrange HH for wound vac dressing changes twice a week 2. Groin wound infection, enterococcus and Coag neg staph - wound vac in place per Vasc recommendations - ID on board for antibiotic recommendations 3. 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 Completed course of antibiotics - Continue local wound care - Podiatry on board and appreciate consultation. no further procedures scheduled at this time 4. Left frontal CVA - Neurology on board and appreciate recommendations - continue on aspirin and Plavix and statin 5. left-sided internal carotid artery stenosis - 25% per CT angiogram, continue aspirin, statin, Plavix per vascular surgeon 6. Acute hypoxic respiratory failure-resolved - doing well on room air - Pulmonology consultation appreciated 7. Cardiac arrest s/p ROSC - Cardiology on board and appreciate recommendations - ECHO with preserved EF 8. Severe peripheral vascular disease - s/p left femoral endarterectomy, iliofemoral bypass and femoral to posterior tibial bypass done on November 08, 2018 - Vascular surgery consultation appreciated. Continue aspirin and Plavix 9. Diabetes Mellitus - A1c noted - will d/c insulin coverage with meals given low sugars since metformin initiated 10. Acute kidney injury- resolved - nephrology consultation appreciated 11. Essential HTN - Continue home medications at this time as tolerated 12. Peripheral neuropathy - cont. gabapentin 13. HLD - On statin 14. Chronic anemia - Stable H&H. Monitor - no need for transfusions at this time 15. Urinary retention, resolved - Urology on board and appreciate recommendations. - voiding without any issues 16. Disposition - Once approved for full scope medical, can arrange for HH for wound vac changes Result Diagram: 12/09/18 0502 12/13/18 0603 Results 24hrs Laboratory Tests Test 12/12/18 17:21 12/12/18 20:37 12/13/18 06:03 12/13/18 08:00 Bedside Glucose 130 111 96 Sodium Level 131 L Potassium Level 4.6 Chloride Level 97 Carbon Dioxide Level 23 Anion Gap 11 Blood Urea Nitrogen 34 H Creatinine 1.12 Est Glomerular Filtrat Rate mL/min Glucose Level 95 Calcium Level 8.9 Test 12/13/18 12:17 Bedside Glucose 72 Subjective 24 Hr Interval Summary Free Text/Dictation Patient doing well and no acute issues. No overnight events Exam/Review of Systems Exam Vitals Vital Signs Date Temp Pulse Resp B/P (MAP) Pulse Ox O2 O2 Flow FiO2 Time Delivery Rate 12/13/18 98.6 98 16 117/61 97 Room Air 14:29 (79) Intake and Output 12/12/18 12/12/18 12/13/18 1515:00 23:00 07:00 IntakeIntake Total 920 ml 300 ml OutputOutput Total 50 ml BalanceBalance 870 ml 300 ml Exam General: Patient is laying in bed responding to questions appropriately Neck: Supple Respiratory: diminished bilaterally. no wheezing Cardiovascular: regular rate and rhythm, no obvious murmurs Gastrointestinal: non-tender to palpation, bowel sounds heard. Neurological: Moves all extremities spontaneously Skin: No new skin lesions, wound vac L groin in place Results Results 24hrs Laboratory Tests Test 12/12/18 17:21 12/12/18 20:37 12/13/18 06:03 12/13/18 08:00 Bedside Glucose 130 111 96 Sodium Level 131 L Potassium Level 4.6 Chloride Level 97 Carbon Dioxide Level 23 Anion Gap 11 Blood Urea Nitrogen 34 H Creatinine 1.12 Est Glomerular Filtrat Rate mL/min Glucose Level 95 Calcium Level 8.9 Test 12/13/18 12:17 Bedside Glucose 72 Medications Medication Current Medications Ergocalciferol (Drisdol) 50,000 unit Sa PO Last administered on 12/07/18at 08:55; Admin Dose 50,000 UNIT; Start 11/09/18 at 09:00 Clonidine (Catapres) 0.1 mg Q6H PRN PO SBP>160 Last administered on 11/19/18at 03:04; Admin Dose 0.1 MG; Start 11/04/18 at 09:00 IV Flush (NS 3 ml) 3 ml PER PROTOCOL IV ; Start 11/04/18 at 09:00 Ondansetron HCl (Zofran Inj) 4 mg Q6H PRN IV NAUSEA/VOMITING; Start 11/04/18 at 09:00 Acetaminophen (Tylenol Tab) 650 mg Q6H PRN PO .PAIN 1-3 OR TEMP Last administe red on 12/13/18at 05:32; Admin Dose 650 MG; Start 11/04/18 at 09:00 Miscellaneous Information 1 ea NOTE XX ; Start 11/04/18 at 09:00 Glucose (Glutose) 15 gm Q15M PRN PO DECREASED GLUCOSE; Start 11/04/18 at 09:00 Glucose (Glutose) 22.5 gm Q15M PRN PO DECREASED GLUCOSE; Start 11/04/18 at 09:00 Dextrose (D50w Syringe) 25 ml Q15M PRN IV DECREASED GLUCOSE; Start 11/04/18 at 09:00 Dextrose (D50w Syringe) 50 ml Q15M PRN IV DECREASED GLUCOSE; Start 11/04/18 at 09:00 Glucagon (Glucagen) 1 mg Q15M PRN IM DECREASED GLUCOSE; Start 11/04/18 at 09:00 Glucose (Glutose) 15 gm Q15M PRN BUCCAL DECREASED GLUCOSE; Start 11/04/18 at 09:00 Miscellaneous Information Patients own medicat... BID@10,16 XX Last administered on 11/20/18at 16:16; Admin Dose 1 EA; Start 11/04/18 at 16:00 Sodium Hypochlorite (Dakins Diluted (1/40)) 1 applic BID TP Last administered on 12/13/18 12:18; Admin Dose 1 APPLIC; Start 11/07/18 at 09:00 Hydralazine HCl (Apresoline) 10 mg Q4H PRN IV sbp >160 Last administered on 11/20/18 14:44; Admin Dose 10 MG; Start 11/08/18 at 09:00 Atropine Sulfate (Atropine) 0.5 mg PRN PRN IV SYMPTOMATIC BRADYCARDIA; Start 11/11/18 at 23:00 Heparin Sodium (Porcine) (Heparin (5000 Units/1ml)) 5,000 unit BID SC Last administered on 12/13/18at 08:24; Admin Dose 5,000 UNIT; Start 11/14/18 at 21:00 Bisacodyl (Dulcolax Supp) 10 mg DAILY PRN [place] CONSTIPATION Last administered on 11/14/18 16:43; Admin Dose 10 MG; Start 11/14/18 at 16:30 IV Flush (NS 10 ml) 10 ml PRN PRN IV FLUSH LINE; Start 11/15/18 at 15:30 Gabapentin (Neurontin Liquid) 300 mg BID PO Last administered on 12/13/18 08:36; Admin Dose 300 MG; Start 11/18/18 at 21:00 Ascorbic Acid (Vitamin C) 500 mg DAILY PO Last administered on 12/13/18 08:36; Admin Dose 500 MG; Start 11/20/18 at 09:00 Zinc Sulfate (Zinc Sulfate) 220 mg DAILY PO Last administered on 12/13/18 08:24; Admin Dose 220 MG; Start 11/20/18 at 09:00 Atorvastatin Calcium (Lipitor) 80 mg QHS PO Last administered on 12/12/18 20:39; Admin Dose 80 MG; Start 11/19/18 at 21:00 Lorazepam (Ativan) 0.5 mg Q6H PRN IV anxiety/agitation Last administered on 11/22/18 19:32; Admin Dose 0.5 MG; Start 11/22/18 at 11:00 Clopidogrel Bisulfate (plaVIX) 75 mg DAILY PO Last administered on 12/13/18 08:24; Admin Dose 75 MG; Start 11/23/18 at 09:00 Haloperidol (Haldol) 5 mg Q12H PRN IM agitation Last administered on 11/22/18 19:44; Admin Dose 5 MG; Start 11/22/18 at 14:30 Quetiapine Fumarate (Seroquel) 25 mg QHS PO Last administered on 12/12/18 20:39; Admin Dose 25 MG; Start 11/26/18 at 21:00 Polyethylene Glycol (Miralax) 17 gm DAILY PRN PO constipation Last administered on 12/06/18 06:10; Admin Dose 17 GM; Start 11/29/18 at 08:02 Aspirin (Aspirin) 81 mg DAILY PO Last administered on 12/13/18 08:24; Admin Dose 81 MG; Start 11/29/18 at 09:00 Famotidine (Pepcid) 20 mg DAILY PO Last administered on 12/13/18 08:24; Admin Dose 20 MG; Start 11/29/18 at 09:00 Senna/Docusate Sodium (Senokot-S) 1 tab BID PRN PO constipation Last administered on 12/09/18 08:07; Admin Dose 1 TAB; Start 11/29/18 at 08:30 Lisinopril (Zestril) 2.5 mg DAILY PO Last administered on 12/10/18 08:35; Admin Dose 2.5 MG; Start 12/03/18 at 09:00 Furosemide (Lasix) 20 mg DAILY@0600 PO Last administered on 12/13/18 05:32; Admin Dose 20 MG; Start 12/04/18 at 10:30 Linezolid (Zyvox) 600 mg BID PO Last administered on 12/13/18 08:24; Admin Dose 600 MG; Start 12/06/18 at 14:00 Insulin Aspart (Novolog Insulin Pen) NOVOLOG *MODERATE* ALGORITHM WITH MEALS BEDTIME SC Last administered on 12/12/18 08:19; Admin Dose 4 UNIT; Start 12/08/18 at 21:00 Insulin Glargine (Lantus) 35 units DAILY@0800 SC Last administered on 12/13/18 08:23; Admin Dose 35 UNITS; Start 12/11/18 at 08:00 Metformin HCl (Glucophage) 500 mg BID WITH MEALS PO Last administered on 12/13/18 08:24; Admin Dose 500 MG; Start 12/12/18 at 18:05 AKRL WOOD MD Dec 13, 2018 16:52
[2018-12-13] MEDS: metFORMIN (XR) 500 MG TAB PO SCH (18:07)
[2018-12-13 20:00] VITALS: BP 135/69; PULSE 97; RESP 18
[2018-12-13] MEDS: QUETIAPINE 25 MG TAB PO SCH (20:34)
[2018-12-13] MEDS: ATORVASTATIN 80 MG TAB PO SCH (20:34)
[2018-12-14] MEDS: ACETAMINOPHEN 325 MG TAB PO PRN (00:29)
[2018-12-14 01:51] VITALS: BP 109/62; PULSE 98; RESP 18
[2018-12-14] MEDS: FUROSEMIDE 20 MG TAB PO SCH (05:52)
[2018-12-14 08:00] VITALS: BP 114/62; PULSE 94; RESP 17
[2018-12-14] MEDS: INSULIN ASPART [NOVOLOG] 3 ML PEN SC SCH ×4 (08:00→21:00)
[2018-12-14] MEDS: ZINC SULFATE 220 MG CAP PO SCH (08:55)
[2018-12-14] MEDS: ERGOCALCIFEROL 50,000 UNIT CAP PO SCH (08:55)
[2018-12-14] MEDS: metFORMIN (XR) 500 MG TAB PO SCH ×2 (08:55→17:31)
[2018-12-14] MEDS: FAMOTIDINE 20 MG TAB PO SCH (08:55)
[2018-12-14] MEDS: ZYVOX 600 MG TAB PO SCH ×2 (08:57→22:01)
[2018-12-14] MEDS: ASPIRIN 81 MG TAB PO SCH (08:57)
[2018-12-14] MEDS: LISINOPRIL 5 MG TAB PO SCH (08:57)
[2018-12-14] MEDS: CLOPIDOGREL 75 MG TAB PO SCH (08:57)
[2018-12-14] MEDS: ASCORBIC ACID 500 MG TAB PO SCH (08:57)
[2018-12-14] MEDS: HEPARIN 5,000 UNIT/1 ML VIAL SC SCH ×2 (08:58→22:08)
[2018-12-14] MEDS: INSULIN GLARGINE [LANTus] (100 UNITS/ML) SYG SC SCH (08:59)
[2018-12-14] MEDS: DAKINS 0.0125%(1/40) 473 ML SOLUTION TP SCH ×2 (09:09→22:02)
[2018-12-14] MEDS: GABAPENTIN (50 MG/ML PO SYG) PO SCH ×2 (09:09→22:01)
--- NOTE | 2018-12-14 12:46 | PN ---
Date/Time of Note Date/Time of Note DATE: 12/14/18 TIME: 12:40 Assessment/Plan VTE Prophylaxis Risk score (from Nsg)>0 risk: 5 SCD applied (from Ns): No SCD contraindicated: low risk/ambulating Pharmacological prophylaxis: NA/contraindicated Pharm contraindication: low risk/ambulating Lines/Catheters [facility] Saline Lock Urinary Cath still in place: No Assessment/Plan Assessment/Plan 1. Drainage from surgical site and groin area- stable - continue with wound vac with dressing changes twice a week - CM on board and arranging HH for wound vac changes once approved for [employer] 2. Groin wound infection, enterococcus and Coag neg staph - wound vac in place per Vasc recommendations - ID on board for antibiotic recommendations and will continue current treatment. Once insurance approved, will need to see if patient able to afford Zyvox 3. 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 - Continue local wound care - Podiatry on board and appreciate consultation. no further procedures scheduled at this time 4. Left frontal CVA - Neurology on board and appreciate recommendations - continue on aspirin and Plavix and statin 5. left-sided internal carotid artery stenosis - 25% per CT angiogram, continue aspirin, statin, Plavix per vascular surgeon 6. Acute hypoxic respiratory failure-resolved - doing well on room air - Pulmonology consultation appreciated 7. Cardiac arrest s/p ROSC - Cardiology on board and appreciate recommendations - ECHO with preserved EF 8. Severe peripheral vascular disease - s/p left femoral endarterectomy, iliofemoral bypass and femoral to posterior tibial bypass done on November 08, 2018 - Vascular surgery consultation appreciated. Continue aspirin and Plavix 9. Diabetes Mellitus - A1c noted - doing well on metformin XR. 10. Acute kidney injury- resolved - nephrology consultation appreciated 11. Essential HTN - Continue home medications at this time as tolerated 12. Peripheral neuropathy - cont. gabapentin 13. HLD - On statin 14. Chronic anemia - Stable H&H. Monitor - no need for transfusions at this time 15. Urinary retention, resolved - Urology on board and appreciate recommendations. - voiding without any issues 16. Disposition - Awaiting approval for full scope medical insurance. CM on board to assist with arranging HH for wound vac changes Result Diagram: 12/13/18 0603 Results 24hrs Laboratory Tests Test 12/13/18 17:22 12/13/18 20:17 12/14/18 01:01 12/14/18 08:24 Bedside Glucose 134 271 H 163 107 Test 12/14/18 11:48 Bedside Glucose 158 Subjective 24 Hr Interval Summary Free Text/Dictation Patient doing well and denies any acute issues. States no longer experiencing diarrhea with change in metformin to XR form. Exam/Review of Systems Exam Vitals Vital Signs Date Temp Pulse Resp B/P (MAP) Pulse Ox O2 O2 Flow FiO2 Time Delivery Rate 12/14/18 97.9 94 17 114/62 99 Room Air 08:00 (79) Intake and Output 12/13/18 12/13/18 12/14/18 1515:00 23:00 07:00 IntakeIntake Total 760 ml 420 ml 520 ml OutputOutput Total 150 ml 10 ml BalanceBalance 610 ml 420 ml 510 ml Exam General: Patient is laying in bed responding to questions appropriately Neck: Supple Respiratory: diminished bilaterally. no wheezing Cardiovascular: regular rate and rhythm, no obvious murmurs Gastrointestinal: non-tender to palpation, bowel sounds heard. Neurological: Moves all extremities spontaneously Skin: No new skin lesions, wound vac L groin in place Results Results 24hrs Laboratory Tests Test 12/13/18 17:22 12/13/18 20:17 12/14/18 01:01 12/14/18 08:24 Bedside Glucose 134 271 H 163 107 Test 12/14/18 11:48 Bedside Glucose 158 Medications Medication Current Medications Ergocalciferol (Drisdol) 50,000 unit Sa PO Last administered on 12/14/18at 08:55; Admin Dose 50,000 UNIT; Start 11/09/18 at 09:00 Clonidine (Catapres) 0.1 mg Q6H PRN PO SBP>160 Last administered on 11/19/18at 03:04; Admin Dose 0.1 MG; Start 11/04/18 at 09:00 IV Flush (NS 3 ml) 3 ml PER PROTOCOL IV ; Start 11/04/18 at 09:00 Ondansetron HCl (Zofran Inj) 4 mg Q6H PRN IV NAUSEA/VOMITING; Start 11/04/18 at 09:00 Acetaminophen (Tylenol Tab) 650 mg Q6H PRN PO .PAIN 1-3 OR TEMP Last administered on 12/14/18 00:29; Admin Dose 650 MG; Start 11/04/18 at 09:00 Miscellaneous Information 1 ea NOTE XX ; Start 11/04/18 at 09:00 Glucose (Glutose) 15 gm Q15M PRN PO DECREASED GLUCOSE; Start 11/04/18 at 09:00 Glucose (Glutose) 22.5 gm Q15M PRN PO DECREASED GLUCOSE; Start 11/04/18 at 09:00 Dextrose (D50w Syringe) 25 ml Q15M PRN IV DECREASED GLUCOSE; Start 11/04/18 at 09:00 Dextrose (D50w Syringe) 50 ml Q15M PRN IV DECREASED GLUCOSE; Start 11/04/18 at 09:00 Glucagon (Glucagen) 1 mg Q15M PRN IM DECREASED GLUCOSE; Start 11/04/18 at 09:00 Glucose (Glutose) 15 gm Q15M PRN BUCCAL DECREASED GLUCOSE; Start 11/04/18 at 09:00 Miscellaneous Information Patients own medicat... BID@ XX Last admini stered on 11/20/18at 16:16; Admin Dose 1 EA; Start 11/04/18 at 16:00 Sodium Hypochlorite (Dakins Diluted (40)) 1 applic BID TP Last administered on 12/14/18 09:09; Admin Dose 1 APPLIC; Start 11/07/18 at 09:00 Hydralazine HCl (Apresoline) 10 mg Q4H PRN IV sbp >160 Last administered on 11/20/18 14:44; Admin Dose 10 MG; Start 11/08/18 at 09:00 Atropine Sulfate (Atropine) 0.5 mg PRN PRN IV SYMPTOMATIC BRADYCARDIA; Start 11/11/18 at 23:00 Heparin Sodium (Porcine) (Heparin (5000 Units/1ml)) 5,000 unit BID SC Last administered on 12/14/18 08:58; Admin Dose 5,000 UNIT; Start 11/14/18 at 21:00 Bisacodyl (Dulcolax Supp) 10 mg DAILY PRN IN CONSTIPATION Last administered on 11/14/18 16:43; Admin Dose 10 MG; Start 11/14/18 at 16:30 IV Flush (NS 10 ml) 10 ml PRN PRN IV FLUSH LINE; Start 11/15/18 at 15:30 Gabapentin (Neurontin Liquid) 300 mg BID PO Last administered on 12/14/18 09:09; Admin Dose 300 MG; Start 11/18/18 at 21:00 Ascorbic Acid (Vitamin C) 500 mg DAILY PO Last administered on 12/14/18 08:57; Admin Dose 500 MG; Start 11/20/18 at 09:00 Zinc Sulfate (Zinc Sulfate) 220 mg DAILY PO Last administered on 12/14/18 08:55; Admin Dose 220 MG; Start 11/20/18 at 09:00 Atorvastatin Calcium (Lipitor) 80 mg QHS PO Last administered on 12/13/18 20:34; Admin Dose 80 MG; Start 11/19/18 at 21:00 Lorazepam (Ativan) 0.5 mg Q6H PRN IV anxiety/agitation Last administered on 11/22/18 19:32; Admin Dose 0.5 MG; Start 11/22/18 at 11:00 Clopidogrel Bisulfate (plaVIX) 75 mg DAILY PO Last administered on 12/14/18 08:57; Admin Dose 75 MG; Start 11/23/18 at 09:00 Haloperidol (Haldol) 5 mg Q12H PRN IM agitation Last administered on 11/22/18 19:44; Admin Dose 5 MG; Start 11/22/18 at 14:30 Quetiapine Fumarate (Seroquel) 25 mg QHS PO Last administered on 12/13/18 20:34; Admin Dose 25 MG; Start 11/26/18 at 21:00 Polyethylene Glycol (Miralax) 17 gm DAILY PRN PO constipation Last administered on 12/06/18 06:10; Admin Dose 17 GM; Start 11/29/18 at 08:02 Aspirin (Aspirin) 81 mg DAILY PO Last administered on 12/14/18 08:57; Admin Dose 81 MG; Start 11/29/18 at 09:00 Famotidine (Pepcid) 20 mg DAILY PO Last administered on 12/14/18 08:55; Admin Dose 20 MG; Start 11/29/18 at 09:00 Senna/Docusate Sodium (Senokot-S) 1 tab BID PRN PO constipation Last administered on 12/09/18 08:07; Admin Dose 1 TAB; Start 11/29/18 at 08:30 Lisinopril (Zestril) 2.5 mg DAILY PO Last administered on 12/14/18 08:57; Admin Dose 2.5 MG; Start 12/03/18 at 09:00 Furosemide (Lasix) 20 mg DAILY@0600 PO Last administered on 12/14/18 05:52; Admin Dose 20 MG; Start 12/04/18 at 10:30 Linezolid (Zyvox) 600 mg BID PO Last administered on 12/14/18 08:57; Admin Dose 600 MG; Start 12/06/18 at 14:00 Insulin Aspart (Novolog Insulin Pen) NOVOLOG *MODERATE* ALGORITHM WITH MEALS BEDTIME SC Last administered on 12/13/18 20:36; Admin Dose 3 UNIT; Start 12/08/18 at 21:00 Insulin Glargine (Lantus) 35 units DAILY@0800 SC Last administered on 12/14/18 08:59; Admin Dose 35 UNITS; Start 12/11/18 at 08:00 Metformin HCl (Glucophage Xr) 500 mg WITH BREAKFAST DINNE PO Last administered on 12/14/18 08:55; Admin Dose 500 MG; Start 12/13/18 at 18:05 Simethicone (Mylicon) 80 mg Q6H PRN PO DISTENSION/GAS/BLOATING; Start 12/13/18 at 17:30 KARL WOOD MD Dec 14, 2018 12:46
--- NOTE | 2018-12-14 13:37 | CONS ---
Consultation Date/Type/Reason Admit Date/Time Nov 04, 2018 at 07:34 Initial Consult Date SUBJECTIVE: Pt is awake, afbrile, looks comfortable. VS: stable T: 97.9 LABS: Reviewed. MICROBIOLOGY: Left groin wound culture grew coag negative staph and scant enterococcus WOUND CULTURE Preliminary Organism 1 GRAM NEGATIVE FRANCINE QUANTITY 1+ Bld cx + Staph Abx: Zyvox Physical examination: GEN: Well-developed elderly man, who is in no distress HENT: head atraumatic normocephalic; neck is supple PULM: chest rise symmetrical breath sounds CTA Heart: S1-S2 Abdomen: soft, bowel sounds present Extremities with left foot dressing intact Assessment: 1. Bacteremia, cw contaminant 2. UTI per ua==> neg cx 3. Status post cardiac arrest/non-ST elevation ME 4. Status post acute respiratory failure, possibly aspirated 5. Peripheral arterial disease status post left femoral to posterior tibial bypass 11/08/18 6. Diabetes 7. History of left foot second toe amputation Plan: Pt is stable. Left groin wound culture growing staph and enterococcus. final Cx pending. Continue Zyvox for 4 more days. Podiatry following. Pending D/C with . Requesting Provider: KARL WOOD MD Date/Time of Note DATE: 12/14/18 TIME: 13:32 Exam/Review of Systems Exam Vitals Vital Signs Date Temp Pulse Resp B/P (MAP) Pulse Ox O2 O2 Flow FiO2 Time Delivery Rate 12/14/18 97.9 94 17 114/62 99 Room Air 08:00 (79) Intake and Output 12/13/18 12/13/18 12/14/18 1515:00 23:00 07:00 IntakeIntake Total 760 ml 420 ml 520 ml OutputOutput Total 150 ml 10 ml BalanceBalance 610 ml 420 ml 510 ml Results Result Diagram: 12/13/18 0603 Results 24hrs Laboratory Tests Test 12/13/18 17:22 12/13/18 20:17 12/14/18 01:01 12/14/18 08:24 Bedside Glucose 134 271 H 163 107 Test 12/14/18 11:48 Bedside Glucose 158 Medications Medication Current Medications Ergocalciferol (Drisdol) 50,000 unit Sa PO Last administered on 12/14/18at 08:55; Admin Dose 50,000 UNIT; Start 11/09/18 at 09:00 Clonidine (Catapres) 0.1 mg Q6H PRN PO SBP>160 Last administered on 11/19/18at 03:04; Admin Dose 0.1 MG; Start 11/04/18 at 09:00 IV Flush (NS 3 ml) 3 ml PER PROTOCOL IV ; Start 11/04/18 at 09:00 Ondansetron HCl (Zofran Inj) 4 mg Q6H PRN IV NAUSEA/VOMITING; Start 11/04/18 at 09:00 Acetaminophen (Tylenol Tab) 650 mg Q6H PRN PO .PAIN 1-3 OR TEMP Last administered on 12/14/18at 00:29; Admin Dose 650 MG; Start 11/04/18 at 09:00 Miscellaneous Information 1 ea NOTE XX ; Start 11/04/18 at 09:00 Glucose (Glutose) 15 gm Q15M PRN PO DECREASED GLUCOSE; Start 11/04/18 at 09:00 Glucose (Glutose) 22.5 gm Q15M PRN PO DECREASED GLUCOSE; Start 11/04/18 at 09:00 Dextrose (D50w Syringe) 25 ml Q15M PRN IV DECREASED GLUCOSE; Start 11/04/18 at 09:00 Dextrose (D50w Syringe) 50 ml Q15M PRN IV DECREASED GLUCOSE; Start 11/04/18 at 09:00 Glucagon (Glucagen) 1 mg Q15M PRN IM DECREASED GLUCOSE; Start 11/04/18 at 09:00 Glucose (Glutose) 15 gm Q15M PRN BUCCAL DECREASED GLUCOSE; Start 11/04/18 at 09:00 Miscellaneous Information Patients own medicat... BID@10,16 XX Last admin istered on 11/20/18at 16:16; Admin Dose 1 EA; Start 11/04/18 at 16:00 Sodium Hypochlorite (Dakins Diluted (40)) 1 applic BID TP Last administered on 12/14/18 09:09; Admin Dose 1 APPLIC; Start 11/07/18 at 09:00 Hydralazine HCl (Apresoline) 10 mg Q4H PRN IV sbp >160 Last administered on 11/20/18 14:44; Admin Dose 10 MG; Start 11/08/18 at 09:00 Atropine Sulfate (Atropine) 0.5 mg PRN PRN IV SYMPTOMATIC BRADYCARDIA; Start 11/11/18 at 23:00 Heparin Sodium (Porcine) (Heparin (5000 Units/1ml)) 5,000 unit BID SC Last administered on 12/14/18 08:58; Admin Dose 5,000 UNIT; Start 11/14/18 at 21:00 Bisacodyl (Dulcolax Supp) 10 mg DAILY PRN [place] CONSTIPATION Last administered on 11/14/18 16:43; Admin Dose 10 MG; Start 11/14/18 at 16:30 IV Flush (NS 10 ml) 10 ml PRN PRN IV FLUSH LINE; Start 11/15/18 at 15:30 Gabapentin (Neurontin Liquid) 300 mg BID PO Last administered on 12/14/18 09:09; Admin Dose 300 MG; Start 11/18/18 at 21:00 Ascorbic Acid (Vitamin C) 500 mg DAILY PO Last administered on 12/14/18 08:57; Admin Dose 500 MG; Start 11/20/18 at 09:00 Zinc Sulfate (Zinc Sulfate) 220 mg DAILY PO Last administered on 12/14/18 08:55; Admin Dose 220 MG; Start 11/20/18 at 09:00 Atorvastatin Calcium (Lipitor) 80 mg QHS PO Last administered on 12/13/18 20:34; Admin Dose 80 MG; Start 11/19/18 at 21:00 Lorazepam (Ativan) 0.5 mg Q6H PRN IV anxiety/agitation Last administered on 11/22/18 19:32; Admin Dose 0.5 MG; Start 11/22/18 at 11:00 Clopidogrel Bisulfate (plaVIX) 75 mg DAILY PO Last administered on 12/14/18 08:57; Admin Dose 75 MG; Start 11/23/18 at 09:00 Haloperidol (Haldol) 5 mg Q12H PRN IM agitation Last administered on 11/22/18 19:44; Admin Dose 5 MG; Start 11/22/18 at 14:30 Quetiapine Fumarate (Seroquel) 25 mg QHS PO Last administered on 12/13/18 20:34; Admin Dose 25 MG; Start 11/26/18 at 21:00 Polyethylene Glycol (Miralax) 17 gm DAILY PRN PO constipation Last administered on 12/06/18 06:10; Admin Dose 17 GM; Start 11/29/18 at 08:02 Aspirin (Aspirin) 81 mg DAILY PO Last administered on 12/14/18 08:57; Admin Dose 81 MG; Start 11/29/18 at 09:00 Famotidine (Pepcid) 20 mg DAILY PO Last administered on 12/14/18 08:55; Admin Dose 20 MG; Start 11/29/18 at 09:00 Senna/Docusate Sodium (Senokot-S) 1 tab BID PRN PO constipation Last administered on 12/09/18 08:07; Admin Dose 1 TAB; Start 11/29/18 at 08:30 Lisinopril (Zestril) 2.5 mg DAILY PO Last administered on 12/14/18 08:57; Admin Dose 2.5 MG; Start 12/03/18 at 09:00 Furosemide (Lasix) 20 mg DAILY@0600 PO Last administered on 12/14/18 05:52; Admin Dose 20 MG; Start 12/04/18 at 10:30 Linezolid (Zyvox) 600 mg BID PO Last administered on 12/14/18 08:57; Admin Dose 600 MG; Start 12/06/18 at 14:00 Insulin Aspart (Novolog Insulin Pen) NOVOLOG *MODERATE* ALGORITHM WITH MEALS BEDTIME SC Last administered on 12/13/18 20:36; Admin Dose 3 UNIT; Start 12/08/18 at 21:00 Insulin Glargine (Lantus) 35 units DAILY@0800 SC Last administered on 12/14/18 08:59; Admin Dose 35 UNITS; Start 12/11/18 at 08:00 Metformin HCl (Glucophage Xr) 500 mg WITH BREAKFAST DINNE PO Last administered on 12/14/18 08:55; Admin Dose 500 MG; Start 12/13/18 at 18:05 Simethicone (Mylicon) 80 mg Q6H PRN PO DISTENSION/GAS/BLOATING; Start 12/13/18 at 17:30 THAIS COLLINS Dec 14, 2018 13:36
[2018-12-14 14:00] VITALS: BP 111/64; PULSE 97; RESP 17
--- NOTE | 2018-12-14 16:36 | CONS ---
Assessment/Plan Assessment/Plan Hospital Course (Demo Recall) IMPRESSION: 1. Preoperative evaluation prior to possible need for peripheral revascularization surgery.-neg trop x 3 and NL EF by echo with no sig valve abnl. Echo repeat 11/13 with NL EF 2. Peripheral arterial disease with nonhealing gangrenous changes in left toe ulceration. 3. Hypertension-now tolerating low dose ACEI 4. Dyslipidemia. 5. Diabetes mellitus. 6. s/p cardiopulmonary arrest 7. Bradycardic intermittent by tele-now resolved 8. Positive troponin after arrest-? secondary to or primary to arrest, likely secondary to arrest, type 2 demand infarct, as no signifcant uptrend and now downtrended to negative 9. Resp failure-s/p extubation 10. CVA-Acute by MRI 11.Groin wound 12. UTI-fungal Recc: -Now on med-surg -Continue asa/plavix/statin for cva -serial ecg's -Continue now linezolid and f/u bld cx's -local wound care -follow volume status closely now back on daily PO lasix -follow MS closely -Continue now zestril mononotherapy at reduced dose which patient is tolerating Consultation Date/Type/Reason Admit Date/Time Nov 04, 2018 at 07:34 Initial Consult Date 11/06/18 Type of Consult Cardiology Reason for Consultation HTN Requesting Provider: KARL WOOD MD Date/Time of Note DATE: 12/14/18 TIME: 16:34 Exam/Review of Systems Vital Signs Vitals Vital Signs Date Temp Pulse Resp B/P (MAP) Pulse Ox O2 O2 Flow FiO2 Time Delivery Rate 12/14/18 97.9 97 17 111/64 99 Room Air 14:00 (80) Intake and Output 12/13/18 12/13/18 12/14/18 1515:00 23:00 07:00 IntakeIntake Total 760 ml 420 ml 520 ml OutputOutput Total 150 ml 10 ml BalanceBalance 610 ml 420 ml 510 ml Exam Exam Review of Systems: CONSTITUTIONAL: No fevers, chills. PULMONARY: No sob CARDIOVASCULAR: No chest pain/palpitations GASTROINTESTINAL: No nausea/vomiting. GENITOURINARY: No hematuria/dysuria. MUSCULOSKELETAL: No myagias/arthalgias. PSYCHIATRIC: The patient denies depression. NEUROLOGIC: No weakness Constitutional: alert Psych: no complaints Head: normocephalic ENMT: mucosa pink and moist Neck: supple, jvd (9 cm water) Respiratory: clear to auscultation Cardiovascular: regular rate and rhythm Gastrointestinal: soft, non-tender Musculoskeletal: muscle tone (normal) Extremities: pitting pedal edema (trace LE edema/foot covered by dressing) Neurological: other (No focal deficits) Labs Result Diagram: 12/13/18 0603 Results 24hrs Laboratory Tests Test 12/13/18 17:22 12/13/18 20:17 12/14/18 01:01 12/14/18 08:24 Bedside Glucose 134 271 H 163 107 Test 12/14/18 11:48 Bedside Glucose 158 Medications Medications Current Medications Ergocalciferol (Drisdol) 50,000 unit Sa PO Last administered on 12/14/18at 08:55; Admin Dose 50,000 UNIT; Start 11/09/18 at 09:00 Clonidine (Catapres) 0.1 mg Q6H PRN PO SBP>160 Last administered on 11/19/18at 03:04; Admin Dose 0.1 MG; Start 11/04/18 at 09:00 IV Flush (NS 3 ml) 3 ml PER PROTOCOL IV ; Start 11/04/18 at 09:00 Ondansetron HCl (Zofran Inj) 4 mg Q6H PRN IV NAUSEA/VOMITING; Start 11/04/18 at 09:00 Acetaminophen (Tylenol Tab) 650 mg Q6H PRN PO .PAIN 1-3 OR TEMP Last admin istered on 12/14/18at 00:29; Admin Dose 650 MG; Start 11/04/18 at 09:00 Miscellaneous Information 1 ea NOTE XX ; Start 11/04/18 at 09:00 Glucose (Glutose) 15 gm Q15M PRN PO DECREASED GLUCOSE; Start 11/04/18 at 09:00 Glucose (Glutose) 22.5 gm Q15M PRN PO DECREASED GLUCOSE; Start 11/04/18 at 09:00 Dextrose (D50w Syringe) 25 ml Q15M PRN IV DECREASED GLUCOSE; Start 11/04/18 at 09:00 Dextrose (D50w Syringe) 50 ml Q15M PRN IV DECREASED GLUCOSE; Start 11/04/18 at 09:00 Glucagon (Glucagen) 1 mg Q15M PRN IM DECREASED GLUCOSE; Start 11/04/18 at 09:00 Glucose (Glutose) 15 gm Q15M PRN BUCCAL DECREASED GLUCOSE; Start 11/04/18 at 09:00 Miscellaneous Information Patients own medicat... BID@10,16 XX Last administered on 11/20/18 16:16; Admin Dose 1 EA; Start 11/04/18 at 16:00 Sodium Hypochlorite (Dakins Diluted ()) 1 applic BID TP Last administered on 12/14/18 09:09; Admin Dose 1 APPLIC; Start 11/07/18 at 09:00 Hydralazine HCl (Apresoline) 10 mg Q4H PRN IV sbp >160 Last administered on 14:44; Admin Dose 10 MG; Start 11/08/18 at 09:00 Atropine Sulfate (Atropine) 0.5 mg PRN PRN IV SYMPTOMATIC BRADYCARDIA; Start 11/11/18 at 23:00 Heparin Sodium (Porcine) (Heparin (5000 Units/1ml)) 5,000 unit BID SC Last administered on 12/14/18 08:58; Admin Dose 5,000 UNIT; Start 11/14/18 at 21:00 Bisacodyl (Dulcolax Supp) 10 mg DAILY PRN [place] CONSTIPATION Last administered on 11/14/18 16:43; Admin Dose 10 MG; Start 11/14/18 at 16:30 IV Flush (NS 10 ml) 10 ml PRN PRN IV FLUSH LINE; Start 11/15/18 at 15:30 Gabapentin (Neurontin Liquid) 300 mg BID PO Last administered on 12/14/18 09 :09; Admin Dose 300 MG; Start 11/18/18 at 21:00 Ascorbic Acid (Vitamin C) 500 mg DAILY PO Last administered on 12/14/18 08:57; Admin Dose 500 MG; Start 11/20/18 at 09:00 Zinc Sulfate (Zinc Sulfate) 220 mg DAILY PO Last administered on 12/14/18 08:55; Admin Dose 220 MG; Start 11/20/18 at 09:00 Atorvastatin Calcium (Lipitor) 80 mg QHS PO Last administered on 12/13/18 20:34; Admin Dose 80 MG; Start 11/19/18 at 21:00 Lorazepam (Ativan) 0.5 mg Q6H PRN IV anxiety/agitation Last administered on 11/22/18 19:32; Admin Dose 0.5 MG; Start 11/22/18 at 11:00 Clopidogrel Bisulfate (plaVIX) 75 mg DAILY PO Last administered on 12/14/18 08:57; Admin Dose 75 MG; Start 11/23/18 at 09:00 Haloperidol (Haldol) 5 mg Q12H PRN IM agitation Last administered on 11/22/18 19:44; Admin Dose 5 MG; Start 11/22/18 at 14:30 Quetiapine Fumarate (Seroquel) 25 mg QHS PO Last administered on 12/13/18 20:34; Admin Dose 25 MG; Start 11/26/18 at 21:00 Polyethylene Glycol (Miralax) 17 gm DAILY PRN PO constipation Last administered on 12/06/18 06:10; Admin Dose 17 GM; Start 11/29/18 at 08:02 Aspirin (Aspirin) 81 mg DAILY PO Last administered on 12/14/18 08:57; Admin Dose 81 MG; Start 11/29/18 at 09:00 Famotidine (Pepcid) 20 mg DAILY PO Last administered on 12/14/18 08:55; Admin Dose 20 MG; Start 11/29/18 at 09:00 Senna/Docusate Sodium (Senokot-S) 1 tab BID PRN PO constipation Last administered on 12/09/18 08:07; Admin Dose 1 TAB; Start 11/29/18 at 08:30 Lisinopril (Zestril) 2.5 mg DAILY PO Last administered on 12/14/18 08:57; Admin Dose 2.5 MG; Start 12/03/18 at 09:00 Furosemide (Lasix) 20 mg DAILY@0600 PO Last administered on 12/14/18 05:52; Admin Dose 20 MG; Start 12/04/18 at 10:30 Linezolid (Zyvox) 600 mg BID PO Last administered on 12/14/18 08:57; Admin Dose 600 MG; Start 12/06/18 at 14:00 Insulin Aspart (Novolog Insulin Pen) NOVOLOG *MODERATE* ALGORITHM WITH MEALS BEDTIME SC Last administered on 12/14/18 12:30; Admin Dose 2 UNIT; Start 12/08/18 at 21:00 Insulin Glargine (Lantus) 35 units DAILY@0800 SC Last administered on 12/14/18at 08:59; Admin Dose 35 UNITS; Start 12/11/18 at 08:00 Metformin HCl (Glucophage Xr) 500 mg WITH BREAKFAST DINNE PO Last administered on 12/14/18at 08:55; Admin Dose 500 MG; Start 12/13/18 at 18:05 Simethicone (Mylicon) 80 mg Q6H PRN PO DISTENSION/GAS/BLOATING; Start 12/13/18 at 17:30 KLEVER HUNT Dec 14, 2018 16:36
[2018-12-14] MEDS: traMADol 50 MG TAB PO PRN (17:08)
[2018-12-14 20:00] VITALS: BP 115/70; PULSE 115; RESP 18
[2018-12-14] MEDS: ATORVASTATIN 80 MG TAB PO SCH (22:01)
[2018-12-14] MEDS: QUETIAPINE 25 MG TAB PO SCH (22:01)
[2018-12-15 02:00] VITALS: BP 116/57; PULSE 96; RESP 18
[2018-12-15] MEDS: FUROSEMIDE 20 MG TAB PO SCH (06:34)
[2018-12-15 08:00] VITALS: BP 114/60; PULSE 100; RESP 16
[2018-12-15] MEDS: INSULIN ASPART [NOVOLOG] 3 ML PEN SC SCH ×4 (08:00→21:00)
[2018-12-15] MEDS: ASPIRIN 81 MG TAB PO SCH (08:20)
[2018-12-15] MEDS: CLOPIDOGREL 75 MG TAB PO SCH (08:20)
[2018-12-15] MEDS: ASCORBIC ACID 500 MG TAB PO SCH (08:20)
[2018-12-15] MEDS: FAMOTIDINE 20 MG TAB PO SCH (08:20)
[2018-12-15] MEDS: ZYVOX 600 MG TAB PO SCH (08:21)
[2018-12-15] MEDS: ZINC SULFATE 220 MG CAP PO SCH (08:22)
[2018-12-15] MEDS: LISINOPRIL 5 MG TAB PO SCH (08:22)
[2018-12-15] MEDS: HEPARIN 5,000 UNIT/1 ML VIAL SC SCH ×2 (08:23→21:15)
[2018-12-15] MEDS: INSULIN GLARGINE [LANTus] (100 UNITS/ML) SYG SC SCH (08:24)
[2018-12-15] MEDS: DAKINS 0.0125%(1/40) 473 ML SOLUTION TP SCH (08:24)
[2018-12-15] MEDS: metFORMIN (XR) 500 MG TAB PO SCH ×2 (08:24→16:53)
[2018-12-15] MEDS: GABAPENTIN (50 MG/ML PO SYG) PO SCH ×2 (08:24→21:12)
--- NOTE | 2018-12-15 10:31 | PN ---
Date/Time of Note Date/Time of Note DATE: 12/15/18 TIME: 10:28 Assessment/Plan VTE Prophylaxis Risk score (from Ns)>0 risk: 7 SCD applied (from Ns): Yes Pharmacological prophylaxis: NA/contraindicated Pharm contraindication: low risk/ambulating Lines/Catheters IV Catheter Type (from Nrsg): Saline Lock Urinary Cath still in place: No Assessment/Plan Assessment/Plan 1. Drainage from surgical site and groin area- stable - continue with wound vac with dressing changes twice a week - CM on board and arranging HH for wound vac changes once approved for full sco medical 2. Groin wound infection, enterococcus and Coag neg staph - wound vac in place per Vasc recommendations - ID on board for antibiotic recommendations and will continue current treatment. Once insurance approved, will need to see if patient able to afford Zyvox prior to discharge 3. 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 - Continue local wound care - Podiatry on board and appreciate consultation. no further procedures s cheduled at this time. will need to follow up as outpatient 4. Left frontal CVA - Neurology on board and appreciate recommendations - continue on aspirin and Plavix and statin 5. left-sided internal carotid artery stenosis - 25% per CT angiogram, continue aspirin, statin, Plavix per vascular surgeon 6. Acute hypoxic respiratory failure-resolved - doing well on room air - Pulmonology consultation appreciated 7. Cardiac arrest s/p ROSC - Cardiology on board and appreciate recommendations - ECHO with preserved EF 8. Severe peripheral vascular disease - s/p left femoral endarterectomy, iliofemoral bypass and femoral to posterior tibial bypass done on November 08, 2018 - Vascular surgery consultation appreciated. Continue aspirin and Plavix 9. Diabetes Mellitus - A1c noted - doing well on metformin XR. 10. Acute kidney injury- resolved - nephrology consultation appreciated 11. Essential HTN - Continue home medications at this time as tolerated 12. Peripheral neuropathy - cont. gabapentin 13. HLD - On statin 14. Chronic anemia - Stable H&H. Monitor - no need for transfusions at this time 15. Urinary retention, resolved - Urology on board and appreciate recommendations. - voiding without any issues 16. Disposition - Continue current care. Unable to discharge patient until full scope medical approved so HH for wound vac changes can be set up. Wound vac for home already delivered. Will need to see petra of [facility] as well prior to d/c home once ins urance obtained Result Diagram: 12/13/18 0603 Results 24hrs Laboratory Tests Test 12/14/18 11:48 12/14/18 17:22 12/14/18 22:00 12/15/18 08:19 Bedside Glucose 158 242 H 167 75 Subjective 24 Hr Interval Summary Free Text/Dictation Patient is resting comfortably and in no acute distress. Exam/Review of Systems Exam Vitals Vital Signs Date Temp Pulse Resp B/P (MAP) Pulse Ox O2 O2 Flow FiO2 Time Delivery Rate 12/15/18 97.8 100 16 114/60 98 08:00 (78) 12/15/18 Room Air 02:00 Intake and Output 12/14/18 12/14/18 12/15/18 1515:00 23:00 07:00 IntakeIntake Total 240 ml 840 ml OutputOutput Total 50 ml BalanceBalance 240 ml 790 ml Exam General: Patient is laying in bed. no acute distress Neck: Supple Respiratory: diminished bilaterally. no wheezing Cardiovascular: regular rate and rhythm, no obvious murmurs Gastrointestinal: non-tender to palpation, bowel sounds heard. Neurological: Moves all extremities spontaneously Skin: No new skin lesions, wound vac L groin in place Results Results 24hrs Laboratory Tests Test 12/14/18 11:48 12/14/18 17:22 12/14/18 22:00 12/15/18 08:19 Bedside Glucose 158 242 H 167 75 Medications Medication Current Medications Ergocalciferol (Drisdol) 50,000 unit Sa PO Last administered on 12/14/18at 08:55; Admin Dose 50,000 UNIT; Start 11/09/18 at 09:00 Clonidine (Catapres) 0.1 mg Q6H PRN PO SBP>160 Last administered on 11/19/18at 03:04; Admin Dose 0.1 MG; Start 11/04/18 at 09:00 IV Flush (NS 3 ml) 3 ml PER PROTOCOL IV ; Start 11/04/18 at 09:00 Ondansetron HCl (Zofran Inj) 4 mg Q6H PRN IV NAUSEA/VOMITING; Start 11/04/18 at 09:00 Acetaminophen (Tylenol Tab) 650 mg Q6H PRN PO .PAIN 1-3 OR TEMP Last administered on 12/14/18at 00:29; Admin Dose 650 MG; Start 11/04/18 at 09:00 Miscellaneous Information 1 ea NOTE XX ; Start 11/04/18 at 09:00 Glucose (Glutose) 15 gm Q15M PRN PO DECREASED GLUCOSE; Start 11/04/18 at 09:00 Glucose (Glutose) 22.5 gm Q15M PRN PO DECREASED GLUCOSE; Start 11/04/18 at 09:00 Dextrose (D50w Syringe) 25 ml Q15M PRN IV DECREASED GLUCOSE; Start 11/04/18 at 09:00 Dextrose (D50w Syringe) 50 ml Q15M PRN IV DECREASED GLUCOSE; Start 11/04/18 at 09:00 Glucagon (Glucagen) 1 mg Q15M PRN IM DECREASED GLUCOSE; Start 11/04/18 at 09:00 Glucose (Glutose) 15 gm Q15M PRN BUCCAL DECREASED GLUCOSE; Start 11/04/18 at 09:00 Miscellaneous Information Patients own medicat... BID@, XX Last administered on 11/20/18at 16:16; Admin Dose 1 EA; Start 11/04/18 at 16:00 Sodium Hypochlorite (Dakins Diluted ()) 1 applic BID TP Last administered on 12/14/18 22:02; Admin Dose 1 APPLIC; Start 11/07/18 at 09:00 Hydralazine HCl (Apresoline) 10 mg Q4H PRN IV sbp >160 Last administered on 11/20/18at 14:44; Admin Dose 10 MG; Start 11/08/18 at 09:00 Atropine Sulfate (Atropine) 0.5 mg PRN PRN IV SYMPTOMATIC BRADYCARDIA; Start 11/11/18 at 23:00 Heparin Sodium (Porcine) (Heparin (5000 Units/1ml)) 5,000 unit BID SC Last administered on 12/15/18 08:23; Admin Dose 5,000 UNIT; Start 11/14/18 at 21:00 Bisacodyl (Dulcolax Supp) 10 mg DAILY PRN [place] CONSTIPATION Last administered on 11/14/18 16:43; Admin Dose 10 MG; Start 11/14/18 at 16:30 IV Flush (NS 10 ml) 10 ml PRN PRN IV FLUSH LINE; Start 11/15/18 at 15:30 Gabapentin (Neurontin Liquid) 300 mg BID PO Last administered on 12/15/18 08:24; Admin Dose 300 MG; Start 11/18/18 at 21:00 Ascorbic Acid (Vitamin C) 500 mg DAILY PO Last administered on 12/15/18 08:20; Admin Dose 500 MG; Start 11/20/18 at 09:00 Zinc Sulfate (Zinc Sulfate) 220 mg DAILY PO Last administered on 12/15/18 08:22; Admin Dose 220 MG; Start 11/20/18 at 09:00 Atorvastatin Calcium (Lipitor) 80 mg QHS PO Last administered on 12/14/18 22:01; Admin Dose 80 MG; Start 11/19/18 at 21:00 Lorazepam (Ativan) 0.5 mg Q6H PRN IV anxiety/agitation Last administered on 11/22/18 19:32; Admin Dose 0.5 MG; Start 11/22/18 at 11:00 Clopidogrel Bisulfate (plaVIX) 75 mg DAILY PO Last administered on 12/15/18 08:20; Admin Dose 75 MG; Start 11/23/18 at 09:00 Haloperidol (Haldol) 5 mg Q12H PRN IM agitation Last administered on 11/22/18 19:44; Admin Dose 5 MG; Start 11/22/18 at 14:30 Quetiapine Fumarate (Seroquel) 25 mg QHS PO Last administered on 12/14/18 22:01; Admin Dose 25 MG; Start 11/26/18 at 21:00 Polyethylene Glycol (Miralax) 17 gm DAILY PRN PO constipation Last administered on 12/06/18 06:10; Admin Dose 17 GM; Start 11/29/18 at 08:02 Aspirin (Aspirin) 81 mg DAILY PO Last administered on 12/15/18 08:20; Admin Dose 81 MG; Start 11/29/18 at 09:00 Famotidine (Pepcid) 20 mg DAILY PO Last administered on 12/15/18 08:20; Admin Dose 20 MG; Start 11/29/18 at 09:00 Senna/Docusate Sodium (Senokot-S) 1 tab BID PRN PO constipation Last administered on 12/09/18 08:07; Admin Dose 1 TAB; Start 11/29/18 at 08:30 Lisinopril (Zestril) 2.5 mg DAILY PO Last administered on 12/15/18 08:22; Admin Dose 2.5 MG; Start 12/03/18 at 09:00 Furosemide (Lasix) 20 mg DAILY@0600 PO Last administered on 12/15/18 06:34; Admin Dose 20 MG; Start 12/04/18 at 10:30 Linezolid (Zyvox) 600 mg BID PO Last administered on 12/15/18 08:21; Admin Dose 600 MG; Start 12/06/18 at 14:00 Insulin Aspart (Novolog Insulin Pen) NOVOLOG *MODERATE* ALGORITHM WITH MEALS BEDTIME SC Last administered on 12/14/18 17:26; Admin Dose 6 UNIT; Start 12/08/18 at 21:00 Insulin Glargine (Lantus) 35 units DAILY@0800 SC Last administered on 12/15/18 08:24; Admin Dose 35 UNITS; Start 12/11/18 at 08:00 Metformin HCl (Glucophage Xr) 500 mg WITH BREAKFAST DINNE PO Last administered on 12/15/18 08:24; Admin Dose 500 MG; Start 12/13/18 at 18:05 Simethicone (Mylicon) 80 mg Q6H PRN PO DISTENSION/GAS/BLOATING; Start 12/13/18 at 17:30 Tramadol HCl (Ultram) 50 mg Q6H PRN PO MODERATE PAIN LEVEL 4-6 Last administered on 12/14/18 17:08; Admin Dose 50 MG; Start 12/14/18 at 17:00 KARL WOOD MD Dec 15, 2018 10:31
[2018-12-15] MEDS: MEROPENEM 1 GM/50ML(PMX) 50 ML IVPB SCH ×2 (12:03→21:22)
--- NOTE | 2018-12-15 13:39 | CONS ---
Assessment/Plan Assessment/Plan Hospital Course (Demo Recall) IMPRESSION: 1. Preoperative evaluation prior to possible need for peripheral revascularization surgery.-neg trop x 3 and NL EF by echo with no sig valve abnl. Echo repeat 11/13 with NL EF 2. Peripheral arterial disease with nonhealing gangrenous changes in left toe ulceration. 3. Hypertension-now tolerating low dose ACEI 4. Dyslipidemia. 5. Diabetes mellitus. 6. s/p cardiopulmonary arrest 7. Bradycardic intermittent by tele-now resolved 8. Positive troponin after arrest-? secondary to or primary to arrest, likely secondary to arrest, type 2 demand infarct, as no signifcant uptrend and now downtrended to negative 9. Resp failure-s/p extubation 10. CVA-Acute by MRI 11.Groin wound 12. UTI-fungal Recc: -Now on med-surg -Continue asa/plavix/statin for cva -serial ecg's -Continue now meropenem and f/u bld cx's -local wound care -follow volume status closely now back on daily PO lasix -follow MS closely -Continue now zestril mononotherapy at reduced dose which patient is tolerating Consultation Date/Type/Reason Admit Date/Time Nov 04, 2018 at 07:34 Initial Consult Date 11/06/18 Type of Consult Cardiology Reason for Consultation preop Requesting Provider: KARL WOOD MD Date/Time of Note DATE: 12/15/18 TIME: 13:37 Exam/Review of Systems Vital Signs Vitals Vital Signs Date Temp Pulse Resp B/P (MAP) Pulse Ox O2 O2 Flow FiO2 Time Delivery Rate 12/15/18 97.8 100 16 114/60 98 08:00 (78) 12/15/18 Room Air 02:00 Intake and Output 12/14/18 12/14/18 12/15/18 1515:00 23:00 07:00 IntakeIntake Total 240 ml 840 ml OutputOutput Total 50 ml BalanceBalance 240 ml 790 ml Exam Exam Review of Systems: CONSTITUTIONAL: No fevers, chills. PULMONARY: No sob CARDIOVASCULAR: No chest pain/palpitations GASTROINTESTINAL: No nausea/vomiting. GENITOURINARY: No hematuria/dysuria. MUSCULOSKELETAL: No myagias/arthalgias. PSYCHIATRIC: The patient denies depression. NEUROLOGIC: No weakness Constitutional: alert Psych: no complaints Head: normocephalic ENMT: mucosa pink and moist Neck: supple, jvd (9 cm watyert) Respiratory: diminished breath sounds Cardiovascular: regular rate and rhythm Gastrointestinal: soft, non-tender Musculoskeletal: muscle tone (normal) Extremities: edema (none) Neurological: other (No focal deficits) Labs Result Diagram: 12/13/18 0603 Results 24hrs Laboratory Tests Test 12/14/18 17:22 12/14/18 22:00 12/15/18 08:19 12/15/18 12:03 Bedside Glucose 242 H 167 75 128 Medications Medications Current Medications Ergocalciferol (Drisdol) 50,000 unit Sa PO Last administered on 12/14/18at 08 :55; Admin Dose 50,000 UNIT; Start 11/09/18 at 09:00 Clonidine (Catapres) 0.1 mg Q6H PRN PO SBP>160 Last administered on 11/19/18at 03:04; Admin Dose 0.1 MG; Start 11/04/18 at 09:00 IV Flush (NS 3 ml) 3 ml PER PROTOCOL IV ; Start 11/04/18 at 09:00 Ondansetron HCl (Zofran Inj) 4 mg Q6H PRN IV NAUSEA/VOMITING; Start 11/04/18 at 09:00 Acetaminophen (Tylenol Tab) 650 mg Q6H PRN PO .PAIN 1-3 OR TEMP Last administered on 12/14/18at 00:29; Admin Dose 650 MG; Start 11/04/18 at 09:00 Miscellaneous Information 1 ea NOTE XX ; Start 11/04/18 at 09:00 Glucose (Glutose) 15 gm Q15M PRN PO DECREASED GLUCOSE; Start 11/04/18 at 09:00 Glucose (Glutose) 22.5 gm Q15M PRN PO DECREASED GLUCOSE; Start 11/04/18 at 09:00 Dextrose (D50w Syringe) 25 ml Q15M PRN IV DECREASED GLUCOSE; Start 11/04/18 at 09:00 Dextrose (D50w Syringe) 50 ml Q15M PRN IV DECREASED GLUCOSE; Start 11/04/18 at 09:00 Glucagon (Glucagen) 1 mg Q15M PRN IM DECREASED GLUCOSE; Start 11/04/18 at 09:00 Glucose (Glutose) 15 gm Q15M PRN BUCCAL DECREASED GLUCOSE; Start 11/04/18 at 09:00 Miscellaneous Information Patients own medicat... BID@10,16 XX Last administered on 11/20/18 16:16; Admin Dose 1 EA; Start 11/04/18 at 16:00 Hydralazine HCl (Apresoline) 10 mg Q4H PRN IV sbp >160 Last administered on 11/20/18 14:44; Admin Dose 10 MG; Start 11/08/18 at 09:00 Atropine Sulfate (Atropine) 0.5 mg PRN PRN IV SYMPTOMATIC BRADYCARDIA; Start 11/11/18 at 23:00 Heparin Sodium (Porcine) (Heparin (5000 Units/1ml)) 5,000 unit BID SC Last administered on 12/15/18 08:23; Admin Dose 5,000 UNIT; Start 11/14/18 at 21:00 Bisacodyl (Dulcolax Supp) 10 mg DAILY PRN [place] CONSTIPATION Last administered on 11/14/18 16:43; Admin Dose 10 MG; Start 11/14/18 at 16:30 IV Flush (NS 10 ml) 10 ml PRN PRN IV FLUSH LINE; Start 11/15/18 at 15:30 Gabapentin (Neurontin Liquid) 300 mg BID PO Last administered on 12/15/18 08:24; Admin Dose 300 MG; Start 11/18/18 at 21:00 Ascorbic Acid (Vitamin C) 500 mg DAILY PO Last administered on 12/15/18 08:20; Admin Dose 500 MG; Start 11/20/18 at 09:00 Zinc Sulfate (Zinc Sulfate) 220 mg DAILY PO Last administered on 12/15/18 08:22; Admin Dose 220 MG; Start 11/20/18 at 09:00 Atorvastatin Calcium (Lipitor) 80 mg QHS PO Last administered on 12/14/18 22:01; Admin Dose 80 MG; Start 11/19/18 at 21:00 Lorazepam (Ativan) 0.5 mg Q6H PRN IV anxiety/agitation Last administered on 11/22/18 19:32; Admin Dose 0.5 MG; Start 11/22/18 at 11:00 Clopidogrel Bisulfate (plaVIX) 75 mg DAILY PO Last administered on 12/15/18 08:20; Admin Dose 75 MG; Start 11/23/18 at 09:00 Haloperidol (Haldol) 5 mg Q12H PRN IM agitation Last administered on 11/22/18 19:44; Admin Dose 5 MG; Start 11/22/18 at 14:30 Quetiapine Fumarate (Seroquel) 25 mg QHS PO Last administered on 12/14/18 22:01; Admin Dose 25 MG; Start 11/26/18 at 21:00 Polyethylene Glycol (Miralax) 17 gm DAILY PRN PO constipation Last administered on 12/06/18 06:10; Admin Dose 17 GM; Start 11/29/18 at 08:02 Aspirin (Aspirin) 81 mg DAILY PO Last administered on 12/15/18 08:20; Admin Dose 81 MG; Start 11/29/18 at 09:00 Famotidine (Pepcid) 20 mg DAILY PO Last administered on 12/15/18 08:20; Admin Dose 20 MG; Start 11/29/18 at 09:00 Senna/Docusate Sodium (Senokot-S) 1 tab BID PRN PO constipation Last administered on 12/09/18 08:07; Admin Dose 1 TAB; Start 11/29/18 at 08:30 Lisinopril (Zestril) 2.5 mg DAILY PO Last administered on 12/15/18 08:22; Admin Dose 2.5 MG; Start 12/03/18 at 09:00 Furosemide (Lasix) 20 mg DAILY@0600 PO Last administered on 12/15/18 06:34; Admin Dose 20 MG; Start 12/04/18 at 10:30 Insulin Aspart (Novolog Insulin Pen) NOVOLOG *MODERATE* ALGORITHM WITH MEALS BEDTIME SC Last administered on 12/14/18 17:26; Admin Dose 6 UNIT; Start 12/08/18 at 21:00 Insulin Glargine (Lantus) 35 units DAILY@0800 SC Last administered on 12/15/18 08:24; Admin Dose 35 UNITS; Start 12/11/18 at 08:00 Metformin HCl (Glucophage Xr) 500 mg WITH BREAKFAST DINNE PO Last administered on 12/15/18 08:24; Admin Dose 500 MG; Start 12/13/18 at 18:05 Simethicone (Mylicon) 80 mg Q6H PRN PO DISTENSION/GAS/BLOATING; Start 12/13/18 at 17:30 Tramadol HCl (Ultram) 50 mg Q6H PRN PO MODERATE PAIN LEVEL 4-6 Last administered on 12/14/18at 17:08; Admin Dose 50 MG; Start 12/14/18 at 17:00 Meropenem/Sodium Chloride 50 ml @ 100 mls/hr Q8 IVPB Last administered on 12/15/18at 12:03; Admin Dose 100 MLS/HR; Start 12/15/18 at 12:00 KLEVER HUNT Dec 15, 2018 13:39
--- NOTE | 2018-12-15 13:46 | CONS ---
Consultation Date/Type/Reason Admit Date/Time Nov 04, 2018 at 07:34 Initial Consult Date SUBJECTIVE: Pt is awake, afbrile, looks comfortable. VS: stable T: 97.9 LABS: Reviewed. MICROBIOLOGY: Left groin wound culture grew coag negative staph and scant enterococcus WOUND CULTURE GRAM STAIN Final POLYMORPH. LEUKOCYTE NONE SEEN . NO ORGANISM SEEN WOUND CULTURE Preliminary Organism 1 GRAM NEGATIVE FRANCINE QUANTITY 1+ Organism 2 GRAM POSITIVE COCCI QUANTITY ISOLATED FROM BROTH ONLY GNR GNR M.I.C. RX M.I.C. RX --------- --- --------- --- AMIKACIN 8 S CEFAZOLIN R CEFEPIME >=64 R CEFOTAXIME R CIPROFLOXACIN >=4 R GENTAMICIN >=16 R LEVOFLOXACIN >=8 R MEROPENEM 0.38 S TOBRAMYCIN >=16 R TRIMETHOPRIM/SULFAMETHOXAZOLE >=320 R PIPERACILLIN/TAZOBACTAM >=128 R Bld cx + Staph Abx: Zyvox Physical examination: GEN: Well-developed elderly man, who is in no distress HENT: head atraumatic normocephalic; neck is supple PULM: chest rise symmetrical breath sounds CTA Heart: S1-S2 Abdomen: soft, bowel sounds present Extremities with left foot dressing intact Assessment: 1. Bacteremia, cw contaminant 2. UTI per ua==> neg cx 3. Status post cardiac arrest/non-ST elevation [place] 4. Status post acute respiratory failure, possibly aspirated 5. Peripheral arterial disease status post left femoral to posterior tibial bypass 11/08/18 6. Diabetes 7. History of left foot second toe amputation Plan: Pt is stable. Left groin wound culture growing staph and enterococcus. Change Zyvox to Merrem. Podiatry following. Pending D/C with . Requesting Provider: KARL WOOD MD Date/Time of Note DATE: 12/15/18 TIME: 13:45 Exam/Review of Systems Exam Vitals Vital Signs Date Temp Pulse Resp B/P (MAP) Pulse Ox O2 O2 Flow FiO2 Time Delivery Rate 12/15/18 97.8 100 16 114/60 98 08:00 (78) 12/15/18 Room Air 02:00 Intake and Output 12/14/18 12/14/18 12/15/18 1515:00 23:00 07:00 IntakeIntake Total 240 ml 840 ml OutputOutput Total 50 ml BalanceBalance 240 ml 790 ml Results Result Diagram: 12/13/18 0603 Results 24hrs Laboratory Tests Test 12/14/18 17:22 12/14/18 22:00 12/15/18 08:19 12/15/18 12:03 Bedside Glucose 242 H 167 75 128 Medications Medication Current Medications Ergocalciferol (Drisdol) 50,000 unit Sa PO Last administered on 12/14/18at 08:55; Admin Dose 50,000 UNIT; Start 11/09/18 at 09:00 Clonidine (Catapres) 0.1 mg Q6H PRN PO SBP>160 Last administered on 11/19/18at 03:04; Admin Dose 0.1 MG; Start 11/04/18 at 09:00 IV Flush (NS 3 ml) 3 ml PER PROTOCOL IV ; Start 11/04/18 at 09:00 Ondansetron HCl (Zofran Inj) 4 mg Q6H PRN IV NAUSEA/VOMITING; Start 11/04/18 at 09:00 Acetaminophen (Tylenol Tab) 650 mg Q6H PRN PO .PAIN 1-3 OR TEMP Last administered on 12/14/18at 00:29; Admin Dose 650 MG; Start 11/04/18 at 09:00 Miscellaneous Information 1 ea NOTE XX ; Start 11/04/18 at 09:00 Glucose (Glutose) 15 gm Q15M PRN PO DECREASED GLUCOSE; Start 11/04/18 at 09:00 Glucose (Glutose) 22.5 gm Q15M PRN PO DECREASED GLUCOSE; Start 11/04/18 at 09:00 Dextrose (D50w Syringe) 25 ml Q15M PRN IV DECREASED GLUCOSE; Start 11/04/18 at 09:00 Dextrose (D50w Syringe) 50 ml Q15M PRN IV DECREASED GLUCOSE; Start 11/04/18 at 09:00 Glucagon (Glucagen) 1 mg Q15M PRN IM DECREASED GLUCOSE; Start 11/04/18 at 09:00 Glucose (Glutose) 15 gm Q15M PRN BUCCAL DECREASED GLUCOSE; Start 11/04/18 at 09:00 Miscellaneous Information Patients own medicat... BID@10,16 XX Last administered on 11/20/18at 16:16; Admin Dose 1 EA; Start 11/04/18 at 16:00 Hydralazine HCl (Apresoline) 10 mg Q4H PRN IV sbp >160 Last administered on 11/20/18 14:44; Admin Dose 10 MG; Start 11/08/18 at 09:00 Atropine Sulfate (Atropine) 0.5 mg PRN PRN IV SYMPTOMATIC BRADYCARDIA; Start 11/11/18 at 23:00 Heparin Sodium (Porcine) (Heparin (5000 Units/1ml)) 5,000 unit BID SC Last administered on 12/15/18 08:23; Admin Dose 5,000 UNIT; Start 11/14/18 at 21:00 Bisacodyl (Dulcolax Supp) 10 mg DAILY PRN [place] CONSTIPATION Last administered on 11/14/18 16:43; Admin Dose 10 MG; Start 11/14/18 at 16:30 IV Flush (NS 10 ml) 10 ml PRN PRN IV FLUSH LINE; Start 11/15/18 at 15:30 Gabapentin (Neurontin Liquid) 300 mg BID PO Last administered on 12/15/18 08:24; Admin Dose 300 MG; Start 11/18/18 at 21:00 Ascorbic Acid (Vitamin C) 500 mg DAILY PO Last administered on 12/15/18 08:20; Admin Dose 500 MG; Start 11/20/18 at 09:00 Zinc Sulfate (Zinc Sulfate) 220 mg DAILY PO Last administered on 12/15/18 08:22; Admin Dose 220 MG; Start 11/20/18 at 09:00 Atorvastatin Calcium (Lipitor) 80 mg QHS PO Last administered on 12/14/18 22:01; Admin Dose 80 MG; Start 11/19/18 at 21:00 Lorazepam (Ativan) 0.5 mg Q6H PRN IV anxiety/agitation Last administered on 11/22/18 19:32; Admin Dose 0.5 MG; Start 11/22/18 at 11:00 Clopidogrel Bisulfate (plaVIX) 75 mg DAILY PO Last administered on 12/15/18 08:20; Admin Dose 75 MG; Start 11/23/18 at 09:00 Haloperidol (Haldol) 5 mg Q12H PRN IM agitation Last administered on 11/22/18 19:44; Admin Dose 5 MG; Start 11/22/18 at 14:30 Quetiapine Fumarate (Seroquel) 25 mg QHS PO Last administered on 12/14/18 22:01; Admin Dose 25 MG; Start 11/26/18 at 21:00 Polyethylene Glycol (Miralax) 17 gm DAILY PRN PO constipation Last administered on 12/06/18 06:10; Admin Dose 17 GM; Start 11/29/18 at 08:02 Aspirin (Aspirin) 81 mg DAILY PO Last administered on 12/15/18 08:20; Admin Dose 81 MG; Start 11/29/18 at 09:00 Famotidine (Pepcid) 20 mg DAILY PO Last administered on 12/15/18 08:20; Admin Dose 20 MG; Start 11/29/18 at 09:00 Senna/Docusate Sodium (Senokot-S) 1 tab BID PRN PO constipation Last admini stered on 12/09/18 08:07; Admin Dose 1 TAB; Start 11/29/18 at 08:30 Lisinopril (Zestril) 2.5 mg DAILY PO Last administered on 12/15/18 08:22; Admin Dose 2.5 MG; Start 12/03/18 at 09:00 Furosemide (Lasix) 20 mg DAILY@0600 PO Last administered on 12/15/18 06:34; Admin Dose 20 MG; Start 12/04/18 at 10:30 Insulin Aspart (Novolog Insulin Pen) NOVOLOG *MODERATE* ALGORITHM WITH MEALS BEDTIME SC Last administered on 12/14/18 17:26; Admin Dose 6 UNIT; Start 12/08/18 at 21:00 Insulin Glargine (Lantus) 35 units DAILY@0800 SC Last administered on 12/15/18 08:24; Admin Dose 35 UNITS; Start 12/11/18 at 08:00 Metformin HCl (Glucophage Xr) 500 mg WITH BREAKFAST DINNE PO Last administered on 12/15/18 08:24; Admin Dose 500 MG; Start 12/13/18 at 18:05 Simethicone (Mylicon) 80 mg Q6H PRN PO DISTENSION/GAS/BLOATING; Start 12/13/18 at 17:30 Tramadol HCl (Ultram) 50 mg Q6H PRN PO MODERATE PAIN LEVEL 4-6 Last administered on 12/14/18 17:08; Admin Dose 50 MG; Start 12/14/18 at 17:00 Meropenem/Sodium Chloride 50 ml @ 100 mls/hr Q8 IVPB Last administered on 12/15/18at 12:03; Admin Dose 100 MLS/HR; Start 12/15/18 at 12:00 THAIS COLLINS Dec 15, 2018 13:46
[2018-12-15 14:04] VITALS: BP 102/48; PULSE 103; RESP 16
[2018-12-15 20:00] VITALS: BP 125/69; PULSE 107; RESP 18
[2018-12-15] MEDS: ATORVASTATIN 80 MG TAB PO SCH (21:12)
[2018-12-15] MEDS: QUETIAPINE 25 MG TAB PO SCH (21:12)
[2018-12-15] MEDS: traMADol 50 MG TAB PO PRN (21:26)
[2018-12-15] MEDS ORDERED: SOD CHLORIDE 0.9% 500 ML IV ONE (23:30)
[2018-12-16] MEDS: LACTOBACILLUS RHAMNOSUS CAP PO SCH ×3 (00:23→20:27)
[2018-12-16 02:00] VITALS: BP 98/54; PULSE 100; RESP 19
[2018-12-16] MEDS: MEROPENEM 1 GM/50ML(PMX) 50 ML IVPB SCH ×3 (06:10→21:45)
[2018-12-16] MEDS: FUROSEMIDE 20 MG TAB PO SCH (06:12)
[2018-12-16] MEDS: INSULIN ASPART [NOVOLOG] 3 ML PEN SC SCH ×4 (08:00→20:26)
[2018-12-16 08:05] VITALS: BP 121/62; PULSE 16; PULSE 92; RESP 16
[2018-12-16] MEDS: ASPIRIN 81 MG TAB PO SCH (09:14)
[2018-12-16] MEDS: ASCORBIC ACID 500 MG TAB PO SCH (09:14)
[2018-12-16] MEDS: CLOPIDOGREL 75 MG TAB PO SCH (09:14)
[2018-12-16] MEDS: ZINC SULFATE 220 MG CAP PO SCH (09:14)
[2018-12-16] MEDS: FAMOTIDINE 20 MG TAB PO SCH (09:14)
[2018-12-16] MEDS: LISINOPRIL 5 MG TAB PO SCH (09:15)
[2018-12-16] MEDS: HEPARIN 5,000 UNIT/1 ML VIAL SC SCH ×2 (09:15→20:26)
[2018-12-16] MEDS: metFORMIN (XR) 500 MG TAB PO SCH ×2 (09:18→18:14)
[2018-12-16] MEDS: INSULIN GLARGINE [LANTus] (100 UNITS/ML) SYG SC SCH (09:19)
[2018-12-16] MEDS: GABAPENTIN (50 MG/ML PO SYG) PO SCH ×2 (09:22→20:29)
--- NOTE | 2018-12-16 11:38 | QN ---
Documentation Comment No c/o. VAC in place L groin, drainage has decreased - 50 cc / 24 hours reported AFVSS L groin incision is clean and dry, no erythema, VAC in place with good seal. - L groin wound cx now growing Klebsiella and Enterococcus although the wound looks good except for the lymphatic drainage - now on Meroopenem, ID following - continue VAC - will plan for L groin exploration and washout on , possible removal of Goretex graft and replacement with cadaveric femoral artery graft KLEVER FOREMAN MD Dec 16, 2018 11:37
--- NOTE | 2018-12-16 12:45 | CONS ---
Assessment/Plan Assessment/Plan Hospital Course (Demo Recall) IMPRESSION: 1. Preoperative evaluation prior to possible need for peripheral revascularization surgery.-neg trop x 3 and NL EF by echo with no sig valve abnl. Echo repeat 11/13 with NL EF 2. Peripheral arterial disease with nonhealing gangrenous changes in left toe ulceration. 3. Hypertension-now tolerating low dose ACEI 4. Dyslipidemia. 5. Diabetes mellitus. 6. s/p cardiopulmonary arrest 7. Bradycardic intermittent by tele-now resolved 8. Positive troponin after arrest-? secondary to or primary to arrest, likely secondary to arrest, type 2 demand infarct, as no signifcant uptrend and now downtrended to negative 9. Resp failure-s/p extubation 10. CVA-Acute by MRI 11.Groin wound Recc: -Now on med-surg -Continue asa/plavix/statin for cva -serial ecg's -Continue now meropenem/amoxicillin and f/u bld cx's and exam -local wound care -follow volume status closely now back on daily PO lasix -follow MS closely -Continue now zestril mononotherapy at reduced dose which patient is tolerating Consultation Date/Type/Reason Admit Date/Time Nov 04, 2018 at 07:34 Initial Consult Date 11/06/18 Type of Consult Cardiology Reason for Consultation HTN Requesting Provider: KARL WOOD MD Date/Time of Note DATE: 12/16/18 TIME: 12:44 Exam/Review of Systems Vital Signs Vitals Vital Signs Date Temp Pulse Resp B/P (MAP) Pulse Ox O2 O2 Flow FiO2 Time Delivery Rate 12/16/18 98.2 92 16 121/62 94 08:05 (81) 16 12/15/18 Room Air 02:00 Intake and Output 12/15/18 12/15/18 12/16/18 1515:00 23:00 07:00 IntakeIntake Total 1250 ml 1050 ml 1390 ml BalanceBalance 1250 ml 1050 ml 1390 ml Exam Exam Review of Systems: CONSTITUTIONAL: No fevers, chills. PULMONARY: No sob CARDIOVASCULAR: No chest pain/palpitations GASTROINTESTINAL: No nausea/vomiting. GENITOURINARY: No hematuria/dysuria. MUSCULOSKELETAL: No myagias/arthalgias. PSYCHIATRIC: The patient denies depression. NEUROLOGIC: No weakness Constitutional: alert Psych: no complaints Head: normocephalic ENMT: mucosa pink and moist Neck: supple, jvd (8 cm water) Respiratory: clear to auscultation Cardiovascular: regular rate and rhythm Gastrointestinal: soft, non-tender Musculoskeletal: muscle weakness (mild generalized) Extremities: edema (Trace LLE), other (L foot covered by dressing) Neurological: other (No focal deficits) Labs Result Diagram: 12/13/18 0603 Results 24hrs Laboratory Tests Test 12/15/18 17:18 12/15/18 21:10 12/16/18 08:02 12/16/18 08:04 Bedside Glucose 118 162 69 L 66 L Test 12/16/18 08:57 12/16/18 09:29 12/16/18 12:08 Bedside Glucose 78 144 100 Medications Medications Current Medications Ergocalciferol (Drisdol) 50,000 unit Sa PO Last administered on 12/14/18at 08:55; Admin Dose 50,000 UNIT; Start 11/09/18 at 09:00 Clonidine (Catapres) 0.1 mg Q6H PRN PO SBP>160 Last administered on 11/19/18at 03:04; Admin Dose 0.1 MG; Start 11/04/18 at 09:00 IV Flush (NS 3 ml) 3 ml PER PROTOCOL IV ; Start 11/04/18 at 09:00 Ondansetron HCl (Zofran Inj) 4 mg Q6H PRN IV NAUSEA/VOMITING Last administered on 12/15/18at 16:52; Admin Dose 4 MG; Start 11/04/18 at 09:00 Acetaminophen (Tylenol Tab) 650 mg Q6H PRN PO .PAIN 1-3 OR TEMP Last administered on 12/14/18at 00:29; Admin Dose 650 MG; Start 11/04/18 at 09:00 Miscellaneous Information 1 ea NOTE XX ; Start 11/04/18 at 09:00 Glucose (Glutose) 15 gm Q15M PRN PO DECREASED GLUCOSE; Start 11/04/18 at 09:00 Glucose (Glutose) 22.5 gm Q15M PRN PO DECREASED GLUCOSE; Start 11/04/18 at 09:00 Dextrose (D50w Syringe) 25 ml Q15M PRN IV DECREASED GLUCOSE; Start 11/04/18 at 09:00 Dextrose (D50w Syringe) 50 ml Q15M PRN IV DECREASED GLUCOSE; Start 11/04/18 at 09:00 Glucagon (Glucagen) 1 mg Q15M PRN IM DECREASED GLUCOSE; Start 11/04/18 at 09:00 Glucose (Glutose) 15 gm Q15M PRN BUCCAL DECREASED GLUCOSE; Start 11/04/18 at 09:00 Miscellaneous Information Patients own medicat... BID@10,16 XX Last administered on 11/20/18at 16:16; Admin Dose 1 EA; Start 11/04/18 at 16:00 Hydralazine HCl (Apresoline) 10 mg Q4H PRN IV sbp >160 Last administered on 11/20/18 14:44; Admin Dose 10 MG; Start 11/08/18 at 09:00 Atropine Sulfate (Atropine) 0.5 mg PRN PRN IV SYMPTOMATIC BRADYCARDIA; Start 11/11/18 at 23:00 Heparin Sodium (Porcine) (Heparin (5000 Units/1ml)) 5,000 unit BID SC Last adm inistered on 12/16/18at 09:15; Admin Dose 5,000 UNIT; Start 11/14/18 at 21:00 Bisacodyl (Dulcolax Supp) [address] CONSTIPATION Last administered on 11/14/18 16:43; Admin Dose 10 MG; Start 11/14/18 at 16:30 IV Flush (NS 10 ml) 10 ml PRN PRN IV FLUSH LINE; Start 11/15/18 at 15:30 Gabapentin (Neurontin Liquid) 300 mg BID PO Last administered on 12/16/18at 09:22; Admin Dose 300 MG; Start 11/18/18 at 21:00 Ascorbic Acid (Vitamin C) 500 mg DAILY PO Last administered on 12/16/18 09:14; Admin Dose 500 MG; Start 11/20/18 at 09:00 Zinc Sulfate (Zinc Sulfate) 220 mg DAILY PO Last administered on 12/16/18at 09:14; Admin Dose 220 MG; Start 11/20/18 at 09:00 Atorvastatin Calcium (Lipitor) 80 mg QHS PO Last administered on 12/15/18at 21:12; Admin Dose 80 MG; Start 11/19/18 at 21:00 Lorazepam (Ativan) 0.5 mg Q6H PRN IV anxiety/agitation Last administered on 11/22/18 19:32; Admin Dose 0.5 MG; Start 11/22/18 at 11:00 Clopidogrel Bisulfate (plaVIX) 75 mg DAILY PO Last administered on 12/16/18 09:14; Admin Dose 75 MG; Start 11/23/18 at 09:00 Haloperidol (Haldol) 5 mg Q12H PRN IM agitation Last administered on 11/22/18 19:44; Admin Dose 5 MG; Start 11/22/18 at 14:30 Quetiapine Fumarate (Seroquel) 25 mg QHS PO Last administered on 12/15/18 21:12; Admin Dose 25 MG; Start 11/26/18 at 21:00 Polyethylene Glycol (Miralax) 17 gm DAILY PRN PO constipation Last administered on 12/06/18 06:10; Admin Dose 17 GM; Start 11/29/18 at 08:02 Aspirin (Aspirin) 81 mg DAILY PO Last administered on 12/16/18 09:14; Admin Dose 81 MG; Start 11/29/18 at 09:00 Famotidine (Pepcid) 20 mg DAILY PO Last administered on 12/16/18 09:14; Admin Dose 20 MG; Start 11/29/18 at 09:00 Senna/Docusate Sodium (Senokot-S) 1 tab BID PRN PO constipation Last administered on 12/09/18 08:07; Admin Dose 1 TAB; Start 11/29/18 at 08:30 Lisinopril (Zestril) 2.5 mg DAILY PO Last administered on 12/16/18 09:15; Admin Dose 2.5 MG; Start 12/03/18 at 09:00 Furosemide (Lasix) 20 mg DAILY@0600 PO Last administered on 12/16/18 06:12; Admin Dose 20 MG; Start 12/04/18 at 10:30 Insulin Aspart (Novolog Insulin Pen) NOVOLOG *MODERATE* ALGORITHM WITH MEALS BEDTIME SC Last administered on 12/14/18 17:26; Admin Dose 6 UNIT; Start 12/08/18 at 21:00 Insulin Glargine (Lantus) 35 units DAILY@0800 SC Last administered on 12/16/18 09:19; Admin Dose 35 UNITS; Start 12/11/18 at 08:00 Metformin HCl (Glucophage Xr) 500 mg WITH BREAKFAST DINNE PO Last administered on 12/16/18 09:18; Admin Dose 500 MG; Start 12/13/18 at 18:05 Simethicone (Mylicon) 80 mg Q6H PRN PO DISTENSION/GAS/BLOATING; Start 12/13/18 at 17:30 Tramadol HCl (Ultram) 50 mg Q6H PRN PO MODERATE PAIN LEVEL 4-6 Last administered on 12/15/18 21:26; Admin Dose 50 MG; Start 12/14/18 at 17:00 Meropenem/Sodium Chloride 50 ml @ 100 mls/hr Q8 IVPB Last administered on 12/16/18 06:10; Admin Dose 100 MLS/HR; Start 12/15/18 at 12:00 Lactobacillus Acidophilus/ Rhamnosus (Culturelle) 1 cap BID PO Last administered on 12/16/18 09:14; Admin Dose 1 CAP; Start 12/15/18 at 23:30 Amoxicillin (Amoxicillin) 500 mg Q8 PO ; Start 12/16/18 at 14:00 KLEVER HUNT Dec 16, 2018 12:45
--- NOTE | 2018-12-16 13:02 | PN ---
Date/Time of Note Date/Time of Note DATE: 12/16/18 TIME: 13:01 Objective Vitals Vital Signs Date Temp Pulse Resp B/P (MAP) Pulse Ox O2 O2 Flow FiO2 Time Delivery Rate 12/16/18 98.2 92 16 121/62 94 08:05 (81) 16 12/15/18 Room Air 02:00 Intake and Output 12/15/18 12/15/18 12/16/18 1515:00 23:00 07:00 IntakeIntake Total 1250 ml 1050 ml 1390 ml BalanceBalance 1250 ml 1050 ml 1390 ml Results Result Diagram: 12/13/18 0603 Medications Medications Current Medications Ergocalciferol (Drisdol) 50,000 unit Sa PO Last administered on 12/14/18at 08:55; Admin Dose 50,000 UNIT; Start 11/09/18 at 09:00 Clonidine (Catapres) 0.1 mg Q6H PRN PO SBP>160 Last administered on 11/19/18at 03:04; Admin Dose 0.1 MG; Start 11/04/18 at 09:00 IV Flush (NS 3 ml) 3 ml PER PROTOCOL IV ; Start 11/04/18 at 09:00 Ondansetron HCl (Zofran Inj) 4 mg Q6H PRN IV NAUSEA/VOMITING Last administered on 12/15/18at 16:52; Admin Dose 4 MG; Start 11/04/18 at 09:00 Acetaminophen (Tylenol Tab) 650 mg Q6H PRN PO .PAIN 1-3 OR TEMP Last administered on 12/14/18at 00:29; Admin Dose 650 MG; Start 11/04/18 at 09:00 Miscellaneous Information 1 ea NOTE XX ; Start 11/04/18 at 09:00 Glucose (Glutose) 15 gm Q15M PRN PO DECREASED GLUCOSE; Start 11/04/18 at 09:00 Glucose (Glutose) 22.5 gm Q15M PRN PO DECREASED GLUCOSE; Start 11/04/18 at 09:00 Dextrose (D50w Syringe) 25 ml Q15M PRN IV DECREASED GLUCOSE; Start 11/04/18 at 09:00 Dextrose (D50w Syringe) 50 ml Q15M PRN IV DECREASED GLUCOSE; Start 11/04/18 at 09:00 Glucagon (Glucagen) 1 mg Q15M PRN IM DECREASED GLUCOSE; Start 11/04/18 at 09:00 Glucose (Glutose) 15 gm Q15M PRN BUCCAL DECREASED GLUCOSE; Start 11/04/18 at 09:00 Miscellaneous Information Patients own medicat... BID@10,16 XX Last administered on 11/20/18 16:16; Admin Dose 1 EA; Start 11/04/18 at 16:00 Hydralazine HCl (Apresoline) 10 mg Q4H PRN IV sbp >160 Last administered on 11/20/18 14:44; Admin Dose 10 MG; Start 11/08/18 at 09:00 Atropine Sulfate (Atropine) 0.5 mg PRN PRN IV SYMPTOMATIC BRADYCARDIA; Start 11/11/18 at 23:00 Heparin Sodium (Porcine) (Heparin (5000 Units/1ml)) 5,000 unit BID SC Last administered on 12/16/18 09:15; Admin Dose 5,000 UNIT; Start 11/14/18 at 21:00 Bisacodyl (Dulcolax Supp) 10 mg DAILY PRN [place] CONSTIPATION Last administered on 11/14/18 16:43; Admin Dose 10 MG; Start 11/14/18 at 16:30 IV Flush (NS 10 ml) 10 ml PRN PRN IV FLUSH LINE; Start 11/15/18 at 15:30 Gabapentin (Neurontin Liquid) 300 mg BID PO Last administered on 12/16/18 09:22; Admin Dose 300 MG; Start 11/18/18 at 21:00 Ascorbic Acid (Vitamin C) 500 mg DAILY PO Last administered on 12/16/18 09:14; Admin Dose 500 MG; Start 11/20/18 at 09:00 Zinc Sulfate (Zinc Sulfate) 220 mg DAILY PO Last administered on 12/16/18 09:14; Admin Dose 220 MG; Start 11/20/18 at 09:00 Atorvastatin Calcium (Lipitor) 80 mg QHS PO Last administered on 12/15/18 21:12; Admin Dose 80 MG; Start 11/19/18 at 21:00 Lorazepam (Ativan) 0.5 mg Q6H PRN IV anxiety/agitation Last administered on 11/22/18 19:32; Admin Dose 0.5 MG; Start 11/22/18 at 11:00 Clopidogrel Bisulfate (plaVIX) 75 mg DAILY PO Last administered on 12/16/18 09:14; Admin Dose 75 MG; Start 11/23/18 at 09:00 Haloperidol (Haldol) 5 mg Q12H PRN IM agitation Last administered on 11/22/18 19:44; Admin Dose 5 MG; Start 11/22/18 at 14:30 Quetiapine Fumarate (Seroquel) 25 mg QHS PO Last administered on 12/15/18 21:12; Admin Dose 25 MG; Start 11/26/18 at 21:00 Polyethylene Glycol (Miralax) 17 gm DAILY PRN PO constipation Last administered on 12/06/18 06:10; Admin Dose 17 GM; Start 11/29/18 at 08:02 Aspirin (Aspirin) 81 mg DAILY PO Last administered on 12/16/18 09:14; Admin Dose 81 MG; Start 11/29/18 at 09:00 Famotidine (Pepcid) 20 mg DAILY PO Last administered on 12/16/18 09:14; Admin Dose 20 MG; Start 11/29/18 at 09:00 Senna/Docusate Sodium (Senokot-S) 1 tab BID PRN PO constipation Last administered on 12/09/18 08:07; Admin Dose 1 TAB; Start 11/29/18 at 08:30 Lisinopril (Zestril) 2.5 mg DAILY PO Last administered on 12/16/18 09:15; Admin Dose 2.5 MG; Start 12/03/18 at 09:00 Furosemide (Lasix) 20 mg DAILY@0600 PO Last administered on 12/16/18 06:12; Admin Dose 20 MG; Start 12/04/18 at 10:30 Insulin Aspart (Novolog Insulin Pen) NOVOLOG *MODERATE* ALGORITHM WITH MEALS BEDTIME SC Last administered on 12/14/18 17:26; Admin Dose 6 UNIT; Start 12/08/18 at 21:00 Insulin Glargine (Lantus) 35 units DAILY@0800 SC Last administered on 12/16/18 09:19; Admin Dose 35 UNITS; Start 12/11/18 at 08:00 Metformin HCl (Glucophage Xr) 500 mg WITH BREAKFAST DINNE PO Last administered on 12/16/18 09:18; Admin Dose 500 MG; Start 12/13/18 at 18:05 Simethicone (Mylicon) 80 mg Q6H PRN PO DISTENSION/GAS/BLOATING; Start 12/13/18 at 17:30 Tramadol HCl (Ultram) 50 mg Q6H PRN PO MODERATE PAIN LEVEL 4-6 Last administered on 12/15/18at 21:26; Admin Dose 50 MG; Start 12/14/18 at 17:00 Meropenem/Sodium Chloride 50 ml @ 100 mls/hr Q8 IVPB Last administered on 12/16/18at 06:10; Admin Dose 100 MLS/HR; Start 12/15/18 at 12:00 Lactobacillus Acidophilus/ Rhamnosus (Culturelle) 1 cap BID PO Last administered on 12/16/18at 09:14; Admin Dose 1 CAP; Start 12/15/18 at 23:30 Amoxicillin (Amoxicillin) 500 mg Q8 PO ; Start 12/16/18 at 14:00 VTE Prophylaxis Risk score (from [facility])>0 risk: 8 SCD applied (from [facility]): No SCD contraindication: other Lines/Catheters IV Catheter Type: Vora in Place: No Assessment/Plan Hospital Course Subjective Patient doing well Objective Physical exam General: Patient is laying in bed responding to questions appropriately Mentation: Patient is alert and oriented Head: Normocephalic atraumatic Eyes: EOMI, pupils reactive to light Neck: Supple, nontender, midline Respiratory: Coarse to auscultation bilaterally Cardiovascular: regular rate, no obvious murmurs Gastrointestinal: non-tender to palpation, bowel sounds heard. Neurological: Moves all extremities spontaneously Skin: No new skin lesions, surgical site bandaged, CDI Assessment/Plan Assessment/Plan 1. Drainage from surgical site and groin area- stable - continue with wound vac with dressing changes twice a week - CM on board and arranging for wound vac changes once approved for full scope medical 2. Groin wound infection, enterococcus and Coag neg staph - wound vac in place per Vasc recommendations - ID on board for antibiotic recommendations and will continue current treatment. Once insurance approved, will need to see if patient able to afford Zyvox prior to discharge - vascular planning additional surgery this 3. 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 - Continue local wound care - Podiatry on board and appreciate consultation. no further procedures scheduled at this time. will need to follow up as outpatient 4. Left frontal CVA - Neurology on board and appreciate recommendations - continue on aspirin and Plavix and statin 5. left-sided internal carotid artery stenosis - 25% per CT angiogram, continue aspirin, statin, Plavix per vascular surgeon 6. Acute hypoxic respiratory failure-resolved - doing well on room air - Pulmonology consultation appreciated 7. Cardiac arrest s/p ROSC - Cardiology on board and appreciate recommendations - ECHO with preserved EF 8. Severe peripheral vascular disease - s/p left femoral endarterectomy, iliofemoral bypass and femoral to posterior tibial bypass done on November 08, 2018 - Vascular surgery consultation appreciated. Continue aspirin and Plavix 9. Diabetes Mellitus - A1c noted - doing well on metformin XR. 10. Acute kidney injury- resolved - nephrology consultation appreciated 11. Essential HTN - Continue home medications at this time as tolerated 12. Peripheral neuropathy - cont. gabapentin 13. HLD - On statin 14. Chronic anemia - Stable H&H. Monitor - no need for transfusions at this time 15. Urinary retention, resolved - Urology on board and appreciate recommendations. - voiding without any issues 16. Disposition -Vascular planning another procedure this to exchange graft. FRANTZ SCHWAB Dec 16, 2018 13:02
[2018-12-16 14:47] VITALS: BP 111/60; PULSE 103; RESP 16
--- NOTE | 2018-12-16 15:23 | CONS ---
Assessment/Plan Assessment/Plan Hospital Course (Demo Recall) Alert feels good had been having diarrhea, stool for C. difficile came back negative. Repeat left groin wound culture growing Klebsiella ESBL and again enterococcus species Abx: meropenem and amoxicillin Physical examination: Well-developed elderly man who is in no distress head atraumatic normocephalic neck is supple chest rise symmetrical breath sounds CTA heart S1-S2, abdomen soft bowel sounds present extremities with left foot dressing intact Assessment: 1. Bacteremia, cw contaminant 2. UTI per ua==> neg cx 3. Status post cardiac arrest/non-ST elevation [place] 4. Status post acute respiratory failure, possibly aspirated 5. Peripheral arterial disease status post left femoral to posterior tibial bypass 11/08/18 6. Diabetes 7. History of left foot second toe amputation Plan: Stable, left groin wound culture growing ESBL and enterococcus, continue abx Consultation Date/Type/Reason Admit Date/Time Nov 04, 2018 at 07:34 Initial Consult Date Type of Consult id Requesting Provider: KARL WOOD MD Date/Time of Note DATE: 12/16/18 TIME: 15:22 Exam/Review of Systems Exam Vitals Vital Signs Date Temp Pulse Resp B/P (MAP) Pulse Ox O2 O2 Flow FiO2 Time Delivery Rate 12/16/18 98.1 103 16 111/60 98 14:47 (77) 12/15/18 Room Air 02:00 Intake and Output 12/15/18 12/15/18 12/16/18 1515:00 23:00 07:00 IntakeIntake Total 1250 ml 1050 ml 1390 ml BalanceBalance 1250 ml 1050 ml 1390 ml Results Result Diagram: 12/13/18 0603 Results 24hrs Laboratory Tests Test 12/15/18 17:18 12/15/18 21:10 12/16/18 08:02 12/16/18 08:04 Bedside Glucose 118 162 69 L 66 L Test 12/16/18 08:57 12/16/18 09:29 12/16/18 12:08 Bedside Glucose 78 144 100 Medications Medication Current Medications Ergocalciferol (Drisdol) 50,000 unit Sa PO Last administered on 12/14/18at 08:55; Admin Dose 50,000 UNIT; Start 11/09/18 at 09:00 Clonidine (Catapres) 0.1 mg Q6H PRN PO SBP>160 Last administered on 11/19/18 03:04; Admin Dose 0.1 MG; Start 11/04/18 at 09:00 IV Flush (NS 3 ml) 3 ml PER PROTOCOL IV ; Start 11/04/18 at 09:00 Ondansetron HCl (Zofran Inj) 4 mg Q6H PRN IV NAUSEA/VOMITING Last administered on 12/15/18at 16:52; Admin Dose 4 MG; Start 11/04/18 at 09:00 Acetaminophen (Tylenol Tab) 650 mg Q6H PRN PO .PAIN 1-3 OR TEMP Last administered on 12/14/18at 00:29; Admin Dose 650 MG; Start 11/04/18 at 09:00 Miscellaneous Information 1 ea NOTE XX ; Start 11/04/18 at 09:00 Glucose (Glutose) 15 gm Q15M PRN PO DECREASED GLUCOSE; Start 11/04/18 at 09:00 Glucose (Glutose) 22.5 gm Q15M PRN PO DECREASED GLUCOSE; Start 11/04/18 at 09:00 Dextrose (D50w Syringe) 25 ml Q15M PRN IV DECREASED GLUCOSE; Start 11/04/18 at 09:00 Dextrose (D50w Syringe) 50 ml Q15M PRN IV DECREASED GLUCOSE; Start 11/04/18 at 09:00 Glucagon (Glucagen) 1 mg Q15M PRN IM DECREASED GLUCOSE; Start 11/04/18 at 09:00 Glucose (Glutose) 15 gm Q15M PRN BUCCAL DECREASED GLUCOSE; Start 11/04/18 at 09:00 Miscellaneous Information Patients own medicat... BID@10,16 XX Last administered on 11/20/18at 16:16; Admin Dose 1 EA; Start 11/04/18 at 16:00 Hydralazine HCl (Apresoline) 10 mg Q4H PRN IV sbp >160 Last administered on 11/20/18at 14:44; Admin Dose 10 MG; Start 11/08/18 at 09:00 Atropine Sulfate (Atropine) 0.5 mg PRN PRN IV SYMPTOMATIC BRADYCARDIA; Start 11/11/18 at 23:00 Heparin Sodium (Porcine) (Heparin (5000 Units/1ml)) 5,000 unit BID SC Last administered on 12/16/18at 09:15; Admin Dose 5,000 UNIT; Start 11/14/18 at 21:00 Bisacodyl (Dulcolax Supp) 10 mg DAILY PRN [place] CONSTIPATION Last administered on 11/14/18 16:43; Admin Dose 10 MG; Start 11/14/18 at 16:30 IV Flush (NS 10 ml) 10 ml PRN PRN IV FLUSH LINE; Start 11/15/18 at 15:30 Gabapentin (Neurontin Liquid) 300 mg BID PO Last administered on 12/16/18 09:22; Admin Dose 300 MG; Start 11/18/18 at 21:00 Ascorbic Acid (Vitamin C) 500 mg DAILY PO Last administered on 12/16/18 09:14; Admin Dose 500 MG; Start 11/20/18 at 09:00 Zinc Sulfate (Zinc Sulfate) 220 mg DAILY PO Last administered on 12/16/18 09:14; Admin Dose 220 MG; Start 11/20/18 at 09:00 Atorvastatin Calcium (Lipitor) 80 mg QHS PO Last administered on 12/15/18 21:12; Admin Dose 80 MG; Start 11/19/18 at 21:00 Lorazepam (Ativan) 0.5 mg Q6H PRN IV anxiety/agitation Last administered on 11/22/18 19:32; Admin Dose 0.5 MG; Start 11/22/18 at 11:00 Clopidogrel Bisulfate (plaVIX) 75 mg DAILY PO Last administered on 12/16/18 09:14; Admin Dose 75 MG; Start 11/23/18 at 09:00 Haloperidol (Haldol) 5 mg Q12H PRN IM agitation Last administered on 11/22/18 19:44; Admin Dose 5 MG; Start 11/22/18 at 14:30 Quetiapine Fumarate (Seroquel) 25 mg QHS PO Last administered on 12/15/18 21:12; Admin Dose 25 MG; Start 11/26/18 at 21:00 Polyethylene Glycol (Miralax) 17 gm DAILY PRN PO constipation Last administered on 12/06/18 06:10; Admin Dose 17 GM; Start 11/29/18 at 08:02 Aspirin (Aspirin) 81 mg DAILY PO Last administered on 12/16/18 09:14; Admin Dose 81 MG; Start 11/29/18 at 09:00 Famotidine (Pepcid) 20 mg DAILY PO Last administered on 12/16/18 09:14; Admin Dose 20 MG; Start 11/29/18 at 09:00 Senna/Docusate Sodium (Senokot-S) 1 tab BID PRN PO constipation Last administered on 12/09/18 08:07; Admin Dose 1 TAB; Start 11/29/18 at 08:30 Lisinopril (Zestril) 2.5 mg DAILY PO Last administered on 12/16/18 09:15; Admin Dose 2.5 MG; Start 12/03/18 at 09:00 Furosemide (Lasix) 20 mg DAILY@0600 PO Last administered on 12/16/18 06:12; Admin Dose 20 MG; Start 12/04/18 at 10:30 Insulin Aspart (Novolog Insulin Pen) NOVOLOG *MODERATE* ALGORITHM WITH MEALS BEDTIME SC Last administered on 12/14/18 17:26; Admin Dose 6 UNIT; Start 12/08/18 at 21:00 Insulin Glargine (Lantus) 35 units DAILY@0800 SC Last administered on 12/16/18 09:19; Admin Dose 35 UNITS; Start 12/11/18 at 08:00 Metformin HCl (Glucophage Xr) 500 mg WITH BREAKFAST DINNE PO Last administered on 12/16/18 09:18; Admin Dose 500 MG; Start 12/13/18 at 18:05 Simethicone (Mylicon) 80 mg Q6H PRN PO DISTENSION/GAS/BLOATING; Start 12/13/18 at 17:30 Tramadol HCl (Ultram) 50 mg Q6H PRN PO MODERATE PAIN LEVEL 4-6 Last administered on 12/15/18 21:26; Admin Dose 50 MG; Start 12/14/18 at 17:00 Meropenem/Sodium Chloride 50 ml @ 100 mls/hr Q8 IVPB Last administered on 12/16/18 13:53; Admin Dose 100 MLS/HR; Start 12/15/18 at 12:00 Lactobacillus Acidophilus/ Rhamnosus (Culturelle) 1 cap BID PO Last administered on 12/16/18 09:14; Admin Dose 1 CAP; Start 12/15/18 at 23:30 Amoxicillin (Amoxicillin) 500 mg Q8 PO ; Start 12/16/18 at 14:00 HERRERA MURILLO NP 29, 2019 15:23
[2018-12-16] MEDS: AMOXICILLIN 500 MG CAP PO SCH ×2 (16:03→21:45)
[2018-12-16 20:00] VITALS: BP 139/66; PULSE 115; RESP 18
[2018-12-16] MEDS: ATORVASTATIN 80 MG TAB PO SCH (20:23)
[2018-12-16] MEDS: QUETIAPINE 25 MG TAB PO SCH (20:24)
[2018-12-16] MEDS: traMADol 50 MG TAB PO PRN (20:24)
[2018-12-17] VITALS (8 sets, daily range): BP systolic 75–162; BP diastolic 47–85; PULSE 69–122; RESP 15–18
[2018-12-17] MEDS: MEROPENEM 1 GM/50ML(PMX) 50 ML IVPB SCH ×3 (05:33→21:44)
[2018-12-17] MEDS: AMOXICILLIN 500 MG CAP PO SCH ×2 (05:33→13:48)
[2018-12-17] MEDS: FUROSEMIDE 20 MG TAB PO SCH (05:33)
[2018-12-17] MEDS: INSULIN ASPART [NOVOLOG] 3 ML PEN SC SCH ×4 (08:00→21:02)
[2018-12-17] MEDS: CLOPIDOGREL 75 MG TAB PO SCH (08:11)
[2018-12-17] MEDS: FAMOTIDINE 20 MG TAB PO SCH (08:11)
[2018-12-17] MEDS: metFORMIN (XR) 500 MG TAB PO SCH (08:11)
[2018-12-17] MEDS: ZINC SULFATE 220 MG CAP PO SCH (08:13)
[2018-12-17] MEDS: LACTOBACILLUS RHAMNOSUS CAP PO SCH ×2 (08:13→20:59)
[2018-12-17] MEDS: ASCORBIC ACID 500 MG TAB PO SCH (08:13)
[2018-12-17] MEDS: GABAPENTIN (50 MG/ML PO SYG) PO SCH ×2 (08:13→21:03)
[2018-12-17] MEDS: INSULIN GLARGINE [LANTus] (100 UNITS/ML) SYG SC SCH (08:13)
[2018-12-17] MEDS: ASPIRIN 81 MG TAB PO SCH (08:13)
[2018-12-17] MEDS: HEPARIN 5,000 UNIT/1 ML VIAL SC SCH ×2 (08:14→21:03)
[2018-12-17] MEDS: LISINOPRIL 5 MG TAB PO SCH (08:14)
--- NOTE | 2018-12-17 10:50 | CONS ---
Assessment/Plan Assessment/Plan Hospital Course (Demo Recall) 1. Preoperative evaluation prior to possible need for peripheral revascularization surgery.-neg trop x 3 and NL EF by echo with no sig valve abnl - s/p decomp[ensation and CODE Blue - pt was rossana last night, now in sinus -now extubated., more alert, Better overall. 2. Peripheral arterial disease with nonhealing gangrenous changes in left toe ulceration - post op now. Treated. Post op. Site looks well. No edema. Con't to improve. 3. Hypertension, under reasonable control on current medications. NOW stable. Will allow fpr now. BETTER now. Controlled. 4. Dyslipidemia. 5. Diabetes mellitus- con't to keep euglycemic - on meds. Euglycemic now. On meds. 6. s/p cardiopulmonary arrest - con't resp Rx - pulmonary follows - reasonable saturation now Now in sinus. 7. Bradycardic intermittent by tele - now back to sinus - will monitor - dopa gtt if sustained rossana. Now stable. NO indication for pacer now - HR well maintained now. 8. Positive troponin after arrest-? secondary to or primary to arrest - no intervention planned now. 9. Anemia - H/H stableat 11. - no bleeding now, Stable. 10. AMS - will check ECHO r/o large veg per ID rec - ECHO showed no obvious vegetation. On anti-bx now. Con't anti-Bx. Consultation Date/Type/Reason Admit Date/Time Nov 04, 2018 at 07:34 Initial Consult Date 11/11/18 Requesting Provider: KARL WOOD MD Date/Time of Note DATE: 12/17/18 TIME: 10:50 24 HR Interval Summary Free Text/Dictation Pt in the bathroom, not able ti examine - VS reviewed Exam/Review of Systems Exam Vitals Vital Signs Date Temp Pulse Resp B/P (MAP) Pulse Ox O2 O2 Flow FiO2 Time Delivery Rate 12/17/18 97.8 122 16 75/48 (57) 99 Room Air 08:14 Intake and Output 12/16/18 12/16/18 12/17/18 1515:00 23:00 07:00 IntakeIntake Total 450 ml 1450 ml 770 ml OutputOutput Total 0 ml 50 ml BalanceBalance 450 ml 1450 ml 720 ml Results Result Diagram: 12/17/18 0448 12/17/18 0448 Results 24hrs Laboratory Tests Test 12/16/18 12:08 12/16/18 17:18 12/16/18 20:20 12/17/18 02:16 Bedside Glucose 100 131 200 74 Test 12/17/18 04:48 12/17/18 06:55 12/17/18 07:10 12/17/18 07:25 White Blood Count 5.9 Red Blood Count 3.55 L Hemoglobin 10.7 L Hematocrit 32.6 L Mean Corpuscular 91.8 Volume Mean Corpuscular 30.1 Hemoglobin Mean Corpuscular 32.8 Hemoglobin Concent Red Cell 14.2 Distribution Width Platelet Count 204 Mean Platelet Volume 9.8 Immature 0.200 Granulocytes % Neutrophils % 45.3 Lymphocytes % 37.7 Monocytes % 12.8 H Eosinophils % 3.1 Basophils % 0.9 Nucleated Red Blood 0.0 Cells % Immature 0.010 Granulocytes # Neutrophils # 2.7 Lymphocytes # 2.2 Monocytes # 0.8 Eosinophils # 0.2 Basophils # 0.1 Nucleated Red Blood 0.0 Cells # Sodium Level 137 Potassium Level 4.9 Chloride Level 105 Carbon Dioxide Level 23 Anion Gap 9 Blood Urea Nitrogen 24 H Creatinine 0.84 Est Glomerular Filtrat Rate mL/min Glucose Level 47 *L Calcium Level 9.0 Phosphorus Level 3.5 Magnesium Level 1.7 Bedside Glucose 59 L 70 97 Test 12/17/18 07:41 Bedside Glucose 126 Medications Medication Current Medications Ergocalciferol (Drisdol) 50,000 unit Sa PO Last administered on 12/14/18at 08:55; Admin Dose 50,000 UNIT; Start 11/09/18 at 09:00 Clonidine (Catapres) 0.1 mg Q6H PRN PO SBP>160 Last administered on 11/19/18at 03:04; Admin Dose 0.1 MG; Start 11/04/18 at 09:00 IV Flush (NS 3 ml) 3 ml PER PROTOCOL IV ; Start 11/04/18 at 09:00 Ondansetron HCl (Zofran Inj) 4 mg Q6H PRN IV NAUSEA/VOMITING Last administered on 12/15/18at 16:52; Admin Dose 4 MG; Start 11/04/18 at 09:00 Acetaminophen (Tylenol Tab) 650 mg Q6H PRN PO .PAIN 1-3 OR TEMP Last administered on 12/14/18at 00:29; Admin Dose 650 MG; Start 11/04/18 at 09:00 Miscellaneous Information 1 ea NOTE XX ; Start 11/04/18 at 09:00 Glucose (Glutose) 15 gm Q15M PRN PO DECREASED GLUCOSE Last administered on 12/17/18at 06:56; Admin Dose 15 GM; Start 11/04/18 at 09:00 Glucose (Glutose) 22.5 gm Q15M PRN PO DECREASED GLUCOSE; Start 11/04/18 at 09:00 Dextrose (D50w Syringe) 25 ml Q15M PRN IV DECREASED GLUCOSE; Start 11/04/18 at 09:00 Dextrose (D50w Syringe) 50 ml Q15M PRN IV DECREASED GLUCOSE; Start 11/04/18 at 09:00 Glucagon (Glucagen) 1 mg Q15M PRN IM DECREASED GLUCOSE; Start 11/04/18 at 09:00 Glucose (Glutose) 15 gm Q15M PRN BUCCAL DECREASED GLUCOSE; Start 11/04/18 at 09:00 Miscellaneous Information Patients own medicat... BID@,16 XX Last administered on 11/20/18at 16:16; Admin Dose 1 EA; Start 11/04/18 at 16:00 Hydralazine HCl (Apresoline) 10 mg Q4H PRN IV sbp >160 Last administered on 11/20at 14:44; Admin Dose 10 MG; Start 11/08/18 at 09:00 Atropine Sulfate (Atropine) 0.5 mg PRN PRN IV SYMPTOMATIC BRADYCARDIA; Start 11/11/18 at 23:00 Heparin Sodium (Porcine) (Heparin (5000 Units/1ml)) 5,000 unit BID SC Last administered on 12/17/18at 08:14; Admin Dose 5,000 UNIT; Start 11/14/18 at 21:00 Bisacodyl (Dulcolax Supp) 10 mg DAILY PRN [place] CONSTIPATION Last administered on 11/14/18at 16:43; Admin Dose 10 MG; Start 11/14/18 at 16:30 IV Flush (NS 10 ml) 10 ml PRN PRN IV FLUSH LINE; Start 11/15/18 at 15:30 Gabapentin (Neurontin Liquid) 300 mg BID PO Last administered on 12/17/18at 08: 13; Admin Dose 300 MG; Start 11/18/18 at 21:00 Ascorbic Acid (Vitamin C) 500 mg DAILY PO Last administered on 12/17/18 08:13; Admin Dose 500 MG; Start 11/20/18 at 09:00 Zinc Sulfate (Zinc Sulfate) 220 mg DAILY PO Last administered on 12/17/18 08:13; Admin Dose 220 MG; Start 11/20/18 at 09:00 Atorvastatin Calcium (Lipitor) 80 mg QHS PO Last administered on 12/16/18 20:23; Admin Dose 80 MG; Start 11/19/18 at 21:00 Lorazepam (Ativan) 0.5 mg Q6H PRN IV anxiety/agitation Last administered on 11/22/18 19:32; Admin Dose 0.5 MG; Start 11/22/18 at 11:00 Clopidogrel Bisulfate (plaVIX) 75 mg DAILY PO Last administered on 12/17/18 08:11; Admin Dose 75 MG; Start 11/23/18 at 09:00 Haloperidol (Haldol) 5 mg Q12H PRN IM agitation Last administered on 11/22/18 19:44; Admin Dose 5 MG; Start 11/22/18 at 14:30 Quetiapine Fumarate (Seroquel) 25 mg QHS PO Last administered on 12/16/18 20:24; Admin Dose 25 MG; Start 11/26/18 at 21:00 Polyethylene Glycol (Miralax) 17 gm DAILY PRN PO constipation Last administered on 12/06/18 06:10; Admin Dose 17 GM; Start 11/29/18 at 08:02 Aspirin (Aspirin) 81 mg DAILY PO Last administered on 12/17/18 08:13; Admin Dose 81 MG; Start 11/29/18 at 09:00 Famotidine (Pepcid) 20 mg DAILY PO Last administered on 12/17/18 08:11; Admin Dose 20 MG; Start 11/29/18 at 09:00 Senna/Docusate Sodium (Senokot-S) 1 tab BID PRN PO constipation Last administered on 12/09/18 08:07; Admin Dose 1 TAB; Start 11/29/18 at 08:30 Lisinopril (Zestril) 2.5 mg DAILY PO Last administered on 12/16/18 09:15; Admin Dose 2.5 MG; Start 12/03/18 at 09:00 Furosemide (Lasix) 20 mg DAILY@0600 PO Last administered on 12/17/18 05:33; Admin Dose 20 MG; Start 12/04/18 at 10:30 Insulin Aspart (Novolog Insulin Pen) NOVOLOG *MODERATE* ALGORITHM WITH MEALS BEDTIME SC Last administered on 12/16/18 20:26; Admin Dose 1 UNIT; Start 12/08/18 at 21:00 Insulin Glargine (Lantus) 35 units DAILY@0800 SC Last administered on 12/17/18 08:13; Admin Dose 35 UNITS; Start 12/11/18 at 08:00 Metformin HCl (Glucophage Xr) 500 mg WITH BREAKFAST DINNE PO Last administered on 12/17/18 08:11; Admin Dose 500 MG; Start 12/13/18 at 18:05 Simethicone (Mylicon) 80 mg Q6H PRN PO DISTENSION/GAS/BLOATING; Start 12/13/18 at 17:30 Tramadol HCl (Ultram) 50 mg Q6H PRN PO MODERATE PAIN LEVEL 4-6 Last administ ered on 12/16/18 20:24; Admin Dose 50 MG; Start 12/14/18 at 17:00 Meropenem/Sodium Chloride 50 ml @ 100 mls/hr Q8 IVPB Last administered on 12/17/18 05:33; Admin Dose 100 MLS/HR; Start 12/15/18 at 12:00 Lactobacillus Acidophilus/ Rhamnosus (Culturelle) 1 cap BID PO Last administered on 12/17/18 08:13; Admin Dose 1 CAP; Start 12/15/18 at 23:30 Amoxicillin (Amoxicillin) 500 mg Q8 PO Last administered on 12/17/18 05:33; Admin Dose 500 MG; Start 12/16/18 at 14:00 RAJI BROWNE MD Dec 17, 2018 10:50
[2018-12-17] MEDS ORDERED: LOPERAMIDE 2 MG CAP PO PRN ×2 (13:30→15:00)
--- NOTE | 2018-12-17 13:37 | CONS ---
Assessment/Plan Assessment/Plan Hospital Course (Demo Recall) Alert feels good no fevers, on/off loose stools Micro: Repeat left groin wound culture growing Klebsiella ESBL and again enterococcus species Abx: Meropenem and Amoxicillin Physical examination: Well-developed elderly man who is in no distress head atraumatic normocephalic neck is supple chest rise symmetrical breath sounds CTA heart S1-S2, abdomen soft bowel sounds present extremities with left foot dressing intact Assessment: 1. Bacteremia, cw contaminant 2. UTI per ua==> neg cx 3. Status post cardiac arrest/non-ST elevation [place] 4. Status post acute respiratory failure, possibly aspirated 5. Peripheral arterial disease status post left femoral to posterior tibial bypass 11/08/18 6. Diabetes 7. History of left foot second toe amputation Plan: Stable, left groin wound culture growing ESBL and enterococcus, continue abx, consider to add Imodium or Lomotil as C dif neg Consultation Date/Type/Reason Admit Date/Time Nov 04, 2018 at 07:34 Initial Consult Date Type of Consult id Requesting Provider: KARL WOOD MD Date/Time of Note DATE: 12/17/18 TIME: 13:36 Exam/Review of Systems Exam Vitals Vital Signs Date Temp Pulse Resp B/P (MAP) Pulse Ox O2 O2 Flow FiO2 Time Delivery Rate 12/17/18 125/72 09:15 (89) 12/17/18 97.8 122 16 99 Room Air 08:14 Intake and Output 12/16/18 12/16/18 12/17/18 1515:00 23:00 07:00 IntakeIntake Total 450 ml 1450 ml 770 ml OutputOutput Total 0 ml 50 ml BalanceBalance 450 ml 1450 ml 720 ml Results Result Diagram: 12/17/18 0448 12/17/18 0448 Results 24hrs Laboratory Tests Test 12/16/18 17:18 12/16/18 20:20 12/17/18 02:16 12/17/18 04:48 Bedside Glucose 131 200 74 White Blood Count 5.9 Red Blood Count 3.55 L Hemoglobin 10.7 L Hematocrit 32.6 L Mean Corpuscular 91.8 Volume Mean Corpuscular 30.1 Hemoglobin Mean Corpuscular 32.8 Hemoglobin Concent Red Cell 14.2 Distribution Width Platelet Count 204 Mean Platelet Volume 9.8 Immature 0.200 Granulocytes % Neutrophils % 45.3 Lymphocytes % 37.7 Monocytes % 12.8 H Eosinophils % 3.1 Basophils % 0.9 Nucleated Red Blood 0.0 Cells % Immature 0.010 Granulocytes # Neutrophils # 2.7 Lymphocytes # 2.2 Monocytes # 0.8 Eosinophils # 0.2 Basophils # 0.1 Nucleated Red Blood 0.0 Cells # Sodium Level 137 Potassium Level 4.9 Chloride Level 105 Carbon Dioxide Level 23 Anion Gap 9 Blood Urea Nitrogen 24 H Creatinine 0.84 Est Glomerular Filtrat Rate mL/min Glucose Level 47 *L Calcium Level 9.0 Phosphorus Level 3.5 Magnesium Level 1.7 Test 12/17/18 06:55 12/17/18 07:10 12/17/18 07:25 12/17/18 07:41 Bedside Glucose 59 L 70 97 126 Test 12/17/18 12:06 Bedside Glucose 155 Medications Medication Current Medications Ergocalciferol (Drisdol) 50,000 unit Sa PO Last administered on 12/14/18at 08:55; Admin Dose 50,000 UNIT; Start 11/09/18 at 09:00 Clonidine (Catapres) 0.1 mg Q6H PRN PO SBP>160 Last administered on 11/19/18at 03:04; Admin Dose 0.1 MG; Start 11/04/18 at 09:00 IV Flush (NS 3 ml) 3 ml PER PROTOCOL IV ; Start 11/04/18 at 09:00 Ondansetron HCl (Zofran Inj) 4 mg Q6H PRN IV NAUSEA/VOMITING Last administered on 12/15/18at 16:52; Admin Dose 4 MG; Start 11/04/18 at 09:00 Acetaminophen (Tylenol Tab) 650 mg Q6H PRN PO .PAIN 1-3 OR TEMP Last administer ed on 12/14/18at 00:29; Admin Dose 650 MG; Start 11/04/18 at 09:00 Miscellaneous Information 1 ea NOTE XX ; Start 11/04/18 at 09:00 Glucose (Glutose) 15 gm Q15M PRN PO DECREASED GLUCOSE Last administered on 12/17/18at 06:56; Admin Dose 15 GM; Start 11/04/18 at 09:00 Glucose (Glutose) 22.5 gm Q15M PRN PO DECREASED GLUCOSE; Start 11/04/18 at 09:00 Dextrose (D50w Syringe) 25 ml Q15M PRN IV DECREASED GLUCOSE; Start 11/04/18 at 09:00 Dextrose (D50w Syringe) 50 ml Q15M PRN IV DECREASED GLUCOSE; Start 11/04/18 at 09:00 Glucagon (Glucagen) 1 mg Q15M PRN IM DECREASED GLUCOSE; Start 11/04/18 at 09:00 Glucose (Glutose) 15 gm Q15M PRN BUCCAL DECREASED GLUCOSE; Start 11/04/18 at 09:00 Miscellaneous Information Patients own medicat... BID@10,16 XX Last administered on 11/20/18 16:16; Admin Dose 1 EA; Start 11/04/18 at 16:00 Hydralazine HCl (Apresoline) 10 mg Q4H PRN IV sbp >160 Last administered on 11/20/18 14:44; Admin Dose 10 MG; Start 11/08/18 at 09:00 Atropine Sulfate (Atropine) 0.5 mg PRN PRN IV SYMPTOMATIC BRADYCARDIA; Start 11/11/18 at 23:00 Heparin Sodium (Porcine) (Heparin (5000 Units/1ml)) 5,000 unit BID SC Last administered on 12/17/18 08:14; Admin Dose 5,000 UNIT; Start 11/14/18 at 21:00 Bisacodyl (Dulcolax Supp) 10 mg DAILY PRN [place] CONSTIPATION Last administered on 11/14/18 16:43; Admin Dose 10 MG; Start 11/14/18 at 16:30 IV Flush (NS 10 ml) 10 ml PRN PRN IV FLUSH LINE; Start 11/15/18 at 15:30 Gabapentin (Neurontin Liquid) 300 mg BID PO Last administered on 12/17/18 08:13; Admin Dose 300 MG; Start 11/18/18 at 21:00 Ascorbic Acid (Vitamin C) 500 mg DAILY PO Last administered on 12/17/18 08:13; Admin Dose 500 MG; Start 11/20/18 at 09:00 Zinc Sulfate (Zinc Sulfate) 220 mg DAILY PO Last administered on 12/17/18 08:13; Admin Dose 220 MG; Start 11/20/18 at 09:00 Atorvastatin Calcium (Lipitor) 80 mg QHS PO Last administered on 12/16/18 20:23; Admin Dose 80 MG; Start 11/19/18 at 21:00 Lorazepam (Ativan) 0.5 mg Q6H PRN IV anxiety/agitation Last administered on 11/22/18 19:32; Admin Dose 0.5 MG; Start 11/22/18 at 11:00 Clopidogrel Bisulfate (plaVIX) 75 mg DAILY PO Last administered on 12/17/18 08:11; Admin Dose 75 MG; Start 11/23/18 at 09:00 Haloperidol (Haldol) 5 mg Q12H PRN IM agitation Last administered on 11/22/18 19:44; Admin Dose 5 MG; Start 11/22/18 at 14:30 Quetiapine Fumarate (Seroquel) 25 mg QHS PO Last administered on 12/16/18 20:24; Admin Dose 25 MG; Start 11/26/18 at 21:00 Polyethylene Glycol (Miralax) 17 gm DAILY PRN PO constipation Last administered on 12/06/18 06:10; Admin Dose 17 GM; Start 11/29/18 at 08:02 Aspirin (Aspirin) 81 mg DAILY PO Last administered on 12/17/18 08:13; Admin Dose 81 MG; Start 11/29/18 at 09:00 Famotidine (Pepcid) 20 mg DAILY PO Last administered on 12/17/18 08:11; Admin Dose 20 MG; Start 11/29/18 at 09:00 Senna/Docusate Sodium (Senokot-S) 1 tab BID PRN PO constipation Last administered on 12/09/18 08:07; Admin Dose 1 TAB; Start 11/29/18 at 08:30 Lisinopril (Zestril) 2.5 mg DAILY PO Last administered on 12/16/18 09:15; Admin Dose 2.5 MG; Start 12/03/18 at 09:00 Furosemide (Lasix) 20 mg DAILY@0600 PO Last administered on 12/17/18 05:33; Admin Dose 20 MG; Start 12/04/18 at 10:30 Insulin Aspart (Novolog Insulin Pen) NOVOLOG *MODERATE* ALGORITHM WITH MEALS BEDTIME SC Last administered on 12/17/18 12:07; Admin Dose 2 UNIT; Start 12/08/18 at 21:00 Simethicone (Mylicon) 80 mg Q6H PRN PO DISTENSION/GAS/BLOATING; Start 12/13/18 at 17:30 Tramadol HCl (Ultram) 50 mg Q6H PRN PO MODERATE PAIN LEVEL 4-6 Last administered on 12/16/18at 20:24; Admin Dose 50 MG; Start 12/14/18 at 17:00 Meropenem/Sodium Chloride 50 ml @ 100 mls/hr Q8 IVPB Last administered on 12/17/18at 05:33; Admin Dose 100 MLS/HR; Start 12/15/18 at 12:00 Lactobacillus Acidophilus/ Rhamnosus (Culturelle) 1 cap BID PO Last administered on 12/17/18at 08:13; Admin Dose 1 CAP; Start 12/15/18 at 23:30 Amoxicillin (Amoxicillin) 500 mg Q8 PO Last administered on 12/17/18at 05:33; Admin Dose 500 MG; Start 12/16/18 at 14:00 Insulin Glargine (Lantus) 20 units DAILY@0800 SC ; Start 12/18/18 at 08:00 Metformin HCl (Glucophage Xr) 500 mg WITH BREAKFAST PO ; Start 12/18/18 at 08:00 Loperamide HCl (Imodium Cap) 2 mg DAILY PRN PO DIARRHEA; Start 12/17/18 at 13:30 HERRERA MURILLO NP Dec 17, 2018 13:37
--- NOTE | 2018-12-17 14:47 | PN ---
Date/Time of Note Date/Time of Note DATE: 12/17/18 TIME: 14:47 Objective Vitals Vital Signs Date Temp Pulse Resp B/P (MAP) Pulse Ox O2 O2 Flow FiO2 Time Delivery Rate 12/17/18 98.1 110 15 156/82 97 Room Air 14:26 (106) Intake and Output 12/16/18 12/16/18 12/17/18 1515:00 23:00 07:00 IntakeIntake Total 450 ml 1450 ml 770 ml OutputOutput Total 0 ml 50 ml BalanceBalance 450 ml 1450 ml 720 ml Results Result Diagram: 12/17/188 12/17/18447 Medications Medications Current Medications Ergocalciferol (Drisdol) 50,000 unit Sa PO Last administered on 12/14/18at 08:55; Admin Dose 50,000 UNIT; Start 11/09/18 at 09:00 Clonidine (Catapres) 0.1 mg Q6H PRN PO SBP>160 Last administered on 11/19/18at 03:04; Admin Dose 0.1 MG; Start 11/04/18 at 09:00 IV Flush (NS 3 ml) 3 ml PER PROTOCOL IV ; Start 11/04/18 at 09:00 Ondansetron HCl (Zofran Inj) 4 mg Q6H PRN IV NAUSEA/VOMITING Last administered on 12/15/18at 16:52; Admin Dose 4 MG; Start 11/04/18 at 09:00 Acetaminophen (Tylenol Tab) 650 mg Q6H PRN PO .PAIN 1-3 OR TEMP Last administered on 12/14/18at 00:29; Admin Dose 650 MG; Start 11/04/18 at 09:00 Miscellaneous Information 1 ea NOTE XX ; Start 11/04/18 at 09:00 Glucose (Glutose) 15 gm Q15M PRN PO DECREASED GLUCOSE Last administered on 12/17/18at 06:56; Admin Dose 15 GM; Start 11/04/18 at 09:00 Glucose (Glutose) 22.5 gm Q15M PRN PO DECREASED GLUCOSE; Start 11/04/18 at 09:00 Dextrose (D50w Syringe) 25 ml Q15M PRN IV DECREASED GLUCOSE; Start 11/04/18 at 09:00 Dextrose (D50w Syringe) 50 ml Q15M PRN IV DECREASED GLUCOSE; Start 11/04/18 at 09:00 Glucagon (Glucagen) 1 mg Q15M PRN IM DECREASED GLUCOSE; Start 11/04/18 at 09:00 Glucose (Glutose) 15 gm Q15M PRN BUCCAL DECREASED GLUCOSE; Start 11/04/18 at 09:00 Miscellaneous Information Patients own medicat... BID@10,16 XX Last administered on 11/20/18at 16:16; Admin Dose 1 EA; Start 11/04/18 at 16:00 Hydralazine HCl (Apresoline) 10 mg Q4H PRN IV sbp >160 Last administered on 11/20/18 14:44; Admin Dose 10 MG; Start 11/08/18 at 09:00 Atropine Sulfate (Atropine) 0.5 mg PRN PRN IV SYMPTOMATIC BRADYCARDIA; Start 11/11/18 at 23:00 Heparin Sodium (Porcine) (Heparin (5000 Units/1ml)) 5,000 unit BID SC Last administered on 12/17/18 08:14; Admin Dose 5,000 UNIT; Start 11/14/18 at 21:00 Bisacodyl (Dulcolax Supp) 10 mg DAILY PRN [place] CONSTIPATION Last administered on 11/14/18 16:43; Admin Dose 10 MG; Start 11/14/18 at 16:30 IV Flush (NS 10 ml) 10 ml PRN PRN IV FLUSH LINE; Start 11/15/18 at 15:30 Gabapentin (Neurontin Liquid) 300 mg BID PO Last administered on 12/17/18 08:13; Admin Dose 300 MG; Start 11/18/18 at 21:00 Ascorbic Acid (Vitamin C) 500 mg DAILY PO Last administered on 12/17/18 08:13; Admin Dose 500 MG; Start 11/20/18 at 09:00 Zinc Sulfate (Zinc Sulfate) 220 mg DAILY PO Last administered on 12/17/18 08:13; Admin Dose 220 MG; Start 11/20/18 at 09:00 Atorvastatin Calcium (Lipitor) 80 mg QHS PO Last administered on 12/16/18 20:23; Admin Dose 80 MG; Start 11/19/18 at 21:00 Lorazepam (Ativan) 0.5 mg Q6H PRN IV anxiety/agitation Last administered on 11/22/18 19:32; Admin Dose 0.5 MG; Start 11/22/18 at 11:00 Clopidogrel Bisulfate (plaVIX) 75 mg DAILY PO Last administered on 12/17/18 08:11; Admin Dose 75 MG; Start 11/23/18 at 09:00 Haloperidol (Haldol) 5 mg Q12H PRN IM agitation Last administered on 11/22/18 19:44; Admin Dose 5 MG; Start 11/22/18 at 14:30 Quetiapine Fumarate (Seroquel) 25 mg QHS PO Last administered on 12/16/18 20:24; Admin Dose 25 MG; Start 11/26/18 at 21:00 Polyethylene Glycol (Miralax) 17 gm DAILY PRN PO constipation Last administered on 12/06/18 06:10; Admin Dose 17 GM; Start 11/29/18 at 08:02 Aspirin (Aspirin) 81 mg DAILY PO Last administered on 12/17/18 08:13; Admin Dose 81 MG; Start 11/29/18 at 09:00 Famotidine (Pepcid) 20 mg DAILY PO Last administered on 12/17/18 08:11; Admin Dose 20 MG; Start 11/29/18 at 09:00 Senna/Docusate Sodium (Senokot-S) 1 tab BID PRN PO constipation Last administered on 12/09/18 08:07; Admin Dose 1 TAB; Start 11/29/18 at 08:30 Lisinopril (Zestril) 2.5 mg DAILY PO Last administered on 12/16/18 09:15; Admin Dose 2.5 MG; Start 12/03/18 at 09:00 Furosemide (Lasix) 20 mg DAILY@0600 PO Last administered on 12/17/18 05:33; Admin Dose 20 MG; Start 12/04/18 at 10:30 Insulin Aspart (Novolog Insulin Pen) NOVOLOG *MODERATE* ALGORITHM WITH MEALS BEDTIME SC Last administered on 12/17/18 12:07; Admin Dose 2 UNIT; Start 12/08/18 at 21:00 Simethicone (Mylicon) 80 mg Q6H PRN PO DISTENSION/GAS/BLOATING; Start 12/13/18 at 17:30 Tramadol HCl (Ultram) 50 mg Q6H PRN PO MODERATE PAIN LEVEL 4-6 Last administered on 12/16/18 20:24; Admin Dose 50 MG; Start 12/14/18 at 17:00 Meropenem/Sodium Chloride 50 ml @ 100 mls/hr Q8 IVPB Last administered on 13:48; Admin Dose 100 MLS/HR; Start 12/15/18 at 12:00 Lactobacillus Acidophilus/ Rhamnosus (Culturelle) 1 cap BID PO Last administered on 12/17/18 08:13; Admin Dose 1 CAP; Start 12/15/18 at 23:30 Amoxicillin (Amoxicillin) 500 mg Q8 PO Last administered on 12/17/18 13:48; Admin Dose 500 MG; Start 12/16/18 at 14:00 Insulin Glargine (Lantus) 20 units DAILY@0800 SC ; Start 12/18/18 at 08:00 Metformin HCl (Glucophage Xr) 500 mg WITH BREAKFAST PO ; Start 12/18/18 at 08:00 Loperamide HCl (Imodium Cap) 2 mg DAILY PRN PO DIARRHEA Last administered on 12/17/18 13:48; Admin Dose 2 MG; Start 12/17/18 at 13:30 VTE Prophylaxis Risk score (from Ns)>0 risk: 5 SCD applied (from Ns): No SCD contraindication: other Lines/Catheters IV Catheter Type: Vora in Place: No Assessment/Plan Hospital Course Subjective Patient doing well Objective Physical exam General: Patient is laying in bed responding to questions appropriately Mentation: Patient is alert and oriented Head: Normocephalic atraumatic Eyes: EOMI, pupils reactive to light Neck: Supple, nontender, midline Respiratory: Coarse to auscultation bilaterally Cardiovascular: regular rate, no obvious murmurs Gastrointestinal: non-tender to palpation, bowel sounds heard. Neurological: Moves all extremities spontaneously Skin: No new skin lesions, surgical site bandaged, CDI Assessment/Plan Assessment/Plan 1. Drainage from surgical site and groin area- stable - continue with wound vac with dressing changes twice a week - CM on board and arranging for wound vac changes once approved for full scope medical 2. Groin wound infection, enterococcus and Coag neg staph - wound vac in place per Vasc recommendations - ID on board for antibiotic recommendations and will continue current treatment. Once insurance approved, will need to see if patient able to afford Zyvox prior to discharge - vascular planning additional surgery this 3. 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 - Continue local wound care - Podiatry on board and appreciate consultation. no further procedures sched uled at this time. will need to follow up as outpatient 4. Left frontal CVA - Neurology on board and appreciate recommendations - continue on aspirin and Plavix and statin 5. left-sided internal carotid artery stenosis - 25% per CT angiogram, continue aspirin, statin, Plavix per vascular surgeon 6. Acute hypoxic respiratory failure-resolved - doing well on room air - Pulmonology consultation appreciated 7. Cardiac arrest s/p ROSC - Cardiology on board and appreciate recommendations - ECHO with preserved EF 8. Severe peripheral vascular disease - s/p left femoral endarterectomy, iliofemoral bypass and femoral to posterior tibial bypass done on November 08, 2018 - Vascular surgery consultation appreciated. Continue aspirin and Plavix 9. Diabetes Mellitus - A1c noted - doing well on metformin XR. 10. Acute kidney injury- resolved - nephrology consultation appreciated 11. Essential HTN - Continue home medications at this time as tolerated 12. Peripheral neuropathy - cont. gabapentin 13. HLD - On statin 14. Chronic anemia - Stable H&H. Monitor - no need for transfusions at this time 15. Urinary retention, resolved - Urology on board and appreciate recommendations. - voiding without any issues 16. Disposition -Vascular planning another procedure this to exchange graft. FRANTZ SCHWAB Dec 17, 2018 14:47
[2018-12-17] MEDS ORDERED: VANCOMYCIN IV PER PHARMACY XX SCH (15:00)
[2018-12-17] MEDS ORDERED: VANCOMYCIN HCL 1.75 GM in SOD CHLORIDE 0.9% 500 ML IVPB SCH (16:00)
[2018-12-17] MEDS: traMADol 50 MG TAB PO PRN (17:06)
[2018-12-17] MEDS: QUETIAPINE 25 MG TAB PO SCH (20:59)
[2018-12-17] MEDS: ATORVASTATIN 80 MG TAB PO SCH (20:59)
[2018-12-18 02:00] VITALS: BP 150/78; PULSE 90; RESP 18
[2018-12-18] MEDS: FUROSEMIDE 20 MG TAB PO SCH (05:21)
[2018-12-18] MEDS: MEROPENEM 1 GM/50ML(PMX) 50 ML IVPB SCH ×2 (05:21→14:17)
[2018-12-18 08:00] VITALS: BP 110/63; PULSE 122; RESP 14
[2018-12-18] MEDS: INSULIN ASPART [NOVOLOG] 3 ML PEN SC SCH ×4 (08:00→21:49)
[2018-12-18] MEDS ORDERED: INSULIN GLARGINE [LANTus] (100 UNITS/ML) SYG SC SCH (08:00)
[2018-12-18] MEDS ORDERED: metFORMIN (XR) 500 MG TAB PO SCH (08:00)
[2018-12-18] MEDS: FAMOTIDINE 20 MG TAB PO SCH (08:36)
[2018-12-18] MEDS: LACTOBACILLUS RHAMNOSUS CAP PO SCH ×2 (08:36→21:44)
[2018-12-18] MEDS: ASCORBIC ACID 500 MG TAB PO SCH (08:37)
[2018-12-18] MEDS: LISINOPRIL 5 MG TAB PO SCH (08:37)
[2018-12-18] MEDS: ASPIRIN 81 MG TAB PO SCH (08:37)
[2018-12-18] MEDS: ZINC SULFATE 220 MG CAP PO SCH (08:37)
[2018-12-18] MEDS: CLOPIDOGREL 75 MG TAB PO SCH (08:37)
[2018-12-18] MEDS: HEPARIN 5,000 UNIT/1 ML VIAL SC SCH ×2 (08:38→21:46)
[2018-12-18] MEDS: INSULIN GLARGINE [LANTus] (100 UNITS/ML) SYG SC SCH (08:39)
[2018-12-18] MEDS: GABAPENTIN (50 MG/ML PO SYG) PO SCH ×2 (10:31→21:50)
--- NOTE | 2018-12-18 13:41 | CONS ---
Assessment/Plan Assessment/Plan Hospital Course (Demo Recall) Alert, feels good no fevers, no diarrhea Micro: Repeat left groin wound culture growing Klebsiella ESBL and again enterococcus species Abx: Meropenem and Vanco Physical examination: Well-developed elderly man who is in no distress head atraumatic normocephalic neck is supple chest rise symmetrical breath sounds CTA heart S1-S2, abdomen soft bowel sounds present extremities with left foot dressing intact Assessment: 1. Bacteremia, cw contaminant 2. UTI per ua==> neg cx 3. Status post cardiac arrest/non-ST elevation IA 4. Status post acute respiratory failure, possibly aspirated 5. Peripheral arterial disease status post left femoral to posterior tibial bypass 11/08/18 6. Diabetes 7. History of left foot second toe amputation Plan: Remains stable, left groin wound culture growing ESBL and enterococcus, continue abx, wound vac Consultation Date/Type/Reason Admit Date/Time Nov 04, 2018 at 07:34 Initial Consult Date Type of Consult id Requesting Provider: KARL WOOD MD Date/Time of Note DATE: 12/18/18 TIME: 13:40 Exam/Review of Systems Exam Vitals Vital Signs Date Temp Pulse Resp B/P (MAP) Pulse Ox O2 O2 Flow FiO2 Time Delivery Rate 12/18/18 98.0 122 14 110/63 95 08:00 (79) 12/17/18 Room Air 14:26 Intake and Output 12/17/18 12/17/18 12/18/18 1515:00 23:00 07:00 IntakeIntake Total 50 ml 550 ml 350 ml OutputOutput Total 50 ml 50 ml BalanceBalance 50 ml 500 ml 300 ml Results Result Diagram: 12/17/18 0448 12/17/18 0448 Results 24hrs Laboratory Tests Test 12/17/18 17:06 12/17/18 20:58 12/18/18 01:52 12/18/18 08:04 Bedside Glucose 150 224 H 113 89 Test 12/18/18 12:08 Bedside Glucose 192 Medications Medication Current Medications Ergocalciferol (Drisdol) 50,000 unit Sa PO Last administered on 12/14/18at 08:55; Admin Dose 50,000 UNIT; Start 11/09/18 at 09:00 Clonidine (Catapres) 0.1 mg Q6H PRN PO SBP>160 Last administered on 11/19/18 03:04; Admin Dose 0.1 MG; Start 11/04/18 at 09:00 IV Flush (NS 3 ml) 3 ml PER PROTOCOL IV ; Start 11/04/18 at 09:00 Ondansetron HCl (Zofran Inj) 4 mg Q6H PRN IV NAUSEA/VOMITING Last administered on 12/15/18 16:52; Admin Dose 4 MG; Start 11/04/18 at 09:00 Acetaminophen (Tylenol Tab) 650 mg Q6H PRN PO .PAIN 1-3 OR TEMP Last administered on 12/14/18 00:29; Admin Dose 650 MG; Start 11/04/18 at 09:00 Miscellaneous Information 1 ea NOTE XX ; Start 11/04/18 at 09:00 Glucose (Glutose) 15 gm Q15M PRN PO DECREASED GLUCOSE Last administered on 06:56; Admin Dose 15 GM; Start 11/04/18 at 09:00 Glucose (Glutose) 22.5 gm Q15M PRN PO DECREASED GLUCOSE; Start 11/04/18 at 09:00 Dextrose (D50w Syringe) 25 ml Q15M PRN IV DECREASED GLUCOSE; Start 11/04/18 at 09:00 Dextrose (D50w Syringe) 50 ml Q15M PRN IV DECREASED GLUCOSE; Start 11/04/18 at 09:00 Glucagon (Glucagen) 1 mg Q15M PRN IM DECREASED GLUCOSE; Start 11/04/18 at 09:00 Glucose (Glutose) 15 gm Q15M PRN BUCCAL DECREASED GLUCOSE; Start 11/04/18 at 09:00 Miscellaneous Information Patients own medicat... BID@10,16 XX Last administered on 12/18/18at 10:32; Admin Dose 1 EA; Start 11/04/18 at 16:00 Hydralazine HCl (Apresoline) 10 mg Q4H PRN IV sbp >160 Last administered on 11/20 14:44; Admin Dose 10 MG; Start 11/08/18 at 09:00 Atropine Sulfate (Atropine) 0.5 mg PRN PRN IV SYMPTOMATIC BRADYCARDIA; Start 11/11/18 at 23:00 Heparin Sodium (Porcine) (Heparin (5000 Units/1ml)) 5,000 unit BID SC Last administered on 7/31/19at 08:38; Admin Dose 5,000 UNIT; Start 11/14/18 at 21:00 Bisacodyl (Dulcolax Supp) 10 mg DAILY PRN [place] CONSTIPATION Last administered on 11/14/18 16:43; Admin Dose 10 MG; Start 11/14/18 at 16:30 IV Flush (NS 10 ml) 10 ml PRN PRN IV FLUSH LINE; Start 11/15/18 at 15:30 Gabapentin (Neurontin Liquid) 300 mg BID PO Last administered on 12/18/18 10: 31; Admin Dose 300 MG; Start 11/18/18 at 21:00 Ascorbic Acid (Vitamin C) 500 mg DAILY PO Last administered on 12/18/18 08:37; Admin Dose 500 MG; Start 11/20/18 at 09:00 Zinc Sulfate (Zinc Sulfate) 220 mg DAILY PO Last administered on 12/18/18 08:37; Admin Dose 220 MG; Start 11/20/18 at 09:00 Atorvastatin Calcium (Lipitor) 80 mg QHS PO Last administered on 12/17/18 20:59; Admin Dose 80 MG; Start 11/19/18 at 21:00 Lorazepam (Ativan) 0.5 mg Q6H PRN IV anxiety/agitation Last administered on 11/22/18 19:32; Admin Dose 0.5 MG; Start 11/22/18 at 11:00 Clopidogrel Bisulfate (plaVIX) 75 mg DAILY PO Last administered on 12/18/18 08:37; Admin Dose 75 MG; Start 11/23/18 at 09:00 Haloperidol (Haldol) 5 mg Q12H PRN IM agitation Last administered on 11/22/18 19:44; Admin Dose 5 MG; Start 11/22/18 at 14:30 Quetiapine Fumarate (Seroquel) 25 mg QHS PO Last administered on 12/17/18 20:59; Admin Dose 25 MG; Start 11/26/18 at 21:00 Polyethylene Glycol (Miralax) 17 gm DAILY PRN PO constipation Last administered on 12/06/18 06:10; Admin Dose 17 GM; Start 11/29/18 at 08:02 Aspirin (Aspirin) 81 mg DAILY PO Last administered on 12/18/18 08:37; Admin Dose 81 MG; Start 11/29/18 at 09:00 Famotidine (Pepcid) 20 mg DAILY PO Last administered on 12/18/18 08:36; Admin Dose 20 MG; Start 11/29/18 at 09:00 Senna/Docusate Sodium (Senokot-S) 1 tab BID PRN PO constipation Last administered on 12/09/18 08:07; Admin Dose 1 TAB; Start 11/29/18 at 08:30 Lisinopril (Zestril) 2.5 mg DAILY PO Last administered on 12/18/18 08:37; Admin Dose 2.5 MG; Start 12/03/18 at 09:00 Furosemide (Lasix) 20 mg DAILY@0600 PO Last administered on 12/18/18 05:21; Admin Dose 20 MG; Start 12/04/18 at 10:30 Insulin Aspart (Novolog Insulin Pen) NOVOLOG *MODERATE* ALGORITHM WITH MEALS BEDTIME SC Last administered on 12/18/18 12:28; Admin Dose 4 UNIT; Start 12/08/18 at 21:00 Simethicone (Mylicon) 80 mg Q6H PRN PO DISTENSION/GAS/BLOATING; Start 12/13/18 at 17:30 Tramadol HCl (Ultram) 50 mg Q6H PRN PO MODERATE PAIN LEVEL 4-6 Last administered on 12/17/18 17:06; Admin Dose 50 MG; Start 12/14/18 at 17:00 Meropenem/Sodium Chloride 50 ml @ 100 mls/hr Q8 IVPB Last administered on 12/18/18 05:21; Admin Dose 100 MLS/HR; Start 12/15/18 at 12:00 Lactobacillus Acidophilus/ Rhamnosus (Culturelle) 1 cap BID PO Last a dministered on 12/18/18 08:36; Admin Dose 1 CAP; Start 12/15/18 at 23:30 Metformin HCl (Glucophage Xr) 500 mg WITH BREAKFAST PO Last administered on 12/18/18 08:38; Admin Dose 500 MG; Start 12/18/18 at 08:00 Loperamide HCl (Imodium Cap) 2 mg Q6H PRN PO DIARRHEA; Start 12/17/18 at 15:00 Insulin Glargine (Lantus) 35 units DAILY@0800 SC Last administered on 12/18/18 08:39; Admin Dose 35 UNITS; Start 12/18/18 at 08:00 Vancomycin HCl (Vanco Iv Per Pharmacy) VANCOMYCIN PER PHARMACY PER PROTOCOL XX ; Start 12/17/18 at 15:00 Vancomycin/Sodium Chloride 250 ml @ 83.333 mls/ hr Q24H IVPB ; Start 12/18/18 at 16:00 HERRERA MURILLO NP Dec 18, 2018 13:41
[2018-12-18 14:00] VITALS: BP 91/39; PULSE 110; RESP 18
[2018-12-18] MEDS: VANCOMYCIN 1.5 GM/NS 250 ML 250 ML IVPB SCH (15:37)
--- NOTE | 2018-12-18 16:08 | CONS ---
Assessment/Plan Assessment/Plan Hospital Course (Demo Recall) IMPRESSION: 1. Preoperative evaluation prior to possible need for peripheral revascularization surgery.-neg trop x 3 and NL EF by echo with no sig valve abnl. Echo repeat 11/13 with NL EF 2. Peripheral arterial disease with nonhealing gangrenous changes in left toe ulceration. 3. Hypertension-now tolerating low dose ACEI but with verey labile BP. Will follow 4. Dyslipidemia. 5. Diabetes mellitus. 6. s/p cardiopulmonary arrest 7. Bradycardic intermittent by tele-now resolved 8. Positive troponin after arrest-? secondary to or primary to arrest, likely secondary to arrest, type 2 demand infarct, as no signifcant uptrend and now downtrended to negative 9. Resp failure-s/p extubation 10. CVA-Acute by MRI 11.Groin wound 12. Loose stools Recc: -Now on med-surg -Continue asa/plavix/statin for cva -serial ecg's -Continue now meropenem/vancomycin and f/u bld cx's and exam -local wound care -follow volume status closely now back on daily PO lasix -follow MS closely -Continue now zestril mononotherapy at reduced dose and follow labile BP clsoely with possible need to increase dose. -metformin held, follow BS clsoely Consultation Date/Type/Reason Admit Date/Time Nov 04, 2018 at 07:34 Initial Consult Date 11/06/18 Type of Consult Cardiology Reason for Consultation Preop/HTN Requesting Provider: KARL WOOD MD Date/Time of Note DATE: 12/18/18 TIME: 16:05 Exam/Review of Systems Vital Signs Vitals Vital Signs Date Temp Pulse Resp B/P (MAP) Pulse Ox O2 O2 Flow FiO2 Time Delivery Rate 12/18/18 99.1 110 18 91/39 (56) 91 14:00 12/17/18 Room Air 14:26 Intake and Output 12/17/18 12/17/18 12/18/18 1515:00 23:00 07:00 IntakeIntake Total 50 ml 550 ml 350 ml OutputOutput Total 50 ml 50 ml BalanceBalance 50 ml 500 ml 300 ml Exam Exam Review of Systems: CONSTITUTIONAL: No fevers, chills. PULMONARY: No sob CARDIOVASCULAR: No chest pain/palpitations GASTROINTESTINAL:loose stools GENITOURINARY: No hematuria/dysuria. MUSCULOSKELETAL: No myagias/arthalgias. PSYCHIATRIC: The patient denies depression. NEUROLOGIC: No weakness Constitutional: alert Psych: no complaints Head: normocephalic ENMT: mucosa pink and moist Neck: supple, jvd (8 cm water) Respiratory: diminished breath sounds (at bases/B) Cardiovascular: regular rate and rhythm Gastrointestinal: soft, non-tender Musculoskeletal: muscle weakness (mild generalized) Extremities: edema (LLE with L footr covered by dressing) Neurological: other (No focal deficits) Labs Result Diagram: 12/17/188 12/17/18 0448 Results 24hrs Laboratory Tests Test 12/17/18 17:06 12/17/18 20:58 12/18/18 01:52 12/18/18 08:04 Bedside Glucose 150 224 H 113 89 Test 12/18/18 12:08 Bedside Glucose 192 Medications Medications Current Medications Ergocalciferol (Drisdol) 50,000 unit Sa PO Last administered on 12/14/18at 08:55; Admin Dose 50,000 UNIT; Start 11/09/18 at 09:00 Clonidine (Catapres) 0.1 mg Q6H PRN PO SBP>160 Last administered on 11/19/18at 03:04; Admin Dose 0.1 MG; Start 11/04/18 at 09:00 IV Flush (NS 3 ml) 3 ml PER PROTOCOL IV ; Start 11/04/18 at 09:00 Ondansetron HCl (Zofran Inj) 4 mg Q6H PRN IV NAUSEA/VOMITING Last administered on 12/15/18at 16:52; Admin Dose 4 MG; Start 11/04/18 at 09:00 Acetaminophen (Tylenol Tab) 650 mg Q6H PRN PO .PAIN 1-3 OR TEMP Last administered on 12/14/18at 00:29; Admin Dose 650 MG; Start 11/04/18 at 09:00 Miscellaneous Information 1 ea NOTE XX ; Start 11/04/18 at 09:00 Glucose (Glutose) 15 gm Q15M PRN PO DECREASED GLUCOSE Last administered on 12/17/18at 06:56; Admin Dose 15 GM; Start 11/04/18 at 09:00 Glucose (Glutose) 22.5 gm Q15M PRN PO DECREASED GLUCOSE; Start 11/04/18 at 09:00 Dextrose (D50w Syringe) 25 ml Q15M PRN IV DECREASED GLUCOSE; Start 11/04/18 at 09:00 Dextrose (D50w Syringe) 50 ml Q15M PRN IV DECREASED GLUCOSE; Start 11/04/18 at 09:00 Glucagon (Glucagen) 1 mg Q15M PRN IM DECREASED GLUCOSE; Start 11/04/18 at 09:00 Glucose (Glutose) 15 gm Q15M PRN BUCCAL DECREASED GLUCOSE; Start 11/04/18 at 09:00 Miscellaneous Information Patients own medicat... BID@,16 XX Last administered on 12/18/18 10:32; Admin Dose 1 EA; Start 11/04/18 at 16:00 Hydralazine HCl (Apresoline) 10 mg Q4H PRN IV sbp >160 Last administered on 11/20/18 14:44; Admin Dose 10 MG; Start 11/08/18 at 09:00 Atropine Sulfate (Atropine) 0.5 mg PRN PRN IV SYMPTOMATIC BRADYCARDIA; Start 11/11/18 at 23:00 Heparin Sodium (Porcine) (Heparin (5000 Units/1ml)) 5,000 unit BID SC Last administered on 12/18/18 08:38; Admin Dose 5,000 UNIT; Start 11/14/18 at 21:00 Bisacodyl (Dulcolax Supp) 10 mg DAILY PRN [place] CONSTIPATION Last administered on 11/14/18 16:43; Admin Dose 10 MG; Start 11/14/18 at 16:30 IV Flush (NS 10 ml) 10 ml PRN PRN IV FLUSH LINE; Start 11/15/18 at 15:30 Gabapentin (Neurontin Liquid) 300 mg BID PO Last administered on 12/18/18 10:31; Admin Dose 300 MG; Start 11/18/18 at 21:00 Ascorbic Acid (Vitamin C) 500 mg DAILY PO Last administered on 12/18/18 08:37; Admin Dose 500 MG; Start 11/20/18 at 09:00 Zinc Sulfate (Zinc Sulfate) 220 mg DAILY PO Last administered on 12/18/18 08:37; Admin Dose 220 MG; Start 11/20/18 at 09:00 Atorvastatin Calcium (Lipitor) 80 mg QHS PO Last administered on 12/17/18 20:59; Admin Dose 80 MG; Start 11/19/18 at 21:00 Lorazepam (Ativan) 0.5 mg Q6H PRN IV anxiety/agitation Last administered on 11/22/18 19:32; Admin Dose 0.5 MG; Start 11/22/18 at 11:00 Clopidogrel Bisulfate (plaVIX) 75 mg DAILY PO Last administered on 12/18/18 08:37; Admin Dose 75 MG; Start 11/23/18 at 09:00 Haloperidol (Haldol) 5 mg Q12H PRN IM agitation Last administered on 11/22/18 19:44; Admin Dose 5 MG; Start 11/22/18 at 14:30 Quetiapine Fumarate (Seroquel) 25 mg QHS PO Last administered on 12/17/18 20:59; Admin Dose 25 MG; Start 11/26/18 at 21:00 Polyethylene Glycol (Miralax) 17 gm DAILY PRN PO constipation Last administered on 12/06/18 06:10; Admin Dose 17 GM; Start 11/29/18 at 08:02 Aspirin (Aspirin) 81 mg DAILY PO Last administered on 12/18/18 08:37; Admin Dose 81 MG; Start 11/29/18 at 09:00 Famotidine (Pepcid) 20 mg DAILY PO Last administered on 12/18/18 08:36; Admin Dose 20 MG; Start 11/29/18 at 09:00 Senna/Docusate Sodium (Senokot-S) 1 tab BID PRN PO constipation Last admin istered on 12/09/18 08:07; Admin Dose 1 TAB; Start 11/29/18 at 08:30 Lisinopril (Zestril) 2.5 mg DAILY PO Last administered on 12/18/18 08:37; Admin Dose 2.5 MG; Start 12/03/18 at 09:00 Furosemide (Lasix) 20 mg DAILY@0600 PO Last administered on 12/18/18 05:21; Admin Dose 20 MG; Start 12/04/18 at 10:30 Insulin Aspart (Novolog Insulin Pen) NOVOLOG *MODERATE* ALGORITHM WITH MEALS BEDTIME SC Last administered on 12/18/18 12:28; Admin Dose 4 UNIT; Start 12/08/18 at 21:00 Simethicone (Mylicon) 80 mg Q6H PRN PO DISTENSION/GAS/BLOATING; Start 12/13/18 at 17:30 Tramadol HCl (Ultram) 50 mg Q6H PRN PO MODERATE PAIN LEVEL 4-6 Last administered on 12/17/18at 17:06; Admin Dose 50 MG; Start 12/14/18 at 17:00 Meropenem/Sodium Chloride 50 ml @ 100 mls/hr Q8 IVPB Last administered on 12/18/18at 14:17; Admin Dose 100 MLS/HR; Start 12/15/18 at 12:00 Lactobacillus Acidophilus/ Rhamnosus (Culturelle) 1 cap BID PO Last administered on 12/18/18 08:36; Admin Dose 1 CAP; Start 12/15/18 at 23:30 Loperamide HCl (Imodium Cap) 2 mg Q6H PRN PO DIARRHEA; Start 12/17/18 at 15:00 Insulin Glargine (Lantus) 35 units DAILY@0800 SC Last administered on 12/18/18at 08:39; Admin Dose 35 UNITS; Start 12/18/18 at 08:00 Vancomycin HCl (Vanco Iv Per Pharmacy) VANCOMYCIN PER PHARMACY PER PROTOCOL XX ; Start 12/17/18 at 15:00 Vancomycin/Sodium Chloride 250 ml @ 83.333 mls/ hr Q24H IVPB Last administered on 12/18/18at 15:37; Admin Dose 83.333 MLS/HR; Start 12/18/18 at 16:00 KLEVER HUNT Dec 18, 2018 16:08
--- NOTE | 2018-12-18 18:34 | PREAC ---
Date/Time of Note Date/Time of Note DATE: 12/18/18 TIME: 18:32 Anesthesia Eval and Record Evaluation Time Pre-Procedure Interview DATE: 12/18/18 TIME: 18:32 Age 72 Sex male NPO: 8 hrs Preoperative diagnosis INFECTED WOUND GRAFT Planned procedure LEFT GROIN EXPLORATION, REMOVAL INFECTED WOUND GRAFT Past Medical History Past Medical History: Includes Cardio: HTN, Dyslipidemia, Arrythmia (INTERMITTENT BRADYCARDIA), Other (peripheral vascular disease)) Endo: Diabetes Neuro: CVA (METABOLIC ENCEPHALOPATHY) Renal: ROBERT Surgery & Anesthesia Issues No known issue Meds Anticoagulation: No Beta Francia within 24 hr: No Reason Beta Francia not given: Pt. not on B-Francia Active Scripts Silver Sulfadiazine* (Silvadene*) 1% - 20 Gm Cream.gm., 1 APPLIC TOP DAILY, #1 TUB Prov:JESSIE WONG MD 06/12/18 Amoxicillin-Clavulanate K* (Augmentin*) 875 Mg Tab, 875 MG PO BID, #28 TAB Prov:AMANDA GOMEZ MD 06/08/14 Reported Medications Insulin Aspart (Novolog Mix (70/30)) 100 Units/Ml Soln, 28 SC with diinner, VIAL 11/04/18 Insulin Aspart (Novolog Mix (70/30)) 100 Units/Ml Soln, 38 SC WITH BREAKFAST, VIAL 11/04/18 Benazepril Hcl* (Benazepril Hcl*) 40 Mg Tablet, 40 MG PO DAILY, #30 TAB 11/04/18 Ergocalciferol (Vitamin D2) (VITAMIN D2) 50,000 Unit Capsule, 52006 UNIT PO weekly for saturdays, CAP 11/04/18 Omeprazole* (Omeprazole*) 20 Mg Capsule.dr, 20 MG PO DAILY, #30 CAP 11/04/18 Aspirin* (Aspirin* EC) 81 Mg Tablet.dr, 81 MG PO DAILY, TAB 11/04/18 Gabapentin* (Gabapentin*) 300 Mg Capsule, 300 MG PO BID, #60 CAP 11/04/18 Nebivolol Hcl* (Bystolic*) 20 Mg Tablet, 20 MG PO DAILY, #30 TAB 11/04/18 Atorvastatin Calcium* (Atorvastatin Calcium*) 20 Mg Tablet, 20 MG PO QHS, #30 TAB 11/04/18 Sulfasalazine (Azulfidine) 500 Mg Tab, 1000 MG PO TID, TAB 06/02/14 Current Medications Ergocalciferol (Drisdol) 50,000 unit Sa PO Last administered on 12/14/18 08:55; Admin Dose 50,000 UNIT; Start 11/09/18 at 09:00 Clonidine (Catapres) 0.1 mg Q6H PRN PO SBP>160 Last administered on 11/19/18 03:04; Admin Dose 0.1 MG; Start 11/04/18 at 09:00 IV Flush (NS 3 ml) 3 ml PER PROTOCOL IV ; Start 11/04/18 at 09:00 Ondansetron HCl (Zofran Inj) 4 mg Q6H PRN IV NAUSEA/VOMITING Last administered on 12/15/18 16:52; Admin Dose 4 MG; Start 11/04/18 at 09:00 Acetaminophen (Tylenol Tab) 650 mg Q6H PRN PO .PAIN 1-3 OR TEMP Last administered on 12/14/18 00:29; Admin Dose 650 MG; Start 11/04/18 at 09:00 Miscellaneous Information 1 ea NOTE XX ; Start 11/04/18 at 09:00 Glucose (Glutose) 15 gm Q15M PRN PO DECREASED GLUCOSE Last administered on 12/17/18 06:56; Admin Dose 15 GM; Start 11/04/18 at 09:00 Glucose (Glutose) 22.5 gm Q15M PRN PO DECREASED GLUCOSE; Start 11/04/18 at 09:00 Dextrose (D50w Syringe) 25 ml Q15M PRN IV DECREASED GLUCOSE; Start 11/04/18 at 09:00 Dextrose (D50w Syringe) 50 ml Q15M PRN IV DECREASED GLUCOSE; Start 11/04/18 at 09:00 Glucagon (Glucagen) 1 mg Q15M PRN IM DECREASED GLUCOSE; Start 11/04/18 at 09:00 Glucose (Glutose) 15 gm Q15M PRN BUCCAL DECREASED GLUCOSE; Start 11/04/18 at 09:00 Miscellaneous Information Patients own medicat... BID@10,16 XX Last administered on 12/18/18 10:32; Admin Dose 1 EA; Start 11/04/18 at 16:00 Hydralazine HCl (Apresoline) 10 mg Q4H PRN IV sbp >160 Last administered on 11/20/18 14:44; Admin Dose 10 MG; Start 11/08/18 at 09:00 Atropine Sulfate (Atropine) 0.5 mg PRN PRN IV SYMPTOMATIC BRADYCARDIA; Start 11/11/18 at 23:00 Heparin Sodium (Porcine) (Heparin (5000 Units/1ml)) 5,000 unit BID SC Last administered on 12/18/18 08:38; Admin Dose 5,000 UNIT; Start 11/14/18 at 21:00 Bisacodyl (Dulcolax Supp) 10 mg DAILY PRN SC CONSTIPATION Last administered on 11/14/18 16:43; Admin Dose 10 MG; Start 11/14/18 at 16:30 IV Flush (NS 10 ml) 10 ml PRN PRN IV FLUSH LINE; Start 11/15/18 at 15:30 Gabapentin (Neurontin Liquid) 300 mg BID PO Last administered on 12/18/18 10:31; Admin Dose 300 MG; Start 11/18/18 at 21:00 Ascorbic Acid (Vitamin C) 500 mg DAILY PO Last administered on 12/18/18 08:37; Admin Dose 500 MG; Start 11/20/18 at 09:00 Zinc Sulfate (Zinc Sulfate) 220 mg DAILY PO Last administered on 12/18/18 08:37; Admin Dose 220 MG; Start 11/20/18 at 09:00 Atorvastatin Calcium (Lipitor) 80 mg QHS PO Last administered on 12/17/18 20:59; Admin Dose 80 MG; Start 11/19/18 at 21:00 Lorazepam (Ativan) 0.5 mg Q6H PRN IV anxiety/agitation Last administered on 11/22/18 19:32; Admin Dose 0.5 MG; Start 11/22/18 at 11:00 Clopidogrel Bisulfate (plaVIX) 75 mg DAILY PO Last administered on 12/18/18 08:37; Admin Dose 75 MG; Start 11/23/18 at 09:00 Haloperidol (Haldol) 5 mg Q12H PRN IM agitation Last administered on 11/22/18 19:44; Admin Dose 5 MG; Start 11/22/18 at 14:30 Quetiapine Fumarate (Seroquel) 25 mg QHS PO Last administered on 12/17/18 20:59; Admin Dose 25 MG; Start 11/26/18 at 21:00 Polyethylene Glycol (Miralax) 17 gm DAILY PRN PO constipation Last administered on 12/06/18 06:10; Admin Dose 17 GM; Start 11/29/18 at 08:02 Aspirin (Aspirin) 81 mg DAILY PO Last administered on 12/18/18 08:37; Admin Dose 81 MG; Start 11/29/18 at 09:00 Famotidine (Pepcid) 20 mg DAILY PO Last administered on 12/18/18 08:36; Admin Dose 20 MG; Start 11/29/18 at 09:00 Senna/Docusate Sodium (Senokot-S) 1 tab BID PRN PO constipation Last administe red on 12/09/18 08:07; Admin Dose 1 TAB; Start 11/29/18 at 08:30 Lisinopril (Zestril) 2.5 mg DAILY PO Last administered on 12/18/18 08:37; Admin Dose 2.5 MG; Start 12/03/18 at 09:00 Furosemide (Lasix) 20 mg DAILY@0600 PO Last administered on 12/18/18 05:21; Admin Dose 20 MG; Start 12/04/18 at 10:30 Insulin Aspart (Novolog Insulin Pen) NOVOLOG *MODERATE* ALGORITHM WITH MEALS BEDTIME SC Last administered on 12/18/18 17:16; Admin Dose 4 UNIT; Start 12/08/18 at 21:00 Simethicone (Mylicon) 80 mg Q6H PRN PO DISTENSION/GAS/BLOATING; Start 12/13/18 at 17:30 Tramadol HCl (Ultram) 50 mg Q6H PRN PO MODERATE PAIN LEVEL 4-6 Last administered on 12/17/18 17:06; Admin Dose 50 MG; Start 12/14/18 at 17:00 Meropenem/Sodium Chloride 50 ml @ 100 mls/hr Q8 IVPB Last administered on 12/18/18 14:17; Admin Dose 100 MLS/HR; Start 12/15/18 at 12:00 Lactobacillus Acidophilus/ Rhamnosus (Culturelle) 1 cap BID PO Last administered on 12/18/18 08:36; Admin Dose 1 CAP; Start 12/15/18 at 23:30 Loperamide HCl (Imodium Cap) 2 mg Q6H PRN PO DIARRHEA; Start 12/17/18 at 15:00 Insulin Glargine (Lantus) 35 units DAILY@0800 SC Last administered on 12/18/18at 08:39; Admin Dose 35 UNITS; Start 12/18/18 at 08:00 Vancomycin HCl (Vanco Iv Per Pharmacy) VANCOMYCIN PER PHARMACY PER PROTOCOL XX ; Start 12/17/18 at 15:00 Vancomycin/Sodium Chloride 250 ml @ 83.333 mls/ hr Q24H IVPB Last administered on 12/18/18at 15:37; Admin Dose 83.333 MLS/HR; Start 12/18/18 at 16:00 Meds reviewed: Yes Allergies Coded Allergies: No Known Allergy (Unverified , 11/04/18) Allergies Reviewed: Yes Labs/Studies Labs Reviewed: Reviewed by anesthesiologist Result Diagram: 12/17/188 12/17/18447 test: N/A Studies: ECG (SR), CXR (There is bilateral lung base atelectasis. ) Pre-procedure Exam Last vitals Vital Signs Date Temp Pulse Resp B/P (MAP) Pulse Ox O2 O2 Flow FiO2 Time Delivery Rate 12/18/18 99.1 110 18 91/39 (56) 91 14:00 12/17/18 Room Air 14:26 Airway: Adequate mouth opening Mallampati: Mallampati II Teeth: Normal Lung: Normal Heart: Normal ASA Physical Status ASA physical status: 3 Emergency: None Planned Anesthetic General/MAC: ETT Pre-operative Attestations Prior to commencing anesthesia and surgery, the patient was re-evaluated, there was verification of: *The patient's identity *The results of appropriate recent lab work and preoperative vital signs *The above evaluation not changing prior to induction *Anesthetic plan, risk benefits, alternative and complications discussed with patient/family; questions answered; patient/family understands, accepts and wishes to proceed. AGUILAR INGRAM Dec 18, 2018 18:33
[2018-12-18 20:10] VITALS: BP 151/71; PULSE 118; RESP 18
[2018-12-18] MEDS: QUETIAPINE 25 MG TAB PO SCH (21:44)
[2018-12-18] MEDS: ATORVASTATIN 80 MG TAB PO SCH (21:44)
[2018-12-18] MEDS: traMADol 50 MG TAB PO PRN (22:03)
[2018-12-19] VITALS (22 sets, daily range): BP systolic 90–156; BP diastolic 42–79; PULSE 86–112; RESP 13–20
[2018-12-19] MEDS: MEROPENEM 1 GM/50ML(PMX) 50 ML IVPB SCH ×4 (00:20→22:22)
[2018-12-19] MEDS: INSULIN ASPART [NOVOLOG] 3 ML PEN SC SCH ×6 (00:36→20:34)
[2018-12-19] MEDS ORDERED: ACCU-CHEK XX SCH (02:00)
[2018-12-19] MEDS: FUROSEMIDE 20 MG TAB PO SCH (05:09)
[2018-12-19] MEDS ORDERED: LIDOCAINE 1% (MPF) 30 ML INJ ONE (06:57)
[2018-12-19] MEDS ORDERED: GELATIN SIZE 100 SPONGE ONE (06:57)
[2018-12-19] MEDS ORDERED: VANCOMYCIN 1 GM INJ ONE (06:57)
[2018-12-19] MEDS ORDERED: THROMBIN 5000 UNIT (RECOTHROM) VIAL ONE (06:57)
[2018-12-19] MEDS ORDERED: POLYMYXIN/BACITRACIN 1L IRRIG ONE (06:58)
[2018-12-19] MEDS ORDERED: HEPARIN 1000 UNITS/ML 10 ML INJ ONE (06:58)
--- NOTE | 2018-12-19 07:09 | HPN ---
Date/Time of Note Date/Time of Note DATE: 12/19/18 TIME: 07:08 Interval H&P Admission Note Pt. seen H&P reviewed: No system changes KLEVER FOREMAN MD Dec 19, 2018 07:09
[2018-12-19] MEDS ORDERED: FENTAnyl 50 MCG/ML VIAL ONE (07:41)
[2018-12-19] MEDS ORDERED: MIDAZOLAM 1 MG/ML 2 ML INJ ONE (07:41)
[2018-12-19] MEDS: INSULIN GLARGINE [LANTus] (100 UNITS/ML) SYG SC SCH (08:00)
[2018-12-19] MEDS: LACTOBACILLUS RHAMNOSUS CAP PO SCH ×2 (08:24→20:36)
[2018-12-19] MEDS: GABAPENTIN (50 MG/ML PO SYG) PO SCH ×2 (08:24→20:36)
[2018-12-19] MEDS: FAMOTIDINE 20 MG TAB PO SCH (08:24)
[2018-12-19] MEDS: ASCORBIC ACID 500 MG TAB PO SCH (08:25)
[2018-12-19] MEDS: LISINOPRIL 5 MG TAB PO SCH (08:26)
[2018-12-19] MEDS: HEPARIN 5,000 UNIT/1 ML VIAL SC SCH ×2 (08:26→20:35)
[2018-12-19] MEDS: ZINC SULFATE 220 MG CAP PO SCH (08:26)
--- NOTE | 2018-12-19 08:54 | SIPON ---
Date/Time of Note Date/Time of Note DATE: 12/19/18 TIME: 08:52 Operative Report Preoperative Diagnosis L groin lymphatic leak, infection Postoperative Diagnosis same Operation/Procedure Performed L groin exploration, ligation of leaking lymphatics, irrigation and VAC placem ent - no involvement of the previous bypass grafts which were completely covered with healthy tissue, no pus or necrotic tissue in the wound Surgeon see signature line assistant womens volleyball coach Priscilla Luther. CAROLINA Anesthesia: general Estimated blood loss: 0 - 10 ml's Transfusion Required none Specimen none Grafts/Implants none Complications none KLEVER FOREMAN MD Dec 19, 2018 08:54
[2018-12-19] MEDS ORDERED: ONDANSETRON 4 MG INJ ONE (08:55)
[2018-12-19] MEDS: CLOPIDOGREL 75 MG TAB PO SCH (09:00)
[2018-12-19] MEDS: ASPIRIN 81 MG TAB PO SCH (09:00)
[2018-12-19] MEDS ORDERED: ROCURONIUM 50 MG INJ ONE (09:04)
[2018-12-19] MEDS ORDERED: NEOSTIGMINE 3 MG/3 ML SYRINGE ONE (09:04)
[2018-12-19] MEDS ORDERED: GLYCOPYRROLATE 0.4 MG INJ ONE (09:04)
[2018-12-19] MEDS ORDERED: ETOMIDATE 20 MG INJ ONE (09:04)
[2018-12-19] MEDS ORDERED: LIDOCAINE 2% (SDV) 5 ML INJ ONE (09:04)
[2018-12-19] MEDS ORDERED: CEFAZOLIN 1 GM INJ ONE (09:05)
--- NOTE | 2018-12-19 09:19 | PAC ---
Date/Time of Note Date/Time of Note DATE: 12/19/18 TIME: 09:18 Post-Anesthesia Notes Post-Anesthesia Note Last documented vital signs Vital Signs Date Temp Pulse Resp B/P (MAP) Pulse Ox O2 O2 Flow FiO2 Time Delivery Rate 12/19/18 98.8 86 18 123/59 95 02:10 (80) 12/17/18 Room Air 14:26 Activity: WNL Respiratory function: WNL Cardiovascular function: WNL Mental status: Baseline Pain reasonably controlled: Yes Hydration appropriate: Yes Nausea/Vomiting absent: Yes Comments BP:112/56, P:78, Spo2:100%, T:98,8 ALLIE NEVES MD Dec 19, 2018 09:19
[2018-12-19] MEDS ORDERED: ONDANSETRON 4 MG INJ IV PRN (09:30)
[2018-12-19] MEDS ORDERED: FENTAnyl 50 MCG/ML VIAL IV PRN (09:30)
[2018-12-19] MEDS ORDERED: METOCLOPRAMIDE 10 MG INJ IV PRN (09:30)
[2018-12-19] MEDS ORDERED: DIPHENHYDRAMINE 50 MG INJ IV PRN (09:30)
[2018-12-19] MEDS ORDERED: HYDROmorphONE 1 MG/5 ML IV SYRINGE IV PRN (09:30)
[2018-12-19] MEDS ORDERED: MAGNESIUM OXIDE 400 MG TAB PO ONE (10:30)
--- NOTE | 2018-12-19 10:43 | OPR ---
DATE OF OPERATION: 12/19/2018 PREOPERATIVE DIAGNOSIS: Left groin lymphatic leak, infection status post iliofemoral and fem-pop bypass. POSTOPERATIVE DIAGNOSIS: Left groin lymphatic leak, infection status post iliofemoral and fem-pop bypass. PROCEDURE PERFORMED: Left groin exploration, ligation of multiple leaking lymphatics and VAC placement. PROCEDURE: The patient is here. SURGEON: Klever Lott MD CULINARY ARTIST: CAROLINA Sultana ANESTHESIA: General endotracheal anesthesia. ESTIMATED BLOOD LOSS: About 10 mL. COMPLICATIONS: There are no intraprocedural complications. INDICATIONS: This 72-year-old diabetic hypertensive gentleman who presented with gangrene of the left foot. About 6 weeks ago I performed a left iliofemoral bypass with Cromona-Fransisco and then a fem to PT bypass with in situ greater saphenous vein. He had actually done well. The gangrenous toe was amputated. His wounds are healing nicely. About a month postop, he started draining serous fluid from the upper portion of his incision. I VAC'd it, kept him on antibiotics and it just has not slowed down and now has grown Klebsiella and enterococcus from the drainage from the incision site. I brought him in today for exploration of the groin. I wanted to make sure and the bypass grafts weren't involved, and also to just ligate the lymphatics. Fortunately, the grafts were completely covered and had no involvement whatsoever. This is a fairly superficial lymphatic leak in the very upper portion of the incision up over the rectus muscle and over the inguinal ligament above the whole area of surgical dissection for the bypass graft. I found multiple enlarged lymphatics that were just leaking out and I ligated all those with 3-0 Vicryls and then placed a VAC. DESCRIPTION OF PROCEDURE: Patient was brought to the operating room and placed on the table in supine position. Left abdomen and legs were prepped down to the knee in the usual sterile fashion. Once patient was under general endotracheal anesthesia, I then began by exploring the groin incision. The incision was completely healed except the very top of the incision about a millimeter or 2 in diameter, there is an area that was leaking this clear yellowish serous fluid. I just opened that up with my finger, kind of explored the area and then placed a hemostat in and kind of extended the incision more proximally that. 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 I fully opened it up and made an incision more proximally about 2 cm and explored this little cavity there. There was just serous fluid in there. I did not see any pus, no necrotic tissue. I saw 3 or 4 large lymphatics that were dilated and I watched them and could see water kind of dripping out of them. I ligated these all with 3-0 Vicryl suture ligatures. Then I took the Bovie and just kind of cauterized the surface of the lymphocele. I really explored it quite well. There was no deep involvement at all. There is no involvement of the graft. It really was several centimeters above the graft, and there was a very thick layer of healthy granulation tissue over where the bypass grafts were. It was actually the best possible outcome, so then once I irrigated and debrided tissue away from the skin edges, it looked sort of chronically involved with the drainage. I then just placed a VAC, some silver foam and past it to 125 mm continuous suction. The patient was then extubated in the operating room and transferred to the recovery room in stable condition, tolerated the procedure well without any complications. Dictated By: KLEVER PIERRE/BOBO Conf#: [id number] DID#: [id number] CC: KLEVER HUNT MD; DARRIN RAMSAY MD; FRANTZ SCHWAB MD; TOMASA SCOTT;*EndCC* MTDD
--- NOTE | 2018-12-19 13:16 | CONS ---
Assessment/Plan Assessment/Plan Hospital Course (Demo Recall) IMPRESSION: 1. Preoperative evaluation prior to possible need for peripheral revascularization surgery.-neg trop x 3 and NL EF by echo with no sig valve abnl. Echo repeat 11/13 with NL EF 2. Peripheral arterial disease with nonhealing gangrenous changes in left toe ulceration. 3. Hypertension-now tolerating low dose ACEI but with verey labile BP. Will follow 4. Dyslipidemia. 5. Diabetes mellitus. 6. s/p cardiopulmonary arrest 7. Bradycardic intermittent by tele-now resolved 8. Positive troponin after arrest-? secondary to or primary to arrest, likely secondary to arrest, type 2 demand infarct, as no signifcant uptrend and now downtrended to negative 9. Resp failure-s/p extubation 10. CVA-Acute by MRI 11.Groin wound now post-op s/p groin exploration/ligation of leaking lymphatics with placement of VAC 12. Loose stools Recc: -Now on med-surg -Continue asa/plavix/statin for cva -serial ecg's -Continue now meropenem/vancomycin and f/u bld cx's and exam -local wound care -follow volume status closely now back on daily PO lasix -follow MS closely -Continue now zestril mononotherapy at reduced dose and follow labile BP clsoely with possible need to increase dose. -metformin held, follow BS clsoely -post-op today, routine post-op care Consultation Date/Type/Reason Admit Date/Time Nov 04, 2018 at 07:34 Initial Consult Date 11/06/18 Type of Consult Cardiology Reason for Consultation PAD/HTN Requesting Provider: KARL WOOD MD Date/Time of Note DATE: 12/19/18 TIME: 13:13 Exam/Review of Systems Vital Signs Vitals Vital Signs Date Temp Pulse Resp B/P (MAP) Pulse Ox O2 O2 Flow FiO2 Time Delivery Rate 12/19/18 97.5 98 16 130/67 97 Room Air 10:32 (88) 12/19/18 6.0 09:20 Intake and Output 12/18/18 12/18/18 12/19/18 1515:00 23:00 07:00 IntakeIntake Total 650 ml 1450 ml 530 ml OutputOutput Total 20 ml BalanceBalance 650 ml 1430 ml 530 ml Exam Exam Review of Systems: CONSTITUTIONAL: No fevers, chills. PULMONARY: No sob CARDIOVASCULAR: No chest pain/palpitations GASTROINTESTINAL: No nausea/vomiting. GENITOURINARY: No hematuria/dysuria. MUSCULOSKELETAL: No myagias/arthalgias. PSYCHIATRIC: The patient denies depression. NEUROLOGIC: No weakness Constitutional: alert Psych: no complaints Head: normocephalic ENMT: mucosa pink and moist Neck: supple, jvd (9 cm water) Respiratory: diminished breath sounds (at bases/B) Cardiovascular: regular rate and rhythm Gastrointestinal: soft, non-tender Musculoskeletal: muscle weakness (Mild generalized) Extremities: edema (trace L ankle with L foor covered by dressing) Labs Result Diagram: 12/19/18 0530 12/19/18 0530 Results 24hrs Laboratory Tests Test 12/18/18 17:06 12/18/18 21:42 12/19/18 00:26 12/19/18 05:29 Bedside Glucose 204 210 189 96 Test 12/19/18 05:30 12/19/18 09:15 12/19/18 12:07 White Blood Count 9.0 # Red Blood Count 3.10 L Hemoglobin 9.5 L Hematocrit 28.9 L Mean Corpuscular 93.2 Volume Mean Corpuscular 30.6 Hemoglobin Mean Corpuscular 32.9 Hemoglobin Concent Red Cell Distribution 14.3 Width Platelet Count 162 Mean Platelet Volume 9.6 Immature Granulocytes 0.600 H % Neutrophils % 53.6 Lymphocytes % 26.6 Monocytes % 16.3 H Eosinophils % 2.2 Basophils % 0.7 Nucleated Red Blood 0.0 Cells % Immature Granulocytes 0.050 H # Neutrophils # 4.8 Lymphocytes # 2.4 Monocytes # 1.5 H Eosinophils # 0.2 Basophils # 0.1 Nucleated Red Blood 0.0 Cells # Prothrombin Time 13.6 Prothrombin Time Ratio 1.1 INR International 1.03 Normalized Ratio Activated 41.2 H Partial Thromboplast Time Thrombin Time 15.2 Sodium Level 134 L Potassium Level 4.3 Chloride Level 102 Carbon Dioxide Level 25 Anion Gap 7 Blood Urea Nitrogen 20 Creatinine 0.88 Est Glomerular Filtrat Rate mL/min Glucose Level 97 Calcium Level 8.8 Phosphorus Level 3.9 Magnesium Level 1.5 L Bedside Glucose 113 140 Medications Medications Current Medications Ergocalciferol (Drisdol) 50,000 unit Sa PO Last administered on 12/14/18 08:55; Admin Dose 50,000 UNIT; Start 11/09/18 at 09:00 Clonidine (Catapres) 0.1 mg Q6H PRN PO SBP>160 Last administered on 11/19/18 03:04; Admin Dose 0.1 MG; Start 11/04/18 at 09:00 IV Flush (NS 3 ml) 3 ml PER PROTOCOL IV ; Start 11/04/18 at 09:00 Ondansetron HCl (Zofran Inj) 4 mg Q6H PRN IV NAUSEA/VOMITING Last administered on 12/15/18 16:52; Admin Dose 4 MG; Start 11/04/18 at 09:00 Acetaminophen (Tylenol Tab) 650 mg Q6H PRN PO .PAIN 1-3 OR TEMP Last administered on 12/14/18 00:29; Admin Dose 650 MG; Start 11/04/18 at 09:00 Miscellaneous Information 1 ea NOTE XX ; Start 11/04/18 at 09:00 Glucose (Glutose) 15 gm Q15M PRN PO DECREASED GLUCOSE Last administered on 12/17/18 06:56; Admin Dose 15 GM; Start 11/04/18 at 09:00 Glucose (Glutose) 22.5 gm Q15M PRN PO DECREASED GLUCOSE; Start 11/04/18 at 09:00 Dextrose (D50w Syringe) 25 ml Q15M PRN IV DECREASED GLUCOSE; Start 11/04/18 at 09:00 Dextrose (D50w Syringe) 50 ml Q15M PRN IV DECREASED GLUCOSE; Start 11/04/18 at 09:00 Glucagon (Glucagen) 1 mg Q15M PRN IM DECREASED GLUCOSE; Start 11/04/18 at 09:00 Glucose (Glutose) 15 gm Q15M PRN BUCCAL DECREASED GLUCOSE; Start 11/04/18 at 09:00 Miscellaneous Information Patients own medicat... BID@, XX Last administered on 12/18/18 10:32; Admin Dose 1 EA; Start 11/04/18 at 16:00 Hydralazine HCl (Apresoline) 10 mg Q4H PRN IV sbp >160 Last administered on 11/20/18 14:44; Admin Dose 10 MG; Start 11/08/18 at 09:00 Atropine Sulfate (Atropine) 0.5 mg PRN PRN IV SYMPTOMATIC BRADYCARDIA; Start 11/11/18 at 23:00 Heparin Sodium (Porcine) (Heparin (5000 Units/1ml)) 5,000 unit BID SC Last administered on 12/18/18 21:46; Admin Dose 5,000 UNIT; Start 11/14/18 at 21:00 Bisacodyl (Dulcolax Supp) 10 mg DAILY PRN [place] CONSTIPATION Last administered on 11/14/18 16:43; Admin Dose 10 MG; Start 11/14/18 at 16:30 IV Flush (NS 10 ml) 10 ml PRN PRN IV FLUSH LINE; Start 11/15/18 at 15:30 Gabapentin (Neurontin Liquid) 300 mg BID PO Last administered on 12/18/18 21:50; Admin Dose 300 MG; Start 11/18/18 at 21:00 Ascorbic Acid (Vitamin C) 500 mg DAILY PO Last administered on 12/18/18 08:37; Admin Dose 500 MG; Start 11/20/18 at 09:00 Zinc Sulfate (Zinc Sulfate) 220 mg DAILY PO Last administered on 12/18/18 08:37; Admin Dose 220 MG; Start 11/20/18 at 09:00 Atorvastatin Calcium (Lipitor) 80 mg QHS PO Last administered on 12/18/18 21:44; Admin Dose 80 MG; Start 11/19/18 at 21:00 Lorazepam (Ativan) 0.5 mg Q6H PRN IV anxiety/agitation Last administered on 11/22/18 19:32; Admin Dose 0.5 MG; Start 11/22/18 at 11:00 Clopidogrel Bisulfate (plaVIX) 75 mg DAILY PO Last administered on 12/18/18 08:37; Admin Dose 75 MG; Start 11/23/18 at 09:00 Haloperidol (Haldol) 5 mg Q12H PRN IM agitation Last administered on 11/22/18 19:44; Admin Dose 5 MG; Start 11/22/18 at 14:30 Quetiapine Fumarate (Seroquel) 25 mg QHS PO Last administered on 12/18/18 21:44; Admin Dose 25 MG; Start 11/26/18 at 21:00 Polyethylene Glycol (Miralax) 17 gm DAILY PRN PO constipation Last administered on 12/06/18 06:10; Admin Dose 17 GM; Start 11/29/18 at 08:02 Aspirin (Aspirin) 81 mg DAILY PO Last administered on 12/18/18 08:37; Admin Dose 81 MG; Start 11/29/18 at 09:00 Famotidine (Pepcid) 20 mg DAILY PO Last administered on 12/18/18 08:36; Admin Dose 20 MG; Start 11/29/18 at 09:00 Senna/Docusate Sodium (Senokot-S) 1 tab BID PRN PO constipation Last administered on 12/09/18 08:07; Admin Dose 1 TAB; Start 11/29/18 at 08:30 Lisinopril (Zestril) 2.5 mg DAILY PO Last administered on 12/18/18 08:37; Admin Dose 2.5 MG; Start 12/03/18 at 09:00 Furosemide (Lasix) 20 mg DAILY@0600 PO Last administered on 12/18/18 05:21; Admin Dose 20 MG; Start 12/04/18 at 10:30 Insulin Aspart (Novolog Insulin Pen) NOVOLOG *MODERATE* ALGORITHM WITH MEALS BEDTIME SC Last administered on 12/18/18 21:49; Admin Dose 1 UNIT; Start 12/08/18 at 21:00; Status Hold Simethicone (Mylicon) 80 mg Q6H PRN PO DISTENSION/GAS/BLOATING; Start 12/13/18 at 17:30 Tramadol HCl (Ultram) 50 mg Q6H PRN PO MODERATE PAIN LEVEL 4-6 Last administered on 12/18/18 22:03; Admin Dose 50 MG; Start 12/14/18 at 17:00 Meropenem/Sodium Chloride 50 ml @ 100 mls/hr Q8 IVPB Last administered on 12/19/18 05:31; Admin Dose 100 MLS/HR; Start 12/15/18 at 12:00 Lactobacillus Acidophilus/ Rhamnosus (Culturelle) 1 cap BID PO Last administe red on 12/18/18 21:44; Admin Dose 1 CAP; Start 12/15/18 at 23:30 Loperamide HCl (Imodium Cap) 2 mg Q6H PRN PO DIARRHEA; Start 12/17/18 at 15:00 Insulin Glargine (Lantus) 35 units DAILY@0800 SC Last administered on 12/18/18at 08:39; Admin Dose 35 UNITS; Start 12/18/18 at 08:00 Vancomycin HCl (Vanco Iv Per Pharmacy) VANCOMYCIN PER PHARMACY PER PROTOCOL XX ; Start 12/17/18 at 15:00 Vancomycin/Sodium Chloride 250 ml @ 83.333 mls/ hr Q24H IVPB Last administered on 12/18/18at 15:37; Admin Dose 83.333 MLS/HR; Start 12/18/18 at 16:00 Hydromorphone HCl (Dilaudid) 0.2 mg PACU PRN IV MILD PAIN 1-3; Start 12/19/18 at 09:30; Stop 12/19/18 at 14:00 Fentanyl (Sublimaze) 25 mcg PACU ORDER PRN IV MILD PAIN 1-3; Start 12/19/18 at 09:30; Stop 12/19/18 at 14:00 Ondansetron HCl (Zofran Inj) 4 mg PACU ORDER PRN IV NAUSEA/VOMITING; Start 12/19/18 at 09:30; Stop 12/19/18 at 14:00 Metoclopramide HCl (Reglan) 10 mg PACU ORDER PRN IV NAUSEA/VOMITING; Start 12/19/18 at 09:30; Stop 12/19/18 at 14:00 Diphenhydramine HCl (Benadryl) 25 mg PACU ORDER PRN IV .PRURITUS; Start 12/19/18 at 09:30; Stop 12/19/18 at 14:00 Insulin Aspart (Novolog Insulin Pen) NOVOLOG *MODERATE* ALGORI... AC MEALS AND BEDTIME SC ; Start 12/19/18 at 11:30 KLEVER HUNT Dec 19, 2018 13:16
--- NOTE | 2018-12-19 15:15 | CONS ---
Assessment/Plan Assessment/Plan Hospital Course (Demo Recall) Alert, feels good no fevers, no diarrhea Micro: Repeat left groin wound culture growing Klebsiella ESBL and again enterococcus species Abx: Meropenem and Vanco Physical examination: Well-developed elderly man who is in no distress head atraumatic normocephalic neck is supple chest rise symmetrical breath sounds CTA heart S1-S2, abdomen soft bowel sounds present extremities with left foot dressing intact Assessment: 1. Bacteremia, cw contaminant 2. UTI per ua==> neg cx 3. Status post cardiac arrest/non-ST elevation MD 4. Status post acute respiratory failure, possibly aspirated 5. Peripheral arterial disease status post left femoral to posterior tibial bypass 11/08/18 6. Diabetes 7. History of left foot second toe amputation 8. Left groin wound, status post exploration this afternoon with wound VAC placement Plan: Remains stable, continue abx, wound vac, follow vascular recommendations Consultation Date/Type/Reason Admit Date/Time Nov 04, 2018 at 07:34 Initial Consult Date Type of Consult id Requesting Provider: KARL WOOD MD Date/Time of Note DATE: 12/19/18 TIME: 15:14 Exam/Review of Systems Exam Vitals Vital Signs Date Temp Pulse Resp B/P (MAP) Pulse Ox O2 O2 Flow FiO2 Time Delivery Rate 12/19/18 98.1 112 20 118/59 97 Room Air 14:55 (78) 12/19/18 6.0 09:20 Intake and Output 12/18/18 12/18/18 12/19/18 1515:00 23:00 07:00 IntakeIntake Total 650 ml 1450 ml 530 ml OutputOutput Total 20 ml BalanceBalance 650 ml 1430 ml 530 ml Results Result Diagram: 12/19/18 0530 12/19/18 0530 Results 24hrs Laboratory Tests Test 12/18/18 17:06 12/18/18 21:42 12/19/18 00:26 12/19/18 05:29 Bedside Glucose 204 210 189 96 Test 12/19/18 05:30 12/19/18 09:15 12/19/18 12:07 White Blood Count 9.0 # Red Blood Count 3.10 L Hemoglobin 9.5 L Hematocrit 28.9 L Mean Corpuscular 93.2 Volume Mean Corpuscular 30.6 Hemoglobin Mean Corpuscular 32.9 Hemoglobin Concent Red Cell Distribution 14.3 Width Platelet Count 162 Mean Platelet Volume 9.6 Immature Granulocytes 0.600 H % Neutrophils % 53.6 Lymphocytes % 26.6 Monocytes % 16.3 H Eosinophils % 2.2 Basophils % 0.7 Nucleated Red Blood 0.0 Cells % Immature Granulocytes 0.050 H # Neutrophils # 4.8 Lymphocytes # 2.4 Monocytes # 1.5 H Eosinophils # 0.2 Basophils # 0.1 Nucleated Red Blood 0.0 Cells # Prothrombin Time 13.6 Prothrombin Time Ratio 1.1 INR International 1.03 Normalized Ratio Activated 41.2 H Partial Thromboplast Time Thrombin Time 15.2 Sodium Level 134 L Potassium Level 4.3 Chloride Level 102 Carbon Dioxide Level 25 Anion Gap 7 Blood Urea Nitrogen 20 Creatinine 0.88 Est Glomerular Filtrat Rate mL/min Glucose Level 97 Calcium Level 8.8 Phosphorus Level 3.9 Magnesium Level 1.5 L Bedside Glucose 113 140 Medications Medication Current Medications Ergocalciferol (Drisdol) 50,000 unit Sa PO Last administered on 12/14/18at 08:55; Admin Dose 50,000 UNIT; Start 11/09/18 at 09:00 Clonidine (Catapres) 0.1 mg Q6H PRN PO SBP>160 Last administered on 11/19/18at 03:04; Admin Dose 0.1 MG; Start 11/04/18 at 09:00 IV Flush (NS 3 ml) 3 ml PER PROTOCOL IV ; Start 11/04/18 at 09:00 Ondansetron HCl (Zofran Inj) 4 mg Q6H PRN IV NAUSEA/VOMITING Last administered on 12/15/18at 16:52; Admin Dose 4 MG; Start 11/04/18 at 09:00 Acetaminophen (Tylenol Tab) 650 mg Q6H PRN PO .PAIN 1-3 OR TEMP Last administered on 12/14/18at 00:29; Admin Dose 650 MG; Start 11/04/18 at 09:00 Miscellaneous Information 1 ea NOTE XX ; Start 11/04/18 at 09:00 Glucose (Glutose) 15 gm Q15M PRN PO DECREASED GLUCOSE Last administered on 12/17/18at 06:56; Admin Dose 15 GM; Start 11/04/18 at 09:00 Glucose (Glutose) 22.5 gm Q15M PRN PO DECREASED GLUCOSE; Start 11/04/18 at 09:00 Dextrose (D50w Syringe) 25 ml Q15M PRN IV DECREASED GLUCOSE; Start 11/04/18 at 09:00 Dextrose (D50w Syringe) 50 ml Q15M PRN IV DECREASED GLUCOSE; Start 11/04/18 at 09:00 Glucagon (Glucagen) 1 mg Q15M PRN IM DECREASED GLUCOSE; Start 11/04/18 at 09:00 Glucose (Glutose) 15 gm Q15M PRN BUCCAL DECREASED GLUCOSE; Start 11/04/18 at 09:00 Miscellaneous Information Patients own medicat... BID@10,16 XX Last administered on 12/18/18 10:32; Admin Dose 1 EA; Start 11/04/18 at 16:00 Hydralazine HCl (Apresoline) 10 mg Q4H PRN IV sbp >160 Last administered on 11/20/18 14:44; Admin Dose 10 MG; Start 11/08/18 at 09:00 Atropine Sulfate (Atropine) 0.5 mg PRN PRN IV SYMPTOMATIC BRADYCARDIA; Start 11/11/18 at 23:00 Heparin Sodium (Porcine) (Heparin (5000 Units/1ml)) 5,000 unit BID SC Last administered on 12/18/18 21:46; Admin Dose 5,000 UNIT; Start 11/14/18 at 21:00 Bisacodyl (Dulcolax Supp) 10 mg DAILY PRN [place] CONSTIPATION Last administered on 11/14/18 16:43; Admin Dose 10 MG; Start 11/14/18 at 16:30 IV Flush (NS 10 ml) 10 ml PRN PRN IV FLUSH LINE; Start 11/15/18 at 15:30 Gabapentin (Neurontin Liquid) 300 mg BID PO Last administered on 12/18/18 21:50; Admin Dose 300 MG; Start 11/18/18 at 21:00 Ascorbic Acid (Vitamin C) 500 mg DAILY PO Last administered on 12/18/18 08:37; Admin Dose 500 MG; Start 11/20/18 at 09:00 Zinc Sulfate (Zinc Sulfate) 220 mg DAILY PO Last administered on 12/18/18 08:37; Admin Dose 220 MG; Start 11/20/18 at 09:00 Atorvastatin Calcium (Lipitor) 80 mg QHS PO Last administered on 12/18/18 21:44; Admin Dose 80 MG; Start 11/19/18 at 21:00 Lorazepam (Ativan) 0.5 mg Q6H PRN IV anxiety/agitation Last administered on 11/22/18 19:32; Admin Dose 0.5 MG; Start 11/22/18 at 11:00 Clopidogrel Bisulfate (plaVIX) 75 mg DAILY PO Last administered on 12/18/18 08:37; Admin Dose 75 MG; Start 11/23/18 at 09:00 Haloperidol (Haldol) 5 mg Q12H PRN IM agitation Last administered on 11/22/18 19:44; Admin Dose 5 MG; Start 11/22/18 at 14:30 Quetiapine Fumarate (Seroquel) 25 mg QHS PO Last administered on 12/18/18 21:44; Admin Dose 25 MG; Start 11/26/18 at 21:00 Polyethylene Glycol (Miralax) 17 gm DAILY PRN PO constipation Last administered on 12/06/18 06:10; Admin Dose 17 GM; Start 11/29/18 at 08:02 Aspirin (Aspirin) 81 mg DAILY PO Last administered on 12/18/18 08:37; Admin Dose 81 MG; Start 11/29/18 at 09:00 Famotidine (Pepcid) 20 mg DAILY PO Last administered on 12/18/18 08:36; Admin Dose 20 MG; Start 11/29/18 at 09:00 Senna/Docusate Sodium (Senokot-S) 1 tab BID PRN PO constipation Last administered on 12/09/18 08:07; Admin Dose 1 TAB; Start 11/29/18 at 08:30 Lisinopril (Zestril) 2.5 mg DAILY PO Last administered on 12/18/18 08:37; Admin Dose 2.5 MG; Start 12/03/18 at 09:00 Furosemide (Lasix) 20 mg DAILY@0600 PO Last administered on 12/18/18 05:21; Admin Dose 20 MG; Start 12/04/18 at 10:30 Insulin Aspart (Novolog Insulin Pen) NOVOLOG *MODERATE* ALGORITHM WITH MEALS BEDTIME SC Last administered on 12/18/18 21:49; Admin Dose 1 UNIT; Start 12/08/18 at 21:00; Status Hold Simethicone (Mylicon) 80 mg Q6H PRN PO DISTENSION/GAS/BLOATING; Start 12/13/18 at 17:30 Tramadol HCl (Ultram) 50 mg Q6H PRN PO MODERATE PAIN LEVEL 4-6 Last administered on 12/18/18at 22:03; Admin Dose 50 MG; Start 12/14/18 at 17:00 Meropenem/Sodium Chloride 50 ml @ 100 mls/hr Q8 IVPB Last administered on 12/19/18at 15:04; Admin Dose 100 MLS/HR; Start 12/15/18 at 12:00 Lactobacillus Acidophilus/ Rhamnosus (Culturelle) 1 cap BID PO Last administered on 12/18/18at 21:44; Admin Dose 1 CAP; Start 12/15/18 at 23:30 Loperamide HCl (Imodium Cap) 2 mg Q6H PRN PO DIARRHEA; Start 12/17/18 at 15:00 Insulin Glargine (Lantus) 35 units DAILY@0800 SC Last administered on 12/18/18at 08:39; Admin Dose 35 UNITS; Start 12/18/18 at 08:00 Vancomycin HCl (Vanco Iv Per Pharmacy) VANCOMYCIN PER PHARMACY PER PROTOCOL XX ; Start 12/17/18 at 15:00 Vancomycin/Sodium Chloride 250 ml @ 83.333 mls/ hr Q24H IVPB Last administered on 12/18/18at 15:37; Admin Dose 83.333 MLS/HR; Start 12/18/18 at 16:00 Insulin Aspart (Novolog Insulin Pen) NOVOLOG *MODERATE* ALGORI... AC MEALS AND BEDTIME SC ; Start 12/19/18 at 11:30 Miscellaneous Information (*Rx Drug Level Order Reminder*) VANCOMYCIN TROUGH LE... 1500 ONCE XX ; Start 12/20/18 at 15:00; Stop 12/20/18 at 15:01 HERRERA MURILLO NP Dec 19, 2018 15:15
[2018-12-19] MEDS: VANCOMYCIN 1.5 GM/NS 250 ML 250 ML IVPB SCH (15:47)
[2018-12-19] MEDS: ATORVASTATIN 80 MG TAB PO SCH (20:36)
[2018-12-19] MEDS: QUETIAPINE 25 MG TAB PO SCH (20:36)
[2018-12-19] MEDS: traMADol 50 MG TAB PO PRN (20:37)
[2018-12-20 02:10] VITALS: BP 124/61; PULSE 105; RESP 18
[2018-12-20] MEDS: MEROPENEM 1 GM/50ML(PMX) 50 ML IVPB SCH ×3 (05:31→21:13)
[2018-12-20] MEDS: FUROSEMIDE 20 MG TAB PO SCH (05:31)
[2018-12-20 05:32] VITALS: BP 101/50; PULSE 96
[2018-12-20 08:00] VITALS: BP 94/51; PULSE 94; RESP 14
[2018-12-20] MEDS: ASPIRIN 81 MG TAB PO SCH (08:04)
[2018-12-20] MEDS: ASCORBIC ACID 500 MG TAB PO SCH (08:04)
[2018-12-20] MEDS: FAMOTIDINE 20 MG TAB PO SCH (08:04)
[2018-12-20] MEDS: ZINC SULFATE 220 MG CAP PO SCH (08:04)
[2018-12-20] MEDS: CLOPIDOGREL 75 MG TAB PO SCH (08:04)
[2018-12-20] MEDS: LACTOBACILLUS RHAMNOSUS CAP PO SCH ×2 (08:04→20:52)
[2018-12-20] MEDS: INSULIN ASPART [NOVOLOG] 3 ML PEN SC SCH ×4 (08:06→21:02)
[2018-12-20] MEDS: INSULIN GLARGINE [LANTus] (100 UNITS/ML) SYG SC SCH (08:07)
[2018-12-20] MEDS: HEPARIN 5,000 UNIT/1 ML VIAL SC SCH ×2 (08:08→21:02)
[2018-12-20] MEDS: LISINOPRIL 5 MG TAB PO SCH (09:00)
[2018-12-20 09:28] VITALS: BP 124/63; PULSE 99
[2018-12-20] MEDS: GABAPENTIN (50 MG/ML PO SYG) PO SCH ×2 (09:30→21:19)
--- NOTE | 2018-12-20 10:03 | PN ---
Date/Time of Note Date/Time of Note DATE: 12/17/18 TIME: 10:00 Objective Vitals Vital Signs Date Temp Pulse Resp B/P (MAP) Pulse Ox O2 O2 Flow FiO2 Time Delivery Rate 12/20/18 99 124/63 96 09:28 (83) 12/20/18 98.0 14 08:00 12/19/18 Room Air 14:55 12/19/18 6.0 09:20 Intake and Output 12/19/18 12/19/18 12/20/18 1515:00 23:00 07:00 IntakeIntake Total 1120 ml 790 ml 550 ml OutputOutput Total 335 ml 5 ml BalanceBalance 785 ml 785 ml 550 ml Results Result Diagram: 12/19/18 0530 12/19/18 0530 Medications Medications Current Medications Ergocalciferol (Drisdol) 50,000 unit Sa PO Last administered on 12/14/18at 08:55; Admin Dose 50,000 UNIT; Start 11/09/18 at 09:00 Clonidine (Catapres) 0.1 mg Q6H PRN PO SBP>160 Last administered on 11/19/18at 03:04; Admin Dose 0.1 MG; Start 11/04/18 at 09:00 IV Flush (NS 3 ml) 3 ml PER PROTOCOL IV ; Start 11/04/18 at 09:00 Ondansetron HCl (Zofran Inj) 4 mg Q6H PRN IV NAUSEA/VOMITING Last administered on 12/15/18at 16:52; Admin Dose 4 MG; Start 11/04/18 at 09:00 Acetaminophen (Tylenol Tab) 650 mg Q6H PRN PO .PAIN 1-3 OR TEMP Last administered on 12/14/18at 00:29; Admin Dose 650 MG; Start 11/04/18 at 09:00 Miscellaneous Information 1 ea NOTE XX ; Start 11/04/18 at 09:00 Glucose (Glutose) 15 gm Q15M PRN PO DECREASED GLUCOSE Last administered on 12/17at 06:56; Admin Dose 15 GM; Start 11/04/18 at 09:00 Glucose (Glutose) 22.5 gm Q15M PRN PO DECREASED GLUCOSE; Start 11/04/18 at 09:00 Dextrose (D50w Syringe) 25 ml Q15M PRN IV DECREASED GLUCOSE; Start 11/04/18 at 09:00 Dextrose (D50w Syringe) 50 ml Q15M PRN IV DECREASED GLUCOSE; Start 11/04/18 at 09:00 Glucagon (Glucagen) 1 mg Q15M PRN IM DECREASED GLUCOSE; Start 11/04/18 at 09:00 Glucose (Glutose) 15 gm Q15M PRN BUCCAL DECREASED GLUCOSE; Start 11/04/18 at 09:00 Miscellaneous Information Patients own medicat... BID@10,16 XX Last administered on 12/18/18at 10:32; Admin Dose 1 EA; Start 11/04/18 at 16:00 Hydralazine HCl (Apresoline) 10 mg Q4H PRN IV sbp >160 Last administered on 11/20/18 14:44; Admin Dose 10 MG; Start 11/08/18 at 09:00 Atropine Sulfate (Atropine) 0.5 mg PRN PRN IV SYMPTOMATIC BRADYCARDIA; Start 11/11/18 at 23:00 Heparin Sodium (Porcine) (Heparin (5000 Units/1ml)) 5,000 unit BID SC Last administered on 12/20/18at 08:08; Admin Dose 5,000 UNIT; Start 11/14/18 at 21:00 Bisacodyl (Dulcolax Supp) 10 mg DAILY PRN [place] CONSTIPATION Last administered on 11/14/18 16:43; Admin Dose 10 MG; Start 11/14/18 at 16:30 IV Flush (NS 10 ml) 10 ml PRN PRN IV FLUSH LINE; Start 11/15/18 at 15:30 Gabapentin (Neurontin Liquid) 300 mg BID PO Last administered on 12/20/18 09:30; Admin Dose 300 MG; Start 11/18/18 at 21:00 Ascorbic Acid (Vitamin C) 500 mg DAILY PO Last administered on 12/20/18 08:04; Admin Dose 500 MG; Start 11/20/18 at 09:00 Zinc Sulfate (Zinc Sulfate) 220 mg DAILY PO Last administered on 12/20/18 08:04; Admin Dose 220 MG; Start 11/20/18 at 09:00 Atorvastatin Calcium (Lipitor) 80 mg QHS PO Last administered on 12/19/18at 20:36; Admin Dose 80 MG; Start 11/19/18 at 21:00 Lorazepam (Ativan) 0.5 mg Q6H PRN IV anxiety/agitation Last administered on 11/22/18 19:32; Admin Dose 0.5 MG; Start 11/22/18 at 11:00 Clopidogrel Bisulfate (plaVIX) 75 mg DAILY PO Last administered on 12/20/18 08:04; Admin Dose 75 MG; Start 11/23/18 at 09:00 Haloperidol (Haldol) 5 mg Q12H PRN IM agitation Last administered on 11/22/18 19:44; Admin Dose 5 MG; Start 11/22/18 at 14:30 Quetiapine Fumarate (Seroquel) 25 mg QHS PO Last administered on 12/19/18 20:36; Admin Dose 25 MG; Start 11/26/18 at 21:00 Polyethylene Glycol (Miralax) 17 gm DAILY PRN PO constipation Last administered on 12/06/18 06:10; Admin Dose 17 GM; Start 11/29/18 at 08:02 Aspirin (Aspirin) 81 mg DAILY PO Last administered on 12/20/18 08:04; Admin Dose 81 MG; Start 11/29/18 at 09:00 Famotidine (Pepcid) 20 mg DAILY PO Last administered on 12/20/18 08:04; Admin Dose 20 MG; Start 11/29/18 at 09:00 Senna/Docusate Sodium (Senokot-S) 1 tab BID PRN PO constipation Last administered on 12/09/18 08:07; Admin Dose 1 TAB; Start 11/29/18 at 08:30 Lisinopril (Zestril) 2.5 mg DAILY PO Last administered on 12/18/18 08:37; Admin Dose 2.5 MG; Start 12/03/18 at 09:00 Furosemide (Lasix) 20 mg DAILY@0600 PO Last administered on 12/20/18 05:31; Admin Dose 20 MG; Start 12/04/18 at 10:30 Insulin Aspart (Novolog Insulin Pen) NOVOLOG *MODERATE* ALGORITHM WITH MEALS BEDTIME SC Last administered on 12/20/18 08:06; Admin Dose 4 UNIT; Start 12/08/18 at 21:00 Simethicone (Mylicon) 80 mg Q6H PRN PO DISTENSION/GAS/BLOATING; Start 12/13/18 at 17:30 Tramadol HCl (Ultram) 50 mg Q6H PRN PO MODERATE PAIN LEVEL 4-6 Last administered on 12/19/18at 20:37; Admin Dose 50 MG; Start 12/14/18 at 17:00 Meropenem/Sodium Chloride 50 ml @ 100 mls/hr Q8 IVPB Last administered on 12/20/18at 05:31; Admin Dose 100 MLS/HR; Start 12/15/18 at 12:00 Lactobacillus Acidophilus/ Rhamnosus (Culturelle) 1 cap BID PO Last administered on 12/20/18at 08:04; Admin Dose 1 CAP; Start 12/15/18 at 23:30 Loperamide HCl (Imodium Cap) 2 mg Q6H PRN PO DIARRHEA; Start 12/17/18 at 15:00 Insulin Glargine (Lantus) 35 units DAILY@0800 SC Last administered on 12/20/18at 08:07; Admin Dose 35 UNITS; Start 12/18/18 at 08:00 Vancomycin HCl (Vanco Iv Per Pharmacy) VANCOMYCIN PER PHARMACY PER PROTOCOL XX ; Start 12/17/18 at 15:00 Vancomycin/Sodium Chloride 250 ml @ 83.333 mls/ hr Q24H IVPB Last administered on 12/19/18at 15:47; Admin Dose 83.333 MLS/HR; Start 12/18/18 at 16:00 Miscellaneous Information (*Rx Drug Level Order Reminder*) VANCOMYCIN TROUGH LE... 1500 ONCE XX ; Start 12/20/18 at 15:00; Stop 12/20/18 at 15:01 VTE Prophylaxis Risk score (from Ns)>0 risk: 6 SCD applied (from [facility] [place]): Yes Lines/Catheters IV Catheter Type: Vora in Place: No Assessment/Plan Hospital Course this note is intended for 12/17/18 Subjective Patient doing well, just came back from surgery Objective Physical exam General: Patient is laying in bed responding to questions appropriately Mentation: Patient is alert and oriented Head: Normocephalic atraumatic Eyes: EOMI, pupils reactive to light Neck: Supple, nontender, midline Respiratory: Coarse to auscultation bilaterally Cardiovascular: regular rate, no obvious murmurs Gastrointestinal: non-tender to palpation, bowel sounds heard. Neurological: Moves all extremities spontaneously Skin: No new skin lesions, surgical site bandaged, CDI Assessment/Plan Assessment/Plan 1. Drainage from surgical site and groin area- stable -Patient is awaiting surgery tomorrow - continue with wound vac with dressing changes - CM on board and arranging HH for wound vac changes 2. Groin wound infection, enterococcus and Coag neg staph - wound vac in place per Vasc recommendations - ID on board for antibiotic recommendations and will continue current treatment. 3. 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 - Continue local wound care - Podiatry on board and appreciate consultation. no further procedures scheduled at this time. will need to follow up as outpatient 4. Left frontal CVA - Neurology on board and appreciate recommendations - continue on aspirin and Plavix and statin 5. left-sided internal carotid artery stenosis - 25% per CT angiogram, continue aspirin, statin, Plavix per vascular surgeon 6. Acute hypoxic respiratory failure-resolved - doing well on room air - Pulmonology consultation appreciated 7. Cardiac arrest s/p ROSC - Cardiology on board and appreciate recommendations - ECHO with preserved EF 8. Severe peripheral vascular disease - s/p left femoral endarterectomy, iliofemoral bypass and femoral to posterior tibial bypass done on November 08, 2018 - Vascular surgery consultation appreciated. Continue aspirin and Plavix 9. Diabetes Mellitus - A1c noted - metformin dc'd due to possible diarrhea 10. Acute kidney injury- resolved - nephrology consultation appreciated 11. Essential HTN - Continue home medications at this time as tolerated 12. Peripheral neuropathy - cont. gabapentin 13. HLD - On statin 14. Chronic anemia - Stable H&H. Monitor - no need for transfusions at this time 15. Urinary retention, resolved - Urology on board and appreciate recommendations. - voiding without any issues 16. Disposition -Vascular planning another procedure this to exchange graft. FRANTZ SCHWAB Dec 20, 2018 10:03
--- NOTE | 2018-12-20 10:05 | PN ---
Date/Time of Note Date/Time of Note DATE: 12/19/18 TIME: 10:04 Objective Vitals Vital Signs Date Temp Pulse Resp B/P (MAP) Pulse Ox O2 O2 Flow FiO2 Time Delivery Rate 12/20/18 99 124/63 96 09:28 (83) 12/20/18 98.0 14 08:00 12/19/18 Room Air 14:55 12/19/18 6.0 09:20 Intake and Output 12/19/18 12/19/18 12/20/18 1515:00 23:00 07:00 IntakeIntake Total 1120 ml 790 ml 550 ml OutputOutput Total 335 ml 5 ml BalanceBalance 785 ml 785 ml 550 ml Results Result Diagram: 12/19/18 0530 12/19/18 0530 Medications Medications Current Medications Ergocalciferol (Drisdol) 50,000 unit Sa PO Last administered on 12/14/18at 08:55; Admin Dose 50,000 UNIT; Start 11/09/18 at 09:00 Clonidine (Catapres) 0.1 mg Q6H PRN PO SBP>160 Last administered on 11/19/18at 03:04; Admin Dose 0.1 MG; Start 11/04/18 at 09:00 IV Flush (NS 3 ml) 3 ml PER PROTOCOL IV ; Start 11/04/18 at 09:00 Ondansetron HCl (Zofran Inj) 4 mg Q6H PRN IV NAUSEA/VOMITING Last administered on 12/15/18at 16:52; Admin Dose 4 MG; Start 11/04/18 at 09:00 Acetaminophen (Tylenol Tab) 650 mg Q6H PRN PO .PAIN 1-3 OR TEMP Last administered on 12/14/18at 00:29; Admin Dose 650 MG; Start 11/04/18 at 09:00 Miscellaneous Information 1 ea NOTE XX ; Start 11/04/18 at 09:00 Glucose (Glutose) 15 gm Q15M PRN PO DECREASED GLUCOSE Last administered on 12/17/18at 06:56; Admin Dose 15 GM; Start 11/04/18 at 09:00 Glucose (Glutose) 22.5 gm Q15M PRN PO DECREASED GLUCOSE; Start 11/04/18 at 09:00 Dextrose (D50w Syringe) 25 ml Q15M PRN IV DECREASED GLUCOSE; Start 11/04/18 at 09:00 Dextrose (D50w Syringe) 50 ml Q15M PRN IV DECREASED GLUCOSE; Start 11/04/18 at 09:00 Glucagon (Glucagen) 1 mg Q15M PRN IM DECREASED GLUCOSE; Start 11/04/18 at 09:00 Glucose (Glutose) 15 gm Q15M PRN BUCCAL DECREASED GLUCOSE; Start 11/04/18 at 09:00 Miscellaneous Information Patients own medicat... BID@10,16 XX Last administered on 12/18/18at 10:32; Admin Dose 1 EA; Start 11/04/18 at 16:00 Hydralazine HCl (Apresoline) 10 mg Q4H PRN IV sbp >160 Last administered on 11/20/18 14:44; Admin Dose 10 MG; Start 11/08/18 at 09:00 Atropine Sulfate (Atropine) 0.5 mg PRN PRN IV SYMPTOMATIC BRADYCARDIA; Start 11/11/18 at 23:00 Heparin Sodium (Porcine) (Heparin (5000 Units/1ml)) 5,000 unit BID SC Last administered on 12/20/18at 08:08; Admin Dose 5,000 UNIT; Start 11/14/18 at 21:00 Bisacodyl (Dulcolax Supp) 10 mg DAILY PRN [place] CONSTIPATION Last administered on 11/14/18 16:43; Admin Dose 10 MG; Start 11/14/18 at 16:30 IV Flush (NS 10 ml) 10 ml PRN PRN IV FLUSH LINE; Start 11/15/18 at 15:30 Gabapentin (Neurontin Liquid) 300 mg BID PO Last administered on 12/20/18 09:30; Admin Dose 300 MG; Start 11/18/18 at 21:00 Ascorbic Acid (Vitamin C) 500 mg DAILY PO Last administered on 12/20/18 08:04; Admin Dose 500 MG; Start 11/20/18 at 09:00 Zinc Sulfate (Zinc Sulfate) 220 mg DAILY PO Last administered on 12/20/18 08:04; Admin Dose 220 MG; Start 11/20/18 at 09:00 Atorvastatin Calcium (Lipitor) 80 mg QHS PO Last administered on 12/19/18at 20:36; Admin Dose 80 MG; Start 11/19/18 at 21:00 Lorazepam (Ativan) 0.5 mg Q6H PRN IV anxiety/agitation Last administered on 11/22/18 19:32; Admin Dose 0.5 MG; Start 11/22/18 at 11:00 Clopidogrel Bisulfate (plaVIX) 75 mg DAILY PO Last administered on 12/20/18 08:04; Admin Dose 75 MG; Start 11/23/18 at 09:00 Haloperidol (Haldol) 5 mg Q12H PRN IM agitation Last administered on 11/22/18 19:44; Admin Dose 5 MG; Start 11/22/18 at 14:30 Quetiapine Fumarate (Seroquel) 25 mg QHS PO Last administered on 12/19/18 20:36; Admin Dose 25 MG; Start 11/26/18 at 21:00 Polyethylene Glycol (Miralax) 17 gm DAILY PRN PO constipation Last administered on 12/06/18 06:10; Admin Dose 17 GM; Start 11/29/18 at 08:02 Aspirin (Aspirin) 81 mg DAILY PO Last administered on 12/20/18 08:04; Admin Dose 81 MG; Start 11/29/18 at 09:00 Famotidine (Pepcid) 20 mg DAILY PO Last administered on 12/20/18 08:04; Admin Dose 20 MG; Start 11/29/18 at 09:00 Senna/Docusate Sodium (Senokot-S) 1 tab BID PRN PO constipation Last administered on 12/09/18 08:07; Admin Dose 1 TAB; Start 11/29/18 at 08:30 Lisinopril (Zestril) 2.5 mg DAILY PO Last administered on 12/18/18 08:37; Admin Dose 2.5 MG; Start 12/03/18 at 09:00 Furosemide (Lasix) 20 mg DAILY@0600 PO Last administered on 12/20/18 05:31; Admin Dose 20 MG; Start 12/04/18 at 10:30 Insulin Aspart (Novolog Insulin Pen) NOVOLOG *MODERATE* ALGORITHM WITH MEALS BEDTIME SC Last administered on 12/20/18 08:06; Admin Dose 4 UNIT; Start 12/08/18 at 21:00 Simethicone (Mylicon) 80 mg Q6H PRN PO DISTENSION/GAS/BLOATING; Start 12/13/18 at 17:30 Tramadol HCl (Ultram) 50 mg Q6H PRN PO MODERATE PAIN LEVEL 4-6 Last administered on 12/19/18at 20:37; Admin Dose 50 MG; Start 12/14/18 at 17:00 Meropenem/Sodium Chloride 50 ml @ 100 mls/hr Q8 IVPB Last administered on 12/20/18at 05:31; Admin Dose 100 MLS/HR; Start 12/15/18 at 12:00 Lactobacillus Acidophilus/ Rhamnosus (Culturelle) 1 cap BID PO Last administered on 12/20/18at 08:04; Admin Dose 1 CAP; Start 12/15/18 at 23:30 Loperamide HCl (Imodium Cap) 2 mg Q6H PRN PO DIARRHEA; Start 12/17/18 at 15:00 Insulin Glargine (Lantus) 35 units DAILY@0800 SC Last administered on 12/20/18at 08:07; Admin Dose 35 UNITS; Start 12/18/18 at 08:00 Vancomycin HCl (Vanco Iv Per Pharmacy) VANCOMYCIN PER PHARMACY PER PROTOCOL XX ; Start 12/17/18 at 15:00 Vancomycin/Sodium Chloride 250 ml @ 83.333 mls/ hr Q24H IVPB Last administered on 12/19/18at 15:47; Admin Dose 83.333 MLS/HR; Start 12/18/18 at 16:00 Miscellaneous Information (*Rx Drug Level Order Reminder*) VANCOMYCIN TROUGH LE... 1500 ONCE XX ; Start 12/20/18 at 15:00; Stop 12/20/18 at 15:01 VTE Prophylaxis Risk score (from Ns)>0 risk: 6 [place] [facility] [place] Lines/Catheters IV Catheter Type: Vora in Place: No Assessment/Plan Hospital Course this note is intended for 12/19/18 Subjective Patient doing well, just came back from surgery Objective Physical exam General: Patient is laying in bed responding to questions appropriately Mentation: Patient is alert and oriented Head: Normocephalic atraumatic Eyes: EOMI, pupils reactive to light Neck: Supple, nontender, midline Respiratory: Coarse to auscultation bilaterally Cardiovascular: regular rate, no obvious murmurs Gastrointestinal: non-tender to palpation, bowel sounds heard. Neurological: Moves all extremities spontaneously Skin: No new skin lesions, surgical site bandaged, CDI Assessment/Plan Assessment/Plan 1. Drainage from surgical site and groin area- stable status post surgical exploration the ground surgical site, graft did not need to be replaced, lymph drainage cleaned up by vascular surgeon - continue with wound vac with dressing changes - CM on board and arranging for wound vac changes 2. Groin wound infection, enterococcus and Coag neg staph - wound vac in place per Vasc recommendations - ID on board for antibiotic recommendations and will continue current treatment. 3. 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 - Continue local wound care - Podiatry on board and appreciate consultation. no further procedures scheduled at this time. will need to follow up as outpatient 4. Left frontal CVA - Neurology on board and appreciate recommendations - continue on aspirin and Plavix and statin 5. left-sided internal carotid artery stenosis - 25% per CT angiogram, continue aspirin, statin, Plavix per vascular surgeon 6. Acute hypoxic respiratory failure-resolved - doing well on room air - Pulmonology consultation appreciated 7. Cardiac arrest s/p ROSC - Cardiology on board and appreciate recommendations - ECHO with preserved EF 8. Severe peripheral vascular disease - s/p left femoral endarterectomy, iliofemoral bypass and femoral to posterior tibial bypass done on November 08, 2018 - Vascular surgery consultation appreciated. Continue aspirin and Plavix 9. Diabetes Mellitus - A1c noted - metformin dc'd due to possible diarrhea 10. Acute kidney injury- resolved - nephrology consultation appreciated 11. Essential HTN - Continue home medications at this time as tolerated 12. Peripheral neuropathy - cont. gabapentin 13. HLD - On statin 14. Chronic anemia - Stable H&H. Monitor - no need for transfusions at this time 15. Urinary retention, resolved - Urology on board and appreciate recommendations. - voiding without any issues 16. Disposition -monitor post surgical site exploration of graft and lymph drainage correction FRANTZ SCHWAB Dec 20, 2018 10:05
--- NOTE | 2018-12-20 12:23 | CONS ---
Assessment/Plan Assessment/Plan Hospital Course (Demo Recall) No events Micro: Repeat left groin wound culture growing Klebsiella ESBL and again enterococcus species Abx: Meropenem and Vanco Physical examination: Well-developed elderly man who is in no distress head atraumatic normocephalic neck is supple chest rise symmetrical breath sounds CTA heart S1-S2, abdomen soft bowel sounds present extremities with left foot dressing intact Assessment: 1. Bacteremia, cw contaminant 2. UTI per ua==> neg cx 3. Status post cardiac arrest/non-ST elevation [place] 4. Status post acute respiratory failure, possibly aspirated 5. Peripheral arterial disease status post left femoral to posterior tibial bypass 11/08/18 6. Diabetes 7. History of left foot second toe amputation 8. Left groin wound, status post exploration 12/19/18 with wound VAC placement==> no graft involvement Plan: Remains stable, change Vanco to Amoxil, continue Merrem, both abx for 7 more days Consultation Date/Type/Reason Admit Date/Time Nov 04, 2018 at 07:34 Initial Consult Date Type of Consult id Requesting Provider: KARL WOOD MD Date/Time of Note DATE: 12/20/18 TIME: 12:21 Exam/Review of Systems Exam Vitals Vital Signs Date Temp Pulse Resp B/P (MAP) Pulse Ox O2 O2 Flow FiO2 Time Delivery Rate 12/20/18 99 124/63 96 09:28 (83) 12/20/18 98.0 14 08:00 12/19/18 Room Air 14:55 12/19/18 6.0 09:20 Intake and Output 12/19/18 12/19/18 12/20/18 1515:00 23:00 07:00 IntakeIntake Total 1120 ml 790 ml 550 ml OutputOutput Total 335 ml 5 ml BalanceBalance 785 ml 785 ml 550 ml Results Result Diagram: 12/19/18 0530 12/19/18 0530 Results 24hrs Laboratory Tests Test 12/19/18 17:25 12/19/18 20:27 12/20/18 03:04 12/20/18 08:02 Bedside Glucose 341 H 236 H 250 H 193 Test 12/20/18 11:55 Bedside Glucose 204 Medications Medication Current Medications Ergocalciferol (Drisdol) 50,000 unit Sa PO Last administered on 12/14/18at 08:55; Admin Dose 50,000 UNIT; Start 11/09/18 at 09:00 Clonidine (Catapres) 0.1 mg Q6H PRN PO SBP>160 Last administered on 11/19/18 03:04; Admin Dose 0.1 MG; Start 11/04/18 at 09:00 IV Flush (NS 3 ml) 3 ml PER PROTOCOL IV ; Start 11/04/18 at 09:00 Ondansetron HCl (Zofran Inj) 4 mg Q6H PRN IV NAUSEA/VOMITING Last administered on 12/15/18at 16:52; Admin Dose 4 MG; Start 11/04/18 at 09:00 Acetaminophen (Tylenol Tab) 650 mg Q6H PRN PO .PAIN 1-3 OR TEMP Last administered on 12/14/18at 00:29; Admin Dose 650 MG; Start 11/04/18 at 09:00 Miscellaneous Information 1 ea NOTE XX ; Start 11/04/18 at 09:00 Glucose (Glutose) 15 gm Q15M PRN PO DECREASED GLUCOSE Last administered on 12/17/18at 06:56; Admin Dose 15 GM; Start 11/04/18 at 09:00 Glucose (Glutose) 22.5 gm Q15M PRN PO DECREASED GLUCOSE; Start 11/04/18 at 09:00 Dextrose (D50w Syringe) 25 ml Q15M PRN IV DECREASED GLUCOSE; Start 11/04/18 at 09:00 Dextrose (D50w Syringe) 50 ml Q15M PRN IV DECREASED GLUCOSE; Start 11/04/18 at 09:00 Glucagon (Glucagen) 1 mg Q15M PRN IM DECREASED GLUCOSE; Start 11/04/18 at 09:00 Glucose (Glutose) 15 gm Q15M PRN BUCCAL DECREASED GLUCOSE; Start 11/04/18 at 09:00 Miscellaneous Information Patients own medicat... BID@10,16 XX Last administered on 12/18/18at 10:32; Admin Dose 1 EA; Start 11/04/18 at 16:00 Hydralazine HCl (Apresoline) 10 mg Q4H PRN IV sbp >160 Last administered on 11/20/18at 14:44; Admin Dose 10 MG; Start 11/08/18 at 09:00 Atropine Sulfate (Atropine) 0.5 mg PRN PRN IV SYMPTOMATIC BRADYCARDIA; Start 11/11/18 at 23:00 Heparin Sodium (Porcine) (Heparin (5000 Units/1ml)) 5,000 unit BID SC Last administered on 12/20/18 08:08; Admin Dose 5,000 UNIT; Start 11/14/18 at 21:00 Bisacodyl (Dulcolax Supp) 10 mg DAILY PRN [place] CONSTIPATION Last administered on 11/14/18 16:43; Admin Dose 10 MG; Start 11/14/18 at 16:30 IV Flush (NS 10 ml) 10 ml PRN PRN IV FLUSH LINE; Start 11/15/18 at 15:30 Gabapentin (Neurontin Liquid) 300 mg BID PO Last administered on 12/20/18 09:30; Admin Dose 300 MG; Start 11/18/18 at 21:00 Ascorbic Acid (Vitamin C) 500 mg DAILY PO Last administered on 12/20/18 08:04; Admin Dose 500 MG; Start 11/20/18 at 09:00 Zinc Sulfate (Zinc Sulfate) 220 mg DAILY PO Last administered on 12/20/18 08:04; Admin Dose 220 MG; Start 11/20/18 at 09:00 Atorvastatin Calcium (Lipitor) 80 mg QHS PO Last administered on 12/19/18 20:36; Admin Dose 80 MG; Start 11/19/18 at 21:00 Lorazepam (Ativan) 0.5 mg Q6H PRN IV anxiety/agitation Last administered on 11/22/18 19:32; Admin Dose 0.5 MG; Start 11/22/18 at 11:00 Clopidogrel Bisulfate (plaVIX) 75 mg DAILY PO Last administered on 12/20/18 08:04; Admin Dose 75 MG; Start 11/23/18 at 09:00 Haloperidol (Haldol) 5 mg Q12H PRN IM agitation Last administered on 11/22/18 19:44; Admin Dose 5 MG; Start 11/22/18 at 14:30 Quetiapine Fumarate (Seroquel) 25 mg QHS PO Last administered on 12/19/18 20:36; Admin Dose 25 MG; Start 11/26/18 at 21:00 Polyethylene Glycol (Miralax) 17 gm DAILY PRN PO constipation Last administered on 12/06/18 06:10; Admin Dose 17 GM; Start 11/29/18 at 08:02 Aspirin (Aspirin) 81 mg DAILY PO Last administered on 12/20/18 08:04; Admin Dose 81 MG; Start 11/29/18 at 09:00 Famotidine (Pepcid) 20 mg DAILY PO Last administered on 12/20/18 08:04; Admin Dose 20 MG; Start 11/29/18 at 09:00 Senna/Docusate Sodium (Senokot-S) 1 tab BID PRN PO constipation Last administered on 12/09/18 08:07; Admin Dose 1 TAB; Start 11/29/18 at 08:30 Lisinopril (Zestril) 2.5 mg DAILY PO Last administered on 12/18/18 08:37; Admin Dose 2.5 MG; Start 12/03/18 at 09:00 Furosemide (Lasix) 20 mg DAILY@0600 PO Last administered on 12/20/18 05:31; Admin Dose 20 MG; Start 12/04/18 at 10:30 Insulin Aspart (Novolog Insulin Pen) NOVOLOG *MODERATE* ALGORITHM WITH MEALS BEDTIME SC Last administered on 12/20/18 11:58; Admin Dose 4 UNIT; Start 12/08/18 at 21:00 Simethicone (Mylicon) 80 mg Q6H PRN PO DISTENSION/GAS/BLOATING; Start 12/13/18 at 17:30 Tramadol HCl (Ultram) 50 mg Q6H PRN PO MODERATE PAIN LEVEL 4-6 Last administered on 12/19/18 20:37; Admin Dose 50 MG; Start 12/14/18 at 17:00 Meropenem/Sodium Chloride 50 ml @ 100 mls/hr Q8 IVPB Last administered on 12/20/18 05:31; Admin Dose 100 MLS/HR; Start 12/15/18 at 12:00 Lactobacillus Acidophilus/ Rhamnosus (Culturelle) 1 cap BID PO Last administered on 12/20/18 08:04; Admin Dose 1 CAP; Start 12/15/18 at 23:30 Loperamide HCl (Imodium Cap) 2 mg Q6H PRN PO DIARRHEA; Start 12/17/18 at 15:00 Insulin Glargine (Lantus) 35 units DAILY@0800 SC Last administered on 12/20/18 08:07; Admin Dose 35 UNITS; Start 12/18/18 at 08:00 Vancomycin HCl (Vanco Iv Per Pharmacy) VANCOMYCIN PER PHARMACY PER PROTOCOL XX ; Start 12/17/18 at 15:00 Vancomycin/Sodium Chloride 250 ml @ 83.333 mls/ hr Q24H IVPB Last administered on 12/19/18at 15:47; Admin Dose 83.333 MLS/HR; Start 12/18/18 at 16:00 Miscellaneous Information (*Rx Drug Level Order Reminder*) VANCOMYCIN TROUGH LE... 1500 ONCE XX ; Start 12/20/18 at 15:00; Stop 12/20/18 at 15:01 HERRERA OBRIEN NP Dec 20, 2018 12:23
--- NOTE | 2018-12-20 12:40 | PN ---
Date/Time of Note Date/Time of Note DATE: 12/20/18 TIME: 12:37 Assessment/Plan Lines/Catheters IV Catheter Type (from Nrs): Vora in Place (from Nrs): No Assessment/Plan Assessment/Plan Doing well s/p L groin exploration yesterday - lymphatic drainage has stopped Continue VAC change 3x/week, 125 continuous OK for d/c from my standpoint Antibiotics per ID He can followup with me in the wound center in a week after d/c Subjective 24 Hr Interval Summary No c/o. Exam/Review of Systems Vital Signs Vitals Vital Signs Date Temp Pulse Resp B/P (MAP) Pulse Ox O2 O2 Flow FiO2 Time Delivery Rate 12/20/18 99 124/63 96 09:28 (83) 12/20/18 98.0 14 08:00 12/19/18 Room Air 14:55 12/19/18 6.0 09:20 Intake and Output 12/19/18 12/19/18 12/20/18 1515:00 23:00 07:00 IntakeIntake Total 1120 ml 790 ml 550 ml OutputOutput Total 335 ml 5 ml BalanceBalance 785 ml 785 ml 550 ml Exam Free Text/Dictation L groin VAC in place, minimal drainage since surgery - the lymph leak has stopped, no erythema, good seal 2+ graft pulse, foot warm with 2+ PT pulse Results Result Diagram: 12/19/1830 12/19/18 0530 KLEVER FOREMAN MD Dec 20, 2018 12:40
[2018-12-20 14:00] VITALS: BP 137/66; PULSE 96; RESP 16
[2018-12-20] MEDS: AMOXICILLIN 500 MG CAP PO SCH ×2 (14:37→21:13)
--- NOTE | 2018-12-20 14:47 | CONS ---
Assessment/Plan Assessment/Plan Hospital Course (Demo Recall) IMPRESSION: 1. Preoperative evaluation prior to possible need for peripheral revascularization surgery.-neg trop x 3 and NL EF by echo with no sig valve abnl. Echo repeat 11/13 with NL EF 2. Peripheral arterial disease with nonhealing gangrenous changes in left toe ulceration. 3. Hypertension-now tolerating low dose ACEI but with verey labile BP. Will follow 4. Dyslipidemia. 5. Diabetes mellitus. 6. s/p cardiopulmonary arrest 7. Bradycardic intermittent by tele-now resolved 8. Positive troponin after arrest-? secondary to or primary to arrest, likely secondary to arrest, type 2 demand infarct, as no significant uptrend and now downtrended to negative 9. Resp failure-s/p extubation 10. CVA-Acute by MRI 11.Groin wound now post-op s/p groin exploration/ligation of leaking lymphatics with placement of VAC 12. Loose stools Recc: -Now on med-surg -Continue asa/plavix/statin for cva -serial ecg's -Continue now meropenem/amoxicillin and f/u bld cx's and exam -local wound care -follow volume status closely now back on daily PO lasix -follow MS closely -Continue now zestril mononotherapy at reduced dose and follow labile BP clsoely with possible need to increase dose. -metformin held, follow BS clsoely Consultation Date/Type/Reason Admit Date/Time Nov 04, 2018 at 07:34 Initial Consult Date 11/06/18 Type of Consult Cardiology Reason for Consultation HTN Requesting Provider: KARL WOOD MD Date/Time of Note DATE: 12/20/18 TIME: 14:41 Exam/Review of Systems Vital Signs Vitals Vital Signs Date Temp Pulse Resp B/P (MAP) Pulse Ox O2 O2 Flow FiO2 Time Delivery Rate 12/20/18 97.9 96 16 137/66 97 14:00 (89) 12/19/18 Room Air 14:55 12/19/18 6.0 09:20 Intake and Output 12/19/18 12/19/18 12/20/18 1515:00 23:00 07:00 IntakeIntake Total 1120 ml 790 ml 550 ml OutputOutput Total 335 ml 5 ml BalanceBalance 785 ml 785 ml 550 ml Exam Exam Review of Systems: CONSTITUTIONAL: No fevers, chills. PULMONARY: No sob CARDIOVASCULAR: No chest pain/palpitations GASTROINTESTINAL: No nausea/vomiting. GENITOURINARY: No hematuria/dysuria. MUSCULOSKELETAL: No myagias/arthalgias. PSYCHIATRIC: The patient denies depression. NEUROLOGIC: No weakness Constitutional: alert Psych: no complaints Head: normocephalic ENMT: mucosa pink and moist Neck: supple, jvd (9 cm water) Respiratory: clear to auscultation Cardiovascular: regular rate and rhythm Gastrointestinal: soft, non-tender Musculoskeletal: muscle tone (normal) Extremities: edema (none) Neurological: other (None) Labs Result Diagram: 12/19/18 0530 12/19/18 0530 Results 24hrs Laboratory Tests Test 12/19/18 17:25 12/19/18 20:27 12/20/18 03:04 12/20/18 08:02 Bedside Glucose 341 H 236 H 250 H 193 Test 12/20/18 11:55 Bedside Glucose 204 Medications Medications Current Medications Ergocalciferol (Drisdol) 50,000 unit Sa PO Last administered on 12/14/18at 08:55; Admin Dose 50,000 UNIT; Start 11/09/18 at 09:00 Clonidine (Catapres) 0.1 mg Q6H PRN PO SBP>160 Last administered on 11/19/18at 03:04; Admin Dose 0.1 MG; Start 11/04/18 at 09:00 IV Flush (NS 3 ml) 3 ml PER PROTOCOL IV ; Start 11/04/18 at 09:00 Ondansetron HCl (Zofran Inj) 4 mg Q6H PRN IV NAUSEA/VOMITING Last administered on 12/15/18at 16:52; Admin Dose 4 MG; Start 11/04/18 at 09:00 Acetaminophen (Tylenol Tab) 650 mg Q6H PRN PO .PAIN 1-3 OR TEMP Last administered on 12/14/18at 00:29; Admin Dose 650 MG; Start 11/04/18 at 09:00 Miscellaneous Information 1 ea NOTE XX ; Start 11/04/18 at 09:00 Glucose (Glutose) 15 gm Q15M PRN PO DECREASED GLUCOSE Last administered on 12/17/18at 06:56; Admin Dose 15 GM; Start 11/04/18 at 09:00 Glucose (Glutose) 22.5 gm Q15M PRN PO DECREASED GLUCOSE; Start 11/04/18 at 09:00 Dextrose (D50w Syringe) 25 ml Q15M PRN IV DECREASED GLUCOSE; Start 11/04/18 at 09:00 Dextrose (D50w Syringe) 50 ml Q15M PRN IV DECREASED GLUCOSE; Start 11/04/18 at 09:00 Glucagon (Glucagen) 1 mg Q15M PRN IM DECREASED GLUCOSE; Start 11/04/18 at 09:00 Glucose (Glutose) 15 gm Q15M PRN BUCCAL DECREASED GLUCOSE; Start 11/04/18 at 09:00 Miscellaneous Information Patients own medicat... BID@10,16 XX Last administered on 12/18/18at 10:32; Admin Dose 1 EA; Start 11/04/18 at 16:00 Hydralazine HCl (Apresoline) 10 mg Q4H PRN IV sbp >160 Last administered on 11/20/18at 14:44; Admin Dose 10 MG; Start 11/08/18 at 09:00 Atropine Sulfate (Atropine) 0.5 mg PRN PRN IV SYMPTOMATIC BRADYCARDIA; Start 11/11/18 at 23:00 Heparin Sodium (Porcine) (Heparin (5000 Units/1ml)) 5,000 unit BID SC Last administered on 12/20/18at 08:08; Admin Dose 5,000 UNIT; Start 11/14/18 at 21:00 Bisacodyl (Dulcolax Supp) 10 mg DAILY PRN [place] CONSTIPATION Last administered on 11/14/18at 16:43; Admin Dose 10 MG; Start 11/14/18 at 16:30 IV Flush (NS 10 ml) 10 ml PRN PRN IV FLUSH LINE; Start 11/15/18 at 15:30 Gabapentin (Neurontin Liquid) 300 mg BID PO Last administered on 12/20/18at 09:30; Admin Dose 300 MG; Start 11/18/18 at 21:00 Ascorbic Acid (Vitamin C) 500 mg DAILY PO Last administered on 12/20/18at 08:04; Admin Dose 500 MG; Start 11/20/18 at 09:00 Zinc Sulfate (Zinc Sulfate) 220 mg DAILY PO Last administered on 12/20/18at 0 8:04; Admin Dose 220 MG; Start 11/20/18 at 09:00 Atorvastatin Calcium (Lipitor) 80 mg QHS PO Last administered on 12/19/18 20:36; Admin Dose 80 MG; Start 11/19/18 at 21:00 Lorazepam (Ativan) 0.5 mg Q6H PRN IV anxiety/agitation Last administered on 11/22/18 19:32; Admin Dose 0.5 MG; Start 11/22/18 at 11:00 Clopidogrel Bisulfate (plaVIX) 75 mg DAILY PO Last administered on 12/20/18 08:04; Admin Dose 75 MG; Start 11/23/18 at 09:00 Haloperidol (Haldol) 5 mg Q12H PRN IM agitation Last administered on 11/22/18 19:44; Admin Dose 5 MG; Start 11/22/18 at 14:30 Quetiapine Fumarate (Seroquel) 25 mg QHS PO Last administered on 12/19/18 20:36; Admin Dose 25 MG; Start 11/26/18 at 21:00 Polyethylene Glycol (Miralax) 17 gm DAILY PRN PO constipation Last administered on 12/06/18 06:10; Admin Dose 17 GM; Start 11/29/18 at 08:02 Aspirin (Aspirin) 81 mg DAILY PO Last administered on 12/20/18 08:04; Admin Dose 81 MG; Start 11/29/18 at 09:00 Famotidine (Pepcid) 20 mg DAILY PO Last administered on 12/20/18 08:04; Admin Dose 20 MG; Start 11/29/18 at 09:00 Senna/Docusate Sodium (Senokot-S) 1 tab BID PRN PO constipation Last administered on 12/09/18 08:07; Admin Dose 1 TAB; Start 11/29/18 at 08:30 Lisinopril (Zestril) 2.5 mg DAILY PO Last administered on 12/18/18 08:37; Admin Dose 2.5 MG; Start 12/03/18 at 09:00 Furosemide (Lasix) 20 mg DAILY@0600 PO Last administered on 12/20/18 05:31; Admin Dose 20 MG; Start 12/04/18 at 10:30 Insulin Aspart (Novolog Insulin Pen) NOVOLOG *MODERATE* ALGORITHM WITH MEALS BEDTIME SC Last administered on 12/20/18 11:58; Admin Dose 4 UNIT; Start 12/08/18 at 21:00 Simethicone (Mylicon) 80 mg Q6H PRN PO DISTENSION/GAS/BLOATING; Start 12/13/18 at 17:30 Tramadol HCl (Ultram) 50 mg Q6H PRN PO MODERATE PAIN LEVEL 4-6 Last administered on 12/19/18at 20:37; Admin Dose 50 MG; Start 12/14/18 at 17:00 Meropenem/Sodium Chloride 50 ml @ 100 mls/hr Q8 IVPB Last administered on 12/20/18 14:37; Admin Dose 100 MLS/HR; Start 12/15/18 at 12:00 Lactobacillus Acidophilus/ Rhamnosus (Culturelle) 1 cap BID PO Last administered on 12/20/18 08:04; Admin Dose 1 CAP; Start 12/15/18 at 23:30 Loperamide HCl (Imodium Cap) 2 mg Q6H PRN PO DIARRHEA; Start 12/17/18 at 15:00 Insulin Glargine (Lantus) 35 units DAILY@0800 SC Last administered on 12/20/18 08:07; Admin Dose 35 UNITS; Start 12/18/18 at 08:00 Amoxicillin (Amoxicillin) 500 mg Q8 PO Last administered on 12/20/18 14:37; Admin Dose 500 MG; Start 12/20/18 at 14:00 KLEVER HUNT Dec 20, 2018 14:47
--- NOTE | 2018-12-20 15:28 | PN ---
Date/Time of Note Date/Time of Note DATE: 12/20/18 TIME: 15:26 Objective Vitals Vital Signs Date Temp Pulse Resp B/P (MAP) Pulse Ox O2 O2 Flow FiO2 Time Delivery Rate 12/20/18 97.9 96 16 137/66 97 14:00 (89) 12/19/18 Room Air 14:55 12/19/18 6.0 09:20 Intake and Output 12/19/18 12/19/18 12/20/18 1515:00 23:00 07:00 IntakeIntake Total 1120 ml 790 ml 550 ml OutputOutput Total 335 ml 5 ml BalanceBalance 785 ml 785 ml 550 ml Results Result Diagram: 12/19/18 0530 12/19/18 0530 Medications Medications Current Medications Ergocalciferol (Drisdol) 50,000 unit Sa PO Last administered on 12/14/18at 08:55 ; Admin Dose 50,000 UNIT; Start 11/09/18 at 09:00 Clonidine (Catapres) 0.1 mg Q6H PRN PO SBP>160 Last administered on 11/19/18at 03:04; Admin Dose 0.1 MG; Start 11/04/18 at 09:00 IV Flush (NS 3 ml) 3 ml PER PROTOCOL IV ; Start 11/04/18 at 09:00 Ondansetron HCl (Zofran Inj) 4 mg Q6H PRN IV NAUSEA/VOMITING Last administered on 12/15/18at 16:52; Admin Dose 4 MG; Start 11/04/18 at 09:00 Acetaminophen (Tylenol Tab) 650 mg Q6H PRN PO .PAIN 1-3 OR TEMP Last administered on 12/14/18at 00:29; Admin Dose 650 MG; Start 11/04/18 at 09:00 Miscellaneous Information 1 ea NOTE XX ; Start 11/04/18 at 09:00 Glucose (Glutose) 15 gm Q15M PRN PO DECREASED GLUCOSE Last administered on 12/17/18at 06:56; Admin Dose 15 GM; Start 11/04/18 at 09:00 Glucose (Glutose) 22.5 gm Q15M PRN PO DECREASED GLUCOSE; Start 11/04/18 at 09:00 Dextrose (D50w Syringe) 25 ml Q15M PRN IV DECREASED GLUCOSE; Start 11/04/18 at 09:00 Dextrose (D50w Syringe) 50 ml Q15M PRN IV DECREASED GLUCOSE; Start 11/04/18 at 09:00 Glucagon (Glucagen) 1 mg Q15M PRN IM DECREASED GLUCOSE; Start 11/04/18 at 09:00 Glucose (Glutose) 15 gm Q15M PRN BUCCAL DECREASED GLUCOSE; Start 11/04/18 at 09:00 Miscellaneous Information Patients own medicat... BID@10,16 XX Last administered on 12/18/18at 10:32; Admin Dose 1 EA; Start 11/04/18 at 16:00 Hydralazine HCl (Apresoline) 10 mg Q4H PRN IV sbp >160 Last administered on 11/20/18at 14:44; Admin Dose 10 MG; Start 11/08/18 at 09:00 Atropine Sulfate (Atropine) 0.5 mg PRN PRN IV SYMPTOMATIC BRADYCARDIA; Start 11/11/18 at 23:00 Heparin Sodium (Porcine) (Heparin (5000 Units/1ml)) 5,000 unit BID SC Last administered on 12/20/18at 08:08; Admin Dose 5,000 UNIT; Start 11/14/18 at 21:00 Bisacodyl (Dulcolax Supp) 10 mg DAILY PRN OR CONSTIPATION Last administered on 11/14/18at 16:43; Admin Dose 10 MG; Start 11/14/18 at 16:30 IV Flush (NS 10 ml) 10 ml PRN PRN IV FLUSH LINE; Start 11/15/18 at 15:30 Gabapentin (Neurontin Liquid) 300 mg BID PO Last administered on 12/20/18 09:30; Admin Dose 300 MG; Start 11/18/18 at 21:00 Ascorbic Acid (Vitamin C) 500 mg DAILY PO Last administered on 12/20/18 08:04; Admin Dose 500 MG; Start 11/20/18 at 09:00 Zinc Sulfate (Zinc Sulfate) 220 mg DAILY PO Last administered on 12/20/18 08:04; Admin Dose 220 MG; Start 11/20/18 at 09:00 Atorvastatin Calcium (Lipitor) 80 mg QHS PO Last administered on 12/19/18at 20:36; Admin Dose 80 MG; Start 11/19/18 at 21:00 Lorazepam (Ativan) 0.5 mg Q6H PRN IV anxiety/agitation Last administered on 11/22/18 19:32; Admin Dose 0.5 MG; Start 11/22/18 at 11:00 Clopidogrel Bisulfate (plaVIX) 75 mg DAILY PO Last administered on 12/20/18 08 :04; Admin Dose 75 MG; Start 11/23/18 at 09:00 Haloperidol (Haldol) 5 mg Q12H PRN IM agitation Last administered on 11/22/18 19:44; Admin Dose 5 MG; Start 11/22/18 at 14:30 Quetiapine Fumarate (Seroquel) 25 mg QHS PO Last administered on 12/19/18 20:36; Admin Dose 25 MG; Start 11/26/18 at 21:00 Polyethylene Glycol (Miralax) 17 gm DAILY PRN PO constipation Last administered on 12/06/18 06:10; Admin Dose 17 GM; Start 11/29/18 at 08:02 Aspirin (Aspirin) 81 mg DAILY PO Last administered on 12/20/18 08:04; Admin Dose 81 MG; Start 11/29/18 at 09:00 Famotidine (Pepcid) 20 mg DAILY PO Last administered on 12/20/18 08:04; Admin Dose 20 MG; Start 11/29/18 at 09:00 Senna/Docusate Sodium (Senokot-S) 1 tab BID PRN PO constipation Last administered on 12/09/18 08:07; Admin Dose 1 TAB; Start 11/29/18 at 08:30 Lisinopril (Zestril) 2.5 mg DAILY PO Last administered on 12/18/18 08:37; Admin Dose 2.5 MG; Start 12/03/18 at 09:00 Furosemide (Lasix) 20 mg DAILY@0600 PO Last administered on 12/20/18 05:31; Admin Dose 20 MG; Start 12/04/18 at 10:30 Insulin Aspart (Novolog Insulin Pen) NOVOLOG *MODERATE* ALGORITHM WITH MEALS BEDTIME SC Last administered on 12/20/18 11:58; Admin Dose 4 UNIT; Start 12/08/18 at 21:00 Simethicone (Mylicon) 80 mg Q6H PRN PO DISTENSION/GAS/BLOATING; Start 12/13/18 at 17:30 Tramadol HCl (Ultram) 50 mg Q6H PRN PO MODERATE PAIN LEVEL 4-6 Last administered on 12/19/18at 20:37; Admin Dose 50 MG; Start 12/14/18 at 17:00 Meropenem/Sodium Chloride 50 ml @ 100 mls/hr Q8 IVPB Last administered on 12/20/18at 14:37; Admin Dose 100 MLS/HR; Start 12/15/18 at 12:00 Lactobacillus Acidophilus/ Rhamnosus (Culturelle) 1 cap BID PO Last administered on 12/20/18at 08:04; Admin Dose 1 CAP; Start 12/15/18 at 23:30 Loperamide HCl (Imodium Cap) 2 mg Q6H PRN PO DIARRHEA; Start 12/17/18 at 15:00 Insulin Glargine (Lantus) 35 units DAILY@0800 SC Last administered on 12/20/18 08:07; Admin Dose 35 UNITS; Start 12/18/18 at 08:00 Amoxicillin (Amoxicillin) 500 mg Q8 PO Last administered on 12/20/18 14:37; Admin Dose 500 MG; Start 12/20/18 at 14:00 VTE Prophylaxis Risk score (from Ns)>0 risk: 4 [place] [facility] [place] SCD contraindication: other Lines/Catheters IV Catheter Type: Vora in Place: No Assessment/Plan Hospital Course Subjective Patient doing well, no acute complaints Objective Physical exam General: Patient is laying in bed responding to questions appropriately Mentation: Patient is alert and oriented Head: Normocephalic atraumatic Eyes: EOMI, pupils reactive to light Neck: Supple, nontender, midline Respiratory: Coarse to auscultation bilaterally Cardiovascular: regular rate, no obvious murmurs Gastrointestinal: non-tender to palpation, bowel sounds heard. Neurological: Moves all extremities spontaneously Skin: No new skin lesions, surgical site bandaged, CDI Assessment/Plan Assessment/Plan 1. Drainage from surgical site and groin area- stable status post surgical exploration the ground surgical site, graft did not need to be replaced, lymph drainage cleaned up by vascular surgeon - continue with wound vac with dressing changes - CM on board and arranging for wound vac changes 2. Groin wound infection, enterococcus and Coag neg staph - wound vac in place per [facility] recommendations - ID on board for antibiotic recommendations and will continue current treatment. 3. 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 - Continue local wound care - Podiatry on board and appreciate consultation. no further procedures scheduled at this time. will need to follow up as outpatient 4. Left frontal CVA - Neurology on board and appreciate recommendations - continue on aspirin and Plavix and statin 5. left-sided internal carotid artery stenosis - 25% per CT angiogram, continue aspirin, statin, Plavix per vascular surgeon 6. Acute hypoxic respiratory failure-resolved - doing well on room air - Pulmonology consultation appreciated 7. Cardiac arrest s/p ROSC - Cardiology on board and appreciate recommendations - ECHO with preserved EF 8. Severe peripheral vascular disease - s/p left femoral endarterectomy, iliofemoral bypass and femoral to posterior tibial bypass done on November 08, 2018 - Vascular surgery consultation appreciated. Continue aspirin and Plavix 9. Diabetes Mellitus - A1c noted - metformin dc'd due to possible diarrhea 10. Acute kidney injury- resolved - nephrology consultation appreciated 11. Essential HTN - Continue home medications at this time as tolerated 12. Peripheral neuropathy - cont. gabapentin 13. HLD - On statin 14. Chronic anemia - Stable H&H. Monitor - no need for transfusions at this time 15. Urinary retention, resolved - Urology on board and appreciate recommendations. - voiding without any issues 16. Disposition -monitor post surgical site exploration of graft and lymph drainage correction -Attempt SNF placement FRANTZ SCHWAB Dec 20, 2018 15:28
[2018-12-20 20:10] VITALS: BP 142/80; PULSE 100; RESP 19
[2018-12-20] MEDS: QUETIAPINE 25 MG TAB PO SCH (20:52)
[2018-12-20] MEDS: ATORVASTATIN 80 MG TAB PO SCH (20:52)
[2018-12-21 02:29] VITALS: BP 98/52; PULSE 99; RESP 20
[2018-12-21] MEDS: MEROPENEM 1 GM/50ML(PMX) 50 ML IVPB SCH ×3 (05:25→21:24)
[2018-12-21] MEDS: AMOXICILLIN 500 MG CAP PO SCH ×3 (05:25→21:24)
[2018-12-21] MEDS: FUROSEMIDE 20 MG TAB PO SCH (05:30)
[2018-12-21] MEDS: traMADol 50 MG TAB PO PRN (05:41)
[2018-12-21] MEDS: INSULIN GLARGINE [LANTus] (100 UNITS/ML) SYG SC SCH ×2 (08:00→09:05)
[2018-12-21 08:07] VITALS: BP 94/57; PULSE 100; RESP 19
[2018-12-21] MEDS: INSULIN ASPART [NOVOLOG] 3 ML PEN SC SCH ×5 (08:13→21:00)
[2018-12-21] MEDS: LISINOPRIL 5 MG TAB PO SCH (08:55)
[2018-12-21] MEDS: CLOPIDOGREL 75 MG TAB PO SCH (08:57)
[2018-12-21] MEDS: ASCORBIC ACID 500 MG TAB PO SCH (08:57)
[2018-12-21] MEDS: ASPIRIN 81 MG TAB PO SCH (08:57)
[2018-12-21] MEDS: FAMOTIDINE 20 MG TAB PO SCH (08:57)
[2018-12-21] MEDS: ZINC SULFATE 220 MG CAP PO SCH (08:57)
[2018-12-21] MEDS: LACTOBACILLUS RHAMNOSUS CAP PO SCH ×2 (08:57→21:09)
[2018-12-21] MEDS: GABAPENTIN (50 MG/ML PO SYG) PO SCH ×2 (08:58→21:10)
[2018-12-21] MEDS: HEPARIN 5,000 UNIT/1 ML VIAL SC SCH ×2 (08:58→21:11)
[2018-12-21] MEDS: ERGOCALCIFEROL 50,000 UNIT CAP PO SCH ×2 (09:00→10:49)
[2018-12-21 11:06] VITALS: BP 102/58; PULSE 98
[2018-12-21] MEDS ORDERED: MAGNESIUM OXIDE 400 MG TAB PO ONE (12:00)
--- NOTE | 2018-12-21 13:01 | PN ---
Date/Time of Note Date/Time of Note DATE: 12/21/18 TIME: 13:01 Objective Vitals Vital Signs Date Temp Pulse Resp B/P (MAP) Pulse Ox O2 O2 Flow FiO2 Time Delivery Rate 12/21/18 98 102/58 11:06 (73) 12/21/18 98.8 19 95 Room Air 08:07 12/19/18 6.0 09:20 Intake and Output 12/20/18 12/20/18 12/21/18 1515:00 23:00 07:00 IntakeIntake Total 1080 ml 700 ml 400 ml OutputOutput Total 5 ml BalanceBalance 1080 ml 700 ml 395 ml Results Result Diagram: 12/21/18 0600 12/21/18 0600 Medications Medications Current Medications Ergocalciferol (Drisdol) 50,000 unit Sa PO Last administered on 12/21/18at 10:49; Admin Dose 50,000 UNIT; Start 11/09/18 at 09:00 Clonidine (Catapres) 0.1 mg Q6H PRN PO SBP>160 Last administered on 11/19/18at 03:04; Admin Dose 0.1 MG; Start 11/04/18 at 09:00 IV Flush (NS 3 ml) 3 ml PER PROTOCOL IV ; Start 11/04/18 at 09:00 Ondansetron HCl (Zofran Inj) 4 mg Q6H PRN IV NAUSEA/VOMITING Last administered on 12/15/18at 16:52; Admin Dose 4 MG; Start 11/04/18 at 09:00 Acetaminophen (Tylenol Tab) 650 mg Q6H PRN PO .PAIN 1-3 OR TEMP Last administered on 12/14/18at 00:29; Admin Dose 650 MG; Start 11/04/18 at 09:00 Miscellaneous Information 1 ea NOTE XX ; Start 11/04/18 at 09:00 Glucose (Glutose) 15 gm Q15M PRN PO DECREASED GLUCOSE Last administered on 12/17/18at 06:56; Admin Dose 15 GM; Start 11/04/18 at 09:00 Glucose (Glutose) 22.5 gm Q15M PRN PO DECREASED GLUCOSE; Start 11/04/18 at 09:00 Dextrose (D50w Syringe) 25 ml Q15M PRN IV DECREASED GLUCOSE; Start 11/04/18 at 09:00 Dextrose (D50w Syringe) 50 ml Q15M PRN IV DECREASED GLUCOSE; Start 11/04/18 at 09:00 Glucagon (Glucagen) 1 mg Q15M PRN IM DECREASED GLUCOSE; Start 11/04/18 at 09:00 Glucose (Glutose) 15 gm Q15M PRN BUCCAL DECREASED GLUCOSE; Start 11/04/18 at 09:00 Miscellaneous Information Patients own medicat... BID@10,16 XX Last administered on 12/18/18at 10:32; Admin Dose 1 EA; Start 11/04/18 at 16:00 Hydralazine HCl (Apresoline) 10 mg Q4H PRN IV sbp >160 Last administered on 11/20/18 14:44; Admin Dose 10 MG; Start 11/08/18 at 09:00 Atropine Sulfate (Atropine) 0.5 mg PRN PRN IV SYMPTOMATIC BRADYCARDIA; Start 11/11/18 at 23:00 Heparin Sodium (Porcine) (Heparin (5000 Units/1ml)) 5,000 unit BID SC Last administered on 12/21/18 08:58; Admin Dose 5,000 UNIT; Start 11/14/18 at 21:00 Bisacodyl (Dulcolax Supp) 10 mg DAILY PRN [place] CONSTIPATION Last administered on 11/14/18 16:43; Admin Dose 10 MG; Start 11/14/18 at 16:30 IV Flush (NS 10 ml) 10 ml PRN PRN IV FLUSH LINE; Start 11/15/18 at 15:30 Gabapentin (Neurontin Liquid) 300 mg BID PO Last administered on 12/21/18 08:58; Admin Dose 300 MG; Start 11/18/18 at 21:00 Ascorbic Acid (Vitamin C) 500 mg DAILY PO Last administered on 12/21/18 08:57; Admin Dose 500 MG; Start 11/20/18 at 09:00 Zinc Sulfate (Zinc Sulfate) 220 mg DAILY PO Last administered on 12/21/18 08:57; Admin Dose 220 MG; Start 11/20/18 at 09:00 Atorvastatin Calcium (Lipitor) 80 mg QHS PO Last administered on 12/20/18 20:52; Admin Dose 80 MG; Start 11/19/18 at 21:00 Lorazepam (Ativan) 0.5 mg Q6H PRN IV anxiety/agitation Last administered on 11/22/18 19:32; Admin Dose 0.5 MG; Start 11/22/18 at 11:00 Clopidogrel Bisulfate (plaVIX) 75 mg DAILY PO Last administered on 12/21/18 08:57; Admin Dose 75 MG; Start 11/23/18 at 09:00 Haloperidol (Haldol) 5 mg Q12H PRN IM agitation Last administered on 11/22/18 19:44; Admin Dose 5 MG; Start 11/22/18 at 14:30 Quetiapine Fumarate (Seroquel) 25 mg QHS PO Last administered on 12/20/18 20:52; Admin Dose 25 MG; Start 11/26/18 at 21:00 Polyethylene Glycol (Miralax) 17 gm DAILY PRN PO constipation Last administered on 12/06/18 06:10; Admin Dose 17 GM; Start 11/29/18 at 08:02 Aspirin (Aspirin) 81 mg DAILY PO Last administered on 12/21/18 08:57; Admin Dose 81 MG; Start 11/29/18 at 09:00 Famotidine (Pepcid) 20 mg DAILY PO Last administered on 12/21/18 08:57; Admin Dose 20 MG; Start 11/29/18 at 09:00 Senna/Docusate Sodium (Senokot-S) 1 tab BID PRN PO constipation Last administered on 12/09/18 08:07; Admin Dose 1 TAB; Start 11/29/18 at 08:30 Lisinopril (Zestril) 2.5 mg DAILY PO Last administered on 12/18/18 08:37; Admin Dose 2.5 MG; Start 12/03/18 at 09:00 Furosemide (Lasix) 20 mg DAILY@0600 PO Last administered on 12/21/18 05:30; Admin Dose 20 MG; Start 12/04/18 at 10:30 Insulin Aspart (Novolog Insulin Pen) NOVOLOG *MODERATE* ALGORITHM WITH MEALS BEDTIME SC Last administered on 12/21/18 12:20; Admin Dose 10 UNIT; Start 11/19 06/08 at 21:00 Simethicone (Mylicon) 80 mg Q6H PRN PO DISTENSION/GAS/BLOATING; Start 12/13/18 at 17:30 Tramadol HCl (Ultram) 50 mg Q6H PRN PO MODERATE PAIN LEVEL 4-6 Last administered on 12/21/18at 05:41; Admin Dose 50 MG; Start 12/14/18 at 17:00 Meropenem/Sodium Chloride 50 ml @ 100 mls/hr Q8 IVPB Last administered on 12/21/18at 05:25; Admin Dose 100 MLS/HR; Start 12/15/18 at 12:00 Lactobacillus Acidophilus/ Rhamnosus (Culturelle) 1 cap BID PO Last administered on 12/21/18at 08:57; Admin Dose 1 CAP; Start 12/15/18 at 23:30 Loperamide HCl (Imodium Cap) 2 mg Q6H PRN PO DIARRHEA; Start 12/17/18 at 15:00 Amoxicillin (Amoxicillin) 500 mg Q8 PO Last administered on 12/21/18at 05:25; Admin Dose 500 MG; Start 12/20/18 at 14:00 Insulin Glargine (Lantus) 40 units DAILY@0800 SC ; Start 12/22/18 at 08:00 Insulin Aspart (Novolog Insulin Pen) 4 unit WITH MEALS SC ; Start 12/21/18 at 17:35 VTE Prophylaxis Risk score (from Ns)>0 risk: 2 SCD applied (from [facility] [place] Yes Lines/Catheters IV Catheter Type: Vora in Place: No Assessment/Plan Hospital Course Subjective Patient doing well, no acute complaints Objective Physical exam General: Patient is laying in bed responding to questions appropriately Mentation: Patient is alert and oriented Head: Normocephalic atraumatic Eyes: EOMI, pupils reactive to light Neck: Supple, nontender, midline Respiratory: Coarse to auscultation bilaterally Cardiovascular: regular rate, no obvious murmurs Gastrointestinal: non-tender to palpation, bowel sounds heard. Neurological: Moves all extremities spontaneously Skin: No new skin lesions, surgical site bandaged, CDI Assessment/Plan Assessment/Plan 1. Drainage from surgical site and groin area- stable status post surgical exploration the ground surgical site, graft did not need to be replaced, lymph drainage cleaned up by vascular surgeon - continue with wound vac with dressing changes - CM on board and arranging for wound vac changes 2. Groin wound infection, enterococcus and Coag neg staph - wound vac in place per [facility] recommendations - ID on board for antibiotic recommendations and will continue current treatment. 3. 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 - Continue local wound care - Podiatry on board and appreciate consultation. no further procedures scheduled at this time. will need to follow up as outpatient 4. Left frontal CVA - Neurology on board and appreciate recommendations - continue on aspirin and Plavix and statin 5. left-sided internal carotid artery stenosis - 25% per CT angiogram, continue aspirin, statin, Plavix per vascular surgeon 6. Acute hypoxic respiratory failure-resolved - doing well on room air - Pulmonology consultation appreciated 7. Cardiac arrest s/p ROSC - Cardiology on board and appreciate recommendations - ECHO with preserved EF 8. Severe peripheral vascular disease - s/p left femoral endarterectomy, iliofemoral bypass and femoral to posterior tibial bypass done on November 08, 2018 - Vascular surgery consultation appreciated. Continue aspirin and Plavix 9. Diabetes Mellitus - A1c noted - metformin dc'd due to possible diarrhea 10. Acute kidney injury- resolved - nephrology consultation appreciated 11. Essential HTN - Continue home medications at this time as tolerated 12. Peripheral neuropathy - cont. gabapentin 13. HLD - On statin 14. Chronic anemia - Stable H&H. Monitor - no need for transfusions at this time 15. Urinary retention, resolved - Urology on board and appreciate recommendations. - voiding without any issues 16. Disposition -monitor post surgical site exploration of graft and lymph drainage correction -Attempt SNF placement FRANTZ SCHWAB Dec 21, 2018 13:01
[2018-12-21 14:00] VITALS: BP 113/53; PULSE 84; RESP 18
--- NOTE | 2018-12-21 16:12 | CONS ---
Assessment/Plan Assessment/Plan Hospital Course (Demo Recall) Subjective Pt sleeping Unable to obtain ROS as pt sleeping, allowing him to rest Medications and allergies reviewed Past medical, surgical, family and social history reviewed. Objective General: WD/WN, NAD, thin HEENT: NC/AT, PERRLA, dry mucus membranes CV: RRR, grade 1/6 systolic murmur, S1/S2, no S3/S4, no JVD, no carotid bruits Respiratory: CTAB, no W/C/R, non-labored breathing GI: abdomen soft, NT/ND, normoactive bowel sounds Vascular: extremities are warm, 2+ radial/DT/PT pulses bilaterally, no edema Assessment & Plan MPRESSION: 1. Preoperative evaluation prior to possible need for peripheral revascularization surgery.-neg trop x 3 and NL EF by echo with no sig valve abnl. Echo repeat 11/13 with NL EF 2. Peripheral arterial disease with nonhealing gangrenous changes in left toe ulceration. 3. Hypertension-now tolerating low dose ACEI but with very labile BP. Will follow 4. Dyslipidemia. 5. Diabetes mellitus. 6. s/p cardiopulmonary arrest 7. Bradycardic intermittent by tele-now resolved 8. Positive troponin after arrest-? secondary to or primary to arrest, likely secondary to arrest, type 2 demand infarct, as no significant uptrend and now downtrended to negative 9. Resp failure-s/p extubation 10. CVA-Acute by MRI 11.Groin wound now post-op s/p groin exploration/ligation of leaking lymphatics with placement of VAC 12. Loose stools Recc: -Now on med-surg -Continue asa/plavix/statin for cva -serial ecg's -Continue now meropenem/amoxicillin and f/u bld cx's and exam -local wound care -follow volume status closely now back on daily PO lasix -follow MS closely -Continue now zestril mononotherapy at reduced dose and follow labile BP clsoely with possible need to increase dose. -metformin held, follow BS clsoely Consultation Date/Type/Reason Admit Date/Time Nov 04, 2018 at 07:34 Initial Consult Date 11/11/18 Type of Consult Cardiology Requesting Provider: KARL WOOD MD Date/Time of Note DATE: 12/21/18 TIME: 16:09 Exam/Review of Systems Vital Signs Vitals Vital Signs Date Temp Pulse Resp B/P (MAP) Pulse Ox O2 O2 Flow FiO2 Time Delivery Rate 12/21/18 98.8 84 18 113/53 96 Room Air 14:00 (73) 12/19/18 6.0 09:20 Intake and Output 12/20/18 12/20/18 12/21/18 1515:00 23:00 07:00 IntakeIntake Total 1080 ml 700 ml 400 ml OutputOutput Total 5 ml BalanceBalance 1080 ml 700 ml 395 ml Labs Result Diagram: 12/21/18 0600 12/21/18 0600 Results 24hrs Laboratory Tests Test 12/20/18 17:10 12/20/18 20:56 12/21/18 01:19 12/21/18 06:00 Bedside Glucose 310 H 338 H 229 H White Blood Count 8.2 Red Blood Count 3.13 L Hemoglobin 9.6 L Hematocrit 28.3 L Mean Corpuscular Volume 90.4 Mean Corpuscular 30.7 Hemoglobin Mean Corpuscular 33.9 Hemoglobin Concent Red Cell Distribution 13.9 Width Platelet Count 179 Mean Platelet Volume 9.9 Immature Granulocytes % 0.700 H Neutrophils % 54.6 Lymphocytes % 28.5 Monocytes % 12.7 H Eosinophils % 2.6 Basophils % 0.9 Nucleated Red Blood 0.0 Cells % Immature Granulocytes # 0.060 H Neutrophils # 4.5 Lymphocytes # 2.3 Monocytes # 1.0 H Eosinophils # 0.2 Basophils # 0.1 Nucleated Red Blood 0.0 Cells # Sodium Level 133 L Potassium Level 4.3 Chloride Level 97 Carbon Dioxide Level 29 Anion Gap 7 Blood Urea Nitrogen 13 Creatinine 0.86 Est Glomerular Filtrat Rate mL/min Glucose Level 258 H Calcium Level 8.8 Phosphorus Level 3.1 Magnesium Level 1.5 L Test 12/21/18 08:11 12/21/18 12:17 Bedside Glucose 236 H 302 H Medications Medications Current Medications Ergocalciferol (Drisdol) 50,000 unit Sa PO Last administered on 12/21/18at 10:49; Admin Dose 50,000 UNIT; Start 11/09/18 at 09:00 Clonidine (Catapres) 0.1 mg Q6H PRN PO SBP>160 Last administered on 11/19/18at 03:04; Admin Dose 0.1 MG; Start 11/04/18 at 09:00 IV Flush (NS 3 ml) 3 ml PER PROTOCOL IV ; Start 11/04/18 at 09:00 Ondansetron HCl (Zofran Inj) 4 mg Q6H PRN IV NAUSEA/VOMITING Last administered on 12/15/18at 16:52; Admin Dose 4 MG; Start 11/04/18 at 09:00 Acetaminophen (Tylenol Tab) 650 mg Q6H PRN PO .PAIN 1-3 OR TEMP Last administered on 12/14/18at 00:29; Admin Dose 650 MG; Start 11/04/18 at 09:00 Miscellaneous Information 1 ea NOTE XX ; Start 11/04/18 at 09:00 Glucose (Glutose) 15 gm Q15M PRN PO DECREASED GLUCOSE Last administered on 12/17/18at 06:56; Admin Dose 15 GM; Start 11/04/18 at 09:00 Glucose (Glutose) 22.5 gm Q15M PRN PO DECREASED GLUCOSE; Start 11/04/18 at 09:00 Dextrose (D50w Syringe) 25 ml Q15M PRN IV DECREASED GLUCOSE; Start 11/04/18 at 09:00 Dextrose (D50w Syringe) 50 ml Q15M PRN IV DECREASED GLUCOSE; Start 11/04/18 at 09:00 Glucagon (Glucagen) 1 mg Q15M PRN IM DECREASED GLUCOSE; Start 11/04/18 at 09:00 Glucose (Glutose) 15 gm Q15M PRN BUCCAL DECREASED GLUCOSE; Start 11/04/18 at 09:00 Miscellaneous Information Patients own medicat... BID@10,16 XX Last administered on 12/18/18at 10:32; Admin Dose 1 EA; Start 11/04/18 at 16:00 Hydralazine HCl (Apresoline) 10 mg Q4H PRN IV sbp >160 Last administered on 11/20/18at 14:44; Admin Dose 10 MG; Start 11/08/18 at 09:00 Atropine Sulfate (Atropine) 0.5 mg PRN PRN IV SYMPTOMATIC BRADYCARDIA; Start 11/11/18 at 23:00 Heparin Sodium (Porcine) (Heparin (5000 Units/1ml)) 5,000 unit BID SC Last administered on 12/21/18at 08:58; Admin Dose 5,000 UNIT; Start 11/14/18 at 21:00 Bisacodyl (Dulcolax Supp) 10 mg DAILY PRN [place] CONSTIPATION Last administered on 11/14/18 16:43; Admin Dose 10 MG; Start 11/14/18 at 16:30 IV Flush (NS 10 ml) 10 ml PRN PRN IV FLUSH LINE; Start 11/15/18 at 15:30 Gabapentin (Neurontin Liquid) 300 mg BID PO Last administered on 12/21/18 08:58; Admin Dose 300 MG; Start 11/18/18 at 21:00 Ascorbic Acid (Vitamin C) 500 mg DAILY PO Last administered on 12/21/18 08:57; Admin Dose 500 MG; Start 11/20/18 at 09:00 Zinc Sulfate (Zinc Sulfate) 220 mg DAILY PO Last administered on 12/21/18 08:57; Admin Dose 220 MG; Start 11/20/18 at 09:00 Atorvastatin Calcium (Lipitor) 80 mg QHS PO Last administered on 12/20/18 20:52; Admin Dose 80 MG; Start 11/19/18 at 21:00 Lorazepam (Ativan) 0.5 mg Q6H PRN IV anxiety/agitation Last administered on 11/22/18 19:32; Admin Dose 0.5 MG; Start 11/22/18 at 11:00 Clopidogrel Bisulfate (plaVIX) 75 mg DAILY PO Last administered on 12/21/18 08:57; Admin Dose 75 MG; Start 11/23/18 at 09:00 Haloperidol (Haldol) 5 mg Q12H PRN IM agitation Last administered on 11/22/18 19:44; Admin Dose 5 MG; Start 11/22/18 at 14:30 Quetiapine Fumarate (Seroquel) 25 mg QHS PO Last administered on 12/20/18 20:52; Admin Dose 25 MG; Start 11/26/18 at 21:00 Polyethylene Glycol (Miralax) 17 gm DAILY PRN PO constipation Last administered on 12/06/18 06:10; Admin Dose 17 GM; Start 11/29/18 at 08:02 Aspirin (Aspirin) 81 mg DAILY PO Last administered on 12/21/18 08:57; Admin Dose 81 MG; Start 11/29/18 at 09:00 Famotidine (Pepcid) 20 mg DAILY PO Last administered on 12/21/18 08:57; Admin Dose 20 MG; Start 11/29/18 at 09:00 Senna/Docusate Sodium (Senokot-S) 1 tab BID PRN PO constipation Last administered on 12/09/18 08:07; Admin Dose 1 TAB; Start 11/29/18 at 08:30 Lisinopril (Zestril) 2.5 mg DAILY PO Last administered on 12/18/18 08:37; Admin Dose 2.5 MG; Start 12/03/18 at 09:00 Furosemide (Lasix) 20 mg DAILY@0600 PO Last administered on 12/21/18 05:30; Admin Dose 20 MG; Start 12/04/18 at 10:30 Insulin Aspart (Novolog Insulin Pen) NOVOLOG *MODERATE* ALGORITHM WITH MEALS BEDTIME SC Last administered on 12/21/18 12:20; Admin Dose 10 UNIT; Start 12/08/18 at 21:00 Simethicone (Mylicon) 80 mg Q6H PRN PO DISTENSION/GAS/BLOATING; Start 12/13/18 at 17:30 Tramadol HCl (Ultram) 50 mg Q6H PRN PO MODERATE PAIN LEVEL 4-6 Last adminis tered on 12/21/18 05:41; Admin Dose 50 MG; Start 12/14/18 at 17:00 Meropenem/Sodium Chloride 50 ml @ 100 mls/hr Q8 IVPB Last administered on 12/21/18 13:46; Admin Dose 100 MLS/HR; Start 12/15/18 at 12:00 Lactobacillus Acidophilus/ Rhamnosus (Culturelle) 1 cap BID PO Last administered on 12/21/18 08:57; Admin Dose 1 CAP; Start 12/15/18 at 23:30 Loperamide HCl (Imodium Cap) 2 mg Q6H PRN PO DIARRHEA; Start 12/17/18 at 15:00 Amoxicillin (Amoxicillin) 500 mg Q8 PO Last administered on 12/21/18 13:46; Admin Dose 500 MG; Start 12/20/18 at 14:00 Insulin Glargine (Lantus) 40 units DAILY@0800 SC ; Start 12/22/18 at 08:00 Insulin Aspart (Novolog Insulin Pen) 4 unit WITH MEALS SC ; Start 12/21/18 at 17:35 ZOHREH WONG DO Dec 21, 2018 16:12
--- NOTE | 2018-12-21 17:48 | CONS ---
Assessment/Plan Assessment/Plan Hospital Course (Demo Recall) ID PROGRESS NOTE CURRENT ABX: DAY # => MERREM s/p Zyvox S/P Levaquin + Merrem + Diflucan S/P Daptomycin + Ceftriaxone 12/21/18 0600 12/21/18 0600 24H INTERVAL SUMMARY * POD # 2-> S/P 12/19/2018 => Left groin exploration, ligation of multiple leaking lymphatics and VAC placement. * POSTOPERATIVE DIAGNOSIS: Left groin lymphatic leak, infection status post iliofemoral and fem-pop bypass. * Patient is a vasculopath with carotid, coronary, peripheral arterial disease * No fevers, WBC normalized, wound vac in place -- no new issues, no questions, no complaints MICRO * 12/15/18 (-) c.dIFF * 12/13/18 GROIN WOUND CX: WOUND CULTURE Final Organism 1 K PNEUMO ESBL QUANTITY 1+ . MULTI DRUG RESISTANT ORGANISM Organism 2 ENTEROCOCCUS SPECIES QUANTITY ISOLATED FROM BROTH ONLY KLEB PNEUM KLEB PNEUM ENT SPS M.I.C. RX M.I.C. RX M.I.C. RX --------- --- --------- --- --------- --- AMIKACIN 8 S AMPICILLIN <=2 S CEFAZOLIN R CEFEPIME >=64 R CEFOTAXIME R CIPROFLOXACIN >=4 R GENTAMICIN >=16 R LEVOFLOXACIN >=8 R MEROPENEM 0.38 S PENICILLIN-G 1 S VANCOMYCIN S TOBRAMYCIN >=16 R TRIMETHOPRIM/SULFAMETHOXAZOLE >=320 R PIPERACILLIN/TAZOBACTAM >=128 R * 12/05/18 BCX (-) * 12/04/18 GROIN CX: WOUND CULTURE Final Organism 1 COAGULASE NEGATIVE STAPH QUANTITY 1+ Organism 2 ENTEROCOC CASSELIFLAVUS(GRP D) QUANTITY SCANT GROWTH RE: ENTEROCOCCUS CASSELIFLAVUS VanC genotype resistance is an intrinsic characteristic of Enterococcus gallinarum and Enterococcus casseliflavus strain, not a true Vancomycin reistant enterococcus (VRE). The need to differentiate VanC strain is clinically significant for therapeutic infection control and surveillance reason. REGINA SHIPLEY(Bonnie) M.I.C. RX M.I.C. RX --------- --- --------- --- AMPICILLIN <=2 S CEFAZOLIN R CIPROFLOXACIN >=8 R CLINDAMYCIN <=0.25 S DOXYCYCLINE S ERYTHROMYCIN >=8 R LEVOFLOXACIN >=8 R OXACILLIN >=4 R PENICILLIN-G >=0.5 R 2 S RIFAMPIN <=0.5 S VANCOMYCIN 1 S R * 12/02/18 BCx 1/2 CoNS * 11/14/18 TRACH CX: RESPIRATORY CULTURE Final Organism 1 ALEX ALBICANS QUANTITY SCANT GROWTH Organism 2 NORMAL RESPIRATORY LEO QUANTITY SCANT GROWTH * 11/11/18 TOE WOUND CX WOUND CULTURE Final Organism 1 K PNEUMO ESBL QUANTITY 4+ . MULTI DRUG RESISTANT ORGANISM Organism 2 STENOTROPHOMONAS MALTOPHILIA QUANTITY 4+ KLEB PNEUM KLEB PNEUM STENMAL M.I.C. RX M.I.C. RX M.I.C. RX --------- --- --------- --- --------- --- AMIKACIN 16 S CEFAZOLIN R CEFEPIME >=64 R CEFOTAXIME R CIPROFLOXACIN >=4 R GENTAMICIN >=16 R LEVOFLOXACIN I 0.5 S MEROPENEM 0.064 S TOBRAMYCIN >=16 R TRIMETHOPRIM/SULFAMETHOXAZOLE >=320 R <=20 S PIPERACILLIN/TAZOBACTAM 32 I DIAGNOSTIC IMAGING * 11/20/18 MRI BRAIN: IMPRESSION: Punctate acute infarct in the left posterior frontal lobe. Hypodense focus in the right thalamus on the comparison CT corresponds to an old lacunar infarct. Additional old infarcts in the bilateral frontal lobes and jennifer. Background parenchymal volume loss with chronic microvascular ischemic disease. Bilateral mastoid effusions. * 11/20/18 CAROTID US: Slightly increased velocity in the left proximal ICA, suspicious for a 50-69% stenosis. - validated velocity measurements with angiographic measurements, velocity criteria are extrapolated from diameter data as defined by the Society of Radiologists in Ultrasound Consensus Conference Radiology 2003; 229;340-346. This study does indirectly reference the measurement of the distal ICA diameter as the denominator for stenosis measurement. Normal antegrade flow in the vertebral arteries bilaterally. Mild to moderate calcific plaque bilaterally, left greater than right. * 11/19/18 CT BRAIN: CT of the brain yesterday revealed new 8 mm infarct in the left thalamus no acute intracranial hemorrhage. Please see full note in the chart * 11/08/18 CXR: Worsening diffuse bilateral reticular nodular infiltrates. PHYSICAL EXAMINATION = GENERAL: VSS, NAD HEENT: AT, NC, NECK: Supple, CHEST: Rise symmetrical HEART: Pulse RRR ABDOMEN: Benign EXTREMITIES: Warm, dry == left foot DSG C/D/I SKIN: No rash, no diaphoresis ID ASSESSMENT 72 yo M admit with: 1. Left groin lymphatic leak, infection status post iliofemoral and fem-pop bypass. * POD # 2-> S/P 12/19/2018 => Left groin exploration, ligation of multiple leaking lymphatics and VAC placement. 2. Peripheral arterial disease W/ left foot gangrene * POD #-> S/P 11/08/18 Left femoral endarterectomy w/Left iliofemoral bypass, and Left femoral->posterior tibial bypass * Left foot gangrenePOD -> s/p 11/22/18 FOOT DEBRIDEMENT 3. Diffuse pulmonary infiltrates == DDx CHF (STG I diastolic HF) w/possible superimposed HCAP * Per discussion w/Dr Ardon CT shares appearance of septic emboli 4. Hypertension w/HTN heart disease 5. Diabetes w/complications of peripheral neuropathy, vasculopathy 6. History of left foot second toe amputation 7. Acute kidney injury due to "NAVID" contrast induced necropathy post angiogram 8. Acute encephalopathy w/CT & MRI findings of new CVA superimposed on old prior infarcts 9. s/p Bilateral mastoiditis (-)MRSA Nares ABX ALLERGIES: KNDA INVASIVES: PIV CURRENT ABX: DAY # MERREM s/p Zyvox S/P Levaquin + Merrem + Diflucan S/P Daptomycin + Ceftriaxone ID RECOMMENDATIONS/PLAN: 1. Started on MERREM for ESBL groin infection==> Left groin wound vac in place . Consultation Date/Type/Reason Admit Date/Time Nov 04, 2018 at 07:34 Initial Consult Date Requesting Provider: KARL WOOD MD Date/Time of Note DATE: 12/21/18 TIME: 17:31 Exam/Review of Systems Exam Vitals Vital Signs Date Temp Pulse Resp B/P (MAP) Pulse Ox O2 O2 Flow FiO2 Time Delivery Rate 12/21/18 98.8 84 18 113/53 96 Room Air 14:00 (73) 12/19/18 6.0 09:20 Intake and Output 12/20/18 12/20/18 12/21/18 1515:00 23:00 07:00 IntakeIntake Total 1080 ml 700 ml 400 ml OutputOutput Total 5 ml BalanceBalance 1080 ml 700 ml 395 ml Results Result Diagram: 12/21/18 0600 12/21/18 0600 Results 24hrs Laboratory Tests Test 12/20/18 20:56 12/21/18 01:19 12/21/18 06:00 12/21/18 08:11 Bedside Glucose 338 H 229 H 236 H White Blood Count 8.2 Red Blood Count 3.13 L Hemoglobin 9.6 L Hematocrit 28.3 L Mean Corpuscular Volume 90.4 Mean Corpuscular 30.7 Hemoglobin Mean Corpuscular 33.9 Hemoglobin Concent Red Cell Distribution 13.9 Width Platelet Count 179 Mean Platelet Volume 9.9 Immature Granulocytes % 0.700 H Neutrophils % 54.6 Lymphocytes % 28.5 Monocytes % 12.7 H Eosinophils % 2.6 Basophils % 0.9 Nucleated Red Blood 0.0 Cells % Immature Granulocytes # 0.060 H Neutrophils # 4.5 Lymphocytes # 2.3 Monocytes # 1.0 H Eosinophils # 0.2 Basophils # 0.1 Nucleated Red Blood 0.0 Cells # Sodium Level 133 L Potassium Level 4.3 Chloride Level 97 Carbon Dioxide Level 29 Anion Gap 7 Blood Urea Nitrogen 13 Creatinine 0.86 Est Glomerular Filtrat Rate mL/min Glucose Level 258 H Calcium Level 8.8 Phosphorus Level 3.1 Magnesium Level 1.5 L Test 12/21/18 12:17 8/3/19 17:23 Bedside Glucose 302 H 149 Medications Medication Current Medications Ergocalciferol (Drisdol) 50,000 unit Sa PO Last administered on 12/21/18at 10:49; Admin Dose 50,000 UNIT; Start 11/09/18 at 09:00 Clonidine (Catapres) 0.1 mg Q6H PRN PO SBP>160 Last administered on 11/19/18at 03:04; Admin Dose 0.1 MG; Start 11/04/18 at 09:00 IV Flush (NS 3 ml) 3 ml PER PROTOCOL IV ; Start 11/04/18 at 09:00 Ondansetron HCl (Zofran Inj) 4 mg Q6H PRN IV NAUSEA/VOMITING Last administered on 12/15/18at 16:52; Admin Dose 4 MG; Start 11/04/18 at 09:00 Acetaminophen (Tylenol Tab) 650 mg Q6H PRN PO .PAIN 1-3 OR TEMP Last administered on 12/14/18at 00:29; Admin Dose 650 MG; Start 11/04/18 at 09:00 Miscellaneous Information 1 ea NOTE XX ; Start 11/04/18 at 09:00 Glucose (Glutose) 15 gm Q15M PRN PO DECREASED GLUCOSE Last administered on 12/17/18at 06:56; Admin Dose 15 GM; Start 11/04/18 at 09:00 Glucose (Glutose) 22.5 gm Q15M PRN PO DECREASED GLUCOSE; Start 11/04/18 at 09:00 Dextrose (D50w Syringe) 25 ml Q15M PRN IV DECREASED GLUCOSE; Start 11/04/18 at 09:00 Dextrose (D50w Syringe) 50 ml Q15M PRN IV DECREASED GLUCOSE; Start 11/04/18 at 09:00 Glucagon (Glucagen) 1 mg Q15M PRN IM DECREASED GLUCOSE; Start 11/04/18 at 09:00 Glucose (Glutose) 15 gm Q15M PRN BUCCAL DECREASED GLUCOSE; Start 11/04/18 at 09:00 Miscellaneous Information Patients own medicat... BID@,16 XX Last administered on 12/18/18at 10:32; Admin Dose 1 EA; Start 11/04/18 at 16:00 Hydralazine HCl (Apresoline) 10 mg Q4H PRN IV sbp >160 Last administered on 11/20/18 14:44; Admin Dose 10 MG; Start 11/08/18 at 09:00 Atropine Sulfate (Atropine) 0.5 mg PRN PRN IV SYMPTOMATIC BRADYCARDIA; Start 11/11/18 at 23:00 Heparin Sodium (Porcine) (Heparin (5000 Units/1ml)) 5,000 unit BID SC Last administered on 12/21/18 08:58; Admin Dose 5,000 UNIT; Start 11/14/18 at 21:00 Bisacodyl (Dulcolax Supp) 10 mg DAILY PRN [place] CONSTIPATION Last administered on 11/14/18 16:43; Admin Dose 10 MG; Start 11/14/18 at 16:30 IV Flush (NS 10 ml) 10 ml PRN PRN IV FLUSH LINE; Start 11/15/18 at 15:30 Gabapentin (Neurontin Liquid) 300 mg BID PO Last administered on 12/21/18 08:58; Admin Dose 300 MG; Start 11/18/18 at 21:00 Ascorbic Acid (Vitamin C) 500 mg DAILY PO Last administered on 12/21/18 08:57; Admin Dose 500 MG; Start 11/20/18 at 09:00 Zinc Sulfate (Zinc Sulfate) 220 mg DAILY PO Last administered on 12/21/18 08:57; Admin Dose 220 MG; Start 11/20/18 at 09:00 Atorvastatin Calcium (Lipitor) 80 mg QHS PO Last administered on 12/20/18 20:52; Admin Dose 80 MG; Start 11/19/18 at 21:00 Lorazepam (Ativan) 0.5 mg Q6H PRN IV anxiety/agitation Last administered on 11/22/18 19:32; Admin Dose 0.5 MG; Start 11/22/18 at 11:00 Clopidogrel Bisulfate (plaVIX) 75 mg DAILY PO Last administered on 12/21/18 08:57; Admin Dose 75 MG; Start 11/23/18 at 09:00 Haloperidol (Haldol) 5 mg Q12H PRN IM agitation Last administered on 11/22/18 19:44; Admin Dose 5 MG; Start 11/22/18 at 14:30 Quetiapine Fumarate (Seroquel) 25 mg QHS PO Last administered on 12/20/18 20:5 2; Admin Dose 25 MG; Start 11/26/18 at 21:00 Polyethylene Glycol (Miralax) 17 gm DAILY PRN PO constipation Last administered on 12/06/18 06:10; Admin Dose 17 GM; Start 11/29/18 at 08:02 Aspirin (Aspirin) 81 mg DAILY PO Last administered on 12/21/18 08:57; Admin Dose 81 MG; Start 11/29/18 at 09:00 Famotidine (Pepcid) 20 mg DAILY PO Last administered on 12/21/18 08:57; Admin Dose 20 MG; Start 11/29/18 at 09:00 Senna/Docusate Sodium (Senokot-S) 1 tab BID PRN PO constipation Last administered on 12/09/18 08:07; Admin Dose 1 TAB; Start 11/29/18 at 08:30 Lisinopril (Zestril) 2.5 mg DAILY PO Last administered on 12/18/18 08:37; Admin Dose 2.5 MG; Start 12/03/18 at 09:00 Furosemide (Lasix) 20 mg DAILY@0600 PO Last administered on 12/21/18 05:30; Admin Dose 20 MG; Start 12/04/18 at 10:30 Insulin Aspart (Novolog Insulin Pen) NOVOLOG *MODERATE* ALGORITHM WITH MEALS BEDTIME SC Last administered on 12/21/18 17:26; Admin Dose 2 UNIT; Start 12/08/18 at 21:00 Simethicone (Mylicon) 80 mg Q6H PRN PO DISTENSION/GAS/BLOATING; Start 12/13/18 at 17:30 Tramadol HCl (Ultram) 50 mg Q6H PRN PO MODERATE PAIN LEVEL 4-6 Last administered on 12/21/18 05:41; Admin Dose 50 MG; Start 12/14/18 at 17:00 Meropenem/Sodium Chloride 50 ml @ 100 mls/hr Q8 IVPB Last administered on 12/21/18 13:46; Admin Dose 100 MLS/HR; Start 12/15/18 at 12:00 Lactobacillus Acidophilus/ Rhamnosus (Culturelle) 1 cap BID PO Last administered on 12/21/18 08:57; Admin Dose 1 CAP; Start 12/15/18 at 23:30 Loperamide HCl (Imodium Cap) 2 mg Q6H PRN PO DIARRHEA; Start 12/17/18 at 15:00 Amoxicillin (Amoxicillin) 500 mg Q8 PO Last administered on 12/21/18at 13:46; Admin Dose 500 MG; Start 12/20/18 at 14:00 Insulin Glargine (Lantus) 40 units DAILY@0800 SC ; Start 12/22/18 at 08:00 Insulin Aspart (Novolog Insulin Pen) 4 unit WITH MEALS SC Last administered on 12/21/18at 17:26; Admin Dose 4 UNIT; Start 12/21/18 at 17:35 NESS MUNOZ NP Dec 21, 2018 17:41
[2018-12-21 20:02] VITALS: BP 137/73; PULSE 90; RESP 18
[2018-12-21] MEDS: QUETIAPINE 25 MG TAB PO SCH (21:09)
[2018-12-21] MEDS: ATORVASTATIN 80 MG TAB PO SCH (21:09)
[2018-12-22 02:00] VITALS: BP 126/66; PULSE 86; RESP 18
[2018-12-22] MEDS: MEROPENEM 1 GM/50ML(PMX) 50 ML IVPB SCH ×3 (05:25→21:19)
[2018-12-22] MEDS: AMOXICILLIN 500 MG CAP PO SCH ×3 (05:36→21:19)
[2018-12-22] MEDS: FUROSEMIDE 20 MG TAB PO SCH (05:38)
[2018-12-22] MEDS: INSULIN ASPART [NOVOLOG] 3 ML PEN SC SCH ×7 (07:53→20:37)
[2018-12-22] MEDS: INSULIN GLARGINE [LANTus] (100 UNITS/ML) SYG SC SCH (07:55)
[2018-12-22 08:00] VITALS: BP 117/71; PULSE 95; RESP 18
[2018-12-22] MEDS: LACTOBACILLUS RHAMNOSUS CAP PO SCH ×2 (08:55→20:34)
[2018-12-22] MEDS: ZINC SULFATE 220 MG CAP PO SCH (08:55)
[2018-12-22] MEDS: FAMOTIDINE 20 MG TAB PO SCH (08:56)
[2018-12-22] MEDS: CLOPIDOGREL 75 MG TAB PO SCH (08:56)
[2018-12-22] MEDS: ASPIRIN 81 MG TAB PO SCH (08:56)
[2018-12-22] MEDS: LISINOPRIL 5 MG TAB PO SCH (08:56)
[2018-12-22] MEDS: ASCORBIC ACID 500 MG TAB PO SCH (08:56)
[2018-12-22] MEDS: HEPARIN 5,000 UNIT/1 ML VIAL SC SCH ×2 (08:57→20:36)
[2018-12-22] MEDS: GABAPENTIN (50 MG/ML PO SYG) PO SCH ×2 (08:58→20:35)
[2018-12-22] MEDS: traMADol 50 MG TAB PO PRN (09:15)
--- NOTE | 2018-12-22 11:34 | PN ---
Date/Time of Note Date/Time of Note DATE: 12/22/18 TIME: 11:34 Objective Vitals Vital Signs Date Temp Pulse Resp B/P (MAP) Pulse Ox O2 O2 Flow FiO2 Time Delivery Rate 12/22/18 98.1 95 18 117/71 96 Room Air 08:00 (86) 12/19/18 6.0 09:20 Intake and Output 12/21/18 12/21/18 12/22/18 1515:00 23:00 07:00 IntakeIntake Total 670 ml 1450 ml 1050 ml OutputOutput Total 5 ml BalanceBalance 670 ml 1445 ml 1050 ml Results Result Diagram: 12/21/18 0600 12/21/18 0600 Medications Medications Current Medications Ergocalciferol (Drisdol) 50,000 unit Sa PO Last administered on 12/21/18at 10:49; Admin Dose 50,000 UNIT; Start 11/09/18 at 09:00 Clonidine (Catapres) 0.1 mg Q6H PRN PO SBP>160 Last administered on 11/19/18at 03:04; Admin Dose 0.1 MG; Start 11/04/18 at 09:00 IV Flush (NS 3 ml) 3 ml PER PROTOCOL IV ; Start 11/04/18 at 09:00 Ondansetron HCl (Zofran Inj) 4 mg Q6H PRN IV NAUSEA/VOMITING Last administered on 12/15/18at 16:52; Admin Dose 4 MG; Start 11/04/18 at 09:00 Acetaminophen (Tylenol Tab) 650 mg Q6H PRN PO .PAIN 1-3 OR TEMP Last administered on 12/14/18at 00:29; Admin Dose 650 MG; Start 11/04/18 at 09:00 Miscellaneous Information 1 ea NOTE XX ; Start 11/04/18 at 09:00 Glucose (Glutose) 15 gm Q15M PRN PO DECREASED GLUCOSE Last administered on 12/17/18at 06:56; Admin Dose 15 GM; Start 11/04/18 at 09:00 Glucose (Glutose) 22.5 gm Q15M PRN PO DECREASED GLUCOSE; Start 11/04/18 at 09:00 Dextrose (D50w Syringe) 25 ml Q15M PRN IV DECREASED GLUCOSE; Start 11/04/18 at 09:00 Dextrose (D50w Syringe) 50 ml Q15M PRN IV DECREASED GLUCOSE; Start 11/04/18 at 09:00 Glucagon (Glucagen) 1 mg Q15M PRN IM DECREASED GLUCOSE; Start 11/04/18 at 09:00 Glucose (Glutose) 15 gm Q15M PRN BUCCAL DECREASED GLUCOSE; Start 11/04/18 at 09:00 Miscellaneous Information Patients own medicat... BID@10,16 XX Last administ ered on 12/18/18 10:32; Admin Dose 1 EA; Start 11/04/18 at 16:00 Hydralazine HCl (Apresoline) 10 mg Q4H PRN IV sbp >160 Last administered on 11/20/18 14:44; Admin Dose 10 MG; Start 11/08/18 at 09:00 Atropine Sulfate (Atropine) 0.5 mg PRN PRN IV SYMPTOMATIC BRADYCARDIA; Start 11/11/18 at 23:00 Heparin Sodium (Porcine) (Heparin (5000 Units/1ml)) 5,000 unit BID SC Last administered on 12/22/18 08:57; Admin Dose 5,000 UNIT; Start 11/14/18 at 21:00 Bisacodyl (Dulcolax Supp) 10 mg DAILY PRN NM CONSTIPATION Last administered on 11/14/18 16:43; Admin Dose 10 MG; Start 11/14/18 at 16:30 IV Flush (NS 10 ml) 10 ml PRN PRN IV FLUSH LINE; Start 11/15/18 at 15:30 Gabapentin (Neurontin Liquid) 300 mg BID PO Last administered on 12/22/18 08:58; Admin Dose 300 MG; Start 11/18/18 at 21:00 Ascorbic Acid (Vitamin C) 500 mg DAILY PO Last administered on 12/22/18 08:56; Admin Dose 500 MG; Start 11/20/18 at 09:00 Zinc Sulfate (Zinc Sulfate) 220 mg DAILY PO Last administered on 12/22/18 08:55; Admin Dose 220 MG; Start 11/20/18 at 09:00 Atorvastatin Calcium (Lipitor) 80 mg QHS PO Last administered on 12/21/18 21:09; Admin Dose 80 MG; Start 11/19/18 at 21:00 Lorazepam (Ativan) 0.5 mg Q6H PRN IV anxiety/agitation Last administered on 11/22/18 19:32; Admin Dose 0.5 MG; Start 11/22/18 at 11:00 Clopidogrel Bisulfate (plaVIX) 75 mg DAILY PO Last administered on 12/22/18 08:56; Admin Dose 75 MG; Start 11/23/18 at 09:00 Haloperidol (Haldol) 5 mg Q12H PRN IM agitation Last administered on 11/22/18 19:44; Admin Dose 5 MG; Start 11/22/18 at 14:30 Quetiapine Fumarate (Seroquel) 25 mg QHS PO Last administered on 12/21/18 21:09; Admin Dose 25 MG; Start 11/26/18 at 21:00 Polyethylene Glycol (Miralax) 17 gm DAILY PRN PO constipation Last administered on 12/06/18 06:10; Admin Dose 17 GM; Start 11/29/18 at 08:02 Aspirin (Aspirin) 81 mg DAILY PO Last administered on 12/22/18 08:56; Admin Dose 81 MG; Start 11/29/18 at 09:00 Famotidine (Pepcid) 20 mg DAILY PO Last administered on 12/22/18 08:56; Admin Dose 20 MG; Start 11/29/18 at 09:00 Senna/Docusate Sodium (Senokot-S) 1 tab BID PRN PO constipation Last administered on 12/09/18 08:07; Admin Dose 1 TAB; Start 11/29/18 at 08:30 Lisinopril (Zestril) 2.5 mg DAILY PO Last administered on 12/22/18 08:56; Admin Dose 2.5 MG; Start 12/03/18 at 09:00 Furosemide (Lasix) 20 mg DAILY@0600 PO Last administered on 12/22/18 05:38; Admin Dose 20 MG; Start 12/04/18 at 10:30 Insulin Aspart (Novolog Insulin Pen) NOVOLOG *MODERATE* ALGORITHM WITH MEALS B EDTIME SC Last administered on 12/22/18 07:53; Admin Dose 2 UNIT; Start 12/08/18 at 21:00 Simethicone (Mylicon) 80 mg Q6H PRN PO DISTENSION/GAS/BLOATING; Start 12/13/18 at 17:30 Tramadol HCl (Ultram) 50 mg Q6H PRN PO MODERATE PAIN LEVEL 4-6 Last administered on 12/22/18 09:15; Admin Dose 50 MG; Start 12/14/18 at 17:00 Meropenem/Sodium Chloride 50 ml @ 100 mls/hr Q8 IVPB Last administered on 05:25; Admin Dose 100 MLS/HR; Start 12/15/18 at 12:00 Lactobacillus Acidophilus/ Rhamnosus (Culturelle) 1 cap BID PO Last administered on 12/22/18 08:55; Admin Dose 1 CAP; Start 12/15/18 at 23:30 Loperamide HCl (Imodium Cap) 2 mg Q6H PRN PO DIARRHEA; Start 12/17/18 at 15:00 Amoxicillin (Amoxicillin) 500 mg Q8 PO Last administered on 12/22/18 05:36; Admin Dose 500 MG; Start 12/20/18 at 14:00 Insulin Glargine (Lantus) 40 units DAILY@0800 SC Last administered on 12/22/18 07:55; Admin Dose 40 UNITS; Start 12/22/18 at 08:00 Insulin Aspart (Novolog Insulin Pen) 4 unit WITH MEALS SC Last administered on 12/22/18 07:54; Admin Dose 4 UNIT; Start 12/21/18 at 17:35 VTE Prophylaxis Risk score (from Ns)>0 risk: 2 SCD applied (from Ns): Yes Lines/Catheters IV Catheter Type: Vora in Place: No Assessment/Plan Hospital Course Subjective Patient doing well, no acute complaints Objective Physical exam General: Patient is laying in bed responding to questions appropriately Mentation: Patient is alert and oriented Head: Normocephalic atraumatic Eyes: EOMI, pupils reactive to light Neck: Supple, nontender, midline Respiratory: Coarse to auscultation bilaterally Cardiovascular: regular rate, no obvious murmurs Gastrointestinal: non-tender to palpation, bowel sounds heard. Neurological: Moves all extremities spontaneously Skin: No new skin lesions, surgical site bandaged, CDI Assessment/Plan Assessment/Plan 1. Drainage from surgical site and groin area- stable status post surgical exploration the ground surgical site, graft did not need to be replaced, lymph drainage cleaned up by vascular surgeon - continue with wound vac with dressing changes - CM on board and arranging for wound vac changes 2. Groin wound infection, enterococcus and Coag neg staph - wound vac in place per Vasc recommendations - ID on board for antibiotic recommendations and will continue current treatment. 3. 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 - Continue local wound care - Podiatry on board and appreciate consultation. no further procedures scheduled at this time. will need to follow up as outpatient 4. Left frontal CVA - Neurology on board and appreciate recommendations - continue on aspirin and Plavix and statin 5. left-sided internal carotid artery stenosis - 25% per CT angiogram, continue aspirin, statin, Plavix per vascular surgeon 6. Acute hypoxic respiratory failure-resolved - doing well on room air - Pulmonology consultation appreciated 7. Cardiac arrest s/p ROSC - Cardiology on board and appreciate recommendations - ECHO with preserved EF 8. Severe peripheral vascular disease - s/p left femoral endarterectomy, iliofemoral bypass and femoral to posterior tibial bypass done on November 08, 2018 - Vascular surgery consultation appreciated. Continue aspirin and Plavix 9. Diabetes Mellitus - A1c noted - metformin dc'd due to possible diarrhea 10. Acute kidney injury- resolved - nephrology consultation appreciated 11. Essential HTN - Continue home medications at this time as tolerated 12. Peripheral neuropathy - cont. gabapentin 13. HLD - On statin 14. Chronic anemia - Stable H&H. Monitor - no need for transfusions at this time 15. Urinary retention, resolved - Urology on board and appreciate recommendations. - voiding without any issues 16. Disposition -monitor post surgical site exploration of graft and lymph drainage correction -Attempt SNF placement FRANTZ SCHWAB Dec 22, 2018 11:34
[2018-12-22 14:00] VITALS: BP 123/70; PULSE 93; RESP 18
--- NOTE | 2018-12-22 14:17 | CONS ---
Assessment/Plan Assessment/Plan Hospital Course (Demo Recall) Subjective Pt sleeping Unable to obtain ROS as pt sleeping, allowing him to rest Medications and allergies reviewed Past medical, surgical, family and social history reviewed. Objective General: WD/WN, NAD, thin HEENT: NC/AT, PERRLA, dry mucus membranes CV: RRR, grade 1/6 systolic murmur, S1/S2, no S3/S4, no JVD, no carotid bruits Respiratory: CTAB, no W/C/R, non-labored breathing GI: abdomen soft, NT/ND, normoactive bowel sounds Vascular: extremities are warm, 2+ radial/DT/PT pulses bilaterally, no edema Assessment & Plan MPRESSION: 1. Preoperative evaluation prior to possible need for peripheral revascularization surgery.-neg trop x 3 and NL EF by echo with no sig valve abnl. Echo repeat 11/13 with NL EF 2. Peripheral arterial disease with nonhealing gangrenous changes in left toe ulceration. 3. Hypertension-now tolerating low dose ACEI but with very labile BP. Will follow - currently with low BPs 4. Dyslipidemia. 5. Diabetes mellitus. 6. s/p cardiopulmonary arrest 7. Bradycardic intermittent by tele-now resolved 8. Positive troponin after arrest-? secondary to or primary to arrest, likely secondary to arrest, type 2 demand infarct, as no significant uptrend and now downtrended to negative 9. Resp failure-s/p extubation 10. CVA-Acute by MRI 11.Groin wound now post-op s/p groin exploration/ligation of leaking lymphatics with placement of VAC 12. Loose stools Recc: -Continue asa/plavix/statin for cva -serial ecg's -Continue now meropenem/amoxicillin and f/u bld cx's and exam -local wound care -follow volume status closely now back on daily PO lasix -follow MS closely -Continue now zestril mononotherapy at reduced dose and follow labile BP clsoely with possible need to increase dose. -metformin held, follow BS clsoely Consultation Date/Type/Reason Admit Date/Time Nov 04, 2018 at 07:34 Initial Consult Date 11/11/18 Type of Consult Cardiology Requesting Provider: KARL WOOD MD Date/Time of Note DATE: 12/22/18 TIME: 14:14 Exam/Review of Systems Vital Signs Vitals Vital Signs Date Temp Pulse Resp B/P (MAP) Pulse Ox O2 O2 Flow FiO2 Time Delivery Rate 12/22/18 98.1 95 18 117/71 96 Room Air 08:00 (86) 12/19/18 6.0 09:20 Intake and Output 12/21/18 12/21/18 12/22/18 1515:00 23:00 07:00 IntakeIntake Total 670 ml 1450 ml 1050 ml OutputOutput Total 5 ml BalanceBalance 670 ml 1445 ml 1050 ml Labs Result Diagram: 12/21/18 0600 12/21/18 0600 Results 24hrs Laboratory Tests Test 12/21/18 17:23 12/21/18 21:06 12/22/18 07:51 12/22/18 11:52 Bedside Glucose 149 175 150 162 Medications Medications Current Medications Ergocalciferol (Drisdol) 50,000 unit Sa PO Last administered on 12/21/18at 10:49; Admin Dose 50,000 UNIT; Start 11/09/18 at 09:00 Clonidine (Catapres) 0.1 mg Q6H PRN PO SBP>160 Last administered on 11/19/18at 03:04; Admin Dose 0.1 MG; Start 11/04/18 at 09:00 IV Flush (NS 3 ml) 3 ml PER PROTOCOL IV ; Start 11/04/18 at 09:00 Ondansetron HCl (Zofran Inj) 4 mg Q6H PRN IV NAUSEA/VOMITING Last administered on 12/15/18at 16:52; Admin Dose 4 MG; Start 11/04/18 at 09:00 Acetaminophen (Tylenol Tab) 650 mg Q6H PRN PO .PAIN 1-3 OR TEMP Last administered on 12/14/18at 00:29; Admin Dose 650 MG; Start 11/04/18 at 09:00 Miscellaneous Information 1 ea NOTE XX ; Start 11/04/18 at 09:00 Glucose (Glutose) 15 gm Q15M PRN PO DECREASED GLUCOSE Last administered on 12/17/18at 06:56; Admin Dose 15 GM; Start 11/04/18 at 09:00 Glucose (Glutose) 22.5 gm Q15M PRN PO DECREASED GLUCOSE; Start 11/04/18 at 09:0 0 Dextrose (D50w Syringe) 25 ml Q15M PRN IV DECREASED GLUCOSE; Start 11/04/18 at 09:00 Dextrose (D50w Syringe) 50 ml Q15M PRN IV DECREASED GLUCOSE; Start 11/04/18 at 09:00 Glucagon (Glucagen) 1 mg Q15M PRN IM DECREASED GLUCOSE; Start 11/04/18 at 09:00 Glucose (Glutose) 15 gm Q15M PRN BUCCAL DECREASED GLUCOSE; Start 11/04/18 at 09:00 Miscellaneous Information Patients own medicat... BID@10,16 XX Last administered on 12/18/18at 10:32; Admin Dose 1 EA; Start 11/04/18 at 16:00 Hydralazine HCl (Apresoline) 10 mg Q4H PRN IV sbp >160 Last administered on 11/20/18 14:44; Admin Dose 10 MG; Start 11/08/18 at 09:00 Atropine Sulfate (Atropine) 0.5 mg PRN PRN IV SYMPTOMATIC BRADYCARDIA; Start 11/11/18 at 23:00 Heparin Sodium (Porcine) (Heparin (5000 Units/1ml)) 5,000 unit BID SC Last administered on 12/22/18 08:57; Admin Dose 5,000 UNIT; Start 11/14/18 at 21:00 Bisacodyl (Dulcolax Supp) 10 mg DAILY PRN [place] CONSTIPATION Last administered on 11/14/18 16:43; Admin Dose 10 MG; Start 11/14/18 at 16:30 IV Flush (NS 10 ml) 10 ml PRN PRN IV FLUSH LINE; Start 11/15/18 at 15:30 Gabapentin (Neurontin Liquid) 300 mg BID PO Last administered on 12/22/18 08:58; Admin Dose 300 MG; Start 11/18/18 at 21:00 Ascorbic Acid (Vitamin C) 500 mg DAILY PO Last administered on 12/22/18 08:56; Admin Dose 500 MG; Start 11/20/18 at 09:00 Zinc Sulfate (Zinc Sulfate) 220 mg DAILY PO Last administered on 12/22/18 08:55; Admin Dose 220 MG; Start 11/20/18 at 09:00 Atorvastatin Calcium (Lipitor) 80 mg QHS PO Last administered on 12/21/18 21:09; Admin Dose 80 MG; Start 11/19/18 at 21:00 Lorazepam (Ativan) 0.5 mg Q6H PRN IV anxiety/agitation Last administered on 11/22/18 19:32; Admin Dose 0.5 MG; Start 11/22/18 at 11:00 Clopidogrel Bisulfate (plaVIX) 75 mg DAILY PO Last administered on 12/22/18 08:56; Admin Dose 75 MG; Start 11/23/18 at 09:00 Haloperidol (Haldol) 5 mg Q12H PRN IM agitation Last administered on 11/22/18 19:44; Admin Dose 5 MG; Start 11/22/18 at 14:30 Quetiapine Fumarate (Seroquel) 25 mg QHS PO Last administered on 12/21/18 21:09; Admin Dose 25 MG; Start 11/26/18 at 21:00 Polyethylene Glycol (Miralax) 17 gm DAILY PRN PO constipation Last administered on 12/06/18 06:10; Admin Dose 17 GM; Start 11/29/18 at 08:02 Aspirin (Aspirin) 81 mg DAILY PO Last administered on 12/22/18 08:56; Admin Dose 81 MG; Start 11/29/18 at 09:00 Famotidine (Pepcid) 20 mg DAILY PO Last administered on 12/22/18 08:56; Admin Dose 20 MG; Start 11/29/18 at 09:00 Senna/Docusate Sodium (Senokot-S) 1 tab BID PRN PO constipation Last administered on 12/09/18 08:07; Admin Dose 1 TAB; Start 11/29/18 at 08:30 Lisinopril (Zestril) 2.5 mg DAILY PO Last administered on 12/22/18 08:56; Admin Dose 2.5 MG; Start 12/03/18 at 09:00 Furosemide (Lasix) 20 mg DAILY@0600 PO Last administered on 12/22/18 05:38; Admin Dose 20 MG; Start 12/04/18 at 10:30 Insulin Aspart (Novolog Insulin Pen) NOVOLOG *MODERATE* ALGORITHM WITH MEALS BEDTIME SC Last administered on 12/22/18 11:55; Admin Dose 2 UNIT; Start 12/08/18 at 21:00 Simethicone (Mylicon) 80 mg Q6H PRN PO DISTENSION/GAS/BLOATING; Start 12/13/18 at 17:30 Tramadol HCl (Ultram) 50 mg Q6H PRN PO MODERATE PAIN LEVEL 4-6 Last administered on 12/22/18 09:15; Admin Dose 50 MG; Start 12/14/18 at 17:00 Meropenem/Sodium Chloride 50 ml @ 100 mls/hr Q8 IVPB Last administered on 12/22/18 05:25; Admin Dose 100 MLS/HR; Start 12/15/18 at 12:00 Lactobacillus Acidophilus/ Rhamnosus (Culturelle) 1 cap BID PO Last administered on 12/22/18 08:55; Admin Dose 1 CAP; Start 12/15/18 at 23:30 Loperamide HCl (Imodium Cap) 2 mg Q6H PRN PO DIARRHEA; Start 12/17/18 at 15:00 Amoxicillin (Amoxicillin) 500 mg Q8 PO Last administered on 12/22/18 05:36; Admin Dose 500 MG; Start 12/20/18 at 14:00 Insulin Glargine (Lantus) 40 units DAILY@0800 SC Last administered on 12/22/18 07:55; Admin Dose 40 UNITS; Start 12/22/18 at 08:00 Insulin Aspart (Novolog Insulin Pen) 4 unit WITH MEALS SC Last administered on 12/22/18 11:56; Admin Dose 4 UNIT; Start 12/21/18 at 17:35 ZOHREH WONG DO Dec 22, 2018 14:17
--- NOTE | 2018-12-22 17:03 | CONS ---
Assessment/Plan Assessment/Plan Hospital Course (Demo Recall) ID PROGRESS NOTE CURRENT ABX: DAY # => MERREM s/p Zyvox S/P Levaquin + Merrem + Diflucan S/P Daptomycin + Ceftriaxone 24H INTERVAL SUMMARY * POD #3 -> S/P 12/19/2018 => Left groin exploration, ligation of multiple leaking lymphatics and VAC placement. * POSTOPERATIVE DIAGNOSIS: Left groin lymphatic leak, infection status post iliofemoral and fem-pop bypass. * Patient is a vasculopath with carotid, coronary, peripheral arterial disease * CLINICALLY STATUS QUO == No fevers, WBC normalized, wound vac in place -- no new issues, no questions, no complaints MICRO * 12/15/18 (-) c.dIFF * 12/13/18 GROIN WOUND CX: WOUND CULTURE Final Organism 1 K PNEUMO ESBL QUANTITY 1+ . MULTI DRUG RESISTANT ORGANISM Organism 2 ENTEROCOCCUS SPECIES QUANTITY ISOLATED FROM BROTH ONLY KLEB PNEUM KLEB PNEUM ENT SPS M.I.C. RX M.I.C. RX M.I.C. RX --------- --- --------- --- --------- --- AMIKACIN 8 S AMPICILLIN <=2 S CEFAZOLIN R CEFEPIME >=64 R CEFOTAXIME R CIPROFLOXACIN >=4 R GENTAMICIN >=16 R LEVOFLOXACIN >=8 R MEROPENEM 0.38 S PENICILLIN-G 1 S VANCOMYCIN S TOBRAMYCIN >=16 R TRIMETHOPRIM/SULFAMETHOXAZOLE >=320 R PIPERACILLIN/TAZOBACTAM >=128 R * 12/05/18 BCX (-) * 12/04/18 GROIN CX: WOUND CULTURE Final Organism 1 COAGULASE NEGATIVE STAPH QUANTITY 1+ Organism 2 ENTEROCOC CASSELIFLAVUS(GRP D) QUANTITY SCANT GROWTH RE: ENTEROCOCCUS CASSELIFLAVUS VanC genotype resistance is an intrinsic characteristic of Enterococcus gallinarum and Enterococcus casseliflavus strain, not a true Vancomycin reistant enterococcus (VRE). The need to differentiate VanC strain is clinically significant for therapeutic infection control and surveillance reason. REGINA SHIPLEY(Bonnie) M.I.C. RX M.I.C. RX --------- --- --------- --- AMPICILLIN <=2 S CEFAZOLIN R CIPROFLOXACIN >=8 R CLINDAMYCIN <=0.25 S DOXYCYCLINE S ERYTHROMYCIN >=8 R LEVOFLOXACIN >=8 R OXACILLIN >=4 R PENICILLIN-G >=0.5 R 2 S RIFAMPIN <=0.5 S VANCOMYCIN 1 S R * 12/02/18 BCx 1/2 CoNS * 11/14/18 TRACH CX: RESPIRATORY CULTURE Final Organism 1 ALEX ALBICANS QUANTITY SCANT GROWTH Organism 2 NORMAL RESPIRATORY LEO QUANTITY SCANT GROWTH * 11/11/18 TOE WOUND CX WOUND CULTURE Final Organism 1 K PNEUMO ESBL QUANTITY 4+ . MULTI DRUG RESISTANT ORGANISM Organism 2 STENOTROPHOMONAS MALTOPHILIA QUANTITY 4+ KLEB PNEUM KLEB PNEUM STENMAL M.I.C. RX M.I.C. RX M.I.C. RX --------- --- --------- --- --------- --- AMIKACIN 16 S CEFAZOLIN R CEFEPIME >=64 R CEFOTAXIME R CIPROFLOXACIN >=4 R GENTAMICIN >=16 R LEVOFLOXACIN I 0.5 S MEROPENEM 0.064 S TOBRAMYCIN >=16 R TRIMETHOPRIM/SULFAMETHOXAZOLE >=320 R <=20 S PIPERACILLIN/TAZOBACTAM 32 I DIAGNOSTIC IMAGING * 11/20/18 MRI BRAIN: IMPRESSION: Punctate acute infarct in the left posterior frontal lobe. Hypodense focus in the right thalamus on the comparison CT corresponds to an old lacunar infarct. Additional old infarcts in the bilateral frontal lobes and jennfier. Background parenchymal volume loss with chronic microvascular ischemic disease. Bilateral mastoid effusions. * 11/20/18 CAROTID US: Slightly increased velocity in the left proximal ICA, schuler spicious for a 50-69% stenosis. - validated velocity measurements with angiographic measurements, velocity criteria are extrapolated from diameter data as defined by the Society of Radiologists in Ultrasound Consensus Conference Radiology 2003; 229;340-346. This study does indirectly reference the measurement of the distal ICA diameter as the denominator for stenosis measurement. Normal antegrade flow in the vertebral arteries bilaterally. Mild to moderate calcific plaque bilaterally, left greater than right. * 11/19/18 CT BRAIN: CT of the brain yesterday revealed new 8 mm infarct in the left thalamus no acute intracranial hemorrhage. Please see full note in the chart * 11/08/18 CXR: Worsening diffuse bilateral reticular nodular infiltrates. PHYSICAL EXAMINATION = GENERAL: VSS, NAD HEENT: AT, NC, NECK: Supple, CHEST: Rise symmetrical HEART: Pulse RRR ABDOMEN: Benign EXTREMITIES: Warm, dry == left foot DSG C/D/I SKIN: No rash, no diaphoresis ID ASSESSMENT 72 yo M admit with: 1. Left groin lymphatic leak, infection status post iliofemoral and fem-pop bypass. * POD # 3-> S/P 12/19/2018 => Left groin exploration, ligation of multiple leaking lymphatics and VAC placement. 2. Peripheral arterial disease W/ left foot gangrene * POD #-> S/P 11/08/18 Left femoral endarterectomy w/Left iliofemoral bypass, and Left femoral->posterior tibial bypass * Left foot gangrenePOD -> s/p 11/22/18 FOOT DEBRIDEMENT 3. Diffuse pulmonary infiltrates == DDx CHF (STG I diastolic HF) w/possible superimposed HCAP * Per discussion w/Dr Ardon CT shares appearance of septic emboli 4. Hypertension w/HTN heart disease 5. Diabetes w/complications of peripheral neuropathy, vasculopathy 6. History of left foot second toe amputation 7. Acute kidney injury due to "NAVID" contrast induced necropathy post angiogram 8. Acute encephalopathy w/CT & MRI findings of new CVA superimposed on old prior infarcts 9. s/p Bilateral mastoiditis (-)MRSA Nares ABX ALLERGIES: KNDA INVASIVES: PIV CURRENT ABX: DAY # MERREM s/p Zyvox S/P Levaquin + Merrem + Diflucan S/P Daptomycin + Ceftriaxone ID RECOMMENDATIONS/PLAN: 1. Started on MERREM for ESBL groin infection==> Left groin wound vac in place * ID team colleagues to f/u on appropriate length of Merrem ABX course . Consultation Date/Type/Reason Admit Date/Time Nov 04, 2018 at 07:34 Initial Consult Date Requesting Provider: KARL WOOD MD Date/Time of Note DATE: 12/22/18 TIME: 17:01 Exam/Review of Systems Exam Vitals Vital Signs Date Temp Pulse Resp B/P (MAP) Pulse Ox O2 O2 Flow FiO2 Time Delivery Rate 12/22/18 98.0 93 18 123/70 97 Room Air 14:00 (87) 12/19/18 6.0 09:20 Intake and Output 12/21/18 12/21/18 12/22/18 1515:00 23:00 07:00 IntakeIntake Total 670 ml 1450 ml 1050 ml OutputOutput Total 5 ml BalanceBalance 670 ml 1445 ml 1050 ml Results Result Diagram: 12/21/18 0600 12/21/18 0600 Results 24hrs Laboratory Tests Test 12/21/18 17:23 12/21/18 21:06 12/22/18 07:51 12/22/18 11:52 Bedside Glucose 149 175 150 162 Medications Medication Current Medications Ergocalciferol (Drisdol) 50,000 unit Sa PO Last administered on 12/21/18at 10:49; Admin Dose 50,000 UNIT; Start 11/09/18 at 09:00 Clonidine (Catapres) 0.1 mg Q6H PRN PO SBP>160 Last administered on 11/19/18at 03:04; Admin Dose 0.1 MG; Start 11/04/18 at 09:00 IV Flush (NS 3 ml) 3 ml PER PROTOCOL IV ; Start 11/04/18 at 09:00 Ondansetron HCl (Zofran Inj) 4 mg Q6H PRN IV NAUSEA/VOMITING Last administered on 12/15/18at 16:52; Admin Dose 4 MG; Start 11/04/18 at 09:00 Acetaminophen (Tylenol Tab) 650 mg Q6H PRN PO .PAIN 1-3 OR TEMP Last administered on 12/14/18at 00:29; Admin Dose 650 MG; Start 11/04/18 at 09:00 Miscellaneous Information 1 ea NOTE XX ; Start 11/04/18 at 09:00 Glucose (Glutose) 15 gm Q15M PRN PO DECREASED GLUCOSE Last administered on 12/17/18at 06:56; Admin Dose 15 GM; Start 11/04/18 at 09:00 Glucose (Glutose) 22.5 gm Q15M PRN PO DECREASED GLUCOSE; Start 11/04/18 at 09:00 Dextrose (D50w Syringe) 25 ml Q15M PRN IV DECREASED GLUCOSE; Start 11/04/18 at 09:00 Dextrose (D50w Syringe) 50 ml Q15M PRN IV DECREASED GLUCOSE; Start 11/04/18 at 09:00 Glucagon (Glucagen) 1 mg Q15M PRN IM DECREASED GLUCOSE; Start 11/04/18 at 09:00 Glucose (Glutose) 15 gm Q15M PRN BUCCAL DECREASED GLUCOSE; Start 11/04/18 at 09 :00 Miscellaneous Information Patients own medicat... BID@,16 XX Last administered on 12/18/18at 10:32; Admin Dose 1 EA; Start 11/04/18 at 16:00 Hydralazine HCl (Apresoline) 10 mg Q4H PRN IV sbp >160 Last administered on 11/20/18at 14:44; Admin Dose 10 MG; Start 11/08/18 at 09:00 Atropine Sulfate (Atropine) 0.5 mg PRN PRN IV SYMPTOMATIC BRADYCARDIA; Start 11/11/18 at 23:00 Heparin Sodium (Porcine) (Heparin (5000 Units/1ml)) 5,000 unit BID SC Last administered on 12/22/18 08:57; Admin Dose 5,000 UNIT; Start 11/14/18 at 21:00 Bisacodyl (Dulcolax Supp) 10 mg DAILY PRN [place] CONSTIPATION Last administered on 11/14/18at 16:43; Admin Dose 10 MG; Start 11/14/18 at 16:30 IV Flush (NS 10 ml) 10 ml PRN PRN IV FLUSH LINE; Start 11/15/18 at 15:30 Gabapentin (Neurontin Liquid) 300 mg BID PO Last administered on 12/22/18at 08:58; Admin Dose 300 MG; Start 11/18/18 at 21:00 Ascorbic Acid (Vitamin C) 500 mg DAILY PO Last administered on 12/22/18 08:56; Admin Dose 500 MG; Start 11/20/18 at 09:00 Zinc Sulfate (Zinc Sulfate) 220 mg DAILY PO Last administered on 12/22/18 08:55; Admin Dose 220 MG; Start 11/20/18 at 09:00 Atorvastatin Calcium (Lipitor) 80 mg QHS PO Last administered on 12/21/18 21:09; Admin Dose 80 MG; Start 11/19/18 at 21:00 Lorazepam (Ativan) 0.5 mg Q6H PRN IV anxiety/agitation Last administered on 11/22/18 19:32; Admin Dose 0.5 MG; Start 11/22/18 at 11:00 Clopidogrel Bisulfate (plaVIX) 75 mg DAILY PO Last administered on 12/22/18 08:56; Admin Dose 75 MG; Start 11/23/18 at 09:00 Haloperidol (Haldol) 5 mg Q12H PRN IM agitation Last administered on 11/22/18 19:44; Admin Dose 5 MG; Start 11/22/18 at 14:30 Quetiapine Fumarate (Seroquel) 25 mg QHS PO Last administered on 12/21/18 21:09; Admin Dose 25 MG; Start 11/26/18 at 21:00 Polyethylene Glycol (Miralax) 17 gm DAILY PRN PO constipation Last administered on 12/06/18 06:10; Admin Dose 17 GM; Start 11/29/18 at 08:02 Aspirin (Aspirin) 81 mg DAILY PO Last administered on 12/22/18 08:56; Admin Dose 81 MG; Start 11/29/18 at 09:00 Famotidine (Pepcid) 20 mg DAILY PO Last administered on 12/22/18 08:56; Admin Dose 20 MG; Start 11/29/18 at 09:00 Senna/Docusate Sodium (Senokot-S) 1 tab BID PRN PO constipation Last administer ed on 12/09/18 08:07; Admin Dose 1 TAB; Start 11/29/18 at 08:30 Lisinopril (Zestril) 2.5 mg DAILY PO Last administered on 12/22/18 08:56; Admin Dose 2.5 MG; Start 12/03/18 at 09:00 Furosemide (Lasix) 20 mg DAILY@0600 PO Last administered on 12/22/18 05:38; Admin Dose 20 MG; Start 12/04/18 at 10:30 Insulin Aspart (Novolog Insulin Pen) NOVOLOG *MODERATE* ALGORITHM WITH MEALS BEDTIME SC Last administered on 12/22/18 11:55; Admin Dose 2 UNIT; Start 12/08/18 at 21:00 Simethicone (Mylicon) 80 mg Q6H PRN PO DISTENSION/GAS/BLOATING; Start 12/13/18 at 17:30 Tramadol HCl (Ultram) 50 mg Q6H PRN PO MODERATE PAIN LEVEL 4-6 Last administered on 12/22/18 09:15; Admin Dose 50 MG; Start 12/14/18 at 17:00 Meropenem/Sodium Chloride 50 ml @ 100 mls/hr Q8 IVPB Last administered on 12/22/18 14:14; Admin Dose 100 MLS/HR; Start 12/15/18 at 12:00 Lactobacillus Acidophilus/ Rhamnosus (Culturelle) 1 cap BID PO Last administered on 12/22/18 08:55; Admin Dose 1 CAP; Start 12/15/18 at 23:30 Loperamide HCl (Imodium Cap) 2 mg Q6H PRN PO DIARRHEA; Start 12/17/18 at 15:00 Amoxicillin (Amoxicillin) 500 mg Q8 PO Last administered on 12/22/18 14:13; Admin Dose 500 MG; Start 12/20/18 at 14:00 Insulin Glargine (Lantus) 40 units DAILY@0800 SC Last administered on 12/22/18 07:55; Admin Dose 40 UNITS; Start 12/22/18 at 08:00 Insulin Aspart (Novolog Insulin Pen) 4 unit WITH MEALS SC Last administered on 12/22/18 11:56; Admin Dose 4 UNIT; Start 12/21/18 at 17:35 NESS MUNOZ NP Dec 22, 2018 17:03
[2018-12-22 20:00] VITALS: BP 150/90; PULSE 99; RESP 18
[2018-12-22] MEDS: QUETIAPINE 25 MG TAB PO SCH (20:34)
[2018-12-22] MEDS: ATORVASTATIN 80 MG TAB PO SCH (20:34)
[2018-12-23 02:00] VITALS: BP 132/71; PULSE 72; RESP 17
[2018-12-23] MEDS: AMOXICILLIN 500 MG CAP PO SCH ×3 (05:18→23:10)
[2018-12-23] MEDS: MEROPENEM 1 GM/50ML(PMX) 50 ML IVPB SCH ×3 (05:18→23:10)
[2018-12-23] MEDS: FUROSEMIDE 20 MG TAB PO SCH (05:20)
--- NOTE | 2018-12-23 06:56 | CONS ---
DATE OF ADMISSION: 11/04/2018 DATE OF CONSULTATION: SUBJECTIVE FINDINGS: The patient is status post left foot 5th toe amputation. The patient is being monitored for surgical wound, has a wound VAC on the groin area, has enterococcus and coag-negative staph, currently being followed by ID. The patient denies any fever, nausea, or vomiting. OBJECTIVE FINDINGS: VITAL SIGNS: Temperature 97.9, pulse is 96, respiratory rate 16, blood pressure 137/66, pulse oximetry is 97%. GENERAL: The patient is alert, oriented, in no acute distress. EXTREMITIES: Left foot amputation site healed. Minimal edema. Mycotic nails. No signs of pressure sore, bypass pulse 3+. ASSESSMENT: 1. Left foot 5th toe amputation. 2. History of gangrene. 3. Edema. 4. Peripheral arterial disease status post left lower extremity bypass. PLAN: Dressings removed, can paint the amputation site with Betadine. No further dressing is needed. Dictated By: DEEPAK MEDELLIN/BOBO Conf#: [id number] DID#: [id number] MTDD
[2018-12-23 08:00] VITALS: BP 126/73; PULSE 92; RESP 19
[2018-12-23] MEDS: INSULIN ASPART [NOVOLOG] 3 ML PEN SC SCH ×7 (08:09→21:00)
[2018-12-23] MEDS: INSULIN GLARGINE [LANTus] (100 UNITS/ML) SYG SC SCH (08:10)
[2018-12-23] MEDS: HEPARIN 5,000 UNIT/1 ML VIAL SC SCH ×2 (08:10→22:23)
[2018-12-23] MEDS: GABAPENTIN (50 MG/ML PO SYG) PO SCH ×2 (08:11→22:20)
[2018-12-23] MEDS: ASPIRIN 81 MG TAB PO SCH (08:11)
[2018-12-23] MEDS: FAMOTIDINE 20 MG TAB PO SCH (08:11)
[2018-12-23] MEDS: CLOPIDOGREL 75 MG TAB PO SCH (08:11)
[2018-12-23] MEDS: ZINC SULFATE 220 MG CAP PO SCH (08:11)
[2018-12-23] MEDS: LACTOBACILLUS RHAMNOSUS CAP PO SCH ×2 (08:11→22:20)
[2018-12-23] MEDS: ASCORBIC ACID 500 MG TAB PO SCH (08:11)
[2018-12-23] MEDS: LISINOPRIL 5 MG TAB PO SCH (08:12)
[2018-12-23] MEDS: traMADol 50 MG TAB PO PRN (08:12)
--- NOTE | 2018-12-23 13:58 | CONS ---
Assessment/Plan Assessment/Plan Hospital Course (Demo Recall) IMPRESSION: 1. Preoperative evaluation prior to possible need for peripheral revascularization surgery.-neg trop x 3 and NL EF by echo with no sig valve abnl. Echo repeat 11/13 with NL EF 2. Peripheral arterial disease with nonhealing gangrenous changes in left toe ulceration. 3. Hypertension-now tolerating low dose ACEI but with verey labile BP. Will follow 4. Dyslipidemia. 5. Diabetes mellitus. 6. s/p cardiopulmonary arrest 7. Bradycardic intermittent by tele-now resolved 8. Positive troponin after arrest-? secondary to or primary to arrest, likely secondary to arrest, type 2 demand infarct, as no significant uptrend and now downtrended to negative 9. Resp failure-s/p extubation 10. CVA-Acute by MRI 11.Groin wound now post-op s/p groin exploration/ligation of leaking lymphatics with placement of VAC 12. Loose stools Recc: -Now on med-surg -Continue asa/plavix/statin for cva -serial ecg's -Continue now amoxicillin and f/u bld cx's and exam -local wound care -follow volume status closely on daily PO lasix -follow MS closely -Continue now zestril mononotherapy at reduced dose and follow labile BP clsoely with possible need to increase dose. -metformin held, follow BS clsoely Consultation Date/Type/Reason Admit Date/Time Nov 04, 2018 at 07:34 Initial Consult Date 11/06/18 Type of Consult Cardiology Reason for Consultation HTN Requesting Provider: KARL WOOD MD Date/Time of Note DATE: 12/23/18 TIME: 13:56 Exam/Review of Systems Vital Signs Vitals Vital Signs Date Temp Pulse Resp B/P (MAP) Pulse Ox O2 O2 Flow FiO2 Time Delivery Rate 12/23/18 97.9 92 19 126/73 98 08:00 (90) 12/22/18 Room Air 14:00 12/19/18 6.0 09:20 Intake and Output 12/22/18 12/22/18 12/23/18 1515:00 23:00 07:00 IntakeIntake Total 1430 ml 550 ml 50 ml OutputOutput Total 10 ml 5 ml 10 ml BalanceBalance 1420 ml 545 ml 40 ml Exam Exam Review of Systems: CONSTITUTIONAL: No fevers, chills. PULMONARY: No sob CARDIOVASCULAR: No chest pain/palpitations GASTROINTESTINAL: No nausea/vomiting. GENITOURINARY: No hematuria/dysuria. MUSCULOSKELETAL: mild pain in foot PSYCHIATRIC: The patient denies depression. NEUROLOGIC: No weakness Constitutional: alert Psych: no complaints Head: normocephalic ENMT: mucosa pink and moist Neck: supple, jvd (8 cm water) Respiratory: diminished breath sounds (at bases/B) Cardiovascular: regular rate and rhythm Gastrointestinal: soft, non-tender Musculoskeletal: muscle weakness (mild generalized) Extremities: edema (LLE trace with foot covered by dressing) Neurological: other (No focal deficits) Labs Result Diagram: 12/23/18 0714 12/23/18 0714 Results 24hrs Laboratory Tests Test 12/22/18 17:07 12/22/18 20:30 12/23/18 02:09 12/23/18 07:14 Bedside Glucose 188 194 207 White Blood Count 8.1 Red Blood Count 3.54 L Hemoglobin 10.6 L Hematocrit 32.4 L Mean Corpuscular Volume 91.5 Mean Corpuscular 29.9 Hemoglobin Mean Corpuscular 32.7 Hemoglobin Concent Red Cell Distribution 13.7 Width Platelet Count 255 # Mean Platelet Volume 9.7 Immature Granulocytes % 1.000 H Neutrophils % 53.8 Lymphocytes % 32.3 Monocytes % 9.6 Eosinophils % 2.6 Basophils % 0.7 Nucleated Red Blood 0.0 Cells % Immature Granulocytes # 0.080 H Neutrophils # 4.4 Lymphocytes # 2.6 Monocytes # 0.8 Eosinophils # 0.2 Basophils # 0.1 Nucleated Red Blood 0.0 Cells # Sodium Level 137 Potassium Level 4.3 Chloride Level 101 Carbon Dioxide Level 28 Anion Gap 8 Blood Urea Nitrogen 20 Creatinine 0.75 Est Glomerular Filtrat Rate mL/min Glucose Level 167 Calcium Level 9.4 Phosphorus Level 3.7 Magnesium Level 1.7 Test 12/23/18 08:00 12/23/18 12:15 Bedside Glucose 145 144 Medications Medications Current Medications Ergocalciferol (Drisdol) 50,000 unit Sa PO Last administered on 12/21/18at 10:49; Admin Dose 50,000 UNIT; Start 11/09/18 at 09:00 Clonidine (Catapres) 0.1 mg Q6H PRN PO SBP>160 Last administered on 11/19/18 03:04; Admin Dose 0.1 MG; Start 11/04/18 at 09:00 IV Flush (NS 3 ml) 3 ml PER PROTOCOL IV ; Start 11/04/18 at 09:00 Ondansetron HCl (Zofran Inj) 4 mg Q6H PRN IV NAUSEA/VOMITING Last administered on 12/15/18 16:52; Admin Dose 4 MG; Start 11/04/18 at 09:00 Acetaminophen (Tylenol Tab) 650 mg Q6H PRN PO .PAIN 1-3 OR TEMP Last administered on 12/14/18 00:29; Admin Dose 650 MG; Start 11/04/18 at 09:00 Miscellaneous Information 1 ea NOTE XX ; Start 11/04/18 at 09:00 Glucose (Glutose) 15 gm Q15M PRN PO DECREASED GLUCOSE Last administered on 12/17/18at 06:56; Admin Dose 15 GM; Start 11/04/18 at 09:00 Glucose (Glutose) 22.5 gm Q15M PRN PO DECREASED GLUCOSE; Start 11/04/18 at 09:00 Dextrose (D50w Syringe) 25 ml Q15M PRN IV DECREASED GLUCOSE; Start 11/04/18 at 09:00 Dextrose (D50w Syringe) 50 ml Q15M PRN IV DECREASED GLUCOSE; Start 11/04/18 at 09:00 Glucagon (Glucagen) 1 mg Q15M PRN IM DECREASED GLUCOSE; Start 11/04/18 at 09:00 Glucose (Glutose) 15 gm Q15M PRN BUCCAL DECREASED GLUCOSE; Start 11/04/18 at 09:00 Miscellaneous Information Patients own medicat... BID@10,16 XX Last administered on 12/18/18at 10:32; Admin Dose 1 EA; Start 11/04/18 at 16:00 Hydralazine HCl (Apresoline) 10 mg Q4H PRN IV sbp >160 Last administered on 11/20/18 14:44; Admin Dose 10 MG; Start 11/08/18 at 09:00 Atropine Sulfate (Atropine) 0.5 mg PRN PRN IV SYMPTOMATIC BRADYCARDIA; Start 11/11/18 at 23:00 Heparin Sodium (Porcine) (Heparin (5000 Units/1ml)) 5,000 unit BID SC Last administered on 12/23/18 08:10; Admin Dose 5,000 UNIT; Start 11/14/18 at 21:00 Bisacodyl (Dulcolax Supp) 10 mg DAILY PRN [place] CONSTIPATION Last administered on 11/14/18 16:43; Admin Dose 10 MG; Start 11/14/18 at 16:30 IV Flush (NS 10 ml) 10 ml PRN PRN IV FLUSH LINE; Start 11/15/18 at 15:30 Gabapentin (Neurontin Liquid) 300 mg BID PO Last administered on 12/23/18 08:11; Admin Dose 300 MG; Start 11/18/18 at 21:00 Ascorbic Acid (Vitamin C) 500 mg DAILY PO Last administered on 12/23/18 08:11; Admin Dose 500 MG; Start 11/20/18 at 09:00 Zinc Sulfate (Zinc Sulfate) 220 mg DAILY PO Last administered on 12/23/18 08:11; Admin Dose 220 MG; Start 11/20/18 at 09:00 Atorvastatin Calcium (Lipitor) 80 mg QHS PO Last administered on 12/22/18 20:34; Admin Dose 80 MG; Start 11/19/18 at 21:00 Lorazepam (Ativan) 0.5 mg Q6H PRN IV anxiety/agitation Last administered on 11/22/18 19:32; Admin Dose 0.5 MG; Start 11/22/18 at 11:00 Clopidogrel Bisulfate (plaVIX) 75 mg DAILY PO Last administered on 12/23/18 08:11; Admin Dose 75 MG; Start 11/23/18 at 09:00 Haloperidol (Haldol) 5 mg Q12H PRN IM agitation Last administered on 11/22/18 19:44; Admin Dose 5 MG; Start 11/22/18 at 14:30 Quetiapine Fumarate (Seroquel) 25 mg QHS PO Last administered on 12/22/18 20:34; Admin Dose 25 MG; Start 11/26/18 at 21:00 Polyethylene Glycol (Miralax) 17 gm DAILY PRN PO constipation Last administered on 12/06/18 06:10; Admin Dose 17 GM; Start 11/29/18 at 08:02 Aspirin (Aspirin) 81 mg DAILY PO Last administered on 12/23/18 08:11; Admin Dose 81 MG; Start 11/29/18 at 09:00 Famotidine (Pepcid) 20 mg DAILY PO Last administered on 12/23/18 08:11; Admin Dose 20 MG; Start 11/29/18 at 09:00 Senna/Docusate Sodium (Senokot-S) 1 tab BID PRN PO constipation Last administered on 12/09/18 08:07; Admin Dose 1 TAB; Start 11/29/18 at 08:30 Lisinopril (Zestril) 2.5 mg DAILY PO Last administered on 12/23/18 08:12; Admin Dose 2.5 MG; Start 12/03/18 at 09:00 Furosemide (Lasix) 20 mg DAILY@0600 PO Last administered on 12/23/18 05:20; Admin Dose 20 MG; Start 12/04/18 at 10:30 Insulin Aspart (Novolog Insulin Pen) NOVOLOG *MODERATE* ALGORITHM WITH MEALS BEDTIME SC Last administered on 12/23/18 12:17; Admin Dose 2 UNIT; Start 12/08/18 at 21:00 Simethicone (Mylicon) 80 mg Q6H PRN PO DISTENSION/GAS/BLOATING; Start 12/13/18 at 17:30 Tramadol HCl (Ultram) 50 mg Q6H PRN PO MODERATE PAIN LEVEL 4-6 Last administered on 12/23/18 08:12; Admin Dose 50 MG; Start 12/14/18 at 17:00 Meropenem/Sodium Chloride 50 ml @ 100 mls/hr Q8 IVPB Last administered on 12/23/18 13:42; Admin Dose 100 MLS/HR; Start 12/15/18 at 12:00 Lactobacillus Acidophilus/ Rhamnosus (Culturelle) 1 cap BID PO Last administered on 12/23/18 08:11; Admin Dose 1 CAP; Start 12/15/18 at 23:30 Loperamide HCl (Imodium Cap) 2 mg Q6H PRN PO DIARRHEA; Start 12/17/18 at 15:00 Amoxicillin (Amoxicillin) 500 mg Q8 PO Last administered on 12/23/18 13:41; Admin Dose 500 MG; Start 12/20/18 at 14:00 Insulin Glargine (Lantus) 40 units DAILY@0800 SC Last administered on 12/23/18 08:10; Admin Dose 40 UNITS; Start 12/22/18 at 08:00 Insulin Aspart (Novolog Insulin Pen) 4 unit WITH MEALS SC Last administered on 12/23/18at 12:17; Admin Dose 4 UNIT; Start 12/21/18 at 17:35 KLEVER HUNT Dec 23, 2018 13:58
[2018-12-23 14:04] VITALS: BP 147/76; PULSE 92; RESP 16
--- NOTE | 2018-12-23 15:25 | CONS ---
Assessment/Plan Assessment/Plan Hospital Course (Demo Recall) No events, awake, looks comfortable, no fevers Micro: Repeat left groin wound culture growing Klebsiella ESBL and again enterococcus species Abx: Meropenem and Amoxicillin Physical examination: Well-developed elderly man who is in no distress head atraumatic normocephalic neck is supple chest rise symmetrical breath sounds CTA heart S1-S2, abdomen soft bowel sounds present extremities with left foot dressing intact Assessment: 1. Bacteremia, cw contaminant 2. UTI per ua==> neg cx 3. Status post cardiac arrest/non-ST elevation [place] 4. Status post acute respiratory failure, possibly aspirated 5. Peripheral arterial disease status post left femoral to posterior tibial bypass 11/08/18 6. Diabetes 7. History of left foot second toe amputation 8. Left groin wound, status post exploration 12/19/18 with wound VAC placement==> no graft involvement Plan: Remains stable, completing abx Consultation Date/Type/Reason Admit Date/Time Nov 04, 2018 at 07:34 Initial Consult Date Type of Consult id Requesting Provider: KARL WOOD MD Date/Time of Note DATE: 12/23/18 TIME: 15:24 Exam/Review of Systems Exam Vitals Vital Signs Date Temp Pulse Resp B/P (MAP) Pulse Ox O2 O2 Flow FiO2 Time Delivery Rate 12/23/18 97.8 92 16 147/76 99 14:04 (99) 12/22/18 Room Air 14:00 12/19/18 6.0 09:20 Intake and Output 12/22/18 12/22/18 12/23/18 1515:00 23:00 07:00 IntakeIntake Total 1430 ml 550 ml 50 ml OutputOutput Total 10 ml 5 ml 10 ml BalanceBalance 1420 ml 545 ml 40 ml Results Result Diagram: 12/23/18 0714 12/23/18 0714 Results 24hrs Laboratory Tests Test 12/22/18 17:07 12/22/18 20:30 12/23/18 02:09 12/23/18 07:14 Bedside Glucose 188 194 207 White Blood Count 8.1 Red Blood Count 3.54 L Hemoglobin 10.6 L Hematocrit 32.4 L Mean Corpuscular Volume 91.5 Mean Corpuscular 29.9 Hemoglobin Mean Corpuscular 32.7 Hemoglobin Concent Red Cell Distribution 13.7 Width Platelet Count 255 # Mean Platelet Volume 9.7 Immature Granulocytes % 1.000 H Neutrophils % 53.8 Lymphocytes % 32.3 Monocytes % 9.6 Eosinophils % 2.6 Basophils % 0.7 Nucleated Red Blood 0.0 Cells % Immature Granulocytes # 0.080 H Neutrophils # 4.4 Lymphocytes # 2.6 Monocytes # 0.8 Eosinophils # 0.2 Basophils # 0.1 Nucleated Red Blood 0.0 Cells # Sodium Level 137 Potassium Level 4.3 Chloride Level 101 Carbon Dioxide Level 28 Anion Gap 8 Blood Urea Nitrogen 20 Creatinine 0.75 Est Glomerular Filtrat Rate mL/min Glucose Level 167 Calcium Level 9.4 Phosphorus Level 3.7 Magnesium Level 1.7 Test 12/23/18 08:00 12/23/18 12:15 Bedside Glucose 145 144 Medications Medication Current Medications Ergocalciferol (Drisdol) 50,000 unit Sa PO Last administered on 12/21/18at 10:49; Admin Dose 50,000 UNIT; Start 11/09/18 at 09:00 Clonidine (Catapres) 0.1 mg Q6H PRN PO SBP>160 Last administered on 11/19/18at 03:04; Admin Dose 0.1 MG; Start 11/04/18 at 09:00 IV Flush (NS 3 ml) 3 ml PER PROTOCOL IV ; Start 11/04/18 at 09:00 Ondansetron HCl (Zofran Inj) 4 mg Q6H PRN IV NAUSEA/VOMITING Last administered on 12/15/18at 16:52; Admin Dose 4 MG; Start 11/04/18 at 09:00 Acetaminophen (Tylenol Tab) 650 mg Q6H PRN PO .PAIN 1-3 OR TEMP Last administered on 12/14/18at 00:29; Admin Dose 650 MG; Start 11/04/18 at 09:00 Miscellaneous Information 1 ea NOTE XX ; Start 11/04/18 at 09:00 Glucose (Glutose) 15 gm Q15M PRN PO DECREASED GLUCOSE Last administered on 12/17/18at 06:56; Admin Dose 15 GM; Start 11/04/18 at 09:00 Glucose (Glutose) 22.5 gm Q15M PRN PO DECREASED GLUCOSE; Start 11/04/18 at 09:00 Dextrose (D50w Syringe) 25 ml Q15M PRN IV DECREASED GLUCOSE; Start 11/04/18 at 09:00 Dextrose (D50w Syringe) 50 ml Q15M PRN IV DECREASED GLUCOSE; Start 11/04/18 at 09:00 Glucagon (Glucagen) 1 mg Q15M PRN IM DECREASED GLUCOSE; Start 11/04/18 at 09:00 Glucose (Glutose) 15 gm Q15M PRN BUCCAL DECREASED GLUCOSE; Start 11/04/18 at 09:00 Miscellaneous Information Patients own medicat... BID@10,16 XX Last administered on 12/18/18at 10:32; Admin Dose 1 EA; Start 11/04/18 at 16:00 Hydralazine HCl (Apresoline) 10 mg Q4H PRN IV sbp >160 Last administered on 11/20/18 14:44; Admin Dose 10 MG; Start 11/08/18 at 09:00 Atropine Sulfate (Atropine) 0.5 mg PRN PRN IV SYMPTOMATIC BRADYCARDIA; Start 11/11/18 at 23:00 Heparin Sodium (Porcine) (Heparin (5000 Units/1ml)) 5,000 unit BID SC Last administered on 12/23/18 08:10; Admin Dose 5,000 UNIT; Start 11/14/18 at 21:00 Bisacodyl (Dulcolax Supp) 10 mg DAILY PRN [place] CONSTIPATION Last administered on 11/14/18 16:43; Admin Dose 10 MG; Start 11/14/18 at 16:30 IV Flush (NS 10 ml) 10 ml PRN PRN IV FLUSH LINE; Start 11/15/18 at 15:30 Gabapentin (Neurontin Liquid) 300 mg BID PO Last administered on 12/23/18 08:11; Admin Dose 300 MG; Start 11/18/18 at 21:00 Ascorbic Acid (Vitamin C) 500 mg DAILY PO Last administered on 12/23/18 08:11; Admin Dose 500 MG; Start 11/20/18 at 09:00 Zinc Sulfate (Zinc Sulfate) 220 mg DAILY PO Last administered on 12/23/18 08:11; Admin Dose 220 MG; Start 11/20/18 at 09:00 Atorvastatin Calcium (Lipitor) 80 mg QHS PO Last administered on 12/22/18 20:34; Admin Dose 80 MG; Start 11/19/18 at 21:00 Lorazepam (Ativan) 0.5 mg Q6H PRN IV anxiety/agitation Last administered on 11/22/18 19:32; Admin Dose 0.5 MG; Start 11/22/18 at 11:00 Clopidogrel Bisulfate (plaVIX) 75 mg DAILY PO Last administered on 12/23/18 08:11; Admin Dose 75 MG; Start 11/23/18 at 09:00 Haloperidol (Haldol) 5 mg Q12H PRN IM agitation Last administered on 11/22/18 19:44; Admin Dose 5 MG; Start 11/22/18 at 14:30 Quetiapine Fumarate (Seroquel) 25 mg QHS PO Last administered on 12/22/18 20:34; Admin Dose 25 MG; Start 11/26/18 at 21:00 Polyethylene Glycol (Miralax) 17 gm DAILY PRN PO constipation Last administered on 12/06/18 06:10; Admin Dose 17 GM; Start 11/29/18 at 08:02 Aspirin (Aspirin) 81 mg DAILY PO Last administered on 12/23/18 08:11; Admin Dose 81 MG; Start 11/29/18 at 09:00 Famotidine (Pepcid) 20 mg DAILY PO Last administered on 12/23/18 08:11; Admin Dose 20 MG; Start 11/29/18 at 09:00 Senna/Docusate Sodium (Senokot-S) 1 tab BID PRN PO constipation Last administered on 12/09/18 08:07; Admin Dose 1 TAB; Start 11/29/18 at 08:30 Lisinopril (Zestril) 2.5 mg DAILY PO Last administered on 12/23/18 08:12; Admin Dose 2.5 MG; Start 12/03/18 at 09:00 Furosemide (Lasix) 20 mg DAILY@0600 PO Last administered on 12/23/18 05:20; Admin Dose 20 MG; Start 12/04/18 at 10:30 Insulin Aspart (Novolog Insulin Pen) NOVOLOG *MODERATE* ALGORITHM WITH MEALS BEDTIME SC Last administered on 12/23/18 12:17; Admin Dose 2 UNIT; Start 12/08/18 at 21:00 Simethicone (Mylicon) 80 mg Q6H PRN PO DISTENSION/GAS/BLOATING; Start 12/13/18 at 17:30 Tramadol HCl (Ultram) 50 mg Q6H PRN PO MODERATE PAIN LEVEL 4-6 Last administered on 12/23/18 08:12; Admin Dose 50 MG; Start 12/14/18 at 17:00 Meropenem/Sodium Chloride 50 ml @ 100 mls/hr Q8 IVPB Last administered on 12/23/18 13:42; Admin Dose 100 MLS/HR; Start 12/15/18 at 12:00 Lactobacillus Acidophilus/ Rhamnosus (Culturelle) 1 cap BID PO Last administered on 12/23/18 08:11; Admin Dose 1 CAP; Start 12/15/18 at 23:30 Loperamide HCl (Imodium Cap) 2 mg Q6H PRN PO DIARRHEA; Start 12/17/18 at 15:00 Amoxicillin (Amoxicillin) 500 mg Q8 PO Last administered on 12/23/18 13:41; Admin Dose 500 MG; Start 12/20/18 at 14:00 Insulin Glargine (Lantus) 40 units DAILY@0800 SC Last administered on 12/23/18 08:10; Admin Dose 40 UNITS; Start 12/22/18 at 08:00 Insulin Aspart (Novolog Insulin Pen) 4 unit WITH MEALS SC Last administered on 12/23/18 12:17; Admin Dose 4 UNIT; Start 12/21/18 at 17:35 HERRERA OBRIEN NP Dec 23, 2018 15:25
--- NOTE | 2018-12-23 15:31 | PN ---
Date/Time of Note Date/Time of Note DATE: 12/23/18 TIME: 15:23 Assessment/Plan VTE Prophylaxis Risk score (from Ns)>0 risk: 5 SCD applied (from Ns): No SCD contraindicated: low risk/ambulating Pharmacological prophylaxis: NA/contraindicated Pharm contraindication: low risk/ambulating Lines/Catheters IV [facility] Urinary Cath still in place: No Assessment/Plan Assessment/Plan 1. Drainage from surgical site and groin area- stable - wound vac changed this am and will continue BID changes every week - s/p surgical exploration the ground surgical site, graft did not need to be replaced, lymph drainage cleaned up by vascular surgeon - CM on board and arranging HH for wound vac changes 2. Groin wound infection, enterococcus and Coag neg staph - wound vac in place per Vasc recommendations - ID on board for antibiotic recommendations and will continue Meropenem 3. 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 - Continue local wound care - Podiatry on board and appreciate consultation. no further procedures scheduled at this time. will need to follow up as outpatient 4. Left frontal CVA - Neurology on board and appreciate recommendations - continue on aspirin and Plavix and statin 5. left-sided internal carotid artery stenosis - 25% per CT angiogram, continue aspirin, statin, Plavix per vascular surgeon 6. Acute hypoxic respiratory failure-resolved - doing well on room air - Pulmonology consultation appreciated 7. Cardiac arrest s/p ROSC - Cardiology on board and appreciate recommendations - ECHO with preserved EF 8. Severe peripheral vascular disease - s/p left femoral endarterectomy, iliofemoral bypass and femoral to posterior tibial bypass done on November 08, 2018 - Vascular surgery consultation appreciated. Continue aspirin and Plavix 9. Diabetes Mellitus - A1c noted - metformin dc'd due to intolerance 10. Acute kidney injury- resolved - nephrology consultation appreciated 11. Essential HTN - Continue home medications at this time as tolerated 12. Peripheral neuropathy - cont. gabapentin 13. HLD - On statin 14. Chronic anemia - Stable H&H. Monitor - no need for transfusions at this time 15. Urinary retention, resolved - Urology on board and appreciate recommendations. - voiding without any issues 16. Disposition - Patient requesting to go home since feels as if he can ambulate well and will use his walker to ambulate around his house Result Diagram: 12/23/18 0714 12/23/18 0714 Results 24hrs Laboratory Tests Test 12/22/18 17:07 12/22/18 20:30 12/23/18 02:09 12/23/18 07:14 Bedside Glucose 188 194 207 White Blood Count 8.1 Red Blood Count 3.54 L Hemoglobin 10.6 L Hematocrit 32.4 L Mean Corpuscular Volume 91.5 Mean Corpuscular 29.9 Hemoglobin Mean Corpuscular 32.7 Hemoglobin Concent Red Cell Distribution 13.7 Width Platelet Count 255 # Mean Platelet Volume 9.7 Immature Granulocytes % 1.000 H Neutrophils % 53.8 Lymphocytes % 32.3 Monocytes % 9.6 Eosinophils % 2.6 Basophils % 0.7 Nucleated Red Blood 0.0 Cells % Immature Granulocytes # 0.080 H Neutrophils # 4.4 Lymphocytes # 2.6 Monocytes # 0.8 Eosinophils # 0.2 Basophils # 0.1 Nucleated Red Blood 0.0 Cells # Sodium Level 137 Potassium Level 4.3 Chloride Level 101 Carbon Dioxide Level 28 Anion Gap 8 Blood Urea Nitrogen 20 Creatinine 0.75 Est Glomerular Filtrat Rate mL/min Glucose Level 167 Calcium Level 9.4 Phosphorus Level 3.7 Magnesium Level 1.7 Test 12/23/18 08:00 12/23/18 12:15 Bedside Glucose 145 144 Subjective 24 Hr Interval Summary Free Text/Dictation Patient denies any acute issues and no overnight events. Ambulating without any issues. Exam/Review of Systems Exam Vitals Vital Signs Date Temp Pulse Resp B/P (MAP) Pulse Ox O2 O2 Flow FiO2 Time Delivery Rate 12/23/18 97.8 92 16 147/76 99 14:04 (99) 12/22/18 Room Air 14:00 12/19/18 6.0 09:20 Intake and Output 12/22/18 12/22/18 12/23/18 1515:00 23:00 07:00 IntakeIntake Total 1430 ml 550 ml 50 ml OutputOutput Total 10 ml 5 ml 10 ml BalanceBalance 1420 ml 545 ml 40 ml Exam General: Patient is laying in bed responding to questions appropriately Mentation: Patient is alert and oriented Neck: Supple, nontender, midline Respiratory: Coarse to auscultation bilaterally. no wheezing or rhonchi Cardiovascular: regular rate and rhythm, no obvious murmurs Gastrointestinal: soft, non-tender to palpation, bowel sounds heard. Skin: No new skin lesions, surgical site bandaged, CDI Results Results 24hrs Laboratory Tests Test 12/22/18 17:07 12/22/18 20:30 12/23/18 02:09 12/23/18 07:14 Bedside Glucose 188 194 207 White Blood Count 8.1 Red Blood Count 3.54 L Hemoglobin 10.6 L Hematocrit 32.4 L Mean Corpuscular Volume 91.5 Mean Corpuscular 29.9 Hemoglobin Mean Corpuscular 32.7 Hemoglobin Concent Red Cell Distribution 13.7 Width Platelet Count 255 # Mean Platelet Volume 9.7 Immature Granulocytes % 1.000 H Neutrophils % 53.8 Lymphocytes % 32.3 Monocytes % 9.6 Eosinophils % 2.6 Basophils % 0.7 Nucleated Red Blood 0.0 Cells % Immature Granulocytes # 0.080 H Neutrophils # 4.4 Lymphocytes # 2.6 Monocytes # 0.8 Eosinophils # 0.2 Basophils # 0.1 Nucleated Red Blood 0.0 Cells # Sodium Level 137 Potassium Level 4.3 Chloride Level 101 Carbon Dioxide Level 28 Anion Gap 8 Blood Urea Nitrogen 20 Creatinine 0.75 Est Glomerular Filtrat Rate mL/min Glucose Level 167 Calcium Level 9.4 Phosphorus Level 3.7 Magnesium Level 1.7 Test 12/23/18 08:00 12/23/18 12:15 Bedside Glucose 145 144 Medications Medication Current Medications Ergocalciferol (Drisdol) 50,000 unit Sa PO Last administered on 12/21/18at 10:49; Admin Dose 50,000 UNIT; Start 11/09/18 at 09:00 Clonidine (Catapres) 0.1 mg Q6H PRN PO SBP>160 Last administered on 11/19/18at 03:04; Admin Dose 0.1 MG; Start 11/04/18 at 09:00 IV Flush (NS 3 ml) 3 ml PER PROTOCOL IV ; Start 11/04/18 at 09:00 Ondansetron HCl (Zofran Inj) 4 mg Q6H PRN IV NAUSEA/VOMITING Last administered on 12/15/18at 16:52; Admin Dose 4 MG; Start 11/04/18 at 09:00 Acetaminophen (Tylenol Tab) 650 mg Q6H PRN PO .PAIN 1-3 OR TEMP Last administered on 12/14/18at 00:29; Admin Dose 650 MG; Start 11/04/18 at 09:00 Miscellaneous Information 1 ea NOTE XX ; Start 11/04/18 at 09:00 Glucose (Glutose) 15 gm Q15M PRN PO DECREASED GLUCOSE Last administered on 12/17/18at 06:56; Admin Dose 15 GM; Start 11/04/18 at 09:00 Glucose (Glutose) 22.5 gm Q15M PRN PO DECREASED GLUCOSE; Start 11/04/18 at 09:00 Dextrose (D50w Syringe) 25 ml Q15M PRN IV DECREASED GLUCOSE; Start 11/04/18 at 09:00 Dextrose (D50w Syringe) 50 ml Q15M PRN IV DECREASED GLUCOSE; Start 11/04/18 at 09:00 Glucagon (Glucagen) 1 mg Q15M PRN IM DECREASED GLUCOSE; Start 11/04/18 at 09:00 Glucose (Glutose) 15 gm Q15M PRN BUCCAL DECREASED GLUCOSE; Start 11/04/18 at 09:00 Miscellaneous Information Patients own medicat... BID@10,16 XX Last administered on 12/18/18at 10:32; Admin Dose 1 EA; Start 11/04/18 at 16:00 Hydralazine HCl (Apresoline) 10 mg Q4H PRN IV sbp >160 Last administered on 11/20/18at 14:44; Admin Dose 10 MG; Start 11/08/18 at 09:00 Atropine Sulfate (Atropine) 0.5 mg PRN PRN IV SYMPTOMATIC BRADYCARDIA; Start 11/11/18 at 23:00 Heparin Sodium (Porcine) (Heparin (5000 Units/1ml)) 5,000 unit BID SC Last administered on 12/23/18at 08:10; Admin Dose 5,000 UNIT; Start 11/14/18 at 21:00 Bisacodyl (Dulcolax Supp) 10 mg DAILY PRN [place] CONSTIPATION Last administered on 11/14/18at 16:43; Admin Dose 10 MG; Start 11/14/18 at 16:30 IV Flush (NS 10 ml) 10 ml PRN PRN IV FLUSH LINE; Start 11/15/18 at 15:30 Gabapentin (Neurontin Liquid) 300 mg BID PO Last administered on 12/23/18at 08:11; Admin Dose 300 MG; Start 11/18/18 at 21:00 Ascorbic Acid (Vitamin C) 500 mg DAILY PO Last administered on 12/23/18 08:11; Admin Dose 500 MG; Start 11/20/18 at 09:00 Zinc Sulfate (Zinc Sulfate) 220 mg DAILY PO Last administered on 12/23/18 08:11; Admin Dose 220 MG; Start 11/20/18 at 09:00 Atorvastatin Calcium (Lipitor) 80 mg QHS PO Last administered on 12/22/18 20:34; Admin Dose 80 MG; Start 11/19/18 at 21:00 Lorazepam (Ativan) 0.5 mg Q6H PRN IV anxiety/agitation Last administered on 11/22 19:32; Admin Dose 0.5 MG; Start 11/22/18 at 11:00 Clopidogrel Bisulfate (plaVIX) 75 mg DAILY PO Last administered on 12/23/18 08:11; Admin Dose 75 MG; Start 11/23/18 at 09:00 Haloperidol (Haldol) 5 mg Q12H PRN IM agitation Last administered on 11/22/18 19:44; Admin Dose 5 MG; Start 11/22/18 at 14:30 Quetiapine Fumarate (Seroquel) 25 mg QHS PO Last administered on 12/22/18 20:34; Admin Dose 25 MG; Start 11/26/18 at 21:00 Polyethylene Glycol (Miralax) 17 gm DAILY PRN PO constipation Last administered on 12/06/18 06:10; Admin Dose 17 GM; Start 11/29/18 at 08:02 Aspirin (Aspirin) 81 mg DAILY PO Last administered on 12/23/18 08:11; Admin Dose 81 MG; Start 11/29/18 at 09:00 Famotidine (Pepcid) 20 mg DAILY PO Last administered on 12/23/18 08:11; Admin Dose 20 MG; Start 11/29/18 at 09:00 Senna/Docusate Sodium (Senokot-S) 1 tab BID PRN PO constipation Last administered on 12/09/18 08:07; Admin Dose 1 TAB; Start 11/29/18 at 08:30 Lisinopril (Zestril) 2.5 mg DAILY PO Last administered on 12/23/18 08:12; Admin Dose 2.5 MG; Start 12/03/18 at 09:00 Furosemide (Lasix) 20 mg DAILY@0600 PO Last administered on 12/23/18 05:20; Admin Dose 20 MG; Start 12/04/18 at 10:30 Insulin Aspart (Novolog Insulin Pen) NOVOLOG *MODERATE* ALGORITHM WITH MEALS BEDTIME SC Last administered on 12/23/18 12:17; Admin Dose 2 UNIT; Start 12/08/18 at 21:00 Simethicone (Mylicon) 80 mg Q6H PRN PO DISTENSION/GAS/BLOATING; Start 12/13/18 at 17:30 Tramadol HCl (Ultram) 50 mg Q6H PRN PO MODERATE PAIN LEVEL 4-6 Last administered on 12/23/18 08:12; Admin Dose 50 MG; Start 12/14/18 at 17:00 Meropenem/Sodium Chloride 50 ml @ 100 mls/hr Q8 IVPB Last administered on 12/23/18 13:42; Admin Dose 100 MLS/HR; Start 12/15/18 at 12:00 Lactobacillus Acidophilus/ Rhamnosus (Culturelle) 1 cap BID PO Last administ ered on 12/23/18 08:11; Admin Dose 1 CAP; Start 12/15/18 at 23:30 Loperamide HCl (Imodium Cap) 2 mg Q6H PRN PO DIARRHEA; Start 12/17/18 at 15:00 Amoxicillin (Amoxicillin) 500 mg Q8 PO Last administered on 12/23/18 13:41; Admin Dose 500 MG; Start 12/20/18 at 14:00 Insulin Glargine (Lantus) 40 units DAILY@0800 SC Last administered on 12/23/18 08:10; Admin Dose 40 UNITS; Start 12/22/18 at 08:00 Insulin Aspart (Novolog Insulin Pen) 4 unit WITH MEALS SC Last administered on 12/23/18 12:17; Admin Dose 4 UNIT; Start 12/21/18 at 17:35 KARL WOOD MD Dec 23, 2018 15:31
[2018-12-23 20:05] VITALS: BP 134/73; PULSE 92; RESP 18
[2018-12-23] MEDS: ATORVASTATIN 80 MG TAB PO SCH (22:20)
[2018-12-23] MEDS: QUETIAPINE 25 MG TAB PO SCH (22:20)
[2018-12-24 02:10] VITALS: BP 149/60; PULSE 97; RESP 18
[2018-12-24] MEDS: AMOXICILLIN 500 MG CAP PO SCH ×3 (05:57→21:41)
[2018-12-24] MEDS: MEROPENEM 1 GM/50ML(PMX) 50 ML IVPB SCH ×3 (05:57→21:42)
[2018-12-24] MEDS: FUROSEMIDE 20 MG TAB PO SCH (05:58)
[2018-12-24 08:00] VITALS: BP 114/59; PULSE 87; RESP 19
[2018-12-24] MEDS: INSULIN ASPART [NOVOLOG] 3 ML PEN SC SCH ×7 (08:00→21:41)
[2018-12-24] MEDS: INSULIN GLARGINE [LANTus] (100 UNITS/ML) SYG SC SCH (08:14)
[2018-12-24] MEDS: HEPARIN 5,000 UNIT/1 ML VIAL SC SCH ×2 (08:16→21:40)
[2018-12-24] MEDS: ASPIRIN 81 MG TAB PO SCH (08:17)
[2018-12-24] MEDS: LACTOBACILLUS RHAMNOSUS CAP PO SCH ×2 (08:17→21:39)
[2018-12-24] MEDS: ZINC SULFATE 220 MG CAP PO SCH (08:17)
[2018-12-24] MEDS: FAMOTIDINE 20 MG TAB PO SCH (08:17)
[2018-12-24] MEDS: ASCORBIC ACID 500 MG TAB PO SCH (08:17)
[2018-12-24] MEDS: CLOPIDOGREL 75 MG TAB PO SCH (08:17)
[2018-12-24] MEDS: GABAPENTIN (50 MG/ML PO SYG) PO SCH ×2 (08:18→21:41)
[2018-12-24] MEDS: LISINOPRIL 5 MG TAB PO SCH (08:18)
--- NOTE | 2018-12-24 12:09 | CONS ---
Assessment/Plan Assessment/Plan Hospital Course (Demo Recall) No events, looks comfortable, no fevers Micro: Repeat left groin wound culture growing Klebsiella ESBL and again enterococcus species Abx: Meropenem and Amoxicillin Physical examination: Well-developed elderly man who is in no distress head atraumatic normocephalic neck is supple chest rise symmetrical breath sounds CTA heart S1-S2, abdomen soft bowel sounds present extremities with left foot dressing intact Assessment: 1. Bacteremia, cw contaminant 2. UTI per ua==> neg cx 3. Status post cardiac arrest/non-ST elevation [place] 4. Status post acute respiratory failure, possibly aspirated 5. Peripheral arterial disease status post left femoral to posterior tibial bypass 11/08/18 6. Diabetes 7. History of left foot second toe amputation 8. Left groin wound, status post exploration 12/19/18 with wound VAC placement==> no graft involvement Plan: Remains stable, completing abx==> 2 more days Consultation Date/Type/Reason Admit Date/Time Nov 04, 2018 at 07:34 Initial Consult Date Type of Consult id Requesting Provider: KARL WOOD MD Date/Time of Note DATE: 12/24/18 TIME: 12:06 Exam/Review of Systems Exam Vitals Vital Signs Date Temp Pulse Resp B/P (MAP) Pulse Ox O2 O2 Flow FiO2 Time Delivery Rate 12/24/18 97.8 87 19 114/59 92 08:00 (77) 12/22/18 Room Air 14:00 Intake and Output 12/23/18 12/23/18 12/24/18 1515:00 23:00 07:00 IntakeIntake Total 770 ml 1800 ml 1305 ml OutputOutput Total 30 ml BalanceBalance 770 ml 1770 ml 1305 ml Results Result Diagram: 12/23/18 0714 12/23/18 0714 Results 24hrs Laboratory Tests Test 12/23/18 12:15 12/23/18 17:09 12/23/18 22:18 12/24/18 08:12 Bedside Glucose 144 99 119 125 Medications Medication Current Medications Ergocalciferol (Drisdol) 50,000 unit Sa PO Last administered on 12/21/18at 10:49; Admin Dose 50,000 UNIT; Start 11/09/18 at 09:00 Clonidine (Catapres) 0.1 mg Q6H PRN PO SBP>160 Last administered on 11/19/18 03:04; Admin Dose 0.1 MG; Start 11/04/18 at 09:00 IV Flush (NS 3 ml) 3 ml PER PROTOCOL IV ; Start 11/04/18 at 09:00 Ondansetron HCl (Zofran Inj) 4 mg Q6H PRN IV NAUSEA/VOMITING Last administered on 12/15/18at 16:52; Admin Dose 4 MG; Start 11/04/18 at 09:00 Acetaminophen (Tylenol Tab) 650 mg Q6H PRN PO .PAIN 1-3 OR TEMP Last administer ed on 12/14/18at 00:29; Admin Dose 650 MG; Start 11/04/18 at 09:00 Miscellaneous Information 1 ea NOTE XX ; Start 11/04/18 at 09:00 Glucose (Glutose) 15 gm Q15M PRN PO DECREASED GLUCOSE Last administered on 12/17/18at 06:56; Admin Dose 15 GM; Start 11/04/18 at 09:00 Glucose (Glutose) 22.5 gm Q15M PRN PO DECREASED GLUCOSE; Start 11/04/18 at 09:00 Dextrose (D50w Syringe) 25 ml Q15M PRN IV DECREASED GLUCOSE; Start 11/04/18 at 09:00 Dextrose (D50w Syringe) 50 ml Q15M PRN IV DECREASED GLUCOSE; Start 11/04/18 at 09:00 Glucagon (Glucagen) 1 mg Q15M PRN IM DECREASED GLUCOSE; Start 11/04/18 at 09:00 Glucose (Glutose) 15 gm Q15M PRN BUCCAL DECREASED GLUCOSE; Start 11/04/18 at 09:00 Miscellaneous Information Patients own medicat... BID@ XX Last administered on 12/18/18at 10:32; Admin Dose 1 EA; Start 11/04/18 at 16:00 Hydralazine HCl (Apresoline) 10 mg Q4H PRN IV sbp >160 Last administered on 11/20/18at 14:44; Admin Dose 10 MG; Start 11/08/18 at 09:00 Atropine Sulfate (Atropine) 0.5 mg PRN PRN IV SYMPTOMATIC BRADYCARDIA; Start 11/11/18 at 23:00 Heparin Sodium (Porcine) (Heparin (5000 Units/1ml)) 5,000 unit BID SC Last administered on 12/24/18 08:16; Admin Dose 5,000 UNIT; Start 11/14/18 at 21:00 Bisacodyl (Dulcolax Supp) 10 mg DAILY PRN [place] CONSTIPATION Last administered on 11/14/18 16:43; Admin Dose 10 MG; Start 11/14/18 at 16:30 IV Flush (NS 10 ml) 10 ml PRN PRN IV FLUSH LINE; Start 11/15/18 at 15:30 Gabapentin (Neurontin Liquid) 300 mg BID PO Last administered on 12/24/18 08:18; Admin Dose 300 MG; Start 11/18/18 at 21:00 Ascorbic Acid (Vitamin C) 500 mg DAILY PO Last administered on 12/24/18 08:17; Admin Dose 500 MG; Start 11/20/18 at 09:00 Zinc Sulfate (Zinc Sulfate) 220 mg DAILY PO Last administered on 12/24/18 08:17; Admin Dose 220 MG; Start 11/20/18 at 09:00 Atorvastatin Calcium (Lipitor) 80 mg QHS PO Last administered on 12/23/18 22:20; Admin Dose 80 MG; Start 11/19/18 at 21:00 Lorazepam (Ativan) 0.5 mg Q6H PRN IV anxiety/agitation Last administered on 19:32; Admin Dose 0.5 MG; Start 11/22/18 at 11:00 Clopidogrel Bisulfate (plaVIX) 75 mg DAILY PO Last administered on 12/24/18 08:17; Admin Dose 75 MG; Start 11/23/18 at 09:00 Haloperidol (Haldol) 5 mg Q12H PRN IM agitation Last administered on 11/22/18 19:44; Admin Dose 5 MG; Start 11/22/18 at 14:30 Quetiapine Fumarate (Seroquel) 25 mg QHS PO Last administered on 12/23/18 22:20; Admin Dose 25 MG; Start 11/26/18 at 21:00 Polyethylene Glycol (Miralax) 17 gm DAILY PRN PO constipation Last administered on 12/06/18 06:10; Admin Dose 17 GM; Start 11/29/18 at 08:02 Aspirin (Aspirin) 81 mg DAILY PO Last administered on 12/24/18 08:17; Admin Dose 81 MG; Start 11/29/18 at 09:00 Famotidine (Pepcid) 20 mg DAILY PO Last administered on 12/24/18 08:17; Admin Dose 20 MG; Start 11/29/18 at 09:00 Senna/Docusate Sodium (Senokot-S) 1 tab BID PRN PO constipation Last administered on 12/09/18 08:07; Admin Dose 1 TAB; Start 11/29/18 at 08:30 Lisinopril (Zestril) 2.5 mg DAILY PO Last administered on 12/24/18 08:18; Admin Dose 2.5 MG; Start 12/03/18 at 09:00 Furosemide (Lasix) 20 mg DAILY@0600 PO Last administered on 12/24/18 05:58; Admin Dose 20 MG; Start 12/04/18 at 10:30 Insulin Aspart (Novolog Insulin Pen) NOVOLOG *MODERATE* ALGORITHM WITH MEALS BEDTIME SC Last administered on 12/23/18 12:17; Admin Dose 2 UNIT; Start 12/08/18 at 21:00 Simethicone (Mylicon) 80 mg Q6H PRN PO DISTENSION/GAS/BLOATING; Start 12/13/18 at 17:30 Tramadol HCl (Ultram) 50 mg Q6H PRN PO MODERATE PAIN LEVEL 4-6 Last administered on 12/23/18 08:12; Admin Dose 50 MG; Start 12/14/18 at 17:00 Meropenem/Sodium Chloride 50 ml @ 100 mls/hr Q8 IVPB Last administered on 12/24/18 05:57; Admin Dose 100 MLS/HR; Start 12/15/18 at 12:00 Lactobacillus Acidophilus/ Rhamnosus (Culturelle) 1 cap BID PO Last adminis tered on 12/24/18 08:17; Admin Dose 1 CAP; Start 12/15/18 at 23:30 Loperamide HCl (Imodium Cap) 2 mg Q6H PRN PO DIARRHEA; Start 12/17/18 at 15:00 Amoxicillin (Amoxicillin) 500 mg Q8 PO Last administered on 12/24/18 05:57; Admin Dose 500 MG; Start 12/20/18 at 14:00 Insulin Glargine (Lantus) 40 units DAILY@0800 SC Last administered on 12/24/18 08:14; Admin Dose 40 UNITS; Start 12/22/18 at 08:00 Insulin Aspart (Novolog Insulin Pen) 4 unit WITH MEALS SC Last administered on 12/24/18at 08:15; Admin Dose 4 UNIT; Start 12/21/18 at 17:35 HERRERA OBRIEN NP Dec 24, 2018 12:09
--- NOTE | 2018-12-24 12:33 | CONS ---
Consult Date/Type/Reason Admit Date/Time Nov 04, 2018 at 07:34 Initial Consult Date 11/11/18 Type of Consultation: Pulm Requesting Provider: KARL WOOD MD Date/Time of Note DATE: 12/24/18 TIME: 12:31 Subjective NO acute events - pt con't to improve - no CP now - will follow clinically. ROS: No fever, no chills, no nausea, no vomiting, no diarrhea/constipation No recent weight changes No chest pain, no PND, no orthopnea No dizziness, blurred vision No thirst, no heat or cold intolerance Objective Vitals Vital Signs Date Temp Pulse Resp B/P (MAP) Pulse Ox O2 O2 Flow FiO2 Time Delivery Rate 12/24/18 97.8 87 19 114/59 92 08:00 (77) 12/22/18 Room Air 14:00 Intake and Output 12/23/18 12/23/18 12/24/18 1515:00 23:00 07:00 IntakeIntake Total 770 ml 1800 ml 1305 ml OutputOutput Total 30 ml BalanceBalance 770 ml 1770 ml 1305 ml Exam General: WN/WD/NAD, AOx 3 HEENT: Unicetric/atraumatic/EOMI (follows commands) NECK: JVD elevated, no thyromegaly Lymph: no lymphadenopathy HEART: regular with no S3, II/ systolic murmur at apex, PMI L LUNGS: Coarse sounds ABD: soft, NT, ND, +BS : Intact Neuro: non focal SKIN: chronic changes EXT: trace edema Results/Medications Result Diagram: 12/23/1814 12/23/18 0714 Results 24 hrs Laboratory Tests Test 12/23/18 17:09 12/23/18 22:18 12/24/18 08:12 12/24/18 12:07 Bedside Glucose 99 119 125 191 Home Meds Active Scripts Silver Sulfadiazine* (Silvadene*) 1% - 20 Gm Cream.gm., 1 APPLIC TOP DAILY, #1 TUB Prov:JESSIE WONG MD 06/12/18 Amoxicillin-Clavulanate K* (Augmentin*) 875 Mg Tab, 875 MG PO BID, #28 TAB Prov:AMANDA GOMEZ MD 06/08/14 Reported Medications Insulin Aspart (Novolog Mix (70/30)) 100 Units/Ml Soln, 28 SC with diinner, VIAL 11/04/18 Insulin Aspart (Novolog Mix (70/30)) 100 Units/Ml Soln, 38 SC WITH BREAKFAST, VIAL 11/04/18 Benazepril Hcl* (Benazepril Hcl*) 40 Mg Tablet, 40 MG PO DAILY, #30 TAB 11/04/18 Ergocalciferol (Vitamin D2) (VITAMIN D2) 50,000 Unit Capsule, 99785 UNIT PO weekly for saturdays, CAP 11/04/18 Omeprazole* (Omeprazole*) 20 Mg Capsule.dr, 20 MG PO DAILY, #30 CAP 11/04/18 Aspirin* (Aspirin* EC) 81 Mg Tablet.dr, 81 MG PO DAILY, TAB 11/04/18 Gabapentin* (Gabapentin*) 300 Mg Capsule, 300 MG PO BID, #60 CAP 11/04/18 Nebivolol Hcl* (Bystolic*) 20 Mg Tablet, 20 MG PO DAILY, #30 TAB 11/04/18 Atorvastatin Calcium* (Atorvastatin Calcium*) 20 Mg Tablet, 20 MG PO QHS, #30 TAB 11/04/18 Sulfasalazine (Azulfidine) 500 Mg Tab, 1000 MG PO TID, TAB 06/02/14 Medications Current Medications Ergocalciferol (Drisdol) 50,000 unit Sa PO Last administered on 12/21/18at 10:49; Admin Dose 50,000 UNIT; Start 11/09/18 at 09:00 Clonidine (Catapres) 0.1 mg Q6H PRN PO SBP>160 Last administered on 11/19/18at 03:04; Admin Dose 0.1 MG; Start 11/04/18 at 09:00 IV Flush (NS 3 ml) 3 ml PER PROTOCOL IV ; Start 11/04/18 at 09:00 Ondansetron HCl (Zofran Inj) 4 mg Q6H PRN IV NAUSEA/VOMITING Last administered on 12/15/18at 16:52; Admin Dose 4 MG; Start 11/04/18 at 09:00 Acetaminophen (Tylenol Tab) 650 mg Q6H PRN PO .PAIN 1-3 OR TEMP Last administered on 12/14/18at 00:29; Admin Dose 650 MG; Start 11/04/18 at 09:00 Miscellaneous Information 1 ea NOTE XX ; Start 11/04/18 at 09:00 Glucose (Glutose) 15 gm Q15M PRN PO DECREASED GLUCOSE Last administered on 12/17/18 06:56; Admin Dose 15 GM; Start 11/04/18 at 09:00 Glucose (Glutose) 22.5 gm Q15M PRN PO DECREASED GLUCOSE; Start 11/04/18 at 09:00 Dextrose (D50w Syringe) 25 ml Q15M PRN IV DECREASED GLUCOSE; Start 11/04/18 at 09:00 Dextrose (D50w Syringe) 50 ml Q15M PRN IV DECREASED GLUCOSE; Start 11/04/18 at 09:00 Glucagon (Glucagen) 1 mg Q15M PRN IM DECREASED GLUCOSE; Start 11/04/18 at 09:00 Glucose (Glutose) 15 gm Q15M PRN BUCCAL DECREASED GLUCOSE; Start 11/04/18 at 09:00 Miscellaneous Information Patients own medicat... BID@10,16 XX Last administered on 12/18/18at 10:32; Admin Dose 1 EA; Start 11/04/18 at 16:00 Hydralazine HCl (Apresoline) 10 mg Q4H PRN IV sbp >160 Last administered on 11/20/18at 14:44; Admin Dose 10 MG; Start 11/08/18 at 09:00 Atropine Sulfate (Atropine) 0.5 mg PRN PRN IV SYMPTOMATIC BRADYCARDIA; Start 11/11/18 at 23:00 Heparin Sodium (Porcine) (Heparin (5000 Units/1ml)) 5,000 unit BID SC Last administered on 12/24/18at 08:16; Admin Dose 5,000 UNIT; Start 11/14/18 at 21:00 Bisacodyl (Dulcolax Supp) 10 mg DAILY PRN [place] CONSTIPATION Last administered on 11/14/18at 16:43; Admin Dose 10 MG; Start 11/14/18 at 16:30 IV Flush (NS 10 ml) 10 ml PRN PRN IV FLUSH LINE; Start 11/15/18 at 15:30 Gabapentin (Neurontin Liquid) 300 mg BID PO Last administered on 12/24/18 08:18; Admin Dose 300 MG; Start 11/18/18 at 21:00 Ascorbic Acid (Vitamin C) 500 mg DAILY PO Last administered on 12/24/18at 08:17; Admin Dose 500 MG; Start 11/20/18 at 09:00 Zinc Sulfate (Zinc Sulfate) 220 mg DAILY PO Last administered on 12/24/18 08:17; Admin Dose 220 MG; Start 11/20/18 at 09:00 Atorvastatin Calcium (Lipitor) 80 mg QHS PO Last administered on 12/23/18 22:20; Admin Dose 80 MG; Start 11/19/18 at 21:00 Lorazepam (Ativan) 0.5 mg Q6H PRN IV anxiety/agitation Last administered on 11/22/18 19:32; Admin Dose 0.5 MG; Start 11/22/18 at 11:00 Clopidogrel Bisulfate (plaVIX) 75 mg DAILY PO Last administered on 12/24/18 08:17; Admin Dose 75 MG; Start 11/23/18 at 09:00 Haloperidol (Haldol) 5 mg Q12H PRN IM agitation Last administered on 11/22/18 19:44; Admin Dose 5 MG; Start 11/22/18 at 14:30 Quetiapine Fumarate (Seroquel) 25 mg QHS PO Last administered on 12/23/18 22:20; Admin Dose 25 MG; Start 11/26/18 at 21:00 Polyethylene Glycol (Miralax) 17 gm DAILY PRN PO constipation Last administered on 12/06/18 06:10; Admin Dose 17 GM; Start 11/29/18 at 08:02 Aspirin (Aspirin) 81 mg DAILY PO Last administered on 12/24/18 08:17; Admin Dose 81 MG; Start 11/29/18 at 09:00 Famotidine (Pepcid) 20 mg DAILY PO Last administered on 12/24/18 08:17; Admin Dose 20 MG; Start 11/29/18 at 09:00 Senna/Docusate Sodium (Senokot-S) 1 tab BID PRN PO constipation Last administered on 12/09/18 08:07; Admin Dose 1 TAB; Start 11/29/18 at 08:30 Lisinopril (Zestril) 2.5 mg DAILY PO Last administered on 12/24/18 08:18; Admin Dose 2.5 MG; Start 12/03/18 at 09:00 Furosemide (Lasix) 20 mg DAILY@0600 PO Last administered on 12/24/18 05:58; Admin Dose 20 MG; Start 12/04/18 at 10:30 Insulin Aspart (Novolog Insulin Pen) NOVOLOG *MODERATE* ALGORITHM WITH MEALS BEDTIME SC Last administered on 12/24/18 12:10; Admin Dose 4 UNIT; Start 12/08/18 at 21:00 Simethicone (Mylicon) 80 mg Q6H PRN PO DISTENSION/GAS/BLOATING; Start 12/13/18 at 17:30 Tramadol HCl (Ultram) 50 mg Q6H PRN PO MODERATE PAIN LEVEL 4-6 Last administered on 12/23/18at 08:12; Admin Dose 50 MG; Start 12/14/18 at 17:00 Meropenem/Sodium Chloride 50 ml @ 100 mls/hr Q8 IVPB Last administered on 12/24/18 05:57; Admin Dose 100 MLS/HR; Start 12/15/18 at 12:00 Lactobacillus Acidophilus/ Rhamnosus (Culturelle) 1 cap BID PO Last administered on 12/24/18 08:17; Admin Dose 1 CAP; Start 12/15/18 at 23:30 Loperamide HCl (Imodium Cap) 2 mg Q6H PRN PO DIARRHEA; Start 12/17/18 at 15:00 Amoxicillin (Amoxicillin) 500 mg Q8 PO Last administered on 12/24/18 05:57; Admin Dose 500 MG; Start 12/20/18 at 14:00 Insulin Glargine (Lantus) 40 units DAILY@0800 SC Last administered on 12/24/18 08:14; Admin Dose 40 UNITS; Start 12/22/18 at 08:00 Insulin Aspart (Novolog Insulin Pen) 4 unit WITH MEALS SC Last administered on 12/24/18 12:09; Admin Dose 4 UNIT; Start 12/21/18 at 17:35 Assessment/Plan Hospital Course (Demo Recall) 1. Preoperative evaluation prior to possible need for peripheral revascularization surgery.-neg trop x 3 and NL EF by echo with no sig valve abnl - s/p decomp[ensation and CODE Blue - pt was rossana last night, now in sinus -now extubated., more alert, Better overall. Con't to improve. 2. Peripheral arterial disease with nonhealing gangrenous changes in left toe ulceration - post op now. Treated. Post op. Site looks well. No edema. Con't to improve. Treated. 3. Hypertension, under reasonable control on current medications. NOW stable. Will allow fpr now. BETTER now. Controlled. 4. Dyslipidemia. 5. Diabetes mellitus- con't to keep euglycemic - on meds. Euglycemic now. On meds. On therapy now. 6. s/p cardiopulmonary arrest - con't resp Rx - pulmonary follows - reasonable saturation now Now in sinus. 7. Bradycardic intermittent by tele - now back to sinus - will monitor - dopa gtt if sustained rossana. Now stable. NO indication for pacer now - HR well maintained now. 8. Positive troponin after arrest-? secondary to or primary to arrest - no intervention planned now. On meds now - will monitor now. 9. Anemia - H/H stableat 11. - no bleeding now, Stable. 10. AMS - will check ECHO r/o large veg per ID rec - ECHO showed no obvious vegetation. On anti-bx now. Con't anti-Bx. RAJI BROWNE MD Dec 24, 2018 12:33
[2018-12-24 14:00] VITALS: BP 163/86; PULSE 92; RESP 17
[2018-12-24] MEDS: hydrALAzine 20 MG INJ IV PRN (14:18)
[2018-12-24 15:43] VITALS: BP 126/69; PULSE 96
--- NOTE | 2018-12-24 16:31 | PN ---
Date/Time of Note Date/Time of Note DATE: 12/24/18 TIME: 16:28 Assessment/Plan VTE Prophylaxis Risk score (from Ns)>0 risk: 4 SCD applied (from Ns): No SCD contraindicated: low risk/ambulating Pharmacological prophylaxis: NA/contraindicated Pharm contraindication: low risk/ambulating Lines/Catheters IV C[facility] Type [facility]from [facility] Urinary Cath still in place: No Assessment/Plan Assessment/Plan 1. Drainage from surgical site and groin area- stable - wound vac changed this am and will continue BID changes every week - s/p surgical exploration the ground surgical site, graft did not need to be replaced, lymph drainage cleaned up by vascular surgeon - CM on board and assisting with SNF placement per sons request 2. Groin wound infection, enterococcus and Coag neg staph - wound vac in place per Vasc recommendations - ID on board for antibiotic recommendations and will continue Meropenem for 2 more days 3. 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 - Continue local wound care - Podiatry on board and appreciate consultation. no further procedures scheduled at this time. will need to follow up as outpatient 4. Left frontal CVA - Neurology on board and appreciate recommendations - continue on aspirin and Plavix and statin 5. left-sided internal carotid artery stenosis - 25% per CT angiogram, continue aspirin, statin, Plavix per vascular surgeon 6. Acute hypoxic respiratory failure-resolved - doing well on room air - Pulmonology consultation appreciated 7. Cardiac arrest s/p ROSC - Cardiology on board and appreciate recommendations - ECHO with preserved EF 8. Severe peripheral vascular disease - s/p left femoral endarterectomy, iliofemoral bypass and femoral to posterior tibial bypass done on November 08, 2018 - Vascular surgery consultation appreciated. Continue aspirin and Plavix 9. Diabetes Mellitus - A1c noted - metformin dc'd due to intolerance 10. Acute kidney injury- resolved - nephrology consultation appreciated 11. Essential HTN - Continue home medications at this time as tolerated 12. Peripheral neuropathy - cont. gabapentin 13. HLD - On statin 14. Chronic anemia - Stable H&H. Monitor - no need for transfusions at this time 15. Urinary retention, resolved - Urology on board and appreciate recommendations. - voiding without any issues 16. Disposition - CM on board for SNF placement while requiring wound vac care Result Diagram: 12/23/18 0714 12/23/18 0714 Results 24hrs Laboratory Tests Test 12/23/18 17:09 12/23/18 22:18 12/24/18 08:12 12/24/18 12:07 Bedside Glucose 99 119 125 191 Subjective 24 Hr Interval Summary Free Text/Dictation Patient doing well and denies any acute issues. Discussed sons concern about going home with both FWW and wound vac since will be home alone during most of the day. Agreeable to SNF while requiring wound vac. Exam/Review of Systems Exam Vitals Vital Signs Date Temp Pulse Resp B/P (MAP) Pulse Ox O2 O2 Flow FiO2 Time Delivery Rate 12/24/18 96 126/69 15:43 (88) 12/24/18 97.6 17 97 14:00 12/22/18 Room Air 14:00 Intake and Output 12/23/18 12/23/18 12/24/18 1515:00 23:00 07:00 IntakeIntake Total 770 ml 1800 ml 1305 ml OutputOutput Total 30 ml BalanceBalance 770 ml 1770 ml 1305 ml Exam General: Patient is laying in bed responding to questions appropriately Mentation: Patient is alert and oriented Neck: Supple, nontender, midline Respiratory: Diminished. no wheezing or rhonchi Cardiovascular: regular rate and rhythm, no obvious murmurs Gastrointestinal: soft, non-tender to palpation, bowel sounds heard. Skin: No new skin lesions, surgical site bandaged, CDI Results Results 24hrs Laboratory Tests Test 12/23/18 17:09 12/23/18 22:18 12/24/18 08:12 12/24/18 12:07 Bedside Glucose 99 119 125 191 Medications Medication Current Medications Ergocalciferol (Drisdol) 50,000 unit Sa PO Last administered on 12/21/18at 10:49; Admin Dose 50,000 UNIT; Start 11/09/18 at 09:00 Clonidine (Catapres) 0.1 mg Q6H PRN PO SBP>160 Last administered on 11/19/18at 03:04; Admin Dose 0.1 MG; Start 11/04/18 at 09:00 IV Flush (NS 3 ml) 3 ml PER PROTOCOL IV ; Start 11/04/18 at 09:00 Ondansetron HCl (Zofran Inj) 4 mg Q6H PRN IV NAUSEA/VOMITING Last administered on 12/15/18 16:52; Admin Dose 4 MG; Start 11/04/18 at 09:00 Acetaminophen (Tylenol Tab) 650 mg Q6H PRN PO .PAIN 1-3 OR TEMP Last administered on 12/14/18 00:29; Admin Dose 650 MG; Start 11/04/18 at 09:00 Miscellaneous Information 1 ea NOTE XX ; Start 11/04/18 at 09:00 Glucose (Glutose) 15 gm Q15M PRN PO DECREASED GLUCOSE Last administered on 12/17/18 06:56; Admin Dose 15 GM; Start 11/04/18 at 09:00 Glucose (Glutose) 22.5 gm Q15M PRN PO DECREASED GLUCOSE; Start 11/04/18 at 09:00 Dextrose (D50w Syringe) 25 ml Q15M PRN IV DECREASED GLUCOSE; Start 11/04/18 at 09:00 Dextrose (D50w Syringe) 50 ml Q15M PRN IV DECREASED GLUCOSE; Start 11/04/18 at 09:00 Glucagon (Glucagen) 1 mg Q15M PRN IM DECREASED GLUCOSE; Start 11/04/18 at 09:00 Glucose (Glutose) 15 gm Q15M PRN BUCCAL DECREASED GLUCOSE; Start 11/04/18 at 09:00 Miscellaneous Information Patients own medicat... BID@10,16 XX Last administered on 12/18/18at 10:32; Admin Dose 1 EA; Start 11/04/18 at 16:00 Hydralazine HCl (Apresoline) 10 mg Q4H PRN IV sbp >160 Last administered on 14:18; Admin Dose 10 MG; Start 11/08/18 at 09:00 Atropine Sulfate (Atropine) 0.5 mg PRN PRN IV SYMPTOMATIC BRADYCARDIA; Start 11/11/18 at 23:00 Heparin Sodium (Porcine) (Heparin (5000 Units/1ml)) 5,000 unit BID SC Last administered on 12/24/18 08:16; Admin Dose 5,000 UNIT; Start 11/14/18 at 21:00 Bisacodyl (Dulcolax Supp) 10 mg DAILY PRN [place] CONSTIPATION Last administered on 11/14/18at 16:43; Admin Dose 10 MG; Start 11/14/18 at 16:30 IV Flush (NS 10 ml) 10 ml PRN PRN IV FLUSH LINE; Start 11/15/18 at 15:30 Gabapentin (Neurontin Liquid) 300 mg BID PO Last administered on 12/24/18 08: 18; Admin Dose 300 MG; Start 11/18/18 at 21:00 Ascorbic Acid (Vitamin C) 500 mg DAILY PO Last administered on 12/24/18 08:17; Admin Dose 500 MG; Start 11/20/18 at 09:00 Zinc Sulfate (Zinc Sulfate) 220 mg DAILY PO Last administered on 12/24/18 08:17; Admin Dose 220 MG; Start 11/20/18 at 09:00 Atorvastatin Calcium (Lipitor) 80 mg QHS PO Last administered on 12/23/18 22:20; Admin Dose 80 MG; Start 11/19/18 at 21:00 Lorazepam (Ativan) 0.5 mg Q6H PRN IV anxiety/agitation Last administered on 11/22/18 19:32; Admin Dose 0.5 MG; Start 11/22/18 at 11:00 Clopidogrel Bisulfate (plaVIX) 75 mg DAILY PO Last administered on 12/24/18 08:17; Admin Dose 75 MG; Start 11/23/18 at 09:00 Haloperidol (Haldol) 5 mg Q12H PRN IM agitation Last administered on 11/22/18 19:44; Admin Dose 5 MG; Start 11/22/18 at 14:30 Quetiapine Fumarate (Seroquel) 25 mg QHS PO Last administered on 12/23/18 22:20; Admin Dose 25 MG; Start 11/26/18 at 21:00 Polyethylene Glycol (Miralax) 17 gm DAILY PRN PO constipation Last administered on 12/06/18 06:10; Admin Dose 17 GM; Start 11/29/18 at 08:02 Aspirin (Aspirin) 81 mg DAILY PO Last administered on 12/24/18 08:17; Admin Dose 81 MG; Start 11/29/18 at 09:00 Famotidine (Pepcid) 20 mg DAILY PO Last administered on 12/24/18 08:17; Admin Dose 20 MG; Start 11/29/18 at 09:00 Senna/Docusate Sodium (Senokot-S) 1 tab BID PRN PO constipation Last administered on 12/09/18 08:07; Admin Dose 1 TAB; Start 11/29/18 at 08:30 Lisinopril (Zestril) 2.5 mg DAILY PO Last administered on 12/24/18 08:18; Admin Dose 2.5 MG; Start 12/03/18 at 09:00 Furosemide (Lasix) 20 mg DAILY@0600 PO Last administered on 12/24/18 05:58; Admin Dose 20 MG; Start 12/04/18 at 10:30 Insulin Aspart (Novolog Insulin Pen) NOVOLOG *MODERATE* ALGORITHM WITH MEALS BEDTIME SC Last administered on 12/24/18 12:10; Admin Dose 4 UNIT; Start 12/08/18 at 21:00 Simethicone (Mylicon) 80 mg Q6H PRN PO DISTENSION/GAS/BLOATING; Start 12/13/18 at 17:30 Tramadol HCl (Ultram) 50 mg Q6H PRN PO MODERATE PAIN LEVEL 4-6 Last administered on 12/23/18 08:12; Admin Dose 50 MG; Start 12/14/18 at 17:00 Meropenem/Sodium Chloride 50 ml @ 100 mls/hr Q8 IVPB Last administered on 12/24/18 13:33; Admin Dose 100 MLS/HR; Start 12/15/18 at 12:00 Lactobacillus Acidophilus/ Rhamnosus (Culturelle) 1 cap BID PO Last administered on 12/24/18 08:17; Admin Dose 1 CAP; Start 12/15/18 at 23:30 Loperamide HCl (Imodium Cap) 2 mg Q6H PRN PO DIARRHEA; Start 12/17/18 at 15:00 Amoxicillin (Amoxicillin) 500 mg Q8 PO Last administered on 12/24/18 13:33; Admin Dose 500 MG; Start 12/20/18 at 14:00 Insulin Glargine (Lantus) 40 units DAILY@0800 SC Last administered on 12/24/18 08:14; Admin Dose 40 UNITS; Start 12/22/18 at 08:00 Insulin Aspart (Novolog Insulin Pen) 4 unit WITH MEALS SC Last administered on 12/24/18 12:09; Admin Dose 4 UNIT; Start 12/21/18 at 17:35 KARL WOOD MD Dec 24, 2018 16:31
[2018-12-24] MEDS: traMADol 50 MG TAB PO PRN ×2 (17:04→23:25)
[2018-12-24 19:52] VITALS: BP 148/73; PULSE 104; RESP 18
[2018-12-24] MEDS: ATORVASTATIN 80 MG TAB PO SCH (21:41)
[2018-12-24] MEDS: QUETIAPINE 25 MG TAB PO SCH (21:41)
[2018-12-25 02:01] VITALS: BP 122/69; PULSE 99; RESP 18
[2018-12-25] MEDS: AMOXICILLIN 500 MG CAP PO SCH ×3 (06:27→20:58)
[2018-12-25] MEDS: MEROPENEM 1 GM/50ML(PMX) 50 ML IVPB SCH ×3 (06:28→20:55)
[2018-12-25] MEDS: FUROSEMIDE 20 MG TAB PO SCH (06:28)
[2018-12-25] MEDS: FAMOTIDINE 20 MG TAB PO SCH (08:11)
[2018-12-25] MEDS: ASPIRIN 81 MG TAB PO SCH (08:11)
[2018-12-25] MEDS: ASCORBIC ACID 500 MG TAB PO SCH (08:11)
[2018-12-25] MEDS: LACTOBACILLUS RHAMNOSUS CAP PO SCH ×2 (08:12→20:55)
[2018-12-25] MEDS: GABAPENTIN (50 MG/ML PO SYG) PO SCH ×2 (08:12→20:59)
[2018-12-25] MEDS: ZINC SULFATE 220 MG CAP PO SCH (08:12)
[2018-12-25] MEDS: CLOPIDOGREL 75 MG TAB PO SCH (08:12)
[2018-12-25] MEDS: INSULIN GLARGINE [LANTus] (100 UNITS/ML) SYG SC SCH (08:13)
[2018-12-25] MEDS: INSULIN ASPART [NOVOLOG] 3 ML PEN SC SCH ×7 (08:14→20:57)
[2018-12-25] MEDS: LISINOPRIL 5 MG TAB PO SCH (08:15)
[2018-12-25 08:20] VITALS: BP 123/67; PULSE 85; RESP 18
[2018-12-25] MEDS: HEPARIN 5,000 UNIT/1 ML VIAL SC SCH ×2 (08:21→20:58)
--- NOTE | 2018-12-25 12:00 | CONS ---
Assessment/Plan Assessment/Plan Assessment/Plan (Daily) Left foot 5th toe amputation. History of gangrene. Edema. Peripheral arterial disease status post left lower extremity bypass. PLAN: Patient stable for discharge from podiatry standpoint. Information provided for outpatient clinic follow up. No further podiatric procedures planned. Consultation Date/Type/Reason Admit Date/Time Nov 04, 2018 at 07:34 Initial Consult Date Requesting Provider: KARL WOOD MD Date/Time of Note DATE: 12/25/18 TIME: 12:00 24 HR Interval Summary Free Text/Dictation No acute events overnight. Exam/Review of Systems Exam Vitals Vital Signs Date Temp Pulse Resp B/P (MAP) Pulse Ox O2 O2 Flow FiO2 Time Delivery Rate 12/25/18 98.2 85 18 123/67 98 Room Air 08:20 (85) Intake and Output 12/24/18 12/24/18 12/25/18 1515:00 23:00 07:00 IntakeIntake Total 890 ml 1330 ml 50 ml OutputOutput Total 0 ml BalanceBalance 890 ml 1330 ml 50 ml Exam Left foot amputation site healed. Minimal edema. Mycotic nails. No signs of pressure sore, bypass pulse 3+. Results Result Diagram: 12/23/18 0714 12/23/18 0714 Results 24hrs Laboratory Tests Test 12/24/18 12:07 12/24/18 17:10 12/24/18 21:38 12/25/18 08:10 Bedside Glucose 191 242 H 276 H 171 Medications Medication Current Medications Ergocalciferol (Drisdol) 50,000 unit Sa PO Last administered on 12/21/18at 10:49; Admin Dose 50,000 UNIT; Start 11/09/18 at 09:00 Clonidine (Catapres) 0.1 mg Q6H PRN PO SBP>160 Last administered on 11/19/18at 03:04; Admin Dose 0.1 MG; Start 11/04/18 at 09:00 IV Flush (NS 3 ml) 3 ml PER PROTOCOL IV ; Start 11/04/18 at 09:00 Ondansetron HCl (Zofran Inj) 4 mg Q6H PRN IV NAUSEA/VOMITING Last administered on 12/15/18at 16:52; Admin Dose 4 MG; Start 11/04/18 at 09:00 Acetaminophen (Tylenol Tab) 650 mg Q6H PRN PO .PAIN 1-3 OR TEMP Last administered on 12/14/18at 00:29; Admin Dose 650 MG; Start 11/04/18 at 09:00 Miscellaneous Information 1 ea NOTE XX ; Start 11/04/18 at 09:00 Glucose (Glutose) 15 gm Q15M PRN PO DECREASED GLUCOSE Last administered on 12/17/18at 06:56; Admin Dose 15 GM; Start 11/04/18 at 09:00 Glucose (Glutose) 22.5 gm Q15M PRN PO DECREASED GLUCOSE; Start 11/04/18 at 09:00 Dextrose (D50w Syringe) 25 ml Q15M PRN IV DECREASED GLUCOSE; Start 11/04/18 at 09:00 Dextrose (D50w Syringe) 50 ml Q15M PRN IV DECREASED GLUCOSE; Start 11/04/18 at 09:00 Glucagon (Glucagen) 1 mg Q15M PRN IM DECREASED GLUCOSE; Start 11/04/18 at 09:00 Glucose (Glutose) 15 gm Q15M PRN BUCCAL DECREASED GLUCOSE; Start 11/04/18 at 09:00 Miscellaneous Information Patients own medicat... BID@10,16 XX Last administered on 12/18/18at 10:32; Admin Dose 1 EA; Start 11/04/18 at 16:00 Hydralazine HCl (Apresoline) 10 mg Q4H PRN IV sbp >160 Last administered on 12/24/18at 14:18; Admin Dose 10 MG; Start 11/08/18 at 09:00 Atropine Sulfate (Atropine) 0.5 mg PRN PRN IV SYMPTOMATIC BRADYCARDIA; Start 11/11/18 at 23:00 Heparin Sodium (Porcine) (Heparin (5000 Units/1ml)) 5,000 unit BID SC Last administered on 12/25/18at 08:21; Admin Dose 5,000 UNIT; Start 11/14/18 at 21:00 Bisacodyl (Dulcolax Supp) 10 mg DAILY PRN [place] CONSTIPATION Last administered on 11/14/18at 16:43; Admin Dose 10 MG; Start 11/14/18 at 16:30 IV Flush (NS 10 ml) 10 ml PRN PRN IV FLUSH LINE; Start 11/15/18 at 15:30 Gabapentin (Neurontin Liquid) 300 mg BID PO Last administered on 12/25/18 08:12; Admin Dose 300 MG; Start 11/18/18 at 21:00 Ascorbic Acid (Vitamin C) 500 mg DAILY PO Last administered on 12/25/18 08:11; Admin Dose 500 MG; Start 11/20/18 at 09:00 Zinc Sulfate (Zinc Sulfate) 220 mg DAILY PO Last administered on 12/25/18 0 8:12; Admin Dose 220 MG; Start 11/20/18 at 09:00 Atorvastatin Calcium (Lipitor) 80 mg QHS PO Last administered on 12/24/18 21:41; Admin Dose 80 MG; Start 11/19/18 at 21:00 Lorazepam (Ativan) 0.5 mg Q6H PRN IV anxiety/agitation Last administered on 11/22/18 19:32; Admin Dose 0.5 MG; Start 11/22/18 at 11:00 Clopidogrel Bisulfate (plaVIX) 75 mg DAILY PO Last administered on 12/25/18 08:12; Admin Dose 75 MG; Start 11/23/18 at 09:00 Haloperidol (Haldol) 5 mg Q12H PRN IM agitation Last administered on 11/22/18 19:44; Admin Dose 5 MG; Start 11/22/18 at 14:30 Quetiapine Fumarate (Seroquel) 25 mg QHS PO Last administered on 12/24/18 21:41; Admin Dose 25 MG; Start 11/26/18 at 21:00 Polyethylene Glycol (Miralax) 17 gm DAILY PRN PO constipation Last administered on 12/06/18 06:10; Admin Dose 17 GM; Start 11/29/18 at 08:02 Aspirin (Aspirin) 81 mg DAILY PO Last administered on 12/25/18 08:11; Admin Dose 81 MG; Start 11/29/18 at 09:00 Famotidine (Pepcid) 20 mg DAILY PO Last administered on 12/25/18 08:11; Admin Dose 20 MG; Start 11/29/18 at 09:00 Senna/Docusate Sodium (Senokot-S) 1 tab BID PRN PO constipation Last administered on 12/09/18 08:07; Admin Dose 1 TAB; Start 11/29/18 at 08:30 Lisinopril (Zestril) 2.5 mg DAILY PO Last administered on 12/25/18 08:15; Admin Dose 2.5 MG; Start 12/03/18 at 09:00 Furosemide (Lasix) 20 mg DAILY@0600 PO Last administered on 12/25/18 06:28; Admin Dose 20 MG; Start 12/04/18 at 10:30 Insulin Aspart (Novolog Insulin Pen) NOVOLOG *MODERATE* ALGORITHM WITH MEALS BEDTIME SC Last administered on 12/25/18 08:14; Admin Dose 2 UNIT; Start 12/08/18 at 21:00 Simethicone (Mylicon) 80 mg Q6H PRN PO DISTENSION/GAS/BLOATING; Start 12/13/18 at 17:30 Tramadol HCl (Ultram) 50 mg Q6H PRN PO MODERATE PAIN LEVEL 4-6 Last administered on 12/24/18 23:25; Admin Dose 50 MG; Start 12/14/18 at 17:00 Meropenem/Sodium Chloride 50 ml @ 100 mls/hr Q8 IVPB Last administered on 12/25/18 06:28; Admin Dose 100 MLS/HR; Start 12/15/18 at 12:00 Lactobacillus Acidophilus/ Rhamnosus (Culturelle) 1 cap BID PO Last administered on 12/25/18 08:12; Admin Dose 1 CAP; Start 12/15/18 at 23:30 Loperamide HCl (Imodium Cap) 2 mg Q6H PRN PO DIARRHEA; Start 12/17/18 at 15:00 Amoxicillin (Amoxicillin) 500 mg Q8 PO Last administered on 12/25/18 06:27; Admin Dose 500 MG; Start 12/20/18 at 14:00 Insulin Glargine (Lantus) 40 units DAILY@0800 SC Last administered on 12/25/18 08:13; Admin Dose 40 UNITS; Start 12/22/18 at 08:00 Insulin Aspart (Novolog Insulin Pen) 4 unit WITH MEALS SC Last administered on 12/25/18 08:14; Admin Dose 4 UNIT; Start 12/21/18 at 17:35 IVELISSE BLACKWELL DPM Dec 25, 2018 12:00
--- NOTE | 2018-12-25 12:09 | CONS ---
Assessment/Plan Assessment/Plan Hospital Course (Demo Recall) No events Micro: Repeat left groin wound culture growing Klebsiella ESBL and again enterococcus species Abx: Meropenem and Amoxicillin Physical examination: Well-developed elderly man who is in no distress head atraumatic normocephalic neck is supple chest rise symmetrical breath sounds CTA heart S1-S2, abdomen soft bowel sounds present extremities with left foot dressing intact Assessment: 1. Bacteremia, cw contaminant 2. UTI per ua==> neg cx 3. Status post cardiac arrest/non-ST elevation [place] 4. Status post acute respiratory failure, possibly aspirated 5. Peripheral arterial disease status post left femoral to posterior tibial bypass 11/08/18 6. Diabetes 7. History of left foot second toe amputation 8. Left groin wound, status post exploration 12/19/18 with wound VAC placement==> no graft involvement Plan: Remains stable, completing abx, last dose tomorrow Consultation Date/Type/Reason Admit Date/Time Nov 04, 2018 at 07:34 Initial Consult Date Type of Consult id Requesting Provider: KARL WOOD MD Date/Time of Note DATE: 12/25/18 TIME: 11:57 Exam/Review of Systems Exam Vitals Vital Signs Date Temp Pulse Resp B/P (MAP) Pulse Ox O2 O2 Flow FiO2 Time Delivery Rate 12/25/18 98.2 85 18 123/67 98 Room Air 08:20 (85) Intake and Output 12/24/18 12/24/18 12/25/18 1515:00 23:00 07:00 IntakeIntake Total 890 ml 1330 ml 50 ml OutputOutput Total 0 ml BalanceBalance 890 ml 1330 ml 50 ml Results Result Diagram: 12/23/18 0714 12/23/18 0714 Results 24hrs Laboratory Tests Test 12/24/18 12:07 12/24/18 17:10 12/24/18 21:38 12/25/18 08:10 Bedside Glucose 191 242 H 276 H 171 Medications Medication Current Medications Ergocalciferol (Drisdol) 50,000 unit Sa PO Last administered on 12/21/18at 10:49; Admin Dose 50,000 UNIT; Start 11/09/18 at 09:00 Clonidine (Catapres) 0.1 mg Q6H PRN PO SBP>160 Last administered on 11/19/18at 03:04; Admin Dose 0.1 MG; Start 11/04/18 at 09:00 IV Flush (NS 3 ml) 3 ml PER PROTOCOL IV ; Start 11/04/18 at 09:00 Ondansetron HCl (Zofran Inj) 4 mg Q6H PRN IV NAUSEA/VOMITING Last administered on 12/15/18at 16:52; Admin Dose 4 MG; Start 11/04/18 at 09:00 Acetaminophen (Tylenol Tab) 650 mg Q6H PRN PO .PAIN 1-3 OR TEMP Last administered on 12/14/18at 00:29; Admin Dose 650 MG; Start 11/04/18 at 09:00 Miscellaneous Information 1 ea NOTE XX ; Start 11/04/18 at 09:00 Glucose (Glutose) 15 gm Q15M PRN PO DECREASED GLUCOSE Last administered on 12/17/18at 06:56; Admin Dose 15 GM; Start 11/04/18 at 09:00 Glucose (Glutose) 22.5 gm Q15M PRN PO DECREASED GLUCOSE; Start 11/04/18 at 09:00 Dextrose (D50w Syringe) 25 ml Q15M PRN IV DECREASED GLUCOSE; Start 11/04/18 at 09:00 Dextrose (D50w Syringe) 50 ml Q15M PRN IV DECREASED GLUCOSE; Start 11/04/18 at 09:00 Glucagon (Glucagen) 1 mg Q15M PRN IM DECREASED GLUCOSE; Start 11/04/18 at 09:00 Glucose (Glutose) 15 gm Q15M PRN BUCCAL DECREASED GLUCOSE; Start 11/04/18 at 09:00 Miscellaneous Information Patients own medicat... BID@,16 XX Last administered on 12/18/18at 10:32; Admin Dose 1 EA; Start 11/04/18 at 16:00 Hydralazine HCl (Apresoline) 10 mg Q4H PRN IV sbp >160 Last administered on 12/24/18at 14:18; Admin Dose 10 MG; Start 11/08/18 at 09:00 Atropine Sulfate (Atropine) 0.5 mg PRN PRN IV SYMPTOMATIC BRADYCARDIA; Start 11/11/18 at 23:00 Heparin Sodium (Porcine) (Heparin (5000 Units/1ml)) 5,000 unit BID SC Last administered on 12/25/18at 08:21; Admin Dose 5,000 UNIT; Start 11/14/18 at 21:00 Bisacodyl (Dulcolax Supp) 10 mg DAILY PRN [place] CONSTIPATION Last administered on 11/14/18 16:43; Admin Dose 10 MG; Start 11/14/18 at 16:30 IV Flush (NS 10 ml) 10 ml PRN PRN IV FLUSH LINE; Start 11/15/18 at 15:30 Gabapentin (Neurontin Liquid) 300 mg BID PO Last administered on 12/25/18 08:12; Admin Dose 300 MG; Start 11/18/18 at 21:00 Ascorbic Acid (Vitamin C) 500 mg DAILY PO Last administered on 12/25/18 08:11; Admin Dose 500 MG; Start 11/20/18 at 09:00 Zinc Sulfate (Zinc Sulfate) 220 mg DAILY PO Last administered on 12/25/18 08:12; Admin Dose 220 MG; Start 11/20/18 at 09:00 Atorvastatin Calcium (Lipitor) 80 mg QHS PO Last administered on 12/24/18 21:41; Admin Dose 80 MG; Start 11/19/18 at 21:00 Lorazepam (Ativan) 0.5 mg Q6H PRN IV anxiety/agitation Last administered on 11/22/18 19:32; Admin Dose 0.5 MG; Start 11/22/18 at 11:00 Clopidogrel Bisulfate (plaVIX) 75 mg DAILY PO Last administered on 12/25/18 08:12; Admin Dose 75 MG; Start 11/23/18 at 09:00 Haloperidol (Haldol) 5 mg Q12H PRN IM agitation Last administered on 11/22/18 19:44; Admin Dose 5 MG; Start 11/22/18 at 14:30 Quetiapine Fumarate (Seroquel) 25 mg QHS PO Last administered on 12/24/18 21:41; Admin Dose 25 MG; Start 11/26/18 at 21:00 Polyethylene Glycol (Miralax) 17 gm DAILY PRN PO constipation Last administered on 12/06/18 06:10; Admin Dose 17 GM; Start 11/29/18 at 08:02 Aspirin (Aspirin) 81 mg DAILY PO Last administered on 12/25/18 08:11; Admin Dose 81 MG; Start 11/29/18 at 09:00 Famotidine (Pepcid) 20 mg DAILY PO Last administered on 12/25/18 08:11; Admin Dose 20 MG; Start 11/29/18 at 09:00 Senna/Docusate Sodium (Senokot-S) 1 tab BID PRN PO constipation Last administered on 12/09/18 08:07; Admin Dose 1 TAB; Start 11/29/18 at 08:30 Lisinopril (Zestril) 2.5 mg DAILY PO Last administered on 12/25/18 08:15; Admin Dose 2.5 MG; Start 12/03/18 at 09:00 Furosemide (Lasix) 20 mg DAILY@0600 PO Last administered on 12/25/18 06:28; Admin Dose 20 MG; Start 12/04/18 at 10:30 Insulin Aspart (Novolog Insulin Pen) NOVOLOG *MODERATE* ALGORITHM WITH MEALS BEDTIME SC Last administered on 12/25/18 08:14; Admin Dose 2 UNIT; Start 12/08/18 at 21:00 Simethicone (Mylicon) 80 mg Q6H PRN PO DISTENSION/GAS/BLOATING; Start 12/13/18 at 17:30 Tramadol HCl (Ultram) 50 mg Q6H PRN PO MODERATE PAIN LEVEL 4-6 Last administered on 12/24/18 23:25; Admin Dose 50 MG; Start 12/14/18 at 17:00 Meropenem/Sodium Chloride 50 ml @ 100 mls/hr Q8 IVPB Last administered on 12/25/18 06:28; Admin Dose 100 MLS/HR; Start 12/15/18 at 12:00 Lactobacillus Acidophilus/ Rhamnosus (Culturelle) 1 cap BID PO Last administered on 12/25/18 08:12; Admin Dose 1 CAP; Start 12/15/18 at 23:30 Loperamide HCl (Imodium Cap) 2 mg Q6H PRN PO DIARRHEA; Start 12/17/18 at 15:00 Amoxicillin (Amoxicillin) 500 mg Q8 PO Last administered on 12/25/18 06:27; Admin Dose 500 MG; Start 12/20/18 at 14:00 Insulin Glargine (Lantus) 40 units DAILY@0800 SC Last administered on 12/25/18 08:13; Admin Dose 40 UNITS; Start 12/22/18 at 08:00 Insulin Aspart (Novolog Insulin Pen) 4 unit WITH MEALS SC Last administered on 12/25/18at 08:14; Admin Dose 4 UNIT; Start 12/21/18 at 17:35 HERRERA OBRIEN NP Dec 25, 2018 12:09
[2018-12-25 13:48] VITALS: BP 108/55; PULSE 93; RESP 18
--- NOTE | 2018-12-25 14:27 | CONS ---
Assessment/Plan Assessment/Plan Hospital Course (Demo Recall) IMPRESSION: 1. Preoperative evaluation prior to possible need for peripheral revascularization surgery.-neg trop x 3 and NL EF by echo with no sig valve abnl. Echo repeat 11/13 with NL EF 2. Peripheral arterial disease with nonhealing gangrenous changes in left toe ulceration. 3. Hypertension-now tolerating low dose ACEI but with verey labile BP. Will follow 4. Dyslipidemia. 5. Diabetes mellitus. 6. s/p cardiopulmonary arrest 7. Bradycardic intermittent by tele-now resolved 8. Positive troponin after arrest-? secondary to or primary to arrest, likely secondary to arrest, type 2 demand infarct, as no significant uptrend and now downtrended to negative 9. Resp failure-s/p extubation 10. CVA-Acute by MRI 11.Groin wound now post-op s/p groin exploration/ligation of leaking lymphatics with placement of VAC 12. Loose stools Recc: -Now on med-surg -Continue asa/plavix/statin for cva -serial ecg's -Continue now amoxicillin and f/u bld cx's and exam -local wound care -follow volume status closely on daily PO lasix -follow MS closely -Continue now zestril mononotherapy at reduced dose and follow labile BP closely with possible need to increase dose. -metformin held, follow BS clsoely Consultation Date/Type/Reason Admit Date/Time Nov 04, 2018 at 07:34 Initial Consult Date 11/06/18 Type of Consult Cardiology Reason for Consultation HTN Requesting Provider: KARL WOOD MD Date/Time of Note DATE: 12/25/18 TIME: 14:24 Exam/Review of Systems Vital Signs Vitals Vital Signs Date Temp Pulse Resp B/P (MAP) Pulse Ox O2 O2 Flow FiO2 Time Delivery Rate 12/25/18 98.2 93 18 108/55 98 Room Air 13:48 (72) Intake and Output 12/24/18 12/24/18 12/25/18 1515:00 23:00 07:00 IntakeIntake Total 890 ml 1330 ml 50 ml OutputOutput Total 0 ml BalanceBalance 890 ml 1330 ml 50 ml Exam Exam Review of Systems: CONSTITUTIONAL: No fevers, chills. PULMONARY: No sob CARDIOVASCULAR: No chest pain/palpitations GASTROINTESTINAL: No nausea/vomiting. GENITOURINARY: No hematuria/dysuria. MUSCULOSKELETAL: No myagias/arthalgias. PSYCHIATRIC: The patient denies depression. NEUROLOGIC: No weakness Constitutional: other (sleeping) Psych: no complaints Head: normocephalic ENMT: mucosa pink and moist Neck: supple, jvd (9 cm water) Respiratory: diminished breath sounds (at bases/B) Cardiovascular: regular rate and rhythm Gastrointestinal: soft, non-tender Musculoskeletal: muscle tone (normal) Extremities: edema (trace LLE with foot covered by dressing) Neurological: other (No focal deficits) Labs Result Diagram: 12/23/1814 12/23/1814 Results 24hrs Laboratory Tests Test 12/24/18 17:10 12/24/18 21:38 12/25/18 08:10 12/25/18 11:59 Bedside Glucose 242 H 276 H 171 147 Medications Medications Current Medications Ergocalciferol (Drisdol) 50,000 unit Sa PO Last administered on 12/21/18at 10:49; Admin Dose 50,000 UNIT; Start 11/09/18 at 09:00 Clonidine (Catapres) 0.1 mg Q6H PRN PO SBP>160 Last administered on 11/19/18at 03:04; Admin Dose 0.1 MG; Start 11/04/18 at 09:00 IV Flush (NS 3 ml) 3 ml PER PROTOCOL IV ; Start 11/04/18 at 09:00 Ondansetron HCl (Zofran Inj) 4 mg Q6H PRN IV NAUSEA/VOMITING Last administered on 12/15/18at 16:52; Admin Dose 4 MG; Start 11/04/18 at 09:00 Acetaminophen (Tylenol Tab) 650 mg Q6H PRN PO .PAIN 1-3 OR TEMP Last administered on 12/14/18at 00:29; Admin Dose 650 MG; Start 11/04/18 at 09:00 Miscellaneous Information 1 ea NOTE XX ; Start 11/04/18 at 09:00 Glucose (Glutose) 15 gm Q15M PRN PO DECREASED GLUCOSE Last administered on 12/17/18at 06:56; Admin Dose 15 GM; Start 11/04/18 at 09:00 Glucose (Glutose) 22.5 gm Q15M PRN PO DECREASED GLUCOSE; Start 11/04/18 at 09:00 Dextrose (D50w Syringe) 25 ml Q15M PRN IV DECREASED GLUCOSE; Start 11/04/18 at 09:00 Dextrose (D50w Syringe) 50 ml Q15M PRN IV DECREASED GLUCOSE; Start 11/04/18 at 09:00 Glucagon (Glucagen) 1 mg Q15M PRN IM DECREASED GLUCOSE; Start 11/04/18 at 09:00 Glucose (Glutose) 15 gm Q15M PRN BUCCAL DECREASED GLUCOSE; Start 11/04/18 at 09:00 Miscellaneous Information Patients own medicat... BID@10,16 XX Last administered on 12/18/18 10:32; Admin Dose 1 EA; Start 11/04/18 at 16:00 Hydralazine HCl (Apresoline) 10 mg Q4H PRN IV sbp >160 Last administered on 14:18; Admin Dose 10 MG; Start 11/08/18 at 09:00 Atropine Sulfate (Atropine) 0.5 mg PRN PRN IV SYMPTOMATIC BRADYCARDIA; Start 11/11/18 at 23:00 Heparin Sodium (Porcine) (Heparin (5000 Units/1ml)) 5,000 unit BID SC Last administered on 12/25/18 08:21; Admin Dose 5,000 UNIT; Start 11/14/18 at 21:00 Bisacodyl (Dulcolax Supp) 10 mg DAILY PRN [place] CONSTIPATION Last administered on 11/14/18at 16:43; Admin Dose 10 MG; Start 11/14/18 at 16:30 IV Flush (NS 10 ml) 10 ml PRN PRN IV FLUSH LINE; Start 11/15/18 at 15:30 Gabapentin (Neurontin Liquid) 300 mg BID PO Last administered on 12/25/18 08: 12; Admin Dose 300 MG; Start 11/18/18 at 21:00 Ascorbic Acid (Vitamin C) 500 mg DAILY PO Last administered on 12/25/18 08:11; Admin Dose 500 MG; Start 11/20/18 at 09:00 Zinc Sulfate (Zinc Sulfate) 220 mg DAILY PO Last administered on 12/25/18 08:12; Admin Dose 220 MG; Start 11/20/18 at 09:00 Atorvastatin Calcium (Lipitor) 80 mg QHS PO Last administered on 12/24/18 21:41; Admin Dose 80 MG; Start 11/19/18 at 21:00 Lorazepam (Ativan) 0.5 mg Q6H PRN IV anxiety/agitation Last administered on 11/22/18 19:32; Admin Dose 0.5 MG; Start 11/22/18 at 11:00 Clopidogrel Bisulfate (plaVIX) 75 mg DAILY PO Last administered on 12/25/18 08:12; Admin Dose 75 MG; Start 11/23/18 at 09:00 Haloperidol (Haldol) 5 mg Q12H PRN IM agitation Last administered on 11/22/18 19:44; Admin Dose 5 MG; Start 11/22/18 at 14:30 Quetiapine Fumarate (Seroquel) 25 mg QHS PO Last administered on 12/24/18 21:41; Admin Dose 25 MG; Start 11/26/18 at 21:00 Polyethylene Glycol (Miralax) 17 gm DAILY PRN PO constipation Last administered on 12/06/18 06:10; Admin Dose 17 GM; Start 11/29/18 at 08:02 Aspirin (Aspirin) 81 mg DAILY PO Last administered on 12/25/18 08:11; Admin Dose 81 MG; Start 11/29/18 at 09:00 Famotidine (Pepcid) 20 mg DAILY PO Last administered on 12/25/18 08:11; Admin Dose 20 MG; Start 11/29/18 at 09:00 Senna/Docusate Sodium (Senokot-S) 1 tab BID PRN PO constipation Last administered on 12/09/18 08:07; Admin Dose 1 TAB; Start 11/29/18 at 08:30 Lisinopril (Zestril) 2.5 mg DAILY PO Last administered on 12/25/18 08:15; Admin Dose 2.5 MG; Start 12/03/18 at 09:00 Furosemide (Lasix) 20 mg DAILY@0600 PO Last administered on 12/25/18 06:28; Admin Dose 20 MG; Start 12/04/18 at 10:30 Insulin Aspart (Novolog Insulin Pen) NOVOLOG *MODERATE* ALGORITHM WITH MEALS BEDTIME SC Last administered on 12/25/18 12:01; Admin Dose 2 UNIT; Start 12/08/18 at 21:00 Simethicone (Mylicon) 80 mg Q6H PRN PO DISTENSION/GAS/BLOATING; Start 12/13/18 at 17:30 Tramadol HCl (Ultram) 50 mg Q6H PRN PO MODERATE PAIN LEVEL 4-6 Last administered on 12/24/18 23:25; Admin Dose 50 MG; Start 12/14/18 at 17:00 Meropenem/Sodium Chloride 50 ml @ 100 mls/hr Q8 IVPB Last administered on 12/25/18 13:39; Admin Dose 100 MLS/HR; Start 12/15/18 at 12:00 Lactobacillus Acidophilus/ Rhamnosus (Culturelle) 1 cap BID PO Last administered on 12/25/18 08:12; Admin Dose 1 CAP; Start 12/15/18 at 23:30 Loperamide HCl (Imodium Cap) 2 mg Q6H PRN PO DIARRHEA; Start 12/17/18 at 15:00 Amoxicillin (Amoxicillin) 500 mg Q8 PO Last administered on 12/25/18 13:39; Admin Dose 500 MG; Start 12/20/18 at 14:00 Insulin Glargine (Lantus) 40 units DAILY@0800 SC Last administered on 12/25/18 08:13; Admin Dose 40 UNITS; Start 12/22/18 at 08:00 Insulin Aspart (Novolog Insulin Pen) 4 unit WITH MEALS SC Last administered on 12/25/18 12:01; Admin Dose 4 UNIT; Start 12/21/18 at 17:35 KLEVER HUNT Dec 25, 2018 14:27
--- NOTE | 2018-12-25 14:51 | PN ---
Date/Time of Note Date/Time of Note DATE: 12/25/18 TIME: 14:48 Assessment/Plan VTE Prophylaxis Risk score (from Ns)>0 risk: 4 SCD applied (from Ns): No SCD contraindicated: low risk/ambulating Pharmacological prophylaxis: NA/contraindicated Pharm contraindication: low risk/ambulating Lines/Catheters IV C[facility]ter Type [facility]from [facility] Saline Lock Urinary Cath still in place: No Assessment/Plan Assessment/Plan 1. Drainage from surgical site and groin area- stable - wound vac changed this am and will continue BID changes every week - s/p surgical exploration the ground surgical site, graft did not need to be replaced, lymph drainage cleaned up by vascular surgeon - CM on board and assisting with SNF placement per sons request 2. Groin wound infection, enterococcus and Coag neg staph - wound vac in place per Vasc recommendations - ID on board for antibiotic recommendations and will continue Meropenem for 1 more day 3. 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 - Continue local wound care - Podiatry on board and appreciate consultation. no further procedures scheduled at this time. will need to follow up as outpatient 4. Left frontal CVA- stable - no neurology deficits appreciated - Neurology on board and appreciate recommendations - continue on aspirin and Plavix and statin 5. left-sided internal carotid artery stenosis - 25% per CT angiogram, continue aspirin, statin, Plavix per vascular surgeon 6. Acute hypoxic respiratory failure-resolved - doing well on room air - Pulmonology consultation appreciated 7. Cardiac arrest s/p ROSC - Cardiology on board and appreciate recommendations - ECHO with preserved EF 8. Severe peripheral vascular disease - s/p left femoral endarterectomy, iliofemoral bypass and femoral to posterior tibial bypass done on November 08, 2018 - Vascular surgery consultation appreciated. Continue aspirin and Plavix 9. Diabetes Mellitus - A1c noted - metformin dc'd due to intolerance 10. Acute kidney injury- resolved - nephrology consultation appreciated 11. Essential HTN - Continue home medications at this time as tolerated 12. Peripheral neuropathy - cont. gabapentin 13. HLD - On statin 14. Chronic anemia - Stable H&H. Monitor - no need for transfusions at this time 15. Urinary retention, resolved - Urology on board and appreciate recommendations. - voiding without any issues 16. Disposition - CM on board for SNF placement while requiring wound vac care Result Diagram: 12/23/18 0714 12/23/18 0714 Results 24hrs Laboratory Tests Test 12/24/18 17:10 12/24/18 21:38 12/25/18 08:10 12/25/18 11:59 Bedside Glucose 242 H 276 H 171 147 Subjective 24 Hr Interval Summary Free Text/Dictation Patient doing well and resting comfortably. No acute overnight events. Exam/Review of Systems Exam Vitals Vital Signs Date Temp Pulse Resp B/P (MAP) Pulse Ox O2 O2 Flow FiO2 Time Delivery Rate 12/25/18 98.2 93 18 108/55 98 Room Air 13:48 (72) Intake and Output 12/24/18 12/24/18 12/25/18 1515:00 23:00 07:00 IntakeIntake Total 890 ml 1330 ml 50 ml OutputOutput Total 0 ml BalanceBalance 890 ml 1330 ml 50 ml Exam General: Patient is laying in bed responding to questions appropriately Mentation: Patient is alert and oriented Neck: Supple, nontender, midline Respiratory: Diminished. no wheezing or rhonchi Cardiovascular: regular rate and rhythm, no obvious murmurs Gastrointestinal: soft, non-tender to palpation, bowel sounds heard. Skin: No new skin lesions, surgical site bandaged, CDI Results Results 24hrs Laboratory Tests Test 12/24/18 17:10 12/24/18 21:38 12/25/18 08:10 12/25/18 11:59 Bedside Glucose 242 H 276 H 171 147 Medications Medication Current Medications Ergocalciferol (Drisdol) 50,000 unit Sa PO Last administered on 12/21/18at 10:49; Admin Dose 50,000 UNIT; Start 11/09/18 at 09:00 Clonidine (Catapres) 0.1 mg Q6H PRN PO SBP>160 Last administered on 11/19/18at 03:04; Admin Dose 0.1 MG; Start 11/04/18 at 09:00 IV Flush (NS 3 ml) 3 ml PER PROTOCOL IV ; Start 11/04/18 at 09:00 Ondansetron HCl (Zofran Inj) 4 mg Q6H PRN IV NAUSEA/VOMITING Last administered on 12/15/18at 16:52; Admin Dose 4 MG; Start 11/04/18 at 09:00 Acetaminophen (Tylenol Tab) 650 mg Q6H PRN PO .PAIN 1-3 OR TEMP Last administered on 12/14/18at 00:29; Admin Dose 650 MG; Start 11/04/18 at 09:00 Miscellaneous Information 1 ea NOTE XX ; Start 11/04/18 at 09:00 Glucose (Glutose) 15 gm Q15M PRN PO DECREASED GLUCOSE Last administered on 12/17/18at 06:56; Admin Dose 15 GM; Start 11/04/18 at 09:00 Glucose (Glutose) 22.5 gm Q15M PRN PO DECREASED GLUCOSE; Start 11/04/18 at 09: 00 Dextrose (D50w Syringe) 25 ml Q15M PRN IV DECREASED GLUCOSE; Start 11/04/18 at 09:00 Dextrose (D50w Syringe) 50 ml Q15M PRN IV DECREASED GLUCOSE; Start 11/04/18 at 09:00 Glucagon (Glucagen) 1 mg Q15M PRN IM DECREASED GLUCOSE; Start 11/04/18 at 09:00 Glucose (Glutose) 15 gm Q15M PRN BUCCAL DECREASED GLUCOSE; Start 11/04/18 at 09:00 Miscellaneous Information Patients own medicat... BID@10,16 XX Last administered on 12/18/18at 10:32; Admin Dose 1 EA; Start 11/04/18 at 16:00 Hydralazine HCl (Apresoline) 10 mg Q4H PRN IV sbp >160 Last administered on 12/24/18at 14:18; Admin Dose 10 MG; Start 11/08/18 at 09:00 Atropine Sulfate (Atropine) 0.5 mg PRN PRN IV SYMPTOMATIC BRADYCARDIA; Start 11/11/18 at 23:00 Heparin Sodium (Porcine) (Heparin (5000 Units/1ml)) 5,000 unit BID SC Last administered on 12/25/18at 08:21; Admin Dose 5,000 UNIT; Start 11/14/18 at 21:00 Bisacodyl (Dulcolax Supp) 10 mg DAILY PRN [place] CONSTIPATION Last administered on 11/14/18at 16:43; Admin Dose 10 MG; Start 11/14/18 at 16:30 IV Flush (NS 10 ml) 10 ml PRN PRN IV FLUSH LINE; Start 11/15/18 at 15:30 Gabapentin (Neurontin Liquid) 300 mg BID PO Last administered on 12/25/18 08:12; Admin Dose 300 MG; Start 11/18/18 at 21:00 Ascorbic Acid (Vitamin C) 500 mg DAILY PO Last administered on 12/25/18 08:11; Admin Dose 500 MG; Start 11/20/18 at 09:00 Zinc Sulfate (Zinc Sulfate) 220 mg DAILY PO Last administered on 12/25/18 08:12; Admin Dose 220 MG; Start 11/20/18 at 09:00 Atorvastatin Calcium (Lipitor) 80 mg QHS PO Last administered on 12/24/18 21:41; Admin Dose 80 MG; Start 11/19/18 at 21:00 Lorazepam (Ativan) 0.5 mg Q6H PRN IV anxiety/agitation Last administered on 11/22/18 19:32; Admin Dose 0.5 MG; Start 11/22/18 at 11:00 Clopidogrel Bisulfate (plaVIX) 75 mg DAILY PO Last administered on 12/25/18 08:12; Admin Dose 75 MG; Start 11/23/18 at 09:00 Haloperidol (Haldol) 5 mg Q12H PRN IM agitation Last administered on 11/22/18 19:44; Admin Dose 5 MG; Start 11/22/18 at 14:30 Quetiapine Fumarate (Seroquel) 25 mg QHS PO Last administered on 12/24/18 21:41; Admin Dose 25 MG; Start 11/26/18 at 21:00 Polyethylene Glycol (Miralax) 17 gm DAILY PRN PO constipation Last administered on 12/06/18 06:10; Admin Dose 17 GM; Start 11/29/18 at 08:02 Aspirin (Aspirin) 81 mg DAILY PO Last administered on 12/25/18 08:11; Admin Dose 81 MG; Start 11/29/18 at 09:00 Famotidine (Pepcid) 20 mg DAILY PO Last administered on 12/25/18 08:11; Admin Dose 20 MG; Start 11/29/18 at 09:00 Senna/Docusate Sodium (Senokot-S) 1 tab BID PRN PO constipation Last administered on 12/09/18 08:07; Admin Dose 1 TAB; Start 11/29/18 at 08:30 Lisinopril (Zestril) 2.5 mg DAILY PO Last administered on 12/25/18 08:15; Admin Dose 2.5 MG; Start 12/03/18 at 09:00 Furosemide (Lasix) 20 mg DAILY@0600 PO Last administered on 12/25/18 06:28; Admin Dose 20 MG; Start 12/04/18 at 10:30 Insulin Aspart (Novolog Insulin Pen) NOVOLOG *MODERATE* ALGORITHM WITH MEALS BEDTIME SC Last administered on 12/25/18 12:01; Admin Dose 2 UNIT; Start 12/08/18 at 21:00 Simethicone (Mylicon) 80 mg Q6H PRN PO DISTENSION/GAS/BLOATING; Start 12/13/18 at 17:30 Tramadol HCl (Ultram) 50 mg Q6H PRN PO MODERATE PAIN LEVEL 4-6 Last administered on 12/24/18 23:25; Admin Dose 50 MG; Start 12/14/18 at 17:00 Meropenem/Sodium Chloride 50 ml @ 100 mls/hr Q8 IVPB Last administered on 12/25/18 13:39; Admin Dose 100 MLS/HR; Start 12/15/18 at 12:00 Lactobacillus Acidophilus/ Rhamnosus (Culturelle) 1 cap BID PO Last administered on 12/25/18 08:12; Admin Dose 1 CAP; Start 12/15/18 at 23:30 Loperamide HCl (Imodium Cap) 2 mg Q6H PRN PO DIARRHEA; Start 12/17/18 at 15:00 Amoxicillin (Amoxicillin) 500 mg Q8 PO Last administered on 12/25/18 13:39; Admin Dose 500 MG; Start 12/20/18 at 14:00 Insulin Glargine (Lantus) 40 units DAILY@0800 SC Last administered on 12/25/18 08:13; Admin Dose 40 UNITS; Start 12/22/18 at 08:00 Insulin Aspart (Novolog Insulin Pen) 4 unit WITH MEALS SC Last administered on 12/25/18 12:01; Admin Dose 4 UNIT; Start 12/21/18 at 17:35 KARL WOOD MD Dec 25, 2018 14:51
[2018-12-25 19:37] VITALS: BP 149/73; PULSE 98; RESP 20
[2018-12-25] MEDS: ATORVASTATIN 80 MG TAB PO SCH (20:55)
[2018-12-25] MEDS: QUETIAPINE 25 MG TAB PO SCH (20:55)
[2018-12-26] MEDS: traMADol 50 MG TAB PO PRN ×3 (00:42→21:04)
[2018-12-26 01:59] VITALS: BP 121/62; PULSE 99; RESP 18
[2018-12-26] MEDS: AMOXICILLIN 500 MG CAP PO SCH (05:40)
[2018-12-26] MEDS: MEROPENEM 1 GM/50ML(PMX) 50 ML IVPB SCH (05:40)
[2018-12-26] MEDS: FUROSEMIDE 20 MG TAB PO SCH (05:40)
[2018-12-26 07:27] VITALS: BP 99/62; PULSE 98; RESP 19
[2018-12-26] MEDS: ASCORBIC ACID 500 MG TAB PO SCH (08:34)
[2018-12-26] MEDS: LACTOBACILLUS RHAMNOSUS CAP PO SCH ×2 (08:34→20:57)
[2018-12-26] MEDS: CLOPIDOGREL 75 MG TAB PO SCH (08:35)
[2018-12-26] MEDS: FAMOTIDINE 20 MG TAB PO SCH (08:35)
[2018-12-26] MEDS: ZINC SULFATE 220 MG CAP PO SCH (08:35)
[2018-12-26] MEDS: ASPIRIN 81 MG TAB PO SCH (08:35)
[2018-12-26] MEDS: LISINOPRIL 5 MG TAB PO SCH (08:36)
[2018-12-26] MEDS: INSULIN ASPART [NOVOLOG] 3 ML PEN SC SCH ×6 (08:38→20:52)
[2018-12-26] MEDS: HEPARIN 5,000 UNIT/1 ML VIAL SC SCH ×2 (08:38→21:00)
--- NOTE | 2018-12-26 11:27 | PN ---
Date/Time of Note Date/Time of Note DATE: 12/26/18 TIME: 11:23 Assessment/Plan VTE Prophylaxis Risk score (from Ns)>0 risk: 3 SCD applied (from Ns): No SCD contraindicated: low risk/ambulating Pharmacological prophylaxis: NA/contraindicated Pharm contraindication: low risk/ambulating Lines/Catheters IV Catheter Type [facility]from [facility]): [facility] Urinary Cath still in place: No Assessment/Plan Assessment/Plan 1. Drainage from surgical site and groin area- stable - continue wound vac with dressing changes twice a week - s/p surgical exploration the ground surgical site, graft did not need to be replaced, lymph drainage cleaned up by vascular surgeon - CM on board and assisting with SNF placement per sons request - culture results noted and ID on board for antibiotic management. Last day of Meropenem 2. 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 no further procedures xochilt eduled at this time. will need to follow up as outpatient 3. Left frontal CVA- stable - no neurology deficits appreciated - Neurology consultation appreciated - continue on aspirin and Plavix and statin 4. left-sided internal carotid artery stenosis - 25% per CT angiogram, continue aspirin, statin, Plavix per vascular surgeon 5. h/o Cardiac arrest s/p ROSC - Cardiology on board and appreciate recommendations - ECHO with preserved EF 6. Severe peripheral vascular disease - s/p left femoral endarterectomy, iliofemoral bypass and femoral to posterior tibial bypass done on November 08, 2018 - Vascular surgery consultation appreciated. Continue aspirin and Plavix 7. Diabetes Mellitus - A1c noted - metformin dc'd due to intolerance 8. Acute kidney injury- resolved - nephrology consultation appreciated 9. Essential HTN - Continue home medications at this time as tolerated 10. Peripheral neuropathy - cont. gabapentin 11. HLD - On statin 12. Chronic anemia - Stable H&H. Monitor - no need for transfusions at this time 13. Disposition - CM on board for SNF placement while requiring wound vac care Result Diagram: 12/23/18 0714 12/23/18 0714 Results 24hrs Laboratory Tests Test 12/25/18 11:59 12/25/18 17:37 12/25/18 20:53 12/26/18 03:04 Bedside Glucose 147 262 H 246 H 290 H Test 12/26/18 08:12 Bedside Glucose 282 H Subjective 24 Hr Interval Summary Free Text/Dictation Patient doing well and no acute overnight events. No new complaints Exam/Review of Systems Exam Vitals Vital Signs Date Temp Pulse Resp B/P (MAP) Pulse Ox O2 O2 Flow FiO2 Time Delivery Rate 12/26/18 98.3 98 19 99/62 (74) 96 Room Air 07:27 Intake and Output 12/25/18 12/25/18 12/26/18 1515:00 23:00 07:00 IntakeIntake Total 1090 ml 470 ml 50 ml OutputOutput Total 200 ml 5 ml BalanceBalance 890 ml 465 ml 50 ml Exam General: Patient is laying in bed. no acute distress Mentation: Patient is alert and oriented Neck: Supple, nontender, midline Respiratory: Diminished. no wheezing or rhonchi Cardiovascular: regular rate and rhythm, no obvious murmurs Gastrointestinal: soft, non-tender to palpation, bowel sounds heard. Skin: No new skin lesions, surgical site bandaged, CDI Results Results 24hrs Laboratory Tests Test 12/25/18 11:59 12/25/18 17:37 12/25/18 20:53 12/26/18 03:04 Bedside Glucose 147 262 H 246 H 290 H Test 12/26/18 08:12 Bedside Glucose 282 H Medications Medication Current Medications Ergocalciferol (Drisdol) 50,000 unit Sa PO Last administered on 12/21/18at 10:49; Admin Dose 50,000 UNIT; Start 11/09/18 at 09:00 Clonidine (Catapres) 0.1 mg Q6H PRN PO SBP>160 Last administered on 11/19/18at 03:04; Admin Dose 0.1 MG; Start 11/04/18 at 09:00 IV Flush (NS 3 ml) 3 ml PER PROTOCOL IV ; Start 11/04/18 at 09:00 Ondansetron HCl (Zofran Inj) 4 mg Q6H PRN IV NAUSEA/VOMITING Last administered on 12/15/18at 16:52; Admin Dose 4 MG; Start 11/04/18 at 09:00 Acetaminophen (Tylenol Tab) 650 mg Q6H PRN PO .PAIN 1-3 OR TEMP Last administered on 12/14/18at 00:29; Admin Dose 650 MG; Start 11/04/18 at 09:00 Miscellaneous Information 1 ea NOTE XX ; Start 11/04/18 at 09:00 Glucose (Glutose) 15 gm Q15M PRN PO DECREASED GLUCOSE Last administered on 12/17/18 06:56; Admin Dose 15 GM; Start 11/04/18 at 09:00 Glucose (Glutose) 22.5 gm Q15M PRN PO DECREASED GLUCOSE; Start 11/04/18 at 09:00 Dextrose (D50w Syringe) 25 ml Q15M PRN IV DECREASED GLUCOSE; Start 11/04/18 at 09:00 Dextrose (D50w Syringe) 50 ml Q15M PRN IV DECREASED GLUCOSE; Start 11/04/18 at 09:00 Glucagon (Glucagen) 1 mg Q15M PRN IM DECREASED GLUCOSE; Start 11/04/18 at 09:00 Glucose (Glutose) 15 gm Q15M PRN BUCCAL DECREASED GLUCOSE; Start 11/04/18 at 09:00 Miscellaneous Information Patients own medicat... BID@10,16 XX Last administered on 12/18/18at 10:32; Admin Dose 1 EA; Start 11/04/18 at 16:00 Hydralazine HCl (Apresoline) 10 mg Q4H PRN IV sbp >160 Last administered on 12/24/18at 14:18; Admin Dose 10 MG; Start 11/08/18 at 09:00 Atropine Sulfate (Atropine) 0.5 mg PRN PRN IV SYMPTOMATIC BRADYCARDIA; Start 11/11/18 at 23:00 Heparin Sodium (Porcine) (Heparin (5000 Units/1ml)) 5,000 unit BID SC Last administered on 12/26/18at 08:38; Admin Dose 5,000 UNIT; Start 11/14/18 at 21:00 Bisacodyl (Dulcolax Supp) 10 mg DAILY PRN [place] CONSTIPATION Last administered on 11/14/18at 16:43; Admin Dose 10 MG; Start 11/14/18 at 16:30 IV Flush (NS 10 ml) 10 ml PRN PRN IV FLUSH LINE; Start 11/15/18 at 15:30 Gabapentin (Neurontin Liquid) 300 mg BID PO Last administered on 12/25/18at 20:59; Admin Dose 300 MG; Start 11/18/18 at 21:00 Ascorbic Acid (Vitamin C) 500 mg DAILY PO Last administered on 12/26/18 08:34; Admin Dose 500 MG; Start 11/20/18 at 09:00 Zinc Sulfate (Zinc Sulfate) 220 mg DAILY PO Last administered on 12/26/18 08:35; Admin Dose 220 MG; Start 11/20/18 at 09:00 Atorvastatin Calcium (Lipitor) 80 mg QHS PO Last administered on 12/25/18 20:55; Admin Dose 80 MG; Start 11/19/18 at 21:00 Lorazepam (Ativan) 0.5 mg Q6H PRN IV anxiety/agitation Last administered on 11/22/18 19:32; Admin Dose 0.5 MG; Start 11/22/18 at 11:00 Clopidogrel Bisulfate (plaVIX) 75 mg DAILY PO Last administered on 12/26/18 08:35; Admin Dose 75 MG; Start 11/23/18 at 09:00 Haloperidol (Haldol) 5 mg Q12H PRN IM agitation Last administered on 11/22/18 19:44; Admin Dose 5 MG; Start 11/22/18 at 14:30 Quetiapine Fumarate (Seroquel) 25 mg QHS PO Last administered on 12/25/18 20:55 ; Admin Dose 25 MG; Start 11/26/18 at 21:00 Polyethylene Glycol (Miralax) 17 gm DAILY PRN PO constipation Last administered on 12/06/18 06:10; Admin Dose 17 GM; Start 11/29/18 at 08:02 Aspirin (Aspirin) 81 mg DAILY PO Last administered on 12/26/18 08:35; Admin Dose 81 MG; Start 11/29/18 at 09:00 Famotidine (Pepcid) 20 mg DAILY PO Last administered on 12/26/18 08:35; Admin Dose 20 MG; Start 11/29/18 at 09:00 Senna/Docusate Sodium (Senokot-S) 1 tab BID PRN PO constipation Last administered on 12/09/18 08:07; Admin Dose 1 TAB; Start 11/29/18 at 08:30 Lisinopril (Zestril) 2.5 mg DAILY PO Last administered on 12/25/18 08:15; Admin Dose 2.5 MG; Start 12/03/18 at 09:00 Furosemide (Lasix) 20 mg DAILY@0600 PO Last administered on 12/26/18 05:40; Admin Dose 20 MG; Start 12/04/18 at 10:30 Insulin Aspart (Novolog Insulin Pen) NOVOLOG *MODERATE* ALGORITHM WITH MEALS BEDTIME SC Last administered on 12/26/18 08:38; Admin Dose 8 UNIT; Start 12/08/18 at 21:00 Simethicone (Mylicon) 80 mg Q6H PRN PO DISTENSION/GAS/BLOATING; Start 12/13/18 at 17:30 Tramadol HCl (Ultram) 50 mg Q6H PRN PO MODERATE PAIN LEVEL 4-6 Last administered on 12/26/18 06:47; Admin Dose 50 MG; Start 12/14/18 at 17:00 Meropenem/Sodium Chloride 50 ml @ 100 mls/hr Q8 IVPB Last administered on 12/26/18 05:40; Admin Dose 100 MLS/HR; Start 12/15/18 at 12:00 Lactobacillus Acidophilus/ Rhamnosus (Culturelle) 1 cap BID PO Last administered on 12/26/18 08:34; Admin Dose 1 CAP; Start 12/15/18 at 23:30 Loperamide HCl (Imodium Cap) 2 mg Q6H PRN PO DIARRHEA; Start 12/17/18 at 15:00 Amoxicillin (Amoxicillin) 500 mg Q8 PO Last administered on 12/26/18 05:40; Admin Dose 500 MG; Start 12/20/18 at 14:00 Insulin Aspart (Novolog Insulin Pen) 6 unit WITH MEALS SC ; Start 12/26/18 at 11:30 Insulin Glargine (Lantus) 45 units DAILY@0800 SC ; Start 12/26/18 at 10:00 KARL WOOD MD Dec 26, 2018 11:27
[2018-12-26] MEDS: GABAPENTIN (50 MG/ML PO SYG) PO SCH ×2 (12:15→20:57)
[2018-12-26] MEDS: INSULIN GLARGINE [LANTus] (100 UNITS/ML) SYG SC SCH (12:16)
--- NOTE | 2018-12-26 14:29 | CONS ---
Assessment/Plan Assessment/Plan Hospital Course (Demo Recall) Awake, denies pain, no fevers Micro: Repeat left groin wound culture growing Klebsiella ESBL and again enterococcus species Abx: none Physical examination: Well-developed elderly man who is in no distress head atraumatic normocephalic neck is supple chest rise symmetrical breath s ounds CTA heart S1-S2, abdomen soft bowel sounds present extremities with left foot dressing intact Assessment: 1. Bacteremia, cw contaminant 2. UTI per ua==> neg cx 3. Status post cardiac arrest/non-ST elevation OK 4. Status post acute respiratory failure, possibly aspirated 5. Peripheral arterial disease status post left femoral to posterior tibial bypass 11/08/18 6. Diabetes 7. History of left foot second toe amputation 8. Left groin wound, status post exploration 12/19/18 with wound VAC placement==> no graft involvement Plan: Remains stable, dc abx today Consultation Date/Type/Reason Admit Date/Time Nov 04, 2018 at 07:34 Initial Consult Date Type of Consult id Requesting Provider: KARL WOOD MD Date/Time of Note DATE: 12/26/18 TIME: 14:28 Exam/Review of Systems Exam Vitals Vital Signs Date Temp Pulse Resp B/P (MAP) Pulse Ox O2 O2 Flow FiO2 Time Delivery Rate 12/26/18 98.3 98 19 99/62 (74) 96 Room Air 07:27 Intake and Output 12/25/18 12/25/18 12/26/18 1515:00 23:00 07:00 IntakeIntake Total 1090 ml 470 ml 50 ml OutputOutput Total 200 ml 5 ml BalanceBalance 890 ml 465 ml 50 ml Results Result Diagram: 12/23/18 0714 12/23/18 0714 Results 24hrs Laboratory Tests Test 12/25/18 17:37 12/25/18 20:53 12/26/18 03:04 12/26/18 08:12 Bedside Glucose 262 H 246 H 290 H 282 H Test 12/26/18 12:14 Bedside Glucose 168 Medications Medication Current Medications Ergocalciferol (Drisdol) 50,000 unit Sa PO Last administered on 12/21/18at 10:49; Admin Dose 50,000 UNIT; Start 11/09/18 at 09:00 Clonidine (Catapres) 0.1 mg Q6H PRN PO SBP>160 Last administered on 11/19/18at 03:04; Admin Dose 0.1 MG; Start 11/04/18 at 09:00 IV Flush (NS 3 ml) 3 ml PER PROTOCOL IV ; Start 11/04/18 at 09:00 Ondansetron HCl (Zofran Inj) 4 mg Q6H PRN IV NAUSEA/VOMITING Last administered on 12/15/18at 16:52; Admin Dose 4 MG; Start 11/04/18 at 09:00 Acetaminophen (Tylenol Tab) 650 mg Q6H PRN PO .PAIN 1-3 OR TEMP Last administered on 12/14/18at 00:29; Admin Dose 650 MG; Start 11/04/18 at 09:00 Miscellaneous Information 1 ea NOTE XX ; Start 11/04/18 at 09:00 Glucose (Glutose) 15 gm Q15M PRN PO DECREASED GLUCOSE Last administered on 12/17/18at 06:56; Admin Dose 15 GM; Start 11/04/18 at 09:00 Glucose (Glutose) 22.5 gm Q15M PRN PO DECREASED GLUCOSE; Start 11/04/18 at 09:00 Dextrose (D50w Syringe) 25 ml Q15M PRN IV DECREASED GLUCOSE; Start 11/04/18 at 09:00 Dextrose (D50w Syringe) 50 ml Q15M PRN IV DECREASED GLUCOSE; Start 11/04/18 at 09:00 Glucagon (Glucagen) 1 mg Q15M PRN IM DECREASED GLUCOSE; Start 11/04/18 at 09:00 Glucose (Glutose) 15 gm Q15M PRN BUCCAL DECREASED GLUCOSE; Start 11/04/18 at 09:00 Miscellaneous Information Patients own medicat... BID@ XX Last administered on 12/18/18at 10:32; Admin Dose 1 EA; Start 11/04/18 at 16:00 Hydralazine HCl (Apresoline) 10 mg Q4H PRN IV sbp >160 Last administered on 12/24/18at 14:18; Admin Dose 10 MG; Start 11/08/18 at 09:00 Atropine Sulfate (Atropine) 0.5 mg PRN PRN IV SYMPTOMATIC BRADYCARDIA; Start 11/11/18 at 23:00 Heparin Sodium (Porcine) (Heparin (5000 Units/1ml)) 5,000 unit BID SC Last administered on 12/26/18 08:38; Admin Dose 5,000 UNIT; Start 11/14/18 at 21:00 Bisacodyl (Dulcolax Supp) 10 mg DAILY PRN [place] CONSTIPATION Last administered on 11/14/18 16:43; Admin Dose 10 MG; Start 11/14/18 at 16:30 IV Flush (NS 10 ml) 10 ml PRN PRN IV FLUSH LINE; Start 11/15/18 at 15:30 Gabapentin (Neurontin Liquid) 300 mg BID PO Last administered on 12/26/18 12:15; Admin Dose 300 MG; Start 11/18/18 at 21:00 Ascorbic Acid (Vitamin C) 500 mg DAILY PO Last administered on 12/26/18 08:34; Admin Dose 500 MG; Start 11/20/18 at 09:00 Zinc Sulfate (Zinc Sulfate) 220 mg DAILY PO Last administered on 12/26/18 08:35; Admin Dose 220 MG; Start 11/20/18 at 09:00 Atorvastatin Calcium (Lipitor) 80 mg QHS PO Last administered on 12/25/18 20:55; Admin Dose 80 MG; Start 11/19/18 at 21:00 Lorazepam (Ativan) 0.5 mg Q6H PRN IV anxiety/agitation Last administered on 11/22/18 19:32; Admin Dose 0.5 MG; Start 11/22/18 at 11:00 Clopidogrel Bisulfate (plaVIX) 75 mg DAILY PO Last administered on 12/26/18 08:35; Admin Dose 75 MG; Start 11/23/18 at 09:00 Haloperidol (Haldol) 5 mg Q12H PRN IM agitation Last administered on 11/22/18 19:44; Admin Dose 5 MG; Start 11/22/18 at 14:30 Quetiapine Fumarate (Seroquel) 25 mg QHS PO Last administered on 12/25/18 20:55; Admin Dose 25 MG; Start 11/26/18 at 21:00 Polyethylene Glycol (Miralax) 17 gm DAILY PRN PO constipation Last administered on 12/06/18 06:10; Admin Dose 17 GM; Start 11/29/18 at 08:02 Aspirin (Aspirin) 81 mg DAILY PO Last administered on 12/26/18 08:35; Admin Dose 81 MG; Start 11/29/18 at 09:00 Famotidine (Pepcid) 20 mg DAILY PO Last administered on 12/26/18 08:35; Admin Dose 20 MG; Start 11/29/18 at 09:00 Senna/Docusate Sodium (Senokot-S) 1 tab BID PRN PO constipation Last administered on 12/09/18 08:07; Admin Dose 1 TAB; Start 11/29/18 at 08:30 Lisinopril (Zestril) 2.5 mg DAILY PO Last administered on 12/25/18 08:15; Admin Dose 2.5 MG; Start 12/03/18 at 09:00 Furosemide (Lasix) 20 mg DAILY@0600 PO Last administered on 12/26/18 05:40; Admin Dose 20 MG; Start 12/04/18 at 10:30 Insulin Aspart (Novolog Insulin Pen) NOVOLOG *MODERATE* ALGORITHM WITH MEALS BEDTIME SC Last administered on 12/26/18 12:18; Admin Dose 2 UNIT; Start 12/08/18 at 21:00 Simethicone (Mylicon) 80 mg Q6H PRN PO DISTENSION/GAS/BLOATING; Start 12/13/18 at 17:30 Tramadol HCl (Ultram) 50 mg Q6H PRN PO MODERATE PAIN LEVEL 4-6 Last ad ministered on 12/26/18 06:47; Admin Dose 50 MG; Start 12/14/18 at 17:00 Meropenem/Sodium Chloride 50 ml @ 100 mls/hr Q8 IVPB Last administered on 12/26/18 05:40; Admin Dose 100 MLS/HR; Start 12/15/18 at 12:00 Lactobacillus Acidophilus/ Rhamnosus (Culturelle) 1 cap BID PO Last administered on 12/26/18 08:34; Admin Dose 1 CAP; Start 12/15/18 at 23:30 Loperamide HCl (Imodium Cap) 2 mg Q6H PRN PO DIARRHEA; Start 12/17/18 at 15:00 Amoxicillin (Amoxicillin) 500 mg Q8 PO Last administered on 12/26/18 05:40; Admin Dose 500 MG; Start 12/20/18 at 14:00 Insulin Aspart (Novolog Insulin Pen) 6 unit WITH MEALS SC Last administered on 12/26/18 12:17; Admin Dose 6 UNIT; Start 12/26/18 at 11:30 Insulin Glargine (Lantus) 45 units DAILY@0800 SC Last administered on 12/26/18at 12:16; Admin Dose 45 UNITS; Start 12/26/18 at 10:00 HERRERA OBRIEN NP Dec 26, 2018 14:29
[2018-12-26 14:38] VITALS: BP 120/64; PULSE 87; RESP 18
--- NOTE | 2018-12-26 17:12 | CONS ---
Assessment/Plan Assessment/Plan Hospital Course (Demo Recall) IMPRESSION: 1. Preoperative evaluation prior to possible need for peripheral revascularization surgery.-neg trop x 3 and NL EF by echo with no sig valve abnl. Echo repeat 11/13 with NL EF 2. Peripheral arterial disease with nonhealing gangrenous changes in left toe ulceration. 3. Hypertension-now tolerating low dose ACEI but with verey labile BP. Will follow 4. Dyslipidemia. 5. Diabetes mellitus. 6. s/p cardiopulmonary arrest 7. Bradycardic intermittent by tele-now resolved 8. Positive troponin after arrest-? secondary to or primary to arrest, likely secondary to arrest, type 2 demand infarct, as no significant uptrend and now downtrended to negative 9. Resp failure-s/p extubation 10. CVA-Acute by MRI 11.Groin wound now post-op s/p groin exploration/ligation of leaking lymphatics with placement of VAC 12. Loose stools Recc: -Now on med-surg -Continue asa/plavix/statin for cva -serial ecg's -s/p abx course, f/u bld cx's and exam -local wound care -follow volume status closely on daily PO lasix -follow MS closely -Continue now zestril mononotherapy at reduced dose as tolerated and follow marginal BP closely -metformin held, follow BS clsoely Consultation Date/Type/Reason Admit Date/Time Nov 04, 2018 at 07:34 Initial Consult Date 11/06/18 Type of Consult Cardiology Reason for Consultation HTN Requesting Provider: KARL WOOD MD Date/Time of Note DATE: 12/26/18 TIME: 17:09 Exam/Review of Systems Vital Signs Vitals Vital Signs Date Temp Pulse Resp B/P (MAP) Pulse Ox O2 O2 Flow FiO2 Time Delivery Rate 12/26/18 97.8 87 18 120/64 96 Room Air 14:38 (82) Intake and Output 12/25/18 12/25/18 12/26/18 1515:00 23:00 07:00 IntakeIntake Total 1090 ml 470 ml 50 ml OutputOutput Total 200 ml 5 ml BalanceBalance 890 ml 465 ml 50 ml Exam Exam Review of Systems: CONSTITUTIONAL: No fevers, chills. PULMONARY: No sob CARDIOVASCULAR: No chest pain/palpitations GASTROINTESTINAL: No nausea/vomiting. GENITOURINARY: No hematuria/dysuria. MUSCULOSKELETAL: No myagias/arthalgias. PSYCHIATRIC: The patient denies depression. NEUROLOGIC: No weakness Constitutional: alert Psych: no complaints Head: normocephalic ENMT: mucosa pink and moist Neck: supple, jvd (9 cm water) Respiratory: clear to auscultation Cardiovascular: regular rate and rhythm Gastrointestinal: soft, non-tender Musculoskeletal: muscle tone (normal) Extremities: edema (trace cLLE edema with foot covered by dressing) Neurological: other (No focal deficits) Labs Result Diagram: 12/23/18 0714 12/23/18 0714 Results 24hrs Laboratory Tests Test 12/25/18 17:37 12/25/18 20:53 12/26/18 03:04 12/26/18 08:12 Bedside Glucose 262 H 246 H 290 H 282 H Test 12/26/18 12:14 Bedside Glucose 168 Medications Medications Current Medications Ergocalciferol (Drisdol) 50,000 unit Sa PO Last administered on 12/21/18at 10:49; Admin Dose 50,000 UNIT; Start 11/09/18 at 09:00 Clonidine (Catapres) 0.1 mg Q6H PRN PO SBP>160 Last administered on 11/19/18at 03:04; Admin Dose 0.1 MG; Start 11/04/18 at 09:00 IV Flush (NS 3 ml) 3 ml PER PROTOCOL IV ; Start 11/04/18 at 09:00 Ondansetron HCl (Zofran Inj) 4 mg Q6H PRN IV NAUSEA/VOMITING Last administered on 12/15/18at 16:52; Admin Dose 4 MG; Start 11/04/18 at 09:00 Acetaminophen (Tylenol Tab) 650 mg Q6H PRN PO .PAIN 1-3 OR TEMP Last administer ed on 12/14/18at 00:29; Admin Dose 650 MG; Start 11/04/18 at 09:00 Miscellaneous Information 1 ea NOTE XX ; Start 11/04/18 at 09:00 Glucose (Glutose) 15 gm Q15M PRN PO DECREASED GLUCOSE Last administered on 12/17/18at 06:56; Admin Dose 15 GM; Start 11/04/18 at 09:00 Glucose (Glutose) 22.5 gm Q15M PRN PO DECREASED GLUCOSE; Start 11/04/18 at 09:00 Dextrose (D50w Syringe) 25 ml Q15M PRN IV DECREASED GLUCOSE; Start 11/04/18 at 09:00 Dextrose (D50w Syringe) 50 ml Q15M PRN IV DECREASED GLUCOSE; Start 11/04/18 at 09:00 Glucagon (Glucagen) 1 mg Q15M PRN IM DECREASED GLUCOSE; Start 11/04/18 at 09:00 Glucose (Glutose) 15 gm Q15M PRN BUCCAL DECREASED GLUCOSE; Start 11/04/18 at 09:00 Miscellaneous Information Patients own medicat... BID@10,16 XX Last administered on 12/18/18 10:32; Admin Dose 1 EA; Start 11/04/18 at 16:00 Hydralazine HCl (Apresoline) 10 mg Q4H PRN IV sbp >160 Last administered on 12/24/18 14:18; Admin Dose 10 MG; Start 11/08/18 at 09:00 Atropine Sulfate (Atropine) 0.5 mg PRN PRN IV SYMPTOMATIC BRADYCARDIA; Start 11/11/18 at 23:00 Heparin Sodium (Porcine) (Heparin (5000 Units/1ml)) 5,000 unit BID SC Last administered on 12/26/18 08:38; Admin Dose 5,000 UNIT; Start 11/14/18 at 21:00 Bisacodyl (Dulcolax Supp) 10 mg DAILY PRN [place] CONSTIPATION Last administered on 11/14/18 16:43; Admin Dose 10 MG; Start 11/14/18 at 16:30 IV Flush (NS 10 ml) 10 ml PRN PRN IV FLUSH LINE; Start 11/15/18 at 15:30 Gabapentin (Neurontin Liquid) 300 mg BID PO Last administered on 12/26/18 12:15; Admin Dose 300 MG; Start 11/18/18 at 21:00 Ascorbic Acid (Vitamin C) 500 mg DAILY PO Last administered on 12/26/18 08:34; Admin Dose 500 MG; Start 11/20/18 at 09:00 Zinc Sulfate (Zinc Sulfate) 220 mg DAILY PO Last administered on 12/26/18 08:35; Admin Dose 220 MG; Start 11/20/18 at 09:00 Atorvastatin Calcium (Lipitor) 80 mg QHS PO Last administered on 12/25/18 20:55; Admin Dose 80 MG; Start 11/19/18 at 21:00 Lorazepam (Ativan) 0.5 mg Q6H PRN IV anxiety/agitation Last administered on 19:32; Admin Dose 0.5 MG; Start 11/22/18 at 11:00 Clopidogrel Bisulfate (plaVIX) 75 mg DAILY PO Last administered on 12/26/18 08:35; Admin Dose 75 MG; Start 11/23/18 at 09:00 Haloperidol (Haldol) 5 mg Q12H PRN IM agitation Last administered on 11/22/18 19:44; Admin Dose 5 MG; Start 11/22/18 at 14:30 Quetiapine Fumarate (Seroquel) 25 mg QHS PO Last administered on 12/25/18 20:55; Admin Dose 25 MG; Start 11/26/18 at 21:00 Polyethylene Glycol (Miralax) 17 gm DAILY PRN PO constipation Last administered on 12/06/18 06:10; Admin Dose 17 GM; Start 11/29/18 at 08:02 Aspirin (Aspirin) 81 mg DAILY PO Last administered on 12/26/18 08:35; Admin Dose 81 MG; Start 11/29/18 at 09:00 Famotidine (Pepcid) 20 mg DAILY PO Last administered on 12/26/18 08:35; Admin Dose 20 MG; Start 11/29/18 at 09:00 Senna/Docusate Sodium (Senokot-S) 1 tab BID PRN PO constipation Last administered on 12/09/18 08:07; Admin Dose 1 TAB; Start 11/29/18 at 08:30 Lisinopril (Zestril) 2.5 mg DAILY PO Last administered on 12/25/18 08:15; Admin Dose 2.5 MG; Start 12/03/18 at 09:00 Furosemide (Lasix) 20 mg DAILY@0600 PO Last administered on 12/26/18 05:40; Admin Dose 20 MG; Start 12/04/18 at 10:30 Insulin Aspart (Novolog Insulin Pen) NOVOLOG *MODERATE* ALGORITHM WITH MEALS BEDTIME SC Last administered on 12/26/18 12:18; Admin Dose 2 UNIT; Start 12/08/18 at 21:00 Simethicone (Mylicon) 80 mg Q6H PRN PO DISTENSION/GAS/BLOATING; Start 12/13/18 at 17:30 Tramadol HCl (Ultram) 50 mg Q6H PRN PO MODERATE PAIN LEVEL 4-6 Last administered on 12/26/18 06:47; Admin Dose 50 MG; Start 12/14/18 at 17:00 Lactobacillus Acidophilus/ Rhamnosus (Culturelle) 1 cap BID PO Last administered on 12/26/18 08:34; Admin Dose 1 CAP; Start 12/15/18 at 23:30 Loperamide HCl (Imodium Cap) 2 mg Q6H PRN PO DIARRHEA; Start 12/17/18 at 15:00 Insulin Aspart (Novolog Insulin Pen) 6 unit WITH MEALS SC Last administered on 12/26/18 12:17; Admin Dose 6 UNIT; Start 12/26/18 at 11:30 Insulin Glargine (Lantus) 45 units DAILY@0800 SC Last administered on 12/26/18 12:16; Admin Dose 45 UNITS; Start 12/26/18 at 10:00 KLEVER HUNT Dec 26, 2018 17:12
[2018-12-26 19:38] VITALS: BP 117/59; PULSE 94; RESP 18
[2018-12-26] MEDS: ATORVASTATIN 80 MG TAB PO SCH (20:57)
[2018-12-26] MEDS: QUETIAPINE 25 MG TAB PO SCH (20:57)
[2018-12-27 02:00] VITALS: BP 164/76; PULSE 116; RESP 16
[2018-12-27 02:58] VITALS: BP 133/75; PULSE 90
[2018-12-27] MEDS: FUROSEMIDE 20 MG TAB PO SCH (05:54)
[2018-12-27 08:00] VITALS: BP 89/49; PULSE 97; RESP 20
[2018-12-27] MEDS: INSULIN GLARGINE [LANTus] (100 UNITS/ML) SYG SC SCH (08:15)
[2018-12-27] MEDS: INSULIN ASPART [NOVOLOG] 3 ML PEN SC SCH ×7 (08:17→21:00)
[2018-12-27] MEDS: HEPARIN 5,000 UNIT/1 ML VIAL SC SCH ×2 (08:18→21:27)
[2018-12-27] MEDS: ZINC SULFATE 220 MG CAP PO SCH (08:20)
[2018-12-27] MEDS: SENNA/DOCUSATE NA (8.6MG/50MG) TAB PO PRN (08:21)
[2018-12-27] MEDS: FAMOTIDINE 20 MG TAB PO SCH (08:21)
[2018-12-27] MEDS: LACTOBACILLUS RHAMNOSUS CAP PO SCH ×2 (08:21→21:25)
[2018-12-27] MEDS: ASCORBIC ACID 500 MG TAB PO SCH (08:21)
[2018-12-27] MEDS: GABAPENTIN (50 MG/ML PO SYG) PO SCH ×2 (08:21→21:26)
[2018-12-27] MEDS: CLOPIDOGREL 75 MG TAB PO SCH (08:21)
[2018-12-27] MEDS: ASPIRIN 81 MG TAB PO SCH (08:21)
[2018-12-27] MEDS: LISINOPRIL 5 MG TAB PO SCH (08:23)
--- NOTE | 2018-12-27 10:25 | PN ---
Date/Time of Note Date/Time of Note DATE: 12/27/18 TIME: 10:20 Assessment/Plan VTE Prophylaxis Risk score (from Ns)>0 risk: 3 SCD applied (from Ns): No SCD contraindicated: low risk/ambulating Pharmacological prophylaxis: NA/contraindicated Pharm contraindication: low risk/ambulating Lines/Catheters IV Catheter Type (from [facility] Urinary Cath still in place: No Assessment/Plan Assessment/Plan 1. Drainage from surgical site and groin area- stable - continue wound vac with dressing changes twice a week - s/p surgical exploration the ground surgical site, graft did not need to be replaced, lymph drainage cleaned up by vascular surgeon - CM on board and assisting with SNF placement per sons request - completed course of IV antibiotics. appreciate ID consultation 2. 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 no further procedures scheduled at this time. will need to follow up as outpatient 3. Left frontal CVA- stable - no neurology deficits appreciated - Neurology consultation appreciated - continue on aspirin and Plavix and statin 4. left-sided internal carotid artery stenosis - 25% per CT angiogram, continue aspirin, statin, Plavix per vascular surgeon 5. h/o Cardiac arrest s/p ROSC - Cardiology on board and appreciate recommendations - ECHO with preserved EF 6. Severe peripheral vascular disease - s/p left femoral endarterectomy, iliofemoral bypass and femoral to posterior tibial bypass done on November 08, 2018 - Vascular surgery consultation appreciated. Continue aspirin and Plavix 7. Diabetes Mellitus - A1c noted - metformin dc'd due to intolerance 8. Acute kidney injury- resolved - nephrology consultation appreciated 9. Essential HTN - Continue home medications at this time as tolerated 10. Peripheral neuropathy - cont. gabapentin 11. HLD - On statin 12. Chronic anemia - Stable H&H. Monitor - no need for transfusions at this time 13. Disposition - CM on board for SNF placement Result Diagram: 12/23/18 0714 12/23/18 0714 Results 24hrs Laboratory Tests Test 12/26/18 12:14 12/26/18 17:28 12/26/18 20:50 12/27/18 07:54 Bedside Glucose 168 240 H 171 212 Subjective 24 Hr Interval Summary Free Text/Dictation Patient doing well and resting comfortably. No acute overnight events. Exam/Review of Systems Exam Vitals Vital Signs Date Temp Pulse Resp B/P (MAP) Pulse Ox O2 O2 Flow FiO2 Time Delivery Rate 12/27/18 98.8 97 20 89/49 (62) 93 08:00 12/27/18 Room Air 02:00 Intake and Output 12/26/18 12/26/18 12/27/18 1515:00 23:00 07:00 IntakeIntake Total 940 ml 400 ml OutputOutput Total 10 ml BalanceBalance 940 ml 390 ml Exam General: Patient is laying in bed. no acute distress Mentation: Patient is alert and oriented Neck: Supple, nontender, midline Respiratory: Diminished. no wheezing or rhonchi Cardiovascular: regular rate and rhythm, no obvious murmurs Gastrointestinal: soft, non-tender to palpation, bowel sounds heard. Skin: No new skin lesions, surgical site bandaged, CDI Results Results 24hrs Laboratory Tests Test 12/26/18 12:14 12/26/18 17:28 12/26/18 20:50 12/27/18 07:54 Bedside Glucose 168 240 H 171 212 Medications Medication Current Medications Ergocalciferol (Drisdol) 50,000 unit Sa PO Last administered on 12/21/18at 10:49; Admin Dose 50,000 UNIT; Start 11/09/18 at 09:00 Clonidine (Catapres) 0.1 mg Q6H PRN PO SBP>160 Last administered on 12/27/18at 01:58; Admin Dose 0.1 MG; Start 11/04/18 at 09:00 IV Flush (NS 3 ml) 3 ml PER PROTOCOL IV ; Start 11/04/18 at 09:00 Ondansetron HCl (Zofran Inj) 4 mg Q6H PRN IV NAUSEA/VOMITING Last administered on 12/15/18at 16:52; Admin Dose 4 MG; Start 11/04/18 at 09:00 Acetaminophen (Tylenol Tab) 650 mg Q6H PRN PO .PAIN 1-3 OR TEMP Last administered on 12/14/18at 00:29; Admin Dose 650 MG; Start 11/04/18 at 09:00 Miscellaneous Information 1 ea NOTE XX ; Start 11/04/18 at 09:00 Glucose (Glutose) 15 gm Q15M PRN PO DECREASED GLUCOSE Last administered on 12/17/18at 06:56; Admin Dose 15 GM; Start 11/04/18 at 09:00 Glucose (Glutose) 22.5 gm Q15M PRN PO DECREASED GLUCOSE; Start 11/04/18 at 09:0 0 Dextrose (D50w Syringe) 25 ml Q15M PRN IV DECREASED GLUCOSE; Start 11/04/18 at 09:00 Dextrose (D50w Syringe) 50 ml Q15M PRN IV DECREASED GLUCOSE; Start 11/04/18 at 09:00 Glucagon (Glucagen) 1 mg Q15M PRN IM DECREASED GLUCOSE; Start 11/04/18 at 09:00 Glucose (Glutose) 15 gm Q15M PRN BUCCAL DECREASED GLUCOSE; Start 11/04/18 at 09:00 Miscellaneous Information Patients own medicat... BID@10,16 XX Last administered on 12/18/18at 10:32; Admin Dose 1 EA; Start 11/04/18 at 16:00 Hydralazine HCl (Apresoline) 10 mg Q4H PRN IV sbp >160 Last administered on 12/24/18at 14:18; Admin Dose 10 MG; Start 11/08/18 at 09:00 Atropine Sulfate (Atropine) 0.5 mg PRN PRN IV SYMPTOMATIC BRADYCARDIA; Start 11/11/18 at 23:00 Heparin Sodium (Porcine) (Heparin (5000 Units/1ml)) 5,000 unit BID SC Last administered on 12/27/18 08:18; Admin Dose 5,000 UNIT; Start 11/14/18 at 21:00 Bisacodyl (Dulcolax Supp) 10 mg DAILY PRN [place] CONSTIPATION Last administered on 11/14/18at 16:43; Admin Dose 10 MG; Start 11/14/18 at 16:30 IV Flush (NS 10 ml) 10 ml PRN PRN IV FLUSH LINE; Start 11/15/18 at 15:30 Gabapentin (Neurontin Liquid) 300 mg BID PO Last administered on 12/27/18 08:21; Admin Dose 300 MG; Start 11/18/18 at 21:00 Ascorbic Acid (Vitamin C) 500 mg DAILY PO Last administered on 12/27/18 08:21; Admin Dose 500 MG; Start 11/20/18 at 09:00 Zinc Sulfate (Zinc Sulfate) 220 mg DAILY PO Last administered on 12/27/18 08:20; Admin Dose 220 MG; Start 11/20/18 at 09:00 Atorvastatin Calcium (Lipitor) 80 mg QHS PO Last administered on 12/26/18 20:57; Admin Dose 80 MG; Start 11/19/18 at 21:00 Lorazepam (Ativan) 0.5 mg Q6H PRN IV anxiety/agitation Last administered on 11/22/18 19:32; Admin Dose 0.5 MG; Start 11/22/18 at 11:00 Clopidogrel Bisulfate (plaVIX) 75 mg DAILY PO Last administered on 12/27/18 08:21; Admin Dose 75 MG; Start 11/23/18 at 09:00 Haloperidol (Haldol) 5 mg Q12H PRN IM agitation Last administered on 11/22/18 19:44; Admin Dose 5 MG; Start 11/22/18 at 14:30 Quetiapine Fumarate (Seroquel) 25 mg QHS PO Last administered on 12/26/18 20:57; Admin Dose 25 MG; Start 11/26/18 at 21:00 Polyethylene Glycol (Miralax) 17 gm DAILY PRN PO constipation Last administered on 12/06/18 06:10; Admin Dose 17 GM; Start 11/29/18 at 08:02 Aspirin (Aspirin) 81 mg DAILY PO Last administered on 12/27/18 08:21; Admin Dose 81 MG; Start 11/29/18 at 09:00 Famotidine (Pepcid) 20 mg DAILY PO Last administered on 12/27/18 08:21; Admin Dose 20 MG; Start 11/29/18 at 09:00 Senna/Docusate Sodium (Senokot-S) 1 tab BID PRN PO constipation Last administered on 12/27/18 08:21; Admin Dose 1 TAB; Start 11/29/18 at 08:30 Lisinopril (Zestril) 2.5 mg DAILY PO Last administered on 12/27/18 08:23; Admin Dose 2.5 MG; Start 12/03/18 at 09:00 Furosemide (Lasix) 20 mg DAILY@0600 PO Last administered on 12/26/18 05:40; Admin Dose 20 MG; Start 12/04/18 at 10:30 Insulin Aspart (Novolog Insulin Pen) NOVOLOG *MODERATE* ALGORITHM WITH MEALS BEDTIME SC Last administered on 12/27/18 08:18; Admin Dose 4 UNIT; Start 12/08/18 at 21:00 Simethicone (Mylicon) 80 mg Q6H PRN PO DISTENSION/GAS/BLOATING; Start 12/13/18 at 17:30 Tramadol HCl (Ultram) 50 mg Q6H PRN PO MODERATE PAIN LEVEL 4-6 Last administered on 12/26/18 21:04; Admin Dose 50 MG; Start 12/14/18 at 17:00 Lactobacillus Acidophilus/ Rhamnosus (Culturelle) 1 cap BID PO Last administered on 12/27/18 08:21; Admin Dose 1 CAP; Start 12/15/18 at 23:30 Loperamide HCl (Imodium Cap) 2 mg Q6H PRN PO DIARRHEA; Start 12/17/18 at 15:00 Insulin Aspart (Novolog Insulin Pen) 6 unit WITH MEALS SC Last administered on 12/27/18 08:17; Admin Dose 6 UNIT; Start 12/26/18 at 11:30 Insulin Glargine (Lantus) 45 units DAILY@0800 SC Last administered on 12/27/18 08:15; Admin Dose 45 UNITS; Start 12/26/18 at 10:00 KARL WOOD MD Dec 27, 2018 10:25
[2018-12-27 14:00] VITALS: BP 121/58; PULSE 80; RESP 14
--- NOTE | 2018-12-27 14:40 | CONS ---
Assessment/Plan Assessment/Plan Hospital Course (Demo Recall) No events, no fevers Micro: left groin wound culture grew Klebsiella ESBL and enterococcus sp ecies===> s/p abx Abx: none Physical examination: Well-developed elderly man who is in no distress head atraumatic normocephalic neck is supple chest rise symmetrical breath sounds CTA heart S1-S2, abdomen soft bowel sounds present extremities with left foot dressing intact Assessment: 1. Bacteremia, cw contaminant 2. UTI per ua==> neg cx 3. Status post cardiac arrest/non-ST elevation [place] 4. Status post acute respiratory failure, possibly aspirated 5. Peripheral arterial disease status post left femoral to posterior tibial bypass 11/08/18 6. Diabetes 7. History of left foot second toe amputation 8. Left groin wound, status post exploration 12/19/18 with wound VAC placement==> no graft involvement Plan: Remains stable, completed abx Consultation Date/Type/Reason Admit Date/Time Nov 04, 2018 at 07:34 Initial Consult Date Type of Consult id Requesting Provider: KARL WOOD MD Date/Time of Note DATE: 12/27/18 TIME: 14:39 Exam/Review of Systems Exam Vitals Vital Signs Date Temp Pulse Resp B/P (MAP) Pulse Ox O2 O2 Flow FiO2 Time Delivery Rate 12/27/18 98.8 97 20 89/49 (62) 93 08:00 12/27/18 Room Air 02:00 Intake and Output 12/26/18 12/26/18 12/27/18 1515:00 23:00 07:00 IntakeIntake Total 940 ml 400 ml OutputOutput Total 10 ml BalanceBalance 940 ml 390 ml Results Result Diagram: 12/23/18 0714 12/23/18 0714 Results 24hrs Laboratory Tests Test 12/26/18 17:28 12/26/18 20:50 12/27/18 07:54 12/27/18 11:56 Bedside Glucose 240 H 171 212 115 Medications Medication Current Medications Ergocalciferol (Drisdol) 50,000 unit Sa PO Last administered on 12/21/18at 10:49; Admin Dose 50,000 UNIT; Start 11/09/18 at 09:00 Clonidine (Catapres) 0.1 mg Q6H PRN PO SBP>160 Last administered on 12/27/18at 01:58; Admin Dose 0.1 MG; Start 11/04/18 at 09:00 IV Flush (NS 3 ml) 3 ml PER PROTOCOL IV ; Start 11/04/18 at 09:00 Ondansetron HCl (Zofran Inj) 4 mg Q6H PRN IV NAUSEA/VOMITING Last administered on 12/15/18 16:52; Admin Dose 4 MG; Start 11/04/18 at 09:00 Acetaminophen (Tylenol Tab) 650 mg Q6H PRN PO .PAIN 1-3 OR TEMP Last administered on 12/14/18at 00:29; Admin Dose 650 MG; Start 11/04/18 at 09:00 Miscellaneous Information 1 ea NOTE XX ; Start 11/04/18 at 09:00 Glucose (Glutose) 15 gm Q15M PRN PO DECREASED GLUCOSE Last administered on 12/17/18at 06:56; Admin Dose 15 GM; Start 11/04/18 at 09:00 Glucose (Glutose) 22.5 gm Q15M PRN PO DECREASED GLUCOSE; Start 11/04/18 at 09:00 Dextrose (D50w Syringe) 25 ml Q15M PRN IV DECREASED GLUCOSE; Start 11/04/18 at 09:00 Dextrose (D50w Syringe) 50 ml Q15M PRN IV DECREASED GLUCOSE; Start 11/04/18 at 09:00 Glucagon (Glucagen) 1 mg Q15M PRN IM DECREASED GLUCOSE; Start 11/04/18 at 09:00 Glucose (Glutose) 15 gm Q15M PRN BUCCAL DECREASED GLUCOSE; Start 11/04/18 at 09:00 Miscellaneous Information Patients own medicat... BID@10,16 XX Last administered on 12/18/18at 10:32; Admin Dose 1 EA; Start 11/04/18 at 16:00 Hydralazine HCl (Apresoline) 10 mg Q4H PRN IV sbp >160 Last administered on 12/24/18at 14:18; Admin Dose 10 MG; Start 11/08/18 at 09:00 Atropine Sulfate (Atropine) 0.5 mg PRN PRN IV SYMPTOMATIC BRADYCARDIA; Start 11/11/18 at 23:00 Heparin Sodium (Porcine) (Heparin (5000 Units/1ml)) 5,000 unit BID SC Last administered on 12/27/18 08:18; Admin Dose 5,000 UNIT; Start 11/14/18 at 21:00 Bisacodyl (Dulcolax Supp) 10 mg DAILY PRN [place] CONSTIPATION Last administered on 11/14/18 16:43; Admin Dose 10 MG; Start 11/14/18 at 16:30 IV Flush (NS 10 ml) 10 ml PRN PRN IV FLUSH LINE; Start 11/15/18 at 15:30 Gabapentin (Neurontin Liquid) 300 mg BID PO Last administered on 12/27/18 08:21; Admin Dose 300 MG; Start 11/18/18 at 21:00 Ascorbic Acid (Vitamin C) 500 mg DAILY PO Last administered on 12/27/18 08:21; Admin Dose 500 MG; Start 11/20/18 at 09:00 Zinc Sulfate (Zinc Sulfate) 220 mg DAILY PO Last administered on 12/27/18 08:20; Admin Dose 220 MG; Start 11/20/18 at 09:00 Atorvastatin Calcium (Lipitor) 80 mg QHS PO Last administered on 12/26/18 20 :57; Admin Dose 80 MG; Start 11/19/18 at 21:00 Lorazepam (Ativan) 0.5 mg Q6H PRN IV anxiety/agitation Last administered on 11/22/18 19:32; Admin Dose 0.5 MG; Start 11/22/18 at 11:00 Clopidogrel Bisulfate (plaVIX) 75 mg DAILY PO Last administered on 12/27/18 08:21; Admin Dose 75 MG; Start 11/23/18 at 09:00 Haloperidol (Haldol) 5 mg Q12H PRN IM agitation Last administered on 11/22/18 19:44; Admin Dose 5 MG; Start 11/22/18 at 14:30 Quetiapine Fumarate (Seroquel) 25 mg QHS PO Last administered on 12/26/18 20:57; Admin Dose 25 MG; Start 11/26/18 at 21:00 Polyethylene Glycol (Miralax) 17 gm DAILY PRN PO constipation Last administered on 12/06/18 06:10; Admin Dose 17 GM; Start 11/29/18 at 08:02 Aspirin (Aspirin) 81 mg DAILY PO Last administered on 12/27/18 08:21; Admin Dose 81 MG; Start 11/29/18 at 09:00 Famotidine (Pepcid) 20 mg DAILY PO Last administered on 12/27/18 08:21; Admin Dose 20 MG; Start 11/29/18 at 09:00 Senna/Docusate Sodium (Senokot-S) 1 tab BID PRN PO constipation Last admi nistered on 12/27/18 08:21; Admin Dose 1 TAB; Start 11/29/18 at 08:30 Lisinopril (Zestril) 2.5 mg DAILY PO Last administered on 12/27/18 08:23; Admin Dose 2.5 MG; Start 12/03/18 at 09:00 Furosemide (Lasix) 20 mg DAILY@0600 PO Last administered on 12/26/18 05:40; Admin Dose 20 MG; Start 12/04/18 at 10:30 Insulin Aspart (Novolog Insulin Pen) NOVOLOG *MODERATE* ALGORITHM WITH MEALS BEDTIME SC Last administered on 12/27/18 08:18; Admin Dose 4 UNIT; Start 12/08/18 at 21:00 Simethicone (Mylicon) 80 mg Q6H PRN PO DISTENSION/GAS/BLOATING; Start 12/13/18 at 17:30 Tramadol HCl (Ultram) 50 mg Q6H PRN PO MODERATE PAIN LEVEL 4-6 Last administered on 12/26/18 21:04; Admin Dose 50 MG; Start 12/14/18 at 17:00 Lactobacillus Acidophilus/ Rhamnosus (Culturelle) 1 cap BID PO Last administered on 12/27/18 08:21; Admin Dose 1 CAP; Start 12/15/18 at 23:30 Loperamide HCl (Imodium Cap) 2 mg Q6H PRN PO DIARRHEA; Start 12/17/18 at 15:00 Insulin Aspart (Novolog Insulin Pen) 6 unit WITH MEALS SC Last administered on 12/27/18 12:00; Admin Dose 6 UNIT; Start 12/26/18 at 11:30 Insulin Glargine (Lantus) 45 units DAILY@0800 SC Last administered on 12/27/18 08:15; Admin Dose 45 UNITS; Start 12/26/18 at 10:00 HERRERA OBRIEN NP Dec 27, 2018 14:40
--- NOTE | 2018-12-27 15:03 | CONS ---
Assessment/Plan Assessment/Plan Hospital Course (Demo Recall) IMPRESSION: 1. Preoperative evaluation prior to possible need for peripheral revascularization surgery.-neg trop x 3 and NL EF by echo with no sig valve abnl. Echo repeat 11/13 with NL EF 2. Peripheral arterial disease with nonhealing gangrenous changes in left toe ulceration. 3. Hypertension-now tolerating low dose ACEI but with very labile overall 4. Dyslipidemia. 5. Diabetes mellitus. 6. s/p cardiopulmonary arrest 7. Bradycardic intermittent by tele-now resolved 8. Positive troponin after arrest-? secondary to or primary to arrest, likely secondary to arrest, type 2 demand infarct, as no significant uptrend and now downtrended to negative 9. Resp failure-s/p extubation 10. CVA-Acute by MRI 11.Groin wound now post-op s/p groin exploration/ligation of leaking lymphatics with placement of VAC 12. Loose stools Recc: -Now on med-surg -Continue asa/plavix/statin for cva -serial ecg's -s/p abx course, f/u bld cx's and exam -local wound care -follow volume status closely on daily PO lasix -follow MS closely -Continue now zestril mononotherapy at reduced dose as tolerated and follow marginal BP closely -metformin held, follow BS clsoely Consultation Date/Type/Reason Admit Date/Time Nov 04, 2018 at 07:34 Initial Consult Date 11/06/18 Type of Consult Cardiology Reason for Consultation Preop Requesting Provider: KARL WOOD MD Date/Time of Note DATE: 12/27/18 TIME: 15:02 Exam/Review of Systems Vital Signs Vitals Vital Signs Date Temp Pulse Resp B/P (MAP) Pulse Ox O2 O2 Flow FiO2 Time Delivery Rate 12/27/18 98.8 97 20 89/49 (62) 93 08:00 12/27/18 Room Air 02:00 Intake and Output 12/26/18 12/26/18 12/27/18 1515:00 23:00 07:00 IntakeIntake Total 940 ml 400 ml OutputOutput Total 10 ml BalanceBalance 940 ml 390 ml Exam Exam Review of Systems: CONSTITUTIONAL: No fevers, chills. PULMONARY: No sob CARDIOVASCULAR: No chest pain/palpitations GASTROINTESTINAL: No nausea/vomiting. GENITOURINARY: No hematuria/dysuria. MUSCULOSKELETAL: No myagias/arthalgias. PSYCHIATRIC: The patient denies depression. NEUROLOGIC: No weakness Constitutional: alert Psych: no complaints Head: normocephalic ENMT: mucosa pink and moist Neck: supple, jvd (9 cm water) Respiratory: diminished breath sounds (at bases/B) Cardiovascular: regular rate and rhythm Gastrointestinal: soft, non-tender Musculoskeletal: muscle weakness (mild generalized) Extremities: edema (LLE), other (L foot covered by dressing) Labs Result Diagram: 12/23/1871312/23/18713 Results 24hrs Laboratory Tests Test 12/26/18 17:28 12/26/18 20:50 12/27/18 07:54 12/27/18 11:56 Bedside Glucose 240 H 171 212 115 Medications Medications Current Medications Ergocalciferol (Drisdol) 50,000 unit Sa PO Last administered on 12/21/18at 10:49; Admin Dose 50,000 UNIT; Start 11/09/18 at 09:00 Clonidine (Catapres) 0.1 mg Q6H PRN PO SBP>160 Last administered on 12/27/18at 01:58; Admin Dose 0.1 MG; Start 11/04/18 at 09:00 IV Flush (NS 3 ml) 3 ml PER PROTOCOL IV ; Start 11/04/18 at 09:00 Ondansetron HCl (Zofran Inj) 4 mg Q6H PRN IV NAUSEA/VOMITING Last administered on 12/15/18at 16:52; Admin Dose 4 MG; Start 11/04/18 at 09:00 Acetaminophen (Tylenol Tab) 650 mg Q6H PRN PO .PAIN 1-3 OR TEMP Last adminis tered on 12/14/18at 00:29; Admin Dose 650 MG; Start 11/04/18 at 09:00 Miscellaneous Information 1 ea NOTE XX ; Start 11/04/18 at 09:00 Glucose (Glutose) 15 gm Q15M PRN PO DECREASED GLUCOSE Last administered on 12/17/18at 06:56; Admin Dose 15 GM; Start 11/04/18 at 09:00 Glucose (Glutose) 22.5 gm Q15M PRN PO DECREASED GLUCOSE; Start 11/04/18 at 09:00 Dextrose (D50w Syringe) 25 ml Q15M PRN IV DECREASED GLUCOSE; Start 11/04/18 at 09:00 Dextrose (D50w Syringe) 50 ml Q15M PRN IV DECREASED GLUCOSE; Start 11/04/18 at 09:00 Glucagon (Glucagen) 1 mg Q15M PRN IM DECREASED GLUCOSE; Start 11/04/18 at 09:00 Glucose (Glutose) 15 gm Q15M PRN BUCCAL DECREASED GLUCOSE; Start 11/04/18 at 09:00 Miscellaneous Information Patients own medicat... BID@10,16 XX Last administered on 12/18/18 10:32; Admin Dose 1 EA; Start 11/04/18 at 16:00 Hydralazine HCl (Apresoline) 10 mg Q4H PRN IV sbp >160 Last administered on 12/24/18 14:18; Admin Dose 10 MG; Start 11/08/18 at 09:00 Atropine Sulfate (Atropine) 0.5 mg PRN PRN IV SYMPTOMATIC BRADYCARDIA; Start 11/11/18 at 23:00 Heparin Sodium (Porcine) (Heparin (5000 Units/1ml)) 5,000 unit BID SC Last administered on 12/27/18 08:18; Admin Dose 5,000 UNIT; Start 11/14/18 at 21:00 Bisacodyl (Dulcolax Supp) 10 mg DAILY PRN [place] CONSTIPATION Last administered on 11/14/18 16:43; Admin Dose 10 MG; Start 11/14/18 at 16:30 IV Flush (NS 10 ml) 10 ml PRN PRN IV FLUSH LINE; Start 11/15/18 at 15:30 Gabapentin (Neurontin Liquid) 300 mg BID PO Last administered on 12/27/18 08:21; Admin Dose 300 MG; Start 11/18/18 at 21:00 Ascorbic Acid (Vitamin C) 500 mg DAILY PO Last administered on 12/27/18 08:21; Admin Dose 500 MG; Start 11/20/18 at 09:00 Zinc Sulfate (Zinc Sulfate) 220 mg DAILY PO Last administered on 12/27/18 08:20; Admin Dose 220 MG; Start 11/20/18 at 09:00 Atorvastatin Calcium (Lipitor) 80 mg QHS PO Last administered on 12/26/18 20:57; Admin Dose 80 MG; Start 11/19/18 at 21:00 Lorazepam (Ativan) 0.5 mg Q6H PRN IV anxiety/agitation Last administered on 11/22/18 19:32; Admin Dose 0.5 MG; Start 11/22/18 at 11:00 Clopidogrel Bisulfate (plaVIX) 75 mg DAILY PO Last administered on 12/27/18 08:21; Admin Dose 75 MG; Start 11/23/18 at 09:00 Haloperidol (Haldol) 5 mg Q12H PRN IM agitation Last administered on 11/22/18 19:44; Admin Dose 5 MG; Start 11/22/18 at 14:30 Quetiapine Fumarate (Seroquel) 25 mg QHS PO Last administered on 12/26/18 20:57; Admin Dose 25 MG; Start 11/26/18 at 21:00 Polyethylene Glycol (Miralax) 17 gm DAILY PRN PO constipation Last administered on 12/06/18 06:10; Admin Dose 17 GM; Start 11/29/18 at 08:02 Aspirin (Aspirin) 81 mg DAILY PO Last administered on 12/27/18 08:21; Admin Dose 81 MG; Start 11/29/18 at 09:00 Famotidine (Pepcid) 20 mg DAILY PO Last administered on 12/27/18 08:21; Admin Dose 20 MG; Start 11/29/18 at 09:00 Senna/Docusate Sodium (Senokot-S) 1 tab BID PRN PO constipation Last administered on 12/27/18 08:21; Admin Dose 1 TAB; Start 11/29/18 at 08:30 Lisinopril (Zestril) 2.5 mg DAILY PO Last administered on 12/27/18 08:23; Admin Dose 2.5 MG; Start 12/03/18 at 09:00 Furosemide (Lasix) 20 mg DAILY@0600 PO Last administered on 12/26/18 05:40; Admin Dose 20 MG; Start 12/04/18 at 10:30 Insulin Aspart (Novolog Insulin Pen) NOVOLOG *MODERATE* ALGORITHM WITH MEALS BEDTIME SC Last administered on 12/27/18 08:18; Admin Dose 4 UNIT; Start 12/08/18 at 21:00 Simethicone (Mylicon) 80 mg Q6H PRN PO DISTENSION/GAS/BLOATING; Start 12/13/18 at 17:30 Tramadol HCl (Ultram) 50 mg Q6H PRN PO MODERATE PAIN LEVEL 4-6 Last administered on 12/26/18at 21:04; Admin Dose 50 MG; Start 12/14/18 at 17:00 Lactobacillus Acidophilus/ Rhamnosus (Culturelle) 1 cap BID PO Last administered on 12/27/18 08:21; Admin Dose 1 CAP; Start 12/15/18 at 23:30 Loperamide HCl (Imodium Cap) 2 mg Q6H PRN PO DIARRHEA; Start 12/17/18 at 15:00 Insulin Aspart (Novolog Insulin Pen) 6 unit WITH MEALS SC Last administered on 12/27/18 12:00; Admin Dose 6 UNIT; Start 12/26/18 at 11:30 Insulin Glargine (Lantus) 45 units DAILY@0800 SC Last administered on 12/27/18 08:15; Admin Dose 45 UNITS; Start 12/26/18 at 10:00 KLEVER HUNT Dec 27, 2018 15:03
[2018-12-27 20:10] VITALS: BP 106/58; PULSE 86; RESP 18
[2018-12-27] MEDS: QUETIAPINE 25 MG TAB PO SCH (21:25)
[2018-12-27] MEDS: ATORVASTATIN 80 MG TAB PO SCH (21:25)
[2018-12-28 02:10] VITALS: BP 105/51; PULSE 80; RESP 18
[2018-12-28] MEDS: FUROSEMIDE 20 MG TAB PO SCH (05:52)
[2018-12-28 07:21] VITALS: BP 106/53; PULSE 83; RESP 16
[2018-12-28] MEDS: GABAPENTIN (50 MG/ML PO SYG) PO SCH ×2 (08:16→20:14)
[2018-12-28] MEDS: ZINC SULFATE 220 MG CAP PO SCH (08:16)
[2018-12-28] MEDS: FAMOTIDINE 20 MG TAB PO SCH (08:16)
[2018-12-28] MEDS: CLOPIDOGREL 75 MG TAB PO SCH (08:17)
[2018-12-28] MEDS: ASPIRIN 81 MG TAB PO SCH (08:17)
[2018-12-28] MEDS: ASCORBIC ACID 500 MG TAB PO SCH (08:17)
[2018-12-28] MEDS: LISINOPRIL 5 MG TAB PO SCH (08:17)
[2018-12-28] MEDS: LACTOBACILLUS RHAMNOSUS CAP PO SCH ×2 (08:17→20:15)
[2018-12-28] MEDS: INSULIN GLARGINE [LANTus] (100 UNITS/ML) SYG SC SCH (08:19)
[2018-12-28] MEDS: HEPARIN 5,000 UNIT/1 ML VIAL SC SCH ×2 (08:19→20:16)
[2018-12-28] MEDS: INSULIN ASPART [NOVOLOG] 3 ML PEN SC SCH ×7 (08:20→20:46)
[2018-12-28] MEDS: ERGOCALCIFEROL 50,000 UNIT CAP PO SCH (09:00)
--- NOTE | 2018-12-28 11:02 | CONS ---
Assessment/Plan Assessment/Plan Hospital Course (Demo Recall) Subjective No acute events. No CV complaints. Medications and allergies reviewed Past medical, surgical, family and social history reviewed. Objective General: WD/WN, NAD, thin HEENT: NC/AT, PERRLA, dry mucus membranes CV: RRR, grade 1/6 systolic murmur, S1/S2, no S3/S4, no JVD, no carotid bruits Respiratory: CTAB, no W/C/R, non-labored breathing GI: abdomen soft, NT/ND, normoactive bowel sounds Vascular: extremities are warm, 2+ radial/DT/PT pulses bilaterally, no edema Assessment & Plan IMPRESSION: 1. Preoperative evaluation prior to possible need for peripheral revascularization surgery.-neg trop x 3 and NL EF by echo with no sig valve abnl. Echo repeat 11/13 with NL EF 2. Peripheral arterial disease with nonhealing gangrenous changes in left toe ulceration. 3. Hypertension-now tolerating low dose ACEI but with very labile overall 4. Dyslipidemia. 5. Diabetes mellitus. 6. s/p cardiopulmonary arrest 7. Bradycardic intermittent by tele-now resolved 8. Positive troponin after arrest-? secondary to or primary to arrest, likely secondary to arrest, type 2 demand infarct, as no significant uptrend and now downtrended to negative 9. Resp failure-s/p extubation 10. CVA-Acute by MRI 11.Groin wound now post-op s/p groin exploration/ligation of leaking lymphatics with placement of VAC 12. Loose stools Recc: -Now on med-surg -Continue asa/plavix/statin for cva -serial ecg's -s/p abx course, f/u bld cx's and exam -local wound care -follow volume status closely on daily PO lasix -follow MS closely -Continue now zestril mononotherapy at reduced dose as tolerated and follow marginal BP closely -metformin held, follow BS clsoely Consultation Date/Type/Reason Admit Date/Time Nov 04, 2018 at 07:34 Initial Consult Date 11/11/18 Type of Consult Cardiology Requesting Provider: KARL WOOD MD Date/Time of Note DATE: 12/28/18 TIME: 11:01 Exam/Review of Systems Vital Signs Vitals Vital Signs Date Temp Pulse Resp B/P (MAP) Pulse Ox O2 O2 Flow FiO2 Time Delivery Rate 12/28/18 98.4 83 16 106/53 96 Room Air 07:21 (70) Intake and Output 12/27/18 12/27/18 12/28/18 1515:00 23:00 07:00 IntakeIntake Total 1000 ml OutputOutput Total 0 ml 0 ml BalanceBalance 0 ml 1000 ml Labs Results 24hrs Laboratory Tests Test 12/27/18 11:56 12/27/18 17:18 12/27/18 21:24 12/28/18 08:02 Bedside Glucose 115 183 178 190 Medications Medications Current Medications Ergocalciferol (Drisdol) 50,000 unit Sa PO Last administered on 12/21/18 10:49; Admin Dose 50,000 UNIT; Start 11/09/18 at 09:00 Clonidine (Catapres) 0.1 mg Q6H PRN PO SBP>160 Last administered on 12/27/18at 01:58; Admin Dose 0.1 MG; Start 11/04/18 at 09:00 IV Flush (NS 3 ml) 3 ml PER PROTOCOL IV ; Start 11/04/18 at 09:00 Ondansetron HCl (Zofran Inj) 4 mg Q6H PRN IV NAUSEA/VOMITING Last administered on 12/15/18at 16:52; Admin Dose 4 MG; Start 11/04/18 at 09:00 Acetaminophen (Tylenol Tab) 650 mg Q6H PRN PO .PAIN 1-3 OR TEMP Last administered on 12/14/18at 00:29; Admin Dose 650 MG; Start 11/04/18 at 09:00 Miscellaneous Information 1 ea NOTE XX ; Start 11/04/18 at 09:00 Glucose (Glutose) 15 gm Q15M PRN PO DECREASED GLUCOSE Last administered on 12/17/18at 06:56; Admin Dose 15 GM; Start 11/04/18 at 09:00 Glucose (Glutose) 22.5 gm Q15M PRN PO DECREASED GLUCOSE; Start 11/04/18 at 09:0 0 Dextrose (D50w Syringe) 25 ml Q15M PRN IV DECREASED GLUCOSE; Start 11/04/18 at 09:00 Dextrose (D50w Syringe) 50 ml Q15M PRN IV DECREASED GLUCOSE; Start 11/04/18 at 09:00 Glucagon (Glucagen) 1 mg Q15M PRN IM DECREASED GLUCOSE; Start 11/04/18 at 09:00 Glucose (Glutose) 15 gm Q15M PRN BUCCAL DECREASED GLUCOSE; Start 11/04/18 at 09:00 Miscellaneous Information Patients own medicat... BID@10,16 XX Last administered on 12/18/18 10:32; Admin Dose 1 EA; Start 11/04/18 at 16:00 Hydralazine HCl (Apresoline) 10 mg Q4H PRN IV sbp >160 Last administered on 12/24/18at 14:18; Admin Dose 10 MG; Start 11/08/18 at 09:00 Atropine Sulfate (Atropine) 0.5 mg PRN PRN IV SYMPTOMATIC BRADYCARDIA; Start 11/11/18 at 23:00 Heparin Sodium (Porcine) (Heparin (5000 Units/1ml)) 5,000 unit BID SC Last administered on 12/28/18 08:19; Admin Dose 5,000 UNIT; Start 11/14/18 at 21:00 Bisacodyl (Dulcolax Supp) 10 mg DAILY PRN [place] CONSTIPATION Last administered on 11/14/18at 16:43; Admin Dose 10 MG; Start 11/14/18 at 16:30 IV Flush (NS 10 ml) 10 ml PRN PRN IV FLUSH LINE; Start 11/15/18 at 15:30 Gabapentin (Neurontin Liquid) 300 mg BID PO Last administered on 12/28/18 08:16; Admin Dose 300 MG; Start 11/18/18 at 21:00 Ascorbic Acid (Vitamin C) 500 mg DAILY PO Last administered on 12/28/18at 08:17; Admin Dose 500 MG; Start 11/20/18 at 09:00 Zinc Sulfate (Zinc Sulfate) 220 mg DAILY PO Last administered on 12/28/18at 0 8:16; Admin Dose 220 MG; Start 11/20/18 at 09:00 Atorvastatin Calcium (Lipitor) 80 mg QHS PO Last administered on 12/27/18 21:25 ; Admin Dose 80 MG; Start 11/19/18 at 21:00 Lorazepam (Ativan) 0.5 mg Q6H PRN IV anxiety/agitation Last administered on 11/22/18 19:32; Admin Dose 0.5 MG; Start 11/22/18 at 11:00 Clopidogrel Bisulfate (plaVIX) 75 mg DAILY PO Last administered on 12/28/18 08:17; Admin Dose 75 MG; Start 11/23/18 at 09:00 Haloperidol (Haldol) 5 mg Q12H PRN IM agitation Last administered on 11/22/18 1 9:44; Admin Dose 5 MG; Start 11/22/18 at 14:30 Quetiapine Fumarate (Seroquel) 25 mg QHS PO Last administered on 12/27/18 21:25; Admin Dose 25 MG; Start 11/26/18 at 21:00 Polyethylene Glycol (Miralax) 17 gm DAILY PRN PO constipation Last administered on 12/06/18 06:10; Admin Dose 17 GM; Start 11/29/18 at 08:02 Aspirin (Aspirin) 81 mg DAILY PO Last administered on 12/28/18 08:17; Admin Dose 81 MG; Start 11/29/18 at 09:00 Famotidine (Pepcid) 20 mg DAILY PO Last administered on 12/28/18 08:16; Admin Dose 20 MG; Start 11/29/18 at 09:00 Senna/Docusate Sodium (Senokot-S) 1 tab BID PRN PO constipation Last administered on 12/27/18 08:21; Admin Dose 1 TAB; Start 11/29/18 at 08:30 Lisinopril (Zestril) 2.5 mg DAILY PO Last administered on 12/27/18 08:23; Admin Dose 2.5 MG; Start 12/03/18 at 09:00 Furosemide (Lasix) 20 mg DAILY@0600 PO Last administered on 12/28/18 05:52; Admin Dose 20 MG; Start 12/04/18 at 10:30 Insulin Aspart (Novolog Insulin Pen) NOVOLOG *MODERATE* ALGORITHM WITH MEALS BEDTIME SC Last administered on 12/28/18 08:21; Admin Dose 4 UNIT; Start 12/08/18 at 21:00 Simethicone (Mylicon) 80 mg Q6H PRN PO DISTENSION/GAS/BLOATING; Start 12/13/18 at 17:30 Tramadol HCl (Ultram) 50 mg Q6H PRN PO MODERATE PAIN LEVEL 4-6 Last administered on 12/26/18 21:04; Admin Dose 50 MG; Start 12/14/18 at 17:00 Lactobacillus Acidophilus/ Rhamnosus (Culturelle) 1 cap BID PO Last administered on 12/28/18at 08:17; Admin Dose 1 CAP; Start 12/15/18 at 23:30 Loperamide HCl (Imodium Cap) 2 mg Q6H PRN PO DIARRHEA; Start 12/17/18 at 15:00 Insulin Aspart (Novolog Insulin Pen) 6 unit WITH MEALS SC Last administered on 12/28/18at 08:20; Admin Dose 6 UNIT; Start 12/26/18 at 11:30 Insulin Glargine (Lantus) 45 units DAILY@0800 SC Last administered on 12/28/18at 08:19; Admin Dose 45 UNITS; Start 12/26/18 at 10:00 ZOHREH WONG DO Dec 28, 2018 11:02
--- NOTE | 2018-12-28 12:13 | PN ---
Date/Time of Note Date/Time of Note DATE: 12/28/18 TIME: 12:10 Assessment/Plan VTE Prophylaxis Risk score (from Ns)>0 risk: 3 SCD applied (from Ns): No SCD contraindicated: low risk/ambulating Pharmacological prophylaxis: NA/contraindicated Pharm contraindication: low risk/ambulating Lines/Catheters IV [facility]from [facility] Urinary Cath still in place: No Assessment/Plan Assessment/Plan 1. Drainage from surgical site and groin area- stable - continue wound vac with dressing changes twice a week - s/p surgical exploration the ground surgical site, graft did not need to be replaced, lymph drainage cleaned up by vascular surgeon - completed course of IV antibiotics. appreciate ID consultation 2. 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 no further procedures scheduled at this time. will need to follow up as outpatient 3. Left frontal CVA- stable - no neurology deficits appreciated - Neurology consultation appreciated - continue on aspirin and Plavix and statin 4. left-sided internal carotid artery stenosis - 25% per CT angiogram, continue aspirin, statin, Plavix per vascular surgeon 5. h/o Cardiac arrest s/p ROSC - Cardiology on board and appreciate recommendations - ECHO with preserved EF 6. Severe peripheral vascular disease - s/p left femoral endarterectomy, iliofemoral bypass and femoral to posterior tibial bypass done on November 08, 2018 - Vascular surgery consultation appreciated. Continue aspirin and Plavix 7. Diabetes Mellitus - A1c noted - metformin dc'd due to intolerance 8. Acute kidney injury- resolved - nephrology consultation appreciated 9. Essential HTN - Continue home medications at this time as tolerated 10. Peripheral neuropathy - cont. gabapentin 11. HLD - On statin 12. Chronic anemia - Stable H&H. Monitor - no need for transfusions at this time 13. Disposition - on board for SNF placement - weaning off seroquel since back to baseline and no signs of hospital delirium Results 24hrs Laboratory Tests Test 12/27/18 17:18 12/27/18 21:24 12/28/18 08:02 Bedside Glucose 183 178 190 Subjective 24 Hr Interval Summary Free Text/Dictation Patient doing well and denies any new issues. Pain controlled well. ambulating with walker Exam/Review of Systems Exam Vitals Vital Signs Date Temp Pulse Resp B/P (MAP) Pulse Ox O2 O2 Flow FiO2 Time Delivery Rate 12/28/18 98.4 83 16 106/53 96 Room Air 07:21 (70) Intake and Output 12/27/18 12/27/18 12/28/18 1515:00 23:00 07:00 IntakeIntake Total 1000 ml OutputOutput Total 0 ml 0 ml BalanceBalance 0 ml 1000 ml Exam General: Patient is laying in bed. no acute distress Neck: Supple, nontender, midline Respiratory: Diminished. no wheezing or rhonchi Cardiovascular: regular rate and rhythm, no obvious murmurs Gastrointestinal: soft, non-tender to palpation, bowel sounds heard. Skin: No new skin lesions, surgical site bandaged, CDI Results Results 24hrs Laboratory Tests Test 12/27/18 17:18 12/27/18 21:24 12/28/18 08:02 Bedside Glucose 183 178 190 Medications Medication Current Medications Ergocalciferol (Drisdol) 50,000 unit Sa PO Last administered on 12/21/18at 10:49; Admin Dose 50,000 UNIT; Start 11/09/18 at 09:00 Clonidine (Catapres) 0.1 mg Q6H PRN PO SBP>160 Last administered on 12/27/18at 01:58; Admin Dose 0.1 MG; Start 11/04/18 at 09:00 IV Flush (NS 3 ml) 3 ml PER PROTOCOL IV ; Start 11/04/18 at 09:00 Ondansetron HCl (Zofran Inj) 4 mg Q6H PRN IV NAUSEA/VOMITING Last administered on 12/15/18at 16:52; Admin Dose 4 MG; Start 11/04/18 at 09:00 Acetaminophen (Tylenol Tab) 650 mg Q6H PRN PO .PAIN 1-3 OR TEMP Last administered on 12/14/18at 00:29; Admin Dose 650 MG; Start 11/04/18 at 09:00 Miscellaneous Information 1 ea NOTE XX ; Start 11/04/18 at 09:00 Glucose (Glutose) 15 gm Q15M PRN PO DECREASED GLUCOSE Last administered on 12/17/18at 06:56; Admin Dose 15 GM; Start 11/04/18 at 09:00 Glucose (Glutose) 22.5 gm Q15M PRN PO DECREASED GLUCOSE; Start 11/04/18 at 09:00 Dextrose (D50w Syringe) 25 ml Q15M PRN IV DECREASED GLUCOSE; Start 11/04/18 at 09:00 Dextrose (D50w Syringe) 50 ml Q15M PRN IV DECREASED GLUCOSE; Start 11/04/18 at 09:00 Glucagon (Glucagen) 1 mg Q15M PRN IM DECREASED GLUCOSE; Start 11/04/18 at 09:00 Glucose (Glutose) 15 gm Q15M PRN BUCCAL DECREASED GLUCOSE; Start 11/04/18 at 09:00 Miscellaneous Information Patients own medicat... BID@10,16 XX Last administered on 12/18/18at 10:32; Admin Dose 1 EA; Start 11/04/18 at 16:00 Hydralazine HCl (Apresoline) 10 mg Q4H PRN IV sbp >160 Last administered on 12/24/18 14:18; Admin Dose 10 MG; Start 11/08/18 at 09:00 Atropine Sulfate (Atropine) 0.5 mg PRN PRN IV SYMPTOMATIC BRADYCARDIA; Start 11/11/18 at 23:00 Heparin Sodium (Porcine) (Heparin (5000 Units/1ml)) 5,000 unit BID SC Last administered on 12/28/18 08:19; Admin Dose 5,000 UNIT; Start 11/14/18 at 21:00 Bisacodyl (Dulcolax Supp) 10 mg DAILY PRN [place] CONSTIPATION Last administered on 11/14/18at 16:43; Admin Dose 10 MG; Start 11/14/18 at 16:30 IV Flush (NS 10 ml) 10 ml PRN PRN IV FLUSH LINE; Start 11/15/18 at 15:30 Gabapentin (Neurontin Liquid) 300 mg BID PO Last administered on 12/28/18 08:16; Admin Dose 300 MG; Start 11/18/18 at 21:00 Ascorbic Acid (Vitamin C) 500 mg DAILY PO Last administered on 12/28/18 08:17; Admin Dose 500 MG; Start 11/20/18 at 09:00 Zinc Sulfate (Zinc Sulfate) 220 mg DAILY PO Last administered on 12/28/18 08:16; Admin Dose 220 MG; Start 11/20/18 at 09:00 Atorvastatin Calcium (Lipitor) 80 mg QHS PO Last administered on 12/27/18at 21:25; Admin Dose 80 MG; Start 11/19/18 at 21:00 Lorazepam (Ativan) 0.5 mg Q6H PRN IV anxiety/agitation Last administered on 11/22/18 19:32; Admin Dose 0.5 MG; Start 11/22/18 at 11:00 Clopidogrel Bisulfate (plaVIX) 75 mg DAILY PO Last administered on 12/28/18 08:17; Admin Dose 75 MG; Start 11/23/18 at 09:00 Haloperidol (Haldol) 5 mg Q12H PRN IM agitation Last administered on 11/22/18 19:44; Admin Dose 5 MG; Start 11/22/18 at 14:30 Quetiapine Fumarate (Seroquel) 25 mg QHS PO Last administered on 12/27/18 21:25; Admin Dose 25 MG; Start 11/26/18 at 21:00 Polyethylene Glycol (Miralax) 17 gm DAILY PRN PO constipation Last administered on 12/06/18 06:10; Admin Dose 17 GM; Start 11/29/18 at 08:02 Aspirin (Aspirin) 81 mg DAILY PO Last administered on 12/28/18 08:17; Admin Dose 81 MG; Start 11/29/18 at 09:00 Famotidine (Pepcid) 20 mg DAILY PO Last administered on 12/28/18 08:16; Admin Dose 20 MG; Start 11/29/18 at 09:00 Senna/Docusate Sodium (Senokot-S) 1 tab BID PRN PO constipation Last administered on 12/27/18 08:21; Admin Dose 1 TAB; Start 11/29/18 at 08:30 Lisinopril (Zestril) 2.5 mg DAILY PO Last administered on 12/27/18 08:23; Admin Dose 2.5 MG; Start 12/03/18 at 09:00 Furosemide (Lasix) 20 mg DAILY@0600 PO Last administered on 12/28/18 05:52; Admin Dose 20 MG; Start 12/04/18 at 10:30 Insulin Aspart (Novolog Insulin Pen) NOVOLOG *MODERATE* ALGORITHM WITH MEALS BEDTIME SC Last administered on 12/28/18 08:21; Admin Dose 4 UNIT; Start 12/08/18 at 21:00 Simethicone (Mylicon) 80 mg Q6H PRN PO DISTENSION/GAS/BLOATING; Start 12/13/18 at 17:30 Tramadol HCl (Ultram) 50 mg Q6H PRN PO MODERATE PAIN LEVEL 4-6 Last administered on 12/26/18at 21:04; Admin Dose 50 MG; Start 12/14/18 at 17:00 Lactobacillus Acidophilus/ Rhamnosus (Culturelle) 1 cap BID PO Last administered on 12/28/18 08:17; Admin Dose 1 CAP; Start 12/15/18 at 23:30 Loperamide HCl (Imodium Cap) 2 mg Q6H PRN PO DIARRHEA; Start 12/17/18 at 15:00 Insulin Aspart (Novolog Insulin Pen) 6 unit WITH MEALS SC Last administered on 12/28/18 08:20; Admin Dose 6 UNIT; Start 12/26/18 at 11:30 Insulin Glargine (Lantus) 45 units DAILY@0800 SC Last administered on 12/28/18 08:19; Admin Dose 45 UNITS; Start 12/26/18 at 10:00 KARL WOOD MD Dec 28, 2018 12:13
[2018-12-28 14:27] VITALS: BP 132/66; PULSE 91; RESP 16
[2018-12-28] MEDS: traMADol 50 MG TAB PO PRN (19:46)
[2018-12-28 20:00] VITALS: BP 177/88; PULSE 97; RESP 17
[2018-12-28 20:09] VITALS: BP 168/73; PULSE 95
[2018-12-28] MEDS: QUETIAPINE 25 MG TAB PO SCH (20:15)
[2018-12-28] MEDS: ATORVASTATIN 80 MG TAB PO SCH (20:15)
[2018-12-28] MEDS: hydrALAzine 20 MG INJ IV PRN (20:15)
[2018-12-28 21:15] VITALS: BP 109/54; PULSE 90
[2018-12-29 03:20] VITALS: BP 104/58; PULSE 93; RESP 17
[2018-12-29] MEDS: FUROSEMIDE 20 MG TAB PO SCH (05:51)
[2018-12-29 07:21] VITALS: BP 115/58; PULSE 81; RESP 16
[2018-12-29] MEDS: INSULIN ASPART [NOVOLOG] 3 ML PEN SC SCH ×7 (08:00→20:36)
[2018-12-29] MEDS: CLOPIDOGREL 75 MG TAB PO SCH (08:15)
[2018-12-29] MEDS: ASPIRIN 81 MG TAB PO SCH (08:15)
[2018-12-29] MEDS: FAMOTIDINE 20 MG TAB PO SCH (08:15)
[2018-12-29] MEDS: ZINC SULFATE 220 MG CAP PO SCH (08:15)
[2018-12-29] MEDS: ASCORBIC ACID 500 MG TAB PO SCH (08:15)
[2018-12-29] MEDS: LACTOBACILLUS RHAMNOSUS CAP PO SCH ×2 (08:15→20:31)
[2018-12-29] MEDS: LISINOPRIL 5 MG TAB PO SCH (08:16)
[2018-12-29] MEDS: INSULIN GLARGINE [LANTus] (100 UNITS/ML) SYG SC SCH (08:21)
[2018-12-29] MEDS: HEPARIN 5,000 UNIT/1 ML VIAL SC SCH ×2 (08:22→20:31)
[2018-12-29] MEDS: GABAPENTIN (50 MG/ML PO SYG) PO SCH (09:18)
--- NOTE | 2018-12-29 11:37 | CONS ---
Assessment/Plan Assessment/Plan Hospital Course (Demo Recall) Subjective No acute events. No CV complaints. Medications and allergies reviewed Past medical, surgical, family and social history reviewed. Objective General: WD/WN, NAD, thin HEENT: NC/AT, PERRLA, dry mucus membranes CV: RRR, grade 1/6 systolic murmur, S1/S2, no S3/S4, no JVD, no carotid bruits Respiratory: CTAB, no W/C/R, non-labored breathing GI: abdomen soft, NT/ND, normoactive bowel sounds Vascular: extremities are warm, 2+ radial/DT/PT pulses bilaterally, no edema Assessment & Plan IMPRESSION: 1. Preoperative evaluation prior to possible need for peripheral revascularization surgery.-neg trop x 3 and NL EF by echo with no sig valve abnl. Echo repeat 11/13 with NL EF 2. Peripheral arterial disease with nonhealing gangrenous changes in left toe ulceration. 3. Hypertension-now tolerating low dose ACEI but with very labile overall 4. Dyslipidemia. 5. Diabetes mellitus. 6. s/p cardiopulmonary arrest 7. Bradycardic intermittent by tele-now resolved 8. Positive troponin after arrest-? secondary to or primary to arrest, likely secondary to arrest, type 2 demand infarct, as no significant uptrend and now downtrended to negative 9. Resp failure-s/p extubation 10. CVA-Acute by MRI 11.Groin wound now post-op s/p groin exploration/ligation of leaking lymphatics with placement of VAC 12. Loose stools Recc: - last labs on 12/23, repeat CMP, Mag -Continue asa/plavix/statin for cva -serial ecg's -s/p abx course, f/u bld cx's and exam -local wound care -follow volume status closely on daily PO lasix -follow MS closely -Continue now zestril mononotherapy at reduced dose as tolerated and follow marginal BP closely, hydralazine prn -metformin held, follow BS clsoely Consultation Date/Type/Reason Admit Date/Time Nov 04, 2018 at 07:34 Initial Consult Date 11/11/18 Type of Consult Cardiology Requesting Provider: KARL WOOD MD Date/Time of Note DATE: 12/29/18 TIME: 11:34 Exam/Review of Systems Vital Signs Vitals Vital Signs Date Temp Pulse Resp B/P (MAP) Pulse Ox O2 O2 Flow FiO2 Time Delivery Rate 12/29/18 98.0 81 16 115/58 97 Room Air 07:21 (77) Intake and Output 12/28/18 12/28/18 12/29/18 1515:00 23:00 07:00 IntakeIntake Total 700 ml 960 ml OutputOutput Total 0 ml 0 ml 50 ml BalanceBalance 700 ml 0 ml 910 ml Labs Results 24hrs Laboratory Tests Test 12/28/18 12:25 12/28/18 17:13 12/28/18 20:42 12/28/18 21:31 Bedside Glucose 225 H 145 220 203 Test 12/29/18 08:14 Bedside Glucose 125 Medications Medications Current Medications Ergocalciferol (Drisdol) 50,000 unit Sa PO Last administered on 12/21/18 10:49; Admin Dose 50,000 UNIT; Start 11/09/18 at 09:00 Clonidine (Catapres) 0.1 mg Q6H PRN PO SBP>160 Last administered on 12/27/18at 01:58; Admin Dose 0.1 MG; Start 11/04/18 at 09:00 IV Flush (NS 3 ml) 3 ml PER PROTOCOL IV ; Start 11/04/18 at 09:00 Ondansetron HCl (Zofran Inj) 4 mg Q6H PRN IV NAUSEA/VOMITING Last administered on 12/15/18at 16:52; Admin Dose 4 MG; Start 11/04/18 at 09:00 Acetaminophen (Tylenol Tab) 650 mg Q6H PRN PO .PAIN 1-3 OR TEMP Last administered on 12/14/18at 00:29; Admin Dose 650 MG; Start 11/04/18 at 09:00 Miscellaneous Information 1 ea NOTE XX ; Start 11/04/18 at 09:00 Glucose (Glutose) 15 gm Q15M PRN PO DECREASED GLUCOSE Last administered on 12/17/18at 06:56; Admin Dose 15 GM; Start 11/04/18 at 09:00 Glucose (Glutose) 22.5 gm Q15M PRN PO DECREASED GLUCOSE; Start 11/04/18 at 09:00 Dextrose (D50w Syringe) 25 ml Q15M PRN IV DECREASED GLUCOSE; Start 11/04/18 at 09:00 Dextrose (D50w Syringe) 50 ml Q15M PRN IV DECREASED GLUCOSE; Start 11/04/18 at 09:00 Glucagon (Glucagen) 1 mg Q15M PRN IM DECREASED GLUCOSE; Start 11/04/18 at 09:00 Glucose (Glutose) 15 gm Q15M PRN BUCCAL DECREASED GLUCOSE; Start 11/04/18 at 09:00 Miscellaneous Information Patients own medicat... BID@10,16 XX Last administered on 12/18/18at 10:32; Admin Dose 1 EA; Start 11/04/18 at 16:00 Hydralazine HCl (Apresoline) 10 mg Q4H PRN IV sbp >160 Last administered on 12/28/18 20:15; Admin Dose 10 MG; Start 11/08/18 at 09:00 Atropine Sulfate (Atropine) 0.5 mg PRN PRN IV SYMPTOMATIC BRADYCARDIA; Start 11/11/18 at 23:00 Heparin Sodium (Porcine) (Heparin (5000 Units/1ml)) 5,000 unit BID SC Last administered on 12/29/18at 08:22; Admin Dose 5,000 UNIT; Start 11/14/18 at 21:00 Bisacodyl (Dulcolax Supp) 10 mg DAILY PRN [place] CONSTIPATION Last administered on 11/14/18at 16:43; Admin Dose 10 MG; Start 11/14/18 at 16:30 IV Flush (NS 10 ml) 10 ml PRN PRN IV FLUSH LINE; Start 11/15/18 at 15:30 Gabapentin (Neurontin Liquid) 300 mg BID PO Last administered on 12/29/18at 09:18; Admin Dose 300 MG; Start 11/18/18 at 21:00 Ascorbic Acid (Vitamin C) 500 mg DAILY PO Last administered on 12/29/18 08:15; Admin Dose 500 MG; Start 11/20/18 at 09:00 Zinc Sulfate (Zinc Sulfate) 220 mg DAILY PO Last administered on 12/29/18 08:15; Admin Dose 220 MG; Start 11/20/18 at 09:00 Atorvastatin Calcium (Lipitor) 80 mg QHS PO Last administered on 12/28/18at 20:15; Admin Dose 80 MG; Start 11/19/18 at 21:00 Lorazepam (Ativan) 0.5 mg Q6H PRN IV anxiety/agitation Last administered on 11/22/18 19:32; Admin Dose 0.5 MG; Start 11/22/18 at 11:00 Clopidogrel Bisulfate (plaVIX) 75 mg DAILY PO Last administered on 12/29/18 08:15; Admin Dose 75 MG; Start 11/23/18 at 09:00 Haloperidol (Haldol) 5 mg Q12H PRN IM agitation Last administered on 11/22/18 19:44; Admin Dose 5 MG; Start 11/22/18 at 14:30 Polyethylene Glycol (Miralax) 17 gm DAILY PRN PO constipation Last administered on 12/06/18 06:10; Admin Dose 17 GM; Start 11/29/18 at 08:02 Aspirin (Aspirin) 81 mg DAILY PO Last administered on 12/29/18 08:15; Admin Dose 81 MG; Start 11/29/18 at 09:00 Famotidine (Pepcid) 20 mg DAILY PO Last administered on 12/29/18 08:15; Admin Dose 20 MG; Start 11/29/18 at 09:00 Senna/Docusate Sodium (Senokot-S) 1 tab BID PRN PO constipation Last administered on 12/27/18 08:21; Admin Dose 1 TAB; Start 11/29/18 at 08:30 Lisinopril (Zestril) 2.5 mg DAILY PO Last administered on 12/29/18 08:16; Admin Dose 2.5 MG; Start 12/03/18 at 09:00 Furosemide (Lasix) 20 mg DAILY@0600 PO Last administered on 12/29/18 05:51; Admin Dose 20 MG; Start 12/04/18 at 10:30 Insulin Aspart (Novolog Insulin Pen) NOVOLOG *MODERATE* ALGORITHM WITH MEALS BEDTIME SC Last administered on 12/28/18 20:46; Admin Dose 1 UNIT; Start 12/08/18 at 21:00 Simethicone (Mylicon) 80 mg Q6H PRN PO DISTENSION/GAS/BLOATING; Start 12/13/18 at 17:30 Tramadol HCl (Ultram) 50 mg Q6H PRN PO MODERATE PAIN LEVEL 4-6 Last administered on 12/28/18 19:46; Admin Dose 50 MG; Start 12/14/18 at 17:00 Lactobacillus Acidophilus/ Rhamnosus (Culturelle) 1 cap BID PO Last administered on 12/29/18 08:15; Admin Dose 1 CAP; Start 12/15/18 at 23:30 Loperamide HCl (Imodium Cap) 2 mg Q6H PRN PO DIARRHEA; Start 12/17/18 at 15:00 Insulin Aspart (Novolog Insulin Pen) 6 unit WITH MEALS SC Last administered on 12/29/18 08:22; Admin Dose 6 UNIT; Start 12/26/18 at 11:30 Insulin Glargine (Lantus) 45 units DAILY@0800 SC Last administered on 12/29/18 08:21; Admin Dose 45 UNITS; Start 12/26/18 at 10:00 Quetiapine Fumarate (Seroquel) 12.5 mg QHS PO Last administered on 12/28/18 20:15; Admin Dose 12.5 MG; Start 12/28/18 at 21:00 ZOHREH WONG DO Dec 29, 2018 11:37
--- NOTE | 2018-12-29 11:45 | PN ---
Date/Time of Note Date/Time of Note DATE: 12/29/18 TIME: 11:43 Assessment/Plan VTE Prophylaxis Risk score (from Ns)>0 risk: 4 SCD applied (from Ns): No SCD contraindicated: low risk/ambulating Pharmacological prophylaxis: NA/contraindicated Pharm contraindication: low risk/ambulating Lines/Catheters IV [facility] Type (from [facility] Urinary Cath still in place: No Assessment/Plan Assessment/Plan 1. Drainage from surgical site and groin area- stable - continue wound vac with dressing changes twice a week - s/p surgical exploration the ground surgical site, graft did not need to be replaced, lymph drainage cleaned up by vascular surgeon - completed course of IV antibiotics. appreciate ID consultation 2. 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 no further procedures scheduled at this time. will need to follow up as outpatient 3. Left frontal CVA- stable - Neurology consultation appreciated - continue on aspirin and Plavix and statin 4. left-sided internal carotid artery stenosis - 25% per CT angiogram, continue aspirin, statin, Plavix per vascular surgeon 5. h/o Cardiac arrest s/p ROSC - Cardiology on board and appreciate recommendations - ECHO with preserved EF 6. Severe peripheral vascular disease - s/p left femoral endarterectomy, iliofemoral bypass and femoral to posterior tibial bypass done on November 08, 2018 - Vascular surgery consultation appreciated. Continue aspirin and Plavix 7. Diabetes Mellitus - A1c noted - metformin dc'd due to intolerance 8. Acute kidney injury- resolved - nephrology consultation appreciated 9. Essential HTN - Continue home medications at this time as tolerated 10. Peripheral neuropathy - cont. gabapentin 11. HLD - On statin 12. Chronic anemia - Stable H&H. Monitor - no need for transfusions at this time 13. Disposition - on board for SNF placement since per son, unable to manage at home if requiring both FWW and wound vac - weaning off Seroquel since back to baseline and no signs of hospital delirium Results 24hrs Laboratory Tests Test 12/28/18 12:25 12/28/18 17:13 12/28/18 20:42 12/28/18 21:31 Bedside Glucose 225 H 145 220 203 Test 12/29/18 08:14 Bedside Glucose 125 Subjective 24 Hr Interval Summary Free Text/Dictation Patient is doing well and denies any acute issues. No overnight events. Exam/Review of Systems Exam Vitals Vital Signs Date Temp Pulse Resp B/P (MAP) Pulse Ox O2 O2 Flow FiO2 Time Delivery Rate 12/29/18 98.0 81 16 115/58 97 Room Air 07:21 (77) Intake and Output 12/28/18 12/28/18 12/29/18 1515:00 23:00 07:00 IntakeIntake Total 700 ml 960 ml OutputOutput Total 0 ml 0 ml 50 ml BalanceBalance 700 ml 0 ml 910 ml Exam General: Patient is laying in bed. no acute distress Neck: Supple, nontender, midline Respiratory: Diminished. no wheezing or rhonchi Cardiovascular: regular rate and rhythm, no obvious murmurs Gastrointestinal: soft, non-tender to palpation, bowel sounds heard. Skin: No new skin lesions, surgical site bandaged, CDI Results Results 24hrs Laboratory Tests Test 12/28/18 12:25 12/28/18 17:13 12/28/18 20:42 12/28/18 21:31 Bedside Glucose 225 H 145 220 203 Test 12/29/18 08:14 Bedside Glucose 125 Medications Medication Current Medications Ergocalciferol (Drisdol) 50,000 unit Sa PO Last administered on 12/21/18at 10:49; Admin Dose 50,000 UNIT; Start 11/09/18 at 09:00 Clonidine (Catapres) 0.1 mg Q6H PRN PO SBP>160 Last administered on 12/27/18at 01:58; Admin Dose 0.1 MG; Start 11/04/18 at 09:00 IV Flush (NS 3 ml) 3 ml PER PROTOCOL IV ; Start 11/04/18 at 09:00 Ondansetron HCl (Zofran Inj) 4 mg Q6H PRN IV NAUSEA/VOMITING Last administered on 12/15/18at 16:52; Admin Dose 4 MG; Start 11/04/18 at 09:00 Acetaminophen (Tylenol Tab) 650 mg Q6H PRN PO .PAIN 1-3 OR TEMP Last administered on 12/14/18at 00:29; Admin Dose 650 MG; Start 11/04/18 at 09:00 Miscellaneous Information 1 ea NOTE XX ; Start 11/04/18 at 09:00 Glucose (Glutose) 15 gm Q15M PRN PO DECREASED GLUCOSE Last administered on 12/17/18at 06:56; Admin Dose 15 GM; Start 11/04/18 at 09:00 Glucose (Glutose) 22.5 gm Q15M PRN PO DECREASED GLUCOSE; Start 11/04/18 at 09:00 Dextrose (D50w Syringe) 25 ml Q15M PRN IV DECREASED GLUCOSE; Start 11/04/18 at 09:00 Dextrose (D50w Syringe) 50 ml Q15M PRN IV DECREASED GLUCOSE; Start 11/04/18 at 09:00 Glucagon (Glucagen) 1 mg Q15M PRN IM DECREASED GLUCOSE; Start 11/04/18 at 09:00 Glucose (Glutose) 15 gm Q15M PRN BUCCAL DECREASED GLUCOSE; Start 11/04/18 at 09:00 Miscellaneous Information Patients own medicat... BID@10,16 XX Last administered on 12/18/18at 10:32; Admin Dose 1 EA; Start 11/04/18 at 16:00 Hydralazine HCl (Apresoline) 10 mg Q4H PRN IV sbp >160 Last administered on 12/28/18at 20:15; Admin Dose 10 MG; Start 11/08/18 at 09:00 Atropine Sulfate (Atropine) 0.5 mg PRN PRN IV SYMPTOMATIC BRADYCARDIA; Start 11/11/18 at 23:00 Heparin Sodium (Porcine) (Heparin (5000 Units/1ml)) 5,000 unit BID SC Last administered on 12/29/18at 08:22; Admin Dose 5,000 UNIT; Start 11/14/18 at 21:00 Bisacodyl (Dulcolax Supp) 10 mg DAILY PRN [place] CONSTIPATION Last administered on 11/14/18at 16:43; Admin Dose 10 MG; Start 11/14/18 at 16:30 IV Flush (NS 10 ml) 10 ml PRN PRN IV FLUSH LINE; Start 11/15/18 at 15:30 Gabapentin (Neurontin Liquid) 300 mg BID PO Last administered on 12/29/18at 09:18; Admin Dose 300 MG; Start 11/18/18 at 21:00 Ascorbic Acid (Vitamin C) 500 mg DAILY PO Last administered on 12/29/18at 08:15; Admin Dose 500 MG; Start 11/20/18 at 09:00 Zinc Sulfate (Zinc Sulfate) 220 mg DAILY PO Last administered on 12/29/18 08:15; Admin Dose 220 MG; Start 11/20/18 at 09:00 Atorvastatin Calcium (Lipitor) 80 mg QHS PO Last administered on 12/28/18 20:15; Admin Dose 80 MG; Start 11/19/18 at 21:00 Lorazepam (Ativan) 0.5 mg Q6H PRN IV anxiety/agitation Last administered on 11/22/18 19:32; Admin Dose 0.5 MG; Start 11/22/18 at 11:00 Clopidogrel Bisulfate (plaVIX) 75 mg DAILY PO Last administered on 12/29/18 08:15; Admin Dose 75 MG; Start 11/23/18 at 09:00 Haloperidol (Haldol) 5 mg Q12H PRN IM agitation Last administered on 11/22/18 19:44; Admin Dose 5 MG; Start 11/22/18 at 14:30 Polyethylene Glycol (Miralax) 17 gm DAILY PRN PO constipation Last administered on 12/06/18 06:10; Admin Dose 17 GM; Start 11/29/18 at 08:02 Aspirin (Aspirin) 81 mg DAILY PO Last administered on 12/29/18 08:15; Admin Dose 81 MG; Start 11/29/18 at 09:00 Famotidine (Pepcid) 20 mg DAILY PO Last administered on 12/29/18 08:15; Admin Dose 20 MG; Start 11/29/18 at 09:00 Senna/Docusate Sodium (Senokot-S) 1 tab BID PRN PO constipation Last administered on 12/27/18 08:21; Admin Dose 1 TAB; Start 11/29/18 at 08:30 Lisinopril (Zestril) 2.5 mg DAILY PO Last administered on 12/29/18 08:16; Admin Dose 2.5 MG; Start 12/03/18 at 09:00 Furosemide (Lasix) 20 mg DAILY@0600 PO Last administered on 12/29/18 05:51; Admin Dose 20 MG; Start 12/04/18 at 10:30 Insulin Aspart (Novolog Insulin Pen) NOVOLOG *MODERATE* ALGORITHM WITH MEALS BEDTIME SC Last administered on 12/28/18 20:46; Admin Dose 1 UNIT; Start 12/08/18 at 21:00 Simethicone (Mylicon) 80 mg Q6H PRN PO DISTENSION/GAS/BLOATING; Start 12/13/18 at 17:30 Tramadol HCl (Ultram) 50 mg Q6H PRN PO MODERATE PAIN LEVEL 4-6 Last administered on 12/28/18at 19:46; Admin Dose 50 MG; Start 12/14/18 at 17:00 Lactobacillus Acidophilus/ Rhamnosus (Culturelle) 1 cap BID PO Last administered on 12/29/18 08:15; Admin Dose 1 CAP; Start 12/15/18 at 23:30 Loperamide HCl (Imodium Cap) 2 mg Q6H PRN PO DIARRHEA; Start 12/17/18 at 15:00 Insulin Aspart (Novolog Insulin Pen) 6 unit WITH MEALS SC Last administered on 12/29/18 08:22; Admin Dose 6 UNIT; Start 12/26/18 at 11:30 Insulin Glargine (Lantus) 45 units DAILY@0800 SC Last administered on 12/29/18 08:21; Admin Dose 45 UNITS; Start 12/26/18 at 10:00 Quetiapine Fumarate (Seroquel) 12.5 mg QHS PO Last administered on 12/28/18 20:15; Admin Dose 12.5 MG; Start 12/28/18 at 21:00 KARL WOOD MD Dec 29, 2018 11:45
[2018-12-29 14:06] VITALS: BP 125/69; PULSE 86; RESP 16
[2018-12-29 20:00] VITALS: BP 157/72; PULSE 94; RESP 17
[2018-12-29] MEDS: QUETIAPINE 25 MG TAB PO SCH (20:31)
[2018-12-29] MEDS: ATORVASTATIN 80 MG TAB PO SCH (20:31)
[2018-12-29] MEDS: GABAPENTIN 300 MG/6 ML PO SCH (21:40)
[2018-12-30 02:00] VITALS: BP 105/55; PULSE 90; RESP 18
[2018-12-30] MEDS: traMADol 50 MG TAB PO PRN (06:11)
[2018-12-30] MEDS: FUROSEMIDE 20 MG TAB PO SCH (06:11)
[2018-12-30] MEDS: INSULIN ASPART [NOVOLOG] 3 ML PEN SC SCH ×7 (08:00→20:52)
[2018-12-30] MEDS: INSULIN GLARGINE [LANTus] (100 UNITS/ML) SYG SC SCH (08:14)
[2018-12-30] MEDS: HEPARIN 5,000 UNIT/1 ML VIAL SC SCH ×2 (08:15→20:53)
[2018-12-30 08:17] VITALS: BP 83/53; PULSE 72; RESP 16
[2018-12-30] MEDS: ASCORBIC ACID 500 MG TAB PO SCH (08:19)
[2018-12-30] MEDS: CLOPIDOGREL 75 MG TAB PO SCH (08:19)
[2018-12-30] MEDS: GABAPENTIN 300 MG/6 ML PO SCH ×2 (08:19→20:50)
[2018-12-30] MEDS: LACTOBACILLUS RHAMNOSUS CAP PO SCH ×2 (08:19→22:54)
[2018-12-30] MEDS: ZINC SULFATE 220 MG CAP PO SCH (08:19)
[2018-12-30] MEDS: LISINOPRIL 5 MG TAB PO SCH (08:19)
[2018-12-30] MEDS: FAMOTIDINE 20 MG TAB PO SCH (08:19)
[2018-12-30] MEDS: ASPIRIN 81 MG TAB PO SCH (08:19)
--- NOTE | 2018-12-30 11:57 | PN ---
Date/Time of Note Date/Time of Note DATE: 12/30/18 TIME: 11:57 Objective Vitals Vital Signs Date Temp Pulse Resp B/P (MAP) Pulse Ox O2 O2 Flow FiO2 Time Delivery Rate 12/30/18 98.0 72 16 83/53 (63) 97 08:17 12/30/18 Room Air 02:00 Intake and Output 12/29/18 12/29/18 12/30/18 1515:00 23:00 07:00 IntakeIntake Total 550 ml 300 ml OutputOutput Total 10 ml BalanceBalance 550 ml 290 ml Results Result Diagram: 12/29/18 1213 Medications Medications Current Medications Ergocalciferol (Drisdol) 50,000 unit Sa PO Last administered on 12/21/18at 10:49; Admin Dose 50,000 UNIT; Start 11/09/18 at 09:00 Clonidine (Catapres) 0.1 mg Q6H PRN PO SBP>160 Last administered on 12/29/18at 2 0:32; Admin Dose 0.1 MG; Start 11/04/18 at 09:00 IV Flush (NS 3 ml) 3 ml PER PROTOCOL IV ; Start 11/04/18 at 09:00 Ondansetron HCl (Zofran Inj) 4 mg Q6H PRN IV NAUSEA/VOMITING Last administered on 12/15/18at 16:52; Admin Dose 4 MG; Start 11/04/18 at 09:00 Acetaminophen (Tylenol Tab) 650 mg Q6H PRN PO .PAIN 1-3 OR TEMP Last administered on 12/14/18at 00:29; Admin Dose 650 MG; Start 11/04/18 at 09:00 Miscellaneous Information 1 ea NOTE XX ; Start 11/04/18 at 09:00 Glucose (Glutose) 15 gm Q15M PRN PO DECREASED GLUCOSE Last administered on 12/17/18at 06:56; Admin Dose 15 GM; Start 11/04/18 at 09:00 Glucose (Glutose) 22.5 gm Q15M PRN PO DECREASED GLUCOSE; Start 11/04/18 at 09:00 Dextrose (D50w Syringe) 25 ml Q15M PRN IV DECREASED GLUCOSE; Start 11/04/18 at 09:00 Dextrose (D50w Syringe) 50 ml Q15M PRN IV DECREASED GLUCOSE; Start 11/04/18 at 09:00 Glucagon (Glucagen) 1 mg Q15M PRN IM DECREASED GLUCOSE; Start 11/04/18 at 09:00 Glucose (Glutose) 15 gm Q15M PRN BUCCAL DECREASED GLUCOSE; Start 11/04/18 at 09:00 Miscellaneous Information Patients own medicat... BID@10,16 XX Last administer ed on 12/18/18 10:32; Admin Dose 1 EA; Start 11/04/18 at 16:00 Hydralazine HCl (Apresoline) 10 mg Q4H PRN IV sbp >160 Last administered on 12/28/18 20:15; Admin Dose 10 MG; Start 11/08/18 at 09:00 Atropine Sulfate (Atropine) 0.5 mg PRN PRN IV SYMPTOMATIC BRADYCARDIA; Start 11/11/18 at 23:00 Heparin Sodium (Porcine) (Heparin (5000 Units/1ml)) 5,000 unit BID SC Last administered on 12/30/18 08:15; Admin Dose 5,000 UNIT; Start 11/14/18 at 21:00 Bisacodyl (Dulcolax Supp) 10 mg DAILY PRN [place] CONSTIPATION Last administered on 11/14/18 16:43; Admin Dose 10 MG; Start 11/14/18 at 16:30 IV Flush (NS 10 ml) 10 ml PRN PRN IV FLUSH LINE; Start 11/15/18 at 15:30 Ascorbic Acid (Vitamin C) 500 mg DAILY PO Last administered on 12/30/18 08:19; Admin Dose 500 MG; Start 11/20/18 at 09:00 Zinc Sulfate (Zinc Sulfate) 220 mg DAILY PO Last administered on 12/30/18 08:19; Admin Dose 220 MG; Start 11/20/18 at 09:00 Atorvastatin Calcium (Lipitor) 80 mg QHS PO Last administered on 12/29/18 20:31; Admin Dose 80 MG; Start 11/19/18 at 21:00 Lorazepam (Ativan) 0.5 mg Q6H PRN IV anxiety/agitation Last administered on 11/22/18 19:32; Admin Dose 0.5 MG; Start 11/22/18 at 11:00 Clopidogrel Bisulfate (plaVIX) 75 mg DAILY PO Last administered on 12/30/18 08:19; Admin Dose 75 MG; Start 11/23/18 at 09:00 Haloperidol (Haldol) 5 mg Q12H PRN IM agitation Last administered on 11/22/18 19:44; Admin Dose 5 MG; Start 11/22/18 at 14:30 Polyethylene Glycol (Miralax) 17 gm DAILY PRN PO constipation Last administered on 12/06/18 06:10; Admin Dose 17 GM; Start 11/29/18 at 08:02 Aspirin (Aspirin) 81 mg DAILY PO Last administered on 12/30/18 08:19; Admin Dose 81 MG; Start 11/29/18 at 09:00 Famotidine (Pepcid) 20 mg DAILY PO Last administered on 12/30/18 08:19; Admin Dose 20 MG; Start 11/29/18 at 09:00 Senna/Docusate Sodium (Senokot-S) 1 tab BID PRN PO constipation Last administered on 12/27/18 08:21; Admin Dose 1 TAB; Start 11/29/18 at 08:30 Lisinopril (Zestril) 2.5 mg DAILY PO Last administered on 12/29/18 08:16; Admin Dose 2.5 MG; Start 12/03/18 at 09:00 Furosemide (Lasix) 20 mg DAILY@0600 PO Last administered on 12/30/18 06:11; Admin Dose 20 MG; Start 12/04/18 at 10:30 Insulin Aspart (Novolog Insulin Pen) NOVOLOG *MODERATE* ALGORITHM WITH MEALS BEDTIME SC Last administered on 12/29/18 12:04; Admin Dose 4 UNIT; Start 12/08/18 at 21:00 Simethicone (Mylicon) 80 mg Q6H PRN PO DISTENSION/GAS/BLOATING; Start 12/13/18 at 17:30 Tramadol HCl (Ultram) 50 mg Q6H PRN PO MODERATE PAIN LEVEL 4-6 Last administered on 12/30/18 06:11; Admin Dose 50 MG; Start 12/14/18 at 17:00 Lactobacillus Acidophilus/ Rhamnosus (Culturelle) 1 cap BID PO Last administered on 12/30/18 08:19; Admin Dose 1 CAP; Start 12/15/18 at 23:30 Loperamide HCl (Imodium Cap) 2 mg Q6H PRN PO DIARRHEA; Start 12/17/18 at 15:00 Insulin Aspart (Novolog Insulin Pen) 6 unit WITH MEALS SC Last administered on 12/30/18at 08:15; Admin Dose 6 UNIT; Start 12/26/18 at 11:30 Insulin Glargine (Lantus) 45 units DAILY@0800 SC Last administered on 12/30/18at 08:14; Admin Dose 45 UNITS; Start 12/26/18 at 10:00 Quetiapine Fumarate (Seroquel) 12.5 mg QHS PO Last administered on 12/29/18at 20:31; Admin Dose 12.5 MG; Start 12/28/18 at 21:00 Gabapentin (Gabapentin) 300 mg BID PO Last administered on 12/30/18at 08:19; Admin Dose 300 MG; Start 12/29/18 at 21:00 VTE Pro[place]axis [place] [facility]: 4 [place]CD [place] [facility] No SCD contraindication: other Lines/Catheters IV Catheter Type: Vora in Place: No Assessment/Plan Hospital Course Subjective Patient doing well, no acute complaints Objective Physical exam General: Patient is laying in bed responding to questions appropriately Mentation: Patient is alert and oriented Head: Normocephalic atraumatic Eyes: EOMI, pupils reactive to light Neck: Supple, nontender, midline Respiratory: Coarse to auscultation bilaterally Cardiovascular: regular rate, no obvious murmurs Gastrointestinal: non-tender to palpation, bowel sounds heard. Neurological: Moves all extremities spontaneously Skin: No new skin lesions, surgical site bandaged, CDI Assessment/Plan 1. Drainage from surgical site and groin area- stable - continue wound vac with dressing changes twice a week - s/p surgical exploration the ground surgical site, graft did not need to be replaced, lymph drainage cleaned up by vascular surgeon - completed course of IV antibiotics. appreciate ID consultation 2. 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 no further procedures scheduled at this time. will need to follow up as outpatient 3. Left frontal CVA- stable - Neurology consultation appreciated - continue on aspirin and Plavix and statin 4. left-sided internal carotid artery stenosis - 25% per CT angiogram, continue aspirin, statin, Plavix per vascular surgeon 5. h/o Cardiac arrest s/p ROSC - Cardiology on board and appreciate recommendations - ECHO with preserved EF 6. Severe peripheral vascular disease - s/p left femoral endarterectomy, iliofemoral bypass and femoral to posterior tibial bypass done on November 08, 2018 - Vascular surgery consultation appreciated. Continue aspirin and Plavix 7. Diabetes Mellitus - A1c noted - metformin dc'd due to intolerance 8. Acute kidney injury- resolved - nephrology consultation appreciated 9. Essential HTN - Continue home medications at this time as tolerated 10. Peripheral neuropathy - cont. gabapentin 11. HLD - On statin 12. Chronic anemia - Stable H&H. Monitor - no need for transfusions at this time 13. Disposition - CM on board for SNF placement since per son, unable to manage at home if requiring both FWW and wound vac - weaning off Seroquel since back to baseline and no signs of hospital delirium FRANTZ SCHWAB Dec 30, 2018 11:57
--- NOTE | 2018-12-30 12:27 | CONS ---
Assessment/Plan Assessment/Plan Hospital Course (Demo Recall) IMPRESSION: 1. Preoperative evaluation prior to possible need for peripheral revascularization surgery.-neg trop x 3 and NL EF by echo with no sig valve abnl. Echo repeat 11/13 with NL EF 2. Peripheral arterial disease with nonhealing gangrenous changes in left toe ulceration. 3. Hypertension-now tolerating low dose ACEI but with very labile overall 4. Dyslipidemia. 5. Diabetes mellitus. 6. s/p cardiopulmonary arrest 7. Bradycardic intermittent by tele-now resolved 8. Positive troponin after arrest-? secondary to or primary to arrest, likely secondary to arrest, type 2 demand infarct, as no significant uptrend and now downtrended to negative 9. Resp failure-s/p extubation 10. CVA-Acute by MRI 11.Groin wound now post-op s/p groin exploration/ligation of leaking lymphatics with placement of VAC 12. Loose stools Recc: -Now on med-surg -Continue asa/plavix/statin for cva -serial ecg's -s/p abx course, f/u bld cx's and exam -local wound care -follow volume status closely on daily PO lasix -follow MS closely -Continue now zestril mononotherapy at reduced dose as tolerated and follow marginal BP closely Consultation Date/Type/Reason Admit Date/Time Nov 04, 2018 at 07:34 Initial Consult Date 11/06/18 Type of Consult Cardiology Reason for Consultation Hotn Requesting Provider: KARL WOOD MD Date/Time of Note DATE: 12/30/18 TIME: 12:26 Exam/Review of Systems Vital Signs Vitals Vital Signs Date Temp Pulse Resp B/P (MAP) Pulse Ox O2 O2 Flow FiO2 Time Delivery Rate 12/30/18 98.0 72 16 83/53 (63) 97 08:17 12/30/18 Room Air 02:00 Intake and Output 12/29/18 12/29/18 12/30/18 1515:00 23:00 07:00 IntakeIntake Total 550 ml 300 ml OutputOutput Total 10 ml BalanceBalance 550 ml 290 ml Exam Exam Review of Systems: CONSTITUTIONAL: No fevers, chills. PULMONARY: No sob CARDIOVASCULAR: No chest pain/palpitations GASTROINTESTINAL: No nausea/vomiting. GENITOURINARY: No hematuria/dysuria. MUSCULOSKELETAL: No myagias/arthalgias. PSYCHIATRIC: The patient denies depression. NEUROLOGIC: No weakness Constitutional: alert, oriented Psych: no complaints Head: normocephalic ENMT: mucosa pink and moist Neck: supple, jvd (9 cm water) Respiratory: clear to auscultation Cardiovascular: regular rate and rhythm Gastrointestinal: soft, non-tender Musculoskeletal: muscle weakness (mild generalized) Extremities: edema (none) Neurological: other (No focal deficits) Labs Result Diagram: 12/29/18 1213 Results 24hrs Laboratory Tests Test 12/29/18 17:03 12/29/18 20:26 12/30/18 08:01 12/30/18 11:56 Bedside Glucose 123 140 139 170 Medications Medications Current Medications Ergocalciferol (Drisdol) 50,000 unit Sa PO Last administered on 12/21/18 10:49; Admin Dose 50,000 UNIT; Start 11/09/18 at 09:00 Clonidine (Catapres) 0.1 mg Q6H PRN PO SBP>160 Last administered on 12/29/18at 20:32; Admin Dose 0.1 MG; Start 11/04/18 at 09:00 IV Flush (NS 3 ml) 3 ml PER PROTOCOL IV ; Start 11/04/18 at 09:00 Ondansetron HCl (Zofran Inj) 4 mg Q6H PRN IV NAUSEA/VOMITING Last administered on 12/15/18at 16:52; Admin Dose 4 MG; Start 11/04/18 at 09:00 Acetaminophen (Tylenol Tab) 650 mg Q6H PRN PO .PAIN 1-3 OR TEMP Last ad ministered on 12/14/18at 00:29; Admin Dose 650 MG; Start 11/04/18 at 09:00 Miscellaneous Information 1 ea NOTE XX ; Start 11/04/18 at 09:00 Glucose (Glutose) 15 gm Q15M PRN PO DECREASED GLUCOSE Last administered on 12/17/18at 06:56; Admin Dose 15 GM; Start 11/04/18 at 09:00 Glucose (Glutose) 22.5 gm Q15M PRN PO DECREASED GLUCOSE; Start 11/04/18 at 09:00 Dextrose (D50w Syringe) 25 ml Q15M PRN IV DECREASED GLUCOSE; Start 11/04/18 at 09:00 Dextrose (D50w Syringe) 50 ml Q15M PRN IV DECREASED GLUCOSE; Start 11/04/18 at 09:00 Glucagon (Glucagen) 1 mg Q15M PRN IM DECREASED GLUCOSE; Start 11/04/18 at 09:00 Glucose (Glutose) 15 gm Q15M PRN BUCCAL DECREASED GLUCOSE; Start 11/04/18 at 09:00 Miscellaneous Information Patients own medicat... BID@10,16 XX Last administered on 12/18/18 10:32; Admin Dose 1 EA; Start 11/04/18 at 16:00 Hydralazine HCl (Apresoline) 10 mg Q4H PRN IV sbp >160 Last administered on 12/28/18 20:15; Admin Dose 10 MG; Start 11/08/18 at 09:00 Atropine Sulfate (Atropine) 0.5 mg PRN PRN IV SYMPTOMATIC BRADYCARDIA; Start 11/11/18 at 23:00 Heparin Sodium (Porcine) (Heparin (5000 Units/1ml)) 5,000 unit BID SC Last administered on 12/30/18 08:15; Admin Dose 5,000 UNIT; Start 11/14/18 at 21:00 Bisacodyl (Dulcolax Supp) 10 mg DAILY PRN [place] CONSTIPATION Last administered on 11/14/18 16:43; Admin Dose 10 MG; Start 11/14/18 at 16:30 IV Flush (NS 10 ml) 10 ml PRN PRN IV FLUSH LINE; Start 11/15/18 at 15:30 Ascorbic Acid (Vitamin C) 500 mg DAILY PO Last administered on 12/30/18 08:19; Admin Dose 500 MG; Start 11/20/18 at 09:00 Zinc Sulfate (Zinc Sulfate) 220 mg DAILY PO Last administered on 12/30/18 08:19; Admin Dose 220 MG; Start 11/20/18 at 09:00 Atorvastatin Calcium (Lipitor) 80 mg QHS PO Last administered on 12/29/18 20:31; Admin Dose 80 MG; Start 11/19/18 at 21:00 Lorazepam (Ativan) 0.5 mg Q6H PRN IV anxiety/agitation Last administered on 11/22/18 19:32; Admin Dose 0.5 MG; Start 11/22/18 at 11:00 Clopidogrel Bisulfate (plaVIX) 75 mg DAILY PO Last administered on 12/30/18 08:19; Admin Dose 75 MG; Start 11/23/18 at 09:00 Haloperidol (Haldol) 5 mg Q12H PRN IM agitation Last administered on 11/22/18 19:44; Admin Dose 5 MG; Start 11/22/18 at 14:30 Polyethylene Glycol (Miralax) 17 gm DAILY PRN PO constipation Last administered on 12/06/18 06:10; Admin Dose 17 GM; Start 11/29/18 at 08:02 Aspirin (Aspirin) 81 mg DAILY PO Last administered on 12/30/18 08:19; Admin Dose 81 MG; Start 11/29/18 at 09:00 Famotidine (Pepcid) 20 mg DAILY PO Last administered on 12/30/18 08:19; Admin Dose 20 MG; Start 11/29/18 at 09:00 Senna/Docusate Sodium (Senokot-S) 1 tab BID PRN PO constipation Last administered on 12/27/18 08:21; Admin Dose 1 TAB; Start 11/29/18 at 08:30 Lisinopril (Zestril) 2.5 mg DAILY PO Last administered on 12/29/18 08:16; Admin Dose 2.5 MG; Start 12/03/18 at 09:00 Furosemide (Lasix) 20 mg DAILY@0600 PO Last administered on 12/30/18 06:11; Admin Dose 20 MG; Start 12/04/18 at 10:30 Insulin Aspart (Novolog Insulin Pen) NOVOLOG *MODERATE* ALGORITHM WITH MEALS BEDTIME SC Last administered on 12/30/18 12:01; Admin Dose 2 UNIT; Start 12/08/18 at 21:00 Simethicone (Mylicon) 80 mg Q6H PRN PO DISTENSION/GAS/BLOATING; Start 12/13/18 at 17:30 Tramadol HCl (Ultram) 50 mg Q6H PRN PO MODERATE PAIN LEVEL 4-6 Last administered on 12/30/18 06:11; Admin Dose 50 MG; Start 12/14/18 at 17:00 Lactobacillus Acidophilus/ Rhamnosus (Culturelle) 1 cap BID PO Last administered on 12/30/18 08:19; Admin Dose 1 CAP; Start 12/15/18 at 23:30 Loperamide HCl (Imodium Cap) 2 mg Q6H PRN PO DIARRHEA; Start 12/17/18 at 15:00 Insulin Aspart (Novolog Insulin Pen) 6 unit WITH MEALS SC Last administered on 12/30/18at 12:00; Admin Dose 6 UNIT; Start 12/26/18 at 11:30 Insulin Glargine (Lantus) 45 units DAILY@0800 SC Last administered on 12/30/18at 08:14; Admin Dose 45 UNITS; Start 12/26/18 at 10:00 Quetiapine Fumarate (Seroquel) 12.5 mg QHS PO Last administered on 12/29/18at 20:31; Admin Dose 12.5 MG; Start 12/28/18 at 21:00 Gabapentin (Gabapentin) 300 mg BID PO Last administered on 12/30/18at 08:19; Admin Dose 300 MG; Start 12/29/18 at 21:00 KLEVER HUNT Dec 30, 2018 12:27
[2018-12-30 14:15] VITALS: BP 99/54; PULSE 84; RESP 16
[2018-12-30 19:35] VITALS: BP 118/60; PULSE 97; RESP 18
[2018-12-30] MEDS: ATORVASTATIN 80 MG TAB PO SCH (20:50)
[2018-12-30] MEDS: QUETIAPINE 25 MG TAB PO SCH (20:50)
[2018-12-30] MEDS ORDERED: INSULIN ASPART [NOVOLOG] 3 ML PEN SC ONE ×2 (21:30→23:30)
[2018-12-30] MEDS ORDERED: ACCU-CHEK XX ONE (21:30)
[2018-12-31] VITALS (7 sets, daily range): BP systolic 86–169; BP diastolic 53–79; PULSE 84–108; RESP 18
[2018-12-31] MEDS ORDERED: ACCU-CHEK XX ONE (02:00)
[2018-12-31] MEDS: traMADol 50 MG TAB PO PRN ×2 (05:27→20:53)
[2018-12-31] MEDS: FUROSEMIDE 20 MG TAB PO SCH (06:00)
[2018-12-31] MEDS: INSULIN ASPART [NOVOLOG] 3 ML PEN SC SCH ×6 (07:59→20:51)
[2018-12-31] MEDS: HEPARIN 5,000 UNIT/1 ML VIAL SC SCH ×2 (08:00→20:52)
[2018-12-31] MEDS: INSULIN GLARGINE [LANTus] (100 UNITS/ML) SYG SC SCH (08:00)
[2018-12-31] MEDS: FAMOTIDINE 20 MG TAB PO SCH (08:01)
[2018-12-31] MEDS: LACTOBACILLUS RHAMNOSUS CAP PO SCH ×2 (08:01→20:50)
[2018-12-31] MEDS: GABAPENTIN 300 MG/6 ML PO SCH ×2 (08:01→20:50)
[2018-12-31] MEDS: ASCORBIC ACID 500 MG TAB PO SCH (08:01)
[2018-12-31] MEDS: ZINC SULFATE 220 MG CAP PO SCH (08:01)
[2018-12-31] MEDS: ASPIRIN 81 MG TAB PO SCH (08:01)
[2018-12-31] MEDS: CLOPIDOGREL 75 MG TAB PO SCH (08:01)
[2018-12-31] MEDS: LISINOPRIL 5 MG TAB PO SCH (08:01)
--- NOTE | 2018-12-31 10:37 | CONS ---
Consult Date/Type/Reason Admit Date/Time Nov 04, 2018 at 07:34 Initial Consult Date 11/11/18 Type of Consultation: Pulm Requesting Provider: KARL WOOD MD Date/Time of Note DATE: 12/31/18 TIME: 10:35 Subjective No acute events - pt comfortable - no CP now - in good fluid status. ROS: No fever, no chills, no nausea, no vomiting, no diarrhea/constipation - better looses tools now No recent weight changes No chest pain, no PND, no orthopnea No dizziness, blurred vision No thirst, no heat or cold intolerance Objective Vitals Vital Signs Date Temp Pulse Resp B/P (MAP) Pulse Ox O2 O2 Flow FiO2 Time Delivery Rate 12/31/18 98.2 88 18 108/63 96 Room Air 08:56 (78) Intake and Output 12/30/18 12/30/18 12/31/18 1515:00 23:00 07:00 IntakeIntake Total 1200 ml OutputOutput Total 0 ml 0 ml BalanceBalance 1200 ml 0 ml Exam General: WN/WD/NAD, AOx 3 HEENT: Unicetric/atraumatic/EOMI ( follows commands) NECK: JVD elevated, no thyromegaly Lymph: no lymphadenopathy HEART: regular with no S3, II/ systolic murmur at apex, PMI L LUNGS: Coarse sounds ABD: soft, NT, ND, +BS : Intact Neuro: non focal SKIN: chronic changes EXT: trace edema Results/Medications Result Diagram: 12/29/18 1213 Results 24 hrs Laboratory Tests Test 12/30/18 11:56 12/30/18 17:28 12/30/18 20:38 12/30/18 20:42 Bedside Glucose 170 217 366 H 353 H Test 12/30/18 21:44 12/30/18 22:51 12/31/18 01:46 12/31/18 07:55 Bedside Glucose 371 H 398 H 201 196 Home Meds Active Scripts Silver Sulfadiazine* (Silvadene*) 1% - 20 Gm Cream.gm., 1 APPLIC TOP DAILY, #1 TUB Prov:JESSIE WONG MD 06/12/18 Amoxicillin-Clavulanate K* (Augmentin*) 875 Mg Tab, 875 MG PO BID, #28 TAB Prov:AMANDA GOMEZ MD 06/08/14 Reported Medications Insulin Aspart (Novolog Mix (70/30)) 100 Units/Ml Soln, 28 SC with diinner, VIAL 11/04/18 Insulin Aspart (Novolog Mix (70/30)) 100 Units/Ml Soln, 38 SC WITH BREAKFAST, VIAL 11/04/18 Benazepril Hcl* (Benazepril Hcl*) 40 Mg Tablet, 40 MG PO DAILY, #30 TAB 11/04/18 Ergocalciferol (Vitamin D2) (VITAMIN D2) 50,000 Unit Capsule, 63205 UNIT PO weekly for saturdays, CAP 11/04/18 Omeprazole* (Omeprazole*) 20 Mg Capsule.dr, 20 MG PO DAILY, #30 CAP 11/04/18 Aspirin* (Aspirin* EC) 81 Mg Tablet.dr, 81 MG PO DAILY, TAB 11/04/18 Gabapentin* (Gabapentin*) 300 Mg Capsule, 300 MG PO BID, #60 CAP 11/04/18 Nebivolol Hcl* (Bystolic*) 20 Mg Tablet, 20 MG PO DAILY, #30 TAB 11/04/18 Atorvastatin Calcium* (Atorvastatin Calcium*) 20 Mg Tablet, 20 MG PO QHS, #30 TAB 11/04/18 Sulfasalazine (Azulfidine) 500 Mg Tab, 1000 MG PO TID, TAB 06/02/14 Medications Current Medications Ergocalciferol (Drisdol) 50,000 unit Sa PO Last administered on 12/21/18at 10:49; Admin Dose 50,000 UNIT; Start 11/09/18 at 09:00 Clonidine (Catapres) 0.1 mg Q6H PRN PO SBP>160 Last administered on 12/29/18at 20:32; Admin Dose 0.1 MG; Start 11/04/18 at 09:00 IV Flush (NS 3 ml) 3 ml PER PROTOCOL IV ; Start 11/04/18 at 09:00 Ondansetron HCl (Zofran Inj) 4 mg Q6H PRN IV NAUSEA/VOMITING Last administered on 12/15/18at 16:52; Admin Dose 4 MG; Start 11/04/18 at 09:00 Acetaminophen (Tylenol Tab) 650 mg Q6H PRN PO .PAIN 1-3 OR TEMP Last administered on 12/14/18at 00:29; Admin Dose 650 MG; Start 11/04/18 at 09:00 Miscellaneous Information 1 ea NOTE XX ; Start 11/04/18 at 09:00 Glucose (Glutose) 15 gm Q15M PRN PO DECREASED GLUCOSE Last administered on 12/17/18at 06:56; Admin Dose 15 GM; Start 11/04/18 at 09:00 Glucose (Glutose) 22.5 gm Q15M PRN PO DECREASED GLUCOSE; Start 11/04/18 at 09:00 Dextrose (D50w Syringe) 25 ml Q15M PRN IV DECREASED GLUCOSE; Start 11/04/18 at 09:00 Dextrose (D50w Syringe) 50 ml Q15M PRN IV DECREASED GLUCOSE; Start 11/04/18 at 09:00 Glucagon (Glucagen) 1 mg Q15M PRN IM DECREASED GLUCOSE; Start 11/04/18 at 09:00 Glucose (Glutose) 15 gm Q15M PRN BUCCAL DECREASED GLUCOSE; Start 11/04/18 at 09:00 Miscellaneous Information Patients own medicat... BID@,16 XX Last administered on 12/18/18at 10:32; Admin Dose 1 EA; Start 11/04/18 at 16:00 Hydralazine HCl (Apresoline) 10 mg Q4H PRN IV sbp >160 Last administered on 12/28/18at 20:15; Admin Dose 10 MG; Start 11/08/18 at 09:00 Atropine Sulfate (Atropine) 0.5 mg PRN PRN IV SYMPTOMATIC BRADYCARDIA; Start 11/11/18 at 23:00 Heparin Sodium (Porcine) (Heparin (5000 Units/1ml)) 5,000 unit BID SC Last administered on 12/31/18at 08:00; Admin Dose 5,000 UNIT; Start 11/14/18 at 21:00 Bisacodyl (Dulcolax Supp) 10 mg DAILY PRN [place] CONSTIPATION Last administered on 11/14/18at 16:43; Admin Dose 10 MG; Start 11/14/18 at 16:30 IV Flush (NS 10 ml) 10 ml PRN PRN IV FLUSH LINE; Start 11/15/18 at 15:30 Ascorbic Acid (Vitamin C) 500 mg DAILY PO Last administered on 12/31/18at 08:01; Admin Dose 500 MG; Start 11/20/18 at 09:00 Zinc Sulfate (Zinc Sulfate) 220 mg DAILY PO Last administered on 12/31/18 08:01; Admin Dose 220 MG; Start 11/20/18 at 09:00 Atorvastatin Calcium (Lipitor) 80 mg QHS PO Last administered on 12/30/18 20:50; Admin Dose 80 MG; Start 11/19/18 at 21:00 Lorazepam (Ativan) 0.5 mg Q6H PRN IV anxiety/agitation Last administered on 11/22/18 19:32; Admin Dose 0.5 MG; Start 11/22/18 at 11:00 Clopidogrel Bisulfate (plaVIX) 75 mg DAILY PO Last administered on 12/31/18 08:01; Admin Dose 75 MG; Start 11/23/18 at 09:00 Haloperidol (Haldol) 5 mg Q12H PRN IM agitation Last administered on 11/22/18 19:44; Admin Dose 5 MG; Start 11/22/18 at 14:30 Polyethylene Glycol (Miralax) 17 gm DAILY PRN PO constipation Last administered on 12/06/18 06:10; Admin Dose 17 GM; Start 11/29/18 at 08:02 Aspirin (Aspirin) 81 mg DAILY PO Last administered on 12/31/18 08:01; Admin Dose 81 MG; Start 11/29/18 at 09:00 Famotidine (Pepcid) 20 mg DAILY PO Last administered on 12/31/18 08:01; Admin Dose 20 MG; Start 11/29/18 at 09:00 Senna/Docusate Sodium (Senokot-S) 1 tab BID PRN PO constipation Last administered on 12/27/18 08:21; Admin Dose 1 TAB; Start 11/29/18 at 08:30 Lisinopril (Zestril) 2.5 mg DAILY PO Last administered on 12/29/18 08:16; Admin Dose 2.5 MG; Start 12/03/18 at 09:00 Furosemide (Lasix) 20 mg DAILY@0600 PO Last administered on 12/30/18 06:11; Admin Dose 20 MG; Start 12/04/18 at 10:30 Insulin Aspart (Novolog Insulin Pen) NOVOLOG *MODERATE* ALGORITHM WITH MEALS BEDTIME SC Last administered on 12/31/18 07:59; Admin Dose 4 UNIT; Start 12/08/18 at 21:00 Simethicone (Mylicon) 80 mg Q6H PRN PO DISTENSION/GAS/BLOATING; Start 12/13/18 at 17:30 Tramadol HCl (Ultram) 50 mg Q6H PRN PO MODERATE PAIN LEVEL 4-6 Last administered on 12/31/18 05:27; Admin Dose 50 MG; Start 12/14/18 at 17:00 Lactobacillus Acidophilus/ Rhamnosus (Culturelle) 1 cap BID PO Last admin istered on 12/31/18 08:01; Admin Dose 1 CAP; Start 12/15/18 at 23:30 Loperamide HCl (Imodium Cap) 2 mg Q6H PRN PO DIARRHEA; Start 12/17/18 at 15:00 Insulin Aspart (Novolog Insulin Pen) 6 unit WITH MEALS SC Last administered on 12/31/18 07:59; Admin Dose 6 UNIT; Start 12/26/18 at 11:30 Insulin Glargine (Lantus) 45 units DAILY@0800 SC Last administered on 12/31/18 08:00; Admin Dose 45 UNITS; Start 12/26/18 at 10:00 Quetiapine Fumarate (Seroquel) 12.5 mg QHS PO Last administered on 12/30/18 20:50; Admin Dose 12.5 MG; Start 12/28/18 at 21:00 Gabapentin (Gabapentin) 300 mg BID PO Last administered on 12/31/18 08:01; Admin Dose 300 MG; Start 12/29/18 at 21:00 Assessment/Plan Hospital Course (Demo Recall) 1. Preoperative evaluation prior to possible need for peripheral revascularization surgery.-neg trop x 3 and NL EF by echo with no sig valve abnl. Echo repeat 11/13 with NL EF - stable - no intervention planned 2. Peripheral arterial disease with nonhealing gangrenous changes in left toe ulceration.- improved with RX 3. Hypertension-now tolerating low dose ACEI but with very labile overall - on meds now 4. Dyslipidemia. 5. Diabetes mellitus - treated - will keep euglycemic. 6. s/p cardiopulmonary arrest 7. Bradycardic intermittent by tele-now resolved - no indication for pacer 8. Positive troponin after arrest-? secondary to or primary to arrest, likely secondary to arrest, type 2 demand infarct, as no significant uptrend and now downtrended to negative 9. Resp failure-s/p extubation 10. CVA-Acute by MRI 11.Groin wound now post-op s/p groin exploration/ligation of leaking lymphatics with placement of VAC - vascular follows 12. Loose stools RAJI BROWNE MD Dec 31, 2018 10:37
--- NOTE | 2018-12-31 14:49 | PN ---
Date/Time of Note Date/Time of Note DATE: 12/31/18 TIME: 14:48 Objective Vitals Vital Signs Date Temp Pulse Resp B/P (MAP) Pulse Ox O2 O2 Flow FiO2 Time Delivery Rate 12/31/18 98.3 93 18 148/70 100 Room Air 14:36 (96) Intake and Output 12/30/18 12/30/18 12/31/18 1515:00 23:00 07:00 IntakeIntake Total 1200 ml OutputOutput Total 0 ml 0 ml BalanceBalance 1200 ml 0 ml Results Result Diagram: 12/29/18 1213 Medications Medications Current Medications Ergocalciferol (Drisdol) 50,000 unit Sa PO Last administered on 12/21/18at 10:49; Admin Dose 50,000 UNIT; Start 11/09/18 at 09:00 Clonidine (Catapres) 0.1 mg Q6H PRN PO SBP>160 Last administered on 12/29/18at 20:32; Admin Dose 0.1 MG; Start 11/04/18 at 09:00 IV Flush (NS 3 ml) 3 ml PER PROTOCOL IV ; Start 11/04/18 at 09:00 Ondansetron HCl (Zofran Inj) 4 mg Q6H PRN IV NAUSEA/VOMITING Last administered on 12/15/18at 16:52; Admin Dose 4 MG; Start 11/04/18 at 09:00 Acetaminophen (Tylenol Tab) 650 mg Q6H PRN PO .PAIN 1-3 OR TEMP Last administered on 12/14/18at 00:29; Admin Dose 650 MG; Start 11/04/18 at 09:00 Miscellaneous Information 1 ea NOTE XX ; Start 11/04/18 at 09:00 Glucose (Glutose) 15 gm Q15M PRN PO DECREASED GLUCOSE Last administered on 12/17/18at 06:56; Admin Dose 15 GM; Start 11/04/18 at 09:00 Glucose (Glutose) 22.5 gm Q15M PRN PO DECREASED GLUCOSE; Start 11/04/18 at 09:00 Dextrose (D50w Syringe) 25 ml Q15M PRN IV DECREASED GLUCOSE; Start 11/04/18 at 09:00 Dextrose (D50w Syringe) 50 ml Q15M PRN IV DECREASED GLUCOSE; Start 11/04/18 at 09:00 Glucagon (Glucagen) 1 mg Q15M PRN IM DECREASED GLUCOSE; Start 11/04/18 at 09:00 Glucose (Glutose) 15 gm Q15M PRN BUCCAL DECREASED GLUCOSE; Start 11/04/18 at 09:00 Miscellaneous Information Patients own medicat... BID@10,16 XX Last administered on 12/18/18 10:32; Admin Dose 1 EA; Start 11/04/18 at 16:00 Hydralazine HCl (Apresoline) 10 mg Q4H PRN IV sbp >160 Last administered on 12/28/18 20:15; Admin Dose 10 MG; Start 11/08/18 at 09:00 Atropine Sulfate (Atropine) 0.5 mg PRN PRN IV SYMPTOMATIC BRADYCARDIA; Start 11/11/18 at 23:00 Heparin Sodium (Porcine) (Heparin (5000 Units/1ml)) 5,000 unit BID SC Last administered on 12/31/18 08:00; Admin Dose 5,000 UNIT; Start 11/14/18 at 21:00 Bisacodyl (Dulcolax Supp) 10 mg DAILY PRN [place] CONSTIPATION Last administered on 11/14/18 16:43; Admin Dose 10 MG; Start 11/14/18 at 16:30 IV Flush (NS 10 ml) 10 ml PRN PRN IV FLUSH LINE; Start 11/15/18 at 15:30 Ascorbic Acid (Vitamin C) 500 mg DAILY PO Last administered on 12/31/18 08:01; Admin Dose 500 MG; Start 11/20/18 at 09:00 Zinc Sulfate (Zinc Sulfate) 220 mg DAILY PO Last administered on 12/31/18 08:01; Admin Dose 220 MG; Start 11/20/18 at 09:00 Atorvastatin Calcium (Lipitor) 80 mg QHS PO Last administered on 12/30/18 20:50; Admin Dose 80 MG; Start 11/19/18 at 21:00 Lorazepam (Ativan) 0.5 mg Q6H PRN IV anxiety/agitation Last administered on 11/22/18 19:32; Admin Dose 0.5 MG; Start 11/22/18 at 11:00 Clopidogrel Bisulfate (plaVIX) 75 mg DAILY PO Last administered on 12/31/18 08:01; Admin Dose 75 MG; Start 11/23/18 at 09:00 Haloperidol (Haldol) 5 mg Q12H PRN IM agitation Last administered on 11/22/18 19:44; Admin Dose 5 MG; Start 11/22/18 at 14:30 Polyethylene Glycol (Miralax) 17 gm DAILY PRN PO constipation Last administered on 12/06/18 06:10; Admin Dose 17 GM; Start 11/29/18 at 08:02 Aspirin (Aspirin) 81 mg DAILY PO Last administered on 12/31/18 08:01; Admin Dose 81 MG; Start 11/29/18 at 09:00 Famotidine (Pepcid) 20 mg DAILY PO Last administered on 12/31/18 08:01; Admin Dose 20 MG; Start 11/29/18 at 09:00 Senna/Docusate Sodium (Senokot-S) 1 tab BID PRN PO constipation Last administered on 12/27/18 08:21; Admin Dose 1 TAB; Start 11/29/18 at 08:30 Lisinopril (Zestril) 2.5 mg DAILY PO Last administered on 12/29/18 08:16; Admin Dose 2.5 MG; Start 12/03/18 at 09:00 Furosemide (Lasix) 20 mg DAILY@0600 PO Last administered on 12/30/18 06:11; Admin Dose 20 MG; Start 12/04/18 at 10:30 Insulin Aspart (Novolog Insulin Pen) NOVOLOG *MODERATE* ALGORITHM WITH MEALS BEDTIME SC Last administered on 12/31/18 12:07; Admin Dose 4 UNIT; Start 12/08/18 at 21:00 Simethicone (Mylicon) 80 mg Q6H PRN PO DISTENSION/GAS/BLOATING; Start 12/13/18 at 17:30 Tramadol HCl (Ultram) 50 mg Q6H PRN PO MODERATE PAIN LEVEL 4-6 Last administered on 12/31/18 05:27; Admin Dose 50 MG; Start 12/14/18 at 17:00 Lactobacillus Acidophilus/ Rhamnosus (Culturelle) 1 cap BID PO Last administered on 12/31/18 08:01; Admin Dose 1 CAP; Start 12/15/18 at 23:30 Loperamide HCl (Imodium Cap) 2 mg Q6H PRN PO DIARRHEA; Start 12/17/18 at 15:00 Insulin Glargine (Lantus) 45 units DAILY@0800 SC Last administered on 12/31/18at 08:00; Admin Dose 45 UNITS; Start 12/26/18 at 10:00 Quetiapine Fumarate (Seroquel) 12.5 mg QHS PO Last administered on 12/30/18at 20:50; Admin Dose 12.5 MG; Start 12/28/18 at 21:00 Gabapentin (Gabapentin) 300 mg BID PO Last administered on 12/31/18at 08:01; Admin Dose 300 MG; Start 12/29/18 at 21:00 Metformin HCl (Glucophage) 500 mg BID WITH MEALS PO ; Start 12/31/18 at 18:05; Status UNV Repaglinide (Prandin) 1 mg WITH MEALS PO ; Start 12/31/18 at 17:35; Status UNV VTE Prophylaxis Risk score (from [facility] [place])>0 risk: 5 SCD applied (from [facility] [place]): No SCD contraindication: other Lines/Catheters IV Catheter Type: Vora in Place: No Assessment/Plan Hospital Course Subjective Patient doing well, no acute complaints Objective Physical exam General: Patient is laying in bed responding to questions appropriately Mentation: Patient is alert and oriented Head: Normocephalic atraumatic Eyes: EOMI, pupils reactive to light Neck: Supple, nontender, midline Respiratory: Coarse to auscultation bilaterally Cardiovascular: regular rate, no obvious murmurs Gastrointestinal: non-tender to palpation, bowel sounds heard. Neurological: Moves all extremities spontaneously Skin: No new skin lesions, surgical site bandaged, CDI Assessment/Plan 1. Drainage from surgical site and groin area- stable - continue wound vac with dressing changes twice a week - s/p surgical exploration the ground surgical site, graft did not need to be replaced, lymph drainage cleaned up by vascular surgeon - completed course of IV antibiotics. appreciate ID consultation 2. 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 no further procedures scheduled at this time. will need to follow up as outpatient 3. Left frontal CVA- stable - Neurology consultation appreciated - continue on aspirin and Plavix and statin 4. left-sided internal carotid artery stenosis - 25% per CT angiogram, continue aspirin, statin, Plavix per vascular surgeon 5. h/o Cardiac arrest s/p ROSC - Cardiology on board and appreciate recommendations - ECHO with preserved EF 6. Severe peripheral vascular disease - s/p left femoral endarterectomy, iliofemoral bypass and femoral to posterior tibial bypass done on November 08, 2018 - Vascular surgery consultation appreciated. Continue aspirin and Plavix 7. Diabetes Mellitus - A1c noted - metformin dc'd due to intolerance, however uncertain if this was due to an antibiotic before or actually metformin will reattempt metformin -We will stop mealtime insulin and attempt dosing of glipizide with Prandin for now 8. Acute kidney injury- resolved - nephrology consultation appreciated 9. Essential HTN - Continue home medications at this time as tolerated 10. Peripheral neuropathy - cont. gabapentin 11. HLD - On statin 12. Chronic anemia - Stable H&H. Monitor - no need for transfusions at this time 13. Disposition -Patient doing much better, wound VAC will be discontinued soon, diabetic medications will be adjusted and will be confirmed before discharge with home health wound care at home with physical therapy. - weaning off Seroquel since back to baseline and no signs of hospital delirium FRANTZ SCHWAB Dec 31, 2018 14:49
[2018-12-31] MEDS: metFORMIN 500 MG TAB PO SCH (17:16)
[2018-12-31] MEDS: REPAGLINIDE 1 MG TAB PO SCH (17:17)
[2018-12-31] MEDS: ATORVASTATIN 80 MG TAB PO SCH (20:49)
[2018-12-31] MEDS: QUETIAPINE 25 MG TAB PO SCH (20:50)
[2018-12-31] MEDS: hydrALAzine 20 MG INJ IV PRN (22:11)
[2019-01-01 02:05] VITALS: BP 92/54; PULSE 102; RESP 18
[2019-01-01 02:30] VITALS: BP 125/61; PULSE 96
[2019-01-01] MEDS: FUROSEMIDE 20 MG TAB PO SCH (05:46)
[2019-01-01 08:00] VITALS: BP 105/61; PULSE 98; RESP 16
[2019-01-01] MEDS: INSULIN ASPART [NOVOLOG] 3 ML PEN SC SCH ×4 (08:00→20:11)
[2019-01-01] MEDS: INSULIN GLARGINE [LANTus] (100 UNITS/ML) SYG SC SCH (08:27)
[2019-01-01] MEDS: HEPARIN 5,000 UNIT/1 ML VIAL SC SCH ×2 (08:28→20:12)
[2019-01-01] MEDS: metFORMIN 500 MG TAB PO SCH ×2 (08:31→17:31)
[2019-01-01] MEDS: LACTOBACILLUS RHAMNOSUS CAP PO SCH ×2 (08:32→20:09)
[2019-01-01] MEDS: ASCORBIC ACID 500 MG TAB PO SCH (08:32)
[2019-01-01] MEDS: ASPIRIN 81 MG TAB PO SCH (08:32)
[2019-01-01] MEDS: REPAGLINIDE 1 MG TAB PO SCH ×3 (08:32→17:32)
[2019-01-01] MEDS: CLOPIDOGREL 75 MG TAB PO SCH (08:32)
[2019-01-01] MEDS: ZINC SULFATE 220 MG CAP PO SCH (08:32)
[2019-01-01] MEDS: FAMOTIDINE 20 MG TAB PO SCH (08:33)
[2019-01-01] MEDS: GABAPENTIN 300 MG/6 ML PO SCH ×2 (08:33→20:09)
[2019-01-01] MEDS: LISINOPRIL 5 MG TAB PO SCH (10:30)
[2019-01-01 14:00] VITALS: BP 90/53; PULSE 109; RESP 16
--- NOTE | 2019-01-01 14:46 | CONS ---
Assessment/Plan Assessment/Plan Hospital Course (Demo Recall) IMPRESSION: 1. Preoperative evaluation prior to possible need for peripheral revascularization surgery.-neg trop x 3 and NL EF by echo with no sig valve abnl. Echo repeat 11/13 with NL EF 2. Peripheral arterial disease with nonhealing gangrenous changes in left toe ulceration. 3. Hypertension-now tolerating low dose ACEI but with very labile overall 4. Dyslipidemia. 5. Diabetes mellitus. 6. s/p cardiopulmonary arrest 7. Bradycardic intermittent by tele-now resolved 8. Positive troponin after arrest-? secondary to or primary to arrest, likely secondary to arrest, type 2 demand infarct, as no significant uptrend and now downtrended to negative 9. Resp failure-s/p extubation 10. CVA-Acute by MRI 11.Groin wound now post-op s/p groin exploration/ligation of leaking lymphatics with placement of VAC 12. Loose stools Recc: -Now on med-surg -Continue asa/plavix/statin for cva -serial ecg's -s/p abx course, f/u bld cx's and exam -local wound care -follow volume status closely on daily PO lasix -follow MS closely -Continue now zestril mononotherapy at reduced dose as tolerated and follow marginal BP closely Consultation Date/Type/Reason Admit Date/Time Nov 04, 2018 at 07:34 Initial Consult Date 11/06/18 Type of Consult Cardiology Reason for Consultation Preop Requesting Provider: KARL WOOD MD Date/Time of Note DATE: 01/01/19 TIME: 14:45 Exam/Review of Systems Vital Signs Vitals Vital Signs Date Temp Pulse Resp B/P (MAP) Pulse Ox O2 O2 Flow FiO2 Time Delivery Rate 01/01/19 97.9 109 16 90/53 (65) 99 14:00 12/31/18 Room Air 14:36 Intake and Output 12/31/18 12/31/18 01/01/19 1515:00 23:00 07:00 IntakeIntake Total 840 ml 1000 ml BalanceBalance 840 ml 1000 ml Exam Exam Review of Systems: CONSTITUTIONAL: No fevers, chills. PULMONARY: No sob CARDIOVASCULAR: No chest pain/palpitations GASTROINTESTINAL: No nausea/vomiting. GENITOURINARY: No hematuria/dysuria. MUSCULOSKELETAL: No myagias/arthalgias. PSYCHIATRIC: The patient denies depression. NEUROLOGIC: No weakness Constitutional: alert Psych: no complaints Head: normocephalic ENMT: mucosa pink and moist Neck: supple, jvd (9 cm water) Respiratory: diminished breath sounds (at bases/B) Cardiovascular: regular rate and rhythm Gastrointestinal: soft, non-tender Musculoskeletal: muscle weakness (mild generalized) Extremities: edema (none), other (L foot covered by dressing) Neurological: other (No focal deficits) Labs Result Diagram: 01/01/19 0450 01/01/19 0450 Results 24hrs Laboratory Tests Test 12/31/18 17:13 12/31/18 20:47 01/01/19 01:34 01/01/19 04:50 Bedside Glucose 182 256 H 152 White Blood Count 7.8 Red Blood Count 3.45 L Hemoglobin 10.4 L Hematocrit 32.6 L Mean Corpuscular 94.5 Volume Mean Corpuscular 30.1 Hemoglobin Mean Corpuscular 31.9 L Hemoglobin Concent Red Cell 14.1 Distribution Width Platelet Count 287 Mean Platelet Volume 10.2 Immature 0.300 Granulocytes % Neutrophils % 50.5 Lymphocytes % 32.4 Monocytes % 10.4 Eosinophils % 5.4 Basophils % 1.0 Nucleated Red Blood 0.0 Cells % Immature 0.020 Granulocytes # Neutrophils # 4.0 Lymphocytes # 2.5 Monocytes # 0.8 Eosinophils # 0.4 Basophils # 0.1 Nucleated Red Blood 0.0 Cells # Sodium Level 136 Potassium Level 4.7 Chloride Level 101 Carbon Dioxide Level 30 Anion Gap 5 Blood Urea Nitrogen 31 H Creatinine 1.09 Est Glomerular Filtrat Rate mL/min Glucose Level 120 Calcium Level 8.8 Phosphorus Level 4.3 Magnesium Level 2.0 Test 01/01/19 08:20 01/01/19 12:25 Bedside Glucose 136 178 Medications Medications Current Medications Ergocalciferol (Drisdol) 50,000 unit Sa PO Last administered on 12/21/18at 10:49; Admin Dose 50,000 UNIT; Start 11/09/18 at 09:00 Clonidine (Catapres) 0.1 mg Q6H PRN PO SBP>160 Last administered on 12/29/18at 20:32; Admin Dose 0.1 MG; Start 11/04/18 at 09:00 IV Flush (NS 3 ml) 3 ml PER PROTOCOL IV ; Start 11/04/18 at 09:00 Ondansetron HCl (Zofran Inj) 4 mg Q6H PRN IV NAUSEA/VOMITING Last administered on 12/15/18at 16:52; Admin Dose 4 MG; Start 11/04/18 at 09:00 Acetaminophen (Tylenol Tab) 650 mg Q6H PRN PO .PAIN 1-3 OR TEMP Last administered on 12/14/18at 00:29; Admin Dose 650 MG; Start 11/04/18 at 09:00 Miscellaneous Information 1 ea NOTE XX ; Start 11/04/18 at 09:00 Glucose (Glutose) 15 gm Q15M PRN PO DECREASED GLUCOSE Last administered on 12/17/18at 06:56; Admin Dose 15 GM; Start 11/04/18 at 09:00 Glucose (Glutose) 22.5 gm Q15M PRN PO DECREASED GLUCOSE; Start 11/04/18 at 09: 00 Dextrose (D50w Syringe) 25 ml Q15M PRN IV DECREASED GLUCOSE; Start 11/04/18 at 09:00 Dextrose (D50w Syringe) 50 ml Q15M PRN IV DECREASED GLUCOSE; Start 11/04/18 at 09:00 Glucagon (Glucagen) 1 mg Q15M PRN IM DECREASED GLUCOSE; Start 11/04/18 at 09:00 Glucose (Glutose) 15 gm Q15M PRN BUCCAL DECREASED GLUCOSE; Start 11/04/18 at 09:00 Miscellaneous Information Patients own medicat... BID@10,16 XX Last administered on 12/18/18at 10:32; Admin Dose 1 EA; Start 11/04/18 at 16:00 Hydralazine HCl (Apresoline) 10 mg Q4H PRN IV sbp >160 Last administered on 12/31/18at 22:11; Admin Dose 10 MG; Start 11/08/18 at 09:00 Atropine Sulfate (Atropine) 0.5 mg PRN PRN IV SYMPTOMATIC BRADYCARDIA; Start 11/11/18 at 23:00 Heparin Sodium (Porcine) (Heparin (5000 Units/1ml)) 5,000 unit BID SC Last administered on 01/01/19at 08:28; Admin Dose 5,000 UNIT; Start 11/14/18 at 21:00 Bisacodyl (Dulcolax Supp) 10 mg DAILY PRN [place] CONSTIPATION Last administered on 11/14/18 16:43; Admin Dose 10 MG; Start 11/14/18 at 16:30 IV Flush (NS 10 ml) 10 ml PRN PRN IV FLUSH LINE; Start 11/15/18 at 15:30 Ascorbic Acid (Vitamin C) 500 mg DAILY PO Last administered on 01/01/19 08:32; Admin Dose 500 MG; Start 11/20/18 at 09:00 Zinc Sulfate (Zinc Sulfate) 220 mg DAILY PO Last administered on 01/01/19 08:32; Admin Dose 220 MG; Start 11/20/18 at 09:00 Atorvastatin Calcium (Lipitor) 80 mg QHS PO Last administered on 12/31/18 20:49; Admin Dose 80 MG; Start 11/19/18 at 21:00 Lorazepam (Ativan) 0.5 mg Q6H PRN IV anxiety/agitation Last administered on 11/22/18 19:32; Admin Dose 0.5 MG; Start 11/22/18 at 11:00 Clopidogrel Bisulfate (plaVIX) 75 mg DAILY PO Last administered on 01/01/19 08:32; Admin Dose 75 MG; Start 11/23/18 at 09:00 Haloperidol (Haldol) 5 mg Q12H PRN IM agitation Last administered on 11/22/18 19:44; Admin Dose 5 MG; Start 11/22/18 at 14:30 Polyethylene Glycol (Miralax) 17 gm DAILY PRN PO constipation Last administered on 12/06/18 06:10; Admin Dose 17 GM; Start 11/29/18 at 08:02 Aspirin (Aspirin) 81 mg DAILY PO Last administered on 01/01/19 08:32; Admin Dose 81 MG; Start 11/29/18 at 09:00 Famotidine (Pepcid) 20 mg DAILY PO Last administered on 01/01/19 08:33; Admin Dose 20 MG; Start 11/29/18 at 09:00 Senna/Docusate Sodium (Senokot-S) 1 tab BID PRN PO constipation Last administered on 12/27/18 08:21; Admin Dose 1 TAB; Start 11/29/18 at 08:30 Lisinopril (Zestril) 2.5 mg DAILY PO Last administered on 01/01/19 10:30; Admin Dose 2.5 MG; Start 12/03/18 at 09:00 Furosemide (Lasix) 20 mg DAILY@0600 PO Last administered on 01/01/19 05:46; Admin Dose 20 MG; Start 12/04/18 at 10:30 Insulin Aspart (Novolog Insulin Pen) NOVOLOG *MODERATE* ALGORITHM WITH MEALS BEDTIME SC Last administered on 01/01/19 12:38; Admin Dose 2 UNIT; Start 12/08/18 at 21:00 Simethicone (Mylicon) 80 mg Q6H PRN PO DISTENSION/GAS/BLOATING; Start 12/13/18 at 17:30 Tramadol HCl (Ultram) 50 mg Q6H PRN PO MODERATE PAIN LEVEL 4-6 Last administered on 12/31/18 20:53; Admin Dose 50 MG; Start 12/14/18 at 17:00 Lactobacillus Acidophilus/ Rhamnosus (Culturelle) 1 cap BID PO Last administered on 01/01/19 08:32; Admin Dose 1 CAP; Start 12/15/18 at 23:30 Loperamide HCl (Imodium Cap) 2 mg Q6H PRN PO DIARRHEA; Start 12/17/18 at 15:00 Insulin Glargine (Lantus) 45 units DAILY@0800 SC Last administered on 01/01/19 08:27; Admin Dose 45 UNITS; Start 12/26/18 at 10:00 Quetiapine Fumarate (Seroquel) 12.5 mg QHS PO Last administered on 12/31/18 20:50; Admin Dose 12.5 MG; Start 12/28/18 at 21:00 Gabapentin (Gabapentin) 300 mg BID PO Last administered on 01/01/19 08:33; Admin Dose 300 MG; Start 12/29/18 at 21:00 Metformin HCl (Glucophage) 500 mg BID WITH MEALS PO Last administered on 01/01/19 08:31; Admin Dose 500 MG; Start 12/31/18 at 18:05 Repaglinide (Prandin) 1 mg WITH MEALS PO Last administered on 01/01/19 12:35; Admin Dose 1 MG; Start 12/31/18 at 17:35 KLEVER HUNT Jan 01, 2019 14:46
--- NOTE | 2019-01-01 15:25 | PN ---
Date/Time of Note Date/Time of Note DATE: 01/01/19 TIME: 15:15 Assessment/Plan VTE Prophylaxis Risk score (from [facility] [place])>0 risk: 5 SCD applied (from [facility] [place]): No SCD contraindicated: other Pharmacological prophylaxis: heparin Lines/Catheters IV C[facility]ter Type (from [facility] [place] Urinary Cath still in place: No Assessment/Plan Assessment/Plan 1. Drainage from surgical site and groin area, stable, off of wound vac, follow up with wound care 2. Left fifth toe gangrenous ulcer s/p amputation- healed 3. Left frontal CVA,stable, on aspirin and Plavix and statin 4. left-sided internal carotid artery stenosis, 25% per CT angiogram, continue aspirin, statin, Plavix per vascular surgeon 5. h/o Cardiac arrest s/p ROSC 6. Severe peripheral vascular disease, s/p left femoral endarterectomy, iliofemoral bypass and femoral to posterior tibial bypass done on November 08, 2018, continue aspirin and Plavix 7. Diabetes Mellitus, on metformin, prandin and lantus 8. Acute kidney injury- resolved 9. Essential HTN, controlled 10. Peripheral neuropathy, on neurontin 11. HLD, on statin 12. Chronic anemia, stable H&H. Monitor 13. DVT prophylaxis: heparin 14. marketing manager for d/c planning(home health for wound care and medication coverage-prandin) Result Diagram: 01/01/19 0450 01/01/19 0450 Results 24hrs Laboratory Tests Test 12/31/18 17:13 12/31/18 20:47 01/01/19 01:34 01/01/19 04:50 Bedside Glucose 182 256 H 152 White Blood Count 7.8 Red Blood Count 3.45 L Hemoglobin 10.4 L Hematocrit 32.6 L Mean Corpuscular 94.5 Volume Mean Corpuscular 30.1 Hemoglobin Mean Corpuscular 31.9 L Hemoglobin Concent Red Cell 14.1 Distribution Width Platelet Count 287 Mean Platelet Volume 10.2 Immature 0.300 Granulocytes % Neutrophils % 50.5 Lymphocytes % 32.4 Monocytes % 10.4 Eosinophils % 5.4 Basophils % 1.0 Nucleated Red Blood 0.0 Cells % Immature 0.020 Granulocytes # Neutrophils # 4.0 Lymphocytes # 2.5 Monocytes # 0.8 Eosinophils # 0.4 Basophils # 0.1 Nucleated Red Blood 0.0 Cells # Sodium Level 136 Potassium Level 4.7 Chloride Level 101 Carbon Dioxide Level 30 Anion Gap 5 Blood Urea Nitrogen 31 H Creatinine 1.09 Est Glomerular Filtrat Rate mL/min Glucose Level 120 Calcium Level 8.8 Phosphorus Level 4.3 Magnesium Level 2.0 Test 01/01/19 08:20 01/01/19 12:25 Bedside Glucose 136 178 Subjective 24 Hr Interval Summary Free Text/Dictation afebrile Exam/Review of Systems Exam Vitals Vital Signs Date Temp Pulse Resp B/P (MAP) Pulse Ox O2 O2 Flow FiO2 Time Delivery Rate 01/01/19 97.9 109 16 90/53 (65) 99 14:00 12/31/18 Room Air 14:36 Intake and Output 12/31/18 12/31/18 01/01/19 1515:00 23:00 07:00 IntakeIntake Total 840 ml 1000 ml BalanceBalance 840 ml 1000 ml Constitutional: alert, oriented, well developed Psych: no complaints, nl mood/affect Head: normocephalic, atraumatic Eyes: nl conjunctiva, EOMI, nl lids ENMT: nl external ears & nose, nl lips & teeth, nl nasal mucosa & septum Neck: supple, non-tender Respiratory: clear to auscultation, normal air movement; No congested cough, No crackles/rales, No diminished breath sounds, No intercostal retraction, No labored breathing, No respirations, No tactile fremitus, No wheezing, No other Cardiovascular: regular rate and rhythm, nl pulses; No bruits, No diastolic murmur, No edema, No gallop, No irregular rhythm, No jugular venous distention (JVD), No murmurs/extra sounds, No rub, No systolic murmur, No S3, No S4, No other Gastrointestinal: soft, nl liver, spleen, non-tender Musculoskeletal: other (s./p left 5th toe amputation) Extremities: other (left groin wound) Neurological: COLLEGE ADMINISTRATOR II-XII intact, nl mental status, nl speech, nl strength Results Results 24hrs Laboratory Tests Test 12/31/18 17:13 12/31/18 20:47 01/01/19 01:34 01/01/19 04:50 Bedside Glucose 182 256 H 152 White Blood Count 7.8 Red Blood Count 3.45 L Hemoglobin 10.4 L Hematocrit 32.6 L Mean Corpuscular 94.5 Volume Mean Corpuscular 30.1 Hemoglobin Mean Corpuscular 31.9 L Hemoglobin Concent Red Cell 14.1 Distribution Width Platelet Count 287 Mean Platelet Volume 10.2 Immature 0.300 Granulocytes % Neutrophils % 50.5 Lymphocytes % 32.4 Monocytes % 10.4 Eosinophils % 5.4 Basophils % 1.0 Nucleated Red Blood 0.0 Cells % Immature 0.020 Granulocytes # Neutrophils # 4.0 Lymphocytes # 2.5 Monocytes # 0.8 Eosinophils # 0.4 Basophils # 0.1 Nucleated Red Blood 0.0 Cells # Sodium Level 136 Potassium Level 4.7 Chloride Level 101 Carbon Dioxide Level 30 Anion Gap 5 Blood Urea Nitrogen 31 H Creatinine 1.09 Est Glomerular Filtrat Rate mL/min Glucose Level 120 Calcium Level 8.8 Phosphorus Level 4.3 Magnesium Level 2.0 Test 01/01/19 08:20 01/01/19 12:25 Bedside Glucose 136 178 Medications Medication Current Medications Ergocalciferol (Drisdol) 50,000 unit Sa PO Last administered on 12/21/18at 10:49; Admin Dose 50,000 UNIT; Start 11/09/18 at 09:00 Clonidine (Catapres) 0.1 mg Q6H PRN PO SBP>160 Last administered on 12/29/18at 20:32; Admin Dose 0.1 MG; Start 11/04/18 at 09:00 IV Flush (NS 3 ml) 3 ml PER PROTOCOL IV ; Start 11/04/18 at 09:00 Ondansetron HCl (Zofran Inj) 4 mg Q6H PRN IV NAUSEA/VOMITING Last administered on 12/15/18at 16:52; Admin Dose 4 MG; Start 11/04/18 at 09:00 Acetaminophen (Tylenol Tab) 650 mg Q6H PRN PO .PAIN 1-3 OR TEMP Last administered on 12/14/18at 00:29; Admin Dose 650 MG; Start 11/04/18 at 09:00 Miscellaneous Information 1 ea NOTE XX ; Start 11/04/18 at 09:00 Glucose (Glutose) 15 gm Q15M PRN PO DECREASED GLUCOSE Last administered on 12/17/18 06:56; Admin Dose 15 GM; Start 11/04/18 at 09:00 Glucose (Glutose) 22.5 gm Q15M PRN PO DECREASED GLUCOSE; Start 11/04/18 at 09:00 Dextrose (D50w Syringe) 25 ml Q15M PRN IV DECREASED GLUCOSE; Start 11/04/18 at 09:00 Dextrose (D50w Syringe) 50 ml Q15M PRN IV DECREASED GLUCOSE; Start 11/04/18 at 09:00 Glucagon (Glucagen) 1 mg Q15M PRN IM DECREASED GLUCOSE; Start 11/04/18 at 09:00 Glucose (Glutose) 15 gm Q15M PRN BUCCAL DECREASED GLUCOSE; Start 11/04/18 at 09:00 Miscellaneous Information Patients own medicat... BID@10,16 XX Last administered on 12/18/18at 10:32; Admin Dose 1 EA; Start 11/04/18 at 16:00 Hydralazine HCl (Apresoline) 10 mg Q4H PRN IV sbp >160 Last administered on 12/31/18at 22:11; Admin Dose 10 MG; Start 11/08/18 at 09:00 Atropine Sulfate (Atropine) 0.5 mg PRN PRN IV SYMPTOMATIC BRADYCARDIA; Start 11/11/18 at 23:00 Heparin Sodium (Porcine) (Heparin (5000 Units/1ml)) 5,000 unit BID SC Last administered on 01/01/19 08:28; Admin Dose 5,000 UNIT; Start 11/14/18 at 21:00 Bisacodyl (Dulcolax Supp) 10 mg DAILY PRN [place] CONSTIPATION Last administered on 11/14/18at 16:43; Admin Dose 10 MG; Start 11/14/18 at 16:30 IV Flush (NS 10 ml) 10 ml PRN PRN IV FLUSH LINE; Start 11/15/18 at 15:30 Ascorbic Acid (Vitamin C) 500 mg DAILY PO Last administered on 01/01/19 08:32; Admin Dose 500 MG; Start 11/20/18 at 09:00 Zinc Sulfate (Zinc Sulfate) 220 mg DAILY PO Last administered on 01/01/19 08:32; Admin Dose 220 MG; Start 11/20/18 at 09:00 Atorvastatin Calcium (Lipitor) 80 mg QHS PO Last administered on 12/31/18at 20:49; Admin Dose 80 MG; Start 11/19/18 at 21:00 Lorazepam (Ativan) 0.5 mg Q6H PRN IV anxiety/agitation Last administered on 11/22/18 19:32; Admin Dose 0.5 MG; Start 11/22/18 at 11:00 Clopidogrel Bisulfate (plaVIX) 75 mg DAILY PO Last administered on 01/01/19 08:32; Admin Dose 75 MG; Start 11/23/18 at 09:00 Haloperidol (Haldol) 5 mg Q12H PRN IM agitation Last administered on 11/22/18 19:44; Admin Dose 5 MG; Start 11/22/18 at 14:30 Polyethylene Glycol (Miralax) 17 gm DAILY PRN PO constipation Last administered on 12/06/18 06:10; Admin Dose 17 GM; Start 11/29/18 at 08:02 Aspirin (Aspirin) 81 mg DAILY PO Last administered on 01/01/19 08:32; Admin Dose 81 MG; Start 11/29/18 at 09:00 Famotidine (Pepcid) 20 mg DAILY PO Last administered on 01/01/19 08:33; Admin Dose 20 MG; Start 11/29/18 at 09:00 Senna/Docusate Sodium (Senokot-S) 1 tab BID PRN PO constipation Last ad ministered on 12/27/18 08:21; Admin Dose 1 TAB; Start 11/29/18 at 08:30 Lisinopril (Zestril) 2.5 mg DAILY PO Last administered on 01/01/19 10:30; Admin Dose 2.5 MG; Start 12/03/18 at 09:00 Furosemide (Lasix) 20 mg DAILY@0600 PO Last administered on 01/01/19 05:46; Admin Dose 20 MG; Start 12/04/18 at 10:30 Insulin Aspart (Novolog Insulin Pen) NOVOLOG *MODERATE* ALGORITHM WITH MEALS BEDTIME SC Last administered on 01/01/19 12:38; Admin Dose 2 UNIT; Start 12/08/18 at 21:00 Simethicone (Mylicon) 80 mg Q6H PRN PO DISTENSION/GAS/BLOATING; Start 12/13/18 at 17:30 Tramadol HCl (Ultram) 50 mg Q6H PRN PO MODERATE PAIN LEVEL 4-6 Last administered on 12/31/18 20:53; Admin Dose 50 MG; Start 12/14/18 at 17:00 Lactobacillus Acidophilus/ Rhamnosus (Culturelle) 1 cap BID PO Last administered on 01/01/19 08:32; Admin Dose 1 CAP; Start 12/15/18 at 23:30 Loperamide HCl (Imodium Cap) 2 mg Q6H PRN PO DIARRHEA; Start 12/17/18 at 15:00 Insulin Glargine (Lantus) 45 units DAILY@0800 SC Last administered on 01/01/19 08:27; Admin Dose 45 UNITS; Start 12/26/18 at 10:00 Quetiapine Fumarate (Seroquel) 12.5 mg QHS PO Last administered on 12/31/18 20:50; Admin Dose 12.5 MG; Start 12/28/18 at 21:00 Gabapentin (Gabapentin) 300 mg BID PO Last administered on 01/01/19 08:33; Admin Dose 300 MG; Start 12/29/18 at 21:00 Metformin HCl (Glucophage) 500 mg BID WITH MEALS PO Last administered on 08:31; Admin Dose 500 MG; Start 12/31/18 at 18:05 Repaglinide (Prandin) 1 mg WITH MEALS PO Last administered on 01/01/19 12:35; Admin Dose 1 MG; Start 12/31/18 at 17:35 AZUL MERA MD Jan 01, 2019 15:25
[2019-01-01] MEDS: ATORVASTATIN 80 MG TAB PO SCH (20:09)
[2019-01-01] MEDS: traMADol 50 MG TAB PO PRN (20:22)
[2019-01-01 20:31] VITALS: BP 133/75; PULSE 104; RESP 18
[2019-01-02 01:54] VITALS: BP 108/58; PULSE 97; RESP 20
[2019-01-02 08:00] VITALS: BP 140/65; PULSE 91; RESP 16
[2019-01-02] MEDS: INSULIN ASPART [NOVOLOG] 3 ML PEN SC SCH ×3 (08:00→17:23)
[2019-01-02] MEDS: FAMOTIDINE 20 MG TAB PO SCH (08:29)
[2019-01-02] MEDS: REPAGLINIDE 1 MG TAB PO SCH ×3 (08:29→17:22)
[2019-01-02] MEDS: ASCORBIC ACID 500 MG TAB PO SCH (08:29)
[2019-01-02] MEDS: GABAPENTIN 300 MG/6 ML PO SCH (08:29)
[2019-01-02] MEDS: ASPIRIN 81 MG TAB PO SCH (08:29)
[2019-01-02] MEDS: ZINC SULFATE 220 MG CAP PO SCH (08:29)
[2019-01-02] MEDS: CLOPIDOGREL 75 MG TAB PO SCH (08:29)
[2019-01-02] MEDS: metFORMIN 500 MG TAB PO SCH ×2 (08:29→17:22)
[2019-01-02] MEDS: LACTOBACILLUS RHAMNOSUS CAP PO SCH (08:29)
[2019-01-02] MEDS: INSULIN GLARGINE [LANTus] (100 UNITS/ML) SYG SC SCH (08:30)
[2019-01-02] MEDS: HEPARIN 5,000 UNIT/1 ML VIAL SC SCH (08:31)
[2019-01-02 14:00] VITALS: BP 128/69; PULSE 103; RESP 16
--- NOTE | 2019-01-02 15:11 | DS ---
Date/Time of Note Date/Time of Note DATE: 01/02/19 TIME: 14:51 Discharge Summary Admission/Discharge Info Admit Date/Time Nov 04, 2018 at 07:34 Discharge Date/Time Discharge Diagnosis 1. Drainage from surgical site and groin area, stable, follow up with wound care 2. Left fifth toe gangrenous ulcer s/p amputation- healed 3. Left frontal CVA,stable, on aspirin and Plavix and statin 4. left-sided internal carotid artery stenosis, 25% per CT angiogram, continue aspirin, statin, Plavix per vascular surgeon 5. h/o Cardiac arrest s/p ROSC 6. Severe peripheral vascular disease, s/p left femoral endarterectomy, iliofemoral bypass and femoral to posterior tibial bypass done on November 08, 2018, continue aspirin and Plavix 7. Diabetes Mellitus, on metformin, prandin and lantus 8. Acute kidney injury- resolved 9. Essential HTN, controlled 10. Peripheral neuropathy, on neurontin 11. HLD, on statin 12. Chronic anemia, stable H&H. Monitor 13. DVT prophylaxis: heparin 14. design project manager for d/c planning(home health for wound care and medication coverage-prandin) Patient Condition: Stable Hospital Course This is a 72-year-old Kazakh-speaking male with a past medical history of type 2 diabetes, Dyslipidemia, peripheral arterial disease, hypertension, diabetic neuropathy, left second toe amputation, chronic left fifth toe ulcer, presented to the emergency room with worsening left fifth toe ulcers. Patient was apparently admitted at [facility] where he was treated with IV antibiotics and was sent home. However, patient's wound did not get improved and he started to notice exposed bone with development of gangrene. Patient denied numbness, tingling, fever, chills, dizziness, headache, chest pain, palpitation, nausea, vomiting, abdominal pain, diarrhea, constipation or other constitutional symptoms. Patient got Left femoral endarterectomy, left iliofemoral bypass, left femoral to posterior tibial bypass using in situ greater saphenous vein on 10/30/2018. Patient was doing well after the surgery till 11/11/2018 when patient developed bradycardia that asystole. patient was intubated. Troponin was mildly elevated to 0.6 that is considered cardiac arrest and CPR related. Along with treatment, patient got extubated. Patient has been having no arrhythmia or respiratory distress. He developed Left groin lymphatic leak, infection status post iliofemoral and fem-pop bypass, that he got Left groin exploration, ligation of multiple leaking lymphatics and VAC placement. Wound Vac that is discontinued on 12/30/2018. Patient will get home health for wound care. Patient got left 5th digit amputation excisional debridement of left foot on 11/22/2018. The wound is healing well. He will follow up with inside sales for this. Home Meds Active Scripts Repaglinide* (Prandin*) 1 Mg Tablet, 1 MG PO WITH MEALS for 30 Days, TAB Prov:AZUL MERA MD 01/02/19 Metformin* (Glucophage*) 500 Mg Tab, 500 MG PO BID WITH MEALS for 30 Days, TAB Prov:AZUL MERA MD 01/02/19 Insulin Aspart* (Novolog Insulin Pen*) 100 Unit/Ml Soln, 0 UNIT SC WITH MEALS BEDTIME for 30 Days Prov:AZUL MERA MD 01/02/19 [Insulin Glargine] 100 UNITS/ML SOLN No Conflict Check, 45 UNITS SC DAILY@0800 for 30 Days Prov:AZUL MERA MD 01/02/19 Atorvastatin* (Atorvastatin*) 80 Mg Tablet, 80 MG PO QHS for 30 Days, TAB Prov:AZUL MERA MD 01/02/19 Silver Sulfadiazine* (Silvadene*) 1% - 20 Gm Cream.gm., 1 APPLIC TOP DAILY, #1 TUB Prov:JESSIE WONG MD 06/12/18 Reported Medications Ergocalciferol (Vitamin D2) (VITAMIN D2) 50,000 Unit Capsule, 58960 UNIT PO weekly for saturdays, CAP 11/04/18 Omeprazole* (Omeprazole*) 20 Mg Capsule., 20 MG PO DAILY, #30 CAP 11/04/18 Aspirin* (Aspirin* EC) 81 Mg Tablet., 81 MG PO DAILY, TAB 11/04/18 Gabapentin* (Gabapentin*) 300 Mg Capsule, 300 MG PO BID, #60 CAP 11/04/18 Discontinued Reported Medications Insulin Aspart (Novolog Mix (70/30)) 100 Units/Ml Soln, 28 SC with diinner, VIAL 11/04/18 Insulin Aspart (Novolog Mix (70/30)) 100 Units/Ml Soln, 38 SC WITH BREAKFAST, VIAL 11/04/18 Benazepril Hcl* (Benazepril Hcl*) 40 Mg Tablet, 40 MG PO DAILY, #30 TAB 11/04/18 Nebivolol Hcl* (Bystolic*) 20 Mg Tablet, 20 MG PO DAILY, #30 TAB 11/04/18 Atorvastatin Calcium* (Atorvastatin Calcium*) 20 Mg Tablet, 20 MG PO QHS, #30 TAB 11/04/18 Sulfasalazine (Azulfidine) 500 Mg Tab, 1000 MG PO TID, TAB 06/02/14 Discontinued Scripts Amoxicillin-Clavulanate K* (Augmentin*) 875 Mg Tab, 875 MG PO BID, #28 TAB Prov:AMANDA GOMEZ MD 06/08/14 Follow-up Plan PCP, inside sales and vascular surgeon in one week home health for wound care Primary Care Provider Not On Staff Doctor Pending Labs Laboratory Tests Test 01/01/19 17:27 01/01/19 20:08 01/02/19 05:43 01/02/19 07:56 Bedside 303 257 106 Glucose mg/dL (70-220) mg/dL (70-220) mg/dL (70-220) Sodium Level 135 mmol/L (135-14 4) Potassium 4.3 Level mmol/L (3.5-5. 1) Chloride Level 96 mmol/L (97-110 ) Carbon Dioxide 29 Level mmol/L (21-31) Anion Gap 10 (5-13) Blood Urea 25 Nitrogen mg/dl (7-20) Creatinine 1.03 mg/dl (0.61-1. 24) Est Glomerular mL/min (>60) Filtrat Rate mL/min Glucose Level 131 mg/dl (70-220) Calcium Level 9.1 mg/dl (8.4-10. 2) Test 01/02/19 11:57 Bedside 216 Glucose mg/dL (70-220) AZUL MERA MD Jan 02, 2019 15:01
--- NOTE | 2019-01-02 18:39 | CONS ---
Assessment/Plan Assessment/Plan Hospital Course (Demo Recall) IMPRESSION: 1. Preoperative evaluation prior to possible need for peripheral revascularization surgery.-neg trop x 3 and NL EF by echo with no sig valve abnl. Echo repeat 11/13 with NL EF 2. Peripheral arterial disease with nonhealing gangrenous changes in left toe ulceration. 3. Hypertension-now tolerating low dose ACEI 4. Dyslipidemia. 5. Diabetes mellitus. 6. s/p cardiopulmonary arrest 7. Bradycardic intermittent by tele-now resolved 8. Positive troponin after arrest-? secondary to or primary to arrest, likely secondary to arrest, type 2 demand infarct, as no significant uptrend and now downtrended to negative 9. Resp failure-s/p extubation 10. CVA-Acute by MRI 11.Groin wound now post-op s/p groin exploration/ligation of leaking lymphatics with placement of VAC 12. Loose stools-resolved Recc: -Now on med-surg -Continue asa/plavix/statin for cva -s/p abx course, f/u bld cx's and exam -local wound care -follow volume status closely on daily PO lasix -follow MS closely -Resume low dose zestril and follow BP clsoely -for d/c planning Consultation Date/Type/Reason Admit Date/Time Nov 04, 2018 at 07:34 Initial Consult Date 11/06/18 Type of Consult Cardiology Reason for Consultation PAD/HTN Requesting Provider: KARL WOOD MD Date/Time of Note DATE: 01/02/19 TIME: 18:35 Exam/Review of Systems Vital Signs Vitals Vital Signs Date Temp Pulse Resp B/P (MAP) Pulse Ox O2 O2 Flow FiO2 Time Delivery Rate 01/02/19 97.8 103 16 128/69 100 14:00 (88) 12/31/18 Room Air 14:36 Intake and Output 01/01/19 01/01/19 01/02/19 1515:00 23:00 07:00 IntakeIntake Total 1680 ml 900 ml BalanceBalance 1680 ml 900 ml Exam Exam Review of Systems: CONSTITUTIONAL: No fevers, chills. PULMONARY: No sob CARDIOVASCULAR: No chest pain/palpitations GASTROINTESTINAL: No nausea/vomiting. GENITOURINARY: No hematuria/dysuria. MUSCULOSKELETAL: No myagias/arthalgias. PSYCHIATRIC: The patient denies depression. NEUROLOGIC: No weakness Constitutional: alert, oriented Head: normocephalic ENMT: mucosa pink and moist Neck: supple, jvd (9 cm water) Respiratory: clear to auscultation Cardiovascular: regular rate and rhythm Gastrointestinal: soft, non-tender Musculoskeletal: muscle tone (normal) Extremities: edema (none), other (footcovered by dressing) Labs Result Diagram: 01/01/19 0450 01/02/19 0543 Results 24hrs Laboratory Tests Test 01/01/19 20:08 01/02/19 05:43 01/02/19 07:56 01/02/19 11:57 Bedside Glucose 257 H 106 216 Sodium Level 135 Potassium Level 4.3 Chloride Level 96 L Carbon Dioxide Level 29 Anion Gap 10 # Blood Urea Nitrogen 25 H Creatinine 1.03 Est Glomerular Filtrat Rate mL/min Glucose Level 131 Calcium Level 9.1 Test 01/02/19 17:20 Bedside Glucose 165 Medications Medications Current Medications Ergocalciferol (Drisdol) 50,000 unit Sa PO Last administered on 12/21/18at 10:49; Admin Dose 50,000 UNIT; Start 11/09/18 at 09:00 Clonidine (Catapres) 0.1 mg Q6H PRN PO SBP>160 Last administered on 12/29/18 20:32; Admin Dose 0.1 MG; Start 11/04/18 at 09:00 IV Flush (NS 3 ml) 3 ml PER PROTOCOL IV ; Start 11/04/18 at 09:00 Ondansetron HCl (Zofran Inj) 4 mg Q6H PRN IV NAUSEA/VOMITING Last administered on 12/15/18at 16:52; Admin Dose 4 MG; Start 11/04/18 at 09:00 Acetaminophen (Tylenol Tab) 650 mg Q6H PRN PO .PAIN 1-3 OR TEMP Last administered on 12/14/18at 00:29; Admin Dose 650 MG; Start 11/04/18 at 09:00 Miscellaneous Information 1 ea NOTE XX ; Start 11/04/18 at 09:00 Glucose (Glutose) 15 gm Q15M PRN PO DECREASED GLUCOSE Last administered on 12/17/18 06:56; Admin Dose 15 GM; Start 11/04/18 at 09:00 Glucose (Glutose) 22.5 gm Q15M PRN PO DECREASED GLUCOSE; Start 11/04/18 at 09:00 Dextrose (D50w Syringe) 25 ml Q15M PRN IV DECREASED GLUCOSE; Start 11/04/18 at 09:00 Dextrose (D50w Syringe) 50 ml Q15M PRN IV DECREASED GLUCOSE; Start 11/04/18 at 09:00 Glucagon (Glucagen) 1 mg Q15M PRN IM DECREASED GLUCOSE; Start 11/04/18 at 09:00 Glucose (Glutose) 15 gm Q15M PRN BUCCAL DECREASED GLUCOSE; Start 11/04/18 at 09:00 Miscellaneous Information Patients own medicat... BID@10,16 XX Last administered on 12/18/18at 10:32; Admin Dose 1 EA; Start 11/04/18 at 16:00 Hydralazine HCl (Apresoline) 10 mg Q4H PRN IV sbp >160 Last administered on 12/31/18at 22:11; Admin Dose 10 MG; Start 11/08/18 at 09:00 Atropine Sulfate (Atropine) 0.5 mg PRN PRN IV SYMPTOMATIC BRADYCARDIA; Start 11/11/18 at 23:00 Heparin Sodium (Porcine) (Heparin (5000 Units/1ml)) 5,000 unit BID SC Last administered on 01/02/19at 08:31; Admin Dose 5,000 UNIT; Start 11/14/18 at 21:00 Bisacodyl (Dulcolax Supp) 10 mg DAILY PRN ID CONSTIPATION Last administered on 11/14/18at 16:43; Admin Dose 10 MG; Start 11/14/18 at 16:30 IV Flush (NS 10 ml) 10 ml PRN PRN IV FLUSH LINE; Start 11/15/18 at 15:30 Ascorbic Acid (Vitamin C) 500 mg DAILY PO Last administered on 01/02/19 08:29; Admin Dose 500 MG; Start 11/20/18 at 09:00 Zinc Sulfate (Zinc Sulfate) 220 mg DAILY PO Last administered on 01/02/19 08:29; Admin Dose 220 MG; Start 11/20/18 at 09:00 Atorvastatin Calcium (Lipitor) 80 mg QHS PO Last administered on 01/01/19at 20:09; Admin Dose 80 MG; Start 11/19/18 at 21:00 Lorazepam (Ativan) 0.5 mg Q6H PRN IV anxiety/agitation Last administered on 11/22/18 19:32; Admin Dose 0.5 MG; Start 11/22/18 at 11:00 Clopidogrel Bisulfate (plaVIX) 75 mg DAILY PO Last administered on 01/02/19 08:29; Admin Dose 75 MG; Start 11/23/18 at 09:00 Haloperidol (Haldol) 5 mg Q12H PRN IM agitation Last administered on 11/22/18 19:44; Admin Dose 5 MG; Start 11/22/18 at 14:30 Polyethylene Glycol (Miralax) 17 gm DAILY PRN PO constipation Last administered on 12/06/18 06:10; Admin Dose 17 GM; Start 11/29/18 at 08:02 Aspirin (Aspirin) 81 mg DAILY PO Last administered on 01/02/19 08:29; Admin Dose 81 MG; Start 11/29/18 at 09:00 Famotidine (Pepcid) 20 mg DAILY PO Last administered on 01/02/19 08:29; Admin Dose 20 MG; Start 11/29/18 at 09:00 Senna/Docusate Sodium (Senokot-S) 1 tab BID PRN PO constipation Last ad ministered on 12/27/18 08:21; Admin Dose 1 TAB; Start 11/29/18 at 08:30 Insulin Aspart (Novolog Insulin Pen) NOVOLOG *MODERATE* ALGORITHM WITH MEALS BEDTIME SC Last administered on 01/02/19 17:23; Admin Dose 2 UNIT; Start 12/08/18 at 21:00 Simethicone (Mylicon) 80 mg Q6H PRN PO DISTENSION/GAS/BLOATING; Start 12/13/18 at 17:30 Tramadol HCl (Ultram) 50 mg Q6H PRN PO MODERATE PAIN LEVEL 4-6 Last administered on 01/01/19 20:22; Admin Dose 50 MG; Start 12/14/18 at 17:00 Lactobacillus Acidophilus/ Rhamnosus (Culturelle) 1 cap BID PO Last administered on 01/02/19 08:29; Admin Dose 1 CAP; Start 12/15/18 at 23:30 Loperamide HCl (Imodium Cap) 2 mg Q6H PRN PO DIARRHEA; Start 12/17/18 at 15:00 Insulin Glargine (Lantus) 45 units DAILY@0800 SC Last administered on 01/02/19 08:30; Admin Dose 45 UNITS; Start 12/26/18 at 10:00 Gabapentin (Gabapentin) 300 mg BID PO Last administered on 01/02/19 08:29; Admin Dose 300 MG; Start 12/29/18 at 21:00 Metformin HCl (Glucophage) 500 mg BID WITH MEALS PO Last administered on 01/02/19 17:22; Admin Dose 500 MG; Start 12/31/18 at 18:05 Repaglinide (Prandin) 1 mg WITH MEALS PO Last administered on 01/02/19 17:22; Admin Dose 1 MG; Start 12/31/18 at 17:35 KLEVER HUNT Jan 02, 2019 18:39
[2019-01-03] MEDS ORDERED: LISINOPRIL 5 MG TAB PO SCH (09:00)
== END 2019-01-02 19:50 | disposition home health service (06) | DRG 270 ==
LOC: E/R 05:44 → PP2 07:34 → ICU 11-08 18:24 → TEL 11-09 17:04 → ICU 11-11 04:30 → TEL 11-19 20:37 → PP2 11-26 20:18
PROVIDERS: ADMIT Hospitalist; ATTEND Internal Medicine
PROC: B410YZZ Fluoroscopy of Abdominal Aorta using Other Contrast (ICD-10-PCS; 2018-11-06)
PROC: B41G1ZZ Fluoroscopy of Left Lower Extremity Arteries using Low Osmolar Contrast (ICD-10-PCS; 2018-11-06)
PROC: 041L0ZL Bypass Left Femoral Artery to Popliteal Artery, Open Approach (ICD-10-PCS; 2018-11-08)
PROC: 041J0JJ Bypass Left External Iliac Artery to Left Femoral Artery with Synthetic Substitute, Open Approach (ICD-10-PCS; principal; 2018-11-08 10:00)
PROC: 5A12012 Performance of Cardiac Output, Single, Manual (ICD-10-PCS; 2018-11-11)
PROC: 0BH18EZ Insertion of Endotracheal Airway into Trachea, Via Natural or Artificial Opening Endoscopic (ICD-10-PCS; 2018-11-11)
PROC: 5A1955Z Respiratory Ventilation, Greater than 96 Consecutive Hours (ICD-10-PCS; 2018-11-11)
PROC: 30233N1 Transfusion of Nonautologous Red Blood Cells into Peripheral Vein, Percutaneous Approach (ICD-10-PCS; 2018-11-12)
PROC: 02HV33Z Insertion of Infusion Device into Superior Vena Cava, Percutaneous Approach (ICD-10-PCS; 2018-11-15)
PROC: 0Y6Y0Z0 Detachment at Left 5th Toe, Complete, Open Approach (ICD-10-PCS; 2018-11-22)
PROC: 0JBR0ZZ Excision of Left Foot Subcutaneous Tissue and Fascia, Open Approach (ICD-10-PCS; 2018-11-22)
PROC: 07Q Lymphatic and Hemic Systems, Repair (ICD-10-PCS; 2018-12-19)
DX: E11.52 Type 2 diabetes mellitus with diabetic peripheral angiopathy with gangrene (principal); I46.9 Cardiac arrest, cause unspecified; J96.01 Acute respiratory failure with hypoxia; G92 Toxic encephalopathy; I50.31 Acute diastolic (congestive) heart failure; I21.A1 Myocardial infarction type 2; N17.9 Acute kidney failure, unspecified; E87.1 Hypo-osmolality and hyponatremia; L97.526 Non-pressure chronic ulcer of other part of left foot with bone involvement without evidence of necrosis; I70.262 Atherosclerosis of native arteries of extremities with gangrene, left leg; E87.4 Mixed disorder of acid-base balance; T81.49XA Infection following a procedure, other surgical site, initial encounter; E11.65 Type 2 diabetes mellitus with hyperglycemia; E87.5 Hyperkalemia; E11.42 Type 2 diabetes mellitus with diabetic polyneuropathy; R00.1 Bradycardia, unspecified; I89.8 Other specified noninfective disorders of lymphatic vessels and lymph nodes; I63.9 Cerebral infarction, unspecified; E11.621 Type 2 diabetes mellitus with foot ulcer; E78.5 Hyperlipidemia, unspecified; D64.9 Anemia, unspecified; R33.9 Retention of urine, unspecified; I11.0 Hypertensive heart disease with heart failure; E11.649 Type 2 diabetes mellitus with hypoglycemia without coma; H70.93 Unspecified mastoiditis, bilateral; B96.1 Klebsiella pneumoniae [K. pneumoniae] as the cause of diseases classified elsewhere; B96.3 Hemophilus influenzae [H. influenzae] as the cause of diseases classified elsewhere; Z89.421 Acquired absence of other right toe(s); Z79.4 Long term (current) use of insulin
CPT/HCPCS: 31500; 36430; 36569; 36600; 70450; 70498; 70551; 71045; 71250; 73718; 74018; 75630; 76604; 76775; 76937; 80048; 80053; 80061; 80069; 81001; 82040; 82140; 82550; 82553; 82803; 82962; 83036; 83735; 84100; 84132; 84484; 85014; 85018; 85025; 85049; 85378; 85610; 85651; 85670; 85730; 86140; 86850; 86900; 86901; 86920; 87070; 87075; 87081; 87086; 87102; 87116; 87177; 88304; 88305; 88311; 92523; 92526; 92610; 92950; 93005; 93306; 93308; 93880; 93922; 93970; 94002; 94003; 94640; 94770; 97110; 97116; 97162; 97164; 97530; C1768; C1769; C1894; J0171; J0282; J0360; J0690; J0696; J1120; J1200; J1450; J1630; J1644; J1815; J1817; J1940; J2060; J2185; J2250; J2270; J2274; J2370; J2405; J2543; J2710; J2765; J2920; J3010; J3370; J3475; J7030; J7040; J7042; J7050; J7120; P9016; P9045; Q9967